=== PATIENT | male | born 1960 | race Caucasian/White ===

== ENCOUNTER → 2017-10-07 11:11 | Outpatient (CLI) | payer MEDICARE, SELFPAY ==
--- NOTE | 2017-10-07 11:21 | XR_ITS ---
XR shoulder RT min 2V HISTORY: ITS.REASON: RT SHOULDER PAIN ORDERING PHYSICIAN: Yoel Masterson MD PATIENT AGE: 57 years Comparison: None FINDINGS: No fracture or dislocation. No lytic or blastic change. There is normal mineralization. The joint spaces are well-preserved. No significant degenerative/arthritic changes. No erosive changes evident. IMPRESSION: Negative, no acute finding
--- NOTE | 2017-10-07 11:21 | XR_ITS ---
EXAM: XR cervical spine 5V HISTORY: Neck pain radiating into the right shoulder ITS.REASON: RT SHOULDER PAIN ORDERING PHYSICIAN: Yoel Masterson MD PATIENT AGE: 57 years FINDINGS: There is normal alignment. There is degenerative disc disease at C5-C6 and C6-C7. C7 is not well delineated due to overlying soft tissues. Is mild foraminal narrowing on the right C5-C6 from uncovertebral and facet hypertrophy and on the left at C3-C4 C4-C5 and C5-C6 from facet and uncovertebral hypertrophy. Calcification is present posterior and superior to the C7 spinous process. No obvious fracture or dislocation. No lytic or blastic change. No evidence of cervical rib. Carotid artery calcifications are present. IMPRESSION: Degenerative disc disease with facet arthritic changes as described above with foraminal narrowing on the right at C5-C6 and on the left from C3 to C6.
== END ==
PROVIDERS: PCP Pain Medicine Interventional Pain Medicine; Visit Provider Pain Medicine Interventional Pain Medicine
DX: M25.511 Pain in right shoulder (principal)
CPT/HCPCS: 72050; 73030

== ENCOUNTER 2018-01-21 08:00 | Outpatient (RCR) | payer MEDICARE, SELFPAY | END 2018-01-21 08:01 | disposition home or self-care (01) | LOC: PT 08:00 | PROVIDERS: PCP Pain Medicine Interventional Pain Medicine; Visit Provider Orthopaedic Surgery | DX: M50.323 Other cervical disc degeneration at C6-C7 level (principal) | CPT/HCPCS: 97012; 97014; 97110; 97163; G0283 ==

== ENCOUNTER → 2018-05-05 11:01 | Outpatient (CLI) | payer MEDICARE, SELFPAY ==
--- NOTE | 2018-05-05 11:06 | XR_ITS ---
XR chest 2V HISTORY: ITS.REASON: COUGH,LLLRALES, smoker ORDERING PHYSICIAN: Darnell Elizabeth MD PATIENT AGE: 58 years COMPARISON: 04/22/2018 FINDINGS: Unremarkable cardiovascular structures. No lobar consolidation or collapse. There are old bilateral rib fractures. No acute bony findings. IMPRESSION: No change no acute finding
== END ==
PROVIDERS: PCP Internal Medicine; Visit Provider Internal Medicine
DX: R05 Cough (principal); R09.89 Other specified symptoms and signs involving the circulatory and respiratory systems
CPT/HCPCS: 71046

== ENCOUNTER 2019-11-27 12:58 | Emergency (ER) | payer MEDICARE, SELFPAY ==
[2019-11-27 12:59] VITALS: RESP 18; O2SAT 97; BMI 31.5
--- NOTE | 2019-11-27 13:03 | CT_ITS ---
PROCEDURE: CT HEAD/BRAIN WO CON CLINICAL INDICATION: NUMBNESS Right-sided facial numbness COMPARISON: No exams were available for comparison TECHNIQUE: Axial images obtained. All CT scans at the facility use one or more dose reduction, viz: automated exposure control, ma/kV adjustment per patient size (including targeted exams where dose is matched to indication, i.e. head), or iterative reconstruction technique. FINDINGS: No midline shift, mass effect, intracranial hemorrhage, hydrocephalus, or extra-axial fluid collection is evident. There is generalized atrophy with hypoattenuation of the periventricular white matter consistent with microangiopathic changes.. There are encephalomalacia changes in the right temporal lobe and there is an old right basal ganglia lacunar infarction. The calvarium has an unremarkable appearance. Prior right mastoid surgery no sinus air-fluid level. IMPRESSION: 1. No acute intracranial findings. 2. Chronic ischemic changes with old right-sided basal ganglia rib lacunar infarction and encephalomalacia change in the right temporal lobe Dictated by: Ronnie Rojo MD 11/27/2019 13:18 Electronically signed by Ronnie Rojo MD in [place] 11/27/2019 13:18
--- NOTE | 2019-11-27 13:05 | PC.NURSE ---
Pt to CT
--- NOTE | 2019-11-27 13:09 | XR_ITS ---
PROCEDURE: XR CHEST PORTABLE CLINICAL HISTORY: NUMBNESS Weakness, fatigue, smoker COMPARISON: CXR2V XR chest 2V from 04/22/2018 CXR2V XR chest 2V from 05/05/2018 FINDINGS: Prior CABG. Borderline cardiomegaly without failure. The lungs are clear without infiltrates, suspicious nodules, or pleural effusions. Old left-sided rib fractures IMPRESSION: No acute findings. Dictated by: Ronnie Rojo MD 11/27/2019 13:19 Electronically signed by Ronnie Rojo MD in [place] 11/27/2019 13:19
[2019-11-27 13:11] LABS: Basophils # 0.1 K/mm3 (0-0.2); Basophils % 0.5 % (0.1-2.0); Eosinophils # 0.2 K/mm3 (0.0-0.4); Eosinophils % 2.6 % (0.1-12.0); Hematocrit 49.9 % (42.0-52.0); Hemoglobin 17.3 g/dL (14.1-18.0); Lymphocytes # 1.9 K/mm3 (0.7-4.5); Lymphocytes % 21.1 % (10-50); Mean Corpuscular HGB Conc 34.6 g/dL (31.8-35.4); Mean Corpuscular Hemoglobin 31.8 pg (27.0-31.2); Mean Corpuscular Volume 91.8 fl (80-94); Mean Platelet Volume 10.1 fl (7.4-10.4); Monocytes # 0.5 K/mm3 (0.1-1.0); Monocytes % 5.8 % (1.7-9.3); Neutrophils # 6.4 K/mm3 (1.8-7.8); Platelet Count 178 K/mm3 (142-424); Red Blood Count 5.44 M/mm3 (4.60-6.20); Red Cell Distribution Width 13.9 % (11.5-17.5); White Blood Count 9.1 K/mm3 (4.8-10.8)
[2019-11-27 13:16] LABS: Chloride 106 mmol/L (98-107); Potassium 3.5 mmoL/L (3.5-5.1); Sodium 141 mmol/L (136-145)
[2019-11-27 13:18] LABS: Alanine Aminotransferase 23 U/L (12-78); Aspartate Amino Transferase 25 U/L (17-59); Blood Urea Nitrogen 13 mg/dl (9-20); Creatinine Clearance Estimated 142 mL/min (50-200); Estimated Glomerular Filt Rate 99 ml/min (>60); GFR (African American) 120 ML/MIN (>60)
[2019-11-27 13:19] LABS: Albumin Level 4.7 g/dl (3.5-5.0); Albumin/Globulin Ratio 1.5 (1.1-1.8); Alkaline Phosphatase 66 U/L (38-126); Anion Gap 12.5 mEq/L (5-15); Bilirubin,Total 0.6 mg/dl (0.2-1.3); Calcium 9.6 mg/dl (8.4-10.2); Carbon Dioxide 26 mmol/L (22.0-30.0); Globulin 3.2 g/dL (1.3-3.2); Glucose 180 mg/dl (74-100); Total Protein,Serum 7.9 g/dl (6.3-8.2)
--- NOTE | 2019-11-27 13:25 | HMH.EDGENADL ---
ED Disposition Clinical Impression: Neck pain Headache Qualifiers: Headache type: unspecified Headache chronicity pattern: acute headache Intractability: not intractable Qualified Code(s): R51 - Headache Disposition: Home, Self-Care Condition on Discharge: Good Instructions: DI for Neck Pain, DI for Headache Additional Instructions: Return to the emergency department if symptoms return or new symptoms such as numbness or weakness of the extremities, difficulty speaking, or visual disturbance. - Critical Care Critical Care Time: No Attestation: On , the high probability of a clinically significant, sudden or life threatening deterioration of the following system(s) required my full and direct attention, intervention and personal management. The time I documented below is in addition to time spent performing reported procedures but includes the following listed in this critical care notation. Medical Decision Making - George Inquiry Pt receiving controlled substance: No Vital Signs: 11/27/19 12:59 Respiratory Rate 18 02 Sat by Pulse Oximetry 97 Oxygen Delivery Method Room Air - Lab Data Lab Results 11/27/19 13:03: WBC 9.1, RBC 5.44, Hgb 17.3, Hct 49.9, MCV 91.8, MCH 31.8 H, MCHC 34.6, RDW 13.9, Plt Count 178, MPV 10.1, Neut % (Auto) 70.0, Lymph % (Auto) 21.1, Rankin % (Auto) 5.8, Eos % (Auto) 2.6, Baso % (Auto) 0.5, Neut # (Auto) 6.4, Lymph # (Auto) 1.9, Rankin # (Auto) 0.5, Eos # (Auto) 0.2, Baso # (Auto) 0.1 11/27/19 13:03: Sodium 141, Potassium 3.5, Chloride 106, Carbon Dioxide 26, Anion Gap 12.5, BUN 13, Creatinine 0.80, Estimated Creat Clear 142, Estimated GFR 99, Est GFR ( Amer) 120, Glucose 180 H, Calcium 9.6, Total Bilirubin 0.6, AST 25, ALT 23, Alkaline Phosphatase 66, Troponin I < 0.01, Total Protein 7.9, Albumin 4.7, Globulin 3.2, Albumin/Globulin Ratio 1.5 11/27/19 13:06: PT 11.0, INR 1.08, APTT 23.0 L Result diagrams: 11/27/19 13:03 11/27/19 13:03 Orders (Tests/Meds): ORDERS Category Date Time Status Troponin I Q3H Lab 11/27/19 16:15 Ordered Troponin I Q3H Lab 11/27/19 19:15 Ordered - Radiology Data #1 Image(s): Chest Image Reviewed: Yes I have reviewed radiologist's interpretation Preliminary Findings: Normal/NAD - CT Data CT Scan: Head Time Received: 13:[address] Reviewed: Yes: I have viewed the radiologist's interpretation Findings Narrative: PROCEDURE: CT HEAD/BRAIN WO CON CLINICAL INDICATION: NUMBNESS Right-sided facial numbness COMPARISON: No exams were available for comparison TECHNIQUE: Axial images obtained. All CT scans at the facility use one or more dose reduction, viz: automated exposure control, ma/kV adjustment per patient size (including targeted exams where dose is matched to indication, i.e. head), or iterative reconstruction technique. FINDINGS: No midline shift, mass effect, intracranial hemorrhage, hydrocephalus, or extra-axial fluid collection is evident. There is generalized atrophy with hypoattenuation of the periventricular white matter consistent with microangiopathic changes.. There are encephalomalacia changes in the right temporal lobe and there is an old right basal ganglia lacunar infarction. The calvarium has an unremarkable appearance. Prior right mastoid surgery no sinus air-fluid level. IMPRESSION: 1. No acute intracranial findings. 2. Chronic ischemic changes with old right-sided basal ganglia rib lacunar infarction and encephalomalacia change in the right temporal lobe Dictated by: Ronnie Rojo MD 11/27/2019 13:18 Electronically signed by Ronnie Rojo MD in [place] 11/27/2019 13:18 - ECG Data Tracing #1 EKG interpreted by Jhonny Ibrahim MD: Rhythm: sinus Rate: 81 [place]: Left Ectopy: none Conduction: normal ST Segment Changes: none T Wave Changes: none Q Waves: none Poor R wave progression LVH Baseline artifact and wander present, but I consider the EKG terrance
--- NOTE | 2019-11-27 13:29 | ECG_ITS ---
APPROVED REPORT Exam: Resting ECG HR:81 bpm ECG Measurements Heart Rate 81 AXES IN 146 P 73 QRSd 92 QRS -64 QT 384 T -84 QTc 446 <Conclusion> Normal sinus rhythm Left anterior fascicular block Moderate voltage criteria for LVH, may be normal variant Nonspecific ST and T wave abnormality Abnormal ECG Electronically signed by : Og Metzger, 11/27/2019 17:51:16
[2019-11-27 13:36] LABS: Troponin I < 0.01 ng/ml (0.00-0.034)
[2019-11-27 13:37] LABS: INR 1.08 (0.9-1.1)
[2019-11-27 14:13] VITALS: BP 142/85; PULSE 80; RESP 18; TEMP 36.8; O2SAT 99
[2019-12-16 09:32] LABS: POC Glucose,Bedside 165 (70-110)
== END 2019-11-27 14:14 | disposition home or self-care (01) ==
PROVIDERS: Emergency Provider Emergency Medicine; PCP Internal Medicine
DX: M54.2 Cervicalgia (principal); R51 Headache; E11.9 Type 2 diabetes mellitus without complications; E78.5 Hyperlipidemia, unspecified; I10 Essential (primary) hypertension; F17.210 Nicotine dependence, cigarettes, uncomplicated; Z86.73 Personal history of transient ischemic attack (TIA), and cerebral infarction without residual deficits; Z95.1 Presence of aortocoronary bypass graft; D68.9 Coagulation defect, unspecified
CPT/HCPCS: 70450; 71045; 80053; 82962; 84484; 85025; 85610; 85730; 93005; 99283

== ENCOUNTER 2020-04-18 19:15 | Emergency (ER) | payer MEDICARE, SELFPAY ==
--- NOTE | 2020-04-18 19:14 | ECG_ITS ---
APPROVED REPORT Exam: Resting ECG HR:84 bpm ECG Measurements Heart Rate 84 AXES OR 162 P 54 QRSd 96 QRS -66 QT 400 T 77 QTc 472 Conclusion Normal sinus rhythm Left atrial abnormality Left anterior fascicular block Left ventricular hypertrophy Prolonged QT Abnormal ECG Electronically signed by : Claudy Bush, 04/20/2020 10:21:26
[2020-04-18 19:16] VITALS: BP 188/110; PULSE 81; RESP 19; TEMP 36.7; O2SAT 97; BMI 33.2
--- NOTE | 2020-04-18 19:21 | XR_ITS ---
PROCEDURE: XR CHEST 2V CLINICAL HISTORY: chest pain COMPARISON: CR CXR2V XR chest 2V from 04/22/2018 DX CXR2V XR chest 2V from 05/05/2018 CR XR CHEST PORTABLE from 11/27/2019 FINDINGS: Borderline cardiomegaly without failure. There has been a prior median sternotomy with atrial appendage clipping. The lungs are clear without infiltrates, suspicious nodules, or pleural effusions. There are multiple old left-sided rib fractures. IMPRESSION: As above, no change no acute finding Dictated by: Ronnie Rojo MD 04/19/2020 05:28 Ronnie Rojo MD in [place] 04/19/2020 05:28
--- NOTE | 2020-04-18 19:25 | CT_ITS ---
PROCEDURE: CT HEAD/BRAIN WO CON CLINICAL INDICATION: headache Severe headache with dizziness COMPARISON: CT CT HEAD/BRAIN WO CON from 11/27/2019 TECHNIQUE: Axial images obtained. All CT scans at the facility use one or more dose reduction, viz: automated exposure control, ma/kV adjustment per patient size (including targeted exams where dose is matched to indication, i.e. head), or iterative reconstruction technique. FINDINGS: No midline shift, mass effect, intracranial hemorrhage, hydrocephalus, or extra-axial fluid collection is evident. There are encephalomalacia changes in the right temporal lobe. There is an old lacunar infarction in the right internal capsule. Postsurgical changes from right mastoidectomy. Mild mucosal thickening right ethmoid sinus. IMPRESSION: 1. No acute intracranial findings. 2. Chronic changes as described above Dictated by: Ronnie Rojo MD 04/19/2020 11:48 Ronnie Rojo MD in [place] 04/19/2020 11:48
--- NOTE | 2020-04-18 19:26 | CT_ITS ---
PROCEDURE: CT ANGIO CHEST CLINCIAL INDICATION: chest pain, time for dissection, chest pain and dizziness, evaluate for dissection COMPARISON: No exams were available for comparison TECHNIQUE: IV Contrast: 70ML Isovue 370 Axial images obtained with sagittal and coronal reformats. All CT scans at the facility use one or more dose reduction, viz: automated exposure control, ma/kV adjustment per patient size (including targeted exams where dose is matched to indication, i.e. head), or iterative reconstruction technique. FINDINGS: No evidence of pulmonary emboli. Has been a prior CABG with diffuse coronary artery calcification noted. There is tortuosity of the thoracic aorta. No evidence of aortic dissection or aneurysm. No mediastinal or hilar mass. Left atrial occlusion device present there are few scattered small mediastinal lymph nodes. There is a 4 mm noncalcified nodule in the left upper lobe laterally. There is a 1.9 cm left adrenal myelolipoma. There are degenerative changes in the thoracic spine. IMPRESSION: 1. No acute finding. 2. Nonemergent findings as described above. Dictated by: Ronnie Rojo MD 04/19/2020 12:10 Ronnie Rojo MD in [place] 04/19/2020 12:10
--- NOTE | 2020-04-18 19:27 | CT_ITS ---
Procedure: CT ANGIO NECK CTA HEAD CLINICAL HISTORY: new headache and dizziness COMPARISON: CT CT ANGIO HEAD from 04/18/2020 TECHNIQUE: IV Contrast: 100ml Isovue 370 Axial images obtained with sagittal and coronal reformats. All CT scans at the facility use one or more dose reduction, viz: automated exposure control, ma/kV adjustment per patient size (including targeted exams where dose is matched to indication, i.e. head), or iterative reconstruction technique. FINDINGS: CTA neck: Atherosclerotic changes are present in the aortic arch with tortuosity of the great vessels. Right subclavian artery is tortuous with no significant narrowing. Right vertebral artery patent from the right subclavian with minimal calcific plaque at its ostium with 20 percent stenosis. Right common and internal cervical carotid: Calcific plaque is present at the proximal right ICA causing approximately 25 percent stenosis. No ulcerations apparent. Left carotid: The common carotid has an unremarkable appearance. Nonocclusive calcific plaque is present at the origin of the left ICA and in the carotid bulb. The cervical portion of the left IC is otherwise unremarkable. Left vertebral artery: There is some plaque at the ostium of the left vertebral without significant stenosis. There is some artifact at this area making adequate evaluation of the ostium of the vertebral on the left somewhat limited. No dissection apparent. CTA head: Calcific plaque is present in the cavernous portion and clinoid and supraclinoid portion of the right and left ICA. Less than 50 percent stenosis present at these areas. There is a small amount of soft plaque in the cavernous portion of the left ICA with less than 50 percent stenosis. No dissection. There is some mild fusiform dilatation of the basilar artery just proximal to the bifurcation measuring approximately 4 mm in AP dimension. The basilar artery has a irregular contour. There is mild dilatation of the basilar tip also fusiform in nature measuring approximately 4 mm by 5 mm. No enhancing lesions are evident. IMPRESSION: 1. No significant carotid stenosis or dissection. 2. Atheromatous changes with calcific and soft plaque within the cavernous portion and clinoid portions of the ICAs on both sides with less than 50 percent stenosis. 3. 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 This does not represent a saccular type of aneurysm. Dictated by: Ronnie Rojo MD 04/19/2020 12:05 Ronnie Rojo MD in [facility] 04/19/2020 12:05
--- NOTE | 2020-04-18 19:28 | HMH.EDGENADL ---
ED Disposition Condition on Discharge: Good - Critical Care Critical Care Time: No <Trace Howard - Last Filed: 04/18/20 19:57> <Chuck Lees - Last Filed: 04/18/20 22:15> Clinical Impression: Dizziness, Basilar artery stenosis, Aneurysm of basilar artery, TIA (transient ischemic attack) Chest pain Qualifiers: Chest pain type: precordial pain Qualified Code(s): R07.2 - Precordial pain Headache Qualifiers: Headache type: unspecified Headache chronicity pattern: acute headache Intractability: not intractable Qualified Code(s): R51.9 - Headache, unspecified Vertebral artery stenosis Qualifiers: Laterality: bilateral Qualified Code(s): I65.03 - Occlusion and stenosis of bilateral vertebral arteries Disposition: Home, Self-Care Instructions: DI for Transient Ischemic Attack Additional Instructions: see pcp in am for close follow up and neurosurg - Referrals: PCP,No [Primary Care Provider] - Attestation: On 04/18/20, the high probability of a clinically significant, sudden or life threatening deterioration of the following system(s) required my full and direct attention, intervention and personal management. The time I documented below is in addition to time spent performing reported procedures but includes the following listed in this critical care notation. Medical Decision Making - Medical Records Medical records reviewed: Yes: I reviewed the patient's medical records. - George Inquiry Pt receiving controlled substance: No - Lab Data Result diagrams: 04/18/20 19:15 04/18/20 19:15 <Trace Howard - Last Filed: 04/18/20 19:57> - Lab Data Lab results reviewed: Yes: I reviewed the patient's lab results. Result diagrams: 04/18/20 19:15 04/18/20 19:15 - CT Data CT Scan: Head, Chest, Other (cta brain/neck) Time Received: 22:[address] Reviewed: Yes: I have viewed the radiologist's interpretation Preliminary Findings: Abnormal (see report ) - ECG Data Tracing #1 Normal Sinus Rhythm: Yes Ischemic changes: non-specific ST-T wave changes - Physician Consults Physician Consulted: [place] - stroke Reason -: Pt condition Additional Consult: patricia- neurosurg Reason -: Pt condition - YAYO Score for Non-Stemi Age of Patient: 50-59 years old Heart Rate: 70-89 bpm Systolic Blood Pressure: 160-199 mmHg Serum Creatinine: 0.80-1.19 mg/dl CHF [place] Class: I-No CHF Other Risk Factors: None Non-Stemi Risk Score: 67 <Chuck Lees - Last Filed: 04/18/20 22:15> Vital Signs: 04/18/20 19:16 04/18/20 19:30 04/18/20 21:16 Temperature 98.1 F Temperature Source Oral Pulse Rate [Right Brachial] 81 85 Respiratory Rate 19 14 Blood Pressure [Left Arm] 162/98 H Blood Pressure [Right Arm] 188/110 H 140/87 Blood Pressure Mean [Left Arm] 119 Blood Pressure Mean [Right Arm] 136 104 Blood Pressure Source [Left Arm] Blood Pressure Source [Right Arm] Automatic Cuff Blood Pressure Position [Left Arm] Supine Blood Pressure Position [Right Arm] Sitting Sitting 02 Sat by Pulse Oximetry 97 96 Oxygen Delivery Method Room Air Room Air 04/18/20 21:46 04/18/20 22:03 Temperature Temperature Source Pulse Rate [Right Brachial] 76 75 Respiratory Rate 14 16 Blood Pressure [Left Arm] 152/121 H 175/98 H Blood Pressure [Right Arm] Blood Pressure Mean [Left Arm] 131 123 Blood Pressure Mean [Right Arm] Blood Pressure Source [Left Arm] Automatic Cuff Automatic Cuff Blood Pressure Source [Right Arm] Blood Pressure Position [Left Arm] Supine Sitting Blood Pressure Position [Right Arm] 02 Sat by Pulse Oximetry 99 97 Oxygen Delivery Method Room Air - Lab Data Lab Results 04/18/20 19:15: WBC 9.0, RBC 5.46, Hgb 17.5, Hct 52.2 H, MCV 95.6 H, MCH 32.1 H, MCHC 33.6, RDW 13.5, Plt Count 212, MPV 10.4, Neut % (Auto) 58.3, Lymph % (Auto) 32.4, [place] % (Auto) 6.1, Eos % (Auto) 2.3, Baso % (Auto) 0.9, Neut # (Auto) 5.2, Lymph # (Auto) 2.9, [place] # (Auto) 0.6, Eos # (Auto) 0
[2020-04-18 19:29] LABS: Basophils # 0.1 K/mm3 (0-0.2); Basophils % 0.9 % (0.1-2.0); Eosinophils # 0.2 K/mm3 (0.0-0.4); Eosinophils % 2.3 % (0.1-12.0); Hematocrit 52.2 % (42.0-52.0); Hemoglobin 17.5 g/dL (14.1-18.0); Lymphocytes # 2.9 K/mm3 (0.7-4.5); Lymphocytes % 32.4 % (10-50); Mean Corpuscular HGB Conc 33.6 g/dL (31.8-35.4); Mean Corpuscular Hemoglobin 32.1 pg (27.0-31.2); Mean Corpuscular Volume 95.6 fl (80-94); Mean Platelet Volume 10.4 fl (7.4-10.4); Monocytes # 0.6 K/mm3 (0.1-1.0); Monocytes % 6.1 % (1.7-9.3); Neutrophils # 5.2 K/mm3 (1.8-7.8); Neutrophils % 58.3 % (37.0-80.0); Platelet Count 212 K/mm3 (142-424); Red Blood Count 5.46 M/mm3 (4.60-6.20); Red Cell Distribution Width 13.5 % (11.5-17.5)
[2020-04-18 19:30] VITALS: BP 140/87; PULSE 85; RESP 14; O2SAT 96
[2020-04-18 19:38] LABS: Anion Gap 13.3 mEq/L (5-15); Blood Urea Nitrogen 20 mg/dl (9-20); Calcium 9.7 mg/dl (8.4-10.2); Carbon Dioxide 27 mmol/L (22.0-30.0); Chloride 104 mmol/L (98-107); Creatinine Clearance Estimated 152 mL/min (50-200); Estimated Glomerular Filt Rate 99 ml/min (>60); GFR (African American) 120 ML/MIN (>60); Glucose 175 mg/dl (74-100); Potassium 3.3 mmoL/L (3.5-5.1); Sodium 141 mmol/L (136-145)
[2020-04-18 19:50] LABS: NT Pro Brain Natriuretic Pep. 891 pg/mL (0-125); Troponin I < 0.01 ng/ml (0.00-0.034)
--- NOTE | 2020-04-18 20:12 | PC.NURSE ---
patient to CT
[2020-04-18 21:16] VITALS: BP 162/98
--- NOTE | 2020-04-18 21:39 | PC.NURSE ---
call placed to [facility] per dr ward.
--- NOTE | 2020-04-18 21:43 | PC.NURSE ---
on phone with dr whaley
[2020-04-18 21:46] VITALS: BP 152/121; PULSE 76; RESP 14; O2SAT 99
[2020-04-18 22:03] VITALS: BP 175/98; PULSE 75; RESP 16; O2SAT 97
[2020-04-18 22:34] VITALS: BP 178/95; PULSE 72; RESP 18; TEMP 36.6; O2SAT 98
== END 2020-04-18 22:33 | disposition home or self-care (01) ==
PROVIDERS: Emergency Provider Emergency Medicine
DX: G45.8 Other transient cerebral ischemic attacks and related syndromes (principal); I65.03 Occlusion and stenosis of bilateral vertebral arteries; E11.65 Type 2 diabetes mellitus with hyperglycemia; I10 Essential (primary) hypertension; E78.5 Hyperlipidemia, unspecified; F17.210 Nicotine dependence, cigarettes, uncomplicated; R06.02 Shortness of breath
CPT/HCPCS: 70450; 70496; 70498; 71046; 71275; 80048; 83880; 84484; 85025; 93005; 96365; 96375; 99283; Q9967

== ENCOUNTER 2020-11-11 17:19 | Emergency (ER) | payer MEDICARE, SELFPAY ==
[2020-11-11 17:20] VITALS: BP 189/104; PULSE 85; RESP 18; TEMP 36.8; O2SAT 98; BMI 32.0
--- NOTE | 2020-11-11 17:46 | HMH.EDGENADL ---
ED Disposition Clinical Impression: Essential hypertension, Opiate withdrawal, Palpitations Chronic pain Qualifiers: Chronic pain type: chronic pain syndrome Qualified Code(s): G89.4 - Chronic pain syndrome Disposition: Home, Self-Care Condition on Discharge: Fair Instructions: DI for High Blood Pressure, DI for Palpitations, DI for Drug or Alcohol Withdrawal Additional Instructions: Take your blood pressure medications when you arrive home. Follow-up with your primary care provider for further treatment of your blood pressure and chronic pain, call tomorrow to make appointment. Tylenol or ibuprofen for pain. Referrals: Provider,Referral, [Primary Care Provider] - - Critical Care Critical Care Time: No Attestation: On 11/11/20, the high probability of a clinically significant, sudden or life threatening deterioration of the following system(s) required my full and direct attention, intervention and personal management. The time I documented below is in addition to time spent performing reported procedures but includes the following listed in this critical care notation. Medical Decision Making - George Inquiry Pt receiving controlled substance: No Vital Signs: 11/11/20 17:20 11/11/20 18:04 Temperature 98.3 F Temperature Source Oral Pulse Rate 78 Pulse Rate [Left] 85 Respiratory Rate 18 Blood Pressure 185/101 H Blood Pressure [Right Arm] 189/104 H Blood Pressure Mean 142 Blood Pressure Mean [Right Arm] 132 02 Sat by Pulse Oximetry 98 97 Oxygen Delivery Method Room Air - Lab Data Lab Results 11/11/20 18:04: WBC 6.0, RBC 5.13, Hgb 15.7, Hct 46.4, MCV 90.3, MCH 30.5, MCHC 33.8, RDW 14.0, Plt Count 163, MPV 9.8, Neut % (Auto) 61.9, Lymph % (Auto) 28.5, [place] % (Auto) 6.5, Eos % (Auto) 2.2, Baso % (Auto) 0.8, Neut # (Auto) 3.7, Lymph # (Auto) 1.7, [place] # (Auto) 0.4, Eos # (Auto) 0.1, Baso # (Auto) 0.1 11/11/20 18:04: Sodium 140, Potassium 3.0 L, Chloride 105, Carbon Dioxide 27, Anion Gap 11.0, BUN 11, Creatinine 0.90, Estimated Creat Clear 126, Estimated GFR 86, Est GFR ( Amer) 105, Glucose 246 H, Calcium 8.9, Troponin I 0.02 Result diagrams: 11/11/20 18:04 11/11/20 18:04 Orders (Tests/Meds): ED MEDICATIONS Discontinued Medications Generic Name Dose Route Start Last Admin Trade Name Freq PRN Reason Stop Dose Admin Ketorolac Tromethamine 30 mg 11/11/20 17:57 11/11/20 18:08 Ketorolac 30mg/Ml Vial IV 11/11/20 17:58 30 mg ONCE ONE Administration Potassium Chloride 40 meq 11/11/20 18:58 11/11/20 19:11 Potassium Chloride 20meq Tab PO 11/11/20 18:59 40 meq ONCE ONE Administration ORDERS Category Date Time Status Chest XR 2 view (NOT portable) [XR chest 2V] Stat Exams 11/11/20 18:28 Taken Drug Screen,Urine Stat Lab 11/11/20 18:26 Ordered Troponin I Q3H Lab 11/11/20 21:00 Ordered Troponin I Q3H Lab 11/12/20 00:00 Ordered Urinalysis and Microscopic Stat Lab 11/11/20 18:26 Ordered - ECG Data Tracing #1 EKG interpreted by Jhonny Ibrahim MD: Rhythm: sinus Rate: 74 Moore: Left Ectopy: none Conduction: Left anterior fascicular block, QTC [address] Segment Changes: none T Wave Changes: none Q Waves: none LVH with repolarization abnormality. Poor R wave progression No evidence of acute ischemia or injury Prior electrocardiagrams reviewed. No change from prior tracings. - Reevaluation(s) Time: 19:16 Reevaluation #1: States that he feels much better after Toradol. Says that his pain is much better. His heart does not feel like it is beating hard anymore. He wants to be discharged. I discussed that his blood pressure remains elevated even with improvement in his pain and that we could treat his blood pressure in the emergency department. However, he refuses. He says he is due to take his blood pressure medications at home at this time and wants to be discharged so he can go home and take the medications there. He does not
[2020-11-11 18:04] VITALS: BP 185/101; PULSE 78; O2SAT 97
--- NOTE | 2020-11-11 18:11 | ECG_ITS ---
APPROVED REPORT Exam: Resting ECG HR:74 bpm ECG Measurements Heart Rate 74 AXES MT 172 P 45 QRSd 102 QRS -64 QT 486 T 76 QTc 539 Conclusion Normal sinus rhythm Left anterior fascicular block Left ventricular hypertrophy with repolarization abnormality Prolonged QT Abnormal ECG Electronically signed by : Claudy Bush, 11/12/2020 17:32:31
[2020-11-11 18:15] LABS: Basophils # 0.1 K/mm3 (0-0.2); Basophils % 0.8 % (0.1-2.0); Eosinophils # 0.1 K/mm3 (0.0-0.4); Eosinophils % 2.2 % (0.1-12.0); Hematocrit 46.4 % (42.0-52.0); Hemoglobin 15.7 g/dL (14.1-18.0); Lymphocytes # 1.7 K/mm3 (0.7-4.5); Lymphocytes % 28.5 % (10-50); Mean Corpuscular HGB Conc 33.8 g/dL (31.8-35.4); Mean Corpuscular Hemoglobin 30.5 pg (27.0-31.2); Mean Corpuscular Volume 90.3 fl (80-94); Mean Platelet Volume 9.8 fl (7.4-10.4); Monocytes # 0.4 K/mm3 (0.1-1.0); Monocytes % 6.5 % (1.7-9.3); Neutrophils # 3.7 K/mm3 (1.8-7.8); Neutrophils % 61.9 % (37.0-80.0); Platelet Count 163 K/mm3 (142-424); Red Blood Count 5.13 M/mm3 (4.60-6.20)
[2020-11-11 18:22] LABS: Blood Urea Nitrogen 11 mg/dl (9-20); Calcium 8.9 mg/dl (8.4-10.2); Carbon Dioxide 27 mmol/L (22.0-30.0); Chloride 105 mmol/L (98-107); Creatinine Clearance Estimated 126 mL/min (50-200); Estimated Glomerular Filt Rate 86 ml/min (>60); GFR (African American) 105 ML/MIN (>60); Glucose 246 mg/dl (74-100); Sodium 140 mmol/L (136-145)
--- NOTE | 2020-11-11 18:28 | XR_ITS ---
PROCEDURE INFORMATION: Exam: XR Chest Exam date and time: 11/11/20 06:28 PM Age: 60 years old Clinical indication: Other: HTN; Prior surgery; Surgery date: 6+ months; Patient HX: High BP, on BP meds, HX open heart SX 1 year ago; Additional info: High BP, heart pounding TECHNIQUE: Imaging protocol: XR of the chest. Views: 2 views. COMPARISON: CR XR CHEST 2V 04/18/20 07:22 PM FINDINGS: Lungs: Hyperexpanded lungs without infiltrate. Pleural spaces: Unremarkable. No pleural effusion. No pneumothorax. Heart/Mediastinum: Left atrial appendage clip. Bones/joints: Median sternotomy. Multiple healed left-sided rib fractures. IMPRESSION: No acute cardiopulmonary disease.
[2020-11-11 18:34] LABS: Troponin I 0.02 ng/ml (0.00-0.034)
--- NOTE | 2020-11-11 19:13 | PC.NURSE ---
Patient stated to Dr. Ibrahim that he wants to be discharged at this time and that he will take his blood pressure medication at home.
[2020-11-11 19:25] VITALS: BP 178/101; PULSE 78; RESP 18; TEMP 36.8; O2SAT 97
== END 2020-11-11 19:26 | disposition home or self-care (01) ==
PROVIDERS: Emergency Provider Emergency Medicine
DX: I16.0 Hypertensive urgency (principal); F11.23 Opioid dependence with withdrawal; G89.4 Chronic pain syndrome; E11.9 Type 2 diabetes mellitus without complications; E78.5 Hyperlipidemia, unspecified; F17.210 Nicotine dependence, cigarettes, uncomplicated
CPT/HCPCS: 71046; 80048; 84484; 85025; 93005; 99283

== ENCOUNTER → 2020-11-26 08:07 | Outpatient (POV) | payer MEDICARE, SELFPAY ==
[2020-11-26 08:38] VITALS: BP 188/100; PULSE 78; RESP 18; O2SAT 97; BMI 32.4
--- NOTE | 2020-11-26 08:54 | HMH.PMCON ---
Assessment and Plan (1) Epididymitis Status: Chronic Category: Medical Code(s): N45.1 - Epididymitis (2) Neck pain Status: Chronic Category: Medical Code(s): M54.2 - Cervicalgia - Assessment and plan all Dx Assessment and Plan for all problems:: Patient I did discuss injective therapy today. We also discussed possibility of intrathecal therapy for his chronic neck pain. Patient is not interested in oral medications at this time. This does give him significant relief of his pain. Unfortunately the patient has been advised would not be able to prescribe him the medications that give him the most relief. We would be happy to provide him with intrathecal therapy. Due to the patient's history of noncompliance and a pain management clinic, we would not be able to provide him with oral medications. He has been advised we will be happy to follow-up with him in the future if he changes his mind regarding intrathecal therapy versus injective therapy. Patient has been instructed to contact the clinic with any concerns before the next appointment. He was also given educational information regarding other pain management clinics that may be able to assist him with oral medication management. Dr. Wallis has reviewed this note and agrees with this plan of care. This note was dictated using voice recognition software and make contain errors or omissions. HPI - Data of Consult Patient: new to practice Consult date: 11/26/20 Requesting Physician: Jenna Stephens APRN Primary Care Provider: Referral Provider, MD - Consult Narrative Reason for consult: Epididymitis, neck pain History of present illness: Mr. Vargas is a 60 year old male who presents today for consultation for chronic right groin pain as well as chronic neck pain. Patient says this pain is been ongoing for many years. He says his neck and shoulder pain have been present for the last 9 to 10 years, however, his groin pain is intermittent. Patient has undergone multiple rounds of injections along with spinal cord stimulation for his right groin pain. He says he did not get any relief. He was also seen in a pain management clinic in [facility]. He was seen by Dr. Sharri Stuart. He says that he was getting oxycodone at this clinic. He has been prescribed MS Contin as well as [place] in the past. He has never gotten any significant relief. He unfortunately did not follow-up with a random pill count. As result, he was discharged from the clinic. Patient is here today to discuss possible establishment of care along with injective therapy and possible medication management. Patient says his pain is worse today in the right groin in comparison to his neck. Movement makes the pain worse. He rates his pain a 7 out of 10. He says the pain has progressively worsened because he has not been taking any medication. Spinal cord stimulation did not give him any relief of his pain. He is not gotten any relief from any conservative therapies. The only thing that has given him relief is oral medications in conjunction with injections. CC: Jenna Stephens APRN [facility] History I have reviewed the patient's past medical history: Yes Medical History: Reports:: Diabetes Mellitus Type 2, Hyperlipidemia, Hypertension Denies:: Diabetes Mellitus Type 1 *Have you ever received a pneumonia vaccine?: No *Have you received a flu vaccine this season?: Yes Other Medical History: Reports: Arthritis, Other (sleep d/o) Other Surgeries: Yes: Other (non listed) - *Social History Smoking Status: Current every day smoker Tobacco Type: cigarettes # Packs/Day (cigarettes): 1 Alcohol Intake: never *Occupational Status:: disabled *Travel in the last 8 weeks: None Family Hx:: No significant family history Review of Systems - Review of Systems Review of Systems General: No recent weight changes, no fever, no sleep disturbances Respiratory: No cough, no shortness of air, no re
== END ==
PROVIDERS: Visit Provider Clinical Nurse Specialist Family Health
DX: N45.1 Epididymitis (principal); M54.2 Cervicalgia
CPT/HCPCS: 99202; G0463

== ENCOUNTER → 2021-07-15 16:00 | Outpatient (CLI) | payer MEDICARE, SELFPAY ==
[2021-07-15 13:34] LABS: Eosinophils % 1.9 % (0.1-12.0); Hematocrit 48.6 % (42.0-52.0); Hemoglobin 15.5 g/dL (14.1-18.0); Lymphocytes # 1.6 K/mm3 (0.7-4.5); Mean Corpuscular HGB Conc 31.9 g/dL (31.8-35.4); Mean Corpuscular Hemoglobin 30.7 pg (27.0-31.2); Mean Corpuscular Volume 96.1 fl (80-94); Mean Platelet Volume 11.6 fl (7.4-10.4); Monocytes # 0.4 K/mm3 (0.1-1.0); Monocytes % 6.4 % (1.7-9.3); Neutrophils # 3.6 K/mm3 (1.8-7.8); Neutrophils % 62.7 % (37.0-80.0); Platelet Count 169 K/mm3 (142-424); Red Blood Count 5.06 M/mm3 (4.60-6.20); Red Cell Distribution Width 14.2 % (11.5-17.5); White Blood Count 5.7 K/mm3 (4.8-10.8)
[2021-07-15 13:35] LABS: Basophils # 0.1 K/mm3 (0-0.2); Eosinophils # 0.1 K/mm3 (0.0-0.4)
[2021-07-15 14:23] LABS: Chloride 100 mmol/L (98-107)
[2021-07-15 14:24] LABS: Sodium 135 mmol/L (136-145)
[2021-07-15 14:26] LABS: Alanine Aminotransferase 37 U/L (12-78); Albumin/Globulin Ratio 1.5 (1.1-1.8); Alkaline Phosphatase 97 U/L (38-126); Aspartate Amino Transferase 40 U/L (17-59); Bilirubin,Total 0.5 mg/dl (0.2-1.3); Blood Urea Nitrogen 17 mg/dl (9-20); Carbon Dioxide 26 mmol/L (22.0-30.0); Estimated Glomerular Filt Rate 86 ml/min (>60); GFR (African American) 104 ML/MIN (>60); Globulin 2.6 g/dL (1.3-3.2); Total Protein,Serum 6.6 g/dl (6.3-8.2)
[2021-07-15 14:27] LABS: Calcium 8.4 mg/dl (8.4-10.2); Glucose 330 mg/dl (74-100)
[2021-07-15 14:44] LABS: 25-OH Vitamin D, Total 51.6 ng/mL (30-100)
[2021-07-15 14:59] LABS: Thyroid Stimulating Hormone 0.43 uIU/mL (0.465-4.68)
[2021-07-15 15:59] LABS: Hemoglobin A1C 11.5 % (4.0-6.0)
[2021-07-17 11:13] LABS: C-Peptide 3.9 ng/mL (1.1-4.4)
== END ==
PROVIDERS: Visit Provider Physician Assistant
DX: E11.9 Type 2 diabetes mellitus without complications (principal); N20.0 Calculus of kidney; E01.0 Iodine-deficiency related diffuse (endemic) goiter; R53.83 Other fatigue; E66.9 Obesity, unspecified; Z68.31 Body mass index [BMI] 31.0-31.9, adult; Z79.4 Long term (current) use of insulin
CPT/HCPCS: 80053; 82043; 82306; 83036; 84443; 84681; 85025

== ENCOUNTER → 2021-07-23 13:22 | Outpatient (CLI) | payer MEDICARE, SELFPAY ==
--- NOTE | 2021-07-23 13:22 | US_ITS ---
FINAL REPORT CLINICAL HISTORY: thyromegaly FINDINGS: Sonographic images of the thyroid were obtained. The right lobe of the thyroid measures 1.9 x 4.5 x 2.0 cm. The left lobe of the thyroid measures 1.4 x 3.7 x 1.6 cm. Multiple thyroid nodules are seen bilaterally. There is a solid, isoechoic nodule in the mid right thyroid lobe measuring 8 x 5 x 5 mm consistent with TI-RADS Category 3. There is a solid isoechoic nodule in the lower pole of the right thyroid lobe measuring 7 x 6 x 6 mm consistent with TI-RADS Category 4. Several other smaller nodules are seen in the right lobe. IMPRESSION: Thyroid nodules as detailed above. No follow-up is recommended. Reviewed, Interpreted and Dictated by Kirt Escobar III, MD Transcribed by Kendy Hall Authenticated by Kirt Escobar III, MD on 07/23/2021 02:56:23 PM [facility]
== END ==
PROVIDERS: PCP Physician Assistant; Visit Provider Physician Assistant
DX: E01.0 Iodine-deficiency related diffuse (endemic) goiter (principal)
CPT/HCPCS: 76536

== ENCOUNTER → 2021-07-24 06:41 | Outpatient (CLI) | payer MEDICARE, SELFPAY ==
--- NOTE | 2021-07-24 06:42 | CT_ITS ---
FINAL REPORT CLINICAL HISTORY: right flank pain, pain with urination x2 weeks FINDINGS: Technique: Axial images through the abdomen and pelvis were performed by computed tomography. This study was performed with techniques to keep radiation doses as low as reasonably achievable (ALARA). Individualized dose reduction techniques using automated exposure control or adjustment of mA and/or kV according to the patient's size were employed. Abdomen: There is mild bibasilar atelectasis or scar. The liver is normal in size and attenuation. The patient is status post cholecystectomy. The spleen is unremarkable. The pancreas is normal. There is a left adrenal nodule containing fat consistent with a myelolipoma. The aorta is normal in caliber. There are multiple less than 3 mm renal stones. Note is made of moderate vascular calcification. Pelvis: The appendix is unremarkable. Postoperative changes are seen in the right lower pelvis. There is sigmoid diverticulosis without evidence of diverticulitis. No ureteral stones are identified. The urinary bladder is unremarkable. There is no free fluid or adenopathy. IMPRESSION: Nephrolithiasis without evidence of hydronephrosis. No ureteral stones are identified. Reviewed, Interpreted and Dictated by Kirt Escobar III, MD Transcribed by Kendy Hall Authenticated by Kirt Escobar III, MD on 07/24/2021 07:52:17 AM [facility]
== END ==
PROVIDERS: PCP Physician Assistant; Visit Provider Physician Assistant
DX: R10.9 Unspecified abdominal pain (principal)
CPT/HCPCS: 74176

== ENCOUNTER 2021-08-14 18:54 | Emergency (ER) | payer MEDICARE, SELFPAY ==
[2021-08-14 19:55] VITALS: BP 0/0; PULSE 0; RESP 0; TEMP -17.7; TEMP 0; O2SAT 0
== END 2021-08-14 19:59 | disposition left against medical advice (07) ==
PROVIDERS: Emergency Provider Emergency Medicine; PCP Physician Assistant
DX: Z53.21 Procedure and treatment not carried out due to patient leaving prior to being seen by health care provider (principal)
CPT/HCPCS: 99211

== ENCOUNTER → 2021-08-15 13:49 | Outpatient (CLI) | payer MEDICARE, SELFPAY ==
--- NOTE | 2021-08-15 14:09 | XR_ITS ---
FINAL REPORT CLINICAL HISTORY: cough, shortness of breath, patient states he thinks he has pneumonia. COMPARISON: 11/11/2020 FINDINGS: TWO VIEWS OF THE CHEST There is cardiomegaly. The patient is status post median sternotomy. The lungs are clear. There is no pneumothorax. Multiple chronic left posterior rib fractures are identified. IMPRESSION: No acute cardiopulmonary process. Reviewed, Interpreted and Dictated by Kirt Escobar III, MD Transcribed by Kendy Hall Authenticated by Kirt Escobar III, MD on 08/15/2021 04:06:13 PM [facility]
[2021-08-15 15:14] LABS: Basophils % 0.7 % (0.1-2.0); Eosinophils # 0.2 K/mm3 (0.0-0.4); Eosinophils % 3.4 % (0.1-12.0); Hematocrit 49.3 % (42.0-52.0); Hemoglobin 15.4 g/dL (14.1-18.0); Lymphocytes % 35.3 % (10-50); Mean Corpuscular HGB Conc 31.3 g/dL (31.8-35.4); Mean Corpuscular Hemoglobin 29.4 pg (27.0-31.2); Mean Corpuscular Volume 93.8 fl (80-94); Mean Platelet Volume 10.5 fl (7.4-10.4); Monocytes # 0.4 K/mm3 (0.1-1.0); Monocytes % 6.1 % (1.7-9.3); Neutrophils # 3.1 K/mm3 (1.8-7.8); Neutrophils % 54.5 % (37.0-80.0); Platelet Count 238 K/mm3 (142-424); Red Blood Count 5.25 M/mm3 (4.60-6.20); Red Cell Distribution Width 14.6 % (11.5-17.5); White Blood Count 5.8 K/mm3 (4.8-10.8)
[2021-08-15 15:34] LABS: Chloride 106 mmol/L (98-107); Sodium 140 mmol/L (136-145)
[2021-08-15 15:36] LABS: Blood Urea Nitrogen 19 mg/dl (9-20); Estimated Glomerular Filt Rate 99 ml/min (>60); GFR (African American) 119 ML/MIN (>60)
[2021-08-15 15:37] LABS: Alanine Aminotransferase 24 U/L (12-78); Albumin Level 4.1 g/dl (3.5-5.0); Albumin/Globulin Ratio 1.4 (1.1-1.8); Alkaline Phosphatase 92 U/L (38-126); Aspartate Amino Transferase 23 U/L (17-59); Bilirubin,Total 0.5 mg/dl (0.2-1.3); Carbon Dioxide 23 mmol/L (22.0-30.0); Glucose 138 mg/dl (74-100); Total Protein,Serum 7.1 g/dl (6.3-8.2)
== END ==
PROVIDERS: PCP Physician Assistant; Visit Provider Physician Assistant
DX: M54.2 Cervicalgia (principal); R06.02 Shortness of breath; R05.9 Cough, unspecified
CPT/HCPCS: 36415; 71046; 80053; 85025

== ENCOUNTER → 2021-08-22 10:06 | Outpatient (CLI) | payer MEDICARE, SELFPAY ==
--- NOTE | 2021-08-22 10:06 | CT_ITS ---
FINAL REPORT CLINICAL HISTORY: new onset WILKINS, nausea, vertigo COMPARISON: April 18, 2020 FINDINGS: CT HEAD/BRAIN W/O CONTRAST Axial images of the head were obtained without contrast. Coronal reformatted images were also obtained. This study was performed with techniques to keep radiation doses as low as reasonably achievable (ALARA). Individualized dose reduction techniques using automated exposure control or adjustment of mA and/or kV according to the patient's size were employed. There is generalized age-appropriate atrophy. Periventricular low-attenuation areas are seen consistent with mild chronic ischemic changes. There is no evidence of intracranial hemorrhage or mass. There is no evidence of acute infarct. There is a small chronic lacunar infarct in the right internal capsule. There is right temporal encephalomalacia which is stable. There is no evidence of shift of the midline structures. There are postoperative changes from right mastoidectomy. IMPRESSION: Atrophy and mild periventricular chronic ischemic changes. No acute intracranial abnormality identified. Overall stable exam. Reviewed, Interpreted and Dictated by Kirt Escobar III, MD Transcribed by Lianne Vargas Authenticated by Kirt Escobar III, MD on 08/22/2021 11:08:56 AM [facility]
== END ==
LOC: RAD 10:06
PROVIDERS: PCP Physician Assistant; Visit Provider Physician Assistant
DX: R11.0 Nausea (principal); R42 Dizziness and giddiness; R51.9 Headache, unspecified
CPT/HCPCS: 70450

== ENCOUNTER → 2021-09-30 10:08 | Outpatient (CLI) | payer MEDICARE, SELFPAY ==
[2021-09-30 13:16] LABS: Basophils # 0.1 K/mm3 (0-0.2); Basophils % 1.2 % (0.1-2.0); Eosinophils # 0.2 K/mm3 (0.0-0.4); Eosinophils % 2.4 % (0.1-12.0); Hematocrit 51.4 % (42.0-52.0); Hemoglobin 16.8 g/dL (14.1-18.0); Lymphocytes # 1.8 K/mm3 (0.7-4.5); Mean Corpuscular HGB Conc 32.7 g/dL (31.8-35.4); Mean Corpuscular Hemoglobin 30.6 pg (27.0-31.2); Mean Corpuscular Volume 93.7 fl (80-94); Mean Platelet Volume 9.9 fl (7.4-10.4); Monocytes # 0.5 K/mm3 (0.1-1.0); Monocytes % 6.3 % (1.7-9.3); Neutrophils # 5.7 K/mm3 (1.8-7.8); Neutrophils % 68.2 % (37.0-80.0); Platelet Count 208 K/mm3 (142-424); Red Blood Count 5.48 M/mm3 (4.60-6.20); Red Cell Distribution Width 16.1 % (11.5-17.5); White Blood Count 8.3 K/mm3 (4.8-10.8)
[2021-09-30 13:21] LABS: Alanine Aminotransferase 25 U/L (12-78); Albumin Level 4.6 g/dl (3.5-5.0); Albumin/Globulin Ratio 1.6 (1.1-1.8); Anion Gap 15.5 mEq/L (5-15); Aspartate Amino Transferase 26 U/L (17-59); Bilirubin,Total 0.3 mg/dl (0.2-1.3); Blood Urea Nitrogen 14 mg/dl (9-20); Calcium 9.8 mg/dl (8.4-10.2); Carbon Dioxide 24 mmol/L (22.0-30.0); Chloride 106 mmol/L (98-107); Chol/HDL Ratio 3.9 (1-3.5); Cholesterol 185 mg/dl (140-200); Estimated Glomerular Filt Rate 137 ml/min (>60); GFR (African American) 166 ML/MIN (>60); Globulin 2.8 g/dL (1.3-3.2); Glucose 156 mg/dl (74-100); HDL Cholesterol 47 mg/dl (40-60); Potassium 3.5 mmoL/L (3.5-5.1); Sodium 142 mmol/L (136-145); Total Protein,Serum 7.4 g/dl (6.3-8.2); Triglycerides 138 mg/dl (30-150); VLDL Cholesterol 28 mg/dL (0-40)
[2021-09-30 13:22] LABS: Alkaline Phosphatase 101 U/L (38-126)
[2021-09-30 13:34] LABS: Direct LDL Cholesterol 106.95 mg/dL (100-129)
[2021-09-30 13:38] LABS: 25-OH Vitamin D, Total 41.5 ng/mL (30-100)
[2021-09-30 13:54] LABS: Thyroid Stimulating Hormone 0.48 uIU/mL (0.465-4.68)
[2021-09-30 14:00] LABS: Hemoglobin A1C 8.1 % (4.0-6.0)
[2021-09-30 15:11] LABS: Vitamin B12 433 pg/mL (239-931)
[2021-10-08 10:29] LABS: Testosterone, Total, LC/MS 285.9 ng/dL (264.0-916.0)
[2021-10-12 18:43] LABS: Hep A Ab, IgM NEGATIVE; Hepatitis B Core Antibody IgM NEGATIVE; Hepatitis B Surface Antigen NEGATIVE
[2021-10-12 18:44] LABS: Hepatitis C Antibody <0.1
== END ==
PROVIDERS: PCP Physician Assistant; Visit Provider Physician Assistant
DX: R53.83 Other fatigue (principal); R07.9 Chest pain, unspecified; E11.9 Type 2 diabetes mellitus without complications; E66.3 Overweight; Z68.31 Body mass index [BMI] 31.0-31.9, adult; Z79.84 Long term (current) use of oral hypoglycemic drugs
CPT/HCPCS: 80053; 80061; 80074; 82306; 82607; 83036; 84403; 84443; 85025

== ENCOUNTER 2021-11-07 17:23 | Emergency (ER) | payer MEDICARE, SELFPAY ==
[2021-11-07 17:28] VITALS: BP 142/78; PULSE 73; RESP 17; O2SAT 96; BMI 30.7
--- NOTE | 2021-11-07 17:51 | XR_ITS ---
PROCEDURE INFORMATION: Exam: XR Right Shoulder Exam date and time: 11/07/2021 5:46 PM Age: 61 years old Clinical indication: Pain; Shoulder; Right TECHNIQUE: Imaging protocol: Radiologic exam of the Right shoulder. Views: 2 or more views. COMPARISON: CR SHOULDCMRT XR shoulder RT min 2V 10/07/2017 11:42 AM FINDINGS: Bones/joints: There is no evidence of acute fracture. Increased acromial humeral distance may be associated with mild humeral head subluxation. Soft tissues: No soft tissue swelling. IMPRESSION: 1. No evidence of acute fracture. 2. Increased acromial humeral distance may be associated with mild humeral head subluxation. Follow-up MRI of the shoulder may be of benefit, as clinically warranted.
[2021-11-07 18:02] VITALS: BP 149/93; PULSE 70; RESP 16; TEMP 36.6; O2SAT 96; BMI 30.8
--- NOTE | 2021-11-07 18:23 | HMH.EDUTC ---
[facility] [place] Clinical Impression: Right shoulder pain Qualifiers: Chronicity: acute Qualified Code(s): M25.511 - Pain in right shoulder Nontraumatic shoulder pain Qualifiers: Laterality: right Qualified Code(s): M25.511 - Pain in right shoulder Disposition: Home, Self-Care Condition on Discharge: Good Instructions: Shoulder Tendinopathy, DI for Shoulder Instability Additional Instructions: Rest the extremity, Take tylenol for pain. If you normally can NSAIDS like ibuprofen, then you could try some of this over the counter too. Follow up with Dr. Oviedo (orthopedics). I put in a referral but you need to call his office and schedule an appointment. Follow up with your regular doctor. GO TO THE ER FOR ANY WORSENING SYMPTOMS Prescriptions: methylPREDNISolone [Medrol] 4 mg PO DIRECTED 6 Days #21 packet Transmission Status: Received by [facility] Referrals: Anita Dumas PA [Primary Care Provider] - Damon Oviedo MD [Staff Physician] - Time of Disposition: 18:40 Medical Decision Making - Medical Records Medical records reviewed: No: I reviewed the patient's medical records. - George Inquiry Pt receiving controlled substance: No Vital Signs: 11/07/21 17:28 11/07/21 18:02 11/07/21 18:56 Temperature 97.8 F 97.8 F Temperature Source Oral Pulse Rate 70 Pulse Rate [Left Radial] 73 70 Respiratory Rate 17 16 17 Blood Pressure 149/93 H Blood Pressure [Right Arm] 142/78 H 149/93 H Blood Pressure Mean [Right Arm] 99 111 02 Sat by Pulse Oximetry 96 96 Oxygen Delivery Method Room Air Orders (Tests/Meds): ED MEDICATIONS Discontinued Medications Generic Name Dose Route Start Last Admin Trade Name Abhinavq PRN Reason Stop Dose Admin Methylprednisolone Sodium Succinate 125 mg 11/07/21 18:34 11/07/21 18:42 Methylprednisolone Sod Succ 125mg Vial IM 11/07/21 18:35 125 mg ONCE ONE Administration [facility] [place] HPI - General Stated complaint: Pain in right shoulder Time Seen by Provider: 11/07/21 18:23 Description of Symptoms (Recalled from Triage Doc. by RN): patient comes in with right shoulder pain. patient states that the pain began 3 days ago. he believes he may have slept on it wrong HEENT Symptoms (Recalled from RN notes): No Resp Symptoms (Recalled from RN notes): No Skin Symptoms (Recalled from RN notes): No MS Symptoms (Recalled from RN notes): Yes Functional Status (Recalled from RN notes): wnl - History of Present Illness Provider Complaint: He states that he has had right shoulder pain that is worse with movement and use of the shoulder for the past 2 days. He denies any known injury. He has had episodes of shoulder pain in the past similar to this, but this time it is worse that it has been. - Related Data Home Medications Medication Instructions Recorded Confirmed Aspirin [Aspirin 81mg EC Tab] 81 mg PO DAILY 11/11/20 11/04/21 Cholecalciferol (Vitamin D3) 50 mcg PO DAILY 11/11/20 11/04/21 [Vitamin D3] Clopidogrel Bisulfate [Clopidogrel 75 mg PO DAILY 11/11/20 11/04/21 75mg Tab] Cyclobenzaprine HCl 10 mg PO DAILY 11/11/20 11/04/21 [Cyclobenzaprine 10mg Tab*] Duloxetine HCl 60 mg PO DAILY 11/11/20 11/04/21 Empagliflozin [Jardiance] 25 mg PO DAILY 11/11/20 11/04/21 Ezetimibe [Zetia] 10 mg PO DAILY 11/11/20 11/04/21 NIFEdipine [Adalat cc] 90 mg PO DAILY 11/11/20 11/04/21 Omeprazole [Omeprazole 40mg 40 mg PO DAILY 11/11/20 11/04/21 Capsule] Oxycodone HCl/Acetaminophen 10 - 325 mg PO TID PRN 11/11/20 11/04/21 [Percocet 10-325 mg Tablet] Potassium Gluconate [Potassium] 99 mg PO DAILY 11/11/20 11/04/21 Rosuvastatin Calcium 20 mg PO DAILY 11/11/20 11/04/21 Trazodone HCl 50 mg PO DAILY 11/11/20 11/04/21 carvedilol 25 mg tablet 25 mg PO BID tab 07/15/21 11/04/21 clonidine HCl 0.1 mg tablet 0.1 mg PO TID tab 07/15/21 11/04/21 lisinopril 10 1 tab PO DAILY tab 02/28/22 06/20/22 mg-hydrochlorothiazide 12.5 mg
[2021-11-07 18:56] VITALS: BP 149/93; PULSE 70; RESP 17; TEMP 36.6
== END 2021-11-07 18:57 | disposition home or self-care (01) ==
PROVIDERS: Emergency Provider Nurse Practitioner Family; PCP Physician Assistant
DX: M25.511 Pain in right shoulder (principal)
CPT/HCPCS: 73030; 96372; 99212; G0463

== ENCOUNTER 2022-04-09 18:31 | Emergency (ER) | payer MEDICARE, SELFPAY ==
[2022-04-09 20:03] VITALS: BP 153/78; PULSE 77; RESP 15; TEMP 36.6; O2SAT 96; BMI 30.7
[2022-04-09 20:13] LABS: UTC Influenza A Antigen Negative (Negative); UTC Influenza B Antigen Negative (Negative)
--- NOTE | 2022-04-09 20:14 | EXP.UTC ---
Discharge Plan Disposition Patient Disposition: Home, Self-Care Condition: Good Prescriptions Prescriptions: New azithromycin [Zithromax] 250 mg tablet 250 mg PO UD DOSE PK Qty: 6 0RF Rx Instructions: Take two (2) tablets today, then one (1) tablet days #2 thru #5 benzonatate [benzonatate] 100 mg capsule 100 mg PO TIDP PRN (Reason: Cough) Qty: 30 0RF methylprednisolone 4 mg Tablets,Dose Pack 4 mg PO DIRECTED Qty: 21 0RF No Action gabapentin 600 mg tablet 600 mg PO QID Ozempic 1 mg/dose (4 mg/3 mL) pen injector 1 mg SQ WEEKLY Qty: 3 3RF glimepiride 4 mg tablet 4 mg PO DAILY Qty: 90 3RF duloxetine 60 mg capsule,delayed release(DR/EC) 60 mg PO DAILY Qty: 90 3RF lisinopril-hydrochlorothiazide 10-12.5 mg tablet 1 tab PO DAILY Qty: 30 0RF clopidogrel 75 mg tablet 75 mg PO DAILY Qty: 30 0RF fluticasone propionate [Flonase Allergy Relief] 50 mcg/actuation spray,suspension 1 spray intranasal DAILY Qty: 16 0RF Rx Instructions: administer into each nostril carvedilol 25 mg tablet See Rx Instructions .ROUTE .COMPLEX Qty: 60 0RF Dose Instruction: TAKE 1 TABLET BY MOUTH TWICE A DAY Rx Instructions: TAKE 1 TABLET BY MOUTH TWICE A DAY omeprazole 40 mg capsule,delayed release(DR/EC) See Rx Instructions .ROUTE .COMPLEX Qty: 60 0RF Dose Instruction: TAKE 1 CAPSULE BY MOUTH TWICE A DAY SWALLOW WHOLE; DO NOT CRUSH, CHEW, DISSOLVE, CUT, BREAK Rx Instructions: TAKE 1 CAPSULE BY MOUTH TWICE A DAY SWALLOW WHOLE; DO NOT CRUSH, CHEW, DISSOLVE, CUT, BREAK clonidine HCl 0.1 mg tablet See Rx Instructions .ROUTE .COMPLEX Qty: 90 5RF Dose Instruction: TAKE 1 TABLET BY MOUTH THREE TIMES A DAY Rx Instructions: TAKE 1 TABLET BY MOUTH THREE TIMES A DAY metformin 500 mg tablet extended release 24 hr See Rx Instructions .ROUTE .COMPLEX Qty: 120 1RF Dose Instruction: TAKE 2 TABLETS BY MOUTH TWICE DAILY Rx Instructions: TAKE 2 TABLETS BY MOUTH TWICE DAILY nifedipine 90 mg tablet extended release 24hr See Rx Instructions .ROUTE .COMPLEX Qty: 30 0RF Dose Instruction: TAKE 1 TABLET BY MOUTH DAILY FOR HYPERTENSION Rx Instructions: TAKE 1 TABLET BY MOUTH DAILY FOR HYPERTENSION cyclobenzaprine 10 MG tablet 10 mg PO DAILY trazodone 50 MG tablet 50 mg PO DAILY aspirin 81 MG tablet,delayed release (DR/EC) 81 mg PO DAILY oxycodone-acetaminophen 1 EACH tablet 10 - 325 mg PO TID PRN (Reason: Severe Pain) rosuvastatin 20 MG tablet 20 mg PO DAILY potassium gluconate 99 MG tablet 99 mg PO DAILY cholecalciferol (vitamin D3) 50 MCG tablet 50 mcg PO DAILY empagliflozin 25 mg tablet 25 mg PO DAILY ezetimibe 10 mg tablet 10 mg PO DAILY Referrals Follow up/Referrals: Anita Dumas PA [Primary Care Provider] - See instructions Activity Restrictions/Add. Instructions Additional Instructions/Restrictions: Drink plenty of fluids. Take tylenol or ibuprofen for pain or fever. Take the medications as directed. Follow up with your regular doctor. GO TO THE ER FOR ANY WORSENING SYMPTOMS Clinical Impressions Clinical Impression: Viral syndrome, Bronchitis Instructions Patient Instructions: DI for Acute Bronchitis, DI for Viral Syndrome Discharge ED Provider: Donnell Goins [facility] General Stated complaint: congestion, Mode of Arrival: Ambulatory Source of Information: Patient Limitations: No Limitations Time Seen by Provider: 04/09/22 20:14 Description of Symptoms (Recalled from Triage Doc. by RN): HEENT Symptoms (Recalled from RN notes): Yes Resp Symptoms (Recalled from RN notes): Yes Skin Symptoms (Recalled from RN notes): No MS Symptoms (Recalled from RN notes): No Functional Status (Recalled from RN notes): n/a History of Present Illness Provider Complaint: pt comes in with c/o chest congestion, sinus hea
[2022-04-09 20:47] VITALS: BP 153/78; PULSE 77; RESP 15; TEMP 36.6
[2022-04-09 20:53] LABS: Adenovirus,PCR Not Detected (NotDetected); Bordetella Pertussis Not Detected (NotDetected); Chlamydophila Pneumoniae, PCR Not Detected (NotDetected); Coronavirus 19, PCR Not Detected (NotDetected); Coronavirus 229E Not Detected (NotDetected); Coronavirus NL63 Not Detected (NotDetected); Coronavirus OC43 Not Detected (NotDetected); Coronovirus HKU1,PCR Not Detected (NotDetected); Human Metapneumovirus Not Detected (NotDetected); Influenza A, PCR Not Detected (NotDetected); Influenza AH1, 2009 Not Detected (NotDetected); Influenza AH1, PCR Not Detected (NotDetected); Influenza AH3,PCR Not Detected (NotDetected); Influenza B, PCR Not Detected (NotDetected); Mycoplasma Pneumoniae, PCR Not Detected (NotDetected); Parainfluenza 1, PCR Not Detected (NotDetected); Parainfluenza 2, PCR Not Detected (NotDetected); Parainfluenza 3, PCR Not Detected (NotDetected); Parainfluenza 4, PCR Not Detected (NotDetected); Rhinovirus/Enterovirus Not Detected (NotDetected)
[2022-04-10 07:24] LABS: Respiratory Syncytial Virus Detected (NotDetected)
== END 2022-04-09 20:51 | disposition home or self-care (01) ==
LOC: ER 18:34 → UTC 18:38
PROVIDERS: Emergency Provider Nurse Practitioner Family; PCP Physician Assistant
DX: J20.5 Acute bronchitis due to respiratory syncytial virus (principal)
CPT/HCPCS: 87581; 87632; 87798; 87804; 99212; C9803; G0463; U0003; U0005

== ENCOUNTER 2022-05-25 15:22 | Emergency (ER) | payer MEDICARE, SELFPAY ==
[2022-05-25 15:26] VITALS: BP 137/75; PULSE 75; RESP 18; TEMP 36.7; O2SAT 95; BMI 30.7
[2022-05-25 15:31] VITALS: BP 135/75; PULSE 81; RESP 17; O2SAT 95
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
--- NOTE | 2022-05-25 15:46 | ECG_ITS ---
APPROVED REPORT Exam: Resting ECG HR:76 bpm ECG Measurements Heart Rate 76 AXES PA 167 P 63 QRSd 112 QRS -54 QT 399 T 82 QTc 429 Conclusion SINUS RHYTHM LEFT ANTERIOR FASCICULAR BLOCK [QRS AXIS <= -45, QR IN I, RS IN II] LEFT VENTRICULAR HYPERTROPHY AND ST-T CHANGE [VOLTAGE CRITERIA PLUS ST/T ABNORMALITY] Late r wave progression - seen on prior tracing ABNORMAL ECG UNCONFIRMED REPORT Electronically signed by : Claudy Bush MD 05/25/2022 16:54:04
[2022-05-25 16:30] VITALS: BP 127/74; PULSE 77; RESP 18; O2SAT 95
--- NOTE | 2022-05-25 16:52 | PC.NURSE ---
called [facility] about pt, advised they would call back when they have a dr
--- NOTE | 2022-05-25 17:00 | PC.NURSE ---
Maria Isabel.Can rounded on patient
[2022-05-25 18:20] VITALS: BP 139/73; PULSE 75; O2SAT 94
[2022-05-25 18:49] VITALS: BP 139/73; PULSE 77; RESP 18; TEMP 36.7; O2SAT 96
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
== END 2022-05-25 18:50 | disposition home or self-care (01) ==
PROVIDERS: Emergency Provider Emergency Medicine; PCP Physician Assistant
DX: R51.9 Headache, unspecified (principal); R07.81 Pleurodynia; R07.89 Other chest pain; R60.0 Localized edema; M25.512 Pain in left shoulder; F41.9 Anxiety disorder, unspecified; I25.10 Atherosclerotic heart disease of native coronary artery without angina pectoris; F32.A Depression, unspecified; E11.9 Type 2 diabetes mellitus without complications; K21.9 Gastro-esophageal reflux disease without esophagitis; V89.2XXA Person injured in unspecified motor-vehicle accident, traffic, initial encounter; Z86.73 Personal history of transient ischemic attack (TIA), and cerebral infarction without residual deficits; E78.5 Hyperlipidemia, unspecified; I10 Essential (primary) hypertension; G47.00 Insomnia, unspecified
CPT/HCPCS: 70450; 71045; 73560; 93005; 99285

== ENCOUNTER → 2022-06-02 08:59 | Outpatient (CLI) | payer MEDICARE, SELFPAY ==
[2022-06-02 16:16] LABS: Alanine Aminotransferase 16 U/L (12-78); Albumin Level 4.5 g/dl (3.5-5.0); Albumin/Globulin Ratio 1.5 (1.1-1.8); Alkaline Phosphatase 107 U/L (38-126); Anion Gap 15.6 mEq/L (5-15); Aspartate Amino Transferase 21 U/L (17-59); Basophils # 0.1 K/mm3 (0-0.2); Bilirubin,Total 0.4 mg/dl (0.2-1.3); Blood Urea Nitrogen 23 mg/dl (9-20); Carbon Dioxide 23 mmol/L (22.0-30.0); Chloride 106 mmol/L (98-107); Chol/HDL Ratio 4.2 (1-3.5); Cholesterol 194 mg/dl (140-200); Eosinophils # 0.2 K/mm3 (0.0-0.4); Eosinophils % 2.7 % (0.1-12.0); Estimated Glomerular Filt Rate 86 ml/min (>60); GFR (African American) 104 ML/MIN (>60); Globulin 3.1 g/dL (1.3-3.2); Glucose 176 mg/dl (74-100); HDL Cholesterol 46 mg/dl (40-60); Hemoglobin 15.7 g/dL (14.1-18.0); Lymphocytes # 1.8 K/mm3 (0.7-4.5); Lymphocytes % 27.7 % (10-50); Mean Corpuscular HGB Conc 32.8 g/dL (31.8-35.4); Mean Corpuscular Hemoglobin 29.4 pg (27.0-31.2); Mean Corpuscular Volume 89.6 fl (80-94); Mean Platelet Volume 10.7 fl (7.4-10.4); Monocytes # 0.3 K/mm3 (0.1-1.0); Monocytes % 5.1 % (1.7-9.3); Neutrophils # 4.1 K/mm3 (1.8-7.8); Neutrophils % 63.4 % (37.0-80.0); Platelet Count 232 K/mm3 (142-424); Potassium 3.6 mmoL/L (3.5-5.1); Red Blood Count 5.35 M/mm3 (4.60-6.20); Red Cell Distribution Width 16.9 % (11.5-17.5); Sodium 141 mmol/L (136-145); Total Protein,Serum 7.6 g/dl (6.3-8.2); Triglycerides 113 mg/dl (30-150); VLDL Cholesterol 23 mg/dL (0-40); White Blood Count 6.4 K/mm3 (4.8-10.8)
[2022-06-02 16:27] LABS: Direct LDL Cholesterol 123.44 mg/dL (100-129)
[2022-06-02 16:33] LABS: 25-OH Vitamin D, Total 27.5 ng/mL (30-100)
[2022-06-02 16:47] LABS: Prostate Specific Ag Screen 0.3 ng/ml (0.0-4.0); Thyroid Stimulating Hormone 1.16 uIU/mL (0.465-4.68)
[2022-06-02 17:25] LABS: Hemoglobin A1C 7.5 % (4.0-6.0)
== END ==
PROVIDERS: PCP Physician Assistant; Visit Provider Physician Assistant
DX: I10 Essential (primary) hypertension (principal); I72.5 Aneurysm of other precerebral arteries; E11.65 Type 2 diabetes mellitus with hyperglycemia; E55.9 Vitamin D deficiency, unspecified; Z79.84 Long term (current) use of oral hypoglycemic drugs; Z12.5 Encounter for screening for malignant neoplasm of prostate
CPT/HCPCS: 80053; 80061; 82306; 83036; 84443; 85025; G0103

== ENCOUNTER → 2022-06-06 16:04 | Outpatient (CLI) | payer MEDICARE, SELFPAY ==
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
== END ==
LOC: RAD 16:05
PROVIDERS: PCP Physician Assistant; Visit Provider Physician Assistant
DX: I72.5 Aneurysm of other precerebral arteries (principal); R51.9 Headache, unspecified; I65.1 Occlusion and stenosis of basilar artery
CPT/HCPCS: 70544; 70551

== ENCOUNTER → 2022-07-02 06:13 | Outpatient (CLI) | payer MEDICARE, SELFPAY ==
--- NOTE | 2022-07-02 06:14 | CA_ITS ---
APPROVED REPORT EXAM: Comprehensive 2D, Doppler, and color-flow Echocardiogram Dry Wall Sprayer: Becky Sharma RDCS Ht: 5 ft 10 in Wt: 234lbs BSA: 2.23 BP: 137/75 mmHg Indications: CAD ABN EKG 2D Dimensions LVOT 2.23 cm (M/F) 1.5-2.5 M-Mode Dimensions RVDd 4.18 cm (0.9-2.6) LA Diam 4.96 cm (1.9-4.0) LVDd 6.16 cm (3.5-5.7) Ao Diam 3.51 cm (2.0-3.7) LVDs 4.71 cm (3.5-5.7) IVSd 1.05 cm (0.6-1.1) PWd 1.09 cm (0.6-1.1) EF (Teich) 46.20% FS 23.50% EDV (Teich) 191.10 mL TAPSE 1.57 (<1.7) ESV (Teich) 102.90 mL LV Diastology E Decel Time 337.00 (160-240 msec) E/A Ratio 0.3 MED E' 3.60 (< 7 cm/sec) E'/MED E' Ratio 6.00 (>14) LAT E' 3.40 (<10 cm/sec) E/LAT E' Ratio 6.35 (>14) Mitral Valve MV E Max Vito. 22.00 (40-130 cm/s) MV A Velocity 85.00 (40-130 cm/s) E/A Ratio 0.25 MV Decel. Time 337.00 (160-240 ms) MV PHT 99.00 ms Left Ventricle Left atrium is mildly enlarged, left ventricle is normal size mild concentric left ventricular hypertrophy, estimated ejection fraction 40%, there is marked hypokinesis involving the mid to distal septum anterior apical and apical wall. Grade 1 diastolic dysfunction seen without tissue Doppler evidence of late left atrial pressure. Right Ventricle Right atrium and right ventricular normal size and contractility. Aortic Valve Aortic valve is minimally thickened and calcified without aortic stenosis or aortic insufficiency. Mitral Valve Mitral valve is grossly normal, there is trace mitral regurgitation. Tricuspid Valve Tricuspid valve grossly normal, there is trace tricuspid regurgitation, tricuspid regurgitation jet plus is inadequate for calculation of the right ventricular systolic pressure. Pulmonic Valve Pulmonic valve is poorly visualized. Great Vessels Aortic root is normal size. Inferior vena cava is poorly visualized. Pericardium No significant pericardial effusion noted. Conclusion 1. Mildly enlarged left atrium, normal left ventricular size mild concentric left ventricular hypertrophy, estimated ejection fraction 40% with segmental wall motion abnormality described above, grade 1 diastolic dysfunction seen without tissue Doppler evidence of late left atrial pressure. 2. Trace mitral and tricuspid regurgitation. 3. No significant pericardial effusion noted. 4. Inferior vena cava is poorly visualized. Electronically signed by : Dalton Cleary MD 07/02/2022 12:47:01
--- NOTE | 2022-07-02 06:14 | NM_ITS ---
APPROVED REPORT Exam: Nuclear Stress Test Indication: Palpitations, Abnormal EKG, CAD, CABG, Fatigue, HTN, DM, High cholesterol, Tobacco use, Family history Patient Location: Outpatient Stress Tech: Josefa Dimasnkson NM Tech:Jane Mojica, ARRT, RT (R)(N) Ht: 5 ft 10 in Wt: 220 lbs HR: 75 bpm BP: 161/107 mmHg BSA: 2.17 m2 TID: 1.16 BMI: 31.5 History: Palpitations, Abnormal EKG, CAD, CABG, Fatigue, HTN, DM, High cholesterol, Tobacco use, Family history Procedure: Patient received 0.4 mg of intravenous Lexiscan, resting heart rate 75 bpm, resting blood pressure 161/107 mmHg, with Lexiscan maximum heart rate achieved was 95 bpm which is Less than 85 % of the maximum predicted heart rate and blood pressure was 183/100 mmHg. With Lexiscan, patient denied any complaint of chest pain. Electrocardiogram Resting electrocardiogram shows sinus rhythm, with Lexiscan there is less than 1.[address] segment depression noted from the baseline EKG. The EKG portion of the Lexiscan is nondiagnostic. Cardiac Stress and Resting SPECT Images: Cardiac Stress and Resting SPECT images were obtained using technetium 99m Myoview 29.9 mCi stress and 10.47 mCi at rest. Gated SPECT analysis of segmental wall motion and calculation of the ejection fraction also done. Prone images were also obtained. Cardiac stress and rest SPECT images showed uniform myocardial activity without segmental perfusion abnormality, computer derived ejection fraction is 25% with left ventricular globally hypokinetic, the left ventricle is dilated both stress and rest. Conclusion: 1. The EKG portion of the Lexiscan is nondiagnostic. 2. No scintigraphic evidence of reversible ischemia seen, computer derived ejection fraction 25% with left ventricle is globally hypokinetic, the left ventricle is dilated both stress and rest. 3. Abnormal myocardial perfusion imaging due to low ejection fraction Electronically signed by : Dalton Cleary MD 07/02/2022 11:13:13
--- NOTE | 2022-07-02 06:14 | CA_ITS ---
FINAL REPORT CLINICAL HISTORY: CAD/ABNL ECG FINDINGS: Aorta velocity: 67 cm/sec Right kidney: 12.0 cm. No evidence of hydronephrosis or mass. Right intrarenal RI: 0.71 Right renal artery velocity: 90 cm/sec. Right RAR (Renal artery-Aortic Ratio): 1.34 Left Kidney: 12.5 cm. No evidence of hydronephrosis or mass. Left intrarenal RI: 0 or 0.74 Left renal artery velocity: 119 cm/sec. Left RAR (Renal Artery-Aortic Ratio): 1.7 IMPRESSION: No evidence of significant renal artery stenosis. CT angiogram or postcontrast MR angiogram would be more sensitive for evaluation of possible renal artery stenosis. Reviewed, Interpreted and Dictated by Deanna Retana MD Transcribed by Jasen Hernandez Authenticated and [facility]
--- NOTE | 2022-07-02 06:14 | CA_ITS ---
FINAL REPORT TECHNIQUE: Color Doppler, duplex Doppler and gamez scale sonography of the bilateral neck arterial vasculature was performed. Velocities were measured in the carotid arteries. Stenosis evaluation based on the validated velocity criteria. CLINICAL HISTORY: CAD/ABNL ECG/dizzines FINDINGS: The peak systolic velocity of the right common carotid artery is 54 cm/s. The peak systolic velocity of the right internal carotid artery is 66 cm/s and end diastolic velocity 20 cm/s. The ICA/CCA ratio is 1.2. A mild amount of plaque is present. The right external carotid artery is patent. The right vertebral artery is patent with antegrade flow. The peak systolic velocity of the left common carotid artery is 57 cm/s. The peak systolic velocity of the left internal carotid artery is 70 cm/s and end diastolic velocity 29 cm/s. The ICA/CCA ratio is 1.2. No significant plaque is present. The left external carotid artery is patent.The left vertebral artery is patent with antegrade flow. IMPRESSION: Less than 50% bilateral carotid stenosis. Bilateral patent vertebral arteries with antegrade flow. If indicated, CTA or MRA could further evaluate. Reviewed, Interpreted and Dictated by Deanna Retana MD Transcribed by Lianne Vargas Authenticated and [facility]
--- NOTE | 2022-07-02 06:14 | CA_ITS ---
APPROVED REPORT Exam: Pharmacologic Technologist: Geno Jameson, Ht: 5 ft 10 in Wt: 234 lbs BSA: 2.23 m2 HR: 78 bpm BP: 161/107 mmHg Medical History Medical History: HTN, Diabetic ??? Noninsulin, CAD s/p CABG, Hyperlipidemia Medications: Lisinopril,,,,, Omeprazole,,,,, Clonidine,,,,, Asa,,,,, Metformin,,,,, Trazadone,,,,, Gabapentin,,,,, HCTZ,,,,, Carvedilol,,,,, Vit D3,,,,, KCL,,,,, Plavix,,,,, Allergies: dobutamine Cardiac Risk Factors: HTN, Hyperlipidemia, Diabetes (non-insulin), Smoking Stress Test Details Test: LEXISCAN HR Resting HR: 75 bpm Max Heart Rate (APMHR): 159.422844 bpm Max HR Achieved: 95 bpm Target HR (85% APMHR): 135.882739 bpm % of APMHR: 59.75 Recovery HR: 87 bpm BP Resting BP: 161/107 mmHg Max BP: 183/100 mmHg Recovery BP: 175.0/102.0 mmHg ECG Clinical Exercise duration: 04:04 min Highest Stage Achieved: Exercise capacity: 1.0 METs Stress ECG Conclusion DURING INFUSION PATIENT HAD SOA AND NAUSEA. OCCASIONAL PAC/PVC. <1.5MM ST CHANGES Test Summary REST . . . . . . . Sitting REST 05:56 . . 75 . 161/107 . . Stage 1 . . . . . . . Myoview Injected Stage 1 01:00 . . 83 . . . . Stage 2 01:00 . . 90 . 162/103 . . Stage 3 01:00 . . 91 . . . . Stage 4 01:00 . . 86 . 170/106 . . Stage 4 01:04 . . 86 . 170/106 . Stop exercise at 04:04 RECOVERY 01:00 . . 90 . 183/100 . . RECOVERY 02:00 . . 89 . 175/102 . . RECOVERY 02:36 . . 87 . 173/104 . . Electronically signed by : Dalton Cleary MD 07/02/2022 11:10:22
--- NOTE | 2022-07-02 06:14 | US_ITS ---
FINAL REPORT TECHNIQUE: Ultrasound images of the kidneys were obtained. CLINICAL HISTORY: I25.10 - Atherosclerotic heart disease of [place] coronary... FINDINGS: US RETROPERITONEAL The right kidney measures 13.2 cm in length. It is normal in echogenicity. There is no hydronephrosis. The left kidney measures 13.7 cm in length. It is normal in echogenicity. There is no hydronephrosis. The spleen is enlarged measuring 14.2 cm IMPRESSION: Splenomegaly. Otherwise unremarkable exam. Reviewed, Interpreted and Dictated by Deanna Retana MD Transcribed by Lianne Vargas Authenticated and . [facility]
--- NOTE | 2022-07-02 08:13 | HMH.ITSHM ---
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 []VITAMIN D3 CARVEDILOL BUTALBITAL ASA TRAZODONE SEMAGLUTIDE ROSUVASTATIN POTASSIUM OXYCODONE OMEPRAZOLE NIFEDIPINE METFORMIN LISINOPRIL GLIMEPIRIDE GABAPENTIN FLUTICASONE EZETIMIBE EMPAGLIFLOZIN DULOXETINE CYCLOBENZAPRINE CLOPIDOGREL CLONIDINE
== END ==
LOC: RAD 06:14
PROVIDERS: PCP Physician Assistant; Visit Provider Physician Assistant
DX: E78.5 Hyperlipidemia, unspecified (principal); I10 Essential (primary) hypertension; I25.10 Atherosclerotic heart disease of native coronary artery without angina pectoris; I65.03 Occlusion and stenosis of bilateral vertebral arteries; I72.5 Aneurysm of other precerebral arteries; Z72.0 Tobacco use; Z86.73 Personal history of transient ischemic attack (TIA), and cerebral infarction without residual deficits; Z95.1 Presence of aortocoronary bypass graft; R42 Dizziness and giddiness
CPT/HCPCS: 76770; 78452; 93017; 93306; 93880; 93976; A9502; J2785

== ENCOUNTER 2022-07-17 16:04 | Emergency (ER) | payer MEDICARE, SELFPAY ==
[2022-07-17 16:15] VITALS: BP 182/89; PULSE 75; RESP 20; TEMP 36.7; O2SAT 95; BMI 31.5
--- NOTE | 2022-07-17 16:16 | EXP.UTC ---
Discharge Plan Disposition Patient Disposition: Home, Self-Care Condition: Good Prescriptions Prescriptions: New amoxicillin [amoxicillin] 500 mg tablet 500 mg PO TID 10 Days Qty: 30 0RF No Action gabapentin 600 mg tablet 600 mg PO QID Ozempic 1 mg/dose (4 mg/3 mL) pen injector 1 mg SQ WEEKLY Qty: 3 3RF glimepiride 4 mg tablet 4 mg PO DAILY Qty: 90 3RF clonidine HCl 0.1 mg tablet 0.1 mg PO BID Qty: 60 5RF Rx Instructions: 0.1 mg orally twice a day; lisinopril-hydrochlorothiazide 20-25 mg tablet 1 tab PO DAILY Qty: 30 2RF duloxetine 60 mg capsule,delayed release(DR/EC) 60 mg PO DAILY Qty: 90 3RF clopidogrel 75 mg tablet 75 mg PO DAILY Qty: 30 0RF fluticasone propionate [Flonase Allergy Relief] 50 mcg/actuation spray,suspension 1 spray intranasal DAILY Qty: 16 0RF Rx Instructions: administer into each nostril oxycodone-acetaminophen 10-325 mg tablet 1 tab PO TID PRN (Reason: Severe Pain) Qty: 20 0RF nifedipine 90 mg tablet extended release 24hr See Rx Instructions .ROUTE .COMPLEX Qty: 90 0RF Dose Instruction: TAKE 1 TABLET BY MOUTH DAILY FOR HYPERTENSION Rx Instructions: TAKE 1 TABLET BY MOUTH DAILY FOR HYPERTENSION carvedilol 25 mg tablet See Rx Instructions .ROUTE .COMPLEX Qty: 180 0RF Dose Instruction: TAKE 1 TABLET BY MOUTH TWICE A DAY Rx Instructions: TAKE 1 TABLET BY MOUTH TWICE A DAY omeprazole 40 mg capsule,delayed release(DR/EC) See Rx Instructions .ROUTE .COMPLEX Qty: 60 0RF Dose Instruction: TAKE 1 CAPSULE BY MOUTH TWICE A DAY SWALLOW WHOLE; DO NOT CRUSH, CHEW, DISSOLVE, CUT, BREAK Rx Instructions: TAKE 1 CAPSULE BY MOUTH TWICE A DAY SWALLOW WHOLE; DO NOT CRUSH, CHEW, DISSOLVE, CUT, BREAK metformin 500 mg tablet extended release 24 hr See Rx Instructions .ROUTE .COMPLEX Qty: 120 0RF Dose Instruction: TAKE 2 TABLETS BY MOUTH TWICE DAILY Rx Instructions: TAKE 2 TABLETS BY MOUTH TWICE DAILY cyclobenzaprine 10 MG tablet 10 mg PO DAILY trazodone 50 MG tablet 50 mg PO DAILY aspirin 81 MG tablet,delayed release (DR/EC) 81 mg PO DAILY rosuvastatin 20 MG tablet 20 mg PO DAILY potassium gluconate 99 MG tablet 99 mg PO DAILY cholecalciferol (vitamin D3) 50 MCG tablet 50 mcg PO DAILY empagliflozin 25 mg tablet 25 mg PO DAILY ezetimibe 10 mg tablet 10 mg PO DAILY [id number] [Fioricet] 50-300-40 mg capsule 1 cap PO Q8H PRN (Reason: pain) Qty: 14 0RF Referrals Follow up/Referrals: Anita Dumas PA [Primary Care Provider] - See instructions Activity Restrictions/Add. Instructions Additional Instructions/Restrictions: Drink plenty of fluids. Take tylenol or ibuprofen for pain or fever. Take the medications as directed. Follow up with your regular doctor. GO TO THE ER FOR ANY WORSENING SYMPTOMS Clinical Impressions Clinical Impression: Pharyngitis Instructions Patient Instructions: DI for Pharyngitis/Tonsillopharyngitis -- Adult Discharge ED Provider: Donnell Goins [facility] General Stated complaint: CONGESTION BODY ACHES Time Seen by Provider: 07/17/22 16:14 History of Present Illness Provider Complaint: He states that for the past 1 day he has had sore throat, chills, fever and congestion. He has a productive cough with greenish sputum also. Related Data Home Medications Medication Instructions Recorded Confirmed aspirin 81 mg tablet,delayed 81 mg PO DAILY Blood thinner 11/11/20 06/23/22 release cholecalciferol (vitamin D3) 50 50 mcg PO DAILY Supplement 11/11/20 06/23/22 mcg (2,000 unit) tablet cyclobenzaprine 10 mg tablet 10 mg PO DAILY muscle spasms 11/11/20 06/23/22 potassium gluconate 595 mg (99 mg) 99 mg PO DAILY Supplement 11/11/20 06/23/22 tablet rosuvastatin 20 mg tablet 20 mg PO DAILY Cholesterol 11/11/20 06/23/22 trazodone 50 mg
[2022-07-17 17:18] VITALS: BP 182/89; PULSE 75; RESP 20; TEMP 36.7; O2SAT 95
== END 2022-07-17 17:18 | disposition home or self-care (01) ==
PROVIDERS: Emergency Provider Nurse Practitioner Family; PCP Physician Assistant
DX: J02.9 Acute pharyngitis, unspecified (principal)
CPT/HCPCS: 99212; G0463

== ENCOUNTER 2022-07-28 09:41 | Day surgery (SDC) | payer MEDICARE, SELFPAY ==
[2022-07-28] VITALS (14 sets, daily range): BP systolic 120–232; BP diastolic 71–137; PULSE 67–80; RESP 18; TEMP 36.6; O2SAT 93–96; BMI 33.5
--- NOTE | 2022-07-28 07:15 | IR_ITS ---
APPROVED REPORT Patient Location: Outpatient [facility] Maint Eng: DERRICK Seaman RT (R) PROCEDURES Left heart catheterization Left ventriculogram Selective coronary angiogram Left internal mammary angiography Selective engagement of the saphenous vein graft to the right coronary Selective engagement of the saphenous vein graft to the obtuse marginal artery Bilateral selective renal angiography INDICATION Ischemic cardiomyopathy ejection fraction 20 to 25%, History of coronary artery disease, History of coronary bypass surgery, Malignant hypertension, Renovascular hypertension Informed consent was obtained prior to the procedure. COMPLICATIONS None Estimated Blood Loss: Less than 10 ML TECHNIQUE One percent lidocaine used to anesthetize the right groin. The right femoral artery was accessed via the Seldinger technique and a 5 Spanish sheath was placed in the right femoral artery. A JL 4, JR4 catheter were used to perform left heart catheterization, left ventriculogram selective coronary angiography as well as selective engagement of the 2 vein grafts and the left internal mammary artery. Patient received very high doses of labetalol and hydralazine and still had severely elevated hypertension. Because of his history of coronary artery vasculopathy and the malignant hypertension we felt there was a likelihood of renal artery stenosis therefore bilateral selective renal angiography was performed. At the end of the procedure because patient's blood pressure was so high and he was agitated on the table we felt Perclose device should be deployed in order to achieve hemostasis. The groin is reprepped closure changed sheath was removed good hemostasis was achieved using Perclose device patient was transferred the postop putting in stable condition ANGIOGRAPHIC RESULTS The left main artery Has proximal 10% stenoses The left anterior descending artery Is proximally patent and then has severe 90% concentric stenosis after the first septal executive director global brand marketing. The LAD is then occluded The circumflex artery Is probably a codominant vessel and gives rise to small first obtuse marginal arteries and then occluded The right coronary artery Is codominant and has proximal 70% mid vessel 90% distal 90% stenoses and then occluded at the PDA and posterior lateral branch The WRAY ventriculogram reveals Severe left ventricular dilatation with severe global hypokinesis estimated ejection fraction 20 to 25% The left ventricular end-diastolic pressure Severely elevated at 30 mmHg CAREY to LAD is patent Saphenous vein graft to second obtuse marginal artery is patent. The graft then skips to the third obtuse marginal artery with that limb being widely patent Saphenous vein graft to posterior descending artery widely patent Right renal artery large singular normal Left renal artery singular and has a mid vessel eccentric 40% stenosis with no demonstrable hemodynamic gradient upon pullback with a 5 Spanish J or 4 catheter IMPRESSION Coronary disease as described above Severe left ventricular dilatation with severely elevated LVEDP Adequate surgical revascularization with four-vessel bypass surgery Moderate left renal artery stenosis with no demonstrable hemodynamic gradient across the lesion PLAN 1. Control of hypertension 2. Diuresis 3. Standard therapy for systolic heart failure 4. Patient should be a candidate for AICD placement 5. Sleep study recommended 6. LDL less than 55 to be achieved with high intensity statin Electronically signed by : Devan Oconnell MD 07/28/2022 12:44:15
[2022-07-28 10:55] LABS: Basophils % 0.9 % (0.1-2.0); Eosinophils # 0.2 K/mm3 (0.0-0.4); Eosinophils % 3.1 % (0.1-12.0); Hematocrit 42.4 % (42.0-52.0); Hemoglobin 13.7 g/dL (14.1-18.0); Lymphocytes # 1.2 K/mm3 (0.7-4.5); Lymphocytes % 24.2 % (10-50); Mean Corpuscular HGB Conc 32.3 g/dL (31.8-35.4); Mean Corpuscular Hemoglobin 29.7 pg (27.0-31.2); Mean Corpuscular Volume 91.9 fl (80-94); Mean Platelet Volume 10.7 fl (7.4-10.4); Monocytes # 0.3 K/mm3 (0.1-1.0); Monocytes % 5.1 % (1.7-9.3); Neutrophils # 3.3 K/mm3 (1.8-7.8); Neutrophils % 66.7 % (37.0-80.0); Platelet Count 199 K/mm3 (142-424); Red Blood Count 4.62 M/mm3 (4.60-6.20); Red Cell Distribution Width 15.8 % (11.5-17.5); White Blood Count 4.9 K/mm3 (4.8-10.8)
[2022-07-28 11:03] LABS: Anion Gap 8.9 mEq/L (5-15); Blood Urea Nitrogen 12 mg/dl (9-20); Calcium 8.4 mg/dl (8.4-10.2); Carbon Dioxide 30 mmol/L (22.0-30.0); Chloride 103 mmol/L (98-107); Creatinine Clearance Estimated 116 mL/min (50-200); Estimated Glomerular Filt Rate 115 ml/min (>60); GFR (African American) 139 ML/MIN (>60); Glucose 198 mg/dl (74-100); Potassium 3.9 mmoL/L (3.5-5.1); Sodium 138 mmol/L (136-145)
== END 2022-07-28 15:26 | disposition home or self-care (01) ==
PROVIDERS: PCP Physician Assistant; Visit Provider Internal Medicine
DX: E11.65 Type 2 diabetes mellitus with hyperglycemia (principal); E78.5 Hyperlipidemia, unspecified; F41.9 Anxiety disorder, unspecified; G47.33 Obstructive sleep apnea (adult) (pediatric); I11.0 Hypertensive heart disease with heart failure; I25.10 Atherosclerotic heart disease of native coronary artery without angina pectoris; I25.5 Ischemic cardiomyopathy; I50.20 Unspecified systolic (congestive) heart failure; R94.31 Abnormal electrocardiogram [ECG] [EKG]; R94.39 Abnormal result of other cardiovascular function study; F17.210 Nicotine dependence, cigarettes, uncomplicated; Z86.73 Personal history of transient ischemic attack (TIA), and cerebral infarction without residual deficits; Z95.1 Presence of aortocoronary bypass graft; I15.0 Renovascular hypertension; I25.82 Chronic total occlusion of coronary artery
CPT/HCPCS: 36252; 80048; 85025; 93459; 99152; 99153; C1725; C1760; C1769; C1894; J1644; Q9967

== ENCOUNTER 2022-08-07 09:35 | Emergency (ER) | payer MEDICARE, SELFPAY ==
[2022-08-07] VITALS (8 sets, daily range): BP systolic 136–178; BP diastolic 83–118; PULSE 59–70; RESP 13–19; TEMP 36.4–36.6; O2SAT 93–100; BMI 34.0
--- NOTE | 2022-08-07 09:35 | ECG_ITS ---
APPROVED REPORT Exam: Resting ECG HR:71 bpm ECG Measurements Heart Rate 71 AXES WI 161 P 39 QRSd 114 QRS -51 QT 436 T 85 QTc 459 Conclusion SINUS RHYTHM WITH OCCASIONAL SUPRAVENTRICULAR PREMATURE COMPLEXES PATTERN CONSISTENT WITH PULMONARY DISEASE LEFT ANTERIOR FASCICULAR BLOCK [QRS AXIS <= -45, QR IN I, RS IN II] LEFT VENTRICULAR HYPERTROPHY AND ST-T CHANGE Late R wave progression - previously noted ABNORMAL ECG UNCONFIRMED REPORT Electronically signed by : Claudy Bush MD 08/07/2022 16:43:39
--- NOTE | 2022-08-07 09:40 | HMH.EDGENADL ---
Discharge Plan Disposition Patient Disposition: Home, Self-Care Condition: Good Prescriptions Prescriptions: New albuterol sulfate 90 mcg/actuation HFA aerosol inhaler 1 - 2 puff inhalation Q6H PRN (Reason: Wheezing) Qty: 1 0RF No Action gabapentin 600 mg tablet 600 mg PO QID Ozempic 1 mg/dose (4 mg/3 mL) pen injector 1 mg SQ WEEKLY Qty: 3 3RF glimepiride 4 mg tablet 4 mg PO DAILY Qty: 90 3RF Entresto 49-51 mg tablet 1 tab PO ONCE furosemide [Lasix] 20 mg tablet 20 mg PO DAILY Qty: 30 5RF mecobalamin (vitamin B12) 2,500 mcg tablet,chewable 2,500 mcg PO DAILY fluticasone propionate [Flonase Allergy Relief] 50 mcg/actuation spray,suspension 1 spray intranasal DAILY PRN Rx Instructions: administer into each nostril duloxetine 60 mg capsule,delayed release(DR/EC) 60 mg PO DAILY Qty: 90 3RF clopidogrel 75 mg tablet 75 mg PO DAILY Qty: 30 0RF oxycodone-acetaminophen 10-325 mg tablet 1 tab PO TID PRN (Reason: Severe Pain) Qty: 20 0RF omeprazole 40 mg capsule,delayed release(DR/EC) See Rx Instructions .ROUTE .COMPLEX Qty: 60 0RF Dose Instruction: TAKE 1 CAPSULE BY MOUTH TWICE A DAY SWALLOW WHOLE; DO NOT CRUSH, CHEW, DISSOLVE, CUT, BREAK Rx Instructions: TAKE 1 CAPSULE BY MOUTH TWICE A DAY SWALLOW WHOLE; DO NOT CRUSH, CHEW, DISSOLVE, CUT, BREAK metformin 500 mg tablet extended release 24 hr See Rx Instructions .ROUTE .COMPLEX Qty: 120 0RF Dose Instruction: TAKE 2 TABLETS BY MOUTH TWICE DAILY Rx Instructions: TAKE 2 TABLETS BY MOUTH TWICE DAILY carvedilol [Coreg] 12.5 mg tablet 37.5 mg PO BID Qty: 180 3RF Rx Instructions: must administer with a meal/food lisinopril-hydrochlorothiazide [Zestoretic] 20-12.5 mg tablet 2 tab PO BID Qty: 120 3RF aspirin 81 MG tablet,delayed release (DR/EC) 81 mg PO DAILY potassium gluconate 99 MG tablet 99 mg PO DAILY cholecalciferol (vitamin D3) 50 MCG tablet 50 mcg PO DAILY amlodipine [Norvasc] 10 mg Tablet 10 mg PO DAILY Qty: 30 3RF Referrals Follow up/Referrals: Provider,Referral, [Referring] - See instructions Activity Restrictions/Add. Instructions Additional Instructions/Restrictions: 40 mg of Lasix a day for the next 2 days. Follow-up with cardiology Dr. Oconnell and your primary care provider as soon as possible for further care. 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 States that he has had a cough for a month. States that he feels like he cannot get anything up when he coughs. He has been wheezing and crackling breath sounds today. However has dark green sinus drainage. Denies fever. He denies COPD or asthma. He is a smoker. He has cardiac disease, recent cardiac cath. Patient states that he has never been told that he has congestive heart failure, although his record documents diagnosis of congestive heart failure. No significant swelling. Related Data Home Medications Medication Instructions Recorded Confirmed aspirin 81 mg tablet,delayed 81 mg PO DAILY Blood thinner 11/11/20 08/06/22 release cholecalciferol (vitamin D3) 50 50 mcg PO DAILY Supplement 11/11/20 08/06/22 mcg (2,000 unit) tablet potassium gluconate 595 mg (99 mg) 99 mg PO DAILY Supplement 11/11/20 08/06/22 tablet gabapentin 600 mg tablet 600 mg PO QID 09/30/21 08/06/22 fluticasone propionate 50 1 spray intranasal DAILY PRN 07/21/22 08/06/22 mcg/actuation nasal spray,suspension (Flonase Allergy Relief) mecobalamin (vitamin B12) 2,50
--- NOTE | 2022-08-07 09:50 | PC.NURSE ---
SAROJ BEARD at for pt jaretal
--- NOTE | 2022-08-07 09:51 | XR_ITS ---
FINAL REPORT CLINICAL HISTORY: dyspnea; h/o PNA,smoker COMPARISON: May 25, 2022 FINDINGS: PORTABLE CHEST Sternotomy wires are present. There is mild cardiomegaly. The mediastinum is unremarkable. There are coarse interstitial opacities in the lung bases which are chronic. There is no pneumothorax. IMPRESSION: No acute process. Reviewed, Interpreted and Dictated by Khang Franco MD Transcribed by Lianne Vargas Authenticated and [facility]
[2022-08-07 09:57] LABS: Basophils # 0.1 K/mm3 (0-0.2); Basophils % 1.3 % (0.1-2.0); Eosinophils # 0.1 K/mm3 (0.0-0.4); Eosinophils % 2.5 % (0.1-12.0); Hematocrit 44.8 % (42.0-52.0); Hemoglobin 14.1 g/dL (14.1-18.0); Lymphocytes # 1.5 K/mm3 (0.7-4.5); Lymphocytes % 29.1 % (10-50); Mean Corpuscular HGB Conc 31.4 g/dL (31.8-35.4); Mean Corpuscular Hemoglobin 29.3 pg (27.0-31.2); Mean Corpuscular Volume 93.4 fl (80-94); Mean Platelet Volume 10.1 fl (7.4-10.4); Monocytes # 0.4 K/mm3 (0.1-1.0); Monocytes % 6.6 % (1.7-9.3); Neutrophils # 3.2 K/mm3 (1.8-7.8); Neutrophils % 60.5 % (37.0-80.0); Platelet Count 244 K/mm3 (142-424); Red Cell Distribution Width 15.3 % (11.5-17.5); White Blood Count 5.3 K/mm3 (4.8-10.8)
--- NOTE | 2022-08-07 09:59 | PC.NURSE ---
pt needed urinal, no other complaints at this time, @ bs
[2022-08-07 10:00] LABS: Anion Gap 10.7 mEq/L (5-15); Blood Urea Nitrogen 15 mg/dl (9-20); Calcium 8.5 mg/dl (8.4-10.2); Carbon Dioxide 34 mmol/L (22.0-30.0); Chloride 96 mmol/L (98-107); Creatinine Clearance Estimated 118 mL/min (50-200); Estimated Glomerular Filt Rate 115 ml/min (>60); GFR (African American) 139 ML/MIN (>60); Glucose 250 mg/dl (74-100); Potassium 3.7 mmoL/L (3.5-5.1); Sodium 137 mmol/L (136-145)
[2022-08-07 10:01] LABS: Alanine Aminotransferase 25 U/L (12-78); Albumin Level 4.2 g/dl (3.5-5.0); Alkaline Phosphatase 108 U/L (38-126); Aspartate Amino Transferase 24 U/L (17-59); Bilirubin,Direct 0.3 mg/dl (0.0-0.4); Bilirubin,Indirect 0.2 mg/dL (0.0-0.9); Bilirubin,Total 0.5 mg/dl (0.2-1.3); Bilirubin,Unconjugated 0.2 mg/dL (0.0-1.1); Lipase 25 U/L (23-300); Total Protein,Serum 7.6 g/dl (6.3-8.2)
[2022-08-07 10:29] LABS: NT Pro Brain Natriuretic Pep. 4020 pg/mL (0-125)
[2022-08-07 10:32] LABS: Troponin I < 0.01 ng/ml (0.00-0.034)
--- NOTE | 2022-08-07 10:54 | PC.NURSE ---
paging cardiology for consult
--- NOTE | 2022-08-07 11:09 | PC.NURSE ---
Emptied approx 200mL of UOP from 1000
[2022-08-07 11:12] LABS: Coronavirus 19, PCR Not Detected (NotDetected); Influenza A, PCR Not Detected (NotDetected); Influenza B, PCR Not Detected (NotDetected)
--- NOTE | 2022-08-07 11:51 | PC.NURSE ---
cardiology here to see pt
--- NOTE | 2022-08-07 12:07 | EXP.CARD.CON ---
History of Present Illness History of Present Illness Consult date: 08/07/22 Requesting physician: Jhonny Ibrahim Consult reason: shortness of breath Chief complaint: SOA History of present illness: This is a 62-year-old white gentleman who presented to the emergency department this morning with complaints of shortness of breath. He states that he has been having progressively worsening shortness of breath for about a month but this morning he woke up severely short of breath around 8 AM. He states that he could tell he was also little more short of breath last night before he went to bed. He states his shortness of breath is associated with a cough and at times this is a productive cough with clear sputum. He denies any chest pain or pressure. He does report having some recent sinus drainage as well. He he denies any fever, chills, nausea, vomiting, diarrhea, PND or orthopnea. The patient recently underwent left cardiac catheterization with no percutaneous intervention. He was actually supposed to follow-up in cardiology clinic today but due to his severe shortness of breath he decided to go to the emergency department instead. He denies chest pain or pressure. His troponin is negative. But his BNP is elevated over 4000. He was given a dose of IV Lasix in the emergency department and the patient states that his shortness of breath has improved somewhat. He also reports that the breathing treatment in the emergency department helped to improve his shortness of breath as well. The patient is going to be admitted to the hospital for IV diuresis. LHC: The left main artery Has proximal 10% stenoses The left anterior descending artery Is proximally patent and then has severe 90% concentric stenosis after the first septal assistant surveyor.? The LAD is then occluded The circumflex artery Is probably a codominant vessel and gives rise to small first obtuse marginal arteries and then occluded The right coronary artery Is codominant and has proximal 70% mid vessel 90% distal 90% stenoses and then occluded at the PDA and posterior lateral branch The WRAY ventriculogram reveals Severe left ventricular dilatation with severe global hypokinesis estimated ejection fraction 20 to 25% The left ventricular end-diastolic pressure Severely elevated at 30 mmHg CAREY to LAD is patent Saphenous vein graft to second obtuse marginal artery is patent.? The graft then skips to the third obtuse marginal artery with that limb being widely patent Saphenous vein graft to posterior descending artery widely patent Right renal artery large singular normal Left renal artery singular and has a mid vessel eccentric 40% stenosis with no demonstrable hemodynamic gradient upon pullback with a 5 Gu[place]ian J or 4 catheter IMPRESSION Coronary disease as described above Severe left ventricular dilatation with severely elevated LVEDP Adequate surgical revascularization with four-vessel bypass surgery Moderate left renal artery stenosis with no demonstrable hemodynamic gradient across the lesion PLAN 1. Control of hypertension 2. Diuresis 3. Standard therapy for systolic heart failure 4. Patient should be a candidate for AICD placement 5. Sleep study recommended 6. LDL less than 55 to be achieved with high intensity statin PFSH [facility] Disclaimer: The information contained in this section may have been updated after the patient was seen, as this information can be updated by other users. Medical History (Updated 08/07/22 @ 12:24 by Lauryn Becker APRN) Abnormal electrocardiogram [ECG] [EKG] Anxiety Coronary artery disease Depression Diabetes mellitus Dizziness Epididymitis Gastroesophageal reflux disease HFrEF (heart failure with reduced ejection fraction) History of TIA (transient ischemic attack) Hyperlipidemia Hypertension Impacted cerumen of right ear Insomnia Opiate withdrawal ANNA (obstructive sleep apnea) Palpitations TIA (transient ischemic attack) Surgical History (Updated
== END 2022-08-07 12:59 | disposition home or self-care (01) ==
PROVIDERS: Emergency Provider Emergency Medicine; PCP Physician Assistant
DX: I50.23 Acute on chronic systolic (congestive) heart failure (principal); E11.65 Type 2 diabetes mellitus with hyperglycemia; R79.89 Other specified abnormal findings of blood chemistry; R94.31 Abnormal electrocardiogram [ECG] [EKG]; I25.10 Atherosclerotic heart disease of native coronary artery without angina pectoris; I11.0 Hypertensive heart disease with heart failure; Z79.84 Long term (current) use of oral hypoglycemic drugs
CPT/HCPCS: 71045; 80048; 80076; 83690; 83880; 84484; 85025; 93005; 96374; 96376; 99285; C9803; U0003; U0005

== ENCOUNTER 2022-09-13 00:18 | Emergency (ER) | payer MEDICARE, SELFPAY ==
[2022-09-13 00:20] VITALS: BP 166/87; PULSE 99; RESP 22; TEMP 37.2; O2SAT 96; BMI 31.5
--- NOTE | 2022-09-13 00:25 | ECG_ITS ---
APPROVED REPORT Exam: Resting ECG HR:91 bpm ECG Measurements Heart Rate 91 AXES MA 154 P 69 QRSd 105 QRS -63 QT 370 T 81 QTc 419 Conclusion SINUS RHYTHM WITH OCCASIONAL SUPRAVENTRICULAR PREMATURE COMPLEXES PATTERN CONSISTENT WITH PULMONARY DISEASE LEFT ANTERIOR FASCICULAR BLOCK [QRS AXIS <= -45, QR IN I, RS IN II] LEFT VENTRICULAR HYPERTROPHY AND ST-T CHANGE [VOLTAGE CRITERIA PLUS ST/T ABNORMALITY] ABNORMAL ECG UNCONFIRMED REPORT Electronically signed by : Claudy Bush MD 09/13/2022 15:29:58
[2022-09-13 00:51] LABS: Coronavirus 19, PCR Not Detected (NotDetected); Influenza A, PCR Not Detected (NotDetected); Influenza B, PCR Not Detected (NotDetected)
--- NOTE | 2022-09-13 01:02 | PC.NURSE ---
Dr. Baker at BS
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
[2022-09-13 01:20] VITALS: BP 150/82; PULSE 80; RESP 20; TEMP 36.8; O2SAT 97
== END 2022-09-13 01:30 | disposition home or self-care (01) ==
PROVIDERS: Emergency Provider Family Medicine; PCP Physician Assistant
DX: R06.02 Shortness of breath (principal); R51.9 Headache, unspecified; F17.210 Nicotine dependence, cigarettes, uncomplicated
CPT/HCPCS: 93005; 96374; 99284; C9803; U0003; U0005

== ENCOUNTER 2022-10-09 11:50 | Emergency (ER) | payer MEDICARE, SELFPAY ==
[2022-10-09] VITALS (9 sets, daily range): BP systolic 109–160; BP diastolic 61–81; PULSE 66–74; RESP 18–22; TEMP 36.6–36.7; O2SAT 92–98; BMI 34.4
--- NOTE | 2022-10-09 12:15 | XR_ITS ---
FINAL REPORT CLINICAL HISTORY: Shortness of breath COMPARISON: 08/07/2022 FINDINGS: A single portable view of the chest was obtained. Cardiomegaly is noted. There is evidence of prior median sternotomy. There is pulmonary vascular congestion. There are worsening left lung opacities and worsening midline right upper thorax opacity worrisome for pneumonia. The bony thorax is intact. IMPRESSION: Findings worrisome for pneumonia. Reviewed, Interpreted and Dictated by Kirt Escobar III, MD Transcribed by Tresa Brambila Authenticated and [facility]
--- NOTE | 2022-10-09 12:15 | CT_ITS ---
FINAL REPORT TECHNIQUE: Thin section axial CT images of the chest were obtained with contrast. 3D reformatted images were also obtained. This study was performed with techniques to keep radiation doses as low as reasonably achievable (ALARA). Individualized dose reduction techniques using automated exposure control or adjustment of mA and/or kV according to the patient's size were employed. CLINICAL HISTORY: Shortness of breath COMPARISON: 04/19/2020 FINDINGS: There is no evidence of pulmonary embolism. There is no evidence of thoracic aortic aneurysm or dissection. Mild but worsening mediastinal adenopathy could be reactive or neoplastic. There is evidence of prior median sternotomy. Cardiomegaly is noted. There is a new medial right upper thorax soft tissue opacity measuring up to 6 cm which may represent localized pneumonia or mass. There is bibasilar atelectasis or scarring which is worse compared to the prior study. Limited images of the upper abdomen demonstrates stable left adrenal mass measuring 20 mm which may represent adenopathy or mild low lipoma. IMPRESSION: No evidence of pulmonary embolism. New soft tissue opacity medial right upper thorax, could represent focal pneumonia or mass. Recommend short-term interval follow-up chest CT or PET-CT. Worsening bibasilar atelectasis or scarring Worsening mediastinal adenopathy. Reviewed, Interpreted and Dictated by Kirt Escobar III, MD Transcribed by Tresa Brambila Authenticated and [facility]
--- NOTE | 2022-10-09 12:25 | PC.NURSE ---
rad aware of orders on pt
[2022-10-09 12:34] LABS: Basophils % 0.3 % (0.1-2.0); Eosinophils % 0.1 % (0.1-12.0); Hematocrit 41.7 % (42.0-52.0); Hemoglobin 13.4 g/dL (14.1-18.0); Lymphocytes # 1.1 K/mm3 (0.7-4.5); Lymphocytes % 11.5 % (10-50); Mean Corpuscular HGB Conc 32.2 g/dL (31.8-35.4); Mean Corpuscular Hemoglobin 28.6 pg (27.0-31.2); Mean Corpuscular Volume 88.8 fl (80-94); Mean Platelet Volume 10.2 fl (7.4-10.4); Monocytes # 0.9 K/mm3 (0.1-1.0); Monocytes % 9.3 % (1.7-9.3); Neutrophils # 7.6 K/mm3 (1.8-7.8); Neutrophils % 78.7 % (37.0-80.0); Platelet Count 198 K/mm3 (142-424); Red Blood Count 4.69 M/mm3 (4.60-6.20); Red Cell Distribution Width 14.8 % (11.5-17.5); White Blood Count 9.7 K/mm3 (4.8-10.8)
--- NOTE | 2022-10-09 12:35 | HMH.EDGENADL ---
Discharge Plan Disposition Patient Disposition: Home, Self-Care Condition: Fair Prescriptions Prescriptions: New cefdinir 300 mg capsule 300 mg PO BID 10 Days Qty: 20 0RF azithromycin 250 mg tablet 250 mg PO DAILY 4 Days Qty: 4 0RF Rx Instructions: start on day 2 of therapy albuterol sulfate 90 mcg/actuation HFA aerosol inhaler 2 inh inhalation QID PRN (Reason: shortness of breath or wheezing) Qty: 8.5 0RF prednisone 20 mg tablet 60 mg PO DAILY 4 Days Qty: 12 0RF No Action gabapentin 600 mg tablet 600 mg PO QID fluticasone propionate [Flonase Allergy Relief] 50 mcg/actuation spray,suspension 1 spray intranasal DAILY PRN (Reason: nasal congestion) Qty: 16 5RF Rx Instructions: administer into each nostril furosemide [Lasix] 40 mg tablet 40 mg PO BID Qty: 60 2RF oxycodone-acetaminophen 10-325 mg tablet 1 tab PO amlodipine 10 mg tablet 10 mg PO Entresto 49-51 mg tablet 1 tab PO BID glimepiride 4 mg tablet 4 mg PO DAILY Qty: 90 3RF mecobalamin (vitamin B12) 2,500 mcg tablet,chewable 2,500 mcg PO DAILY duloxetine 60 mg capsule,delayed release(DR/EC) 60 mg PO DAILY Qty: 90 3RF clopidogrel 75 mg tablet 75 mg PO DAILY Qty: 30 0RF carvedilol [Coreg] 12.5 mg tablet 37.5 mg PO BID Qty: 180 3RF Rx Instructions: must administer with a meal/food lisinopril-hydrochlorothiazide [Zestoretic] 20-12.5 mg tablet 2 tab PO BID Qty: 120 3RF metformin 500 mg tablet extended release 24 hr See Rx Instructions .ROUTE .COMPLEX Qty: 120 2RF Dose Instruction: TAKE 2 TABLETS BY MOUTH TWICE DAILY Rx Instructions: TAKE 2 TABLETS BY MOUTH TWICE DAILY omeprazole 40 mg capsule,delayed release(DR/EC) See Rx Instructions .ROUTE .COMPLEX Qty: 60 0RF Dose Instruction: TAKE 1 CAPSULE BY MOUTH TWICE A DAY SWALLOW WHOLE; DO NOT CRUSH, CHEW, DISSOLVE, CUT, BREAK Rx Instructions: TAKE 1 CAPSULE BY MOUTH TWICE A DAY SWALLOW WHOLE; DO NOT CRUSH, CHEW, DISSOLVE, CUT, BREAK aspirin 81 MG tablet,delayed release (DR/EC) 81 mg PO DAILY potassium gluconate 99 MG tablet 99 mg PO DAILY cholecalciferol (vitamin D3) 50 MCG tablet 50 mcg PO DAILY albuterol sulfate 90 mcg/actuation HFA aerosol inhaler 1 - 2 puff inhalation Q6H PRN (Reason: Wheezing) Qty: 1 0RF Referrals Follow up/Referrals: Anita Dumas PA [Primary Care Provider] - See instructions Activity Restrictions/Add. Instructions Additional Instructions/Restrictions: appointment with Dr. Hope pulmonary doctor October 23 at 1030 am. You will also receive paperwork in the mail. Clinical Impressions Clinical Impression: Mass of right lung, COPD with acute exacerbation Instructions Patient Instructions: Needle Biopsy of the Lung and Pleura, Chronic Obstructive Pulmonary Disease Print Language Print Language: Maltese Discharge ED Provider: Jordan Esparza General Adult HPI General Chief complaint: Weakness Stated complaint: Phy ref, sore throat, drainage, sweating Time Seen by Provider: 10/09/22 16:38 Mode of Arrival: Ambulatory Source of Information: Patient Limitations: No Limitations Description of Symptoms (Recalled from ER Triage Doc. by RN): 62 yo M sent to ED from pcp office for further work up. pt states that he has been feeling bad for the past 2-3 days. pt reports productive cough, sore throat, malaise, low grade fever. pt did test positive for strep at pcp office earlier today. History of Present Illness HPI narrative: Patient presents to the emergency department with a 2 to 3-day history of cough, congestion, shortness of breath, body aches, malaise, subjective fever, chills, sore throat. He was seen by his primary care physician today who noted that he was positive for strep as well as was diaphoretic and not well-appearing he was sent to the emergency department for further evaluation and treatment. [facility]
[2022-10-09 12:36] LABS: Sodium 133 mmol/L (136-145)
[2022-10-09 12:38] LABS: Alanine Aminotransferase 16 U/L (12-78); Alkaline Phosphatase 90 U/L (38-126); Aspartate Amino Transferase 20 U/L (17-59); Bilirubin,Total 0.8 mg/dl (0.2-1.3); Blood Urea Nitrogen 20 mg/dl (9-20); Creatinine Clearance Estimated 109 mL/min (50-200); Estimated Glomerular Filt Rate 86 ml/min (>60); GFR (African American) 104 ML/MIN (>60)
[2022-10-09 12:39] LABS: Albumin Level 3.8 g/dl (3.5-5.0); Calcium 9.1 mg/dl (8.4-10.2); Carbon Dioxide 32 mmol/L (22.0-30.0); Globulin 3.8 g/dL (1.3-3.2); Glucose 259 mg/dl (74-100); Potassium 2.9 mmoL/L (3.5-5.1); Total Protein,Serum 7.6 g/dl (6.3-8.2)
--- NOTE | 2022-10-09 12:39 | PC.NURSE ---
notified of critical lab result [id number]; potassium 2.9.
[2022-10-09 12:56] LABS: Anion Gap 15.9 mEq/L (5-15); Chloride 88 mmol/L (98-107); Magnesium 1.6 mg/dl (1.6-2.3)
[2022-10-09 13:02] LABS: Coronavirus 19, PCR Not Detected (NotDetected); Influenza A, PCR Not Detected (NotDetected); Influenza B, PCR Not Detected (NotDetected)
[2022-10-09 13:13] LABS: Troponin I 0.03 ng/ml (0.00-0.034)
--- NOTE | 2022-10-09 13:19 | ECG_ITS ---
APPROVED REPORT Exam: Resting ECG HR:73 bpm ECG Measurements Heart Rate 73 AXES MD 171 P 38 QRSd 112 QRS -57 QT 420 T 74 QTc 445 Conclusion SINUS RHYTHM WITH OCCASIONAL VENTRICULAR PREMATURE COMPLEXES LEFT ANTERIOR FASCICULAR BLOCK [QRS AXIS <= -45, QR IN I, RS IN II] LEFT VENTRICULAR HYPERTROPHY AND ST-T CHANGE [VOLTAGE CRITERIA PLUS ST/T ABNORMALITY] ABNORMAL ECG UNCONFIRMED REPORT Electronically signed by : Claudy Bush MD 10/09/2022 17:11:39
[2022-10-09 13:45] LABS: Lactic Acid 1.6 mmol/L (0.7-2.1)
--- NOTE | 2022-10-09 15:03 | PC.NURSE ---
spoke with hospitalist
--- NOTE | 2022-10-09 15:14 | PC.NURSE ---
placed call to [facility] for follow up with Pulmonary Medicine, images powershared to [facility]
--- NOTE | 2022-10-09 15:53 | PC.NURSE ---
called [facility] for follow up on pt , they are waiting on images
--- NOTE | 2022-10-09 16:07 | PC.NURSE ---
called radiology to update on patients scan being sent to [facility]. [employer] states she is working on it on her end, but is having difficulties with system.
--- NOTE | 2022-10-09 16:20 | PC.NURSE ---
SAROJ BEARD speaking with Dr. Askew
--- NOTE | 2022-10-09 16:26 | PC.NURSE ---
updated pt on POC pt given snack
--- NOTE | 2022-10-09 16:39 | PC.NURSE ---
[facility] advised pt is going to be seen by pulmonology here and dispatched home.
== END 2022-10-09 17:17 | disposition home or self-care (01) ==
PROVIDERS: Emergency Provider Emergency Medicine; PCP Physician Assistant
DX: J44.1 Chronic obstructive pulmonary disease with (acute) exacerbation (principal); I10 Essential (primary) hypertension; F17.210 Nicotine dependence, cigarettes, uncomplicated
CPT/HCPCS: 36415; 71045; 71275; 80053; 83605; 83735; 84145; 84484; 85025; 87040; 87635; 87636; 93005; 96361; 96374; 96375; 99285; C9803; J0456; J0696; Q9967; U0003; U0005

== ENCOUNTER → 2022-10-15 12:58 | Outpatient (CLI) | payer MEDICARE, SELFPAY ==
--- NOTE | 2022-10-15 13:04 | CT_ITS ---
FINAL REPORT TECHNIQUE: Axial images through the facial bones and sinuses was performed by computed tomography. This study was performed with techniques to keep radiation doses as low as reasonably achievable (ALARA). Individualized dose reduction techniques using automated exposure control or adjustment of mA and/or kV according to the patient's size were employed. CLINICAL HISTORY: Mastoiditis FINDINGS: There has been prior surgical subtotal resection of the right mastoid air cells. There is a craniotomy defect. Finding is well seen on image 56 of series 3. The residual right mastoid air cells are well aerated. The left mastoid air cells are well aerated. The ostiomeatal units are adequately patent. The paranasal sinuses demonstrate mild mucoperiosteal thickening of the right maxillary sinus. IMPRESSION: Right maxillary sinusitis. Prior surgical subtotal resection of the right mastoid air cells. Reviewed, Interpreted and Dictated by Khang Franco MD Transcribed by Kendy Hall Authenticated and [facility]
== END ==
LOC: RAD 12:59
PROVIDERS: PCP Physician Assistant; Visit Provider Otolaryngology
DX: Z90.89 Acquired absence of other organs (principal); H70.90 Unspecified mastoiditis, unspecified ear
CPT/HCPCS: 70486

== ENCOUNTER → 2022-10-23 11:53 | Outpatient (CLI) | payer MEDICARE, SELFPAY | PROVIDERS: Visit Provider Internal Medicine Pulmonary Disease | DX: R06.09 Other forms of dyspnea (principal); R05.9 Cough, unspecified; R06.2 Wheezing | CPT/HCPCS: 87070; 87205 ==

== ENCOUNTER 2022-11-13 20:36 | Emergency (ER) | payer MEDICARE, SELFPAY ==
[2022-11-13 20:36] VITALS: BP 104/74; PULSE 69; RESP 16; TEMP 36.6; O2SAT 97; BMI 30.4
[2022-11-13 20:40] VITALS: BP 104/74; PULSE 67; O2SAT 96
--- NOTE | 2022-11-13 20:44 | ECG_ITS ---
APPROVED REPORT Exam: Resting ECG HR:69 bpm ECG Measurements Heart Rate 69 AXES PA 178 P 73 QRSd 108 QRS -61 QT 433 T 85 QTc 452 Conclusion SINUS RHYTHM WITH SINUS ARRHYTHMIA PATTERN CONSISTENT WITH PULMONARY DISEASE LEFT ANTERIOR FASCICULAR BLOCK [QRS AXIS <= -45, QR IN I, RS IN II] LEFT VENTRICULAR HYPERTROPHY AND ST-T CHANGE [VOLTAGE CRITERIA PLUS ST/T ABNORMALITY] ABNORMAL ECG UNCONFIRMED REPORT Electronically signed by : Claudy Bush MD 11/14/2022 08:51:27
--- NOTE | 2022-11-13 20:48 | CT_ITS ---
PROCEDURE INFORMATION: Exam: CT Abdomen And Pelvis With Contrast Exam date and time: 11/13/2022 9:20 PM Age: 62 years old Clinical indication: Other: Diarrhea; Abdominal pain; Additional info: Abd pain TECHNIQUE: Imaging protocol: Computed tomography of the abdomen and pelvis with contrast. Radiation optimization: All CT scans at this facility use at least one of these dose optimization techniques: automated exposure control; mA and/or kV adjustment per patient size (includes targeted exams where dose is matched to clinical indication); or iterative reconstruction. Contrast material: ISOVUE; Contrast volume: 75 ml; Contrast route: IV; REPORTING DATA: Count of CT and Cardiac NM exams in prior 12 months: This patient has received 3 known CTs and 0 known cardiac nuclear medicine studies in the 12 months prior to the current study. COMPARISON: CT ABDOMEN PELVIS WO CON 07/24/2021 6:56 AM FINDINGS: Liver: Normal. No mass. Gallbladder and bile ducts: Cholecystectomy. Pancreas: Normal. No ductal dilation. Spleen: Normal. No splenomegaly. Adrenal glands: 2 cm left adrenal adenoma. Kidneys and ureters: Normal. No hydronephrosis. Stomach and bowel: Unremarkable. No obstruction. No mucosal thickening. Appendix: No evidence of appendicitis. Intraperitoneal space: Unremarkable. No free air. No significant fluid collection. Vasculature: Unremarkable. No abdominal aortic aneurysm. Lymph nodes: Unremarkable. No enlarged lymph nodes. Urinary bladder: Unremarkable as visualized. Reproductive: Unremarkable as visualized. Bones/joints: Unremarkable. No acute fracture. Soft tissues: Small left inguinal hernia with fat. IMPRESSION: No acute findings.
[2022-11-13 20:57] LABS: Basophils # 0.1 K/mm3 (0-0.2); Basophils % 0.7 % (0.1-2.0); Eosinophils # 0.2 K/mm3 (0.0-0.4); Eosinophils % 3.1 % (0.1-12.0); Hematocrit 48.8 % (42.0-52.0); Hemoglobin 15.6 g/dL (14.1-18.0); Lymphocytes # 2.7 K/mm3 (0.7-4.5); Lymphocytes % 39.5 % (10-50); Mean Corpuscular Hemoglobin 28.5 pg (27.0-31.2); Mean Corpuscular Volume 89.3 fl (80-94); Mean Platelet Volume 10.8 fl (7.4-10.4); Monocytes # 0.5 K/mm3 (0.1-1.0); Monocytes % 7.2 % (1.7-9.3); Neutrophils # 3.3 K/mm3 (1.8-7.8); Neutrophils % 49.5 % (37.0-80.0); Platelet Count 216 K/mm3 (142-424); Red Blood Count 5.46 M/mm3 (4.60-6.20); Red Cell Distribution Width 16.2 % (11.5-17.5); White Blood Count 6.7 K/mm3 (4.8-10.8)
--- NOTE | 2022-11-13 20:57 | XR_ITS ---
PROCEDURE INFORMATION: Exam: XR Chest Exam date and time: 11/13/2022 9:06 PM Age: 62 years old Clinical indication: Other: Abd pain; Prior surgery; Surgery date: 6+ months; Surgery type: Open heart TECHNIQUE: Imaging protocol: Radiologic exam of the chest. Views: 2 views. COMPARISON: CR XR CHEST PORTABLE 10/09/2022 1:47 PM FINDINGS: Lungs: Interstitial haziness in both lungs findings concerning for edema/pneumonia. Granulomatous changes. Pleural spaces: Unremarkable. No pleural effusion. No pneumothorax. Heart/Mediastinum: Cardiomegaly. Bones/joints: Midline sternotomy. Chronic left-sided rib fractures. IMPRESSION: Interstitial haziness in both lungs findings concerning for edema/pneumonia.
--- NOTE | 2022-11-13 20:57 | HMH.EDABDPAI ---
Discharge Plan Disposition Patient Disposition: Home, Self-Care Chief Complaint: Abdominal Pain Prescriptions Prescriptions: No Action gabapentin 600 mg tablet 600 mg PO QID oxycodone-acetaminophen 10-325 mg tablet 1 tab PO Q6 amlodipine 10 mg tablet 10 mg PO DAILY fluticasone propionate [Flonase Allergy Relief] 50 mcg/actuation spray,suspension 1 spray intranasal DAILY Qty: 16 3RF Rx Instructions: administer into each nostril mecobalamin (vitamin B12) 2,500 mcg tablet,chewable 2,500 mcg PO DAILY duloxetine 60 mg capsule,delayed release(DR/EC) 60 mg PO DAILY Qty: 90 3RF clopidogrel 75 mg tablet 75 mg PO DAILY Qty: 30 0RF aspirin 81 MG tablet,delayed release (DR/EC) 81 mg PO DAILY potassium gluconate 99 MG tablet 99 mg PO DAILY cholecalciferol (vitamin D3) 50 MCG tablet 50 mcg PO DAILY albuterol sulfate 90 mcg/actuation HFA aerosol inhaler 1 - 2 puff inhalation Q6H PRN (Reason: Wheezing) Qty: 1 0RF albuterol sulfate 90 mcg/actuation HFA aerosol inhaler 2 inh inhalation QID PRN (Reason: shortness of breath or wheezing) Qty: 8.5 0RF furosemide [Lasix] 40 mg tablet 40 mg PO BID carvedilol [Coreg] 12.5 mg tablet 37.5 mg PO BID Rx Instructions: must administer with a meal/food lisinopril-hydrochlorothiazide [Zestoretic] 20-12.5 mg tablet 2 tab PO BID omeprazole 40 mg capsule,delayed release(DR/EC) See Rx Instructions .ROUTE .COMPLEX Rx Instructions: TAKE 1 CAPSULE BY MOUTH TWICE A DAY SWALLOW WHOLE; DO NOT CRUSH, CHEW, DISSOLVE, CUT, BREAK glimepiride 4 mg tablet 4 mg PO DAILY metformin 500 mg tablet extended release 24 hr See Rx Instructions .ROUTE .COMPLEX Rx Instructions: TAKE 2 TABLETS BY MOUTH TWICE DAILY amoxicillin-pot clavulanate 875-125 mg tablet 1 tab PO Q12H Referrals Follow up/Referrals: Anita Dumas PA [Primary Care Provider] - See instructions Clinical Impressions Clinical Impression: Abdominal pain, GITA (acute kidney injury) Instructions Patient Instructions: DI for Acute Abdominal Pain Discharge ED Provider: Nabeel (NOMI)Chuck Abdominal Pain HPI General Chief Complaint: Abdominal Pain Stated Complaint: bruise on stomach Time Seen by Provider: 11/13/22 20:57 Mode of Arrival: Wheelchair Source of Information: Patient, Relative and Medical Record Limitations: No Limitations Description of Symptoms (Recalled from ER Triage Doc. by RN): pt c/o abd pain with diarrhea that started this evening. also pt noticed a bruise on abd x 3 days ago. History of Present Illness HPI narrative: onset of abd pain with no vomiting or fever diarrhea x2 today on abx MD complaint: abdominal pain Onset (ago): hour(s) Consistency: constant Location: diffuse Severity: moderate Associated symptoms: denies other symptoms Related Data Home Medications Medication Instructions Recorded Confirmed aspirin 81 mg tablet,delayed 81 mg PO DAILY Blood thinner 11/11/20 11/13/22 release cholecalciferol (vitamin D3) 50 50 mcg PO DAILY Supplement 11/11/20 11/13/22 mcg (2,000 unit) tablet potassium gluconate 595 mg (99 mg) 99 mg PO DAILY Supplement 11/11/20 11/13/22 tablet gabapentin 600 mg tablet 600 mg PO QID Pain 09/30/21 11/13/22 mecobalamin (vitamin B12) 2,500 2,500 mcg PO DAILY Supplement 07/21/22 11/13/22 mcg chewable tablet amlodipine 10 mg tablet 10 mg PO DAILY High Blood Pressure 10/09/22 11/13/22 oxycodone-acetaminophen 10 mg-325 1 tab PO Q6 Pain 10/09/22 11/13/22 mg tablet amoxicillin 875 mg-potassium 1 tab PO Q12H . 11/13/22 11/13/22 clavulanate 125 mg tablet carvedilol 12.5 mg tablet (Coreg) 37.5 mg PO BID High Blood Pressure 11/13/22 11/13/22 furosemide 40 mg tablet (Lasix) 40 mg PO BID Fluid 11/13/22 11/13/22 glimepiride 4 mg tablet 4 mg PO DAILY Diabetes 11/13/22 11/13/22 lisinopril 20 2 tab PO BID High Blood Pressure 11/13/22 11/13/22
[2022-11-13 21:01] VITALS: BP 62/39; PULSE 67; O2SAT 96
[2022-11-13 21:03] LABS: Alanine Aminotransferase 19 U/L (12-78); Albumin Level 4.6 g/dl (3.5-5.0); Albumin/Globulin Ratio 1.1 (1.1-1.8); Alkaline Phosphatase 110 U/L (38-126); Ammonia < 9 umol/L (9-30); Anion Gap 15.1 mEq/L (5-15); Aspartate Amino Transferase 26 U/L (17-59); Bilirubin,Total 0.6 mg/dl (0.2-1.3); Blood Urea Nitrogen 32 mg/dl (9-20); Calcium 9.2 mg/dl (8.4-10.2); Carbon Dioxide 36 mmol/L (22.0-30.0); Chloride 91 mmol/L (98-107); Creatinine Clearance Estimated 81 mL/min (50-200); Estimated Glomerular Filt Rate 56 ml/min (>60); GFR (African American) 68 ML/MIN (>60); Globulin 4.2 g/dL (1.3-3.2); Glucose 192 mg/dl (74-100); Lipase 36 U/L (23-300); Potassium 3.1 mmoL/L (3.5-5.1); Sodium 139 mmol/L (136-145); Total Protein,Serum 8.8 g/dl (6.3-8.2)
[2022-11-13 21:04] LABS: Amylase 75 U/L (30-110)
[2022-11-13 21:06] LABS: INR 0.97 (0.9-1.1); Prothrombin Time 10.5 seconds (10.1-12.5)
[2022-11-13 21:09] VITALS: BP 86/53; PULSE 75; O2SAT 96
[2022-11-13 21:09] LABS: C-Reactive Protein 1.7 mg/L (0-4)
--- NOTE | 2022-11-13 21:12 | PC.NURSE ---
Pt gone to RAD via wheelchair
[2022-11-13 21:22] LABS: Procalcitonin 0.103 ng/mL (0.0-2.0)
--- NOTE | 2022-11-13 21:26 | PC.NURSE ---
Pt returned from RAD
[2022-11-13 21:31] VITALS: BP 99/49; PULSE 54; O2SAT 92
[2022-11-13 21:31] LABS: Erythrocyte Sedimentation Rate 13 mm/hr (0-20)
--- NOTE | 2022-11-13 21:50 | PC.NURSE ---
Rounded on pt. Pt provided with pillow and light turned off per request. No other needs voiced.
--- NOTE | 2022-11-13 22:07 | PC.NURSE ---
Dr. Lees at
[2022-11-13 22:08] LABS: Acetone, Serum (Rapid) None Detected (None Detect)
[2022-11-13 22:13] VITALS: BP 97/44; PULSE 64; RESP 16; TEMP 36.6; O2SAT 96
== END 2022-11-13 22:27 | disposition home or self-care (01) ==
PROVIDERS: Emergency Provider Emergency Medicine; PCP Physician Assistant
DX: R10.9 Unspecified abdominal pain (principal); N17.9 Acute kidney failure, unspecified; R19.7 Diarrhea, unspecified; F41.9 Anxiety disorder, unspecified; I25.10 Atherosclerotic heart disease of native coronary artery without angina pectoris; F32.A Depression, unspecified; E11.9 Type 2 diabetes mellitus without complications; K21.9 Gastro-esophageal reflux disease without esophagitis; I11.0 Hypertensive heart disease with heart failure; I50.20 Unspecified systolic (congestive) heart failure; E78.5 Hyperlipidemia, unspecified; G47.33 Obstructive sleep apnea (adult) (pediatric); J43.9 Emphysema, unspecified; F17.210 Nicotine dependence, cigarettes, uncomplicated; Z86.73 Personal history of transient ischemic attack (TIA), and cerebral infarction without residual deficits
CPT/HCPCS: 71046; 74177; 80053; 82009; 82140; 82150; 83605; 83690; 84145; 85025; 85610; 85651; 86140; 87040; 93005; 96361; 96374; 96375; 99285; Q9967

== ENCOUNTER → 2022-11-17 09:30 | Outpatient (CLI) | payer MEDICARE, SELFPAY | LOC: RT 09:30 | PROVIDERS: PCP Physician Assistant; Visit Provider Internal Medicine | DX: E78.5 Hyperlipidemia, unspecified (principal); I25.10 Atherosclerotic heart disease of native coronary artery without angina pectoris; I50.20 Unspecified systolic (congestive) heart failure; I50.9 Heart failure, unspecified; I65.09 Occlusion and stenosis of unspecified vertebral artery; I72.5 Aneurysm of other precerebral arteries; R06.09 Other forms of dyspnea; R42 Dizziness and giddiness; Z72.0 Tobacco use; Z86.73 Personal history of transient ischemic attack (TIA), and cerebral infarction without residual deficits; Z95.1 Presence of aortocoronary bypass graft; I11.0 Hypertensive heart disease with heart failure | CPT/HCPCS: 93308 ==

== ENCOUNTER 2022-12-01 09:14 | Day surgery (SDC) | payer MEDICARE, SELFPAY ==
[2022-12-01] VITALS (9 sets, daily range): BP systolic 123–195; BP diastolic 75–112; PULSE 67–81; RESP 17–19; O2SAT 96–97; BMI 32.1
--- NOTE | 2022-12-01 | IR_ITS ---
APPROVED REPORT Patient Location: Outpatient Superintendent: DERRICK Lynn RT (R) PROCEDURES 1. Pocket formation for AICD. 2. Placement of atrial sensing and pacing coil into the right atrial appendage. 3. Placement of a ventricular sensing, pacing and shocking coil in the right ventricular apex. 4. Permanent AICD placement. INDICATION Systolic Congestive Heart Failure, ejection < 35%, [place] Heart Assoication Class 3 Congestive Heart Failure Informed consent was obtained prior to the procedure. COMPLICATIONS None Estimated Blood Loss: Less than 10 ML TECHNIQUE 1% Lidocaine with epinephrine used to anesthetized the left anterior aspect of the chest. Scalpel was used to make the initial cutaneous incision while electrocautery was used to dissect down tinto the fascia. The fascia was lifted off the pectoralis muscle and digitally manipulated creating a pocket for the defibrillator. The patient was then placed in Trendelenburg position and the subclavian vein was accessed 2 times via the Selinger technique. A 8 Salvadorean sheath was placed under fluoroscopic guidance into the subclavian vein. The dilator was removed from the sheath. Using fluoroscopic guidance, the ventricular lead was placed into the right ventricular apex, screwed and secured into place. Electronic interrogation proved acceptable thresholds and voltage within the lead. Using 3-0 silk, the ventricular lead was then secured into place and sheath peeled away. A 6 Salvadorean fresh sheath and dilator was placed over the existing wire. Using fluoroscopic guidance, the atrial lead was then placed into the right atrial appendage and screwed and secured in place. Electrical interrogation demonstrated acceptable thresholds and voltage number. The atrial lead was then secured into place using 3-0 silk and sheath peeled away. 1 gram of Ancef was used to flush the pocket. All 3 leads were connected to generator and tested via computer. The defibrillator then secured to the fascia. Monocryl was used to close the subcutaneous layers while reyes were used to close the cutaneous layer. A pressure dressing was placed and the patient was transferred to the postop holding area in stable condition for postoperative care. INTERROGATION Generator Model number: Narendra SEO [id number] Generator Serial number: [id number] Atrial lead model number: Tendril STS [id number] Atrial lead serial number: [id number] P-wave: 1.0 mV Impedence: 480 Ohms Threshold: 0.5V@0.5ms Right Ventricular lead model number: Venessa [id number] Right Ventricular lead serial number: [id number] R-wave: 10mV Impedence: 564 Ohms Threshold: 0.5V@0.5ms Shock Impedence: 440 Ohms Pacing Parameters: Mode: DDD Base/Max Track:60 ppm / 130 ppm No diaphragmatic stimulation at 10 volts. IMPRESSION 1. Successful pocket formation for AICD. 2. Successful placement of atrial sensing and pacing coil into the right atrial appendage. 3. Successful placement of a ventricular sensing, pacing and shocking coil in the right ventricular apex. 4. Successful permanent AICD placement. PLAN 1. Post Op Wound Care Electronically signed by : Devan Oconnell MD 12/02/2022 07:45:26
[2022-12-01 10:02] LABS: Basophils % 0.6 % (0.1-2.0); Eosinophils # 0.1 K/mm3 (0.0-0.4); Eosinophils % 1.5 % (0.1-12.0); Hematocrit 49.6 % (42.0-52.0); Hemoglobin 15.5 g/dL (14.1-18.0); Lymphocytes # 1.4 K/mm3 (0.7-4.5); Lymphocytes % 19.2 % (10-50); Mean Corpuscular HGB Conc 31.3 g/dL (31.8-35.4); Mean Corpuscular Hemoglobin 28.1 pg (27.0-31.2); Mean Corpuscular Volume 89.6 fl (80-94); Mean Platelet Volume 10.5 fl (7.4-10.4); Monocytes # 0.4 K/mm3 (0.1-1.0); Monocytes % 6.2 % (1.7-9.3); Neutrophils # 5.2 K/mm3 (1.8-7.8); Neutrophils % 72.6 % (37.0-80.0); Platelet Count 182 K/mm3 (142-424); Red Blood Count 5.53 M/mm3 (4.60-6.20); Red Cell Distribution Width 15.8 % (11.5-17.5); White Blood Count 7.1 K/mm3 (4.8-10.8)
[2022-12-01 10:09] LABS: Anion Gap 9.8 mEq/L (5-15); Blood Urea Nitrogen 18 mg/dl (9-20); Calcium 9.9 mg/dl (8.4-10.2); Carbon Dioxide 37 mmol/L (22.0-30.0); Chloride 97 mmol/L (98-107); Creatinine Clearance Estimated 104 mL/min (50-200); Estimated Glomerular Filt Rate 68 ml/min (>60); GFR (African American) 82 ML/MIN (>60); Glucose 325 mg/dl (74-100); Potassium 3.8 mmoL/L (3.5-5.1); Sodium 140 mmol/L (136-145)
[2022-12-01 10:11] LABS: Prothrombin Time 10.8 seconds (10.1-12.5)
--- NOTE | 2022-12-01 11:38 | XR_ITS ---
FINAL REPORT CLINICAL HISTORY: post pacemaker COMPARISON: 11/13/2022 FINDINGS: A portable view of the chest was obtained. Patient is again noted to be status post median sternotomy. There is a new left AICD present. Cardiac silhouette is within normal limits. The lungs are clear. There is no pleural effusion or pneumothorax. IMPRESSION: There is no pneumothorax present after AICD placement.. Reviewed, Interpreted and Dictated by Deanna Retana MD Transcribed by Min Rangel Authenticated and [facility]
--- NOTE | 2022-12-01 12:02 | SUR.PHASEII ---
radiology at bedside to obtain chest xray.
== END 2022-12-01 14:00 | disposition home or self-care (01) ==
PROVIDERS: PCP Physician Assistant; Visit Provider Internal Medicine
PROC: 0JH609Z Insertion of Cardiac Resynchronization Defibrillator Pulse Generator into Chest Subcutaneous Tissue and Fascia, Open Approach (ICD-10-PCS; CPT 33249; principal; 2022-12-01 11:45)
DX: I11.0 Hypertensive heart disease with heart failure (principal); F17.210 Nicotine dependence, cigarettes, uncomplicated; Z79.899 Other long term (current) drug therapy; Z45.02 Encounter for adjustment and management of automatic implantable cardiac defibrillator; E11.65 Type 2 diabetes mellitus with hyperglycemia; I50.23 Acute on chronic systolic (congestive) heart failure; I25.5 Ischemic cardiomyopathy; I65.03 Occlusion and stenosis of bilateral vertebral arteries; I72.5 Aneurysm of other precerebral arteries; Z79.84 Long term (current) use of oral hypoglycemic drugs
CPT/HCPCS: 33249; 71045; 80048; 85025; 85610; C1721; C1895; C1898; J2704

== ENCOUNTER → 2022-12-24 07:47 | Outpatient (CLI) | payer MEDICARE, SELFPAY ==
--- NOTE | 2022-12-24 07:51 | CT_ITS ---
FINAL REPORT TECHNIQUE: Axial CT images were performed from the lung apices through the upper abdomen. Coronal reformats were submitted. This study was performed with techniques to keep radiation doses as low as reasonably achievable (ALARA). Individualized dose reduction techniques using automated exposure control or adjustment of mA and/or kV according to the patient's size were employed. CLINICAL HISTORY: Lung Mass COMPARISON: 10/09/2022 FINDINGS: The patient is status post median sternotomy. Left subclavian pacer is identified. There is no axillary adenopathy. There is no hilar or mediastinal mass or adenopathy. Heart size is normal. There is no pericardial or pleural effusion. There has been interval resolution in the medial right upper lobe soft tissue opacity consistent with improved pneumonia. Note is made of mild scarring. There are multiple chronic left rib fractures. The patient is status post cholecystectomy. There is an 18 mm left adrenal nodule which is stable, may represent myelolipoma. IMPRESSION: Improved pneumonia in the medial right upper lobe. Stable left adrenal nodule, may represent myelolipoma. Reviewed, Interpreted and Dictated by Kirt Escobar III, MD Transcribed by Kendy Hall Authenticated and [facility]
== END ==
LOC: RAD 07:49
PROVIDERS: PCP Physician Assistant; Visit Provider Internal Medicine Pulmonary Disease
DX: R91.8 Other nonspecific abnormal finding of lung field (principal)
CPT/HCPCS: 71250

== ENCOUNTER → 2022-12-30 07:43 | Outpatient (CLI) | payer MEDICARE, SELFPAY ==
[2022-12-30 08:40] VITALS: PULSE 62; PULSE 68
== END ==
LOC: RT 07:43
PROVIDERS: PCP Physician Assistant; Visit Provider Internal Medicine Pulmonary Disease
DX: R06.02 Shortness of breath (principal)
CPT/HCPCS: 94060; 94618; 94640; 94727; 94729

== ENCOUNTER → 2023-02-11 11:26 | Outpatient (CLI) | payer MEDICARE, SELFPAY ==
--- NOTE | 2023-02-11 11:29 | CA_ITS ---
APPROVED REPORT EXAM: Comprehensive 2D, Doppler, and color-flow Echocardiogram Tennis Ball Cover Cementer: Collette Farah CRT Ht: 5 ft 10 in Wt: 236lbs BSA: 2.24 BP: 146/86 mmHg Indications: Congestive Heart Failure, CAD Abnormal ECG, Congestive Heart Failure, Diabetes, CAD, Hyperlipidemia, Hypertension/HDD, EF 40% 07/02/22 2D Dimensions LVOT 2.00 cm (M/F) 1.5-2.5 LVEF (Katz's) 46.00 % LV Volume 122.00 mL LA Volume 18.00 mL LA Volume Index 8.00 mL/m2 (M/F) 16-34 M-Mode Dimensions RVDd 3.80 cm (0.9-2.6) LA Diam 4.60 cm (1.9-4.0) LVDd 5.10 cm (3.5-5.7) Ao Diam 4.30 cm (2.0-3.7) LVDs 3.50 cm (3.5-5.7) AV Cusp 2.00 cm (1.5-2.6) IVSd 2.30 cm (0.6-1.1) PWd 1.40 cm (0.6-1.1) EF (Teich) 59.00% FS 31.40% EDV (Teich) 124.00 mL ESV (Teich) 50.90 mL LV Diastology E/A Ratio 0.40 MED E' 9.07 (< 7 cm/sec) MED A' 8.09 cm/s E'/MED E' Ratio 4.60 (>14) LAT E' 13.30 (<10 cm/sec) LAT A' 9.65 cm/s E/LAT E' Ratio 3.10 (>14) Aortic Valve AoV Peak Vito. 141.00 (50-130 cm/s) AI PHT 407.00 ms AO Peak GR. 8.00 mmHg Mitral Valve MV E Max Vito. 41.50 (40-130 cm/s) MV A Velocity 94.30 (40-130 cm/s) E/A Ratio 0.40 Pulmonary Valve PA Accel Time 102.00 (>120 msec) Tricuspid Valve TR P. Velocity 255.00 cm/s RAP Estimate 10.00 mmHg RVSP 36.00 mmHg Left Ventricle The left ventricle is normal size. The left ventricular systolic function is mildly reduced. There is increased LV wall thickness. There is mild global hypokinesis present. The left ventricular diastolic function is normal. LVEF is 40-45% Right Ventricle Right ventricle is mildly dilated. The right ventricular systolic function is normal. Atria The left atrium size is normal. The right atrium size is normal. Aortic Valve The aortic valve is mildly thickened. There is no aortic valvular stenosis. Trace aortic regurgitation. Mitral Valve The mitral valve is normal in structure. No evidence of mitral valve stenosis. Trace mitral regurgitation. Tricuspid Valve The tricuspid valve leaflets are thin and pliable. Mild tricuspid regurgitation. RVSP is 30-35 mmHg. Pulmonic Valve The pulmonary valve is normal in structure. Mild pulmonic regurgitation. Great Vessels The aortic root is normal in size. The ascending aorta is normal in size. IVC is normal in size and collapses >50% with inspiration. Pericardium There is no pericardial effusion. Other Information Study Quality: Fair Conclusion Normal LV size with mild reduction in LV systolic function. Mild RV dilation with normal RV function. No significant valvular stenosis or regurgitation. Compared to prior study from 11/2022, the LVEF is mildly improved from prior but continues to be reduced. Further evaluation for LV systolic function and cardiomyopathy is recommended with cardiac MRI (cardiomyopathy protocol). Electronically signed by : Deepthi Holly MD 02/14/2023 19:20:03
[2023-02-11 12:41] LABS: Basophils % 0.4 % (0.1-2.0); Eosinophils # 0.1 K/mm3 (0.0-0.4); Eosinophils % 2.6 % (0.1-12.0); Hematocrit 45.6 % (42.0-52.0); Hemoglobin 14.3 g/dL (14.1-18.0); Lymphocytes # 1.7 K/mm3 (0.7-4.5); Lymphocytes % 31.8 % (10-50); Mean Corpuscular HGB Conc 31.4 g/dL (31.8-35.4); Mean Corpuscular Hemoglobin 29.5 pg (27.0-31.2); Mean Corpuscular Volume 93.9 fl (80-94); Mean Platelet Volume 9.3 fl (7.4-10.4); Monocytes # 0.3 K/mm3 (0.1-1.0); Monocytes % 5.9 % (1.7-9.3); Neutrophils # 3.2 K/mm3 (1.8-7.8); Neutrophils % 59.3 % (37.0-80.0); Platelet Count 197 K/mm3 (142-424); Red Blood Count 4.86 M/mm3 (4.60-6.20); Red Cell Distribution Width 14.2 % (11.5-17.5); White Blood Count 5.4 K/mm3 (4.8-10.8)
[2023-02-11 13:19] LABS: Alanine Aminotransferase 17 U/L (12-78); Albumin Level 4.1 g/dl (3.5-5.0); Alkaline Phosphatase 80 U/L (38-126); Anion Gap 10.4 mEq/L (5-15); Aspartate Amino Transferase 20 U/L (17-59); Bilirubin,Direct 0.1 mg/dl (0.0-0.4); Bilirubin,Indirect 0.2 mg/dL (0.0-0.9); Bilirubin,Total 0.3 mg/dl (0.2-1.3); Bilirubin,Unconjugated 0.2 mg/dL (0.0-1.1); Blood Urea Nitrogen 22 mg/dl (9-20); Calcium 9.4 mg/dl (8.4-10.2); Carbon Dioxide 36 mmol/L (22.0-30.0); Chloride 98 mmol/L (98-107); Chol/HDL Ratio 6.1 (1-3.5); Cholesterol 213 mg/dl (140-200); Estimated Glomerular Filt Rate 76 ml/min (>60); GFR (African American) 92 ML/MIN (>60); Glucose 193 mg/dl (74-100); HDL Cholesterol 35 mg/dl (40-60); Magnesium 1.6 mg/dl (1.6-2.3); Potassium 3.4 mmoL/L (3.5-5.1); Sodium 141 mmol/L (136-145); Total Protein,Serum 7.2 g/dl (6.3-8.2); Triglycerides 254 mg/dl (30-150); VLDL Cholesterol 51 mg/dL (0-40)
[2023-02-11 13:30] LABS: Direct LDL Cholesterol 132.88 mg/dL (100-129)
[2023-02-11 13:49] LABS: Thyroid Stimulating Hormone 0.16 uIU/mL (0.465-4.68)
[2023-02-11 13:54] LABS: Free T4 (Free Thyroxine) 1.18 ng/dl (0.78-2.19)
== END ==
LOC: RT 11:27
PROVIDERS: PCP Physician Assistant; Visit Provider Internal Medicine
DX: I50.20 Unspecified systolic (congestive) heart failure (principal); I50.9 Heart failure, unspecified; I51.9 Heart disease, unspecified; E11.65 Type 2 diabetes mellitus with hyperglycemia; Z79.84 Long term (current) use of oral hypoglycemic drugs
CPT/HCPCS: 36415; 80048; 80061; 80076; 83735; 84439; 84443; 85025; 93306

== ENCOUNTER → 2023-02-17 16:18 | Outpatient (CLI) | payer MEDICARE, SELFPAY ==
[2023-02-17 12:48] LABS: Creatinine,Urine Random 65 mg/dL (Not Estab.)
[2023-02-17 13:06] LABS: Anion Gap 13.6 mEq/L (5-15); Blood Urea Nitrogen 33 mg/dl (9-20); Carbon Dioxide 34 mmol/L (22.0-30.0); Chloride 94 mmol/L (98-107); Estimated Glomerular Filt Rate 61 ml/min (>60); GFR (African American) 74 ML/MIN (>60); Glucose 194 mg/dl (74-100); Potassium 3.6 mmoL/L (3.5-5.1); Sodium 138 mmol/L (136-145)
[2023-02-17 13:23] LABS: Free Thyroxine Index 3.6 ug/dL (5.93-13.13); T4 (Thyroxine) 9.6 ug/dl (5.53-11.0); Triiodothryronine (T3) Uptake 38 % (23.5-40.5)
[2023-02-17 13:36] LABS: Thyroid Stimulating Hormone 0.68 uIU/mL (0.465-4.68)
== END ==
PROVIDERS: PCP Physician Assistant; Visit Provider Physician Assistant
DX: E11.9 Type 2 diabetes mellitus without complications (principal); R53.83 Other fatigue; Z79.84 Long term (current) use of oral hypoglycemic drugs
CPT/HCPCS: 80048; 82043; 82570; 84436; 84443; 84479

== ENCOUNTER 2023-03-06 18:26 | Emergency (ER) | payer MEDICARE, SELFPAY ==
[2023-03-06] VITALS (8 sets, daily range): BP systolic 100–152; BP diastolic 69–96; PULSE 69–80; RESP 12–17; TEMP 36.7–36.8; O2SAT 92–98; BMI 30.6
--- NOTE | 2023-03-06 18:26 | ECG_ITS ---
APPROVED REPORT Exam: Resting ECG HR:83 bpm ECG Measurements Heart Rate 83 AXES CA 164 P 60 QRSd 104 QRS -58 QT 396 T 64 QTc 436 Conclusion SINUS RHYTHM left atrial abnormality PATTERN CONSISTENT WITH PULMONARY DISEASE LEFT ANTERIOR FASCICULAR BLOCK [QRS AXIS <= -45, QR IN I, RS IN II] LEFT VENTRICULAR HYPERTROPHY AND ST-T CHANGE [VOLTAGE CRITERIA PLUS ST/T ABNORMALITY] ABNORMAL ECG UNCONFIRMED REPORT Electronically signed by : Claudy Bush MD 03/07/2023 10:37:01
--- NOTE | 2023-03-06 19:01 | CT_ITS ---
PROCEDURE INFORMATION: Exam: CTA Head With Contrast, Arteriography Exam date and time: 03/06/2023 7:25 PM Age: 63 years old Clinical indication: Stroke-like symptoms; Headache and speech disturbance; Additional info: Dysarthria, nih 3 TECHNIQUE: Imaging protocol: Computed tomographic angiography of the head with contrast. Exam focused on the arteries. 3D rendering (Not supervised by radiologist): MIP and/or 3D reconstructed images were created by the technologist. Radiation optimization: All CT scans at this facility use at least one of these dose optimization techniques: automated exposure control; mA and/or kV adjustment per patient size (includes targeted exams where dose is matched to clinical indication); or iterative reconstruction. Contrast material: ISOVUE; Contrast volume: 100 ml; Contrast route: INTRAVENOUS (IV); REPORTING DATA: Count of CT and Cardiac NM exams in prior 12 months: This patient has received 5 known CTs and 0 known cardiac nuclear medicine studies in the 12 months prior to the current study. COMPARISON: MR ANGIO HEAD WO CON 06/06/2022 4:11 PM FINDINGS: ANTERIOR CIRCULATION: Right internal carotid artery: Moderate calcific plaque in the right ICA petrous segment. Moderate calcific plaque in the cavernous and supraclinoid segments. Mild stenosis of less than 50% in the supraclinoid segment. Right middle cerebral artery: Unremarkable. No occlusion or significant stenosis. No aneurysm. Right anterior cerebral artery: Unremarkable. No occlusion or significant stenosis. No aneurysm. The anterior communicating artery is unremarkable. Left internal carotid artery: The left ICA petrous segment is unremarkable. Moderate-severe calcific atherosclerosis in the left ICA cavernous and supraclinoid segments with short segment mild-moderate stenosis in the supraclinoid segment estimated at 50%. Left middle cerebral artery: Unremarkable. No occlusion or significant stenosis. No aneurysm. Left anterior cerebral artery: Unremarkable. No occlusion or significant stenosis. No aneurysm. POSTERIOR CIRCULATION: Right vertebral artery: Complete occlusion of the distal right vertebral artery at the C1 level with proximally 1.5 cm occluded segment before retrograde reconstitution is demonstrated distally. Right PICA branches enhance appropriately, probably due to contralateral collateralization. No aneurysm. Left vertebral artery: Left vertebral artery is dominant. There is moderate distal mixed plaque with short segment moderate stenosis in the distal intracranial segment estimated at 60-70 % stenosis, mildly increased from 2020. No occlusion. No aneurysm. 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 No occlusion or significant stenosis. Mild proximal calcific plaque. Right posterior cerebral artery: Unremarkable. No occlusion or significant stenosis. No aneurysm. Left posterior cerebral artery: Unremarkable. No occlusion or significant stenosis. No aneurysm. Superior sagittal sinus: The dural venous sinuses and major cortical veins enhance appropriately without evidence of thrombosis. Brain: No enhancing brain lesions or vascular malformations are identified. Right temporal lobe chronic infarct again noted. Cerebral ventricles: Mild compensatory ventriculomegaly secondary to atrophy. Bones/joints: Unremarkable. No acute fracture. Soft tissues: Unremarkable. IMPRESSION: 1. Occluded distal right vertebral artery at the C1 level, with moderate mixed calcific plaque in the segment beyond the occlusion. This is age indeterminate and might represent chronic atherosclerotic vascular occlusion, although new since 04/18/2020. There is mild retro
--- NOTE | 2023-03-06 19:01 | CT_ITS ---
PROCEDURE INFORMATION: Exam: CTA Neck With Contrast Exam date and time: 03/06/2023 7:25 PM Age: 63 years old Clinical indication: Stroke-like symptoms; Headache and speech disturbance; Additional info: Dysarthria, nih 3 TECHNIQUE: Imaging protocol: Computed tomographic angiography of the neck with contrast. 3D rendering (Not supervised by radiologist): MIP and/or 3D reconstructed images were created by the technologist. Radiation optimization: All CT scans at this facility use at least one of these dose optimization techniques: automated exposure control; mA and/or kV adjustment per patient size (includes targeted exams where dose is matched to clinical indication); or iterative reconstruction. Contrast material: ISOVUE; Contrast volume: 100 ml; Contrast route: INTRAVENOUS (IV); REPORTING DATA: Count of CT and Cardiac NM exams in prior 12 months: This patient has received 5 known CTs and 0 known cardiac nuclear medicine studies in the 12 months prior to the current study. COMPARISON: SD CT ANGIO NECK 04/18/2020 8:10 PM FINDINGS: Tubes, catheters and devices: Cardiac pacemaker marginally visualized. Right common carotid artery: Mild calcific plaque. No stenosis. No dissection or occlusion. Right internal carotid artery: Moderate calcific plaque in the right carotid bulb and proximal ICA segment. Moderate tortuosity in the mid segment. No stenosis. No dissection or occlusion. Right external carotid artery: Mild post ostial calcific plaque. No stenosis. No dissection or occlusion. Left common carotid artery: Mild tortuosity. Mild proximal calcific plaque. Mild distal soft plaque. No stenosis. No dissection or occlusion. Left internal carotid artery: Mild-moderate mixed plaque in the left carotid bulb and proximal most ICA. Mild left ICA tortuosity. No stenosis. No dissection or occlusion. Left external carotid artery: Mild proximal calcific plaque. No stenosis. No dissection or occlusion. Right vertebral artery: Small/hypoplastic right vertebral artery, anatomic variant. There is distal calcific plaque. The distal right vertebral artery demonstrates occlusion at its dural penetration site at the C1 level which is age indeterminate but new since 04/18/2020, with moderate calcific plaque in the distal segment beyond this point. There is retrograde flow reconstitution in the distal most right vertebral artery and enhancement is maintained in the right PICA. Left vertebral artery: Left vertebral artery is dominant. Moderate distal mixed plaque with short segment moderate stenosis of 60-70% in the distal intracranial segment. No dissection or occlusion. Brachiocephalic artery: The brachiocephalic artery demonstrates mild calcific plaque without stenosis. Right subclavian artery: The right subclavian artery demonstrates mild calcific plaque without stenosis. Left subclavian artery: The left subclavian artery demonstrates mild calcific plaque without stenosis. Aorta: The visualized aortic arch demonstrates moderate ectasia and mild calcific plaque without evidence of dissection or gross aneurysm. Thyroid: The thyroid gland is unremarkable. Soft tissues: No significant soft tissue swelling or hematoma. Bones/joints: No acute osseous abnormalities are identified. Moderate-severe disc degenerative changes C5-C6 and C6-C7. Prior median sternotomy. Lungs: The visualized pulmonary apices are clear. IMPRESSION: 1. There is occlusion of the distal right vertebral artery at the C1 level which is new since 04/18/2020. There is retrograde enhancement in the distal most right vertebral artery segment, and the right PICA enhances appropriately. 2. There is moderate stenosis of the distal left vertebral artery intracrania
--- NOTE | 2023-03-06 19:07 | PC.NURSE ---
Rounded on patient, patient provided swabs at this time.
--- NOTE | 2023-03-06 19:12 | CT_ITS ---
PROCEDURE INFORMATION: Exam: CT Head Without Contrast Exam date and time: 03/06/2023 7:16 PM Age: 63 years old Clinical indication: Stroke-like symptoms; Headache and speech disturbance; Additional info: Slurred speech TECHNIQUE: Imaging protocol: Computed tomography of the head without contrast. Radiation optimization: All CT scans at this facility use at least one of these dose optimization techniques: automated exposure control; mA and/or kV adjustment per patient size (includes targeted exams where dose is matched to clinical indication); or iterative reconstruction. Other technique: STROKE PROTOCOL was implemented. REPORTING DATA: Count of CT and Cardiac NM exams in prior 12 months: This patient has received 5 known CTs and 0 known cardiac nuclear medicine studies in the 12 months prior to the current study. COMPARISON: MR HEAD/BRAIN WO CON 06/06/2022 4:11 PM FINDINGS: Brain: Mild-moderate generalized cerebral/cerebellar atrophy. Mild bilateral white matter hypodensities which are nonspecific but most commonly associated with chronic microvascular ischemia in this age group. The IACs are grossly normal. No extra-axial fluid collections. Mild prominence of the peripheral CSF spaces, felt to be related to generalized atrophy. No evidence of acute intracranial hemorrhage. No CT evidence of large territory acute or subacute intracranial ischemia/infarct. Small chronic infarct in the right temporal lobe unchanged. 4 mm chronic lacunar infarct in the right basal ganglia unchanged. No intracranial mass lesions. No midline shift or herniation. Cerebral ventricles: Slight compensatory ventriculomegaly secondary to central atrophy. Pituitary gland and sella: The sella is grossly normal. Paranasal sinuses: Visualized paranasal sinuses are clear. Mastoid air cells: Left mastoid air cells are clear. Prior right mastoidectomy unchanged in appearance with a few remaining partially opacified right inferior mastoid air cells which are unchanged. Orbital cavities: No acute intraorbital findings. Bones/joints: No acute osseous abnormalities. Chronic mild/shallow blowout fracture in the medial right orbital wall is unchanged. Soft tissues: Mild scalp soft tissue thickening/stranding over the high midline occipital distribution is unchanged from 05/25/2022, favoring chronic scarring/fibrosis. Vasculature: Moderate calcific atherosclerosis. No asymmetric vascular hyperdensities suggestive of thrombosis are identified. Small 5 x 4 mm basilar tip aneurysm grossly unchanged from CT angiogram 04/18/2020 with no evidence of acute rupture. Other findings: Loza-white matter differentiation is well maintained. IMPRESSION: 1. No acute intracranial process. No intracranial hemorrhage or mass effect. 2. Chronic infarct in the right temporal lobe MCA distribution unchanged. Small chronic lacunar infarct in the right basal ganglia unchanged. 3. A 5 mm basilar tip aneurysm is grossly unchanged with no evidence of rupture. 4. Atrophy and microvascular changes consistent with age. 5. Moderate calcific atherosclerosis. 6. Prior right mastoidectomy. There are residual opacified right inferior mastoid air cells with sclerosis which may represent a residual mild element of chronic mastoiditis, versus incidental postoperative opacification, unchanged. 7. These findings initiated a critical results reporting process per stroke protocol. An addendum will be issued at the time of clinician notification. ASSESSMENT: ASPECTS ([place] Stroke Program Early CT Score) is 10.
[2023-03-06 19:15] LABS: Basophils % 0.5 % (0.1-2.0); Eosinophils % 0.1 % (0.1-12.0); Hematocrit 48.1 % (42.0-52.0); Hemoglobin 16.4 g/dL (14.1-18.0); Lymphocytes # 1.4 K/mm3 (0.7-4.5); Lymphocytes % 18.1 % (10-50); Mean Corpuscular HGB Conc 34.1 g/dL (31.8-35.4); Mean Corpuscular Hemoglobin 31.2 pg (27.0-31.2); Mean Corpuscular Volume 91.4 fl (80-94); Mean Platelet Volume 10.7 fl (7.4-10.4); Monocytes % 12.2 % (1.7-9.3); Neutrophils # 5.5 K/mm3 (1.8-7.8); Neutrophils % 69.1 % (37.0-80.0); Platelet Count 209 K/mm3 (142-424); Red Blood Count 5.27 M/mm3 (4.60-6.20); Red Cell Distribution Width 14.6 % (11.5-17.5)
[2023-03-06 19:20] LABS: Alanine Aminotransferase 29 U/L (12-78); Albumin Level 4.8 g/dl (3.5-5.0); Albumin/Globulin Ratio 1.2 (1.1-1.8); Alkaline Phosphatase 87 U/L (38-126); Anion Gap 17.2 mEq/L (5-15); Aspartate Amino Transferase 29 U/L (17-59); Bilirubin,Total 0.8 mg/dl (0.2-1.3); Blood Urea Nitrogen 18 mg/dl (9-20); Calcium 9.7 mg/dl (8.4-10.2); Carbon Dioxide 28 mmol/L (22.0-30.0); Chloride 96 mmol/L (98-107); Chol/HDL Ratio 4.9 (1-3.5); Cholesterol 146 mg/dl (140-200); Creatinine Clearance Estimated 95 mL/min (50-200); Estimated Glomerular Filt Rate 61 ml/min (>60); GFR (African American) 74 ML/MIN (>60); Globulin 3.9 g/dL (1.3-3.2); Glucose 347 mg/dl (74-100); HDL Cholesterol 30 mg/dl (40-60); Potassium 3.2 mmoL/L (3.5-5.1); Sodium 138 mmol/L (136-145); Total Protein,Serum 8.7 g/dl (6.3-8.2); Triglycerides 131 mg/dl (30-150); VLDL Cholesterol 26 mg/dL (0-40)
[2023-03-06 19:23] LABS: Activated Partial Thrombo Time 27.2 seconds (22.8-30.6); INR 1.07 (0.9-1.1); Prothrombin Time 11.5 seconds (10.1-12.5)
[2023-03-06 19:31] LABS: Direct LDL Cholesterol 86.35 mg/dL (100-129)
[2023-03-06 19:34] LABS: Troponin I 0.05 ng/ml (0.00-0.034)
--- NOTE | 2023-03-06 19:34 | PC.NURSE ---
Dr. Anne EDMONDSON
--- NOTE | 2023-03-06 20:12 | HMH.EDGENADL ---
Discharge Plan Disposition Patient Disposition: Left Against Medical Advice Chief Complaint: Neuro Symptoms/Deficit Prescriptions Prescriptions: No Action gabapentin 600 mg tablet 600 mg PO QID oxycodone-acetaminophen 10-325 mg tablet 1 tab PO Q6 fluticasone propionate [Flonase Allergy Relief] 50 mcg/actuation spray,suspension 1 spray intranasal DAILY Qty: 16 3RF Rx Instructions: administer into each nostril Incruse Ellipta 62.5 mcg/actuation blister with device 1 inh inhalation DAILY 90 Days Qty: 90 3RF mecobalamin (vitamin B12) 2,500 mcg tablet,chewable 2,500 mcg PO DAILY carvedilol 12.5 mg tablet See Rx Instructions .ROUTE .COMPLEX Qty: 180 2RF Dose Instruction: TAKE 3 TABLETS BY MOUTH TWICE A DAY MUST ADMINISTER WITH A MEAL/FOOD Rx Instructions: TAKE 3 TABLETS BY MOUTH TWICE A DAY MUST ADMINISTER WITH A MEAL/FOOD Januvia 100 mg tablet 100 mg PO QDAY 90 Days Qty: 90 0RF duloxetine 60 mg capsule,delayed release(DR/EC) 60 mg PO DAILY Qty: 90 3RF amlodipine 10 mg tablet 10 mg PO DAILY Qty: 90 1RF clopidogrel 75 mg tablet See Rx Instructions .ROUTE .COMPLEX Qty: 90 2RF Dose Instruction: TAKE 1 TABLET BY MOUTH DAILY FOR BLOOD THINNER Rx Instructions: TAKE 1 TABLET BY MOUTH DAILY FOR BLOOD THINNER lisinopril-hydrochlorothiazide 20-12.5 mg tablet See Rx Instructions .ROUTE .COMPLEX Qty: 120 2RF Dose Instruction: TAKE 2 TABS BY MOUTH TWICE A DAY Rx Instructions: TAKE 2 TABS BY MOUTH TWICE A DAY furosemide 40 mg tablet See Rx Instructions .ROUTE .COMPLEX Qty: 60 1RF Dose Instruction: TAKE 1 TABLET BY MOUTH TWICE A DAY Rx Instructions: TAKE 1 TABLET BY MOUTH TWICE A DAY Jardiance 10 mg tablet 10 mg PO DAILY Qty: 30 2RF omeprazole 40 mg capsule,delayed release(DR/EC) See Rx Instructions .ROUTE .COMPLEX Qty: 60 0RF Dose Instruction: TAKE 1 CAPSULE BY MOUTH TWICE A DAY SWALLOW WHOLE; DO NOT CRUSH, CHEW, DISSOLVE, CUT, BREAK Rx Instructions: TAKE 1 CAPSULE BY MOUTH TWICE A DAY SWALLOW WHOLE; DO NOT CRUSH, CHEW, DISSOLVE, CUT, BREAK atorvastatin [Lipitor] 40 mg tablet 40 mg PO DAILY Qty: 30 2RF potassium gluconate 595 mg (99 mg) tablet 1,190 mg PO DAILY Qty: 30 2RF metformin 500 mg tablet extended release 24 hr See Rx Instructions .ROUTE .COMPLEX Qty: 120 2RF Dose Instruction: TAKE 2 TABLETS BY MOUTH TWICE DAILY Rx Instructions: TAKE 2 TABLETS BY MOUTH TWICE DAILY aspirin 81 MG tablet,delayed release (DR/EC) 81 mg PO DAILY cholecalciferol (vitamin D3) 50 MCG tablet 50 mcg PO DAILY albuterol sulfate 90 mcg/actuation HFA aerosol inhaler 1 - 2 puff inhalation Q6H PRN (Reason: Wheezing) Qty: 1 0RF glimepiride 4 mg tablet 4 mg PO DAILY Referrals Follow up/Referrals: Anita Dumas PA [Primary Care Provider] - See instructions Activity Restrictions/Add. Instructions Additional Instructions/Restrictions: Call your family doctor to establish care for this visit to the emergency department and schedule follow-up within 48 hours to ensure improvement. If you have any worsening of your condition or any other concerning signs or symptoms, return to the emergency department or your primary care doctor for further evaluation. Follow-up with neurology, neurosurgery, and cardiology as discussed. Full dose aspirin 325 mg daily. Clinical Impressions Clinical Impression: Cluster headache, Non-ST elevation UT (NSTEMI) Discharge ED Provider: Prasanna Rodríguez General Adult [facility] General Chief complaint: Neuro Symptoms/Deficit Stated complaint: Weakness Time Seen by Provider: 03/06/23 18:30 Mode of Arrival: Family Vehicle Source of Information: Patient Limitations: No Limitations Description of Symptoms (Recalled from ER Triage Doc. by RN): Pt c/o severe headache since yesterday morning. He reports it is behind his left eye. No kn
[2023-03-06 22:14] LABS: Troponin I 0.06 ng/ml (0.00-0.034)
== END 2023-03-06 22:57 | disposition left against medical advice (07) ==
PROVIDERS: Emergency Provider Emergency Medicine; PCP Physician Assistant
DX: G44.009 Cluster headache syndrome, unspecified, not intractable (principal); I21.4 Non-ST elevation (NSTEMI) myocardial infarction; E87.6 Hypokalemia; E11.65 Type 2 diabetes mellitus with hyperglycemia; I11.0 Hypertensive heart disease with heart failure; I50.9 Heart failure, unspecified; E78.5 Hyperlipidemia, unspecified; I25.10 Atherosclerotic heart disease of native coronary artery without angina pectoris; K21.9 Gastro-esophageal reflux disease without esophagitis; G47.33 Obstructive sleep apnea (adult) (pediatric); F17.210 Nicotine dependence, cigarettes, uncomplicated; J43.8 Other emphysema; Z95.0 Presence of cardiac pacemaker; Z86.73 Personal history of transient ischemic attack (TIA), and cerebral infarction without residual deficits; Z79.84 Long term (current) use of oral hypoglycemic drugs
CPT/HCPCS: 70450; 70496; 70498; 80053; 80061; 84484; 85025; 85610; 85730; 93005; 96361; 96374; 96375; 99285; J0131; Q9967

== ENCOUNTER → 2023-03-17 07:33 | Outpatient (CLI) | payer MEDICARE, SELFPAY ==
--- NOTE | 2023-03-17 07:38 | US_ITS ---
FINAL REPORT CLINICAL HISTORY: low tsh level COMPARISON: 07/23/2021 FINDINGS: THYROID ULTRASOUND: The right lobe of the thyroid gland measures 4.4 x 1.8 x 2.5 cm in size. There are several nodules in the right lobe of the thyroid. The largest nodule measures 9 x 7 x 5 mm in size, was 8 x 5 x 5 on the prior exam. It is hypoechoic, solid, a TI-RADS category 4 nodule. Another right lobe nodule measures 7 x 7 x 6 mm in size, was 7 x 6 x 6 mm in size. This nodule is solid, hypoechoic, a TI-RADS category 4 nodule. Several other small nodules are present on the right side. The left lobe of the thyroid gland measures 4.1 x 1.8 x 1.7 cm in size. No definite focal nodules or masses are present. The isthmus of the thyroid measures 4 mm in thickness. IMPRESSION: No significant change noted in predominantly right side subcentimeter thyroid nodules. By TI-RADS criteria, no follow-up is necessary at this time. Reviewed, Interpreted and Dictated by Kirt Escobar III, MD Transcribed by Kelly Vuong Authenticated and [facility]
--- NOTE | 2023-03-17 07:38 | US_ITS ---
FINAL REPORT CLINICAL HISTORY: abd distention FINDINGS: ABDOMINAL ULTRASOUND COMPLETE: TECHNIQUE: Ultrasound images of the abdomen were obtained. FINDINGS: The liver is increased echogenicity. The gallbladder is surgically. The common duct is normal. The pancreas is partially obscured. The right kidney measures 12.2 cm in length and is normal in echogenicity without hydronephrosis. The left kidney measures 12.3 cm in length and is normal in echogenicity without hydronephrosis. The spleen is unremarkable. The aorta is normal in caliber. The vena cava is unremarkable. IMPRESSION: Fatty infiltration of the liver Reviewed, Interpreted and Dictated by Kirt Escobar III, MD Transcribed by Jasen Hernandez Authenticated and . [facility]
== END ==
LOC: RAD 07:34
PROVIDERS: PCP Physician Assistant; Visit Provider Physician Assistant
DX: R16.0 Hepatomegaly, not elsewhere classified (principal); R79.89 Other specified abnormal findings of blood chemistry; R94.6 Abnormal results of thyroid function studies; Z87.19 Personal history of other diseases of the digestive system
CPT/HCPCS: 76536; 76700

== ENCOUNTER → 2023-03-25 10:25 | Outpatient (CLI) | payer MEDICARE, SELFPAY ==
--- NOTE | 2023-03-25 10:25 | CT_ITS ---
FINAL REPORT TECHNIQUE: Thin section axial images were obtained through the paranasal sinuses without contrast. CLINICAL HISTORY: sinusitis COMPARISON: 10/15/2022 FINDINGS: There is mucoperiosteal thickening in the right maxillary sinus, chronic but increased since the prior CT of September. The paranasal sinuses are otherwise clear. The right ostiomeatal complex may be occluded by mucoperiosteal thickening. There is deformity of the right lamina papyracea, chronic. The bilateral ethmoid infundibulum are patent. There is no significant nasal septal deviation. The patient is postop right mastoidectomy as noted on the prior CT. Remaining soft tissues are within normal limits. IMPRESSION: Mucoperiosteal thickening in the right maxillary sinus, chronic but increased since the prior CT of September. Right ostiomeatal complex may be occluded by mucoperiosteal thickening. Reviewed, Interpreted and Dictated by Deanna Retana MD Transcribed by Kelly Vuong Authenticated and [facility]
== END ==
LOC: RAD 10:25
PROVIDERS: PCP Physician Assistant; Visit Provider Nurse Practitioner
DX: J32.9 Chronic sinusitis, unspecified (principal); J34.3 Hypertrophy of nasal turbinates; Z72.0 Tobacco use
CPT/HCPCS: 70486

== ENCOUNTER 2023-05-16 19:12 | Emergency (ER) | payer MEDICARE, SELFPAY ==
[2023-05-16 19:23] VITALS: BP 145/101; PULSE 88; RESP 17; TEMP 36.7; O2SAT 96; BMI 31.8
[2023-05-16 19:45] VITALS: PULSE 85; RESP 20; O2SAT 95
--- NOTE | 2023-05-16 19:46 | ECG_ITS ---
APPROVED REPORT Exam: Resting ECG HR:80 bpm ECG Measurements Heart Rate 80 AXES MI 175 P 66 QRSd 101 QRS -58 QT 391 T 115 QTc 426 Conclusion SINUS RHYTHM WITH OCCASIONAL SUPRAVENTRICULAR PREMATURE COMPLEXES INCOMPLETE RIGHT BUNDLE BRANCH BLOCK [90+ ms QRS DURATION, TERMINAL R IN V1/V2, 40+ ms S IN I/aVL/V4/V5/V6] LEFT ANTERIOR FASCICULAR BLOCK [QRS AXIS <= -45, QR IN I, RS IN II] MODERATE VOLTAGE CRITERIA FOR LVH, CONSIDER NORMAL VARIANT [MEETS CRITERIA IN ONE OF: R(aVL), S(V1), R(V5), R(V5/V6)+S(V1)] POSSIBLE ANTERIOR MYOCARDIAL INFARCTION , PROBABLY OLD [30 ms Q WAVE IN V3/V4, OR R < 0.2 mV IN V4] MODERATE T-WAVE ABNORMALITY, CONSIDER LATERAL ISCHEMIA [-0.1+ mV T-WAVE IN I/aVL/V5/V6] ABNORMAL ECG UNCONFIRMED REPORT Electronically signed by : Claudy Bush MD 05/18/2023 08:25:46
--- NOTE | 2023-05-16 19:46 | XR_ITS ---
PROCEDURE INFORMATION: Exam: XR Chest Exam date and time: 05/16/2023 8:17 PM Age: 63 years old Clinical indication: Dyspnea; Prior surgery; Surgery date: 6+ months; Surgery type: Pacemaker TECHNIQUE: Imaging protocol: Radiologic exam of the chest. Views: 1 view. COMPARISON: CT CHEST WO CON 12/24/2022 7:58 AM FINDINGS: Tubes, catheters and devices: Left subclavian transvenous atrioventricular pacemaker is in expected position. Lungs: Pulmonary venous distension. Pleural spaces: Trace right pleural effusion. No pneumothorax on either side. Heart/Mediastinum: Severe enlargement of the cardiac silhouette. Left atrial appendage clamp noted. Vasculature: Mediastinal surgical clips and vascular markers suggest prior myocardial revascularization. Bones/joints: Age appropriate. IMPRESSION: Cardiomegaly and pulmonary venous distension are concerning for left heart failure. Trace right pleural effusion noted. No pulmonary edema appreciated at this time.
--- NOTE | 2023-05-16 19:46 | CT_ITS ---
PROCEDURE INFORMATION: Exam: CT Abdomen And Pelvis With Contrast Exam date and time: 05/16/2023 8:16 PM Age: 63 years old Clinical indication: Bloating; Abdominal pain; Localized; Right lower quadrant (rlq); Additional info: Rlq abd pain and diffuse abd distention TECHNIQUE: Imaging protocol: Computed tomography of the abdomen and pelvis with contrast. Radiation optimization: All CT scans at this facility use at least one of these dose optimization techniques: automated exposure control; mA and/or kV adjustment per patient size (includes targeted exams where dose is matched to clinical indication); or iterative reconstruction. Contrast material: ISOVUE; Contrast volume: 75 ml; Contrast route: IV; REPORTING DATA: Count of CT and Cardiac NM exams in prior 12 months: This patient has received 9 known CTs and 0 known cardiac nuclear medicine studies in the 12 months prior to the current study. COMPARISON: CT ABDOMEN PELVIS W CON 11/13/2022 9:20 PM FINDINGS: Tubes, catheters and devices: AICD/pacemaker lead noted in the right ventricle. Pleural spaces: No pleural fluid. Small right pleural effusion. Heart: Moderate to severe cardiomegaly. Coronary arteries: Advanced coronary artery calcification. Liver: Liver measures 21.6 cm in length. Gallbladder and bile ducts: Prior cholecystectomy. No biliary tree dilation or high-density retained stones appreciated. Pancreas: Normal. No ductal dilation. Spleen: Spleen measures 14.0 cm in length. Adrenal glands: 2.1 cm left adrenal nodule demonstrates attenuation coefficient of-24 Hounsfield units. Normal right adrenal. Kidneys and ureters: Kidneys enhance symmetrically and demonstrate no evidence of mass, obstruction, or inflammation. Punctate intrarenal calculus on the left. Stomach and bowel: Postprandial stomach. Normal caliber small bowel. Distal colonic diverticulosis without evidence of acute diverticulitis. No bowel wall pneumatosis. Appendix: Normal appendix is confirmed. Intraperitoneal space: Trace ascites. No free air. Vasculature: Moderate aortoiliac calcific atherosclerosis without aneurysm. Mesenteric vessels enhance normally. No portal venous gas. Lymph nodes: No enlarged lymph nodes. Urinary bladder: Unremarkable as visualized. Reproductive: Physiologic appearance for age. Bones/joints: Mild spinal degenerative change with patent spinal canal. Probable hemangioma at L1. Soft tissues: Mild body wall edema. Fat containing direct and indirect left inguinal hernias. IMPRESSION: 1. Body wall edema, trace pleural effusion, and trace ascites may reflect heart failure in the setting of cardiomegaly. No evidence of pulmonary edema. 2. No acute abnormality identified to explain right lower quadrant pain. A normal appendix is confirmed and there is no evidence of urolithiasis, bowel obstruction, or bowel inflammation. No evidence of bowel ischemia or infarction. 3. 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
--- NOTE | 2023-05-16 19:47 | ED_ITS ---
Discharge Plan Disposition Patient Disposition: Home, Self-Care Prescriptions Prescriptions: New bumetanide 2 mg tablet 2 mg PO DAILY 30 Days Qty: 30 0RF Rx Instructions: Please take 2 mg once a day you may double the dose to 2 mg twice daily if you do not have adequate urine response No Action gabapentin 600 mg tablet 600 mg PO QID oxycodone-acetaminophen 10-325 mg tablet 1 tab PO Q6 fluticasone propionate [Flonase Allergy Relief] 50 mcg/actuation spray,suspension 1 spray intranasal DAILY Qty: 16 3RF Rx Instructions: administer into each nostril Incruse Ellipta 62.5 mcg/actuation blister with device 1 inh inhalation DAILY 90 Days Qty: 90 3RF mecobalamin (vitamin B12) 2,500 mcg tablet,chewable 2,500 mcg PO DAILY carvedilol 12.5 mg tablet See Rx Instructions .ROUTE .COMPLEX Qty: 180 2RF Dose Instruction: TAKE 3 TABLETS BY MOUTH TWICE A DAY MUST ADMINISTER WITH A MEAL/FOOD Rx Instructions: TAKE 3 TABLETS BY MOUTH TWICE A DAY MUST ADMINISTER WITH A MEAL/FOOD Januvia 100 mg tablet 100 mg PO QDAY 90 Days Qty: 90 0RF azelastine 137 mcg (0.1 %) aerosol,spray 2 spray intranasal BID Qty: 30 3RF Rx Instructions: administer into each nostril amlodipine 10 mg tablet 10 mg PO DAILY Qty: 90 1RF clopidogrel 75 mg tablet See Rx Instructions .ROUTE .COMPLEX Qty: 90 2RF Dose Instruction: TAKE 1 TABLET BY MOUTH DAILY FOR BLOOD THINNER Rx Instructions: TAKE 1 TABLET BY MOUTH DAILY FOR BLOOD THINNER atorvastatin [Lipitor] 40 mg tablet 40 mg PO DAILY Qty: 30 2RF potassium gluconate 595 mg (99 mg) tablet 1,190 mg PO DAILY Qty: 30 2RF metformin 500 mg tablet extended release 24 hr See Rx Instructions .ROUTE .COMPLEX Qty: 120 2RF Dose Instruction: TAKE 2 TABLETS BY MOUTH TWICE DAILY Rx Instructions: TAKE 2 TABLETS BY MOUTH TWICE DAILY omeprazole 40 mg capsule,delayed release(DR/EC) See Rx Instructions .ROUTE .COMPLEX Qty: 60 2RF Dose Instruction: TAKE 1 CAPSULE BY MOUTH TWICE A DAY SWALLOW WHOLE; DO NOT CRUSH, CHEW, DISSOLVE, CUT, BREAK Rx Instructions: TAKE 1 CAPSULE BY MOUTH TWICE A DAY SWALLOW WHOLE; DO NOT CRUSH, CHEW, DISSOLVE, CUT, BREAK glimepiride 4 mg tablet See Rx Instructions .ROUTE .COMPLEX Qty: 90 2RF Dose Instruction: TAKE 1 TABLET BY MOUTH ONCE DAILY Rx Instructions: TAKE 1 TABLET BY MOUTH ONCE DAILY duloxetine 60 mg capsule,delayed release(DR/EC) See Rx Instructions .ROUTE .COMPLEX Qty: 90 2RF Dose Instruction: TAKE 1 CAPSULE BY MOUTH DAILY FOR DEPRESSION Rx Instructions: TAKE 1 CAPSULE BY MOUTH DAILY FOR DEPRESSION lisinopril-hydrochlorothiazide 20-12.5 mg tablet See Rx Instructions .ROUTE .COMPLEX Qty: 120 2RF Dose Instruction: TAKE 2 TABS BY MOUTH TWICE A DAY Rx Instructions: TAKE 2 TABS BY MOUTH TWICE A DAY aspirin 81 MG tablet,delayed release (DR/EC) 81 mg PO DAILY cholecalciferol (vitamin D3) 50 MCG tablet 50 mcg PO DAILY furosemide 40 mg tablet 40 mg PO BID Referrals Follow up/Referrals: Anita Dumas PA [Primary Care Provider] - See instructions Activity Restrictions/Add. Instructions Additional Instructions/Restrictions: Please stop your Lasix per Dr. Oconnell's instructions. I prescribed you Bumex 2 mg to take once a day but you may take this twice a day for not getting adequate urine response Dr. Oconnell is expecting to see you in his clinic at 9 AM on Thursday. Return with any significant worsening symptoms. Clinical Impressions Clinical Impression: Abdominal pain, Abdominal distension, Bilateral leg edema, Biventricular heart failure Instructions Patient Instructions: DI for Acute Abdominal Pain Discharge ED Provider: Samy Bullard General Adult HPI General Chief complaint: Abdominal Pain Stated complaint: SOA, stomach swollen and pain Time Seen by Provider: 05/16/23 19:41 Mode of Arrival: Wheelchair Source of Information: Patient and Spouse Limitations: No Limitations Description of Symptoms (Recalled from ER Triage Doc. by RN): 63 yo male presents with CC of distended abdomen and difficulty breathing as a result of my belly is too big . States approx 1 week ago, he noticed he was starting to have difficulty with bowel movements, and as of today it has been 4 days without a solid movement. Had an episode or two of light diarrhea. Additionally states he was recently sick and decreased his fluid intake, all while continuing to be on his 'fluid pill' and simultaneously noting a decrease in UOP. Afebrile. Mentions decreased appetite related to nausea. Chronic pain diagnosis, also takes pain medications. No stool aid meds on board. NKA. Placed on Januvia 1 month ago and that is only med change in recent history. 1+ppd SMOKER, denies etoh, denies rec drug. A&o x4. History of Present Illness HPI narrative: Patient is a 63-year-old male with a history of heart failure with reduced ejection fraction with an AICD presenting today with primarily abdominal pain. States this has been worsening over the last several days and is located mainly in his lower abdomen. States that his abdomen is so distended that he is having a hard time breathing. Upon further questioning he was asked if he has heart failure he was unsure of this but states that he had an AICD that was placed due to a low ejection fraction and he is also been diagnosed with this in the past. He is on Lasix but has had very low urine output recently. Also states his bilateral lower extremity edema is worse than normal. Has been able to lay flat but has a CPAP machine at night. States his exertional dyspnea has gotten very severe and he short of breath even almost at rest. He is followed by Dr. Oconnell. Related Data Home Medications Medication Instructions Recorded Confirmed aspirin 81 mg tablet,delayed 81 mg PO DAILY Blood thinner 11/11/20 03/31/23 release cholecalciferol (vitamin D3) 50 50 mcg PO DAILY Supplement 11/11/20 03/31/23 mcg (2,000 unit) tablet gabapentin 600 mg tablet 600 mg PO QID Pain 09/30/21 03/31/23 mecobalamin (vitamin B12) 2,500 2,500 mcg PO DAILY Supplement 07/21/22 03/31/23 mcg chewable tablet oxycodone-acetaminophen 10 mg-325 1 tab PO Q6 Pain 10/09/22 03/31/23 mg tablet furosemide 40 mg tablet 40 mg PO BID 05/16/23 05/16/23 Previous Rx's Medication Instructions Recorded fluticasone propionate 50 1 spray intranasal DAILY Sinus 10/20/22 mcg/actuation nasal infection #16 grams spray,suspension (Flonase Allergy Relief) amlodipine 10 mg tablet 10 mg PO DAILY High Blood Pressure 12/15/22 #90 tabs clopidogrel 75 mg tablet See Rx Instructions .Route 12/17/22 .COMPLEX #90 tabs carvedilol 12.5 mg tablet See Rx Instructions .Route 01/05/23 .COMPLEX #180 tabs atorvastatin 40 mg tablet (Lipitor) 40 mg PO DAILY #30 tabs 02/11/23 potassium gluconate 595 mg (99 mg) 1,190 mg PO DAILY #30 tabs 02/11/23 tablet sitagliptin phosphate 100 mg 100 mg PO QDAY 90 days #90 tabs 02/17/23 tablet (Januvia) umeclidinium 62.5 mcg/actuation 1 inh inhalation DAILY 90 days #90 02/26/23 blister powder for inhalation ea (Incruse Ellipta) metformin 500 mg tablet,extended See Rx Instructions .Route 03/03/23 release 24 hr .COMPLEX #120 tabs azelastine 137 mcg (0.1 %) nasal 2 spray intranasal BID sinusitis 03/10/23 spray aerosol #30 mL glimepiride 4 mg tablet See Rx Instructions .Route 03/18/23 .COMPLEX #90 tabs omeprazole 40 mg capsule,delayed See Rx Instructions .Route 03/18/23 release .COMPLEX #60 caps duloxetine 60 mg capsule,delayed See Rx Instructions .Route 03/31/23 release .COMPLEX #90 caps lisinopril 20 See Rx Instructions .Route 05/01/23 mg-hydrochlorothiazide 12.5 mg .COMPLEX #120 tabs tablet bumetanide 2 mg tablet 2 mg PO DAILY 30 days #30 tabs 05/16/23 Allergies Allergy/AdvReac Type Severity Reaction Status Date / Time dobutamine AdvReac Unknown Hypertensio Verified 03/31/23 10:50 n [facility] Disclaimer: The information contained in this section may have been updated after the patient was seen, as this information can be updated by other users. Medical History Abnormal electrocardiogram [ECG] [EKG] Anxiety Bilateral chronic serous otitis media Cardiac pacemaker in situ Coronary artery disease Depression Deviated nasal septum Diabetes mellitus Dizziness Dyspnea on exertion Epididymitis Gastroesophageal reflux disease HFrEF (heart failure with reduced ejection fraction) History of TIA (transient ischemic attack) Hyperlipidemia Hypertension Hypertrophy of inferior nasal turbinate Impacted cerumen of right ear Insomnia Lung mass Mixed restrictive and obstructive lung disease Nodule of right lung Opiate withdrawal ANNA (obstructive sleep apnea) Palpitations Pulmonary emphysema Right maxillary sinusitis Sinusitis Smoking greater than 30 pack years TIA (transient ischemic attack) Surgical History History of coronary artery bypass graft History of right mastoidectomy Family History Other Diabetes Social History Smoking Status: Unknown if ever smoked alcohol intake: never substance use type: denies use current occupational status: disabled Travel in the last 8 weeks: None household members: spouse and children housing: house ROS Obtained: Yes All systems reviewed & no additional complaints except as documented Physical Exam General General appearance: alert Respiratory Respiratory exam: Absent respiratory distress Cardiovascular Cardiovascular exam: Present regular rate and other (Bilateral pitting edema symmetric lower extremities); Absent tachycardia Abdominal Exam Abdominal exam: Present distention (Diffusely tender no fluid wave there is tenderness palpation in the suprapubic and right lower quadrant regions) Neurological Exam Neurological exam: Present alert and oriented X3 Medical Decision Making George Inquiry Pt receiving controlled substance: No Vital Signs: 05/16/23 19:23 05/16/23 19:45 05/16/23 21:00 Temperature 98.1 F Temperature Source Oral Pulse Rate 85 80 Pulse Rate [Right Brachial] 88 Respiratory Rate 17 20 18 Blood Pressure [Right Arm] 145/101 H Blood Pressure Mean [Right Arm] 115 Blood Pressure Source [Right Arm] Automatic Cuff Blood Pressure Position [Right Arm] Sitting 02 Sat by Pulse Oximetry 96 95 95 Oxygen Delivery Method Room Air Room Air Room Air Lab Data Lab results reviewed: Yes I reviewed the patient's lab results. Lab Results 05/16/23 19:22: WBC 8.7, RBC 4.81, Hgb 13.4 L, Hct 42.9, MCV 89.2, MCH 27.8, MCHC 31.1 L, RDW 15.5, Plt Count 224, MPV 11.1 H, Neut % (Auto) 68.3, Lymph % (Auto) 23.4, [place] % (Auto) 6.4, Eos % (Auto) 1.1, Baso % (Auto) 0.7, Neut # ( Auto) 6.0, Lymph # (Auto) 2.1, [place] # (Auto) 0.6, Eos # (Auto) 0.1, Baso # (Auto) 0.1, PT 12.3, INR 1.15 H, Sodium 135 L, Potassium 4.0, Chloride 98, Carb on Dioxide 28, Anion Gap 13.0, BUN 27 H, Creatinine 1.50 H, Estimated Creat Clear 74, Estimated GFR 47 L, Est GFR ( Amer) 57 L, Glucose 196 H, Calcium 8.8, Total Bilirubin 0.5, AST 38, ALT 30, Alkaline Phosphatase 92, Troponin I 0.03, NT-Pro-B Natriuret Pep 62137 H, Total Protein 7.0, Albumin 4.1, Globulin 2.9, Albumin/Globulin Ratio 1.4, Lipase 23 05/16/23 19:22 05/16/23 19:22 Orders (Tests/Meds): ED MEDICATIONS Generic Name Dose Route Start Last Admin Trade Name Freq PRN Reason Stop Dose Admin Bumetanide 2 mg 05/16/23 21:54 Bumetanide 1mg/4ml Vial IV 05/16/23 21:55 ONCE ONE Discontinued Medications Generic Name Dose Route Start Last Admin Trade Name Freq PRN Reason Stop Dose Admin Iopamidol 75 ml 05/16/23 20:24 05/16/23 20:25 Iopamidol-370 (76%);100ml Bottle IV 05/16/23 20:25 75 ml ONCE ONE Administration Sodium Chloride 10 ml 05/16/23 20:24 05/16/23 20:25 Sodium Chloride 0.9% 10ml Syr (Rad Only) IV 05/16/23 20:25 10 ml ONCE ONE Administration ORDERS Category Date Time Status CT abdomen pelvis w con Stat Cat Scan 05/16/23 19:46 Completed CXR --portable [XR chest portable] Stat Exams 05/16/23 19:46 Completed BNP [Brain Natriuretic Peptide] Stat Lab 05/16/23 19:22 Completed CBC w/Auto Diff [Complete Blood Count Auto Diff] Stat Lab 05/16/23 19:22 Completed CMP [Comprehensive Metabolic Panel] Stat Lab 05/16/23 19:22 Completed Lipase Stat Lab 05/16/23 19:22 Completed PT INR [Prothrombin Time INR] Stat Lab 05/16/23 19:22 Completed Trop I [Troponin I] Stat Lab 05/16/23 19:22 Completed Troponin I Q3H Lab 05/16/23 23:00 Ordered Troponin I Q3H Lab 05/17/23 02:00 Ordered UA [Urinalysis and Microscopic] Stat Lab 05/16/23 19:46 Ordered Medical Decision Narrative: Patient is a 63-year-old male presenting today primarily with abdominal pain but upon further questioning and physical exam it seems as if he has significant abdominal distention and edema throughout his entire abdomen and lower extremities I suspect primarily from heart failure. He is quite tender in his abdomen we will get a CT scan to make sure there is no other pathology that is causing this. Also will check chest x-ray troponin BNP liver function kidney function urinalysis etc. Will reassess after this workup is complete. EKG performed which I personally interpreted shows a ventricular rate of 80 sinus rhythm there is a left axis deviation incomplete right bundle branch block and left anterior fascicular block nonspecific T wave abnormalities but no other acute ST segment elevations or depressions to suggest acute ischemia. Assessment 9:58 AM chest x-ray returned which I personally interpreted shows some mild vascular edema but no acute cardiopulmonary emergency CT scan of the abdomen pelvis performed which showed no acute abnormalities on my personal interpretation but did have abdominal wall edema this is consistent with radiology read as well. This is all consistent with biventricular failure that is decompensated he is not any respiratory distress not requiring any oxygen supplementation. On review of his chart he is on 40 mg twice daily of Lasix. I spoke with Dr. Oconnell on the phone discussed the case given the fact that he is maybe 20 pounds up from baseline (tough to tell from following his weights) but not any significant distress we will go ahead and give him a dose of 2 mg of IV Bumex and transition his Lasix to Bumex he has been told to stop his Lasix and he will start taking Bumex 2 mg once a day and escalate that to 2 mg twice daily if he is not having adequate response. Also Dr. oconnell will see him on Thursday in clinic at 9 AM. Patient is aware of this and agreeable to this plan. Critical Care Critical Care Time Critical Care Time: No
[2023-05-16 19:54] LABS: Basophils # 0.1 K/mm3 (0-0.2); Basophils % 0.7 % (0.1-2.0); Chloride 98 mmol/L (98-107); Eosinophils # 0.1 K/mm3 (0.0-0.4); Eosinophils % 1.1 % (0.1-12.0); Hematocrit 42.9 % (42.0-52.0); Hemoglobin 13.4 g/dL (14.1-18.0); Lymphocytes # 2.1 K/mm3 (0.7-4.5); Lymphocytes % 23.4 % (10-50); Mean Corpuscular HGB Conc 31.1 g/dL (31.8-35.4); Mean Corpuscular Hemoglobin 27.8 pg (27.0-31.2); Mean Corpuscular Volume 89.2 fl (80-94); Mean Platelet Volume 11.1 fl (7.4-10.4); Monocytes # 0.6 K/mm3 (0.1-1.0); Monocytes % 6.4 % (1.7-9.3); Neutrophils % 68.3 % (37.0-80.0); Platelet Count 224 K/mm3 (142-424); Red Blood Count 4.81 M/mm3 (4.60-6.20); Red Cell Distribution Width 15.5 % (11.5-17.5); White Blood Count 8.7 K/mm3 (4.8-10.8)
[2023-05-16 19:55] LABS: Sodium 135 mmol/L (136-145)
--- NOTE | 2023-05-16 19:55 | PC.NURSE ---
Pt provided urinal aware of specimen needed
[2023-05-16 19:57] LABS: Alanine Aminotransferase 30 U/L (12-78); Alkaline Phosphatase 92 U/L (38-126); Aspartate Amino Transferase 38 U/L (17-59); Bilirubin,Total 0.5 mg/dl (0.2-1.3); Blood Urea Nitrogen 27 mg/dl (9-20); Carbon Dioxide 28 mmol/L (22.0-30.0); Creatinine Clearance Estimated 74 mL/min (50-200); Estimated Glomerular Filt Rate 47 ml/min (>60); GFR (African American) 57 ML/MIN (>60); Lipase 23 U/L (23-300)
[2023-05-16 19:58] LABS: Albumin Level 4.1 g/dl (3.5-5.0); Albumin/Globulin Ratio 1.4 (1.1-1.8); Calcium 8.8 mg/dl (8.4-10.2); Globulin 2.9 g/dL (1.3-3.2); Glucose 196 mg/dl (74-100)
[2023-05-16 20:00] LABS: INR 1.15 (0.9-1.1); Prothrombin Time 12.3 seconds (10.1-12.5)
[2023-05-16 20:08] LABS: NT Pro Brain Natriuretic Pep. 25100 pg/mL (0-125)
[2023-05-16 20:10] LABS: Troponin I 0.03 ng/ml (0.00-0.034)
[2023-05-16] MEDS: SODIUM CHLORIDE 0.9% 10ML SYR (RAD ONLY) 10 ML IV (20:25)
[2023-05-16] MEDS: IOPAMIDOL-370 (76%);100ML BOTTLE 75 ML IV (20:25)
[2023-05-16 21:00] VITALS: PULSE 80; RESP 18; O2SAT 95
--- NOTE | 2023-05-16 21:33 | PC.NURSE ---
Pt states he is still unable to produce urine specimen
[2023-05-16] MEDS: BUMETANIDE 1MG/4ML VIAL 2 MG IV (21:58)
[2023-05-16 22:07] VITALS: BP 145/101; PULSE 77; RESP 24; TEMP 36.7; O2SAT 100
== END 2023-05-16 22:09 | disposition home or self-care (01) ==
PROVIDERS: Emergency Provider Student in an Organized Health Care Education/Training Program; PCP Physician Assistant
DX: R10.30 Lower abdominal pain, unspecified (principal); R60.9 Edema, unspecified; I11.0 Hypertensive heart disease with heart failure; I50.20 Unspecified systolic (congestive) heart failure; I25.10 Atherosclerotic heart disease of native coronary artery without angina pectoris; I45.19 Other right bundle-branch block; I44.4 Left anterior fascicular block; E11.9 Type 2 diabetes mellitus without complications; E78.5 Hyperlipidemia, unspecified; G47.33 Obstructive sleep apnea (adult) (pediatric); J43.9 Emphysema, unspecified; Z87.891 Personal history of nicotine dependence; Z86.73 Personal history of transient ischemic attack (TIA), and cerebral infarction without residual deficits; Z95.0 Presence of cardiac pacemaker
CPT/HCPCS: 71045; 74177; 80053; 83690; 83880; 84484; 85025; 85610; 93005; 96374; 99285; Q9967

== ENCOUNTER 2023-05-27 17:46 | Emergency (ER) | payer MEDICARE, SELFPAY ==
[2023-05-27] VITALS (9 sets, daily range): BP systolic 130–169; BP diastolic 81–116; PULSE 72–83; RESP 13–23; TEMP 36.9; O2SAT 92–96; BMI 35.9
--- NOTE | 2023-05-27 | ECG_ITS ---
APPROVED REPORT Exam: Resting ECG HR:82 bpm ECG Measurements Heart Rate 82 AXES MA 181 P 71 QRSd 102 QRS -62 QT 372 T 95 QTc 410 Conclusion SINUS RHYTHM WITH OCCASIONAL VENTRICULAR PREMATURE COMPLEXES WITH OCCASIONAL SUPRAVENTRICULAR PREMATURE COMPLEXES POSSIBLE LEFT ATRIAL ENLARGEMENT [-0.1mV P-WAVE IN V1/V2] LEFT ANTERIOR FASCICULAR BLOCK [QRS AXIS <= -45, QR IN I, RS IN II] LEFT VENTRICULAR HYPERTROPHY AND ST-T CHANGE [VOLTAGE CRITERIA PLUS ST/T ABNORMALITY] POSSIBLE ANTERIOR MYOCARDIAL INFARCTION , OF INDETERMINATE AGE [30 ms Q WAVE IN V3/V4, OR R < 0.2 mV IN V4] ABNORMAL ECG UNCONFIRMED REPORT Electronically signed by : Claudy Bush MD 05/28/2023 20:09:58
--- NOTE | 2023-05-27 18:25 | PC.NURSE ---
DR JOHNSON AT BEDSIDE
--- NOTE | 2023-05-27 18:30 | XR_ITS ---
PROCEDURE INFORMATION: Exam: XR Chest Exam date and time: 05/27/2023 6:36 PM Age: 63 years old Clinical indication: Shortness of breath; Additional info: SOA, chf TECHNIQUE: Imaging protocol: Radiologic exam of the chest. Views: 2 views. COMPARISON: CR XR CHEST PORTABLE 05/16/2023 8:17 PM and 11/13/2022 FINDINGS: Lungs: Interval development of opacification in the posterior right lower lobe overlying the lower dorsal spine suggesting possible pneumonia. Lungs otherwise clear. Pleural spaces: Unremarkable. No pleural effusion. No pneumothorax. Heart/Mediastinum: Cardiomegaly with post open heart changes appear stable. Stable position of the dual lead pacer device. Bones/joints: Unremarkable. Other findings: Vascularity upper normal. IMPRESSION: 1. Right lower lobe airspace opacification suggesting possible pneumonia. Advise follow-up chest x-ray in 3-6 weeks to ensure resolution of this finding. 2. Otherwise stable chest.
--- NOTE | 2023-05-27 18:32 | [facility].EDCP ---
Discharge Plan Disposition Patient Disposition: Home, Self-Care Condition: Fair Prescriptions Prescriptions: New amoxicillin-pot clavulanate 875-125 mg tablet 1 tab PO BID 5 Days Qty: 10 0RF azithromycin 250 mg tablet See Rx Instructions .ROUTE .COMPLEX Qty: 6 0RF Rx Instructions: For 250 mg dose pack: take 500 mg today (day 1), then 250 mg for 4 days (days 2-5) No Action gabapentin 600 mg tablet 600 mg PO QID oxycodone-acetaminophen 10-325 mg tablet 1 tab PO Q6 fluticasone propionate [Flonase Allergy Relief] 50 mcg/actuation spray,suspension 1 spray intranasal DAILY Qty: 16 3RF Rx Instructions: administer into each nostril Incruse Ellipta 62.5 mcg/actuation blister with device 1 inh inhalation DAILY 90 Days Qty: 90 3RF mecobalamin (vitamin B12) 2,500 mcg tablet,chewable 2,500 mcg PO DAILY carvedilol 12.5 mg tablet See Rx Instructions .ROUTE .COMPLEX Qty: 180 2RF Dose Instruction: TAKE 3 TABLETS BY MOUTH TWICE A DAY MUST ADMINISTER WITH A MEAL/FOOD Rx Instructions: TAKE 3 TABLETS BY MOUTH TWICE A DAY MUST ADMINISTER WITH A MEAL/FOOD azelastine 137 mcg (0.1 %) aerosol,spray 2 spray intranasal BID Qty: 30 3RF Rx Instructions: administer into each nostril amlodipine 10 mg tablet 10 mg PO DAILY Qty: 90 1RF clopidogrel 75 mg tablet See Rx Instructions .ROUTE .COMPLEX Qty: 90 2RF Dose Instruction: TAKE 1 TABLET BY MOUTH DAILY FOR BLOOD THINNER Rx Instructions: TAKE 1 TABLET BY MOUTH DAILY FOR BLOOD THINNER atorvastatin [Lipitor] 40 mg tablet 40 mg PO DAILY Qty: 30 2RF potassium gluconate 595 mg (99 mg) tablet 1,190 mg PO DAILY Qty: 30 2RF metformin 500 mg tablet extended release 24 hr See Rx Instructions .ROUTE .COMPLEX Qty: 120 2RF Dose Instruction: TAKE 2 TABLETS BY MOUTH TWICE DAILY Rx Instructions: TAKE 2 TABLETS BY MOUTH TWICE DAILY omeprazole 40 mg capsule,delayed release(DR/EC) See Rx Instructions .ROUTE .COMPLEX Qty: 60 2RF Dose Instruction: TAKE 1 CAPSULE BY MOUTH TWICE A DAY SWALLOW WHOLE; DO NOT CRUSH, CHEW, DISSOLVE, CUT, BREAK Rx Instructions: TAKE 1 CAPSULE BY MOUTH TWICE A DAY SWALLOW WHOLE; DO NOT CRUSH, CHEW, DISSOLVE, CUT, BREAK glimepiride 4 mg tablet See Rx Instructions .ROUTE .COMPLEX Qty: 90 2RF Dose Instruction: TAKE 1 TABLET BY MOUTH ONCE DAILY Rx Instructions: TAKE 1 TABLET BY MOUTH ONCE DAILY duloxetine 60 mg capsule,delayed release(DR/EC) See Rx Instructions .ROUTE .COMPLEX Qty: 90 2RF Dose Instruction: TAKE 1 CAPSULE BY MOUTH DAILY FOR DEPRESSION Rx Instructions: TAKE 1 CAPSULE BY MOUTH DAILY FOR DEPRESSION lisinopril-hydrochlorothiazide 20-12.5 mg tablet See Rx Instructions .ROUTE .COMPLEX Qty: 120 2RF Dose Instruction: TAKE 2 TABS BY MOUTH TWICE A DAY Rx Instructions: TAKE 2 TABS BY MOUTH TWICE A DAY Januvia 100 mg tablet See Rx Instructions .ROUTE .COMPLEX Qty: 90 0RF Dose Instruction: TAKE 1 TABLET BY MOUTH ONCE DAILY Rx Instructions: TAKE 1 TABLET BY MOUTH ONCE DAILY aspirin 81 MG tablet,delayed release (DR/EC) 81 mg PO DAILY cholecalciferol (vitamin D3) 50 MCG tablet 50 mcg PO DAILY furosemide 40 mg tablet 40 mg PO BID bumetanide 2 mg tablet 2 mg PO DAILY 30 Days Qty: 30 0RF Rx Instructions: Please take 2 mg once a day you may double the dose to 2 mg twice daily if you do not have adequate urine response Referrals Follow up/Referrals: Anita Dumas PA [Primary Care Provider] - See instructions Activity Restrictions/Add. Instructions Additional Instructions/Restrictions: Complete the full course of both antibiotics you are prescribed today. Increase your Bumex frequency to twice daily as we discussed. Follow-up with your primary care provider within the next week to discuss your pneumonia and pulmonary edema and ensure symptoms are gradually improving. Return to the emergency department if worsened shortness of breath, chest pain, or other concerns. Clinical Impressions Clinical Impression: Right lower lobe pneumonia, Pulmonary edema with congestive heart failure Instructions Patient Instructions: DI for Pneumonia -- Adult, DI for Heart Failure Exacerbations Discharge ED Provider: Claire Waldrop General Chief Complaint: Shortness of Breath/Dyspnea Stated Complaint: soa can't walk abd pain Time Seen by Provider: 05/27/23 18:21 Mode of Arrival: Wheelchair Source of Information: Patient Limitations: No Limitations Description of Symptoms (Recalled from ER Triage Doc. by RN): pt presents to ED with c/o shortness of air. symptoms began today. pt reports he wears a cpap at night, and has been compliant with that. pt reports he was unable to walk to his truck without assistance to come to hospital. History of Present Illness HPI narrative: 63-year-old male with previous medical history of heart failure with reduced ejection fraction, coronary artery disease, COPD, among other comorbidities presenting with progressively worsening shortness of breath on exertion for the past 2 weeks and fevers for 2 days. Patient was seen for abdominal discomfort and dyspnea on exertion in this emergency department about 2 weeks ago and at that time had findings consistent with mild fluid overload from CHF but no abdominal pathology to explain his abdominal discomfort. 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 However he states that over the past 2 weeks he has gone from being able to walk across the room to only being able to take less than 5 steps before feeling he needs to stop for rest. Dyspnea is worse on exertion, and on laying back in bed. He also feels his bilateral lower extremity edema is mildly worse than usual. He has also had increased production of clear frothy sputum. He has had fevers for the past 2 days as high as 102 Fahrenheit. No chest pain. Related Data Home Medications Medication Instructions Recorded Confirmed aspirin 81 mg tablet,delayed 81 mg PO DAILY Blood thinner 11/11/20 05/19/23 release cholecalciferol (vitamin D3) 50 50 mcg PO DAILY Supplement 11/11/20 05/19/23 mcg (2,000 unit) tablet gabapentin 600 mg tablet 600 mg PO QID Pain 09/30/21 05/19/23 mecobalamin (vitamin B12) 2,500 2,500 mcg PO DAILY Supplement 07/21/22 05/19/23 mcg chewable tablet oxycodone-acetaminophen 10 mg-325 1 tab PO Q6 Pain 10/09/22 05/19/23 mg tablet furosemide 40 mg tablet 40 mg PO BID 05/16/23 05/19/23 Previous Rx's Medication Instructions Recorded fluticasone propionate 50 1 spray intranasal DAILY Sinus 10/20/22 mcg/actuation nasal infection #16 grams spray,suspension (Flonase Allergy Relief) amlodipine 10 mg tablet 10 mg PO DAILY High Blood Pressure 12/15/22 #90 tabs clopidogrel 75 mg tablet See Rx Instructions .Route 12/17/22 .COMPLEX #90 tabs carvedilol 12.5 mg tablet See Rx Instructions .Route 01/05/23 .COMPLEX #180 tabs atorvastatin 40 mg tablet (Lipitor) 40 mg PO DAILY #30 tabs 02/11/23 potassium gluconate 595 mg (99 mg) 1,190 mg PO DAILY #30 tabs 02/11/23 tablet umeclidinium 62.5 mcg/actuation 1 inh inhalation DAILY 90 days #90 02/26/23 blister powder for inhalation ea (Incruse Ellipta) metformin 500 mg tablet,extended See Rx Instructions .Route 03/03/23 release 24 hr .COMPLEX #120 tabs azelastine 137 mcg (0.1 %) nasal 2 spray intranasal BID sinusitis 03/10/23 spray aerosol #30 mL glimepiride 4 mg tablet See Rx Instructions .Route 03/18/23 .COMPLEX #90 tabs omeprazole 40 mg capsule,delayed See Rx Instructions .Route 03/18/23 release .COMPLEX #60 caps duloxetine 60 mg capsule,delayed See Rx Instructions .Route 03/31/23 release .COMPLEX #90 caps lisinopril 20 See Rx Instructions .Route 05/01/23 mg-hydrochlorothiazide 12.5 mg .COMPLEX #120 tabs tablet bumetanide 2 mg tablet 2 mg PO DAILY 30 days #30 tabs 05/16/23 sitagliptin phosphate 100 mg See Rx Instructions .Route 05/22/23 tablet (Januvia) .COMPLEX #90 tabs amoxicillin 875 mg-potassium 1 tab PO BID 5 days #10 tabs 05/27/23 clavulanate 125 mg tablet azithromycin 250 mg tablet See Rx Instructions PO .COMPLEX #6 05/27/23 tabs Allergies Allergy/AdvReac Type Severity Reaction Status Date / Time dobutamine AdvReac Unknown Hypertensio Verified 05/27/23 18:01 n [facility] Disclaimer: The information contained in this section may have been updated after the patient was seen, as this information can be updated by other users. Medical History Abnormal electrocardiogram [ECG] [EKG] Anxiety Bilateral chronic serous otitis media Cardiac pacemaker in situ Constipation Coronary artery disease Depression Deviated nasal septum Diabetes mellitus Dizziness Dyspnea on exertion Epididymitis Gastroesophageal reflux disease HFrEF (heart failure with reduced ejection fraction) History of TIA (transient ischemic attack) Hyperlipidemia Hypertension Hypertrophy of inferior nasal turbinate Impacted cerumen of right ear Insomnia Lung mass Mixed restrictive and obstructive lung disease Nodule of right lung Opiate withdrawal ANNA (obstructive sleep apnea) Palpitations Pulmonary emphysema Right maxillary sinusitis Sinusitis Smoking greater than 30 pack years TIA (transient ischemic attack) Surgical History History of coronary artery bypass graft History of right mastoidectomy Family History Other Diabetes Social History Smoking Status: Current every day smoker tobacco type: cigarettes packs per day: 1 alcohol intake: never substance use type: denies use current occupational status: disabled Travel in the last 8 weeks: None household members: spouse and children housing: house ROS Obtained: Yes All systems reviewed & no additional complaints except as documented Physical Exam General General appearance: alert, in no apparent distress and obese Head Head exam: atraumatic, normocephalic and normal inspection Eye Eye exam: Present normal appearance, PERRL and EOMI ENT ENT exam: Present normal exam, normal oropharynx, mucous membranes moist, TM's normal bilaterally and normal external ear exam Neck Neck exam: Present normal inspection, full ROM and trachea midline; Absent meningismus or lymphadenopathy Chest Chest inspection: Present normal inspection and symmetric chest wall rise; Absent tenderness Respiratory Respiratory exam: Present wheezes, prolonged expiratory phase and other (Inspiratory Rales in the lower lungs bilaterally, expiratory wheezes and prolonged expiratory phase.); Absent respiratory distress Cardiovascular Cardiovascular exam: Present regular rate and normal rhythm; Absent JVD Abdominal Exam Abdominal exam: Present soft and normal bowel sounds; Absent distention, tenderness or guarding Extremities Exam Extremities exam: Present full ROM, normal capillary refill and edema (2+ pitting edema bilaterally); Absent calf tenderness Back Exam Back exam: Present normal inspection; Absent tenderness Neurological Exam Neurological exam: Present alert and oriented X3 Psychiatric Psychiatric exam: Present normal affect and normal mood Skin Skin exam: Present warm, dry, intact and normal color Lymphatic Lymphatic Findings: no adenopathy HEART Score HEART Score HEART Score assessment performed?: No Critical Care Critical Care Time Critical Care Time: No Medical Decision Making George Inquiry Pt receiving controlled substance: No George was queried for this patient: No Vital Signs Vital Signs: 05/27/23 17:49 05/27/23 18:00 05/27/23 18:30 Temperature 98.5 F Temperature Source Oral Pulse Rate 80 78 Pulse Rate [Left Radial] 77 Respiratory Rate 19 23 21 Blood Pressure 145/84 H 130/84 Blood Pressure [Right Arm] 159/103 H Blood Pressure Mean 104 Blood Pressure Mean [Right Arm] 121 02 Sat by Pulse Oximetry 94 L 94 L 92 L Oxygen Delivery Method Room Air 05/27/23 19:45 05/27/23 20:01 05/27/23 20:30 Temperature Temperature Source Pulse Rate 77 73 72 Pulse Rate [Left Radial] Respiratory Rate 22 22 19 Blood Pressure 169/96 H 153/89 H 149/86 H Blood Pressure [Right Arm] Blood Pressure Mean Blood Pressure Mean [Right Arm] 02 Sat by Pulse Oximetry 96 95 93 L Oxygen Delivery Method 05/27/23 21:00 05/27/23 21:30 Temperature Temperature Source Pulse Rate 76 72 Pulse Rate [Left Radial] Respiratory Rate 18 13 Blood Pressure 155/116 H 164/93 H Blood Pressure [Right Arm] Blood Pressure Mean Blood Pressure Mean [Right Arm] 02 Sat by Pulse Oximetry 95 93 L Oxygen Delivery Method Lab Data Labs: Lab Results 05/27/23 17:55: WBC 7.1, RBC 4.74, Hgb 12.8 L, Hct 41.4 L, MCV 87.2, MCH 27.1, MCHC 31.0 L, RDW 16.2, Plt Count 161, MPV 11.9 H, Neut % (Auto) 80.9 H, Lymph % (Auto) 13.8, [place] % (Auto) 4.7, Eos % (Auto) 0.0 L, Baso % (Auto) 0.5, Neut # (Auto) 5.7, Lymph # (Auto) 1.0, [place] # (Auto) 0.3, Eos # (Auto) 0.0, Baso # (Auto) 0.0, Sodium 133 L, Potassium 3.9, Chloride 94 L, Carbon Dioxide 31 H, Anion Gap 11.9, BUN 24 H, Creatinine 1.20, Estimated Creat Clear 102, Estimated GFR 61, Est GFR ( Amer) 74, Glucose 205 H, Calcium 8.6, Troponin I 0.04 H, NT-Pro-B Natriuret Pep 86755 H 05/27/23 21:08: Troponin I 0.05 H 05/27/23 17:55 05/27/23 17:55 Response Orders (Tests/Meds): ED MEDICATIONS Discontinued Medications Generic Name Dose Route Start Last Admin Trade Name Vandana PRN Reason Stop Dose Admin Albuterol/Ipratropium 3 ml 05/27/23 18:31 05/27/23 18:35 Ipratropium/Albuterol 3 Ml Neb IH 05/27/23 18:32 3 ml ONCE ONE Administration Azithromycin 500 mg 05/27/23 20:33 05/27/23 20:45 Azithromycin 250mg Tablet PO 05/27/23 20:34 500 mg ONCE ONE Administration Bumetanide 2 mg 05/27/23 18:31 05/27/23 18:35 Bumetanide 1mg/4ml Vial IV 05/27/23 18:32 2 mg ONCE ONE Administration Ceftriaxone Sodium 1 gm/ 50 mls @ 100 mls/hr 05/27/23 20:45 05/27/23 20:49 Sodium Chloride IV 06/06/23 20:44 Not Given Q24H ANKUR Ceftriaxone Sodium 1 gm/ 50 mls @ 100 mls/hr 05/27/23 20:47 05/27/23 20:47 Sodium Chloride IV 05/27/23 21:16 100 mls/hr ONCE ONE Administration Oxycodone HCl 10 mg 05/27/23 20:54 05/27/23 20:59 Oxycodone 5mg Immediate Release Tablet PO 05/27/23 20:55 10 mg ONCE ONE Administration ORDERS Category Date Time Status XR chest 2V Stat Exams 05/27/23 18:30 Completed Basic Metabolic Panel Stat Lab 05/27/23 17:55 Completed Brain Natriuretic Peptide Stat Lab 05/27/23 17:55 Completed Complete Blood Count Auto Diff Stat Lab 05/27/23 17:55 Completed Troponin I Q3H Lab 05/27/23 17:55 Completed Troponin I Q3H Lab 05/27/23 21:08 Completed Troponin I Q3H Lab 05/28/23 00:30 Ordered MDM Narrative Medical Decision Narrative: Presentation of shortness of air, cough, and fever in the setting of his multiple comorbidities is concerning for CHF exacerbation, ACS, arrhythmia, pneumonia, COPD exacerbation, less likely to be due to a PE given his lack of chest pain, his reassuring vitals, and symptoms much more consistent with COPD exacerbation, CHF exacerbation, or pneumonia. For this reason ordered laboratory evaluation and 2 view chest x-ray and DuoNeb and Bumex. Also obtained EKG which I independently reviewed and interpreted and showed normal rate, regular rhythm aside from PVCs, no significant ST segment elevation or changes in wave morphology, no STEMI. Sinus rhythm. Labs I independently reviewed and interpreted showed BNP elevated to 20,000, similar to his visit 2 weeks ago but increased from his usual baseline. Initial troponin elevated to 0.04, similar to his baseline and unchanged on repeat troponin.. Chest x-ray independently reviewed and interpreted showed moderate pulmonary edema versus right lower lobe pneumonia. Patient's symptoms seem to be due to moderate pulmonary edema and a right lower lobe pneumonia. For this reason prescribed Augmentin, azithromycin, and advised patient to increase his Bumex to twice daily as he does when he is having fluid overload symptoms that can be managed at home. He ambulated in the emergency department and maintained oxygen saturation of 90% and greater. 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
[2023-05-27] MEDS: IPRATROPIUM/ALBUTEROL 3 ML NEB IH (18:35)
[2023-05-27] MEDS: BUMETANIDE 1MG/4ML VIAL 2 MG IV (18:35)
[2023-05-27 18:54] LABS: Basophils % 0.5 % (0.1-2.0); Hematocrit 41.4 % (42.0-52.0); Hemoglobin 12.8 g/dL (14.1-18.0); Lymphocytes % 13.8 % (10-50); Mean Corpuscular Hemoglobin 27.1 pg (27.0-31.2); Mean Corpuscular Volume 87.2 fl (80-94); Mean Platelet Volume 11.9 fl (7.4-10.4); Monocytes # 0.3 K/mm3 (0.1-1.0); Monocytes % 4.7 % (1.7-9.3); Neutrophils # 5.7 K/mm3 (1.8-7.8); Neutrophils % 80.9 % (37.0-80.0); Platelet Count 161 K/mm3 (142-424); Red Blood Count 4.74 M/mm3 (4.60-6.20); Red Cell Distribution Width 16.2 % (11.5-17.5); White Blood Count 7.1 K/mm3 (4.8-10.8)
[2023-05-27 19:06] LABS: Chloride 94 mmol/L (98-107); Potassium 3.9 mmoL/L (3.5-5.1); Sodium 133 mmol/L (136-145)
[2023-05-27 19:09] LABS: Anion Gap 11.9 mEq/L (5-15); Blood Urea Nitrogen 24 mg/dl (9-20); Calcium 8.6 mg/dl (8.4-10.2); Carbon Dioxide 31 mmol/L (22.0-30.0); Creatinine Clearance Estimated 102 mL/min (50-200); Estimated Glomerular Filt Rate 61 ml/min (>60); GFR (African American) 74 ML/MIN (>60); Glucose 205 mg/dl (74-100)
[2023-05-27 19:18] LABS: NT Pro Brain Natriuretic Pep. 20100 pg/mL (0-125)
[2023-05-27 19:22] LABS: Troponin I 0.04 ng/ml (0.00-0.034)
--- NOTE | 2023-05-27 19:33 | PC.NURSE ---
Patient walked half way around ED, 02 sat dropped to 89, MD informed
--- NOTE | 2023-05-27 19:59 | PC.NURSE ---
call received from registration re: visitor status. Allowed two children to come visit as patient's has no one to keep them. is in agreement that because they are actively coughing and sick while in room that they will stay.
--- NOTE | 2023-05-27 20:36 | PC.NURSE ---
in room talking with patient at this time.
[2023-05-27] MEDS: AZITHROMYCIN 250MG TABLET 500 MG PO (20:45)
[2023-05-27] MEDS: CEFTRIAXONE 1 GM 1 GM in 0.9 % SODIUM CHLORIDE 50 ML IV (20:47)
[2023-05-27] MEDS: OXYCODONE 5MG IMMEDIATE RELEASE TABLET 10 MG PO (20:59)
[2023-05-27 21:48] LABS: Troponin I 0.05 ng/ml (0.00-0.034)
== END 2023-05-27 22:05 | disposition home or self-care (01) ==
PROVIDERS: Emergency Provider Emergency Medicine; PCP Physician Assistant
DX: J18.9 Pneumonia, unspecified organism (principal); J81.0 Acute pulmonary edema; R06.02 Shortness of breath; R50.9 Fever, unspecified; I11.0 Hypertensive heart disease with heart failure; I50.20 Unspecified systolic (congestive) heart failure; J44.9 Chronic obstructive pulmonary disease, unspecified; I25.10 Atherosclerotic heart disease of native coronary artery without angina pectoris; E11.9 Type 2 diabetes mellitus without complications; E78.5 Hyperlipidemia, unspecified; F17.210 Nicotine dependence, cigarettes, uncomplicated
CPT/HCPCS: 71046; 80048; 83880; 84484; 85025; 93005; 96365; 96375; 99285; J0696

== ENCOUNTER 2023-06-25 17:56 | Emergency (ER) | payer MEDICARE, SELFPAY ==
[2023-06-25 17:57] VITALS: BP 151/89; PULSE 88; RESP 18; TEMP 36.3; O2SAT 96; BMI 31.5
--- NOTE | 2023-06-25 18:24 | CT_ITS ---
PROCEDURE INFORMATION: Exam: CTA Abdomen and Pelvis With Contrast Exam date and time: 06/25/2023 6:48 PM Age: 63 years old Clinical indication: Abdominal pain; Localized; Right lower quadrant (rlq); Additional info: Sudden rlq abd pain TECHNIQUE: Imaging protocol: Computed tomographic angiography of the abdomen and pelvis with contrast. Exam focused on the arteries. 3D rendering (Not supervised by radiologist): MIP and/or 3D reconstructed images were created by the technologist. Radiation optimization: All CT scans at this facility use at least one of these dose optimization techniques: automated exposure control; mA and/or kV adjustment per patient size (includes targeted exams where dose is matched to clinical indication); or iterative reconstruction. Contrast material: ISOVUE; Contrast volume: 100 ml; Contrast route: INTRAVENOUS (IV); COMPARISON: CT ABDOMEN PELVIS W CON 05/16/2023 8:16 PM FINDINGS: Lungs: Right lower lobe tree-in-bud opacities differential diagnosis includes infectious bronchiolitis less likely aspiration bronchiolitis. Pleural spaces: Small right pleural effusion with compressive atelectasis. Heart: Cardiomegaly unchanged. Aorta: Moderate calcific atherosclerotic disease of the abdominal aorta without aneurysmal dilatation is present. Celiac trunk and mesenteric arteries: No occlusion or significant stenosis. Renal arteries: No occlusion or significant stenosis. Right iliac arteries: No occlusion or significant stenosis. Left iliac arteries: No occlusion or significant stenosis. Liver: Low volume perihepatic and perisplenic ascites. Gallbladder and bile ducts: There are surgical clips within the gallbladder fossa. Pancreas: Unremarkable. No mass. No ductal dilation. Spleen: Unremarkable. No splenomegaly. Adrenal glands: Benign left adrenal adenoma measures 2.3 cm in diameter, stable from prior exam. Kidneys and ureters: Unremarkable. No solid mass. No hydronephrosis. Stomach and bowel: Unremarkable. No obstruction. No mucosal thickening. Appendix: No evidence of appendicitis. Intraperitoneal space: Low volume fluid involving the right colonic gutter exiting to the posterior pelvis Lymph nodes: Unremarkable. No enlarged lymph nodes. Urinary bladder: Unremarkable. No mass. Reproductive: Unremarkable as visualized. Bones/joints: Moderate loss of intervertebral disc space with degenerative changes at L2-L3. Soft tissues: Unremarkable. IMPRESSION: 1. Right lower lobe tree-in-bud opacities differential diagnosis includes infectious bronchiolitis less likely aspiration bronchiolitis. 2. Small right pleural effusion with compressive atelectasis. 3. Low volume perihepatic and perisplenic ascites extending to the pelvis.
--- NOTE | 2023-06-25 18:27 | ED_ITS ---
Discharge Plan Disposition Patient Disposition: Home, Self-Care Prescriptions Prescriptions: No Action gabapentin 600 mg tablet 600 mg PO QID oxycodone-acetaminophen 10-325 mg tablet 1 tab PO Q6 fluticasone propionate [Flonase Allergy Relief] 50 mcg/actuation spray,suspension 1 spray intranasal DAILY Qty: 16 3RF Rx Instructions: administer into each nostril Incruse Ellipta 62.5 mcg/actuation blister with device 1 inh inhalation DAILY 90 Days Qty: 90 3RF mecobalamin (vitamin B12) 2,500 mcg tablet,chewable 2,500 mcg PO DAILY carvedilol 12.5 mg tablet See Rx Instructions .ROUTE .COMPLEX Qty: 180 2RF Dose Instruction: TAKE 3 TABLETS BY MOUTH TWICE A DAY MUST ADMINISTER WITH A MEAL/FOOD Rx Instructions: TAKE 3 TABLETS BY MOUTH TWICE A DAY MUST ADMINISTER WITH A MEAL/FOOD azelastine 137 mcg (0.1 %) aerosol,spray 2 spray intranasal BID Qty: 30 3RF Rx Instructions: administer into each nostril amlodipine 10 mg tablet 10 mg PO DAILY Qty: 90 1RF clopidogrel 75 mg tablet See Rx Instructions .ROUTE .COMPLEX Qty: 90 2RF Dose Instruction: TAKE 1 TABLET BY MOUTH DAILY FOR BLOOD THINNER Rx Instructions: TAKE 1 TABLET BY MOUTH DAILY FOR BLOOD THINNER potassium gluconate 595 mg (99 mg) tablet 1,190 mg PO DAILY Qty: 30 2RF glimepiride 4 mg tablet See Rx Instructions .ROUTE .COMPLEX Qty: 90 2RF Dose Instruction: TAKE 1 TABLET BY MOUTH ONCE DAILY Rx Instructions: TAKE 1 TABLET BY MOUTH ONCE DAILY duloxetine 60 mg capsule,delayed release(DR/EC) See Rx Instructions .ROUTE .COMPLEX Qty: 90 2RF Dose Instruction: TAKE 1 CAPSULE BY MOUTH DAILY FOR DEPRESSION Rx Instructions: TAKE 1 CAPSULE BY MOUTH DAILY FOR DEPRESSION lisinopril-hydrochlorothiazide 20-12.5 mg tablet See Rx Instructions .ROUTE .COMPLEX Qty: 120 2RF Dose Instruction: TAKE 2 TABS BY MOUTH TWICE A DAY Rx Instructions: TAKE 2 TABS BY MOUTH TWICE A DAY Januvia 100 mg tablet See Rx Instructions .ROUTE .COMPLEX Qty: 90 0RF Dose Instruction: TAKE 1 TABLET BY MOUTH ONCE DAILY Rx Instructions: TAKE 1 TABLET BY MOUTH ONCE DAILY metformin 500 mg tablet extended release 24 hr See Rx Instructions .ROUTE .COMPLEX Qty: 120 2RF Dose Instruction: TAKE 2 TABLETS BY MOUTH TWICE DAILY Rx Instructions: TAKE 2 TABLETS BY MOUTH TWICE DAILY omeprazole 40 mg capsule,delayed release(DR/EC) See Rx Instructions .ROUTE .COMPLEX Qty: 60 1RF Dose Instruction: TAKE 1 CAPSULE BY MOUTH TWICE A DAY SWALLOW WHOLE; DO NOT CRUSH, CHEW, DISSOLVE, CUT, BREAK Rx Instructions: TAKE 1 CAPSULE BY MOUTH TWICE A DAY SWALLOW WHOLE; DO NOT CRUSH, CHEW, DISSOLVE, CUT, BREAK bumetanide 2 mg tablet See Rx Instructions .ROUTE .COMPLEX Qty: 30 3RF Dose Instruction: TAKE 1 TABLET BY MOUTH ONCE DAILY ; YOU MAY DOUBLE THE DOSE TO TWICE DAILY IF YOU DO NOT HAVE ADEQUATE URINE RESPONSE Rx Instructions: TAKE 1 TABLET BY MOUTH ONCE DAILY ; YOU MAY DOUBLE THE DOSE TO TWICE DAILY IF YOU DO NOT HAVE ADEQUATE URINE RESPONSE atorvastatin [Lipitor] 40 mg tablet 40 mg PO DAILY Qty: 30 2RF aspirin 81 MG tablet,delayed release (DR/EC) 81 mg PO DAILY cholecalciferol (vitamin D3) 50 MCG tablet 50 mcg PO DAILY amoxicillin-pot clavulanate 875-125 mg tablet 1 tab PO BID 5 Days Qty: 10 0RF azithromycin 250 mg tablet See Rx Instructions .ROUTE .COMPLEX Qty: 6 0RF Rx Instructions: For 250 mg dose pack: take 500 mg today (day 1), then 250 mg for 4 days (days 2-5) furosemide 40 mg tablet 40 mg PO BID Referrals Follow up/Referrals: Anita Dumas PA [Primary Care Provider] - See instructions Activity Restrictions/Add. Instructions Additional Instructions/Restrictions: No abdominal pelvic emergency identified in the emergency department today please follow-up with primary care doctor as needed return with any worsening symptoms. Clinical Impressions Clinical Impression: Abdominal pain, RLQ Instructions Patient Instructions: DI for Acute Abdominal Pain Discharge ED Provider: Samy Bullard General Adult HPI General Chief complaint: Abdominal Pain Stated complaint: abd pain Time Seen by Provider: 06/25/23 18:17 Mode of Arrival: Wheelchair Source of Information: Patient Limitations: No Limitations Description of Symptoms (Recalled from ER Triage Doc. by RN): c/o all over sudden abdomen pain that hurt so bad it took him to his knee and took his breath away. Pt states he has been here for this same issue and needs to fu with a stomach doctor but that isnt until july or august and he cant wait that long and the pain is worse that it has ever been. Some nausea at times History of Present Illness HPI narrative: Patient is a 63-year-old male presenting today with sudden right lower quadrant abdominal pain which began 4 hours prior to arrival today. Denies any hematuria changes in bowel movements nausea or vomiting. States he does have a history of a hernia that was repaired in his abdomen at some point 20 years ago and has had some chronic abdominal pain since that time in this region but states this is significant worse than has been in the past. Related Data Home Medications Medication Instructions Recorded Confirmed aspirin 81 mg tablet,delayed 81 mg PO DAILY Blood thinner 11/11/20 05/19/23 release cholecalciferol (vitamin D3) 50 50 mcg PO DAILY Supplement 11/11/20 05/19/23 mcg (2,000 unit) tablet gabapentin 600 mg tablet 600 mg PO QID Pain 09/30/21 05/19/23 mecobalamin (vitamin B12) 2,500 2,500 mcg PO DAILY Supplement 07/21/22 05/19/23 mcg chewable tablet oxycodone-acetaminophen 10 mg-325 1 tab PO Q6 Pain 10/09/22 05/19/23 mg tablet furosemide 40 mg tablet 40 mg PO BID 05/16/23 05/19/23 Previous Rx's Medication Instructions Recorded fluticasone propionate 50 1 spray intranasal DAILY Sinus 10/20/22 mcg/actuation nasal infection #16 grams spray,suspension (Flonase Allergy Relief) amlodipine 10 mg tablet 10 mg PO DAILY High Blood Pressure 12/15/22 #90 tabs clopidogrel 75 mg tablet See Rx Instructions .Route 12/17/22 .COMPLEX #90 tabs carvedilol 12.5 mg tablet See Rx Instructions .Route 01/05/23 .COMPLEX #180 tabs potassium gluconate 595 mg (99 mg) 1,190 mg PO DAILY #30 tabs 02/11/23 tablet umeclidinium 62.5 mcg/actuation 1 inh inhalation DAILY 90 days #90 02/26/23 blister powder for inhalation ea (Incruse Ellipta) azelastine 137 mcg (0.1 %) nasal 2 spray intranasal BID sinusitis 03/10/23 spray aerosol #30 mL glimepiride 4 mg tablet See Rx Instructions .Route 03/18/23 .COMPLEX #90 tabs duloxetine 60 mg capsule,delayed See Rx Instructions .Route 03/31/23 release .COMPLEX #90 caps lisinopril 20 See Rx Instructions .Route 05/01/23 mg-hydrochlorothiazide 12.5 mg .COMPLEX #120 tabs tablet sitagliptin phosphate 100 mg See Rx Instructions .Route 05/22/23 tablet (Januvia) .COMPLEX #90 tabs amoxicillin 875 mg-potassium 1 tab PO BID 5 days #10 tabs 05/27/23 clavulanate 125 mg tablet azithromycin 250 mg tablet See Rx Instructions PO .COMPLEX #6 05/27/23 tabs metformin 500 mg tablet,extended See Rx Instructions .Route 06/04/23 release 24 hr .COMPLEX #120 tabs omeprazole 40 mg capsule,delayed See Rx Instructions .Route 06/16/23 release .COMPLEX #60 caps atorvastatin 40 mg tablet (Lipitor) 40 mg PO DAILY #30 tabs 06/22/23 bumetanide 2 mg tablet See Rx Instructions .Route 06/22/23 .COMPLEX #30 tabs Allergies Allergy/AdvReac Type Severity Reaction Status Date / Time dobutamine AdvReac Unknown Hypertensio Verified 05/27/23 18:01 n [facility] Disclaimer: The information contained in this section may have been updated after the patient was seen, as this information can be updated by other users. Medical History Abnormal electrocardiogram [ECG] [EKG] Anxiety Bilateral chronic serous otitis media Cardiac pacemaker in situ Constipation Coronary artery disease Depression Deviated nasal septum Diabetes mellitus Dizziness Dyspnea on exertion Epididymitis Gastroesophageal reflux disease HFrEF (heart failure with reduced ejection fraction) History of TIA (transient ischemic attack) Hyperlipidemia Hypertension Hypertrophy of inferior nasal turbinate Impacted cerumen of right ear Insomnia Lung mass Mixed restrictive and obstructive lung disease Nodule of right lung Opiate withdrawal ANNA (obstructive sleep apnea) Palpitations Pulmonary emphysema Right maxillary sinusitis Sinusitis Smoking greater than 30 pack years TIA (transient ischemic attack) Surgical History History of coronary artery bypass graft History of right mastoidectomy Family History Other Diabetes Social History Smoking Status: Current every day smoker tobacco type: cigarettes packs per day: 1 alcohol intake: never substance use type: denies use current occupational status: disabled Travel in the last 8 weeks: None household members: spouse and children housing: house ROS Obtained: Yes All systems reviewed & no additional complaints except as documented Physical Exam General General appearance: alert Respiratory Respiratory exam: Present normal lung sounds bilaterally Cardiovascular Cardiovascular exam: Present regular rate Abdominal Exam Abdominal exam: Present soft and tenderness (Right lower quadrant tenderness to palpation no rebound or guarding) Neurological Exam Neurological exam: Present alert Medical Decision Making George Inquiry Pt receiving controlled substance: No Vital Signs: 06/25/23 17:57 Temperature 97.4 F L Temperature Source Oral Pulse Rate [Left Radial] 88 Respiratory Rate 18 Blood Pressure [Right Arm] 151/89 H Blood Pressure Mean [Right Arm] 109 Blood Pressure Source [Right Arm] Automatic Cuff Blood Pressure Position [Right Arm] Sitting 02 Sat by Pulse Oximetry 96 Oxygen Delivery Method Room Air Lab Data Lab results reviewed: Yes I reviewed the patient's lab results. Lab Results 06/25/23 18:15: WBC 7.0, RBC 4.85, Hgb 12.6 L, Hct 40.4 L, MCV 83.2, MCH 25.9 L, MCHC 31.1 L, RDW 17.4, Plt Count 146, MPV 12.1 H, Neut % (Auto) 72.2, Lymph % (Auto) 20.6, [place] % (Auto) 6.2, Eos % (Auto) 0.8, Baso % (Auto) 0.3, Neut # (Auto) 5.0, Lymph # (Auto) 1.4, [place] # (Auto) 0.4, Eos # (Auto) 0.1, Baso # (Auto) 0.0, Sodium 134 L, Potassium 3.8, Chloride 97 L, Carbon Dioxide 28, Anion Gap 12.8, BUN 25 H, Creatinine 1.30 H, Estimated Creat Clear 83, Estimated GFR 56 L, Est GFR ( Amer) 68, Glucose 257 H, Calcium 8.8, Total Bilirubin 0.5, AST 31, ALT 31, Alkaline Phosphatase 92, Total Protein 7.1, Albumin 3.9, Globulin 3.2, Albumin/Globulin Ratio 1.2, Lipase 27 06/25/23 19:18: Urine Color Yellow, Urine Appearance Clear, Urine pH 5.5, Ur Specific [place] 1.020, Urine Protein Trace, Urine Glucose (UA) Negative, Urine Ketones Negative, Urine Blood Negative, Urine Nitrate Negative, Urine Bilirubin Negative, Urine Urobilinogen 0.2, Ur Leukocyte Esterase Negative 06/25/23 18:15 06/25/23 18:15 Orders (Tests/Meds): ED MEDICATIONS Generic Name Dose Route Start Last Admin Trade Name Freq PRN Reason Stop Dose Admin Sodium Chloride 10 ml 06/25/23 18:57 06/25/23 18:59 Sodium Chloride 0.9% 10ml Syr (Rad Only) IV 07/25/23 18:56 10 ml NEEDED PRN Administration Maintain IV Site Discontinued Medications Generic Name Dose Route Start Last Admin Trade Name Freq PRN Reason Stop Dose Admin Iopamidol 100 ml 06/25/23 18:57 06/25/23 18:59 Iopamidol-370 (76%);100ml Bottle IV 06/25/23 18:58 100 ml ONCE ONE Administration Morphine Sulfate 4 mg 06/25/23 18:24 06/25/23 18:38 Morphine 4mg/Ml Syringe IV 06/25/23 18:25 4 mg ONCE ONE Administration Ondansetron HCl 4 mg 06/25/23 18:24 06/25/23 18:38 Ondansetron 4mg/2ml Vial IV 06/25/23 18:25 4 mg ONCE ONE Administration Sodium Chloride 50 ml 06/25/23 18:57 06/25/23 18:58 0.9 % Sodium Chloride 50 Ml Vial IV 06/25/23 18:58 50 ml ONCE ONE Administration ORDERS Category Date Time Status CT angio abdomen pelvis Stat Cat Scan 06/25/23 18:24 Completed CBC w/Auto Diff [Complete Blood Count Auto Diff] Stat Lab 06/25/23 18:15 Completed CMP [Comprehensive Metabolic Panel] Stat Lab 06/25/23 18:15 Completed Lactic Acid Stat Lab 06/25/23 18:24 Ordered Lipase Stat Lab 06/25/23 18:15 Completed UA [Urinalysis and Microscopic] Stat Lab 06/25/23 19:18 Results Medical Decision Narrative: 63-year-old male presented with sudden right lower quadrant abdominal pain. Differential includes mesenteric ischemia, bowel obstruction, kidney stone, appendicitis etc. Will get a T angio abdomen pelvis specifically to rule out mesenteric ischemia. Pain medicine nausea medicine will be administered. Labs and urinalysis initiated. Will reassess. Reassessment 7:34 PM patient feeling much better serial abdominal exams are benign. CT scan performed at person interpreted shows no acute abdominal pelvic emergency. Radiology read states there is some tree-in-bud opacities differential includes infectious bronchiolitis less likely aspiration bronchiolitis however patient has no respiratory symptoms or signs of infection will not treat this. There is a small right pleural effusion and low volume perihepatic and perisplenic ascites. Ascites is secondary to patient's known heart failure, certainly. He has been advised this and advised to follow-up with primary care doctor as needed. Critical Care Critical Care Time Critical Care Time: No
[2023-06-25 18:33] LABS: Basophils % 0.3 % (0.1-2.0); Eosinophils # 0.1 K/mm3 (0.0-0.4); Eosinophils % 0.8 % (0.1-12.0); Hematocrit 40.4 % (42.0-52.0); Hemoglobin 12.6 g/dL (14.1-18.0); Lymphocytes # 1.4 K/mm3 (0.7-4.5); Lymphocytes % 20.6 % (10-50); Mean Corpuscular HGB Conc 31.1 g/dL (31.8-35.4); Mean Corpuscular Hemoglobin 25.9 pg (27.0-31.2); Mean Corpuscular Volume 83.2 fl (80-94); Mean Platelet Volume 12.1 fl (7.4-10.4); Monocytes # 0.4 K/mm3 (0.1-1.0); Monocytes % 6.2 % (1.7-9.3); Neutrophils % 72.2 % (37.0-80.0); Platelet Count 146 K/mm3 (142-424); Red Blood Count 4.85 M/mm3 (4.60-6.20); Red Cell Distribution Width 17.4 % (11.5-17.5)
[2023-06-25 18:37] LABS: Alanine Aminotransferase 31 U/L (12-78); Albumin Level 3.9 g/dl (3.5-5.0); Albumin/Globulin Ratio 1.2 (1.1-1.8); Alkaline Phosphatase 92 U/L (38-126); Anion Gap 12.8 mEq/L (5-15); Aspartate Amino Transferase 31 U/L (17-59); Bilirubin,Total 0.5 mg/dl (0.2-1.3); Blood Urea Nitrogen 25 mg/dl (9-20); Calcium 8.8 mg/dl (8.4-10.2); Carbon Dioxide 28 mmol/L (22.0-30.0); Chloride 97 mmol/L (98-107); Creatinine Clearance Estimated 83 mL/min (50-200); Estimated Glomerular Filt Rate 56 ml/min (>60); GFR (African American) 68 ML/MIN (>60); Globulin 3.2 g/dL (1.3-3.2); Glucose 257 mg/dl (74-100); Lipase 27 U/L (23-300); Potassium 3.8 mmoL/L (3.5-5.1); Sodium 134 mmol/L (136-145); Total Protein,Serum 7.1 g/dl (6.3-8.2)
[2023-06-25] MEDS: ONDANSETRON 4MG/2ML VIAL 4 MG IV (18:38)
[2023-06-25] MEDS: MORPHINE 4MG/ML SYRINGE 4 MG IV (18:38)
[2023-06-25] MEDS: 0.9 % SODIUM CHLORIDE 50 ML VIAL IV (18:58)
[2023-06-25] MEDS: SODIUM CHLORIDE 0.9% 10ML SYR (RAD ONLY) 10 ML IV (18:59)
[2023-06-25] MEDS: IOPAMIDOL-370 (76%);100ML BOTTLE 100 ML IV (18:59)
[2023-06-25 19:23] LABS: Microscopic, Urine URINE MICROSCOPIC (MICROSCOPIC)
[2023-06-25 19:27] LABS: Appearance,Urine CLEAR (Clear); Bilirubin,Urine Negative (Negative); Blood, Urine Negative (Negative); Color,Urine YELLOW (Yellow); Glucose,Urine (UA) Negative (Negative); Ketones,Urine Negative (Negative); Leukocyte Esterase,Urine Negative (Negative); Nitrate,Urine Negative (Negative); PH,Urine 5.5 (5.0-8.5); Protein,Urine TRACE (Negative); Urobilinogen,Urine 0.2 EU/dl (0.2)
[2023-06-25 19:38] VITALS: BP 120/75; PULSE 80; RESP 18; TEMP 36.6; O2SAT 96
[2023-06-25 19:39] LABS: Bacteria,Urine Trace /lpf; WBC,Urine Occasional #/hpf (0-3)
== END 2023-06-25 19:39 | disposition home or self-care (01) ==
LOC: ER 18:31
PROVIDERS: Emergency Provider Student in an Organized Health Care Education/Training Program; PCP Physician Assistant
DX: R10.31 Right lower quadrant pain (principal); I25.10 Atherosclerotic heart disease of native coronary artery without angina pectoris; E11.9 Type 2 diabetes mellitus without complications; K21.9 Gastro-esophageal reflux disease without esophagitis; I11.0 Hypertensive heart disease with heart failure; I50.20 Unspecified systolic (congestive) heart failure; E78.5 Hyperlipidemia, unspecified; G47.33 Obstructive sleep apnea (adult) (pediatric); J43.9 Emphysema, unspecified; F17.210 Nicotine dependence, cigarettes, uncomplicated; Z86.73 Personal history of transient ischemic attack (TIA), and cerebral infarction without residual deficits; Z95.0 Presence of cardiac pacemaker
CPT/HCPCS: 74174; 80053; 81001; 83690; 85025; 96374; 96375; 99285; J2405; Q9967

== ENCOUNTER 2023-09-03 09:03 | Emergency (ER) | payer MEDICARE, SELFPAY ==
[2023-09-03 09:10] VITALS: BP 111/69; PULSE 78; RESP 16; TEMP 36.8; O2SAT 98; BMI 30.4
--- NOTE | 2023-09-03 09:25 | ED_ITS ---
Discharge Plan Disposition Patient Disposition: Home, Self-Care Condition: Good Prescriptions Prescriptions: New amoxicillin 500 mg capsule 500 mg PO BID 10 Days Qty: 20 0RF No Action atorvastatin 40 mg tablet 40 mg PO DAILY gabapentin 600 mg tablet 600 mg PO DAILY carvedilol 12.5 mg tablet 12.5 mg PO DAILY bumetanide 2 mg tablet 2 mg PO DAILY lisinopril-hydrochlorothiazide 20-12.5 mg tablet 2 tab PO BID Patient Comments: TAKE 2 TABLETS BY MOUTH TWICE DAILY clopidogrel 75 mg tablet 75 mg PO DAILY Patient Comments: TAKE 1 TABLET BY MOUTH DAILY FOR BLOOD THINNER omeprazole 40 mg capsule,delayed release(DR/EC) 40 mg PO DAILY Patient Comments: TAKE 1 CAPSULE BY MOUTH TWICE A DAY SWALLOW WHOLE; DO NOT CRUSH, CHEW, DISSOLVE, CUT, BREAK oxycodone-acetaminophen 10-325 mg tablet 1 tab PO DAILY glimepiride 4 mg tablet 4 mg PO DAILY metformin 500 mg tablet extended release 24 hr 500 mg PO DAILY Januvia 100 mg tablet 100 mg PO DAILY Patient Comments: TAKE 1 TABLET BY MOUTH ONCE DAILY Referrals Follow up/Referrals: Anita Dumas PA [Primary Care Provider] - See instructions Activity Restrictions/Add. Instructions Additional Instructions/Restrictions: *Monitor Temp, Over the counter Motrin or Tylenol as directed/as needed Tylenol every 4 hours and Motrin every 6 hours (as long as your family doctor has told you that you can take it) for fever or pain. and straight to ER if unable to lower temp less than 101.0 after medication given *Warm salt water gargles may help to soothe the throat *Throat Lozenges? *Warm fluids like tea with honey may help to soothe the throat? *Sleep elevated *Humidifier/Vaporizer Your throat swab was sent for culture. Those results are typically sent to your primary care. Be sure to follow up in 2-3 days with your family doctor/primary care physician if no improvement so they can review those result and treat if necessary. If you don?t have a primary care doctor, I recommend you get one but in the mean time, you will have to return to a walk in clinic Follow up IMMEDIATELY for new or worsening symptoms or no Noticeable improvement over the next 48-72 hours. 911 for difficulty breathing or swallo wing Clinical Impressions Clinical Impression: Pharyngitis Qualifiers: Pharyngitis/tonsillitis etiology: unspecified etiology Qualified Code(s): J02.9 - Acute pharyngitis, unspecified Instructions Patient Instructions: Sore Throat Discharge ED Provider: Janey Combs [facility] [place] HPI General Stated complaint: sore throat, fever, cough, aches Mode of Arrival: Ambulatory Source of Information: Patient Limitations: No Limitations Time Seen by Provider: 09/03/23 09:25 Description of Symptoms (Recalled from Triage Doc. by RN): PATIENT C/O SORE THROAT, COUGH, FEVER AND BODY ACHES SINCE YESTERDAY HEENT Symptoms (Recalled from RN notes): Yes Resp Symptoms (Recalled from RN notes): Yes Skin Symptoms (Recalled from RN notes): No MS Symptoms (Recalled from RN notes): No Functional Status (Recalled from RN notes): WNL History of Present Illness Provider Complaint: Patient states that his and two grandchildren has strep throat and then yesterday his throat started hurting and hurting when he swallows, feeling achy and having fever and cough States he feels like he may have strep throat Related Data Home Medications Medication Instructions Recorded Confirmed atorvastatin 40 mg tablet 40 mg PO DAILY 09/03/23 09/03/23 bumetanide 2 mg tablet 2 mg PO DAILY 09/03/23 09/03/23 carvedilol 12.5 mg tablet 12.5 mg PO DAILY 09/03/23 09/03/23 clopidogrel 75 mg tablet 75 mg PO DAILY 09/03/23 09/03/23 gabapentin 600 mg tablet 600 mg PO DAILY 09/03/23 09/03/23 glimepiride 4 mg tablet 4 mg PO DAILY 09/03/23 09/03/23 lisinopril 20 2 tab PO BID 09/03/23 09/03/23 mg-hydrochlorothiazide 12.5 mg tablet metformin 500 mg tablet,extended 500 mg PO DAILY 09/03/23 09/03/23 release 24 hr omeprazole 40 mg capsule,delayed 40 mg PO DAILY 09/03/23 09/03/23 release oxycodone-acetaminophen 10 mg-325 1 tab PO DAILY 09/03/23 09/03/23 mg tablet sitagliptin phosphate 100 mg 100 mg PO DAILY 09/03/23 09/03/23 tablet (Januvia) Previous Rx's Medication Instructions Recorded amoxicillin 500 mg capsule 500 mg PO BID 10 days #20 caps 09/03/23 Allergies Allergy/AdvReac Type Severity Reaction Status Date / Time dobutamine AdvReac Unknown Hypertensio Verified 07/30/23 11:23 n Worker's Comp Is this a Worker's Comp case?: No [facility] Disclaimer: The information contained in this section may have been updated after the patient was seen, as this information can be updated by other users. Medical History Abdominal pain Constipation Deviated nasal septum Hypertrophy of inferior nasal turbinate Sinusitis Mixed restrictive and obstructive lung disease Cardiac pacemaker in situ Pulmonary emphysema Smoking greater than 30 pack years Dyspnea on exertion Lung mass Nodule of right lung Bilateral chronic serous otitis media Right maxillary sinusitis HFrEF (heart failure with reduced ejection fraction) Impacted cerumen of right ear Dizziness Abnormal electrocardiogram [ECG] [EKG] ANNA (obstructive sleep apnea) Hyperlipidemia Depression Anxiety Gastroesophageal reflux disease Insomnia Coronary artery disease History of TIA (transient ischemic attack) Hypertension Diabetes mellitus Epididymitis Palpitations Opiate withdrawal TIA (transient ischemic attack) Surgical History History of right mastoidectomy History of coronary artery bypass graft Family History Other Diabetes Social History Smoking Status: Current every day smoker tobacco type: cigarettes packs per day: 1 alcohol intake: never substance use type: denies use current occupational status: disabled Travel in the last 8 weeks: None household members: spouse and children housing: house ROS Obtained: Yes All systems reviewed & no additional complaints except as documented and Yes Systems reviewed as appropriate & no additional complaints except as documented Constitutional Constitutional: Reports as per HPI, Reports body ache and Reports fever(s) ENT Ears, Nose, Mouth, and Throat: Reports system reviewed and no additional complaints, except as documented, Reports as per HPI and Reports sore throat Cardiovascular Cardiovascular: Reports system reviewed and no additional complaints, except as documented and Reports as per HPI Respiratory Respiratory: Reports system reviewed and no additional complaints, except as documented, Reports as per HPI and Reports cough Gastrointestinal Gastrointestingal: Reports system reviewed and no additional complaints, except as documented and as per HPI Physical Exam General General appearance: alert and in no apparent distress Expanded ENT Exam Throat exam: Present tonsillar erythema Respiratory Respiratory exam: Present normal lung sounds bilaterally; Absent respiratory distress or wheezes Cardiovascular Cardiovascular exam: Present regular rate, normal rhythm and normal heart sounds Neurological Exam Neurological exam: Present alert, oriented X3 and normal gait Medical Decision Making George Inquiry Pt receiving controlled substance: No George was queried for this patient: No Vital Signs: 09/03/23 09:10 Temperature 98.2 F Temperature Source Oral Pulse Rate [Left Brachial] 78 Respiratory Rate 16 Blood Pressure [Left Arm] 111/69 Blood Pressure Mean [Left Arm] 83 Blood Pressure Source [Left Arm] Automatic Cuff Blood Pressure Position [Left Arm] Sitting 02 Sat by Pulse Oximetry 98 Oxygen Delivery Method Room Air Lab Data Lab results reviewed: Yes I reviewed the patient's lab results. Medical Decision Narrative: Patient states he has taken amoxicillin in the past without complications or reactions
[2023-09-03 09:34] VITALS: BP 111/69; PULSE 78; RESP 16; TEMP 36.8; O2SAT 98
[2023-09-03 09:34] LABS: UTC Strep Screen (Rapid) Negative (Negative)
== END 2023-09-03 09:36 | disposition home or self-care (01) ==
PROVIDERS: Emergency Provider Nurse Practitioner; PCP Physician Assistant
DX: J02.9 Acute pharyngitis, unspecified (principal); R50.9 Fever, unspecified; R05.9 Cough, unspecified; F17.210 Nicotine dependence, cigarettes, uncomplicated; E11.9 Type 2 diabetes mellitus without complications; E78.5 Hyperlipidemia, unspecified; I11.9 Hypertensive heart disease without heart failure; I25.10 Atherosclerotic heart disease of native coronary artery without angina pectoris; K21.9 Gastro-esophageal reflux disease without esophagitis; Z79.84 Long term (current) use of oral hypoglycemic drugs; Z95.0 Presence of cardiac pacemaker
CPT/HCPCS: 87880; 99212; 99214; G0463

== ENCOUNTER 2023-09-23 12:34 | Inpatient (IN) | payer MEDICARE, SELFPAY ==
[2023-09-23] VITALS (8 sets, daily range): BP systolic 101–128; BP diastolic 64–86; PULSE 52–81; RESP 15–20; TEMP 36.3–36.8; O2SAT 92–98; BMI 28.2; BMI 33.6
--- NOTE | 2023-09-23 13:07 | XR_ITS ---
FINAL REPORT CLINICAL HISTORY: shortness of air COMPARISON: 05/16/2023 FINDINGS: SINGLE-VIEW CHEST There is cardiomegaly with pulmonary vascular congestion. Patient is status post median sternotomy. Left subclavian ICD is present. There is no pneumothorax. IMPRESSION: Cardiomegaly with pulmonary vascular congestion. Reviewed, Interpreted and Dictated by Kirt Escobar III, MD Transcribed by Kendy Hall Authenticated and [facility]
[2023-09-23 13:24] LABS: VBG Base Excess 0.2 mmol/L (-2.4-2.3); VBG HCO3 26.2 mmol/L (23-30); VBG PCO2 51.2 mmol/L (35-51); VBG PH 7.33 mmol/L (7.31-7.41); VBG PO2 33.3 mmol/L (28-40); VBG Total CO2 27.8 mmol/L (23-27)
[2023-09-23 13:26] LABS: Basophils % 0.6 % (0.1-2.0); Eosinophils % 0.4 % (0.1-12.0); Hematocrit 40.3 % (42.0-52.0); Hemoglobin 12.1 g/dL (14.1-18.0); Lymphocytes # 0.9 K/mm3 (0.7-4.5); Lymphocytes % 17.2 % (10-50); Mean Corpuscular HGB Conc 30.1 g/dL (31.8-35.4); Mean Corpuscular Volume 79.8 fl (80-94); Mean Platelet Volume 12.1 fl (7.4-10.4); Monocytes # 0.4 K/mm3 (0.1-1.0); Monocytes % 6.7 % (1.7-9.3); Neutrophils # 4.1 K/mm3 (1.8-7.8); Neutrophils % 75.1 % (37.0-80.0); Platelet Count 144 K/mm3 (142-424); Red Blood Count 5.05 M/mm3 (4.60-6.20); Red Cell Distribution Width 21.1 % (11.5-17.5); White Blood Count 5.4 K/mm3 (4.8-10.8)
[2023-09-23 13:26] LABS: Lactate Venous 2.9 mmol/L (0.4-2.0)
[2023-09-23 13:29] LABS: Chloride 93 mmol/L (98-107); Potassium 3.5 mmoL/L (3.5-5.1); Sodium 134 mmol/L (136-145)
[2023-09-23 13:31] LABS: Alanine Aminotransferase 20 U/L (12-78); Albumin Level 3.8 g/dl (3.5-5.0); Albumin/Globulin Ratio 1.2 (1.1-1.8); Alkaline Phosphatase 95 U/L (38-126); Anion Gap 13.5 mEq/L (5-15); Aspartate Amino Transferase 25 U/L (17-59); Bilirubin,Total 1.2 mg/dl (0.2-1.3); Blood Urea Nitrogen 50 mg/dl (9-20); Carbon Dioxide 31 mmol/L (22.0-30.0); Creatinine Clearance Estimated 57 mL/min (50-200); Estimated Glomerular Filt Rate 36 ml/min (>60); GFR (African American) 44 ML/MIN (>60); Globulin 3.2 g/dL (1.3-3.2)
[2023-09-23 13:32] LABS: Calcium 9.1 mg/dl (8.4-10.2); Glucose 201 mg/dl (74-100)
--- NOTE | 2023-09-23 13:39 | ED_ITS ---
Discharge Plan Disposition Patient Disposition: Admitted Condition: Fair Clinical Impressions Clinical Impression: Acute kidney injury, Congestive heart failure Discharge ED Provider: Liz Brown Adult HPI General Chief complaint: Skin/Abscess/Foreign Body Stated complaint: legs swollen and oozing, soa Time Seen by Provider: 09/23/23 13:19 Mode of Arrival: Wheelchair Source of Information: Patient Limitations: No Limitations Description of Symptoms (Recalled from ER Triage Doc. by RN): pt presents to ED with c/o blisters on right lower leg. pt reports blisters have been coming up on lower right leg for the past week and have been popping with clear fluid. pts reports she became concerned due to blisters continuing to come up. pt does have CHF and takes a fluid pill. History of Present Illness HPI narrative: 63-year-old male with significant past cardiac history, NSTEMI, CAD, pacemaker, emphysema, HFrEF on daily bumetanide among other chronic medical conditions presents to the ER with concerns of leg swelling, blisters on the lower legs, he also has a bruise on his right arm that he thinks is from the lawnmower but he is not sure and seems to be bruising more easily than normal. Patient and family at bedside are mostly concerned about the blisters on the legs. No known other traumatic injuries. Related Data Home Medications Medication Instructions Recorded Confirmed atorvastatin 40 mg tablet 40 mg PO DAILY 09/03/23 09/23/23 bumetanide 2 mg tablet 1 mg PO DAILY 09/03/23 09/23/23 carvedilol 12.5 mg tablet 12.5 mg PO DAILY 09/03/23 09/23/23 clopidogrel 75 mg tablet 75 mg PO DAILY 09/03/23 09/23/23 gabapentin 600 mg tablet 600 mg PO QID 09/03/23 09/23/23 glimepiride 4 mg tablet 4 mg PO DAILY 09/03/23 09/23/23 lisinopril 20 2 tab PO BID 09/03/23 09/23/23 mg-hydrochlorothiazide 12.5 mg tablet omeprazole 40 mg capsule,delayed 40 mg PO DAILY 09/03/23 09/23/23 release oxycodone-acetaminophen 10 mg-325 1 tab PO QIDP PRN Moderate Pain 09/03/23 09/23/23 mg tablet (Scale Score 5-6) sitagliptin phosphate 100 mg 100 mg PO DAILY 09/03/23 09/23/23 tablet (Januvia) metformin 500 mg tablet,extended 1,000 mg PO BID 09/23/23 09/23/23 release 24 hr Allergies Allergy/AdvReac Type Severity Reaction Status Date / Time dobutamine AdvReac Unknown Hypertensio Verified 07/30/23 11:23 n [facility] Disclaimer: The information contained in this section may have been updated after the patient was seen, as this information can be updated by other users. Medical History Abdominal pain Constipation Deviated nasal septum Hypertrophy of inferior nasal turbinate Sinusitis Mixed restrictive and obstructive lung disease Cardiac pacemaker in situ Pulmonary emphysema Smoking greater than 30 pack years Dyspnea on exertion Lung mass Nodule of right lung Bilateral chronic serous otitis media Right maxillary sinusitis HFrEF (heart failure with reduced ejection fraction) Impacted cerumen of right ear Dizziness Abnormal electrocardiogram [ECG] [EKG] ANNA (obstructive sleep apnea) Hyperlipidemia Depression Anxiety Gastroesophageal reflux disease Insomnia Coronary artery disease History of TIA (transient ischemic attack) Hypertension Diabetes mellitus Epididymitis Palpitations Opiate withdrawal TIA (transient ischemic attack) Surgical History History of removal of testicle History of hernia surgery History of cholecystectomy History of right mastoidectomy History of coronary artery bypass graft Family History Other Diabetes Social History (Updated 09/23/23 @ 15:59 by Clara Soto RN) Smoking Status: Current every day smoker tobacco type: cigarettes packs per day: 1 alcohol intake: never substance use type: denies use current occupational status: disabled Travel in the last 8 weeks: None household members: spouse and children housing: house ROS Obtained: Yes All systems reviewed & no additional complaints except as documented Constitutional Constitutional: Denies chills, Denies fever(s), Denies headache(s) and Reports weakness (Generalized) Eyes Eyes: Denies change in vision ENT Ears, Nose, Mouth, and Throat: Denies dizziness, Denies headache(s), Denies nasal congestion and Denies sore throat Cardiovascular Cardiovascular: Denies chest pain, Denies dyspnea, Reports edema and Denies leg edema Respiratory Respiratory: Denies cough and Denies dyspnea Gastrointestinal Gastrointestingal: Denies constipation, diarrhea, nausea or vomiting Genitourinary Male Genitourinary: Denies difficulty urinating Musculoskeletal Musculoskeletal: Denies arthralgias, Denies myalgias, Denies numbness and Denies tingling Integumentary/Breasts Skin/Breast: Denies change in pigmentation and Reports lesions (Superficial blisters right lower extremity worse than left) Comments: Bruising right arm Neurologic Neurologic: Denies dizziness, Denies headache(s), Denies numbness, Denies tingling and Reports weakness (Generalized) Physical Exam General General appearance: alert and in no apparent distress Head Head exam: atraumatic and normocephalic Eye Eye exam: Present PERRL and EOMI ENT ENT exam: Present mucous membranes moist Neck Neck exam: Present normal inspection and full ROM Chest Chest inspection: Present symmetric chest wall rise Respiratory Respiratory exam: Present normal lung sounds bilaterally; Absent respiratory distress, wheezes or stridor Cardiovascular Cardiovascular exam: Present regular rate and normal rhythm Abdominal Exam Abdominal exam: Present soft; Absent distention or tenderness Extremities Exam Extremities exam: Present full ROM and edema (Pitting edema in distal bilateral lower extremities, right lower extremity with few superficial blisters, some of which have opened, no sloughing) Neurological Exam Neurological exam: Present alert and oriented X3; Absent motor sensory deficit Psychiatric Psychiatric exam: Present normal affect and normal mood Skin Skin exam: Present warm, dry and other (Skin blisters on bilateral lower extremities as described in extremity exam; area of bruising on the right upper extremity, 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) Medical Decision Making George Inquiry Pt receiving controlled substance: No Vital Signs: 09/23/23 12:36 09/23/23 13:00 09/23/23 13:23 Temperature 98.0 F 98.2 F Temperature Source Oral Oral Pulse Rate 64 78 Pulse Rate [Left Radial] 67 Respiratory Rate 15 18 Blood Pressure 116/86 110/75 Blood Pressure [Right Arm] 128/79 Blood Pressure Mean [Right Arm] 95 02 Sat by Pulse Oximetry 97 96 Oxygen Delivery Method Room Air Room Air Room Air 09/23/23 13:45 09/23/23 13:47 09/23/23 14:38 Temperature Temperature Source Pulse Rate 63 52 L 81 Pulse Rate [Left Radial] Respiratory Rate Blood Pressure 120/78 120/78 120/84 Blood Pressure [Right Arm] Blood Pressure Mean [Right Arm] 02 Sat by Pulse Oximetry 95 92 L 96 Oxygen Delivery Method Room Air Room Air Lab Data Lab Results 09/23/23 13:07: VBG pH 7.33, VBG pCO2 51.2 H, VBG pO2 33.3, VBG HCO3 26.2, VBG Total CO2 27.8 H, VBG O2 Saturation 57.0, VBG Base Excess 0.2, VBG Lactic Acid 2.9 H 09/23/23 13:13: WBC 5.4, RBC 5.05, Hgb 12.1 L, Hct 40.3 L, MCV 79.8 L, MCH 24.0 L, MCHC 30.1 L, RDW 21.1 H, Plt Count 144, MPV 12.1 H, Neut % (Auto) 75.1, Lymph % (Auto) 17.2, [place] % (Auto) 6.7, Eos % (Auto) 0.4, Baso % (Auto) 0.6, Neut # (Auto) 4.1, Lymph # (Auto) 0.9, [place] # (Auto) 0.4, Eos # (Auto) 0.0, Baso # (Auto) 0.0, PT 13.8 H, INR 1.30 H, APTT 27.6, Sodium 134 L, Potassium 3.5, C hloride 93 L, Carbon Dioxide 31 H, Anion Gap 13.5, BUN 50 H, Creatinine 1.90 H, Estimated Creat Clear 57, Estimated GFR 36 L, Est GFR ( Amer) 44 L, G lucose 201 H, Hemoglobin A1c 8.0 H, Calcium 9.1, Total Bilirubin 1.2, AST 25, ALT 20, Alkaline Phosphatase 95, Troponin I 0.02, Total Protein 7.0, Albumin 3.8, Globulin 3.2, Albumin/Globulin Ratio 1.2, Triglycerides 91, Cholesterol 103 L, LDL Cholesterol Direct 64.40 L, VLDL Cholesterol 18, HDL Cholesterol 30 L, Cholesterol/HDL Ratio 3.4 09/23/23 13:13 09/23/23 13:13 Orders (Tests/Meds): ED MEDICATIONS Generic Name Dose Route Start Last Admin Trade Name Freq PRN Reason Stop Dose Admin Clopidogrel Bisulfate 75 mg 09/24/23 09:00 Clopidogrel 75mg Tab PO 10/24/23 08:59 DAILY ANKUR Gabapentin 300 mg 09/23/23 21:00 Gabapentin 300mg Capsule PO 10/23/23 20:59 BID ANKUR Heparin Sodium (Porcine) 5,000 unit 09/23/23 21:00 Heparin Sodium 5,000 Unit/Ml Vial SQ 10/23/23 20:59 BID ANKUR Bumetanide 10 mg/ Sodium 100 mls @ 10 mls/hr 09/23/23 15:23 09/23/23 16:19 Chloride IV 10/23/23 15:22 10 mls/hr .Q10H ANKUR Administration Insulin Human Lispro 0 unit 09/23/23 16:30 Humalog 100 Units/Ml 3ml Vial (Ssi) SQ 10/23/23 16:29 ACHS ANKUR Protocol Oxycodone/Acetaminophen 1 each 09/23/23 15:32 Oxycodone 10mg W/Apap 325mg Tablet PO 10/23/23 15:31 QIDP PRN Moderate Pain (Scale Score 5-6) Pantoprazole Sodium 40 mg 09/23/23 21:00 Pantoprazole 40mg Tablet PO 10/23/23 20:59 HS ANKUR Sodium Chloride 10 ml 09/23/23 13:16 Sodium Chloride 0.9% 10ml Flush Syringe IV 10/23/23 13:15 NEEDED PRN Maintain IV Site Discontinued Medications Generic Name Dose Route Start Last Admin Trade Name Freq PRN Reason Stop Dose Admin Bumetanide 2 mg 09/23/23 14:08 09/23/23 14:35 Bumetanide 1mg/4ml Vial IV 09/23/23 14:09 2 mg ONCE ONE Administration Ondansetron HCl 4 mg 09/23/23 14:25 09/23/23 14:35 Ondansetron 4mg/2ml Vial IV 09/23/23 14:26 4 mg ONCE ONE Administration Oxycodone/Acetaminophen 1 each 09/23/23 14:26 09/23/23 14:33 Oxycodone 10mg W/Apap 325mg Tablet PO 09/23/23 14:27 1 each ONCE ONE Administration ORDERS Category Date Time Status Cardiology Consult [Consult to Cardiology] [CONS] Cons 09/23/23 14:08 Active Routine XR chest portable Stat Exams 09/23/23 13:07 Completed BNP [NT Pro Brain Natriuretic Pep.] Routine Lab 09/23/23 13:13 Received Complete Blood Count Auto Diff AMLAB Lab 09/24/23 06:00 Ordered Complete Blood Count Auto Diff Stat Lab 09/23/23 13:13 Completed Comprehensive Metabolic Panel AMLAB Lab 09/24/23 06:00 Ordered Comprehensive Metabolic Panel Stat Lab 09/23/23 13:13 Completed Magnesium AMLAB Lab 09/24/23 06:00 Ordered PT INR [Prothrombin Time INR] Stat Lab 09/23/23 13:13 Completed PTT [Activated Partial Thrombo Time] Stat Lab 09/23/23 13:13 Completed Troponin I Q3H Lab 09/23/23 16:09 Received Troponin I Q3H Lab 09/23/23 19:15 Ordered Troponin I Stat Lab 09/23/23 13:13 Completed VBG [Venous Blood Gas] Stat RT 09/23/23 13:07 Completed HEART Score History (anamnesis): Slightly suspicious ECG: Non-specific disturbance Age: 45-65 years Risk factors: 3 or more risk factors Troponin: </= normal limit HEART Score: 4 Medical Decision Narrative: In summary, this 63year old male presents to the emergency department today with shortness of breath, peripheral swelling, blisters on the legs, generalized malaise, bruising on the right arm. On initial evaluation patient is hemodynamically stable, afebrile, peripheral edema and blistering present on the distal lower extremities, bruising on the right arm, no petechiae, Rales at bilateral bases. Differential diagnosis includes but is not limited to ACS, pleural effusion, coagulopathy, electrolyte abnormality. Based on these concerns, I ordered cardiac workup, chest x-ray, BMP, coags. Initial EKG performed on personal interpretation demonstrates significant artifact and findings consistent with patient having a pacemaker, occasional PVC, no obvious STEMI, prolonged SD. Rate 76. Repeat ECG demonstrates sinus rhythm, rate 69, borderline axis deviation, no STEMI, normal SD and QTc, occasional PVC. Labs personally reviewed demonstrate GITA, findings of fluid overload, lactic acidosis, VBG with normal pH, initial troponin 0.02, improved from previous troponins which I reviewed. XR personally interpreted demonstrates pulmonary edema, see radiology read for final interpretation, significant cardiomegaly is present. Given patient's abnormal findings on labs including new GITA as well as his obvious fluid overload but will require further diuresis despite poor kidney function, I believe he requires admission. I discussed this with the patient. He is amenable to this plan. I called Dr. Ivey and had an interactive discussion with him regarding patient's findings of GITA and need for additional diuresis. He is accepted the patient for admission. Critical Care Critical Care Time Critical Care Time: No
[2023-09-23 13:44] LABS: Troponin I 0.02 ng/ml (0.00-0.034)
--- NOTE | 2023-09-23 13:44 | ECG_ITS ---
APPROVED REPORT Exam: Resting ECG HR:69 bpm ECG Measurements Heart Rate 69 AXES LA 179 P 76 QRSd 124 QRS -58 QT 452 T 95 QTc 471 Conclusion SINUS RHYTHM WITH OCCASIONAL VENTRICULAR PREMATURE COMPLEXES LEFT ANTERIOR FASCICULAR BLOCK [QRS AXIS <= -45, QR IN I, RS IN II] LEFT VENTRICULAR HYPERTROPHY AND ST-T CHANGE [VOLTAGE CRITERIA PLUS ST/T ABNORMALITY] POSSIBLE ANTERIOR MYOCARDIAL INFARCTION , PROBABLY OLD [30 ms Q WAVE IN V3/V4, OR R < 0.2 mV IN V4] ABNORMAL ECG Occasional PVC, no STEMI Electronically signed by : AYLIN CHEEMA, 09/23/2023 17:08:06
[2023-09-23 13:52] LABS: Activated Partial Thrombo Time 27.6 seconds (22.8-30.6); Prothrombin Time 13.8 seconds (10.1-12.5)
--- NOTE | 2023-09-23 14:12 | P.HP_ITS ---
History of Present Illness *Admission Date: 09/23/23 *Reason for visit:: dyspnea, edema *History of present illness: Mr. Vargas is a 63-year-old male with heart failure with reduced ejection fraction, history of CABG, hypertension, hyperlipidemia, ANNA, diabetes. States he has not smoked in over 20 years. Presented to the ER with complaint of worsening edema over the past 1 to 2 weeks. He has noticed the development of blisters and increased pain in his legs over the past week. Denies fever, nausea, vomiting, diarrhea. Reports compliance with his medications. Is on Bumex daily. Has had decreased urine output over the past 24 to 48 hours. On arrival to the ER, complains of some shortness of breath, worse with exertion. Denies any chest pain. adds that he has been forgetful over the past few months. On workup in the ER, concerning for kidney injury with elevated cre atinine at 1.9 (baseline normal at 1). Frankly volume overloaded on physical exam. Chest imaging concerning for increased pulmonary congestion. Medicine consulted for admission and further management of volume overload and suspected heart failure exacerbation. On arrival to the floor, patient is stable on room air. Has edema up to his thighs. at bedside helps give additional history. Echo in January with EF 40 to 45%. Elevated RVSP at 30 to 35 mmHg Implantable defibrillator in place -Follows with cardiology, most recently seen in July Abdominal ultrasound and February with fatty infiltration -Seen by Radha Mackey in July [facility] Disclaimer: The information contained in this section may have been updated after the patient was seen, as this information can be updated by other users. Medical History Abdominal pain Constipation Deviated nasal septum Hypertrophy of inferior nasal turbinate Sinusitis Mixed restrictive and obstructive lung disease Cardiac pacemaker in situ Pulmonary emphysema Smoking greater than 30 pack years Dyspnea on exertion Lung mass Nodule of right lung Bilateral chronic serous otitis media Right maxillary sinusitis HFrEF (heart failure with reduced ejection fraction) Impacted cerumen of right ear Dizziness Abnormal electrocardiogram [ECG] [EKG] ANNA (obstructive sleep apnea) Hyperlipidemia Depression Anxiety Gastroesophageal reflux disease Insomnia Coronary artery disease History of TIA (transient ischemic attack) Hypertension Diabetes mellitus Epididymitis Palpitations Opiate withdrawal TIA (transient ischemic attack) Surgical History History of removal of testicle History of hernia surgery History of cholecystectomy History of right mastoidectomy History of coronary artery bypass graft Family History Other Diabetes Social History (Updated 09/23/23 @ 15:59 by Clara Soto, RN) Smoking Status: Current every day smoker tobacco type: cigarettes packs per day: 1 alcohol intake: never substance use type: denies use current occupational status: disabled Travel in the last 8 weeks: None household members: spouse and children housing: house Review of Systems Review of Systems Review of systems (narrative): 14 point review of systems performed, pertinent positives and negatives as per [facility] Meds Home Medications and Allergies Home Medications Medication Instructions Recorded Confirmed Type atorvastatin 40 mg tablet 40 mg PO DAILY 09/03/23 09/23/23 History bumetanide 2 mg tablet 1 mg PO DAILY 09/03/23 09/23/23 History carvedilol 12.5 mg tablet 12.5 mg PO DAILY 09/03/23 09/23/23 History clopidogrel 75 mg tablet 75 mg PO DAILY 09/03/23 09/23/23 History gabapentin 600 mg tablet 600 mg PO QID 09/03/23 09/23/23 History glimepiride 4 mg tablet 4 mg PO DAILY 09/03/23 09/23/23 History lisinopril 20 2 tab PO BID 09/03/23 09/23/23 History mg-hydrochlorothiazide 12.5 mg tablet omeprazole 40 mg capsule,delayed 40 mg PO DAILY 09/03/23 09/23/23 History release oxycodone-acetaminophen 10 mg-325 1 tab PO QIDP PRN Moderate Pain 09/03/23 09/23/23 History mg tablet (Scale Score 5-6) sitagliptin phosphate 100 mg 100 mg PO DAILY 09/03/23 09/23/23 History tablet (Januvia) metformin 500 mg tablet,extended 1,000 mg PO BID 09/23/23 09/23/23 History release 24 hr New Prescriptions to Start Prescriptions: Allergies Allergy/AdvReac Type Severity Reaction Status Date / Time dobutamine AdvReac Unknown Hypertensio Verified 07/30/23 11:23 n Exam Data for Last 24 hours Vital signs and Labs for Last 24 Hours: Temp Pulse Resp BP Pulse Ox O2 Del Method 98.2 F 63 18 120/78 95 Room Air 09/23/23 13:23 09/23/23 13:45 09/23/23 13:23 09/23/23 13:45 09/23/23 13:45 09/23/23 13:45 Laboratory Results - last 24 hr 09/23/23 13:07: VBG pH 7.33, VBG pCO2 51.2 H, VBG pO2 33.3, VBG HCO3 26.2, VBG Total CO2 27.8 H, VBG O2 Saturation 57.0, VBG Base Excess 0.2, VBG Lactic Acid 2.9 H 09/23/23 13:13: WBC 5.4, RBC 5.05, Hgb 12.1 L, Hct 40.3 L, MCV 79.8 L, MCH 24.0 L, MCHC 30.1 L, RDW 21.1 H, Plt Count 144, MPV 12.1 H, Neut % (Auto) 75.1, Lymph % (Auto) 17.2, [place] % (Auto) 6.7, Eos % (Auto) 0.4, Baso % (Auto) 0.6, Neut # (Auto) 4.1, Lymph # (Auto) 0.9, [place] # (Auto) 0.4, Eos # (Auto) 0.0, Baso # (Auto) 0.0, Sodium 134 L, Potassium 3.5, Chloride 93 L, Carbon Dioxide 31 H, Anion Gap 13.5, BUN 50 H, Creatinine 1.90 H, Estimated Creat Clear 57, Estimated GFR 36 L, Est GFR ( Amer) 44 L, Glucose 201 H, Calcium 9.1, Total Bilirubin 1.2, AST 25, ALT 20, Alkaline Phosphatase 95, Troponin I 0.02, Total Protein 7.0, Albumin 3.8, Globulin 3.2, Albumin/Globulin Ratio 1.2 I & O for Last 24 hours: Intake & Output 09/20/23 09/21/23 09/22/23 09/23/23 23:59 23:59 23:59 23:59 Weight 99.79 kg Constitutional Constitutional: no acute distress, average body habitus, chronically ill appearing, disheveled and cooperative *Routine HEENT Exam Head: Present normocephalic and atraumatic Eye: Present EOMI and PERRL ENT: Present mucous membranes moist *Routine Neck Exam Neck: Present supple; Absent JVD Routine Chest/Breast/Axilla Exam Chest wall: Absent tenderness *Routine Respiratory Exam Respiratory: Present crackles (bilaterally); Absent accessory muscle use, respiratory distress, rhonchi or wheezes *Routine Cardiovascular Exam Cardiovascular: Present RRR, Normal S1 and Normal S2; Absent murmur *Routine Abdominal Exam Abdominal: Present soft, normoactive bowel sounds and distended; Absent tenderness *Routine Rectal Exam Rectal:: deferred *Routine Genitalia Exam Genitalia:: deferred *Routine Extremities Exam Extremities: Present edema (3+ to thighs); Absent cyanosis or clubbing *Routine Skin Exam Skin: Present intact; Absent cyanosis or erythema Comments: Stasis dermatitis on legs, small blisters and some skin breakdown. No significant weeping *Routine Neurological Exam Neurological: Present alert, oriented X3, CN II-XII intact and moving all extremities; Absent sensory deficit or altered mental status Routine Psychiatric Exam Psychiatric: Present normal affect and normal thought process; Absent suicidal ideation or homicidal ideation Assessment and Plan *Assessment and plan (1) Acute on chronic heart failure with reduced ejection fraction and diastolic dysfunction: Status: Acute Category: Medical Code(s): I50.43 - Acute on chronic combined systolic (congestive) and diastolic (congestive) heart failure (2) Acute kidney injury: Status: Acute Category: Medical Code(s): N17.9 - Acute kidney failure, unspecified (3) Edema: Status: Acute Qualifiers: Edema type: unspecified Qualified Code(s): R60.9 - Edema, unspecified Category: Medical Code(s): R60.9 - Edema, unspecified (4) Pulmonary edema with congestive heart failure: Status: Acute Category: Medical Code(s): I50.1 - Left ventricular failure, unspecified (5) Mixed restrictive and obstructive lung disease: Status: Acute Category: Medical Code(s): J43.9 - Emphysema, unspecified; J98.4 - Other disorders of lung (6) Essential hypertension: Status: Acute Category: Medical Code(s): I10 - Essential (primary) hypertension (7) Depression: Status: Chronic Qualifiers: Active/Remission status: currently active Depression Type: major depressive disorder Major depression episode severity: moderate Major depression recurrence: single episode Qualified Code(s): F32.1 - Major depressive disorder, single episode, moderate Category: Medical Code(s): F32.A - Depression, unspecified (8) Anxiety: Status: Chronic Category: Medical Code(s): F41.9 - Anxiety disorder, unspecified (9) Diabetes mellitus: Status: Chronic Qualifiers: Diabetes mellitus complication status: with hyperglycemia Diabetes mellitus exterminator insulin use: without exterminator use Diabetes mellitus type: type 2 Qualified Code(s): E11.65 - Type 2 diabetes mellitus with hyperglycemia Category: Medical Code(s): E11.9 - Type 2 diabetes mellitus without complications (10) Coronary artery disease: Status: Chronic Qualifiers: Associated angina: without angina Coronary Disease-Associated Artery/Lesion type: [place] artery [place] vs. transplanted heart: [place] heart Qualified Code(s): I25.10 - Atherosclerotic heart disease of [place] coronary artery without angina pectoris Category: Medical Code(s): I25.10 - Atherosclerotic heart disease of [place] coronary artery without angina pectoris (11) Cardiac pacemaker in situ: Status: Chronic Category: Medical Code(s): Z95.0 - Presence of cardiac pacemaker Plan 63-year-old male with history of heart failure, presented with swelling in his legs and shortness of breath. Found to have GITA and volume overload. Discussed case with ER physician, request admission for diuresis and further management of kidney injury. Medicine agreed to admit. Initiated on Bumex. Cardiology consulted. Necessitating inpatient management for diuresis and volume optimization. Echocardiogram pending. Problems addressed as follows: Acute on chronic heart failure with reduced ejection fraction Volume overload -Chest imaging personally reviewed, increased pulmonary congestion. BNP obtained and pending, 3+ edema to thighs -Given Bumex 2 mg IV x 1, will initiate Bumex drip at the recommendation of cardiology -Cardiology consulted, appreciate their recommendations. Will continue to follow along. -Repeat echocardiogram pending. Previous echo within the past 6 months showed EF improved to 40 to 45%, had been as low as 20 to 25% prior. Defibrillator in place. -Holding KORY inhibitor in the setting of GITA, will likely need Entresto prior to discharge home if kidney function improves. As he is normotensive and bradycardic, will hold carvedilol. Continue Plavix and statin GITA -Baseline creatinine approximately 1. Creatinine elevated 1.9. Monitor closely his output. Strict I's and O's. Repeat BMP ordered for this evening, CBC, CMP, magnesium ordered for the morning. -Suspect component of renal congestion and volume overload causing GITA -Caution with nephrotoxins, will renally dose medications Diabetes: A1c obtained, elevated 8 had only on glimepiride, Januvia, and metformin at home. Will initiate sliding scale insulin with fingersticks ACHS, A1c in February was 10. Would likely benefit from once daily long-acting insulin Continue home gabapentin renally dosed at 300 mg twice daily Continue home oxycodone 10 mg 4 times a day as needed Continue pantoprazole (formulary conversion) for GERD Full code Heparin subcu 5000 units twice daily Diabetic diet
--- NOTE | 2023-09-23 14:29 | PC.NURSE ---
report called to [facility] on second floor
--- NOTE | 2023-09-23 14:31 | HMH.PHAINT1 ---
Pharmacy Intervention Comments: HOME MEDICATION LIST VERIFIED USING LIST FROM OUTPATIENT PHARMACY
[2023-09-23] MEDS: OXYCODONE 10MG W/APAP 325MG TABLET 1 EACH PO ×2 (14:33→18:53)
[2023-09-23] MEDS: BUMETANIDE 1MG/4ML VIAL 2 MG IV (14:35)
[2023-09-23] MEDS: ONDANSETRON 4MG/2ML VIAL 4 MG IV (14:35)
--- NOTE | 2023-09-23 14:35 | PC.NURSE ---
Cardiology at bedside for consult, staff awaiting to take pt to the floor.
--- NOTE | 2023-09-23 14:44 | CA_ITS ---
APPROVED REPORT EXAM: Comprehensive 2D, Doppler, and color-flow Echocardiogram Crab Steamer: Jessika Oconnor RT(R) Ht: 5 ft 10 in Wt: 234lbs BSA: 2.23 BP: 120/78 mmHg Indications: CHF, COPD, smoker, palpitations, HTN, DM, [place], hyperlipidemia, pacemaker, HFrEF, abn EKG, ANNA, GERD, hx TIA, hx CABG, 40-45% EF echo 02/11/23 2D Dimensions EF AP4 38.80 % GL Strain -6.7 % M-Mode Dimensions RVDd 5.66 cm (0.9-2.6) LA Diam 4.26 cm (1.9-4.0) LVDd 6.96 cm (3.5-5.7) LVDs 6.38 cm (3.5-5.7) IVSd 1.03 cm (0.6-1.1) PWd 0.62 cm (0.6-1.1) EF (Teich) 17.90% FS 8.30% EDV (Teich) 252.10 mL TAPSE 0.99 (<1.7) ESV (Teich) 207.00 mL LV Diastology E Decel Time 163 (160-240 msec) E/A Ratio 0.7 Mitral Valve MV E Max Vito. 48.0 (40-130 cm/s) MV A Velocity 73.0 (40-130 cm/s) E/A Ratio 0.66 MV PHT 48.0 ms Tricuspid Valve TR P. Velocity 285.00 cm/s RAP Estimate 15.00 mmHg RVSP 47.40 mmHg Left Ventricle The left ventricle is mildly dilated. Left ventricular systolic function is severely decreased. There is increased LV wall thickness (IVSd 1.4 cm). Severe global hypokinesis is present. LVEF is 10%. Grade 2 diastolic dysfunction is present. Right Ventricle The right ventricle is severely dilated. Right ventricle is severely hypokinetic. There is a device lead in the right ventricle. Atria Left atrium is mildly dilated. Right atrium is severely dilated. There is no Doppler evidence of interatrial shunt. Aortic Valve The aortic valve leaflets are mildly thickened. There is incomplete excursion of the aortic valve leaflets, suggestive of low stroke-volume. There is no aortic valvular stenosis. Mild aortic regurgitation. Mitral Valve The mitral valve leaflets are mildly thickened. No evidence of mitral valve stenosis. Trace mitral regurgitation. Tricuspid Valve The tricuspid valve leaflets are thin and pliable. Moderate tricuspid regurgitation. RVSP is 50-55 mmHg. Pulmonic Valve The pulmonary valve is normal in structure. Mild pulmonic regurgitation. Great Vessels The aortic root is normal in size. The ascending aorta is normal in size. The IVC is dilated. Pericardium There is no pericardial effusion. Other Information Study Quality: Fair Conclusion Mild LV dilation with severe reduction in LV systolic function (LVEF 10%). Markedly increased LV wall thickness (IVSd 1.4 cm). Grade 2 diastolic dysfunction. Severe RV dilation with severe reduction in RV function. Biatrial dilation. Mild AI. Moderate TR. Elevated RVSP 50-55 mmHg. In the setting of severe biventricular dysfunction and elevated filling pressures with reduction in LV stroke-volume on TTE, further evaluation for low output state is recommended. Also, in the setting of increased LV wall thickness, further outpatient evaluation with cardiac MRI (amyloidosis protocol) is also recommended (note the presence of device leads). Electronically signed by : Deepthi Holly MD 09/24/2023 11:57:30
--- NOTE | 2023-09-23 14:48 | P.CONCA_ITS ---
History of Present Illness History of Present Illness Consult date: 09/23/23 Requesting physician: Donnell Ivey Chief complaint: blisters and swelling to legs History of present illness: This is a 63-year-old white male with past medical history of coronary artery disease status post CABG, hypertension, hyperlipidemia, heart failure with reduced ejection fraction status post AICD, obstructive sleep apnea, diabetes mellitus, carotid artery stenosis and current tobacco use who presents to emergency department with complaints of bilateral lower extremity swelling and blisters to legs x 1 week. Patient reports shortness of air, denies chest pain. Labs as follow: WBC 5.4, hemoglobin 12.1, INR 1.3, sodium 134, potassium 3.4, creatinine 1.9. Troponin is negative. EKG negative for acute ischemic changes. Chest x-ray obtained which shows cardiomegaly with pulmonary vascular congestion noted. Patient will be admitted for acute kidney injury and heart failure with reduced ejection fraction exacerbation. [facility] Disclaimer: The information contained in this section may have been updated after the patient was seen, as this information can be updated by other users. Medical History Abdominal pain Constipation Deviated nasal septum Hypertrophy of inferior nasal turbinate Sinusitis Mixed restrictive and obstructive lung disease Cardiac pacemaker in situ Pulmonary emphysema Smoking greater than 30 pack years Dyspnea on exertion Lung mass Nodule of right lung Bilateral chronic serous otitis media Right maxillary sinusitis HFrEF (heart failure with reduced ejection fraction) Impacted cerumen of right ear Dizziness Abnormal electrocardiogram [ECG] [EKG] ANNA (obstructive sleep apnea) Hyperlipidemia Depression Anxiety Gastroesophageal reflux disease Insomnia Coronary artery disease History of TIA (transient ischemic attack) Hypertension Diabetes mellitus Epididymitis Palpitations Opiate withdrawal TIA (transient ischemic attack) Surgical History History of right mastoidectomy History of coronary artery bypass graft Family History Other Diabetes Social History Smoking Status: Current every day smoker tobacco type: cigarettes packs per day: 1 alcohol intake: never substance use type: denies use current occupational status: disabled Travel in the last 8 weeks: None household members: spouse and children housing: house Review of Systems Constitutional Constitutional: Denies headache(s) and Reports weakness (Generalized) ENT Ears, Nose, Mouth, and Throat: Denies dizziness and Denies headache(s) *Cardiovascular Cardiovascular: Denies chest pain and Reports dyspnea Comments: Lower extremity edema *Respiratory Respiratory: Reports dyspnea *Musculoskeletal Musculoskeletal: Denies numbness and Denies tingling *Neurologic Neurologic: Denies dizziness, Denies headache(s), Denies numbness, Denies tingling and Reports weakness (Generalized) Exam Data for Last 24 hours Vital signs and Labs for Last 24 Hours: Temp Pulse Resp BP Pulse Ox O2 Del Method 98.2 F 52 L 18 120/78 92 L Room Air 09/23/23 13:23 09/23/23 13:47 09/23/23 13:23 09/23/23 13:47 09/23/23 13:47 09/23/23 13:45 Laboratory Results - last 24 hr 09/23/23 13:07: VBG pH 7.33, VBG pCO2 51.2 H, VBG pO2 33.3, VBG HCO3 26.2, VBG Total CO2 27.8 H, VBG O2 Saturation 57.0, VBG Base Excess 0.2, VBG Lactic Acid 2.9 H 09/23/23 13:13: WBC 5.4, RBC 5.05, Hgb 12.1 L, Hct 40.3 L, MCV 79.8 L, MCH 24.0 L, MCHC 30.1 L, RDW 21.1 H, Plt Count 144, MPV 12.1 H, Neut % (Auto) 75.1, Lymph % (Auto) 17.2, [place] % (Auto) 6.7, Eos % (Auto) 0.4, Baso % (Auto) 0.6, Neut # (Auto) 4.1, Lymph # (Auto) 0.9, [place] # (Auto) 0.4, Eos # (Auto) 0.0, Baso # (Auto) 0.0, PT 13.8 H, INR 1.30 H, APTT 27.6, Sodium 134 L, Potassium 3.5, Chloride 93 L, Carbon Dioxide 31 H, Anion Gap 13.5, BUN 50 H, Creatinine 1.90 H, Estimated Creat Clear 57, Estimated GFR 36 L, Est GFR ( Amer) 44 L, Glucose 201 H, Calcium 9.1, Total Bilirubin 1.2, AST 25, ALT 20, Alkaline Phosphatase 95, Troponin I 0.02, Total Protein 7.0, Albumin 3.8, Globulin 3.2, Albumin/Globulin Ratio 1.2 I & O for Last 24 hours: Intake & Output 09/20/23 09/21/23 09/22/23 09/23/23 23:59 23:59 23:59 23:59 Weight 220 lb Constitutional Constitutional: no acute distress *Routine Respiratory Exam Respiratory: Present symmetric chest movement *Routine Cardiovascular Exam Cardiovascular: Present RRR, Normal S1 and Normal S2 *Routine Abdominal Exam Abdominal: Present soft and normoactive bowel sounds; Absent tenderness Comments: Slightly distended *Routine Extremities Exam Extremities: Present edema, full ROM and normal capillary refill *Routine Skin Exam Skin: Present intact, dry and warm Detailed Neck Exam: Thyroids Thyroid: Absent bruit Meds Home Medications and Allergies Home Medications Medication Instructions Recorded Confirmed Type atorvastatin 40 mg tablet 40 mg PO DAILY 09/03/23 09/23/23 History bumetanide 2 mg tablet 1 mg PO DAILY 09/03/23 09/23/23 History carvedilol 12.5 mg tablet 12.5 mg PO DAILY 09/03/23 09/23/23 History clopidogrel 75 mg tablet 75 mg PO DAILY 09/03/23 09/23/23 History gabapentin 600 mg tablet 600 mg PO QID 09/03/23 09/23/23 History glimepiride 4 mg tablet 4 mg PO DAILY 09/03/23 09/23/23 History lisinopril 20 2 tab PO BID 09/03/23 09/23/23 History mg-hydrochlorothiazide 12.5 mg tablet omeprazole 40 mg capsule,delayed 40 mg PO DAILY 09/03/23 09/23/23 History release oxycodone-acetaminophen 10 mg-325 1 tab PO QIDP PRN Moderate Pain 09/03/23 09/23/23 History mg tablet (Scale Score 5-6) sitagliptin phosphate 100 mg 100 mg PO DAILY 09/03/23 09/23/23 History tablet (Januvia) metformin 500 mg tablet,extended 1,000 mg PO BID 09/23/23 09/23/23 History release 24 hr New Prescriptions to Start Prescriptions: Allergies Allergy/AdvReac Type Severity Reaction Status Date / Time dobutamine AdvReac Unknown Hypertensio Verified 07/30/23 11:23 n Assessment and Plan *Assessment and plan (1) Acute kidney injury: Status: Acute Category: Medical Code(s): N17.9 - Acute kidney failure, unspecified (2) HFrEF (heart failure with reduced ejection fraction): Status: Acute Category: Medical Code(s): I50.20 - Unspecified systolic (congestive) heart failure (3) Coronary artery disease: Status: Chronic Qualifiers: Associated angina: without angina Coronary Disease-Associated Artery/Lesion type: [place] artery [place] vs. transplanted heart: [place] heart Qualified Code(s): I25.10 - Atherosclerotic heart disease of [place] coronary artery without angina pectoris Category: Medical Code(s): I25.10 - Atherosclerotic heart disease of [place] coronary artery without angina pectoris Plan Acute on Chronic HFrEF s/p AICD Echo 01/2023-EF 40-45 LE edema present Chest x-ray today shows cardiomegaly with pulmonary vascular congestion Echocardiogram is pending Start Bumex drip for diuresis Hold kory due to gita and need for aggresive diuretics. Hold BB until repeat echo. consider addition of jardiance and aldactone later. Coronary artery disease Status post CABG Troponin is negative EKG is is negative for acute ischemic changes Patient had medical management heart cath 08/04/2022 Denies chest pain Continue Plavix 75 mg p.o. daily and atorvastatin 40 mg p.o. daily. Will hold beta-rodrigo at this time until echocardiogram is read. Hypertension Well-controlled Acute kidney injury Creatinine 1.9, BUN 50 Hold KORY due to GITA CV summary 09/23/2023: Patient appears to be volume overloaded, will start patient on Bumex drip for diuresis. Repeat labs this evening to recheck kidney function. Echocardiogram is pending.
--- NOTE | 2023-09-23 14:49 | PC.NURSE ---
Su called from [place] office and advised they she had put a lipid panel in and asked us to check with Lab. Called Lab and they said they would add it in from the blood they collected from the pt in the ER
--- NOTE | 2023-09-23 14:56 | PC.NURSE ---
arrived by w/c from ED
[2023-09-23 15:06] LABS: Chol/HDL Ratio 3.4 (1-3.5); Cholesterol 103 mg/dl (140-200); HDL Cholesterol 30 mg/dl (40-60); Triglycerides 91 mg/dl (30-150); VLDL Cholesterol 18 mg/dL (0-40)
[2023-09-23] MEDS: BUMETANIDE 10 MG in 0.9 % SODIUM CHLORIDE 60 ML IV (16:19)
[2023-09-23 16:38] LABS: Ammonia < 9 umol/L (9-30)
[2023-09-23 16:48] LABS: Troponin I 0.02 ng/ml (0.00-0.034)
[2023-09-23 17:01] LABS: POC Glucose,Bedside 175 (70-110)
[2023-09-23 17:26] LABS: Reflex Lactic Add Lactic Reflex
[2023-09-23 18:37] LABS: NT Pro Brain Natriuretic Pep. 53400 pg/mL (0-125)
[2023-09-23 18:37] LABS: Lactic Acid Follow Up (RFLX 1) 2.6 mmol/L (0.7-2.1)
[2023-09-23 18:43] LABS: Troponin I 0.02 ng/ml (0.00-0.034)
[2023-09-23 20:18] LABS: Reflex Lactic (2 hrs) Add Lactic Reflex
[2023-09-23 20:32] LABS: Chloride 93 mmol/L (98-107); Sodium 133 mmol/L (136-145)
[2023-09-23 20:35] LABS: Blood Urea Nitrogen 53 mg/dl (9-20); Calcium 8.8 mg/dl (8.4-10.2); Carbon Dioxide 32 mmol/L (22.0-30.0); Creatinine Clearance Estimated 58 mL/min (50-200); Estimated Glomerular Filt Rate 34 ml/min (>60); GFR (African American) 41 ML/MIN (>60); Glucose 241 mg/dl (74-100)
[2023-09-23] MEDS: HEPARIN SODIUM 5,000 UNIT/ML VIAL 5000 UNIT SQ (20:37)
[2023-09-23] MEDS: humaLOG 100 UNITS/ML 3ML VIAL (SSI) SQ (20:37)
[2023-09-23] MEDS: GABAPENTIN 300MG CAPSULE 300 MG PO (20:37)
[2023-09-23] MEDS: PANTOPRAZOLE 40MG TABLET 40 MG PO (20:38)
[2023-09-23 22:02] LABS: Lactic Acid Follow up (RFLX 2) 1.8 mmol/L (0.7-2.1)
[2023-09-23 22:29] LABS: POC Glucose,Bedside 262 (70-110)
[2023-09-24] VITALS (36 sets, daily range): BP systolic 78–153; BP diastolic 42–89; PULSE 63–81; RESP 18–24; TEMP 36.2–37.2; O2SAT 86–100; BMI 34.7
[2023-09-24] MEDS: OXYCODONE 10MG W/APAP 325MG TABLET 1 EACH PO (00:41)
--- NOTE | 2023-09-24 05:44 | PC.NURSE ---
pt has been awake all night, extremely restless. encouraging pt to lay in bed and elevate extremities r/t +4 pitting edema to bilateral lower extremity. pt increasingly confused taking off nasal cannula and pulled out iv and cant remember doing these things. voiced concerns to isela patton who came to room and assessed pt. spouse reports he has frequent imsomnia at home and has restless nights similar to this at home and has been getting increasingly forgetful. pt reports chronic pain to [facility] lower abdomen. pt will sit on edge of bed and nod off and slump forward. concerns expresed to patient that he needs to lay down in bed so he dont fall in floor. pt was laying in bed and activated bed alarm. pt visibly upset that alarm was set. placed pull alarm on pt since he sits on the edge of bed. notified tooling inspector that despite having bumex drip infusing pt has only voided 250 ml of urine.
[2023-09-24 06:24] LABS: Alanine Aminotransferase 16 U/L (12-78); Albumin Level 3.7 g/dl (3.5-5.0); Albumin/Globulin Ratio 1.3 (1.1-1.8); Alkaline Phosphatase 88 U/L (38-126); Anion Gap 16.2 mEq/L (5-15); Aspartate Amino Transferase 21 U/L (17-59); Basophils # 0.1 K/mm3 (0-0.2); Bilirubin,Total 0.9 mg/dl (0.2-1.3); Blood Urea Nitrogen 60 mg/dl (9-20); Calcium 8.7 mg/dl (8.4-10.2); Carbon Dioxide 31 mmol/L (22.0-30.0); Chloride 93 mmol/L (98-107); Creatinine Clearance Estimated 57 mL/min (50-200); Eosinophils # 0.1 K/mm3 (0.0-0.4); Eosinophils % 1.4 % (0.1-12.0); Estimated Glomerular Filt Rate 32 ml/min (>60); GFR (African American) 39 ML/MIN (>60); Globulin 2.9 g/dL (1.3-3.2); Glucose 202 mg/dl (74-100); Hematocrit 38.6 % (42.0-52.0); Hemoglobin 11.2 g/dL (14.1-18.0); Lymphocytes # 1.6 K/mm3 (0.7-4.5); Lymphocytes % 28.4 % (10-50); Magnesium 1.4 mg/dl (1.6-2.3); Mean Corpuscular HGB Conc 29.1 g/dL (31.8-35.4); Mean Corpuscular Hemoglobin 23.4 pg (27.0-31.2); Mean Corpuscular Volume 80.5 fl (80-94); Mean Platelet Volume 9.6 fl (7.4-10.4); Monocytes # 0.6 K/mm3 (0.1-1.0); Monocytes % 10.5 % (1.7-9.3); Neutrophils # 3.3 K/mm3 (1.8-7.8); Neutrophils % 58.7 % (37.0-80.0); Platelet Count 131 K/mm3 (142-424); Potassium 4.2 mmoL/L (3.5-5.1); Sodium 136 mmol/L (136-145); Total Protein,Serum 6.6 g/dl (6.3-8.2); White Blood Count 5.6 K/mm3 (4.8-10.8)
[2023-09-24] MEDS: BUMETANIDE 10 MG in 0.9 % SODIUM CHLORIDE 60 ML IV (06:46)
[2023-09-24] MEDS: humaLOG 100 UNITS/ML 3ML VIAL (SSI) SQ (06:47)
--- NOTE | 2023-09-24 07:52 | XR_ITS ---
FINAL REPORT CLINICAL HISTORY: soa COMPARISON: 09/23/2023 FINDINGS: A single portable view of the chest was obtained. A left subclavian ICD is present and the patient has had a prior midline sternotomy. Cardiomegaly is once again identified, and the film is somewhat rotated to the patient's right. There is slight bulbous appearing enlargement of the cardiac silhouette when compared to a prior exam of April 2023, and a pericardial effusion cannot be excluded. The mediastinum is within normal limits. No acute pulmonary abnormality is identified. Multiple chronic rib fractures are identified. IMPRESSION: Cardiomegaly, with a slightly rotated film. There is however slight enlargement of the cardiac silhouette when compared to a prior exam of April 2023, and a pericardial effusion cannot be excluded. Reviewed, Interpreted and Dictated by Kirt Escobar III, MD Transcribed by Kelly Vuong Authenticated and [facility]
--- NOTE | 2023-09-24 08:02 | IR_ITS ---
APPROVED REPORT Patient Location: Inpatient PROCEDURES Right heart catheterization Endotracheal intubation INDICATION Cardiogenic shock, Acute respiratory failure Informed consent was obtained prior to the procedure. COMPLICATIONS NONE Estimated Blood Loss: LESS THAN 10 ML TECHNIQUE One percent lidocaine was used to anesthetize the right anterior aspect of the neck. A manager credit collections needle was used to identify the right internal jugular vein. Following this a larger cannulation needle was used to cannulate the right internal jugular vein and a wire was passed into the vein. Prior to the 7 Maltese sheath being inserted the wire was confirmed under fluoroscopic guidance to be in the inferior vena cava. A 7 Maltese sheath was introduced and a Fairplay-Mireille catheter was floated using hemodynamic waveforms in the pulmonary artery, right ventricle , and right atrium. Saturations were obtained in the pulmonary artery and the right atrium. Patient was experiencing respiratory failure on the table which did not respond to BiPAP. Because of this 30 mg of propofol was given and a 7-1/2 ET tube was placed into the trachea. Bilateral lung sounds were obtained. End-tidal CO2 was verified. The endotracheal tube was secured in the place and patient was transferred upstairs for additional care ANGIOGRAPHIC RESULTS Right atrial pressure 30 mmHg Pulmonary pressure 60/40 mmHg Pulmonary artery occlusion pressure 40 mmHg Hemoglobin 11.2 Pulmonary artery saturation and right atrial saturation 22% IMPRESSION Numbers consistent with Cardiogenic shock Successful endotracheal intubation PLAN 1. 1 g of chlorothiazide was given and Bumex drip was doubled to 2 mg/h 2. Consider milrinone for cardiogenic shock 3. Continue supportive care 4. Right IJ sheath left in place for possible repeat right heart catheterization tomorrow Electronically signed by : Devan Oconnell MD 09/24/2023 12:01:24
[2023-09-24] MEDS: HEPARIN 1,000 UNITS/500ML NS (CATH LAB) 3000 UNIT IV (09:48)
[2023-09-24] MEDS: LIDOCAINE 1% 10ML MDV 20 ML IJ (09:48)
[2023-09-24] MEDS: 0.9 % SODIUM CHLORIDE 500 ML 25 ML IV (09:48)
[2023-09-24] MEDS: diphenhydrAMINE 50MG/ML VIAL 50 MG IV (09:49)
[2023-09-24] MEDS: PROPOFOL 10MG/ML 20ML VIAL 30 MG IV (10:26)
[2023-09-24] MEDS: CHLOROTHIAZIDE SODIUM 1,000 MG in 0.9 % SODIUM CHLORIDE 50 ML 100 MG IV (10:26)
[2023-09-24] MEDS: MIDAZOLAM HCL 1MG/1ML 5ML VIAL 1 MG IV (10:44)
[2023-09-24] MEDS: FENTANYL 100MCG/2ML VIAL 50 MCG IV (10:44)
--- NOTE | 2023-09-24 10:57 | XR_ITS ---
FINAL REPORT CLINICAL HISTORY: et tube placement COMPARISON: 09/24/2023 FINDINGS: SINGLE-VIEW CHEST There is cardiomegaly. The patient is status post median sternotomy. Left subclavian ICD is present. There is a new endotracheal tube in the midthoracic trachea. NG tube terminates below the diaphragm. There are mild right base opacities, favor atelectasis. There is no pneumothorax. IMPRESSION: Endotracheal tube tip is in the midthoracic trachea. Mild right base atelectasis. Reviewed, Interpreted and Dictated by Kirt Escobar III, MD Transcribed by Kendy Hall Authenticated and [facility]
[2023-09-24] MEDS: MAGNESIUM SULFATE IN WATER 2 GM/50 ML PIGGYBACK IV (11:00)
[2023-09-24] MEDS: BUMETANIDE 10 MG in 0.9 % SODIUM CHLORIDE 60 ML 20 MG IV ×3 (11:01→21:35)
[2023-09-24 11:22] LABS: ABG Base Excess 2.4 mmol/L (-2.4-2.3); ABG HCO3 28.7 mmhg (22.0-26.0); ABG Oxygen Saturation 99 % (90-100); ABG PH 7.31 mmol/L (7.35-7.45); ABG PO2 144.8 mmhg (80-100); ABG TCO2 30.5 mmhg (23-27)
[2023-09-24 11:23] LABS: Allen's Test Patient Unable; Oxygen 70% %; PEEP 8; Source Right Radial; Tidal Volume 450; Vent Rate 18
[2023-09-24 11:24] LABS: ABG PCO2 58.4 mmhg (35.0-45.0)
[2023-09-24 11:30] LABS: POC Glucose,Bedside 171 (70-110)
[2023-09-24] MEDS: MILRINONE LACTATE 20 MG in 0.9 % SODIUM CHLORIDE 80 ML 4.12 MG IV (11:39)
[2023-09-24] MEDS: propofoL 100 ML 16.48 MG IV (11:42)
--- NOTE | 2023-09-24 11:47 | P.CONS_ITS ---
History of Present Illness History of present illness: Much of the history is obtained from chart review. Mr. Vargas is a 63-year-old female with a history of heart failure with reduced ejection fraction hypertension dyslipidemia ANNA diabetes presents with worsening respiratory distress bilateral worsening lower extremity swelling worsening renal function admitted and being managed for acute congestive heart failure exacerbation with diuretics went for an elective right heart catheterization today noted to have mostly respiratory distress and apnea. She needing intubation mechanical ventilatory support and pulmonary was called for further evaluation and management. [facility] Disclaimer: The information contained in this section may have been updated after the patient was seen, as this information can be updated by other users. Medical History (Updated 09/24/23 @ 11:48 by Ana Askew MD) Pneumonia On mechanically assisted ventilation Acute respiratory failure with hypoxia Abdominal pain Constipation Deviated nasal septum Hypertrophy of inferior nasal turbinate Sinusitis Mixed restrictive and obstructive lung disease Cardiac pacemaker in situ Pulmonary emphysema Smoking greater than 30 pack years Dyspnea on exertion Lung mass Nodule of right lung Bilateral chronic serous otitis media Right maxillary sinusitis HFrEF (heart failure with reduced ejection fraction) Impacted cerumen of right ear Dizziness Abnormal electrocardiogram [ECG] [EKG] ANNA (obstructive sleep apnea) Hyperlipidemia Depression Anxiety Gastroesophageal reflux disease Insomnia Coronary artery disease History of TIA (transient ischemic attack) Hypertension Diabetes mellitus Epididymitis Palpitations Opiate withdrawal TIA (transient ischemic attack) Surgical History History of removal of testicle History of hernia surgery History of cholecystectomy History of right mastoidectomy History of coronary artery bypass graft Family History Other Diabetes Social History (Updated 09/23/23 @ 15:59 by Clara Soto RN) Smoking Status: Current every day smoker tobacco type: cigarettes packs per day: 1 alcohol intake: never substance use type: denies use current occupational status: disabled Travel in the last 8 weeks: None household members: spouse and children housing: house Review of Systems Review of Systems Review of systems:: unable to obtain Pulmonology Exam Inpatient Vital signs and Labs for Last 24 Hours: Temp Pulse Resp BP Pulse Ox O2 Del Method O2 Flow Rate 97.5 F L 76 20 123/63 95 Nasal Cannula 2 09/24/23 07:45 09/24/23 09:03 09/24/23 09:03 09/24/23 09:03 09/24/23 09:03 09/24/23 09:03 09/24/23 09:03 Laboratory Results - last 24 hr 09/23/23 13:07: VBG pH 7.33, VBG pCO2 51.2 H, VBG pO2 33.3, VBG HCO3 26.2, VBG Total CO2 27.8 H, VBG O2 Saturation 57.0, VBG Base Excess 0.2, VBG Lactic Acid 2.9 H 09/23/23 13:13: WBC 5.4, RBC 5.05, Hgb 12.1 L, Hct 40.3 L, MCV 79.8 L, MCH 24.0 L, MCHC 30.1 L, RDW 21.1 H, Plt Count 144, MPV 12.1 H, Neut % (Auto) 75.1, Lymph % (Auto) 17.2, Cotton % (Auto) 6.7, Eos % (Auto) 0.4, Baso % (Auto) 0.6, Neut # (Auto) 4.1, Lymph # (Auto) 0.9, Cotton # (Auto) 0.4, Eos # (Auto) 0.0, Baso # (Auto) 0.0, PT 13.8 H, INR 1.30 H, APTT 27.6, Sodium 134 L, Potassium 3.5, C hloride 93 L, Carbon Dioxide 31 H, Anion Gap 13.5, BUN 50 H, Creatinine 1.90 H, Estimated Creat Clear 57, Estimated GFR 36 L, Est GFR ( Amer) 44 L, G lucose 201 H, Hemoglobin A1c 8.0 H, Calcium 9.1, Total Bilirubin 1.2, AST 25, ALT 20, Alkaline Phosphatase 95, Troponin I 0.02, NT-Pro-B Natriuret Pep 18889 H , Total Protein 7.0, Albumin 3.8, Globulin 3.2, Albumin/Globulin Ratio 1.2, Triglycerides 91, Cholesterol 103 L, LDL Cholesterol Direct 64.40 L, VLDL Cholesterol 18, HDL Cholesterol 30 L, Cholesterol/HDL Ratio 3.4 09/23/23 16:09: Ammonia < 9 L, Troponin I 0.02 09/23/23 16:53: POC Glucose 175 H 09/23/23 18:13: Lactate 2.6 H, Troponin I 0.02 09/23/23 20:15: Sodium 133 L, Potassium 4.0, Chloride 93 L, Carbon Dioxide 32 H, Anion Gap 12.0, BUN 53 H, Creatinine 2.00 H, Estimated Creat Clear 58, E stimated GFR 34 L, Est GFR ( Amer) 41 L, Glucose 241 H, Calcium 8.8 09/23/23 20:25: POC Glucose 262 H 09/23/23 21:25: Lactate 1.8 09/24/23 05:57: WBC 5.6, RBC 4.80, Hgb 11.2 L, Hct 38.6 L, MCV 80.5, MCH 23.4 L, MCHC 29.1 L, RDW 21.0 H, Plt Count 131 L, MPV 9.6, Neut % (Auto) 58.7, Lymph % (Auto) 28.4, Cotton % (Auto) 10.5 H, Eos % (Auto) 1.4, Baso % (Auto) 1.0, Neut # (Auto) 3.3, Lymph # (Auto) 1.6, Cotton # (Auto) 0.6, Eos # (Auto) 0.1, Baso # (Auto) 0.1, Sodium 136, Potassium 4.2, Chloride 93 L, Carbon Dioxide 31 H, Anion Gap 16.2 H, BUN 60 H, Creatinine 2.10 H, Estimated Creat Clear 57, Estimated GFR 32 L, Est GFR ( Amer) 39 L, Glucose 202 H, Calcium 8.7, Magnesium 1.4 L, Total Bilirubin 0.9, AST 21, ALT 16, Alkaline Phosphatase 88, Total Protein 6.6, Albumin 3.7, Globulin 2.9, Albumin/Globulin Ratio 1.3 09/24/23 10:54: POC Glucose 171 H 09/24/23 11:19: Specimen Source Right radial, O2 % 70%, ABG pH 7.31 L, ABG pCO2 58.4 H, ABG pO2 144.8 H, ABG HCO3 28.7 H, ABG Total CO2 30.5 H, ABG O2 Saturation 99, ABG Base Excess 2.4 H, Ronnie Test Patient unable, Vent Rate 18, Tidal Volume 450, PEEP 8 I & O for Labs for Last 24 Hours: Intake & Output 0509/22/23 09/23/23 09/24/23 23:59 23:59 23:59 23:59 Intake Total 135 / 135 100 / 100 Output Total 625 / 625 50 / 50 Balance -490 / -490 50 / 50 Weight 234 lb 8 oz 242 lb 4 oz Constitutional: Present severe distress Comment:: Intubated and Sedated Head: Present normocephalic and atraumatic Neck: Present normal inspection and trachea midline Respiratory: Present patient mechanically ventilated, respiratory distress and crackles; Absent rhonchi or wheezes Cardiac: Present S1/S2 and Tachycardia GI: Present soft; Absent distention or tenderness Skin: Present wounds; Absent intact or cyanosis Neuro: Absent alert, awake or oriented x 3 Comment:: Intubated and sedated Extremities: Present edema; Absent normal inspection, clubbing or cyanosis Psychiatric: Present unable to assess Meds Home Medications and Allergies Home Medications Medication Instructions Recorded Confirmed Type atorvastatin 40 mg tablet 40 mg PO DAILY 09/03/23 09/23/23 History bumetanide 2 mg tablet 1 mg PO DAILY 09/03/23 09/23/23 History carvedilol 12.5 mg tablet 12.5 mg PO DAILY 09/03/23 09/23/23 History clopidogrel 75 mg tablet 75 mg PO DAILY 09/03/23 09/23/23 History gabapentin 600 mg tablet 600 mg PO QID 09/03/23 09/23/23 History glimepiride 4 mg tablet 4 mg PO DAILY 09/03/23 09/23/23 History lisinopril 20 2 tab PO BID 09/03/23 09/23/23 History mg-hydrochlorothiazide 12.5 mg tablet omeprazole 40 mg capsule,delayed 40 mg PO DAILY 09/03/23 09/23/23 History release oxycodone-acetaminophen 10 mg-325 1 tab PO QIDP PRN Moderate Pain 09/03/23 09/23/23 History mg tablet (Scale Score 5-6) sitagliptin phosphate 100 mg 100 mg PO DAILY 09/03/23 09/23/23 History tablet (Januvia) metformin 500 mg tablet,extended 1,000 mg PO BID 09/23/23 09/23/23 History release 24 hr New Prescriptions to Start Prescriptions: Allergies Allergy/AdvReac Type Severity Reaction Status Date / Time dobutamine AdvReac Unknown Hypertensio Verified 07/30/23 11:23 n Results Laboratory Findings 09/24/23 05:57 09/24/23 05:57 ABG ABG pH 7.31 mmol/L (7.35-7.45) L 09/24/23 11:19 ABG pCO2 58.4 mmhg (35.0-45.0) H 09/24/23 11:19 ABG pO2 144.8 mmhg (80-100) H 09/24/23 11:19 ABG O2 Saturation 99 % (90-100) 09/24/23 11:19 PT/INR, D-dimer PT 13.8 seconds (10.1-12.5) H 09/23/23 13:13 INR 1.30 (0.9-1.1) H 09/23/23 13:13 Abnormal lab findings: Abnormal Labs 09/23/23 09/23/23 09/23/23 13:07 13:13 16:09 Hgb 12.1 L Hct 40.3 L MCV 79.8 L MCH 24.0 L MCHC 30.1 L RDW 21.1 H Plt Count MPV 12.1 H Cotton % (Auto) PT 13.8 H INR 1.30 H ABG pH ABG pCO2 ABG pO2 ABG HCO3 ABG Total CO2 ABG Base Excess VBG pCO2 51.2 H VBG Total CO2 27.8 H VBG Lactic Acid 2.9 H Sodium 134 L Chloride 93 L Carbon Dioxide 31 H Anion Gap BUN 50 H Creatinine 1.90 H Estimated GFR 36 L Est GFR ( Amer) 44 L Glucose 201 H POC Glucose Hemoglobin A1c 8.0 H Lactate Magnesium Ammonia < 9 L NT-Pro-B Natriuret Pep 64108 H Cholesterol 103 L LDL Cholesterol Direct 64.40 L HDL Cholesterol 30 L 09/23/23 09/23/23 09/23/23 16:53 18:13 20:15 Hgb Hct MCV MCH MCHC RDW Plt Count MPV Cotton % (Auto) PT INR ABG pH ABG pCO2 ABG pO2 ABG HCO3 ABG Total CO2 ABG Base Excess VBG pCO2 VBG Total CO2 VBG Lactic Acid Sodium 133 L Chloride 93 L Carbon Dioxide 32 H Anion Gap BUN 53 H Creatinine 2.00 H Estimated GFR 34 L Est GFR ( Amer) 41 L Glucose 241 H POC Glucose 175 H Hemoglobin A1c Lactate 2.6 H Magnesium Ammonia NT-Pro-B Natriuret Pep Cholesterol LDL Cholesterol Direct HDL Cholesterol 09/23/23 09/24/23 09/24/23 20:25 05:57 10:54 Hgb 11.2 L Hct 38.6 L MCV MCH 23.4 L MCHC 29.1 L RDW 21.0 H Plt Count 131 L MPV Cotton % (Auto) 10.5 H PT INR ABG pH ABG pCO2 ABG pO2 ABG HCO3 ABG Total CO2 ABG Base Excess VBG pCO2 VBG Total CO2 VBG Lactic Acid Sodium Chloride 93 L Carbon Dioxide 31 H Anion Gap 16.2 H BUN 60 H Creatinine 2.10 H Estimated GFR 32 L Est GFR ( Amer) 39 L Glucose 202 H POC Glucose 262 H 171 H Hemoglobin A1c Lactate Magnesium 1.4 L Ammonia NT-Pro-B Natriuret Pep Cholesterol LDL Cholesterol Direct HDL Cholesterol 09/24/23 11:19 Hgb Hct MCV MCH MCHC RDW Plt Count MPV Cotton % (Auto) PT INR ABG pH 7.31 L ABG pCO2 58.4 H ABG pO2 144.8 H ABG HCO3 28.7 H ABG Total CO2 30.5 H ABG Base Excess 2.4 H VBG pCO2 VBG Total CO2 VBG Lactic Acid Sodium Chloride Carbon Dioxide Anion Gap BUN Creatinine Estimated GFR Est GFR ( Amer) Glucose POC Glucose Hemoglobin A1c Lactate Magnesium Ammonia NT-Pro-B Natriuret Pep Cholesterol LDL Cholesterol Direct HDL Cholesterol Assessment and Plan *Assessment and plan (1) Acute respiratory failure with hypoxia: Status: Acute Category: Medical Code(s): J96.01 - Acute respiratory failure with hypoxia (2) On mechanically assisted ventilation: Status: Acute Category: Medical Code(s): Z99.11 - Dependence on respirator [ventilator] status (3) Pneumonia: Status: Acute Category: Medical Code(s): J18.9 - Pneumonia, unspecified organism Plan Much of the history is obtained from chart review. Mr. Vargas is a 63-year-old female with a history of heart failure with reduced ejection fraction hypertension dyslipidemia ANNA diabetes presents with worsening respiratory distress bilateral worsening lower extremity swelling worsening renal function admitted and being managed for acute congestive heart failure exacerbation with diuretics went for an elective right heart catheterization today noted to have mostly respiratory distress and apnea. She needing intubation mechanical ventilatory support and pulmonary was called for further evaluation and management. Auscultation no significant wheezing noted. CT chest very minimal emphysematous changes. PFTs from 2020 did not show any obvious evidence of obstructive lung disease. Concerning for mild restriction. Chest x-ray postintubation reviewed, ET tube in place. Concerning new left upper lobe infiltrate. Cardiomegaly noted. ABG from admission hypercarbic respiratory failure lab abnormalities including worsening BUN/creatinine along with Hypomagnesemia. Currently minimal ventilator settings, ABG performed on 70% FiO2 did not show any evidence of hypoxic respiratory failure. Showed evidence of hypercarbic respiratory failure. Plan: Propofol and fentanyl for sedation. Continue mechanical ventilatory settings and PEEP of 8, FiO2 of40% tidal volume of 50 and a rate of 20. Follow-up ABG in 4 hours Initiate ceftriaxone and doxycycline pending tracheal aspirate culture results DuoNebs every 6 hours on a scheduled basis Shock likely cardiogenic in the setting CHF exacerbation, MV and sedative medications. Cardiology following. On Milrinone and Bumex drip. # Thank you for involving pulmonary in this patient care. Will continue to follow.
[2023-09-24] MEDS: FENTANYL CITRATE/PF 1,000 MCG in 0.9 % SODIUM CHLORIDE 80 ML 2.5 MCG IV (12:07)
[2023-09-24] MEDS: CEFTRIAXONE SODIUM 1 GM in 0.9 % SODIUM CHLORIDE 50 ML IV (12:32)
[2023-09-24] MEDS: propofoL 100 ML 19.78 MG IV (12:39)
[2023-09-24] MEDS: AMIODARONE HCL 150 MG in DEXTROSE 5 % IN WATER 100 ML 618 MG IV (13:14)
[2023-09-24] MEDS: AMIODARONE HCL 900 MG in DEXTROSE 5 % IN WATER 500 ML 34.53 MG IV (13:30)
--- NOTE | 2023-09-24 13:40 | HMH.PTWOUND ---
Rehab Inpt Wound Evaluation Rehab IP Wound Evaluation Start: 09/24/23 07:00 Freq: ONCE Status: Active Protocol: Document 09/24/23 13:35 PHORNE (Rec: 09/24/23 13:40 PHORNE Laptop) Rehab PT Wound Assessment Subjective Subjective 63 yowm adm to [facility] with CHF and GITA. He has PMH of heart failure with reduced ejection fraction, history of CABG, hypertension, hyperlipidemia, ANNA, diabetes. He presents with R medial simons wounds upon admission that have been present for 1-2 weeks. He is currently intubated and sedated. Wound Right Medial Simons Wound Type Stasis Ulcer Is This a Chronic Wound Yes Wound Length (cm) 1.5 Wound Width (cm) 1.5 Wound Depth (cm) 0.1 Wound Bed Appearance [place] Wound Margins Description Well Defined Surrounding Tissue Appearance Bright Red Edema Type Pitting Edema Degree 1+ Query Text:1+ Trace, Barely Detectable, Rebound 15-30 seconds 2+ Moderate, Slight Indentation, Rebound 10-20 seconds 3+ Deep, Deeper Indentation, Rebound > 30 seconds 4+ Very Deep, Rebound > 60 seconds Edema Appearance Puffy Wound Drainage Description Serous Drainage Amount Small Wound Topical Solution/Irrigant Saline Irrigant Primary Dressing Non-Adherent Gauze Pad Wound Secondary Dressing Type Gauze Roll/Wrap Wound Debridement Method Gauze,Mechanical Wound Debridement Amount of Tissue None Removed Dressing Change Patient Tolerance Tolerated Well Plan/Recommendation Comment Wounds appear healthy at this time and no current need for sharp selective debridement noted. Dressings changed every 1-2 days as needed depending on drainage. Eval Complexity Eval Charge Codes 74284 - High Complexity PHYSICIAN CERTIFICATION: I certify the specified therapy services for Cristobal Vargas are required, authorized, and reviewed every 30 days.
[2023-09-24 15:15] LABS: CATHL Arterial O2 SAT 22.7 % (90-100); CATHL Venous O2 SAT 8.7 % (75-80)
--- NOTE | 2023-09-24 15:20 | EXP.CARD.PN ---
Subjective Subjective Date: 09/24/23 Time: 07:45 Principal diagnosis: volume overload Interval history: Patient found this morning slumped over in bed, complaining of worsening shortness of breath, skin was slightly mottled. Patient was slightly confused. Lower extremity edema unchanged. Decreased urine output noted throughout the evening despite Bumex drip. Morning labs reviewed and creatinine up to 2.1. Patient became more alert with myself and nursing staff at bedside. Patient was hypertensive with a blood pressure of 153/89. Sats 92% on nasal cannula. Patient was moved to stepdown ICU and was prepared to undergo right heart catheterization. Please see note below: Right heart catheterization 09/24/2023: ANGIOGRAPHIC RESULTS Right atrial pressure 30 mmHg Pulmonary pressure 60/40 mmHg Pulmonary artery occlusion pressure 40 mmHg Hemoglobin 11.2 Pulmonary artery saturation and right atrial saturation 22% IMPRESSION Numbers consistent with Cardiogenic shock Successful endotracheal intubation PLAN 1. 1 g of chlorothiazide was given and Bumex drip was doubled to 2 mg/h 2. Consider milrinone for cardiogenic shock 3. Continue supportive care 4. Right IJ sheath left in place for possible repeat right heart catheterization tomorrow Exam Data for Last 24 hours Vital signs and Labs for Last 24 Hours: Temp Pulse Resp BP Pulse Ox O2 Del Method O2 Flow Rate 97.2 F L 64 22 104/62 L 100 Mechanical Ventilation 2 09/24/23 10:49 09/24/23 15:00 09/24/23 15:00 09/24/23 15:00 09/24/23 15:00 09/24/23 15:00 09/24/23 09:03 FiO2 35 09/24/23 13:29 Laboratory Results - last 24 hr 09/23/23 13:13: Hemoglobin A1c 8.0 H, NT-Pro-B Natriuret Pep 44793 H, LDL Cholesterol Direct 64.40 L 09/23/23 16:09: Ammonia < 9 L, Troponin I 0.02 09/23/23 16:53: POC Glucose 175 H 09/23/23 18:13: Lactate 2.6 H, Troponin I 0.02 09/23/23 20:15: Sodium 133 L, Potassium 4.0, Chloride 93 L, Carbon Dioxide 32 H, Anion Gap 12.0, BUN 53 H, Creatinine 2.00 H, Estimated Creat Clear 58, Estimated GFR 34 L, Est GFR ( Amer) 41 L, Glucose 241 H, Calcium 8.8 09/23/23 20:25: POC Glucose 262 H 09/23/23 21:25: Lactate 1.8 09/24/23 05:57: WBC 5.6, RBC 4.80, Hgb 11.2 L, Hct 38.6 L, MCV 80.5, MCH 23.4 L, MCHC 29.1 L, RDW 21.0 H, Plt Count 131 L, MPV 9.6, Neut % (Auto) 58.7, Lymph % (Auto) 28.4, [place] % (Auto) 10.5 H, Eos % (Auto) 1.4, Baso % (Auto) 1.0, Neut # (Auto) 3.3, Lymph # (Auto) 1.6, [place] # (Auto) 0.6, Eos # (Auto) 0.1, Baso # (Auto) 0.1, Sodium 136, Potassium 4.2, Chloride 93 L, Carbon Dioxide 31 H, Anion Gap 16.2 H, BUN 60 H, Creatinine 2.10 H, Estimated Creat Clear 57, Estimated GFR 32 L, Est GFR ( Amer) 39 L, Glucose 202 H, Calcium 8.7, Magnesium 1.4 L, Total Bilirubin 0.9, AST 21, ALT 16, Alkaline Phosphatase 88, Total Protein 6.6, Albumin 3.7, Globulin 2.9, Albumin/Globulin Ratio 1.3 09/24/23 10:02: ABG O2 Sat (Measured) 22.7 L, POC VBG O2 Sat ([place]) 8.7 L 09/24/23 10:54: POC Glucose 171 H 09/24/23 11:19: Specimen Source Right radial, O2 % 70%, ABG pH 7.31 L, ABG pCO2 58.4 H, ABG pO2 144.8 H, ABG HCO3 28.7 H, ABG Total CO2 30.5 H, ABG O2 Saturation 99, ABG Base Excess 2.4 H, Ronnie Test Patient unable, Vent Rate 18, Tidal Volume 450, PEEP 8 I & O for Last 24 hours: Intake & Output 09/21/23 09/22/23 09/23/23 09/24/23 23:59 23:59 23:59 23:59 Intake Total 135 / 135 133.551 / 133.551 Output Total 625 / 625 50 / 50 Balance -490 / -490 83.551 / 83.551 Weight 234 lb 8 oz 242 lb 4 oz Constitutional Constitutional: mild distress, morbidly obese and chronically ill appearing *Routine Respiratory Exam Respiratory: Present accessory muscle use, rhonchi and wheezes *Routine Cardiovascular Exam Cardiovascular: Present RRR, Normal S1 and Normal S2 *Routine Extremities Exam Comments: Edema Progress Note: A&P Assessment and plan (1) Acute respiratory failure with hypoxia: Status: Acute (2) On mechanically assisted ventilation: Status: Acute (3) Pneumonia: Status: Acute Assessment and Plan Assessment and Plan for All Diagnoses:: Acute on Chronic HFrEF s/p AICD Cardiogenic shock Nonsustained VT Acute hypoxic respiratory failure requiring intubation Echo 01/2023-EF 40-45. Repeat echo 09/2023: Mild LV dilation with severe reduction in LV systolic function 10%, markedly increased LV wall thickness, grade 2 diastolic dysfunction, severe RV dilation with severe reduction in RV function. Biatrial dilation. Mild AI. Moderate TR. Elevated RVSP 50 to 55%. 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 daily and atorvastatin 40 mg p.o. daily. Acute kidney injury Creatinine 1.9, BUN 50 on admission, elevated to 2.10 today CV summary 09/24/2023: Patient remains critically ill, intubated and sedated. Ejection fraction is 10%. Patient needs to remain on Bumex drip at 2 mg an hour as well as milrinone and amiodarone. Patient should not be given beta-blockers. Strict I's and O's.
[2023-09-24] MEDS: DOXYCYCLINE HYCLATE 100 MG in 0.9 % SODIUM CHLORIDE 250 ML 166.667 MG IV ×2 (15:22→22:05)
[2023-09-24] MEDS: propofoL 100 ML 26.37 MG IV ×3 (15:39→23:31)
[2023-09-24 16:51] LABS: POC Glucose,Bedside 106 (70-110)
--- NOTE | 2023-09-24 17:13 | PC.NURSE ---
Patient tolerating sedation, prop 40, fent 50. Vent settings fio2 35 tidal volume 450 peep 8. Turn q2. IJ site no hematoma. Lungs clear.
[2023-09-24] MEDS: IPRATROPIUM/ALBUTEROL 3 ML NEB IH ×2 (18:56→23:19)
--- NOTE | 2023-09-24 19:44 | P.PN_ITS ---
Subjective *Date: 09/24/23 *Time: 22:54 Interval history: Patient had poor response to diuresis overnight. Less than 500 cc of output. Decision made to go for heart cath this morning. During heart cath, patient decompensated necessitating intubation. Found to be in cardiogenic shock. Return to floor on mechanical ventilation. Hypotensive, initiated on milrinone drip. Escalated to ICU level care. updated on status and prognosis. Patient received chlorothiazide and Bumex drip was increased. Has had improved response to diuresis since adjustment in diuretic regimen. Patient remains afebrile. Medical Exam Vital signs and Labs for Last 24 Hours: Vital Signs Temp Pulse Pulse Resp BP BP Pulse Ox 09/24/23 19:05 81 09/24/23 19:05 77 09/24/23 19:05 100 09/24/23 19:05 22 100 09/24/23 18:56 09/24/23 18:00 71 22 116/59 L 100 09/24/23 17:00 74 22 110/60 100 09/24/23 17:00 09/24/23 16:00 75 09/24/23 16:00 97.9 F 71 22 130/63 100 09/24/23 16:00 09/24/23 15:00 09/24/23 15:00 64 22 104/62 L 100 09/24/23 14:45 64 22 115/52 L 100 09/24/23 14:30 74 22 99/62 L 100 09/24/23 14:15 76 22 109/68 L 100 09/24/23 14:00 68 22 111/59 L 100 09/24/23 13:30 77 22 97/55 L 100 09/24/23 13:29 22 100 09/24/23 13:15 65 22 101/62 L 100 09/24/23 13:00 67 24 125/59 L 86 L 09/24/23 13:00 09/24/23 12:45 66 22 115/64 100 09/24/23 12:30 65 22 121/69 100 09/24/23 12:15 67 22 108/63 L 100 09/24/23 12:00 67 22 95/61 L 100 09/24/23 12:00 70 09/24/23 12:00 09/24/23 11:30 66 22 89/49 L 100 09/24/23 11:30 22 100 09/24/23 11:19 78/42 L 09/24/23 11:15 70 22 78/43 L 09/24/23 11:00 63 22 86/52 L 100 09/24/23 10:50 64 09/24/23 10:50 64 09/24/23 10:50 18 100 09/24/23 10:49 97.2 F L 68 22 84/46 L 100 09/24/23 10:49 09/24/23 09:03 76 20 123/63 95 09/24/23 09:00 09/24/23 08:15 09/24/23 07:45 97.5 F L 70 22 153/89 H 92 L 09/24/23 07:00 09/24/23 05:00 09/24/23 04:00 97.4 F L 72 18 92/64 L 93 L 09/24/23 03:00 09/24/23 01:12 97 09/24/23 01:00 09/24/23 00:30 68 20 105/57 L 87 L 09/23/23 23:00 09/23/23 21:00 09/23/23 20:48 09/23/23 20:00 97.9 F 71 20 101/64 L 93 L O2 Del Method O2 Flow Rate FiO2 09/24/23 19:05 09/24/23 19:05 09/24/23 19:05 Mechanical Ventilation 35 09/24/23 19:05 35 09/24/23 18:56 Mechanical Ventilation 09/24/23 18:00 Mechanical Ventilation 09/24/23 17:00 Mechanical Ventilation 09/24/23 17:00 Mechanical Ventilation 09/24/23 16:00 09/24/23 16:00 Mechanical Ventilation 09/24/23 16:00 Mechanical Ventilation 09/24/23 15:00 Mechanical Ventilation 09/24/23 15:00 Mechanical Ventilation 09/24/23 14:45 Mechanical Ventilation 09/24/23 14:30 Mechanical Ventilation 09/24/23 14:15 Mechanical Ventilation 09/24/23 14:00 09/24/23 13:30 Mechanical Ventilation 09/24/23 13:29 35 09/24/23 13:15 Mechanical Ventilation 09/24/23 13:00 Mechanical Ventilation 09/24/23 13:00 Mechanical Ventilation 09/24/23 12:45 Mechanical Ventilation 09/24/23 12:30 Mechanical Ventilation 09/24/23 12:15 Mechanical Ventilation 09/24/23 12:00 Mechanical Ventilation 09/24/23 12:00 09/24/23 12:00 Mechanical Ventilation 50 09/24/23 11:30 Mechanical Ventilation 09/24/23 11:30 35 09/24/23 11:19 Mechanical Ventilation 09/24/23 11:15 Mechanical Ventilation 09/24/23 11:00 Mechanical Ventilation 09/24/23 10:50 09/24/23 10:50 09/24/23 10:50 100 09/24/23 10:49 Mechanical Ventilation 09/24/23 10:49 Mechanical Ventilation 09/24/23 09:03 Nasal Cannula 2 09/24/23 09:00 Nasal Cannula 2 09/24/23 08:15 Nasal Cannula 2 09/24/23 07:45 Nasal Cannula 2 09/24/23 07:00 Nasal Cannula 2 09/24/23 05:00 Nasal Cannula 3 09/24/23 04:00 Nasal Cannula 3 09/24/23 03:00 Nasal Cannula 3 09/24/23 01:12 Nasal Cannula 3 09/24/23 01:00 Nasal Cannula 3 09/24/23 00:30 Room Air 09/23/23 23:00 Room Air 09/23/23 21:00 Room Air 09/23/23 20:48 Room Air 09/23/23 20:00 Room Air Intake and Output 09/24/23 09/24/23 09/24/23 07:59 15:59 23:59 Intake Total 100 / 1074.235 253.922 / 1074.235 720.313 / 1074.235 Output Total 50 / 4450 2275 / 4450 2125 / 4450 Balance 50 / -3375.765 -2021.078 / -3375.765 -1404.687 / -3375.765 Intake: Intake, Total IV Amount 100 / 1074.235 253.922 / 1074.235 720.313 / 1074.235 Bumetanide 10 mg In 0.9 % 83 / 153 70 / 153 Sodium Chloride 60 ml @ 10 mls/ hr IV .Q10H [facility] Rx#:[id number] Ceftriaxone Sodium 1 gm In 0.9 50 / 50 % Sodium Chloride 50 ml @ 100 mls/hr IV 0900 [facility] Rx#:[id number] Doxycycline Hyclate 100 mg In 0 250 / 250 .9 % Sodium Chloride 250 ml @ 166.667 mls/hr IV 1100,2300 [facility] Rx#:[id number] Output: Output, Urine Amount 50 / 700 650 / 700 Output, Urine Amount (Catheter) 1625 / 3750 212 / 3750 [place] 1625 / 3750 212 / 375 Other: Number of Unmeasured Voids 0 0 Weight 109.883 kg Patient Weight 09/24/23 23:59 Weight 109.883 kg Laboratory Results - last 24 hr 09/23/23 20:15: Sodium 133 L, Potassium 4.0, Chloride 93 L, Carbon Dioxide 32 H, Anion Gap 12.0, BUN 53 H, Creatinine 2.00 H, Estimated Creat Clear 58, Estimated GFR 34 L, Est GFR ( Amer) 41 L, Glucose 241 H, Calcium 8.8 09/23/23 20:25: POC Glucose 262 H 09/23/23 21:25: Lactate 1.8 09/24/23 05:57: WBC 5.6, RBC 4.80, Hgb 11.2 L, Hct 38.6 L, MCV 80.5, MCH 23.4 L, MCHC 29.1 L, RDW 21.0 H, Plt Count 131 L, MPV 9.6, Neut % (Auto) 58.7, Lymph % (Auto) 28.4, [place] % (Auto) 10.5 H, Eos % (Auto) 1.4, Baso % (Auto) 1.0, Neut # (Auto) 3.3, Lymph # (Auto) 1.6, [place] # (Auto) 0.6, Eos # (Auto) 0.1, Baso # (Auto) 0.1, Sodium 136, Potassium 4.2, Chloride 93 L, Carbon Dioxide 31 H, Anion Gap 16.2 H, BUN 60 H, Creatinine 2.10 H, Estimated Creat Clear 57, Estimated GFR 32 L, Est GFR ( Amer) 39 L, Glucose 202 H, Calcium 8.7, Magnesium 1.4 L, Total Bilirubin 0.9, AST 21, ALT 16, Alkaline Phosphatase 88, Total Protein 6.6, Albumin 3.7, Globulin 2.9, Albumin/Globulin Ratio 1.3 09/24/23 10:02: ABG O2 Sat (Measured) 22.7 L, POC VBG O2 Sat ([place]) 8.7 L 09/24/23 10:54: POC Glucose 171 H 09/24/23 11:19: Specimen Source Right radial, O2 % 70%, ABG pH 7.31 L, ABG pCO2 58.4 H, ABG pO2 144.8 H, ABG HCO3 28.7 H, ABG Total CO2 30.5 H, ABG O2 Saturation 99, ABG Base Excess 2.4 H, Ronnie Test Patient unable, Vent Rate 18, Tidal Volume 450, PEEP 8 09/24/23 16:29: POC Glucose 106 I & O for Labs for Last 24 Hours: Intake & Output 09/21/23 09/22/23 09/23/23 09/24/23 23:59 23:59 23:59 23:59 Intake Total 135 / 135 1074.235 / 1074.235 Output Total 625 / 625 4450 / 4450 Balance -490 / -490 -3375.765 / -3375.765 Weight 106.367 kg 109.883 kg Constitutional: Present moderate distress, chronically ill appearing and obtunded Head: Present atraumatic and normocephalic ENT: Present normal exam Comment:: Right IJ in place Respiratory: Present patient mechanically ventilated and rhonchi Cardiac: Present Reg Rate and Rhythm GI: Present soft and normal bowel sounds; Absent distention or tenderness Comment:: Mendoza in place Extremities: Present normal inspection, full ROM and edema Comment:: 2+ edema to thighs Skin: Present intact; Absent erythema Comment:: Stasis dermatitis of lower extremities with intermittent blisters Comment:: Sedated Assessment and Plan *Assessment and plan (1) Cardiogenic shock: Status: Acute Category: Medical Code(s): R57.0 - Cardiogenic shock (2) Acute on chronic heart failure with reduced ejection fraction and diastolic dysfunction: Status: Acute Category: Medical Code(s): I50.43 - Acute on chronic combined systolic (congestive) and diastolic (congestive) heart failure (3) Acute respiratory failure with hypoxia: Status: Acute Category: Medical Code(s): J96.01 - Acute respiratory failure with hypoxia (4) On mechanically assisted ventilation: Status: Acute Category: Medical Code(s): Z99.11 - Dependence on respirator [ventilator] status (5) Pneumonia: Status: Acute Category: Medical Code(s): J18.9 - Pneumonia, unspecified organism (6) Acute kidney injury: Status: Acute Category: Medical Code(s): N17.9 - Acute kidney failure, unspecified (7) Pulmonary edema with congestive heart failure: Status: Acute Category: Medical Code(s): I50.1 - Left ventricular failure, unspecified (8) Bilateral leg edema: Status: Acute Category: Medical Code(s): R60.0 - Localized edema (9) Tobacco abuse: Status: Chronic Category: Medical Code(s): Z72.0 - Tobacco use (10) Hyperlipidemia: Status: Chronic Qualifiers: Hyperlipidemia type: unspecified Qualified Code(s): E78.5 - Hyperlipidemia, unspecified Category: Medical Code(s): E78.5 - Hyperlipidemia, unspecified (11) History of coronary artery bypass graft: Status: Acute Category: Surgical Code(s): Z95.1 - Presence of aortocoronary bypass graft (12) Depression: Status: Chronic Qualifiers: Active/Remission status: currently active Depression Type: major depressive disorder Major depression episode severity: moderate Major depression recurrence: single episode Qualified Code(s): F32.1 - Major depressive disorder, single episode, moderate Category: Medical Code(s): F32.A - Depression, unspecified (13) Diabetes mellitus: Status: Chronic Qualifiers: Diabetes mellitus complication status: with hyperglycemia 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 Found to have GITA and volume overload. Discussed case with ER physician, request admission for diuresis and further management of kidney injury. Medicine agreed to admit. Initiated on Bumex drip. Had poor response. Taken for right heart cath this morning, decompensated necessitating mechanical ventilation and intubation. Escalated to ICU level care. Pulmonology assisting with ventilator management. Found to be in cardiogenic shock. Initiated on milrinone drip. Continue aggressive diuresis. Continues to require inpatient therapy. Condition critical and unstable, prognosis guarded. Problems addressed as follows: Cardiogenic shock Acute on chronic heart failure with reduced ejection fraction Volume overload -Chest imaging personally reviewed, increased pulmonary congestion. Repeat x- ray obtained today, presence of pulmonary edema. BNP elevated to 53,000 -Discussed case with cardiology, continue Bumex drip at 2 mg/h. Initiate milrinone drip given cardiogenic shock. -Mendoza in place for strict monitoring of output. Putting out between 203 100 cc an hour at this time. Monitoring BMP every 6 hours. -Repeat echo with preliminary read showing reduced ejection fraction approximately 20% -Holding KORY inhibitor, carvedilol. Continue Plavix and statin. -Continuing elbow sedation with fentanyl and propofol. -Elevate head of bed greater than 30 degrees - Initiate ceftriaxone 1 g daily and doxycycline 100 mg twice daily. Sputum culture pending - Pantoprazole 40 mg IV nightly Respiratory failure mechanical ventilation. Pulmonology assisting with management. Maintain O2 sats greater than 90%. GITA -Baseline creatinine approximately 1. Creatinine elevated on morning labs at 2.1, BUN 60. Monitor for improvement with diuresis. - CBC, CMP, magnesium ordered for the morning. -Suspect component of renal congestion and volume overload causing GITA -Caution with nephrotoxins, will renally dose medications Diabetes: A1c obtained, elevated 8, on glimepiride, Januvia, and metformin at home. Continue sliding scale insulin with fingersticks ACHS, A1c in February was 10. Would likely benefit from once daily long-acting insulin Continue home gabapentin renally dosed at 300 mg twice daily Continue home oxycodone 10 mg 4 times a day as needed Continue pantoprazole (formulary conversion) for GERD Full code Heparin subcu 5000 units twice daily ICU/Critical care attestation This patient is critically ill with 40 minutes devoted solely to this patient managing life/organ supporting interventions that required physician assessment. This includes time spent making adjustments in ventilator settings, IV fluid administration, titration of pressors, adjustments of medications, discussion of patient with consultants and other care providers as well as updating patient and/or family (if patient by virtue of his/her condition is unable to participate in decision making). This does not include time spent performing separately billed procedures. Time is not concurrent with that of other providers.
[2023-09-24 20:37] LABS: Chloride 94 mmol/L (98-107); Sodium 134 mmol/L (136-145)
[2023-09-24 20:38] LABS: Potassium 3.7 mmoL/L (3.5-5.1)
[2023-09-24 20:40] LABS: Blood Urea Nitrogen 62 mg/dl (9-20); Carbon Dioxide 31 mmol/L (22.0-30.0); Creatinine Clearance Estimated 63 mL/min (50-200); Estimated Glomerular Filt Rate 36 ml/min (>60); GFR (African American) 44 ML/MIN (>60)
[2023-09-24 20:41] LABS: Anion Gap 12.7 mEq/L (5-15); Calcium 8.7 mg/dl (8.4-10.2); Glucose 79 mg/dl (74-100); Magnesium 1.5 mg/dl (1.6-2.3)
[2023-09-24] MEDS: MILRINONE LACTATE 20 MG in 0.9 % SODIUM CHLORIDE 80 ML 8.24 MG IV (21:36)
[2023-09-24] MEDS: HEPARIN SODIUM 5,000 UNIT/ML VIAL 5000 UNIT SQ (21:51)
[2023-09-24] MEDS: PANTOPRAZOLE 40MG VIAL 40 MG IV (23:31)
[2023-09-25] VITALS (39 sets, daily range): BP systolic 103–159; BP diastolic 48–90; PULSE 64–111; RESP 18–22; TEMP 36.8–37.9; O2SAT 100; BMI 33.0
[2023-09-25] MEDS: BUMETANIDE 10 MG in 0.9 % SODIUM CHLORIDE 60 ML 20 MG IV ×6 (02:24→21:50)
[2023-09-25] MEDS: propofoL 100 ML 26.37 MG IV ×2 (03:42→06:28)
[2023-09-25 06:24] LABS: POC Glucose,Bedside 120 (70-110)
[2023-09-25 06:25] LABS: POC Glucose,Bedside 68 (70-110)
[2023-09-25] MEDS: FENTANYL CITRATE/PF 1,000 MCG in 0.9 % SODIUM CHLORIDE 80 ML 5 MCG IV (06:29)
[2023-09-25] MEDS: IPRATROPIUM/ALBUTEROL 3 ML NEB IH ×4 (06:46→23:55)
[2023-09-25 06:47] LABS: Basophils % 0.4 % (0.1-2.0); Eosinophils % 0.3 % (0.1-12.0); Hematocrit 36.1 % (42.0-52.0); Hemoglobin 11.1 g/dL (14.1-18.0); Lymphocytes # 0.9 K/mm3 (0.7-4.5); Lymphocytes % 11.2 % (10-50); Mean Corpuscular HGB Conc 30.7 g/dL (31.8-35.4); Mean Corpuscular Hemoglobin 23.4 pg (27.0-31.2); Mean Corpuscular Volume 76.1 fl (80-94); Mean Platelet Volume 11.6 fl (7.4-10.4); Monocytes # 0.9 K/mm3 (0.1-1.0); Monocytes % 10.3 % (1.7-9.3); Neutrophils # 6.4 K/mm3 (1.8-7.8); Neutrophils % 77.7 % (37.0-80.0); Platelet Count 167 K/mm3 (142-424); Red Blood Count 4.74 M/mm3 (4.60-6.20); Red Cell Distribution Width 21.4 % (11.5-17.5); White Blood Count 8.2 K/mm3 (4.8-10.8)
[2023-09-25 06:58] LABS: Alanine Aminotransferase 13 U/L (12-78); Albumin Level 3.1 g/dl (3.5-5.0); Alkaline Phosphatase 91 U/L (38-126); Anion Gap 12.7 mEq/L (5-15); Aspartate Amino Transferase 24 U/L (17-59); Bilirubin,Total 1.5 mg/dl (0.2-1.3); Blood Urea Nitrogen 56 mg/dl (9-20); Calcium 8.6 mg/dl (8.4-10.2); Carbon Dioxide 34 mmol/L (22.0-30.0); Chloride 91 mmol/L (98-107); Creatinine Clearance Estimated 71 mL/min (50-200); Estimated Glomerular Filt Rate 44 ml/min (>60); GFR (African American) 53 ML/MIN (>60); Globulin 3.1 g/dL (1.3-3.2); Glucose 105 mg/dl (74-100); Magnesium 1.3 mg/dl (1.6-2.3); Sodium 135 mmol/L (136-145); Total Protein,Serum 6.2 g/dl (6.3-8.2)
[2023-09-25 07:25] LABS: Potassium 2.7 mmoL/L (3.5-5.1)
[2023-09-25] MEDS: MILRINONE LACTATE 20 MG in 0.9 % SODIUM CHLORIDE 80 ML 8.24 MG IV (08:16)
--- NOTE | 2023-09-25 08:19 | DIET.NUTRFU ---
if NPO >3 days start TF: Glucerna at 20ml/hr with goal rate of 80ml/hr providing 1920kcal/80gm protein and 1638ml free water, flush dependent on IVF. May need to adjust due to propofol dose. include diabetic handouts in discharge paperwork
--- NOTE | 2023-09-25 09:09 | EXP.CARD.PN ---
Subjective Subjective Date: 09/25/23 Time: 08:30 Principal diagnosis: volume overload Interval history: Patient remains intubated and sedated this morning. Has diuresed over 6 L. Patient remains on milrinone, Bumex and amiodarone drips. Morning labs reviewed Exam Data for Last 24 hours Vital signs and Labs for Last 24 Hours: Temp Pulse Resp BP Pulse Ox O2 Del Method O2 Flow Rate 99.1 F 71 22 125/65 100 Mechanical Ventilation 2 09/25/23 08:00 09/25/23 07:00 09/25/23 07:00 09/25/23 07:00 09/25/23 07:00 09/25/23 07:00 09/24/23 09:03 FiO2 35 09/25/23 07:00 Laboratory Results - last 24 hr 09/24/23 10:02: ABG O2 Sat (Measured) 22.7 L, POC VBG O2 Sat ([place]) 8.7 L 09/24/23 10:54: POC Glucose 171 H 09/24/23 11:19: Specimen Source Right radial, O2 % 70%, ABG pH 7.31 L, ABG pCO2 58.4 H, ABG pO2 144.8 H, ABG HCO3 28.7 H, ABG Total CO2 30.5 H, ABG O2 Saturation 99, ABG Base Excess 2.4 H, Ronnie Test Patient unable, Vent Rate 18, Tidal Volume 450, PEEP 8 09/24/23 16:29: POC Glucose 106 09/24/23 20:04: Sodium 134 L, Potassium 3.7, Chloride 94 L, Carbon Dioxide 31 H, Anion Gap 12.7, BUN 62 H, Creatinine 1.90 H, Estimated Creat Clear 63, Estimated GFR 36 L, Est GFR ( Amer) 44 L, Glucose 79 D, Calcium 8.7, Magnesium 1.5 L 09/24/23 21:44: POC Glucose 68 L 09/25/23 05:31: WBC 8.2 D, RBC 4.74, Hgb 11.1 L, Hct 36.1 L, MCV 76.1 L, MCH 23.4 L, MCHC 30.7 L, RDW 21.4 H, Plt Count 167 D, MPV 11.6 H, Neut % (Auto) 77.7, Lymph % (Auto) 11.2, [place] % (Auto) 10.3 H, Eos % (Auto) 0.3, Baso % (Auto) 0.4, Neut # (Auto) 6.4, Lymph # (Auto) 0.9, [place] # (Auto) 0.9, Eos # (Auto) 0.0, Baso # (Auto) 0.0, Sodium 135 L, Potassium 2.7 L* D, Chloride 91 L, Carbon Dioxide 34 H, Anion Gap 12.7, BUN 56 H, Creatinine 1.60 H, Estimated Creat Clear 71, Estimated GFR 44 L, Est GFR ( Amer) 53 L D, Glucose 105 H D, Calcium 8.6, Magnesium 1.3 L D, Total Bilirubin 1.5 H, AST 24, ALT 13, Alkaline Phosphatase 91, Total Protein 6.2 L, Albumin 3.1 L D, Globulin 3.1, Albumin/Globulin Ratio 1.0 L 09/25/23 05:56: POC Glucose 120 H I & O for Last 24 hours: Intake & Output 09/22/23 09/23/23 09/24/23 09/25/23 23:59 23:59 23:59 23:59 Intake Total 135 / 135 1345.099 / 5426.020 8093.707 / 1781.707 Output Total 625 / 625 6150 / 6475 3050 / 3050 Balance -490 / -490 -4804.901 / -5129.901 -1268.293 / -1268.293 Weight 234 lb 8 oz 242 lb 4 oz 231 lb 0.711 oz Constitutional Constitutional: no acute distress and obese Comments: Intubated and sedated *Routine Respiratory Exam Respiratory: Present patient mechanically ventilated and symmetric chest movement *Routine Cardiovascular Exam Cardiovascular: Present RRR, Normal S1 and Normal S2 *Routine Extremities Exam Extremities: Present edema Progress Note: A&P Assessment and plan (1) Cardiogenic shock: Status: Acute (2) Acute on chronic heart failure with reduced ejection fraction and diastolic dysfunction: Status: Acute (3) Acute respiratory failure with hypoxia: Status: Acute (4) On mechanically assisted ventilation: Status: Acute (5) Pneumonia: Status: Acute (6) Acute kidney injury: Status: Acute (7) Pulmonary edema with congestive heart failure: Status: Acute (8) Bilateral leg edema: Status: Acute (9) Tobacco abuse: Status: Chronic (10) Hyperlipidemia: Status: Chronic (11) History of coronary artery bypass graft: Status: Acute (12) Depression: Status: Chronic (13) Diabetes mellitus: Status: Chronic Assessment and Plan Assessment and Plan for All Diagnoses:: Acute on Chronic HFrEF s/p AICD Cardiogenic shock Nonsustained VT Acute hypoxic respiratory failure requiring intubation Echo 01/2023-EF 40-45. Repeat echo 09/2023: Mild LV dilation with severe reduction in LV systolic function 10%, markedly increased LV wall thickness, grade 2 diastolic dysfunction, severe RV dilation with severe reduction in RV function. Biatrial dilation. Mild AI. Moderate TR. Elevated RVSP 50 to 55%. Continue Bumex drip for diuresis at increased rate of 2 mg/h Continue milrinone Continue miodarone drip Strict I's and O's No beta-blockers Pulmonology is following- will defer vent management Right IJ sheath left in place possible repeat right heart catheterization 09/25/2023: Patient has diuresed over 6 L. Will continue Bumex and milrinone drips. Patient does continue to have episodes of nonsustained VT while on amiodarone. Potassium and magnesium are low this morning, primary service is already replacing. Will continue amiodarone drip and add a lidocaine drip. Coronary artery disease Status post CABG Troponin is negative EKG is is negative for acute ischemic changes Patient had medical management heart cath 08/04/2022 No chest pain on presentation Continue Plavix 75 mg p.o. daily and atorvastatin 40 mg p.o. daily. Acute kidney injury-resolving Creatinine peaked at 2.1, has improved to 1.6 CV summary 09/24/2023: Patient remains critically ill, intubated and sedated. Ejection fraction is 10%. Patient needs to remain on Bumex drip and milrinone drip today. Consider stopping milrinone drip and adding Entresto tomorrow. Recommend continuing Bumex drip through Thursday. Patient still having long runs of VT while on amiodarone, we will add a lidocaine drip. Potassium and magnesium being replaced per primary service. Continue to monitor I's and O's. Consult Dr. Oconnell over the weekend for any additional concerns.
[2023-09-25] MEDS: KCl 20mEq/100ml 100 ML 50 MEQ IV ×2 (09:30→11:20)
--- NOTE | 2023-09-25 09:44 | P.PN_ITS ---
Subjective *Date: 09/25/23 *Time: 11:39 Interval history: No acute respiratory events overnight. Pulmonology Exam Inpatient Vital signs and Labs for Last 24 Hours: Temp Pulse Resp BP Pulse Ox O2 Del Method O2 Flow Rate 99.1 F 71 22 125/65 100 Mechanical Ventilation 2 09/25/23 08:00 09/25/23 07:00 09/25/23 07:00 09/25/23 07:00 09/25/23 07:00 09/25/23 07:00 09/24/23 09:03 FiO2 35 09/25/23 07:00 Laboratory Results - last 24 hr 09/24/23 10:02: ABG O2 Sat (Measured) 22.7 L, POC VBG O2 Sat ([place]) 8.7 L 09/24/23 10:54: POC Glucose 171 H 09/24/23 11:19: Specimen Source Right radial, O2 % 70%, ABG pH 7.31 L, ABG pCO2 58.4 H, ABG pO2 144.8 H, ABG HCO3 28.7 H, ABG Total CO2 30.5 H, ABG O2 Saturation 99, ABG Base Excess 2.4 H, Ronnie Test Patient unable, Vent Rate 18, Tidal Volume 450, PEEP 8 09/24/23 16:29: POC Glucose 106 09/24/23 20:04: Sodium 134 L, Potassium 3.7, Chloride 94 L, Carbon Dioxide 31 H, Anion Gap 12.7, BUN 62 H, Creatinine 1.90 H, Estimated Creat Clear 63, Estimated GFR 36 L, Est GFR ( Amer) 44 L, Glucose 79 D, Calcium 8.7, Magnesium 1.5 L 09/24/23 21:44: POC Glucose 68 L 09/25/23 05:31: WBC 8.2 D, RBC 4.74, Hgb 11.1 L, Hct 36.1 L, MCV 76.1 L, MCH 23.4 L, MCHC 30.7 L, RDW 21.4 H, Plt Count 167 D, MPV 11.6 H, Neut % (Auto) 77.7, Lymph % (Auto) 11.2, [place] % (Auto) 10.3 H, Eos % (Auto) 0.3, Baso % (Auto) 0.4, Neut # (Auto) 6.4, Lymph # (Auto) 0.9, [place] # (Auto) 0.9, Eos # (Auto) 0.0, Baso # (Auto) 0.0, Sodium 135 L, Potassium 2.7 L* D, Chloride 91 L, Carbon Dioxide 34 H, Anion Gap 12.7, BUN 56 H, Creatinine 1.60 H, Estimated Creat Clear 71, Estimated GFR 44 L, Est GFR ( Amer) 53 L D, Glucose 105 H D, Calcium 8.6, Magnesium 1.3 L D, Total Bilirubin 1.5 H, AST 24, ALT 13, Alkaline Phosphatase 91, Total Protein 6.2 L, Albumin 3.1 L D, Globulin 3.1, A lbumin/Globulin Ratio 1.0 L 09/25/23 05:56: POC Glucose 120 H Temp Pulse Resp BP Pulse Ox O2 Del Method O2 Flow Rate 97.5 F L 76 20 123/63 95 Nasal Cannula 2 09/24/23 07:45 09/24/23 09:03 09/24/23 09:03 09/24/23 09:03 09/24/23 09:03 09/24/23 09:03 09/24/23 09:03 Laboratory Results - last 24 hr 09/23/23 13:07: VBG pH 7.33, VBG pCO2 51.2 H, VBG pO2 33.3, VBG HCO3 26.2, VBG Total CO2 27.8 H, VBG O2 Saturation 57.0, VBG Base Excess 0.2, VBG Lactic Acid 2.9 H 09/23/23 13:13: WBC 5.4, RBC 5.05, Hgb 12.1 L, Hct 40.3 L, MCV 79.8 L, MCH 24.0 L, MCHC 30.1 L, RDW 21.1 H, Plt Count 144, MPV 12.1 H, Neut % (Auto) 75.1, Lymph % (Auto) 17.2, [place] % (Auto) 6.7, Eos % (Auto) 0.4, Baso % (Auto) 0.6, Neut # (Auto) 4.1, Lymph # (Auto) 0.9, [place] # (Auto) 0.4, Eos # (Auto) 0.0, Baso # (Auto) 0.0, PT 13.8 H, INR 1.30 H, APTT 27.6, Sodium 134 L, Potassium 3.5, Chloride 93 L, Carbon Dioxide 31 H, Anion Gap 13.5, BUN 50 H, Creatinine 1.90 H, Estimated Creat Clear 57, Estimated GFR 36 L, Est GFR ( Amer) 44 L, Glucose 201 H, Hemoglobin A1c 8.0 H, Calcium 9.1, Total Bilirubin 1.2, AST 25, ALT 20, Alkaline Phosphatase 95, Troponin I 0.02, NT-Pro-B Natriuret Pep 00169 H , Total Protein 7.0, Albumin 3.8, Globulin 3.2, Albumin/Globulin Ratio 1.2, Triglycerides 91, Cholesterol 103 L, LDL Cholesterol Direct 64.40 L, VLDL Cholesterol 18, HDL Cholesterol 30 L, Cholesterol/HDL Ratio 3.4 09/23/23 16:09: Ammonia < 9 L, Troponin I 0.02 09/23/23 16:53: POC Glucose 175 H 09/23/23 18:13: Lactate 2.6 H, Troponin I 0.02 09/23/23 20:15: Sodium 133 L, Potassium 4.0, Chloride 93 L, Carbon Dioxide 32 H, Anion Gap 12.0, BUN 53 H, Creatinine 2.00 H, Estimated Creat Clear 58, Estimated GFR 34 L, Est GFR ( Amer) 41 L, Glucose 241 H, Calcium 8.8 09/23/23 20:25: POC Glucose 262 H 09/23/23 21:25: Lactate 1.8 09/24/23 05:57: WBC 5.6, RBC 4.80, Hgb 11.2 L, Hct 38.6 L, MCV 80.5, MCH 23.4 L, MCHC 29.1 L, RDW 21.0 H, Plt Count 131 L, MPV 9.6, Neut % (Auto) 58.7, Lymph % (Auto) 28.4, [place] % (Auto) 10.5 H, Eos % (Auto) 1.4, Baso % (Auto) 1.0, Neut # (Auto) 3.3, Lymph # (Auto) 1.6, [place] # (Auto) 0.6, Eos # (Auto) 0.1, Baso # (Auto) 0.1, Sodium 136, Potassium 4.2, Chloride 93 L, Carbon Dioxide 31 H, Anion Gap 16.2 H, BUN 60 H, Creatinine 2.10 H, Estimated Creat Clear 57, Estimated GFR 32 L, Est GFR ( Amer) 39 L, Glucose 202 H, Calcium 8.7, Magnesium 1.4 L, Total Bilirubin 0.9, AST 21, ALT 16, Alkaline Phosphatase 88, Total Protein 6.6, Albumin 3.7, Globulin 2.9, Albumin/Globulin Ratio 1.3 09/24/23 10:54: POC Glucose 171 H 09/24/23 11:19: Specimen Source Right radial, O2 % 70%, ABG pH 7.31 L, ABG pCO2 58.4 H, ABG pO2 144.8 H, ABG HCO3 28.7 H, ABG Total CO2 30.5 H, ABG O2 Saturation 99, ABG Base Excess 2.4 H, Ronnie Test Patient unable, Vent Rate 18, Tidal Volume 450, PEEP 8 I & O for Labs for Last 24 Hours: Intake & Output 09/22/23 09/23/23 09/24/23 09/25/23 23:59 23:59 23:59 23:59 Intake Total 135 / 135 1345.099 / 4230.972 6367.848 / 1870.848 Output Total 625 / 625 6150 / 6475 3050 / 3050 Balance -490 / -490 -4804.901 / -5129.901 -1179.152 / -1179.152 Weight 234 lb 8 oz 242 lb 4 oz 231 lb 0.711 oz Intake & Output 09/21/23 09/22/23 09/23/23 09/24/23 23:59 23:59 23:59 23:59 Intake Total 135 / 135 100 / 100 Output Total 625 / 625 50 / 50 Balance -490 / -490 50 / 50 Weight 234 lb 8 oz 242 lb 4 oz Constitutional: Present severe distress Comment:: Intubated and Sedated Head: Present normocephalic and atraumatic Neck: Present normal inspection and trachea midline Respiratory: Present patient mechanically ventilated, respiratory distress and crackles; Absent rhonchi or wheezes Cardiac: Present S1/S2 and Tachycardia GI: Present soft; Absent distention or tenderness Skin: Present wounds; Absent intact or cyanosis Neuro: Absent alert, awake or oriented x 3 Comment:: Intubated and sedated Extremities: Present edema; Absent normal inspection, clubbing or cyanosis Psychiatric: Present unable to assess Assessment and Plan *Assessment and plan (1) Acute respiratory failure with hypoxia: Status: Acute Category: Medical Code(s): J96.01 - Acute respiratory failure with hypoxia (2) On mechanically assisted ventilation: Status: Acute Category: Medical Code(s): Z99.11 - Dependence on respirator [ventilator] status (3) Pneumonia: Status: Acute Category: Medical Code(s): J18.9 - Pneumonia, unspecified organism Plan Much of the history is obtained from chart review. Mr. Vargas is a 63-year-old female with a history of heart failure with reduced ejection fraction hypertension dyslipidemia ANNA diabetes presents with worsening respiratory distress bilateral worsening lower extremity swelling worsening renal function admitted and being managed for acute congestive heart failure exacerbation with diuretics went for an elective right heart catheterization today noted to have mostly respiratory distress and apnea. She needing intubation mechanical ventilatory support and pulmonary was called for further evaluation and management. Auscultation no significant wheezing noted. CT chest very minimal emphysematous changes. PFTs from 2020 did not show any obvious evidence of obstructive lung disease. Concerning for mild restriction. Chest x-ray postintubation reviewed, ET tube in place. Concerning new left upper lobe infiltrate. Cardiomegaly noted. ABG from admission hypercarbic respiratory failure lab abnormalities including worsening BUN/creatinine along with Hypomagnesemia. Currently minimal ventilator settings, ABG performed on 70% FiO2 did not show any evidence of hypoxic respiratory failure. Showed evidence of hypercarbic respiratory failure. Interval Update: No acute respiratory events overnight. Continued to remain on minimal ventilatory settings. RHC PCWP 40mm Hg. Continue to be diuresed, net negativve 6L. Improving BUN/creatinine. Hypokalemia and hypomagnesemia, being repleted. Hemodynamically stable sustained V. tach. Initiated on lidocaine infusion at 1 mg/min. Afebrile. Stable white count. Continue to receive ceftriaxone and doxycycline. Follow with repeat chest x-ray. Plan: Off sedation this morning undergoing SBT. Still present. Will closely monitor his mentation. Also having copious secretions. Will monitor. Follow with SBT trial and ABG after that. Continue mechanical ventilatory settings and PEEP of 5, FiO2 of 35% tidal volume of 450 and a rate of 20. Initiate ceftriaxone and doxycycline pending tracheal aspirate culture results DuoNebs every 6 hours on a scheduled basis # Thank you for involving pulmonary in this patient care. Will continue to follow.
--- NOTE | 2023-09-25 09:45 | XR_ITS ---
FINAL REPORT CLINICAL HISTORY: MV, intubated COMPARISON: 09/24/2023 FINDINGS: A single portable view of the chest was obtained. Cardiomegaly is noted. Prior median sternotomy. There is a left subclavian ICD in place. Pulmonary vascular congestion is noted. Worsening right base opacities are consistent with worsening atelectasis or pneumonia. There are multiple chronic left rib fractures. IMPRESSION: Worsening atelectasis or pneumonia. Cardiomegaly and pulmonary vascular congestion. Reviewed, Interpreted and Dictated by Kirt Escobar III, MD Transcribed by Tresa Brambila Authenticated and [facility]
[2023-09-25] MEDS: SODIUM CHLORIDE 0.9% IV (09:55)
[2023-09-25] MEDS: LIDOCAINE HCL IV ×2 (09:55→10:02)
[2023-09-25] MEDS: DEXTROSE IV (10:02)
[2023-09-25] MEDS: MAGNESIUM SULFATE IN WATER 2 GM/50 ML PIGGYBACK IV ×2 (10:19→16:24)
[2023-09-25] MEDS: CEFTRIAXONE SODIUM 1 GM in 0.9 % SODIUM CHLORIDE 50 ML IV (10:52)
[2023-09-25] MEDS: MAGNESIUM OXIDE 400MG TABLET 400 MG PO ×2 (10:52→20:54)
[2023-09-25] MEDS: POTASSIUM CHLORIDE 20MEQ/15ML UDC 20 MEQ NG-TUBE ×2 (10:52→13:17)
[2023-09-25] MEDS: CLOPIDOGREL 75MG TAB 75 MG PO (10:53)
[2023-09-25] MEDS: HEPARIN SODIUM 5,000 UNIT/ML VIAL 5000 UNIT SQ ×2 (10:53→20:53)
[2023-09-25] MEDS: DOXYCYCLINE HYCLATE 100 MG in 0.9 % SODIUM CHLORIDE 250 ML 166.667 MG IV ×2 (12:02→22:51)
[2023-09-25] MEDS: AMIODARONE HCL 900 MG in DEXTROSE 5 % IN WATER 500 ML 17.27 MG IV (12:03)
[2023-09-25] MEDS: humaLOG 100 UNITS/ML 3ML VIAL (SSI) SQ ×2 (12:14→21:30)
[2023-09-25 12:23] LABS: Allen's Test ACCEPTABLE; Oxygen 35 %; PEEP 5; Pressure Support 5; Source Left Radial
[2023-09-25 12:24] LABS: ABG Base Excess 5.9 mmol/L (-2.4-2.3); ABG HCO3 28.7 mmhg (22.0-26.0); ABG Oxygen Saturation 95 % (90-100); ABG PCO2 35.8 mmhg (35.0-45.0); ABG PH 7.52 mmol/L (7.35-7.45); ABG PO2 75.8 mmhg (80-100); ABG TCO2 29.8 mmhg (23-27)
[2023-09-25 12:31] LABS: POC Glucose,Bedside 153 (70-110)
[2023-09-25] MEDS: ACETAMINOPHEN 325MG TAB 650 MG PO (13:17)
--- NOTE | 2023-09-25 13:28 | PC.NURSE ---
pt extubated at 1325 by Kimberly Noriega and Sydney Gamble in RT. -pt tolerated well.
--- NOTE | 2023-09-25 13:37 | PC.NURSE ---
pt removed NG tube at this time. [id number]
[2023-09-25] MEDS: MORPHINE 4MG/ML SYRINGE 4 MG IV ×3 (14:01→19:32)
--- NOTE | 2023-09-25 14:34 | EXP.ACUTE.PN ---
Subjective *Date: 09/25/23 *Time: 18:23 Interval history: Patient did well overnight on vent, was able to wean to extubate will settings. Passed SBT this morning. Having good urine output. Blood pressures improved with milrinone. Afebrile overnight. White cell count normal at 8.2. Having some episodes of V. tach versus pacemaker induced tachycardia. Discussed case with . Continue aggressive management. Pulmonology and cardiology assisting with care. Medical Exam Vital signs and Labs for Last 24 Hours: Vital Signs Temp Pulse Pulse Resp BP Pulse Ox O2 Del Method 09/25/23 13:55 Nasal Cannula 09/25/23 13:25 100 09/25/23 12:00 88 100 Mechanical Ventilation 09/25/23 12:00 100.2 F H 09/25/23 11:00 Mechanical Ventilation 09/25/23 10:55 106 H 09/25/23 10:55 108 H 09/25/23 10:30 09/25/23 10:00 09/25/23 09:00 Mechanical Ventilation 09/25/23 08:00 110 H 100 Nasal Cannula 09/25/23 08:00 100 09/25/23 08:00 80 09/25/23 08:00 99.1 F 09/25/23 07:00 71 22 125/65 100 Mechanical Ventilation 09/25/23 06:47 85 09/25/23 06:47 22 100 09/25/23 06:00 68 22 126/66 100 Mechanical Ventilation 09/25/23 05:00 69 22 119/66 100 Mechanical Ventilation 09/25/23 04:04 22 100 09/25/23 04:00 100 Mechanical Ventilation 09/25/23 04:00 70 09/25/23 04:00 73 22 123/54 L 100 Mechanical Ventilation 09/25/23 03:00 75 22 111/55 L 100 Mechanical Ventilation 09/25/23 02:09 22 100 09/25/23 02:00 64 22 103/57 L 100 Mechanical Ventilation 09/25/23 01:00 72 22 127/60 100 Mechanical Ventilation 09/25/23 00:00 70 09/25/23 00:00 100 Mechanical Ventilation 09/25/23 00:00 98.8 F 09/25/23 00:00 69 22 115/62 100 Mechanical Ventilation 09/24/23 23:46 75 09/24/23 23:46 71 09/24/23 23:19 22 100 09/24/23 23:00 80 22 92/45 L 100 Mechanical Ventilation 09/24/23 22:00 66 22 121/58 L 100 Mechanical Ventilation 09/24/23 21:00 79 22 99/43 L 100 Mechanical Ventilation 09/24/23 20:40 22 100 09/24/23 20:00 98.9 F 09/24/23 20:00 67 100 Mechanical Ventilation 09/24/23 20:00 78 22 113/64 100 Mechanical Ventilation 09/24/23 19:05 81 09/24/23 19:05 77 09/24/23 19:05 100 Mechanical Ventilation 09/24/23 19:05 22 100 09/24/23 19:00 79 22 112/52 L 100 Mechanical Ventilation 09/24/23 18:56 Mechanical Ventilation 09/24/23 18:00 71 22 116/59 L 100 Mechanical Ventilation 09/24/23 17:00 74 22 110/60 100 Mechanical Ventilation 09/24/23 17:00 Mechanical Ventilation 09/24/23 16:00 75 09/24/23 16:00 97.9 F 71 22 130/63 100 Mechanical Ventilation 09/24/23 16:00 Mechanical Ventilation 09/24/23 15:00 Mechanical Ventilation 09/24/23 15:00 64 22 104/62 L 100 Mechanical Ventilation 09/24/23 14:45 64 22 115/52 L 100 Mechanical Ventilation FiO2 09/25/23 13:55 09/25/23 13:25 09/25/23 12:00 35 09/25/23 12:00 09/25/23 11:00 09/25/23 10:55 09/25/23 10:55 09/25/23 10:30 35 09/25/23 10:00 35 09/25/23 09:00 09/25/23 08:00 35 09/25/23 08:00 35 09/25/23 08:00 09/25/23 08:00 09/25/23 07:00 35 09/25/23 06:47 09/25/23 06:47 35 09/25/23 06:00 35 09/25/23 05:00 35 09/25/23 04:04 35 09/25/23 04:00 35 09/25/23 04:00 09/25/23 04:00 35 09/25/23 03:00 35 09/25/23 02:09 35 09/25/23 02:00 35 09/25/23 01:00 35 09/25/23 00:00 09/25/23 00:00 09/25/23 00:00 09/25/23 00:00 35 09/24/23 23:46 09/24/23 23:46 09/24/23 23:19 35 09/24/23 23:00 35 09/24/23 22:00 35 09/24/23 21:00 35 09/24/23 20:40 35 09/24/23 20:00 09/24/23 20:00 35 09/24/23 20:00 35 09/24/23 19:05 09/24/23 19:05 09/24/23 19:05 35 09/24/23 19:05 35 09/24/23 19:00 35 09/24/23 18:56 09/24/23 18:00 09/24/23 17:00 09/24/23 17:00 09/24/23 16:00 09/24/23 16:00 09/24/23 16:00 09/24/23 15:00 09/24/23 15:00 09/24/23 14:45 Intake and Output 09/24/23 09/25/23 09/25/23 23:59 07:59 15:59 Intake Total 991.177 / 6266.716 6742.707 / 2839.103 1069.396 / 2839.103 Output Total 3825 / 6475 3050 / 4795 1745 / 4795 Balance -2833.823 / -5129.901 -1280.293 / -1955.897 -675.604 / -1955.897 Intake: Intake, Oral Amount 0 / 0 Intake, Total IV Amount 991.177 / 3813.044 1964.707 / 2839.103 1069.396 / 2839.103 Amiodarone HCl 900 mg In 395 / 471 76 / 471 Dextrose 5 % in Water 500 ml @ 1 MG/MIN 34.533 mls/hr IV . Q15H1M [facility] Rx#:[id number] Bumetanide 10 mg In 0.9 % 70 / 153 Sodium Chloride 60 ml @ 10 mls/ hr IV .Q10H [facility] Rx#:[id number] Bumetanide 10 mg In 0.9 % 236 / 236 Sodium Chloride 60 ml @ 20 mls/ hr IV .Q5H [facility] Rx#:[id number] Ceftriaxone Sodium 1 gm In 0.9 48 / 48 % Sodium Chloride 50 ml @ 100 mls/hr IV 0900 [facility] Rx#:[id number] Doxycycline Hyclate 100 mg In 0 250 / 250 .9 % Sodium Chloride 250 ml @ 166.667 mls/hr IV 1100,2300 [facility] Rx#:[id number] Doxycycline Hyclate 100 mg In 0 293 / 293 .9 % Sodium Chloride 250 ml @ 166.667 mls/hr IV 1100,2300 [facility] Rx#:[id number] Fentanyl Citrate/Pf 1,000 mcg 91 / 91 In 0.9 % Sodium Chloride 80 ml @ 75 MCG/HR 7.5 mls/hr IV . [id number] [facility] Rx#:[id number] KCl 20mEq/100ml 100 ml @ 50 mls 198 / 198 /hr IV Q2H [facility] Rx#:[id number] Magnesium Sulfate in Water 2 gm 50 / 50 In 50 ml @ 50 mls/hr IV Q8H [facility] Rx#:[id number] Milrinone Lactate 20 mg In 0.9 150 / 150 % Sodium Chloride 80 ml @ 0.25 MCG/KG/MIN 8.241 mls/hr IV . Q12H9M [facility] Rx#:[id number] propofoL 100 ml @ 5 MCG/KG/MIN 514 / 514 3.296 mls/hr IV .Q24H [facility] Rx#: [id number] Output: Output, Urine Amount 1745 / 1745 Output, Urine Amount (Catheter) 3825 / 5775 3050 / 3050 [place] 3825 / 5775 3050 / 3050 Other: Number of Unmeasured Voids 0 0 Weight 104.825 kg 104.8 kg Patient Weight 09/25/23 23:59 Weight 104.8 kg Laboratory Results - last 24 hr 09/24/23 10:02: ABG O2 Sat (Measured) 22.7 L, POC VBG O2 Sat ([place]) 8.7 L 09/24/23 16:29: POC Glucose 106 09/24/23 20:04: Sodium 134 L, Potassium 3.7, Chloride 94 L, Carbon Dioxide 31 H, Anion Gap 12.7, BUN 62 H, Creatinine 1.90 H, Estimated Creat Clear 63, Estimated GFR 36 L, Est GFR ( Amer) 44 L, Glucose 79 D, Calcium 8.7, Magnesium 1.5 L 09/24/23 21:44: POC Glucose 68 L 09/25/23 05:31: WBC 8.2 D, RBC 4.74, Hgb 11.1 L, Hct 36.1 L, MCV 76.1 L, MCH 23.4 L, MCHC 30.7 L, RDW 21.4 H, Plt Count 167 D, MPV 11.6 H, Neut % (Auto) 77.7, Lymph % (Auto) 11.2, [place] % (Auto) 10.3 H, Eos % (Auto) 0.3, Baso % (Auto) 0.4, Neut # (Auto) 6.4, Lymph # (Auto) 0.9, [place] # (Auto) 0.9, Eos # (Auto) 0.0, Baso # (Auto) 0.0, Sodium 135 L, Potassium 2.7 L* D, Chloride 91 L, Carbon Dioxide 34 H, Anion Gap 12.7, BUN 56 H, Creatinine 1.60 H, Estimated Creat Clear 71, Estimated GFR 44 L, Est GFR ( Amer) 53 L D, Glucose 105 H D, Calcium 8.6, Magnesium 1.3 L D, Total Bilirubin 1.5 H, AST 24, ALT 13, Alkaline Phosphatase 91, Total Protein 6.2 L, Albumin 3.1 L D, Globulin 3.1, Albumin/Globulin Ratio 1.0 L 09/25/23 05:56: POC Glucose 120 H 09/25/23 12:00: Specimen Source Left radial, O2 % 35, ABG pH 7.52 H, ABG pCO2 35.8, ABG pO2 75.8 L, ABG HCO3 28.7 H, ABG Total CO2 29.8 H, ABG O2 Saturation 95, ABG Base Excess 5.9 H, Ronnie Test Acceptable, PEEP 5 09/25/23 12:07: POC Glucose 153 H I & O for Labs for Last 24 Hours: Intake & Output 09/22/23 09/23/23 09/24/23 09/25/23 23:59 23:59 23:59 23:59 Intake Total 135 / 135 1345.099 / 8628.839 1743.103 / 2839.103 Output Total 625 / 625 6150 / 6475 4795 / 4795 Balance -490 / -490 -4804.901 / -5129.901 -1954.897 / -1954. Weight 106.367 kg 109.883 kg 104.8 kg Constitutional: Present mild distress, obese, chronically ill appearing and cooperative Head: Present atraumatic and normocephalic ENT: Present normal exam Comment:: Right IJ in place Respiratory: Present prolonged expiratory phase, rhonchi, crackles and normal respiratory effort; Absent wheezes Cardiac: Present Irregularly Regular and Tachycardia GI: Present soft and normal bowel sounds; Absent distention or tenderness Comment:: Mendoza in place Extremities: Present normal inspection, full ROM and edema (Interval improvement in edema, still has 2+ edema in left leg to knee, right leg with 1+ edema to knee.) Skin: Present intact; Absent erythema Comment:: Stasis dermatitis of lower extremities with intermittent blisters Neuro: Present alert, awake, oriented x 3 and moves all extremities Assessment and Plan *Assessment and plan (1) Cardiogenic shock: Status: Acute Category: Medical Code(s): R57.0 - Cardiogenic shock (2) Acute on chronic heart failure with reduced ejection fraction and diastolic dysfunction: Status: Acute Category: Medical Code(s): I50.43 - Acute on chronic combined systolic (congestive) and diastolic (congestive) heart failure (3) Acute respiratory failure with hypoxia: Status: Acute Category: Medical Code(s): J96.01 - Acute respiratory failure with hypoxia (4) On mechanically assisted ventilation: Status: Acute Category: Medical Code(s): Z99.11 - Dependence on respirator [ventilator] status (5) Pneumonia: Status: Acute Category: Medical Code(s): J18.9 - Pneumonia, unspecified organism (6) Acute kidney injury: Status: Acute Category: Medical Code(s): N17.9 - Acute kidney failure, unspecified (7) Pulmonary edema with congestive heart failure: Status: Acute Category: Medical Code(s): I50.1 - Left ventricular failure, unspecified (8) Bilateral leg edema: Status: Acute Category: Medical Code(s): R60.0 - Localized edema (9) Tobacco abuse: Status: Chronic Category: Medical Code(s): Z72.0 - Tobacco use (10) Hyperlipidemia: Status: Chronic Qualifiers: Hyperlipidemia type: unspecified Qualified Code(s): E78.5 - Hyperlipidemia, unspecified Category: Medical Code(s): E78.5 - Hyperlipidemia, unspecified (11) History of coronary artery bypass graft: Status: Acute Category: Surgical Code(s): Z95.1 - Presence of aortocoronary bypass graft (12) Depression: Status: Chronic Qualifiers: Active/Remission status: currently active Depression Type: major depressive disorder Major depression episode severity: moderate Major depression recurrence: single episode Qualified Code(s): F32.1 - Major depressive disorder, single episode, moderate Category: Medical Code(s): F32.A - Depression, unspecified (13) Diabetes mellitus: Status: Chronic Qualifiers: Diabetes mellitus complication status: with hyperglycemia Diabetes mellitus technician terminal and repeater insulin use: without technician terminal and repeater use Diabetes mellitus type: type 2 Qualified Code(s): E11.65 - Type 2 diabetes mellitus with hyperglycemia Category: Medical Code(s): E11.9 - Type 2 diabetes mellitus without complications Plan 63-year-old male with history of heart failure, presented with swelling in his legs and shortness of breath. Found to have GITA and volume overload. Discussed case with ER physician, request admission for diuresis and further management of kidney injury. Medicine agreed to admit. Initiated on Bumex drip. Had poor response. Taken for right heart cath this morning, decompensated necessitating mechanical ventilation and intubation. Patient has done well overnight. Diuresing well, -6 L in the past 24 hours. Passed SBT this morning, plan to extubate. Pulmonology and cardiology continue to assist with care. Continues to be in critical condition, necessitating ICU level care. Continuing milrinone drip, amiodarone for arrhythmia, Bumex drip. Problems addressed as follows: Cardiogenic shock Acute on chronic heart failure with reduced ejection fraction Volume overload -Discussed case with cardiology, will continue Bumex drip at 2 mg/h. Continue milrinone drip, initially increased to .25, will decrease to 0.125 this afternoon after extubation if pressures remain appropriate. -Continue Bumex drip till Thursday, will de-escalate to oral Bumex at that time. -Continue amiodarone for arrhythmia. On rounds, lidocaine added. -Mendoza in place for strict monitoring of output. Putting out between 200-300 cc an hour at this time. Monitoring BMP every 12 hours. -Echo showing severely reduced LVEF approximately 10%. Grade 2 diastolic dysfunction. Elevated RVSP of 50 to 55 mmHg. Will consider repeat right heart cath on Thursday. -Holding KORY inhibitor and beta-rodrigo. Continue aspirin and Plavix -Continue ceftriaxone 1 g daily and doxycycline 100 mg twice daily. Sputum cultures pending. - Pantoprazole 40 mg IV nightly Passed SBT this morning. Will wean to nasal cannula, wean as tolerated for goal sats greater than 90%.. GITA -Baseline creatinine approximately 1. Creatinine elevated on morning labs at 1.6, BUN 56. Repeat BMP this afternoon, repeat CBC, CMP, magnesium ordered for the morning. -Magnesium 1.3, will replace IV with 2 g twice. -Initiate oral magnesium. -Potassium 2.7, initiating IV and oral replacement. -Suspect component of renal congestion and volume overload causing GITA -Caution with nephrotoxins, will renally dose medications Diabetes: A1c obtained, elevated at8, on glimepiride, Januvia, and metformin at home. Continue sliding scale insulin with fingersticks ACHS, A1c in February was 10. Would likely benefit from once daily long-acting insulin Continue home gabapentin renally dosed at 300 mg twice daily Continue home oxycodone 10 mg 4 times a day as needed Continue pantoprazole (formulary conversion) for GERD Full code Heparin subcu 5000 units twice daily ICU/Critical care attestation This patient is critically ill with 30 minutes devoted solely to this patient managing life/organ supporting interventions that required physician assessment. This includes time spent making adjustments in ventilator settings, IV fluid administration, titration of pressors, adjustments of medications, discussion of patient with consultants and other care providers as well as updating patient and/or family (if patient by virtue of his/her condition is unable to participate in decision making). This does not include time spent performing separately billed procedures. Time is not concurrent with that of other providers.
--- NOTE | 2023-09-25 15:17 | PC.NURSE ---
1450 pt refuses to keep gown and o2 in place. pt is redirected, but will then attempt to remove all devices again. mittens back in place on pt.
--- NOTE | 2023-09-25 17:10 | PC.NURSE ---
pt was successfully extubated at 1325 by RT. pt has remained sitting up in bed since extubation. pt is turned q2, heels floated. pt cognition has also appeared to improve since extubation. pt is no longer noted to be pulling at o2, monitors or clothing. pt did receive a bed bath following extubation as well. has remained at bedside this shift. pt still noted to have periods of sustained vtach. pt is asymptomatic during episodes.
--- NOTE | 2023-09-25 17:30 | PC.NURSE ---
0840 spoke with Su face to face and notified her that pt is still having periods of sustained vtach, and is asymptomatic. [address] Ivey face to face about pt vtach [address] hills that pt is still having periods of sustained vtach and is asymptomatic.
[2023-09-25 18:41] LABS: Chloride 93 mmol/L (98-107); Potassium 3.7 mmoL/L (3.5-5.1); Sodium 137 mmol/L (136-145)
[2023-09-25 18:44] LABS: Blood Urea Nitrogen 47 mg/dl (9-20); Creatinine Clearance Estimated 63 mL/min (50-200); Estimated Glomerular Filt Rate 38 ml/min (>60); GFR (African American) 46 ML/MIN (>60)
[2023-09-25 18:45] LABS: Anion Gap 10.7 mEq/L (5-15); Calcium 9.1 mg/dl (8.4-10.2); Carbon Dioxide 37 mmol/L (22.0-30.0); Glucose 141 mg/dl (74-100); Magnesium 2.1 mg/dl (1.6-2.3)
--- NOTE | 2023-09-25 20:00 | PC.NURSE ---
pt passed bedside swallow test; no coughing or choking, drooling, or other signs pt had any difficulty. pt also confirmed it went down easy.
[2023-09-25 20:12] LABS: POC Glucose,Bedside 145 (70-110)
[2023-09-25] MEDS: POTASSIUM CHLORIDE 20MEQ/15ML UDC 20 MEQ PO (20:53)
[2023-09-25] MEDS: PANTOPRAZOLE 40MG VIAL 40 MG IV (20:53)
[2023-09-25] MEDS: SODIUM CHLORIDE 0.9% 10ML VIAL 10 ML IV (20:53)
[2023-09-25] MEDS: OXYCODONE 10MG W/APAP 325MG TABLET 1 EACH PO (20:54)
[2023-09-25] MEDS: GABAPENTIN 300MG CAPSULE 300 MG PO (20:54)
--- NOTE | 2023-09-25 21:24 | PC.NURSE ---
spoke with Dr. Ivey via phone- he stated he spoke with Dr. Oconnell and they have decided to discontinue the amio gtt and to continue milrinone gtt at a rate of 0.125 mcg/kg/min and to not titrate from that rate.
[2023-09-25] MEDS: MILRINONE LACTATE 20 MG in 0.9 % SODIUM CHLORIDE 80 ML 4.12 MG IV (21:30)
[2023-09-25 21:44] LABS: POC Glucose,Bedside 163 (70-110)
[2023-09-26] VITALS (30 sets, daily range): BP systolic 126–170; BP diastolic 63–113; PULSE 70–97; RESP 16–20; TEMP 36.3–36.9; O2SAT 99–100; BMI 32.0
[2023-09-26] MEDS: MORPHINE 4MG/ML SYRINGE 4 MG IV (01:12)
[2023-09-26] MEDS: BUMETANIDE 10 MG in 0.9 % SODIUM CHLORIDE 60 ML 20 MG IV ×5 (01:56→21:28)
[2023-09-26] MEDS: OXYCODONE 10MG W/APAP 325MG TABLET 1 EACH PO ×4 (02:26→22:14)
--- NOTE | 2023-09-26 05:35 | PC.NURSE ---
At the beginning of the shift, pt was drowsy, had garbled speech, and was able to answer orientation questions, but would try to take things off (BP cuff, IV, etc.), try to get OOB, and also yell for help when I was out of the room. Each time I explained to the pt the importance of leaving things on and not getting out of bed without assistance, and also ask why he was yelling for help. He would respond each time by saying he didn't realize he was doing it. This has improved and pt is now using call light for assistance and not trying to pull things off or get out of bed. Pt does still have garbled speech but this has also improved. After passing bedside swallow test, pt was given PO meds crushed in applesauce and able to swallow with no complications. He later took his PO pain medication whole with water and had no complications at that time either. Pt has c/o back pain frequently throughout the night; treated per JUL. He has been repositioned Q1-2 hours throughout the shift and has slept intermittently. Mendoza catheter draining clear yellow urine and has had approximately 300 mL/hr of output. Pt's o2 sats have been 100%; he was on RA and then placed on CPAP at around 2100. Edema to BLE and ROM to all extremities have slightly improved this shift. 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
[2023-09-26] MEDS: humaLOG 100 UNITS/ML 3ML VIAL (SSI) SQ ×4 (06:12→21:30)
[2023-09-26 06:24] LABS: POC Glucose,Bedside 152 (70-110)
[2023-09-26] MEDS: IPRATROPIUM/ALBUTEROL 3 ML NEB IH ×4 (06:33→23:14)
[2023-09-26 06:51] LABS: Basophils # 0.1 K/mm3 (0-0.2); Basophils % 0.8 % (0.1-2.0); Eosinophils % 0.5 % (0.1-12.0); Hematocrit 38.2 % (42.0-52.0); Hemoglobin 11.4 g/dL (14.1-18.0); Lymphocytes # 1.3 K/mm3 (0.7-4.5); Lymphocytes % 16.6 % (10-50); Mean Corpuscular HGB Conc 29.8 g/dL (31.8-35.4); Mean Corpuscular Hemoglobin 23.5 pg (27.0-31.2); Mean Corpuscular Volume 78.8 fl (80-94); Mean Platelet Volume 10.5 fl (7.4-10.4); Monocytes # 0.8 K/mm3 (0.1-1.0); Monocytes % 11.2 % (1.7-9.3); Neutrophils # 5.3 K/mm3 (1.8-7.8); Neutrophils % 70.9 % (37.0-80.0); Platelet Count 143 K/mm3 (142-424); Red Blood Count 4.84 M/mm3 (4.60-6.20); Red Cell Distribution Width 21.4 % (11.5-17.5); White Blood Count 7.5 K/mm3 (4.8-10.8)
[2023-09-26 07:08] LABS: Magnesium 1.8 mg/dl (1.6-2.3); Phosphorous 4.3 mg/dl (2.5-4.5)
[2023-09-26 07:10] LABS: Alanine Aminotransferase 13 U/L (12-78); Albumin Level 3.6 g/dl (3.5-5.0); Albumin/Globulin Ratio 1.1 (1.1-1.8); Alkaline Phosphatase 100 U/L (38-126); Aspartate Amino Transferase 23 U/L (17-59); Bilirubin,Total 1.7 mg/dl (0.2-1.3); Calcium 8.8 mg/dl (8.4-10.2); Chloride 92 mmol/L (98-107); Globulin 3.4 g/dL (1.3-3.2); Glucose 154 mg/dl (74-100); Potassium 3.4 mmoL/L (3.5-5.1); Sodium 137 mmol/L (136-145)
[2023-09-26 07:12] LABS: Anion Gap 12.4 mEq/L (5-15); Blood Urea Nitrogen 46 mg/dl (9-20); Carbon Dioxide 36 mmol/L (22.0-30.0); Creatinine Clearance Estimated 73 mL/min (50-200); Estimated Glomerular Filt Rate 47 ml/min (>60); GFR (African American) 57 ML/MIN (>60)
--- NOTE | 2023-09-26 07:25 | EXP.ACUTE.PN ---
Subjective *Date: 09/26/23 *Time: 11:47 Interval history: Patient is afebrile and on room air this morning. Complaining of pain in his legs. States he is feeling little bit better. Tolerating p.o. intake. Denies any chest pain, nausea, vomiting. at bedside. Telemetry reviewed, no further episodes of tachyarrhythmia. Medical Exam Vital signs and Labs for Last 24 Hours: Vital Signs Temp Pulse Pulse Resp BP Pulse Ox O2 Del Method 09/26/23 06:33 82 09/26/23 06:33 78 09/26/23 06:33 100 Room Air 09/26/23 06:00 81 20 131/78 100 CPAP 09/26/23 05:00 87 20 146/82 H 100 CPAP 09/26/23 05:00 CPAP 09/26/23 04:00 70 09/26/23 04:00 97.4 F L 86 20 126/82 100 CPAP 09/26/23 04:00 CPAP 09/26/23 03:00 83 20 157/91 H 100 CPAP 09/26/23 03:00 CPAP 09/26/23 02:00 80 20 158/92 H 100 CPAP 09/26/23 01:00 80 20 137/86 100 CPAP 09/26/23 01:00 CPAP 09/26/23 00:12 78 09/26/23 00:12 84 09/26/23 00:00 80 09/26/23 00:00 97.9 F 81 18 135/82 100 CPAP 09/26/23 00:00 CPAP 09/25/23 23:00 86 18 125/78 100 CPAP 09/25/23 23:00 CPAP 09/25/23 22:00 82 18 159/80 H 100 CPAP 09/25/23 21:00 87 18 144/72 H 100 Room Air 09/25/23 21:00 Room Air 09/25/23 20:00 80 09/25/23 20:00 98.6 F 82 18 158/82 H 100 Room Air 09/25/23 20:00 Room Air 09/25/23 19:13 85 09/25/23 19:13 82 09/25/23 19:12 Room Air 09/25/23 19:00 79 20 152/90 H 100 Room Air 09/25/23 18:00 82 20 132/79 100 Room Air 09/25/23 17:47 77 20 112/69 100 Room Air 09/25/23 17:00 Room Air 09/25/23 17:00 87 20 145/83 H 100 Room Air 09/25/23 16:00 80 09/25/23 16:00 83 100 Room Air 09/25/23 16:00 81 20 110/67 100 Room Air 09/25/23 16:00 98.3 F 09/25/23 15:24 Room Air 09/25/23 15:00 86 20 114/67 100 Room Air 09/25/23 14:30 82 20 119/75 100 Room Air 09/25/23 14:00 83 20 133/75 100 Nasal Cannula 09/25/23 13:55 Nasal Cannula 09/25/23 13:30 84 20 123/77 100 Nasal Cannula 09/25/23 13:25 100 09/25/23 13:00 89 19 150/81 H 100 Mechanical Ventilation 09/25/23 12:30 86 20 144/75 H 100 Mechanical Ventilation 09/25/23 12:00 85 09/25/23 12:00 98.2 F 88 20 126/60 100 Mechanical Ventilation 09/25/23 12:00 88 100 Mechanical Ventilation 09/25/23 12:00 100.2 F H 09/25/23 11:30 85 22 116/64 100 Mechanical Ventilation 09/25/23 11:07 84 22 119/66 100 Mechanical Ventilation 09/25/23 11:00 Mechanical Ventilation 09/25/23 10:55 106 H 09/25/23 10:55 108 H 09/25/23 10:30 92 H 22 133/63 100 Mechanical Ventilation 09/25/23 10:30 09/25/23 10:00 97 H 22 159/80 H 100 Mechanical Ventilation 09/25/23 10:00 09/25/23 09:30 92 H 22 135/70 100 Mechanical Ventilation 09/25/23 09:00 81 22 108/48 L 100 Mechanical Ventilation 09/25/23 09:00 Mechanical Ventilation 09/25/23 08:30 111 H 22 103/48 L 100 Mechanical Ventilation 09/25/23 08:00 91 H 22 107/51 L 100 Mechanical Ventilation 09/25/23 08:00 110 H 100 Nasal Cannula 09/25/23 08:00 100 09/25/23 08:00 80 09/25/23 08:00 99.1 F 09/25/23 07:45 99.1 F 84 22 110/48 L 100 Mechanical Ventilation O2 Flow Rate FiO2 09/26/23 06:33 09/26/23 06:33 09/26/23 06:33 09/26/23 06:00 09/26/23 05:00 09/26/23 05:00 09/26/23 04:00 09/26/23 04:00 09/26/23 04:00 09/26/23 03:00 09/26/23 03:00 09/26/23 02:00 09/26/23 01:00 09/26/23 01:00 09/26/23 00:12 09/26/23 00:12 09/26/23 00:00 09/26/23 00:00 09/26/23 00:00 09/25/23 23:00 09/25/23 23:00 09/25/23 22:00 09/25/23 21:00 09/25/23 21:00 09/25/23 20:00 09/25/23 20:00 09/25/23 20:00 09/25/23 19:13 09/25/23 19:13 09/25/23 19:12 09/25/23 19:00 09/25/23 18:00 09/25/23 17:47 09/25/23 17:00 09/25/23 17:00 09/25/23 16:00 09/25/23 16:00 09/25/23 16:00 09/25/23 16:00 09/25/23 15:24 09/25/23 15:00 09/25/23 14:30 09/25/23 14:00 2 09/25/23 13:55 09/25/23 13:30 2 09/25/23 13:25 09/25/23 13:00 35 09/25/23 12:30 35 09/25/23 12:00 09/25/23 12:00 35 09/25/23 12:00 35 09/25/23 12:00 09/25/23 11:30 35 09/25/23 11:07 35 09/25/23 11:00 09/25/23 10:55 09/25/23 10:55 09/25/23 10:30 35 05/10/24 10:30 35 09/25/23 10:00 35 09/25/23 10:00 35 09/25/23 09:30 35 09/25/23 09:00 35 09/25/23 09:00 09/25/23 08:30 35 09/25/23 08:00 35 09/25/23 08:00 35 09/25/23 08:00 35 09/25/23 08:00 09/25/23 08:00 09/25/23 07:45 35 Intake and Output 09/25/23 09/25/23 09/26/23 15:59 23:59 07:59 Intake Total 1134.796 / 3237.535 333.032 / 3237.535 82 / 82 Output Total 2019 Balance -885.204 / -3832.465 -1366.968 / -3832.465 -1918 / -1918 Intake: Intake, Oral Amount 0 / 0 Intake, Total IV Amount 1134.796 / 3237.535 333.032 / 3237.535 82 / 82 Amiodarone HCl 900 mg In 76 / 471 Dextrose 5 % in Water 500 ml @ 1 MG/MIN 34.533 mls/hr IV . Q15H1M ANK[facility] Rx#:[id number] Ceftriaxone Sodium 1 gm In 0.9 48 / 48 % Sodium Chloride 50 ml @ 100 mls/hr IV 0900 ANK[facility] Rx#:[id number] Doxycycline Hyclate 100 mg In 0 293 / 293 .9 % Sodium Chloride 250 ml @ 166.667 mls/hr IV 1100,2300 ANK[facility] Rx#:[id number] KCl 20mEq/100ml 100 ml @ 50 mls 198 / 198 /hr IV Q2H [facility] Rx#:[id number] Magnesium Sulfate in Water 2 gm 50 / 100 50 / 100 In 50 ml @ 50 mls/hr IV Q8H ANK[facility] Rx#:[id number] Output: Output, Urine Amount 2019 [id number] Other: Number of Unmeasured Voids 0 0 0 Weight 104.8 kg 101.559 kg Patient Weight 09/26/23 23:59 Weight 101.559 kg Laboratory Results - last 24 hr 09/25/23 05:31: Sodium 135 L, Potassium 2.7 L* D, Chloride 91 L, Carbon Dioxide 34 H, Anion Gap 12.7, BUN 56 H, Creatinine 1.60 H, Estimated Creat Clear 71, Estimated GFR 44 L, Est GFR ( Amer) 53 L D, Glucose 105 H D, Calcium 8.6, Magnesium 1.3 L D, Total Bilirubin 1.5 H, AST 24, ALT 13, Alkaline Phosphatase 91, Total Protein 6.2 L, Albumin 3.1 L D, Globulin 3.1, Albumin/Globulin Ratio 1.0 L 09/25/23 12:00: Specimen Source Left radial, O2 % 35, ABG pH 7.52 H, ABG pCO2 35.8, ABG pO2 75.8 L, ABG HCO3 28.7 H, ABG Total CO2 29.8 H, ABG O2 Saturation 95, ABG Base Excess 5.9 H, Ronnie Test Acceptable, PEEP 5 09/25/23 12:07: POC Glucose 153 H 09/25/23 16:31: POC Glucose 145 H 09/25/23 18:30: Sodium 137, Potassium 3.7 D, Chloride 93 L, Carbon Dioxide 37 H, Anion Gap 10.7, BUN 47 H, Creatinine 1.80 H, Estimated Creat Clear 63, Estimated GFR 38 L, Est GFR ( Amer) 46 L, Glucose 141 H D, Calcium 9.1, Magnesium 2.1 D 09/25/23 21:05: POC Glucose 163 H 09/26/23 06:09: POC Glucose 152 H 09/26/23 06:29: WBC 7.5, RBC 4.84, Hgb 11.4 L, Hct 38.2 L, MCV 78.8 L, MCH 23.5 L, MCHC 29.8 L, RDW 21.4 H, Plt Count 143, MPV 10.5 H, Neut % (Auto) 70.9, Lymph % (Auto) 16.6, Jefferson % (Auto) 11.2 H, Eos % (Auto) 0.5, Baso % (Auto) 0.8, Neut # (Auto) 5.3, Lymph # (Auto) 1.3, Jefferson # (Auto) 0.8, Eos # (Auto) 0.0, Baso # (Auto) 0.1, Sodium 137, Potassium 3.4 L, Chloride 92 L, Carbon Dioxide 36 H, Anion Gap 12.4, BUN 46 H, Creatinine 1.50 H, Estimated Creat Clear 73, Estimated GFR 47 L, Est GFR ( Amer) 57 L D, Glucose 154 H, Calcium 8.8, Phosphorus 4.3, Magnesium 1.8 D, Total Bilirubin 1.7 H, AST 23, ALT 13, Alkaline Phosphatase 100, Total Protein 7.0, Albumin 3.6 D, Globulin 3.4 H, Albumin/Globulin Ratio 1.1 I & O for Labs for Last 24 Hours: Intake & Output 09/23/23 09/24/23 09/25/23 09/26/23 23:59 23:59 23:59 23:59 Intake Total 135 / 135 1345.099 / 4947.405 1541.535 / 3237.535 82 / 82 Output Total 625 / 625 6150 / 6475 6770 / 7070 1999 / 1999 Balance -490 / -490 -4804.901 / -5129.901 -3532.465 / -3832.465 -1918 / -1918 Weight 106.367 kg 109.883 kg 104.8 kg 101.559 kg Microbiology Reports for the Last 24 Hours: Microbiology 09/25/23 10:05 Sputum - Endotracheal Tube Aspirate Gram Stain - Final Constitutional: Present no acute distress, obese, chronically ill appearing and cooperative Head: Present atraumatic and normocephalic ENT: Present normal exam Comment:: Right IJ in place Respiratory: Present prolonged expiratory phase, rhonchi, crackles and normal respiratory effort; Absent wheezes Cardiac: Present Reg Rate and Rhythm GI: Present soft and normal bowel sounds; Absent distention or tenderness Comment:: Mendoza in place Extremities: Present normal inspection, full ROM and edema (wrinkling the legs, 1+ edema bilaterally to knees) Skin: Present intact; Absent erythema Comment:: Stasis dermatitis of lower extremities with intermittent blisters Neuro: Present alert, awake, oriented x 3 and moves all extremities Assessment and Plan *Assessment and plan (1) Cardiogenic shock: Status: Acute Category: Medical Code(s): R57.0 - Cardiogenic shock (2) Acute on chronic heart failure with reduced ejection fraction and diastolic dysfunction: Status: Acute Category: Medical Code(s): I50.43 - Acute on chronic combined systolic (congestive) and diastolic (congestive) heart failure (3) Acute respiratory failure with hypoxia: Status: Acute Category: Medical Code(s): J96.01 - Acute respiratory failure with hypoxia (4) On mechanically assisted ventilation: Status: Acute Category: Medical Code(s): Z99.11 - Dependence on respirator [ventilator] status (5) Pneumonia: Status: Acute Category: Medical Code(s): J18.9 - Pneumonia, unspecified organism (6) Acute kidney injury: Status: Acute Category: Medical Code(s): N17.9 - Acute kidney failure, unspecified (7) Pulmonary edema with congestive heart failure: Status: Acute Category: Medical Code(s): I50.1 - Left ventricular failure, unspecified (8) Bilateral leg edema: Status: Acute Category: Medical Code(s): R60.0 - Localized edema (9) Tobacco abuse: Status: Chronic Category: Medical Code(s): Z72.0 - Tobacco use (10) Hyperlipidemia: Status: Chronic Qualifiers: Hyperlipidemia type: unspecified Qualified Code(s): E78.5 - Hyperlipidemia, unspecified Category: Medical Code(s): E78.5 - Hyperlipidemia, unspecified (11) History of coronary artery bypass graft: Status: Acute Category: Surgical Code(s): Z95.1 - Presence of aortocoronary bypass graft (12) Depression: Status: Chronic Qualifiers: Active/Remission status: currently active Depression Type: major depressive disorder Major depression episode severity: moderate Major depression recurrence: single episode Qualified Code(s): F32.1 - Major depressive disorder, single episode, moderate Category: Medical Code(s): F32.A - Depression, unspecified (13) Diabetes mellitus: Status: Chronic Qualifiers: Diabetes mellitus complication status: with hyperglycemia Diabetes mellitus assisted insulin use: without ocean transportation intermediary use Diabetes mellitus type: type 2 Qualified Code(s): E11.65 - Type 2 diabetes mellitus with hyperglycemia Category: Medical Code(s): E11.9 - Type 2 diabetes mellitus without complications Plan 63-year-old male with history of heart failure, presented with swelling in his legs and shortness of breath. Found to have GITA and volume overload. Discussed case with ER physician, request admission for diuresis and further management of kidney injury. Medicine agreed to admit. Initiated on Bumex drip. Had poor response. Taken for right heart cath this morning, decompensated necessitating mechanical ventilation and intubation. Patient has done well overnight. Diuresing well, -10 L in in the past 48 hours. Has weaned to room air. Did well overnight. Blood pressure improving. Seeing improvement in kidney function labs. at bedside. Continues to require ICU level care this morning until his milrinone drip is turned off. Will de-escalate to stepdown level of care at that time. Cardiology and pulmonology assisting with care. Problems addressed as follows: Cardiogenic shock Acute on chronic heart failure with reduced ejection fraction Volume overload -Discussed case with cardiology, continue Bumex drip today. Discontinue milrinone. Initiate Entresto twice daily this evening. -Diuresing well, -10.7 L since admission, -3.5 L yesterday. Will continue to leave Mendoza in while he is on Bumex drip. -Plan to transition to oral Bumex tomorrow. -Discontinued amiodarone overnight -Echo showing severely reduced LVEF approximately 10%. Grade 2 diastolic dysfunction. Elevated RVSP of 50 to 55 mmHg. Will consider repeat right heart cath on Thursday. -Holding beta-rodrigo in the setting of cardiogenic shock. Continue aspirin and Plavix -Continue ceftriaxone 1 g daily and doxycycline 100 mg twice daily. Sputum cultures pending. - Pantoprazole 40 mg IV nightly GITA -Baseline creatinine approximately 1. Creatinine elevated on morning labs at 1.5, BUN 46. repeat CBC, CMP, magnesium ordered for the morning. -Magnesium 1.8, potassium 3.4. Continue oral replacement. -Caution with nephrotoxins, will renally dose medications Diabetes: A1c obtained, elevated at 8, on glimepiride, Januvia, and metformin at home. Continue sliding scale insulin with fingersticks ACHS -Received 4 units of sliding scale yesterday. Continue home gabapentin renally dosed at 300 mg twice daily Continue home oxycodone 10 mg 4 times a day as needed Continue pantoprazole (formulary conversion) for GERD Full code Heparin subcu 5000 units twice daily ICU/Critical care attestation This patient is critically ill with 30 minutes devoted solely to this patient managing life/organ supporting interventions that required physician assessment. This includes time spent making adjustments in ventilator settings, IV fluid administration, titration of pressors, adjustments of medications, discussion of patient with consultants and other care providers as well as updating patient and/or family (if patient by virtue of his/her condition is unable to participate in decision making). This does not include time spent performing separately billed procedures. Time is not concurrent with that of other providers.
[2023-09-26] MEDS: CEFTRIAXONE SODIUM 1 GM in 0.9 % SODIUM CHLORIDE 50 ML IV (09:16)
[2023-09-26] MEDS: GABAPENTIN 300MG CAPSULE 300 MG PO (09:16)
[2023-09-26] MEDS: POTASSIUM CHLORIDE 20MEQ/15ML UDC 20 MEQ PO (09:16)
[2023-09-26] MEDS: MAGNESIUM OXIDE 400MG TABLET 400 MG PO ×2 (09:16→21:29)
[2023-09-26] MEDS: HEPARIN SODIUM 5,000 UNIT/ML VIAL 5000 UNIT SQ ×2 (09:16→21:29)
[2023-09-26] MEDS: CLOPIDOGREL 75MG TAB 75 MG PO (09:16)
[2023-09-26] MEDS: DOXYCYCLINE HYCLATE 100 MG in 0.9 % SODIUM CHLORIDE 250 ML 166.667 MG IV ×2 (12:11→22:11)
[2023-09-26] MEDS: POLYETHYLENE GLYCOL 3350 17 GM PACKET PO (12:16)
[2023-09-26 12:27] LABS: POC Glucose,Bedside 424 (70-110)
[2023-09-26] MEDS: POTASSIUM CHLORIDE 20MEQ TAB 20 MEQ PO ×2 (13:54→21:30)
--- NOTE | 2023-09-26 15:24 | PC.NURSE ---
1430 pt requested to return to bed. pt assisted back to bed with assist x 2. pt turned to left side as pt states his r hip is sore.
--- NOTE | 2023-09-26 16:12 | PC.NURSE ---
pt was up to the chair from approx 1100 to 1430 this shift. pt was able to stand and pivot to and from chair/bed with assist x 2. pt is a/ox4 with occasional issues remembering short term conversations. pt is repositioned q2h by staff, if pt becomes uncomfortable he asks his to remove the wedge what was placed. nad noted. pt currently on bumex drip, urine is clear and yellow draining in da silva catheter. milrinone drip was stopped at 1030, per aung Fleming for pt to be transferred from ICU to [place] level care. 1620
[2023-09-26 16:47] LABS: POC Glucose,Bedside 285 (70-110)
[2023-09-26] MEDS: SACUBITRIL/VALSARTAN 24-26MG TABLET 1 EACH PO (18:15)
[2023-09-26 20:26] LABS: POC Glucose,Bedside 174 (70-110)
[2023-09-26] MEDS: SODIUM CHLORIDE 0.9% 10ML VIAL 10 ML IV (21:29)
[2023-09-26] MEDS: ACETAMINOPHEN 325MG TAB 650 MG PO (21:29)
[2023-09-26] MEDS: SENNOSIDES 8.6MG/DOCUSATE 50MG TABLET 1 TAB PO (21:29)
[2023-09-26] MEDS: PANTOPRAZOLE 40MG VIAL 40 MG IV (21:29)
[2023-09-26] MEDS: GABAPENTIN 300MG CAPSULE 600 MG PO (21:29)
[2023-09-27] VITALS (15 sets, daily range): BP systolic 110–147; BP diastolic 66–93; PULSE 71–90; RESP 15–20; TEMP 36.5–37.3; O2SAT 93–100; BMI 30.9
[2023-09-27] MEDS: BUMETANIDE 10 MG in 0.9 % SODIUM CHLORIDE 60 ML 20 MG IV ×2 (01:45→06:32)
[2023-09-27] MEDS: OXYCODONE 10MG W/APAP 325MG TABLET 1 EACH PO ×4 (04:08→23:07)
--- NOTE | 2023-09-27 06:04 | PC.NURSE ---
Addendum entered by Adry Carbajal RN 09/27/23 06:27: Pt has had a total of 6450ml of UO during this shift. Original Note: Pt A/Ox4. Pt has c/o chronic back pain 2x during shift requiring PRN pain medication. Mendoza catheter in place with large amount of urine output this shift. Urine pale yellow, clear. Bumex gtt @20ml/hr. Pt has 1+ edema BLE. Lung bases diminished. Pt has tolerated CPAP well t/o night. Pt has been encouraged and assisted to reposition in bed t/o shift. Call light within reach. Bed alarm on for pt safety.
[2023-09-27] MEDS: IPRATROPIUM/ALBUTEROL 3 ML NEB IH ×4 (06:12→23:12)
[2023-09-27] MEDS: humaLOG 100 UNITS/ML 3ML VIAL (SSI) SQ ×4 (06:34→20:53)
[2023-09-27 06:44] LABS: POC Glucose,Bedside 229 (70-110)
[2023-09-27 06:59] LABS: Alanine Aminotransferase 13 U/L (12-78); Albumin Level 3.5 g/dl (3.5-5.0); Alkaline Phosphatase 95 U/L (38-126); Aspartate Amino Transferase 20 U/L (17-59); Bilirubin,Total 1.5 mg/dl (0.2-1.3); Blood Urea Nitrogen 38 mg/dl (9-20); Calcium 8.9 mg/dl (8.4-10.2); Carbon Dioxide 38 mmol/L (22.0-30.0); Chloride 93 mmol/L (98-107); Creatinine Clearance Estimated 82 mL/min (50-200); Estimated Glomerular Filt Rate 56 ml/min (>60); GFR (African American) 68 ML/MIN (>60); Globulin 3.5 g/dL (1.3-3.2); Glucose 221 mg/dl (74-100); Potassium 3.2 mmoL/L (3.5-5.1)
[2023-09-27 07:17] LABS: Basophils % 0.6 % (0.1-2.0); Eosinophils # 0.1 K/mm3 (0.0-0.4); Eosinophils % 1.1 % (0.1-12.0); Lymphocytes # 1.1 K/mm3 (0.7-4.5); Lymphocytes % 16.9 % (10-50); Mean Corpuscular HGB Conc 29.3 g/dL (31.8-35.4); Mean Corpuscular Hemoglobin 23.2 pg (27.0-31.2); Mean Corpuscular Volume 79.4 fl (80-94); Mean Platelet Volume 10.8 fl (7.4-10.4); Monocytes # 0.5 K/mm3 (0.1-1.0); Monocytes % 8.1 % (1.7-9.3); Neutrophils # 4.7 K/mm3 (1.8-7.8); Neutrophils % 73.3 % (37.0-80.0); Platelet Count 158 K/mm3 (142-424); Red Blood Count 5.17 M/mm3 (4.60-6.20); Red Cell Distribution Width 21.3 % (11.5-17.5); White Blood Count 6.5 K/mm3 (4.8-10.8)
[2023-09-27 07:23] LABS: Anion Gap 10.2 mEq/L (5-15); Sodium 138 mmol/L (136-145)
[2023-09-27] MEDS: CEFTRIAXONE SODIUM 1 GM in 0.9 % SODIUM CHLORIDE 50 ML IV (08:09)
[2023-09-27] MEDS: SACUBITRIL/VALSARTAN 24-26MG TABLET 1 EACH PO (08:10)
[2023-09-27] MEDS: CLOPIDOGREL 75MG TAB 75 MG PO (08:10)
--- NOTE | 2023-09-27 08:10 | EXP.ACUTE.PN ---
Subjective *Date: 09/27/23 *Time: 11:11 Interval history: Patient is afebrile and on room air this morning. Leg pain better since getting up to bedside chair. Significant improvement in edema. Down 17 L since admission. Tolerating p.o. intake. Still no bowel movement. Denies any chest pain, nausea, vomiting. at bedside. Telemetry reviewed, no further episodes of tachyarrhythmia. Medical Exam Vital signs and Labs for Last 24 Hours: Vital Signs Temp Pulse Pulse Resp BP Pulse Ox O2 Del Method 09/27/23 07:40 80 100 Room Air 09/27/23 06:44 Room Air 09/27/23 06:15 82 19 147/80 H 100 CPAP 09/27/23 06:12 72 09/27/23 06:12 80 09/27/23 06:12 94 L Room Air 09/27/23 04:54 CPAP 09/27/23 04:00 81 09/27/23 04:00 98.0 F 83 15 142/80 H 100 CPAP 09/27/23 04:00 100 CPAP 09/27/23 02:54 CPAP 09/27/23 02:00 74 19 145/84 H 100 CPAP 09/27/23 01:00 CPAP 09/27/23 00:10 88 09/27/23 00:10 89 09/27/23 00:00 76 09/27/23 00:00 99.2 F 71 20 124/78 100 CPAP 09/26/23 23:00 CPAP 09/26/23 22:00 89 20 169/96 H 100 Room Air 09/26/23 21:00 Room Air 09/26/23 20:00 81 09/26/23 20:00 97.7 F 84 20 168/90 H 100 Room Air 09/26/23 20:00 Room Air 09/26/23 19:03 81 09/26/23 19:03 92 H 09/26/23 18:44 Room Air 09/26/23 18:42 85 20 138/73 100 Room Air 09/26/23 18:00 89 20 155/113 H 100 Room Air 09/26/23 17:05 Room Air 09/26/23 17:00 85 20 146/93 H 100 Room Air 09/26/23 16:00 90 09/26/23 16:00 81 100 Room Air 09/26/23 16:00 84 20 161/100 H 100 Room Air 09/26/23 15:48 98.4 F 09/26/23 15:00 84 16 148/89 H 100 Room Air 09/26/23 15:00 Room Air 09/26/23 14:00 88 17 147/94 H 100 Room Air 09/26/23 13:00 Room Air 09/26/23 13:00 81 18 127/77 100 Room Air 09/26/23 12:00 90 09/26/23 12:00 82 100 Room Air 09/26/23 12:00 86 17 137/63 100 Room Air 09/26/23 11:32 98.0 F 93 H 16 128/86 100 09/26/23 11:06 92 H 09/26/23 11:06 89 09/26/23 11:06 100 Room Air 09/26/23 11:00 Room Air 09/26/23 10:00 97 H 18 152/91 H 100 Room Air 09/26/23 09:32 Room Air 09/26/23 09:26 86 18 130/94 H 100 Room Air 09/26/23 08:30 90 18 160/109 H 99 Room Air Intake and Output 09/26/23 09/27/23 09/27/23 23:59 07:59 15:59 Intake Total 370 / 1720.510 181.334 / 181.334 Output Total 1969 / 6769 4825 / 4825 Balance -1600 / -5049.490 -4643.666 / -4643.666 Intake: Intake, Oral Amount 270 / 750 Intake, Total IV Amount 100 / 970.510 181.334 / 181.334 Output: Output, Urine Amount 1969 2875 / 2875 Output, Urine Amount (Catheter) 1949 Mendoza 1948 Other: Number of Unmeasured Voids 0 0 Weight 97.976 kg Patient Weight 09/27/23 23:59 Weight 97.976 kg Laboratory Results - last 24 hr 09/26/23 12:14: POC Glucose 424 H* 09/26/23 15:57: POC Glucose 285 H 09/26/23 20:18: POC Glucose 174 H 09/27/23 06:32: WBC 6.5, RBC 5.17, Hgb 12.0 L, Hct 41.0 L, MCV 79.4 L, MCH 23.2 L, MCHC 29.3 L, RDW 21.3 H, Plt Count 158, MPV 10.8 H, Neut % (Auto) 73.3, Lymph % (Auto) 16.9, Benzie % (Auto) 8.1, Eos % (Auto) 1.1, Baso % (Auto) 0.6, Neut # (Auto) 4.7, Lymph # (Auto) 1.1, Benzie # (Auto) 0.5, Eos # (Auto) 0.1, Baso # (Auto) 0.0, Sodium 138, Potassium 3.2 L, Chloride 93 L, Carbon Dioxide 38 H, Anion Gap 10.2, BUN 38 H, Creatinine 1.30 H, Estimated Creat Clear 82, Estimated GFR 56 L, Est GFR ( Amer) 68, Glucose 221 H, Calcium 8.9, Total Bilirubin 1.5 H, AST 20, ALT 13, Alkaline Phosphatase 95, Total Protein 7.0, Albumin 3.5, Globulin 3.5 H, Albumin/Globulin Ratio 1.0 L 09/27/23 06:34: POC Glucose 229 H I & O for Labs for Last 24 Hours: Intake & Output 09/24/23 09/25/23 09/26/23 09/27/23 23:59 23:59 23:59 23:59 Intake Total 1345.099 / 7012.432 8069.535 / 3237.535 1720.510 / 1720.510 181.334 / 181.334 Output Total 6150 / 6475 6770 / 7070 5845 / 6770 4825 / 4825 Balance -4804.901 / -5129.901 -3532.465 / -3832.465 -4124.490 / -5049.490 -4643.666 / -4643.666 Weight 109.883 kg 104.8 kg 101.559 kg 97.976 kg Constitutional: Present no acute distress, obese, chronically ill appearing and cooperative Head: Present atraumatic and normocephalic ENT: Present normal exam Comment:: Right IJ in place Respiratory: Present prolonged expiratory phase, rhonchi, crackles and normal respiratory effort; Absent wheezes Cardiac: Present Reg Rate and Rhythm GI: Present soft and normal bowel sounds; Absent distention or tenderness Comment:: Mendoza in place Extremities: Present normal inspection, full ROM and edema (1+ in feet. No edema in legs. Wrinkling of skin.) Skin: Present intact; Absent erythema Comment:: Stasis dermatitis of lower extremities with intermittent blisters Neuro: Present alert, awake, oriented x 3 and moves all extremities Assessment and Plan *Assessment and plan (1) Cardiogenic shock: Status: Acute Category: Medical Code(s): R57.0 - Cardiogenic shock (2) Acute on chronic heart failure with reduced ejection fraction and diastolic dysfunction: Status: Acute Category: Medical Code(s): I50.43 - Acute on chronic combined systolic (congestive) and diastolic (congestive) heart failure (3) Acute respiratory failure with hypoxia: Status: Acute Category: Medical Code(s): J96.01 - Acute respiratory failure with hypoxia (4) On mechanically assisted ventilation: Status: Acute Category: Medical Code(s): Z99.11 - Dependence on respirator [ventilator] status (5) Pneumonia: Status: Acute Category: Medical Code(s): J18.9 - Pneumonia, unspecified organism (6) Acute kidney injury: Status: Acute Category: Medical Code(s): N17.9 - Acute kidney failure, unspecified (7) Pulmonary edema with congestive heart failure: Status: Acute Category: Medical Code(s): I50.1 - Left ventricular failure, unspecified (8) Bilateral leg edema: Status: Acute Category: Medical Code(s): R60.0 - Localized edema (9) Tobacco abuse: Status: Chronic Category: Medical Code(s): Z72.0 - Tobacco use (10) Hyperlipidemia: Status: Chronic Qualifiers: Hyperlipidemia type: unspecified Qualified Code(s): E78.5 - Hyperlipidemia, unspecified Category: Medical Code(s): E78.5 - Hyperlipidemia, unspecified (11) History of coronary artery bypass graft: Status: Acute Category: Surgical Code(s): Z95.1 - Presence of aortocoronary bypass graft (12) Depression: Status: Chronic Qualifiers: Depression Type: major depressive disorder Major depression recurrence: single episode Active/Remission status: currently active Major depression episode severity: moderate Qualified Code(s): F32.1 - Major depressive disorder, single episode, moderate Category: Medical Code(s): F32.A - Depression, unspecified (13) Diabetes mellitus: Status: Chronic Qualifiers: Diabetes mellitus type: type 2 Diabetes 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 Found to have GITA and volume overload. Discussed case with ER physician, request admission for diuresis and further management of kidney injury. Medicine agreed to admit. Initiated on Bumex drip. Had poor response. Taken for right heart cath this morning, decompensated necessitating mechanical ventilation and intubation. Patient has done well overnight. Diuresing well, -17 L in since admission. On room air. Blood pressure within normal range. Seeing improvement in kidney function labs. at bedside. Continues to require inpatient care. Awaiting therapy eval, will likely need placement versus home with home health. Problems addressed as follows: Cardiogenic shock Acute on chronic heart failure with reduced ejection fraction Volume overload -Discussed case with cardiology, will discontinue Bumex drip, transition to Bumex 2 mg IV twice daily. Continue Entresto 24/26 mg twice daily. -Diuresing well, -17 L since admission, -4 L yesterday. Discontinue Mendoza -Echo showing severely reduced LVEF approximately 10%. Grade 2 diastolic dysfunction. Elevated RVSP of 50 to 55 mmHg. Will consider repeat right heart cath on Thursday. -Holding beta-rodrigo in the setting of cardiogenic shock. Continue aspirin and Plavix -Continue ceftriaxone 1 g daily and doxycycline 100 mg twice daily. Sputum cultures pending. -Pantoprazole 40 mg IV nightly GITA -Baseline creatinine approximately 1. Creatinine improving, 1.3 on morning labs, BUN 38. repeat CBC, CMP, magnesium ordered for the morning. -Potassium 3.2, increase oral replacement to 40 mEq 3 times a day. -Caution with nephrotoxins, will renally dose medications Diabetes: A1c elevated at 8, on glimepiride, Januvia, and metformin at home - Continue sliding scale insulin with fingersticks ACHS -Received 22 units of sliding scale yesterday. Continue home gabapentin renally dosed at 300 mg twice daily Continue home oxycodone 10 mg 4 times a day as needed Continue pantoprazole (formulary conversion) for GERD Full code Heparin subcu 5000 units twice daily Diabetic diet.
[2023-09-27] MEDS: POTASSIUM CHLORIDE 20MEQ TAB 40 MEQ PO ×3 (08:11→20:53)
[2023-09-27] MEDS: SENNOSIDES 8.6MG/DOCUSATE 50MG TABLET 1 TAB PO ×2 (08:11→20:53)
[2023-09-27] MEDS: MAGNESIUM OXIDE 400MG TABLET 400 MG PO ×2 (08:11→20:53)
[2023-09-27] MEDS: GABAPENTIN 300MG CAPSULE 600 MG PO ×3 (08:11→20:53)
[2023-09-27] MEDS: POLYETHYLENE GLYCOL 3350 17 GM PACKET PO ×3 (08:14→13:58)
[2023-09-27 08:15] LABS: Magnesium 1.4 mg/dl (1.6-2.3)
[2023-09-27] MEDS: HEPARIN SODIUM 5,000 UNIT/ML VIAL 5000 UNIT SQ ×2 (08:27→20:53)
--- NOTE | 2023-09-27 09:17 | EXP.PHA.PN ---
Subjective *Date: 09/27/23 *Time: 09:17 Medical Exam Vital signs and Labs for Last 24 Hours: Vital Signs Temp Pulse Pulse Resp BP Pulse Ox O2 Del Method 09/27/23 08:00 97.9 F 09/27/23 07:45 90 09/27/23 07:40 80 100 Room Air 09/27/23 06:44 Room Air 09/27/23 06:15 82 19 147/80 H 100 CPAP 09/27/23 06:12 72 09/27/23 06:12 80 09/27/23 06:12 94 L Room Air 09/27/23 04:54 CPAP 09/27/23 04:00 81 09/27/23 04:00 98.0 F 83 15 142/80 H 100 CPAP 09/27/23 04:00 100 CPAP 09/27/23 02:54 CPAP 09/27/23 02:00 74 19 145/84 H 100 CPAP 09/27/23 01:00 CPAP 09/27/23 00:10 88 09/27/23 00:10 89 09/27/23 00:00 76 09/27/23 00:00 99.2 F 71 20 124/78 100 CPAP 09/26/23 23:00 CPAP 09/26/23 22:00 89 20 169/96 H 100 Room Air 09/26/23 21:00 Room Air 09/26/23 20:00 81 09/26/23 20:00 97.7 F 84 20 168/90 H 100 Room Air 09/26/23 20:00 Room Air 09/26/23 19:03 81 09/26/23 19:03 92 H 09/26/23 18:44 Room Air 09/26/23 18:42 85 20 138/73 100 Room Air 09/26/23 18:00 89 20 155/113 H 100 Room Air 09/26/23 17:05 Room Air 09/26/23 17:00 85 20 146/93 H 100 Room Air 09/26/23 16:00 90 09/26/23 16:00 81 100 Room Air 09/26/23 16:00 84 20 161/100 H 100 Room Air 09/26/23 15:48 98.4 F 09/26/23 15:00 84 16 148/89 H 100 Room Air 09/26/23 15:00 Room Air 09/26/23 14:00 88 17 147/94 H 100 Room Air 09/26/23 13:00 Room Air 09/26/23 13:00 81 18 127/77 100 Room Air 09/26/23 12:00 90 09/26/23 12:00 82 100 Room Air 09/26/23 12:00 86 17 137/63 100 Room Air 09/26/23 11:32 98.0 F 93 H 16 128/86 100 09/26/23 11:06 92 H 09/26/23 11:06 89 09/26/23 11:06 100 Room Air 09/26/23 11:00 Room Air 09/26/23 10:00 97 H 18 152/91 H 100 Room Air 09/26/23 09:32 Room Air 09/26/23 09:26 86 18 130/94 H 100 Room Air Intake and Output 09/26/23 09/27/23 09/27/23 23:59 07:59 15:59 Intake Total 370 / 1720.510 181.334 / 614.334 433 / 614.334 Output Total 196970 4825 / 5175 350 / 5175 Balance -1600 / -5049.490 -4643.666 / -4560.666 83 / -4560.666 Intake: Intake, Oral Amount 270 / 750 433 / 433 Intake, Total IV Amount 100 / 970.510 181.334 / 181.334 Output: Output, Urine Amount 1969 2875 / 3225 350 / 3225 Output, Urine Amount (Catheter) 1949 1950 Mendoza 1948 Other: Number of Unmeasured Voids 0 0 Weight 97.976 kg Patient Weight 09/27/23 23:59 Weight 97.976 kg Laboratory Results - last 24 hr 09/26/23 12:14: POC Glucose 424 H* 09/26/23 15:57: POC Glucose 285 H 09/26/23 20:18: POC Glucose 174 H 09/27/23 06:32: WBC 6.5, RBC 5.17, Hgb 12.0 L, Hct 41.0 L, MCV 79.4 L, MCH 23.2 L, MCHC 29.3 L, RDW 21.3 H, Plt Count 158, MPV 10.8 H, Neut % (Auto) 73.3, Lymph % (Auto) 16.9, [place] % (Auto) 8.1, Eos % (Auto) 1.1, Baso % (Auto) 0.6, Neut # (Auto) 4.7, Lymph # (Auto) 1.1, [place] # (Auto) 0.5, Eos # (Auto) 0.1, Baso # (Auto) 0.0, Sodium 138, Potassium 3.2 L, Chloride 93 L, Carbon Dioxide 38 H, Anion Gap 10.2, BUN 38 H, Creatinine 1.30 H, Estimated Creat Clear 82, Estimated GFR 56 L, Est GFR ( Amer) 68, Glucose 221 H, Calcium 8.9, Magnesium 1.4 L D, Total Bilirubin 1.5 H, AST 20, ALT 13, Alkaline Phosphatase 95, Total Protein 7.0, Albumin 3.5, Globulin 3.5 H, Albumin/Globulin Ratio 1.0 L 09/27/23 06:34: POC Glucose 229 H I & O for Labs for Last 24 Hours: Intake & Output 09/24/23 09/25/23 09/26/23 09/27/23 23:59 23:59 23:59 23:59 Intake Total 1345.099 / 0651.200 5849.535 / 3237.535 1720.510 / 1720.510 614.334 / 614.334 Output Total 6150 / 6475 6770 / 7070 5845 / 6770 5175 / 5175 Balance -4804.901 / -5129.901 -3532.465 / -3832.465 -4124.490 / -5049.490 -4560.666 / -4560.666 Weight 109.883 kg 104.8 kg 101.559 kg 97.976 kg The patient's infection will respond to the chosen ABx?: Yes (SPUTUM PENDING, WBC 6.5, AFEBRILE OVER 24 HR.) Is the patient receiving the right drug, dose, and route?: Yes Could a more targeted ABx be ordered?: No
[2023-09-27] MEDS: BUMETANIDE 1MG/4ML VIAL 2 MG IV ×2 (09:34→16:55)
[2023-09-27] MEDS: MAGNESIUM SULFATE IN WATER 2 GM/50 ML PIGGYBACK IV (10:35)
[2023-09-27] MEDS: DOXYCYCLINE HYCLATE 100 MG in 0.9 % SODIUM CHLORIDE 250 ML 166.667 MG IV ×2 (11:42→23:07)
[2023-09-27 11:53] LABS: POC Glucose,Bedside 352 (70-110)
--- NOTE | 2023-09-27 16:05 | PC.NURSE ---
Addendum entered by Jenise Torres RN 09/27/23 16:11: pt has been able to transfer himself from a lying to seated position on the side of the bed with no assistance this shift. pt is able to transfer from sit to stand and to the chair with minimal assist x 2 for safety of pt. Original Note: pt has been more active this shift compared to previous days. pt is a/o x 4. this afternoon pt requested his gabapentin be reordered at his home dose. Dr Ivey notified at 1522. pt informed that dosage was initially ordered different r/t his kidney function being abnormal. dosage changed by this afternoon. pt then questioned why his home oxycodone dose was not reordered. it was explained by this RN and md separately that the dose and frequency of medication were ordered the same as how med is taken at home. pt was informed his next dose of oxycodone could be received at approx 1630. pt had no additional questions about his home pain meds. pt has received 3 doses of miralax this shift as well as a senna. pt still has not had a bm. pt and md discussed further options. pt requests to try prune juice before attempting an enema. pt received warm prune juice at 1600. pt has been voiding per urinal since da silva cath was removed this am. urine is clear and yellow. pt has no edema in rle and 1-2+ pitting edema in lle.
[2023-09-27 17:13] LABS: POC Glucose,Bedside 238 (70-110)
[2023-09-27 20:41] LABS: POC Glucose,Bedside 225 (70-110)
[2023-09-27] MEDS: SACUBITRIL/VALSARTAN 24-26MG TABLET 2 EACH PO (20:52)
[2023-09-27] MEDS: PANTOPRAZOLE 40MG TABLET 40 MG PO (20:53)
[2023-09-28] VITALS (24 sets, daily range): BP systolic 124–179; BP diastolic 75–113; PULSE 56–97; RESP 15–20; TEMP 36.3–37.3; O2SAT 86–100; BMI 30.2
--- NOTE | 2023-09-28 04:25 | PC.NURSE ---
Patient has had a great night. Has slept on and off with his home Cpap on. Patient remains AxO and on RA. Patient states he feels like he is doing much better and is excited to hopefully get his Sheath out today. Patient has voided per the urinal and done well with it. patient only complaint has been pain in that right neck from the sheath. No other issues
[2023-09-28] MEDS: humaLOG 100 UNITS/ML 3ML VIAL (SSI) SQ ×4 (05:38→21:09)
[2023-09-28 05:41] LABS: POC Glucose,Bedside 197 (70-110)
[2023-09-28] MEDS: OXYCODONE 10MG W/APAP 325MG TABLET 1 EACH PO ×3 (05:41→22:46)
[2023-09-28] MEDS: IPRATROPIUM/ALBUTEROL 3 ML NEB IH (06:03)
[2023-09-28 06:15] LABS: Basophils % 0.8 % (0.1-2.0); Eosinophils # 0.1 K/mm3 (0.0-0.4); Eosinophils % 2.2 % (0.1-12.0); Hematocrit 39.6 % (42.0-52.0); Hemoglobin 11.8 g/dL (14.1-18.0); Lymphocytes # 1.3 K/mm3 (0.7-4.5); Lymphocytes % 25.3 % (10-50); Mean Corpuscular HGB Conc 29.8 g/dL (31.8-35.4); Mean Corpuscular Hemoglobin 23.9 pg (27.0-31.2); Mean Corpuscular Volume 80.2 fl (80-94); Mean Platelet Volume 10.8 fl (7.4-10.4); Monocytes # 0.6 K/mm3 (0.1-1.0); Monocytes % 10.3 % (1.7-9.3); Neutrophils # 3.2 K/mm3 (1.8-7.8); Neutrophils % 61.3 % (37.0-80.0); Platelet Count 159 K/mm3 (142-424); Red Blood Count 4.94 M/mm3 (4.60-6.20); Red Cell Distribution Width 21.1 % (11.5-17.5); White Blood Count 5.3 K/mm3 (4.8-10.8)
[2023-09-28 06:26] LABS: Alanine Aminotransferase 14 U/L (12-78); Albumin Level 3.4 g/dl (3.5-5.0); Alkaline Phosphatase 101 U/L (38-126); Aspartate Amino Transferase 25 U/L (17-59); Bilirubin,Total 0.9 mg/dl (0.2-1.3); Blood Urea Nitrogen 34 mg/dl (9-20); Calcium 8.8 mg/dl (8.4-10.2); Carbon Dioxide 38 mmol/L (22.0-30.0); Chloride 96 mmol/L (98-107); Creatinine Clearance Estimated 86 mL/min (50-200); Estimated Glomerular Filt Rate 61 ml/min (>60); GFR (African American) 74 ML/MIN (>60); Globulin 3.4 g/dL (1.3-3.2); Glucose 190 mg/dl (74-100); Magnesium 1.5 mg/dl (1.6-2.3); Sodium 139 mmol/L (136-145); Total Protein,Serum 6.8 g/dl (6.3-8.2)
[2023-09-28] MEDS: CEFTRIAXONE SODIUM 1 GM in 0.9 % SODIUM CHLORIDE 50 ML IV (08:18)
[2023-09-28] MEDS: SENNOSIDES 8.6MG/DOCUSATE 50MG TABLET 1 TAB PO ×2 (08:19→21:04)
[2023-09-28] MEDS: GABAPENTIN 600MG TABLET 600 MG PO ×3 (08:19→21:04)
[2023-09-28] MEDS: POTASSIUM CHLORIDE 20MEQ TAB 40 MEQ PO (08:19)
[2023-09-28] MEDS: MAGNESIUM OXIDE 400MG TABLET 400 MG PO ×2 (08:19→21:03)
[2023-09-28] MEDS: CLOPIDOGREL 75MG TAB 75 MG PO (08:19)
[2023-09-28] MEDS: SACUBITRIL/VALSARTAN 24-26MG TABLET 2 EACH PO (08:19)
[2023-09-28] MEDS: POLYETHYLENE GLYCOL 3350 17 GM PACKET PO (08:23)
[2023-09-28] MEDS: BUMETANIDE 1MG/4ML VIAL 2 MG IV ×2 (08:24→16:36)
[2023-09-28] MEDS: HEPARIN SODIUM 5,000 UNIT/ML VIAL 5000 UNIT SQ ×2 (08:33→21:03)
[2023-09-28] MEDS: INSULIN GLARGINE 100 UNITS/ML 3ML FLEXPEN 5 UNIT SQ (08:34)
[2023-09-28] MEDS: MAGNESIUM SULFATE IN WATER 2 GM/50 ML PIGGYBACK IV ×2 (08:38→16:31)
[2023-09-28] MEDS: MINERAL OIL ENEMA 133ML 133 ML RC (09:58)
--- NOTE | 2023-09-28 10:19 | EXP.PULM.PN ---
Subjective *Date: 09/28/23 *Time: 10:19 Interval history: No acute respiratory events overnight. Postextubation tolerating room air well. Denies any new respiratory complaints. Admits significant improvement in his respiratory symptoms. Pulmonology Exam Inpatient Vital signs and Labs for Last 24 Hours: Temp Pulse Resp BP Pulse Ox O2 Del Method O2 Flow Rate 98.1 F 56 L 18 155/78 H 91 L Room Air 2 09/28/23 08:00 09/28/23 08:00 09/28/23 08:00 09/28/23 08:00 09/28/23 08:00 09/28/23 06:47 09/25/23 13:30 FiO2 2 09/25/23 14:00 Laboratory Results - last 24 hr 09/27/23 11:41: POC Glucose 352 H* 09/27/23 16:54: POC Glucose 238 H 09/27/23 20:33: POC Glucose 225 H 09/28/23 05:24: WBC 5.3, RBC 4.94, Hgb 11.8 L, Hct 39.6 L, MCV 80.2, MCH 23.9 L, MCHC 29.8 L, RDW 21.1 H, Plt Count 159, MPV 10.8 H, Neut % (Auto) 61.3, Lymph % (Auto) 25.3, Sebastian % (Auto) 10.3 H, Eos % (Auto) 2.2, Baso % (Auto) 0.8, Neut # (Auto) 3.2, Lymph # (Auto) 1.3, Sebastian # (Auto) 0.6, Eos # (Auto) 0.1, Baso # (Auto) 0.0, Sodium 139, Potassium 4.0 D, Chloride 96 L, Carbon Dioxide 38 H, Anion Gap 9.0, BUN 34 H, Creatinine 1.20, Estimated Creat Clear 86, Estimated GFR 61, Est GFR ( Amer) 74, Glucose 190 H, POC Glucose 197 H, Calcium 8.8, Magnesium 1.5 L, Total Bilirubin 0.9, AST 25, ALT 14, Alkaline Phosphatase 101, Total Protein 6.8, Albumin 3.4 L, Globulin 3.4 H, Albumin/Globulin Ratio 1.0 L Temp Pulse Resp BP Pulse Ox O2 Del Method O2 Flow Rate 97.5 F L 76 20 123/63 95 Nasal Cannula 2 09/24/23 07:45 09/24/23 09:03 09/24/23 09:03 09/24/23 09:03 09/24/23 09:03 09/24/23 09:03 09/24/23 09:03 Laboratory Results - last 24 hr 09/23/23 13:07: VBG pH 7.33, VBG pCO2 51.2 H, VBG pO2 33.3, VBG HCO3 26.2, VBG Total CO2 27.8 H, VBG O2 Saturation 57.0, VBG Base Excess 0.2, VBG Lactic Acid 2.9 H 09/23/23 13:13: WBC 5.4, RBC 5.05, Hgb 12.1 L, Hct 40.3 L, MCV 79.8 L, MCH 24.0 L, MCHC 30.1 L, RDW 21.1 H, Plt Count 144, MPV 12.1 H, Neut % (Auto) 75.1, Lymph % (Auto) 17.2, Sebastian % (Auto) 6.7, Eos % (Auto) 0.4, Baso % (Auto) 0.6, Neut # (Auto) 4.1, Lymph # (Auto) 0.9, Sebastian # (Auto) 0.4, Eos # (Auto) 0.0, Baso # (Auto) 0.0, PT 13.8 H, INR 1.30 H, APTT 27.6, Sodium 134 L, Potassium 3.5, Chloride 93 L, Carbon Dioxide 31 H, Anion Gap 13.5, BUN 50 H, Creatinine 1.90 H, Estimated Creat Clear 57, Estimated GFR 36 L, Est GFR ( Amer) 44 L, Glucose 201 H, Hemoglobin A1c 8.0 H, Calcium 9.1, Total Bilirubin 1.2, AST 25, ALT 20, Alkaline Phosphatase 95, Troponin I 0.02, NT-Pro-B Natriuret Pep 76146 H, Total Protein 7.0, Albumin 3.8, Globulin 3.2, Albumin/Globulin Ratio 1.2, Triglycerides 91, Cholesterol 103 L, LDL Cholesterol Direct 64.40 L, VLDL Cholesterol 18, HDL Cholesterol 30 L, Cholesterol/HDL Ratio 3.4 09/23/23 16:09: Ammonia < 9 L, Troponin I 0.02 09/23/23 16:53: POC Glucose 175 H 09/23/23 18:13: Lactate 2.6 H, Troponin I 0.02 09/23/23 20:15: Sodium 133 L, Potassium 4.0, Chloride 93 L, Carbon Dioxide 32 H, Anion Gap 12.0, BUN 53 H, Creatinine 2.00 H, Estimated Creat Clear 58, Estimated GFR 34 L, Est GFR ( Amer) 41 L, Glucose 241 H, Calcium 8.8 09/23/23 20:25: POC Glucose 262 H 09/23/23 21:25: Lactate 1.8 09/24/23 05:57: WBC 5.6, RBC 4.80, Hgb 11.2 L, Hct 38.6 L, MCV 80.5, MCH 23.4 L, MCHC 29.1 L, RDW 21.0 H, Plt Count 131 L, MPV 9.6, Neut % (Auto) 58.7, Lymph % (Auto) 28.4, Sebastian % (Auto) 10.5 H, Eos % (Auto) 1.4, Baso % (Auto) 1.0, Neut # (Auto) 3.3, Lymph # (Auto) 1.6, Sebastian # (Auto) 0.6, Eos # (Auto) 0.1, Baso # (Auto) 0.1, Sodium 136, Potassium 4.2, Chloride 93 L, Carbon Dioxide 31 H, Anion Gap 16.2 H, BUN 60 H, Creatinine 2.10 H, Estimated Creat Clear 57, Estimated GFR 32 L, Est GFR ( Amer) 39 L, Glucose 202 H, Calcium 8.7, Magnesium 1.4 L, Total Bilirubin 0.9, AST 21, ALT 16, Alkaline Phosphatase 88, Total Protein 6.6, Albumin 3.7, Globulin 2.9, Albumin/Globulin Ratio 1.3 09/24/23 10:54: POC Glucose 171 H 09/24/23 11:19: Specimen Source Right radial, O2 % 70%, ABG pH 7.31 L, ABG pCO2 58.4 H, ABG pO2 144.8 H, ABG HCO3 28.7 H, ABG Total CO2 30.5 H, ABG O2 Saturation 99, ABG Base Excess 2.4 H, Ronnie Test Patient unable, Vent Rate 18, Tidal Volume 450, PEEP 8 I & O for Labs for Last 24 Hours: Intake & Output 09/25/23 09/26/23 09/27/23 09/28/23 23:59 23:59 23:59 23:59 Intake Total 3237.535 / 3237.535 1720.510 / 5529.999 7870.334 / 1832.334 480 / 480 Output Total 6770 / 7070 5845 / 6770 7700 / 7950 750 / 750 Balance -3532.465 / -3832.465 -4124.490 / -5049.490 -5867.666 / -6117.666 -270 / -270 Weight 231 lb 0.711 oz 223 lb 14.4 oz 216 lb 210 lb 11.2 oz Intake & Output 09/21/23 09/22/23 09/23/23 09/24/23 23:59 23:59 23:59 23:59 Intake Total 135 / 135 100 / 100 Output Total 625 / 625 50 / 50 Balance -490 / -490 50 / 50 Weight 234 lb 8 oz 242 lb 4 oz Microbiology Reports for the Last 24 Hours: Microbiology 09/25/23 10:05 Sputum - Endotracheal Tube Aspirate Gram Stain - Final 09/25/23 10:05 Sputum - Endotracheal Tube Aspirate Sputum Culture - Preliminary Constitutional: Present mild distress Head: Present normocephalic and atraumatic Neck: Present normal inspection and trachea midline Respiratory: Present respiratory distress, normal respiratory effort and able to speak in complete sentences; Absent prolonged expiratory phase, rhonchi or wheezes Cardiac: Present S1/S2 and Tachycardia GI: Present soft; Absent distention or tenderness Skin: Present wounds; Absent intact or cyanosis Neuro: Present alert, awake and oriented x 3 Extremities: Present edema; Absent normal inspection, clubbing or cyanosis Psychiatric: Present normal affect Assessment and Plan *Assessment and plan (1) Acute respiratory failure with hypoxia: Status: Acute Category: Medical Code(s): J96.01 - Acute respiratory failure with hypoxia (2) Pneumonia: Status: Acute Category: Medical Code(s): J18.9 - Pneumonia, unspecified organism Plan Mr. Vargas is a 63-year-old male > 30 PPD, carries a diagnosis of COPD with a history of heart failure with reduced ejection fraction hypertension dyslipidemia ANNA diabetes presents with worsening respiratory distress bilateral worsening lower extremity swelling worsening renal function admitted and being managed for acute congestive heart failure exacerbation with diuretics went for an elective right heart catheterization today noted to have mostly respiratory distress and apnea. She needing intubation mechanical ventilatory support and pulmonary was called for further evaluation and management. CT chest very minimal emphysematous changes. PFTs from 2020 did not show any obvious evidence of obstructive lung disease. Concerning for mild restriction. Postintubation chest x-ray concerning for left lower lobe infiltrate and patient was initiated ceftriaxone and doxycycline. Patient displayed symptoms improved off on diuretics, extubated to nasal cannula and eventually weaned to room air. Patient has been tolerating well so far. Continue to use CPAP therapy at night for his sleep apnea. Plan: Continue ceftriaxone and doxycycline to complete a total of 5-day course. Antibiotics can be weaned to cefdinir upon discharge. Room air saturations at rest were recorded 92% recommend 6-minute walk testing to evaluate for exertional hypoxia and oxygen requirements prior to discharge Initiate Advair 250 daily Continue albuterol/DuoNebs every 6 hours on as-needed basis # Thank you for involving pulmonary in this patient care. Will follow the patient in pulmonary clinic 1 to 2 weeks post discharge.
--- NOTE | 2023-09-28 11:23 | DIET.NUTRFU ---
Addendum entered by Megan Jj RD, LD 09/28/23 13:37: Spoke to patient with present, he practices a regular low sugar diet at home. Both him and share cooking meals, raising grandchild they love fruit. included some handouts in discharge paperwork and also provided him contact information to setup outpatient apt if needed. reported they will be drinking more water at the house. Takes miralax at home for constipation. Appetite has been good, consuming 100% at most meals.Said the food was fantastic. Original Note: No BM noted since admit, tolerating oral diet well with good meal intake. Provider aware and medications have been added. Labs reviewed
--- NOTE | 2023-09-28 11:29 | HMH.PTEV ---
Physical Therapy Evaluation Rehab PT IP Evaluation Start: 09/27/23 10:39 Freq: ONCE Status: Active Protocol: Document 09/28/23 11:24 ROSEMARY (Rec: 09/28/23 11:29 ROSEMARY [id number]) Subjective/History History History Per H&P: Mr. Vargas is a 63-year-old male with heart failure with reduced ejection fraction, history of CABG, hypertension, hyperlipidemia, ANNA, diabetes . States he has not smoked in over 20 years. Presented to the ER with complaint of worsening edema over the past 1 to 2 weeks. He has noticed the development of blisters and increased pain in his legs over the past week. Denies fever, nausea, vomiting, diarrhea. Reports compliance with his medications. Is on Bumex daily. Has had decreased urine output over the past 24 to 48 hours. On arrival to the ER, complains of some shortness of breath, worse with exertion. Denies any chest pain. adds that he has been forgetful over the past few months. On workup in the ER, concerning for kidney injury with elevated creatinine at 1.9 ( baseline normal at 1). Frankly volume overloaded on physical exam. Chest imaging concerning for increased pulmonary congestion. Medicine consulted for admission and further management of volume overload and suspected heart failure exacerbation. Subjective Subjective Patient lives in 1 story home with . No MARIBELL. Independent with ADLs and fx'l mobility. assists with housekeeping tasks. New diagnosis of cancer in past 12 No months? Rehab PT IP Eval Objective Appearance Patient Behavior Appropriate Patient Orientation Person Difficulty following instructions none Speech Pattern Clear Ambulation Patient Able to Ambulate Yes Ambulation Observation IP General Gait Pattern Observation No Deviations/Normal Ambulation Distance (feet) 5 Ambulation Assistive Device None Balance Ability to Arise Able, uses arms to help Sitting Balance Steady, safe Standing Balance Steady, wide stance Transfers Bed Transfer Ability Supervision/Stand by Sit to Stand Chair Transfer Ability Supervision/Stand by Rehab PT IP prob,goals,plan Problems Date of Evaluation: 09/28/23 PT IP Problems Gait,Balance Rehab Potential Rehab Potential Good Plan PT Intervention Plan Bed Mobility,Transfers,Gait, Balance,Safety,Therapeutic Exercise Other Intervention Plan 1-2 times PT Plan Frequency Daily Duration LOS Discharge Goals Bed Transfer Ability Independent Sit to Stand Chair Transfer Ability Independent Ambulation Assistive Device None Ambulation Distance (feet) 30 Discharge Plan PT Discharge Plan Initial physical therapy evaluation performed. Patient presents below baseline at this time in functional mobility, transfers, gait, and strength. Pt would benefit from skilled PT while at [facility] to prevent further functional decline and maximize safety with mobility. Pt safe to d/c home when deemed medically necessary d/t current level of mobility, home set-up, and family support. PT recommending home health PT services to address deficits. Eval Complexity Eval Charge Codes 20655 - Moderate Complexity PHYSICIAN CERTIFICATION: I certify the specified therapy services for Cristobal Vargas are required, authorized, and reviewed every 30 days.
--- NOTE | 2023-09-28 11:32 | SW/DCPLANNER ---
Addendum entered by Paulette Teran 09/29/23 14:22: Tony hinojosa/ [facility] stated that services will begin this week. Addendum entered by Paulette Teran 09/29/23 12:42: Patient is expected to discharge home today. Patient information/order has been faxed to Tony hinojosa/ [facility]. Original Note: I spoke w/ patient this AM regarding plans once medically stable for discharge. PT/OT evaluated patient and recommended home w/ home health services. Patient is agreeable to home health and does not have a preference as to which agency. Per MD patient could discharge home later today or tomorrow. I will set up home health services at time of discharge.
[2023-09-28] MEDS: ACETAMINOPHEN 325MG TAB 650 MG PO ×2 (12:00→21:04)
[2023-09-28] MEDS: DOXYCYCLINE HYCLATE 100 MG in 0.9 % SODIUM CHLORIDE 250 ML 166.667 MG IV ×2 (12:01→22:46)
[2023-09-28 12:17] LABS: POC Glucose,Bedside 221 (70-110)
--- NOTE | 2023-09-28 13:03 | IR_ITS ---
APPROVED REPORT Patient Location: Inpatient Registered Nurse Maternal Child: DERRICK Beltran RT (R) PROCEDURES Left heart catheterization Left ventriculogram Selective coronary angiogram Left internal mammary angiography Selective engagement of the saphenous vein graft was supplied the first obtuse marginal artery and then skips to the second obtuse marginal artery Selective engagement of the saphenous vein graft to the posterior descending artery INDICATION Worsening cardiomyopathy, Coronary artery disease, History of coronary bypass surgery, Informed consent was obtained prior to the procedure. COMPLICATIONS None Estimated Blood Loss: Less than 10 mls TECHNIQUE One percent lidocaine used to anesthetize the right groin. The right femoral artery was accessed via the Seldinger technique and a 5 [place] sheath was placed in the right femoral artery. A JL 4, JR4 catheter were used to perform left heart catheterization, left ventriculogram selective coronary angiography as well as selective engagement of the 2 vein grafts and the left internal mammary artery. At the end of the procedure the patient was transferred to the postop holding area in stable condition for sheath removal. ANGIOGRAPHIC RESULTS The left main artery Normal The left anterior descending artery Is proximally patent and gives rise to a septal busperson and 2 diagonal arteries and then occluded. The circumflex artery Proximally patent and gives rise to 2 small obtuse marginal arteries and then the vessels distally occluded The right coronary artery Has proximal 30% stenosis with mid vessel 40 to 50% stenoses. Distally the vessel is occluded The WRAY ventriculogram reveals Severe left ventricular dilatation with severe global hypokinesis estimated 5 to 10% The left ventricular end-diastolic pressure Elevated at 25 mmHg CAREY patent to small LAD Saphenous vein graft patent to first obtuse marginal artery and then skips to a second obtuse marginal artery Saphenous vein graft to PDA patent IMPRESSION Patent coronary arteries as described above Severe left ventricular dilatation with severe global hypokinesis Persistently elevated LVEDP PLAN 1. Patient would benefit from additional diuresis and lowering of LVEDP 2. Avoid beta-blockers at this time and further increase afterload reducing meds 3. Standard risk factor modification for coronary disease Electronically signed by : Devan Oconnell MD 09/28/2023 14:32:05
[2023-09-28] MEDS: LIDOCAINE 1% 10ML MDV 20 ML IJ (14:01)
[2023-09-28] MEDS: MIDAZOLAM HCL 1MG/1ML 5ML VIAL 1 MG IV (14:01)
[2023-09-28] MEDS: diphenhydrAMINE 50MG/ML VIAL 50 MG IV (14:01)
[2023-09-28] MEDS: FENTANYL 100MCG/2ML VIAL 50 MCG IV (14:02)
[2023-09-28] MEDS: IOPAMIDOL-370 (76%);100ML BOTTLE 80 ML IV (15:03)
--- NOTE | 2023-09-28 15:09 | P.PN_ITS ---
Subjective Subjective Date: 09/28/23 Time: 09:30 Principal diagnosis: volume overload Exam Data for Last 24 hours Vital signs and Labs for Last 24 Hours: Temp Pulse Resp BP Pulse Ox O2 Del Method O2 Flow Rate 98 F 88 20 159/106 H 98 Nasal Cannula 4 09/28/23 12:00 09/28/23 14:37 09/28/23 14:37 09/28/23 14:37 09/28/23 14:37 09/28/23 14:37 09/28/23 14:37 FiO2 2 09/25/23 14:00 Laboratory Results - last 24 hr 09/27/23 16:54: POC Glucose 238 H 09/27/23 20:33: POC Glucose 225 H 09/28/23 05:24: WBC 5.3, RBC 4.94, Hgb 11.8 L, Hct 39.6 L, MCV 80.2, MCH 23.9 L, MCHC 29.8 L, RDW 21.1 H, Plt Count 159, MPV 10.8 H, Neut % (Auto) 61.3, Lymph % (Auto) 25.3, [place] % (Auto) 10.3 H, Eos % (Auto) 2.2, Baso % (Auto) 0.8, Neut # (Auto) 3.2, Lymph # (Auto) 1.3, [place] # (Auto) 0.6, Eos # (Auto) 0.1, Baso # (Auto) 0.0, Sodium 139, Potassium 4.0 D, Chloride 96 L, Carbon Dioxide 38 H, Anion Gap 9.0, BUN 34 H, Creatinine 1.20, Estimated Creat Clear 86, Estimated GFR 61, Est GFR ( Amer) 74, Glucose 190 H, POC Glucose 197 H, Calcium 8.8, Magnesium 1.5 L, Total Bilirubin 0.9, AST 25, ALT 14, Alkaline Phosphatase 101, Total Protein 6.8, Albumin 3.4 L, Globulin 3.4 H, Albumin/Globulin Ratio 1.0 L 09/28/23 11:57: POC Glucose 221 H I & O for Last 24 hours: Intake & Output 09/25/23 09/26/23 09/27/23 09/28/23 23:59 23:59 23:59 23:59 Intake Total 3237.535 / 3237.535 1720.510 / 8006.792 4421.334 / 1832.334 580 / 580 Output Total 6770 / 7070 5845 / 6770 7700 / 7950 2550 / 2550 Balance -3532.465 / -3832.465 -4124.490 / -5049.490 -5867.666 / -6117.666 -1969 / -1969 Weight 231 lb 0.711 oz 223 lb 14.4 oz 216 lb 210 lb 11.2 oz Microbiology Reports for the Last 24 Hours: Microbiology 09/25/23 10:05 Sputum - Endotracheal Tube Aspirate Gram Stain - Final 09/25/23 10:05 Sputum - Endotracheal Tube Aspirate Sputum Culture - Preliminary Gram Negative Rods Constitutional Constitutional: no acute distress and cooperative *Routine HEENT Exam Eye: Present PERRL *Routine Respiratory Exam Respiratory: Present CTA bilaterally; Absent accessory muscle use, wheezes or crackles *Routine Cardiovascular Exam Cardiovascular: Present RRR, Normal S1 and Normal S2; Absent murmur, gallop or rubs *Routine Abdominal Exam Abdominal: Present soft; Absent tenderness *Routine Extremities Exam Extremities: Present pulses intact; Absent cyanosis or edema *Routine Skin Exam Skin: Present intact; Absent erythema or wounds *Routine Neurological Exam Neurological: Present alert and oriented X3 Routine Psychiatric Exam Psychiatric: Present cooperative Progress Note: A&P Assessment and plan (1) Acute respiratory failure with hypoxia: Status: Acute (2) Pneumonia: Status: Acute (3) Cardiogenic shock: Status: Acute (4) Acute on chronic heart failure with reduced ejection fraction and diastolic dysfunction: Status: Acute (5) On mechanically assisted ventilation: Status: Acute (6) Acute kidney injury: Status: Acute (7) Pulmonary edema with congestive heart failure: Status: Acute (8) Bilateral leg edema: Status: Acute (9) Tobacco abuse: Status: Chronic (10) Hyperlipidemia: Status: Chronic (11) History of coronary artery bypass graft: Status: Acute (12) Depression: Status: Chronic (13) Diabetes mellitus: Status: Chronic Assessment and Plan Assessment and Plan for All Diagnoses:: Acute on Chronic HFpEF - known dx with EF 40% sp [facility] ICD 2020? - seen in office 3 mo ago w/worsening edema/ascites, testing ordered but pt did not f/ - came to hospital with progressive vol overload sx x1 month - repeat ECHO here showed EF down to 10% - took to blood and plasma laboratory assistant and he developed resp failure and acute cardiogenic shock requiring intubation, milrinone, Amio, and bumex drips - weaned off of drips over the weekend - device interrogation indicates pt probably having frequent PMT which may have reduced his EF and led to CHF exacerbation - took back to blood and plasma laboratory assistant 09/27 - nonobstructive coronary disease, EDP remains 25 - cont progressive titration of GDMT and diuresis - poor prognosis, may benefit from device upgrade later Pacemaker Mediated Tachycardia - intially appeared to be VT - [facility] device settings changed over the weekend and having no further episodes Coronary artery disease s/p CABG 2019 - med management [facility] 07/2022 - denie angina here, but has worse EF - repeat [facility] here shows nonobstructive dz - cont DAPT, Statin Acute kidney injury-resolving - Creatinine peaked at 2.1, has improved to 1.2 Htn - increasing to 150s-170s - increase Entreso and Aldactone CV summary 09/27: Patient has severe four-chamber dilation with a significant decline in his EF over the past year which may be secondary to pacemaker mediated tachycardia. Device settings changed over the weekend and he has had no further episodes. He continues to diurese and is able to tolerate GDMT for heart failure. Repeat left heart cath today shows nonobstructive disease. He continues to have severely reduced EF with LVEDP of 25 and as such would benefit from ongoing diuresis.
--- NOTE | 2023-09-28 15:14 | P.PN_ITS ---
Subjective Subjective Date: 09/28/23 Time: 09:00 Principal diagnosis: volume overload Interval history: Continues to diurese. Feeling significantly better than on admission. Labs/vitals improving. Exam Data for Last 24 hours Vital signs and Labs for Last 24 Hours: Temp Pulse Resp BP Pulse Ox O2 Del Method O2 Flow Rate 98 F 88 20 159/106 H 98 Nasal Cannula 4 09/28/23 12:00 09/28/23 14:37 09/28/23 14:37 09/28/23 14:37 09/28/23 14:37 09/28/23 14:37 09/28/23 14:37 FiO2 2 09/25/23 14:00 Laboratory Results - last 24 hr 09/27/23 16:54: POC Glucose 238 H 09/27/23 20:33: POC Glucose 225 H 09/28/23 05:24: WBC 5.3, RBC 4.94, Hgb 11.8 L, Hct 39.6 L, MCV 80.2, MCH 23.9 L, MCHC 29.8 L, RDW 21.1 H, Plt Count 159, MPV 10.8 H, Neut % (Auto) 61.3, Lymph % (Auto) 25.3, [place] % (Auto) 10.3 H, Eos % (Auto) 2.2, Baso % (Auto) 0.8, Neut # (Auto) 3.2, Lymph # (Auto) 1.3, [place] # (Auto) 0.6, Eos # (Auto) 0.1, Baso # (Auto) 0.0, Sodium 139, Potassium 4.0 D, Chloride 96 L, Carbon Dioxide 38 H, Anion Gap 9.0, BUN 34 H, Creatinine 1.20, Estimated Creat Clear 86, Estimated GFR 61, Est GFR ( Amer) 74, Glucose 190 H, POC Glucose 197 H, Calcium 8.8, Magnesium 1.5 L, Total Bilirubin 0.9, AST 25, ALT 14, Alkaline Phosphatase 101, Total Protein 6.8, Albumin 3.4 L, Globulin 3.4 H, Albumin/Globulin Ratio 1.0 L 09/28/23 11:57: POC Glucose 221 H I & O for Last 24 hours: Intake & Output 09/25/23 09/26/23 09/27/23 09/28/23 23:59 23:59 23:59 23:59 Intake Total 3237.535 / 3237.535 1720.510 / 2696.914 8930.334 / 1832.334 580 / 580 Output Total 6770 / 7070 5845 / 6770 7700 / 7950 2550 / 2550 Balance -3532.465 / -3832.465 -4124.490 / -5049.490 -5867.666 / -6117.666 -1969 / -1969 Weight 231 lb 0.711 oz 223 lb 14.4 oz 216 lb 210 lb 11.2 oz Microbiology Reports for the Last 24 Hours: Microbiology 09/25/23 10:05 Sputum - Endotracheal Tube Aspirate Gram Stain - Final 09/25/23 10:05 Sputum - Endotracheal Tube Aspirate Sputum Culture - Preliminary Gram Negative Rods Progress Note: A&P Assessment and plan (1) Acute respiratory failure with hypoxia: Status: Acute (2) Pneumonia: Status: Acute (3) Cardiogenic shock: Status: Acute (4) Acute on chronic heart failure with reduced ejection fraction and diastolic dysfunction: Status: Acute (5) On mechanically assisted ventilation: Status: Acute (6) Acute kidney injury: Status: Acute (7) Pulmonary edema with congestive heart failure: Status: Acute (8) Bilateral leg edema: Status: Acute (9) Tobacco abuse: Status: Chronic (10) Hyperlipidemia: Status: Chronic (11) History of coronary artery bypass graft: Status: Acute (12) Depression: Status: Chronic (13) Diabetes mellitus: Status: Chronic Assessment and Plan Assessment and Plan for All Diagnoses:: Acute on Chronic HFpEF - known dx with EF 40% sp [facility] ICD 2020? - seen in office 3 mo ago w/worsening edema/ascites, testing ordered but pt did not f/ - came to hospital with progressive vol overload sx x1 month - repeat ECHO here showed EF down to 10% - took to labor relations analyst and he developed resp failure and acute cardiogenic shock re quiring intubation, milrinone, Amio, and bumex drips - weaned off of drips over the weekend - device interrogation indicates pt probably having frequent PMT which may have reduced his EF and led to CHF exacerbation - took back to labor relations analyst 09/27 - nonobstructive coronary disease, EDP remains 25 - cont progressive titration of GDMT and diuresis - poor prognosis, may benefit from device upgrade later Pacemaker Mediated Tachycardia - intially appeared to be VT - [place] device settings changed over the weekend and having no further episodes Coronary artery disease s/p CABG 2019 - med management [facility] 07/2022 - denie angina here, but has worse EF - repeat [facility] here shows nonobstructive dz - cont DAPT, Statin Acute kidney injury-resolving - Creatinine peaked at 2.1, has improved to 1.2 Htn - increasing to 150s-170s - increase Entreso and Aldactone CV summary 09/27: Patient has severe four-chamber dilation with a significant decline in his EF over the past year which may be secondary to pacemaker mediated tachycardia. Device settings changed over the weekend and he has had no further episodes. He continues to diurese and is able to tolerate GDMT for heart failure. Repeat left heart cath today shows nonobstructive disease. He continues to have severely reduced EF with LVEDP of 25 and as such would benefit from ongoing diuresis.
[2023-09-28 16:25] LABS: POC Glucose,Bedside 242 (70-110)
[2023-09-28] MEDS: METFORMIN 500MG TABLET 1000 MG PO (16:32)
[2023-09-28] MEDS: FLUTICASONE/SALMETEROL 250/50MCG DISKUS 1 PUFF IH (18:18)
--- NOTE | 2023-09-28 19:38 | EXP.ACUTE.PN ---
Subjective *Date: 09/28/23 *Time: 22:25 Interval history: Patient feeling okay this morning. Stable on room air. Blood pressure still mildly elevated. Diuresing well, -20 L since admission. Received 28 units of sliding scale insulin yesterday. Working with therapy this morning, fairly independent with his mobility. Still no bowel movement. Enema received this morning. Planning to go for repeat heart cath today Medical Exam Vital signs and Labs for Last 24 Hours: Vital Signs Temp Pulse Pulse Resp BP Pulse Ox O2 Del Method 09/28/23 19:00 Room Air 09/28/23 18:50 81 20 124/82 92 L Room Air 09/28/23 17:50 89 18 135/82 96 Room Air 09/28/23 17:20 82 18 134/87 92 L Room Air 09/28/23 17:00 Room Air 09/28/23 16:50 82 20 163/113 H 97 Room Air 09/28/23 16:20 78 20 124/80 92 L Room Air 09/28/23 16:00 70 09/28/23 15:50 78 20 137/99 H 95 Room Air 09/28/23 15:25 86 18 166/90 H 100 Room Air 09/28/23 15:10 83 18 134/83 91 L Room Air 09/28/23 15:00 Room Air 09/28/23 14:55 97.3 F L 84 18 151/99 H 91 L Room Air 09/28/23 14:37 88 20 159/106 H 98 Nasal Cannula 09/28/23 14:35 87 20 179/100 H 98 Nasal Cannula 09/28/23 14:30 90 20 160/109 H 97 Nasal Cannula 09/28/23 14:28 85 86 20 154/103 H 86 L Room Air 09/28/23 13:00 Room Air 09/28/23 12:00 70 09/28/23 12:00 98 F 75 17 156/84 H 95 09/28/23 11:00 Room Air 09/28/23 09:00 Room Air 09/28/23 08:00 Room Air 09/28/23 08:00 70 09/28/23 08:00 98.1 F 56 L 18 155/78 H 91 L 09/28/23 06:47 Room Air 09/28/23 06:05 80 09/28/23 06:05 83 09/28/23 06:05 94 L Room Air 09/28/23 05:00 Room Air 09/28/23 04:26 82 09/28/23 04:00 97.8 F 69 18 139/75 91 L CPAP 09/28/23 03:00 CPAP 09/28/23 01:00 Room Air 09/28/23 00:00 98.2 F 75 18 148/81 H 96 CPAP 09/28/23 00:00 85 09/27/23 23:37 82 09/27/23 23:37 81 09/27/23 23:00 Room Air 09/27/23 21:00 Room Air 09/27/23 20:00 90 09/27/23 20:00 Room Air 09/27/23 20:00 98.0 F 79 17 122/68 95 Room Air O2 Flow Rate 09/28/23 19:00 09/28/23 18:50 09/28/23 17:50 09/28/23 17:20 09/28/23 17:00 09/28/23 16:50 09/28/23 16:20 09/28/23 16:00 09/28/23 15:50 09/28/23 15:25 09/28/23 15:10 09/28/23 15:00 09/28/23 14:55 09/28/23 14:37 4 09/28/23 14:35 4 09/28/23 14:30 4 09/28/23 14:28 09/28/23 13:00 09/28/23 12:00 09/28/23 12:00 09/28/23 11:00 09/28/23 09:00 09/28/23 08:00 09/28/23 08:00 09/28/23 08:00 09/28/23 06:47 09/28/23 06:05 09/28/23 06:05 09/28/23 06:05 09/28/23 05:00 09/28/23 04:26 09/28/23 04:00 09/28/23 03:00 09/28/23 01:00 09/28/23 00:00 09/28/23 00:00 09/27/23 23:37 09/27/23 23:37 09/27/23 23:00 09/27/23 21:00 09/27/23 20:00 09/27/23 20:00 09/27/23 20:00 Intake and Output 09/28/23 09/28/23 09/28/23 07:59 15:59 23:59 Intake Total 580 / 1060 480 / 1060 Output Total 750 / 4150 1800 / 4150 1600 / 4150 Balance -750 / -3090 -1220 / -3090 -1120 / -3090 Intake: Intake, Oral Amount 580 / 1060 480 / 1060 Output: Output, Urine Amount 750 / 4150 1800 / 4150 1600 / 4150 Other: Number of Unmeasured Voids 0 1 Weight 95.572 kg Patient Weight 09/28/23 23:59 Weight 95.572 kg Laboratory Results - last 24 hr 09/27/23 20:33: POC Glucose 225 H 09/28/23 05:24: WBC 5.3, RBC 4.94, Hgb 11.8 L, Hct 39.6 L, MCV 80.2, MCH 23.9 L, MCHC 29.8 L, RDW 21.1 H, Plt Count 159, MPV 10.8 H, Neut % (Auto) 61.3, Lymph % (Auto) 25.3, [place] % (Auto) 10.3 H, Eos % (Auto) 2.2, Baso % (Auto) 0.8, Neut # (Auto) 3.2, Lymph # (Auto) 1.3, [place] # (Auto) 0.6, Eos # (Auto) 0.1, Baso # (Auto) 0.0, Sodium 139, Potassium 4.0 D, Chloride 96 L, Carbon Dioxide 38 H, Anion Gap 9.0, BUN 34 H, Creatinine 1.20, Estimated Creat Clear 86, Estimated GFR 61, Est GFR ( Amer) 74, Glucose 190 H, POC Glucose 197 H, Calcium 8.8, Magnesium 1.5 L, Total Bilirubin 0.9, AST 25, ALT 14, Alkaline Phosphatase 101, Total Protein 6.8, Albumin 3.4 L, Globulin 3.4 H, Albumin/Globulin Ratio 1.0 L 09/28/23 11:57: POC Glucose 221 H 09/28/23 16:13: POC Glucose 242 H I & O for Labs for Last 24 Hours: Intake & Output 05/03/1009/26/23 09/27/23 09/28/23 23:59 23:59 23:59 23:59 Intake Total 3237.535 / 3237.535 1720.510 / 5687.104 8599.334 / 1947.394 2041 / 1060 Output Total 6770 / 7070 5845 / 6770 7700 / 7950 4150 / 4150 Balance -3532.465 / -3832.465 -4124.490 / -5049.490 -5867.666 / -6117.666 -3090 / -3090 Weight 104.8 kg 101.559 kg 97.976 kg 95.572 kg Microbiology Reports for the Last 24 Hours: Microbiology 09/25/23 10:05 Sputum - Endotracheal Tube Aspirate Gram Stain - Final 09/25/23 10:05 Sputum - Endotracheal Tube Aspirate Sputum Culture - Preliminary Gram Negative Rods Constitutional: Present no acute distress, obese, chronically ill appearing and cooperative Head: Present atraumatic and normocephalic ENT: Present normal exam Comment:: Right IJ in place Respiratory: Present prolonged expiratory phase, rhonchi, crackles and normal respiratory effort; Absent wheezes Cardiac: Present Reg Rate and Rhythm GI: Present soft and normal bowel sounds; Absent distention or tenderness Comment:: [place] in place Extremities: Present normal inspection, full ROM and edema (1+ in lower legs, 2+ edema in feet. Wrinkling of skin.) Skin: Present intact; Absent erythema Comment:: Stasis dermatitis of lower extremities with intermittent healing lesions were blisters used to be. Neuro: Present alert, awake, oriented x 3 and moves all extremities Assessment and Plan *Assessment and plan (1) Cardiogenic shock: Status: Acute Category: Medical Code(s): R57.0 - Cardiogenic shock (2) Acute on chronic heart failure with reduced ejection fraction and diastolic dysfunction: Status: Acute Category: Medical Code(s): I50.43 - Acute on chronic combined systolic (congestive) and diastolic (congestive) heart failure (3) Acute respiratory failure with hypoxia: Status: Acute Category: Medical Code(s): J96.01 - Acute respiratory failure with hypoxia (4) On mechanically assisted ventilation: Status: Acute Category: Medical Code(s): Z99.11 - Dependence on respirator [ventilator] status (5) Pneumonia: Status: Acute Category: Medical Code(s): J18.9 - Pneumonia, unspecified organism (6) Acute kidney injury: Status: Acute Category: Medical Code(s): N17.9 - Acute kidney failure, unspecified (7) Pulmonary edema with congestive heart failure: Status: Acute Category: Medical Code(s): I50.1 - Left ventricular failure, unspecified (8) Bilateral leg edema: Status: Acute Category: Medical Code(s): R60.0 - Localized edema (9) Tobacco abuse: Status: Chronic Category: Medical Code(s): Z72.0 - Tobacco use (10) Hyperlipidemia: Status: Chronic Qualifiers: Hyperlipidemia type: unspecified Qualified Code(s): E78.5 - Hyperlipidemia, unspecified Category: Medical Code(s): E78.5 - Hyperlipidemia, unspecified (11) History of coronary artery bypass graft: Status: Acute Category: Surgical Code(s): Z95.1 - Presence of aortocoronary bypass graft (12) Depression: Status: Chronic Qualifiers: Depression Type: major depressive disorder Major depression recurrence: single episode Active/Remission status: currently active Major depression episode severity: moderate Qualified Code(s): F32.1 - Major depressive disorder, single episode, moderate Category: Medical Code(s): F32.A - Depression, unspecified (13) Diabetes mellitus: Status: Chronic Qualifiers: Diabetes mellitus type: type 2 Diabetes mellitus care home insulin use: without 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 Found to have GITA and volume overload. Discussed case with ER physician, request admission for diuresis and further management of kidney injury. Medicine agreed to admit. Initiated on Bumex drip. Had poor response. Taken for right heart cath this morning, decompensated necessitating mechanical ventilation and intubation. Patient has done well overnight. Diuresing well, -20 L in since admission. On room air. Blood pressure mildly elevated. Continuing to adjust goal-directed therapy. Seeing improvement in kidney function labs. at bedside. Continues to require inpatient care. Going for repeat heart cath today. Therapy evaluated, stable to discharge home with home health. Anticipate discharge in the next day or 2. Problems addressed as follows: Cardiogenic shock Acute on chronic heart failure with reduced ejection fraction Volume overload -Discussed case with cardiology, continue Bumex 2 mg IV twice daily. Increase Entresto to max dose given blood pressure. - Echo showing severely reduced LVEF approximately 10%. Grade 2 diastolic dysfunction. Elevated RVSP of 50 to 55 mmHg. Will consider repeat right heart cath on Thursday. -Holding beta-rodrigo in the setting of cardiogenic shock. Continue aspirin and Plavix -Continue ceftriaxone 1 g daily and doxycycline 100 mg twice daily for total of 5 days. Last dose today.. Sputum cultures pending. -Pantoprazole 40 mg IV nightly -Going for repeat heart cath today to evaluate for CAD and cardiac function. GITA -Baseline creatinine approximately 1. Creatinine improving, 1.2 on morning labs, BUN 34. repeat CBC, CMP, magnesium ordered for the morning. -Potassium 4.0, discontinue p.o. replacement with addition of spironolactone 50 mg daily. -Magnesium 1.5, replace oral and IV today. -Caution with nephrotoxins, will renally dose medications Diabetes: A1c elevated at 8, on glimepiride, Januvia, and metformin at home - Continue sliding scale insulin with fingersticks ACHS -Received 28 units of sliding scale yesterday. -Initiate 10 units basal insulin tonight. Continue home gabapentin renally dosed at 300 mg twice daily Continue home oxycodone 10 mg 4 times a day as needed Continue pantoprazole (formulary conversion) for GERD Full code Heparin subcu 5000 units twice daily Diabetic diet.
[2023-09-28] MEDS: SACUBITRIL/VALSARTAN 24-26MG TABLET 4 EACH PO (21:03)
[2023-09-28] MEDS: PANTOPRAZOLE 40MG TABLET 40 MG PO (21:04)
[2023-09-28] MEDS: INSULIN GLARGINE 100 UNITS/ML 3ML FLEXPEN 10 UNIT SQ (21:10)
--- NOTE | 2023-09-28 21:15 | PC.NURSE ---
Sheath pulled at this time
[2023-09-28 21:33] LABS: POC Glucose,Bedside 159 (70-110)
[2023-09-29] VITALS: BP 143/77; PULSE 78; RESP 20; TEMP 36.8; O2SAT 97
[2023-09-29 04:00] VITALS: BP 147/75; PULSE 77; PULSE 78; RESP 18; TEMP 36.3; O2SAT 96; BMI 30.4
[2023-09-29] MEDS: humaLOG 100 UNITS/ML 3ML VIAL (SSI) SQ ×2 (05:12→11:14)
[2023-09-29 05:20] LABS: POC Glucose,Bedside 167 (70-110)
[2023-09-29] MEDS: OXYCODONE 10MG W/APAP 325MG TABLET 1 EACH PO ×2 (05:22→13:08)
[2023-09-29] MEDS: FLUTICASONE/SALMETEROL 250/50MCG DISKUS 1 PUFF IH (06:01)
[2023-09-29 06:33] LABS: Basophils # 0.1 K/mm3 (0-0.2); Basophils % 1.2 % (0.1-2.0); Eosinophils # 0.2 K/mm3 (0.0-0.4); Eosinophils % 3.8 % (0.1-12.0); Hematocrit 41.2 % (42.0-52.0); Hemoglobin 12.1 g/dL (14.1-18.0); Lymphocytes # 1.5 K/mm3 (0.7-4.5); Lymphocytes % 25.2 % (10-50); Mean Corpuscular HGB Conc 29.5 g/dL (31.8-35.4); Mean Corpuscular Hemoglobin 23.9 pg (27.0-31.2); Mean Platelet Volume 10.4 fl (7.4-10.4); Monocytes # 0.5 K/mm3 (0.1-1.0); Neutrophils # 3.6 K/mm3 (1.8-7.8); Neutrophils % 60.9 % (37.0-80.0); Platelet Count 155 K/mm3 (142-424); Red Blood Count 5.08 M/mm3 (4.60-6.20); Red Cell Distribution Width 21.1 % (11.5-17.5); White Blood Count 5.9 K/mm3 (4.8-10.8)
[2023-09-29 07:03] LABS: Alanine Aminotransferase 17 U/L (12-78); Albumin Level 3.5 g/dl (3.5-5.0); Alkaline Phosphatase 108 U/L (38-126); Anion Gap 12.9 mEq/L (5-15); Aspartate Amino Transferase 41 U/L (17-59); Blood Urea Nitrogen 26 mg/dl (9-20); Calcium 8.9 mg/dl (8.4-10.2); Carbon Dioxide 30 mmol/L (22.0-30.0); Chloride 98 mmol/L (98-107); Creatinine Clearance Estimated 104 mL/min (50-200); Estimated Glomerular Filt Rate 76 ml/min (>60); GFR (African American) 92 ML/MIN (>60); Globulin 3.5 g/dL (1.3-3.2); Glucose 164 mg/dl (74-100); Potassium 3.9 mmoL/L (3.5-5.1); Sodium 137 mmol/L (136-145)
[2023-09-29 07:46] VITALS: PULSE 90
[2023-09-29 07:47] LABS: Magnesium 1.8 mg/dl (1.6-2.3)
[2023-09-29 08:00] VITALS: BP 145/87; PULSE 91; RESP 17; TEMP 36.6; O2SAT 91
[2023-09-29] MEDS: CLOPIDOGREL 75MG TAB 75 MG PO (08:31)
[2023-09-29] MEDS: SENNOSIDES 8.6MG/DOCUSATE 50MG TABLET 1 TAB PO (08:32)
[2023-09-29] MEDS: METFORMIN 500MG TABLET 1000 MG PO (08:32)
[2023-09-29] MEDS: MAGNESIUM OXIDE 400MG TABLET 400 MG PO (08:32)
[2023-09-29] MEDS: POLYETHYLENE GLYCOL 3350 17 GM PACKET PO (08:32)
[2023-09-29] MEDS: HEPARIN SODIUM 5,000 UNIT/ML VIAL 5000 UNIT SQ (08:32)
[2023-09-29] MEDS: GABAPENTIN 600MG TABLET 600 MG PO ×2 (08:32→13:09)
[2023-09-29] MEDS: SPIRONOLACTONE 25MG TABLET 50 MG PO (08:33)
[2023-09-29] MEDS: SACUBITRIL/VALSARTAN 24-26MG TABLET 4 EACH PO (08:33)
--- NOTE | 2023-09-29 09:27 | P.PN_ITS ---
Subjective *Date: 09/29/23 *Time: 10:32 Interval history: No acute respiratory events overnight. Tolerating room air well. Patient denies any new respiratory complaints. Pulmonology Exam Inpatient Vital signs and Labs for Last 24 Hours: Temp Pulse Resp BP Pulse Ox O2 Del Method O2 Flow Rate 98 F 91 H 17 145/87 H 91 L Room Air 4 09/29/23 08:00 09/29/23 08:00 09/29/23 08:00 09/29/23 08:00 09/29/23 08:00 09/29/23 09:00 09/28/23 14:37 FiO2 2 09/25/23 14:00 Laboratory Results - last 24 hr 09/28/23 11:57: POC Glucose 221 H 09/28/23 16:13: POC Glucose 242 H 09/28/23 21:07: POC Glucose 159 H 09/29/23 05:10: POC Glucose 167 H 09/29/23 05:51: WBC 5.9, RBC 5.08, Hgb 12.1 L, Hct 41.2 L, MCV 81.0, MCH 23.9 L, MCHC 29.5 L, RDW 21.1 H, Plt Count 155, MPV 10.4, Neut % (Auto) 60.9, Lymph % (Auto) 25.2, [place] % (Auto) 9.0, Eos % (Auto) 3.8, Baso % (Auto) 1.2, Neut # (Auto) 3.6, Lymph # (Auto) 1.5, [place] # (Auto) 0.5, Eos # (Auto) 0.2, Baso # (Auto) 0.1, Sodium 137, Potassium 3.9, Chloride 98, Carbon Dioxide 30, Anion Gap 12.9, BUN 26 H, Creatinine 1.00, Estimated Creat Clear 104, Estimated GFR 76, Est GFR ( Amer) 92 D, Glucose 164 H, Calcium 8.9, Magnesium 1.8 D, Total Bilirubin 1.0, AST 41 D, ALT 17, Alkaline Phosphatase 108, Total Protein 7.0, Albumin 3.5, Globulin 3.5 H, Albumin/Globulin Ratio 1.0 L Temp Pulse Resp BP Pulse Ox O2 Del Method O2 Flow Rate 97.5 F L 76 20 123/63 95 Nasal Cannula 2 09/24/23 07:45 09/24/23 09:03 09/24/23 09:03 09/24/23 09:03 09/24/23 09:03 09/24/23 09:03 09/24/23 09:03 Laboratory Results - last 24 hr 09/23/23 13:07: VBG pH 7.33, VBG pCO2 51.2 H, VBG pO2 33.3, VBG HCO3 26.2, VBG Total CO2 27.8 H, VBG O2 Saturation 57.0, VBG Base Excess 0.2, VBG Lactic Acid 2.9 H 09/23/23 13:13: WBC 5.4, RBC 5.05, Hgb 12.1 L, Hct 40.3 L, MCV 79.8 L, MCH 24.0 L, MCHC 30.1 L, RDW 21.1 H, Plt Count 144, MPV 12.1 H, Neut % (Auto) 75.1, Lymph % (Auto) 17.2, [place] % (Auto) 6.7, Eos % (Auto) 0.4, Baso % (Auto) 0.6, Neut # (Auto) 4.1, Lymph # (Auto) 0.9, [place] # (Auto) 0.4, Eos # (Auto) 0.0, Baso # (Auto) 0.0, PT 13.8 H, INR 1.30 H, APTT 27.6, Sodium 134 L, Potassium 3.5, Chloride 93 L, Carbon Dioxide 31 H, Anion Gap 13.5, BUN 50 H, Creatinine 1.90 H, Estimated Creat Clear 57, Estimated GFR 36 L, Est GFR ( Amer) 44 L, Glucose 201 H, Hemoglobin A1c 8.0 H, Calcium 9.1, Total Bilirubin 1.2, AST 25, ALT 20, Alkaline Phosphatase 95, Troponin I 0.02, NT-Pro-B Natriuret Pep 42424 H , Total Protein 7.0, Albumin 3.8, Globulin 3.2, Albumin/Globulin Ratio 1.2, Triglycerides 91, Cholesterol 103 L, LDL Cholesterol Direct 64.40 L, VLDL Cholesterol 18, HDL Cholesterol 30 L, Cholesterol/HDL Ratio 3.4 09/23/23 16:09: Ammonia < 9 L, Troponin I 0.02 09/23/23 16:53: POC Glucose 175 H 09/23/23 18:13: Lactate 2.6 H, Troponin I 0.02 09/23/23 20:15: Sodium 133 L, Potassium 4.0, Chloride 93 L, Carbon Dioxide 32 H, Anion Gap 12.0, BUN 53 H, Creatinine 2.00 H, Estimated Creat Clear 58, Estimated GFR 34 L, Est GFR ( Amer) 41 L, Glucose 241 H, Calcium 8.8 09/23/23 20:25: POC Glucose 262 H 09/23/23 21:25: Lactate 1.8 09/24/23 05:57: WBC 5.6, RBC 4.80, Hgb 11.2 L, Hct 38.6 L, MCV 80.5, MCH 23.4 L, MCHC 29.1 L, RDW 21.0 H, Plt Count 131 L, MPV 9.6, Neut % (Auto) 58.7, Lymph % (Auto) 28.4, [place] % (Auto) 10.5 H, Eos % (Auto) 1.4, Baso % (Auto) 1.0, Neut # (Auto) 3.3, Lymph # (Auto) 1.6, [place] # (Auto) 0.6, Eos # (Auto) 0.1, Baso # (Auto) 0.1, Sodium 136, Potassium 4.2, Chloride 93 L, Carbon Dioxide 31 H, Anion Gap 16.2 H, BUN 60 H, Creatinine 2.10 H, Estimated Creat Clear 57, Estimated GFR 32 L, Est GFR ( Amer) 39 L, Glucose 202 H, Calcium 8.7, Magnesium 1.4 L, Total Bilirubin 0.9, AST 21, ALT 16, Alkaline Phosphatase 88, Total Protein 6.6, Albumin 3.7, Globulin 2.9, Albumin/Globulin Ratio 1.3 09/24/23 10:54: POC Glucose 171 H 09/24/23 11:19: Specimen Source Right radial, O2 % 70%, ABG pH 7.31 L, ABG pCO2 58.4 H, ABG pO2 144.8 H, ABG HCO3 28.7 H, ABG Total CO2 30.5 H, ABG O2 Saturation 99, ABG Base Excess 2.4 H, Ronnie Test Patient unable, Vent Rate 18, Tidal Volume 450, PEEP 8 I & O for Labs for Last 24 Hours: Intake & Output 09/26/23 09/27/23 09/28/23 09/29/23 23:59 23:59 23:59 23:59 Intake Total 1720.510 / 6330.924 4570.334 / 4047.314 3671 / 1060 730 / 730 Output Total 5845 / 6770 7700 / 7950 4670 / 4670 150 / 150 Balance -4124.490 / -5049.490 -5867.666 / -6117.666 -3610 / -3610 580 / 580 Weight 223 lb 14.4 oz 216 lb 210 lb 11.2 oz 212 lb 9.6 oz Intake & Output 09/21/23 09/22/23 09/23/23 09/24/23 23:59 23:59 23:59 23:59 Intake Total 135 / 135 100 / 100 Output Total 625 / 625 50 / 50 Balance -490 / -490 50 / 50 Weight 234 lb 8 oz 242 lb 4 oz Microbiology Reports for the Last 24 Hours: Microbiology 09/25/23 10:05 Sputum - Endotracheal Tube Aspirate Gram Stain - Final 09/25/23 10:05 Sputum - Endotracheal Tube Aspirate Sputum Culture - Final Serratia marcescens Constitutional: Present mild distress Head: Present normocephalic and atraumatic Neck: Present normal inspection and trachea midline Respiratory: Present normal respiratory effort and able to speak in complete sentences; Absent prolonged expiratory phase, respiratory distress, rhonchi or wheezes Cardiac: Present S1/S2 and Tachycardia GI: Present soft; Absent distention or tenderness Skin: Present wounds; Absent intact or cyanosis Neuro: Present alert, awake and oriented x 3 Extremities: Present edema; Absent normal inspection, clubbing or cyanosis Psychiatric: Present normal affect Assessment and Plan *Assessment and plan (1) Acute respiratory failure with hypoxia: Status: Acute Category: Medical Code(s): J96.01 - Acute respiratory failure with hypoxia (2) Pneumonia: Status: Acute Category: Medical Code(s): J18.9 - Pneumonia, unspecified organism Plan Mr. Vargas is a 63-year-old male > 30 PPD, carries a diagnosis of COPD with a history of heart failure with reduced ejection fraction hypertension dyslipidemia ANNA diabetes presents with worsening respiratory distress bilateral worsening lower extremity swelling worsening renal function admitted and being managed for acute congestive heart failure exacerbation with diuretics went for an elective right heart catheterization today noted to have mostly respiratory distress and apnea. She needing intubation mechanical ventilatory support and pulmonary was called for further evaluation and management. CT chest very minimal emphysematous changes. PFTs from 2020 did not show any obvious evidence of obstructive lung disease. Concerning for mild restriction. Postintubation chest x-ray concerning for left lower lobe infiltrate and patient was initiated ceftriaxone and doxycycline. Patient displayed symptoms improved off on diuretics, extubated to nasal cannula and eventually weaned to room air. Patient has been tolerating well so far. Continue to use CPAP therapy at night for his sleep apnea. Interval update: No acute respiratory events overnight. Continues remain on room air even room air with saturations maintained at 90% able 6-minute walk testing performed on room air today did not show any significant desaturations, saturations maintained at 95% number throughout the testing. Plan: Continue ceftriaxone and doxycycline to complete a total of 5-day course. Antibiotics can be weaned to cefdinir upon discharge. Continue Advair 250 daily Continue albuterol/DuoNebs every 6 hours on as-needed basis # Thank you for involving pulmonary in this patient care. Will follow the patient in pulmonary clinic 1 to 2 weeks post discharge.
--- NOTE | 2023-09-29 10:09 | PC.NURSE ---
RESP CARE NOTE: Pt walked around the floor for exactly 11 mins and SPO2 remained 97% on room air, dropping once to 95% on room air while walking. Pt continues to walk after testing performed.
[2023-09-29 10:17] VITALS: BP 145/87; BP 156/88; PULSE 107; PULSE 91; RESP 17; RESP 18; O2SAT 95; O2SAT 97
[2023-09-29] MEDS: ACETAMINOPHEN 325MG TAB 650 MG PO (11:14)
[2023-09-29 11:18] LABS: POC Glucose,Bedside 194 (70-110)
[2023-09-29 11:46] VITALS: BP 140/87; PULSE 79; RESP 16; TEMP 36.6; O2SAT 94
--- NOTE | 2023-09-29 13:27 | P.PN_ITS ---
Subjective Subjective Date: 09/29/23 Time: 10:00 Principal diagnosis: volume overload Interval history: Diuresed another 3.7L overnight. He is up ambulating in the hallways stating he feels great. Vitals and labs stable. Patient requesting discharge Exam Data for Last 24 hours Vital signs and Labs for Last 24 Hours: Temp Pulse Resp BP Pulse Ox O2 Del Method O2 Flow Rate 98 F 79 16 140/87 94 L Room Air 4 09/29/23 11:46 09/29/23 11:46 09/29/23 11:46 09/29/23 11:46 09/29/23 11:46 09/29/23 11:00 09/28/23 14:37 FiO2 2 09/25/23 14:00 Laboratory Results - last 24 hr 09/28/23 16:13: POC Glucose 242 H 09/28/23 21:07: POC Glucose 159 H 09/29/23 05:10: POC Glucose 167 H 09/29/23 05:51: WBC 5.9, RBC 5.08, Hgb 12.1 L, Hct 41.2 L, MCV 81.0, MCH 23.9 L, MCHC 29.5 L, RDW 21.1 H, Plt Count 155, MPV 10.4, Neut % (Auto) 60.9, Lymph % (Auto) 25.2, [place] % (Auto) 9.0, Eos % (Auto) 3.8, Baso % (Auto) 1.2, Neut # (Auto) 3.6, Lymph # (Auto) 1.5, [place] # (Auto) 0.5, Eos # (Auto) 0.2, Baso # (Au to) 0.1, Sodium 137, Potassium 3.9, Chloride 98, Carbon Dioxide 30, Anion Gap 12.9, BUN 26 H, Creatinine 1.00, Estimated Creat Clear 104, Estimated GFR 76, Est GFR ( Amer) 92 D, Glucose 164 H, Calcium 8.9, Magnesium 1.8 D, Total Bilirubin 1.0, AST 41 D, ALT 17, Alkaline Phosphatase 108, Total Protein 7.0, Albumin 3.5, Globulin 3.5 H, Albumin/Globulin Ratio 1.0 L 09/29/23 11:11: POC Glucose 194 H I & O for Last 24 hours: Intake & Output 09/26/23 09/27/23 09/28/23 09/29/23 23:59 23:59 23:59 23:59 Intake Total 1720.510 / 6349.542 0320.334 / 8705.688 3855 / 1060 1210 / 1210 Output Total 5845 / 6770 7700 / 7950 4670 / 4670 150 / 150 Balance -4124.490 / -5049.490 -5867.666 / -6117.666 -3610 / -3610 1060 / 1060 Weight 223 lb 14.4 oz 216 lb 210 lb 11.2 oz 212 lb 9.6 oz Microbiology Reports for the Last 24 Hours: Microbiology 09/25/23 10:05 Sputum - Endotracheal Tube Aspirate Gram Stain - Final 09/25/23 10:05 Sputum - Endotracheal Tube Aspirate Sputum Culture - Final Serratia marcescens Constitutional Constitutional: no acute distress and cooperative *Routine HEENT Exam Eye: Present PERRL *Routine Respiratory Exam Respiratory: Present CTA bilaterally; Absent accessory muscle use, wheezes or crackles *Routine Cardiovascular Exam Cardiovascular: Present RRR, Normal S1 and Normal S2; Absent murmur, gallop or rubs Comments: Mild discoloration bilateral lower extremity, significant improvement in edema *Routine Abdominal Exam Abdominal: Present soft; Absent tenderness *Routine Extremities Exam Extremities: Present pulses intact; Absent cyanosis or edema *Routine Skin Exam Skin: Present intact; Absent erythema or wounds *Routine Neurological Exam Neurological: Present alert and oriented X3 Routine Psychiatric Exam Psychiatric: Present cooperative Progress Note: A&P Assessment and plan (1) Acute respiratory failure with hypoxia: Status: Acute (2) Pneumonia: Status: Acute (3) Cardiogenic shock: Status: Acute (4) Acute on chronic heart failure with reduced ejection fraction and diastolic dysfunction: Status: Acute (5) On mechanically assisted ventilation: Status: Acute (6) Acute kidney injury: Status: Acute (7) Pulmonary edema with congestive heart failure: Status: Acute (8) Bilateral leg edema: Status: Acute (9) Tobacco abuse: Status: Chronic (10) Hyperlipidemia: Status: Chronic (11) History of coronary artery bypass graft: Status: Acute (12) Depression: Status: Chronic (13) Diabetes mellitus: Status: Chronic Assessment and Plan Assessment and Plan for All Diagnoses:: Acute on Chronic HFpEF - known dx with EF 40% sp [place] ICD 2020? - seen in office 3 mo ago w/worsening edema/ascites, testing ordered but pt did not f/ - came to hospital with progressive vol overload sx x1 month - repeat ECHO here showed EF down to 10% - took to clinical laboratory assistant and he developed resp failure and acute cardiogenic shock requiring intubation, milrinone, Amio, and bumex drips - weaned off of drips over the weekend - device interrogation indicates pt probably having frequent PMT which may have reduced his EF and led to CHF exacerbation - took back to clinical laboratory assistant 09/27 - nonobstructive coronary disease, EDP remains 25 - cont progressive titration of GDMT and diuresis - poor prognosis, may benefit from device upgrade later - 09/28: Patient feeling great, he is diuresed approximately 35 pounds. He feels back to baseline and dry weight. Labs and vitals are stable. We discussed at length the importance of medications and daily weights as well as how to titrate Bumex as an outpatient. Pacemaker Mediated Tachycardia - intially appeared to be VT - [place] device settings changed over the weekend and having no further episodes Coronary artery disease s/p CABG 2020 - med management [facility] 07/2022 - denie angina here, but has worse EF - repeat [facility] here shows nonobstructive dz - cont DAPT, Statin Acute kidney injury-resolving - Creatinine peaked at 2.1, has improved to 1.1 Htn -Improving with heart failure GDMT CV summary 09/28: Patient has severe four-chamber dilation with a significant decline in his EF over the past year which may be secondary to pacemaker mediated tachycardia which lead to volume overload and eventually cardiogenic shock this admission. Device settings changed over the weekend and he has had no further episodes. He has diuresed approx 20L and is toelrating GDMT for heart failure. Repeat left heart cath showed nonobstructive disease. He will benefit from ongoing diuresis at home. He needs BMP and office f/u with us in 1 week. CV DC Meds: ASA 81 mg p.o. daily Plavix 75 mg p.o. daily Atorvastatin 80 mg p.o. daily Entresto 49-51 mg p.o. twice daily Aldactone 25 mg p.o. daily Bumex 2 mg 1 to 2 tablets daily as needed for edema
--- NOTE | 2023-10-01 15:16 | CARE MANAGER ---
Attempted to contact patient x2 related to hospital discharge. No VM option. ANAT Cruz
--- NOTE | 2023-10-28 07:55 | P.DS_ITS ---
General Admission date:: 09/24/23 Discharge date: 10/28/23 HPI HPI HPI: Mr. Vargas is a 63-year-old male with heart failure with reduced ejection fraction, history of CABG, hypertension, hyperlipidemia, ANNA, diabetes. States he has not smoked in over 20 years. Presented to the ER with complaint of worsening edema over the past 1 to 2 weeks. He has noticed the development of blisters and increased pain in his legs over the past week. Denies fever, nausea, vomiting, diarrhea. Reports compliance with his medications. Is on Bumex daily. Has had decreased urine output over the past 24 to 48 hours. On arrival to the ER, complains of some shortness of breath, worse with exertion. Denies any chest pain. adds that he has been forgetful over the past few months. On workup in the ER, concerning for kidney injury with elevated creatinine at 1.9 (baseline normal at 1). Frankly volume overloaded on physical exam. Chest imaging concerning for increased pulmonary congestion. Medicine consulted for admission and further management of volume overload and suspected heart failure exacerbation. On arrival to the floor, patient is stable on room air. Has edema up to his thighs. at bedside helps give additional history. Echo in January with EF 40 to 45%. Elevated RVSP at 30 to 35 mmHg Implantable defibrillator in place -Follows with cardiology, most recently seen in July Abdominal ultrasound and February with fatty infiltration -Seen by Radha Mackey in July Hospital Course Hospital Course Hospital Course: 63-year-old male with history of heart failure, presented with swelling in his legs and shortness of breath. Found to have GITA and volume overload. Discussed case with ER physician, request admission for diuresis and further management of kidney injury. Medicine agreed to admit. Initiated on Bumex drip. Had poor response. Taken for right heart cath this morning, decompensated necessitating mechanical ventilation and intubation. Patient has done well overnight. Diuresing well, -20 L in since admission. On room air. Blood pressure mildly elevated. Continuing to adjust goal-directed therapy. Seeing improvement in kidney function labs. at bedside. Continues to require inpatient care. Going for repeat heart cath today. Therapy evaluated, stable to discharge home with home health. Cardiogenic shock - improved Acute on chronic heart failure with reduced ejection fraction - improved patient had cardiac cath performed, which was negative for obstruction. patient was evaluated by cardiology and pulmonary during hospitalization and was deemed stable for discharge. Repeat left heart cath showed nonobstructive disease. He will benefit from eulalio oing diuresis at home. He needs BMP and office f/u with us in 1 week. cardiology recommended following meds at DC CV DC Meds: ASA 81 mg p.o. daily Plavix 75 mg p.o. daily Atorvastatin 80 mg p.o. daily Entresto 49-51 mg p.o. twice daily Aldactone 25 mg p.o. daily Bumex 2 mg 1 to 2 tablets daily as needed for edema Exam Data for Last 24 hours Vital signs and Labs for Last 24 Hours: Temp Pulse Resp BP Pulse Ox O2 Del Method O2 Flow Rate 98 F 79 16 140/87 94 L Room Air 4 09/29/23 11:46 09/29/23 11:46 09/29/23 11:46 09/29/23 11:46 09/29/23 11:46 09/29/23 11:00 09/28/23 14:37 FiO2 2 09/25/23 14:00 Constitutional Constitutional: no acute distress *Routine HEENT Exam Head: Present normocephalic Eye: Present EOMI and PERRL ENT: Present mucous membranes moist *Routine Neck Exam Neck: Present supple; Absent lymphadenopathy *Routine Respiratory Exam Respiratory: Present CTA bilaterally *Routine Cardiovascular Exam Cardiovascular: Present RRR *Routine Abdominal Exam Abdominal: Present soft and normoactive bowel sounds; Absent tenderness *Routine Extremities Exam Extremities: Absent cyanosis, clubbing or edema *Routine Skin Exam Skin: Present warm; Absent rash *Routine Neurological Exam Neurological: Present alert and oriented X3 DS: Diagnosis Discharge Diagnosis (1) Acute respiratory failure with hypoxia: Status: Acute Code(s): J96.01 - Acute respiratory failure with hypoxia (2) Pneumonia: Status: Acute Code(s): J18.9 - Pneumonia, unspecified organism (3) Cardiogenic shock: Status: Acute Code(s): R57.0 - Cardiogenic shock (4) Acute on chronic heart failure with reduced ejection fraction and diastolic dysfunction: Status: Acute Code(s): I50.43 - Acute on chronic combined systolic (congestive) and diastolic (congestive) heart failure (5) On mechanically assisted ventilation: Status: Acute Code(s): Z99.11 - Dependence on respirator [ventilator] status (6) Acute kidney injury: Status: Acute Code(s): N17.9 - Acute kidney failure, unspecified (7) Pulmonary edema with congestive heart failure: Status: Acute Code(s): I50.1 - Left ventricular failure, unspecified (8) Bilateral leg edema: Status: Acute Code(s): R60.0 - Localized edema (9) Tobacco abuse: Status: Chronic Code(s): Z72.0 - Tobacco use (10) Hyperlipidemia: Status: Chronic Code(s): E78.5 - Hyperlipidemia, unspecified Qualifiers: Hyperlipidemia type: unspecified Qualified Code(s): E78.5 - Hyperlipidemia, unspecified (11) History of coronary artery bypass graft: Status: Acute Code(s): Z95.1 - Presence of aortocoronary bypass graft (12) Depression: Status: Chronic Code(s): F32.A - Depression, unspecified Qualifiers: Active/Remission status: currently active Depression Type: major depressive disorder Major depression episode severity: moderate Major depression recurrence: single episode Qualified Code(s): F32.1 - Major depressive disorder, single episode, moderate (13) Diabetes mellitus: Status: Chronic Code(s): E11.9 - Type 2 diabetes mellitus without complications Qualifiers: Diabetes mellitus complication status: with hyperglycemia Diabetes mellitus oil heaterman insulin use: without oil heaterman use Diabetes mellitus type: type 2 Qualified Code(s): E11.65 - Type 2 diabetes mellitus with hyperglycemia Meds Home Medications and Allergies Home Medications Medication Instructions Recorded Confirmed Type bumetanide 2 mg tablet 1 mg PO DAILY 09/03/23 10/20/23 History carvedilol 12.5 mg tablet 12.5 mg PO DAILY 09/03/23 10/20/23 History clopidogrel 75 mg tablet 75 mg PO DAILY 09/03/23 10/20/23 History gabapentin 600 mg tablet 600 mg PO QID 09/03/23 10/20/23 History glimepiride 4 mg tablet 4 mg PO DAILY 09/03/23 10/20/23 History oxycodone-acetaminophen 10 mg-325 1 tab PO QIDP PRN Moderate Pain 09/03/23 10/20/23 History mg tablet (Scale Score 5-6) sitagliptin phosphate 100 mg 100 mg PO DAILY 09/03/23 10/20/23 History tablet (Januvia) metformin 500 mg tablet,extended 1,000 mg PO BID 09/23/23 10/20/23 History release 24 hr omeprazole 40 mg capsule,delayed See Rx Instructions .Route 09/28/23 10/20/23 Rx release .COMPLEX #60 caps cefdinir 300 mg capsule 300 mg PO Q12H 5 days #10 caps 09/29/23 10/20/23 Rx duloxetine 60 mg capsule,delayed 60 mg PO DAILY 10/05/23 10/20/23 History release sod picosulf 10 mg-magnes 3.5 160 ml PO DAILY bowel prep 2 doses 10/09/23 Rx gram-citric 12 gram/160 mL oral #320 mL solution (Clenpiq) atorvastatin 40 mg tablet See Rx Instructions .Route 10/15/23 10/20/23 Rx .COMPLEX #90 ea spironolactone 25 mg tablet 50 mg (2 x 25 mg) PO DAILY 30 days 10/16/23 10/20/23 Rx #60 tabs sacubitril 97 mg-valsartan 103 mg 1 tab PO BID #60 tabs 10/27/23 Rx tablet (Entresto) New Prescriptions to Start Prescriptions: Gaurang Sands Allergies Allergy/AdvReac Type Severity Reaction Status Date / Time dobutamine AdvReac Unknown Hypertensio Verified 10/20/23 09:26 n Discharge Plan Disposition Patient Disposition: Home Health Service Condition: Fair Discharge Order Discharge Orders: Discharge Order (Routine); Ordered 09/29/23 Ordered By: Gaurang Dean Follow up Plan Follow up with: Bebeto Armenta DO [Staff Physician] - 10/06/23 9:45 am Devan Oconnell MD [Staff Physician] - 10/05/23 10:00 am Ana Askew MD [Physician] - 10/14/23 1:15 pm Prescriptions/Medication Reconciliation: New cefdinir 300 mg capsule 300 mg PO Q12H 5 Days Qty: 10 0RF Continued omeprazole 40 mg capsule,delayed release(/EC) See Rx Instructions .ROUTE .COMPLEX Qty: 60 0RF Dose Instruction: TAKE 1 CAPSULE BY MOUTH TWICE A DAY SWALLOW WHOLE; DO NOT CRUSH, CHEW, DISSOLVE, CUT, BREAK Rx Instructions: TAKE 1 CAPSULE BY MOUTH TWICE A DAY SWALLOW WHOLE; DO NOT CRUSH, CHEW, DISSOLVE, CUT, BREAK metformin 500 mg tablet extended release 24 hr 1,000 mg PO BID Rx Instructions: TAKE 2 TABLETS BY MOUTH TWICE DAILY gabapentin 600 mg tablet 600 mg PO QID carvedilol 12.5 mg tablet 12.5 mg PO DAILY bumetanide 2 mg tablet 1 mg PO DAILY clopidogrel 75 mg tablet 75 mg PO DAILY Patient Comments: TAKE 1 TABLET BY MOUTH DAILY FOR BLOOD THINNER oxycodone-acetaminophen 10-325 mg tablet 1 tab PO QIDP PRN (Reason: Moderate Pain (Scale Score 5-6)) glimepiride 4 mg tablet 4 mg PO DAILY Januvia 100 mg tablet 100 mg PO DAILY Patient Comments: TAKE 1 TABLET BY MOUTH ONCE DAILY Discontinued lisinopril-hydrochlorothiazide 20-12.5 mg tablet 2 tab PO BID Patient Comments: TAKE 2 TABLETS BY MOUTH TWICE DAILY No Action duloxetine 60 mg capsule,delayed release(DR/EC) 60 mg PO DAILY Clenpiq 10 mg-3.5 gram- 12 gram/160 mL solution 160 ml PO DAILY Qty: 320 0RF Rx Instructions: take first dose at 5-9PM evening before colonoscopy; 2nd dose the next day approximately 5 hrs before colonoscopy atorvastatin 40 mg tablet See Rx Instructions .ROUTE .COMPLEX Qty: 90 3RF Dose Instruction: TAKE 1 TABLET BY MOUTH ONCE DAILY Rx Instructions: TAKE 1 TABLET BY MOUTH ONCE DAILY spironolactone 25 mg tablet 50 mg PO DAILY 30 Days Qty: 60 5RF Entresto 97-103 mg tablet 1 tab PO BID Qty: 60 2RF Problem Reconciliation Problems Reviewed?: Yes Patient Discharge Instructions ACTIVITY: Ambulate as tolerated DIET: continue same diet Patient Instructions: Low Glycemic Index Diets (Alternative Therapy), Low- Carbohydrate Diet (Alternative Therapy), Heart-Healthy Diet, Carbohydrate- Counting Diet, DI for Cardiac Catheterization, DI for Surgical Site Infection, DI for Acute Kidney Injury, DI for Heart Failure Exacerbations Providers Primary Care Provider: Anita Dumas Admit Provider: Donnell Ivey Attending Provider: Donnell Ivey
== END 2023-09-29 13:11 | disposition home health service (06) | DRG 286 ==
LOC: ER 13:22 → 2ND 14:37
PROVIDERS: Internal Medicine; Internal Medicine Pulmonary Disease; Nurse Practitioner; Admitting Provider Internal Medicine Adolescent Medicine; Emergency Provider Emergency Medicine; PCP Physician Assistant; Visit Provider Internal Medicine Adolescent Medicine
PROC: 4A023N6 Measurement of Cardiac Sampling and Pressure, Right Heart, Percutaneous Approach (ICD-10-PCS; principal; 2023-09-24 12:30)
PROC: 4A023N7 Measurement of Cardiac Sampling and Pressure, Left Heart, Percutaneous Approach (ICD-10-PCS; principal; 2023-09-28 13:30)
DX: I11.0 Hypertensive heart disease with heart failure (principal); I50.43 Acute on chronic combined systolic (congestive) and diastolic (congestive) heart failure; R57.0 Cardiogenic shock; J96.00 Acute respiratory failure, unspecified whether with hypoxia or hypercapnia; J18.9 Pneumonia, unspecified organism; J96.01 Acute respiratory failure with hypoxia; F32.1 Major depressive disorder, single episode, moderate; N17.9 Acute kidney failure, unspecified; I50.1 Left ventricular failure, unspecified; J43.9 Emphysema, unspecified; F41.9 Anxiety disorder, unspecified; E11.65 Type 2 diabetes mellitus with hyperglycemia; I25.10 Atherosclerotic heart disease of native coronary artery without angina pectoris; F32.A Depression, unspecified; G47.33 Obstructive sleep apnea (adult) (pediatric); Z95.1 Presence of aortocoronary bypass graft; Z86.73 Personal history of transient ischemic attack (TIA), and cerebral infarction without residual deficits; F17.210 Nicotine dependence, cigarettes, uncomplicated; Z79.4 Long term (current) use of insulin; E83.42 Hypomagnesemia; I42.9 Cardiomyopathy, unspecified; G47.00 Insomnia, unspecified; Z95.810 Presence of automatic (implantable) cardiac defibrillator; I65.29 Occlusion and stenosis of unspecified carotid artery; Z79.84 Long term (current) use of oral hypoglycemic drugs; K21.9 Gastro-esophageal reflux disease without esophagitis
CPT/HCPCS: 36415; 71045; 80048; 80053; 80061; 82140; 82803; 82810; 82962; 83036; 83605; 83735; 83880; 84100; 84484; 85025; 85610; 85730; 87070; 87077; 87186; 87205; 93005; 93306; 93451; 93459; 94002; 94618; 94640; 94761; 97162; 97165; 97530; 99152; 99153; 99285; C1725; C1760; C1769; C1894; G0378; J0282; J0696; J1205; J1644; J2001; J2260; J2405; J2704; J3475; J7060; Q9967

== ENCOUNTER 2023-10-05 11:07 | Outpatient (CLI) | payer MEDICARE, SELFPAY ==
[2023-10-05 11:25] LABS: Basophils % 0.9 % (0.1-2.0); Eosinophils # 0.1 K/mm3 (0.0-0.4); Eosinophils % 2.7 % (0.1-12.0); Hemoglobin 10.8 g/dL (14.1-18.0); Lymphocytes # 1.2 K/mm3 (0.7-4.5); Lymphocytes % 24.8 % (10-50); Mean Corpuscular HGB Conc 29.1 g/dL (31.8-35.4); Mean Corpuscular Hemoglobin 24.1 pg (27.0-31.2); Mean Corpuscular Volume 82.9 fl (80-94); Mean Platelet Volume 11.2 fl (7.4-10.4); Monocytes # 0.3 K/mm3 (0.1-1.0); Monocytes % 6.9 % (1.7-9.3); Neutrophils % 64.8 % (37.0-80.0); Platelet Count 161 K/mm3 (142-424); Red Blood Count 4.46 M/mm3 (4.60-6.20); Red Cell Distribution Width 21.9 % (11.5-17.5); White Blood Count 4.7 K/mm3 (4.8-10.8)
[2023-10-05 12:05] LABS: Alanine Aminotransferase 17 U/L (12-78); Albumin Level 3.5 g/dl (3.5-5.0); Alkaline Phosphatase 101 U/L (38-126); Anion Gap 13.7 mEq/L (5-15); Aspartate Amino Transferase 21 U/L (17-59); Bilirubin,Direct 0.4 mg/dl (0.0-0.4); Bilirubin,Indirect 0.3 mg/dL (0.0-0.9); Bilirubin,Total 0.7 mg/dl (0.2-1.3); Bilirubin,Unconjugated 0.3 mg/dL (0.0-1.1); Blood Urea Nitrogen 24 mg/dl (9-20); Carbon Dioxide 29 mmol/L (22.0-30.0); Chloride 101 mmol/L (98-107); Estimated Glomerular Filt Rate 68 ml/min (>60); GFR (African American) 82 ML/MIN (>60); Glucose 104 mg/dl (74-100); Magnesium 1.4 mg/dl (1.6-2.3); Potassium 4.7 mmoL/L (3.5-5.1); Sodium 139 mmol/L (136-145); Total Protein,Serum 6.8 g/dl (6.3-8.2)
[2023-10-05 12:21] LABS: Free T4 (Free Thyroxine) 1.27 ng/dl (0.78-2.19)
[2023-10-05 12:36] LABS: Thyroid Stimulating Hormone 5.28 uIU/mL (0.465-4.68)
== END 2023-10-05 23:59 | disposition home or self-care (01) ==
LOC: LAB 11:08
PROVIDERS: PCP Internal Medicine; Visit Provider Nurse Practitioner
DX: R57.0 Cardiogenic shock (principal); R06.09 Other forms of dyspnea; R60.9 Edema, unspecified; I51.9 Heart disease, unspecified; I10 Essential (primary) hypertension; I72.5 Aneurysm of other precerebral arteries; Z72.0 Tobacco use; I65.03 Occlusion and stenosis of bilateral vertebral arteries; I50.20 Unspecified systolic (congestive) heart failure; R94.31 Abnormal electrocardiogram [ECG] [EKG]; Z95.1 Presence of aortocoronary bypass graft; E78.5 Hyperlipidemia, unspecified; I25.10 Atherosclerotic heart disease of native coronary artery without angina pectoris; Z86.73 Personal history of transient ischemic attack (TIA), and cerebral infarction without residual deficits; E11.65 Type 2 diabetes mellitus with hyperglycemia; Z79.84 Long term (current) use of oral hypoglycemic drugs
CPT/HCPCS: 36415; 80048; 80076; 83735; 84439; 84443; 85025

== ENCOUNTER 2023-11-01 17:12 | Emergency (ER) | payer MEDICARE, SELFPAY ==
[2023-11-01 17:13] VITALS: BP 123/81; PULSE 89; RESP 16; TEMP 36.9; O2SAT 97; BMI 34.8
--- NOTE | 2023-11-01 17:16 | ED_ITS ---
<Statement entered by Samy Bullard MD - 11/01/23 22:56> I was consulted by the TANVIR, and we discussed the complexity of the problems being addressed. I approved the treatment and management plan for this patient's care in the emergency department, thus performing a substantive portion of the medical decision making. Samy Bullard MD, KENDAL, FACEP Discharge Plan Disposition Patient Disposition: Home, Self-Care Condition: Good Prescriptions Prescriptions: No Action duloxetine 60 mg capsule,delayed release(DR/EC) 60 mg PO DAILY omeprazole 40 mg capsule,delayed release(DR/EC) See Rx Instructions .ROUTE .COMPLEX Qty: 60 0RF Dose Instruction: TAKE 1 CAPSULE BY MOUTH TWICE A DAY SWALLOW WHOLE; DO NOT CRUSH, CHEW, DISSOLVE, CUT, BREAK Rx Instructions: TAKE 1 CAPSULE BY MOUTH TWICE A DAY SWALLOW WHOLE; DO NOT CRUSH, CHEW, DISSOLVE, CUT, BREAK Clenpiq 10 mg-3.5 gram- 12 gram/160 mL solution 160 ml PO DAILY Qty: 320 0RF Rx Instructions: take first dose at 5-9PM evening before colonoscopy; 2nd dose the next day approximately 5 hrs before colonoscopy atorvastatin 40 mg tablet See Rx Instructions .ROUTE .COMPLEX Qty: 90 3RF Dose Instruction: TAKE 1 TABLET BY MOUTH ONCE DAILY Rx Instructions: TAKE 1 TABLET BY MOUTH ONCE DAILY spironolactone 25 mg tablet 50 mg PO DAILY 30 Days Qty: 60 5RF Entresto 97-103 mg tablet 1 tab PO BID Qty: 60 2RF (DME) OneTouch Ultra Test Strip See Rx Instructions .Route Qty: 100 2RF Rx Instructions: As directed or bid metformin 500 mg tablet extended release 24 hr 1,000 mg PO BID Rx Instructions: TAKE 2 TABLETS BY MOUTH TWICE DAILY cefdinir 300 mg capsule 300 mg PO Q12H 5 Days Qty: 10 0RF gabapentin 600 mg tablet 600 mg PO QID carvedilol 12.5 mg tablet 12.5 mg PO DAILY bumetanide 2 mg tablet 1 mg PO DAILY clopidogrel 75 mg tablet 75 mg PO DAILY Patient Comments: TAKE 1 TABLET BY MOUTH DAILY FOR BLOOD THINNER oxycodone-acetaminophen 10-325 mg tablet 1 tab PO QIDP PRN (Reason: Moderate Pain (Scale Score 5-6)) glimepiride 4 mg tablet 4 mg PO DAILY Januvia 100 mg tablet 100 mg PO DAILY Patient Comments: TAKE 1 TABLET BY MOUTH ONCE DAILY Referrals Follow up/Referrals: Anita Dumas PA [Primary Care Provider] - See instructions Activity Restrictions/Add. Instructions Additional Instructions/Restrictions: Follow-up with your medical interpreter this week. Please call your pain management doctor and arrange medication review. Return to ER for any worsening signs or symptoms Clinical Impressions Clinical Impression: Chronic diastolic (congestive) heart failure, Chronic pain Instructions Patient Instructions: DI for Heart Failure, DI for Chronic Pain -- Adult Discharge ED Provider: Samy Bullard General Adult HPI <ISADORA Balbuena - Last Filed: 11/01/23 19:54> General Chief complaint: Shortness of Breath/Dyspnea Stated complaint: fluid gain soa Time Seen by Provider: 11/01/23 17:16 History of Present Illness HPI narrative: Presents for evaluation of initially a 20 pound weight gain overnight as well as pain in his foot groin and shoulder. Patient does have a history of diastolic heart failure and was intubated due to heart failure in the month of September but subsequently has discharge. Patient also has a long history of chronic pain management and is on 15 mg of oxycodone a day. Patient states that he began having increased pain in his foot shoulder and groin and therefore has taken his pain medicine more frequently that he is prescribed and thus has run out. Patient reports inability to walk on his right foot due to pain, chronic pain in his groin for 25 years that is managed with chronic opiates and pain management in [place], and right shoulder pain. Patient reports dyspnea but no cardiac chest pain fever chills hemoptysis hematochezia melena nausea vomiting diarrhea. Related Data Home Medications Medication Instructions Recorded Confirmed bumetanide 2 mg tablet 1 mg PO DAILY 09/03/23 10/20/23 carvedilol 12.5 mg tablet 12.5 mg PO DAILY 09/03/23 10/20/23 clopidogrel 75 mg tablet 75 mg PO DAILY 09/03/23 10/20/23 gabapentin 600 mg tablet 600 mg PO QID 09/03/23 10/20/23 glimepiride 4 mg tablet 4 mg PO DAILY 09/03/23 10/20/23 oxycodone-acetaminophen 10 mg-325 1 tab PO QIDP PRN Moderate Pain 09/03/23 10/20/23 mg tablet (Scale Score 5-6) sitagliptin phosphate 100 mg 100 mg PO DAILY 09/03/23 10/20/23 tablet (Januvia) metformin 500 mg tablet,extended 1,000 mg PO BID 09/23/23 10/20/23 release 24 hr duloxetine 60 mg capsule,delayed 60 mg PO DAILY 10/05/23 10/20/23 release Previous Rx's Medication Instructions Recorded omeprazole 40 mg capsule,delayed See Rx Instructions .Route 09/28/23 release .COMPLEX #60 caps cefdinir 300 mg capsule 300 mg PO Q12H 5 days #10 caps 09/29/23 sod picosulf 10 mg-magnes 3.5 160 ml PO DAILY bowel prep 2 doses 10/09/23 gram-citric 12 gram/160 mL oral #320 mL solution (Clenpiq) atorvastatin 40 mg tablet See Rx Instructions .Route 10/15/23 .COMPLEX #90 ea spironolactone 25 mg tablet 50 mg (2 x 25 mg) PO DAILY 30 days 10/16/23 #60 tabs sacubitril 97 mg-valsartan 103 mg 1 tab PO BID #60 tabs 10/27/23 tablet (Entresto) blood sugar diagnostic (OneTouch #100 ea 10/30/23 Ultra Test strips) Allergies Allergy/AdvReac Type Severity Reaction Status Date / Time dobutamine AdvReac Unknown Hypertensio Verified 10/20/23 09:26 n [facility] <ISADORA Balbuena - Last Filed: 11/01/23 19:54> [facility] Disclaimer: The information contained in this section may have been updated after the patient was seen, as this information can be updated by other users. Medical History Pneumonia On mechanically assisted ventilation Acute respiratory failure with hypoxia Abdominal pain Constipation Deviated nasal septum Hypertrophy of inferior nasal turbinate Sinusitis Mixed restrictive and obstructive lung disease Cardiac pacemaker in situ Pulmonary emphysema Smoking greater than 30 pack years Dyspnea on exertion Lung mass Nodule of right lung Bilateral chronic serous otitis media Right maxillary sinusitis HFrEF (heart failure with reduced ejection fraction) Impacted cerumen of right ear Dizziness Abnormal electrocardiogram [ECG] [EKG] ANNA (obstructive sleep apnea) Hyperlipidemia Depression Anxiety Gastroesophageal reflux disease Insomnia Coronary artery disease History of TIA (transient ischemic attack) Hypertension Diabetes mellitus Epididymitis Palpitations Opiate withdrawal TIA (transient ischemic attack) Surgical History History of removal of testicle History of hernia surgery History of cholecystectomy History of right mastoidectomy History of coronary artery bypass graft Family History Other Diabetes Social History Smoking Status: Current every day smoker tobacco type: cigarettes packs per day: 1 alcohol intake: never substance use type: denies use current occupational status: disabled Travel in the last 8 weeks: None household members: spouse and children housing: house <ISADORA Balbuena - Last Filed: 11/01/23 19:54> ROS Obtained: Yes Systems reviewed as appropriate & no additional complaints except as documented Physical Exam <ISADORA Balbuena Last Filed: 11/01/23 19:54> General General appearance: alert and in no apparent distress Respiratory Respiratory exam: Absent normal lung sounds bilaterally (Patient has bilateral end expiratory wheezes in the lower lung zavala), respiratory distress or accessory muscle use Cardiovascular Cardiovascular exam: Present regular rate and normal rhythm Abdominal Exam Abdominal exam: Present soft (But obese), tenderness (Suprapubic area) and normal bowel sounds; Absent guarding, rebound or rigidity Extremities Exam Extremities exam: Present full ROM, tenderness (It is tender to palpation in the bilateral lower extremities right greater than left but no palpable cords), normal capillary refill, edema (Bilateral dependent edema) and calf tenderness (Right); Absent normal inspection (Patient has hyperemia of the right lower extremity/foot versus the left) Back Exam Back exam: Present normal inspection and full ROM; Absent tenderness Neurological Exam Neurological exam: Present alert and oriented X3 Medical Decision Making <ISADORA Balbuena Last Filed: 11/01/23 19:54> George Inquiry Pt receiving controlled substance: No Vital Signs: 11/01/23 17:13 11/01/23 18:01 11/01/23 18:30 Temperature 98.4 F Temperature Source Oral Pulse Rate 88 85 Pulse Rate [Radial] 89 Respiratory Rate 16 Blood Pressure 116/72 Blood Pressure [Right Arm] 123/81 Blood Pressure Mean [Right Arm] 95 Blood Pressure Source [Right Arm] Automatic Cuff Blood Pressure Position [Right Arm] Sitting 02 Sat by Pulse Oximetry 97 95 98 Oxygen Delivery Method Room Air Room Air Room Air Lab Data Lab results reviewed: Yes I reviewed the patient's lab results. Lab Results 11/01/23 17:30: PT 12.9 H, INR 1.21 H, Sodium 140, Potassium 4.7, Chloride 108 H , Carbon Dioxide 26, Anion Gap 10.7, BUN 29 H, Creatinine 1.20, Estimated Creat Clear 102, Estimated GFR 61, Est GFR ( Amer) 74, Glucose 158 H, Lactate 1.2, Calcium 8.8, Magnesium 1.4 L, Total Bilirubin 0.6, AST 19, ALT 13, Alkaline Phosphatase 107, NT-Pro-B Natriuret Pep 01349 H, Total Protein 7.1, Albumin 3.8, Globulin 3.3 H, Albumin/Globulin Ratio 1.2 11/01/23 19:30: WBC 4.6 L, RBC 4.07 L, Hgb 10.4 L, Hct 34.0 L, MCV 83.5, MCH 25.5 L, MCHC 30.5 L, RDW 21.8 H, Plt Count 127 L, MPV 11.4 H, Neut % (Auto) 63.5, Lymph % (Auto) 24.1, Mills % (Auto) 7.8, Eos % (Auto) 3.6, Baso % (Auto) 1.0, Neut # (Auto) 2.9, Lymph # (Auto) 1.1, Mills # (Auto) 0.4, Eos # (Auto) 0.2, Baso # (Auto) 0.1 11/01/23 19:30 11/01/23 17:30 Orders (Tests/Meds): ED MEDICATIONS Discontinued Medications Generic Name Dose Route Start Last Admin Trade Name Freq PRN Reason Stop Dose Admin Acetaminophen 1,000 mg 11/01/23 17:37 11/01/23 17:56 Acetaminophen 1,000mg/100ml Vial IV 11/01/23 17:38 1,000 mg ONCE ONE Administration Magnesium Sulfate 2 gm in 50 mls @ 50 mls/hr 11/01/23 17:58 11/01/23 18:20 Magnesium Sulfate 2gm/50ml Premix IV 11/01/23 18:57 50 mls/hr ONCE ONE Administration Ketorolac Tromethamine 15 mg 11/01/23 17:37 11/01/23 17:57 Ketorolac 30mg/Ml Vial IV 11/01/23 17:38 15 mg ONCE ONE Administration ORDERS Category Date Time Status Chest XR -- portable [XR chest portable] Stat Exams 11/01/23 17:38 Completed Foot XR right 2 views [XR foot RT 2V] Stat Exams 11/01/23 17:42 Taken POCUS Point of Care (ER Only) Stat Exams 11/01/23 17:44 Completed BNP [NT Pro Brain Natriuretic Pep.] Stat Lab 11/01/23 17:30 Completed CBC w/Auto Diff [Complete Blood Count Auto Diff] Stat Lab 11/01/23 19:30 Completed CMP [Comprehensive Metabolic Panel] Stat Lab 11/01/23 17:30 Completed INR [Prothrombin Time INR] Stat Lab 11/01/23 17:30 Completed Lactic Acid Stat Lab 11/01/23 17:30 Completed Magnesium Stat Lab 11/01/23 17:30 Completed Medical Decision Narrative: In summary patient is a 63-year-old male who presents to the emergency department for evaluation of pain, weight gain and dyspnea. Patient is hemodynamically stable satting at 97% on room air with a respiratory rate of 16 upon arrival, afebrile. Physical exam does show right greater than left dependent edema, hyperemia of the right lower extremity and foot tenderness to palpation in the right calf but no palpable cords, no increased work of breathing, normal sinus rhythm on the bedside monitor, satting at 97% on room air currently. Differential diagnosis includes DVT versus peripheral neuropathy versus heart failure versus chronic pain etc. Initial workup will be conducted with hematologic labs x-ray of the right foot, chest x-ray. Initial interventions include Toradol and Tylenol. Initial workup reviewed by me shows an elevated NT proBNP, my informal interpretation of his plain film chest x-ray shows pulmonary edema and cardiomegaly but appears to be chronic and and actually improved from his last chest x-ray in September. On review of his weight over the last 90 days he is at his normal baseline of 107 kg which was weighed with a bedside scale today in the ER. Upon reevaluation reports improvement in his right lower extremity pain and his shortness of breath is better. Given that I had interactive discussion with the patient regarding his findings and recommend discharge home. Patient verbalized understanding and agreement <Samy Bullard MD - Last Filed: 11/01/23 17:50> Vital Signs: 11/01/23 17:13 11/01/23 18:01 11/01/23 18:30 Temperature 98.4 F Temperature Source Oral Pulse Rate 88 85 Pulse Rate [Radial] 89 Respiratory Rate 16 Blood Pressure 116/72 Blood Pressure [Right Arm] 123/81 Blood Pressure Mean [Right Arm] 95 Blood Pressure Source [Right Arm] Automatic Cuff Blood Pressure Position [Right Arm] Sitting 02 Sat by Pulse Oximetry 97 95 98 Oxygen Delivery Method Room Air Room Air Room Air Lab Data Lab Results 11/01/23 17:30: PT 12.9 H, INR 1.21 H, Sodium 140, Potassium 4.7, Chloride 108 H , Carbon Dioxide 26, Anion Gap 10.7, BUN 29 H, Creatinine 1.20, Estimated Creat Clear 102, Estimated GFR 61, Est GFR ( Amer) 74, Glucose 158 H, Lactate 1.2, Calcium 8.8, Magnesium 1.4 L, Total Bilirubin 0.6, AST 19, ALT 13, Alkaline Phosphatase 107, NT-Pro-B Natriuret Pep 37765 H, Total Protein 7.1, Albumin 3.8, Globulin 3.3 H, Albumin/Globulin Ratio 1.2 11/01/23 19:30: WBC 4.6 L, RBC 4.07 L, Hgb 10.4 L, Hct 34.0 L, MCV 83.5, MCH 25.5 L, MCHC 30.5 L, RDW 21.8 H, Plt Count 127 L, MPV 11.4 H, Neut % (Auto) 63.5, Lymph % (Auto) 24.1, Mills % (Auto) 7.8, Eos % (Auto) 3.6, Baso % (Auto) 1.0, Neut # (Auto) 2.9, Lymph # (Auto) 1.1, Mills # (Auto) 0.4, Eos # (Auto) 0.2, Baso # (Auto) 0.1 Orders (Tests/Meds): ED MEDICATIONS Discontinued Medications Generic Name Dose Route Start Last Admin Trade Name Freq PRN Reason Stop Dose Admin Acetaminophen 1,000 mg 11/01/23 17:37 11/01/23 17:56 Acetaminophen 1,000mg/100ml Vial IV 11/01/23 17:38 1,000 mg ONCE ONE Administration Magnesium Sulfate 2 gm in 50 mls @ 50 mls/hr 11/01/23 17:58 11/01/23 18:20 Magnesium Sulfate 2gm/50ml Premix IV 11/01/23 18:57 50 mls/hr ONCE ONE Administration Ketorolac Tromethamine 15 mg 11/01/23 17:37 11/01/23 17:57 Ketorolac 30mg/Ml Vial IV 11/01/23 17:38 15 mg ONCE ONE Administration ORDERS Category Date Time Status Chest XR -- portable [XR chest portable] Stat Exams 11/01/23 17:38 Completed Foot XR right 2 views [XR foot RT 2V] Stat Exams 11/01/23 17:42 Taken POCUS Point of Care (ER Only) Stat Exams 11/01/23 17:44 Completed BNP [NT Pro Brain Natriuretic Pep.] Stat Lab 11/01/23 17:30 Completed CBC w/Auto Diff [Complete Blood Count Auto Diff] Stat Lab 11/01/23 19:30 Completed CMP [Comprehensive Metabolic Panel] Stat Lab 11/01/23 17:30 Completed INR [Prothrombin Time INR] Stat Lab 11/01/23 17:30 Completed Lactic Acid Stat Lab 11/01/23 17:30 Completed Magnesium Stat Lab 11/01/23 17:30 Completed Procedures <Samy Bullard MD - Last Filed: 11/01/23 17:50> Miscellaneous Procedure Procedure Performed: Structures identified Common femoral veins and popliteal veins RLE Findings complete compression of bilateral common femoral veins and bilateral popliteal veins with normal augmentation Impression no evidence of RLE DVT The study was performed by me and I personally interpreted all images and videos based on my clinical judgment these images were adequate and did not necessitate further imaging Critical Care <ISADORA Balbuena - Last Filed: 11/01/23 19:54> Critical Care Time Critical Care Time: No
--- NOTE | 2023-11-01 17:37 | ECG_ITS ---
APPROVED REPORT Exam: Resting ECG HR:89 bpm ECG Measurements Heart Rate 89 AXES VT 182 P 81 QRSd 105 QRS -66 QT 376 T 103 QTc 423 Conclusion SINUS RHYTHM WITH OCCASIONAL VENTRICULAR PREMATURE COMPLEXES LEFT ANTERIOR FASCICULAR BLOCK [QRS AXIS <= -45, QR IN I, RS IN II] POSSIBLE ANTERIOR MYOCARDIAL INFARCTION , PROBABLY OLD [30 ms Q WAVE IN V3/V4, OR R < 0.2 mV IN V4] ABNORMAL ECG UNCONFIRMED REPORT Electronically signed by : Donnell Bullard, 11/01/2023 22:58:24
--- NOTE | 2023-11-01 17:38 | XR_ITS ---
PROCEDURE INFORMATION: Exam: XR Chest Exam date and time: 11/01/2023 5:52 PM Age: 63 years old Clinical indication: Dyspnea TECHNIQUE: Imaging protocol: Radiologic exam of the chest. Views: 1 view. COMPARISON: CR XR CHEST PORTABLE 09/25/2023 10:48 AM FINDINGS: Tubes, catheters and devices: A left subclavian pacemaker device is present, and its leads are in appropriate position. Lungs: Lung volumes are mildly improved when compared with prior study. The left-sided pacemaker obscures visualization of the left upper lobe. There are mildly increased hazy perihilar and bibasilar opacities which are not dramatically changed given differences in imaging technique and lung volumes. Pleural spaces: No pleural effusions. Negative for pneumothorax. Heart/Mediastinum: There is pulmonary vascular equalization. The heart is mildly enlarged. Bones/joints: . Sternal suture wires are in place suggesting prior median sternotomy and postoperative changes are present involving the mediastinum. There is no evidence of acute fracture. Multiple left-sided rib fractures are present. IMPRESSION: 1. Mildly improved lung volumes. 2. Stable mildly increased hazy perihilar and bibasilar opacities given differences in lung volumes which may reflect atelectasis, edema, or pneumonia. 3. Mild stable cardiomegaly.
--- NOTE | 2023-11-01 17:40 | PC.NURSE ---
Dr. Bullard at bedside
--- NOTE | 2023-11-01 17:42 | XR_ITS ---
PROCEDURE INFORMATION: Exam: XR Right Foot Exam date and time: 11/01/2023 5:52 PM Age: 63 years old Clinical indication: Pain; Foot; Right; Additional info: Right foot pain TECHNIQUE: Imaging protocol: Radiologic exam of the right foot. Views: 1 or 2 views. COMPARISON: CR XR KNEE RT 2V 05/25/2022 3:54 PM FINDINGS: Bones/joints: There is no evidence of acute fracture or dislocation. Mild osteoarthritic degenerative changes involve the 1st MTP joint and the talonavicular joint.Calcaneal spurs are demonstrated at the origin of the plantar fascia and the insertion of the Achilles tendon. Soft tissues: No significant soft tissue edema. No subcutaneous emphysema or radiopaque foreign bodies. IMPRESSION: 1. No acute posttraumatic osseous injury. 2. Mild degenerative changes involve the 1st MTP joint and talonavicular joint. 3. Prominent calcaneal spurs.
[2023-11-01 17:51] LABS: Chloride 108 mmol/L (98-107); Potassium 4.7 mmoL/L (3.5-5.1); Sodium 140 mmol/L (136-145)
[2023-11-01 17:54] LABS: Alanine Aminotransferase 13 U/L (12-78); Albumin Level 3.8 g/dl (3.5-5.0); Albumin/Globulin Ratio 1.2 (1.1-1.8); Alkaline Phosphatase 107 U/L (38-126); Anion Gap 10.7 mEq/L (5-15); Aspartate Amino Transferase 19 U/L (17-59); Bilirubin,Total 0.6 mg/dl (0.2-1.3); Blood Urea Nitrogen 29 mg/dl (9-20); Calcium 8.8 mg/dl (8.4-10.2); Carbon Dioxide 26 mmol/L (22.0-30.0); Creatinine Clearance Estimated 102 mL/min (50-200); Estimated Glomerular Filt Rate 61 ml/min (>60); GFR (African American) 74 ML/MIN (>60); Globulin 3.3 g/dL (1.3-3.2); Glucose 158 mg/dl (74-100); Total Protein,Serum 7.1 g/dl (6.3-8.2)
[2023-11-01 17:55] LABS: Lactic Acid 1.2 mmol/L (0.7-2.1); Magnesium 1.4 mg/dl (1.6-2.3)
[2023-11-01] MEDS: ACETAMINOPHEN 1,000MG/100ML VIAL 1000 MG IV (17:56)
[2023-11-01 17:57] LABS: INR 1.21 (0.9-1.1); Prothrombin Time 12.9 seconds (10.1-12.5)
[2023-11-01] MEDS: KETOROLAC 30MG/ML VIAL 15 MG IV (17:57)
[2023-11-01 18:01] VITALS: PULSE 88; O2SAT 95
[2023-11-01 18:05] LABS: NT Pro Brain Natriuretic Pep. 17300 pg/mL (0-125)
[2023-11-01] MEDS: MAGNESIUM SULFATE IN WATER 2 GM/50 ML PIGGYBACK IV (18:20)
[2023-11-01 18:30] VITALS: BP 116/72; PULSE 85; O2SAT 98
[2023-11-01 19:41] LABS: Basophils # 0.1 K/mm3 (0-0.2); Eosinophils # 0.2 K/mm3 (0.0-0.4); Eosinophils % 3.6 % (0.1-12.0); Hemoglobin 10.4 g/dL (14.1-18.0); Lymphocytes # 1.1 K/mm3 (0.7-4.5); Lymphocytes % 24.1 % (10-50); Mean Corpuscular HGB Conc 30.5 g/dL (31.8-35.4); Mean Corpuscular Hemoglobin 25.5 pg (27.0-31.2); Mean Corpuscular Volume 83.5 fl (80-94); Mean Platelet Volume 11.4 fl (7.4-10.4); Monocytes # 0.4 K/mm3 (0.1-1.0); Monocytes % 7.8 % (1.7-9.3); Neutrophils # 2.9 K/mm3 (1.8-7.8); Neutrophils % 63.5 % (37.0-80.0); Platelet Count 127 K/mm3 (142-424); Red Blood Count 4.07 M/mm3 (4.60-6.20); Red Cell Distribution Width 21.8 % (11.5-17.5); White Blood Count 4.6 K/mm3 (4.8-10.8)
[2023-11-01 19:52] VITALS: BP 148/79; PULSE 80; RESP 20; TEMP 36.7; O2SAT 99
== END 2023-11-01 19:54 | disposition home or self-care (01) ==
PROVIDERS: Physician Assistant; Emergency Provider Student in an Organized Health Care Education/Training Program; PCP Physician Assistant
DX: R06.02 Shortness of breath (principal); I50.32 Chronic diastolic (congestive) heart failure; I11.0 Hypertensive heart disease with heart failure; I49.3 Ventricular premature depolarization; I44.4 Left anterior fascicular block; M79.671 Pain in right foot; M25.511 Pain in right shoulder; R10.30 Lower abdominal pain, unspecified; G89.29 Other chronic pain; F11.20 Opioid dependence, uncomplicated; F17.210 Nicotine dependence, cigarettes, uncomplicated; I25.10 Atherosclerotic heart disease of native coronary artery without angina pectoris; E78.5 Hyperlipidemia, unspecified; K21.9 Gastro-esophageal reflux disease without esophagitis; E11.9 Type 2 diabetes mellitus without complications; Z79.84 Long term (current) use of oral hypoglycemic drugs; Z86.73 Personal history of transient ischemic attack (TIA), and cerebral infarction without residual deficits; Z95.1 Presence of aortocoronary bypass graft; J81.1 Chronic pulmonary edema
CPT/HCPCS: 71045; 73620; 80053; 83605; 83735; 83880; 85025; 85610; 93005; 96365; 96375; 99285; J0131; J1885; J3475

== ENCOUNTER 2023-11-06 19:15 | Emergency (ER) | payer MEDICARE, SELFPAY ==
[2023-11-06 19:16] VITALS: BP 151/90; PULSE 80; RESP 16; TEMP 36.6; O2SAT 100; BMI 30.7
--- NOTE | 2023-11-06 20:14 | HMH.EDGENADL ---
Discharge Plan Disposition Patient Disposition: Home, Self-Care Prescriptions Prescriptions: No Action lisinopril-hydrochlorothiazide 20-12.5 mg tablet PO spironolactone 50 mg tablet PO Patient Comments: TAKE ONE TABLET BY MOUTH EVERY DAY bumetanide 2 mg tablet 1 mg PO BID Qty: 180 0RF omeprazole 40 mg capsule,delayed release(DR/EC) See Rx Instructions .ROUTE .COMPLEX Qty: 180 0RF Dose Instruction: TAKE 1 CAPSULE BY MOUTH TWICE A DAY SWALLOW WHOLE; DO NOT CRUSH, CHEW, DISSOLVE, CUT, BREAK Rx Instructions: TAKE 1 CAPSULE BY MOUTH TWICE A DAY SWALLOW WHOLE; DO NOT CRUSH, CHEW, DISSOLVE, CUT, BREAK clopidogrel 75 mg tablet 75 mg PO DAILY Qty: 90 0RF duloxetine 60 mg capsule,delayed release(DR/EC) 60 mg PO DAILY Qty: 90 0RF glimepiride 4 mg tablet 4 mg PO DAILY Qty: 90 0RF Januvia 100 mg tablet 100 mg PO DAILY Qty: 90 0RF varenicline [Chantix Continuing Month Box] 1 mg tablet 1 mg PO BID Qty: 56 4RF varenicline [Chantix Starting Month Box] 0.5 mg (11)- 1 mg (42) tablets,dose pack See Rx Instructions PO PER PKG DIR 28 Days Qty: 53 0RF Rx Instructions: PO PER PKG DIR (DME) OneTouch Ultra Test Strip See Rx Instructions .Route Qty: 100 2RF Rx Instructions: BID (brittle diabetic, recent hospitalization) Clenpiq 10 mg-3.5 gram- 12 gram/160 mL solution 160 ml PO DAILY Qty: 320 0RF Rx Instructions: take first dose at 5-9PM evening before colonoscopy; 2nd dose the next day approximately 5 hrs before colonoscopy atorvastatin 40 mg tablet See Rx Instructions .ROUTE .COMPLEX Qty: 90 3RF Dose Instruction: TAKE 1 TABLET BY MOUTH ONCE DAILY Rx Instructions: TAKE 1 TABLET BY MOUTH ONCE DAILY Entresto 97-103 mg tablet 1 tab PO BID Qty: 60 2RF carvedilol 12.5 mg tablet 12.5 mg PO BID Qty: 180 1RF metformin 500 mg tablet extended release 24 hr 1,000 mg PO BID Rx Instructions: TAKE 2 TABLETS BY MOUTH TWICE DAILY gabapentin 600 mg tablet 600 mg PO QID oxycodone-acetaminophen 10-325 mg tablet 1 tab PO QIDP PRN (Reason: Moderate Pain (Scale Score 5-6)) Referrals Follow up/Referrals: Anita Dumas PA [Primary Care Provider] - See instructions Activity Restrictions/Add. Instructions Additional Instructions/Restrictions: You had full range of motion including internal and external rotation and abduction and adduction. This is not a dislocated shoulder. No evidence of infection or other emergent medical condition. There is no indication for any x-rays. Clinical Impressions Clinical Impression: Pain in right shoulder, Encounter for medical screening examination Discharge ED Provider: Samy Bullard General Adult HPI General Chief complaint: Extremity Injury, Upper Stated complaint: RT shoulder pain Time Seen by Provider: 11/06/23 20:09 Mode of Arrival: Ambulatory Source of Information: Patient Limitations: No Limitations Description of Symptoms (Recalled from ER Triage Doc. by RN): pt c/o rt shoulder pain x 1 week. pt denies any accident/ trauma History of Present Illness HPI narrative: 63-year-old gentleman presenting today with right shoulder pain. No swelling no erythema no fever no trauma. Home health told him that his shoulder was dislocated but he is normal and full range of motion. Related Data Home Medications Medication Instructions Recorded Confirmed gabapentin 600 mg tablet 600 mg PO QID 09/03/23 11/03/23 oxycodone-acetaminophen 10 mg-325 1 tab PO QIDP PRN Moderate Pain 09/03/23 11/03/23 mg tablet (Scale Score 5-6) metformin 500 mg tablet,extended 1,000 mg PO BID 09/23/23 11/03/23 release 24 hr lisinopril 20 tab PO 11/03/23 11/03/23 mg-hydrochlorothiazide 12.5 mg tablet spironolactone 50 mg tablet mg PO 11/03/23 11/03/23 Previous Rx's Medication Instructions Recorded sod picosulf 10 mg-magnes 3.5 160 ml PO DAILY bowel prep 2 doses 10/09/23 gram-citric 12 gram/160 mL oral #320 mL solution (Clenpiq) atorvastatin 40 mg tablet See Rx Instructions .Route 10/15/23 .COMPLEX #90 ea sacubitril 97 mg-valsartan 103 mg 1 tab PO BID #60 tabs 10/27/23 tablet (Entresto) blood sugar diagnostic (OneTouch #100 ea 11/03/23 Ultra Test strips) bumetanide 2 mg tablet 1 mg (1/2 x 2 mg) PO BID #180 tabs 11/03/23 carvedilol 12.5 mg tablet 12.5 mg PO BID #180 tabs 11/03/23 clopidogrel 75 mg tablet 75 mg PO DAILY #90 tabs 11/03/23 duloxetine 60 mg capsule,delayed 60 mg PO DAILY #90 caps 11/03/23 release glimepiride 4 mg tablet 4 mg PO DAILY #90 tabs 11/03/23 omeprazole 40 mg capsule,delayed See Rx Instructions .Route 11/03/23 release .COMPLEX #180 caps sitagliptin phosphate 100 mg 100 mg PO DAILY #90 tabs 11/03/23 tablet (Januvia) varenicline 0.5 mg (11)-1 mg (42) See Rx Instructions PO PER PKG DIR 11/03/23 tablets in a dose pack (Chantix 28 days #53 tabs Starting Month Box) varenicline 1 mg tablet (Chantix 1 mg PO BID #56 tabs 11/03/23 Continuing Month Box) Allergies Allergy/AdvReac Type Severity Reaction Status Date / Time dobutamine AdvReac Unknown Hypertensio Verified 11/03/23 10:07 n [facility] Disclaimer: The information contained in this section may have been updated after the patient was seen, as this information can be updated by other users. Medical History Pneumonia On mechanically assisted ventilation Acute respiratory failure with hypoxia Abdominal pain Constipation Deviated nasal septum Hypertrophy of inferior nasal turbinate Sinusitis Mixed restrictive and obstructive lung disease Cardiac pacemaker in situ Pulmonary emphysema Smoking greater than 30 pack years Dyspnea on exertion Lung mass Nodule of right lung Bilateral chronic serous otitis media Right maxillary sinusitis HFrEF (heart failure with reduced ejection fraction) Impacted cerumen of right ear Dizziness Abnormal electrocardiogram [ECG] [EKG] ANNA (obstructive sleep apnea) Hyperlipidemia Depression Anxiety Gastroesophageal reflux disease Insomnia Coronary artery disease History of TIA (transient ischemic attack) Hypertension Diabetes mellitus Epididymitis Palpitations Opiate withdrawal TIA (transient ischemic attack) Surgical History History of removal of testicle History of hernia surgery History of cholecystectomy History of right mastoidectomy History of coronary artery bypass graft Family History Other Diabetes Social History Smoking Status: Current every day smoker tobacco type: cigarettes packs per day: 1 alcohol intake: never substance use type: denies use current occupational status: disabled Travel in the last 8 weeks: None household members: spouse and children housing: house ROS Obtained: Yes All systems reviewed & no additional complaints except as documented Physical Exam General General appearance: alert and in no apparent distress Respiratory Respiratory exam: Present normal lung sounds bilaterally Cardiovascular Cardiovascular exam: Present regular rate Extremities Exam Extremities exam: Present other (Right shoulder normal range of motion including internal and external rotation abduction and adduction. No sulcus sign completely normal exam no evidence of any infection.) Neurological Exam Neurological exam: Present alert and oriented X3 Medical Decision Making Georeg Inquiry Pt receiving controlled substance: No Vital Signs: 11/06/23 19:16 Temperature 97.8 F Temperature Source Oral Pulse Rate [Right] 80 Respiratory Rate 16 Blood Pressure [Right Arm] 151/90 H Blood Pressure Mean [Right Arm] 110 02 Sat by Pulse Oximetry 100 Orders (Tests/Meds): ORDERS Category Date Time Status XR shoulder RT min 2V Stat Exams 11/06/23 20:11 Ordered Medical Decision Narrative: 63-year-old with above history and physical completely normal shoulder exam. Unlikely to be infectious. Definitely not dislocated from a clinical standpoint. I offered an x-ray but he declined this after I told him that his physical exam was normal. Does not consistent with shortness location medical screening exam was performed no emergent pathology identified patient was discharged in stable condition Critical Care Critical Care Time Critical Care Time: No
[2023-11-06 20:19] VITALS: BP 144/84; PULSE 75; RESP 16; TEMP 36.6; O2SAT 100
== END 2023-11-06 20:20 | disposition home or self-care (01) ==
PROVIDERS: Emergency Provider Student in an Organized Health Care Education/Training Program; PCP Physician Assistant
DX: M25.511 Pain in right shoulder (principal); F17.210 Nicotine dependence, cigarettes, uncomplicated
CPT/HCPCS: 99282

== ENCOUNTER 2023-11-16 10:11 | Outpatient (CLI) | payer MEDICARE, SELFPAY ==
[2023-11-16 10:35] LABS: Basophils % 0.5 % (0.1-2.0); Eosinophils # 0.1 K/mm3 (0.0-0.4); Eosinophils % 1.8 % (0.1-12.0); Hematocrit 36.5 % (42.0-52.0); Hemoglobin 10.8 g/dL (14.1-18.0); Lymphocytes # 0.6 K/mm3 (0.7-4.5); Mean Corpuscular HGB Conc 29.6 g/dL (31.8-35.4); Mean Corpuscular Hemoglobin 24.6 pg (27.0-31.2); Mean Corpuscular Volume 83.3 fl (80-94); Mean Platelet Volume 11.2 fl (7.4-10.4); Monocytes # 0.4 K/mm3 (0.1-1.0); Monocytes % 7.3 % (1.7-9.3); Neutrophils # 3.9 K/mm3 (1.8-7.8); Neutrophils % 78.5 % (37.0-80.0); Platelet Count 140 K/mm3 (142-424); Red Blood Count 4.38 M/mm3 (4.60-6.20); Red Cell Distribution Width 21.3 % (11.5-17.5); White Blood Count 4.9 K/mm3 (4.8-10.8)
[2023-11-16 11:27] LABS: Alanine Aminotransferase 8 U/L (12-78); Albumin Level 3.6 g/dl (3.5-5.0); Albumin/Globulin Ratio 1.2 (1.1-1.8); Alkaline Phosphatase 96 U/L (38-126); Anion Gap 9.7 mEq/L (5-15); Aspartate Amino Transferase 14 U/L (17-59); Bilirubin,Direct 0.1 mg/dl (0.0-0.4); Bilirubin,Indirect 0.7 mg/dL (0.0-0.9); Bilirubin,Total 0.8 mg/dl (0.2-1.3); Bilirubin,Unconjugated 0.7 mg/dL (0.0-1.1); Blood Urea Nitrogen 34 mg/dl (9-20); Carbon Dioxide 37 mmol/L (22.0-30.0); Chloride 94 mmol/L (98-107); Estimated Glomerular Filt Rate 68 ml/min (>60); GFR (African American) 82 ML/MIN (>60); Glucose 313 mg/dl (74-100); Potassium 3.7 mmoL/L (3.5-5.1); Sodium 137 mmol/L (136-145); Total Protein,Serum 6.6 g/dl (6.3-8.2)
[2023-11-16 11:34] LABS: NT Pro Brain Natriuretic Pep. 18100 pg/mL (0-125)
== END 2023-11-16 23:59 | disposition home or self-care (01) ==
LOC: LAB 10:12
PROVIDERS: PCP Physician Assistant; Visit Provider Physician Assistant
DX: R10.9 Unspecified abdominal pain (principal); K59.00 Constipation, unspecified; I50.20 Unspecified systolic (congestive) heart failure; I42.9 Cardiomyopathy, unspecified; R94.31 Abnormal electrocardiogram [ECG] [EKG]; Z95.1 Presence of aortocoronary bypass graft; E78.5 Hyperlipidemia, unspecified; Z72.0 Tobacco use; K21.9 Gastro-esophageal reflux disease without esophagitis; E11.9 Type 2 diabetes mellitus without complications; I10 Essential (primary) hypertension; Z86.73 Personal history of transient ischemic attack (TIA), and cerebral infarction without residual deficits; I25.10 Atherosclerotic heart disease of native coronary artery without angina pectoris; R60.9 Edema, unspecified; R06.00 Dyspnea, unspecified; R60.0 Localized edema; M79.605 Pain in left leg
CPT/HCPCS: 36415; 80053; 80076; 83880; 85025

== ENCOUNTER 2023-12-03 08:47 | Outpatient (CLI) | payer MEDICARE, SELFPAY ==
[2023-12-03 11:13] LABS: Alanine Aminotransferase 10 U/L (12-78); Albumin Level 3.9 g/dl (3.5-5.0); Alkaline Phosphatase 158 U/L (38-126); Anion Gap 10.6 mEq/L (5-15); Aspartate Amino Transferase 14 U/L (17-59); Bilirubin,Direct 0.1 mg/dl (0.0-0.4); Bilirubin,Indirect 0.8 mg/dL (0.0-0.9); Bilirubin,Total 0.9 mg/dl (0.2-1.3); Bilirubin,Unconjugated 0.8 mg/dL (0.0-1.1); Blood Urea Nitrogen 25 mg/dl (9-20); Calcium 9.6 mg/dl (8.4-10.2); Carbon Dioxide 37 mmol/L (22.0-30.0); Chloride 92 mmol/L (98-107); Estimated Glomerular Filt Rate 61 ml/min (>60); GFR (African American) 74 ML/MIN (>60); Glucose 307 mg/dl (74-100); Potassium 4.6 mmoL/L (3.5-5.1); Sodium 135 mmol/L (136-145); Total Protein,Serum 7.5 g/dl (6.3-8.2)
[2023-12-03 11:18] LABS: NT Pro Brain Natriuretic Pep. 22600 pg/mL (0-125)
--- NOTE | 2023-12-03 11:22 | XR_ITS ---
FINAL REPORT CLINICAL HISTORY: cough, pt states pna right side FINDINGS: CHEST, 2 views FINDINGS: There are mild increased markings at the right lung base compatible with right lower lobe pneumonia. The left lung is clear There is no evidence of effusion or other pleural disease. Patient is status post median sternotomy for CABG. A pacemaker overlies the left chest. The cardiac silhouette is unremarkable. IMPRESSION: Mild right basilar pneumonia without pleural effusion. Authenticated and ERN
== END 2023-12-03 23:59 | disposition home or self-care (01) ==
PROVIDERS: PCP Physician Assistant; Visit Provider Physician Assistant
DX: R60.0 Localized edema (principal); I50.32 Chronic diastolic (congestive) heart failure; E11.65 Type 2 diabetes mellitus with hyperglycemia; R06.09 Other forms of dyspnea; I50.20 Unspecified systolic (congestive) heart failure
CPT/HCPCS: 36415; 71046; 80048; 80076; 83880

== ENCOUNTER 2023-12-30 08:17 | Emergency (ER) | payer MEDICARE, SELFPAY ==
[2023-12-30 08:18] VITALS: BP 163/101; PULSE 83; RESP 16; TEMP 36.7; O2SAT 98; BMI 27.8
--- NOTE | 2023-12-30 08:24 | ECG_ITS ---
APPROVED REPORT Exam: Resting ECG HR:81 bpm ECG Measurements Heart Rate 81 AXES AK 145 P 2 QRSd 107 QRS -54 QT 378 T 87 QTc 415 Conclusion SINUS RHYTHM LEFT ANTERIOR FASCICULAR BLOCK [QRS AXIS <= -45, QR IN I, RS IN II] LEFT VENTRICULAR HYPERTROPHY AND ST-T CHANGE [VOLTAGE CRITERIA PLUS ST/T ABNORMALITY] No stemi Electronically signed by : AYLIN CHEEMA, 12/31/2023 07:01:41
[2023-12-30 08:30] VITALS: BP 154/88; PULSE 81; O2SAT 99
--- NOTE | 2023-12-30 08:38 | XR_ITS ---
FINAL REPORT CLINICAL HISTORY: chest pain/ left shoulder pain COMPARISON: 09/24/2023 FINDINGS: SINGLE-VIEW CHEST There is cardiomegaly. Patient is status post median sternotomy. Left subclavian ICD is present. There is persistent mild pulmonary vascular congestion. There is no pneumothorax. Chronic left rib fractures are identified. IMPRESSION: Cardiomegaly with pulmonary vascular congestion. Reviewed, Interpreted and Dictated by Kirt Escobar III, MD Transcribed by Kendy Hall Authenticated and . [facility]
--- NOTE | 2023-12-30 08:38 | HMH.EDGENADL ---
Discharge Plan Disposition Patient Disposition: Home, Self-Care Condition: Good Prescriptions Prescriptions: New lidocaine 5 % adhesive patch,medicated 1 patch topical DAILY Qty: 15 0RF Rx Instructions: Remove patch after 12 hours and leave off for 12 hours before using a new one No Action omeprazole 40 mg capsule,delayed release(DR/EC) See Rx Instructions .ROUTE .COMPLEX Qty: 180 0RF Dose Instruction: TAKE 1 CAPSULE BY MOUTH TWICE A DAY SWALLOW WHOLE; DO NOT CRUSH, CHEW, DISSOLVE, CUT, BREAK Rx Instructions: TAKE 1 CAPSULE BY MOUTH TWICE A DAY SWALLOW WHOLE; DO NOT CRUSH, CHEW, DISSOLVE, CUT, BREAK clopidogrel 75 mg tablet 75 mg PO DAILY Qty: 90 0RF duloxetine 60 mg capsule,delayed release(DR/EC) 60 mg PO DAILY Qty: 90 0RF glimepiride 4 mg tablet 4 mg PO DAILY Qty: 90 0RF Januvia 100 mg tablet 100 mg PO DAILY Qty: 90 0RF varenicline [Chantix Continuing Month Box] 1 mg tablet 1 mg PO BID Qty: 56 4RF varenicline [Chantix Starting Month Box] 0.5 mg (11)- 1 mg (42) tablets,dose pack See Rx Instructions PO PER PKG DIR 28 Days Qty: 53 0RF Rx Instructions: PO PER PKG DIR spironolactone 50 mg tablet 50 mg PO DAILY Patient Comments: TAKE ONE TABLET BY MOUTH EVERY DAY bumetanide 2 mg tablet 2 mg PO BID Clenpiq 10 mg-3.5 gram- 12 gram/160 mL solution 160 ml PO DAILY Qty: 320 0RF Rx Instructions: take first dose at 5-9PM evening before colonoscopy; 2nd dose the next day approximately 5 hrs before colonoscopy atorvastatin 40 mg tablet See Rx Instructions .ROUTE .COMPLEX Qty: 90 3RF Dose Instruction: TAKE 1 TABLET BY MOUTH ONCE DAILY Rx Instructions: TAKE 1 TABLET BY MOUTH ONCE DAILY Entresto 97-103 mg tablet 1 tab PO BID Qty: 60 2RF carvedilol 12.5 mg tablet 12.5 mg PO BID Qty: 180 1RF (DME) OneTouch Ultra Test Strip See Rx Instructions .Route Qty: 50 2RF Rx Instructions: daily testing azithromycin [Zithromax Z-Mohan] 250 mg tablet See Rx Instructions PO .COMPLEX Qty: 6 0RF Rx Instructions: For 250 mg dose pack: take 500 mg today (day 1), then 250 mg for 4 days (days 2-5) PO doxycycline hyclate 100 mg tablet 100 mg PO BID Qty: 20 0RF metformin 500 mg tablet extended release 24 hr See Rx Instructions .ROUTE .COMPLEX Qty: 360 3RF Dose Instruction: TAKE 2 TABLETS BY MOUTH TWICE DAILY Rx Instructions: TAKE 2 TABLETS BY MOUTH TWICE DAILY gabapentin 600 mg tablet 600 mg PO QID oxycodone-acetaminophen 10-325 mg tablet 1 tab PO QIDP PRN (Reason: Moderate Pain (Scale Score 5-6)) Referrals Follow up/Referrals: Anita Dumas PA [Primary Care Provider] - See instructions Activity Restrictions/Add. Instructions Additional Instructions/Restrictions: You were evaluated in the ER and are appropriate for discharge at this time. Continue taking your home medications as prescribed. Take Tylenol, ibuprofen if needed for pain, do not exceed the recommended doses on the bottle. Use the prescribed lidocaine patches on the area of most discomfort if needed. Follow the instructions. Follow-up with your pain management team and with your primary care physician. Return to the ER with new, worsening, or otherwise concerning symptoms. Clinical Impressions Clinical Impression: Left shoulder pain, Chest pain Print Language Print Language: Nepali Discharge ED Provider: Liz Brown General Adult HPI General Chief complaint: Extremity Problem,Nontraumatic Stated complaint: L shoulder pain Time Seen by Provider: 12/30/23 08:32 Mode of Arrival: Ambulatory Source of Information: Patient Limitations: No Limitations Description of Symptoms (Recalled from ER Triage Doc. by RN): Patient states he is having left shoulder pain that started last night. States he did not injure it that he is aware of. Also states that he ran out of his pain medication last night and can't get a refill until Thursday. History of Present Illness HPI narrative: 63-year-old male well-known to this emergency department presents with left shoulder pain that started last night. He states he also had twinges of chest pain intermittently starting last night. He has no known injuries. He states he can fully move the left shoulder but it is uncomfortable to do so. Patient states he ran out of his pain medication last night and cannot get a refill until the weekend. Patient reports taking Tylenol and ibuprofen without improvement. He denies shortness of breath, nausea, vomiting, abdominal pain, dizziness, fevers, or other associated symptoms. Related Data Home Medications ?Medication ?Instructions ?Recorded ?Confirmed gabapentin 600 mg tablet 600 mg PO QID 09/03/23 12/03/23 oxycodone-acetaminophen 10 mg-325 1 tab PO QIDP PRN Moderate Pain 09/03/23 12/03/23 mg tablet (Scale Score 5-6) bumetanide 2 mg tablet 2 mg PO BID 11/11/23 12/03/23 spironolactone 50 mg tablet 50 mg PO DAILY 11/11/23 12/03/23 Previous Rx's ?Medication ?Instructions ?Recorded sod picosulf 10 mg-magnes 3.5 160 ml PO DAILY bowel prep 2 doses 10/09/23 gram-citric 12 gram/160 mL oral #320 mL solution (Clenpiq) atorvastatin 40 mg tablet See Rx Instructions .Route 10/15/23 .COMPLEX #90 ea sacubitril 97 mg-valsartan 103 mg 1 tab PO BID #60 tabs 10/27/23 tablet (Entresto) carvedilol 12.5 mg tablet 12.5 mg PO BID #180 tabs 11/03/23 clopidogrel 75 mg tablet 75 mg PO DAILY #90 tabs 11/03/23 duloxetine 60 mg capsule,delayed 60 mg PO DAILY #90 caps 11/03/23 release glimepiride 4 mg tablet 4 mg PO DAILY #90 tabs 11/03/23 omeprazole 40 mg capsule,delayed See Rx Instructions .Route 11/03/23 release .COMPLEX #180 caps sitagliptin phosphate 100 mg 100 mg PO DAILY #90 tabs 11/03/23 tablet (Januvia) varenicline 0.5 mg (11)-1 mg (42) See Rx Instructions PO PER PKG DIR 11/03/23 tablets in a dose pack (Chantix 28 days #53 tabs Starting Month Box) varenicline 1 mg tablet (Chantix 1 mg PO BID #56 tabs 11/03/23 Continuing Month Box) blood sugar diagnostic (OneTouch #50 ea 11/10/23 Ultra Test strips) azithromycin 250 mg tablet See Rx Instructions PO .COMPLEX #6 12/04/23 (Zithromax Z-Mohan) tabs doxycycline hyclate 100 mg tablet 100 mg PO BID #20 tabs 12/04/23 metformin 500 mg tablet,extended See Rx Instructions .Route 12/25/23 release 24 hr .COMPLEX #360 tabs lidocaine 5 % topical patch 1 patch topical DAILY #15 ea 12/30/23 Allergies Allergy/AdvReac Type Severity Reaction Status Date / Time dobutamine AdvReac Unknown Hypertensio Verified 12/03/23 11:[address] [facility] Disclaimer: The information contained in this section may have been updated after the patient was seen, as this information can be updated by other users. Medical History Cardiogenic shock Pneumonia On mechanically assisted ventilation Acute respiratory failure with hypoxia Abdominal pain Constipation Deviated nasal septum Hypertrophy of inferior nasal turbinate Sinusitis Mixed restrictive and obstructive lung disease Cardiac pacemaker in situ Pulmonary emphysema Smoking greater than 30 pack years Dyspnea on exertion Lung mass Nodule of right lung Bilateral chronic serous otitis media Right maxillary sinusitis HFrEF (heart failure with reduced ejection fraction) Impacted cerumen of right ear Dizziness Abnormal electrocardiogram [ECG] [EKG] ANNA (obstructive sleep apnea) Hyperlipidemia Depression Anxiety Gastroesophageal reflux disease Insomnia Coronary artery disease History of TIA (transient ischemic attack) Hypertension Diabetes mellitus Epididymitis Palpitations Opiate withdrawal TIA (transient ischemic attack) Surgical History History of removal of testicle History of hernia surgery History of cholecystectomy History of right mastoidectomy History of coronary artery bypass graft Family History Other Diabetes Social History Smoking Status: Current every day smoker tobacco type: cigarettes packs per day: 1 alcohol intake: never substance use type: denies use current occupational status: disabled Travel in the last 8 weeks: None household members: spouse and children housing: house ROS Obtained: Yes All systems reviewed & no additional complaints except as documented Positive ROS as per HPI Physical Exam General General appearance: alert and in no apparent distress Head Head exam: atraumatic and normocephalic Eye Eye exam: Present PERRL and EOMI ENT ENT exam: Present mucous membranes moist Neck Neck exam: Present normal inspection and full ROM Chest Chest inspection: Present symmetric chest wall rise; Absent tenderness Respiratory Respiratory exam: Present normal lung sounds bilaterally; Absent respiratory distress, wheezes or stridor Cardiovascular Cardiovascular exam: Present regular rate and normal rhythm Abdominal Exam Abdominal exam: Present soft; Absent distention or tenderness Extremities Exam Extremities exam: Present full ROM and tenderness (Tenderness to palpation over the lateral aspect of the left shoulder diffusely, no localized tenderness, no deformity, swelling, or other sign of traumatic injury, neurovascularly intact) Neurological Exam Neurological exam: Present alert and oriented X3; Absent motor sensory deficit Psychiatric Psychiatric exam: Present normal affect and normal mood Skin Skin exam: Present warm and dry Medical Decision Making Medical Records Medical records reviewed: Yes I reviewed the patient's medical records. George Inquiry Pt receiving controlled substance: No George was queried for this patient: Yes Reference #:: [id number] Vital Signs: 12/30/23 08:18 12/30/23 08:30 Temperature 98.0 F Temperature Source Oral Pulse Rate 81 Pulse Rate [Radial] 83 Respiratory Rate 16 Blood Pressure 154/88 H Blood Pressure [Right Arm] 163/101 H Blood Pressure Mean 110 Blood Pressure Mean [Right Arm] 121 Blood Pressure Source [Right Arm] Automatic Cuff Blood Pressure Position [Right Arm] Sitting 02 Sat by Pulse Oximetry 98 99 Oxygen Delivery Method Room Air Lab Data Lab Results 12/30/23 08:40: WBC 5.3, RBC 4.88, Hgb 12.8 L, Hct 41.6 L, MCV 85.2, MCH 26.1 L, MCHC 30.7 L, RDW 20.1 H, Plt Count 134 L, MPV 10.6 H, Neut % (Auto) 65.3, Lymph % (Auto) 23.1, Donley % (Auto) 6.3, Eos % (Auto) 4.4, Baso % (Auto) 0.9, Neut # (Auto) 3.5, Lymph # (Auto) 1.2, Donley # (Auto) 0.3, Eos # (Auto) 0.2, Baso # (Auto) 0.1, Sodium 137, Potassium 5.0, Chloride 110 H, Carbon Dioxide 22, Anion Gap 10.0, BUN 29 H, Creatinine 1.00, Estimated Creat Clear 98, Estimated GFR 76, Est GFR ( Amer) 92, Glucose 207 H, Calcium 8.7, Troponin I 0.01 12/30/23 08:40 12/30/23 08:40 Orders (Tests/Meds): ED MEDICATIONS Discontinued Medications Generic Name Dose Route Start Last Admin Trade Name Freq PRN Reason Stop Dose Admin Ketorolac Tromethamine 15 mg 12/30/23 08:37 12/30/23 08:44 Ketorolac 30mg/Ml Vial IM 12/30/23 08:38 15 mg ONCE ONE Administration Lidocaine 1 each 12/30/23 08:37 12/30/23 08:45 Lidocaine 5% Transdermal Patch TP 12/30/23 08:38 1 each ONCE ONE Administration Methocarbamol 500 mg 12/30/23 08:37 12/30/23 08:44 Methocarbamol 500mg Tablet PO 12/30/23 08:38 500 mg ONCE ONE Administration ORDERS Category Date Time Status CXR --portable [XR chest portable] Stat Exams 12/30/23 08:38 Taken BMP [Basic Metabolic Panel] Stat Lab 12/30/23 08:40 Completed CBC w/Auto Diff [Complete Blood Count Auto Diff] Stat Lab 12/30/23 08:40 Completed Trop I [Troponin I] Stat Lab 12/30/23 08:40 Completed Troponin I Q3H Lab 12/30/23 11:45 Ordered Troponin I Q3H Lab 12/30/23 14:45 Ordered Medical Decision Narrative: In summary, this 63-year-old male presents to the emergency department today with left shoulder pain. On initial evaluation patient is hemodynamically stable, afebrile, tenderness to palpation over the lateral aspect of the left shoulder, range of motion of the left arm at the shoulder is full, strength of the left upper extremity is full, no neurovascular abnormalities, no findings of trauma, cardiopulmonary exam reassuring, no tenderness to palpation of the chest. Differential diagnosis includes but is not limited to ACS though I do have low suspicion for this, more likely patient is having musculoskeletal pain, muscle spasm, degenerative changes, and most likely medication noncompliance given patient reports he is already out of his oxycodone. Based on these concerns, I ordered cardiac workup, chest x-ray. I have extremely low suspicion for traumatic injury on physical exam so I do not believe dedicated films of the left shoulder are necessary. Patient became irritated when I did not offer him narcotics. He stated G*D* it! I need something now! . Review of patient's George demonstrates he received his gabapentin and oxycodone from Dr. Rick Jacobo in [place]. This is a pain clinic. I called the clinic and discussed this patient with clinical nurse, Amie, and let her know that the patient was in the ER seeking pain medications reporting he was out of his oxycodone. I told her I would not be providing the patient with narcotics after reviewing his George but wanted the prescribing clinic to be aware of his presentation to our ER. She was grateful for the update and was going to let the physician know. ECG personally interpreted demonstrates normal sinus rhythm, rate 81, patient does have changes indicating development of LVH, no STEMI, normal [place] and QTc. ECG similar to previous which I have reviewed. Patient received Toradol, methocarbamol, lidocaine patch for treatment. Labs personally reviewed demonstrate no leukocytosis, mild anemia improved from prior, mild thrombocytopenia, similar to prior, CMP with prerenal azotemia, patient was encouraged to drink fluids and is tolerating oral intake in the ER. Initial troponin 0.01, reassuring given the duration of patient's symptoms and his heart score. I do not believe serial troponins are necessary at this time. XR personally interpreted demonstrates AICD in place, no acute intrathoracic abnormalities, chest x-ray stable from prior. See radiology read for final interpretation. On reassessment patient states his pain is improved. I have prescribed lidocaine patches for outpatient management. He is appropriate for discharge at this time. Patient was given instructions on symptomatic management, follow up instructions, and return precautions for the emergency department. Patient indicated understanding and was discharged in stable condition. Critical Care Critical Care Time Critical Care Time: No
[2023-12-30] MEDS: METHOCARBAMOL 500MG TABLET 500 MG PO (08:44)
[2023-12-30] MEDS: KETOROLAC 30MG/ML VIAL 15 MG IM (08:44)
[2023-12-30] MEDS: LIDOCAINE 5% TRANSDERMAL PATCH 1 EACH TP (08:45)
[2023-12-30 08:53] LABS: Basophils # 0.1 K/mm3 (0-0.2); Basophils % 0.9 % (0.1-2.0); Eosinophils # 0.2 K/mm3 (0.0-0.4); Eosinophils % 4.4 % (0.1-12.0); Hematocrit 41.6 % (42.0-52.0); Hemoglobin 12.8 g/dL (14.1-18.0); Lymphocytes # 1.2 K/mm3 (0.7-4.5); Lymphocytes % 23.1 % (10-50); Mean Corpuscular HGB Conc 30.7 g/dL (31.8-35.4); Mean Corpuscular Hemoglobin 26.1 pg (27.0-31.2); Mean Corpuscular Volume 85.2 fl (80-94); Mean Platelet Volume 10.6 fl (7.4-10.4); Monocytes # 0.3 K/mm3 (0.1-1.0); Monocytes % 6.3 % (1.7-9.3); Neutrophils # 3.5 K/mm3 (1.8-7.8); Neutrophils % 65.3 % (37.0-80.0); Platelet Count 134 K/mm3 (142-424); Red Blood Count 4.88 M/mm3 (4.60-6.20); Red Cell Distribution Width 20.1 % (11.5-17.5); White Blood Count 5.3 K/mm3 (4.8-10.8)
--- NOTE | 2023-12-30 08:55 | PC.NURSE ---
XR AT BEDSIDE
[2023-12-30 08:59] LABS: Chloride 110 mmol/L (98-107); Sodium 137 mmol/L (136-145)
[2023-12-30 09:02] LABS: Blood Urea Nitrogen 29 mg/dl (9-20); Calcium 8.7 mg/dl (8.4-10.2); Carbon Dioxide 22 mmol/L (22.0-30.0); Creatinine Clearance Estimated 98 mL/min (50-200); Estimated Glomerular Filt Rate 76 ml/min (>60); GFR (African American) 92 ML/MIN (>60); Glucose 207 mg/dl (74-100)
[2023-12-30 09:24] LABS: Troponin I 0.01 ng/ml (0.00-0.034)
[2023-12-30 09:31] VITALS: BP 150/88; PULSE 80; RESP 20; TEMP 36.7; O2SAT 97
== END 2023-12-30 09:33 | disposition home or self-care (01) ==
PROVIDERS: Emergency Provider Emergency Medicine; PCP Physician Assistant
DX: M25.512 Pain in left shoulder (principal); R07.9 Chest pain, unspecified; F17.210 Nicotine dependence, cigarettes, uncomplicated; K21.9 Gastro-esophageal reflux disease without esophagitis; I11.9 Hypertensive heart disease without heart failure; I25.10 Atherosclerotic heart disease of native coronary artery without angina pectoris; E78.5 Hyperlipidemia, unspecified; Z95.1 Presence of aortocoronary bypass graft; Z95.0 Presence of cardiac pacemaker
CPT/HCPCS: 71045; 80048; 84484; 85025; 93005; 96372; 99284; J1885

== ENCOUNTER 2024-01-13 11:35 | Outpatient (CLI) | payer MEDICARE, SELFPAY ==
[2024-01-13 17:55] LABS: Basophils % 0.4 % (0.1-2.0); Eosinophils # 0.1 K/mm3 (0.0-0.4); Eosinophils % 0.7 % (0.1-12.0); Hematocrit 46.5 % (42.0-52.0); Lymphocytes # 1.1 K/mm3 (0.7-4.5); Lymphocytes % 12.4 % (10-50); Mean Corpuscular HGB Conc 30.2 g/dL (31.8-35.4); Mean Corpuscular Hemoglobin 26.7 pg (27.0-31.2); Mean Corpuscular Volume 88.6 fl (80-94); Mean Platelet Volume 11.1 fl (7.4-10.4); Monocytes # 0.4 K/mm3 (0.1-1.0); Monocytes % 4.6 % (1.7-9.3); Neutrophils # 7.6 K/mm3 (1.8-7.8); Neutrophils % 81.9 % (37.0-80.0); Platelet Count 199 K/mm3 (142-424); Red Blood Count 5.25 M/mm3 (4.60-6.20); Red Cell Distribution Width 20.3 % (11.5-17.5); White Blood Count 9.2 K/mm3 (4.8-10.8)
[2024-01-13 18:07] LABS: Creatinine,Urine Random 50 mg/dL (Not Estab.)
[2024-01-13 18:24] LABS: Hemoglobin A1C 11.4 % (4.0-6.0)
[2024-01-13 19:59] LABS: Ferritin 167 ng/ml (17.9-464)
[2024-01-13 20:25] LABS: Anion Gap 15.7 mEq/L (5-15); Blood Urea Nitrogen 36 mg/dl (9-20); Calcium 9.4 mg/dl (8.4-10.2); Carbon Dioxide 30 mmol/L (22.0-30.0); Chloride 94 mmol/L (98-107); Estimated Glomerular Filt Rate 56 ml/min (>60); GFR (African American) 68 ML/MIN (>60); Glucose 290 mg/dl (74-100); Potassium 4.7 mmoL/L (3.5-5.1); Sodium 135 mmol/L (136-145)
[2024-01-13 20:26] LABS: Alanine Aminotransferase 15 U/L (12-78); Albumin Level 3.9 g/dl (3.5-5.0); Alkaline Phosphatase 148 U/L (38-126); Aspartate Amino Transferase 19 U/L (17-59); Bilirubin,Total 0.8 mg/dl (0.2-1.3); Globulin 3.8 g/dL (1.3-3.2); Total Protein,Serum 7.7 g/dl (6.3-8.2)
[2024-01-13 20:40] LABS: 25-OH Vitamin D, Total 55.3 ng/mL (30-100)
[2024-01-13 20:41] LABS: Iron 64 ug/dL (49-181)
[2024-01-13 20:50] LABS: Total Iron Binding Capacity 314 ug/dL (261-462)
[2024-01-13 20:57] LABS: Prostate Specific Ag Screen 0.1 ng/ml (0.0-4.0)
[2024-01-13 21:47] LABS: Folate 9.25 ng/mL; Vitamin B12 > 1000 pg/mL (239-931)
== END 2024-01-13 23:59 | disposition home or self-care (01) ==
LOC: LAB.DROPOF 01-14 11:36
PROVIDERS: PCP Internal Medicine; Visit Provider Internal Medicine
DX: E11.9 Type 2 diabetes mellitus without complications (principal); R53.83 Other fatigue; Z12.5 Encounter for screening for malignant neoplasm of prostate; J40 Bronchitis, not specified as acute or chronic; I50.1 Left ventricular failure, unspecified; E55.9 Vitamin D deficiency, unspecified; J44.89 Other specified chronic obstructive pulmonary disease; R63.4 Abnormal weight loss; Z68.22 Body mass index [BMI] 22.0-22.9, adult; Z79.84 Long term (current) use of oral hypoglycemic drugs; F17.210 Nicotine dependence, cigarettes, uncomplicated; I11.9 Hypertensive heart disease without heart failure
CPT/HCPCS: 80053; 82043; 82306; 82570; 82607; 82728; 82746; 83036; 83540; 83550; 84443; 85025; G0103

== ENCOUNTER 2024-02-17 09:45 | Observation (INO) | payer MEDICARE, SELFPAY ==
[2024-02-17] VITALS (14 sets, daily range): BP systolic 114–161; BP diastolic 67–91; PULSE 63–83; RESP 15–19; TEMP 36.6–36.7; O2SAT 97–100; BMI 27.6; BMI 29.9
--- NOTE | 2024-02-17 09:46 | ECG_ITS ---
APPROVED REPORT Exam: Resting ECG HR:78 bpm ECG Measurements Heart Rate 78 AXES ND 171 P 81 QRSd 114 QRS -61 QT 384 T 87 QTc 417 Conclusion SINUS RHYTHM WITH OCCASIONAL VENTRICULAR PREMATURE COMPLEXES PATTERN CONSISTENT WITH PULMONARY DISEASE LEFT ANTERIOR FASCICULAR BLOCK [QRS AXIS <= -45, QR IN I, RS IN II] NONSPECIFIC ST & T-WAVE ABNORMALITY ABNORMAL ECG Electronically signed by : DANIEL MORRELL, 02/17/2024 14:39:13
--- NOTE | 2024-02-17 10:12 | HMH.EDCP ---
Discharge Plan Disposition Patient Disposition: Admitted Chief Complaint: Chest Pain Prescriptions Prescriptions: No Action omeprazole 40 mg capsule,delayed release(DR/EC) See Rx Instructions .ROUTE .COMPLEX Qty: 180 0RF Dose Instruction: TAKE 1 CAPSULE BY MOUTH TWICE A DAY SWALLOW WHOLE; DO NOT CRUSH, CHEW, DISSOLVE, CUT, BREAK Rx Instructions: TAKE 1 CAPSULE BY MOUTH TWICE A DAY SWALLOW WHOLE; DO NOT CRUSH, CHEW, DISSOLVE, CUT, BREAK clopidogrel 75 mg tablet 75 mg PO DAILY Qty: 90 0RF duloxetine 60 mg capsule,delayed release(DR/EC) 60 mg PO DAILY Qty: 90 0RF glimepiride 4 mg tablet 4 mg PO DAILY Qty: 90 0RF varenicline [Chantix Continuing Month Box] 1 mg tablet 1 mg PO BID Qty: 56 4RF varenicline [Chantix Starting Month Box] 0.5 mg (11)- 1 mg (42) tablets,dose pack See Rx Instructions PO PER PKG DIR 28 Days Qty: 53 0RF Rx Instructions: PO PER PKG DIR metformin 1,000 mg tablet 1,000 mg PO BID Qty: 60 2RF empagliflozin 25 mg tablet 25 mg PO DAILY Qty: 30 2RF amoxicillin-pot clavulanate [Augmentin] 500-125 mg tablet 1 tab PO BID 14 Days Qty: 28 0RF spironolactone 50 mg tablet 50 mg PO DAILY Patient Comments: TAKE ONE TABLET BY MOUTH EVERY DAY Jardiance 10 mg tablet 10 mg PO DAILY Qty: 90 3RF atorvastatin 40 mg tablet See Rx Instructions .ROUTE .COMPLEX Qty: 90 3RF Dose Instruction: TAKE 1 TABLET BY MOUTH ONCE DAILY Rx Instructions: TAKE 1 TABLET BY MOUTH ONCE DAILY (DME) OneTouch Ultra Test Strip See Rx Instructions .Route Qty: 50 2RF Rx Instructions: daily testing bumetanide 2 mg tablet 2 mg PO BID Qty: 60 5RF carvedilol 12.5 mg tablet 12.5 mg PO BID Qty: 180 3RF Entresto 97-103 mg tablet See Rx Instructions .ROUTE .COMPLEX Qty: 180 3RF Dose Instruction: TAKE ONE TABLET BY MOUTH TWICE DAILY Rx Instructions: TAKE ONE TABLET BY MOUTH TWICE DAILY lidocaine 5 % adhesive patch,medicated 1 patch topical DAILY Qty: 15 0RF Rx Instructions: Remove patch after 12 hours and leave off for 12 hours before using a new one gabapentin 600 mg tablet 600 mg PO QID Referrals Follow up/Referrals: Bebeto Armenta, [Primary Care Provider] - See instructions Clinical Impressions Clinical Impression: Hyperglycemia, Angina pectoris, unstable Print Language Print Language: Italian Discharge ED Provider: Roque Briceño General Chief Complaint: Chest Pain Stated Complaint: cp Time Seen by Provider: 02/17/24 09:50 Mode of Arrival: Ambulatory Source of Information: Patient Limitations: No Limitations Description of Symptoms (Recalled from ER Triage Doc. by RN): PT PRESENTS TO THE ER FOR SUBSTERNAL CHEST PAIN THAT STARTED AROUND 8PM LAST NIGHT WHILE HE WAS LIFTING A HEAVY OBJECT, RATES PAIN CONSTANT AND 10/10, PT HAS AN EXTENSIVE CARDIAC HX WITH HX OF OPEN HEART SURGERY, DEFIBRILLATOR IN PLACE, STATED HE CODED HERE IN SEPTEMBER History of Present Illness HPI narrative: Patient is a 64-year-old male with past medical history of mixed obstructive lung disease, cardiac pacemaker placement, previous CABG, coronary artery disease who presents emergency department for evaluation of chest pain. Onset was acute, occurring since 8 PM last night since he was lifting an object. It has been persistent, moderate to severe in intensity, substernal and left sternal border. No cough, no other acute complaints at this time. Related Data Home Medications ?Medication ?Instructions ?Recorded ?Confirmed gabapentin 600 mg tablet 600 mg PO QID 09/03/23 01/13/24 spironolactone 50 mg tablet 50 mg PO DAILY 11/11/23 01/13/24 Previous Rx's ?Medication ?Instructions ?Recorded atorvastatin 40 mg tablet See Rx Instructions .Route 10/15/23 .COMPLEX #90 ea clopidogrel 75 mg tablet 75 mg PO DAILY #90 tabs 11/03/23 duloxetine 60 mg capsule,delayed 60 mg PO DAILY #90 caps 11/03/23 release glimepiride 4 mg tablet 4 mg PO DAILY #90 tabs 11/03/23 omeprazole 40 mg capsule,delayed See Rx Instructions .Route 11/03/23 release .COMPLEX #180 caps varenicline 0.5 mg (11)-1 mg (42) See Rx Instructions PO PER PKG DIR 11/03/23 tablets in a dose pack (Chantix 28 days #53 tabs Starting Month Box) varenicline 1 mg tablet (Chantix 1 mg PO BID #56 tabs 11/03/23 Continuing Month Box) blood sugar diagnostic (OneTouch #50 ea 11/10/23 Ultra Test strips) lidocaine 5 % topical patch 1 patch topical DAILY #15 ea 12/30/23 empagliflozin 10 mg tablet 10 mg PO DAILY #90 tabs 01/04/24 (Jardiance) amoxicillin 500 mg-potassium 1 tab PO BID 14 days #28 tabs 01/13/24 clavulanate 125 mg tablet (Augmentin) empagliflozin 25 mg tablet 25 mg PO DAILY #30 tabs 01/13/24 metformin 1,000 mg tablet 1,000 mg PO BID #60 tabs 01/13/24 bumetanide 2 mg tablet 2 mg PO BID #60 tabs 01/15/24 carvedilol 12.5 mg tablet 12.5 mg PO BID #180 tabs 01/15/24 sacubitril 97 mg-valsartan 103 mg See Rx Instructions .Route 02/17/24 tablet (Entresto) .COMPLEX #180 tabs Allergies Allergy/AdvReac Type Severity Reaction Status Date / Time dobutamine AdvReac Unknown Hypertensio Verified 01/13/24 11:04 n [facility] Disclaimer: The information contained in this section may have been updated after the patient was seen, as this information can be updated by other users. Medical History (Updated 02/17/24 @ 13:59 by Roque Briceño MD) Pneumonia Cardiogenic shock On mechanically assisted ventilation Acute respiratory failure with hypoxia Abdominal pain Constipation Deviated nasal septum Hypertrophy of inferior nasal turbinate Sinusitis Mixed restrictive and obstructive lung disease Cardiac pacemaker in situ Pulmonary emphysema Smoking greater than 30 pack years Dyspnea on exertion Lung mass Nodule of right lung Bilateral chronic serous otitis media Right maxillary sinusitis HFrEF (heart failure with reduced ejection fraction) Impacted cerumen of right ear Dizziness Abnormal electrocardiogram [ECG] [EKG] ANNA (obstructive sleep apnea) Hyperlipidemia Depression Anxiety Gastroesophageal reflux disease Insomnia Coronary artery disease History of TIA (transient ischemic attack) Hypertension Diabetes mellitus Epididymitis Palpitations Opiate withdrawal TIA (transient ischemic attack) Surgical History History of removal of testicle History of hernia surgery History of cholecystectomy History of right mastoidectomy History of coronary artery bypass graft Family History Other Diabetes Social History Smoking Status: Current every day smoker tobacco type: cigarettes packs per day: 1 alcohol intake: never substance use type: denies use current occupational status: disabled Travel in the last 8 weeks: None household members: spouse and children housing: house Other Medical History Have you received the Flu Vaccine for this season: No Have you received the Pneumonia Vaccine: No ROS Obtained: Yes Systems reviewed as appropriate & no additional complaints except as documented Physical Exam General General appearance: alert and in no apparent distress Head Head exam: atraumatic and normocephalic Eye Eye exam: Present PERRL ENT ENT exam: Present mucous membranes moist Neck Neck exam: Present normal inspection Chest Chest inspection: Present normal inspection and symmetric chest wall rise Respiratory Respiratory exam: Present normal lung sounds bilaterally; Absent respiratory distress Cardiovascular Cardiovascular exam: Present regular rate and normal rhythm Abdominal Exam Abdominal exam: Present soft; Absent tenderness Extremities Exam Extremities exam: Present normal inspection Neurological Exam Neurological exam: Present alert Psychiatric Psychiatric exam: Present normal affect Skin Skin exam: Present warm and dry HEART Score HEART Score HEART Score assessment performed?: Yes History (anamnesis): Highly suspicious ECG: Non-specific disturbance Age: 45-65 years Risk factors: Atherosclerosis history Troponin: </= normal limit HEART Score: 6 Critical Care Critical Care Time Critical Care Time: No Medical Decision Making George Inquiry Pt receiving controlled substance: No Vital Signs Vital Signs: 02/17/24 09:46 02/17/24 09:47 02/17/24 10:00 Temperature 98.0 F Temperature Source Oral Pulse Rate 79 83 Pulse Rate [Left Radial] 78 Respiratory Rate 18 18 19 Blood Pressure 161/91 H 135/78 Blood Pressure [Right Arm] 161/91 H Blood Pressure Mean Blood Pressure Mean [Right Arm] 114 Blood Pressure Source [Right Arm] Automatic Cuff Blood Pressure Position [Right Arm] Sitting 02 Sat by Pulse Oximetry 98 99 98 Oxygen Delivery Method Room Air 02/17/24 10:30 02/17/24 11:00 02/17/24 11:30 Temperature Temperature Source Pulse Rate 80 78 81 Pulse Rate [Left Radial] Respiratory Rate 18 16 Blood Pressure 131/69 133/79 128/74 Blood Pressure [Right Arm] Blood Pressure Mean 95 96 Blood Pressure Mean [Right Arm] Blood Pressure Source [Right Arm] Blood Pressure Position [Right Arm] 02 Sat by Pulse Oximetry 99 99 100 Oxygen Delivery Method Room Air 02/17/24 12:00 02/17/24 12:30 02/17/24 13:01 Temperature Temperature Source Pulse Rate 75 72 68 Pulse Rate [Left Radial] Respiratory Rate 15 16 18 Blood Pressure 137/76 140/76 132/74 Blood Pressure [Right Arm] Blood Pressure Mean 85 84 Blood Pressure Mean [Right Arm] Blood Pressure Source [Right Arm] Blood Pressure Position [Right Arm] 02 Sat by Pulse Oximetry 97 100 99 Oxygen Delivery Method Lab Data Labs: Lab Results 02/17/24 09:56: WBC 6.2, RBC 4.14 L, Hgb 12.3 L, Hct 40.4 L, MCV 97.6 H, MCH 29.7, MCHC 30.5 L, RDW 22.3 H, Plt Count 114 L, MPV 10.7 H, Neut % (Auto) 71.8, Lymph % (Auto) 16.7, Quay % (Auto) 8.6, Eos % (Auto) 2.3, Baso % (Auto) 0.6, Neut # (Auto) 4.4, Lymph # (Auto) 1.0, Quay # (Auto) 0.5, Eos # (Auto) 0.1, Baso # (Auto) 0.0, Sodium 135 L, Potassium 3.9, Chloride 101, Carbon Dioxide 28, Anion Gap 9.9, BUN 35 H, Creatinine 1.10, Estimated Creat Clear 87, Estimated GFR 68, Est GFR ( Amer) 82, Glucose 362 H, Calcium 8.9, Total Bilirubin 0.5, AST 28, ALT 26, Alkaline Phosphatase 150 H, Troponin I 0.01, Total Protein 7.0, Albumin 3.9, Globulin 3.1, Albumin/Globulin Ratio 1.3, HIV 1&2 Antibody Rapid Nonreactive 02/17/24 09:56 02/17/24 09:56 Response Orders (Tests/Meds): ED MEDICATIONS Discontinued Medications Generic Name Dose Route Start Last Admin Trade Name Freq PRN Reason Stop Dose Admin Aspirin 324 mg 02/17/24 11:40 02/17/24 11:51 Aspirin 81mg Chewable Tablet PO 02/17/24 11:41 324 mg ONCE ONE Administration Morphine Sulfate 4 mg 02/17/24 11:40 02/17/24 11:51 Morphine 4mg/Ml Syringe IV 02/17/24 11:41 4 mg ONCE ONE Administration Nitroglycerin 0.4 mg 02/17/24 11:40 02/17/24 11:51 Nitroglycerin 0.4mg Sl Tablet SL 02/17/24 11:41 0.4 mg ONCE ONE Administration Ondansetron HCl 4 mg 02/17/24 11:40 02/17/24 11:52 Ondansetron 4mg/2ml Vial IV 02/17/24 11:41 4 mg ONCE ONE Administration ORDERS Category Date Time Status Cardiology Consult [Consult to Cardiology] [CONS] Cons 02/17/24 13:12 Active Routine XR chest 2V Stat Exams 02/17/24 10:27 Completed Complete Blood Count Auto Diff Stat Lab 02/17/24 09:56 Completed Comprehensive Metabolic Panel Stat Lab 02/17/24 09:56 Completed HIV (1&2) Antibody Rapid Stat Lab 02/17/24 09:56 Completed Hep C Ab with Reflex to RNA Stat Lab 02/17/24 09:56 Completed Troponin I Q3H Lab 02/17/24 13:27 Received Troponin I Q3H Lab 02/17/24 16:15 Ordered Troponin I Stat Lab 02/17/24 09:56 Completed CA echo doppler complete Stat Y 02/17/24 13:50 Completed ECG Data Tracing #1: ECG Narrative: Independently interpreted by me rate 78, rhythm is regular, sinus rhythm with intermittent PVCs, left axis deviation, no ST elevation in anatomical contiguous leads, QTc 417 MDM Narrative Medical Decision Narrative: In summary patient is 64-year-old male past medical history described above presents emergency department for evaluation of chest pain. Patient is hemodynamically stable nontoxic-appearing arrival, afebrile. My concern for cardiac chest pain is high given that it was exertional in onset. Workup be conducted with hematologic labs, chest x-ray, EKG. Initial inventions include nitroglycerin, morphine, aspirin. Review of diagnostic catheterization report from September of this year shows patent coronary arteries, severe left ventricular dilatation and global hypokinesis with elevated LVEDP and was undergoing medical management. Initial workup reviewed by me, hematologic labs are nonactionable, no significant leukocytosis, no GITA or critical electrolyte abnormality, elevated glucose without elevated anion gap, initial troponin 0.01. Upon repeat evaluation patient had near total resolution of chest pain with nitroglycerin and morphine. The case was discussed with cardiology and they agree patient will benefit from inpatient management at this time. The case was subsequently discussed with hospital medicine regarding management who admitted the patient their service for continued evaluation.
[2024-02-17 10:16] LABS: Basophils % 0.6 % (0.1-2.0); Eosinophils # 0.1 K/mm3 (0.0-0.4); Eosinophils % 2.3 % (0.1-12.0); Hematocrit 40.4 % (42.0-52.0); Hemoglobin 12.3 g/dL (14.1-18.0); Lymphocytes % 16.7 % (10-50); Mean Corpuscular HGB Conc 30.5 g/dL (31.8-35.4); Mean Corpuscular Hemoglobin 29.7 pg (27.0-31.2); Mean Corpuscular Volume 97.6 fl (80-94); Mean Platelet Volume 10.7 fl (7.4-10.4); Monocytes # 0.5 K/mm3 (0.1-1.0); Monocytes % 8.6 % (1.7-9.3); Neutrophils # 4.4 K/mm3 (1.8-7.8); Neutrophils % 71.8 % (37.0-80.0); Platelet Count 114 K/mm3 (142-424); Red Blood Count 4.14 M/mm3 (4.60-6.20); Red Cell Distribution Width 22.3 % (11.5-17.5); White Blood Count 6.2 K/mm3 (4.8-10.8)
[2024-02-17 10:18] LABS: Alanine Aminotransferase 26 U/L (12-78); Albumin Level 3.9 g/dl (3.5-5.0); Albumin/Globulin Ratio 1.3 (1.1-1.8); Alkaline Phosphatase 150 U/L (38-126); Anion Gap 9.9 mEq/L (5-15); Aspartate Amino Transferase 28 U/L (17-59); Bilirubin,Total 0.5 mg/dl (0.2-1.3); Blood Urea Nitrogen 35 mg/dl (9-20); Calcium 8.9 mg/dl (8.4-10.2); Carbon Dioxide 28 mmol/L (22.0-30.0); Chloride 101 mmol/L (98-107); Creatinine Clearance Estimated 87 mL/min (50-200); Estimated Glomerular Filt Rate 68 ml/min (>60); GFR (African American) 82 ML/MIN (>60); Globulin 3.1 g/dL (1.3-3.2); Glucose 362 mg/dl (74-100); Potassium 3.9 mmoL/L (3.5-5.1); Sodium 135 mmol/L (136-145)
--- NOTE | 2024-02-17 10:27 | XR_ITS ---
FINAL REPORT CLINICAL HISTORY: CHEST PAIN. PACEMAKER PLACED 1 YR AGO. COMPARISON: 12/30/2023 FINDINGS: TWO-VIEW CHEST There is mild cardiomegaly. Pacer is identified. Patient is status post median sternotomy. The lungs are clear. There is no pneumothorax. IMPRESSION: No acute cardiopulmonary process. Reviewed, Interpreted and Dictated by Khnag Franco MD Transcribed by Kendy Hall Authenticated and [facility]
[2024-02-17 10:32] LABS: Troponin I 0.01 ng/ml (0.00-0.034)
--- NOTE | 2024-02-17 10:33 | PC.NURSE ---
ER AT BEDSIDE
--- NOTE | 2024-02-17 10:33 | PC.NURSE ---
Dr. Briceño at bedside
--- NOTE | 2024-02-17 10:41 | PC.NURSE ---
PT TRANSPORTED TO XR VIA WHEELCHAIR
--- NOTE | 2024-02-17 10:46 | PC.NURSE ---
Pt back in room from Rad
[2024-02-17 11:13] LABS: HIV (1&2) Antibody Rapid NONREACTIVE (NONREACTIVE)
--- NOTE | 2024-02-17 11:37 | PC.NURSE ---
ER AWARE OF NEED FOR PAIN MEDS REQUESTED BY PT
[2024-02-17] MEDS: ASPIRIN 81MG CHEWABLE TABLET 324 MG PO (11:51)
[2024-02-17] MEDS: MORPHINE 4MG/ML SYRINGE 4 MG IV (11:51)
[2024-02-17] MEDS: NITROGLYCERIN 0.4MG SL TABLET 0.4 MG SL (11:51)
[2024-02-17] MEDS: ONDANSETRON 4MG/2ML VIAL 4 MG IV (11:52)
--- NOTE | 2024-02-17 13:11 | PC.NURSE ---
on phone with jennifer
--- NOTE | 2024-02-17 13:45 | PC.NURSE ---
CINDY TOURE AT BEDSIDE
--- NOTE | 2024-02-17 13:45 | PC.NURSE ---
susanne crespo at bedside
--- NOTE | 2024-02-17 13:50 | CA_ITS ---
APPROVED REPORT EXAM: Comprehensive 2D, Doppler, and color-flow Echocardiogram Gun Fertilizer: Beth Bailon RVT Ht: 5 ft 11 in Wt: 198lbs BSA: 2.10 BP: 127/68 mmHg Indications: CHEST PRESSURE,CABG,AICD,CAD,HTN,HLD,SMOKER,EF OF 10% ON 09/24/23 2D Dimensions LA Volume 37.50 mL LA Volume Index 17.86 mL/m2 (M/F) 16-34 M-Mode Dimensions RVDd 3.85 cm (0.9-2.6) LA Diam 4.03 cm (1.9-4.0) LVDd 5.70 cm (3.5-5.7) LVDs 4.76 cm (3.5-5.7) IVSd 1.13 cm (0.6-1.1) PWd 0.60 cm (0.6-1.1) EF (Teich) 34.10% FS 16.50% EDV (Teich) 160.00 mL TAPSE 1.96 (<1.7) ESV (Teich) 105.40 mL LV Diastology E Decel Time 243 (160-240 msec) E/A Ratio 0.6 Aortic Valve CHANCE Index 3.13 cm2/m2 AoV Peak Vito. 128.0 (50-130 cm/s) AO Peak GR. 6.50 mmHg AO Mean GR. 2.80 (<5 mmHg) AO VTI 19.2 (18-25 cm) CHANCE (VTI) 6.74 (2.5-4.5 cm2) Mitral Valve MV E Max Vito. 52.0 (40-130 cm/s) MV A Velocity 94.0 (40-130 cm/s) E/A Ratio 0.55 MV PHT 71.0 ms Pulmonary Valve PV Peak Velocity 100.0 (50-150 cm/s) Tricuspid Valve TR P. Velocity 306.00 cm/s RAP Estimate 10.00 mmHg RVSP 47.50 mmHg Left Ventricle The left ventricle is normal size. Left ventricular systolic function is moderately decreased. There is increased LV wall thickness. There is moderate global hypokinesis present. There is severe hypokinesis of the distal inferior, inferoseptal, and lateral LV lares. Grade 1 diastolic dysfunction is present. LVEF is 30%. Right Ventricle Right ventricle is moderately dilated. Right ventricle is moderately hypokinetic. There is a device lead present in the right ventricle. Atria The left atrium size is normal. Right atrium is mildly dilated. There is no Doppler evidence of interatrial shunt. Aortic Valve The aortic valve is mildly thickened. There is no aortic valvular stenosis. No aortic regurgitation is present. Mitral Valve The mitral valve leaflets are mildly thickened. Trace mitral regurgitation. No evidence of mitral valve stenosis. Tricuspid Valve The tricuspid valve leaflets are thin and pliable. Mild tricuspid regurgitation. RVSP is 30-35 mmHg. Pulmonic Valve The pulmonary valve is normal in structure. Trace pulmonic regurgitation. Great Vessels The aortic root is normal in size. The ascending aorta is not well-visualized. IVC is normal in size and collapses >50% with inspiration. Pericardium There is no pericardial effusion. Other Information Study Quality: Fair Conclusion Moderate reduction global LV systolic function (LVEF 30%). Severe hypokinesis of the distal inferior, inferoseptal, and lateral LV lares. Moderate RV dilation with moderate reduction in RV function. Mild RA dilation. Mild TR. RVSP is 30-35 mmHg. Compared to prior study from 09/2023, the biventricular systolic function has improved but remains hypokinetic. Electronically signed by : Deepthi Holly MD 02/18/2024 12:11:41
[2024-02-17 13:54] LABS: Troponin I 0.02 ng/ml (0.00-0.034)
--- NOTE | 2024-02-17 14:06 | PC.NURSE ---
ECHO AT BEDSIDE
--- NOTE | 2024-02-17 14:07 | EXP.CARD.CON ---
History of Present Illness History of Present Illness Consult date: 02/17/24 Requesting physician: Roque Briceño Consult reason: chest pain Chief complaint: chest pain History of present illness: 64-year-old white male well-known by our service with a history of CAD status post CABG 2019. Patient had ischemic cardiomyopathy with reduced EF status post ICD placement. In September of this year he had what appears to have been a pacemaker mediated tachycardia with associated congestive heart failure. He was admitted and we diuresed 20 L. His pacemaker was adjusted and he has been largely stable since that time although EF was noted to be down to 10%. He was due to follow-up in our office in October but we have not seen him since then. Today he presents to the emergency room states overall he has been feeling very well and has been active working on cars doing house chores without symptoms. Today he was lifting a heavy can of paint and developed a substernal chest tightness which did not improve with rest. He came to the emergency room and had nearly complete resolution with nitroglycerin and morphine. Vitals are stable, first troponin is normal. Chest x-ray is clear. [facility] Disclaimer: The information contained in this section may have been updated after the patient was seen, as this information can be updated by other users. Medical History Pneumonia Cardiogenic shock On mechanically assisted ventilation Acute respiratory failure with hypoxia Abdominal pain Constipation Deviated nasal septum Hypertrophy of inferior nasal turbinate Sinusitis Mixed restrictive and obstructive lung disease Cardiac pacemaker in situ Pulmonary emphysema Smoking greater than 30 pack years Dyspnea on exertion Lung mass Nodule of right lung Bilateral chronic serous otitis media Right maxillary sinusitis HFrEF (heart failure with reduced ejection fraction) Impacted cerumen of right ear Dizziness Abnormal electrocardiogram [ECG] [EKG] ANNA (obstructive sleep apnea) Hyperlipidemia Depression Anxiety Gastroesophageal reflux disease Insomnia Coronary artery disease History of TIA (transient ischemic attack) Hypertension Diabetes mellitus Epididymitis Palpitations Opiate withdrawal TIA (transient ischemic attack) Surgical History History of removal of testicle History of hernia surgery History of cholecystectomy History of right mastoidectomy History of coronary artery bypass graft Family History Other Diabetes Social History Smoking Status: Current every day smoker tobacco type: cigarettes packs per day: 1 alcohol intake: never substance use type: denies use current occupational status: disabled Travel in the last 8 weeks: None household members: spouse and children housing: house Review of Systems Constitutional Constitutional: Denies fatigue and Denies weakness Eyes Eyes: Denies loss of vision ENT Ears, Nose, Mouth, and Throat: Denies hearing loss and Denies vertigo *Cardiovascular Cardiovascular: Reports chest pain, Denies dyspnea and Denies syncope *Respiratory Respiratory: Denies cough and Denies dyspnea *Gastrointestinal Gastrointestinal: Denies change in stool character, Denies nausea and Denies vomiting *Genitourinary Genitourinary: Denies difficulty urinating *Musculoskeletal Musculoskeletal: Denies muscle weakness Integumentary/Breasts Skin/Breast: Denies changing lesions *Neurologic Neurologic: Denies loss of vision, Denies syncope, Denies vertigo and Denies weakness Endocrine Endocrine: Denies fatigue Exam Data for Last 24 hours Vital signs and Labs for Last 24 Hours: Temp Pulse Resp BP Pulse Ox O2 Del Method 98.0 F 68 18 132/74 99 Room Air 02/17/24 09:46 02/17/24 13:01 02/17/24 13:01 02/17/24 13:01 02/17/24 13:01 02/17/24 10:30 Laboratory Results - last 24 hr 02/17/24 09:56: WBC 6.2, RBC 4.14 L, Hgb 12.3 L, Hct 40.4 L, MCV 97.6 H, MCH 29.7, MCHC 30.5 L, RDW 22.3 H, Plt Count 114 L, MPV 10.7 H, Neut % (Auto) 71.8, Lymph % (Auto) 16.7, Arthur % (Auto) 8.6, Eos % (Auto) 2.3, Baso % (Auto) 0.6, Neut # (Auto) 4.4, Lymph # (Auto) 1.0, Arthur # (Auto) 0.5, Eos # (Auto) 0.1, Baso # (Auto) 0.0, Sodium 135 L, Potassium 3.9, Chloride 101, Carbon Dioxide 28, Anion Gap 9.9, BUN 35 H, Creatinine 1.10, Estimated Creat Clear 87, Estimated GFR 68, Est GFR ( Amer) 82, Glucose 362 H, Calcium 8.9, Total Bilirubin 0.5, AST 28, ALT 26, Alkaline Phosphatase 150 H, Troponin I 0.01, Total Protein 7.0, Albumin 3.9, Globulin 3.1, Albumin/Globulin Ratio 1.3, HIV 1&2 Antibody Rapid Nonreactive 02/17/24 13:27: Troponin I 0.02 I & O for Last 24 hours: Intake & Output 02/14/24 02/15/24 02/16/24 02/17/24 23:59 23:59 23:59 23:59 Weight 198 lb Constitutional Constitutional: no acute distress and cooperative *Routine HEENT Exam Eye: Present PERRL *Routine Respiratory Exam Respiratory: Present CTA bilaterally; Absent accessory muscle use, wheezes or crackles *Routine Cardiovascular Exam Cardiovascular: Present RRR, Normal S1 and Normal S2; Absent murmur, gallop or rubs *Routine Abdominal Exam Abdominal: Present soft; Absent tenderness *Routine Extremities Exam Extremities: Present pulses intact; Absent cyanosis or edema *Routine Skin Exam Skin: Present intact; Absent erythema or wounds *Routine Neurological Exam Neurological: Present alert and oriented X3 Routine Psychiatric Exam Psychiatric: Present cooperative Meds Home Medications and Allergies Home Medications ?Medication ?Instructions ?Recorded ?Confirmed ?Type gabapentin 600 mg tablet 600 mg PO QID 09/03/23 01/13/24 History atorvastatin 40 mg tablet See Rx Instructions .Route 10/15/23 01/13/24 Rx .COMPLEX #90 ea clopidogrel 75 mg tablet 75 mg PO DAILY #90 tabs 11/03/23 01/13/24 Rx duloxetine 60 mg capsule,delayed 60 mg PO DAILY #90 caps 11/03/23 01/13/24 Rx release glimepiride 4 mg tablet 4 mg PO DAILY #90 tabs 11/03/23 01/13/24 Rx omeprazole 40 mg capsule,delayed See Rx Instructions .Route 11/03/23 01/13/24 Rx release .COMPLEX #180 caps varenicline 0.5 mg (11)-1 mg (42) See Rx Instructions PO PER PKG DIR 11/03/23 01/13/24 Rx tablets in a dose pack (Chantix 28 days #53 tabs Starting Month Box) varenicline 1 mg tablet (Chantix 1 mg PO BID #56 tabs 11/03/23 01/13/24 Rx Continuing Month Box) blood sugar diagnostic (OneTouch #50 ea 11/10/23 01/13/24 Rx Ultra Test strips) spironolactone 50 mg tablet 50 mg PO DAILY 11/11/23 01/13/24 History lidocaine 5 % topical patch 1 patch topical DAILY #15 ea 12/30/23 01/13/24 Rx empagliflozin 10 mg tablet 10 mg PO DAILY #90 tabs 01/04/24 01/13/24 Rx (Jardiance) amoxicillin 500 mg-potassium 1 tab PO BID 14 days #28 tabs 01/13/24 01/13/24 Rx clavulanate 125 mg tablet (Augmentin) empagliflozin 25 mg tablet 25 mg PO DAILY #30 tabs 01/13/24 01/13/24 Rx metformin 1,000 mg tablet 1,000 mg PO BID #60 tabs 01/13/24 01/13/24 Rx bumetanide 2 mg tablet 2 mg PO BID #60 tabs 01/15/24 Rx carvedilol 12.5 mg tablet 12.5 mg PO BID #180 tabs 01/15/24 Rx sacubitril 97 mg-valsartan 103 mg See Rx Instructions .Route 02/17/24 Rx tablet (Entresto) .COMPLEX #180 tabs New Prescriptions to Start Prescriptions: Allergies Allergy/AdvReac Type Severity Reaction Status Date / Time dobutamine AdvReac Unknown Hypertensio Verified 01/13/24 11:04 n Assessment and Plan *Assessment and plan (1) CAD in [place] artery: Status: Acute Category: Medical Code(s): I25.10 - Atherosclerotic heart disease of [place] coronary artery without angina pectoris (2) AICD (automatic cardioverter/defibrillator) present: Status: Acute Category: Surgical Code(s): Z95.810 - Presence of automatic (implantable) cardiac defibrillator (3) Acute on chronic heart failure with reduced ejection fraction and diastolic dysfunction: Status: Acute Category: Medical Code(s): I50.43 - Acute on chronic combined systolic (congestive) and diastolic (congestive) heart failure (4) COPD (chronic obstructive pulmonary disease) with chronic bronchitis: Status: Chronic Category: Medical Code(s): J44.89 - Other specified chronic obstructive pulmonary disease Plan CAD s/p CABG 2019 - med management 07/2022 and 09/2023 - single ep of CP resolved with Ntg - 1st trop normal - EKG SR with PVC - Pt is high risk for complication. Resume home meds, obtain ECHO, observe for 24 hours HFrEF s/p ICD - EF 10% in September - was believed to be worsened EF due to PMT, pt is overdue for repeat ECHO to check status and may warrant device upgrade - CXR clear, NYHA = 1-2 - Physical exam negative for vol overload - resume home meds DM-II - poorly controlled with A1C of 11 - cont home meds, glucose control per primary service COPD - lungs are clear here although he admits some increased mucous production recently - no fever - resume home meds, PRN nebs
--- NOTE | 2024-02-17 14:09 | PC.NURSE ---
pt setting on side of bed at bs
--- NOTE | 2024-02-17 14:09 | PC.NURSE ---
called for pt a lunch tray
--- NOTE | 2024-02-17 14:22 | PC.NURSE ---
called house for a bed assignment
--- NOTE | 2024-02-17 14:36 | PC.NURSE ---
CALLED REPORT TO URIEL COPPOLA
[2024-02-17] MEDS: ACETAMINOPHEN 500MG TAB 1000 MG PO (15:47)
[2024-02-17 17:06] LABS: Troponin I 0.02 ng/ml (0.00-0.034)
--- NOTE | 2024-02-17 18:48 | PC.NURSE ---
Pt stated that if he was under observation. Md went to talk to the pt. he is alert and oriented x4. Pt is pkeasent but stated that he did not want to stay under obs status.
[2024-02-18 05:22] LABS: HCV Ab Non Reactive (Non Reactive)
--- NOTE | 2024-02-18 21:47 | P.HPDS_ITS ---
General Admission date:: 02/17/24 *Admission Date: 02/17/24 *Chief complaint: Chest pain *History of present illness: Cristobal Vargas is a 64 year old male with a medical history significant for CAD s/p CABG and HFrEF (10September 2023) presents with chest pain and cough for the past day. Denies radiation to shoulder and jaw, wheezing, fevers. On arrival, troponins were normal and EKG did not show acute ischemic findings. However, given complex cardiac history case was discussed with ED provider and decision was made to admit patient for ACS rule out. [facility] Disclaimer: The information contained in this section may have been updated after the patient was seen, as this information can be updated by other users. Medical History Pneumonia Cardiogenic shock On mechanically assisted ventilation Acute respiratory failure with hypoxia Abdominal pain Constipation Deviated nasal septum Hypertrophy of inferior nasal turbinate Sinusitis Mixed restrictive and obstructive lung disease Cardiac pacemaker in situ Pulmonary emphysema Smoking greater than 30 pack years Dyspnea on exertion Lung mass Nodule of right lung Bilateral chronic serous otitis media Right maxillary sinusitis HFrEF (heart failure with reduced ejection fraction) Impacted cerumen of right ear Dizziness Abnormal electrocardiogram [ECG] [EKG] ANNA (obstructive sleep apnea) Hyperlipidemia Depression Anxiety Gastroesophageal reflux disease Insomnia Coronary artery disease History of TIA (transient ischemic attack) Hypertension Diabetes mellitus Epididymitis Palpitations Opiate withdrawal TIA (transient ischemic attack) Surgical History History of removal of testicle History of hernia surgery History of cholecystectomy History of right mastoidectomy History of coronary artery bypass graft Family History Other Diabetes Social History (Updated 02/17/24 @ 16:42 by Anh Rojas RN) Smoking Status: Current every day smoker tobacco type: cigarettes packs per day: 1 alcohol intake: never substance use type: denies use current occupational status: disabled Travel in the last 8 weeks: None household members: spouse and children housing: house Other Medical History Have you received the Flu Vaccine for this season: No Have you received the Pneumonia Vaccine: No Review of Systems Constitutional Constitutional: Denies weakness Eyes Eyes: Denies loss of vision ENT Ears, Nose, Mouth, and Throat: Denies vertigo *Cardiovascular Cardiovascular: Denies syncope *Neurologic Neurologic: Denies loss of vision, Denies syncope, Denies vertigo and Denies weakness Exam Data for Last 24 hours Vital signs and Labs for Last 24 Hours: Temp Pulse Resp BP Pulse Ox O2 Del Method 97.9 F 80 19 124/72 97 Room Air 02/17/24 15:36 02/17/24 16:00 02/17/24 15:36 02/17/24 15:36 02/17/24 15:36 02/17/24 17:00 Laboratory Results - last 24 hr 02/17/24 09:56: Hepatitis C Antibody Non reactive I & O for Last 24 hours: Intake & Output 02/15/24 02/16/24 02/17/24 02/18/24 23:59 23:59 23:59 23:59 Output Total 0 / 0 Balance 0 / 0 Weight 97.579 kg Constitutional Constitutional: no acute distress and obese *Routine HEENT Exam Head: Present normocephalic Eye: Present EOMI and PERRL ENT: Present mucous membranes moist *Routine Neck Exam Neck: Present supple; Absent lymphadenopathy *Routine Respiratory Exam Respiratory: Present CTA bilaterally *Routine Cardiovascular Exam Cardiovascular: Present RRR *Routine Abdominal Exam Abdominal: Present soft and normoactive bowel sounds; Absent tenderness *Routine Rectal Exam Rectal:: deferred *Routine Genitalia Exam Genitalia:: deferred *Routine Extremities Exam Extremities: Absent cyanosis, clubbing or edema *Routine Skin Exam Skin: Present warm; Absent rash *Routine Neurological Exam Neurological: Present alert and oriented X3 Meds Home Medications and Allergies Home Medications ?Medication ?Instructions ?Recorded ?Confirmed ?Type gabapentin 600 mg tablet 600 mg PO TID 09/03/23 02/17/24 History atorvastatin 40 mg tablet See Rx Instructions .Route 10/15/23 02/17/24 Rx .COMPLEX #90 ea clopidogrel 75 mg tablet 75 mg PO DAILY #90 tabs 11/03/23 02/17/24 Rx duloxetine 60 mg capsule,delayed 60 mg PO DAILY #90 caps 11/03/23 02/17/24 Rx release glimepiride 4 mg tablet 4 mg PO DAILY #90 tabs 11/03/23 02/17/24 Rx omeprazole 40 mg capsule,delayed See Rx Instructions .Route 11/03/23 02/17/24 Rx release .COMPLEX #180 caps varenicline 1 mg tablet (Chantix 1 mg PO BID #56 tabs 11/03/23 02/17/24 Rx Continuing Month Box) blood sugar diagnostic (OneTouch #50 ea 11/10/23 02/17/24 Rx Ultra Test strips) spironolactone 50 mg tablet 50 mg PO DAILY 11/11/23 02/17/24 History lidocaine 5 % topical patch 1 patch topical DAILY #15 ea 12/30/23 02/17/24 Rx empagliflozin 25 mg tablet 25 mg PO DAILY #30 tabs 01/13/24 02/17/24 Rx metformin 1,000 mg tablet 1,000 mg PO BID #60 tabs 01/13/24 02/17/24 Rx bumetanide 2 mg tablet 2 mg PO BID #60 tabs 01/15/24 02/17/24 Rx carvedilol 12.5 mg tablet 12.5 mg PO BID #180 tabs 01/15/24 02/17/24 Rx aspirin 325 mg tablet 325 mg PO DAILY 02/17/24 02/17/24 History magnesium 500 mg tablet 500 mg PO DAILY 02/17/24 02/17/24 History nitroglycerin 0.4 mg sublingual See Rx Instructions .Route .COMPLEX 02/17/24 02/17/24 History tablet potassium 99 mg tablet 99 mg PO BID 02/17/24 02/17/24 History sacubitril 97 mg-valsartan 103 mg See Rx Instructions .Route 02/17/24 02/17/24 Rx tablet (Entresto) .COMPLEX #180 tabs New Prescriptions to Start Prescriptions: Allergies Allergy/AdvReac Type Severity Reaction Status Date / Time dobutamine AdvReac Unknown Hypertensio Verified 01/13/24 11:04 n Hospital Course Hospital Course Hospital Course: Cristobal Vargas is a 64 year old male with a medical history significant for CAD s/p CABG and HFrEF (10% September 2023) presents with chest pain and cough for the past day. Denies radiation to shoulder and jaw, wheezing, fevers. On arrival, troponins were normal and EKG did not show acute ischemic findings. However, given complex cardiac history case was discussed with ED provider and decision was made to admit patient for ACS rule out. #Chest pain #Left AMA - Complex cardiac history with CABG and severe HFrEF. - Trops negative and EKG unremarkable for acute ischemia. - Mavis, recommended overnight monitor for potential ischemic workup with stress test/LHC tomorrow for ACS rule out but patient wanted to go because he did states she cannot afford out of pocket expense for observation status. - The patient is clinically not intoxicated, free from distracting pain, appears to have intact insight, judgment and reason and in my medical opinion has the capacity to make decisions. The patient is also not under any duress to leave [facility]. In this scenario, it would be battery to subject a patient to treatment against his/her will. I have voiced my concerns for the patient's health given that a full evaluation and treatment had not occurred. I have discussed the need for continued evaluation to determine if their symptoms are caused by a condition that present risk of or morbidity. Risks including but not limited to , permanent disability, prolonged hospitalization, prolonged illness, were discussed. I discussed the specific benefits of additional treatment, as well as tried offering alternative options in hopes that the patient might be amenable to partial evaluation and treatment which would be medically beneficial to the patient. However, the patient declined my options and insisted on leaving. Because I have been unable to convince the patient to stay, I answered all of their questions about their condition and asked them to return to the ED as soon as possible to complete their evaluation, especially if their symptoms worsen or do not improve. I emphasized that leaving against medical advice does not preclude returning here for further evaluation. I asked the patient to return if they change their mind about the further evaluation and treatment. I strongly encouraged the patient to return to this Emergency Department or any Emergency Department at any time, particularly with worsening symptoms. Patient was agreeable to this plan. - Continue home asprin, plavix, statin. Results Data Completed and Pending Labs on day of discharge: Labs from last 24 hours 02/17/24 09:56 Hepatitis C Antibody Non reactive DS: Diagnosis Discharge Diagnosis (1) CAD in [place] artery: Status: Acute Code(s): I25.10 - Atherosclerotic heart disease of [place] coronary artery without angina pectoris (2) AICD (automatic cardioverter/defibrillator) present: Status: Acute Code(s): Z95.810 - Presence of automatic (implantable) cardiac defibrillator (3) Acute on chronic heart failure with reduced ejection fraction and diastolic dysfunction: Status: Acute Code(s): I50.43 - Acute on chronic combined systolic (congestive) and diastolic (congestive) heart failure (4) COPD (chronic obstructive pulmonary disease) with chronic bronchitis: Status: Chronic Code(s): J44.89 - Other specified chronic obstructive pulmonary disease Discharge Plan Disposition Patient Disposition: Left Against Medical Advice Condition: Good Patient Discharge Instructions Print Language: [place] Providers Admit Provider: Donnell Ivey Attending Provider: Donnell Ivey
== END 2024-02-17 18:46 | disposition left against medical advice (07) ==
LOC: ER 13:59 → 2ND 14:28
PROVIDERS: Admitting Provider Internal Medicine Adolescent Medicine; Emergency Provider Emergency Medicine; PCP Internal Medicine; Visit Provider Internal Medicine Adolescent Medicine
DX: R07.9 Chest pain, unspecified (principal); F17.210 Nicotine dependence, cigarettes, uncomplicated; I25.10 Atherosclerotic heart disease of native coronary artery without angina pectoris; Z95.810 Presence of automatic (implantable) cardiac defibrillator; I50.43 Acute on chronic combined systolic (congestive) and diastolic (congestive) heart failure; J44.89 Other specified chronic obstructive pulmonary disease; I11.0 Hypertensive heart disease with heart failure; Z79.899 Other long term (current) drug therapy
CPT/HCPCS: 71046; 80053; 84484; 85025; 86803; 87389; 93005; 93306; 99285; G0378; J2270; J2405

== ENCOUNTER 2024-02-24 19:18 | Outpatient (CLI) | payer MEDICARE, SELFPAY ==
[2024-02-24 19:53] LABS: Hemoglobin A1C 9.4 % (4.0-6.0)
[2024-02-24 20:28] LABS: Thyroid Stimulating Hormone 0.84 uIU/mL (0.465-4.68)
== END 2024-02-24 23:59 | disposition home or self-care (01) ==
LOC: LAB.DROPOF 19:19
PROVIDERS: PCP Internal Medicine; Visit Provider Internal Medicine
DX: E11.9 Type 2 diabetes mellitus without complications (principal); G47.00 Insomnia, unspecified
CPT/HCPCS: 83036; 84443

== ENCOUNTER 2024-03-28 08:10 | Emergency (ER) | payer MEDICARE, SELFPAY ==
[2024-03-28] VITALS (8 sets, daily range): BP systolic 81–110; BP diastolic 35–74; PULSE 67–87; RESP 18; TEMP 36.4–36.6; O2SAT 97–100; BMI 29.2
--- NOTE | 2024-03-28 08:18 | ECG_ITS ---
APPROVED REPORT Exam: Resting ECG HR:73 bpm ECG Measurements Heart Rate 73 AXES SD 175 P 48 QRSd 104 QRS -59 QT 382 T 83 QTc 408 Conclusion SINUS RHYTHM PATTERN CONSISTENT WITH PULMONARY DISEASE LEFT ANTERIOR FASCICULAR BLOCK [QRS AXIS <= -45, QR IN I, RS IN II] NONSPECIFIC ST & T-WAVE ABNORMALITY ABNORMAL ECG Electronically signed by : DANIEL MORRELL, 03/28/2024 16:58:43
--- NOTE | 2024-03-28 08:53 | PC.NURSE ---
DR MORRELL AT BEDSIDE
--- NOTE | 2024-03-28 08:57 | CT_ITS ---
FINAL REPORT TECHNIQUE: Axial CT of the brain with contrast. Coronal and sagittal reformatted images were obtained. This study was performed with techniques to keep radiation doses as low as reasonably achievable, (ALARA). Individualized dose reduction techniques using automated exposure control or adjustment of mA and/or kV according to the patient's size were employed. CLINICAL HISTORY: severe frontal headache COMPARISON: None FINDINGS: There is no mass effect or midline shift. There is no hydrocephalus. The ventricles are symmetric in size and configuration. There is no extra-axial or intraparenchymal hemorrhage. The posterior fossa is without acute abnormality. The basilar cisterns are preserved. No evidence of venous thrombosis is identified. There is focal occlusion of the right distal vertebral artery, which is stable when compared to the prior CTA of 03/06/2023. There is high-grade stenosis of the distal left vertebral artery, difficult to accurately evaluate secondary to calcified plaque. There is moderate stenosis of the distal basilar artery with an ectatic appearing basilar tip and proximal right posterior cerebral artery. There is calcified plaque in the distal internal carotid arteries with mild stenosis. There is mild stenosis of the proximal left middle cerebral artery. The soft tissues are without acute abnormality. No acute osseous abnormality is identified. No abnormal contrast enhancement is seen. IMPRESSION: No abnormal contrast-enhancement is identified, and no definite venous thrombosis is present. There are moderate to severe focal areas of atherosclerotic disease in multiple vessels, including a focal occlusion of the right distal vertebral artery, which is stable, and high-grade stenosis of the distal left vertebral artery, difficult to accurately evaluate secondary to calcified plaque. Reviewed, Interpreted and Dictated by Kirt Escobar III, MD Transcribed by Kelly Vuong Authenticated and [facility]
--- NOTE | 2024-03-28 08:57 | CT_ITS ---
FINAL REPORT CLINICAL HISTORY: frontal headache, severe nose pain COMPARISON: None FINDINGS: Axial images of the head were obtained without contrast. Coronal and sagittal reformatted images were also obtained. This study was performed with techniques to keep radiation doses as low as reasonably achievable (ALARA). Individualized dose reduction techniques using automated exposure control or adjustment of mA and/or kV according to the patient's size were employed. There is generalized age appropriate atrophy. There is no evidence of intracranial hemorrhage or mass. The ventricular size is within normal limits. There is no evidence of shift of the midline structures. No skull abnormality is seen on the bone window images. There is right temporal encephalomalacia. The patient has undergone a prior right mastoidectomy. IMPRESSION: No acute intracranial abnormality. Right temporal encephalomalacia. Reviewed, Interpreted and Dictated by Kirt Escobar III, MD Transcribed by Kelly Vuong Authenticated and [facility]
[2024-03-28 09:05] LABS: Coronavirus 19, PCR Not Detected (NotDetected); Influenza A, PCR Not Detected (NotDetected); Influenza B, PCR Not Detected (NotDetected)
[2024-03-28 09:05] LABS: Basophils # 0.1 K/mm3 (0-0.2); Basophils % 1.1 % (0.1-2.0); Eosinophils # 0.2 K/mm3 (0.0-0.4); Hematocrit 45.2 % (42.0-52.0); Hemoglobin 14.6 g/dL (14.1-18.0); Lymphocytes # 1.8 K/mm3 (0.7-4.5); Lymphocytes % 23.7 % (10-50); Mean Corpuscular HGB Conc 32.3 g/dL (31.8-35.4); Mean Corpuscular Hemoglobin 31.6 pg (27.0-31.2); Mean Platelet Volume 9.8 fl (7.4-10.4); Monocytes # 0.4 K/mm3 (0.1-1.0); Monocytes % 5.9 % (1.7-9.3); Neutrophils % 66.4 % (37.0-80.0); Platelet Count 165 K/mm3 (142-424); Red Blood Count 4.61 M/mm3 (4.60-6.20); Red Cell Distribution Width 17.4 % (11.5-17.5); White Blood Count 7.5 K/mm3 (4.8-10.8)
[2024-03-28] MEDS: ACETAMINOPHEN 1,000MG/100ML VIAL 1000 MG IV (09:05)
[2024-03-28] MEDS: KETOROLAC 30MG/ML VIAL 30 MG IV (09:05)
--- NOTE | 2024-03-28 09:06 | ED_ITS ---
Discharge Plan Disposition Patient Disposition: Left Against Medical Advice Prescriptions Prescriptions: No Action clopidogrel 75 mg tablet 75 mg PO DAILY Qty: 90 0RF duloxetine 60 mg capsule,delayed release(DR/EC) 60 mg PO DAILY Qty: 90 0RF glimepiride 4 mg tablet 4 mg PO DAILY Qty: 90 0RF varenicline [Chantix Continuing Month Box] 1 mg tablet 1 mg PO BID Qty: 56 4RF metformin 1,000 mg tablet 1,000 mg PO BID Qty: 60 2RF empagliflozin 25 mg tablet 25 mg PO DAILY Qty: 30 2RF doxycycline hyclate 100 mg capsule 100 mg PO BID 10 Days Qty: 20 0RF guaifenesin [Mucinex] 600 mg tablet extended release 12hr 600 mg PO BID Qty: 60 0RF spironolactone 50 mg tablet 50 mg PO DAILY Patient Comments: TAKE ONE TABLET BY MOUTH EVERY DAY oxycodone-acetaminophen 10-325 mg tablet 1 tab PO atorvastatin 40 mg tablet See Rx Instructions .ROUTE .COMPLEX Qty: 90 3RF Dose Instruction: TAKE 1 TABLET BY MOUTH ONCE DAILY Rx Instructions: TAKE 1 TABLET BY MOUTH ONCE DAILY (DME) OneTouch Ultra Test Strip See Rx Instructions .Route Qty: 50 2RF Rx Instructions: daily testing bumetanide 2 mg tablet 2 mg PO BID Qty: 60 5RF carvedilol 12.5 mg tablet 12.5 mg PO BID Qty: 180 3RF Entresto 97-103 mg tablet See Rx Instructions .ROUTE .COMPLEX Qty: 180 3RF Dose Instruction: TAKE ONE TABLET BY MOUTH TWICE DAILY Rx Instructions: TAKE ONE TABLET BY MOUTH TWICE DAILY omeprazole 40 mg capsule,delayed release(DR/EC) See Rx Instructions .ROUTE .COMPLEX Qty: 180 1RF Dose Instruction: TAKE 1 CAPSULE BY MOUTH TWICE DAILY - SWALLOW WHOLE; DO NOT CRUSH, CHEW, DISSOLVE, CUT, BREAK Rx Instructions: TAKE 1 CAPSULE BY MOUTH TWICE DAILY - SWALLOW WHOLE; DO NOT CRUSH, CHEW, DISSOLVE, CUT, BREAK lidocaine 5 % adhesive patch,medicated 1 patch topical DAILY Qty: 15 0RF Rx Instructions: Remove patch after 12 hours and leave off for 12 hours before using a new one magnesium 500 mg Tablet 500 mg PO DAILY aspirin 325 mg Tablet 325 mg PO DAILY potassium 99 mg Tablet 99 mg PO BID nitroglycerin 0.4 mg Tablet, Sublingual See Rx Instructions .ROUTE .COMPLEX Rx Instructions: 0.4 mg sublingually gabapentin 600 mg tablet 600 mg PO TID Referrals Follow up/Referrals: Bebeto Armenta DO [Primary Care Provider] - See instructions Itzel Pickering APRN [Nurse Practitioner] - See instructions Activity Restrictions/Add. Instructions Additional Instructions/Restrictions: You elected to leave the emergency department AGAINST MEDICAL ADVICE. Your CT scans are not back yet and you have blood abnormalities that can make you very sick as discussed which need further investigation. Please return to the emergency department at any point however if you are not able to please call and schedule appoint with your family doctor soon as possible to repeat your blood work and call and schedule appoint with ear nose and throat as soon as you are able. Clinical Impressions Clinical Impression: GITA (acute kidney injury), Hyperglycemia, Headache, Nasal pain Print Language Print Language: Slovenian Discharge ED Provider: Roque Briceño General Adult HPI General Chief complaint: Upper Respiratory Infection Stated complaint: burning nose Time Seen by Provider: 03/28/24 08:16 Mode of Arrival: Ambulatory Limitations: No Limitations Description of Symptoms (Recalled from ER Triage Doc. by RN): PT C/O BURNING IN NOSE, RUNNY NOSE, CONGESTION, SINUS PRESSURE AND CHEST TIGHTENING. CURRENTLY ON ABX BY CARDIOLOGY History of Present Illness HPI narrative: Patient is a 64-year-old male with past medical history of diabetes, chronic smoker, COPD, CHF on CPAP at night who presents to the emergency department for evaluation of nose burning and frontal headache. Onset was acute, over the last 48 hours. There is a slight cough however it is not much worse than normal. He feels as if it is burning in the bilateral sides of his nose which initially began on the right transiently and went away however resurged bilaterally. There is pressure in between his eyebrows that is moderate to severe. No visual acuity changes, no gait changes, no chest pain reported to me although he does report some tightening to the nurses that is been persistent. No other acute complaints at this time Related Data Home Medications ?Medication ?Instructions ?Recorded ?Confirmed gabapentin 600 mg tablet 600 mg PO TID 09/03/23 03/23/24 spironolactone 50 mg tablet 50 mg PO DAILY 11/11/23 03/23/24 aspirin 325 mg tablet 325 mg PO DAILY 02/17/24 03/23/24 magnesium 500 mg tablet 500 mg PO DAILY 02/17/24 03/23/24 nitroglycerin 0.4 mg sublingual See Rx Instructions .Route .COMPLEX 02/17/24 03/23/24 tablet potassium 99 mg tablet 99 mg PO BID 02/17/24 03/23/24 oxycodone-acetaminophen 10 mg-325 1 tab PO 02/24/24 03/23/24 mg tablet Previous Rx's ?Medication ?Instructions ?Recorded atorvastatin 40 mg tablet See Rx Instructions .Route 10/15/23 .COMPLEX #90 ea clopidogrel 75 mg tablet 75 mg PO DAILY #90 tabs 11/03/23 duloxetine 60 mg capsule,delayed 60 mg PO DAILY #90 caps 11/03/23 release glimepiride 4 mg tablet 4 mg PO DAILY #90 tabs 11/03/23 varenicline 1 mg tablet (Chantix 1 mg PO BID #56 tabs 11/03/23 Continuing Month Box) blood sugar diagnostic (OneTouch #50 ea 11/10/23 Ultra Test strips) lidocaine 5 % topical patch 1 patch topical DAILY #15 ea 12/30/23 empagliflozin 25 mg tablet 25 mg PO DAILY #30 tabs 01/13/24 metformin 1,000 mg tablet 1,000 mg PO BID #60 tabs 01/13/24 bumetanide 2 mg tablet 2 mg PO BID #60 tabs 01/15/24 carvedilol 12.5 mg tablet 12.5 mg PO BID #180 tabs 01/15/24 sacubitril 97 mg-valsartan 103 mg See Rx Instructions .Route 02/17/24 tablet (Entresto) .COMPLEX #180 tabs omeprazole 40 mg capsule,delayed See Rx Instructions .Route 03/14/24 release .COMPLEX #180 caps doxycycline hyclate 100 mg capsule 100 mg PO BID 10 days #20 caps 03/23/24 guaifenesin 600 mg tablet, 600 mg PO BID #60 tabs 03/23/24 extended release 12 hr (Mucinex) Allergies Allergy/AdvReac Type Severity Reaction Status Date / Time dobutamine AdvReac Unknown Hypertensio Verified 03/23/24 08:58 n [facility] Disclaimer: The information contained in this section may have been updated after the patient was seen, as this information can be updated by other users. Medical History Pneumonia Cardiogenic shock On mechanically assisted ventilation Acute respiratory failure with hypoxia Abdominal pain Constipation Deviated nasal septum Hypertrophy of inferior nasal turbinate Sinusitis Mixed restrictive and obstructive lung disease Cardiac pacemaker in situ Pulmonary emphysema Smoking greater than 30 pack years Dyspnea on exertion Lung mass Nodule of right lung Bilateral chronic serous otitis media Right maxillary sinusitis HFrEF (heart failure with reduced ejection fraction) Impacted cerumen of right ear Dizziness Abnormal electrocardiogram [ECG] [EKG] ANNA (obstructive sleep apnea) Hyperlipidemia Depression Anxiety Gastroesophageal reflux disease Insomnia Coronary artery disease History of TIA (transient ischemic attack) Hypertension Diabetes mellitus Epididymitis Palpitations Opiate withdrawal TIA (transient ischemic attack) Surgical History History of removal of testicle History of hernia surgery History of cholecystectomy History of right mastoidectomy History of coronary artery bypass graft Family History Other Diabetes Social History Smoking Status: Current every day smoker tobacco type: cigarettes packs per day: 1 alcohol intake: never substance use type: denies use current occupational status: disabled Travel in the last 8 weeks: None household members: spouse and children housing: house Other Medical History Have you received the Flu Vaccine for this season: No Have you received the Pneumonia Vaccine: No ROS Obtained: Yes Systems reviewed as appropriate & no additional complaints except as documented Physical Exam General General appearance: alert and in no apparent distress Head Head exam: atraumatic and normocephalic Eye Eye exam: Present PERRL and EOMI ENT ENT exam: Present normal oropharynx, mucous membranes moist and other (NasalNo obvious abnormalities of the distal nasal passages bilaterally) Neck Neck exam: Present normal inspection and full ROM Chest Chest inspection: Present normal inspection and symmetric chest wall rise Respiratory Respiratory exam: Present normal lung sounds bilaterally; Absent respiratory distress Cardiovascular Cardiovascular exam: Present regular rate and normal rhythm Abdominal Exam Abdominal exam: Present soft; Absent tenderness Extremities Exam Extremities exam: Present normal inspection Neurological Exam Neurological exam: Present alert and CN II-XII intact; Absent motor sensory deficit Psychiatric Psychiatric exam: Present normal affect Skin Skin exam: Present warm and dry Medical Decision Making Medical Records Screening: Per USPSTF and CDC recommendations, given the prevalence of disease in our region, it is our hospital?s policy to screen for HIV and viral Hepatitis for all patients aged 18 and over and those with ongoing risk factors. George Inquiry Pt receiving controlled substance: No Vital Signs: 03/28/24 08:11 03/28/24 08:31 03/28/24 09:00 Temperature 97.6 F Temperature Source Oral Pulse Rate 70 69 Pulse Rate [Apical] 83 Respiratory Rate 18 Blood Pressure 106/61 L 88/56 L Blood Pressure [Right Arm] 110/74 Blood Pressure Mean 76 Blood Pressure Mean [Right Arm] 86 Blood Pressure Source [Right Arm] Automatic Cuff Blood Pressure Position [Right Arm] Sitting 02 Sat by Pulse Oximetry 97 98 97 Oxygen Delivery Method Room Air Room Air Room Air 03/28/24 09:13 03/28/24 09:13 03/28/24 09:26 Temperature Temperature Source Pulse Rate 85 87 67 Pulse Rate [Apical] Respiratory Rate Blood Pressure 98/35 L Blood Pressure [Right Arm] Blood Pressure Mean 64 Blood Pressure Mean [Right Arm] Blood Pressure Source [Right Arm] Blood Pressure Position [Right Arm] 02 Sat by Pulse Oximetry 100 Oxygen Delivery Method 03/28/24 09:30 03/28/24 10:30 Temperature Temperature Source Pulse Rate 67 70 Pulse Rate [Apical] Respiratory Rate Blood Pressure 81/55 L 83/55 L Blood Pressure [Right Arm] Blood Pressure Mean 62 Blood Pressure Mean [Right Arm] Blood Pressure Source [Right Arm] Blood Pressure Position [Right Arm] 02 Sat by Pulse Oximetry 100 99 Oxygen Delivery Method Room Air Lab Data Lab Results 03/28/24 08:24: WBC 7.5, RBC 4.61, Hgb 14.6, Hct 45.2, MCV 98.0 H, MCH 31.6 H, MCHC 32.3, RDW 17.4, Plt Count 165, MPV 9.8, Neut % (Auto) 66.4, Lymph % (Auto) 23.7, [place] % (Auto) 5.9, Eos % (Auto) 3.0, Baso % (Auto) 1.1, Neut # (Auto) 5.0, Lymph # (Auto) 1.8, [place] # (Auto) 0.4, Eos # (Auto) 0.2, Baso # (Auto) 0.1, S odium 135 L, Potassium 4.5, Chloride 100, Carbon Dioxide 24, Anion Gap 15.5 H, B UN 66 H, Creatinine 1.70 H, Estimated Creat Clear 60, Estimated GFR 41 L, Est GFR ( Amer) 50 L, Glucose 299 H, Calcium 8.9, Total Bilirubin 0.5, AST 27, ALT 22, Alkaline Phosphatase 132 H, Troponin I 0.03, Total Protein 7.5, Albumin 4.3, Globulin 3.2, Albumin/Globulin Ratio 1.3 03/28/24 09:00: SARS-CoV-2 (PCR) Not detected, Influenza A Untype (PCR) Not detected, Influenza Type B (PCR) Not detected 03/28/24 08:24 03/28/24 08:24 Orders (Tests/Meds): ED MEDICATIONS Generic Name Dose Route Start Last Admin Trade Name Freq PRN Reason Stop Dose Admin Sodium Chloride 10 ml 03/28/24 09:54 03/28/24 09:55 Sodium Chloride 0.9% 10ml Syr (Rad Only) IV 04/27/24 09:53 10 ml NEEDED PRN Administration Maintain IV Site Discontinued Medications Generic Name Dose Route Start Last Admin Trade Name Freq PRN Reason Stop Dose Admin Acetaminophen 1,000 mg 03/28/24 08:57 03/28/24 09:05 Acetaminophen 1,000mg/100ml Vial IV 03/28/24 08:58 1,000 mg ONCE ONE Administration Iopamidol 75 ml 03/28/24 09:54 03/28/24 09:55 Iopamidol-370 (76%);100ml Bottle IV 03/28/24 09:55 75 ml ONCE ONE Administration Ketorolac Tromethamine 30 mg 03/28/24 08:57 03/28/24 09:05 Ketorolac 30mg/Ml Vial IV 03/28/24 08:58 30 mg ONCE ONE Administration Lidocaine HCl 5 ml 03/28/24 08:58 03/28/24 09:11 Lidocaine 2% 5ml Pf Vial IH 03/28/24 08:59 5 ml ONCE ONE Administration Sodium Chloride 50 ml 03/28/24 09:54 03/28/24 09:55 0.9 % Sodium Chloride 50 Ml Vial IV 03/28/24 09:55 50 ml ONCE ONE Administration ORDERS Category Date Time Status CT Venogram head Stat Cat Scan 03/28/24 08:[address] head/brain wo con Stat Cat Scan 03/28/24 08:57 Taken CXR --portable [XR chest portable] Stat Exams 03/28/24 09:07 Taken CBC w/Auto Diff [Complete Blood Count Auto Diff] Stat Lab 03/28/24 08:24 Completed CMP [Comprehensive Metabolic Panel] Stat Lab 03/28/24 08:24 Completed HIV (1&2) Antibody Rapid Stat Lab 03/28/24 08:24 Received Hep C Ab with Reflex to RNA Stat Lab 03/28/24 08:24 Received Rapid PCR Covid and Flu A/B Stat Lab 03/28/24 09:00 Completed Trop I [Troponin I] Stat Lab 03/28/24 08:24 Completed Troponin I Q3H Lab 03/28/24 12:15 Ordered Troponin I Q3H Lab 03/28/24 15:15 Ordered ECG Data Tracing #1: Independently interpreted by me rate is 73, rhythm is regular, axis is leftward deviated, no ST elevation in anatomical contiguous leads, QTc 408 HEART Score History (anamnesis): Moderately suspicious ECG: Non-specific disturbance Age: 45-65 years Risk factors: Atherosclerosis history Troponin: </= normal limit HEART Score: 5 Medical Decision Narrative: In summary patient is a 64-year-old male past medical history described above presents emergency department for evaluation of glabella pressure and burning in his nose. Patient is hemodynamically stable nontoxic-appearing upon arrival, afebrile. There is also cough and chest pressure. Differential diagnosis includes viral syndrome, primary headache, venous sinus thrombosis, ACS, viral respiratory infection, among others. Workup will be conducted with hematologic labs, chest x-ray, EKG, troponin, noncontrasted CT scan of the head, CTV. Initial inventions include Toradol, Tylenol, lidocaine neb. Initial workup reviewed by me, hematologic labs with no significant leukocytosis, there is an GITA present, hyperglycemia with anion gap of 15.5, initial troponin within normal limits. CT is conducted and pending. Patient is requesting to leave at this time. It was stressed upon him that he has multiple abnormalities that need further investigation at this time and possible admission. Patient does not want to pursue these at this time or wait for his CAT scan reads and wishes to go home. It was again stressed upon the patient that patient may become very ill from this decision however he persistently wants to go home. Patient is able to understand his decision, appreciate his decision, reason there is choice to make an express choice having capacity. Patient was given the number for ENT and he was also stressed to follow-up with his PCP within 48 hours and he can come back to the emergency department at anytime for continued investigation. Critical Care Critical Care Time Critical Care Time: No
--- NOTE | 2024-03-28 09:07 | XR_ITS ---
FINAL REPORT CLINICAL HISTORY: Nonspecific cough COMPARISON: 02/17/2024 FINDINGS: A single portable view of the chest was obtained. A left subclavian ICD is noted. The heart size and pulmonary vascularity are within normal limits. The patient is status post median sternotomy. No acute pulmonary abnormality is identified. The bony thorax is intact. IMPRESSION: No active cardiopulmonary disease. Reviewed, Interpreted and Dictated by Kirt Escobar III, MD Transcribed by Rosalina Martinez Authenticated and [facility]
[2024-03-28 09:10] LABS: Alanine Aminotransferase 22 U/L (12-78); Albumin Level 4.3 g/dl (3.5-5.0); Albumin/Globulin Ratio 1.3 (1.1-1.8); Alkaline Phosphatase 132 U/L (38-126); Anion Gap 15.5 mEq/L (5-15); Aspartate Amino Transferase 27 U/L (17-59); Bilirubin,Total 0.5 mg/dl (0.2-1.3); Blood Urea Nitrogen 66 mg/dl (9-20); Calcium 8.9 mg/dl (8.4-10.2); Carbon Dioxide 24 mmol/L (22.0-30.0); Chloride 100 mmol/L (98-107); Creatinine Clearance Estimated 60 mL/min (50-200); Estimated Glomerular Filt Rate 41 ml/min (>60); GFR (African American) 50 ML/MIN (>60); Globulin 3.2 g/dL (1.3-3.2); Glucose 299 mg/dl (74-100); Potassium 4.5 mmoL/L (3.5-5.1); Sodium 135 mmol/L (136-145); Total Protein,Serum 7.5 g/dl (6.3-8.2)
[2024-03-28] MEDS: LIDOCAINE 2% 5ML PF VIAL 5 ML IH (09:11)
[2024-03-28 09:42] LABS: Troponin I 0.03 ng/ml (0.00-0.034)
[2024-03-28] MEDS: 0.9 % SODIUM CHLORIDE 50 ML VIAL IV (09:55)
[2024-03-28] MEDS: IOPAMIDOL-370 (76%);100ML BOTTLE 75 ML IV (09:55)
[2024-03-28] MEDS: SODIUM CHLORIDE 0.9% 10ML SYR (RAD ONLY) 10 ML IV (09:55)
--- NOTE | 2024-03-28 09:59 | PC.NURSE ---
PT RETURNED FROM CT
--- NOTE | 2024-03-28 11:05 | PC.NURSE ---
ROUNDED ON PT, PT SITTING UP IN BED. ASKING TO LEAVE. STATES HE WANTS TO GO HOME, HE WILL FOLLOW-UP WITH ENT FOR NASAL BURNING AND CT RESULTS. DR MORRELL AT BEDSIDE
[2024-03-28 11:20] LABS: HIV (1&2) Antibody Rapid NONREACTIVE (NONREACTIVE)
[2024-03-29 09:22] LABS: HCV Ab Non Reactive (Non Reactive)
== END 2024-03-28 11:15 | disposition left against medical advice (07) ==
PROVIDERS: Emergency Provider Emergency Medicine; PCP Internal Medicine
DX: N17.9 Acute kidney failure, unspecified (principal); R73.9 Hyperglycemia, unspecified; R51.9 Headache, unspecified; R05.9 Cough, unspecified; R09.81 Nasal congestion; R07.9 Chest pain, unspecified; J34.89 Other specified disorders of nose and nasal sinuses
CPT/HCPCS: 70450; 70496; 71045; 80053; 84484; 85025; 86803; 87389; 87636; 93005; 96374; 96375; 99285; J0131; J1885; Q9967

== ENCOUNTER 2024-04-14 01:51 | Emergency (ER) | payer MEDICARE, SELFPAY ==
--- NOTE | 2024-04-14 01:55 | ED_ITS ---
Discharge Plan Disposition Patient Disposition: Home, Self-Care Prescriptions Prescriptions: New amoxicillin-pot clavulanate 875-125 mg tablet 1 tab PO BID 7 Days Qty: 14 0RF No Action clopidogrel 75 mg tablet 75 mg PO DAILY Qty: 90 0RF duloxetine 60 mg capsule,delayed release(DR/EC) 60 mg PO DAILY Qty: 90 0RF glimepiride 4 mg tablet 4 mg PO DAILY Qty: 90 0RF varenicline [Chantix Continuing Month Box] 1 mg tablet 1 mg PO BID Qty: 56 4RF metformin 1,000 mg tablet 1,000 mg PO BID Qty: 60 2RF empagliflozin 25 mg tablet 25 mg PO DAILY Qty: 30 2RF doxycycline hyclate 100 mg capsule 100 mg PO BID 10 Days Qty: 20 0RF guaifenesin [Mucinex] 600 mg tablet extended release 12hr 600 mg PO BID Qty: 60 0RF spironolactone 50 mg tablet 50 mg PO DAILY Patient Comments: TAKE ONE TABLET BY MOUTH EVERY DAY oxycodone-acetaminophen 10-325 mg tablet 1 tab PO atorvastatin 40 mg tablet See Rx Instructions .ROUTE .COMPLEX Qty: 90 3RF Dose Instruction: TAKE 1 TABLET BY MOUTH ONCE DAILY Rx Instructions: TAKE 1 TABLET BY MOUTH ONCE DAILY (DME) OneTouch Ultra Test Strip See Rx Instructions .Route Qty: 50 2RF Rx Instructions: daily testing bumetanide 2 mg tablet 2 mg PO BID Qty: 60 5RF carvedilol 12.5 mg tablet 12.5 mg PO BID Qty: 180 3RF Entresto 97-103 mg tablet See Rx Instructions .ROUTE .COMPLEX Qty: 180 3RF Dose Instruction: TAKE ONE TABLET BY MOUTH TWICE DAILY Rx Instructions: TAKE ONE TABLET BY MOUTH TWICE DAILY omeprazole 40 mg capsule,delayed release(DR/EC) See Rx Instructions .ROUTE .COMPLEX Qty: 180 1RF Dose Instruction: TAKE 1 CAPSULE BY MOUTH TWICE DAILY - SWALLOW WHOLE; DO NOT CRUSH, CHEW, DISSOLVE, CUT, BREAK Rx Instructions: TAKE 1 CAPSULE BY MOUTH TWICE DAILY - SWALLOW WHOLE; DO NOT CRUSH, CHEW, DISSOLVE, CUT, BREAK lidocaine 5 % adhesive patch,medicated 1 patch topical DAILY Qty: 15 0RF Rx Instructions: Remove patch after 12 hours and leave off for 12 hours before using a new one magnesium 500 mg Tablet 500 mg PO DAILY aspirin 325 mg Tablet 325 mg PO DAILY potassium 99 mg Tablet 99 mg PO BID nitroglycerin 0.4 mg Tablet, Sublingual See Rx Instructions .ROUTE .COMPLEX Rx Instructions: 0.4 mg sublingually gabapentin 600 mg tablet 600 mg PO TID Referrals Follow up/Referrals: Bebeto Armenta DO [Primary Care Provider] - See instructions Activity Restrictions/Add. Instructions Additional Instructions/Restrictions: Please apply eardrops, 4 drops 2 times a day for 7 days. Please take oral ant ibiotics as prescribed. Please follow-up with your primary care provider. Please return to the emergency department if you develop any new or worsening symptoms or become concerned for your health. Clinical Impressions Clinical Impression: Otitis media Qualifiers: Otitis media type: suppurative Chronicity: acute Laterality: right Spontaneous tympanic membrane rupture: with spontaneous rupture Print Language Print Language: Lithuanian Discharge ED Provider: Tevin Quigley Adult HPI General Chief complaint: Ear Stated complaint: Ear infection R ear, dizziness,drainage, jaw pain Time Seen by Provider: 04/14/24 01:53 History of Present Illness HPI narrative: 64-year-old male with history of prior mastoiditis and a variety of medical comorbidities presents with right ear pain and drainage today. He denies fever at home. Reports that he did have mastoiditis in this ear approximately 20 years ago. Reports decreased hearing. Denies other symptoms. Related Data Home Medications ?Medication ?Instructions ?Recorded ?Confirmed gabapentin 600 mg tablet 600 mg PO TID 09/03/23 03/23/24 spironolactone 50 mg tablet 50 mg PO DAILY 11/11/23 03/23/24 aspirin 325 mg tablet 325 mg PO DAILY 02/17/24 03/23/24 magnesium 500 mg tablet 500 mg PO DAILY 02/17/24 03/23/24 nitroglycerin 0.4 mg sublingual See Rx Instructions .Route .COMPLEX 02/17/24 03/23/24 tablet potassium 99 mg tablet 99 mg PO BID 02/17/24 03/23/24 oxycodone-acetaminophen 10 mg-325 1 tab PO 02/24/24 03/23/24 mg tablet Previous Rx's ?Medication ?Instructions ?Recorded atorvastatin 40 mg tablet See Rx Instructions .Route 10/15/23 .COMPLEX #90 ea clopidogrel 75 mg tablet 75 mg PO DAILY #90 tabs 11/03/23 duloxetine 60 mg capsule,delayed 60 mg PO DAILY #90 caps 11/03/23 release glimepiride 4 mg tablet 4 mg PO DAILY #90 tabs 11/03/23 varenicline 1 mg tablet (Chantix 1 mg PO BID #56 tabs 11/03/23 Continuing Month Box) blood sugar diagnostic (OneTouch #50 ea 11/10/23 Ultra Test strips) lidocaine 5 % topical patch 1 patch topical DAILY #15 ea 12/30/23 empagliflozin 25 mg tablet 25 mg PO DAILY #30 tabs 01/13/24 metformin 1,000 mg tablet 1,000 mg PO BID #60 tabs 01/13/24 bumetanide 2 mg tablet 2 mg PO BID #60 tabs 01/15/24 carvedilol 12.5 mg tablet 12.5 mg PO BID #180 tabs 01/15/24 sacubitril 97 mg-valsartan 103 mg See Rx Instructions .Route 02/17/24 tablet (Entresto) .COMPLEX #180 tabs omeprazole 40 mg capsule,delayed See Rx Instructions .Route 03/14/24 release .COMPLEX #180 caps doxycycline hyclate 100 mg capsule 100 mg PO BID 10 days #20 caps 03/23/24 guaifenesin 600 mg tablet, 600 mg PO BID #60 tabs 03/23/24 extended release 12 hr (Mucinex) amoxicillin 875 mg-potassium 1 tab PO BID 7 days #14 tabs 04/14/24 clavulanate 125 mg tablet Allergies Allergy/AdvReac Type Severity Reaction Status Date / Time dobutamine AdvReac Unknown Hypertensio Verified 03/23/24 08:58 n [facility] Disclaimer: The information contained in this section may have been updated after the patient was seen, as this information can be updated by other users. Medical History Pneumonia Cardiogenic shock On mechanically assisted ventilation Acute respiratory failure with hypoxia Abdominal pain Constipation Deviated nasal septum Hypertrophy of inferior nasal turbinate Sinusitis Mixed restrictive and obstructive lung disease Cardiac pacemaker in situ Pulmonary emphysema Smoking greater than 30 pack years Dyspnea on exertion Lung mass Nodule of right lung Bilateral chronic serous otitis media Right maxillary sinusitis HFrEF (heart failure with reduced ejection fraction) Impacted cerumen of right ear Dizziness Abnormal electrocardiogram [ECG] [EKG] ANNA (obstructive sleep apnea) Hyperlipidemia Depression Anxiety Gastroesophageal reflux disease Insomnia Coronary artery disease History of TIA (transient ischemic attack) Hypertension Diabetes mellitus Epididymitis Palpitations Opiate withdrawal TIA (transient ischemic attack) Surgical History History of removal of testicle History of hernia surgery History of cholecystectomy History of right mastoidectomy History of coronary artery bypass graft Family History Other Diabetes Social History Smoking Status: Current every day smoker tobacco type: cigarettes packs per day: 1 alcohol intake: never substance use type: denies use current occupational status: disabled household members: spouse and children housing: house Other Medical History Have you received the Flu Vaccine for this season: No Have you received the Pneumonia Vaccine: No ROS Obtained: Yes All systems reviewed & no additional complaints except as documented Physical Exam General General appearance: alert and in no apparent distress Head Head exam: atraumatic and normocephalic Eye Eye exam: Present normal appearance, PERRL and EOMI ENT ENT exam: Present normal oropharynx, normal external ear exam and other (No mastoid tenderness. The right TM is unable to visualize secondary to copious purulent drainage from the right ear.) Neck Neck exam: Present normal inspection and full ROM Chest Chest inspection: Present normal inspection and symmetric chest wall rise; Absent tenderness Respiratory Respiratory exam: Present normal lung sounds bilaterally; Absent respiratory distress Cardiovascular Cardiovascular exam: Present regular rate and normal rhythm Abdominal Exam Abdominal exam: Present soft; Absent distention, tenderness or guarding Extremities Exam Extremities exam: Present normal inspection; Absent edema or joint swelling Back Exam Back exam: Present normal inspection; Absent tenderness Neurological Exam Neurological exam: Present alert and oriented X3; Absent motor sensory deficit Psychiatric Psychiatric exam: Present normal affect and normal mood Skin Skin exam: Present warm, dry and normal color Lymphatic Lymphatic Findings: no adenopathy Medical Decision Making Medical Records Medical records reviewed: Yes I reviewed the patient's medical records. Screening: Per USPSTF and CDC recommendations, given the prevalence of disease in our region, it is our hospital?s policy to screen for HIV and viral Hepatitis for all patients aged 18 and over and those with ongoing risk factors. George Inquiry Pt receiving controlled substance: No George was queried for this patient: No Vital Signs: 11/28/24 01:58 04/14/24 02:00 04/14/24 02:21 Temperature 97.5 F L 97.5 F L Temperature Source Oral Oral Pulse Rate 61 83 Pulse Rate [Right Brachial] 83 Respiratory Rate 20 20 Blood Pressure 100/51 L 114/60 Blood Pressure [Right Arm] 114/60 Blood Pressure Mean 65 Blood Pressure Mean [Right Arm] 78 Blood Pressure Source Automatic Cuff Blood Pressure Source [Right Arm] Automatic Cuff Blood Pressure Position Sitting 02 Sat by Pulse Oximetry 94 L 98 Oxygen Delivery Method Room Air Room Air Room Air Lab Data Lab results reviewed: Yes I reviewed the patient's lab results. Orders (Tests/Meds): ED MEDICATIONS Discontinued Medications Generic Name Dose Route Start Last Admin Trade Name Vandana PRN Reason Stop Dose Admin Amoxicillin/Clavulanate Potassium 1 each 04/14/24 02:08 04/14/24 02:12 Amoxicillin/Clavulanate Potassium 875/125mg Tablet PO 04/14/24 02:09 1 each ONCE ONE Administration Ciprofloxacin/Dexamethasone 4 ml 04/14/24 02:07 04/14/24 02:19 Cipro 0.3%-Dex 0.1% Otic Susp 7.5ml OT 04/14/24 02:08 4 ml ONCE ONE Administration Medical Decision Narrative: 64-year-old male with a variety of medical comorbidities and prior mastoiditis in the right ear presents for right ear pain and drainage.. History was obtained via interactive discussion with patient. On arrival, patient is [afebrile, hemodynamically stable, satting appropriately, alert, oriented x4, GCS 15], moving all extremities spontaneously. Full physical exam performed and significant for copious drainage from the right ear obstructing view of the TM. No mastoid tenderness Differential includes but is not limited to otitis externa, otitis media, perforated TM, mastoiditis. Exam is most consistent with perforated otitis media and possibly otitis externa, no evidence of mastoiditis. Patient was given Ciprodex drops and Augmentin and discharged with prescription for same. He was given return precautions. Procedures Risk/Benefits of Procedure(s) Were Explained: Yes Critical Care Critical Care Time Critical Care Time: No
[2024-04-14 01:58] VITALS: BP 114/60; PULSE 83; RESP 20; TEMP 36.4; O2SAT 94; BMI 28.7
[2024-04-14 02:00] VITALS: BP 100/51; PULSE 61; O2SAT 98
--- NOTE | 2024-04-14 02:03 | PC.NURSE ---
Skin pink cool and dry REsp full and easy ANDERS x4 Speech clear and appropriate
[2024-04-14] MEDS: AMOXICILLIN/CLAVULANATE POTASSIUM 875/125MG TABLET 1 EACH PO (02:12)
[2024-04-14] MEDS: CIPRO 0.3%-DEX 0.1% OTIC SUSP 7.5ML 4 ML OT (02:19)
[2024-04-14] MEDS: CIPRO 0.3%-DEX 0.1% OTIC SUSP 7.5ML 7.5 ML OT (02:20)
[2024-04-14 02:21] VITALS: BP 114/60; PULSE 83; RESP 20; TEMP 36.4
== END 2024-04-14 02:25 | disposition home or self-care (01) ==
PROVIDERS: Emergency Provider Emergency Medicine; PCP Internal Medicine
DX: H66.011 Acute suppurative otitis media with spontaneous rupture of ear drum, right ear (principal); H92.01 Otalgia, right ear; R42 Dizziness and giddiness
CPT/HCPCS: 99283

== ENCOUNTER 2024-05-30 13:13 | Outpatient (CLI) | payer MEDICARE, SELFPAY ==
--- NOTE | 2024-05-30 13:14 | CT_ITS ---
FINAL REPORT TECHNIQUE: Thin section axial CT images of the temporal bones were obtained. Coronal reformatted images were also obtained. This study was performed with techniques to keep radiation doses as low as reasonably achievable (ALARA). Individualized dose reduction techniques using automated exposure control or adjustment of mA and/or kV according to the patient's size were employed. CLINICAL HISTORY: pain COMPARISON: CT of the head dated 03/28/2024 FINDINGS: Right temporal bone: The internal auditory canal has an unremarkable appearance. The inner ear structures are unremarkable. There is minimal debris in the right middle ear cavity. The ossicles are intact. There are postoperative changes from a right mastoidectomy. There is minimal soft tissue in the surgical bed, likely scar. No bony mass is identified. Left temporal bone: The internal auditory canal has an unremarkable appearance. The inner ear structures are unremarkable. The external auditory canal has an unremarkable appearance. No abnormality is identified of the middle ear cavity. The ossicles are intact. The mastoid air cells and mastoid antrum have an unremarkable appearance. No bony mass is identified. Note is made of right maxillary sinusitis with bony wall thickening. There is mild bilateral ethmoid sinusitis present as well. There is a small defect of the lamina papyracea on the right side. IMPRESSION: Postoperative changes from a right mastoidectomy, with minimal soft tissue in the surgical bed, likely scar. There is no obvious cholesteatoma, mass, or evidence of acute otitis. Unremarkable left temporal bone. Right maxillary sinusitis with bony wall thickening, as well as mild bilateral ethmoid sinusitis. Reviewed, Interpreted and Dictated by Skyler Suero MD Transcribed by Kelly Vuong Authenticated and [facility]
== END 2024-05-30 23:59 | disposition home or self-care (01) ==
LOC: RAD 13:14
PROVIDERS: PCP Internal Medicine; Visit Provider Nurse Practitioner
DX: H92.01 Otalgia, right ear (principal); R51.9 Headache, unspecified; H92.11 Otorrhea, right ear; Z86.69 Personal history of other diseases of the nervous system and sense organs
CPT/HCPCS: 70480

== ENCOUNTER 2024-08-26 08:46 | Outpatient (CLI) | payer MEDICARE, SELFPAY ==
--- OUTSIDE RECORDS SUMMARY | 2024-08-26 08:49 | XMS_ITS | Data Portability ---
Author Organization [facility] Address [address] [place] [address] Care Team Providers Care Document Control Clerk Name Role Phone FADY WILLIS Primary Care Provider CLAUDY LUQUE Urologist KATARZYNA MULLER Infectious Disease [phone] [facility] [facility] Pain Management Assessment Encounter Date Assessment Date Assessment LastModified by Organization Details LastModified Time 05/24/2019 05/24/2019 59 year-old male with a history of right inguinal hernia, absent right testicle, left epididymitis, left hydrocele, and scrotal hematoma. The right testicle is surgically absent after herniorrhaphy followed by right orchiectomy in 2004. He underwent left hydrocelectomy 03/2019 which was complicated by a scrotal hematoma. They are packing the incision twice daily and there is less necrotic tissue and no longer purulent drainage. The left testicle is still diffusely enlarged and tender. I recommend a scrotal ultrasound. Plan: Pack incision twice daily with half-inch Nu Gauze. Finish Augmentin. Continue Percocet 5 mg as needed. Schedule scrotal ultrasound. Follow-up in 1-2 weeks. [email or web address] Not available 05/24/2019 10:21:36 06/06/2019 06/06/2019 59 year-old male with a history of right inguinal hernia, absent right testicle, left epididymitis, left hydrocele, and scrotal hematoma. The right testicle is surgically absent after herniorrhaphy followed by right orchiectomy in 2004. He underwent left hydrocelectomy 03/2019 which was complicated by a scrotal hematoma, orchitis, and scrotal abscess. He underwent scrotal exploration and debridement 05/29/2019. He subsequently had placement of a wound VAC. The photograph provided showed granulation tissue. He has much less pain. Plan: Arrange wound VAC change through the [facility] wound care nurse. Complete course of Augmentin and doxycycline. Follow-up in one week. [email or web address] Not available 06/06/2019 08:33:16 06/13/2019 06/13/2019 59 year-old male with a history of right inguinal hernia, absent right testicle, left epididymitis, left hydrocele, and scrotal hematoma. The right testicle is surgically absent after herniorrhaphy followed by right orchiectomy in 2004. He underwent left hydrocelectomy 03/2019 which was complicated by a scrotal hematoma, orchitis, and scrotal abscess. He underwent scrotal exploration and debridement 05/29/2019. He subsequently had placement of a wound VAC. The photograph provided showed granulation tissue. He completed antibiotics a couple days ago. He has much less pain. Plan: Schedule scrotal exploration and closure of wound in one week. Continue wound VAC for now. Prescription for Percocet 5 mg. [email or web address] Not available 06/13/2019 08:14:53 06/20/2019 06/20/2019 SURGERY DATE: 06/20/2019 PREOPERATIVE DIAGNOSIS: Scrotal wound. POSTOPERATIVE DIAGNOSIS: Scrotal wound. PROCEDURE: Repair of left scrotal wound. ANESTHESIA: General and local. SPECIMEN: None. FINDINGS: Left hemiscrotum with an open scrotal wound after left hydrocelectomy followed by scrotal hematoma, scrotal abscess, and scrotal drainage with debridement. He has been managed with a wound Vac for a few weeks. The anterior scrotal wound has granulated well, but still has an open section approximately 4 cm in length and 3 cm across. He opts for closure of this scrotal wound. SURGEON: Claudy Luque MD OPERATIVE NOTE: After informed consent, the patient was taken to the operating room in stable condition. General anesthesia was induced without complications. He was in a supine position. The genitalia and groins were prepped and draped in the usual fashion. A time-out was taken to identify the correct patient and procedure. A combination of sharp dissection and Bovie cautery was used to mobilize the anterior scrotal skin around the testicle. The edges of the skin were excised slightly to have a fresh edge circumferentially . Hemostasis was achieved with cautery. The skin was then closed in two layers with 3-0 Vicryl interrupted suture on the inner layer and 3-0 chromic vertical mattress sutures on the outer layer. Antibiotic ointment was placed. A core block with 1% lidocaine was placed. Then 4x4 fluffs and a scrotal support were placed. He was awakened from anesthesia and taken to the recovery room in satisfactory condition. DISPOSITION: The patient is discharged to home in the care of his . He has followup in 1 week. He is provided prescriptions for Percocet and Augmentin. [email or web address] Not available 06/26/2019 07:45:39 06/29/2019 06/29/2019 59 year-old male with a history of right inguinal hernia, absent right testicle, left epididymo-orchiti s, left hydrocele, scrotal hematoma. He underwent right herniorrhaphy followed by right orchiectomy in 2004. He underwent left hydrocelectomy 03/2019 which was complicated by a scrotal hematoma, orchitis, and scrotal abscess. He underwent scrotal exploration and debridement 05/29/2019, he subsequently had a wound VAC, and underwent closure of scrotal wound 06/20/2019.. The scrotal wound is healing well without erythema or drainage. He has continued induration and tenderness of the left testicle which is expected and should gradually improve. The UA is clear. I recommend another course of Augmentin. He is on chronic narcotics and I recommend management of his pain control through the pain clinic. Plan: Prescription for Augmentin. Pain medication management through the pain clinic. Follow-up in one month. [email or web address] Not available 06/29/2019 11:28:03 Plan of Treatment Reminders Order Date Submit Date Provider Last Modified By Organization Details Last Modified Time Details Appointments None recorded. Lab urinalysis , dipstick, auto 2019 020 [email or web address] Not available 0 11:27:31 urinalysis , dipstick, auto 2019 020 [email or web address] Not available 0 08:32:39 urinalysis , dipstick, auto 2019 020 [email or web address] Not available 0 10:21:17 Referral None recorded. Procedures None recorded. Surgeries None recorded. Imaging None recorded. Medication Orders Augmentin 875 mg-125 mg tablet 2019 020 [id number], [address] [place], [id number], 1 11:00:44 Percocet 5 mg-325 mg tablet 2019 020 [facility][id number], [address] [place], [id number], 1 11:02:37 Augmentin 875 mg-125 mg tablet 2019 020 [facility] #[id number], [address] [place], [id number], 1 11:00:44 Percocet 5 mg-325 mg tablet 2019 020 [facility] #[id number], [address], [id number], 1 11:02:37 Patient TargetsNo targets recorded. Patient InstructionsNo instructions recorded. Reason for Referral None Reported. Results Created Date Observation Date Name Description Value Unit Range Abnormal Flag Note LastModifiedBy Organization Detail LastModifiedTime 05/16/2005/16/2019 urina lysis , dipst ick, auto Unknown Analyte Yellow Not Available [facility] [address] [place], [address], 05/16/2019 07:54:25 05/16/2005/16/2019 urina lysis , dipst ick, auto Unknown Analyte Clear Not Available [facility] [address] [place], [address], 05/16/2019 07:54:25 05/16/20 19 05/16/2019 urina lysis , dipst ick, auto Unknown Analyte 1.015 Not Available [facility] [address] [place], [address], 05/16/2019 07:54:25 05/16/2005/16/2019 urina lysis , dipst ick, auto Unknown Analyte 1.003 - 1.035 Not Available [facility] [address] [place], [address], 05/16/2019 07:54:25 05/16/20 19 05/16/2019 urina lysis , dipst ick, auto Unknown Analyte 5.0 Not Available [facility] [address] [place], [address], 05/16/2019 07:54:25 05/16/2005/16/2019 urina lysis , dipst ick, auto Unknown Analyte 5.0 - 8.[address] Not [address] [facility] [address] [place] [address], [address], 05/16/2019 07:54:25 05/16/2005/16/2019 urina lysis , dipst ick, auto Unknown Analyte Negati ve Not Available [facility] [address] [place] [address], [address], 05/16/2019 07:54:25 05/16/2005/16/2019 urina lysis , dipst ick, auto Unknown Analyte Negati ve Not Available [facility] [address] [place] [address], [address], 05/16/2019 07:54:25 05/16/2005/16/2019 urina lysis , dipst ick, auto Unknown Analyte Negati ve Not Available [facility] [address] [place] [address], [address], 05/16/2019 07:54:25 05/16/2005/16/2019 urina lysis , dipst ick, auto Unknown Analyte Negati ve Not Available [facility] [address] [place], [address], 05/16/2019 07:54:25 05/16/2005/16/2019 urina lysis , dipst ick, auto Unknown Analyte Negtiv e Not Available [facility] [address] [place] [address], [address], 05/16/2019 07:54:25 05/16/2005/16/2019 urina lysis , dipst ick, auto Unknown Analyte Negati ve - Trace Not Available [facility] [address] [place] [address], [address], 05/16/2019 07:54:25 05/16/2005/16/2019 urina lysis , dipst ick, auto Unknown Analyte Normal Not Available [facility] [address] [place] [address], [address], 05/16/2019 07:54:25 05/16/2005/16/2019 urina lysis , dipst ick, auto Unknown Analyte Normal Not Available [facility] [address] [place] [address], [address], 05/16/2019 07:54:25 05/16/2005/16/2019 urina lysis , dipst ick, auto Unknown Analyte Negati ve Not Available [facility] [address] [place] [address], [address], 05/16/2019 07:54:25 05/16/2005/16/2019 urina lysis , dipst ick, auto Unknown Analyte Negati ve Not Available [facility] [address] [place] [address], [address], 05/16/2019 07:54:25 05/16/2005/16/2019 urina lysis , dipst ick, auto Unknown Analyte Normal Not Available [facility] [address] [place], [address], 05/16/2019 07:54:25 05/16/20 19 05/16/2019 urina lysis , dipst ick, auto Unknown Analyte Normal - 1mg/dl Not Available [facility] [address] [place] [address], [address], 05/16/2019 07:54:25 05/16/2005/16/2019 urina lysis , dipst ick, auto Unknown Analyte Negati ve Not Available [facility] [address] [place] [address], [address], 05/16/2019 07:54:25 05/16/2005/16/2019 urina lysis , dipst ick, auto Unknown Analyte Negati ve Not Available [facility] [address] [place] [address], [address], 05/16/2019 07:54:25 05/16/2005/16/2019 urina lysis , dipst ick, auto Unknown Analyte Negati ve Not Available [facility] [address] [place] [address], [address], 05/16/2019 07:54:25 05/16/20 19 05/16/2019 urina lysis , dipst ick, auto Unknown Analyte Negati ve Not Available [facility] [address] [place] [address], [address], 05/16/2019 07:54:25 05/16/20 19 05/16/2019 urina lysis , dipst ick, auto Unknown Analyte Clean Catch Not Available [facility] [address] [place], [address], 05/16/2019 07:54:25 05/16/20 19 05/16/2019 urina lysis , dipst ick, auto Unknown Analyte Automa carlos Not Available [facility] [address] [place] [address], [address], 05/16/2019 07:54:25 05/24/1905/24/2019 urina lysis , dipst ick, auto Unknown Analyte Yellow Not Available [facility] [address] [place] [address], [address], 05/24/2019 10:02:15 05/24/19 20 05/24/2019 urina lysis , dipst ick, auto Unknown Analyte Clear Not Available [facility] [address] [place] [address], [address], 05/24/2019 10:02:15 05/24/1905/24/2019 urina lysis , dipst ick, auto Unknown Analyte 1.010 Not Available [facility] [address] [place] [address], [address], 05/24/2019 10:02:15 05/24/1905/24/2019 urina lysis , dipst ick, auto Unknown Analyte 1.003 - 1.035 Not Available [address], [address], 05/24/2019 10:02:15 05/24/19 20 05/24/2019 urina lysis , dipst ick, auto Unknown Analyte 5.0 Not Available [facility] [address], [address], 05/24/2019 10:02:15 05/24/1905/24/2019 urina lysis , dipst ick, auto Unknown Analyte 5.0 - 8.0 Not Available [facility] [address], [address], 05/24/2019 10:02:15 05/24/1905/24/2019 urina lysis , dipst ick, auto Unknown Analyte Negati ve Not Available [facility] [address], [address], 05/24/2019 10:02:15 05/24/19 20 05/24/2019 urina lysis , dipst ick, auto Unknown Analyte Negati ve Not Available [facility] [address] [place] [address], [address], 05/24/2019 10:02:15 05/24/19 20 05/24/2019 urina lysis , dipst ick, auto Unknown Analyte Negati ve Not Available [facility] [address] [place] [address], [address], 05/24/2019 10:02:15 05/24/19 20 05/24/2019 urina lysis , dipst ick, auto Unknown Analyte Negtiv e Not Available [facility] [address], [address], 05/24/2019 10:02:15 05/24/19 20 05/24/2019 urina lysis , dipst ick, auto Unknown Analyte Negati ve - Trace Not Available [facility] [address], [address], 05/24/2019 10:02:15 05/24/19 20 05/24/2019 urina lysis , dipst ick, auto Unknown Analyte Normal Not Available [facility] [address] [place] [address], [address], 05/24/2019 10:02:15 05/24/19 20 05/24/2019 urina lysis , dipst ick, auto Unknown Analyte Normal Not Available [facility] [address] [place] [address], [address], 05/24/2019 10:02:15 05/24/19 20 05/24/2019 urina lysis , dipst ick, auto Unknown Analyte Negati ve Not Available [facility] [address], [address], 05/24/2019 10:02:15 05/24/19 20 05/24/2019 urina lysis , dipst ick, auto Unknown Analyte Negati ve Not Available [facility] [address] [place] [address], [address], 05/24/2019 10:02:15 05/24/19 20 05/24/2019 urina lysis , dipst ick, auto Unknown Analyte Normal Not Available [facility] [address] [place] [address], [address], 05/24/2019 10:02:15 05/24/19 20 05/24/2019 urina lysis , dipst ick, auto Unknown Analyte Normal - 1mg/dl Not Available [facility] [address], [address], 05/24/2019 10:02:15 05/24/19 20 05/24/2019 urina lysis , dipst ick, auto Unknown Analyte Negati ve Not Available [facility] [address], [address], 05/24/2019 10:02:15 05/24/19 20 05/24/2019 urina lysis , dipst ick, auto Unknown Analyte Negati ve Not Available [facility] [address], [address], 05/24/2019 10:02:15 05/24/19 20 05/24/2019 urina lysis , dipst ick, auto Unknown Analyte Negati ve Not Available [facility] [address], [address], 05/24/2019 10:02:15 05/24/19 20 05/24/2019 urina lysis , dipst ick, auto Unknown Analyte Negati ve Not Available [facility] [address], [address], 05/24/2019 10:02:15 05/24/19 20 05/24/2019 urina lysis , dipst ick, auto Unknown Analyte Clean Catch Not Available [facility] [address] [place] [address], [address], 05/24/2019 10:02:15 05/24/19 20 05/24/2019 urina lysis , dipst ick, auto Unknown Analyte Visual Not Available [facility] [address] [place] [address], [address], 05/24/2019 10:02:15 06/06/19 20 06/06/2019 urina lysis , dipst ick, auto Unknown Analyte Yellow Not Available [facility] [address], [address], 06/06/2019 07:36:23 06/06/1906/06/2019 urina lysis , dipst ick, auto Unknown Analyte Clear Not Available [address], [address], 06/06/2019 07:36:23 06/06/19 20 06/06/2019 urina lysis , dipst ick, auto Unknown Analyte 1.005 Not Available [address], [address], 06/06/2019 07:36:23 06/06/19 20 06/06/2019 urina lysis , dipst ick, auto Unknown Analyte 6.0 Not Available [facility] [address], [address], 06/06/2019 07:36:23 06/06/19 20 06/06/2019 urina lysis , dipst ick, auto Unknown Analyte Negati ve Not Available [address], [address], 06/06/2019 07:36:23 06/06/19 20 06/06/2019 urina lysis , dipst ick, auto Unknown Analyte Negati ve Not Available [address], [address], 06/06/2019 07:36:23 06/06/19 20 06/06/2019 urina lysis , dipst ick, auto Unknown Analyte Negtiv e Not Available [facility] [address] [place], [address], 06/06/2019 07:36:23 06/06/1906/06/2019 urina lysis , dipst ick, auto Unknown Analyte 250 mg/dl Not Available [facility] [address] [place], [address], 06/06/2019 07:36:23 06/06/1906/06/2019 urina lysis , dipst ick, auto Unknown Analyte Negati ve Not Available [facility] [address] [place] [address], [address], 06/06/2019 07:36:23 06/06/19 20 06/06/2019 urina lysis , dipst ick, auto Unknown Analyte Normal Not Available [facility] [address] [place], [address], 06/06/2019 07:36:23 06/06/1906/06/2019 urina lysis , dipst ick, auto Unknown Analyte Negati ve Not Available [facility] [address] [place] [address], [address], 06/06/2019 07:36:23 06/06/1906/06/2019 urina lysis , dipst ick, auto Unknown Analyte Negati ve Not Available [facility] [address] [place] [address], [address], 06/06/2019 07:36:23 06/06/1906/06/2019 urina lysis , dipst ick, auto Unknown Analyte Clean Catch Not Available [facility] [address] [place] [address], [address], 06/06/2019 07:36:23 06/06/19 20 06/06/2019 urina lysis , dipst ick, auto Unknown Analyte Automa carlos Not Available [facility] [address], [address], 06/06/2019 07:36:23 06/29/19 20 06/29/2019 urina lysis , dipst ick, auto Unknown Analyte Yellow Not Available [facility] [address], [address], 06/29/2019 10:49:43 06/29/19 20 06/29/2019 urina lysis , dipst ick, auto Unknown Analyte Clear Not Available [facility] [address], [address], 06/29/2019 10:49:43 06/29/19 20 06/29/2019 urina lysis , dipst ick, auto Unknown Analyte 1.015 Not Available [facility] [address], [address], 06/29/2019 10:49:43 06/29/19 20 06/29/2019 urina lysis , dipst ick, auto Unknown Analyte 1.003 - 1.035 Not Available [address], [address], 06/29/2019 10:49:43 06/29/19 20 06/29/2019 urina lysis , dipst ick, auto Unknown Analyte 5.0 Not Available [facility] [address], [address], 06/29/2019 10:49:43 06/29/19 20 06/29/2019 urina lysis , dipst ick, auto Unknown Analyte 5.0 - 8.0 Not Available [address], [address], 06/29/2019 10:49:43 06/29/19 20 06/29/2019 urina lysis , dipst ick, auto Unknown Analyte Negati ve Not Available [facility] [address], [address], 06/29/2019 10:49:43 06/29/19 20 06/29/2019 urina lysis , dipst ick, auto Unknown Analyte Negati ve Not Available [facility] [address], [address], 06/29/2019 10:49:43 06/29/19 20 06/29/2019 urina lysis , dipst ick, auto Unknown Analyte Negati ve Not Available [facility] [address], [address], 06/29/2019 10:49:43 06/29/19 20 06/29/2019 urina lysis , dipst ick, auto Unknown Analyte Negati ve Not Available [facility] [address], [address], 06/29/2019 10:49:43 06/29/19 20 06/29/2019 urina lysis , dipst ick, auto Unknown Analyte Negtiv e Not Available [address], [address], 06/29/2019 10:49:43 06/29/19 20 06/29/2019 urina lysis , dipst ick, auto Unknown Analyte Negati ve - Trace Not Available [facility] [address], [address], 06/29/2019 10:49:43 06/29/19 20 06/29/2019 urina lysis , dipst ick, auto Unknown Analyte Normal Not Available [facility] [address], [address], 06/29/2019 10:49:43 06/29/19 20 06/29/2019 urina lysis , dipst ick, auto Unknown Analyte Normal Not Available [facility] [address] [place], [address], 06/29/2019 10:49:43 06/29/19 20 06/29/2019 urina lysis , dipst ick, auto Unknown Analyte Negati ve Not Available [facility] [address] [place] [address], [address], 06/29/2019 10:49:43 06/29/19 20 06/29/2019 urina lysis , dipst ick, auto Unknown Analyte Negati ve Not Available [facility] [address], [address], 06/29/2019 10:49:43 06/29/19 20 06/29/2019 urina lysis , dipst ick, auto Unknown Analyte Normal Not Available [facility] [address], [address], 06/29/2019 10:49:43 06/29/19 20 06/29/2019 urina lysis , dipst ick, auto Unknown Analyte Normal - 1mg/dl Not Available [facility] [address], [address], 06/29/2019 10:49:43 06/29/19 20 06/29/2019 urina lysis , dipst ick, auto Unknown Analyte Negati ve Not Available [facility] [address], [address], 06/29/2019 10:49:43 06/29/19 20 06/29/2019 urina lysis , dipst ick, auto Unknown Analyte Negati ve Not Available [facility] [address], [address], 06/29/2019 10:49:43 06/29/19 20 06/29/2019 urina lysis , dipst ick, auto Unknown Analyte Negati ve Not Available [facility] [address] [place], [address], 06/29/2019 10:49:43 06/29/19 20 06/29/2019 urina lysis , dipst ick, auto Unknown Analyte Negati ve Not Available [facility] [address] [place], [address], 06/29/2019 10:49:43 06/29/19 20 06/29/2019 urina lysis , dipst ick, auto Unknown Analyte Clean Catch Not Available [facility] [address] [place], [address], 06/29/2019 10:49:43 06/29/19 20 06/29/2019 urina lysis , dipst ick, auto Unknown Analyte Automa carlos Not Available [facility] [address] [place], [address], 06/29/2019 10:49:43 Result Notes None recorded. Problems Name Problem SNOMED Code Status Onset Date Resolution Date Notes Provider Name and Address Organization Details Recorded Time Mixed conductiv e AND sensorine ural hearing loss 41150293 Active 2015 From Automated Load;Prov ider: Dorian Hurd III tatus: Active Not Available [facility] 6 09:39:57 Otitis externa 8331259 Active 2015 Provider: Dorian Hurd III tatus: Active Not Available [facility] 6 09:39:57 Otitis externa of right ear 16084586834 [id number] Active 2015 From Automated Load;Prov ider: Dorian Hurd III tatus: Active Not Available [facility] 6 09:39:57 Otorrhea 23942202 Active 2015 From Automated Load;Prov ider: Dorian Hurd III tatus: Active Not Available [facility] 6 09:39:57 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 Procedures Surgical History Date Name Laterality Status Provider Name and Address Organization Details Recorded Time 06/20/19 20 repair of scrotum completed CLAUDY LUQUE MD [address] [place] [address], [address], [facility] 06/20/2019 16:56:31 05/29/19 20 Scrotal surgery completed CLAUDY LUQUE MD [address] [place] [address], [address], [facility] 06/20/2019 16:57:39 Heart Surgery completed Fani Huffman [facility] 02/08/2019 16:35:08 Hernia Repair completed CLAUDY LUQUE MD [address] [place] [address], [address], [facility] 04/04/2019 14:53:49 Orchiectomy completed CLAUDY LUQUE MD [address] [place] [address], [address], [facility] 04/04/2019 14:54:02 Hydrocele Repair completed CLAUDY LUQUE MD [address] [place] [address], [phone], [facility] 04/04/2019 14:54:16 Mastoidectomy completed Janet Stoll [facility] 12/14/2020 11:10:11 Imaging Results None recorded. Procedure Notes None recorded. Medical Equipment None Reported. Allergies Allergen ID Allergen Name Allergen Category Reaction Reaction Severity Criticality Documentation Date Start Date Code Code System Note Provider Name and Address Organization Details Recorded Time 113480 acetamino phen / oxycodone medicatio n nausea Not available Not available 02/08/2019 92650 3 RxNorm He can take 5 mg dose CLAUDY LUQUE MD [address] [place] [address] [place], [address], [facility] 9 15:06:12 [id number] Bactrim medicatio n dizziness respirato ry distress Not available Not available Not available 02/11/2019 16635 9 RxNorm CLAUDY LUQUE MD [facility] [place], [address], [facility] 9 07:45:25 Medications Name Sig Start Date Stop Date Status Note LastModified by Organization Details LastModified Time cyclobenz aprine 10 mg tablet 12/14 completed Not Available Not Available Not Available furosemid e 40 mg tablet 12/14 completed Not Available Not Available Not Available Augmentin 875 mg-125 mg tablet Take 1 tablet every 12 hours by oral route for 10 days. 12/14 completed Not Available Not Available Not Available carvedilo l 25 mg tablet TAKE 1 TABLET BY MOUTH TWICE DAILY WITH MEALS active Not Available Not Available No t Available clonidine HCl 0.1 mg tablet TAKE 1 TABLET BY MOUTH THREE TIMES DAILY NEEDED FOR HIGH BLOOD PRESSURE SYSTOLIC BLOOD PRESSURE OVER 180 active Not Available Not Available No t Available doxycycli ne hyclate 100 mg capsule 12/14 completed Not Available Not Available Not Available desiprami ne 25 mg tablet TAKE 1 TABLET BY MOUTH ONCE DAILY AT NIGHT active Not Available Not Available No t Available trazodone 50 mg tablet TAKE 1 TABLET BY MOUTH ONCE DAILY AT NIGHT active Not Available Not Available No t Available lisinopri l 20 mg-hydroc hlorothia zide 12.5 mg tablet 02/08 completed Not Available Not Available Not Available azithromy xavi 250 mg tablet 02/08 completed Not Available Not Available Not Available nifedipin e ER 90 mg tablet,ex tended release TAKE 1 TABLET BY MOUTH ONCE DAILY 12/14 completed Not Available Not Available Not Available amiodaron e 200 mg tablet 06/13 completed Not Available Not Available Not Available hydrocodo ne 5 mg-acetam inophen 325 mg tablet 02/08 completed Not Available Not Available Not Available lisinopri l 20 mg tablet Bedtime 02/08 completed Duration : 30 days;Abhinav quency: hs;Medic ation Descript ion: lisinopr il; Dosage:1 ; Route:or al; refills: 5; Quantity :30 tablet Not Available Not Available Not Available ondansetr on HCl 4 mg tablet Take 1 tablet every 8 hours by oral route as needed for 7 days. 12/14 completed Not Available Not Available Not Available isosorbid e mononitra te ER 30 mg tablet,ex tended release 24 hr 02/08 completed Not Available Not Available Not Available lovastati n 40 mg tablet TAKE 1 TABLET BY MOUTH ONCE DAILY AT BEDTIME 12/14 completed Not Available Not Available Not Available potassium chloride ER 10 mEq tablet,ex tended release 12/14 completed Not Available Not Available Not Available clopidogr el 75 mg tablet 12/14 completed Not Available Not Available Not Available ciproflox acin 500 mg tablet Take 1 tablet every 12 hours by oral route for 14 days. 03/01 completed Not Available Not Available Not Available sulfameth oxazole 800 mg-trimet hoprim 160 mg tablet Take 1 tablet every 12 hours by oral route for 14 days. 12/14 completed Not Available Not Available Not Available hydrocodo ne 10 mg-acetam inophen 325 mg tablet 12/14 completed Not Available Not Available Not Available omeprazol e 40 mg capsule,d elayed release TAKE 1 CAPSULE BY MOUTH ONCE DAILY 12/14 completed Not Available Not Available Not Available Isosorbid e Mononitra te CR 30 mg tablet,ex tended release Every morning 12/14 completed Duration : 10 days;Abhinav quency: qam;Medi cation Descript ion: isosorbi de mononitr ate; Route:or al; refills: 0; Quantity :30 tablet, extended release Not Available Not Available Not Available tramadol 50 mg tablet 05/16 completed Not Available Not Available Not Available glimepiri de 2 mg tablet 12/14 completed Not Available Not Available Not Available glimepiri de 1 mg tablet TAKE 1 TABLET BY MOUTH ONCE DAILY IN THE MORNING BEFORE BREAKFAS T 12/14 completed Not Available Not Available Not Available oxycodone -acetamin ophen 5 mg-325 mg tablet Take 1 tablet every 4-6 hours by oral route as needed for 3 days. 12/14 completed Not Available Not Available Not Available oxycodone -acetamin ophen 10 mg-325 mg tablet TAKE 1 TABLET BY MOUTH THREE TIMES DAILY NEEDED active Not Available Not Available No t Available doxycycli ne monohydra te 100 mg capsule Take 1 capsule twice a day by oral route for 14 days. 05/16 completed Not Available Not Available Not Available hydrocodo ne 7.5 mg-acetam inophen 325 mg tablet 02/08 completed Not Available Not Available Not Available buspirone 10 mg tablet TAKE 1 TABLET BY MOUTH TWICE DAILY 12/14 completed Not Available Not Available Not Available morphine ER 15 mg tablet,ex tended release 12/14 completed Not Available Not Available Not Available aspirin 81 mg tablet Daily active Duration : 30 days;Abhinav quency: daily;Me dication Descript ion: aspirin; Dosage:1 ; Route:or al; refills: 0; Quantity :30 tablet Not Available Not Available Not Available diclofena c sodium 50 mg tablet,de layed release 12/14 completed Not Available Not Available Not Available lisinopri l 10 mg-hydroc hlorothia zide 12.5 mg tablet TAKE 1 TABLET BY MOUTH ONCE DAILY IN THE MORNING 12/14 completed Not Available Not Available Not Available lovastati n 20 mg tablet 02/08 completed Not Available Not Available Not Available methylpre dnisolone 4 mg tablets in a dose pack 02/08 completed Not Available Not Available Not Available fluticaso ne propionat e 50 mcg/actua tion nasal spray,[facility] 12/14 completed Not Available Not Available Not Available metformin ER 500 mg tablet,ex tended release 24 hr 12/14 completed Not Available Not Available Not Available ezetimibe 10 mg tablet TAKE 1 TABLET BY MOUTH ONCE DAILY 12/14 completed Not Available Not Available Not Available Ciprodex 0.3 %-0.1 % ear drops,[facility] 02/08 completed Not Available Not Available Not Available rosuvasta tin 20 mg tablet TAKE 1 TABLET BY MOUTH EVERY DAY AT BEDTIME. STOP LOVASTAT IN AND GET LABS IN 6 TO 8 WEEKS. 12/14 completed Not Available Not Available Not Available Crestor 10 mg tablet Daily 12/14 completed Frequenc y: daily;Me dication Descript ion: rosuvast atin; Dosage:1 ; Route:or al; refills: 5; Quantity :30 tablet Not Available Not Available Not Available duloxetin e 60 mg capsule,d elayed release TAKE 1 CAPSULE BY MOUTH ONCE DAILY 12/14 completed Not Available Not Available Not Available carvedilo l 02/08 completed Medicati on Descript ion: carvedil ol; Route:or al; refills: 0 Not Available Not Available Not Available nifedipin e 02/08 completed Duration : 10 days;Med ication Descript ion: nifedipi ne; refills: 0; Quantity :30 Not Available Not Available Not Available glimepiri de 02/08 completed Medicati on Descript ion: glimepir ignacio; Route:or al; refills: 0 Not Available Not Available Not Available omeprazol e 20 mg-sodium bicarbona te 1.1 gram capsule 02/08 completed Medicati on Descript ion: omeprazo le-sodiu m bicarbon ate; Route:or al; refills: 0 Not Available Not Available Not Available ProAir HFA 90 mcg/actua tion aerosol inhaler 12/14 completed Not Available Not Available Not Available Janumet 50 mg-500 mg tablet 02/08 completed Medicati on Descript ion: metformi n-sitagl iptin; Route:or al; refills: 0 Not Available Not Available Not Available Janumet 50 mg-1,000 mg tablet TAKE 1 TABLET BY MOUTH TWICE DAILY 12/14 completed Not Available Not Available Not Available Patanase 0.6 % nasal spray 02/08 completed Medicati on Descript ion: olopatad ine nasal; Route:na mat; refills: 0 Not Available Not Available Not Available Suprep Bowel Prep Kit 17.5 gram-3.13 gram-1.6 gram oral solution TAKE DIRECTED DO NOT EAT THE DAY BEFORE YOUR PROCEDUR E. IF YOU DIDN T RECEIVE INSTRUCT IONS CALL [phone] 12/14 completed Not Available Not Available Not Available Tradjenta 5 mg tablet 12/14 completed Medicati on Descript ion: linaglip tin; Route:or al; refills: 0 Not Available Not Available Not Available Invokana 100 mg tablet 12/14 completed Medicati on Descript ion: canaglif lozin; Route:or al; refills: 0 Not Available Not Available Not Available Farxiga 10 mg tablet TAKE 1 TABLET BY MOUTH ONCE DAILY IN THE MORNING 12/14 completed Not Available Not Available Not Available Farxiga 5 mg tablet 02/08 completed Not Available Not Available Not Available Jardiance 25 mg tablet TAKE 1 TABLET BY MOUTH ONCE DAILY 12/14 completed Not Available Not Available Not Available OxyContin 10 mg tablet,cr ush resistant ,extended release 12/14 completed Not Available Not Available Not Available Ozempic 0.25 mg or 0.5 mg (2 mg/1.5 mL) subcutane ous pen injector 12/14 completed Not Available Not Available Not Available Vitals Date Recorded Body height Body mass index (BMI) Body weight Heart rate Provider Name and Address Organization Details Last Updated DateTime 05/24/2019 177.8 cm 33.9 kg/m2 036717.8 g 86 /min [facility] 05/24/2019 10:02:36 Date Recorded Body height Body mass index (BMI) Body weight Provider Name and Address Organization Details Last Updated DateTime 06/06/2019 177.8 cm 33.9 kg/m2 961811.8 g Sarah Mora [facility] 06/06/2019 07:36:09 Date Recorded Body height Body mass index (BMI) Body weight Heart rate Provider Name and Address Organization Details Last Updated DateTime 06/13/2019 177.8 cm 33.9 kg/m2 898889.8 g 86 /min [facility] 06/13/2019 07:50:01 Date Recorded Body height Body mass index (BMI) Body weight Provider Name and Address Organization Details Last Updated DateTime 06/29/2019 177.8 cm 33.9 kg/m2 115420.8 g [facility] 06/29/2019 10:49:27 Date Recorded Body weight Body temperature Body mass index (BMI) Body height Heart rate Systolic blood pressure Diastolic blood pressure Provider Name and Address Organization Details Last Updated DateTime 1 53756.3 2 g 97.7 [degF] 31.6 kg/m2 177.8 cm 75 /min 131 mm[Hg] 69 mm[Hg] Janet Stoll [facility] 1 11:09:26 Social History Question Answer Notes LastModified by Organizat ion Details LastModified Time Tobacco Smoking Status Current Every Day Smoker Janet Stoll [facility] 12/14/2020 11:04:32 What Is Your Level Of Alcohol Consumption? None Information not available 02/08/2019 Marital Status Informatio n not available 02/08/2019 What Was The Date Of Your Most Recent Tobacco Screening? 12/14/2020 Information not available 12/14/2020 How Much Tobacco Do You Smoke? 0.5 PPD Information not available 12/14/2020 Has Tobacco Cessation Counseling Been Provided? Yes Information not available 12/14/2020 On What Date Was Tobacco Cessation Counseling Provided? 12/14/2020 Information not available 12/14/2020 How Many Years Have You Smoked Tobacco? 40 Information not available 12/14/2020 Do You Or Have You Ever Used Any Other Forms Of Tobacco Or Nicotine? No Information not available 12/14/2020 Sex: Unknown Functional Status None recorded. Mental Status None recorded. Family History Relationship Description Onset Age of this Age Resolved Age Notes LastModified by Organization Details LastModified Time Unspecified Relation Diabetes mellitus hbasham Not available 2018 16:34:35 Unspecified Relation Hypertensive disorder hbasham Not available 2018 16:34:41 Medical History Condition Response Diabetes Y Coronary Artery Disease Y Arthritis Y High Cholesterol Y Sleep Disorder Y Heart Disease Y Stroke Y Hypertension Y Pneumonia Y Past Encounters Encounter ID Performer Location Encounter Start Date Encounter Closed Date Diagnosis/Indication Diagnosis SNOMED-CT Code Diagnosis ICD10 Code Diagnosis Note [id number] CLAUDY LUQUE MD [facility]OLOGY [facility] [address] [place] [address] 02/08/2019 15:22:29 02/09/2019 07:11:35 Epididymitis 27058349 N45.1 Hydrocele 97280002 N43.3 [id number] CLAUDY LUQUE MD [facility]OLOGY [facility] [address] [place] [address] 03/01/2019 07:35:36 03/01/2019 08:32:45 Epididymitis 13064994 N45.1 Hydrocele 77972707 N43.3 [id number] CLAUDY LUQUE MD SURGERY SCHEDULE [address] [place] [address] 1 04/04/2019 11:38:23 04/04/2019 11:39:05 Hydrocele of testis 89489726 N43.3 [id number] CLAUDY LUQUE MD [facility]OLOGY [facility] [address] [place] [address] 1 04/22/2019 07:42:36 04/22/2019 08:20:59 Epididymitis 78145887 N45.1 Hydrocele 52824836 N43.3 Hematoma of scrotum 8996 6002 M79.81 [id number] CLAUDY LUQUE MD UROLOGY [facility] [address] [place] [address] 1 05/16/2019 07:33:42 05/16/2019 08:55:46 Hydrocele 13713019 N43.3 Hematoma of scrotum 8996 6002 M79.81 Orchitis a nd epididymitis 796612920 N45.3 [id number] CLAUDY LUQUE MD UROLOGY [facility] [address] [place] [address] 1 05/24/2019 09:09:43 05/24/2019 10:36:10 Orchitis and epididymitis 206052714 N45.3 Hydrocele 16889083 N43.3 Hematoma of scrotum 8996 6002 M79.81 [id number] CLAUDY LUQUE MD UROLOGY [facility] [address] [place] [address] 1 06/06/2019 07:34:58 06/06/2019 08:50:46 Orchitis and epididymitis 378869784 N45.3 Abscess of scrotum 11515 006 N49.2 [id number] CLAUDY LUQUE MD UROLOGY [facility] [address] [place] [address] 1 06/13/2019 07:45:46 06/13/2019 08:18:58 Orchitis and epididymitis 743511886 N45.3 Abscess of scrotum 89842 006 N49.2 [id number] CLAUDY LUQUE MD SURGERY SCHEDULE [address] [place] [address] 1 06/20/2019 13:07:55 06/20/2019 13:09:42 Disorder of scrotum 48558322 N50.9 Orchitis a nd epididymitis 524643522 N45.3 [id number] CLAUDY LUQUE MD UROLOGY [address] [address] [place] [address] 06/29/2019 10:43:58 06/29/2019 12:20:35 Orchitis and epididymitis 476326933 N45.3 Abscess of scrotum 39016 006 N49.2 Health Concerns Section Related Observation LastModified by Organization Detai ls LastModified Time None Recorded Concern Status LastModified by Organization Details LastModified Time None Recorded Advance Directives Directive None Recorded Payers Encounter Date Sequence Insurance Name Policy Number Policy Burkett Covered Member ID Burkett Member ID Guarantor Name 05/24/2019 1 [place] Cristobal Vargas [id number] Cristobal Vargas 06/06/2019 1 [place] Cristobal Vargas [id number] Cristobal Vargas 06/13/2019 1 [place] Cristobal Vargas [id number] 7 Cristobal Vargas 06/20/2019 1 [place] Cristobal Vargas [id number] 7 Cristobal Vargas 06/29/2019 1 [place] Cristobal Vargas [id number] 7 Cristobal Vargas Notes Date Note Type Note Provider Name and Address Organization Details Recorded Time 05/24/2019 text/html Diagnoses: Right inguinal hernia, absent right testicle, left hydrocele, left epididymitis, scrotal hematoma 59 year-old white male who came here with his Angelic. He underwent a right inguinal herniorrhaphy around 2004 with complications and subsequently underwent right orchiectomy. He underwent CABG at 11/2018. Since then he had swelling and pain in his left testicle. He said he had an ultrasound at which showed a hydrocele. He said he was referred to urology but the appointment was not timely. He denied any voiding symptoms such as frequency, urgency, dysuria, or decreased flow. He saw me and was prescribed Bactrim DS 02/08/2019, he had dizziness and shortness of breath after a few doses and was switched to Cipro 14 days. He underwent left hydrocelectomy 04/04/2019. This was complicated by scrotal hematoma and which opened spontaneously. They started wound packing 04/22/2019 and he was treated with Augmentin for epididymoorchitis. 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 HPI: The patient is here with his [facility] for follow-up of the left scrotal abscess. He has 3 days of Augmentin left. He still has Percocet. She or the home health nurse have been packing the incision 2 or 3 times daily with half-inch Nu Gauze. The testicle is still very sore and swollen. He denies voiding trouble. He denies fever. CLAUDY LUQUE MD [address] [place] [address], [phone], [facility] 05/24/2019 10:21:51 06/06/2019 text/html Diagnoses: Right inguinal hernia, absent right testicle, left hydrocele, left epididymitis, scrotal hematoma 59 year-old white male who came here with his [employer]. He underwent a right inguinal herniorrhaphy around 2004 with complications and subsequently underwent right orchiectomy. He underwent CABG at 11/2018. Since then he had swelling and pain in his left testicle. He said he had an ultrasound at which showed a hydrocele. He said he was referred to urology but the appointment was not timely. He denied any voiding symptoms such as frequency, urgency, dysuria, or decreased flow. He saw me and was prescribed Bactrim DS 02/08/2019, he had dizziness and shortness of breath after a few doses and was switched to Cipro 14 days. He underwent left hydrocelectomy 04/04/2019. This was complicated by scrotal hematoma and which opened spontaneously. They started wound packing 04/22/2019 and he was treated with Augmentin for epididymo-orchitis. He was admitted to [facility] and underwent left scrotal exploration and debridement 05/29/2019. He subsequently had placement of a wound VAC. 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 HPI: The patient is here with his [facility] for hospital follow-up. The home health nurse changed the wound VAC on Thursday and Thursday. The showed many a photograph of the scrotum without the wound VAC which showed some granulation tissue. The pain is much improved. He is currently on Augmentin and doxycycline under the care of Dr. Muller. He had some aching and flulike symptoms last night but feels better today. He denies voiding trouble. CLAUDY LUQUE MD [facility] [place], [address], [facility] 06/06/2019 08:34:31 06/13/2019 text/html Diagnoses: Right inguinal hernia, absent right testicle, left hydrocele, left epididymitis, scrotal hematoma 59 year-old white male who came here with his [employer]. He underwent a right inguinal herniorrhaphy around 2004 with complications and subsequently underwent right orchiectomy. He underwent CABG at 11/2018. Since then he had swelling and pain in his left testicle. He said he had an ultrasound at which showed a hydrocele. He said he was referred to urology but the appointment was not timely. He denied any voiding symptoms such as frequency, urgency, dysuria, or decreased flow. He saw me and was prescribed Bactrim DS 02/08/2019, he had dizziness and shortness of breath after a few doses and was switched to Cipro 14 days. He underwent left hydrocelectomy 04/04/2019. This was complicated by scrotal hematoma and which opened spontaneously. They started wound packing 04/22/2019 and he was treated with Augmentin for epididymo-orchitis. He was admitted to [facility] and underwent left scrotal exploration and debridement 05/29/2019. He subsequently had placement of a wound VAC. 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 HPI: The patient is here with his [employer] for follow-up of the scrotal wound. The home health nurse changed the wound VAC on Thursday. He saw Dr. Muller last week. He completed Augmentin and doxycycline on Thursday. The pain is much improved but not completely resolved. The swelling is much improved. A photograph shows healthy granulation tissue. He denies voiding trouble. CLAUDY LUQUE MD [facility] [place], [phone], [facility] 06/13/2019 08:15:57 06/29/2019 text/html Diagnoses: Right inguinal hernia, absent right testicle, left hydrocele, left epididymitis, scrotal hematoma 59 year-old white male who comes here with his [employer]. He underwent a right inguinal herniorrhaphy around 2004 with complications and subsequently underwent right orchiectomy. He underwent CABG at 11/2018. Since then he had swelling and pain in his left testicle. He said he had an ultrasound at which showed a hydrocele. He said he was referred to urology but the appointment was not timely. He denied any voiding symptoms such as frequency, urgency, dysuria, or decreased flow. He saw me and was prescribed Bactrim DS 02/08/2019, he had dizziness and shortness of breath after a few doses and was switched to Cipro 14 days. He underwent left hydrocelectomy 04/04/2019. This was complicated by scrotal hematoma and which opened spontaneously. They started wound packing 04/22/2019 and he was treated with Augmentin for epididymo-orchitis. He was admitted to [facility] and underwent left scrotal exploration and debridement 05/29/2019. He subsequently had placement of a wound VAC. He underwent closure of the scrotal wound 06/20/2019. 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 HPI: The patient is here with his [employer] for follow-up after closure of the scrotal wound last week. He has been taking Augmentin. He is on chronic narcotics. He went to the emergency room last night for scrotal pain. He denies voiding trouble. CLAUDY LUQUE MD [facility] [place], [phone], [facility] 06/29/2019 11:32:37
[2024-08-26 09:54] LABS: Chloride 94 mmol/L (98-107)
[2024-08-26 09:55] LABS: Albumin Level 4.1 g/dl (3.5-5.0); Potassium 4.9 mmoL/L (3.5-5.1); Sodium 136 mmol/L (136-145)
[2024-08-26 09:57] LABS: Albumin/Globulin Ratio 1.3 (1.1-1.8); Anion Gap 15.9 mEq/L (5-15); Bilirubin,Unconjugated 0.4 mg/dL (0.0-1.1); Blood Urea Nitrogen 40 mg/dl (9-20); Carbon Dioxide 31 mmol/L (22.0-30.0); Estimated Glomerular Filt Rate 41 ml/min (>60); GFR (African American) 50 ML/MIN (>60); Globulin 3.2 g/dL (1.3-3.2); Total Protein,Serum 7.3 g/dl (6.3-8.2)
[2024-08-26 09:58] LABS: Alanine Aminotransferase 24 U/L (12-78); Alkaline Phosphatase 163 U/L (38-126); Aspartate Amino Transferase 28 U/L (17-59); Bilirubin,Direct 0.2 mg/dl (0.0-0.4); Bilirubin,Indirect 0.3 mg/dL (0.0-0.9); Bilirubin,Total 0.5 mg/dl (0.2-1.3); Calcium 9.9 mg/dl (8.4-10.2); Chol/HDL Ratio 3.7 (1-3.5); Cholesterol 165 mg/dl (140-200); HDL Cholesterol 45 mg/dl (40-60); Triglycerides 182 mg/dl (30-150); VLDL Cholesterol 36 mg/dL (0-40)
[2024-08-26 10:09] LABS: Direct LDL Cholesterol 93.58 mg/dL (100-129)
[2024-08-26 10:17] LABS: Glucose 439 mg/dl (74-100)
== END 2024-08-26 23:59 | disposition home or self-care (01) ==
LOC: LAB 08:48
PROVIDERS: PCP Family Medicine; Visit Provider Nurse Practitioner
DX: R73.9 Hyperglycemia, unspecified (principal); I25.10 Atherosclerotic heart disease of native coronary artery without angina pectoris; I10 Essential (primary) hypertension; E78.5 Hyperlipidemia, unspecified
CPT/HCPCS: 36415; 80053; 80061; 80076

== ENCOUNTER 2024-10-20 20:43 | Emergency (ER) | payer MEDICARE, SELFPAY ==
[2024-10-20 20:47] VITALS: BP 145/76; PULSE 80; RESP 16; TEMP 37.1; O2SAT 95; BMI 31.5
--- OUTSIDE RECORDS SUMMARY | 2024-10-20 20:58 | XMS_ITS | Data Portability ---
Author Organization [facility] Address [address] [facility] [address] [place] [address] Care Team Providers Care Industrial Management Teacher Name Role Phone FADY WILLIS Primary Care Provider CLAUDY LUQUE Urologist KATARZYNA MULLER Infectious Disease CHRISTEL SEXTON Pain Management Assessment Encounter Date [...] Plan: Arrange wound VAC change through the [facility] wound care nurse. Complete course of Augmentin [...] Augmentin 875 mg-125 mg tablet 2019 020 [facility] #[id number], [address] [place], [id number], 1 11:00:44 Percocet 5 mg-325 mg tablet 2019 020 [facility] #[id number], [address] [place], [id number], 1 11:02:37 Augmentin 875 mg-125 mg tablet 2019 020 [facility] #[id number], [address] [place], [id number], 1 11:00:44 Percocet 5 mg-325 mg tablet 2019 020 [facility] #[id number], [address], [id number], 1 11:02:37 Patient TargetsNo targets recorded. Patient InstructionsNo instructions recorded. Reason for Referral None Reported. Results Created Date Observation Date Name Description Value Unit Range Abnormal Flag Note LastModifiedBy Organization Detail LastModifiedTime 05/16/2005/16/2019 urina lysis , dipst ick, auto Unknown Analyte Yellow Not Available [facility] [address] [place], [address], 05/16/2019 07:54:25 05/16/2005/16/2019 urina lysis , dipst ick, auto Unknown Analyte Clear Not Available [facility] [address] [place], [address], 05/16/2019 07:54:25 05/16/20 19 05/16/2019 urina lysis , dipst ick, auto Unknown Analyte 1.015 Not Available [facility] [address] [place], [address], 05/16/2019 07:54:25 05/16/2005/16/2019 urina lysis , dipst ick, auto Unknown Analyte 1.003 - 1.035 Not Available [facility] [address] [place], [address], 05/16/2019 07:54:25 05/16/20 19 05/16/2019 urina lysis , dipst ick, auto Unknown Analyte 5.0 Not Available [facility] [address] [place], [address], 05/16/2019 07:54:25 05/16/2005/16/2019 urina lysis , dipst ick, auto Unknown Analyte 5.0 - 8.0 Not Available [facility] [address] [place] [address], [address], 05/16/2019 07:54:25 05/16/2005/16/2019 urina lysis , dipst ick, auto Unknown Analyte Negati ve Not Available [facility] [address] [place] [address], [address], 05/16/2019 07:54:25 05/16/2005/16/2019 urina lysis , dipst ick, auto Unknown Analyte Negati ve Not Available [facility] [address] [place] [address], [address], 05/16/2019 07:54:25 05/16/2005/16/2019 urina lysis , dipst ick, auto Unknown Analyte Negati ve Not Available [facility] [address] [place] [address], [address], 05/16/2019 07:54:25 05/16/2005/16/2019 urina lysis , dipst ick, auto Unknown Analyte Negati ve Not Available [facility] [address] [place], [address], 05/16/2019 07:54:25 05/16/2005/16/2019 urina lysis , dipst ick, auto Unknown Analyte Negtiv e Not Available [facility] [address] [place] [address], [address], 05/16/2019 07:54:25 05/16/2005/16/2019 urina lysis , dipst ick, auto Unknown Analyte Negati ve - Trace Not Available [facility] [address] [place] [address], [address], 05/16/2019 07:54:25 05/16/2005/16/2019 urina lysis , dipst ick, auto Unknown Analyte Normal Not Available [facility] [address] [place] [address], [address], 05/16/2019 07:54:25 05/16/2005/16/2019 urina lysis , dipst ick, auto Unknown Analyte Normal Not Available [facility] [address] [place] [address], [address], 05/16/2019 07:54:25 05/16/2005/16/2019 urina lysis , dipst ick, auto Unknown Analyte Negati ve Not Available [facility] [address] [place] [address], [address], 05/16/2019 07:54:25 05/16/2005/16/2019 urina lysis , dipst ick, auto Unknown Analyte Negati ve Not Available [facility] [address] [place] [address], [address], 05/16/2019 07:54:25 05/16/2005/16/2019 urina lysis , dipst ick, auto Unknown Analyte Normal Not Available [facility] [address] [place], [address], 05/16/2019 07:54:25 05/16/20 19 05/16/2019 urina lysis , dipst ick, auto Unknown Analyte Normal - 1mg/dl Not Available [facility] [address] [place] [address], [address], 05/16/2019 07:54:25 05/16/2005/16/2019 urina lysis , dipst ick, auto Unknown Analyte Negati ve Not Available [facility] [address] [place] [address], [address], 05/16/2019 07:54:25 05/16/2005/16/2019 urina lysis , dipst ick, auto Unknown Analyte Negati ve Not Available [facility] [address] [place] [address], [address], 05/16/2019 07:54:25 05/16/2005/16/2019 urina lysis , dipst ick, auto Unknown Analyte Negati ve Not Available [facility] [address] [place] [address], [address], 05/16/2019 07:54:25 05/16/20 19 05/16/2019 urina lysis , dipst ick, auto Unknown Analyte Negati ve Not Available [facility] [address] [place] [address], [address], 05/16/2019 07:54:25 05/16/20 19 05/16/2019 urina lysis , dipst ick, auto Unknown Analyte Clean Catch Not Available [facility] [address] [place], [address], 05/16/2019 07:54:25 05/16/20 19 05/16/2019 urina lysis , dipst ick, auto Unknown Analyte Automa carlos Not Available [facility] [address] [place] [address], [address], 05/16/2019 07:54:25 05/24/1905/24/2019 urina lysis , dipst ick, auto Unknown Analyte Yellow Not Available [facility] [address] [place] [address], [address], 05/24/2019 10:02:15 05/24/19 20 05/24/2019 urina lysis , dipst ick, auto Unknown Analyte Clear Not Available [facility] [address] [place] [address], [address], 05/24/2019 10:02:15 05/24/1905/24/2019 urina lysis , dipst ick, auto Unknown Analyte 1.010 Not Available [facility] [address] [place] [address], [address], 05/24/2019 10:02:15 05/24/1905/24/2019 urina lysis , dipst ick, auto Unknown Analyte 1.003 - 1.035 Not Available [address], [address], 05/24/2019 10:02:15 05/24/19 20 05/24/2019 urina lysis , dipst ick, auto Unknown Analyte 5.0 Not Available [facility] [address], [address], 05/24/2019 10:02:15 05/24/1905/24/2019 urina lysis , dipst ick, auto Unknown Analyte 5.0 - 8.0 Not Available [facility] [address], [address], 05/24/2019 10:02:15 05/24/1905/24/2019 urina lysis , dipst ick, auto Unknown Analyte Negati ve Not Available [facility] [address], [address], 05/24/2019 10:02:15 05/24/19 20 05/24/2019 urina lysis , dipst ick, auto Unknown Analyte Negati ve Not Available [facility] [address] [place] [address], [address], 05/24/2019 10:02:15 05/24/19 20 05/24/2019 urina lysis , dipst ick, auto Unknown Analyte Negati ve Not Available [facility] [address] [place] [address], [address], 05/24/2019 10:02:15 05/24/19 20 05/24/2019 urina lysis , dipst ick, auto Unknown Analyte Negtiv e Not Available [facility] [address], [address], 05/24/2019 10:02:15 05/24/19 20 05/24/2019 urina lysis , dipst ick, auto Unknown Analyte Negati ve - Trace Not Available [facility] [address], [address], 05/24/2019 10:02:15 05/24/19 20 05/24/2019 urina lysis , dipst ick, auto Unknown Analyte Normal Not Available [facility] [address] [place] [address], [address], 05/24/2019 10:02:15 05/24/19 20 05/24/2019 urina lysis , dipst ick, auto Unknown Analyte Normal Not Available [facility] [address] [place] [address], [address], 05/24/2019 10:02:15 05/24/19 20 05/24/2019 urina lysis , dipst ick, auto Unknown Analyte Negati ve Not Available [facility] [address], [address], 05/24/2019 10:02:15 05/24/19 20 05/24/2019 urina lysis , dipst ick, auto Unknown Analyte Negati ve Not Available [facility] [address] [place] [address], [address], 05/24/2019 10:02:15 05/24/19 20 05/24/2019 urina lysis , dipst ick, auto Unknown Analyte Normal Not Available [facility] [address] [place] [address], [address], 05/24/2019 10:02:15 05/24/19 20 05/24/2019 urina lysis , dipst ick, auto Unknown Analyte Normal - 1mg/dl Not Available [facility] [address], [address], 05/24/2019 10:02:15 05/24/19 20 05/24/2019 urina lysis , dipst ick, auto Unknown Analyte Negati ve Not Available [facility] [address], [address], 05/24/2019 10:02:15 05/24/19 20 05/24/2019 urina lysis , dipst ick, auto Unknown Analyte Negati ve Not Available [facility] [address], [address], 05/24/2019 10:02:15 05/24/19 20 05/24/2019 urina lysis , dipst ick, auto Unknown Analyte Negati ve Not Available [facility] [address], [address], 05/24/2019 10:02:15 05/24/19 20 05/24/2019 urina lysis , dipst ick, auto Unknown Analyte Negati ve Not Available [facility] [address], [address], 05/24/2019 10:02:15 05/24/19 20 05/24/2019 urina lysis , dipst ick, auto Unknown Analyte Clean Catch Not Available [facility] [address] [place] [address], [address], 05/24/2019 10:02:15 05/24/19 20 05/24/2019 urina lysis , dipst ick, auto Unknown Analyte Visual Not Available [facility] [address] [place] [address], [address], 05/24/2019 10:02:15 06/06/19 20 06/06/2019 urina lysis , dipst ick, auto Unknown Analyte Yellow Not Available [facility] [address], [address], 06/06/2019 07:36:23 06/06/1906/06/2019 urina lysis , dipst ick, auto Unknown Analyte Clear Not Available [address], [address], 06/06/2019 07:36:23 06/06/19 20 06/06/2019 urina lysis , dipst ick, auto Unknown Analyte 1.005 Not Available [address], [address], 06/06/2019 07:36:23 06/06/19 20 06/06/2019 urina lysis , dipst ick, auto Unknown Analyte 6.0 Not Available [facility] [address], [address], 06/06/2019 07:36:23 06/06/19 20 06/06/2019 urina lysis , dipst ick, auto Unknown Analyte Negati ve Not Available [address], [address], 06/06/2019 07:36:23 06/06/19 20 06/06/2019 urina lysis , dipst ick, auto Unknown Analyte Negati ve Not Available [address], [address], 06/06/2019 07:36:23 06/06/19 20 06/06/2019 urina lysis , dipst ick, auto Unknown Analyte Negtiv e Not Available [facility] [address] [place], [address], 06/06/2019 07:36:23 06/06/1906/06/2019 urina lysis , dipst ick, auto Unknown Analyte 250 mg/dl Not Available [facility] [address] [place], [address], 06/06/2019 07:36:23 06/06/1906/06/2019 urina lysis , dipst ick, auto Unknown Analyte Negati ve Not Available [facility] [address] [place] [address], [address], 06/06/2019 07:36:23 06/06/19 20 06/06/2019 urina lysis , dipst ick, auto Unknown Analyte Normal Not Available [facility] [address] [place], [address], 06/06/2019 07:36:23 06/06/1906/06/2019 urina lysis , dipst ick, auto Unknown Analyte Negati ve Not Available [facility] [address] [place] [address], [address], 06/06/2019 07:36:23 06/06/1906/06/2019 urina lysis , dipst ick, auto Unknown Analyte Negati ve Not Available [facility] [address] [place] [address], [address], 06/06/2019 07:36:23 06/06/1906/06/2019 urina lysis , dipst ick, auto Unknown Analyte Clean Catch Not Available [facility] [address] [place] [address], [address], 06/06/2019 07:36:23 06/06/19 20 06/06/2019 urina lysis , dipst ick, auto Unknown Analyte Automa carlos Not Available [facility] [address], [address], 06/06/2019 07:36:23 06/29/19 20 06/29/2019 urina lysis , dipst ick, auto Unknown Analyte Yellow Not Available [facility] [address], [address], 06/29/2019 10:49:43 06/29/19 20 06/29/2019 urina lysis , dipst ick, auto Unknown Analyte Clear Not Available [facility] [address], [address], 06/29/2019 10:49:43 06/29/19 20 06/29/2019 urina lysis , dipst ick, auto Unknown Analyte 1.015 Not Available [facility] [address], [address], 06/29/2019 10:49:43 06/29/19 20 06/29/2019 urina lysis , dipst ick, auto Unknown Analyte 1.003 - 1.035 Not Available [address], [address], 06/29/2019 10:49:43 06/29/19 20 06/29/2019 urina lysis , dipst ick, auto Unknown Analyte 5.0 Not Available [facility] [address], [address], 06/29/2019 10:49:43 06/29/19 20 06/29/2019 urina lysis , dipst ick, auto Unknown Analyte 5.0 - 8.0 Not Available [address], [address], 06/29/2019 10:49:43 06/29/19 20 06/29/2019 urina lysis , dipst ick, auto Unknown Analyte Negati ve Not Available [facility] [address], [address], 06/29/2019 10:49:43 06/29/19 20 06/29/2019 urina lysis , dipst ick, auto Unknown Analyte Negati ve Not Available [facility] [address], [address], 06/29/2019 10:49:43 06/29/19 20 06/29/2019 urina lysis , dipst ick, auto Unknown Analyte Negati ve Not Available [facility] [address], [address], 06/29/2019 10:49:43 06/29/19 20 06/29/2019 urina lysis , dipst ick, auto Unknown Analyte Negati ve Not Available [facility] [address], [address], 06/29/2019 10:49:43 06/29/19 20 06/29/2019 urina lysis , dipst ick, auto Unknown Analyte Negtiv e Not Available [address], [address], 06/29/2019 10:49:43 06/29/19 20 06/29/2019 urina lysis , dipst ick, auto Unknown Analyte Negati ve - Trace Not Available [facility] [address], [address], 06/29/2019 10:49:43 06/29/19 20 06/29/2019 urina lysis , dipst ick, auto Unknown Analyte Normal Not Available [facility] [address], [address], 06/29/2019 10:49:43 06/29/19 20 06/29/2019 urina lysis , dipst ick, auto Unknown Analyte Normal Not Available [facility] [address] [place], [address], 06/29/2019 10:49:43 06/29/19 20 06/29/2019 urina lysis , dipst ick, auto Unknown Analyte Negati ve Not Available [facility] [address] [place] [address], [address], 06/29/2019 10:49:43 06/29/19 20 06/29/2019 urina lysis , dipst ick, auto Unknown Analyte Negati ve Not Available [facility] [address], [address], 06/29/2019 10:49:43 06/29/19 20 06/29/2019 urina lysis , dipst ick, auto Unknown Analyte Normal Not Available [facility] [address], [address], 06/29/2019 10:49:43 06/29/19 20 06/29/2019 urina lysis , dipst ick, auto Unknown Analyte Normal - 1mg/dl Not Available [facility] [address], [address], 06/29/2019 10:49:43 06/29/19 20 06/29/2019 urina lysis , dipst ick, auto Unknown Analyte Negati ve Not Available [facility] [address], [address], 06/29/2019 10:49:43 06/29/19 20 06/29/2019 urina lysis , dipst ick, auto Unknown Analyte Negati ve Not Available [facility] [address], [address], 06/29/2019 10:49:43 06/29/19 20 06/29/2019 urina lysis , dipst ick, auto Unknown Analyte Negati ve Not Available [facility] [address] [place], [address], 06/29/2019 10:49:43 06/29/19 20 06/29/2019 urina lysis , dipst ick, auto Unknown Analyte Negati ve Not Available [facility] [address] [place], [address], 06/29/2019 10:49:43 06/29/19 20 06/29/2019 urina lysis , dipst ick, auto Unknown Analyte Clean Catch Not Available [facility] [address] [place], [address], 06/29/2019 10:49:43 06/29/19 20 06/29/2019 urina lysis , dipst ick, auto Unknown Analyte Automa carlos Not Available [facility] [address] [place], [address], 06/29/2019 10:49:43 Result Notes None recorded. Problems Name Problem SNOMED Code Status Onset Date Resolution Date Notes Provider Name and Address Organization Details Recorded Time Mixed conductiv e AND sensorine ural hearing loss 56876249 Active 2015 From Automated Load;Prov ider: Dorian Hurd III tatus: Active Not Available [facility] 6 09:39:57 Otitis externa 3509385 Active 2015 Provider: Dorian Hurd III tatus: Active Not Available [facility] 6 09:39:57 Otitis externa of right ear 27952635377 47273 Active 2015 From Automated Load;Prov ider: oDrian Hurd III tatus: Active Not Available [facility] 6 09:39:57 Otorrhea 53578658 Active 2015 From Automated Load;Prov ider: Dorian Hurd III tatus: Active Not Available [facility] 6 09:39:57 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 Procedures Surgical History Date Name Laterality Status Provider Name and Address Organization Details Recorded Time 06/20/19 20 repair of scrotum completed CLAUDY LUQUE MD [address] [place] [address], [address], [facility] 06/20/2019 16:56:31 05/29/19 20 Scrotal surgery completed CLAUYD LUQUE MD [address] [place] [address], [address], [facility] 06/20/2019 16:57:39 Heart Surgery completed Fani Huffman [facility] 02/08/2019 16:35:08 Hernia Repair completed CLAUDY LUQUE MD [address] [place] [address], [address], [facility] 04/04/2019 14:53:49 Orchiectomy completed CLAUDY LUQUE MD [address] [place] [address], [address], [facility] 04/04/2019 14:54:02 Hydrocele Repair completed CLAUDY LUQUE MD [address] [place] [address], [address], [facility] 04/04/2019 14:54:16 Mastoidectomy completed Janet Stoll [facility] 12/14/2020 11:10:11 Imaging Results None recorded. Procedure Notes None recorded. Medical Equipment None Reported. Allergies Allergen ID Allergen Name Allergen Category Reaction Reaction Severity Criticality Documentation Date Start Date Code Code System Note Provider Name and Address Organization Details Recorded Time 095485 acetamino phen / oxycodone medicatio n nausea Not available Not available 02/08/2019 25235 3 RxNorm He can take 5 mg dose CLAUDY LUQUE MD [address] [place] [address] [place], [address], [facility] 9 15:06:12 793208 Bactrim medicatio n dizziness respirato ry distress Not available Not available Not available 02/11/2019 48288 9 RxNorm CLAUDY LUQUE MD [facility] [place], [address], [facility] 9 07:45:25 Medications Name Sig Start Date [...] ne propionat e 50 mcg/actua tion nasal spray,[facility] 12/14 completed Not Available Not Available Not Available metformin ER 500 mg tablet,ex tended release 24 hr 12/14 completed Not Available Not Available Not Available ezetimibe 10 mg tablet TAKE 1 TABLET BY MOUTH ONCE DAILY 12/14 completed Not Available Not Available Not Available Ciprodex 0.3 %-0.1 % ear drops,[facility] 02/08 completed Not Available Not Available [...] YOU DIDN T RECEIVE INSTRUCT IONS CALL [phone] 12/14 completed Not Available Not Available Not [...] Updated DateTime 05/24/2019 177.8 cm 33.9 kg/m2 951284.8 g 86 /min [facility] 05/24/2019 10:02:36 Date Recorded Body height Body mass index (BMI) Body weight Provider Name and Address Organization Details Last Updated DateTime 06/06/2019 177.8 cm 33.9 kg/m2 345019.8 g Sarah Mora [facility] 06/06/2019 07:36:09 Date Recorded Body height Body mass index (BMI) Body weight Heart rate Provider Name and Address Organization Details Last Updated DateTime 06/13/2019 177.8 cm 33.9 kg/m2 086539.8 g 86 /min [facility] 06/13/2019 07:50:01 Date Recorded Body height Body mass index (BMI) Body weight Provider Name and Address Organization Details Last Updated DateTime 06/29/2019 177.8 cm 33.9 kg/m2 102432.8 g [facility] 06/29/2019 10:49:27 Date Recorded Body weight Body temperature Body mass index (BMI) Body height Heart rate Systolic blood pressure Diastolic blood pressure Provider Name and Address Organization Details Last Updated DateTime 1 00314.3 2 g 97.7 [degF] 31.6 kg/m2 177.8 cm 75 /min 131 mm[Hg] 69 mm[Hg] Janet Stoll [facility] 1 11:09:26 Social History Question Answer Notes LastModified by Organizat ion Details LastModified Time Tobacco Smoking Status Current Every Day Smoker Janet Gonzalezaacs [facility] 12/14/2020 11:04:32 Marital Status Informatio n not available 02/08/2019 [...] Smoked Tobacco? 40 Information not available 12/14/2020 Sex: Unknown Functional Status Question Answer Note LastModified by Organization D etails LastModified Time Do you or have you ever used any other forms of tobacco or nicotine? No Information not available 12/14/2020 What is your level of alcohol consumption? None Information not available 02/08/2019 Mental Status None recorded. Family History Relationship Description Onset Age of this Age Resolved Age Notes LastModified by Organization Details LastModified Time Unspecified Relation Diabetes mellitus [email or web address] Not available 2018 16:34:35 Unspecified Relation Hypertensive disorder hbasham Not available 2018 16:34:41 Medical History Condition Response Diabetes Y Coronary Artery Disease Y Arthritis Y Sleep Disorder Y High Cholesterol Y Heart Disease Y Stroke Y Hypertension Y Pneumonia Y Past Encounters Encounter ID Performer Location Encounter Start Date Encounter Closed Date Diagnosis/Indication Diagnosis SNOMED-CT Code Diagnosis ICD10 Code Diagnosis Note [id number] CLAUDY LUQUE MD [facility] [address] [place] [address] 02/08/2019 15:22:29 02/09/2019 07:11:35 Epididymitis 92895587 N45.1 Hydrocele 28096370 N43.3 [id number] CLAUDY LUQUE MD [facility]OLOGY [facility] [address] [place] [address] 03/01/2019 07:35:36 03/01/2019 08:32:45 Epididymitis 49382986 N45.1 Hydrocele 20482144 N43.3 [id number] CLAUDY LUQUE MD SURGERY SCHEDULE [address] [place] [address] 1 04/04/2019 11:38:23 04/04/2019 11:39:05 Hydrocele of testis 73974321 N43.3 [id number] CLAUDY LUQUE MD [facility]Y [facility] [address] [place] [address] 1 04/22/2019 07:42:36 04/22/2019 08:20:59 Epididymitis 17742628 N45.1 Hydrocele 57287677 N43.3 Hematoma of scrotum 8996 6002 M79.81 [id number] CLAUDY LUQUE MD [facility]OLOGY [facility] [address] [place] [address] 1 05/16/2019 07:33:42 05/16/2019 08:55:46 Hydrocele 53582838 N43.3 Hematoma of scrotum 8996 6002 M79.81 Orchitis a nd epididymitis 779848750 N45.3 [id number] CLAUDY LUQUE MD [facility]Y [facility] [address] [place] [address] 1 05/24/2019 09:09:43 05/24/2019 10:36:10 Orchitis and epididymitis 348888987 N45.3 Hydrocele [id number] N43.3 Hematoma of scrotum 8996 6002 M79.81 [id number] CLAUDY LUQUE MD UROLOGY SB CLOSED [address] [place] [address] 1 06/06/2019 07:34:58 06/06/2019 08:50:46 Orchitis and epididymitis [id number] N45.3 Abscess of scrotum 07466 006 N49.2 [id number] CLAUDY LUQUE MD UROLOGY SB CLOSED [address] [place] [address] 1 06/13/2019 07:45:46 06/13/2019 08:18:58 Orchitis and epididymitis [id number] N45.3 Abscess of scrotum 29501 006 N49.2 [id number] CLAUDY LUQUE MD SURGERY SCHEDULE [address] [place] [address] 1 06/20/2019 13:07:55 06/20/2019 13:09:42 Disorder of scrotum [id number] N50.9 Orchitis a nd epididymitis [id number] N45.3 [id number] CLAUDY LUQUE MD UROLOGY SB CLOSED [address] [place] [address] 06/29/2019 10:43:58 06/29/2019 12:20:35 Orchitis and epididymitis [id number] N45.3 Abscess of scrotum 61985 006 N49.2 Health Concerns Section Related Observation LastModified by Organization Detai ls LastModified Time None Recorded Concern Status LastModified by Organization Details LastModified Time None Recorded Advance Directives Directive None Recorded Payers Insurance Date Sequence Insurance Name Policy Number Policy Burkett Covered Member ID Burkett Member ID Guarantor Name 12/11/2020 1 [place] (MEDICARE) Cristobal Vargas [id number] Cristobal Vargas 07/28/2018 1 *SELF PAY* Br chloe Vargas Notes Date Note Type Note Provider [...] with Augmentin for epididymoorchitis. 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 He denies fever. CLAUDY LUQUE MD [address] [place] [address] [place], [phone], [facility] 05/24/2019 10:21:51 06/06/2019 text/html Diagnoses: Right inguinal [...] Augmentin for epididymo-orchitis. He was admitted to [facility] and underwent left scrotal exploration and debridement 05/29/2019. He subsequently had placement of a wound VAC. 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 CLAUDY LUQUE MD [address] [place] [address], [phone], [facility] 06/06/2019 08:34:31 06/13/2019 text/html Diagnoses: Right inguinal [...] urgency, dysuria, or decreased flow. He saw mn and was prescribed Bactrim DS 02/08/2019, he had dizziness and shortness of breath after a few doses and was switched to Cipro 14 days. He underwent left hydrocelectomy 04/04/2019. This was complicated by scrotal hematoma and which opened spontaneously. They started wound packing 04/22/2019 and he was treated with Augmentin for epididymo-orchitis. He was admitted to [facility] and underwent left scrotal exploration and debridement 05/29/2019. He subsequently had placement of a wound VAC. 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 CLAUDY LUQUE MD [address] [place] [address], [phone], [facility] 06/13/2019 08:15:57 06/29/2019 text/html Diagnoses: Right inguinal [...] Augmentin for epididymo-orchitis. He was admitted to [facility] and underwent left scrotal exploration and debridement 05/29/2019. He subsequently had placement of a wound VAC. He underwent closure of the scrotal wound 06/20/2019. 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 HPI: The patient is here with his Angelic for follow-up after closure of the scrotal wound last week. He has been taking Augmentin. He is on chronic narcotics. He went to the emergency room last night for scrotal pain. He denies voiding trouble. CLAUDY LUQUE MD [facility] [place], [phone], [facility] 06/29/2019 11:32:37
--- NOTE | 2024-10-20 21:10 | HMH.EDGENADL ---
Discharge Plan Disposition Patient Disposition: Home, Self-Care Prescriptions Prescriptions: No Action azelastine 137 mcg (0.1 %) spray,non-aerosol 2 spray intranasal BID Qty: 30 2RF Rx Instructions: administer into each nostril metformin 500 mg tablet extended release 24 hr 500 mg PO BID atorvastatin 40 mg tablet See Rx Instructions .ROUTE .COMPLEX Qty: 90 3RF Dose Instruction: TAKE 1 TABLET BY MOUTH ONCE DAILY Rx Instructions: TAKE 1 TABLET BY MOUTH ONCE DAILY bumetanide 2 mg tablet 2 mg PO BID Qty: 60 5RF carvedilol 12.5 mg tablet 12.5 mg PO BID Qty: 180 3RF clopidogrel 75 mg tablet 75 mg PO DAILY Qty: 90 0RF Entresto 97-103 mg tablet See Rx Instructions .ROUTE .COMPLEX Qty: 180 3RF Dose Instruction: TAKE ONE TABLET BY MOUTH TWICE DAILY Rx Instructions: TAKE ONE TABLET BY MOUTH TWICE DAILY spironolactone 50 mg tablet See Rx Instructions .ROUTE .COMPLEX Qty: 90 5RF Dose Instruction: TAKE ONE TABLET BY MOUTH EVERY DAY Rx Instructions: TAKE ONE TABLET BY MOUTH EVERY DAY oxycodone-acetaminophen 10-325 mg tablet 1 tab PO insulin glargine 100 unit/mL (3 mL) insulin pen 10 unit SQ HS Qty: 3 2RF (DME) OneTouch Ultra Test Strip See Rx Instructions .Route Qty: 50 8RF Rx Instructions: test sugar qid insulin regular human 100 unit/mL (3 mL) insulin pen 1 sliding scale dose SQ USEASDIRECTD Qty: 15 2RF Rx Instructions: give 10 U subq for before meal up q 4-6 hours if fingerstick glucose reading is above 300 Ozempic 0.25 mg or 0.5 mg (2 mg/3 mL) pen injector 0.25 mg SQ WEEKLY Qty: 3 0RF Rx Instructions: for 4 weeks (DME) OneTouch Ultra Test Strip See Rx Instructions .Route Qty: 50 2RF Rx Instructions: daily testing varenicline tartrate 1 mg tablet See Rx Instructions .ROUTE .COMPLEX Qty: 56 3RF Dose Instruction: TAKE 1 TABLET BY MOUTH TWICE DAILY Rx Instructions: TAKE 1 TABLET BY MOUTH TWICE DAILY omeprazole 40 mg capsule,delayed release(DR/EC) See Rx Instructions .ROUTE .COMPLEX Qty: 180 1RF Dose Instruction: TAKE 1 CAPSULE BY MOUTH TWICE DAILY - SWALLOW WHOLE; DO NOT CRUSH, CHEW, DISSOLVE, CUT, BREAK Rx Instructions: TAKE 1 CAPSULE BY MOUTH TWICE DAILY - SWALLOW WHOLE; DO NOT CRUSH, CHEW, DISSOLVE, CUT, BREAK duloxetine 60 mg capsule,delayed release(DR/EC) See Rx Instructions .ROUTE .COMPLEX Qty: 90 1RF Dose Instruction: TAKE 1 CAPSULE BY MOUTH ONCE DAILY Rx Instructions: TAKE 1 CAPSULE BY MOUTH ONCE DAILY Jardiance 25 mg tablet See Rx Instructions .ROUTE .COMPLEX Qty: 90 3RF Dose Instruction: TAKE 1 TABLET BY MOUTH ONCE DAILY Rx Instructions: TAKE 1 TABLET BY MOUTH ONCE DAILY (DME) pen needle, diabetic [Comfort Touch Pen Needle] 31 gauge x 5/32 needle See Rx Instructions .Route Qty: 100 6RF Rx Instructions: As directed, ONCE DAILY glimepiride 4 mg tablet See Rx Instructions .ROUTE .COMPLEX Qty: 90 0RF Dose Instruction: TAKE 1 TABLET BY MOUTH ONCE DAILY Rx Instructions: TAKE 1 TABLET BY MOUTH ONCE DAILY lidocaine 5 % adhesive patch,medicated 1 patch topical DAILY Qty: 15 0RF Rx Instructions: Remove patch after 12 hours and leave off for 12 hours before using a new one magnesium 500 mg Tablet 500 mg PO DAILY aspirin 325 mg Tablet 325 mg PO DAILY potassium 99 mg Tablet 99 mg PO BID nitroglycerin 0.4 mg Tablet, Sublingual See Rx Instructions .ROUTE .COMPLEX Rx Instructions: 0.4 mg sublingually gabapentin 600 mg tablet 600 mg PO TID Referrals Follow up/Referrals: Claudy Kim MD [Primary Care Provider, Family Practice] - See instructions Activity Restrictions/Add. Instructions Additional Instructions/Restrictions: At this time it was felt you are safe to be discharged home. If new or worsening symptoms please do not hesitate to return the emergency department. We are discharging you with the understanding that you know I do not know the exact cause of your right proximal thigh and inguinal pain and a CT was offered but you wish to proceed with workup on an outpatient basis at this point. If at anytime you want to expedite your workup please present here for continued evaluation. Otherwise follow-up with your family doctor as soon as you are able. Clinical Impressions Clinical Impression: Inguinal pain Print Language Print Language: Solomon Islander Discharge ED Provider: Roque Briceño General Adult HPI General Chief complaint: PAIN Stated complaint: Right leg pain,no injury Time Seen by Provider: 10/20/24 21:04 Mode of Arrival: Ambulatory Source of Information: Patient Description of Symptoms (Recalled from ER Triage Doc. by RN): Pt prevents for evaluation of right sided groin pain x 4 days. Pt is concerned he may have a blood clot. Pt is on plavix. History of Present Illness HPI narrative: Patient is 64-year-old male that is comorbid who presents emergency department for evaluation of right proximal thigh pain. It has been bothering him on and off for the last 4 days. He is concerned he might have a blood clot presents here for continued evaluation. No scrotal pain no dysuria reported no abdominal pain normal stooling and voiding. No other acute complaints at this time. Please note that above description of symptoms, in this electronic medical record under categorization of recalled from ER triage doctor by RN are reflective of an initial nursing assessment, however, is not reflective of my full history and physical exam that was personally taken and clarified. Consequentially, this preceding description of symptoms, which may include the patient's categorized chief complaint in the EMR, do not reflect my personal clinical impression, and the ultimate description of history of present illness and patient stated complaints should be deferred to this section of the note. Unless stated otherwise or congruent with this section of the note, additional signs, symptoms, or incongruence should be interpreted as inaccurate with my clinical impression. Related Data Home Medications ?Medication ?Instructions ?Recorded ?Confirmed gabapentin 600 mg tablet 600 mg PO TID 09/03/23 10/07/24 aspirin 325 mg tablet 325 mg PO DAILY 02/17/24 10/07/24 magnesium 500 mg tablet 500 mg PO DAILY 02/17/24 10/07/24 nitroglycerin 0.4 mg sublingual See Rx Instructions .Route .COMPLEX 02/17/24 10/07/24 tablet potassium 99 mg tablet 99 mg PO BID 02/17/24 10/07/24 oxycodone-acetaminophen 10 mg-325 1 tab PO 02/24/24 10/07/24 mg tablet metformin 500 mg tablet,extended 500 mg PO BID 07/13/24 10/07/24 release 24 hr Previous Rx's ?Medication ?Instructions ?Recorded blood sugar diagnostic (Technologie BiolActisTouch #50 ea 11/10/23 Ultra Test strips) lidocaine 5 % topical patch 1 patch topical DAILY #15 ea 12/30/23 azelastine 137 mcg (0.1 %) nasal 2 spray intranasal BID #30 mL 05/02/24 spray atorvastatin 40 mg tablet See Rx Instructions .Route 07/13/24 .COMPLEX #90 ea bumetanide 2 mg tablet 2 mg PO BID #60 tabs 07/13/24 carvedilol 12.5 mg tablet 12.5 mg PO BID #180 tabs 07/13/24 clopidogrel 75 mg tablet 75 mg PO DAILY #90 tabs 07/13/24 sacubitril 97 mg-valsartan 103 mg See Rx Instructions .Route 07/13/24 tablet (Entresto) .COMPLEX #180 tabs spironolactone 50 mg tablet See Rx Instructions .Route 07/13/24 .COMPLEX #90 tabs varenicline tartrate 1 mg tablet See Rx Instructions .Route 07/25/24 .COMPLEX #56 ea duloxetine 60 mg capsule,delayed See Rx Instructions .Route 08/22/24 release .COMPLEX #90 caps omeprazole 40 mg capsule,delayed See Rx Instructions .Route 08/22/24 release .COMPLEX #180 caps empagliflozin 25 mg tablet See Rx Instructions .Route 08/30/24 (Jardiance) .COMPLEX #90 tabs insulin glargine 100 unit/mL (3 10 unit (0.1 mL) SQ HS #3 mL 09/02/24 mL) subcutaneous pen pen needle, diabetic 31 gauge x #100 ea 09/02/24/ (Comfort Touch Pen Needle) glimepiride 4 mg tablet See Rx Instructions .Route 09/19/24 .COMPLEX #90 tabs blood sugar diagnostic (OneTouch #50 ea 10/07/24 Ultra Test strips) insulin regular human 100 unit/mL 1 sliding scale dose SQ 10/07/24 (3 mL) subcutaneous pen USEASDIRECTD #15 mL semaglutide 0.25 mg or 0.5 mg (2 0.25 mg (0.368 mL) SQ WEEKLY #3 mL 10/07/24 mg/3 mL) subcutaneous pen injector (Ozempic) Allergies Allergy/AdvReac Type Severity Reaction Status Date / Time dobutamine AdvReac Unknown Hypertensio Verified 10/07/24 08:48 n [facility] Disclaimer: The information contained in this section may have been updated after the patient was seen, as this information can be updated by other users. Medical History Ear drainage right Generalized headaches Ear pain, right Pneumonia Cardiogenic shock On mechanically assisted ventilation Acute respiratory failure with hypoxia Abdominal pain Constipation Deviated nasal septum Hypertrophy of inferior nasal turbinate Sinusitis Mixed restrictive and obstructive lung disease Cardiac pacemaker in situ Pulmonary emphysema Smoking greater than 30 pack years Dyspnea on exertion Lung mass Nodule of right lung Right maxillary sinusitis HFrEF (heart failure with reduced ejection fraction) Impacted cerumen of right ear Dizziness Abnormal electrocardiogram [ECG] [EKG] ANNA (obstructive sleep apnea) Hyperlipidemia Depression Anxiety Gastroesophageal reflux disease Insomnia Coronary artery disease History of TIA (transient ischemic attack) Hypertension Diabetes mellitus Epididymitis Palpitations Opiate withdrawal TIA (transient ischemic attack) Surgical History History of removal of testicle History of hernia surgery History of cholecystectomy History of right mastoidectomy History of coronary artery bypass graft Family History Other Diabetes Social History (Updated 10/07/24 @ 08:51 by MARYSOL Guaman) Smoking Status: Current every day smoker tobacco type: cigarettes packs per day: 1 alcohol intake: never substance use type: denies use current occupational status: disabled Travel in the last 8 weeks?: None household members: spouse and children housing: house Have you lived/traveled outside US in past 30 days?: No Contact w/someone who lives/traveled outside US past 30 days?: No Exposure to someone with infectious disease in past 14 days?: No Do you have a fever (greater than 100.4 F or 38 C)?: No Have you tested positive for COVID-19?: No Exposed to someone with COVID-19 in past 14 days?: No Do you have a sore throat?: No Do you have a cough?: No Do you have any weakness?: No Do you have any diarrhea?: No Are you experiencing any unusual bleeding?: No Do you have any muscle aches/pain?: No Do you have any abdominal pain?: No Are you experiencing loss of taste or smell?: No Other Medical History Have you received the Flu Vaccine for this season: No Have you received the Pneumonia Vaccine: Yes ROS Obtained: Yes Systems reviewed as appropriate & no additional complaints except as documented Physical Exam General General appearance: alert and in no apparent distress Head Head exam: atraumatic and normocephalic Eye Eye exam: Present PERRL and EOMI ENT ENT exam: Present mucous membranes moist Neck Neck exam: Present normal inspection Chest Chest inspection: Present normal inspection and symmetric chest wall rise Respiratory Respiratory exam: Present normal lung sounds bilaterally; Absent respiratory distress Cardiovascular Cardiovascular exam: Present regular rate and normal rhythm Abdominal Exam Abdominal exam: Present soft; Absent tenderness, guarding or rebound exam: Present other (Mild intertrigo on the right, no mass in the right inguinal canal. No testicular tenderness. No crepitus or fluctuance in the perineum. ) Extremities Exam Extremities exam: Present normal inspection and other (No asymmetric swelling of the lower extremities, palpable dorsal pedal pulse bilaterally.) Neurological Exam Neurological exam: Present alert Psychiatric Psychiatric exam: Present normal affect Skin Skin exam: Present warm and dry Medical Decision Making Medical Records Screening: Per USPSTF and CDC recommendations, given the prevalence of disease in our region, it is our hospital?s policy to screen for HIV and viral Hepatitis for all patients aged 18 and over and those with ongoing risk factors. George Inquiry Pt receiving controlled substance: No Vital Signs: 10/20/24 20:47 Temperature 98.7 F Temperature Source Oral Pulse Rate [Right] 80 Respiratory Rate 16 Blood Pressure [Right Arm] 145/76 H Blood Pressure Mean [Right Arm] 99 Blood Pressure Source [Right Arm] Automatic Cuff Blood Pressure Position [Right Arm] Sitting 02 Sat by Pulse Oximetry 95 Orders (Tests/Meds): ORDERS Category Date Time Status POCUS Point of Care (ER Only) Stat Exams 10/20/24 21:10 Ordered Medical Decision Narrative: In summary patient is 64-year-old male past medical history Mikel above presents emergency department for evaluation of right proximal thigh pain. Patient is hemodynamically stable nontoxic-appearing upon arrival, afebrile. [id number] ultrasound at bedside unconcerning for proximal DVT. The exact etiology of his right proximal thigh pain near the inguinal region is undetermined and differential includes inguinal hernia, among others. However given he has no significant abdominal pain no change in bowel habits shared decision making discussion was had and patient wishes to proceed with outpatient management at this time although the etiology is not known and patient is aware of this he was given multiple return precautions and will proceed on outpatient basis at this point. Given that testicles are nontender no concern for torsion. Palpable dorsal pedal pulse on the right no concern for arterial pathology. I will order an outpatient duplex for formal study. Critical Care Critical Care Time Critical Care Time: No
[2024-10-20 21:40] VITALS: BP 144/85; PULSE 88; RESP 20; TEMP 36.7; O2SAT 98
[2024-10-20 21:42] VITALS: BP 144/85; PULSE 78; RESP 18; TEMP 36.7; O2SAT 95
== END 2024-10-20 21:41 | disposition home or self-care (01) ==
PROVIDERS: Emergency Provider Emergency Medicine; PCP Family Medicine
DX: M79.651 Pain in right thigh (principal)
CPT/HCPCS: 99282

== ENCOUNTER 2024-10-25 19:53 | Emergency (ER) | payer MEDICARE, SELFPAY ==
--- OUTSIDE RECORDS SUMMARY | 2007-03-04 05:58 | XMS_ITS | Continuity of Care Document ---
Author Organization [facility] Address [address] [place] [phone] Phone Care Team Providers Care Antique Furniture Repairer Name Role Phone Sourav Tripp MD Unavailable Unavailable Procedures Procedure Date Offic Cons New/estab Mod 40 Tx 07 Advance Directives Directive Yes / No [...] on Encounter Offic Cons New/estab Mod 40 [facility], [address] [place] [address], [id number], tel:[phone] [facility] ([place]) No Information Qasim Benjamin. [address] [place] [address], [id number], [place]. tel:[phone] Referring Provider: Hakan Pablo, [address] [place] [address], [place], [address]. tel:[phone] Family History Family Member Type Diagnosis Age At Onset Mother Problem (finding) diabetes melli tus in first degree relative Mother Problem (finding) glaucoma Payers Payer name Insurance type Covered libertarian ID Authoriza tion(s) Blue Adv FVM CI [id number] Social History Type Description Quantity Date Captured [...]
[2024-10-25] VITALS (12 sets, daily range): BP systolic 82–118; BP diastolic 38–72; PULSE 63–77; RESP 10–20; TEMP 36.2–36.7; O2SAT 94–100; BMI 31.5
--- NOTE | 2024-10-25 20:19 | ECG_ITS ---
APPROVED REPORT Exam: Resting ECG HR:75 bpm ECG Measurements Heart Rate 75 AXES OR 182 P -7 QRSd 115 QRS -76 QT 386 T 126 QTc 415 Conclusion SINUS RHYTHM LEFT ANTERIOR FASCICULAR BLOCK [QRS AXIS <= -45, QR IN I, RS IN II] LEFT VENTRICULAR HYPERTROPHY AND ST-T CHANGE [VOLTAGE CRITERIA PLUS ST/T ABNORMALITY] POSSIBLE ANTERIOR MYOCARDIAL INFARCTION , OF INDETERMINATE AGE [30 ms Q WAVE IN V3/V4, OR R < 0.2 mV IN V4] ABNORMAL ECG UNCONFIRMED REPORT Electronically signed by : NIRMALA FLORES, 10/27/2024 01:12:46
--- OUTSIDE RECORDS SUMMARY | 2024-10-25 20:19 | XMS_ITS | Encounter Summary ---
Author Organization [employer] Address [address] [place] [address] Care Team Providers Care Partnership Marketing Manager Name Role Phone Unavailable Primary Care Provider Unavailabl e Encounter Details Date Type Department Care Team (Late st Contact Info) Description 05/28/2019 Transcribed Document [facility] [place] Family Medicine [address] [place] [address] ProviderMelanie MD [address] [place] [address] Social History Tobacco Use Types Packs/Day Years Used Date Smoking Tobacco: Never Assessed Sex and Gender Information Value Date Recorded Sex Assigned at Not on file Legal Sex Male 4:07 PM CDT Gender Identity Not on file Sexual Orientation Not on file documented as of this encounter Miscellaneous Notes * Cerner Conversion Note - Historical ProviderMD - 05/28/2019 8:37 PM [employer] SALES [employer]OCIATE Pain Assessment Entered On: 05/29/2019 23:38 EST Performed On: 05/29/2019 21:55 EST by Jenna Vargas Lpn Intervention Information: HYDROmorphone Performed by Jenna Vargas Lpn on 05/29/2019 21:25:00 EST HYDROmorphone,1mg IV Push,Left Hand,Pain (Severe 7-10) Pain Assessment Pain Assessment : Follow-up assessment Pain Scale Goal : 3 Pain Scale Used : 0-10 Scale Jenna Vargas Lpn - 05/29/2019 23:38 EST documented in this encounter Plan of Treatment Not on file documented as of this encounter Visit Diagnoses Not on filedocumented in this encounter
--- OUTSIDE RECORDS SUMMARY | 2024-10-25 20:19 | XMS_ITS | Encounter Summary ---
Author Organization [employer] Address [address] [place] [address] Care Team Providers Care Programming Specialist Name Role Phone Unavailable Primary Care Provider Unavailabl e Encounter Details Date Type Department Care Team (Late st Contact Info) Description 05/28/2019 Transcribed Document [facility] [place] Family Medicine [address] [place] [address] ProviderMelanie MD [facility] [place] [address] Social History Tobacco Use Types Packs/Day Years Used Date Smoking Tobacco: Never Assessed Sex and Gender Information Value Date Recorded Sex Assigned at Not on file Legal Sex Male 4:07 PM CDT Gender Identity Not on file Sexual Orientation Not on file documented as of this encounter Miscellaneous Notes * Cerner Conversion Note - Historical ProviderMD - 05/28/2019 8:36 PM [employer] Pain Assessment Entered On: 05/29/2019 2:09 EST Performed On: 05/29/2019 1:58 EST by Jenna Vargas Lpn Intervention Information: acetaminophen-oxyCODONE Performed by Jenna Vargas Lpn on 05/29/2019 00:58:00 EST acetaminophen-oxyCODONE,1Tab Oral,Pain (Moderate 4-6) Pain Assessment Pain Assessment : Follow-up assessment Pain Scale Goal : 3 Pain Scale Used : 0-10 Scale Jenna Vargas Lpn - 05/29/2019 2:09 EST Pain Scale Intensity : 1 Jenna Vargas Lpn - 05/29/2019 2:09 EST Image 4 - Images currently included in the form version of this document have not been included in the text rendition version of the form. documented in this encounter Plan of Treatment Not on file documented as of this encounter Visit Diagnoses Not on filedocumented in this encounter
--- OUTSIDE RECORDS SUMMARY | 2024-10-25 20:19 | XMS_ITS | Encounter Summary ---
Author Organization [employer] Address [address] [id number] Care Team Providers Care Lactation Nurse Name Role Phone Unavailable Primary Care Provider Unavailabl e Encounter Details Date Type Department Care Team (Late st Contact Info) Description 05/28/2019 Transcribed Document [facility] [place] [facility] [place] [address] ProviderMelanie MD [address] [place] [id number] Social History Tobacco Use Types Packs/Day Years Used Date Smoking Tobacco: Never Assessed Sex and Gender Information Value Date Recorded Sex Assigned at Not on file Legal Sex Male 4:07 PM CDT Gender Identity Not on file Sexual Orientation Not on file documented as of this encounter Miscellaneous Notes * Cerner Conversion Note - Melanie ProviderMD - 05/28/2019 8:56 PM MOP MAN Patient: TERRI MOREL Age: 59 years Sex: Male : 1960 Associated Diagnoses: None Author: GUILLERMO SCOTT MD-INT Basic Information ADMISSION HISTORY AND PHYSICAL DATE OF ADMISSION: Admit Date 05/28/2019 18:12 PRIMARY CARE PROVIDER: Primary Care Provider SUKHJINDER SHRESTHA MD-INT Chief Complaint 1. Scrotal swelling 2. Scrotal pain 05/28/2019 18:16 EST Pt presents to the ER with an abscess to his scrotum x 8 weeks. Has been receiving treatment from [facility]. homehealth has been packing wound. No improvement with ABX treatment. infection started after surgery for hydrocele Drainage noted. History of Present Illness Mr. Moerl is 59-year-old white male with history of CADS/P CABG , diabetes who presents to the emergency department as instructed by Dr. Pro with urology for his worsening scrotal pain, the patient had a hydrocele repair approximately 2 months ago. He had left hydrocele repair on 04/04/2019. Patient had an ER visit on 04/08/2019 and was found to have large scrotal hematoma Hematoma was managed conservatively. Patient said he finished 3 rounds of antibiotics. Patient reports that he developed a hematoma which turned into an abscess, patient has been on antibiotics previously and has been having home health come to pack the wound. Patient reports he has been taking his [place] Percocet and morphine at home with no relief to his scrotal pain. Patient also reports that there is a hard mass in his scrotum that Dr. Pro had planned to ultrasound this week. Patient denies any fever chills headache dizziness blurred vision cough He denies chest pain shortness of breath abdominal pain nausea vomiting diarrhea no dysuria or hematuria. Review of Systems Constitutional: No fever, No chills, No weakness. Eye: No recent visual problem, No discharge. Ear/Nose/Mouth/Throat: No decreased hearing, No nasal congestion, No sore throat. Respiratory: No shortness of breath, No cough, No sputum production, No wheezing. Cardiovascular: No chest pain, No peripheral edema. Gastrointestinal: No nausea, No vomiting, No diarrhea, No heartburn, No abdominal pain, No hematemesis. Genitourinary: Dysuria, scrotal selling, scrotal ulcer , No hematuria. Hematology/Lymphatics: No bruising tendency. Endocrine: No excessive thirst, No polyuria, No cold intolerance. Immunologic: Not immunocompromised, No recurrent fevers. Musculoskeletal: No neck pain, No muscle pain. Integumentary: No rash, No pruritus, No dryness. Neurologic: No numbness, No tingling. Psychiatric: No anxiety, No depression, Not suicidal. VASCULAR: No claudication Health Status Allergies: Allergic Reactions (Selected) No Known Allergies, No qualifying data available Current medications: (Selected) Inpatient Medications Ordered Dilaudid: 1 mg, IV Push, 1-Time Dilaudid: 1 mg, IV Push, Q4H, PRN: Pain (Severe 7-10) DuoNeb 0.5 mg-2.5 mg/3 mL inhalation solution: 3 mL, Nebulized Inhalation, RT_Q3H, PRN: Shortness of Breath Pepcid: 20 mg, Oral, BID Percocet 10/325 oral tablet: 1 Tab, Oral, Q4H, PRN: Pain (Moderate 4-6) Phenergan: 12.5 mg, IV Push, Q4H, PRN: Nausea/Vomiting Restoril: 30 mg, Oral, At Bedtime, PRN: Sleep Sodium Chloride 0.45% intravenous solution 1000 mL: 75 mL/Hr, IntraVENous, Stop: 05/30/19 12:48:00 EST Tylenol: 650 mg, Oral, Q4H, PRN: Pain (Mild 1-3) Zofran: 4 mg, IV Push, Q4H, PRN: Nausea/Vomiting Zosyn: 3.375 Gram, IV Piggyback, Q6HInt cloNIDine: 0.1 mg, Oral, Q3H, PRN: Hypertension hydrALAZINE: 10 mg, IV Push, Q3H, PRN: Hypertension insulin lispro sliding scale: Scale D:, SubCutaneous, AC and at Bedtime lactobacillus acidophilus: 1 Cap, Oral, BID vancomycin: 1,000 mg, IV Piggyback, [id number], Medications (16) Active Scheduled: (6) famotidine 20 mg tab 20 mg 1 Tab, Oral, BID HYDROmorphone 1 mg/1 mL inj 1 mg 1 mL, IV Push, 1-Time insulin lispro Scale D:, SubCutaneous, AC and at Bedtime lactobacillus acidophilus cap 1 Cap, Oral, BID piperacillin-tazobactam 3.375 Gram, IV Piggyback, Q6HInt vancomycin 1,000 mg, IV Piggyback, [id number] Continuous: (1) NaCl 0.45% 1000 mL 1,000 mL, IntraVENous, 75 mL/Hr PRN: (9) acetaminophen 325 mg tab 650 mg 2 Tab, Oral, Q4H acetaminophen/oxyCODONE 325/10 mg tab 1 Tab, Oral, Q4H albuterol-ipratropium inh 3 mL 3 mL, Nebulized Inhalation, RT_Q3H cloNIDine 0.1 mg tab 0.1 mg 1 Tab, Oral, Q3H hydrALAZINE 20 mg/1 mL inj 10 mg 0.5 mL, IV Push, Q3H HYDROmorphone 1 mg/1 mL inj 1 mg 1 mL, IV Push, Q4H ondansetron 4 mg/2 mL inj 4 mg 2 mL, IV Push, Q4H promethazine 25 mg/1 mL inj 12.5 mg 0.5 mL, IV Push, Q4H temazepam 15 mg cap 30 mg 2 Cap, Oral, At Bedtime Problem list: No problem items selected or recorded., No qualifying data available Histories Past Medical History: No active or resolved past medical history items have been selected or recorded. Family History: No family history items have been selected or recorded., Significant for hypertension and diabetes mellitus Procedure history: Right total orchiectomy ([id number]). Repair of right inguinal hernia ([id number]). Hydrocele ([id number]). CABG (Coronary artery bypass grafting) planned ([id number]). Social History Social & Psychosocial Habits No Data Available . Physical Examination VS/Measurements Vitals Signs (last 24 hrs) Last Charted Minimum Maximum Temp 98.6 (MAY 28 18:16) 98.6 (MAY 28:) 98.6 (MAY 28:) Periph HR 75 (MAY 28:16) 75 (MAY 28 18:16) 75 (MAY 28:16) Resp Rate 18 (MAY 28 18:16) 18 (MAY 28 18:16) 18 (MAY 28:16) SBP H 148 (MAY 28:16) H 148 (MAY 28:16) H 148 (MAY 28:16) DBP 89 (MAY 28:) 89 (MAY 28 18:16) 89 (MAY 28:16) SpO2 100 (MAY 28:) 100 (MAY 28:) 100 (MAY 28:) General: Alert and oriented, No acute distress. Eye: Pupils are equal, round and reactive to light, Extraocular movements are intact, Normal conjunctiva. HENT: Ear: Within normal limits. Nose: Both nostrils, Within normal limits. Neck: Supple, Non-tender, No jugular venous distention, No lymphadenopathy, No thyromegaly. Respiratory: Breath sounds are equal, Symmetrical chest wall expansion, No chest wall tenderness. Respirations: Not tachypneic. Pattern: Regular. Breath sounds: Bilateral, No rales present, No rhonchi present, No wheezes present. Breath sounds: No rales present. Cardiovascular: S1, S2, No murmur, Non-displaced PMI. Arterial pulses: Bilateral, Posterior tibial, Dorsalis pedis, 3+. Capillary refill: Within normal limits. Gastrointestinal: Soft, Non-tender, Non-distended, Normal bowel sounds, No organomegaly. Genitourinary: No costovertebral angle tenderness, Diffuses scrotal swelling. Large hematoma. There is a scrotal ulcer in the anterior aspect. Musculoskeletal: Normal range of motion, Normal strength, No tenderness, No swelling. Integumentary: Warm. Neurologic: Alert, Oriented, Normal sensory, Normal motor function, Cranial Nerves II-XII are grossly intact. Cognition and Speech: Oriented, Speech clear and coherent. Psychiatric: Cooperative, Appropriate mood & affect. Review / Management Results review: Labs (Last four charted values) WBC 8.3 (MAY 28) HB 14.8 (MAY 28) HCT 46.5 (MAY 28) Plt 226 (MAY 28) Na 140 (MAY 28) K 3.7 (MAY 28) Cl 108 (MAY 28) CO2 27 (MAY 28) BUN 12 (MAY 28) Cr 0.80 (MAY 28) Glu R H 200 (MAY 28) Ca 9.6 (MAY 28) Lactic 2.0 (MAY 28) AST 20 (MAY 28) ALT 19 (MAY 28) ALK P 93 (MAY 28) T Bili 0.3 (MAY 28) PTN 8.2 (MAY 28) ALB 3.8 (MAY 28) . Radiology results MAY 28 19:06 140 108 12 / H 200 3.7 27 0.80 \ MAY 28 19:06 \ 14.8 / 8.3 226 / 46.5 \ RADIOLOGIC IMAGING: Chest x- ray without acute findings pending final reading Impression and Plan ASSESSMENT AND PLANS: Diffuses scrotal cellulitis: I ordered blood cultures X 2 I ordered urine culture and sensitivities A fluid bolus was given in the ED I placed the patient on IV Zosyn and IV vancomycin I placed a consult to infectious disease Suspect scrotal abscess: I ordered scrotal ultrasound and contents I will start IV Zosyn and IV vancomycin Scrotal ulcer: Local wound care S/P Left Hydrocelectomy on 04/04/[address] Claudy Monnig I placed a consult to urology large Scrotal hematoma [ postoperative ] evaluated by Dr. Claudy Pro on 04/08/2019 Coronary artery disease status post CABG 11/22/2018 I ordered EKG and a chest x-ray No recent cardiac symptoms or concerns Type 2 diabetes mellitus on oral agents: I placed the patient on insulin sliding scale We'll monitor vital signs and manage accordingly I ordered hemoglobin A A1c Ongoing tobacco smoking: Patient continues to smoke despite his coronary artery disease and recent surgery I discussed with the patient risks of further tobacco smoking Patient said he is trying to quit smoking He used to smoke over one pack of cigarettes daily currently, down topical solution daily I placed him in nicotine patch I spent 11 minutes in tobacco cessation counseling Gastrointestinal ( GI ) prophylaxis : I started the patient on Pepcid and Florastor DEEP VEIN THROMBOSIS ( DVT ) prophylaxis: I placed the patient on sequential compression devices ( Compression Boots ) while in bed. patient is ambulatory Unable to start heparin or Lovenox secondary to scrotal hematoma CODE STATUS: FULL code. I reviewed the patient home medications, laboratory testings, imaging, records I discussed with the patient and his at the bedside test results and treatment plans TIME SPENT : 52 minutes in evaluation documented in this encounter Plan of Treatment Not on file documented as of this encounter Visit Diagnoses Not on filedocumented in this encounter
--- OUTSIDE RECORDS SUMMARY | 2024-10-25 20:19 | XMS_ITS | Encounter Summary ---
Author Organization [employer] Address [address] [place] [address] Care Team Providers Care Steamtable Attendant Railroad Name Role Phone Unavailable Primary Care Provider Unavailabl e Encounter Details Date Type Department Care Team (Late st Contact Info) Description 05/28/2019 Transcribed Document [facility] [place] [address] [place] [address] ProviderMelanie MD [facility] [place] [address] Social History Tobacco Use Types Packs/Day Years Used Date Smoking Tobacco: Never Assessed Sex and Gender Information Value Date Recorded Sex Assigned at Not on file Legal Sex Male 4:07 PM CDT Gender Identity Not on file Sexual Orientation Not on file documented as of this encounter Miscellaneous Notes * Cerner Conversion Note - Historical ProviderMD - 05/28/2019 11:54 PM MERCHANDISE CLERK ED Discharge Entered On: 05/28/2019 23:54 EST Performed On: 05/28/2019 23:54 EST by Montse Shay RN Discharge Process Patient Disposition : Admit/Observe Personal Belongings With Patient : Yes Patient Education Completed : Yes Teaching Evaluation : Verbalizes understanding IV Discontinued : Not applicable Nursing Documentation Completed : Yes Montse Shay RN - 05/28/2019 23:54 EST Admission, ED Nurse Report Accepted By : Jenna COPPOLA `Nurse Report (Hand Off) : Called Accompanied By, Discharge : Significant other Reason For Hold : Other: pending report & transport Montse Shay RN - 05/28/2019 23:54 EST Electronically signed by Angel [facility] Conversion National Flatbed Truck Driver Cerner at 09/05/2022 2:15 PM CDT documented in this encounter Plan of Treatment Not on file documented as of this encounter Visit Diagnoses Not on filedocumented in this encounter
--- OUTSIDE RECORDS SUMMARY | 2024-10-25 20:19 | XMS_ITS | Encounter Summary ---
Author Organization [employer] Address [address] [place] [address] Care Team Providers Care Client Support Professional Name Role Phone Unavailable Primary Care Provider Unavailabl e Encounter Details Date Type Department Care Team (Late st Contact Info) Description 05/28/2019 Transcribed Document [facility] [place] [facility] [place] [address] ProviderMelanie MD [address] [place] [id number] Social History Tobacco Use Types Packs/Day Years Used Date Smoking Tobacco: Never Assessed Sex and Gender Information Value Date Recorded Sex Assigned at Not on file Legal Sex Male 4:07 PM CDT Gender Identity Not on file Sexual Orientation Not on file documented as of this encounter Miscellaneous Notes * Cerner Conversion Note - Historical ProviderMD - 05/28/2019 8:25 PM JUDO TEACHER Patient: TERRI MOREL Age: 59 years Sex: Male : 1960 Associated Diagnoses: Scrotal abscess; Uncontrolled pain Author: RANDY LAM PA-C Basic Information Additional information: Chief Complaint from Nursing Triage Note : Chief Complaint 05/28/2019 18:16 EST Chief Complaint Pt presents to the ER with an abscess to his scrotum x 8 weeks. Has been receiving treatment from [facility]. homehealth has been packing wound. No improvement with ABX treatment. infection started after surgery for hydrocele Drainage noted. . History of Present Illness The patient presents with PT is 59-year-old male with history of CAD CABG diabetes presents to the emergency department as instructed by Dr. Pro with urology for his worsening scrotal pain, the patient had a hydrocele repair approximately 2 months ago after which she developed a hematoma which turned into an abscess, patient has been on antibiotics previously and has been having home health come to pack the wound. Patient reports he has been taking his [place] Percocet and morphine at home with no relief to his scrotal pain. Patient also reports that there is a hard mass in his scrotum that Dr. Pro had planned to ultrasound this week. Patient denies any fever chills headache dizziness blurred vision cough chest pain shortness of breath abdominal pain nausea vomiting diarrhea no dysuria or hematuria. Review of Systems Additional review of systems information: All other systems reviewed and otherwise negative. Health Status Allergies: Allergic Reactions (Selected) No Known Allergies. Medications: (Selected) . Immunizations: Per nurse's notes. Past Medical/ Family/ Social History Medical history Reviewed as documented in chart. Surgical history: Right total orchiectomy ([id number]). Repair of right inguinal hernia ([id number]). Hydrocele ([id number]). CABG (Coronary artery bypass grafting) planned ([id number])., Reviewed as documented in chart. Family history: No family history items have been selected or recorded., Reviewed as documented in chart. Social history: Social & Psychosocial Habits No Data Available . Problem list: No qualifying data available , per nurse's notes. Physical Examination Vital Signs Vital Signs/Vital Measures 05/28/2019 18:16 EST Systolic Blood Pressure 148 mmHg HI Diastolic Blood Pressure 89 mmHg Temperature Source Oral Temperature Mode Fahrenheit Temperature, Fahrenheit 98.6 Deg F Clinical Temperature, C 37 Deg C Peripheral Pulse Rate 75 bpm Respiratory Rate 18 Breaths/Min Oxygen Saturation 100 % Oxygen Therapy Mode Room air . Measurements 05/28/2019 18:16 EST Height Source Stated Height Entry Format [place] Height/Length, [place] (ft) 5 ft Height/Length [place] 4 Inch CLINICALHEIGHT 162.56 cm [place] Body Weight 58.3 kg Weight Source, ED Critical estimated dosing weight Weight Entry Format [place] Weight Tamazight lb 225 lb CLINICALWEIGHT 102.27 kg Body Surface Area (BSA) 2.06 m2 Body Mass Index 38.7 kg/m2 HI . Oxygen Saturation 05/28/2019 18:16 EST Oxygen Saturation 100 % . General: Alert, no acute distress. Skin: Warm, dry, pink. Head: Normocephalic, atraumatic. Neck: Supple, trachea midline. Eye: Normal conjunctiva. Ears, nose, mouth and throat: Oral mucosa moist. Cardiovascular: Regular rate and rhythm. Respiratory: Lungs are clear to auscultation, respirations are non-labored. Gastrointestinal: Soft, Nontender, Non distended. Genitourinary: Scrotum: Erythema, Open wound with packing, hard mass to scrotum and open wound, no active drainage. Back: Nontender, Normal range of motion. Musculoskeletal: Normal ROM, normal strength. Neurological: Alert and oriented to person, place, time, and situation, No focal neurological deficit observed, normal speech observed, normal coordination observed. Psychiatric: Cooperative, appropriate mood & affect. Medical Decision Making Differential Diagnosis:: Abscess, cellulitis. Documents reviewed: Emergency department nurses' notes. Orders Include Previous Orders (Selected) Inpatient Orders Ordered Admit to Inpatient: Aerosol Treatment (RT): DVT VTE Prophylaxis Education: Diet, Adult: DuoNeb 0.5 mg-2.5 mg/3 mL inhalation solution: 3 mL, Nebulized Inhalation, RT_Q3H, PRN: Shortness of Breath ED Fall Risk Documented: Intake and Output: Pepcid: 20 mg, Oral, BID Resuscitation Status: Sequential Compression Device: Telemetry ADT: Tylenol: 650 mg, Oral, Q4H, PRN: Pain (Mild 1-3) Up to Chair: Vital Signs: Zofran: 4 mg, IV Push, Q4H, PRN: Nausea/Vomiting cloNIDine: 0.1 mg, Oral, Q3H, PRN: Hypertension hydrALAZINE: 10 mg, IV Push, Q3H, PRN: Hypertension morphine: 2 mg, IV Push, Q6H, PRN: Pain (Severe 7-10) oxyCODONE: 5 mg, Oral, Q6H, PRN: Pain (Moderate 4-6) Ordered (Dispatched) Culture Urine: Drug Screen Urine 2: Completed .Automated Differential: .Urinalysis Microscopic: CBC w/ Auto Diff: CMP Comprehensive Metabolic Panel: Dilaudid: 1 mg, IV Push, 1-Time ED Adult Fall Risk Assessment: ED Adult Triage: ED Clinical Reconciliation: 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 Results review: Lab results : Lab Results 05/28/2019 19:06 EST Sodium Level 140 mmol/L Potassium Level 3.7 mmol/L Chloride Level 108 mmol/L Carbon Dioxide Level 27 mmol/L Anion Gap 9 Glucose Level 200 mg/dL HI Blood Urea Nitrogen 12 mg/dL Creatinine Level 0.80 mg/dL eGFR >60 mL/min/1.73m2 eGFR NonAfrican >60 mL/min/1.73m2 Bun/Creatinine 15.0 Calcium Level 9.6 mg/dL Protein Total 8.2 Gram/dL Albumin Level 3.8 Gram/dL Globulin 4.4 Gram/dL A/G Ratio 0.9 LOW Bilirubin Total 0.3 mg/dL Alk Phos 93 Units/Liter AST 20 Units/Liter ALT 19 Units/Liter Lactic Acid Level 2.0 mmol/L WBC 8.3 K/uL RBC 5.56 Million/uL Hgb 14.8 g/dL Hct 46.5 % MCV 83.6 fL MCH 26.6 pg MCHC 31.8 Gram/dL LOW Platelet Count 226 K/uL MPV 11.6 fL RDW 16.8 % HI Neut % 55.0 % Neut # 4.57 K/uL Lymph % 35.3 % Lymph # 2.93 x10(3)/uL [place] % 6.3 % [place] # 0.52 K/uL Eos % 2.3 % Eos # 0.19 x10(3)/uL Baso % 0.6 % Baso # 0.05 x10(3)/uL Slide Review No IG# 0.04 x10(3)/uL IG% 0.50 % Urine Type. U CleanCatch Urine Color Yellow Urine Appearance Clear Urine Specific [place] >1.030 HI Urine pH Dipstick 6.0 Urine Leukocyte Esterase Negative Urine Nitrite Negative Urine Protein Dipstick Negative Urine Glucose Dipstick >=1000 Urine Ketones Dipstick Negative Urine Urobilinogen Dipstick 0.2 EU/dL Urine Bilirubin Dipstick Negative Urine Blood Dipstick Negative Ur RBC 0-2 /HPF . Impression and Plan Diagnosis Scrotal abscess - Discharge, Medical Uncontrolled pain - Discharge, Medical Calls-Consults - Spoke with Dr. Pro, urology, he requests that we admit the patient to hospitalist services and that he will contact the resident to come see the patient.. Plan Condition: Guarded. Disposition: Admit Admit/Transfer/Discharge: Admit to Inpatient (Order): Start: 05/28/2019 20:28 EST, Admit reason: scrotal abscess, Estimated length of stay 2 Midnights or LONGER, Level of Care: Med-Surg with telemetry, Admitting: FRANCOIS WISE DO. Counseled: Patient, Family, Regarding diagnosis, Regarding diagnostic results, Regarding treatment plan, Patient indicated understanding of instructions. documented in this encounter Plan of Treatment Not on file documented as of this encounter Visit Diagnoses Not on filedocumented in this encounter
--- OUTSIDE RECORDS SUMMARY | 2024-10-25 20:19 | XMS_ITS | Encounter Summary ---
Author Organization [employer] Address [address] [place] [address] Care Team Providers Care Crime Prevention Worker Name Role Phone Unavailable Primary Care Provider Unavailabl e Encounter Details Date Type Department Care Team (Late st Contact Info) Description 05/28/2019 Transcribed Document [facility] [place] [address] [place] [address] ProviderMelanie MD [facility] [place], [place] [id number] Social History Tobacco Use Types Packs/Day Years Used Date Smoking Tobacco: Never Assessed Sex and Gender Information Value Date Recorded Sex Assigned at Not on file Legal Sex Male 4:07 PM CDT Gender Identity Not on file Sexual Orientation Not on file documented as of this encounter Miscellaneous Notes * Cerner Conversion Note - Historical ProviderMD - 05/28/2019 9:10 PM CPHT Admission History, Adult Entered On: 05/29/2019 0:07 EST Performed On: 05/28/2019 21:10 EST by Jenna Vargas Lpn Advance Directive Patient has Advance Directive *Q : No, patient refuses Advance Directive information Jenna Vargas Lpn - 05/29/2019 0:02 EST Anesthesia/Transfusion History Family History of Anesthesia Reaction : Prior transfusion without reaction Transfusion History : Prior anesthesia without reaction Family History of Anesthesia Reaction : None Jenna Vargas Lpn - 05/29/2019 0:02 EST Anticipated Discharge Needs Discharge To, Anticipated : Home Jenna Vargas Lpn - 05/29/2019 0:02 EST Education Topics, Admission Orientation DCP GENERIC CODE Advance Directives : Verbalizes understanding Allergy Band Applied : Verbalizes understanding Assessment/Vital Signs : Verbalizes understanding Bed Control : Verbalizes understanding Call Light : Verbalizes understanding Confidentiality : Verbalizes understanding Diet/Room Service : Verbalizes understanding Fall Prevention : Verbalizes understanding Hand Hygiene : Verbalizes understanding Healthcare Provider Visit : Verbalizes understanding ID Band Applied : Verbalizes understanding Isolation Precautions : Verbalizes understanding Orientation to Room/Bathroom : Verbalizes understanding Patient Bill of Rights : Verbalizes understanding Patient Rights/Responsibilities : Verbalizes understanding Patient Safety : Verbalizes understanding Personal Privacy Code : Verbalizes understanding Rapid Response Initiated by Patient/Family : Verbalizes understanding Rounding : Verbalizes understanding Siderails use/risks : Verbalizes understanding Skin Precautions : Verbalizes understanding Smoking Policy : Verbalizes understanding Telemetry Monitoring : Verbalizes understanding Television/Phone : Verbalizes understanding Visiting Policy : Verbalizes understanding Jenna Vargas Lpn - 05/29/2019 0:02 EST Functional Assessment Living Situation : Home HARRELL Hx Falls Immediate/Within 3 Months : No Current Home Treatments : Apnea monitoring Jenna Vargas Lpn - 05/29/2019 0:02 EST General Info Mode of Arrival on Unit : Ambulatory Legal Guardian : Unaccompanied Want Family/Rep/Phys Notified of Admit : No Emergency Contact #1 : Nimisha Vargas Emergency Contact #1 Emergency Contact #1 Relationship : spouse Emergency Contact #2 : ` Emergency Contact #2 Phone Number : `` Emergency Contact #2 Relationship : ` Chief Complaint : Pt presents to the ER with an abscess to his scrotum x 8 weeks. Has been receiving treatment from [facility]. homehealth has been packing wound. No improvement with ABX treatment. infection started after surgery for hydrocele Drainage noted. Information Obtained From : Patient, Spouse Primary Language : Macanese Preferred Communication Mode : Verbal Communication Barrier : None Jenna Vargas Lpn - 05/29/2019 0:02 EST Fall Risk Scales ABCs Fall Injury Risk Identification : Age, Coagulation ABC Fall Injury Risk : Moderate to high injury risk Injury Moderate to High Risk Interventions : High Risk for Fall Injury sign in place per policy, Supervise toileting as indicated, Transport methods appropriate to patient HARRELL Hx Falls Immediate/Within 3 Months : No Harrell Secondary Diagnosis : Yes HARRELL Use of Ambulatory Aid : Bed rest/Nurse assist HARRELL IV Therapy or IV Access : Yes Harrell Gait/Transferring : Normal, bedrest, immobile Harrell Mental Status : Oriented to own ability Harrell Fall Risk Score : 35 HARRELL Fall Scale Risk Level : 25-45 Medium Risk Urania Fall Interventions : Adequate lighting, Assistive devices within reach, Bed in low position, Call device within reach, Fall prevention handout/education per facility policy, Hourly comfort/safety rounds, Non-slip footwear, Personal items within reach, Reinforced to call for assistance before getting out of bed, Room free of clutter/spills, Upper side-rails up, Wheels locked, Wires/Cords secured Fall Risk Scale Calc Temp : 1 Jenna Vargas Lpn - 05/29/2019 0:02 EST Health Histories Smoking Status : Never (less than 100 in lifetime; none in last 30 days) Smokeless Tobacco Status : Never Jenna Vargas Lpn - 05/29/2019 0:02 EST Social History (As Of: 05/29/2019 00:07:25 EST) Height and Weight, Clinical Dosing Height Source : Stated Height Entry Format : [place] Height, Feet : 5 ft(Converted to: 152 cm, 60 Inch) Height, Inches : 4 Inch(Converted to: 0 ft 4 Inch, 10.16 cm) Clinical Height : 162.56 cm Weight Source : Bed scale Weight Entry Format : [place] Clinical Dosing Weight : 102.27 kg Weight, Pounds : 225 lb Body Surface Area (BSA) : 2.06 m2 Body Mass Index : 38.7 kg/m2 (HI) [place] Body Weight : 58 kg Jenna Vargas Lpn - 05/29/2019 0:02 EST Infectious Disease History Infectious Disease History : Chicken pox/Shingles Fever/Chills Last 48 Hours : No Travel To Regions with Travel Advisories : No Travel Outside [place] Within Last 30 Days : No Contact With Traveler to Advisory Region : No Tuberculosis Symptoms : None Jenna Vargas Lpn - 05/29/2019 0:02 EST Tetanus Immunization Status Previous Tetanus Immunizations : No qualifying data available. Tetanus Immunization : Less than 5 years Jenna Vargas Lpn - 05/29/2019 0:02 EST Influenza Vaccine Asmt, Adult Previous Vaccines from Immunization Schedule : No qualifying data available. Influenza Immunization, Current Season : No Inactivated Flu Vaccine Contraindications : No contraindications to inactivated influenza vaccine Transplant Workup/Recent Transplant : No Order for Influenza Vaccine : Order for influenza vaccine sent to pharmacy Jenna Vargas Lpn - 05/29/2019 0:02 EST Pneumococcal Vaccine Previous Vaccines from Immunization Schedule : No qualifying data available. Pneumonia Immunization Received : No Pneumococcal Risk Assessment < Age 65 : None Jenna Vargas Lpn - 05/29/2019 0:02 EST Order Details Transport Mode Order Detail : Ambulatory Isolation Precautions Order Detail : Standard Precautions Order Detail : N/A IV Order Detail : 1 Oxygen Order Detail : 0 Nurse Collect Order Detail : 0 Lift/Transfer : Independent Central Line Order Detail : No Room Service : Appropriate Arterial Line : No Jenna Vargas Lpn - 05/29/2019 0:02 EST Nutrition History Feeding Ability : Independent Adaptive Feeding Equipment : Regular Eating Poorly Due to Decreased Appetite : No Unplanned Weight Loss in Past 3-6 Months : No Malnutrition Screening Tool Total(mal) : 0 Malnutrition Screening Tool Risk Level : Patient not at risk Jenna Vargas Lpn 05/29/2019 0:02 EST [place] Suicide Severity Rating Scale (C-SSRS) CSSRS Past Month Wish to be : No CSSRS Past Month Suicidal Thoughts : No CSSRS Lifetime Suicide Behavior : No Suicide Severity Rating Score : 0 Suicide Severity Rating : No Additional Care Required at this time Jenna Vargas Lpn 05/29/2019 0:02 EST Psychosocial History Does Someone Depend on You for Care? : No Currently in Unsafe Situation : No Jenna Vargas Program Specialist 05/29/2019 0:02 EST Sleep Apnea Risk Assmt BiPAP/CPAP Ordered for Home Use : Yes Hx of Obstructive Sleep Apnea Diagnosis : Yes BiPAP/CPAP Used at Home : Yes Age over 50 Years Old : Yes Gender Male : Yes Jenna Vargas Program Specialist 05/29/2019 0:02 EST Spiritual/Cultural Needs Significant Loss/Crisis in Past 3 Years : No Any Spiritual/Cultural Needs or Requests : No Jenna Vargas Program Specialist 05/29/2019 0:02 EST Valuables and Belongings Valuables and Belongings : Clothing, Personal devices, Personal items Clothing : Common streetwear Clothing Disposition : Bedside, With family Personal Device Disposition : Bedside, With family Personal Devices : Glasses Personal Items : Cell phone, Other: CPAP Personal Items Disposition : Bedside Jenna Vargas [facility] - 05/29/2019 0:02 EST documented in this encounter Plan of Treatment Not on file documented as of this encounter Visit Diagnoses Not on filedocumented in this encounter
--- OUTSIDE RECORDS SUMMARY | 2024-10-25 20:19 | XMS_ITS | Encounter Summary ---
Author Organization [employer] Address [address] [place] [address] Care Team Providers Care Aircraft Painter Apprentice Name Role Phone Unavailable Primary Care Provider Unavailabl e Encounter Details Date Type Department Care Team (Late st Contact Info) Description 04/08/2019 Transcribed Document [facility] [place] [address] [place] [address] ProviderMelanie MD [address] [place] [address] Social History Tobacco Use Types Packs/Day Years Used Date Smoking Tobacco: Never Assessed Sex and Gender Information Value Date Recorded Sex Assigned at Not on file Legal Sex Male 4:07 PM CDT Gender Identity Not on file Sexual Orientation Not on file documented as of this encounter Miscellaneous Notes * Cerner Conversion Note - Historical ProviderMD - 04/08/2019 10:42 AM GLASS CUT OFF SUPERVISOR [place] Suicide Severity Rating Scale (C-SSRS) Entered On: 04/08/2019 11:15 EST Performed On: 04/08/2019 10:45 EST by Renata Dia RN [place] Suicide Severity Rating Scale (C-SSRS) CSSRS Past Month Wish to be : No CSSRS Past Month Suicidal Thoughts : No CSSRS Lifetime Suicide Behavior : No Suicide Severity Rating Score : 0 Suicide Severity Rating : No Additional Care Required at this time Thoughts of Harming/Killing Others : No Renata Dia RN - 04/08/2019 11:15 EST documented in this encounter Plan of Treatment Not on file documented as of this encounter Visit Diagnoses Not on filedocumented in this encounter
--- OUTSIDE RECORDS SUMMARY | 2024-10-25 20:19 | XMS_ITS | Encounter Summary ---
Author Organization [employer] Address [address] [place] [address] Care Team Providers Care Textile Technologist Name Role Phone Unavailable Primary Care Provider Unavailabl e Encounter Details Date Type Department Care Team (Late st Contact Info) Description 05/28/2019 Transcribed Document [facility] [place] [address] [place] [address] ProviderMelanie MD [facility] [place], [place] [address] Social History Tobacco Use Types Packs/Day Years Used Date Smoking Tobacco: Never Assessed Sex and Gender Information Value Date Recorded Sex Assigned at Not on file Legal Sex Male 4:07 PM CDT Gender Identity Not on file Sexual Orientation Not on file documented as of this encounter Miscellaneous Notes * Cerner Conversion Note - Historical ProviderMD - 05/28/2019 6:12 PM JAVA J2EE LEAD ED Assessment Entered On: 05/28/2019 18:55 EST Performed On: 05/28/2019 18:51 EST by SHAUNNA WEST RN ED Quick Look Assessment Level of Consciousness : Alert Affect/Behavior : Appropriate, Cooperative Orientation : Oriented x 4 Skin Temperature : Warm SHAUNNA WEST RN - 05/28/2019 18:51 EST ED General-Functional Assess Information Obtained From : Patient, Spouse Preferred Communication Mode : Verbal Communication Barrier : None Primary Language : Ukrainian Any Spiritual/Cultural Needs or Requests : No Currently in Unsafe Situation : No SHAUNNA WEST RN - 05/28/2019 18:51 EST Social Habits Smoking Status : Never (less than 100 in lifetime; none in last 30 days) Smokeless Tobacco Status : Never Desires Tobacco Cessation Calc : 0 SHAUNNA WEST RN - 05/28/2019 18:51 EST Social History (As Of: 05/28/2019 18:55:51 EST) Cardiovascular ASMT, ED Cardiovascular Assessment WDL : WDL SHAUNNA WEST RN - 05/28/2019 18:51 EST Respiratory Respiratory Assessment WDL : [facility] SHAUNNA WEST RN - 05/28/2019 18:51 EST Genitourinary Assessment, ED Genitourinary Assessment WDL : [facility] with exceptions (Comment: pt c/o non-healing wound to scrotum, redness, swelling and discharge. Packing removed. Pain /10. Denies difficulty urinating. [SHAUNNA WEST RN - 05/28/2019 18:51 EST] ) SHAUNNA WEST RN - 05/28/2019 18:51 EST Genital Anatomy Power Grid Genital Anatomy : Scrotum (Comment: open wound to scrotum. Packing removed per pt request, draining blood and white-yellow discharge. [SHAUNNA WEST RN - 05/28/2019 18:51 EST] ) SHAUNNA WEST RN - 05/28/2019 18:51 EST Neurologic ASMT, ED Neurologic Assessment WDL : [facility] Palm Coma Scale Link : Open [facility]CS SHAUNNA WEST RN - 05/28/2019 18:51 EST Palm Coma Felipa Best Motor Response : Obey commands Palm Best Verbal Response : Oriented Palm Eye Opening Response : Spontaneous Felipa Coma Score : 15 SHAUNNA WEST RN - 05/28/2019 18:51 EST documented in this encounter Plan of Treatment Not on file documented as of this encounter Visit Diagnoses Not on filedocumented in this encounter
--- OUTSIDE RECORDS SUMMARY | 2024-10-25 20:19 | XMS_ITS | Encounter Summary ---
Author Organization [employer] Address [address] [place] [address] Care Team Providers Care Rotary Filter Operator Name Role Phone Unavailable Primary Care Provider Unavailabl e Encounter Details Date Type Department Care Team (Late st Contact Info) Description 05/28/[address] [facility] [place] [facility] [place] [address] ProviderMelanie MD [address] [place] [id number] Social History Tobacco Use Types Packs/Day Years Used Date Smoking Tobacco: Never Assessed Sex and Gender Information Value Date Recorded Sex Assigned at Not on file Legal Sex Male 4:07 PM CDT Gender Identity Not on file Sexual Orientation Not on file documented as of this encounter Miscellaneous Notes * Cerner Conversion Note - Melanie ProviderMD - 05/28/2019 6:12 PM COURTROOM DEPUTY OR CALENDAR CLERK ED Triage Entered On: 05/28/2019 18:28 EST Performed On: 05/28/2019 18:16 EST by KEN GAY RN ED Triage Across the Room Chief Complaint : Pt presents to the ER with an abscess to his scrotum x 8 weeks. Has been receiving treatment from [facility]. homehealth has been packing wound. No improvement with ABX treatment. infection started after surgery for hydrocele Drainage noted. Triage Date/Time : 05/28/2019 18:16 EST KEN GAY RN - 05/28/2019 18:16 EST DCP GENERIC CODE Tracking Acuity : 3 - Urgent Tracking Group : [facility] ED KEN GAY RN - 05/28/2019 18:16 EST Mode of Arrival : Ambulatory Transported to ED by : Walk in To Room Via : Ambulate Accompanied By : Unaccompanied ED Vital Signs : Document Height & Weight : Document ED Allergies : Document ED Reason for Visit : Document KEN GAY RN - 05/28/2019 18:16 EST Infectious Disease History Infectious Disease History : Chicken pox/Shingles Fever/Chills Last 48 Hours : No Travel To Regions with Travel Advisories : No Travel Outside [place] Within Last 30 Days : No Contact With Traveler to Advisory Region : No Tuberculosis Symptoms : None KEN GAY RN - 05/28/2019 18:16 EST Vital Signs ED Temperature Source : Oral Temperature Mode : Fahrenheit Temperature, Fahrenheit : 98.6 Deg F Clinical Temperature, C : 37 Deg C Oxygen Therapy Mode : Room air Peripheral Pulse Rate : 75 bpm Respiratory Rate : 18 Breaths/Min Systolic Blood Pressure : 148 mmHg (HI) Diastolic Blood Pressure : 89 mmHg Oxygen Saturation : 100 % KEN GAY RN - 05/28/2019 18:16 EST Allergy (As Of: 05/28/2019 18:28:03 EST) Allergies (Active) No Known Allergies Estimated Onset Date: Unspecified ; Created By: Contributor_system, HIST_CERMIHIR; Reaction Status: Active ; Category: Drug ; Substance: No Known Allergies ; Type: Allergy ; Updated By: Contributor_system HIST_CERMIHIR; Reviewed Date: 05/28/2019 18:16 EST Diagnosis Control ED (As Of: 05/28/2019 18:28:03 EST) Diagnoses(Active) Abscess - complicated Date: 05/28/2019 ; Diagnosis Type: Reason For Visit ; Confirmation: Complaint of ; Clinical Dx: Abscess - complicated ; Classification: Medical ; Clinical Service: Emergency medicine ; Code: PNED ; Probability: 0 ; Diagnosis Code: [id number] ED Height and Weight Height Source : Stated Height Entry Format : [place] Height, Feet : 5 ft(Converted to: 152 cm, 60 Inch) Height, Inches : 4 Inch(Converted to: 0 ft 4 Inch, 10.16 cm) Clinical Height : 162.56 cm Weight Source, ED : Critical estimated dosing weight Weight Entry Format : [place] Weight, Pounds : 225 lb Clinical Dosing Weight : 102.27 kg Body Surface Area (BSA) : 2.06 m2 Body Mass Index : 38.7 kg/m2 (HI) Distant Body Weight (IBW) : 58.3 kg KEN GAY RN - 05/28/2019 18:16 EST Electronically signed by [facility] Conversion Engineering Design Manager Cerner at 09/05/2022 2:17 PM CDT documented in this encounter Plan of Treatment Not on file documented as of this encounter Visit Diagnoses Not on filedocumented in this encounter
--- NOTE | 2024-10-25 20:20 | XR_ITS ---
PROCEDURE INFORMATION: Exam: XR Chest Exam date and time: 10/25/2024 8:25 PM Age: 64 years old Clinical indication: Injury or trauma; Fall; Other: Pain TECHNIQUE: Imaging protocol: Radiologic exam of the chest. Views: 1 view. COMPARISON: CR XR CHEST PORTABLE 03/28/2024 9:52 AM FINDINGS: Tubes, catheters and devices: Pacemaker is present. Lungs: Clear. No consolidation. Pleural spaces: No pleural effusion. No pneumothorax. Heart/Mediastinum: Normal heart size. Status post CABG and sternotomy. Bones/joints: Unremarkable. IMPRESSION: No acute findings.
--- OUTSIDE RECORDS SUMMARY | 2024-10-25 20:20 | XMS_ITS | Clinical Summary ---
Author Organization [facility] Address [address] [place] [address] Care Team Providers Care Production Cloth Cutter Name Role Phone Anita Dumas Primary Care Provider [phone] Allergies Active Allergy Reactions Criticality Noted Date Comments Dobutamine Other - please document in the comment field Medium 02/05/2012 elevated blood pressure so high it could not be measured elevated blood pressure so high it could not be measured Pt states last time he took. His bp was so high he had to be admitted. HTN Sulfamethoxazole-Trime thoprim Dizziness,Shortness of breath High 08/03/2024 Medications traZODone (Desyrel) 50 MG tablet trazodone 50 mg tablet TAKE 1 TABLET BY MOUTH ONCE DAILY AT NIGHT Active Ozempic, 1 MG/DOSE, 4 MG/3ML solution pen-injector 2 Active Potassium 99 MG tablet Take 99 mg by mouth 1 (one) time each day. Active oxyCODONE-aceta minophen (Percocet) 10-325 MG tablet 3 Active omeprazole (PriLOSEC) [address] capsule 3 Active metFORMIN XR (Glucophage-XR) 500 MG 24 hr tablet 3 Active gabapentin (Neurontin) 600 MG tablet 3 Active furosemide (Lasix) 20 MG tablet 3 Active fluticasone (Flonase) 50 MCG/ACT nasal spray 2 Active cholecalciferol (Vitamin D-3) 50 MCG (1999 UT) tablet Take 2,000 Units by mouth 1 (one) time each day. Active aspirin 325 MG tablet Take 325 mg by mouth 1 (one) time each day. Active glimepiride (Amaryl) 4 MG tablet 3 Active B Complex Vitamins (VITAMIN-B COMPLEX PO) TAKE 1 TABLET DAILY. 6 Active Potassium 99 MG tablet TAKE 1 CAPSULE Daily 9 Active ibuprofen 200 MG tablet Take 200 mg by mouth every 6 (six) hours if needed for mild pain. Active acetaminophen (Tylenol) 325 MG tablet Take 650 mg by mouth every 6 (six) hours if needed. Active zinc gluconate 50 MG tablet Take 50 mg by mouth 1 (one) time each day. Active Jardiance 25 MG 5 Active OneTouch Ultra Test test strip USE 1 STRIP TO CHECK GLUCOSE ONCE DAILY FOR DIABETES 4 Active varenicline (Chantix) 1 MG tablet 5 Active atorvastatin (Lipitor) 40 MG tablet Take 1 tablet (40 mg) by mouth daily. 5 Active Azelastine HCl 137 MCG/SPRAY solution as needed. 4 Active bumetanide (Bumex) 2 MG tablet 5 Active carvedilol (Coreg) 12.5 MG tablet Take 1 tablet (12.5 mg) by mouth. 5 Active clopidogrel (Plavix) 75 MG tablet Take 1 tablet (75 mg) by mouth. 4 Active DULoxetine (Cymbalta) [address] capsule Take 1 capsule (60 mg) by mouth. 4 Active Entresto 97-103 MG tablet Take 1 tablet by mouth in the morning and 1 tablet before bedtime. 5 Active Januvia 100 MG tablet 4 Active spironolactone (Aldactone) 50 MG tablet Take 1 tablet (50 mg) by mouth daily. 5 Active Active Problems Problem Noted Date Diagnosed Date Tobacco abuse counseling 08/03/2024 Intracranial vascular stenosis 08/03/2024 Encounters Date Type Department Care Team Description 08/03/2024 11:30 AM EDT Consult [facility] [address] [place] [address] Jermaine Pringle MD Intracranial vascular stenosis (Primary Dx); History of aneurysm; Tobacco abuse counseling 08/03/2024 Travel from Last 3 Months Immunizations Immunization Administration Dates Next Due Influenza, injectable, quadrivalent, preservativ e free 06/26/2016 Pneumococcal Polysaccharide PPV23 06/26/2016 Family History Medical History Relation Name Comments Diabetes Other 1 Heart disease Other 2 Hypercholesterolemia Other 3 Hypertension Other 4 Relation Name Status Comments Other 1 Other 2 Other 3 Other 4 Social History Tobacco Use Types Packs/Day Years Used Date Smoking Tobacco: Every Day Smokeless Tobacco: Current Comments:vape Alcohol Use Standard Drinks/Week Comments No 0 (1 standard drink = 0.6 oz pur e alcohol) Sex and Gender Information Value Date Recorded Sex Assigned at Not on file Legal Sex Male 6:00 PM EDT Gender Identity Not on file Sexual Orientation Not on file Last Filed Vital Signs Vital Sign Reading Time Taken Comments Blood Pressure 121/80 08/03/2024 11:31 AM EDT Pulse 64 08/03/2024 11:31 AM EDT Temperature 36.4 C (97.5 F) 12/22/2018 1:09 PM EDT Respiratory Rate - - Oxygen Saturation 96% 08/03/2024 11:31 AM EDT Inhaled Oxygen Concentration - - Weight 101 kg (223 lb) 08/03/2024 11:31 AM EDT Height 177.8 cm (5' 10 ) 08/03/2024 11:31 AM EDT Body Mass Index 32 08/03/2024 11:31 AM EDT Plan of Treatment Health Maintenance Due Date Last Done Comments [facility]-Depression Screening 1961 [facility]-/Child/Adol SDOH Screenings 1961 [facility]- SDOH Screenings 1979 [facility]-Adult SDOH Screenings 1979 CT Colonography 2006 Colonoscopy 2006 FIT-DNA 2006 FIT 2006 FOBT 2006 Sigmoidoscopy 2006 [facility]-Colorectal Cancer Screening 2006 [facility]-Zoster Vaccines (1 of 2) 2011 [facility]-Pneumococcal Vaccine: 50+ Years (2 of 2 - PCV) 06/26/2017 06/26/2016, 03/18/2011 [facility]-DTaP,Tdap,and Td Vaccines (2 - Td or Tdap) 05/05/2023 05/05/2013 [id number] Vaccine (1 - season) 2024 [facility]-Influenza Vaccine (Season Ended) 2025 05/30/2019, 06/26/2016, 06/22/2016, Additional history exists [facility]-RSV Vaccine: 60+ Years or (1 - 1-dose 75+ series) 02/17/2036 [facility]-Diabetes: Hemoglobin A1C Discontinued 03/22/2021, 05/19/2020, 04/17/2020, Additional history exists HPV Vaccines Aged Out No longer eligi ble based on patient's age to complete this topic [facility]-HIB Vaccines Aged Out No longer e ligible based on patient's age to complete this topic [facility]-Hepatitis A Vaccines Aged Out No longer eligible based on patient's age to complete this topic [facility]-IPV Vaccines Aged Out No longer e ligible based on patient's age to complete this topic [facility]-Rotavirus Vaccines Aged Out No lo nger eligible based on patient's age to complete this topic Procedures Procedure Name Priority Date/Time Associated Diagnosis Comments HEMOGLOBIN A1C Routine 11/14/2018 6:10 PM EDT from Last 3 Months or Most Recently Relevant to Health Maintenance Results * (ABNORMAL) Hemoglobin A1c (11/14/2018 6:10 PM EDT) Hemoglobin A1c 7.7(H) 4.7 - 6.0 % [facility] Comment: Glycohemoglobin Reference Range, 0 years and up: 4.7 to 6.0% . HA1C Interpretive Data: Diagnosis of Diabetes: Diabetic > or = 6.5% Pre-diabetic 5.7 to 6.4% Non-diabetic < or = 5.6% . Glycemic Targets for Type I and Type II Diabetics: Non- Adults <7.0% Adults <6.0% Children and Adolescents <7.5% . Source: [place] [employer]. Standards of medical care in diabetes, 2017. Diabetes Care.2017:40 (suppl 1):S1-S135. . HbA1c assay performed by an ion-exchange chromatography method that is certified traceable to the DCCT. 11/14/2018 6:10 PM EDT 11/14/2018 6:24 PM EDT us Mikel Dowell [facility] BLOOD ORDERABLES Final Re sult [facility] from Last 3 Months or Most Recently Relevant to Health Maintenance Insurance MEDICARE Care Teams Production Cloth Cutter Relationship Specialty Start Date End Date Anita Dumas PA [address] [place] [address] PCP - General 08/06/22
--- OUTSIDE RECORDS SUMMARY | 2024-10-25 20:20 | XMS_ITS | Encounter Summary ---
Author Organization [employer] Address [address] [place] [address] Care Team Providers Care Podiatric Technician Name Role Phone Unavailable Primary Care Provider Unavailabl e Encounter Details Date Type Department Care Team (Late st Contact Info) Description 06/01/2019 Transcribed Document [facility] Family Medicine [address] [place] [address] ProviderMelanie MD [facility] [place], [place] [address] Social History Tobacco Use Types Packs/Day Years Used Date Smoking Tobacco: Never Assessed Sex and Gender Information Value Date Recorded Sex Assigned at Not on file Legal Sex Male 4:07 PM CDT Gender Identity Not on file Sexual Orientation Not on file documented as of this encounter Miscellaneous Notes * Cerner Conversion Note - Melanie Grider MD - 06/01/2019 4:58 PM TROLLEY COLLECTOR Patient Education Materials Follows: Negative Pressure Wound Therapy What is negative pressure wound therapy? Negative pressure wound therapy (NPWT) is a device that helps your wounds heal. NPWT helps your wound stay clean and healthy while it heals from the inside. NPWT uses a bandage (dressing) that is made of a sponge or gauze-like material. This dressing is placed on or inside the wound. The wound is then covered and sealed with a cover dressing that sticks to your skin (adhesive). This keeps air out. A tube connects the cover dressing to a small pump. The pump sucks fluid and germs from the wound. The pump also controls any odor coming from the wound. What are the benefits of NPWT? The benefits of NPWT may include: ??? Faster healing. ??? Lower risk of infection. ??? Decrease in swelling and how much fluid is in the wound. ??? Fewer dressing changes. ??? Ability to treat your wound at home. ??? [facility] hospital stay. ??? Less pain. What are the risks of NPWT? NPWT is usually safe to use. The most common problem is skin irritation from the dressing adhesive, but there are many ways to help prevent this from happening. However, more serious problems can develop, such as: ??? Bleeding. ??? Infection. ??? Dehydration. ??? Pain. What do I need to do to care for my wound? Do not take off the dressing yourself unless told to do so by your health care provider. ??? Keep all follow-up visits as told by your health care provider. This is important. ??? Make sure you know how to change your dressing, if you will be doing this at home. ??? Keep the area clean and dry. ??? Ask your health care provider for the best way to protect your skin from becoming irritated by the adhesive. What do I need to know about the pump? Do not turn off the pump yourself unless told to do so by your health care provider, such as for bathing. ??? Do not turn off the pump for more than two hours. If the pump is off for more than two hours, the dressing will need to be changed. ??? If your health care provider says it is okay to shower: ? Do not take the pump into the shower. ? Make sure the wound dressing is protected and sealed. The wound area must stay dry. ??? Check frequently that the machine is on, that the machine indicates the therapy is on, and that all clamps are open. ??? If the alarm sounds: ? Stay calm. ? Do not turn off the pump or do anything with the dressing. ? Call your health care provider right away if you cannot fix the problem. The alarm may go off because the battery is low, the dressing has a leak, or the fluid collection container is full. ? Explain to your health care provider what is happening. Follow his or her instructions. When should I seek medical care? Seek medical care if: ??? You have new pain. ??? You develop irritation, a rash, or itching around the wound or dressing. ??? You see new black or yellow tissue in your wound. ??? The dressing changes are painful or cause bleeding. ??? The pump has been off for more than two hours and you do not know how to change the dressing. ??? The pump alarm goes off and you do not know what to do. When should I seek immediate medical care? Seek immediate medical care if: ??? You have a lot of bleeding. ??? You see a sudden change in the color or texture of the drainage. ??? The wound breaks open. ??? You have severe pain. ??? You have signs of infection, such as: ? More redness, swelling, or pain. ? More fluid or blood. ? Warmth. ? Pus or a bad smell. ? Red streaks leading from wound. ? A fever. This information is not intended to replace advice given to you by your health care provider. Make sure you discuss any questions you have with your health care provider. Document Released: 04/16/2009 Document Revised: 03/31/2017 Document Reviewed: 02/07/2016 [employer] Interactive Patient Education ? 2019 [employer] Negative Pressure Wound Therapy Dressing Care Negative pressure wound therapy (NPWT) is a device that helps wounds heal. NPWT helps the wound stay clean and healthy while it heals from the inside. NPWT uses a bandage (dressing) that is made of a sponge or gauze-like material. The dressing is placed in or inside the wound. The wound is then covered and sealed with a cover dressing that sticks to your skin (adhesive). This keeps air out. A tube connects the cover dressing to a small pump. The pump sucks fluid and germs from the wound. The pump also controls any odor coming from the wound. What are the risks? NPWT is usually safe to use. The most common problem is skin irritation from the dressing adhesive, but there are many ways to prevent this from happening. However, more serious problems can develop, such as: ??? Bleeding. ??? Infection. ??? Dehydration. ??? Pain. How to change your dressing How often you change your dressing depends on your wound. If the pump is off for more than two hours, the dressing will need to be changed. Follow your health care provider?s instructions on how often to change it. Your health care provider may change your dressing, or a family member, friend, or caregiver may be shown how to change the dressing. It is important to: ??? Wear gloves and protective clothing while changing a dressing. This may include eye protection. ??? Never let anyone change your dressing if he or she has an infection, skin condition, or skin wound or cut of any size. Preparing to change your dressing ??? If needed, take pain medicine 30 minutes before the dressing change as prescribed by your health care provider. ??? Set up a clean station for wound care. You will need: ? A disposable garbage bag that is open and ready to use. ? Hand adjunct psychology faculty member. ? Wound cleanser or saltwater solution (saline) as told by your health care provider. ? New dressing material or bandages. Make sure to open the dressing package so that the dressing remains on the inside of the package. You may also need the following in your clean station: ??? A box of vinyl gloves. ??? Tape. ??? Skin protectant. This may be a wipe, film, or spray. ??? Clean or germ-free (sterile) scissors. ??? Wound liner. ??? Cotton tip applicators. Removing your old dressing ??? Wash your hands with soap and water. Dry your hands with a clean towel. If soap and water are not available, use hand adjunct psychology faculty member. ??? Put on gloves. ??? Turn off the pump and disconnect the tubing from the dressing. ??? Carefully remove the adhesive cover dressing in the direction of your hair growth. Only touch the outside edges of the dressing. ??? Remove the dressing that is inside the wound. If the dressing sticks, use a wound cleanser or saline solution to wet the dressing. This helps it come off more easily. ??? Throw the old dressing supplies into the ready garbage bag. ??? Remove your gloves by grabbing the cuff and turning the glove inside out. Place the gloves in the trash immediately. ??? Wash your hands with soap and water. Dry your hands with a clean towel. If soap and water are not available, use hand adjunct psychology faculty member. Cleaning your wound ??? Follow your health care provider's instructions on how to clean your wound. This may include using a saline or recommended wound cleanser. ??? Do not use [id number] medicated or antiseptic creams, sprays, liquids, or dressings unless told to do so by your health care provider. ??? Clean the area thoroughly with the recommended saline solution or wound cleanser and a clean gauze pad. ??? Throw the gauze pad into the garbage bag. ??? Wash your hands with soap and water. Dry your hands with a clean towel. If soap and water are not available, use hand adjunct psychology faculty member. Applying the dressing ??? Apply a skin protectant to any skin that will be exposed to adhesive. Let the skin protectant dry. ??? Put a new dressing into the wound. ??? Apply a new cover dressing and tube. ??? Take off your gloves. Put them in the plastic bag with the old dressing. Tie the bag shut and throw it away. ??? Wash your hands with soap and water. Dry your hands with a clean towel. If soap and water are not available, use hand adjunct psychology faculty member. ??? Attach the suction and turn the pump back on. Do not change the settings on the machine without talking to a health care provider. ??? Replace the container in the pump that collects fluid if it is full. Do this at least once a week. Contact a health care provider if: ??? You have new pain. ??? You develop irritation, a rash, or itching around the wound or dressing. ??? You see new black or yellow tissue in your wound. ??? The dressing changes are painful or cause bleeding. ??? The pump has been off for more than two hours and you do not know how to change the dressing. ??? The alarm for the pump goes off and you do not know what to do. Get help right away if: ??? You have a lot of bleeding. ??? You see a sudden change in the color or texture of the drainage. ??? The wound breaks open. ??? You have severe pain. ??? You have signs of infection, such as: ? More redness, swelling, or pain. ? More fluid or blood. ? Warmth. ? Pus or a bad smell. ? Red streaks leading from wound. ? A fever. This information is not intended to replace advice given to you by your health care provider. Make sure you discuss any questions you have with your health care provider. Document Released: 07/26/2012 Document Revised: 05/29/2016 Document Reviewed: 02/07/2016 [employer] Interactive Patient Education ? 2019 [employer] documented in this encounter Plan of Treatment Not on file documented as of this encounter Visit Diagnoses Not on filedocumented in this encounter
--- OUTSIDE RECORDS SUMMARY | 2024-10-25 20:20 | XMS_ITS | Encounter Summary ---
Author Organization [employer] Address [address] [place] [address] Care Team Providers Care Claims Adjuster Supervisor Name Role Phone Unavailable Primary Care Provider Unavailabl e Encounter Details Date Type Department Care Team (Late st Contact Info) Description 06/28/2019 Transcribed Document [facility] [facility] Medicine [address] [place] [address] ProviderMelanie MD [address] [place] [id number] Social History Tobacco Use Types Packs/Day Years Used Date Smoking Tobacco: Never Assessed Sex and Gender Information Value Date Recorded Sex Assigned at Not on file Legal Sex Male 4:07 PM CDT Gender Identity Not on file Sexual Orientation Not on file documented as of this encounter Miscellaneous Notes * Cerner Conversion Note - Historical ProviderMD - 06/28/2019 11:30 AM [facility] Event Note Entered On: 06/29/2019 0:07 EST Performed On: 06/28/2019 11:30 EST by KEN REBOLLEDO ED Event Note ED Event Date/Time : 06/28/2019 11:30 EST ED Description of Event : pt requesting pain medication, refused Ibuprofen. MD Jackson aware. KEN REBOLLEDO - 06/29/2019 0:06 EST Electronically signed by Angel [facility] Conversion Can Filling Room Sweeper Cerner at 09/05/2022 2:30 PM CDT documented in this encounter Plan of Treatment Not on file documented as of this encounter Visit Diagnoses Not on filedocumented in this encounter
--- OUTSIDE RECORDS SUMMARY | 2024-10-25 20:20 | XMS_ITS | Encounter Summary ---
Author Organization [employer] Address [address] [place] [address] Care Team Providers Care Purchasing Agent Name Role Phone Unavailable Primary Care Provider Unavailabl e Encounter Details Date Type Department Care Team (Late st Contact Info) Description 05/29/2019 Transcribed Document [facility] [place] [address] [place] [address] ProviderMelanie MD [address] [place] [id number] Social History Tobacco Use Types Packs/Day Years Used Date Smoking Tobacco: Never Assessed Sex and Gender Information Value Date Recorded Sex Assigned at Not on file Legal Sex Male 4:07 PM CDT Gender Identity Not on file Sexual Orientation Not on file documented as of this encounter Miscellaneous Notes * Cerner Conversion Note - Melanie ProviderMD - 05/29/2019 8:05 AM REPULPING SUPERVISOR Patient: TERRI MOREL Age: 59 years Sex: Male : 1960 Associated Diagnoses: None Author: GUILLERMO SCOTT MD-INT Basic Information SUBJECTIVE: Patient is seen and evaluated scrotal; swelling Scrotal pain Review of Systems Constitutional: No fever, No chills. Eye: No recent visual problem, No icterus, No blurring, No visual disturbances. Ear/Nose/Mouth/Throat: No decreased hearing, No sore throat. Respiratory: No shortness of breath, No cough. Cardiovascular: No chest pain, No palpitations, No syncope. Gastrointestinal: No nausea, No vomiting, No hematemesis. Genitourinary: No dysuria, No hematuria. Hematology/Lymphatics: No bleeding tendency, No swollen lymph glands. Endocrine: No cold intolerance, No heat intolerance. Musculoskeletal: No joint pain, No muscle pain. Integumentary: Breakdown, No rash, No pruritus. Neurologic: No confusion, No numbness. Psychiatric: No depression, Not delusional. Health Status Allergies: Allergic Reactions (Selected) No Known Allergies, No qualifying data available Current medications: (Selected) Inpatient Medications Ordered DULoxetine: 60 mg, Oral, Daily Dilaudid: 1 mg, IV Push, Q4H, PRN: Pain (Severe 7-10) DuoNeb 0.5 mg-2.5 mg/3 mL inhalation solution: 3 mL, Nebulized Inhalation, RT_Q3H, PRN: Shortness of Breath Lipitor: 10 mg, Oral, At Bedtime NIFEdipine: 90 mg, Oral, Daily Pepcid: 20 mg, Oral, BID Percocet 10/325 oral tablet: 1 Tab, Oral, Q4H, PRN: Pain (Moderate 4-6) Phenergan: 12.5 mg, IV Push, Q4H, PRN: Nausea/Vomiting Restoril: 30 mg, Oral, At Bedtime, PRN: Sleep Sodium Chloride 0.45% intravenous solution 1,000 mL: 75 mL/Hr, IntraVENous, Stop: 05/30/19 12:48:00 EST Tylenol: 650 mg, Oral, Q4H, PRN: Pain (Mild 1-3) Zofran: 4 mg, IV Push, Q4H, PRN: Nausea/Vomiting Zosyn + Sodium Chloride 0.9% intravenous solution 100 mL: 3.375 Gram, 33.33 mL/Hr, IV Piggyback, Q6HInt carvedilol: 25 mg, Oral, BID cloNIDine: 0.1 mg, Oral, Q3H, PRN: Hypertension cyclobenzaprine: 10 mg, Oral, BID, PRN: Spasms desipramine: 25 mg, Oral, At Bedtime hydrALAZINE: 10 mg, IV Push, Q3H, PRN: Hypertension hydroCHLOROthiazide: 12.5 mg, Oral, Daily influenza virus vaccine, inactivated: 0.5 mL, IntraMuscular, [id number] insulin regular sliding scale: Scale D, SubCutaneous, Q6H lactobacillus acidophilus: 1 Cap, Oral, BID lisinopril: 10 mg, Oral, Daily vancomycin + Sodium Chloride 0.9% intravenous solution 250 mL: 1,500 mg, 250 mL/Hr, IV Piggyback, [id number] Documented Medications Documented Aspir 81: mg, Oral, Daily, 0 Refill(s) DULoxetine: 60 mg, Oral, Daily, 0 Refill(s) Farxiga 10 mg oral tablet: Tab, Oral, Daily, 0 Refill(s) Janumet 50 mg-1000 mg oral tablet: 1 Tab, Oral, BID, 60 Tab, 0 Refill(s) NIFEdipine 90 mg oral tablet, extended release: Tab, Oral, Daily, 0 Refill(s) carvedilol 25 mg oral tablet: 1 Tab, Oral, BID, 180 Tab, 0 Refill(s) cyclobenzaprine 10 mg oral tablet: 1 Tab, Oral, BID, PRN: as needed for spasm, 30 Tab, 0 Refill(s) desipramine 25 mg oral tablet: 1 Tab, Oral, At Bedtime, 90 Tab, 0 Refill(s) hydroCHLOROthiazide-lisinopril 12.5 mg-10 mg oral tablet: 1 Tab, Oral, Daily, 30 Tab, 0 Refill(s) lovastatin 40 mg oral tablet: Tab, Oral, Daily, 0 Refill(s) omeprazole: 40 mg, Oral, Daily, 0 Refill(s), Medications (24) Active Scheduled: (13) atorvastatin 10 mg tab 10 mg 1 Tab, Oral, At Bedtime carvedilol 25 mg tab 25 mg 1 Tab, Oral, BID desipramine 25 mg tab 25 mg 1 Tab, Oral, At Bedtime DULoxetine DR 30 mg cap 60 mg 2 Cap, Oral, Daily famotidine 20 mg tab 20 mg 1 Tab, Oral, BID hydrochlorothiazide 25 mg tab 12.5 mg 0.5 Tab, Oral, Daily influenza vaccine, quadrivalent 0.5 mL, IntraMuscular, [id number] insulin regular 1 unit/0.01 mL inj 3mL Scale D, SubCutaneous, Q6H lactobacillus acidophilus cap 1 Cap, Oral, BID lisinopril 10 mg tab 10 mg 1 Tab, Oral, Daily NIFEdipine ER 90 mg tab 90 mg 1 Tab, Oral, Daily piperacillin-tazobactam + NaCl 0.9% 100 mL 3.375 Gram, IV Piggyback, Q6HInt vancomycin + NaCl 0.9% 250 mL 1,500 mg, IV Piggyback, [id number] Continuous: (1) NaCl 0.45% 1,000 mL 1,000 mL, IntraVENous, 75 mL/Hr PRN: (10) acetaminophen 325 mg tab 650 mg 2 Tab, Oral, Q4H acetaminophen/oxyCODONE 325/10 mg tab 1 Tab, Oral, Q4H albuterol-ipratropium inh 3 mL 3 mL, Nebulized Inhalation, RT_Q3H cloNIDine 0.1 mg tab 0.1 mg 1 Tab, Oral, Q3H cyclobenzaprine 10 mg tab 10 mg 1 Tab, Oral, BID hydrALAZINE 20 mg/1 mL inj 10 mg 0.5 mL, IV Push, Q3H HYDROmorphone 1 mg/1 mL inj 1 mg 1 mL, IV Push, Q4H ondansetron 4 mg/2 mL inj 4 mg 2 mL, IV Push, Q4H promethazine 25 mg/1 mL inj 12.5 mg 0.5 mL, IV Push, Q4H temazepam 15 mg cap 30 mg 2 Cap, Oral, At Bedtime Problem list: Medical History of obstructive sleep apnea / IMO [id number] / Confirmed, Active Problems (1) History of obstructive sleep apnea OBJECTIVE: Physical Examination VS/Measurements Vitals Signs (last 24 hrs) Last Charted Minimum Maximum Temp 97.7 (MAY 29:00) 97.7 (MAY 29:) 98.6 (MAY 28:16) Mon HR 71 (MAY 29 11:00) 66 (MAY 29 06:30) 72 (MAY 29 04:00) Periph HR 82 (MAY 29 00:00) 75 (MAY 28 18:16) 82 (MAY 29 00:00) Resp Rate 18 (MAY 29:00) 16 (MAY 29 04:00) 18 (MAY 28 18:16) SBP H 180 (MAY 29:00) H 143 (MAY 28 23:24) H 180 (MAY 29:00) DBP H 107 (MAY 29 11:00) 76 (MAY 28 23:24) H 107 (MAY 29 11:00) MAP 132 (MAY 29 11:00) 129 (MAY 29 04:00) 132 (MAY 29 11:00) SpO2 97 (MAY 29 11:00) 95 (MAY 29 04:00) 100 (MAY 28 18:16) General: Alert and oriented, No acute distress. Eye: Extraocular movements are intact, Normal conjunctiva. Sclera: Not icteric. HENT: Normocephalic, Normal hearing, Oral mucosa is moist. Neck: Supple, Non-tender, No jugular venous distention, No lymphadenopathy. Respiratory: Lungs are clear to auscultation, Respirations are non-labored, Breath sounds are equal, Symmetrical chest wall expansion. Cardiovascular: Normal rate, Regular rhythm, No murmur, No gallop, Good pulses equal in all extremities, No edema. Gastrointestinal: Soft, Non-tender, Non-distended, Normal bowel sounds, No organomegaly. Genitourinary: No costovertebral angle tenderness. Lymphatics: No lymphadenopathy neck, axilla, groin. Musculoskeletal: Normal range of motion, Normal strength, No tenderness, No swelling, No deformity. Integumentary: Warm, [place], Moist, No rash, scrotal ulcer in the middle with redness . Neurologic: Alert, Oriented, Normal motor function. Psychiatric: Cooperative, Appropriate mood & affect, Normal judgment. Review / Management Results review: Labs (Last four charted values) WBC 7.2 (MAY 29) 8.3 (MAY 28) HB L 13.0 (MAY 29) 14.8 (MAY 28) HCT 41.9 (MAY 29) 46.5 (MAY 28) Plt 183 (MAY 29) 226 (MAY 28) Na 139 (MAY 29) 140 (MAY 28) K L 3.0 (MAY 29) 3.7 (MAY 28) Cl 105 (MAY 29) 108 (MAY 28) CO2 29 (MAY 29) 27 (MAY 28) BUN 7 (MAY 29) 12 (MAY 28) Cr 0.70 (MAY 29) 0.80 (MAY 28) Glu R H 150 (MAY 29) H 200 (MAY 28) Ca 9.0 (MAY 29) 9.6 (MAY 28) Lactic 2.0 (MAY 28) PT 10.7 (MAY 28) INR 1.0 (MAY 28) PTT 27.1 (MAY 28) AST 20 (MAY 28) ALT 19 (MAY 28) ALK P 93 (MAY 28) T Bili 0.3 (MAY 28) PTN 8.2 (MAY 28) ALB 3.8 (MAY 28) , MAY 29 08:14 139 105 7 / H 150 L 3.0 29 0.70 \ MAY 29 08:14 \ L 13.0 / 7.2 183 / 41.9 \, Radiology Results (Last 48 hours) [id number] -- 05/28/2019 20:28 CR Chest 1 Vw Portable (05/28/2019 21:15) Result: PORTABLE CHEST HISTORY: Abscess.COMPARISON: September 14, 2012.FINDINGS: Cardiomegaly is noted. Post operative changes are seen frommedian sternotomy.There are mild bibasilar opacities consistent withatelectasis or pneumonia. There is no pneumothorax. There are severalchronic rib fractures. IMPRESSION: Mild bibasilar atelectasis or pneumonia. . Impression and Plan Scrotal cellulitis: I ordered blood cultures X 2 I ordered urine culture and sensitivities A fluid bolus was given in the ED I placed the patient on IV Zosyn and IV vancomycin I placed a consult to infectious disease Scrotal abscess: I ordered scrotal ultrasound and contents I will start IV Zosyn and IV vancomycin Scrotal ulcer: Local wound care S/P Left Hydrocelectomy on 04/04/[address] Claudy Pro I placed a consult to urology large [...] cigarettes daily currently, down topical solution daily placed on nicotine patch tobacco cessation counseling was given Gastrointestinal ( GI ) prophylaxis : I started the patient on Pepcid and Florastor DEEP VEIN THROMBOSIS ( DVT ) prophylaxis: I placed the patient on sequential compression devices ( Compression Boots ) while in bed. patient is ambulatory Unable to start heparin or Lovenox secondary to scrotal hematoma CODE STATUS: FULL code. PLAN: For Surgery per Urology today Keep NPO Continue IV Zosyn and Vancomycin pending ID evaluation I repaved KCL for hypokalemia will check mag and phos level in Am I resumed Home Antihypertensives I discussed with the patient and his at the bedside test results and treatment plans TIME SPENT : 35 minutes documented in this encounter Plan of Treatment Not on file documented as of this encounter Visit Diagnoses Not on filedocumented in this encounter
--- OUTSIDE RECORDS SUMMARY | 2024-10-25 20:20 | XMS_ITS | Encounter Summary ---
Author Organization [employer] Address [address] [place] [address] Care Team Providers Care Manager Bar Name Role Phone Unavailable Primary Care Provider Unavailabl e Encounter Details Date Type Department Care Team (Late st Contact Info) Description 06/01/2019 Transcribed Document [facility] [place] Family Medicine [address] [place] [address] ProviderMelanie MD [facility] [address] Social History Tobacco Use Types Packs/Day Years Used Date Smoking Tobacco: Never Assessed Sex and Gender Information Value Date Recorded Sex Assigned at Not on file Legal Sex Male 4:07 PM CDT Gender Identity Not on file Sexual Orientation Not on file documented as of this encounter Miscellaneous Notes * Cerner Conversion Note - Historical ProviderMD - 06/01/2019 4:51 PM TALENT DEVELOPMENT CONSULTANT Nursing Discharge Summary Entered On: 06/01/2019 16:51 EST Performed On: 06/01/2019 16:51 EST by SERVANDO BARILLAS water restoration technician Documentation Discharge Date/Time : 06/01/2019 18:00 EST Patient Disposition, General : Discharge Discharge To : Home with ambulatory/outpatient follow-up Mode Of Departure, General Discharge : Wheelchair with adult Accompanied By, Discharge : Spouse IV Discontinued : Yes Personal Belongings With Patient : Yes Prescriptions Given to Patient : Yes Discharge Instructions Reviewed With, Opportunity For Questions Given : Patient, Spouse Patient Education Completed : Yes Number of Prescriptions Given : 4 Teaching Method : Explanation, Printed materials Teaching Evaluation : Verbalizes understanding SERVADNO BARILLAS, RN - 06/01/2019 16:51 EST Electronically signed by Angel [facility] Conversion News Analyst Cerner at 09/05/2022 2:04 PM CDT documented in this encounter Plan of Treatment Not on file documented as of this encounter Visit Diagnoses Not on filedocumented in this encounter
--- OUTSIDE RECORDS SUMMARY | 2024-10-25 20:20 | XMS_ITS | Encounter Summary ---
Author Organization [employer] Address [address] [place] [id number] Care Team Providers Care [employer] Name Role Phone Unavailable Primary Care Provider Unavailabl e Encounter Details Date Type Department Care Team (Late st Contact Info) Description 05/29/2019 Transcribed Document [facility] [place] [facility] [address] [place] [address] ProviderMelanie MD [facility] [place] [address] Social History Tobacco Use Types Packs/Day Years Used Date Smoking Tobacco: Never Assessed Sex and Gender Information Value Date Recorded Sex Assigned at Not on file Legal Sex Male 4:07 PM CDT Gender Identity Not on file Sexual Orientation Not on file documented as of this encounter Miscellaneous Notes * Cerner Conversion Note - Historical ProviderMD - 05/29/2019 5:00 PM [employer]PERATOR Chart Check - Review Order Profile Entered On: 05/29/2019 16:57 EST Performed On: 05/29/2019 17:00 EST by JANN JOSEPH RN Chart Check Powerplans Initiated/Discontinued as Appropriate : Yes All Active Orders Reviewed : Yes JANN JOSEPH RN - 05/29/2019 16:57 EST Electronically signed by Angel [facility] Conversion Sizing Sponger [place] at 09/05/2022 2:06 PM CDT documented in this encounter Plan of Treatment Not on file documented as of this encounter Visit Diagnoses Not on filedocumented in this encounter
--- OUTSIDE RECORDS SUMMARY | 2024-10-25 20:20 | XMS_ITS | Data Portability ---
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 Complete course [...] Augmentin 875 mg-125 mg tablet 2019 020 [facility] #[id number], [address] [place], [id number], 1 11:00:44 Percocet 5 mg-325 mg tablet 2019 020 [facility] #[id number], [address] [place], [id number], 1 11:02:37 Augmentin 875 mg-125 mg tablet 2019 020 [facility] #[id number], [address] [place], [id number], 1 11:00:44 Percocet 5 mg-325 mg tablet 2019 020 [facility] #[id number], [address], [id number], 1 11:02:37 Patient TargetsNo targets recorded. Patient InstructionsNo instructions recorded. Reason for Referral None Reported. Results Created Date Observation Date Name Description Value Unit Range Abnormal Flag Note LastModifiedBy Organization Detail LastModifiedTime 05/16/2005/16/2019 urina lysis , dipst ick, auto Unknown Analyte Yellow Not Available [facility] [address] [place], [address], 05/16/2019 07:54:25 05/16/2005/16/2019 urina lysis , dipst ick, auto Unknown Analyte Clear Not Available [facility] [address] [place], [address], 05/16/2019 07:54:25 05/16/20 19 05/16/2019 urina lysis , dipst ick, auto Unknown Analyte 1.015 Not Available [facility] [place], [address], 05/16/2019 07:54:25 05/16/2005/16/2019 urina lysis , dipst ick, auto Unknown Analyte 1.003 - 1.035 Not Available [facility] [address] [place], [address], 05/16/2019 07:54:25 05/16/20 19 05/16/2019 urina lysis , dipst ick, auto Unknown Analyte 5.0 Not Available [facility] [address] [place], [address], 05/16/2019 07:54:25 05/16/2005/16/2019 urina lysis , dipst ick, auto Unknown Analyte 5.0 - 8.0 Not Available [facility] [address] [place] [address], [address], 05/16/2019 07:54:25 05/16/2005/16/2019 urina lysis , dipst ick, auto Unknown Analyte Negati ve Not Available [facility] [address] [place] [address], [address], 05/16/2019 07:54:25 05/16/2005/16/2019 urina lysis , dipst ick, auto Unknown Analyte Negati ve Not Available [facility] [address] [place] [address], [address], 05/16/2019 07:54:25 05/16/2005/16/2019 urina lysis , dipst ick, auto Unknown Analyte Negati ve Not Available [facility] [address] [place] [address], [address], 05/16/2019 07:54:25 05/16/2005/16/2019 urina lysis , dipst ick, auto Unknown Analyte Negati ve Not Available [facility] [address] [place], [address], 05/16/2019 07:54:25 05/16/2005/16/2019 urina lysis , dipst ick, auto Unknown Analyte Negtiv e Not Available [facility] [address] [place] [address], [address], 05/16/2019 07:54:25 05/16/2005/16/2019 urina lysis , dipst ick, auto Unknown Analyte Negati ve - Trace Not Available [facility] [address] [place] [address], [address], 05/16/2019 07:54:25 05/16/2005/16/2019 urina lysis , dipst ick, auto Unknown Analyte Normal Not Available [facility] [address] [place] [address], [address], 05/16/2019 07:54:25 05/16/2005/16/2019 urina lysis , dipst ick, auto Unknown Analyte Normal Not Available [facility] [address] [place] [address], [address], 05/16/2019 07:54:25 05/16/2005/16/2019 urina lysis , dipst ick, auto Unknown Analyte Negati ve Not Available [facility] [address] [place] [address], [address], 05/16/2019 07:54:25 05/16/2005/16/2019 urina lysis , dipst ick, auto Unknown Analyte Negati ve Not Available [facility] [address] [place] [address], [address], 05/16/2019 07:54:25 05/16/2005/16/2019 urina lysis , dipst ick, auto Unknown Analyte Normal Not Available [facility] [place], [address], 05/16/2019 07:54:25 05/16/20 19 05/16/2019 urina lysis , dipst ick, auto Unknown Analyte Normal - 1mg/dl Not Available [facility] [address] [place] [address], [address], 05/16/2019 07:54:25 05/16/2005/16/2019 urina lysis , dipst ick, auto Unknown Analyte Negati ve Not Available [facility] [address] [place] [address], [address], 05/16/2019 07:54:25 05/16/2005/16/2019 urina lysis , dipst ick, auto Unknown Analyte Negati ve Not Available [facility] [address] [place] [address], [address], 05/16/2019 07:54:25 05/16/2005/16/2019 urina lysis , dipst ick, auto Unknown Analyte Negati ve Not Available [facility] [address] [place] [address], [address], 05/16/2019 07:54:25 05/16/20 19 05/16/2019 urina lysis , dipst ick, auto Unknown Analyte Negati ve Not Available [facility] [address] [place] [address], [address], 05/16/2019 07:54:25 05/16/20 19 05/16/2019 urina lysis , dipst ick, auto Unknown Analyte Clean Catch Not Available [facility] [address] [place], [address], 05/16/2019 07:54:25 05/16/20 19 05/16/2019 urina lysis , dipst ick, auto Unknown Analyte Automa carlos Not Available [facility] [address] [place] [address], [address], 05/16/2019 07:54:25 05/24/1905/24/2019 urina lysis , dipst ick, auto Unknown Analyte Yellow Not Available [facility] [address] [place] [address], [address], 05/24/2019 10:02:15 05/24/19 20 05/24/2019 urina lysis , dipst ick, auto Unknown Analyte Clear Not Available [facility] [address] [place] [address], [address], 05/24/2019 10:02:15 05/24/1905/24/2019 urina lysis , dipst ick, auto Unknown Analyte 1.010 Not Available [facility] [address] [place] [address], [address], 05/24/2019 10:02:15 05/24/1905/24/2019 urina lysis , dipst ick, auto Unknown Analyte 1.003 - 1.035 Not Available [address], [address], 05/24/2019 10:02:15 05/24/19 20 05/24/2019 urina lysis , dipst ick, auto Unknown Analyte 5.0 Not Available [facility] [address], [address], 05/24/2019 10:02:15 05/24/1905/24/2019 urina lysis , dipst ick, auto Unknown Analyte 5.0 - 8.0 Not Available [facility] [address], [address], 05/24/2019 10:02:15 05/24/1905/24/2019 urina lysis , dipst ick, auto Unknown Analyte Negati ve Not Available [facility] [address], [address], 05/24/2019 10:02:15 05/24/19 20 05/24/2019 urina lysis , dipst ick, auto Unknown Analyte Negati ve Not Available [facility] [address] [place] [address], [address], 05/24/2019 10:02:15 05/24/19 20 05/24/2019 urina lysis , dipst ick, auto Unknown Analyte Negati ve Not Available [facility] [address] [place] [address], [address], 05/24/2019 10:02:15 05/24/19 20 05/24/2019 urina lysis , dipst ick, auto Unknown Analyte Negtiv e Not Available [facility] [address], [address], 05/24/2019 10:02:15 05/24/19 20 05/24/2019 urina lysis , dipst ick, auto Unknown Analyte Negati ve - Trace Not Available [facility] [address], [address], 05/24/2019 10:02:15 05/24/19 20 05/24/2019 urina lysis , dipst ick, auto Unknown Analyte Normal Not Available [facility] [address] [place] [address], [address], 05/24/2019 10:02:15 05/24/19 20 05/24/2019 urina lysis , dipst ick, auto Unknown Analyte Normal Not Available [facility] [address] [place] [address], [address], 05/24/2019 10:02:15 05/24/19 20 05/24/2019 urina lysis , dipst ick, auto Unknown Analyte Negati ve Not Available [facility] [address], [address], 05/24/2019 10:02:15 05/24/19 20 05/24/2019 urina lysis , dipst ick, auto Unknown Analyte Negati ve Not Available [facility] [address] [place] [address], [address], 05/24/2019 10:02:15 05/24/19 20 05/24/2019 urina lysis , dipst ick, auto Unknown Analyte Normal Not Available [facility] [address] [place] [address], [address], 05/24/2019 10:02:15 05/24/19 20 05/24/2019 urina lysis , dipst ick, auto Unknown Analyte Normal - 1mg/dl Not Available [facility] [address], [address], 05/24/2019 10:02:15 05/24/19 20 05/24/2019 urina lysis , dipst ick, auto Unknown Analyte Negati ve Not Available [facility] [address], [address], 05/24/2019 10:02:15 05/24/19 20 05/24/2019 urina lysis , dipst ick, auto Unknown Analyte Negati ve Not Available [facility] [address], [address], 05/24/2019 10:02:15 05/24/19 20 05/24/2019 urina lysis , dipst ick, auto Unknown Analyte Negati ve Not Available [facility] [address], [address], 05/24/2019 10:02:15 05/24/19 20 05/24/2019 urina lysis , dipst ick, auto Unknown Analyte Negati ve Not Available [facility] [address], [address], 05/24/2019 10:02:15 05/24/19 20 05/24/2019 urina lysis , dipst ick, auto Unknown Analyte Clean Catch Not Available [facility] [address] [place] [address], [address], 05/24/2019 10:02:15 05/24/19 20 05/24/2019 urina lysis , dipst ick, auto Unknown Analyte Visual Not Available [facility] [address] [place] [address], [address], 05/24/2019 10:02:15 06/06/19 20 06/06/2019 urina lysis , dipst ick, auto Unknown Analyte Yellow Not Available [facility] [address], [address], 06/06/2019 07:36:23 06/06/1906/06/2019 urina lysis , dipst ick, auto Unknown Analyte Clear Not Available [address], [address], 06/06/2019 07:36:23 06/06/19 20 06/06/2019 urina lysis , dipst ick, auto Unknown Analyte 1.005 Not Available [address], [address], 06/06/2019 07:36:23 06/06/19 20 06/06/2019 urina lysis , dipst ick, auto Unknown Analyte 6.0 Not Available [facility] [address], [address], 06/06/2019 07:36:23 06/06/19 20 06/06/2019 urina lysis , dipst ick, auto Unknown Analyte Negati ve Not Available [address], [address], 06/06/2019 07:36:23 06/06/19 20 06/06/2019 urina lysis , dipst ick, auto Unknown Analyte Negati ve Not Available [address], [address], 06/06/2019 07:36:23 06/06/19 20 06/06/2019 urina lysis , dipst ick, auto Unknown Analyte Negtiv e Not Available [facility] [address] [place], [address], 06/06/2019 07:36:23 06/06/1906/06/2019 urina lysis , dipst ick, auto Unknown Analyte 250 mg/dl Not Available [facility] [address] [place], [address], 06/06/2019 07:36:23 06/06/1906/06/2019 urina lysis , dipst ick, auto Unknown Analyte Negati ve Not Available [facility] [address] [place] [address], [address], 06/06/2019 07:36:23 06/06/19 20 06/06/2019 urina lysis , dipst ick, auto Unknown Analyte Normal Not Available [facility] [address] [place], [address], 06/06/2019 07:36:23 06/06/1906/06/2019 urina lysis , dipst ick, auto Unknown Analyte Negati ve Not Available [facility] [address] [place] [address], [address], 06/06/2019 07:36:23 06/06/1906/06/2019 urina lysis , dipst ick, auto Unknown Analyte Negati ve Not Available [facility] [address] [place] [address], [address], 06/06/2019 07:36:23 06/06/1906/06/2019 urina lysis , dipst ick, auto Unknown Analyte Clean Catch Not Available [facility] [address] [place] [address], [address], 06/06/2019 07:36:23 06/06/19 20 06/06/2019 urina lysis , dipst ick, auto Unknown Analyte Automa carlos Not Available [facility] [address], [address], 06/06/2019 07:36:23 06/29/19 20 06/29/2019 urina lysis , dipst ick, auto Unknown Analyte Yellow Not Available [facility] [address], [address], 06/29/2019 10:49:43 06/29/19 20 06/29/2019 urina lysis , dipst ick, auto Unknown Analyte Clear Not Available [facility] [address], [address], 06/29/2019 10:49:43 06/29/19 20 06/29/2019 urina lysis , dipst ick, auto Unknown Analyte 1.015 Not Available [facility] [address], [address], 06/29/2019 10:49:43 06/29/19 20 06/29/2019 urina lysis , dipst ick, auto Unknown Analyte 1.003 - 1.035 Not Available [address], [address], 06/29/2019 10:49:43 06/29/19 20 06/29/2019 urina lysis , dipst ick, auto Unknown Analyte 5.0 Not Available [facility] [address], [address], 06/29/2019 10:49:43 06/29/19 20 06/29/2019 urina lysis , dipst ick, auto Unknown Analyte 5.0 - 8.0 Not Available [address], [address], 06/29/2019 10:49:43 06/29/19 20 06/29/2019 urina lysis , dipst ick, auto Unknown Analyte Negati ve Not Available [facility] [address], [address], 06/29/2019 10:49:43 06/29/19 20 06/29/2019 urina lysis , dipst ick, auto Unknown Analyte Negati ve Not Available [facility] [address], [address], 06/29/2019 10:49:43 06/29/19 20 06/29/2019 urina lysis , dipst ick, auto Unknown Analyte Negati ve Not Available [facility] [address], [address], 06/29/2019 10:49:43 06/29/19 20 06/29/2019 urina lysis , dipst ick, auto Unknown Analyte Negati ve Not Available [facility] [address], [address], 06/29/2019 10:49:43 06/29/19 20 06/29/2019 urina lysis , dipst ick, auto Unknown Analyte Negtiv e Not Available [address], [address], 06/29/2019 10:49:43 06/29/19 20 06/29/2019 urina lysis , dipst ick, auto Unknown Analyte Negati ve - Trace Not Available [facility] [address], [address], 06/29/2019 10:49:43 06/29/19 20 06/29/2019 urina lysis , dipst ick, auto Unknown Analyte Normal Not Available [facility] [address], [address], 06/29/2019 10:49:43 06/29/19 20 06/29/2019 urina lysis , dipst ick, auto Unknown Analyte Normal Not Available [facility] [address] [place], [address], 06/29/2019 10:49:43 06/29/19 20 06/29/2019 urina lysis , dipst ick, auto Unknown Analyte Negati ve Not Available [facility] [address] [place] [address], [address], 06/29/2019 10:49:43 06/29/19 20 06/29/2019 urina lysis , dipst ick, auto Unknown Analyte Negati ve Not Available [facility] [address], [address], 06/29/2019 10:49:43 06/29/19 20 06/29/2019 urina lysis , dipst ick, auto Unknown Analyte Normal Not Available [facility] [address], [address], 06/29/2019 10:49:43 06/29/19 20 06/29/2019 urina lysis , dipst ick, auto Unknown Analyte Normal - 1mg/dl Not Available [facility] [address], [address], 06/29/2019 10:49:43 06/29/19 20 06/29/2019 urina lysis , dipst ick, auto Unknown Analyte Negati ve Not Available [facility] [address], [address], 06/29/2019 10:49:43 06/29/19 20 06/29/2019 urina lysis , dipst ick, auto Unknown Analyte Negati ve Not Available [facility] [address], [address], 06/29/2019 10:49:43 06/29/19 20 06/29/2019 urina lysis , dipst ick, auto Unknown Analyte Negati ve Not Available [facility] [address] [place], [address], 06/29/2019 10:49:43 06/29/19 20 06/29/2019 urina lysis , dipst ick, auto Unknown Analyte Negati ve Not Available [facility] [address] [place], [address], 06/29/2019 10:49:43 06/29/19 20 06/29/2019 urina lysis , dipst ick, auto Unknown Analyte Clean Catch Not Available [facility] [address] [place], [address], 06/29/2019 10:49:43 06/29/19 20 06/29/2019 urina lysis , dipst ick, auto Unknown Analyte Automa carlos Not Available [facility] [address] [place], [address], 06/29/2019 10:49:43 Result Notes None recorded. Problems Name Problem SNOMED Code Status Onset Date Resolution Date Notes Provider Name and Address Organization Details Recorded Time Mixed conductiv e AND sensorine ural hearing loss 15754989 Active 2015 From Automated Load;Prov ider: Dorian Hurd III tatus: Active Not Available [facility] 6 09:39:57 Otitis externa 1829307 Active 2015 Provider: Dorian Hurd III tatus: Active Not Available [facility] 6 09:39:57 Otitis externa of right ear 61164114109 41710 Active 2015 From Automated Load;Prov ider: Dorian Hurd III tatus: Active Not Available [facility] 6 09:39:57 Otorrhea 49417503 Active 2015 From Automated Load;Prov ider: Dorian Hurd III tatus: Active Not Available [facility] 6 09:39:57 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 Procedures Surgical History Date Name Laterality Status Provider Name and Address Organization Details Recorded Time 06/20/19 20 repair of scrotum completed CLAUDY LUQUE MD [address] [place] [address], [address], [facility] 06/20/2019 16:56:31 05/29/19 20 Scrotal surgery completed CLAUDY LUQUE MD [address] [place] [address], [address], [facility] 06/20/2019 16:57:39 Heart [facility] completed [facility] 02/08/2019 16:35:08 Hernia Repair completed CLAUDY LUQUE MD [address] [place] [address], [address], [facility] 04/04/2019 14:53:49 Orchiectomy completed CLAUDY LUQUE MD [address] [place] [address], [address], [facility] 04/04/2019 14:54:02 Hydrocele Repair completed CLAUDY LUQUE MD [address] [place] [address], [address], [facility] 04/04/2019 14:54:16 Mastoidectomy completed [facility] 12/14/2020 11:10:11 Imaging Results None recorded. Procedure Notes None recorded. Medical Equipment None Reported. Allergies Allergen ID Allergen Name Allergen Category Reaction Reaction Severity Criticality Documentation Date Start Date Code Code System Note Provider Name and Address Organization Details Recorded Time 137670 acetamino phen / oxycodone medicatio n nausea Not available Not available 02/08/2019 98210 3 RxNorm He can take 5 mg dose CLAUDY LUQUE MD [address] [place] [address] [place], [address], [facility] 9 15:06:12 982419 Bactrim medicatio n dizziness respirato ry distress Not available Not available Not available 02/11/2019 89403 9 RxNorm CLAUDY LUQUE MD [facility] [place], [address], [facility] 9 07:45:25 Medications Name Sig Start [...] ne propionat e 50 mcg/actua tion nasal spray,[facility] 12/14 completed Not Available Not Available Not Available metformin ER 500 mg tablet,ex tended release 24 hr 12/14 completed Not Available Not Available Not Available ezetimibe 10 mg tablet TAKE 1 TABLET BY MOUTH ONCE DAILY 12/14 completed Not Available Not Available Not Available Ciprodex 0.3 %-0.1 % ear drops,[facility] 02/08 completed Not Available Not [...] YOU DIDN T RECEIVE INSTRUCT IONS CALL [phone] 12/14 completed Not Available Not Available Not [...] Updated DateTime 05/24/2019 177.8 cm 33.9 kg/m2 154754.8 g 86 /min [facility] 05/24/2019 10:02:36 Date Recorded Body height Body mass index (BMI) Body weight Provider Name and Address Organization Details Last Updated DateTime 06/06/2019 177.8 cm 33.9 kg/m2 415242.8 g [facility] 06/06/2019 07:36:09 Date Recorded Body height Body mass index (BMI) Body weight Heart rate Provider Name and Address Organization Details Last Updated DateTime 06/13/2019 177.8 cm 33.9 kg/m2 999946.8 g 86 /min [facility] 06/13/2019 07:50:01 Date Recorded Body height Body mass index (BMI) Body weight Provider Name and Address Organization Details Last Updated DateTime 06/29/2019 177.8 cm 33.9 kg/m2 029782.8 g [facility] 06/29/2019 10:49:27 Date Recorded Body weight Body temperature Body mass index (BMI) Body height Heart rate Systolic blood pressure Diastolic blood pressure Provider Name and Address Organization Details Last Updated DateTime 1 99228.3 2 g 97.7 [degF] 31.6 kg/m2 177.8 cm 75 /min 131 mm[Hg] 69 mm[Hg] [facility] 1 11:09:26 Social History Question Answer Notes LastModified by Organizat ion Details LastModified Time Tobacco Smoking Status Current Every Day Smoker Janet [facility]aleza[facility] 12/14/2020 11:04:32 Marital Status Informatio n not [...] available 2018 16:34:41 Medical History Condition Response Coronary Artery Disease Y Pneumonia Y Diabetes Y Arthritis Y Stroke Y Sleep Disorder Y High Cholesterol Y Heart Disease Y Hypertension Y Past Encounters Encounter ID Performer Location Encounter Start Date Encounter Closed Date Diagnosis/Indication Diagnosis SNOMED-CT Code Diagnosis ICD10 Code Diagnosis Note [id number] CLAUDY LUQUE MD [facility] [address] [place] [address] 02/08/2019 15:22:29 02/09/2019 07:11:35 Epididymitis 16186022 N45.1 Hydrocele 65770912 N43.3 [id number] CLAUDY LUQUE MD [facility] [address] [place] [address] 03/01/2019 07:35:36 03/01/2019 08:32:45 Epididymitis 77917068 N45.1 Hydrocele 22690971 N43.3 [id number] CLAUDY LUQUE MD SURGERY SCHEDULE [address] [place] [address] 1 04/04/2019 11:38:23 04/04/2019 11:39:05 Hydrocele of testis 30300691 N43.3 [id number] CLAUDY LUQUE MD [facility] [address] [place] [address] 1 04/22/2019 07:42:36 04/22/2019 08:20:59 Epididymitis 53482618 N45.1 Hydrocele 67266487 N43.3 Hematoma of scrotum 8996 6002 M79.81 [id number] CLAUDY LUQUE MD [facility] [address] [place] [address] 1 05/16/2019 07:33:42 05/16/2019 08:55:46 Hydrocele 89985224 N43.3 Hematoma of scrotum 8996 6002 M79.81 Orchitis a nd epididymitis 364711788 N45.3 [id number] CLAUDY LUQUE MD [facility] [address] [place] [address] 1 05/24/2019 09:09:43 05/24/2019 10:36:10 Orchitis and epididymitis 060715003 N45.3 Hydrocele 62617199 N43.3 Hematoma of scrotum 8996 6002 M79.81 [id number] CLAUDY LUQUE MD [facility] [address] [place] [address] 1 06/06/2019 07:34:58 06/06/2019 08:50:46 Orchitis and epididymitis 479244257 N45.3 Abscess of scrotum 10041 006 N49.2 [id number] CLAUDY LUQUE MD [facility] [address] [place] [address] 1 06/13/2019 07:45:46 06/13/2019 08:18:58 Orchitis and epididymitis 035770328 N45.3 Abscess of scrotum 94045 006 N49.2 [id number] CLAUDY LUQUE MD SURGERY SCHEDULE [address] [place] [address] 1 06/20/2019 13:07:55 06/20/2019 13:09:42 Disorder of scrotum 02437873 N50.9 Orchitis a nd epididymitis 080319390 N45.3 [id number] CLAUDY LUQUE MD [facility]Y [facility] [address] [place] [address] 06/29/2019 10:43:58 06/29/2019 12:20:35 Orchitis and epididymitis 777306079 N45.3 Abscess of scrotum 33022 006 N49.2 Health Concerns Section Related Observation LastModified by Organization Detai ls LastModified Time None Recorded Concern Status LastModified by Organization Details LastModified Time None Recorded Advance Directives Directive None Recorded Payers Insurance Date Sequence Insurance Name Policy Number Policy Burkett Covered Member ID Burkett Member ID Guarantor Name 12/11/[address] (MEDICARE) Cristobal Vargas [id number] Cristobal Vargas 07/28/2018 1 *SELF PAY* [...] with Augmentin for epididymoorchitis. 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 He denies family history of prostate [...] trouble. He denies fever. CLAUDY LUQUE MD [address] [place] [address] [place], [phone], [facility] 05/24/2019 10:21:51 06/06/2019 text/html Diagnoses: Right [...] Augmentin for epididymo-orchitis. He was admitted to [facility] and underwent left scrotal exploration and debridement 05/29/2019. He subsequently had placement of a wound VAC. 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 CLAUDY LUQUE MD [address] [place] [address], [phone], [facility] 06/06/2019 08:34:31 06/13/2019 text/html Diagnoses: Right [...] urgency, dysuria, or decreased flow. He saw de and was prescribed Bactrim DS 02/08/2019, he had dizziness and shortness of breath after a few doses and was switched to Cipro 14 days. He underwent left hydrocelectomy 04/04/2019. This was complicated by scrotal hematoma and which opened spontaneously. They started wound packing 04/22/2019 and he was treated with Augmentin for epididymo-orchitis. He was admitted to [facility] and underwent left scrotal exploration and debridement 05/29/2019. He subsequently had placement of a wound VAC. 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 CLAUDY LUQUE MD [address] [place] [address], [phone], [facility] 06/13/2019 08:15:57 06/29/2019 text/html Diagnoses: Right [...] Augmentin for epididymo-orchitis. He was admitted to [facility] and underwent left scrotal exploration and debridement 05/29/2019. He subsequently had placement of a wound VAC. He underwent closure of the scrotal wound 06/20/2019. 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 HPI: The patient is here with his Angelic for follow-up after closure of the scrotal wound last week. He has been taking Augmentin. He is on chronic narcotics. He went to the emergency room last night for scrotal pain. He denies voiding trouble. CLAUDY LUQUE MD [facility] [place], [phone], [facility] 06/29/2019 11:32:37
--- OUTSIDE RECORDS SUMMARY | 2024-10-25 20:20 | XMS_ITS | Encounter Summary ---
Author Organization [employer] Address [address] [place] [address] Care Team Providers Care Manufacturing Manager Name Role Phone Unavailable Primary Care Provider Unavailabl e Encounter Details Date Type Department Care Team (Late st Contact Info) Description 05/30/2019 Transcribed Document [facility] [place] Family Medicine [address] [place] [address] ProviderMelanie MD [facility] [place] [id number] Social History Tobacco Use Types Packs/Day Years Used Date Smoking Tobacco: Never Assessed Sex and Gender Information Value Date Recorded Sex Assigned at Not on file Legal Sex Male 4:07 PM CDT Gender Identity Not on file Sexual Orientation Not on file documented as of this encounter Miscellaneous Notes * Cerner Conversion Note - Melanie ProviderMD - 05/30/2019 11:16 AM COMMUNICATIONS CONSULTANT Initial Discharge Planning Entered On: 05/30/2019 11:18 EST Performed On: 05/30/2019 11:16 EST by LYNDSEY GAY RN-Retail Bakery Manager Initial Assessment I Previously Documented Living Environment : No qualifying data available. LYNDSEY GAY RN-Retail Bakery Manager - 05/30/2019 11:19 EST Living Situation : Home Patient Lives With : Spouse Is the Patient a Caregiver at Home? : No Emergency Contact #1 : Nimisha Vargas Emergency Contact #1 Emergency Contact #1 Relationship : spouse Emergency Contact #2 : ` Emergency Contact #2 Phone Number : `` Emergency Contact #2 Relationship : ` Enter Doctors Name : José Elizabeth Does Patient have PCP Listed? : Yes Legal Guardian : No Is Guardianship Needed : No LYNDSEY GAY RN-Retail Bakery Manager - 05/30/2019 11:16 EST Initial Assessment II Sensory and Motor Deficits : None Current Home Treatments and Equipment : CPAP, Walker (Comment: Rollator [LYNDSEY GAY RN-Retail Bakery Manager - 05/30/2019 11:19 EST] ) Home Equipment Contact Information : [facility]AP provider [phone] Services and Community Resources : Home Health (Comment: Pt states that he was current with [facility] [LYNDSEY GAY RN-Retail Bakery Manager - 05/30/2019 11:19 EST] ) Does the Patient have a Floor to SNF Benefit? : Yes LYNDSEY GAY RN-Retail Bakery Manager - 05/30/2019 11:16 EST Discharge Needs I Anticipated Discharge Date : 05/31/2019 EST Anticipated Discharge To, CM : Home with home health Current Home Treatment/Equipment : Current Home Treatment/Equipment No qualifying data available. Post Acute/Home Treatments : None Documentation Status Complete : Yes LYNDSEY GAY RN-Retail Bakery Manager - 05/30/2019 11:16 EST Discharge Needs II Professional Skilled Services : Professional Skilled Services No qualifying data available. Needs Assistance with Transportation : No LYNDSEY GAY RN-Retail Bakery Manager - 05/30/2019 11:16 EST Narrative Note Narrative Note : Received from the ED due to scrotal pain and swelling, being admitted with scrotal abscess. On 05/29/19, Pt had a left scrotal exploration and debridement. Met with Pt and his , Nimisha, during MDR rounds. Role of CM explained. Pt states that he is ADL independent, has been doctoring this abscess at home, with MD following and assistance of HH for 8 weeks. Plans are to return home with his when discharged. Will need resumption of HH orders ([facility]). No other needs anticipated/verbalized at this time. RRS is low @ 39. CM will follow. LYNDSEY GAY RN-Retail Bakery Manager - 05/30/2019 11:19 EST documented in this encounter Plan of Treatment Not on file documented as of this encounter Visit Diagnoses Not on filedocumented in this encounter
--- OUTSIDE RECORDS SUMMARY | 2024-10-25 20:20 | XMS_ITS | Encounter Summary ---
Author Organization [employer] Address [address] [place] [id number] Care Team Providers Care Jumbo Operator Name Role Phone Unavailable Primary Care Provider Unavailabl e Encounter Details Date Type Department Care Team (Late st Contact Info) Description 05/31/2019 Transcribed Document [facility] [place] [address] [place] [address] ProviderMelanie MD [facility] [place] [address] Social History Tobacco Use Types Packs/Day Years Used Date Smoking Tobacco: Never Assessed Sex and Gender Information Value Date Recorded Sex Assigned at Not on file Legal Sex Male 4:07 PM CDT Gender Identity Not on file Sexual Orientation Not on file documented as of this encounter Miscellaneous Notes * Cerner Conversion Note - Historical ProviderMD - 05/31/2019 5:00 AM VENDING MACHINE MECHANIC Chart Check - Review Order Profile Entered On: 05/31/2019 8:03 EST Performed On: 05/31/2019 5:00 EST by Kristofer Lau RN Chart Check Powerplans Initiated/Discontinued as Appropriate : Yes All Active Orders Reviewed : Yes Kristofer Lau RN - 05/31/2019 8:03 EST documented in this encounter Plan of Treatment Not on file documented as of this encounter Visit Diagnoses Not on filedocumented in this encounter
--- OUTSIDE RECORDS SUMMARY | 2024-10-25 20:20 | XMS_ITS | Encounter Summary ---
Author Organization [employer] Address [address] [place] [address] Care Team Providers Care Bedspread Seamer Name Role Phone Unavailable Primary Care Provider Unavailabl e Encounter Details Date Type Department Care Team (Late st Contact Info) Description 05/30/2019 Transcribed Document [facility] [place] [address] [place] [address] ProviderMelanie MD [address] [place] [id number] Social History Tobacco Use Types Packs/Day Years Used Date Smoking Tobacco: Never Assessed Sex and Gender Information Value Date Recorded Sex Assigned at Not on file Legal Sex Male 4:07 PM CDT Gender Identity Not on file Sexual Orientation Not on file documented as of this encounter Miscellaneous Notes * Cerner Conversion Note - Melanie ProviderMD - 05/30/2019 12:42 PM STONE AND PLATE PREPARER APPRENTICE Patient: TERRI MOREL Age: 59 years Sex: Male : 1960 Associated Diagnoses: None Author: CHUCK MULLER MD-INF Referring MD: Dr. Kenneth Frank Evaluating MD: Dr. Chuck Muller Date of admission: 05/28/19 Chief complaint: Scrotal abscess HPI: Mr. Terri Morel is a 59-year-old male being evaluated with a scrotal abscess. He has a past medical history of CABG, right inguinal hernia repair in right, orchiectomy, diabetes mellitus type 2 and ongoing tobacco abuse. He presented to the emergency department on 05/28/19 for worsening scrotal pain. He had a hydrocele repair on 04/04/[address] Pro. Patient states that he's had issues with healing since surgery. He subsequently visited the ER on 04/08/19 was found to have a large scrotal hematoma. Hematoma was managed conservatively and patient had 3 rounds of antibiotics (he is unable to say the names of the antibiotics or specific duration) but despite this the hematoma became infected and left an open wound on his scrotum per his report; currently no cultures available to us. Patient has been being followed by home health's been coming to pack the wound and he has been taking [place] Percocet and morphine at home with no relief to the scrotal pain. He denies any high-grade fevers but states he did have a low-grade fever once or twice. He denies any chest pain, shortness of breath, abdominal pain, nausea, vomiting, diarrhea, dysuria or hematuria. Since arrival here, patient has been afebrile and hemodynamically stable. Patient is without leukocytosis with current white blood cell count 7.2 with a neutrophil of 47.2%. UA was not impressive. Blood and urine cultures have been collected and are currently in process/pending. Patient did have a chest x-ray showed mild bibasilar atelectasis versus pneumonia. 05/29 I&D; I d/w Dr Pro and evidence for necrotic tissue, +infection; no cultures submitted per micro 05/30/19 He has scrotal pain which is constant at present but dull, nonradiating, worse with palpation, better with pain meds and 2 out of 10. No headache photophobia or neck stiffness. No shortness of breath cough or hemoptysis. No nausea vomiting diarrhea or abdominal pain. No new dysuria hematuria or pyuria. Review of Systems: 05/30/19: CONSTITUTION: Denies chills, sweats, malaise, weakness, fatigue, positive for low-grade fever HEENT: Denies headache, syncope, eye pain, blurry vision, ear pain, tinnitus, photophobia, sinus tenderness, rhinorrhea, dysphagia, oral sores NECK: Denies pain, stiffness LYMPH: Denies lymph nodes RESP: Denies shortness of breath, cough, hemoptysis CV: Denies chest pain, palpitations, murmurs GI: Denies abdominal pain, nausea, vomiting, diarrhea, constipation, hematemesis, hematochezia, melena : Positive for scrotal abscess and nonhealing surgical wound MS: Denies joint pain, swelling or redness. No new back pain SKIN: Denies rashes, pruritis, lesions, or abrasions NEURO: Denies strokes, seizures, Numbness/tingling, confusion PSYCH: Denies anxiety and depression or suicidal ideation ENDOCRINE: Denies diabetes and thyroid issues 12 systems were reviewed and negative except for above. Physical Examination: Vitals Signs (last 24 hrs) Last Charted Minimum Maximum Temp 97.8 (MAY 30 06:11) 97.8 (MAY 30:11) 98 (MAY 30 03:15) Apical HR 80 (MAY 30:10) 72 (MAY 29 17:25) 80 (MAY 30:10) Mon HR 80 (MAY 30:11) 60 (MAY 29 13:36) 80 (MAY 30:11) Resp Rate 19 (MAY 30:) L 12 (MAY 29 12:55) 19 (MAY 29 12:50) SBP H 158 (MAY 30:) 127 (MAY 29 23:24) H 183 (MAY 29 13:00) DBP H 101 (MAY 30:) 75 (MAY 29 13:05) H 158 (MAY 30:) MAP 132 (MAY 30:) 91 (MAY 29 23:24) 137 (MAY 29 13:00) SpO2 95 (MAY 30:) 95 (MAY 29 12:50) 100 (MAY 29 13:10) Exam: Gen: awake, in no acute distress, appears stated age HEENT: NC/AT, PERRLA, EOMI, sclera nonicteric, no conjunctival injection, sinuses nontender, Oropharynx without thrush, lesions, or peridontal disease NECK: Supple, no masses LYMPH: No lymphadenopathy in cervical, supraclavicular, axillary, or inguinal lymph nodes RESP: CTA bilaterally without rhonchi, rales, or wheezes. Nonlabored breathing CV: RRR, no murmurs, gallops, or rubs. No edema GI: BS normoactive in all 4 quadrants, soft, nontender, nondistended, no HSM, no guarding or rebound tenderness : No da silva in place, surgical site noted and is dressed and patient is in scrotal ; visible skin with mild edema and erythema but no Visible purulence or skin necrosis. No discrete mass bulge or fluctuance. No crepitus or bulla visible. MS: FROM in all extremities, no pain with motion, no swelling or edema noted. no spinal tenderness SKIN: No eruptions, lesions, or rashes NEURO: awake No peripheral stigmata/phenomena of endocarditis IV without obvious redness or drainage Labs:Labs (Last four charted values) WBC H 10.5 (MAY 30) 7.2 (MAY 29) 8.3 (MAY 28) HB 13.7 (MAY 30) L 13.0 (MAY 29) 14.8 (MAY 28) HCT 44.7 (MAY 30) 41.9 (MAY 29) 46.5 (MAY 28) Plt 234 (MAY 30) 183 (MAY 29) 226 (MAY 28) Na 137 (MAY 30) 139 (MAY 29) 140 (MAY 28) K L 3.2 (MAY 30) L 3.0 (MAY 29) 3.7 (MAY 28) Cl 102 (MAY 30) 105 (MAY 29) 108 (MAY 28) CO2 31 (MAY 30) 29 (MAY 29) 27 (MAY 28) BUN 8 (MAY 30) 7 (MAY 29) 12 (MAY 28) Cr 1.10 (MAY 30) 0.70 (MAY 29) 0.80 (MAY 28) Glu R H 262 (MAY 30) H 150 (MAY 29) H 200 (MAY 28) Ca 9.3 (MAY 30) 9.0 (MAY 29) 9.6 (MAY 28) Lactic 2.0 (MAY 28) PT 10.7 (MAY 28) INR 1.0 (MAY 28) PTT 27.1 (MAY 28) AST 20 (MAY 28) ALT 19 (MAY 28) ALK P 93 (MAY 28) T Bili 0.3 (MAY 28) PTN 8.2 (MAY 28) ALB 3.8 (MAY 28) Micro: 05/28 blood cultures currently in process/pending 05/28 urine cultures currently in process/pending 05/29 blood cultures currently in process/pending Rad: Radiology Results (Last 48 hours) [id number] -- 05/28/2019 20:28 CR Chest 1 Vw Portable (05/28/2019 21:15) Result: PORTABLE CHEST HISTORY: Abscess.COMPARISON: September 14, 2012.FINDINGS: Cardiomegaly is noted. Post operative changes are seen frommedian sternotomy.There are mild bibasilar opacities consistent withatelectasis or pneumonia. There is no pneumothorax. There are severalchronic rib fractures. IMPRESSION: Mild bibasilar atelectasis or pneumonia. IMPRESSION: 1. Acute orchitis/scrotal cellulitis/history that suggests abscess and prior hematoma of the scrotum after prior surgery in Mar 2019; I d/w Dr Pro and he reports that he received outpatient augmentin, no outpatient/operative culture data and infection at softtissue level. Empiric mixed coverage ongoing with daptomycin/Zosyn. Further adjustments to depend on clinical course/study results and response to therapy. 2. Acute Scrotal cellulitis 3. Status post left hydrocelectomy on 04/04/19 4. Coronary artery disease status post CABG 11/22/18 5. Diabetes mellitus type 2; you need to tightly control blood sugar to give best chance for healing 6. Ongoing tobacco abuse RECOMMENDATIONS/PLANS: 1. continue Zosyn 2. IV dapto 3. Continue to follow cultures and sensitivity reports an just antibiotics accordingly 4. Continue to follow physical exam and radiological reports an just therapies as indicated 5. Continue to follow daily labs and trimmed results Check/review labs cultures and scans History per nursing staff Discussed with microbiology and family Highly complex set of issues with high risk for further serious morbidity and other serious sequela documented in this encounter Plan of Treatment Not on file documented as of this encounter Visit Diagnoses Not on filedocumented in this encounter
--- OUTSIDE RECORDS SUMMARY | 2024-10-25 20:20 | XMS_ITS | Encounter Summary ---
Author Organization [employer] Address [address] [place] [address] Care Team Providers Care Platform Stapler Name Role Phone Unavailable Primary Care Provider Unavailabl e Encounter Details Date Type Department Care Team (Late st Contact Info) Description 06/05/2019 Transcribed Document [facility] [place] [facility] [place] [address] ProviderMelanie MD [address] [place] [id number] Social History Tobacco Use Types Packs/Day Years Used Date Smoking Tobacco: Never Assessed Sex and Gender Information Value Date Recorded Sex Assigned at Not on file Legal Sex Male 4:07 PM CDT Gender Identity Not on file Sexual Orientation Not on file documented as of this encounter Miscellaneous Notes * Cerner Conversion Note - Melanie ProviderMD - 06/05/2019 1:08 PM OPTOMETRIC AIDE Patient: TERRI MOREL Age: 59 Years Sex: Male : 1960 Admit Date 05/28/2019 20:28 Discharge Date 06/01/2019 17:44 DOS: 06/01/19 Primary Care Provider LISE VAIL DR Discharge Diagnosis Scrotal abscess 05/28/2019 N49.2 ICD-10-CM Cellulitis 05/28/2019 L03.90 ICD-10-CM Uncontrolled pain 05/28/2019 R52 ICD-10-CM Hospital Course Mr. Morel is 59-year-old white male with history of CADS/P CABG , diabetes who presents to the emergency department as instructed by Dr. Luque with urology for his worsening scrotal pain, [...] Patient reports he has been taking his [place] Percocet and morphine at home with no relief to his scrotal pain. Patient also reports that there is a hard mass in his scrotum that Dr. Luque had planned to ultrasound this week. Patient denies any fever chills headache dizziness blurred vision cough He denies chest pain shortness of breath abdominal pain nausea vomiting diarrhea no dysuria or hematuria. 1. Scrotal cellulitis and abscess: Post surgical I&D. IV abx per ID reccs 2. Coronary artery disease status post CABG 11/22/2018 No recent cardiac symptoms or concerns 3. Type 2 diabetes mellitus - Better control today. Will continue to adjust insulin for better control. 4. Ongoing tobacco smoking: Nebs, patch, education 5. HTN -stable. Worse due to pain. Monitor and adjust meds as needed for control. ID reccs: Augmentin/doxy po Urology reccs: discharge pending pain management and abx plan - scheduled for wound vac change on Thursday - will follow-up 1-[address] Luque for possible closure vs vac replacement Medically stable for discharge home today Vital Signs Oxygen Settings (Last) Oxygen Therapy Mode: Room air (06/01/19 08:16:00) Oxygen Flow Rate: 2 Liter/Min (05/29/19 13:36:00) Discharge Disposition Home with Home Care Discharge Follow Up SUKHJINDER SHRESTHA MD-INT - 03:45 PM KATARZYNA RIZO MD-INF - 09:30 AM JC LUQUE - Within 1 to 2 weeks Discharge Medications (14) Active Aspir 81 81 mg, Oral, Daily carvedilol 25 mg oral tablet 25 mg = 1 Tab, Oral, BID cyclobenzaprine 10 mg oral tablet 10 mg = 1 Tab, PRN, Oral, TID Cymbalta 60 mg oral delayed release capsule 60 mg = 1 Cap, Oral, Daily desipramine 25 mg oral tablet 25 mg = 1 Tab, Oral, At Bedtime Farxiga 10 mg oral tablet 10 mg = 1 Tab, Oral, QAM hydroCHLOROthiazide-lisinopril 12.5 mg-10 mg oral tablet 1 Tab, Oral, BID Janumet 50 mg-1000 mg oral tablet 1 Tab, Oral, BID lactobacillus acidophilus oral tablet 2 Tab, Oral, BID lovastatin 40 mg oral tablet 40 mg = 1 Tab, Oral, Daily MS Contin 15 mg oral tablet, extended release 15 mg = 1 Tab, Oral, Q12H NIFEdipine 90 mg oral tablet, extended release 90 mg = 1 Tab, Oral, Daily PriLOSEC 40 mg oral delayed release capsule 40 mg = 1 Cap, Oral, Daily Zofran 4 mg oral tablet 4 mg = 1 Tab, PRN, Oral, Q8H Code Status No Code Status Order on Record Consulting Physicians No Consulting Physician on Record. Current Diet Order No qualifying data available. Pending Labs No Labs on Record Time Spent on Discharge Time for preparation of discharge was greater than 30 minutes. I personally evaluated the patient on the day of discharge. documented in this encounter Plan of Treatment Not on file documented as of this encounter Visit Diagnoses Not on filedocumented in this encounter
--- OUTSIDE RECORDS SUMMARY | 2024-10-25 20:20 | XMS_ITS | Encounter Summary ---
Author Organization [employer] Address [address] [place] [address] Care Team Providers Care Claims Investigator Name Role Phone Unavailable Primary Care Provider Unavailabl e Encounter Details Date Type Department Care Team (Late st Contact Info) Description 05/31/2019 Transcribed Document [facility] [place] [facility] [place] [address] ProviderMelanie MD [address] [place] [id number] Social History Tobacco Use Types Packs/Day Years Used Date Smoking Tobacco: Never Assessed Sex and Gender Information Value Date Recorded Sex Assigned at Not on file Legal Sex Male 4:07 PM CDT Gender Identity Not on file Sexual Orientation Not on file documented as of this encounter Miscellaneous Notes * Cerner Conversion Note - Melanie ProviderMD - 05/31/2019 3:07 PM HEALTH TECHNICIAN HEARING WOCN Inpatient Documentation Entered On: 05/31/2019 15:13 EST Performed On: 05/31/2019 15:07 EST by Jenise Ortiz Rn-Enterostomal WOCN Admission Date : Admit Date 05/28/2019 20:[address] : Diagnosis (7) Abscess - complicated Inflammatory disorders of scrotum Pain, unspecified Cellulitis, unspecified Cellulitis, unspecified Abscess of epididymis or testis Abscess of epididymis or testis Reason for WOCN Visit : Initial consult Admitting Diagnosis ST : Reason for Admission scrotal abscess WOCN Assessment Summary : Urologist request application of NPWT to scrotum s/p exploration and debridement. POLICYHOLDER INFORMATION CLERK used by jag. Soaked Gauze with saline and gently removed old dressing with minimal discomfort. Testicle noted with circumfrential undermining. Wound cleansed with NS. Periwound prepped. One piece mepitel to wound bed with two pieces granufoam. Covered with drape. Set to 90mmHg cont negative pressure. Seal obtained without air leak. Picture taken and placed in chart. Patient tolerated the dressing change very well, pt even commented that he couldn't believe we were already finished with treatment. CM states patient to go home with S&N, so S&N renasys applied for easy transfer to home NPWT. All questions and concerns answered. Will follow. Next dressing change scheduled for Thursday. Family at bedside. Jenise Ortiz Rn-Enterostomal - 05/31/2019 15:07 EST Wound & Pressure Ulcer WOCN Wound Pressure Ulcer Documentation : [id number] Abnormality: Scrotum Posterior on 05/31/2019 15:05 by Jenise Ortiz Rn-Enterostomal I/W/A Present on Admission to Hospital: Yes I/W/A Type: Incision, open I/W/A Dressing Status: Intact I/W/A Dressing Activity: Assessed, Dressing changed I/W/A Wound Date of Dressing Change: :0.621991:0:0 I/W/A Wound Bed Description: Full-thickness, Undermining I/W/A Bed Color(s): Red, Purple/Maroon I/W/A Wound Edge: Not Attached I/W/A Surrounding Tissue: Edematous I/W/A Length: 7 I/W/A Width: 5 I/W/A Depth Measurement: 4 I/W/A Drainage Amount: Minimal I/W/A Drainage Description: Serosanguineous I/W/A Drainage Odor: None I/W/A Photographed: Yes I/W/A Cleansing/Irrigation: Sterile saline I/W/A Skin Treatment: Barrier film I/W/A Dressing Type/Treatment: NPWT, Silicone mesh Negative Pressure Wound Therapy Activity: Initial set-up application NPWT Inpatient Start Date: [id number]:[id number]:0:0 NPWT Device Used: Renasys Type of Foam/Gauze Applied: Black Foam, Contact layer Number of Black Foam Gauze Applied: 2 Number of Contact Layer Pieces Applied: 1 Number of TRAC Pads Applied: 1 NPWT Pressure: Continuous NPWT Pressure Settin NPWT Canister Changed: Yes I/W/A Incision/Wound Healing: Initial WOCN Ostomy Documentation : No ostomy assessments reported. Jenise Ortiz Rn-Enterostomal - 05/31/2019 15:07 EST Electronically signed by Angel, [facility] Conversion Livestock Auctioneer Cerner at 09/05/2022 2:03 PM CDT documented in this encounter Plan of Treatment Not on file documented as of this encounter Visit Diagnoses Not on filedocumented in this encounter
--- OUTSIDE RECORDS SUMMARY | 2024-10-25 20:20 | XMS_ITS | Encounter Summary ---
Author Organization [employer] Address [address] [place] [address] Care Team Providers Care Ferry Pilot Name Role Phone Unavailable Primary Care Provider Unavailabl e Encounter Details Date Type Department Care Team (Late st Contact Info) Description 05/29/2019 Transcribed Document [facility] [place] [address] [place] [address] ProviderMelanie MD [facility] [place] [address] Social History Tobacco Use Types Packs/Day Years Used Date Smoking Tobacco: Never Assessed Sex and Gender Information Value Date Recorded Sex Assigned at Not on file Legal Sex Male 4:07 PM CDT Gender Identity Not on file Sexual Orientation Not on file documented as of this encounter Miscellaneous Notes * Cerner Conversion Note - Historical ProviderMD - 05/29/2019 11:15 AM HONING MACHINE SET UP OPERATOR [facility] Main OR PACU Summary Primary Physician: JC LUQUE MD-URO Finalized Date/Time: 05/29/19 13:38:14 Pt. Name: MORELTERRI /Sex: 1960 Male Med Rec #: [id number] Physician: FRANCOIS WISE DO Financial #: [id number] Pt. Type: I Room/Bed: [facility]/1 Admit/Disch: 05/28/19 20:28:00 - Institution: [facility] Main OR PACU I Case Times Entry 1 In PACU I 05/29/19 12:40:00 Ready for PACU 05/29/19 13:30:00 Discharge Discharge from PACU 05/29/19 13:30:00 I Last Modified By: Janel Zelaya RN 05/29/19 13:38:05 Finalized By: Janel Zelaya RN Document Signatures Signed By: Janel Zelaya RN 05/29/19 13:38 Electronically signed by Angel [facility] Conversion Submarine Element Coordinator Cerner at 09/05/2022 2:21 PM CDT documented in this encounter Plan of Treatment Not on file documented as of this encounter Visit Diagnoses Not on filedocumented in this encounter
--- OUTSIDE RECORDS SUMMARY | 2024-10-25 20:20 | XMS_ITS | Encounter Summary ---
Author Organization [employer] Address [address] [place] [address] Care Team Providers Care Epic Ambulatory Analysts Name Role Phone Unavailable Primary Care Provider Unavailabl e Encounter Details Date Type Department Care Team (Late st Contact Info) Description 05/30/2019 Transcribed Document [facility] [place] Medicine [address] [place] [address] ProviderMelanie MD [facility] [place], [place] [address] Social History Tobacco Use Types Packs/Day Years Used Date Smoking Tobacco: Never Assessed Sex and Gender Information Value Date Recorded Sex Assigned at Not on file Legal Sex Male 4:07 PM CDT Gender Identity Not on file Sexual Orientation Not on file documented as of this encounter Miscellaneous Notes * Cerner Conversion Note - Historical ProviderMD - 05/30/2019 1:59 AM CSO Pain Assessment Entered On: 05/30/2019 5:08 EST Performed On: 05/30/2019 5:00 EST by Jenna Vargas Lpn Intervention Information: HYDROmorphone Performed by Jenna Vargas Lpn on 05/30/2019 04:30:00 EST HYDROmorphone,1mg IV Push,Left Hand,Pain (Severe 7-10) Pain Assessment Pain Assessment : Follow-up assessment Pain Scale Goal : 3 Pain Scale Used : 0-10 Scale Jenna Vargas Lpn - 05/30/2019 5:08 EST Pain Scale Intensity : 2 Jenna Vargas Lpn - 05/30/2019 5:08 EST Image 4 - Images currently included in the form version of this document have not been included in the text rendition version of the form. documented in this encounter Plan of Treatment Not on file documented as of this encounter Visit Diagnoses Not on filedocumented in this encounter
--- OUTSIDE RECORDS SUMMARY | 2024-10-25 20:20 | XMS_ITS | Encounter Summary ---
Author Organization [employer] Address [address] [place] [address] Care Team Providers Care Systems Software Specialist Name Role Phone Unavailable Primary Care Provider Unavailabl e Encounter Details Date Type Department Care Team (Late st Contact Info) Description 05/31/2019 Transcribed Document [facility] [place] [address] [place] [address] ProviderMelanie MD [facility] [place], [place] [address] Social History Tobacco Use Types Packs/Day Years Used Date Smoking Tobacco: Never Assessed Sex and Gender Information Value Date Recorded Sex Assigned at Not on file Legal Sex Male 4:07 PM CDT Gender Identity Not on file Sexual Orientation Not on file documented as of this encounter Miscellaneous Notes * Cerner Conversion Note - Historical ProviderMD - 05/31/2019 11:19 PM FORGING MACHINE OPERATOR Patient: TERRI VARGAS Age: 59 Years Sex: Male : 1960 Subjective Still with pain, especially during dressing changes. Vital Signs T: 36.6 ??C TMIN: 36.4 ??C TMAX: 37 ??C HR: 76(Monitored) RR: 18 BP: 139/93 SpO2: 97% Oxygen Settings (Last) Oxygen Therapy Mode: Room air (05/31/19 20:31:00) Oxygen Flow Rate: 2 Liter/Min (05/29/19 13:36:00) Intake & Output Totals Last 24 Hours (7a-7a) Input Total: 462.96 mL Output Total: 776 mL Balance: -313.04 mL Physical Exam General: no acute distress Neurologic: Awake, alert, and oriented X3, Moves all extremities. Eye: Pupils reactive and equal bilaterally. OP clear. Neck: No carotid bruits, no JVD, no lymphadenopathy Lungs: Clear to auscultation bilaterally. No wheezes. Heart: Regular rate and rhythm. No murmurs. Abdomen: Soft, non-tender, non-distended, normal bowel sounds, no masses Extremities: No edema. Full range of motion where tested. Surgery site bandaged. Skin: No rashes or lesions Assessment/Plan 1. Scrotal cellulitis and abscess: Post surgical I&D. IV abx per ID reccs Pain control is still not adequate - will increase dilaudid BUSINESS LINE MANAGER and allow oral oxcodone as needed. 2. Coronary artery disease status post CABG 11/22/2018 No recent cardiac symptoms or concerns 3. Type 2 diabetes mellitus - Better control today. Will continue to adjust insulin for better control. 4. Ongoing tobacco smoking: Nebs, patch, education 5. HTN -stable. Worse due to pain. Monitor and adjust meds as needed for control. VTE Prophylaxis - Medical Sequential Compression Device Start: 05/29/19 8:25:00 EST, Bilateral, Continuous Order (SERAFIN HIGH MD) Sequential Compression Device Start: 05/28/19 20:30:00 EST, Bilateral, While patient is in bed, Continuous Order (GUILLERMO SCOTT) Medications carvedilol, 25 mg= 1 Tab, Oral, BID cloNIDine, 0.1 mg= 1 Tab, Oral, Q3H, PRN cyclobenzaprine, 10 mg= 1 Tab, Oral, BID, PRN DAPTOmycin + Sodium Chloride 0.9% intravenous solution 50 mL desipramine, 25 mg= 1 Tab, Oral, At Bedtime Dilaudid 6 mg/30 ml BUSINESS LINE MANAGER 6 mg, 6 mg= 30 mL, IntraVENous docusate sodium, 100 mg= 1 Cap, Oral, BID Dulcolax Laxative, 10 mg= 1 Supp, Rectal, Daily, PRN DULoxetine, 60 mg= 2 Cap, Oral, Daily DuoNeb 0.5 mg-2.5 mg/3 mL inhalation solution, 3 mL, Nebulized Inhalation , RT_Q3H, PRN hydrALAZINE, 10 mg= 0.5 mL, IV Push, Q3H, PRN hydroCHLOROthiazide, 12.5 mg= 0.5 Tab, Oral, Daily insulin lispro sliding scale, Scale D:, SubCutaneous, AC and at Bedtime lactobacillus acidophilus, 1 Cap, Oral, BID lisinopril, 10 mg= 1 Tab, Oral, Daily naloxone, 0.2 mg= 0.5 mL, IV Push, On-CALL, PRN naloxone, 0.2 mg= 0.5 mL, IV Push, On-CALL, PRN nicotine 14 mg/24 hr transdermal film, extended release, 1 Patch, TransDermal, Daily NIFEdipine, 90 mg= 1 Tab, Oral, Daily Pepcid, 20 mg= 1 Tab, Oral, BID Percocet 10/325 oral tablet, 1 Tab, Oral, Q4H, PRN Phenergan, 12.5 mg= 0.5 mL, IV Push, Q4H, PRN Restoril, 30 mg= 2 Cap, Oral, At Bedtime, PRN senna, 8.6 mg= 1 Tab, Oral, BID simethicone, 100 mg= 1.5 mL, Oral, Q6H, PRN Tylenol, 650 mg= 2 Tab, Oral, Q4H, PRN Zofran, 4 mg= 2 mL, IV Push, Q4H, PRN Zosyn + Sodium Chloride 0.9% intravenous solution 100 mL Lab Results Test Name Test Result Date/Time Sodium Level 136 mmol/L 05/31/2019 07:07 EST Potassium Level 2.8 mmol/L (Critical) 05/31/2019 07:07 EST Chloride Level 104 mmol/L 05/31/2019 07:07 EST Carbon Dioxide Level 29 mmol/L 05/31/2019 07:07 EST Anion Gap 6 (Low) 05/31/2019 07:07 EST Glucose Level 168 mg/dL (High) 05/31/2019 07:07 EST Blood Urea Nitrogen 9 mg/dL 05/31/2019 07:07 EST Creatinine Level 0.90 mg/dL 05/31/2019 07:07 EST eGFR >60 mL/min/1.73m2 05/31/2019 07:07 EST eGFR NonAfrican >60 mL/min/1.73m2 05/31/2019 07:07 EST Bun/Creatinine 10.0 05/31/2019 07:07 EST Calcium Level 9.1 mg/dL 05/31/2019 07:07 EST Glucose POC2 191 mg/dL (High) 05/31/2019 15:37 EST Glucose POC2 252 mg/dL (High) 05/31/2019 11:10 EST Glucose POC2 190 mg/dL (High) 05/31/2019 06:01 EST WBC 7.1 K/uL 05/31/2019 07:07 EST RBC 4.65 Million/uL 05/31/2019 07:07 EST Hgb 12.4 g/dL (Low) 05/31/2019 07:07 EST Hct 39.7 % (Low) 05/31/2019 07:07 EST MCV 85.4 fL 05/31/2019 07:07 EST MCH 26.7 pg 05/31/2019 07:07 EST MCHC 31.2 Gram/dL (Low) 05/31/2019 07:07 EST Platelet Count 158 K/uL (Low) 05/31/2019 07:07 EST MPV 11.5 fL 05/31/2019 07:07 EST RDW 16.3 % (High) 05/31/2019 07:07 EST Slide Review No 05/31/2019 07:07 EST Electronically signed by Angel [facility] Conversion Fast Brim Pouncer Cerner at 09/05/2022 2:15 PM CDT documented in this encounter Plan of Treatment Not on file documented as of this encounter Visit Diagnoses Not on filedocumented in this encounter
--- OUTSIDE RECORDS SUMMARY | 2024-10-25 20:20 | XMS_ITS | Encounter Summary ---
Author Organization [facility] Address [address] [place] [address] Care Team Providers Care Special Warfare Operator Name Role Phone Anita Dumas Primary Care Provider [phone] Encounter Details Date Type Department Care Team ([facility] st Contact Info) Description 05/30/2024 Orders Only External Location [address] [place] [address] Provider, External Social History Tobacco Use Types Packs/Day Years [...] on file documented as of this encounter Plan of Treatment Not on file documented as of this encounter Procedures Procedure Name Priority Date/Time Associated Diagnosis Comments CT OUTSIDE IMAGES 05/30/2024 1:29 PM EST documented in this encounter Results * CT OUTSIDE IMAGES (05/30/2024 1:29 PM EST) Anatomical Region Laterality Modality Computed Tomogra phy 05/30/2024 1:29 PM EST External Provider IMG CT PROCEDURES Final Result documented in this encounter Visit Diagnoses Not on filedocumented in this encounter Additional Health Concerns Assessment Noted Time A fall risk assessment has been complete d for the patient 08/06/2022 10:40 AM EDT A Body Mass Index follow-up plan has been documented for the patient 08/06/2022 11:14 AM EDT documented as of this encounter Care Teams Special Warfare Operator Relationship Specialty Start Date End Date Anita Dumas PA [address] [place] [address] PCP - General 08/06/22 documented as of this encounter
--- OUTSIDE RECORDS SUMMARY | 2024-10-25 20:20 | XMS_ITS | Encounter Summary ---
Author Organization [facility] Address [address] [place] [address] Care Team Providers Care Construction Flagger Name Role Phone Anita Dumas Primary Care Provider [phone] Encounter Details Date Type Department Care Team ([facility] st Contact Info) Description 03/28/2024 Orders Only External Location [address] [place] [address] Provider, External Social History Tobacco Use Types [...] Name Priority Date/Time Associated Diagnosis Comments CT NEURO OUTSIDE IMAGES 03/28/2024 9:52 AM EST documented in this encounter Results * CT NEURO OUTSIDE IMAGES (03/28/2024 9:52 AM EST) Anatomical Region Laterality Modality Computed Tomogra phy 03/28/2024 9:52 AM EST us External Provider IMG CT PROCEDURES Final Result documented in this encounter Visit Diagnoses Not on filedocumented in this encounter Additional Health Concerns Assessment Noted Time A fall risk assessment has been complete d for the patient 08/06/2022 10:40 AM EDT A Body Mass Index follow-up plan has been documented for the patient 08/06/2022 11:14 AM EDT documented as of this encounter Care Teams Construction Flagger Relationship Specialty Start Date End Date Anita Dumas PA [address] [place] [address] PCP - General 08/06/22 documented as of this encounter
--- OUTSIDE RECORDS SUMMARY | 2024-10-25 20:20 | XMS_ITS | Encounter Summary ---
Author Organization [employer] Address [address] [place] [address] Care Team Providers Care Franchise Specialist Name Role Phone Unavailable Primary Care Provider Unavailabl e Encounter Details Date Type Department Care Team (Late st Contact Info) Description 06/16/2019 Transcribed Document [facility] [place] Family Medicine [facility] [place] [address] ProviderMelanie MD [address] [place] [id number] Social History Tobacco Use Types Packs/Day Years Used Date Smoking Tobacco: Never Assessed Sex and Gender Information Value Date Recorded Sex Assigned at Not on file Legal Sex Male 4:07 PM CDT Gender Identity Not on file Sexual Orientation Not on file documented as of this encounter Miscellaneous Notes * Cerner Conversion Note - Historical ProviderMD - 06/16/2019 10:36 AM SECOND VP HR ASSESSMENT DATE OF CONSULTATION: 06/16/2019 HISTORY: This is a 59-year-old male who 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 He had surgical debridement for this followed by placement of negative pressure wound therapy. We saw him once before he was doing well with a negative pressure and was scheduled to return today for further followup. In the meantime, he has seen his urologist, Dr. Arguello, at [facility]. The plan now is to do a primary closure of the remaining defect; that is scheduled for June 20. Therefore, our question is whether to continue with the negative pressure until the day of surgery. On examination, the wound really looks excellent. There has been significant advancement and granulation filling in the scrotal defect. He has tolerated the device well. It stayed in place the appropriate amount of time. My recommendation is to continue with the negative pressure until the day of surgery as it will provide a superior cover for the wound. He is also interested in pursuing that. Otherwise, getting dressings to adhere in the spot is significantly challenging and may lead to some disruption of the wound prior to surgery. At this time, we did not plan a followup in Wound Care since ideally there will be no wound if the surgery is successful. We can be available for assistance if necessary, however. It will be appropriate to discontinue the negative pressure on the day of surgery, or, switch over to one of the surgical wound covers such as Prevena NPWT. /[id number] MD MELI Terry III/LESLEY / MELI / JOVANY /[id number] documented in this encounter Plan of Treatment Not on file documented as of this encounter Visit Diagnoses Not on filedocumented in this encounter
--- OUTSIDE RECORDS SUMMARY | 2024-10-25 20:20 | XMS_ITS | Encounter Summary ---
Author Organization [employer] Address [address] [place] [address] Care Team Providers Care Grocery Stock Clerk Name Role Phone Unavailable Primary Care Provider Unavailabl e Encounter Details Date Type Department Care Team (Late st Contact Info) Description 05/29/2019 Transcribed Document [facility] [place] [address] [place] [address] ProviderMelanie MD [facility] [place] [address] Social History Tobacco Use Types Packs/Day Years Used Date Smoking Tobacco: Never Assessed Sex and Gender Information Value Date Recorded Sex Assigned at Not on file Legal Sex Male 4:07 PM CDT Gender Identity Not on file Sexual Orientation Not on file documented as of this encounter Miscellaneous Notes * Cerner Conversion Note - Historical ProviderMD - 05/29/2019 8:00 AM LAND MANAGEMENT FORESTER Consult Phone Call Documentation Entered On: 05/29/2019 7:49 EST Performed On: 05/29/2019 8:00 EST by SARAH BARILLAS Phone Call for Consults Consult Phone Call/Page Attempt : First call Consult Reason : scrotal abcess Physician Requesting Consult : GUILLERMO SCOTT MD-INT Physician Requested for Consult : BLANQUITA SCHERER MD-URO Physician Covering for Consult : BLANQUITA SCHERER MD-URO Date and Time Call Returned : 05/29/2019 7:48 EST Physician Returning Call : BLANQUITA SCHERER MD-URO COLLINS, CRYSTAL - 05/29/2019 7:48 EST documented in this encounter Plan of Treatment Not on file documented as of this encounter Visit Diagnoses Not on filedocumented in this encounter
--- OUTSIDE RECORDS SUMMARY | 2024-10-25 20:20 | XMS_ITS | Encounter Summary ---
Author Organization [employer] Address [address] [place] [address] Care Team Providers Care Miller Helper Distillery Name Role Phone Unavailable Primary Care Provider Unavailabl e Encounter Details Date Type Department Care Team (Late st Contact Info) Description 05/31/2019 Transcribed Document [facility] [place] [address] [place] [address] ProviderMelanie MD [facility] [place], [place] [address] Social History Tobacco Use Types Packs/Day Years Used Date Smoking Tobacco: Never Assessed Sex and Gender Information Value Date Recorded Sex Assigned at Not on file Legal Sex Male 4:07 PM CDT Gender Identity Not on file Sexual Orientation Not on file documented as of this encounter Miscellaneous Notes * Cerner Conversion Note - Historical ProviderMD - 05/31/2019 5:00 PM SENIOR HOUSEKEEPER Chart Check - Review Order Profile Entered On: 05/31/2019 18:42 EST Performed On: 05/31/2019 17:00 EST by SERVANDO BARILLAS, RN Chart Check Powerplans Initiated/Discontinued as Appropriate : Yes All Active Orders Reviewed : Yes SERVANDO BARILLAS RN - 05/31/2019 18:42 EST documented in this encounter Plan of Treatment Not on file documented as of this encounter Visit Diagnoses Not on filedocumented in this encounter
--- OUTSIDE RECORDS SUMMARY | 2024-10-25 20:20 | XMS_ITS | Encounter Summary ---
Author Organization [employer] Address [address] [place] [address] Care Team Providers Care Insurance Case Manager Name Role Phone Unavailable Primary Care Provider Unavailabl e Encounter Details Date Type Department Care Team (Late st Contact Info) Description 05/30/2019 Transcribed Document [facility] [place] [address] [place] [address] ProviderMelanie MD [facility] [place] [address] Social History Tobacco Use Types Packs/Day Years Used Date Smoking Tobacco: Never Assessed Sex and Gender Information Value Date Recorded Sex Assigned at Not on file Legal Sex Male 4:07 PM CDT Gender Identity Not on file Sexual Orientation Not on file documented as of this encounter Miscellaneous Notes * Cerner Conversion Note - Historical ProviderMD - 05/30/2019 11:23 AM RETAIL OFFICE ASSOCIATE On Going Discharge Planning Entered On: 05/30/2019 11:23 EST Performed On: 05/30/2019 11:23 EST by LYNDSEY GAY RN-Eap CounselorPower Plant Supervisor Progress Note Discharge Arrangements : Patient Post-Acute Information Patient Name: TERRI VARGAS Gender: Male : [birth year] Age: 59 Years No Post-Acute Placement(s) Listed No Post-Acute Service(s) Listed No Curaspan Referral(s) Listed Did you Attend Multidisciplinary Rounds? : Yes LYNDSEY GAY RN-Eap Counselor - 05/30/2019 11:23 EST Electronically signed by Angel [facility] Conversion Precinct Commanding Officer Cerner at 09/05/2022 2:03 PM CDT documented in this encounter Plan of Treatment Not on file documented as of this encounter Visit Diagnoses Not on filedocumented in this encounter
--- OUTSIDE RECORDS SUMMARY | 2024-10-25 20:20 | XMS_ITS | Encounter Summary ---
Author Organization [employer] Address [address] [place] [address] Care Team Providers Care Heel Shaper Name Role Phone Unavailable Primary Care Provider Unavailabl e Encounter Details Date Type Department Care Team (Late st Contact Info) Description 05/31/2019 Transcribed Document [facility] [place] [address] [place] [address] ProviderMelanie MD [address] [place] [id number] Social History Tobacco Use Types Packs/Day Years Used Date Smoking Tobacco: Never Assessed Sex and Gender Information Value Date Recorded Sex Assigned at Not on file Legal Sex Male 4:07 PM CDT Gender Identity Not on file Sexual Orientation Not on file documented as of this encounter Miscellaneous Notes * Cerner Conversion Note - Melanie ProviderMD - 05/31/2019 2:04 AM CLOTHING CONSULTANT Event Note Entered On: 05/31/2019 2:07 EST Performed On: 05/31/2019 2:04 EST by Kristofer Lau RN Event Note Event Date/Time : 05/30/2019 20:30 EST Event Location : Assigned room Event Details : Other: Description of Event : Patient complains of delay in administering pain medicine When patient's PLEATING SUPERVISOR dilaudid was about to finish, a request was sent to pharmacy for a refill. When the med was received, but the barcode could not scan. Pharmacy was contacted and a replacement barcode sent. But even the replacement could not be scanned. The patient and family got nervous and called the doctor. Given that the medication was the exact label as per the doctor's order, the charge nurse authorized for the medication to be administered prior to it being scanned. By the time the doctor's call came in the medication had been administered and the patient had got relief. A proper barcode was got from pharmacy later, and the medication documented to the time it was given. Kristofer Lau RN - 05/31/2019 2:04 EST Electronically signed by Angel, [facility] Conversion Core Inserter Cerner at 09/05/2022 2:23 PM CDT documented in this encounter Plan of Treatment Not on file documented as of this encounter Visit Diagnoses Not on filedocumented in this encounter
--- OUTSIDE RECORDS SUMMARY | 2024-10-25 20:20 | XMS_ITS | Encounter Summary ---
Author Organization [employer] Address [address] [place] [address] Care Team Providers Care Java Front End Web Developer Name Role Phone Unavailable Primary Care Provider Unavailabl e Encounter Details Date Type Department Care Team (Late st Contact Info) Description 05/30/2019 Transcribed Document [facility] [place] [address] [place] [address] ProviderMelanie MD [address] [place], [place] [id number] Social History Tobacco Use Types Packs/Day Years Used Date Smoking Tobacco: Never Assessed Sex and Gender Information Value Date Recorded Sex Assigned at Not on file Legal Sex Male 4:07 PM CDT Gender Identity Not on file Sexual Orientation Not on file documented as of this encounter Miscellaneous Notes * Cerner Conversion Note - Historical ProviderMD - 05/30/2019 2:00 AM COUNSELOR SUPERVISOR Hand Bobbin Cleaner Details Entered On: 05/30/2019 1:06 EST Performed On: 05/30/2019 2:00 EST by Jenna Vargas Lpn Order Details Transport Mode Order Detail : Ambulatory Isolation Precautions Order Detail : Standard Precautions Order Detail : N/A IV Order Detail : 1 Oxygen Order Detail : 0 Nurse Collect Order Detail : 0 Lift/Transfer : Independent Central Line Order Detail : No Room Service : Appropriate Arterial Line : No Jenna Vargas Lpn - 05/30/2019 1:06 EST Electronically signed by Angel [facility] Conversion Fire Watchman Cerner at 09/05/2022 2:22 PM CDT documented in this encounter Plan of Treatment Not on file documented as of this encounter Visit Diagnoses Not on filedocumented in this encounter
--- OUTSIDE RECORDS SUMMARY | 2024-10-25 20:20 | XMS_ITS | Encounter Summary ---
Author Organization [employer] Address [address] [place] [address] Care Team Providers Care Crap Game Box Person Name Role Phone Unavailable Primary Care Provider Unavailabl e Encounter Details Date Type Department Care Team (Late st Contact Info) Description 05/29/2019 Transcribed Document [facility] [place] [place] Family Medicine [address] [place] [address] ProviderMelanie MD [facility] [place], [place] [address] Social History Tobacco Use Types Packs/Day Years Used Date Smoking Tobacco: Never Assessed Sex and Gender Information Value Date Recorded Sex Assigned at Not on file Legal Sex Male 4:07 PM CDT Gender Identity Not on file Sexual Orientation Not on file documented as of this encounter Miscellaneous Notes * Cerner Conversion Note - Historical ProviderMD - 05/29/2019 11:15 AM INJECTION MAINTENANCE TECHNICIAN [facility] Main OR IntraOp Summary Primary Physician: JC LUQUE MD-SHANTEL Finalized Date/Time: 05/31/19 10:17:06 Pt. Name: LES MORELUSHA Rutherford /Sex: 1960 Male Med Rec #: [id number] Physician: FRANCOIS WISE DO Financial #: [id number] Pt. Type: I Room/Bed: [facility]/ Admit/Disch: 05/28/19 20:28:00 - Institution: [facility] IntraOp Case Attendance Entry 1 Entry 2 Entry 3 Case Attendee JC LUQUE BOWEN, JON B, MD-ANS OTHER, ATTENDEE -URO Role Performed Surgeon/Proceduralist, Anesthesiologist Resident First Time In 05/29/19 11:00:00 05/29/19 11:00:00 05/29/19 11:00:00 Time Out 05/29/19 12:38:00 05/29/19 12:38:00 05/29/19 12:38:00 Procedure Scrotal Exploration Scrotal Exploration Scrotal Exploration Other Attendee BERNYADOLFO URO Superficial Wound Closed By: Last Modified By: Mikel Irvin RN Pantano, Scott, Mikel Nicole RN 05/29/19 12:40:12 05/29/19 12:40:12 05/29/19 11:27:29 Entry 4 Entry 5 Case Attendee Mikel Irvin RN WATTS, DESHAWNIA R. Role Performed Larry Operator, First Scrub, First Time In 05/29/19 11:00:00 05/29/19 11:00:00 Time Out 05/29/19 12:38:00 05/29/19 12:38:00 Procedure Scrotal Exploration Scrotal Exploration Other Attendee Superficial Wound Closed By: Last Modified By: Mikel Irvin RN Pantano, Scott, RN 05/29/19 12:40:12 05/29/19 12:40:12 [facility] IntraOp Case Attendance Audit 05/29/19 12:40:12 Arrt Technologist: BRENTANONorris Modifier: PANTANOS 1 <+> Time Out 1 <*> Procedure Scrotal Exploration 2 <+> Time Out 2 <*> Procedure Scrotal Exploration 3 <+> Time Out 3 <*> Procedure Scrotal Exploration 4 <+> Time Out 4 <*> Procedure Scrotal Exploration 5 <+> Time Out 5 <*> Procedure Scrotal Exploration 05/29/19 11:31:44 Arrt Technologist: BRENTANOS Modifier: PANTANOS <+> 1 Procedure 2 <*> Procedure Scrotal Exploration 3 <*> Procedure Scrotal Exploration 4 <*> Procedure Scrotal Exploration 5 <*> Procedure Scrotal Exploration 05/29/19 11:30:54 Arrt Technologist: PANTANOS Modifier: PANTANOS 2 <+> Time In 2 <*> Procedure Scrotal Exploration 3 <+> Time In 3 <*> Procedure Scrotal Exploration 4 <+> Time In 4 <*> Procedure Scrotal Exploration 5 <+> Time In 5 <*> Procedure Scrotal Exploration [facility] IntraOp Case Times Entry 1 Patient In Room Time 05/29/19 11:00:00 Out Room Time 05/29/19 12:38:00 Anesthesia Start Time 05/29/19 11:00:00 Stop Time 05/29/19 12:38:00 Surgery / Procedure Times Start Time 05/29/19 11:15:00 Stop Time 05/29/19 12:38:00 Last Modified By: Mikel Irvin RN 05/29/19 12:39:19 [facility] IntraOp Case Times Audit 05/29/19 12:39:19 Arrt Technologist: GISSELLE Modifier: GISSELLE <+> 1 Out Room Time <+> 1 Stop Time <+> [address] [facility] IntraOp Cautery Entry 1 ESU Identification Cautery Type Monopolar ESU ID Number [id number] ID Type Hospital Number Cautery Settings Cut Setting 30 Coag Setting 30 ESU Grounding Pad Ground Pad Type Adult Grounding Pad Site Right thigh Grounding Pad Mikel Irvin RN Applied By Grounding Pad Site Dry, Intact, Warm Skin Condition Before Cautery Grounding Pad Site Unchanged Skin Condition After Cautery Last Modified By: Mikel Irvin RN 05/29/19 11:27:43 [facility] IntraOp Communication Entry 1 Communication To Family/Significant other Communication By Mikel Irvin RN Date and Time 05/29/19 11:27:00 Last Modified By: Mikel Irvin RN 05/29/19 11:27:52 [facility] IntraOp Counts Verification Entry 1 Procedure Scrotal Exploration Count Info Count Type Sponge, Sharps, Miscellaneous Counts Verification Baseline/pre-procedure Sequence Count Results Correct, surgeon notified Counts Performed By Count Performed By CT JENKINS (Scrub) Count Performed By Mikel Irvin RN (RN) Last Modified By: Mikel Irvin RN 05/29/19 11:28:08 [facility] IntraOp Counts Final Entry 1 Procedure Scrotal Exploration Final Count Info Count Type Sponge, Sharps, Miscellaneous Counts Verification Skin Closure/end of Sequence procedure Count Results Correct, surgeon notified Counts Performed By Count Performed By CT JENKINS (Scrub) Count Performed By Mikel Irvin RN (RN) Last Modified By: Mikel Irvin RN 05/29/19 11:28:23 [facility] IntraOp Cultures and Spec Summary Entry 1 Cultrures and Specimens Specimen Ordered: Yes Test(s) Blood/Laboratory Requested/Final Disposition Last Modified By: Mikel Irvin RN 05/29/19 11:28:29 [facility] IntraOp Departure from OR Entry 1 Integumentary Assessment Integumentary WDL Assessment WDL Transfer/Handoff Transfer to PACU Phase I Handoff Method Bedside/Face to face, Online nursing summary Post-op Transport Stretcher/Gurney Via Patient Transport MELISSA JIMENEZ MD-ANS, Accompanied by OTHER, ATTENDEE Last Modified By: Mikel Irvin RN 05/29/19 11:28:47 [facility] IntraOp Dressing and Packing Entry 1 Type Packing Wound Dressing Item Kerlix/Leonides Applied By OTHER, ATTENDEE Last Modified By: Mikel Irvin RN 05/29/19 11:29:48 [facility] IntraOp Dressing and Packing Audit 05/29/19 12:38:38 Arrt Technologist: GISSELLE Modifier: GISSELLE 1 <*> Wound Dressing Item 4x4's [facility] IntraOp Fire Risk Assessment Entry 1 Fire Info Surgical Site or 0- No Incision Above the Xyphoid Open O2 Source 1- Yes (Mask or Cannula) Available Ignition 1- Yes (ESU, Laser, Light Source) Fire Risk 2 Assessment Score Fire Score Fire Risk Yes Assessment Complete Fire Risk Mikel Irvin RN Assessment Verified By Fire Risk 05/29/19 11:00:00 Assessment Verified Date/Time Fire Risk Standard Fire Yes Safety Precautions Followed Last Modified By: Mikel Irvin RN 05/29/19 11:28:55 [facility] IntraOp General Case Accounting Technician 1 Case Information OR OR 03 [facility] Case Level 1 Room Verified Yes Wound Class II - Clean-Contaminated Specialty SN Urology Anesthesia Type General ASA Class 3 Diagnosis Preop Diagnosis ABSCESS SCROTUM Postop Same As Preop Yes Postop Diagnosis ABSCESS SCROTUM Last Modified By: Mikel Irvin RN 05/29/19 11:29:56 [facility] IntraOp General Case Data Audit 05/29/19 11:29:56 Arrt Technologist: GISSELLE Modifier: GISSELLE <+> [address] [facility] IntraOp Intraoperative Assessment Entry 1 Handoff Method Bedside/Face to face, Online nursing summary Valid History / Yes Physical in Chart Preoperative Yes Checklist Reviewed/Evaluated Allergies Reviewed Yes Patient is Latex No Sensitive Isolation Not applicable Precautions Noted Level of WDL Consciousness (WDL = Alert, Oriented to Person, Place, and Time) Skin Assessment Yes Verified Present Upon IVs Arrival to OR Last Modified By: Mikel Irvin RN 05/29/19 11:30:07 [facility] IntraOp Intraoperative Equipment Entry 1 Type Monitoring Equipment Intraop Monitoring Electrocardiogram Three lead placement (ECG) Electrode Placement Blood Pressure Non-Invasive BP Device Source Blood Pressure Arm, right upper Location Pulse Oximeter Hand, left Probe Site Antiembolic Devices Antiembolic Devices Sequential compression device, knee high Antiembolic Device Bilateral Location Scopes Photo/Video Documentation Last Modified By: Mikel Irvin RN 05/29/19 11:30:33 [facility] IntraOp Medication Admin Entry 1 Entry 2 Medication/Irrigant Marcaine 0.25% 30ml Bacitracin 50,00units vial - [id number] powder vial Combo Med List Time Administered Route of LOCAL IN IRRIGATION Administration Dose Dose 15 Unit of Measure ml ml Volume Administered By OTHER, ATTENDEE OTHER, ATTENDEE Procedure Irrigation Irrigant Volume In Irrigant Volume Out Last Modified By: Mikel Irvin RN Pantano, Scott, RN 05/29/19 11:33:55 05/29/19 11:33:55 [facility] IntraOp Patient Positioning Entry 1 Procedure Scrotal Exploration Body Position Supine Left Arm Position Secured on padded arm board Right Arm Position Secured on padded arm board Left Leg Position Uncrossed, parallel Right Leg Position Uncrossed, parallel Feet Uncrossed Yes Pressure Points Yes Checked Positioning Devices Head Rest, Pad, Elbow, Arm Board, Safety Strap, Thighs Positioned By Mikel Irvin RN, JC LUQUE MD-URO, MELISSA JIMENEZ MD-ANS Position Verified Positioning Yes Verified by Anesthesia Positioning Yes Verified by Surgeon Last Modified By: Mikel Irvin RN 05/29/19 11:31:42 [facility] IntraOp Sign In Entry 1 Patient, Site, Yes Procedure Identified Surgical Consent Yes Confirmed Relevant Surgical Yes Documents Available Surgical Site N/A Marked by person performing procedure Anesthesia Machine Yes Check Completed Medication Checks Yes Completed Allergies No Airway Difficult Yes Airway/Aspiration Risk Difficult Yes Airway/Aspiration Intervention Equipment Available Blood Loss Risk Yes Blood Loss Yes Intervention Equipment Prepared and Ready Hypothermia Risk Yes Warming Measures Yes Taken Last Modified By: Mikel Irvin RN 05/29/19 11:30:51 [facility] IntraOp Sign Out Entry 1 RN Confirmation Surgical Yes Procedure(s) Identified Instrument, Sponge Yes and Sharps Counts Correct/Documented Equipment Problems N/A Documented Specimen Labeled N/A Correctly Urinary Catheter N/A Documented in IView Monae Patient Yes Recovery Concerns Reviewed with Anesthesia Provider, Surgeon and RN Monae Patient Yes Management Concerns Reviewed with Anesthesia Provider, Surgeon and RN Safety Checklist Yes Elements Complete? RN Sign Out Mikel Irvin RN Signature RN Sign Out 05/29/19 12:40:00 Signature Date/Time Plan of Care Outcome - Fire Risk OUTCOME STATEMENT: Goal met Patient is free from injury related to surgical fire Plan of Care Outcome - Pt Positioning OUTCOME STATEMENT: Goal met Absence of signs and symptoms of positioning injury. Plan of Care Outcome - Skin Prep OUTCOME STATEMENT: Goal met Intraoperative care is consistent with measures to prevent infection Plan of Care Outcome - Xray/Images OUTCOME STATEMENT: N/A Absence of observable signs or symptoms of radiation injury Plan of Care Outcome - Counts OUTCOME STATEMENT: Goal met Absence of signs and symptoms of injury related to extraneous objects Last Modified By: Mikel Irvin RN 05/29/19 12:24:30 [facility] IntraOp Sign Out Audit 05/29/19 12:40:05 Arrt Technologist: GISSELLE Modifier: GISSELLE <+> 1 RN Sign Out Signature Date/Time [facility] IntraOp Skin Prep Entry 1 Procedure Scrotal Exploration Prescribed N/A Pre-Surgical Prep Completed Prep Area GENITALIA Intraop Prep Integumentary WDL Assessment WDL Prep Agents Betadine scrub, Betadine solution Prep by Mikel Irvin RN Hair Removal Methods No hair removal performed Last Modified By: Mikel Irvin RN 05/29/19 11:29:33 [facility] IntraOp Surgical Procedures Entry 1 Procedure Scrotal Exploration Primary Procedure Yes Primary Surgeon JC LUQUE MD-URO Start 05/29/19 11:15:00 Stop 05/29/19 12:38:00 Anesthesia Type General Specialty SN Urology Wound Class II - Clean-Contaminated Last Modified By: Mikel Irvin RN 05/29/19 11:31:44 [facility] IntraOp Surgical Procedures Audit 05/29/19 12:39:57 Arrt Technologist: GISSELLE Modifier: GISSELLE <+> [address] [facility] IntraOp Temp Regulation Devices Entry 1 Temp Regulation Temperature Warm blankets, Forced Regulation Device Air Warming device Temperature Upper body Regulation Site Temperature MELISSA JIMENEZ MD-ANS Regulation Device Applied by Temperature monitored per Regulation Comment anesthesia, fariha hugger available Last Modified By: Mikel Irvin RN 05/29/19 11:30:40 [facility] IntraOP Time Out Entry 1 Procedure to be Scrotal Exploration Performed Time Out Time Out Pause Time 05/29/19 11:14:00 All activity Yes suspended (unless life threatening emergency) Team Verbally Correct patient Confirms Information identity, Correct side and site are marked, Consent form is present and accurate, Agreement on the procedure to be done, Correct patient position, Relevant images/results properly labeled/appropriately displayed, Confirm antibiotics have been administered, Confirm the skin prep has dried, Confirm prosthesis/implant/devic e is present, Performed in location of procedure after prepped/draped Antibiotic Yes Prophylaxis Administered Or In Progress Within the Last 60 Minutes Beta Asad N/A Administered Venous N/A Thromboembolism Prophylaxis Required Anticipated Critical Events Surgeon None expected, Critical or unexpected steps, Anticipated blood loss, Special equipment need Anesthesia Provider Patient specific concerns, None expected Nursing Assures Sterility of instruments, Equipment concerns or issues Essential Imaging Yes Labeled and Displayed Last Modified By: Mikel Irvin RN 05/29/19 11:31:23 [facility] IntraOP Time Out Audit 05/29/19 11:31:23 Arrt Technologist: ENIDNorris Modifier: GISSELLE 1 <+> Beta Asad Administered 1 <+> Venous Thromboembolism Prophylaxis Required 1 <+> Antibiotic Prophylaxis Administered Or In Progress Within the Last 60 Minutes 1 <+> Surgeon 1 <+> Anesthesia Provider 1 <+> Nursing Assures 1 <+> Essential Imaging Labeled and Displayed 1 <*> Procedure to be Performed Scrotal Exploration 1 <+> Team Verbally Confirms Information Case Comments <None> Finalized By: CT JENKINS Document Signatures Signed By: Mikel Irvin RN 05/29/19 12:40 CT JENKINS 05/31/19 10:17 Unfinalized History Date/Time Username Reason for Unfinalizing Freetext Reason for Unfinalizing 05/31/19 10:16 [email or web address] Correct Billing Electronically signed by French Ortiz Conversion Pipe Smoking Machine Offbearer Cerner at 09/05/2022 2:16 PM CDT documented in this encounter Plan of Treatment Not on file documented as of this encounter Visit Diagnoses Not on filedocumented in this encounter
--- OUTSIDE RECORDS SUMMARY | 2024-10-25 20:20 | XMS_ITS | Encounter Summary ---
Author Organization [facility] Address [address] [place] [address] Care Team Providers Care Career Development Associate Name Role Phone Anita Dumas Primary Care Provider [phone] Encounter Details Date Type Department Care Team ([facility] st Contact Info) Description 03/28/2024 Orders Only External Location [address] [place] [address] Provider, External Social History Tobacco Use Types [...] Procedure Name Priority Date/Time Associated Diagnosis Comments XR OUTSIDE IMAGES 03/28/2024 9:52 AM EST documented in this encounter Results * XR OUTSIDE IMAGES (03/28/2024 9:52 AM EST) Anatomical Region Laterality Modality Radiographic Keila ging 03/28/2024 9:52 AM EST External Provider IMG XR PROCEDURES Final Result documented in this encounter Visit Diagnoses Not on filedocumented in this encounter Additional Health Concerns Assessment Noted Time A fall risk assessment has been complete d for the patient 08/06/2022 10:40 AM EDT A Body Mass Index follow-up plan has been documented for the patient 08/06/2022 11:14 AM EDT documented as of this encounter Care Teams Career Development Associate Relationship Specialty Start Date End Date Anita Dumas PA [address] [place] [address] PCP - General 08/06/22 documented as of this encounter
--- OUTSIDE RECORDS SUMMARY | 2024-10-25 20:20 | XMS_ITS | Encounter Summary ---
Author Organization [email or web address] Address [address] [place] [address] Care Team Providers Care Casting Trucker Name Role Phone Unavailable Primary Care Provider Unavailabl e Encounter Details Date Type Department Care Team (Late st Contact Info) Description 06/28/2019 Transcribed Document [facility] [place] Family Medicine [address] [place] [address] ProviderMelanie MD [address] [place] [address] Social History Tobacco Use Types Packs/Day Years Used Date Smoking Tobacco: Never Assessed Sex and Gender Information Value Date Recorded Sex Assigned at Not on file Legal Sex Male 4:07 PM CDT Gender Identity Not on file Sexual Orientation Not on file documented as of this encounter Miscellaneous Notes * Cerner Conversion Note - Historical ProviderMD - 06/28/2019 10:50 PM FLAT SORTER PROCESSOR Russell Suicide Severity Rating Scale (C-SSRS) Entered On: 06/28/2019 23:13 EST Performed On: 06/28/2019 23:09 EST by Layla Vick RN Russell Suicide Severity Rating Scale (C-SSRS) CSSRS Past Month Wish to be : No CSSRS Past Month Suicidal Thoughts : No CSSRS Lifetime Suicide Behavior : No Suicide Severity Rating Score : 0 Suicide Severity Rating : No Additional Care Required at this time Layla Vick RN - 06/28/2019 23:09 EST Electronically signed by Angel [facility] Conversion Pharmacy Technician Infusion Cerner at 09/05/2022 2:21 PM CDT documented in this encounter Plan of Treatment Not on file documented as of this encounter Visit Diagnoses Not on filedocumented in this encounter
--- OUTSIDE RECORDS SUMMARY | 2024-10-25 20:20 | XMS_ITS | Encounter Summary ---
Author Organization [employer] Address [address] [place] [address] Care Team Providers Care Test Equipment Mechanic Name Role Phone Unavailable Primary Care Provider Andrew e Encounter Details Date Type Department Care Team (Late st Contact Info) Description 05/29/2019 Transcribed Document [facility] [facility] [place] [address] [place] [address] ProviderMelanie MD [address], [place] [id number] Social History Tobacco Use Types Packs/Day Years Used Date Smoking Tobacco: Never Assessed Sex and Gender Information Value Date Recorded Sex Assigned at Not on file Legal Sex Male 4:07 PM CDT Gender Identity Not on file Sexual Orientation Not on file documented as of this encounter Miscellaneous Notes * Cerner Conversion Note - Historical ProviderMD - 05/29/2019 11:21 AM MECHANIC Pain Assessment Entered On: 05/29/2019 16:57 EST Performed On: 05/29/2019 14:01 EST by JANN JOSEPH RN Intervention Information: oxyCODONE Performed by Janel Zelaya RN on 05/29/2019 13:01:00 EST oxyCODONE,5mg Oral,Pain (Moderate 4-6) Pain Assessment Pain Assessment : Follow-up assessment Pain Scale Goal : 3 Onset : Acute Pain Radiation : Yes JANN JOSEPH RN - 05/29/2019 16:57 EST documented in this encounter Plan of Treatment Not on file documented as of this encounter Visit Diagnoses Not on filedocumented in this encounter
--- OUTSIDE RECORDS SUMMARY | 2024-10-25 20:20 | XMS_ITS | Encounter Summary ---
Author Organization [employer] Address [address] [place] [address] Care Team Providers Care Oral Hygienist Name Role Phone Unavailable Primary Care Provider Unavailabl e Encounter Details Date Type Department Care Team (Late st Contact Info) Description 06/01/2019 Transcribed Document [facility] [place] Family Medicine [address] [place] [address] ProviderMelanie MD [facility] [place], [place] [id number] Social History Tobacco Use Types Packs/Day Years Used Date Smoking Tobacco: Never Assessed Sex and Gender Information Value Date Recorded Sex Assigned at Not on file Legal Sex Male 4:07 PM CDT Gender Identity Not on file Sexual Orientation Not on file documented as of this encounter Miscellaneous Notes * Cerner Conversion Note - Melanie ProviderMD - 06/01/2019 4:10 PM FINISHING FRAME RUNNER Final Discharge Planning Entered On: 06/01/2019 16:12 EST Performed On: 06/01/2019 16:10 EST by LYNDSEY GAY RN-Fabric Sourcer Final Discharge Planning Discharge Arrangements : Patient Post-Acute Information Patient Name: TERRI VARGAS Gender: Male : [birth year] Age: 59 Years Kasiaspbenson Referral(s): Service: Organization: Business Address: Phone Number: [facility] [address], [address], [place], [address] Patient Offered Choice/Affiliations Explained : Yes Designation of Choice Signed : Yes Important Medicare Message Reviewed With : Patient, Spouse Important Medicare Message Reviewed D/T : 06/01/2019 15:00 EST Transportation Needs : Family/Friend Follow Up Appointment Scheduled : Yes Is Patient High/Moderate Readmission Risk? : No Patient/Family Notified of Plan : Yes Support Person/Pt Rep Notified of Plan : Yes Patient/Family Notified : Nimisha, , at the bedside Is Patient Ready for Discharge? : Yes Physician Notified Patient is Ready for Discharge? : Yes Discharge To Care Management : Home Health Services (Related/SOC within 3 days)-06 LYNDSEY GAY RN-Fabric Sourcer - 06/01/2019 16:10 EST Final Narrative Note Final Narrative Note : Discharged to home, agreeable. Updates with vac order sent to [facility]. Wound vac to be delivered to room at approximately 1730. No other needs verbalized at this time. LYNDSEY GAY, ANAT-Fabric Sourcer - 06/01/2019 16:10 EST Electronically signed by Angel [facility] Conversion Nurse Administrator Cerner at 09/05/2022 2:24 PM CDT documented in this encounter Plan of Treatment Not on file documented as of this encounter Visit Diagnoses Not on filedocumented in this encounter
--- OUTSIDE RECORDS SUMMARY | 2024-10-25 20:20 | XMS_ITS | Encounter Summary ---
Author Organization [employer] Address [address] [place] [address] Care Team Providers Care Helper Electrical Name Role Phone Unavailable Primary Care Provider Unavailabl e Encounter Details Date Type Department Care Team (Late st Contact Info) Description 06/01/2019 Transcribed Document [facility] [place] [facility] [address] [place] [address] ProviderMelanie MD [facility] [place] [address] Social History Tobacco Use Types Packs/Day Years Used Date Smoking Tobacco: Never Assessed Sex and Gender Information Value Date Recorded Sex Assigned at Not on file Legal Sex Male 4:07 PM CDT Gender Identity Not on file Sexual Orientation Not on file documented as of this encounter Miscellaneous Notes * Cerner Conversion Note - Melanie ProviderMD - 06/01/2019 5:17 PM 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 SERV[place] [address] TERRI MOREL :1960 Visit Time:05/28/2019 Your Visit Summary Your Care Team Admitting Physician - FRANCOIS WISE DO LESLIE, JEREMY CODY, MD-EMR PHY, UNKNOWN Attending Physician - FRANCOIS WISE DO LESLIE, JEREMY CODY, MD-EMR Primary Care Physician - SUKHJINDER SHRESTHA MD-INT Referring Physician - SOCORRO GOULD MD-ANA Your Diagnosis Abscess - complicated Abscess of epididymis or testis, Abscess of epididymis or testis Cellulitis, Cellulitis Scrotal abscess Uncontrolled pain What to do next Instructions From Your Care Team STOP the following medications: STOP Rozel (hydrocodone - acetaminophen) STOP Percocet 5/325 mg tablets ---- New prescription for Percocet 10 / 325 mg tablets provided. [facility] [phone] Medical Equipment for Home Use: [employer] for wound vac [phone] Discharge Follow Up Instructions: PCP 1 week, ID (Dr. Weiss) 1 week, Urology 2 weeks. Home wound VAC. Activity: Discharge Activity: Activity as tolerated Diet: Discharge Diet: Resume usual diet as tolerated Follow-Up Appointments Follow Up with SUKHJINDER SHRESTHA MD-INT When 06/13/2019 03:45 PM EST Comments Appointment has been made Where: [address] [place] [address]- [phone] Follow Up with KATARZYNA RIZO MD-INF When 06/03/2019 09:30 AM EST Where: [address] [facility] [place] [address]- Follow Up with JC LUQUE When Within 1 to 2 weeks Comments Call for follow up appointment Where: [address] [place] [address] [place] [address]- Business (1) Medications What How Much When Instructions Next Dose amoxicillin-clavulanate (Augmentin 875 mg-125 mg oral tablet) 1 Tablet(s) Oral Every 12 hours Duration: 10 Day(s) Printed Prescription today doxycycline (doxycycline hyclate 100 mg oral capsule) 1 Capsule(s) Oral Two Times A Day Duration: 10 Day(s) Printed Prescription today lactobacillus acidophilus (lactobacillus acidophilus oral tablet) 2 Tablet(s) Oral Two Times A Day Duration: 10 Day(s) Printed Prescription today DULoxetine (Cymbalta 60 mg oral delayed release capsule) 1 Capsule(s) Oral Every Day (do not crush or chew) 06-02-2019 NIFEdipine (NIFEdipine 90 mg oral tablet, extended release) 1 Tablet(s) Oral Every Day 06-02-2019- acetaminophen-oxyCODONE (Percocet 10/ 325 oral tablet) 1 Tablet(s) Oral Every 4 Hours as needed for Breakthrough Pain Duration: 5 Day(s) New prescription provided. New dose. Printed Prescription as needed aspirin (Aspir 81) 81 Milligram(s) Oral Every Day 06-02-2019 cyclobenzaprine (cyclobenzaprine 10 mg oral tablet) 1 Tablet(s) Oral Three Times A Day as needed for as needed for spasm as needed dapagliflozin (Farxiga 10 mg oral tablet) 1 Tablet(s) Oral Every Morning 06-02-2019- hydrochlorothiazide-lisinopril (hydroCHLOROthiazide-lisinopril 12.5 mg-10 mg oral tablet) 1 Tablet(s) Oral Two Times A Day today lovastatin (lovastatin 40 mg oral tablet) 1 Tablet(s) Oral Every Day bedtime omeprazole (PriLOSEC 40 mg oral delayed release capsule) 1 Capsule(s) Oral Every Day 06-02-2019 carvedilol (carvedilol 25 mg oral tablet) 1 Tablet(s) Oral Two Times A Day today desipramine (desipramine 25 mg oral tablet) 1 Tablet(s) Oral At Bedtime bedtime metformin-sitagliptin (Janumet 50 mg-1000 mg oral tablet) 1 Tablet(s) Oral Two Times A Day today morphine (MS Contin 15 mg oral tablet, extended release) 1 Tablet(s) Oral Every 12 hours today ondansetron (Zofran 4 mg oral tablet) 1 Tablet(s) Oral Every 8 Hours as needed for Nausea as needed Take your medications faithfully. Do NOT skip medication. Do NOT stop taking medications without the direction of a physician. Carry a list of your medications with you at all times, and take this medication list with you to your first follow up visit. Report any side effects. Avoid herbal remedies unless discussed with your physician. As part of your treatment plan, your physician may have prescribed a limited course of a controlled substance. This medication may be given to help people with moderate or severe pain or for other medical conditions, but there are risks involved with treatment. Common side effects may include nausea, constipation, drowsiness, sweating, itching, dry mouth, and rash. More serious side effects may include cognitive and motor impairment, like problems with thinking, concentrating, alertness, and movement (e.g. slowed reflexes), and driving and operating heavy machinery can be dangerous. It is important for you to talk to your physician if you have these side effects or questions. These controlled substances can produce physical dependence and be habit-forming if taken for an extended period of time, which means that the body has gotten used to them and may experience withdrawal symptoms if they are abruptly stopped. Withdrawal symptoms can include runny nose, sweating, goose bumps, diarrhea, abdominal cramping, rapid heartbeat, difficulty sleeping, and nervousness. Please dispose of unused and medications per your retail pharmacy guidance. Allergies No Known Allergies Immunizations This Visit influenza virus vaccine, inactivated 05/30/2019 Education Materials Negative Pressure Wound Therapy What is negative [...] to treat your wound at home. ??? [place] hospital stay. ??? Less pain. What are [...] 04/16/2009 Document Revised: 03/31/2017 Document Reviewed: 02/07/2016 [employer] Patient Education ?? 2019 [employer] Negative Pressure Wound Therapy Dressing Care [...] to be changed. Follow your health care provider???s instructions on how often to change it. [...] open and ready to use. ? Hand kitchen and bath designer. ? Wound cleanser or saltwater solution (saline) [...] and water are not available, use hand kitchen and bath designer. ??? Put on gloves. ??? Turn off [...] and water are not available, use hand kitchen and bath designer. Cleaning your wound ??? Follow your health care provider's instructions on how to clean your wound. This may include using a saline or recommended wound cleanser. ??? Do not use [id number] medicated or antiseptic creams, sprays, liquids, or [...] and water are not available, use hand kitchen and bath designer. Applying the dressing ??? Apply a skin [...] and water are not available, use hand kitchen and bath designer. ??? Attach the suction and turn the [...] 07/26/2012 Document Revised: 05/29/2016 Document Reviewed: 02/07/2016 [employer] Patient Education ?? 2019 [employer]. acetaminophen and oxycodone (a SEET a MIN oh fen and OX i KOE done) Endocet 10/325, Endocet 2.5/325, Endocet 5/325, Endocet 7.5/325, Nalocet, Percocet 10/325, Percocet 2.5/325, Percocet 5/325, Percocet 7.5/325, Primalev, Primlev, Roxicet, Xartemis XR What is the most important information I should know about acetaminophen and oxycodone? MISUSE OF OPIOID MEDICINE CAN CAUSE ADDICTION, OVERDOSE, OR . Keep the medication in a place where others cannot get to it. An overdose of acetaminophen can damage your liver or cause . Call your doctor at once if you have pain in your upper stomach, loss of appetite, dark urine, or jaundice (yellowing of your skin or eyes). Taking opioid medicine during may cause life-threatening withdrawal symptoms in the . Fatal side effects can occur if you use opioid medicine with alcohol, or with other drugs that cause drowsiness or slow your breathing. Stop taking this medicine and call your doctor right away if you have skin redness or a rash that spreads and causes blistering and peeling. What is acetaminophen and oxycodone? Oxycodone is an opioid pain medication, sometimes called a narcotic. Acetaminophen is a less potent pain reliever that increases the effects of oxycodone. Acetaminophen and oxycodone is a combination medicine used to relieve moderate to severe pain. Acetaminophen and oxycodone may also be used for purposes not listed in this medication guide. What should I discuss with my healthcare provider before taking acetaminophen and oxycodone? You should not use this medicine if you are allergic to acetaminophen or oxycodone, or if you have: ?? severe asthma or breathing problems; or ?? a blockage in your stomach or intestines. Tell your doctor if you have ever had: ?? liver disease; ?? a drug or alcohol addiction; ?? kidney disease; ?? a head injury or seizures; ?? urination problems; or ?? problems with your thyroid, pancreas, or gallbladder. If you use opioid medicine while you are , your baby could become dependent on the drug. This can cause life-threatening withdrawal symptoms in the baby after it is born. Babies born dependent on opioids may need medical treatment for several weeks. Do not breast-feed. This medicine can pass into breast milk and cause drowsiness, breathing problems, or in a nursing baby. How should I take acetaminophen and oxycodone? Follow all directions on your prescription label. Never take this medicine in larger amounts, or for longer than prescribed. An overdose can damage your liver or cause . Tell your doctor if the medicine seems to stop working as well in relieving your pain. Never share this medicine with another person, especially someone with a history of drug abuse or addiction. MISUSE CAN CAUSE ADDICTION, OVERDOSE, OR . Keep the medicine in a place where others cannot get to it. Selling or giving away acetaminophen and oxycodone is against the law. Measure liquid medicine carefully. Use the dosing syringe provided, or use a medicine dose-measuring device (not a kitchen spoon). If you need surgery or medical tests, tell the doctor ahead of time that you are using this medicine. You should not stop using this medicine suddenly. Follow your doctor's instructions about tapering your dose. Store at room temperature away from moisture and heat. Keep track of your medicine. You should be aware if anyone is using it improperly or without a prescription. Do not keep leftover opioid medication. Just one dose can cause in someone using this medicine accidentally or improperly. Ask your pharmacist where to locate a drug take-back disposal program. If there is no take-back program, flush the unused medicine down the toilet. What happens if I miss a dose? Since this medicine is used for pain, you are not likely to miss a dose. Skip any missed dose if it is almost time for your next dose. Do not use two doses at one time. What happens if I overdose? Seek emergency medical attention or call the Poison Help line at . An overdose of acetaminophen and oxycodone can be fatal. The first signs of an acetaminophen overdose include loss of appetite, nausea, vomiting, stomach pain, sweating, and confusion or weakness. Later symptoms may include pain in your upper stomach, dark urine, and yellowing of your skin or the whites of your eyes. Overdose can also cause severe muscle weakness, pinpoint pupils, very slow breathing, extreme drowsiness, or coma. What should I avoid while taking acetaminophen and oxycodone? Avoid driving or operating machinery until you know how this medicine will affect you. Dizziness or drowsiness can cause falls, accidents, or severe injuries. Do not drink alcohol. Dangerous side effects or could occur. Ask a doctor or pharmacist before using any other medicine that may contain acetaminophen (sometimes abbreviated as APAP). Taking certain medications together can lead to a fatal overdose. What are the possible side effects of acetaminophen and oxycodone? Get emergency medical help if you have signs of an allergic reaction: hives; difficulty breathing; swelling of your face, lips, tongue, or throat. Opioid medicine can slow or stop your breathing, and may occur. A person caring for you should seek emergency medical attention if you have slow breathing with long pauses, blue colored lips, or if you are hard to wake up. In rare cases, acetaminophen may cause a severe skin reaction that can be fatal. This could occur even if you have taken acetaminophen in the past and had no reaction. Stop taking this medicine and call your doctor right away if you have skin redness or a rash that spreads and causes blistering and peeling. Call your doctor at once if you have: ?? noisy breathing, sighing, shallow breathing; ?? a light-headed feeling, like you might pass out; ?? weakness, tiredness, fever, unusual bruising or bleeding; ?? confusion, unusual thoughts or behavior; ?? problems with urination; ?? liver problems--nausea, upper stomach pain, tiredness, loss of appetite, dark urine, paul-colored stools, jaundice (yellowing of the skin or eyes); or ?? low cortisol levels-- nausea, vomiting, loss of appetite, dizziness, worsening tiredness or weakness. Seek medical attention right away if you have symptoms of serotonin syndrome, such as: agitation, hallucinations, fever, sweating, shivering, fast heart rate, muscle stiffness, twitching, loss of coordination, nausea, vomiting, or diarrhea. Serious side effects may be more likely in older adults and those who are overweight, malnourished, or debilitated. Long-term use of opioid medication may affect fertility (ability to have children) in men or women. It is not known whether opioid effects on fertility are permanent. Common side effects include: ?? dizziness, drowsiness, feeling tired; ?? feelings of extreme happiness or sadness; ?? nausea, vomiting, stomach pain; ?? constipation; or ?? headache. This is not a complete list of side effects and others may occur. Call your doctor for medical advice about side effects. You may report side effects to FDA at 7-355-SBU-2539. What other drugs will affect acetaminophen and oxycodone? You may have breathing problems or withdrawal symptoms if you start or stop taking certain other medicines. Tell your doctor if you also use an antibiotic, antifungal medication, heart or blood pressure medication, seizure medication, or medicine to treat HIV or hepatitis C. Opioid medication can interact with many other drugs and cause dangerous side effects or . Be sure your doctor knows if you also use: ?? cold or allergy medicines, bronchodilator asthma/COPD medication, or a diuretic ('water pill'); ?? medicines for motion sickness, irritable bowel syndrome, or overactive bladder; ?? other narcotic medications--opioid pain medicine or prescription cough medicine; ?? a sedative like Valium--diazepam, alprazolam, lorazepam, Xanax, Klonopin, Versed, and others; ?? drugs that make you sleepy or slow your breathing--a sleeping pill, muscle relaxer, medicine to treat mood disorders or mental illness; ?? drugs that affect serotonin levels in your body--a stimulant, or medicine for depression, Parkinson's disease, migraine headaches, serious infections, or nausea and vomiting. This list is not complete. Other drugs may affect acetaminophen and oxycodone, including prescription and qxac-fud-xlipgyj medicines, vitamins, and herbal products. Not all possible interactions are listed here. Where can I get more information? Your doctor or pharmacist can provide more information about acetaminophen and oxycodone. Remember, keep this and all other medicines out of the reach of children, never share your medicines with others, and use this medication only for the indication prescribed. Every effort has been made to ensure that the information provided by [employer]. [employer]') is accurate, up-to-date, and complete, but no guarantee is made to that effect. Drug information contained herein may be time sensitive. [employer] information has been compiled for use by healthcare practitioners and consumers in the [place] and therefore [employer] does not warrant that uses outside of the [place] are appropriate, unless specifically indicated otherwise. [employer]'s drug information does not endorse drugs, diagnose patients or recommend therapy. [employer] drug information is an informational resource designed to assist licensed healthcare practitioners in caring for their patients and/or to serve consumers viewing this service as a supplement to, and not a substitute for, the expertise, skill, knowledge and judgment of healthcare practitioners. The absence of a warning for a given drug or drug combination in no way should be construed to indicate that the drug or drug combination is safe, effective or appropriate for any given patient. [employer] does not assume any responsibility for any aspect of healthcare administered with the aid of information [employer] provides. The information contained herein is not intended to cover all possible uses, directions, precautions, warnings, drug interactions, allergic reactions, or adverse effects. If you have questions about the drugs you are taking, check with your doctor, nurse or pharmacist. Copyright 5343-7195 [employer]. Version: 18.02. Revision Date: 04/14/2018. lactobacillus acidophilus (LAK toe ba MARC us nery OFF il us) Acidophilus, Bacid (LAC), Florajen, Pooja-Q, Lactinex, Cindy-Bid, RisaQuad, Superdophilus What is the most important information I should know about lactobacillus acidophilus? Follow all directions on the product label and package. Tell each of your healthcare providers about all your medical conditions, allergies, and all medicines you use. What is lactobacillus acidophilus? Lactobacillus acidophilus is a bacteria that exists naturally in the body, primarily in the intestines and the vagina. Lactobacillus acidophilus has been used as a probiotic, or 'friendly bacteria.' Lactobacillus acidophilus has been used in alternative medicine as a likely effective aid in treating diarrhea in children with rotavirus. Lactobacillus acidophilus has been used in alternative medicine as a possibly effective aid (in children or adults) in preventing diarrhea caused by antibiotics, travel, chemotherapy, or hospitalization. Lactobacillus acidophilus is also possibly effective in treating irritable bowel syndrome, bacterial vaginal infection, colic in babies, lung infections in children, skin problems in children who are allergic to milk, and other conditions. Lactobacillus acidophilus has also been used to treat lactose intolerance, Crohn's disease, overgrowth of bacteria in the intestines, or vaginal yeast infections caused by antibiotics. However, research has shown that lactobacillus acidophilus may not be effective in treating these conditions. Other uses not proven with research have included treating indigestion, urinary tract infections, intestinal problems in premature babies, high cholesterol, lyme disease, cold sores, acne, cancer, the common cold, and other conditions. It is not certain whether lactobacillus acidophilus is effective in treating any medical condition. Medicinal use of this product has not been approved by the FDA. Lactobacillus acidophilus should not be used in place of medication prescribed for you by your doctor. Lactobacillus acidophilus is often sold as an herbal supplement. There are no regulated manufacturing standards in place for many herbal compounds and some marketed supplements have been found to be contaminated with toxic metals or other drugs. Herbal/health supplements should be purchased from a reliable source to minimize the risk of contamination. Lactobacillus acidophilus may also be used for other purposes not listed in this product guide. What should I discuss with my healthcare provider before taking lactobacillus acidophilus? Ask a doctor, pharmacist, or other healthcare provider if it is safe for you to use this product if you have: ?? short bowel syndrome; or ?? a weak immune system (caused by disease or by using certain medicine). Ask a doctor before using this product if you are or breast-feeding. Do not give any herbal/health supplement to a child without medical advice. How should I take lactobacillus acidophilus? When considering the use of herbal supplements, seek the advice of your doctor. You may also consider consulting a practitioner who is trained in the use of herbal/health supplements. If you choose to use lactobacillus acidophilus, use it as directed on the package or as directed by your doctor, pharmacist, or other healthcare provider. Do not use more of this product than is recommended on the label. Lactobacillus acidophilus is available in capsule and tablet form, or as a vaginal suppository. Powder or liquid forms may also be available. Some dairy products, especially yogurt, also contain lactobacillus acidophilus. The chewable tablet must be chewed before you swallow it. Do not use different forms of lactobacillus acidophilus at the same time without medical advice. Using different formulations together increases the risk of an overdose. Call your doctor if the condition you are treating with lactobacillus acidophilus does not improve, or if it gets worse while using this product. Store lactobacillus acidophilus in a sealed container as directed on the product label, away from moisture, heat, and light. What happens if I miss a dose? Skip the missed dose if it is almost time for your next scheduled dose. Do not use extra lactobacillus acidophilus to make up the missed dose. What happens if I overdose? Seek emergency medical attention or call the Poison Help line at . What should I avoid while taking lactobacillus acidophilus? Avoid taking lactobacillus acidophilus within 2 hours after you take any type of antibiotic medicine. What are the possible side effects of lactobacillus acidophilus? Get emergency medical help if you have signs of an allergic reaction: hives; difficulty breathing; swelling of your face, lips, tongue, or throat. Although not all side effects are known, lactobacillus acidophilus is thought to be likely safe when taken for a short period of time. Common side effects may include: ?? bloating; or ?? gas. This is not a complete list of side effects and others may occur. Call your doctor for medical advice about side effects. You may report side effects to FDA at 2-999-ECY-7658. What other drugs will affect lactobacillus acidophilus? Do not take lactobacillus acidophilus without medical advice if you are using any medications that can weaken your immune system, such as: ?? medicine to prevent organ transplant rejection; or ?? steroid medicine (prednisone, dexamethasone, methylprednisolone, and others). This list is not complete. Other drugs may interact with lactobacillus acidophilus, including prescription and adwu-smk-ubkqqwn medicines, vitamins, and herbal products. Not all possible interactions are listed in this product guide. Where can I get more information? Consult with a licensed healthcare professional before using any herbal/health supplement. Whether you are treated by a medical doctor or a practitioner trained in the use of natural medicines/supplements, make sure all your healthcare providers know about all of your medical conditions and treatments. Remember, keep this and all other medicines out of the reach of children, never share your medicines with others, and use this medication only for the indication prescribed. Every effort has been made to ensure that the information provided by [employer]. [employer]') is accurate, up-to-date, and complete, but no guarantee is made to that effect. Drug information contained herein may be time sensitive. [facility] [facility] information has been compiled for use by healthcare practitioners and consumers in the [place] and therefore [employer] does not warrant that uses outside of the [place] are appropriate, unless specifically indicated otherwise. [facility]'s drug information does not endorse drugs, diagnose patients or recommend therapy. [facility] drug information is an informational resource designed to assist licensed healthcare practitioners in caring for their patients and/or to serve consumers viewing this service as a supplement to, and not a substitute for, the expertise, skill, knowledge and judgment of healthcare practitioners. The absence of a warning for a given drug or drug combination in no way should be construed to indicate that the drug or drug combination is safe, effective or appropriate for any given patient. [facility] does not assume any responsibility for any aspect of healthcare administered with the aid of information [facility] provides. The information contained herein is not intended to cover all possible uses, directions, precautions, warnings, drug interactions, allergic reactions, or adverse effects. If you have questions about the drugs you are taking, check with your doctor, nurse or pharmacist. Copyright 2813-5056 [employer]. Version: 3.07. Revision Date: 10/24/2016. amoxicillin and clavulanate potassium (am OK i MARC in KLAV ue ANUPAMA ate byron TAS ee um) Augmentin, Augmentin ES-600, Augmentin XR What is the most important information I should know about amoxicillin and clavulanate potassium? You should not use this medicine if you have severe kidney disease, if you have had liver problems or jaundice while taking amoxicillin and clavulanate potassium, or if you are allergic to any penicillin or cephalosporin antibiotic, such as Amoxil, Ceftin, Cefzil, Moxatag, Omnicef, and others. What is amoxicillin and clavulanate potassium? Amoxicillin is a penicillin antibiotic that fights bacteria in the body. Clavulanate potassium is a beta-lactamase inhibitor that helps prevent certain bacteria from becoming resistant to amoxicillin. Amoxicillin and clavulanate potassium is a combination medicine used to treat many different infections caused by bacteria, such as sinusitis, pneumonia, ear infections, bronchitis, urinary tract infections, and infections of the skin. Amoxicillin and clavulanate potassium may also be used for purposes not listed in this medication guide. What should I discuss with my healthcare provider before taking amoxicillin and clavulanate potassium? You should not use this medicine if you are allergic to it, or if: ?? you have severe kidney disease (or if you are on dialysis); ?? you have had liver problems or jaundice while taking amoxicillin and clavulanate potassium; or ?? you are allergic to any penicillin or cephalosporin antibiotic, such as Amoxil, Ceftin, Cefzil, Moxatag, Omnicef, and others. To make sure amoxicillin and clavulanate potassium is safe for you, tell your doctor if you have ever had: ?? liver disease (hepatitis or jaundice); ?? kidney disease; or ?? mononucleosis. It is not known whether this medicine will harm an unborn baby. Tell your doctor if you are or plan to become . Amoxicillin and clavulanate potassium can make control pills less effective. Ask your doctor about using a non-hormonal control (condom, diaphragm with spermicide) to prevent . Amoxicillin and clavulanate potassium can pass into breast milk and may affect the nursing baby. Tell your doctor if you are breast-feeding. Do not give this medicine to a child without medical advice. The liquid or chewable tablet may contain phenylalanine. Talk to your doctor before using these forms of this medicine if you have phenylketonuria (PKU). How should I take amoxicillin and clavulanate potassium? Follow all directions on your prescription label. Do not take this medicine in larger or smaller amounts or for longer than recommended. Take the medicine every 12 hours, at the start of a meal to reduce stomach upset. Do not crush or chew the extended-release tablet. Swallow the pill whole, or break the pill in half and take both halves one at a time. If you have trouble swallowing a whole or half pill, talk with your doctor about using another form of amoxicillin and clavulanate potassium. The chewable tablet must be chewed before you swallow it. Shake the liquid medicine well just before you measure a dose. Measure liquid medicine with the dosing syringe provided, or with a special dose-measuring spoon or medicine cup. If you do not have a dose-measuring device, ask your pharmacist for one. Use this medicine for the full prescribed length of time. Your symptoms may improve before the infection is completely cleared. Skipping doses may also increase your risk of further infection that is resistant to antibiotics. Amoxicillin and clavulanate potassium will not treat a viral infection such as the flu or a common cold. This medicine can cause unusual results with certain lab tests for glucose (sugar) in the urine. Tell any doctor who treats you that you are using amoxicillin and clavulanate potassium. Store the tablets at room temperature away from moisture and heat. Store the liquid in the refrigerator. Throw away any unused liquid after 10 days. What happens if I miss a dose? Take the missed dose as soon as you remember. Skip the missed dose if it is almost time for your next scheduled dose. Do not take extra medicine to make up the missed dose. What happens if I overdose? Seek emergency medical attention or call the Poison Help line at . Overdose can cause nausea, vomiting, stomach pain, diarrhea, skin rash, drowsiness, hyperactivity, and decreased urination. What should I avoid while taking amoxicillin and clavulanate potassium? Avoid taking this medicine together with or just after eating a high-fat meal. This will make it harder for your body to absorb the medication. Antibiotic medicines can cause diarrhea, which may be a sign of a new infection. If you have diarrhea that is watery or bloody, call your doctor. Do not use anti-diarrhea medicine unless your doctor tells you to. What are the possible side effects of amoxicillin and clavulanate potassium? Get emergency medical help if you have signs of an allergic reaction: hives; difficult breathing; swelling of your face, lips, tongue, or throat. Call your doctor at once if you have: ?? severe stomach pain, diarrhea that is watery or bloody; ?? pale or yellowed skin, dark colored urine, fever, confusion or weakness; ?? loss of appetite, upper stomach pain, jaundice (yellowing of the skin or eyes); ?? easy bruising or bleeding; ?? little or no urination; or ?? severe skin reaction--fever, sore throat, swelling in your face or tongue, burning in your eyes, skin pain followed by a red or purple skin rash that spreads (especially in the face or upper body) and causes blistering and peeling. Common side effects may include: ?? nausea, diarrhea; or ?? vaginal itching or discharge; This is not a complete list of side effects and others may occur. Call your doctor for medical advice about side effects. You may report side effects to FDA at 7-120-PVD-3331. What other drugs will affect amoxicillin and clavulanate potassium? Tell your doctor about all your current medicines and any you start or stop using, especially: ?? allopurinol; ?? probenecid; or ?? a blood thinner--warfarin, Coumadin, Jantoven. This list is not complete. Other drugs may interact with amoxicillin and clavulanate potassium, including prescription and zgme-rvu-ntthdks medicines, vitamins, and herbal products. Not all possible interactions are listed in this medication guide. Where can I get more information? Your pharmacist can provide more information about amoxicillin and clavulanate potassium. Remember, keep this and all other medicines out of the reach of children, never share your medicines with others, and use this medication only for the indication prescribed. Every effort has been made to ensure that the information provided by [employer]. [employer]') is accurate, up-to-date, and complete, but no guarantee is made to that effect. Drug information contained herein may be time sensitive. [facility] information has been compiled for use by healthcare practitioners and consumers in the [place] and therefore [facility] does not warrant that uses outside of the [place] are appropriate, unless specifically indicated otherwise. [facility] drug information does not endorse drugs, diagnose patients or recommend therapy. [employer] drug information is an informational resource designed to assist licensed healthcare practitioners in caring for their patients and/or to serve consumers viewing this service as a supplement to, and not a substitute for, the expertise, skill, knowledge and judgment of healthcare practitioners. The absence of a warning for a given drug or drug combination in no way should be construed to indicate that the drug or drug combination is safe, effective or appropriate for any given patient. [employer] does not assume any responsibility for any aspect of healthcare administered with the aid of information [facility] provides. The information contained herein is not intended to cover all possible uses, directions, precautions, warnings, drug interactions, allergic reactions, or adverse effects. If you have questions about the drugs you are taking, check with your doctor, nurse or pharmacist. Copyright 6577-6799 [employer]. Version: .. Revision Date: 05/19/2017. doxycycline (oral/injection) (DOX [facility]) Acticlate, Adoxa, Alodox, Avidoxy, Doryx, Mondoxyne NL, Monodox, Morgidox, Oracea, Oraxyl, Targadox, Vibramycin What is the most important information I should know about doxycycline? You should not take this medicine if you are allergic to any tetracycline antibiotic. Children younger than 8 years old should use doxycycline only in cases of severe or life-threatening conditions. This medicine can cause permanent yellowing or graying of the teeth in children Using doxycycline during could harm the unborn baby or cause permanent tooth discoloration later in the baby's life. What is doxycycline? Doxycycline is a tetracycline antibiotic that fights bacteria in the body. Doxycycline is used to treat many different bacterial infections, such as acne, urinary tract infections, intestinal infections, eye infections, gonorrhea, chlamydia, periodontitis (gum disease), and others. Doxycycline is also used to treat blemishes, bumps, and acne-like lesions caused by rosacea. Doxycycline will not treat facial redness caused by rosacea. Some forms of doxycycline are used to prevent malaria, to treat anthrax, or to treat infections caused by mites, ticks, or lice. Doxycycline may also be used for purposes not listed in this medication guide. What should I discuss with my healthcare provider before taking doxycycline? You should not take this medicine if you are allergic to doxycycline or other tetracycline antibiotics such as demeclocycline, minocycline, tetracycline, or tigecycline. Tell your doctor if you have ever had: ?? liver disease; ?? kidney disease; ?? asthma or sulfite allergy; ?? increased pressure inside your skull; or ?? if you also take isotretinoin, seizure medicine, or a blood thinner such as warfarin (Coumadin). If you are using doxycycline to treat gonorrhea, your doctor may test you to make sure you do not also have syphilis, another sexually transmitted disease. Taking this medicine during may affect tooth and bone development in the unborn baby. Taking doxycycline during the last half of can cause permanent tooth discoloration later in the baby's life. Tell your doctor if you are or if you become . Doxycycline can make control pills less effective. Ask your doctor about using a non-hormonal control (condom, diaphragm with spermicide) to prevent . Doxycycline can pass into breast milk and may affect bone and tooth development in a nursing . Do not breast-feed while you are taking doxycycline. Doxycycline can cause permanent yellowing or graying of the teeth in children younger than 8 years old. Children should use doxycycline only in cases of severe or life-threatening conditions such as anthrax or [place] spotted fever. The benefit of treating a serious condition may outweigh any risks to the child's tooth development. How should I take doxycycline? Follow all directions on your prescription label and read all medication guides or instruction sheets. Use the medicine exactly as directed. Take doxycycline with a full glass of water. Drink plenty of liquids while you are taking doxycycline. Read and carefully follow any Instructions for Use provided with your medicine. Ask your doctor or pharmacist if you do not understand these instructions. Most brands of doxycyline may be taken with food or milk if the medicine upsets your stomach. Different brands of doxycycline may have different instructions about taking them with or without food. Take Oracea on an empty stomach, at least 1 hour before or 2 hours after a meal. You may need to split a doxycycline tablet to get the correct dose. Follow your doctor's instructions. Swallow a delayed-release capsule or tablet whole. Do not crush, chew, break, or open it. Measure liquid medicine with the dosing syringe provided, or with a special dose-measuring spoon or medicine cup. If you do not have a dose-measuring device, ask your pharmacist for one. If you take doxycycline to prevent malaria: Start taking the medicine 1 or 2 days before entering an area where malaria is common. Continue taking the medicine every day during your stay and for at least 4 weeks after you leave the area. Doxycycline is usually given by injection only if you are unable to take the medicine by mouth. A healthcare provider will give you this injection as an infusion into a vein. Use this medicine for the full prescribed length of time, even if your symptoms quickly improve. Skipping doses can increase your risk of infection that is resistant to medication. Doxycycline will not treat a viral infection such as the flu or a common cold. Store at room temperature away from moisture, heat, and light. Throw away any unused medicine after the expiration date on the label has passed. Using doxycycline can cause damage to your kidneys. What happens if I miss a dose? Take the medicine as soon as you can, but skip the missed dose if it is almost time for your next dose. Do not take two doses at one time. What happens if I overdose? Seek emergency medical attention or call the Poison Help line at . What should I avoid while taking doxycycline? Do not take iron supplements, multivitamins, calcium supplements, antacids, or laxatives within 2 hours before or after taking doxycycline. Avoid taking any other antibiotics with doxycycline unless your doctor has told you to. Doxycycline could make you sunburn more easily. Avoid sunlight or tanning beds. Wear protective clothing and use sunscreen (SPF 30 or higher) when you are outdoors. Antibiotic medicines can cause diarrhea, which may be a sign of a new infection. If you have diarrhea that is watery or bloody, call your doctor. Do not use anti-diarrhea medicine unless your doctor tells you to. What are the possible side effects of doxycycline? Get emergency medical help if you have signs of an allergic reaction (hives, difficult breathing, swelling in your face or throat) or a severe skin reaction (fever, sore throat, burning in your eyes, skin pain, red or purple skin rash that spreads and causes blistering and peeling). Seek medical treatment if you have a serious drug reaction that can affect many parts of your body. Symptoms may include: skin rash, fever, swollen glands, flu-like symptoms, muscle aches, severe weakness, unusual bruising, or yellowing of your skin or eyes. This reaction may occur several weeks after you began using doxycycline. Call your doctor at once if you have: ?? severe stomach pain, diarrhea that is watery or bloody; ?? throat irritation, trouble swallowing; ?? chest pain, irregular heart rhythm, feeling short of breath; ?? little or no urination; ?? low white blood cell counts--fever, chills, swollen glands, body aches, weakness, pale skin, easy bruising or bleeding; ?? increased pressure inside the skull--severe headaches, ringing in your ears, dizziness, nausea, vision problems, pain behind your eyes; or ?? signs of liver or pancreas problems--loss of appetite, upper stomach pain (that may spread to your back), tiredness, nausea or vomiting, fast heart rate, dark urine, jaundice (yellowing of the skin or eyes). Common side effects may include: ?? nausea, vomiting, upset stomach, loss of appetite; ?? mild diarrhea; ?? skin rash or itching; ?? darkened skin color; or ?? vaginal itching or discharge. This is not a complete list of side effects and others may occur. Call your doctor for medical advice about side effects. You may report side effects to FDA at 5-479-TNF-3971. What other drugs will affect doxycycline? Sometimes it is not safe to use certain medications at the same time. Some drugs can affect your blood levels of other drugs you take, which may increase side effects or make the medications less effective. Other drugs may affect doxycycline, including prescription and whxw-sxh-fyesoie medicines, vitamins, and herbal products. Tell your doctor about all your current medicines and any medicine you start or stop using. Where can I get more information? Your pharmacist can provide more information about doxycycline. Remember, keep this and all other medicines out of the reach of children, never share your medicines with others, and use this medication only for the indication prescribed. Every effort has been made to ensure that the information provided by [employer]. [employer]') is accurate, up-to-date, and complete, but no guarantee is made to that effect. Drug information contained herein may be time sensitive. [facility] [facility] information has been compiled for use by healthcare practitioners and consumers in the [place] and therefore [facility] does not warrant that uses outside of the [place] are appropriate, unless specifically indicated otherwise. [employer] drug information does not endorse drugs, diagnose patients or recommend therapy. [employer] drug information is an informational resource designed to assist licensed healthcare practitioners in caring for their patients and/or to serve consumers viewing this service as a supplement to, and not a substitute for, the expertise, skill, knowledge and judgment of healthcare practitioners. The absence of a warning for a given drug or drug combination in no way should be construed to indicate that the drug or drug combination is safe, effective or appropriate for any given patient. [facility] does not assume any responsibility for any aspect of healthcare administered with the aid of information [facility] provides. The information contained herein is not intended to cover all possible uses, directions, precautions, warnings, drug interactions, allergic reactions, or adverse effects. If you have questions about the drugs you are taking, check with your doctor, nurse or pharmacist. Copyright 9091-4863 [employer]. Version: 21.02. Revision Date: 10/06/2018. Emergency Awareness and Preventative Care STROKE is an EMERGENCY Every Minute Counts Act FAST and Check for these signs: FACE Does the face look uneven? ARM Does one arm drift down? SPEECH Does their speech sound strange? TIME Call at any sign of stroke Stroke Risk Factors Atrial Fibrillation (irregular heartbeat) Diabetes Family history of stroke Heart Disease Heavy alcohol use High Blood Pressure High Cholesterol Physical inactivity and obesity Smoking Cigarette Smoking The facts are clear, cigarette smoking will shorten your life. Smoking can cause many illnesses along the way. As a healthcare provider, we recommend that you stop smoking. Assistance with quitting is available by contacting 1-368-GZFR-NOW. This is a free resource providing counseling, support, and referral. Or you may contact your personal physician. National Suicide Prevention Lifeline: The National Suicide Prevention Lifeline is a national network of local crisis centers that provides free and confidential emotional support to people in suicidal crisis or emotional distress 24 hours a day, 7 days a week. Don't Wait! Stop a Heart Attack Before it Starts What is a heart attack? A heart attack is damage or to a part of the heart from severely decreased or lack of blood flow to the heart. Over time, arteries can become narrow from the buildup of fat and cholesterol, which is called plaque. The plaque can rupture causing a blood clot to form. When the blood clot forms, the artery can become severely narrowed or completely blocked, causing a heart attack. Heart attack is the leading cause of in the [place]. 85% of muscle damage occurs within the first 2 hours. Delay in the recognition of heart attack symptoms increases the chances of . Know the early symptoms of a heart attack: Nausea Feeling of fullness in chest Jaw Pain Pain that travels down one or both arms Fatigue/being tired Anxiety Back Pain Chest pressure, squeezing, or discomfort Shortness of breath Sweating, or a cold sweat Feeling of impending doom There are unusual signs of a heart attack, too! Women, the elderly, and diabetics may present with atypical symptoms: Fainting/dizziness Weakness Confusion Risk Factors for a Heart Attack Some heart disease risk factors, such as age and family history, cannot be changed. Others, like smoking and lack of exercise, can be changed. Smoking High Cholesterol High Blood Pressure Family History Obesity Age Gender (Males are at higher risk) Lack of Exercise Diabetes Diet Stress Excessive Alcohol Intake If you or someone you know is experiencing the signs and symptoms of a heart attack, DON???T DELAY. Call immediately and seek help. If someone collapses, perform CPR! Do not attempt to drive if you are having symptoms of heart attack. Hands-Only CPR Why Hands-Only CPR? Hands-Only CPR has been shown to be as effective as conventional CPR for cardiac arrests that occur outside of a hospital. Survival depends on immediately receiving CPR from someone nearby. How do you perform Hands-Only CPR? There are two easy steps: Call if you see a teen or adult collapse Push hard and fast in the center of the chest at a beat of 100 beats per minute. Save a life! 4 WAYS TO GET AHEAD OF SEPSIS SEPSIS is a MEDICAL EMERGENCY. Time matters! Infections put you and your family at risk for a life-threatening condition called sepsis. Sepsis is the body's extreme response to an infection. It is life-threatening, and without timely treatment, sepsis can rapidly lead to tissue damage, organ failure, and . Sepsis happens when an infection you already have-in your skin, lungs, urinary tract or somewhere else-triggers a chain reaction throughout your body. 1 PREVENT INFECTIONS Take good care of chronic conditions. Talk to your doctor about getting the recommended vaccines. 2 PRACTICE GOOD HYGIENE Wash your hands frequently. Keep cuts or open sores clean and covered until they are healed. 3 KNOW THE SYMPTOMS Confusion or disorientation Shortness of breath High heart rate Fever, shivering, or feeling very cold Extreme pain or discomfort Clammy or sweaty skin 4 ACT FAST Get medical care IMMEDIATELY if you suspect sepsis or if you have an infection that is not getting better or is getting worse. To learn more about sepsis and how to prevent infections, visit www.cdc.gov/sepsis. Test Results Laboratory or Other Results This Visit (last charted value for your 05/28/2019 visit) Hematology 06/01/2019 7:23 AM WBC: 5.6 K/uL -- Normal range between ( 3.6 and 9.5 ) RBC: 4.56 Million/uL -- Normal range between ( 4.20 and 5.70 ) Hct: 38.3 % -- Normal range between ( 40.1 and 51.0 ) Hgb: 12.2 g/dL -- Normal range between ( 13.5 and 17.3 ) Platelet Count: 160 K/uL -- Normal range between ( 163 and 369 ) MCH: 26.8 pg -- Normal range between ( 25.6 and 32.2 ) MCHC: 31.9 Gram/dL -- Normal range between ( 32.2 and 36.5 ) MCV: 84.0 fL -- Normal range between ( 79.0 and 94.8 ) Slide Review: No RDW: 16.2 % -- Normal range between ( 11.7 and 14.9 ) MPV: 11.9 fL -- Normal range between ( 9.4 and 12.4 ) 05/30/2019 6:33 AM Eos %: 3.8 % -- Normal range between ( 0.0 and 7.0 ) [place] #: 0.86 K/uL -- Normal range between ( 0.16 and 1.00 ) Eos #: 0.40 x10(3)/uL -- Normal range between ( 0.00 and 0.80 ) [place] %: 8.2 % -- Normal range between ( 3.0 and 9.0 ) Baso %: 0.6 % -- Normal range between ( 0.0 and 1.5 ) Baso #: 0.06 x10(3)/uL -- Normal range between ( 0.00 and 0.20 ) Neut %: 66.6 % -- Normal range between ( 34.0 and 71.0 ) Neut #: 7.03 K/uL -- Normal range between ( 1.56 and 6.13 ) Lymph %: 20.2 % -- Normal range between ( 19.3 and 53.1 ) Lymph #: 2.13 x10(3)/uL -- Normal range between ( 1.00 and 3.90 ) IG#: 0.06 x10(3)/uL -- Normal range between ( 0.00 and 0.05 ) IG%: 0.60 % -- Normal range between ( 0.00 and 0.60 ) Urinalysis 05/28/2019 7:06 PM Ur RBC: 0-2 /HPF Urine Nitrite: Negative Urine Leukocyte Esterase: Negative Urine Appearance: Clear Urine Glucose Dipstick: >=1000 Urine Blood Dipstick: Negative Urine Urobilinogen Dipstick: 0.2 EU/dL Urine Protein Dipstick: Negative Urine Color: Yellow Urine Ketones Dipstick: Negative Urine pH Dipstick: 6.0 -- Normal range between ( 6.0 and 8.0 ) Urine Bilirubin Dipstick: Negative Urine Specific [place]: >1.030 -- Normal range between ( 1.005 and 1.030 ) Urine Type.: U CleanCatch Microbiology 05/29/2019 4:00 AM Urine Culture: See Result Blood Bank 05/28/2019 9:09 PM ABO/Rh (ECHO): O POS Antibody Screen: Negative ABSC 05/28/2019 7:06 PM ABO/Rh Repeat: O POS General Chemistry 06/01/2019 4:03 PM Glucose POC2: 233 mg/dL -- Normal range between ( 70 and 110 ) 06/01/2019 10:54 AM Device Comment 1: Device Comment 1 06/01/2019 7:23 AM Creatinine Level: 0.90 mg/dL -- Normal range between ( 0.70 and 1.30 ) Sodium Level: 135 mmol/L -- Normal range between ( 136 and 146 ) Potassium Level: 2.9 mmol/L -- Normal range between ( 3.5 and 5.1 ) Chloride Level: 101 mmol/L -- Normal range between ( 102 and 112 ) Carbon Dioxide Level: 33 mmol/L -- Normal range between ( 21 and 32 ) Anion Gap: 4 -- Normal range between ( 9 and 20 ) Bun/Creatinine: 12.2 -- Normal range between ( 8.0 and 20.0 ) Calcium Level: 9.0 mg/dL -- Normal range between ( 8.4 and 10.1 ) eGFR : >60 mL/min/1.73m2 eGFR NonAfrican: >60 mL/min/1.73m2 Glucose Level: 205 mg/dL -- Normal range between ( 74 and 106 ) Blood Urea Nitrogen: 11 mg/dL -- Normal range between ( 7 and 22 ) 05/30/2019 6:33 AM Magnesium Level: 1.9 mg/dL -- Normal range between ( 1.5 and 2.4 ) documented in this encounter Plan of Treatment Not on file documented as of this encounter Visit Diagnoses Not on filedocumented in this encounter
--- OUTSIDE RECORDS SUMMARY | 2024-10-25 20:20 | XMS_ITS | Encounter Summary ---
Author Organization [employer] Address [address] [place] [address] Care Team Providers Care Cardiac Exercise Specialist Name Role Phone Unavailable Primary Care Provider Unavailabl e Encounter Details Date Type Department Care Team (Late st Contact Info) Description 05/29/2019 Transcribed Document [facility] [place] [address] [place] [address] ProviderMelanie MD [facility] [place] [address] Social History Tobacco Use Types Packs/Day Years Used Date Smoking Tobacco: Never Assessed Sex and Gender Information Value Date Recorded Sex Assigned at Not on file Legal Sex Male 4:07 PM CDT Gender Identity Not on file Sexual Orientation Not on file documented as of this encounter Miscellaneous Notes * Cerner Conversion Note - Melanie ProviderMD - 05/29/2019 8:00 AM GENERAL LEDGER BOOKKEEPER Consult Phone Call Documentation Entered On: 05/29/2019 8:06 EST Performed On: 05/29/2019 8:00 EST by SARAH BARILLAS Phone Call for Consults Consult Reason : scrotal abscess Physician Requesting Consult : GUILLERMO SCOTT MD-INT Physician Requested for Consult : KATARZYNA RIZO MD-INF Physician Covering for Consult : KATARZYNA RIZO MD-INF Date and Time Call Returned : 05/29/2019 8:06 EST Physician Returning Call : KATARZYNA RIZO MD-INF SARAH BARILLAS - 05/29/2019 8:05 EST documented in this encounter Plan of Treatment Not on file documented as of this encounter Visit Diagnoses Not on filedocumented in this encounter
--- OUTSIDE RECORDS SUMMARY | 2024-10-25 20:20 | XMS_ITS | Encounter Summary ---
Author Organization [employer] Address [address] [place] [address] Care Team Providers Care Ice Cutter Name Role Phone Unavailable Primary Care Provider Unavailabl e Encounter Details Date Type Department Care Team (Late st Contact Info) Description 06/10/2019 Transcribed Document [facility] [place] [address] [place] [address] ProviderMelanie MD [address] [place] [phone] Social History Tobacco Use Types Packs/Day Years Used Date Smoking Tobacco: Never Assessed Sex and Gender Information Value Date Recorded Sex Assigned at Not on file Legal Sex Male 4:07 PM CDT Gender Identity Not on file Sexual Orientation Not on file documented as of this encounter Miscellaneous Notes * Cerner Conversion Note - Historical ProviderMD - 06/10/2019 2:25 PM FRUIT PICKER DATE OF ADMISSION: 06/09/2019 HISTORY: This is a 59-year-old male, resident of [place], [place], we are seeing on referral from his primary care provider, Dr. Claudy Pro. We were asked to assume management of a negative pressure wound therapy on his scrotum. This patient has a complicated urologic history. 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 This was associated with a right inguinal hernia as well. He eventually came to an orchiectomy on the right in 2004. All of which healed up without undue difficulty. He had not had particular difficulty with the left hemiscrotum until he underwent a CABG procedure at this past November. He then started having pain and discomfort in the left testicle related again to hydrocele. An attempt was made to resolve the hydrocele surgically in March 2019, but unfortunately got a significant hematoma opened and started draining, and he also developed epididymitis with orchitis. He was admitted here at [facility] earlier this month for a surgical cleanout and additional debridement. This time, he was treated with a negative pressure wound system, which is still in place. The testicle remains. He has been having difficulty at home with frequent signaling of the device. He has one of the Talaentia products, and unfortunately, we have found this to be a recurring theme with this particular product. The device does not seem to be actually malfunctioning; it just signals malfunction with great frequency. The amount of drainage in the canister has been quite small. The patient's pain is improved with the exception of dressing change time. He is also being followed by infectious disease physician, Dr. Chuck Muller, who currently has him on a combination of Augmentin and doxycycline. The patient's additional past medical history includes an open cardiac bypass in November 2018. MEDICATIONS: The patient's current ongoing medications include: 1. Low-dose aspirin. 2. Carvedilol. 3. Crestor. 4. Cyclobenzaprine. 5. Desipramine. 6. Duloxetine. 7. Farxiga. 8. Janumet. 9. Lisinopril. 10. Hydrochlorothiazide. 11. Lovastatin. 12. Extended-release morphine. 13. Omeprazole. 14. Nifedipine. 15. Trazodone. He is intolerant of trimethoprim sulfa. The patient denies ever using nicotine in any form. No significant use of alcohol. He lives at home with his . Currently, he is somewhat limited in his ability to ambulate and provide for activities of daily living. He is a chronic pain patient and is not employed. REVIEW OF SYSTEMS: Further review of systems, he does have type 2 diabetes. He has fairly good control. His glycosylated hemoglobins run in the low 7s; he believes currently. At this time, he is not aware of any diabetic nephropathy. He denied having significant diabetic neuropathy. He says he has a history of atrial fibrillation, but we note he is not on any chronic anticoagulant. He does have known coronary artery disease; also treated for hypertension. Denies any history of seizure. No previous wound healing difficulty. No known autoimmune disorder. PHYSICAL EXAMINATION: GENERAL: Adult male, who has a little bit of a painful effect. It is also noted that his often spoke for him. He was perfectly capable of fluent and articulate speech. Intellectual function seems to be certainly within normal limits. VITAL SIGNS: He was found to be afebrile today. Attention was then directed to the scrotum area. There is an open wound here that measures 5 x 3.4 x 0.8 cm. The depth largely reflects hypertrophied and indurated scrotal skin. The testicle forms the wound bed, but already has granulation tissue appearing. There is some edematous congestion of the scrotum, but he does not appear to have active inflammation. The urethra evidently is not impaired by any of this inflammation. ASSESSMENT: 59-year-old male has an open wound on his left hemiscrotum from repeated surgery for resolution of an infected hydrocele and epididymis. Complications, primarily diabetes. He is also a chronic pain patient, but does seem to be tolerating this situation reasonably well. PLAN: He seems to be challenged with his current negative pressure system. Therefore, we will get him a different system to see if that will be less disconcerting to use. Basically, we are just dealing with inappropriate signaling repeatedly. The wound bed, otherwise, looks good, and obviously he is responding to the negative pressure and I would like to keep using it and he is agreeable to that. We did review his nutritional status. He does say he eats a significant quantity of protein, especially egg whites. He certainly wants to keep that going. He does take some vitamin supplements. He was not sure what all was in his current vitamins, so my recommendation was for him to be sure that he is getting 800 international units of vitamin A daily, 1000 mg of vitamin C daily, and a B complex. I also wrote him a prescription for zinc sulfate 220 mg 1 daily for a month. His antibiotic supervision will continue with Dr. Muller. We have set him up for a 1-week return. He does have home health assisting with wound vacuum changes at home. If the drainage is going to be minimal and we can keep the seal in place, we could probably get by with just 2 changes per week. /[id number] MD MELI Terry III/LESLEY / MELI / JOVANY CC: MD Chuck Martinez MD Electronically signed by Angel [facility] Conversion Nursing Professor Cerner at 09/05/2022 2:16 PM CDT documented in this encounter Plan of Treatment Not on file documented as of this encounter Visit Diagnoses Not on filedocumented in this encounter
--- OUTSIDE RECORDS SUMMARY | 2024-10-25 20:20 | XMS_ITS | Encounter Summary ---
Author Organization [employer] Address [address] [place] [address] Care Team Providers Care Accounts Payable Technician Name Role Phone Unavailable Primary Care Provider Unavailabl e Encounter Details Date Type Department Care Team (Late st Contact Info) Description 06/01/2019 Transcribed Document [facility] [place] [address] [place] [address] ProviderMelanie MD [address] [place] [phone] Social History Tobacco Use Types Packs/Day Years Used Date Smoking Tobacco: Never Assessed Sex and Gender Information Value Date Recorded Sex Assigned at Not on file Legal Sex Male 4:07 PM CDT Gender Identity Not on file Sexual Orientation Not on file documented as of this encounter Miscellaneous Notes * Cerner Conversion Note - Melanie ProviderMD - 06/01/2019 4:08 PM RESP THERAPIST Patient: TERRI MOREL Age: 59 years Sex: [...] the wound and he has been taking [place] Percocet and morphine at home with no [...] tissue, +infection; no cultures submitted per micro 06/01/19 He has much less scrotal pain which is better controlled, constant at present but dull, nonradiating, worse with palpation, better with pain meds and 2 out of 10. No headache photophobia or neck stiffness. No shortness of breath cough or hemoptysis. No nausea vomiting diarrhea or abdominal pain. No new dysuria hematuria or pyuria. Review of Systems: 06/01/19: CONSTITUTION: Denies chills, sweats, malaise, weakness, fatigue, [...] 24 hrs) Last Charted Minimum Maximum Temp 98.4 (JUN 01 06:00) 97.9 (MAY 31 22:15) 98.1 (MAY 31 18:00) Mon HR 70 (JUN 01 06:00) 70 (JUN 01:) 90 (MAY 31:) Resp Rate 18 (JUN 01:00) 18 (MAY 31 18:00) 18 (MAY 31:) SBP H 152 (JUN 01:00) 132 (MAY 31:) H 152 (JUN 01:) DBP 74 (JUN 01:00) 73 (JUN 01 02:30) H 96 (MAY 31:) MAP 88 (JUN 01:00) 88 (JUN 01:00) 107 (MAY 31:) SpO2 97 (JUN 01 08:00) 96 (MAY 31:00) 99 (MAY 31 20:31) Exam: Gen: awake, in no acute distress, [...] is in scrotal ; visible skin with less edema and less erythema and no Visible purulence. No discrete mass bulge or fluctuance. No crepitus or bulla visible. MS: FROM in all extremities, no pain with motion, no swelling or edema noted. no spinal tenderness SKIN: No eruptions, lesions, or rashes NEURO: awake No peripheral stigmata/phenomena of endocarditis IV without obvious redness or drainage Labs:Labs (Last four charted values) WBC 5.6 (JUN 01) 7.1 (MAY 31) H 10.5 (MAY 30) 7.2 (MAY 29) HB L 12.2 (JUN 01) L 12.4 (MAY 31) 13.7 (MAY 30) L 13.0 (MAY 29) HCT L 38.3 (JUN 01) L 39.7 (MAY 31) 44.7 (MAY 30) 41.9 (MAY 29) Plt L 160 (JUN 01) L 158 (MAY 31) 234 (MAY 30) 183 (MAY 29) Na L 135 (JUN 01) 136 (MAY 31) 137 (MAY 30) 139 (MAY 29) K L 2.9 (JUN 01) C 2.8 (MAY 31) L 3.2 (MAY 30) L 3.0 (MAY 29) Cl L 101 (JUN 01) 104 (MAY 31) 102 (MAY 30) 105 (MAY 29) CO2 H 33 (JUN 01) 29 (MAY 31) 31 (MAY 30) 29 (MAY 29) BUN 11 (JUN 01) 9 (MAY 31) 8 (MAY 30) 7 (MAY 29) Cr 0.90 (JUN 01) 0.90 (MAY 31) 1.10 (MAY 30) 0.70 (MAY 29) Glu R H 205 (JUN 01) H 168 (MAY 31) H 262 (MAY 30) H 150 (MAY 29) Ca 9.0 (JUN 01) 9.1 (MAY 31) 9.3 (MAY 30) 9.0 (MAY 29) Lactic 2.0 (MAY 28) PT 10.7 (MAY 28) INR 1.0 (MAY 28) PTT 27.1 (MAY 28) AST 20 (MAY 28) ALT 19 (MAY 28) ALK P 93 (MAY 28) T Bili 0.3 (MAY 28) PTN 8.2 (MAY 28) ALB 3.8 (MAY 28) Rad:No Radiology Results Found IMPRESSION: 1. Acute orchitis/scrotal cellulitis/history that suggests abscess and prior hematoma of the scrotum after prior surgery in Mar 2019; I d/w Dr Pro and he reports that he received outpatient augmentin, no outpatient/operative culture data and infection at soft tissue level. Empiric mixed coverage ongoing with daptomycin/Zosyn as inpatient. Further adjustments to depend on clinical course/study results and response to therapy. Any further timing/option/threshold for further I&D at discretion of urology; no culture data to guide abx and much better while here so far; likely taper to oral augmentin/doxy and IF not steaidly better with this, then urology would need to consider sending tissue for culture and consider longer duration of IV agents empirically 2. Acute Scrotal cellulitis 3. Status post left hydrocelectomy on 04/04/19 4. Coronary artery disease status post CABG 11/22/18 5. Diabetes mellitus type 2; you need to tightly control blood sugar to give best chance for healing 6. Ongoing tobacco abuse RECOMMENDATIONS/PLANS: 1. continue Zosyn while here 2. IV dapto while here 3. Continue to follow cultures and sensitivity [...] further serious morbidity and other serious sequela d/w Dr Lauren; likely oral augmentin/doxy for home and f/u with me Thursday in clinic Electronically signed by French Ortiz Conversion [employer] Landscape Ecology Professor Cerner at 09/05/2022 2:24 PM CDT documented in this encounter Plan of Treatment Not on file documented as of this encounter Visit Diagnoses Not on filedocumented in this encounter
--- OUTSIDE RECORDS SUMMARY | 2024-10-25 20:20 | XMS_ITS | Encounter Summary ---
Author Organization [employer] Address [address] [place] [address] Care Team Providers Care Boom Cat Operator Name Role Phone Unavailable Primary Care Provider Unavailabl e Encounter Details Date Type Department Care Team (Late st Contact Info) Description 05/29/2019 Transcribed Document [facility] [place] Family Medicine [address] [place] [address] ProviderMelanie [place] [address] Social History Tobacco Use Types Packs/Day Years Used Date Smoking Tobacco: Never Assessed Sex and Gender Information Value Date Recorded Sex Assigned at Not on file Legal Sex Male 4:07 PM CDT Gender Identity Not on file Sexual Orientation Not on file documented as of this encounter Miscellaneous Notes * Cerner Conversion Note - Historical ProviderMD - 05/29/2019 5:00 AM HONING MACHINE OPERATOR Chart Check - Review Order Profile Entered On: 05/29/2019 4:42 EST Performed On: 05/29/2019 5:00 EST by Jenna Vargas Lpn Chart Check Powerplans Initiated/Discontinued as Appropriate : Yes All Active Orders Reviewed : Yes Jenna Vargas Lpn - 05/29/2019 4:42 EST documented in this encounter Plan of Treatment Not on file documented as of this encounter Visit Diagnoses Not on filedocumented in this encounter
--- OUTSIDE RECORDS SUMMARY | 2024-10-25 20:20 | XMS_ITS | Encounter Summary ---
Author Organization [employer] Address [address] [place] [address] Care Team Providers Care Powerhouse Helper Name Role Phone Unavailable Primary Care Provider Unavailabl e Encounter Details Date Type Department Care Team (Late st Contact Info) Description 05/29/2019 Transcribed Document [facility] [place] [address] [place] [address] ProviderMelanie MD [address], [place] [address] Social History Tobacco Use Types Packs/Day Years Used Date Smoking Tobacco: Never Assessed Sex and Gender Information Value Date Recorded Sex Assigned at Not on file Legal Sex Male 4:07 PM CDT Gender Identity Not on file Sexual Orientation Not on file documented as of this encounter Miscellaneous Notes * Cerner Conversion Note - Historical ProviderMD - 05/29/2019 2:00 AM DELIVERY DIRECTOR Tip Tester Details Entered On: 05/29/2019 3:59 EST Performed On: 05/29/2019 2:00 EST by Jenna Vargas Lpn Order Details Transport Mode Order Detail : Ambulatory Isolation Precautions Order Detail : Standard Precautions Order Detail : N/A IV Order Detail : 1 Oxygen Order Detail : 0 Nurse Collect Order Detail : 0 Lift/Transfer : Independent Central Line Order Detail : No Room Service : Appropriate Arterial Line : No Jenna Vargas Lpn - 05/29/2019 3:59 EST Electronically signed by Angel [facility] Conversion Human Resources Designate Cerner at 09/05/2022 2:19 PM CDT documented in this encounter Plan of Treatment Not on file documented as of this encounter Visit Diagnoses Not on filedocumented in this encounter
--- OUTSIDE RECORDS SUMMARY | 2024-10-25 20:20 | XMS_ITS | Encounter Summary ---
Author Organization [employer] Address [address] [place] [address] Care Team Providers Care Customer Services Supervisor Name Role Phone Unavailable Primary Care Provider Unavailabl e Encounter Details Date Type Department Care Team (Late st Contact Info) Description 05/31/2019 Transcribed Document [facility] [place] [address] [place] [address] ProviderMelanie MD [address] [place] [id number] Social History Tobacco Use Types Packs/Day Years Used Date Smoking Tobacco: Never Assessed Sex and Gender Information Value Date Recorded Sex Assigned at Not on file Legal Sex Male 4:07 PM CDT Gender Identity Not on file Sexual Orientation Not on file documented as of this encounter Miscellaneous Notes * Cerner Conversion Note - Melanie ProviderMD - 05/31/2019 4:40 PM BREAKFAST ATTENDANT Patient: TERRI MOREL Age: 59 years Sex: [...] the wound and he has been taking [place] Percocet and morphine at home with no [...] tissue, +infection; no cultures submitted per micro 05/31/19 He has scrotal pain which is better controlled, constant at present but dull, nonradiating, worse with palpation, better with pain meds and 2 out of 10. No headache photophobia or neck stiffness. No shortness of breath cough or hemoptysis. No nausea vomiting diarrhea or abdominal pain. No new dysuria hematuria or pyuria. Review of Systems: 05/31/19: CONSTITUTION: Denies chills, sweats, malaise, weakness, fatigue, [...] 24 hrs) Last Charted Minimum Maximum Temp 97.5 (MAY 31:) 97.5 (MAY 31:) 98.1 (MAY 30 18:30) Apical HR 72 (MAY 31:22) 72 (MAY 31:) 72 (MAY 31:) Mon HR 85 (MAY 31:) 46 (MAY 30:31) 92 (MAY 31 10:) Resp Rate 18 (MAY 31:) 14 (MAY 30 18:30) 19 (MAY 31 03:00) SBP H 151 (MAY 31:) 126 (MAY 30:) H 169 (MAY 30:31) DBP H 96 (MAY 31:) 75 (MAY 31 12:00) H 106 (MAY 31:) MAP 116 (MAY 31:) 100 (MAY 30:30) 134 (MAY 30:31) SpO2 96 (MAY 31:) L 92 (MAY 31 03:00) 98 (MAY 31:) Exam: Gen: awake, in no acute distress, [...] mild edema and erythema but no Visible purulence. No discrete mass bulge or fluctuance. No crepitus or bulla visible. MS: FROM in all extremities, no pain with motion, no swelling or edema noted. no spinal tenderness SKIN: No eruptions, lesions, or rashes NEURO: awake No peripheral stigmata/phenomena of endocarditis IV without obvious redness or drainage Labs:Labs (Last four charted values) WBC 7.1 (MAY 31) H 10.5 (MAY 30) 7.2 (MAY 29) 8.3 (MAY 28) HB L 12.4 (MAY 31) 13.7 (MAY 30) L 13.0 (MAY 29) 14.8 (MAY 28) HCT L 39.7 (MAY 31) 44.7 (MAY 30) 41.9 (MAY 29) 46.5 (MAY 28) Plt L 158 (MAY 31) 234 (MAY 30) 183 (MAY 29) 226 (MAY 28) Na 136 (MAY 31) 137 (MAY 30) 139 (MAY 29) 140 (MAY 28) K C 2.8 (MAY 31) L 3.2 (MAY 30) L 3.0 (MAY 29) 3.7 (MAY 28) Cl 104 (MAY 31) 102 (MAY 30) 105 (MAY 29) 108 (MAY 28) CO2 29 (MAY 31) 31 (MAY 30) 29 (MAY 29) 27 (MAY 28) BUN 9 (MAY 31) 8 (MAY 30) 7 (MAY 29) 12 (MAY 28) Cr 0.90 (MAY 31) 1.10 (MAY 30) 0.70 (MAY 29) 0.80 (MAY 28) Glu R H 168 (MAY 31) H 262 (MAY 30) H 150 (MAY 29) H 200 (MAY 28) Ca 9.1 (MAY 31) 9.3 (MAY 30) 9.0 (MAY 29) 9.6 [...] tissue level. Empiric mixed coverage ongoing with daptomycin/Zosyn. Further adjustments to depend on clinical course/study results and response to therapy. Any further timing/option/threshold for further I&D at discretion of urology 2. Acute Scrotal cellulitis 3. Status post [...]
--- OUTSIDE RECORDS SUMMARY | 2024-10-25 20:20 | XMS_ITS | Encounter Summary ---
Author Organization [employer] Address [address] [place] [id number] Care Team Providers Care Mortar Maker Name Role Phone Unavailable Primary Care Provider Unavailabl e Encounter Details Date Type Department Care Team (Late st Contact Info) Description 06/01/2019 Transcribed Document [facility] [place] [address] [place] [address] ProviderMelanie MD [address] [place] [address] Social History Tobacco Use Types Packs/Day Years Used Date Smoking Tobacco: Never Assessed Sex and Gender Information Value Date Recorded Sex Assigned at Not on file Legal Sex Male 4:07 PM CDT Gender Identity Not on file Sexual Orientation Not on file documented as of this encounter Miscellaneous Notes * Cerner Conversion Note - Historical ProviderMD - 06/01/2019 4:50 PM DELIVERY DRIVER ASSISTANT Stroke/Warfarin Instructions Entered On: 06/01/2019 16:50 EST Performed On: 06/01/2019 16:50 EST by SERVANDO BARILLAS RN Stroke/Warfarin Instructions Stroke/TIA Discharge Ins : N/A Warfarin Discharge Ins : N/A SERVANDO BARILLAS RN - 06/01/2019 16:50 EST documented in this encounter Plan of Treatment Not on file documented as of this encounter Visit Diagnoses Not on filedocumented in this encounter
--- OUTSIDE RECORDS SUMMARY | 2024-10-25 20:20 | XMS_ITS | Encounter Summary ---
Author Organization [employer] Address [address] [place] [address] Care Team Providers Care Psychological Assistant Name Role Phone Unavailable Primary Care Provider Unavailabl e Encounter Details Date Type Department Care Team (Late st Contact Info) Description 05/31/2019 Transcribed Document [facility] [place] [address] [place] [address] ProviderMelanie MD [address] [place], [place] [address] Social History Tobacco Use Types Packs/Day Years Used Date Smoking Tobacco: Never Assessed Sex and Gender Information Value Date Recorded Sex Assigned at Not on file Legal Sex Male 4:07 PM CDT Gender Identity Not on file Sexual Orientation Not on file documented as of this encounter Miscellaneous Notes * Cerner Conversion Note - Historical ProviderMD - 05/31/2019 2:00 AM TRANSISTOR TESTER Tractor Trailer Truck Driver Details Entered On: 05/31/2019 8:04 EST Performed On: 05/31/2019 2:00 EST by Kristofer Lau, RN Order Details Transport Mode Order Detail : Ambulatory Isolation Precautions Order Detail : Standard Precautions Order Detail : N/A IV Order Detail : 1 Oxygen Order Detail : 1 Nurse Collect Order Detail : 0 Lift/Transfer : Independent Central Line Order Detail : No Room Service : Appropriate Arterial Line : No Kristofer Lau, RN - 05/31/2019 8:04 EST Electronically signed by Angel [facility] Conversion Plate Painter Apprentice Cerner at 09/05/2022 2:06 PM CDT documented in this encounter Plan of Treatment Not on file documented as of this encounter Visit Diagnoses Not on filedocumented in this encounter
--- OUTSIDE RECORDS SUMMARY | 2024-10-25 20:20 | XMS_ITS | Encounter Summary ---
Author Organization [employer] Address [address] [place] [address] Care Team Providers Care Group Burner Machine Name Role Phone Unavailable Primary Care Provider Unavailabl e Encounter Details Date Type Department Care Team (Late st Contact Info) Description 06/28/2019 Transcribed Document [facility] [place] [address] [place] [address] ProviderMelanie MD [facility] [place], [place] [id number] Social History Tobacco Use Types Packs/Day Years Used Date Smoking Tobacco: Never Assessed Sex and Gender Information Value Date Recorded Sex Assigned at Not on file Legal Sex Male 4:07 PM CDT Gender Identity Not on file Sexual Orientation Not on file documented as of this encounter Miscellaneous Notes * Cerner Conversion Note - Melanie ProviderMD - 06/28/2019 10:50 PM PERSONAL LINES UNDERWRITER ED Assessment Entered On: 06/28/2019 23:13 EST Performed On: 06/28/2019 23:09 EST by Layla Vick, MANDREL PULLER Quick Look Assessment Level of Consciousness : Alert, Awake Affect/Behavior : Appropriate, Cooperative Orientation : Oriented x 4 Skin Temperature : Warm Skin Description : Normal for ethnicity Layla Vick, RN - 06/28/2019 23:09 EST ED General-Functional Assess Information Obtained From : Patient Preferred Communication Mode : Verbal Communication Barrier : None Primary Language : Czech Any Spiritual/Cultural Needs or Requests : No Currently in Unsafe Situation : No Layla Vick RN - 06/28/2019 23:09 EST Social Habits Smoking Status : 5-9 cigarettes (between 1/4 to 1/2 pack)/day in last 30 days Smokeless Tobacco Status : Smokeless tobacco user within last 30 days Desires Tobacco Cessation Medication : No Reason for No Tobacco Cessation Medication : ED/procedural patient only Desires Tobacco Cessation Calc : 2 Layla Vick RN - 06/28/2019 23:09 EST Social History (As Of: 06/28/2019 23:13:20 EST) EENT Assessment EENT Assessment WDL : Layla Rodriguez, ANAT - 06/28/2019 23:09 EST Cardiovascular ASMT, ED Cardiovascular Assessment WDL : [place] Layla Vick, RN - 06/28/2019 23:09 EST Respiratory Respiratory Assessment WDL : [place] Layla Vick, RN - 06/28/2019 23:09 EST Gastrointestinal ED Gastrointestinal Assessment WDL : [place] Layla Vick, RN - 06/28/2019 23:09 EST Genitourinary Assessment, ED Genitourinary Assessment WDL : [facility] with exceptions (Comment: Pt c/o testicular pain, ongoing x Novemeber when pt had sx for hydrocele testicle, has appt with tomorrow but states the pain is so bad he could not wait. Ptstates testicle size has been in creasing and pain is now radiating to legs, achy [Layla Vick, ANAT - 06/28/2019 23:09 EST] ) Layla Vick RN - 06/28/2019 23:09 EST Musculoskeletal Musculoskeletal Assessment WDL : Layla Rodrigeuz, ANAT - 06/28/2019 23:09 EST Integumentary Assessment Integumentary Assessment WDL : Layla Rodriguez RN - 06/28/2019 23:09 EST Neurologic ASMT, ED Neurologic Assessment WDL : Layla Rodriguez RN - 06/28/2019 23:09 EST Pain Assessment Pain Assessment : Initial assessment Pain Scale Used : 0-10 Scale Location : Other: testicular Onset : Acute Quality : Aching Pain Radiation : Yes Pain Radiation Location : Leg, left, Leg, right Layla Vick, ANAT - 06/28/2019 23:09 EST Pain Scale Intensity : 10 Layla Vick RN - 06/28/2019 23:09 EST Image 4 - Images currently included in the form version of this document have not been included in the text rendition version of the form. documented in this encounter Plan of Treatment Not on file documented as of this encounter Visit Diagnoses Not on filedocumented in this encounter
--- OUTSIDE RECORDS SUMMARY | 2024-10-25 20:20 | XMS_ITS | Encounter Summary ---
Author Organization [employer] Address [address] [place] [address] Care Team Providers Care Acetylene Operator Name Role Phone Unavailable Primary Care Provider Unavailabl e Encounter Details Date Type Department Care Team (Late st Contact Info) Description 05/29/2019 Transcribed Document [facility] [place] [address] [place] [address] ProviderMelanie MD [facility] [place] [address] Social History Tobacco Use Types Packs/Day Years Used Date Smoking Tobacco: Never Assessed Sex and Gender Information Value Date Recorded Sex Assigned at Not on file Legal Sex Male 4:07 PM CDT Gender Identity Not on file Sexual Orientation Not on file documented as of this encounter Miscellaneous Notes * Cerner Conversion Note - Historical ProviderMD - 05/29/2019 12:07 AM FURNACE FEEDER Provider Notification Entered On: 05/29/2019 2:08 EST Performed On: 05/29/2019 0:07 EST by Jenna Vargas Lpn Provider Notification Provider Notified of Concerns/Results : Other: ANNA with home CPAP Provider Notified Name : FRANCOIS WISE DO Provider Notified Time : 05/29/2019 0:00 EST Jenna Vargas Lpn - 05/29/2019 2:08 EST Electronically signed by Angel [facility] Conversion Base Loader Cerner at 09/05/2022 2:16 PM CDT documented in this encounter Plan of Treatment Not on file documented as of this encounter Visit Diagnoses Not on filedocumented in this encounter
--- OUTSIDE RECORDS SUMMARY | 2024-10-25 20:20 | XMS_ITS | Encounter Summary ---
Author Organization [employer] [facility] [place] [place] Address [address] [place] [address] Care Team Providers Care Hand Pattern Marker Name Role Phone Unavailable Primary Care Provider Unavailabl e Encounter Details Date Type Department Care Team (Late st Contact Info) Description 05/29/2019 Transcribed Document [facility] [place] [address] [place] [address] ProviderMelanie MD [address] [place] [address] Social History Tobacco Use Types Packs/Day Years Used Date Smoking Tobacco: Never Assessed Sex and Gender Information Value Date Recorded Sex Assigned at Not on file Legal Sex Male 4:07 PM CDT Gender Identity Not on file Sexual Orientation Not on file documented as of this encounter Miscellaneous Notes * Cerner Conversion Note - Historical ProviderMD - 05/29/2019 12:00 PM TELECOMMUNICATIONS CABLE JOINTER UM Authorization Entered On: 05/29/2019 12:00 EST Performed On: 05/29/2019 12:00 EST by ZULY PIERRE Rn-Utilization Review Primary Insurance Authorization Authorization and Policy Numbers : Insurance 1 Health Plan: MEDICARE Policy Number: [id number] Authorization Number: Insurance Primary Name : MEDICARE Policy Number: [id number] Historical Authorization Comments-Primary : No Authorization Comments Found ZULY PIERRE Rn-Utilization Review - 05/29/2019 12:00 EST documented in this encounter Plan of Treatment Not on file documented as of this encounter Visit Diagnoses Not on filedocumented in this encounter
--- OUTSIDE RECORDS SUMMARY | 2024-10-25 20:20 | XMS_ITS | Encounter Summary ---
Author Organization [employer] Address [address] [place] [address] Care Team Providers Care Road Gang Supervisor Name Role Phone Unavailable Primary Care Provider Unavailabl e Encounter Details Date Type Department Care Team (Late st Contact Info) Description 05/29/2019 Transcribed Document [facility] [place] [address] [place] [address] ProviderMelanie MD [facility] [place] [address] Social History Tobacco Use Types Packs/Day Years Used Date Smoking Tobacco: Never Assessed Sex and Gender Information Value Date Recorded Sex Assigned at Not on file Legal Sex Male 4:07 PM CDT Gender Identity Not on file Sexual Orientation Not on file documented as of this encounter Miscellaneous Notes * Cerner Conversion Note - Melanie ProviderMD - 05/29/2019 4:43 AM FLANGE TURNER Education-Diabetes Topics Entered On: 05/29/2019 6:31 EST Performed On: 05/29/2019 4:43 EST by Jenna Vargas Lpn Teaching/Learning Assessment Barriers To Learning : None evident Individuals Taught : Patient, Spouse Readiness to Learn : Cooperative Highest Level of Education : Some college Baseline Knowledge of Topic : Comprehensive Readiness to Learn : Explanation Jenan Vargas Lpn - 05/29/2019 6:31 EST Education, Diabetes Diabetes Education Grid Symptom Identification & Action Plan *Q : Verbalizes understanding Acute Complications : Verbalizes understanding Blood Glucose Monitoring : Verbalizes understanding Chronic Complications : Verbalizes understanding Community Resources : Verbalizes understanding Compliance Strategies : Verbalizes understanding Coping/Care Regimen : Verbalizes understanding Cost Issues : Verbalizes understanding Disease Process : Verbalizes understanding DKA Signs and Symptoms : Verbalizes understanding Follow-up Care : Verbalizes understanding Foot Care : Verbalizes understanding Gestational Management : Verbalizes understanding Infection Control : Verbalizes understanding Insulin Administration : Verbalizes understanding Insulin Types/Onset/Duration : Verbalizes understanding Medical Alert Band : Verbalizes understanding Medication Storage : Verbalizes understanding Medication Dosage/Route : Verbalizes understanding Medication Generic/Brand : Verbalizes understanding Medication Precautions : Verbalizes understanding Medication Special Administration : Verbalizes understanding Medication, Preadministration : Verbalizes understanding Monitoring Results : Verbalizes understanding Nutritional Management/Exercise : Verbalizes understanding Oral Agents : Verbalizes understanding Physical Activity : Verbalizes understanding Post-Contrast Instructions : Verbalizes understanding Preconception Care : Verbalizes understanding Management : Verbalizes understanding Psychosocial Adjustment : Verbalizes understanding Sexual Dysfunction : Verbalizes understanding Treatment Plan/Options : Verbalizes understanding Treatment/Management Goal : Verbalizes understanding Urine Ketone Monitoring : Verbalizes understanding Weight Loss : Verbalizes understanding Diabetes, Other : Verbalizes understanding Jenna Vargas Lpn - 05/29/2019 6:31 EST Education, IP Diabetes Diabetes Inpatient Education Grid New Diagnosis : Verbalizes understanding Diabetes : Verbalizes understanding Pre-Diabetes : Verbalizes understanding Gestational Diabetes : Verbalizes understanding Diabetes, Other : Verbalizes understanding Jenna Vargas Lpn - 05/29/2019 6:31 EST inpatient diabetes education grid A1C : Verbalizes understanding Exercise : Verbalizes understanding Home Blood Glucose Monitoring : Verbalizes understanding Hyperglycemia S&S Tx : Verbalizes understanding Hypoglycemia S&S Tx : Verbalizes understanding Insulin Administration : Verbalizes understanding Insulin Pump : Verbalizes understanding Meal Planning : Verbalizes understanding Medical Identification : Verbalizes understanding Medication : Verbalizes understanding Monitoring Diabetes : Verbalizes understanding Mixing insulin : Verbalizes understanding Oral Agents : Verbalizes understanding Overview of Diabetes : Verbalizes understanding Sick Days : Verbalizes understanding Smoking Cessation : Verbalizes understanding Urine Ketone Monitoring : Verbalizes understanding Diabetes Education Topics, Other : Verbalizes understanding Jenna Vargas Lpn - 05/29/2019 6:31 EST Education, Foot Care Asthma Education Grid Care : Verbalizes understanding Circulation : Verbalizes understanding Disease Process : Verbalizes understanding Footwear : Verbalizes understanding Infection Control : Verbalizes understanding Inspection : Verbalizes understanding Plan of Care : Verbalizes understanding Positioning : Verbalizes understanding Reporting : Verbalizes understanding Symptom Identification & Action Plan *Q : Verbalizes understanding Temperature : Verbalizes understanding Treatment : Verbalizes understanding Wound Care : Verbalizes understanding Ed-Foot Care, Other : Verbalizes understanding Jenna Vargas Lpn - 05/29/2019 6:31 EST documented in this encounter Plan of Treatment Not on file documented as of this encounter Visit Diagnoses Not on filedocumented in this encounter
--- OUTSIDE RECORDS SUMMARY | 2024-10-25 20:20 | XMS_ITS | Encounter Summary ---
Author Organization [employer] Address [address] [place] [address] Care Team Providers Care Crm Specialist Name Role Phone Unavailable Primary Care Provider Unavailabl e Encounter Details Date Type Department Care Team (Late st Contact Info) Description 05/30/2019 Transcribed Document [facility] [place] [address] [place] [address] ProviderMelanie MD [address] [place] [id number] Social History Tobacco Use Types Packs/Day Years Used Date Smoking Tobacco: Never Assessed Sex and Gender Information Value Date Recorded Sex Assigned at Not on file Legal Sex Male 4:07 PM CDT Gender Identity Not on file Sexual Orientation Not on file documented as of this encounter Miscellaneous Notes * Cerner Conversion Note - Historical ProviderMD - 05/30/2019 12:17 PM COMMISSIONER OF CONCILIATION WO Inpatient Documentation Entered On: 05/30/2019 12:18 EST Performed On: 05/30/2019 12:17 EST by Jenise Ortiz Rn-Enterostomal WO Admission Date : Admit Date 05/28/2019 20:[address] : Diagnosis (7) Abscess - complicated Inflammatory disorders of scrotum Pain, unspecified Cellulitis, unspecified Cellulitis, unspecified Abscess of epididymis or testis Abscess of epididymis or testis Reason for WOCN Visit : Initial consult Admitting Diagnosis ST : Reason for Admission scrotal abscess WOCN Assessment Summary : Consult received for scrotum, however it is noted since consult placed Dr. Arguello has taken the patient to OR for exploration and debridement. Today Dr. Arguello states - urology to perform dressing changes today for frequent wound evaluations with possible wound vac tomorrow. Will follow as indicated by urology. Jenise Ortiz Rn-Enterostomal - 05/30/2019 12:17 EST Electronically signed by [facility] Sjh Conversion Service Porter Cerner at 09/05/2022 2:24 PM CDT documented in this encounter Plan of Treatment Not on file documented as of this encounter Visit Diagnoses Not on filedocumented in this encounter
--- OUTSIDE RECORDS SUMMARY | 2024-10-25 20:20 | XMS_ITS | Encounter Summary ---
Author Organization [employer] Address [address] [place] [address] Care Team Providers Care Ripsaw Grader Name Role Phone Unavailable Primary Care Provider Unavailabl e Encounter Details Date Type Department Care Team (Late st Contact Info) Description 05/30/2019 Transcribed Document [facility] [place] [address] [place] [address] ProviderMelanie MD [facility] [place] [address] Social History Tobacco Use Types Packs/Day Years Used Date Smoking Tobacco: Never Assessed Sex and Gender Information Value Date Recorded Sex Assigned at Not on file Legal Sex Male 4:07 PM CDT Gender Identity Not on file Sexual Orientation Not on file documented as of this encounter Miscellaneous Notes * Cerner Conversion Note - Historical ProviderMD - 05/30/2019 4:19 PM PRESSURE VESSEL INSPECTOR Patient: TERRI VARGAS Age: 59 Years Sex: Male : 1960 Subjective Still with severe scrotal pain. No other issues. Family present and questions addressed. Vital Signs T: 36.6 ??C TMIN: 36.4 ??C TMAX: 36.7 ??C HR: 80(Monitored) RR: 19 BP: 158/101 SpO2: 95% Oxygen Settings (Last) Oxygen Therapy Mode: Room air (05/30/19 06:11:00) Oxygen Flow Rate: 2 Liter/Min (05/29/19 13:36:00) Intake & Output Totals Last 24 Hours (7a-7a) Input Total: 2847.09 mL Output Total: 1400 mL Balance: 1447.09 mL Physical Exam General: no acute distress Neurologic: Awake, alert, and oriented X3, Moves all extremities. Eye: Pupils reactive and equal bilaterally. OP clear. Neck: No carotid bruits, no JVD, no lymphadenopathy Lungs: Clear to auscultation bilaterally. No wheezes. Heart: Regular rate and rhythm. No murmurs. Abdomen: Soft, non-tender, non-distended, normal bowel sounds, no masses. scrotal debridement site bandaged. Extremities: No edema. Full range of motion where tested. Skin: No rashes or lesions Assessment/Plan 1. Scrotal cellulitis and abscess: Post surgical I&D. IV abx per ID reccs Pain control is still not adequate - will start dilaudid EAR FLAP BINDER. 2. Coronary artery disease status post CABG 11/22/2018 No recent cardiac symptoms or concerns 3. Type 2 diabetes mellitus - Still elevated. Will adjust insulin for better control. 4. Ongoing [...] Oral, At Bedtime Dilaudid 6 mg/30 ml EAR FLAP BINDER 6 mg, 6 mg= 30 mL, IntraVENous DULoxetine, 60 mg= 2 Cap, Oral, Daily [...] mg= 2 Cap, Oral, At Bedtime, PRN Tylenol, 650 mg= 2 Tab, Oral, Q4H, PRN Zofran, 4 mg= 2 mL, IV Push, Q4H, PRN Zosyn + Sodium Chloride 0.9% intravenous solution 100 mL Lab Results Test Name Test Result Date/Time Sodium Level 137 mmol/L 05/30/2019 06:33 EST Potassium Level 3.2 mmol/L (Low) 05/30/2019 06:33 EST Chloride Level 102 mmol/L 05/30/2019 06:33 EST Carbon Dioxide Level 31 mmol/L 05/30/2019 06:33 EST Anion Gap 7 (Low) 05/30/2019 06:33 EST Glucose Level 262 mg/dL (High) 05/30/2019 06:33 EST Blood Urea Nitrogen 8 mg/dL 05/30/2019 06:33 EST Creatinine Level 1.10 mg/dL 05/30/2019 06:33 EST eGFR >60 mL/min/1.73m2 05/30/2019 06:33 EST eGFR NonAfrican >60 mL/min/1.73m2 05/30/2019 06:33 EST Bun/Creatinine 7.3 (Low) 05/30/2019 06:33 EST Calcium Level 9.3 mg/dL 05/30/2019 06:33 EST Magnesium Level 1.9 mg/dL 05/30/2019 06:33 EST Phosphorus 3.4 mg/dL 05/30/2019 06:33 EST Device Comment 1 Protocols Followed 05/30/2019 10:39 EST Device Comment 1 Protocols Followed 05/30/2019 05:58 EST Device Comment 1 Protocols Followed 05/29/2019 20:14 EST Glucose POC2 158 mg/dL (High) 05/30/2019 10:39 EST Glucose POC2 301 mg/dL (High) 05/30/2019 05:58 EST Glucose POC2 313 mg/dL (High) 05/29/2019 20:14 EST WBC 10.5 K/uL (High) 05/30/2019 06:33 EST RBC 5.17 Million/uL 05/30/2019 06:33 EST Hgb 13.7 g/dL 05/30/2019 06:33 EST Hct 44.7 % 05/30/2019 06:33 EST MCV 86.5 fL 05/30/2019 06:33 EST MCH 26.5 pg 05/30/2019 06:33 EST MCHC 30.6 Gram/dL (Low) 05/30/2019 06:33 EST Platelet Count 234 K/uL 05/30/2019 06:33 EST MPV 12.1 fL 05/30/2019 06:33 EST RDW 16.8 % (High) 05/30/2019 06:33 EST Neut % 66.6 % 05/30/2019 06:33 EST Neut # 7.03 K/uL (High) 05/30/2019 06:33 EST Lymph % 20.2 % 05/30/2019 06:33 EST Lymph # 2.13 x10(3)/uL 05/30/2019 06:33 EST Platte % 8.2 % 05/30/2019 06:33 EST Platte # 0.86 K/uL 05/30/2019 06:33 EST Eos % 3.8 % 05/30/2019 06:33 EST Eos # 0.40 x10(3)/uL 05/30/2019 06:33 EST Baso % 0.6 % 05/30/2019 06:33 EST Baso # 0.06 x10(3)/uL 05/30/2019 06:33 EST Slide Review No 05/30/2019 06:33 EST IG# 0.06 x10(3)/uL (High) 05/30/2019 06:33 EST IG% 0.60 % 05/30/2019 06:33 EST documented in this encounter Plan of Treatment Not on file documented as of this encounter Visit Diagnoses Not on filedocumented in this encounter
--- OUTSIDE RECORDS SUMMARY | 2024-10-25 20:20 | XMS_ITS | Encounter Summary ---
Author Organization [employer] Address [address] [place] [address] Care Team Providers Care Paint Tester Name Role Phone Unavailable Primary Care Provider Unavailabl e Encounter Details Date Type Department Care Team (Late st Contact Info) Description 06/28/2019 Transcribed Document [facility] Family Medicine [facility] [place] [address] ProviderMelanie MD [address] [place] [id number] Social History Tobacco Use Types Packs/Day Years Used Date Smoking Tobacco: Never Assessed Sex and Gender Information Value Date Recorded Sex Assigned at Not on file Legal Sex Male 4:07 PM CDT Gender Identity Not on file Sexual Orientation Not on file documented as of this encounter Miscellaneous Notes * Cerner Conversion Note - Melanie ProviderMD - 06/28/2019 10:50 PM STEAM BOX HAND ED Triage Entered On: 06/28/2019 23:04 EST Performed On: 06/28/2019 23:00 EST by Montse Mooney RN-Flex Team ED Triage Across the Room Chief Complaint : pt c/o testicular pain, entire groin area, only has one testicle, ongoing since 04/04/2020 surgery for hydrocele Triage Date/Time : 06/28/2019 23:00 EST Montse Mooney RN-Flex Team - 06/28/2019 23:00 EST DCP GENERIC CODE Tracking Acuity : 3 - Urgent Tracking Group : [facility] ED Montse Mooney RN-Flex Team - 06/28/2019 23:00 EST Mode of Arrival : Ambulatory Transported to ED by : Private vehicle To Room Via : Ambulate Accompanied By : Spouse ED Vital Signs : Document Height & Weight : Document ED Allergies : Document ED Reason for Visit : Document Tetanus Immunization : Less than 5 years Montse Mooney RN-Flex Team - 06/28/2019 23:00 EST Infectious Disease History Physical contact outside [place] in the last 30 days : No Infectious Disease History : Chicken pox/Shingles Tuberculosis Symptoms : None Montse Mooney RN-Flex Team - 06/28/2019 23:00 EST Vital Signs ED Temperature Source : Oral Temperature Mode : Fahrenheit Temperature, Fahrenheit : 97.9 Deg F ED Pain : Yes Clinical Temperature, C : 36.6 Deg C Oxygen Therapy Mode : Room air Peripheral Pulse Rate : 78 bpm Respiratory Rate : 16 Breaths/Min Systolic Blood Pressure : 143 mmHg (HI) Diastolic Blood Pressure : 96 mmHg (HI) Oxygen Saturation : 97 % Montse Mooney RN-Flex Team - 06/28/2019 23:00 EST Allergy (As Of: 06/28/2019 23:04:04 EST) Allergies (Active) No Known Allergies Estimated Onset Date: Unspecified ; Created By: Contributor_system HIST_We TributeMIHIR; Reaction Status: Active ; Category: Drug ; Substance: No Known Allergies ; Type: Allergy ; Updated By: Contributor_system HIST_CERIMHIR; Reviewed Date: 06/28/2019 23:01 EST Diagnosis Control ED (As Of: 06/28/2019 23:04:04 EST) Problems(Active) CAD (coronary artery disease) (SNOMED CT :31000992 ) Name of Problem: CAD (coronary artery disease) ; Recorder: Montse Mooney RN-Flex Team; Confirmation: Confirmed ; Classification: Medical ; Code: [id number] ; Contributor System: Organic Shop ; Last Updated: 06/28/2019 23:02 EST ; Life Cycle Date: 06/28/2019 ; Life Cycle Status: Active ; Vocabulary: SNOMED CT Diabetes mellitus (SNOMED CT :776903857 ) Name of Problem: Diabetes mellitus ; Recorder: Montse Mooney RN-Flex Team; Confirmation: Confirmed ; Classification: Medical ; Code: 357328394 ; Contributor System: PowerChart ; Last Updated: 06/28/2019 23:02 EST ; Life Cycle Date: 06/28/2019 ; Life Cycle Status: Active ; Vocabulary: SNOMED CT History of obstructive sleep apnea (IMO :85845761 ) Name of Problem: History of obstructive sleep apnea ; Recorder: SYSTEM, SYSTEM; Confirmation: Confirmed ; Classification: Medical ; Code: 90398858 ; Last Updated: 05/29/2019 0:07 EST ; Life Cycle Date: 05/29/2019 ; Life Cycle Status: Active ; Vocabulary: IMO HLD (hyperlipidemia) (SNOMED CT :89263284 ) Name of Problem: HLD (hyperlipidemia) ; Recorder: Montse Mooney RN-Flex Team; Confirmation: Confirmed ; Classification: Medical ; Code: 28210754 ; Contributor System: Organic Shop ; Last Updated: 06/28/2019 23:02 EST ; Life Cycle Date: 06/28/2019 ; Life Cycle Status: Active ; Vocabulary: SNOMED CT HTN (hypertension) (SNOMED CT :6730945366 ) Name of Problem: HTN (hypertension) ; Recorder: Montse Mooney RN-Flex Team; Confirmation: Confirmed ; Classification: Medical ; Code: 9752690574 ; Contributor System: PowerChart ; Last Updated: 06/28/2019 23:02 EST ; Life Cycle Date: 06/28/2019 ; Life Cycle Status: Active ; Vocabulary: SNOMED CT Diagnoses(Active) Testicular pain Date: 06/28/2019 ; Diagnosis Type: Reason For Visit ; Confirmation: Complaint of ; Clinical Dx: Testicular pain ; Classification: Medical ; Clinical Service: Non-Specified ; Code: PNED ; Probability: 0 ; Diagnosis Code: [id number] ED Height and Weight Height Source : Stated Height Entry Format : Phillips Height, Feet : 5 ft(Converted to: 152 cm, 60 Inch) Height, Inches : 11 Inch(Converted to: 0 ft 11 Inch, 27.94 cm) Clinical Height : 180.34 cm Weight Source, ED : Standing scale Weight Entry Format : Phillips Weight, Pounds : 230.6 lb Clinical Dosing Weight : 104.82 kg Body Surface Area (BSA) : 2.24 m2 Body Mass Index : 32.2 kg/m2 (HI) Eleva Body Weight (IBW) : 74.31 kg Montse Mooney RN-Flex Team - 06/28/2019 23:00 EST Pain Assessment Pain Assessment : Initial assessment Pain Scale Used : 0-10 Scale Montse Mooney RN-Flex Team - 06/28/2019 23:00 EST Pain Scale Intensity : 10 Montse Mooney RN-Flex Team - 06/28/2019 23:00 EST Image 4 - Images currently included in the form version of this document have not been included in the text rendition version of the form. documented in this encounter Plan of Treatment Not on file documented as of this encounter Visit Diagnoses Not on filedocumented in this encounter
--- OUTSIDE RECORDS SUMMARY | 2024-10-25 20:20 | XMS_ITS | Encounter Summary ---
Author Organization [employer] Address [address] [place] [address] Care Team Providers Care Hand Marker Name Role Phone Unavailable Primary Care Provider Unavailabl e Encounter Details Date Type Department Care Team (Late st Contact Info) Description 05/28/2019 Transcribed Document [facility] [place] Family Medicine [address] [place] [address] ProviderMelanie MD [facility] [place], [place] [id number] Social History Tobacco Use Types Packs/Day Years Used Date Smoking Tobacco: Never Assessed Sex and Gender Information Value Date Recorded Sex Assigned at Not on file Legal Sex Male 4:07 PM CDT Gender Identity Not on file Sexual Orientation Not on file documented as of this encounter Miscellaneous Notes * Cerner Conversion Note - Melanie ProviderMD - 05/28/2019 9:02 PM IS SUPPORT ANALYST Patient: TERRI MOREL Age: 59 years Sex: Male : 1960 Associated Diagnoses: None Author: Adri Fisher, PHARMACIST-RESIDENT Patient is a 59 yoM who presented to the ED as instructed by urologist for a scrotal abscess as patient is having worsening scrotal pain. Patient had a hydrocele repair approximately 2 months ago, developed a hematoma and subsequently an abscess. Patient has been on antibiotics recently, per external medication history appears to be augmentin from 05/06. Pharmacy consulted to dose vancomycin for abscess. EMN=842 kg BMI=38.7 Consulting MD: Harshad Martino ID: [id number] Goal Trough: 12-18 Current Abx: Zosyn (start 05/28) Vancomycin, PTD MAY 28 19:06 140 108 12 / H 200 3.7 27 0.80 \ MAY 28 19:06 \ 14.8 / 8.3 226 / 46.5 \ Labs (Last four charted values) WBC 8.3 [...] 8.2 (MAY 28) ALB 3.8 (MAY 28) Vitals Signs (last 24 hrs) Last Charted Minimum Maximum Temp 98.6 (MAY 28 18:16) 98.6 (MAY 28 18:16) 98.6 (MAY 28 18:16) Periph HR 75 (MAY 28 18:16) 75 (MAY 28 18:16) 75 (MAY 28 18:16) Resp Rate 18 (MAY 28 18:16) 18 (MAY 28 18:16) 18 (MAY 28 18:16) SBP H 148 (MAY 28 18:16) H 148 (MAY 28 18:16) H 148 (MAY 28 18:16) DBP 89 (MAY 28 18:16) 89 (MAY 28 18:16) 89 (MAY 28 18:16) SpO2 100 (MAY 28 18:16) 100 (MAY 28 18:16) 100 (MAY 28 18:16) I/O: new admit Creatinine Clearance (Current Encounter/Past 24 Hours) Creatinine Level 0.80 mg/dL 05/28/2019 19:36 Bun/Creatinine 15.0 05/28/2019 19:36 Estimated Creatinine Clearance 84.28 mL/Min 05/28/2019 18:28 Micro: 05/28 blood cx - pending 05/28 urine cx - pending Vanc levels: A/P: 1. Initiate vancomycin 1500 mg IV q12h based on patient???s age, weight, indication, and renal function 2. Order trough for 05/30 @ 0900. - hold for trough >20. 3. All medications are dosed appropriately at this time. Rx to continue to follow and adjust based on levels, clinical status, renal function, and culture results. Thank you for this consultation. Adri Fisher, PharmD PGY-1 Air Traffic Control Operator [phone] documented in this encounter Plan of Treatment Not on file documented as of this encounter Visit Diagnoses Not on filedocumented in this encounter
--- OUTSIDE RECORDS SUMMARY | 2024-10-25 20:20 | XMS_ITS | Encounter Summary ---
Author Organization [employer] Address [address] [place] [address] Care Team Providers Care Apprentice Lineman Third Step Name Role Phone Unavailable Primary Care Provider Unavailabl e Encounter Details Date Type Department Care Team (Late st Contact Info) Description 05/29/2019 Transcribed Document [facility] Medicine [address] [place] [address] ProviderMelanie MD [facility] [place] [address] Social History Tobacco Use Types Packs/Day Years Used Date Smoking Tobacco: Never Assessed Sex and Gender Information Value Date Recorded Sex Assigned at Not on file Legal Sex Male 4:07 PM CDT Gender Identity Not on file Sexual Orientation Not on file documented as of this encounter Miscellaneous Notes * Cerner Conversion Note - Historical ProviderMD - 05/29/2019 3:07 PM DATA MANAGEMENT SPECIALIST Education-Diabetes Topics Entered On: 05/29/2019 16:57 EST Performed On: 05/29/2019 15:07 EST by JANN JOSEPH, RN Teaching/Learning Assessment Barriers To Learning : None evident Highest Level of Education : Some college JANN JOSEPH RN - 05/29/2019 16:57 EST Education, Diabetes Diabetes Education Grid Symptom Identification & Action Plan *Q : Verbalizes understanding Acute Complications : Verbalizes understanding Blood Glucose Monitoring : Returns demonstration, Verbalizes understanding Disease Process : Verbalizes understanding Follow-up Care : Verbalizes understanding Medication Generic/Brand : Verbalizes understanding Oral Agents : Verbalizes understanding Physical Activity : Verbalizes understanding JANN JOSEPH RN - 05/29/2019 16:57 EST Electronically signed by Angel [facility] Conversion Plug Sorter Cerner at 09/05/2022 2:19 PM CDT documented in this encounter Plan of Treatment Not on file documented as of this encounter Visit Diagnoses Not on filedocumented in this encounter
--- OUTSIDE RECORDS SUMMARY | 2024-10-25 20:20 | XMS_ITS | Encounter Summary ---
Author Organization [employer] Address [address] [place] [address] Care Team Providers Care Executive Personal Assistant Name Role Phone Unavailable Primary Care Provider Unavailabl e Encounter Details Date Type Department Care Team (Late st Contact Info) Description 05/29/2019 Transcribed Document [facility] [place] [address] [place] [address] ProviderMelanie MD [address] [place] [address] Social History Tobacco Use Types Packs/Day Years Used Date Smoking Tobacco: Never Assessed Sex and Gender Information Value Date Recorded Sex Assigned at Not on file Legal Sex Male 4:07 PM CDT Gender Identity Not on file Sexual Orientation Not on file documented as of this encounter Miscellaneous Notes * Cerner Conversion Note - Melanie ProviderMD - 05/29/2019 1:38 PM RESIDENTIAL ELECTRICIAN DATE OF PROCEDURE: 05/29/2019 SURGEON: Claudy Pro MD PREOPERATIVE DIAGNOSES: 1. Left scrotal pain. 2. Left orchitis. 3. History of hydrocelectomy, complicated by hematoma evacuation. POSTOPERATIVE DIAGNOSES: 1. Left scrotal pain. 2. Left orchitis. 3. History of hydrocelectomy, complicated by hematoma evacuation. PROCEDURES PERFORMED: Left scrotal exploration and debridement. RESIDENT: Nicolasa Arguello MD ANESTHESIA: General. SPECIMEN: None. DRAINS: None. INDICATIONS: Mr. Vargas is a 59-year-old male, who underwent a left hydrocelectomy in March. This was complicated by hematoma, requiring evacuation. He then developed orchitis due to poor wound care. He was treated with 2 rounds of Augmentin. Over the past several days, his pain has worsened. Upon exam, the scrotal wound edges had epithelialized with fibrinous exudate over the inflammatory rind. After discussing risks and benefits, the patient agreed to proceed to the operating room for surgical exploration. FINDINGS: 1. A thick inflammatory rind of the scrotum and tunica vaginalis that encompassed the testicle and cord and was adhesed to the scrotal wall. After debriding the large amount of inflammatory and necrotic tissue, the left testicle was found to be viable. A thrombosed area on the proximal spermatic cord was resected and several tight bands were ligated from the cord. 2. At the end of the case, there was adequate hemostasis with soft and viable tissues throughout the left scrotum. DESCRIPTION OF PROCEDURE: After being correctly identified in the preoperative holding area, the patient was taken back to the operating room and placed on the table in supine position. Bilateral SCDs were placed and general anesthesia was induced. The patient was then prepped and draped in normal sterile fashion. A time-out was performed confirming correct patient, procedure, and administration of preoperative antibiotics. After finger dissecting the underlying testicle away from the anterior scrotal wall, the small mid raphe incision was elongated superiorly and inferiorly along the raphe. There was a small amount of remaining hematoma and a thick rind of inflammation around the testicle and scrotal wall. Careful dissection was made using a 16 blade scalpel as well as Metzenbaum scissors to remove all necrotic and firm tissues. A thick rind of inflammation was peeled off the testicle revealing a very soft, but viable appearing testicle. There was a thrombosed cyst on the distal portion of the cord near the testicle that had hematoma and this was removed sharply. The thick rind of the scrotal wall was then removed using a scalpel and scissors. Once all the necrotic and firm tissue was removed, hemostasis was achieved. We then pulse evacuated the area with an antibiotic solution and further cauterized small oozing vessels. Once the scrotal contents were re-evaluated, the testicle was wrapped in Adaptic and placed in its anatomical position within the left hemiscrotum. The scrotum was packed with Kerlix. . The patient was then extubated, and awakened. He was taken to PACU in stable condition. He tolerated the procedure well without any immediate complications. Dr. Pro was present and scrubbed in for the entire procedure. DISPOSITION: The patient will recover in the PACU, after which he will continue his inpatient stay for antibiotics and wound care. /[id number] DICTATED BY: Nicolasa Arguello MD for Claudy Pro MD MD LOUIS Martinez/AQ / LOUIS / ANGELAL /[id number] Electronically signed by [facility] Conversion Homoeopath Cerner at 09/05/2022 2:31 PM CDT documented in this encounter Plan of Treatment Not on file documented as of this encounter Visit Diagnoses Not on filedocumented in this encounter
--- OUTSIDE RECORDS SUMMARY | 2024-10-25 20:20 | XMS_ITS | Clinical Summary ---
Author Organization [facility] Address [address] [place] [address] Phone Care Team Providers Care Loom Starter Name Role Phone Renzo BEARD, Chuck Schaffer [ ] Conditions or Problems Problem Name Problem Code Onset Date Status Entry Date Provider Comment Standard Description Annotate Orchitis 503617615 (SNOMED CT) 06/03 Active 06/03 Renata Mello Orchitis Coronary artery disease, S/P CABG 87451370 (SNOMED CT) 06/03 Active 06/03 Renata Mello Coronary arteriosclerosis Skin tissue necrosis 42334981 (SNOMED CT) 06/03 Active 06/03 Renata Mello Skin necrosis DM Type II E11.9 (ICD-10-CM) 06/03 Active 06/03 Renata Mello Type 2 diabetes mellitus without complications Abscess/Cell ulitis, scrotal 34149905 (SNOMED CT) 06/03 Active 06/03 Renata Mello Abscess of scrotum Nicotine dependence, cigarettes 242701928 (SNOMED CT) 06/03 Active 06/03 Renata Mello Tobacco user Medications Medication Instructions Start Date Stop Date Generic Name [facility] Provider ZOFRAN 4 MG ORAL TABLET 1 tablet every 8 hours as needed ONDANSETRON HCL 36540370197 Huan Shah MS CONTIN 15 MG CR-TABS 1 tablet twice daily MORPHINE SULFATE 88525879475 Huan Shah JANUMET 50-1000 MG TABS 1 tablet twice daily SITAGLIPTIN-METFO RMIN HCL 63718373621 Huan Shah DESIPRAMINE HCL 25 MG TABS 1 tablet nightly DESIPRAMINE HCL 32034149014 [facility] COREG 25 MG TABS 1 tablet twice daily CARVEDILOL 68512732884 [facility] OMEPRAZOLE 40 MG CPDR 1 capsule daily OMEPRAZOLE 56391147488 [facility] ALTOPREV 40 MG CT06J-OFG 1 tablet daily LOVASTATIN 37333496957 [facility] LISINOPRIL-HYDROCH LOROTHIAZIDE 10-12.5 MG TABS 1 tablet twice daily LISINOPRIL-HYDROC HLOROTHIAZIDE 94143237307 [facility] FARXIGA 10 MG TABS 1 tablet daily DAPAGLIFLOZIN PROPANEDIOL 12651291884 [facility] CYCLOBENZAPRINE HCL 10 MG TABS 1 tablet 3 times daily as needed for spasms CYCLOBENZAPRINE HCL 56428777841 [facility] ADULT ASPIRIN REGIMEN 81 MG ORAL TABLET DELAYED RELEASE 1 tablet daily ASPIRIN 60136177853 [facility] PERCOCET 10-325 MG TABS 1 tablet every 4 hours as needed OXYCODONE-ACETAMI NOPHEN 56708752536 [facility] ADALAT CC 90 MG ORAL TABLET EXTENDED RELEASE 24 HOUR 1 tablet daily NIFEDIPINE 60990961304 [facility] CYMBALTA 60 MG CPEP 1 capsule daily DULOXETINE HCL 79279863515 [facility] ACIDOPHILUS 100 MG CAPS 1 capsule twice daily LACTOBACILLUS 16280265696 [facility] AVIDOXY 100 MG TABS 1 tablet twice daily DOXYCYCLINE MONOHYDRATE 77944227824 [facility] AMOXICILLIN-POT CLAVULANATE 875-125 MG TABS 1 tablet twice daily AMOXICILLIN-POT CLAVULANATE 84208181065 [facility] Medications Administered No information available. Allergies, Adverse Reactions, Alerts No information available. Results Date Name Value Unit Range Flag Description Clinical Lists Update: Prelo ad HGBA1C 7.40 % Hemoglobin A1c/Hemoglobin, total in Blood - % Office Visit: room 13 MEDS REVIEW Done Documenta tion of current medications (procedure) ORALTOBACUSE Unknown Tobacco smoking status SMOK STATUS Current every day smoker Tobacco smoking status Plan of Care No information available. Procedures No information available. Vital Signs Date Name Value Unit Description BMI (Body Mass Index) 33.22 kg/m2 Bod y Mass Index (Ratio) Body Temperature 97.6 [degF] temperat ure E&M BP Diastolic 80 mm[Hg] blood pressu re, diastolic BP Systolic 120 mm[Hg] blood pressur e, systolic Heart Rate 72 /min pulse rate Height 71 [in_us] height E&M Respiratory Rate 16 /min respirat ory rate E&M Weight Measured 238.2 [lb_av] weight E& M Weight Measured 238.2 [lb_av] weight E& M Immunizations Vaccine Administration Date Standard Description CVX Co de Dose Unspecified Formulation Unspecified Formulation 88 Unknown Advance Directives No information available.
--- OUTSIDE RECORDS SUMMARY | 2024-10-25 20:20 | XMS_ITS | Encounter Summary ---
Author Organization [employer] Address [address] [place] [address] Care Team Providers Care Compliance Director Name Role Phone Unavailable Primary Care Provider Unavailabl e Encounter Details Date Type Department Care Team (Late st Contact Info) Description 05/31/2019 Transcribed Document [facility] [place] Family Medicine [address] [place] [address] ProviderMelanie MD [facility] [place], [place] [address] Social History Tobacco Use Types Packs/Day Years Used Date Smoking Tobacco: Never Assessed Sex and Gender Information Value Date Recorded Sex Assigned at Not on file Legal Sex Male 4:07 PM CDT Gender Identity Not on file Sexual Orientation Not on file documented as of this encounter Miscellaneous Notes * Cerner Conversion Note - Historical ProviderMD - 05/31/2019 2:56 PM PATRON ATTENDANT On Going Discharge Planning Entered On: 05/31/2019 14:57 EST Performed On: 05/31/2019 14:56 EST by LYNDSEY GAY RN-Engineering Faculty MemberInstructional Support Technician Progress Note Discharge Arrangements : Patient Post-Acute Information Patient Name: TERRI VARGAS Gender: Male : [birth year] Age: 59 Years No Post-Acute Placement(s) Listed No Post-Acute Service(s) Listed No [place] Referral(s) Listed Barriers to Discharge Identified : Clinical Condition of Patient Barriers to Discharge Unresolved : Clinical Condition of Patient Did you Attend Multidisciplinary Rounds? : Yes LYNDESY GAY RN-Engineering Faculty Member - 05/31/2019 14:56 EST Narrative Progress Note Narrative Progress Note : Met with Pt on MDR rounds. Pain continues to be an issue, Dilaudid WIRED SWEATBAND CUTTER in use. Plans are to place a wound vac sometime today. CM will follow. LYNDSEY GAY, ANAT-Engineering Faculty Member - 05/31/2019 14:56 EST Electronically signed by Angel [facility] Conversion Correspondence Representative Cerner at 09/05/2022 2:06 PM CDT documented in this encounter Plan of Treatment Not on file documented as of this encounter Visit Diagnoses Not on filedocumented in this encounter
--- OUTSIDE RECORDS SUMMARY | 2024-10-25 20:20 | XMS_ITS | Encounter Summary ---
Author Organization [employer] Address [address] [place] [address] Care Team Providers Care Furnace Filler Name Role Phone Unavailable Primary Care Provider Unavailabl e Encounter Details Date Type Department Care Team (Late st Contact Info) Description 06/29/2019 Transcribed Document [facility] [place] [address] [place] [address] ProviderMelanie MD [address] [place] [id number] Social History Tobacco Use Types Packs/Day Years Used Date Smoking Tobacco: Never Assessed Sex and Gender Information Value Date Recorded Sex Assigned at Not on file Legal Sex Male 4:07 PM CDT Gender Identity Not on file Sexual Orientation Not on file documented as of this encounter Miscellaneous Notes * Cerner Conversion Note - Historical ProviderMD - 06/29/2019 12:06 AM PUMP PRESS OPERATOR ED Event Note Entered On: 06/29/2019 0:09 EST Performed On: 06/29/2019 0:06 EST by Layla Vick FLOOR TILING PROFESSIONAL Event Note ED Event Date/Time : 06/29/2019 0:07 EST ED Description of Event : Pt and pt spouse called nurse to state, If I am not going to receive any pain medication I am not going to sit through an ultrasound. I will leave. Last time I was here they gave me Dilaudid. Pt and spouse educated on reccommendation to stay, stating, What am I going to be charged if I leave then? If I get charged for a visit I will get a civil engineer land development I am not kidding. Pt educated on implications r/t AMA, pt proceeds to get dressed and exit ED. Layla Vick RN - 06/29/2019 0:06 EST Electronically signed by Angel [facility] Conversion Apparatus Lineman Cerner at 09/05/2022 2:03 PM CDT documented in this encounter Plan of Treatment Not on file documented as of this encounter Visit Diagnoses Not on filedocumented in this encounter
--- OUTSIDE RECORDS SUMMARY | 2024-10-25 20:20 | XMS_ITS | Encounter Summary ---
Author Organization [employer] Address [address] [place] [id number] Care Team Providers Care Excellence Coach Name Role Phone Unavailable Primary Care Provider Unavailabl e Encounter Details Date Type Department Care Team (Late st Contact Info) Description 06/28/[address] [facility] [place] Family Medicine [address] [place] [address] ProviderMelanie MD [address] [place] [id number] Social History Tobacco Use Types Packs/Day Years Used Date Smoking Tobacco: Never Assessed Sex and Gender Information Value Date Recorded Sex Assigned at Not on file Legal Sex Male 4:07 PM CDT Gender Identity Not on file Sexual Orientation Not on file documented as of this encounter Miscellaneous Notes * Cerner Conversion Note - Melanie ProviderMD - 06/28/2019 11:16 PM BOLT LOADER Patient: TERRI VARGAS Age: 59 years Sex: Male : 1960 Associated Diagnoses: Testicular pain Author: SARAI HOUSE MD Basic Information Time seen: Date & time 06/28/2019 23:17:00. History source: Patient. Arrival mode: Private vehicle. History limitation: None. Additional information: Chief Complaint from Nursing Triage Note : Chief Complaint 06/28/2019 23:00 EST Chief Complaint pt c/o testicular pain, entire groin area, only has one testicle, ongoing since 04/04/2020 surgery for hydrocele . History of Present Illness This is a 59-year-old male with a past medical history significant for hypertension, hyperlipidemia, diabetes mellitus, coronary artery disease who presents to the emergency department for evaluation of testicular pain worsening over the last 48 hours. He has history of chronic testicular pain, but it has been worse over the last 2 days, starting on the left side of the scrotum and now radiating to the right. He has a urologic history significant for right orchiectomy in 2004 and hydrocele removal on the left, complicated by wound infection, Alfonso's gangrene, multiple urologic debridements followed by wound VAC treatment and ultimately primary closure at the beginning of this month. He is currently on amoxicillin and is followed by infectious disease. He has been taking his medication regularly. He reports taking his last Percocet earlier this afternoon. He also reports being out of his Percocet. He is a chronic pain patient. NO exacerbating or alleviating factors - states Percocet doesn't work anymore. He has an appointment with his urologist in the morning and 11. He denies any urinary symptoms or hematuria. Review of Systems Additional review of systems information: 10 point review of systems reviewed and negative except as stated in history of present illness . Health Status Allergies: Allergic Reactions (Selected) No Known Allergies. Medications: (Selected) Prescriptions Prescribed lactobacillus acidophilus oral tablet: 2 Tab, Oral, BID, for 10 Day(s), 40 Tab, 0 Refill(s) Documented Medications Documented Aspir 81: 81 mg, Oral, Daily, 0 Refill(s) Cymbalta 60 mg oral delayed release capsule: 1 Cap, Oral, Daily, (do not crush or chew), 30 Cap, 0 Refill(s) Farxiga 10 mg oral tablet: 1 Tab, Oral, QAM, 0 Refill(s) Janumet 50 mg-1000 mg oral tablet: 1 Tab, Oral, BID, 60 Tab, 0 Refill(s) MS Contin 15 mg oral tablet, extended release: 1 Tab, Oral, Q12H, 0 Refill(s) NIFEdipine 90 mg oral tablet, extended release: 1 Tab, Oral, Daily, 0 Refill(s) PriLOSEC 40 mg oral delayed release capsule: 1 Cap, Oral, Daily, 0 Refill(s) Zofran 4 mg oral tablet: 1 Tab, Oral, Q8H, PRN: Nausea, 0 Refill(s) carvedilol 25 mg oral tablet: 1 Tab, Oral, BID, 180 Tab, 0 Refill(s) cyclobenzaprine 10 mg oral tablet: 1 Tab, Oral, TID, PRN: as needed for spasm, 30 Tab, 0 Refill(s) desipramine 25 mg oral tablet: 1 Tab, Oral, At Bedtime, 90 Tab, 0 Refill(s) hydroCHLOROthiazide-lisinopril 12.5 mg-10 mg oral tablet: 1 Tab, Oral, BID, 30 Tab, 0 Refill(s) lovastatin 40 mg oral tablet: 1 Tab, Oral, Daily, 0 Refill(s), per nurse's notes. Immunizations: Per nurse's notes. Past Medical/ Family/ Social History Medical history Reviewed as documented in chart. Surgical history: Reviewed as documented in chart. Family history: Reviewed as documented in chart. Social history: Reviewed as documented in chart. Problem list: Active Problems (5) CAD (coronary artery disease) Diabetes mellitus History of obstructive sleep apnea HLD (hyperlipidemia) HTN (hypertension) , per nurse's notes. Physical Examination Vital Signs Vital Signs/Vital Measures 06/28/2019 23:00 EST Systolic Blood Pressure 143 mmHg HI Diastolic Blood Pressure 96 mmHg HI Temperature Source Oral Temperature Mode Fahrenheit Temperature, Fahrenheit 97.9 Deg F Clinical Temperature, C 36.6 Deg C Peripheral Pulse Rate 78 bpm Respiratory Rate 16 Breaths/Min Oxygen Saturation 97 % Oxygen Therapy Mode Room air . Per nurse's notes. General: Alert, no acute distress. Skin: Warm, dry. Head: Normocephalic. Neck: Supple. Ears, nose, mouth and throat: Oral mucosa moist. Cardiovascular: Regular rate and rhythm, No murmur. Respiratory: Lungs are clear to auscultation, respirations are non-labored, breath sounds are equal. Gastrointestinal: Soft, Non distended, lower abd tenderness. Genitourinary: No discharge, Scrotum with no abnormal erythema, well healing wound, closed with no dehiscence, no purulent drainage. No crepitus.. Neurological: Normal speech observed, normal coordination observed. Psychiatric: Cooperative. Medical Decision Making Documents reviewed: Emergency department nurses' notes, prior records. Results review: Lab results : Lab Results 06/28/2019 23:29 EST Sodium Level 139 mmol/L Potassium Level 3.2 mmol/L LOW Chloride Level 104 mmol/L Carbon Dioxide Level 27 mmol/L Anion Gap 11 Glucose Level 250 mg/dL HI Blood Urea Nitrogen 14 mg/dL CREATININE 0.90 mg/dL eGFR >60 mL/min/1.73m2 eGFR NonAfrican >60 mL/min/1.73m2 Bun/Creatinine 15.6 Calcium Level 8.9 mg/dL WBC 8.9 K/uL RBC 5.02 Million/uL Hgb 13.8 g/dL Hct 42.4 % MCV 84.5 fL MCH 27.5 pg MCHC 32.5 Gram/dL Platelet Count 165 K/uL MPV 11.7 fL RDW 15.8 % HI Neut % 52.5 % Neut # 4.65 K/uL Lymph % 33.5 % Lymph # 2.97 x10(3)/uL Meeker % 7.4 % Meeker # 0.66 K/uL Eos % 5.1 % Eos # 0.45 x10(3)/uL Baso % 0.8 % Baso # 0.07 x10(3)/uL Slide Review No IG# 0.06 x10(3)/uL HI IG% 0.70 % HI . Notes: Patient is afebrile, no leukocytosis, but he will need ultrasound to verify flow to left testicle and evaluate for possible abscess/infection/cellulitis or other acute testicular or scrotal emergency. Patient was offered ibuprofen for pain and refuses this. He then becomes angry and wants to leave AGAINST MEDICAL ADVICE, not wait for his ultrasound and go to another hospital as he is apparently not getting what he wants for pain. Again however - he refused my initial attempts at pain control with ibuprofen. Patient refused to sign the AMA forms, but was informed that he needed to stay for further testing and that was the medical recommendation.. Impression and Plan Diagnosis Testicular pain - Discharge, Medical Plan Condition: Stable. Counseled: Patient, Family, Regarding diagnosis, Regarding diagnostic results, Regarding treatment plan, Patient indicated understanding of instructions. documented in this encounter Plan of Treatment Not on file documented as of this encounter Visit Diagnoses Not on filedocumented in this encounter
--- OUTSIDE RECORDS SUMMARY | 2024-10-25 20:20 | XMS_ITS | Encounter Summary ---
Author Organization [employer] Address [address] [place] [address] Care Team Providers Care Production Mechanic Name Role Phone Unavailable Primary Care Provider Unavailabl e Encounter Details Date Type Department Care Team (Late st Contact Info) Description 05/30/2019 Transcribed Document [facility] [address] [place] [address] Provider marc Navarro MD Social History Tobacco Use Types Packs/Day Years Used Date Smoking Tobacco: Never Assessed Sex and Gender Information Value Date Recorded Sex Assigned at Not on file Legal Sex Male 4:07 PM CDT Gender Identity Not on file Sexual Orientation Not on file documented as of this encounter Miscellaneous Notes * Cerner Conversion Note - [facility] Melanie ProviderMD - 05/30/2019 6:00 AM EST Chart Check - Review Order Profile Entered On: 05/30/2019 5:07 EST Performed On: 05/30/2019 5:00 EST by Jenna Vargas Lpn Chart Check Powerplans Initiated/Discontinued as Appropriate : Yes All Active Orders Reviewed : Yes Jenna Vargas Lpn - 05/30/2019 5:07 EST Electronically signed by Angel [facility] Conversion Operations Vocational Instructor Cerner at 10/14/2022 2:01 PM CDT documented in this encounter Plan of Treatment Not on file documented as of this encounter Visit Diagnoses Not on filedocumented in this encounter
--- OUTSIDE RECORDS SUMMARY | 2024-10-25 20:20 | XMS_ITS | Encounter Summary ---
Author Organization [employer] Address [address] [place] [address] Care Team Providers Care International Student Counselor Name Role Phone Unavailable Primary Care Provider Unavailabl e Encounter Details Date Type Department Care Team (Late st Contact Info) Description 05/29/[address] [facility] [place] Medicine [address] [place] [address] ProviderMelanie MD [address] [place] [id number] Social History Tobacco Use Types Packs/Day Years Used Date Smoking Tobacco: Never Assessed Sex and Gender Information Value Date Recorded Sex Assigned at Not on file Legal Sex Male 4:07 PM CDT Gender Identity Not on file Sexual Orientation Not on file documented as of this encounter Miscellaneous Notes * Cerner Conversion Note - Historical ProviderMD - 05/29/2019 2:02 PM INTER FOLD ROLL CUTTER Patient: TERRI MOREL Age: 59 years Sex: Male : 1960 Associated Diagnoses: None Author: CHUCK MULLER MD-INF ID Consultation/Initial Hospital Visit Referring MD: Dr. Kenneth Frank Evaluating MD: Dr. Chuck Muller Date of admission: 05/28/19 Date of consultation: 05/29/19 Reason for consultation: Scrotal abscess Chief complaint: Scrotal abscess HPI: Mr. Terri [...] the wound and he has been taking [place] Percocet and morphine at home with no [...] x-ray showed mild bibasilar atelectasis versus pneumonia. Patient did receive scrotal exploration this morning with incision and drainage of scrotal abscess however there is no operative note available at time of consultation. His wound is currently packed. He has pain which is constant at present but dull, nonradiating, worse with palpation, better with pain meds and 2 out of 10. He denies any specific exposure or trauma otherwise. No other blunt force or penetrating trauma. No animal insect or arthropod bite. No fresh/brackish/salt water exposure. No prior history MRSA VRE C. difficile or ESBL/KP C organisms No headache photophobia or neck stiffness. No shortness of breath cough or hemoptysis. No nausea vomiting diarrhea or abdominal pain. No new dysuria hematuria or pyuria. Allergies:No qualifying data available Medications:Medications by Classification Antimicrobials piperacillin-tazobactam + Sodium Chloride 0.9% intravenous s - 3.375 Gram, IV Piggyback, Q6HInt, infuse over 3 Hour(s), Routine vancomycin + Sodium Chloride 0.9% intravenous solution 250 m - 1,500 mg, IV Piggyback, [id number], infuse over 60 Minute(s), Routine Immunology influenza virus vaccine, inactivated - 0.5 mL, IntraMuscular, Inj, [id number] Cardiovascular carvedilol - 25 mg, Oral, Tab, BID, Routine NIFEdipine - 90 mg, Oral, ER Tab, Daily cloNIDine - 0.1 mg, Oral, Tab, Q3H, PRN for Hypertension, Routine hydroCHLOROthiazide - 12.5 mg, Oral, Tab, Daily lisinopril - 10 mg, Oral, Tab, Daily atorvastatin (Lipitor) - 10 mg, Oral, Tab, At Bedtime Respiratory albuterol-ipratropium (DuoNeb 0.5 mg-2.5 mg/3 mL inhalation - 3 mL, Nebulized Inhalation, Inh, RT_Q3H, PRN for Shortness of Breath, Routine promethazine (Phenergan) - 12.5 mg, IV Push, Inj, Q4H, PRN for Nausea/Vomiting, Routine GI ondansetron (Zofran) - 4 mg, IV Push, Inj, Q4H, PRN for Nausea/Vomiting, Routine famotidine (Pepcid) - 20 mg, Oral, Tab, BID, Routine lactobacillus acidophilus - 1 Cap, Oral, Cap, BID, Routine Psych desipramine - 25 mg, Oral, Tab, At Bedtime, Routine DULoxetine - 60 mg, Oral, Cap, Daily, Routine Pain Meds HYDROmorphone (Dilaudid) - 1 mg, IV Push, Inj, Q4H, PRN for Pain (Severe 7-10), Routine acetaminophen-oxyCODONE (Percocet 10/325 oral tablet) - 1 Tab, Oral, Tab, Q4H, PRN for Pain (Moderate 4-6), Routine cyclobenzaprine - 10 mg, Oral, Tab, BID, PRN for Spasms, Routine acetaminophen (Tylenol) - 650 mg, Oral, Tab, Q4H, PRN for Pain (Mild 1-3), Routine Sedatives temazepam (Restoril) - 30 mg, Oral, Cap, At Bedtime, PRN for Sleep, Routine Other nicotine (nicotine 14 mg/24 hr transdermal film, extended re - 1 Patch, TransDermal, Patch, Daily, Routine Undefined Medications hydrALAZINE - 10 mg, IV Push, Inj, Q3H, PRN for Hypertension, Routine insulin regular (insulin regular sliding scale) - Scale D, SubCutaneous, Inj, Q6H, Routine Past Medical History: Active Problems (1) History of obstructive sleep apnea Past Surgical History: Hydrocele repair 04/04/19 CABG Right inguinal hernia repair Right orchiectomy Family History: Noncontributory Social History: Denies EtOH or illicit drug use Ongoing tobacco abuse Review of Systems: CONSTITUTION: Denies chills, sweats, malaise, weakness, fatigue, [...] 24 hrs) Last Charted Minimum Maximum Temp 98.1 (MAY 29 12:40) 97.7 (MAY 29 11:00) 98.6 (MAY 28 18:16) Mon HR 60 (MAY 29 13:36) 60 (MAY 29 13:36) 79 (MAY 29 12:50) Periph HR 82 (MAY 29 00:00) 75 (MAY 28 18:16) 82 (MAY 29 00:00) Resp Rate 16 (MAY 29 13:36) L 12 (MAY 29 12:55) 19 (MAY 29 12:50) SBP H 162 (MAY 29 13:36) H 143 (MAY 28 23:24) H 183 (MAY 29 13:00) DBP H 95 (MAY 29 13:36) 75 (MAY 29 13:05) H 112 (MAY 29 12:45) MAP 125 (MAY 29 13:36) 114 (MAY 29 12:40) 137 (MAY 29 13:00) SpO2 97 (MAY 29:36) 95 (MAY 29 04:00) 100 (MAY 28 18:16) Exam: Gen: Sleepy, in no acute distress, appears stated age [...] SKIN: No eruptions, lesions, or rashes NEURO: Sleepy No peripheral stigmata/phenomena of endocarditis IV without obvious redness or drainage Labs:Labs (Last four charted values) WBC 7.2 (MAY [...] process/pending Rad: Radiology Results (Last 48 hours) [id number] -- 05/28/2019 20:28 CR Chest 1 Vw [...] scrotum after prior surgery in Mar 2019; need further clarification from urology regarding depth of involvement and extent of tissue involvement and any other prior culture data/antibiotic history that they might have. Empiric mixed coverage ongoing with daptomycin/Zosyn. Further adjustments to depend on clinical course/study results and response to therapy. 2. Acute Scrotal cellulitis 3. Status post left hydrocelectomy on 04/04/19 4. Coronary artery disease status post CABG 11/22/18 5. Diabetes mellitus type 2; you need to tightly control blood sugar to give best chance for healing 6. Ongoing tobacco abuse RECOMMENDATIONS/PLANS: Thank you for the consultation for TERRI MOREL Recommend the followin. continue Zosyn 2. IV dapto 3. Continue [...] further serious morbidity and other serious sequela Dr. Chuck Muller has obtained history, performed physical exam and formulated the above plan of care Justino Vazquez APRN for Dr. Chuck OROPEZA DC documented in this encounter Plan of Treatment Not on file documented as of this encounter Visit Diagnoses Not on filedocumented in this encounter
--- NOTE | 2024-10-25 20:21 | XR_ITS ---
PROCEDURE INFORMATION: Exam: XR Pelvis Exam date and time: 10/25/2024 8:25 PM Age: 64 years old Clinical indication: Injury or trauma; Fall; Other: Pain TECHNIQUE: Imaging protocol: Radiologic exam of the pelvis. Views: 1 or 2 view. COMPARISON: CT ANGIO ABDOMEN PELVIS 06/25/2023 6:48 PM FINDINGS: Bones/joints: Unremarkable. No acute fracture. Soft tissues: Unremarkable. IMPRESSION: No acute findings.
--- OUTSIDE RECORDS SUMMARY | 2024-10-25 20:21 | XMS_ITS | Referral Summary ---
Author Organization [employer] Address [address] [place] [address] Care Team Providers Care Gasoline Engine Assembler Name Role Phone Unavailable Primary Care Provider Unavailabl e Social History Tobacco Use Types Packs/Day Years Used Date Smoking Tobacco: Never Assessed Sex and Gender Information Value Date Recorded Sex Assigned at Not on file Legal Sex Male 4:07 PM CDT Gender Identity Not on file Sexual Orientation Not on file Plan of Treatment Not on file
--- OUTSIDE RECORDS SUMMARY | 2024-10-25 20:21 | XMS_ITS | Encounter Summary ---
Author Organization [employer] Address [address] [place] [address] Care Team Providers Care Cheese Cooker Name Role Phone Unavailable Primary Care Provider Unavailabl e Encounter Details Date Type Department Care Team (Late st Contact Info) Description 04/08/2019 Transcribed Document [facility] [place] Family Medicine [address] [place] [address] ProviderMelanie MD [facility] [place], [place] [id number] Social History Tobacco Use Types Packs/Day Years Used Date Smoking Tobacco: Never Assessed Sex and Gender Information Value Date Recorded Sex Assigned at Not on file Legal Sex Male 4:07 PM CDT Gender Identity Not on file Sexual Orientation Not on file documented as of this encounter Miscellaneous Notes * Cerner Conversion Note - Historical ProviderMD - 04/08/2019 2:47 PM GAUGE AND INSTRUMENT INSPECTOR Electronically signed by Nicci Ortiz Conversion Hand Fretted Instrument Maker Olivianer at 09/05/2022 2:21 PM CDT documented in this encounter Plan of Treatment Not on file documented as of this encounter Visit Diagnoses Not on filedocumented in this encounter
--- OUTSIDE RECORDS SUMMARY | 2024-10-25 20:21 | XMS_ITS | Encounter Summary ---
Author Organization [email or web address] Address [address] [place] [address] Care Team Providers Care Ring Stamper Name Role Phone Unavailable Primary Care Provider Unavailabl e Reason for Referral * Consultation (Routine) - Closed Specialty Diagnoses / Procedures Referred By Contac t Referred To Contact Psychology / Behavioral Health Diagnoses Other chronic pain Rick Jacobo MD [address] [address] [place] [address] Phone: tel: fax: Tresa Herrera, MS [address] [place] [address] Phone: tel: fax: Referral ID Status Reason Start Date Expiration Date V isits Requested Visits Authorized [id number] Closed Specialty Services Required 04/01/2023 09/28/2023 1 1 Encounter Details Date Type Department Care Team (Late st Contact Info) Description 04/01/2023 Outside Orders [facility] [address] [place] [address] Rick Jacobo MD [address] [address] [place] [address] Other chronic pain (Primary Dx); Chronic pain syndrome Social History Tobacco Use Types Packs/Day Years Used Date Smoking Tobacco: Never Assessed Sex and Gender Information Value Date Recorded Sex Assigned at Not on file Legal Sex Male 4:07 PM CDT Gender Identity Not on file Sexual Orientation Not on file documented as of this encounter Plan of Treatment Scheduled Referrals Name Type Priority Associated Diagnoses Order Schedule Ambulatory referral to Psychology Outpatient Referral Routine Other chronic pain Ordered: 04/01/2023 documented as of this encounter Visit Diagnoses Diagnosis Other chronic pain- Primary Chronic pain syndrome documented in this encounter
--- OUTSIDE RECORDS SUMMARY | 2024-10-25 20:21 | XMS_ITS | Encounter Summary ---
Author Organization [employer] Address [address] [place] [address] Care Team Providers Care Crusher Assembler Name Role Phone Unavailable Primary Care Provider Unavailabl e Encounter Details Date Type Department Care Team (Late st Contact Info) Description 04/08/2019 Transcribed Document [facility] [place] Family Medicine [address] [place] [address] ProviderMelanie MD [facility] [place], [place] [id number] Social History Tobacco Use Types Packs/Day Years Used Date Smoking Tobacco: Never Assessed Sex and Gender Information Value Date Recorded Sex Assigned at Not on file Legal Sex Male 4:07 PM CDT Gender Identity Not on file Sexual Orientation Not on file documented as of this encounter Miscellaneous Notes * Cerner Conversion Note - Historical ProviderMD - 04/08/2019 11:03 AM BUNDLE SHAKER Pain Assessment Entered On: 04/08/2019 12:31 EST Performed On: 04/08/2019 12:27 EST by Renata Dia RN Intervention Information: acetaminophen-oxyCODONE Performed by KEN GAY RN on 04/08/2019 11:14:00 EST acetaminophen-oxyCODONE,1Tab Oral Pain Assessment Pain Assessment : Follow-up assessment Pain Scale Used : 0-10 Scale Renata Dia RN - 04/08/2019 12:27 EST Pain Scale Intensity : 1 Renata Dia RN - 04/08/2019 12:27 EST Image 4 - Images currently included in the form version of this document have not been included in the text rendition version of the form. documented in this encounter Plan of Treatment Not on file documented as of this encounter Visit Diagnoses Not on filedocumented in this encounter
--- OUTSIDE RECORDS SUMMARY | 2024-10-25 20:21 | XMS_ITS | Encounter Summary ---
Author Organization [employer] Address [address] [place] [address] Care Team Providers Care Data Processing Systems Consultant Name Role Phone Unavailable Primary Care Provider Unavailabl e Encounter Details Date Type Department Care Team (Late st Contact Info) Description 09/27/2019 Transcribed Document [facility] [place] Family Medicine [address] [place] [address] ProviderMelanie MD [facility] [place], [place] [id number] Social History Tobacco Use Types Packs/Day Years Used Date Smoking Tobacco: Never Assessed Sex and Gender Information Value Date Recorded Sex Assigned at Not on file Legal Sex Male 4:07 PM CDT Gender Identity Not on file Sexual Orientation Not on file documented as of this encounter Miscellaneous Notes * Cerner Conversion Note - Melanie ProviderMD - 09/27/2019 3:56 PM CDT DATE OF SERVICE: 09/27/2019 SLEEP TELEMEDICINE FOLLOWUP HISTORY OF PRESENT ILLNESS: This was a telehealth visit using a Zoom platform, using the patient's computer with good audio and video connection. He gave verbal agreement for the telehealth visit and was identified by name and date of . Mr. Vargas is seen in followup, last here September 06, 2018. He has previously documented obstructive sleep apnea, has been using auto-CPAP with a pressure range of 8-16 cm using a nasal mask and heated humidifier. He has done well with it. He reports excellent use of CPAP. We do not have a download today, but he reports no sleepiness. He also has insomnia and has been doing well with trazodone for this. MEDICATIONS: As follows, 1. Lisinopril. 2. Hydrochlorothiazide. 3. Crestor. 4. Coreg. 5. Hydralazine. 6. Aspirin. 7. Vitamin D. 8. Melatonin. 9. Tradjenta. 10. Glimepiride. 11. [place]. 12. Omeprazole. 13. Buprenorphine. 14. Januvia. 15. Farxiga. 16. Morphine sulfate. 17. Desipramine. 18. Cyclobenzaprine. 19. Isosorbide. 20. Doxycycline. 21. Duloxetine. OTHER MEDICAL PROBLEMS: Include diabetes, hypertension, hyperlipidemia. He also has chronic pain and gastroesophageal reflux and obesity. PHYSICAL EXAMINATION: Today, Mr. Vargas is awake and alert and in no distress. The oral exam shows a large tongue with Mallampati class 4 appearance using the camera on the patient's computer. Nasal passageways appeared patent without obstruction. The skin around the nose and mouth was intact. He was awake and alert. He was oriented, appropriate mood and affect. Speech was fluent. ASSESSMENT: 1. Obstructive sleep apnea syndrome, doing well with CPAP. We do not have his download, but he reports good compliance and benefit from it. 2. Insomnia, doing well with trazodone. 3. Coronary artery disease with bypass surgery since last seen. He has also stopped smoking. RECOMMENDATIONS: 1. We will ask his medical equipment company for a download from his machine to be sure that he is doing well. 2. I have refilled his order for mask and supplies. 3. Continue off tobacco. 4. Continue with trazodone. 5. He is encouraged to lose weight. 6. We will plan to follow up in 1 year and as needed. [id number] time today was 15 minutes with more than half of this in counseling regarding smoking and his use of CPAP. /[id number] MD JANES Jeffrey/LESLEY / JS / MODL /[id number] CC: José Elizabeth MD documented in this encounter Plan of Treatment Not on file documented as of this encounter Visit Diagnoses Not on filedocumented in this encounter
--- OUTSIDE RECORDS SUMMARY | 2024-10-25 20:21 | XMS_ITS | Encounter Summary ---
Author Organization [employer] Address [address] [place] [address] Care Team Providers Care Detail Supervisor Name Role Phone Unavailable Primary Care Provider Unavailabl e Encounter Details Date Type Department Care Team (Late st Contact Info) Description 04/08/2019 Transcribed Document [facility] [place] [address] [place] [address] ProviderMelanie MD [address] [place] [id number] Social History Tobacco Use Types Packs/Day Years Used Date Smoking Tobacco: Never Assessed Sex and Gender Information Value Date Recorded Sex Assigned at Not on file Legal Sex Male 4:07 PM CDT Gender Identity Not on file Sexual Orientation Not on file documented as of this encounter Miscellaneous Notes * Cerner Conversion Note - Melanie Grider MD - 04/08/2019 11:01 AM CARTON WAXING MACHINE OPERATOR Patient: TERRI MOREL Age: 59 years Sex: Male : 1960 Associated Diagnoses: Scrotal hematoma Author: ERIC CHOW MD-EMR History of Present Illness The patient presents for 59-year-old male status post hydrocele removal from the left side of his scrotum 4 days ago complaining of difficulty urinating, continued bleeding from the surgical site and gross edema and ecchymosis of his scrotum and penis.. Previous treatment: outpatient surgery. Post op course: worsening. Incision complaints: pain. Therapy today: none. Associated symptoms: denies fever and denies chills. Review of Systems Constitutional symptoms: No fever, no chills. Skin symptoms: No jaundice, Eye symptoms: Vision unchanged. ENMT symptoms: No ear pain, Respiratory symptoms: No shortness of breath, Cardiovascular symptoms: No chest pain, Gastrointestinal symptoms: No abdominal pain, Genitourinary symptoms: No dysuria, Musculoskeletal symptoms: No back pain, Neurologic symptoms: No dizziness, Endocrine symptoms: No polyuria, Hematologic/Lymphatic symptoms: Bleeding tendency negative, bruising tendency negative, no petechiae. Additional review of systems information: All other systems reviewed and otherwise negative. Health Status Allergies: Allergic Reactions (Selected) No Known Allergies. Past Medical/ Family/ Social History Medical history Cardiovascular. Surgical history: Right total orchiectomy ([id number]). Repair of right inguinal hernia ([id number]). Hydrocele ([id number]). CABG (Coronary artery bypass grafting) planned ([id number]).. Family history: No family history items have been selected or recorded.. Social history: Social & Psychosocial Habits No Data Available . Physical Examination Vital Signs Vital Measurements 04/08/2019 10:49 EST Systolic Blood Pressure 140 mmHg Diastolic Blood Pressure 67 mmHg Temperature Source Oral Temperature Mode Fahrenheit Temperature, Fahrenheit 98.6 Deg F Clinical Temperature, C 37 Deg C Peripheral Pulse Rate 88 bpm Respiratory Rate 20 Breaths/Min Oxygen Saturation 95 % Oxygen Therapy Mode Room air . General: Moderate distress. Skin: Warm, dry. Eye: Pupils are equal, round and reactive to light, extraocular movements are intact. Neck: Supple, no tenderness. Cardiovascular: Regular rate and rhythm, No murmur. Respiratory: Lungs are clear to auscultation, respirations are non-labored. Genitourinary: Patient's scrotum and penis are severely swollen and ecchymotic. There is a this posterior scrotal incision with blood dripping from an intermittently. Patient is able to urinate but reports increased difficulty urinating presumably due to edema of the penis, Ecchymosis does not extend onto patient's thighs at this time but does extend posteriorly toward the anus.. Musculoskeletal: Normal ROM, normal strength, no tenderness. Neurological: Alert and oriented to person, place, time, and situation, No focal neurological deficit observed. Psychiatric: Cooperative. Medical Decision Making Results review: Lab results : Lab Results 04/08/2019 12:00 EST Urine Type U CleanCatch Urine Color Yellow Urine Appearance Clear Urine Specific [place] >1.030 HI Urine pH Dipstick 6.0 Urine Leukocyte Esterase Negative Urine Nitrite Negative Urine Protein Dipstick Negative Urine Glucose Dipstick >=1000 Urine Ketones Dipstick Negative Urine Urobilinogen Dipstick 0.2 EU/dL Urine Bilirubin Dipstick Negative Urine Blood Dipstick Negative 04/08/2019 11:06 EST Sodium Level 138 mmol/L Potassium Level 3.0 mmol/L LOW Chloride Level 101 mmol/L LOW Carbon Dioxide Level 31 mmol/L Anion Gap 9 Glucose Level 166 mg/dL HI Blood Urea Nitrogen 11 mg/dL Creatinine Level 0.80 mg/dL eGFR >60 mL/min/1.73m2 eGFR NonAfrican >60 mL/min/1.73m2 Bun/Creatinine 13.8 Calcium Level 9.3 mg/dL Magnesium Level 1.7 mg/dL WBC 11.4 K/uL HI RBC 4.54 Million/uL Hgb 11.7 g/dL LOW Hct 37.2 % LOW MCV 81.9 fL MCH 25.8 pg MCHC 31.5 Gram/dL LOW Platelet Count 250 K/uL MPV 12.1 fL RDW 18.2 % HI Neut % 66.3 % Neut # 7.52 K/uL HI Lymph % 19.5 % Lymph # 2.22 x10(3)/uL [place] % 8.9 % [place] # 1.01 K/uL HI Eos % 4.0 % Eos # 0.46 x10(3)/uL Baso % 0.6 % Baso # 0.07 x10(3)/uL nRBC 0.020 HI Slide Review No IG# 0.08 x10(3)/uL HI IG% 0.70 % HI PT 10.3 Second(s) INR 1.0 PTT 29.6 Second(s) . Radiology results: Radiology Results (Last 48 hours) [id number] -- 04/08/2019 10:42 US Scrotum and Contents (04/08/2019 12:08) Result: ULTRASOUND SCROTUMINDICATION: Worsening pain and swelling to scrotum. Right testicleremoved 15 years ago with right hydrocele removed 4 days ago.TECHNIQUE: Multiple sonographic images of the scrotum were obtained inthe longitudinal and transverse planes.COMPARISON: None.FINDINGS: The right testicle is absent. The left testicle measures 3.3 x 4.5 x 3.6 cm. It is homogeneouswithout intra-testicular mass. The epididymis is normal. There iscomplex abnormal echogenicity separate from the testicle but within thescrotum. This demonstrates no significant internal blood flow and mayrepresent a large hematoma. There is significant scrotal skinthickening. There is no evidence of left testicular torsion.IMPRESSION: 1. No evidence of left intratesticular mass or testicular torsion.2. Extratesticular complex abnormality within the scrotum with nointernal blood flow. Favor this to represent a complex hematoma givensurgery 4 days prior. Recommend follow-up. . Reexamination/ Reevaluation Time: 04/08/2019 13:00:00 . Notes: Discussed with Dr. Luque, Tests pending. Impression and Plan Diagnosis Scrotal hematoma - Discharge, Emergency medicine, Medical Plan Condition: Unchanged. Disposition: Discharged Admit/Transfer/Discharge: Discharge (Order): Start: 04/08/2019 14:45 EST, Discharge to: Home . Prescriptions: Prescription Oracle Database Analyst Pharmacy: [facility] rectal enema (Prescribe): 133 mL, Rectal, 1-Time, PRN: as needed for constipation, 133 mL, 1 Refill(s) . Patient was given the following educational materials: Scrotal Hematoma, Constipation, Adult. Follow up with: SUKHJINDER SHRESTHA Within 2 to 3 days; JC LUQUE Md Within 3 to 5 days. documented in this encounter Plan of Treatment Not on file documented as of this encounter Visit Diagnoses Not on filedocumented in this encounter
--- OUTSIDE RECORDS SUMMARY | 2024-10-25 20:21 | XMS_ITS | Encounter Summary ---
Author Organization [email or web address] Address [address] [place] [address] Care Team Providers Care Production Gear Cutter Name Role Phone Unavailable Primary Care Provider Unavailabl e Encounter Details Date Type Department Care Team (Late st Contact Info) Description 04/08/2019 Transcribed Document [facility] [place] [address] [place] [address] ProviderMelanie MD [facility] [place], [place] [address] Social History Tobacco Use Types Packs/Day Years Used Date Smoking Tobacco: Never Assessed Sex and Gender Information Value Date Recorded Sex Assigned at Not on file Legal Sex Male 4:07 PM CDT Gender Identity Not on file Sexual Orientation Not on file documented as of this encounter Miscellaneous Notes * Cerner Conversion Note - Melanie ProviderMD - 04/08/2019 10:42 AM RN IMAGING ED Triage Entered On: 04/08/2019 10:52 EST Performed On: 04/08/2019 10:49 EST by KEN REBOLLEDO ED Triage Across the Room Triage Date/Time : 04/08/2019 10:49 EST Chief Complaint : pt had hydrocele 4 days ago, reports increased swelling/drainage and pain to testicles, difficulty to urinate due to swelling. KEN REBOLLEDO - 04/08/2019 10:49 EST DCP GENERIC CODE Tracking Acuity : 3 - Urgent Tracking Group : [facility] ED KEN REBOLLEDO - 04/08/2019 10:49 EST Mode of Arrival : Ambulatory Transported to ED by : Private vehicle To Room Via : Ambulate Accompanied By : Spouse ED Vital Signs : Document Height & Weight : Document ED Allergies : Document ED Reason for Visit : Document KEN REBOLLEDO - 04/08/2019 10:49 EST Infectious Disease History Infectious Disease History : Chicken pox/Shingles Fever/Chills Last 48 Hours : No Travel To Regions with Travel Advisories : No Travel Outside [place] Within Last 30 Days : No Contact With Traveler to Advisory Region : No Tuberculosis Symptoms : None KEN REBOLLEDO - 04/08/2019 10:49 EST Vital Signs ED Temperature Source : Oral Temperature Mode : Fahrenheit Temperature, Fahrenheit : 98.6 Deg F Clinical Temperature, C : 37 Deg C Oxygen Therapy Mode : Room air Peripheral Pulse Rate : 88 bpm Respiratory Rate : 20 Breaths/Min Systolic Blood Pressure : 140 mmHg Diastolic Blood Pressure : 67 mmHg Oxygen Saturation : 95 % KEN REBOLLEDO - 04/08/2019 10:49 EST Allergy (As Of: 04/08/2019 10:52:11 EST) Allergies (Active) No Known Allergies Estimated Onset Date: Unspecified ; Created By: CONTRIBUTOR_SYSTEM, HIST_NumascaleMIHIR; Reaction Status: Active ; Category: Drug ; Substance: No Known Allergies ; Type: Allergy ; Updated By: CONTRIBUTOR_SYSTEM, HIST_CERMIHIR; Reviewed Date: 04/08/2019 10:51 EST Diagnosis Control ED (As Of: 04/08/2019 10:52:11 EST) Diagnoses(Active) Post surgery problem Date: 04/08/2019 ; Diagnosis Type: Reason For Visit ; Confirmation: Complaint of ; Clinical Dx: Post surgery problem ; Classification: Medical ; Clinical Service: Emergency medicine ; Code: PNED ; Probability: 0 ; Diagnosis Code: [id number] ED Height and Weight Height Source : Stated Height Entry Format : [place] Height, Feet : 5 ft(Converted to: 152 cm, 60 Inch) Height, Inches : 11 Inch(Converted to: 0 ft 11 Inch, 27.94 cm) Clinical Height : 180.34 cm Weight Source, ED : Critical estimated dosing weight Weight Entry Format : [place] Weight, Pounds : 230 lb Clinical Dosing Weight : 104.55 kg Body Surface Area (BSA) : 2.24 m2 Body Mass Index : 32.1 kg/m2 (HI) [place] Body Weight (IBW) : 74.31 kg KEN REBOLLEDO - 04/08/2019 10:49 EST documented in this encounter Plan of Treatment Not on file documented as of this encounter Visit Diagnoses Not on filedocumented in this encounter
--- OUTSIDE RECORDS SUMMARY | 2024-10-25 20:21 | XMS_ITS | Clinical Summary ---
Author Organization [facility] Address [address] [place] [address] Phone Care Team Providers Care Counsel Name Role Phone Darnell Elizabeth MD Primary Care Provider [phone] Allergies Active Allergy Reactions Criticality Noted Date Comments Dobutamine Medium 02/05/2012 Pt states last time he took. His bp was so high he had to be admitted. Medications lisinopril-hydr ochlorothiazide (PRINZIDE;ZESTO RETIC) 20-12.5 mg per tablet Take 1 Tab by mouth daily. Active metFORMIN (GLUCOPHAGE) 500 mg tablet Take 1,000 mg by mouth 2 times daily. Active rosuvastatin (CRESTOR) 10 mg tablet Take 20 mg by mouth daily. Active CARVEDILOL (COREG ORAL) Take by mouth 2 times daily. Pt doesn't know dose Active losartan (COZAAR) 100 mg tablet Take 100 mg by mouth daily. Active NIFEdipine (PROCARDIA XL) 90 mg CR tablet Take 90 mg by mouth daily. Active hydrALAZINE (APRESOLINE) 50 mg tablet Take 50 mg by mouth daily. Active pantoprazole (PROTONIX) 40 mg Take 40 mg by mouth daily. Active HYDROcodone-jerson taminophen (NORCO) 10-325 mg per tablet Take 1 Tab by mouth as needed. Active aspirin 325 mg Take 325 mg by mouth daily. Active Melatonin 5 mg Cap Take 5 mg by mouth daily. Active AMITRIPTYLINE HCL (AMITRIPTYLINE ORAL) Take 50 mg by mouth nightly. Active promethazine-co deine (PHENERGAN WITH CODEINE) 6.25-10 mg/5 mL Oral Syrup Take 5 mL by mouth every 4 hours. 120 mL 0 03/05/2014 Active linagliptin (TRADJENTA) 5 mg Oral Tablet Take 5 mg by mouth daily. Active glimepiride (AMARYL) 4 mg Oral Tablet Take 4 mg by mouth every morning (before breakfast). Active buPROPion (WELLBUTRIN XL) 150 mg Oral Tablet Sustained Release 24 hr Take 150 mg by mouth every morning. Active omeprazole (PRILOSEC) 40 mg Oral Capsule, Delayed Release(E.C.) Take by mouth daily. Active doxycycline (VIBRAMYCIN) 100 mg Oral Capsule Take 100 mg by mouth daily. Active ondansetron (ZOFRAN ODT) 4 mg Oral Tablet, Rapid Dissolve Take 1 Tab by mouth every 6 hours as needed for Nausea. 12 Tab 0 10/18/2014 Active Immunizations Immunization Administration Dates Next Due Influenza Vaccine, Unspecified Formulation 02/04 Pneumococcal Polysaccharide 23 Valent 03/18/2011 Tdap 05/05/2013 Surgical History Surgery Date Site/Laterality Comments ABDOMEN SURGERY HERNIA REPAIR CARDIAC CATHETERIZATION SPINE SURGERY CARDIAC SURGERY Stents 2005,2009 Medical History Medical History Date Comments Hypertension CAD (coronary artery disease) Diabetes mellitus (HCC) Chronic pain Unspecified sleep apnea Blood circulation, collateral St ents placed in 2009 Neuromuscular disorder (HCC) Spi nal Nerve Stimulator. NO MRI. Hyperlipidemia Social History Tobacco Use Types Packs/Day Years Used Date Smoking Tobacco: Every Day Cigarettes Smokeless Tobacco: Never Tobacco Cessation:Ready to Q uit: No Alcohol Use Standard Drinks/Week Comments No 0 (1 standard drink = 0.6 oz pur e alcohol) Sex and Gender Information Value Date Recorded Sex Assigned at Not on file Legal Sex Male 4:28 AM EDT Gender Identity Not on file Sexual Orientation Not on file Obstetrics History Last Filed Vital Signs Vital Sign Reading Time Taken Comments Blood Pressure 177/92 10/18/2014 5:34 PM EDT Pulse 89 10/18/2014 5:34 PM EDT Temperature 37.1 C (98.7 F) 10/18/2014 5:34 PM EDT Respiratory Rate 20 10/18/2014 5:34 PM EDT Oxygen Saturation 97% 10/18/2014 5:34 PM EDT Inhaled Oxygen Concentration - - Weight 122.5 kg (270 lb) 10/18/2014 5:34 PM EDT Height 180.3 cm (5' 11 ) 10/18/2014 5:34 PM EDT Body Mass Index 37.66 10/18/2014 5:34 PM EDT Plan of Treatment Health Maintenance Due Date Last Done Comments Annual Wellness Exam 02/17/1963 Hepatitis C Screening 1979 Cologuard 2006 Colon Cancer Screening 2006 Colonoscopy 2006 FIT 2006 Sigmoidoscopy 2006 Virtual Colonography 2006 Zoster (1 of 2) 2011 Pneumococcal Vaccine 50+ (2 of 2 - PCV) 03/18/2012 03/18/2011 DTaP/TDaP/Td (2 - Td or Tdap) 05/05/2023 05/05/2013 COVID-19 Vaccine ( - 2023-2 5 season) 2024 Influenza Vaccine (Season Ended) 2025 02/05/20 12 Hepatitis B Vaccine Aged Out No longe r eligible based on patient's age to complete this topic Meningococcal B Vaccine Aged Out No l onger eligible based on patient's age to complete this topic Insurance [facility] Care Teams Counsel Relationship Specialty Start Date End Date Darnell Elizabeth MD [address] [place] [address] PCP - General Internal Medicine 12/31/12
--- OUTSIDE RECORDS SUMMARY | 2024-10-25 20:21 | XMS_ITS | Encounter Summary ---
Author Organization [employer] Address [address] [place] [address] Care Team Providers Care Court Usher Name Role Phone Unavailable Primary Care Provider Unavailabl e Encounter Details Date Type Department Care Team (Late st Contact Info) Description 06/29/2019 Transcribed Document [facility] [place] [address] [place] [address] ProviderMelanie MD [facility] [place] [address] Social History Tobacco Use Types Packs/Day Years Used Date Smoking Tobacco: Never Assessed Sex and Gender Information Value Date Recorded Sex Assigned at Not on file Legal Sex Male 4:07 PM CDT Gender Identity Not on file Sexual Orientation Not on file documented as of this encounter Miscellaneous Notes * Cerner Conversion Note - Historical ProviderMD - 06/29/2019 12:12 AM NATURAL DEVELOPER ED Discharge Entered On: 06/29/2019 0:12 EST Performed On: 06/29/2019 0:12 EST by Layla Vick, butadiene converter utility operator Process Patient Disposition : AMA/Elope/LWBS Personal Belongings With Patient : Yes Patient Education Completed : No Teaching Evaluation : Needs further teaching IV Discontinued : Not applicable Nursing Documentation Completed : Yes Layla Vick RN - 06/29/2019 0:12 EST LWBS/Elopement/AMA Patient leaves after medical screening : Seen Asked to Sign AMA Form : Declines offer to sign form Provider Notified : Yes Provider Notified Time : 06/29/2019 23:50 EST AMA Assessment/Discussion Comment : see ED event note Layla Vick RN - 06/29/2019 0:12 EST Electronically signed by [facility] Conversion Public Health Representative Cerner at 09/05/2022 2:22 PM CDT documented in this encounter Plan of Treatment Not on file documented as of this encounter Visit Diagnoses Not on filedocumented in this encounter
--- OUTSIDE RECORDS SUMMARY | 2024-10-25 20:21 | XMS_ITS | Encounter Summary ---
Author Organization [employer] Address [address] [place] [address] Care Team Providers Care Flattening Press Operator Name Role Phone Unavailable Primary Care Provider Unavailabl e Encounter Details Date Type Department Care Team (Late st Contact Info) Description 09/06/2018 Transcribed Document [facility] [address] [place] [address] ProviderMelanie MD [facility] [address] Social History Tobacco Use Types Packs/Day Years Used Date Smoking Tobacco: Never Assessed Sex and Gender Information Value Date Recorded Sex Assigned at Not on file Legal Sex Male 4:07 PM CDT Gender Identity Not on file Sexual Orientation Not on file documented as of this encounter Miscellaneous Notes * Cerner Conversion Note - Historical ProviderMD - 09/06/2018 5:31 PM CDT DATE OF SERVICE: 09/06/2018 SLEEP MEDICINE FOLLOWUP HISTORY OF PRESENT ILLNESS: Mr. Vargas is seen in followup, last here on August 31, 2017. He has obstructive sleep apnea and has been using auto CPAP with the pressure range of 8-16 cm. He did get a new CPAP machine and likes it. He is using it an average of 8 hours and 11 minutes per night and respiratory disturbances are fully controlled at 3.9 per hour. He reports no sleepiness and scores 4/24 in the [place] Sleepiness Scale. He previously had noted insomnia and was prescribed desipramine and is using this with benefit. OTHER MEDICAL PROBLEMS: Include obesity, hypertension, hyperlipidemia, diabetes mellitus, chronic pain, gastroesophageal reflux, depression, and coronary artery disease. REVIEW OF SYSTEMS: All systems were reviewed and are otherwise negative. SOCIAL HISTORY: He does smoke. He does not drink alcoholic beverages or caffeine. CURRENT MEDICATIONS: 1. Lisinopril/hydrochlorothiazide. 2. Crestor. 3. Coreg. 4. Aspirin. 5. Vitamin D. 6. Melatonin. 7. Tradjenta. 8. Glimepiride. 9. Cedar. 10. Omeprazole. 11. Bupropion. 12. Janumet. 13. Farxiga. 14. Morphine. 15. Desipramine. 16. Cyclobenzaprine. 17. Isosorbide. PHYSICAL EXAMINATION: GENERAL: Mr. Vargas is a pleasant man, in no distress. VITAL SIGNS: Weight is stable at 243 pounds with a body mass index of 34.5. Blood pressure 128/86, pulse 69, respirations 14, oxygen saturation 93%. HEAD AND NECK: Shows normal-appearing nasal mucosa without obstruction or bleeding. The oral exam shows very large uvula, which is elongated. There is 2+ tonsillar enlargement. Overall Mallampati class IV appearance. The skin around the nose and mouth was intact. MENTAL STATUS: He was awake, alert, cooperative, well groomed. Memory appeared intact. ASSESSMENT: 1. Obstructive sleep apnea syndrome, doing well with CPAP. 2. Insomnia, doing well with desipramine. 3. Obesity. 4. Tobacco abuse. We have discussed the importance of quitting smoking. 5. Other medical problems as noted above. RECOMMENDATIONS: 1. Continue with current CPAP treatment, I have ordered new mask and supplies. 2. Continue with desipramine. 3. Continue efforts at weight loss. 4. He is strongly encouraged to quit smoking. 5. We will plan to follow up in one year and as needed. Yrn Calixto M.D. Dict: 09/06/2018 17:31:15 Trans: 09/07/2018 04:03:20 CC1: Yrn Calixto M.D. CC2: Joés Elizabeth MD Electronically signed by French Ortiz Conversion Podiatric Foot And Ankle Specialist Cerner at 09/05/2022 2:26 PM CDT documented in this encounter Plan of Treatment Not on file documented as of this encounter Visit Diagnoses Not on filedocumented in this encounter
--- OUTSIDE RECORDS SUMMARY | 2024-10-25 20:21 | XMS_ITS | Encounter Summary ---
Author Organization [employer] Address [address] [place] [address] Care Team Providers Care Transcripter Name Role Phone Unavailable Primary Care Provider Unavailabl e Encounter Details Date Type Department Care Team (Late st Contact Info) Description 04/08/2019 Transcribed Document [facility] [address] [place] [address] ProviderMelanie MD [facility] [place] [address] Social History Tobacco Use Types Packs/Day Years Used Date Smoking Tobacco: Never Assessed Sex and Gender Information Value Date Recorded Sex Assigned at Not on file Legal Sex Male 4:07 PM CDT Gender Identity Not on file Sexual Orientation Not on file documented as of this encounter Miscellaneous Notes * Cerner Conversion Note - Melanie ProviderMD - 04/08/2019 10:42 AM MINERAL MIXER ED Assessment Entered On: 04/08/2019 10:57 EST Performed On: 04/08/2019 10:51 EST by Renata Dia RN ED Quick Look Assessment Level of Consciousness : Alert, Awake Affect/Behavior : Appropriate, Calm, Cooperative Orientation : Oriented x 4 Skin Temperature : Warm Skin Description : Normal for ethnicity Renata Dia RN - 04/08/2019 10:51 EST ED General-Functional Assess Information Obtained From : Patient Preferred Communication Mode : Verbal Communication Barrier : None Primary Language : Icelandic Any Spiritual/Cultural Needs or Requests : No Currently in Unsafe Situation : No Renata Dia RN - 04/08/2019 10:51 EST Social Habits Smoking Status : 10 or more cigarettes (1/2 pack or more)/day in last 30 days Smokeless Tobacco Status : Never Desires Tobacco Cessation Medication : No Reason for No Tobacco Cessation Medication : ED/procedural patient only Desires Tobacco Cessation Calc : 1 Renata Dia RN - 04/08/2019 10:51 EST Social History (As Of: 04/08/2019 10:57:33 EST) Cardiovascular ASMT, ED Cardiovascular Assessment WDL : Renata George RN - 04/08/2019 10:51 EST Respiratory Respiratory Assessment WDL : Renata George RN - 04/08/2019 10:51 EST Genitourinary Assessment, ED Genitourinary Assessment WDL : YULISA with exceptions (Comment: c/o pain randall testicles, recent surgery to remove hydrocele, testicles swollen, bruised, edema noted surrounding penis; states difficulty urinating [Renata Dia RN - 04/08/2019 10:51 EST] ) Renata Dia RN - 04/08/2019 10:51 EST Neurologic ASMT, ED Neurologic Assessment WDL : Renata George RN - 04/08/2019 10:51 EST documented in this encounter Plan of Treatment Not on file documented as of this encounter Visit Diagnoses Not on filedocumented in this encounter
--- OUTSIDE RECORDS SUMMARY | 2024-10-25 20:21 | XMS_ITS | Encounter Summary ---
Author Organization [employer] Address [address] [place] [address] Care Team Providers Care Chemist Food Name Role Phone Unavailable Primary Care Provider Unavailabl e Encounter Details Date Type Department Care Team (Late st Contact Info) Description 04/08/2019 Transcribed Document [facility] [place] [facility] [address] [place] [address] ProviderMelanie MD [address] [place] [address] Social History Tobacco Use Types Packs/Day Years Used Date Smoking Tobacco: Never Assessed Sex and Gender Information Value Date Recorded Sex Assigned at Not on file Legal Sex Male 4:07 PM CDT Gender Identity Not on file Sexual Orientation Not on file documented as of this encounter Miscellaneous Notes * Cerner Conversion Note - Melanie Grider MD - 04/08/2019 3:10 PM 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 If you had special tests, such as EKG???s or X-rays, the interpretation of your tests given to you by the Emergency Department Physician is a preliminary report. Some fractures and illnesses fail to show up on preliminary tests. These will be reviewed again and we will call you if there are any new suggestions. If your symptoms continue notify your physician. After you leave, you should follow the instructions provided. What to do next Follow-Up Appointments Follow Up with JC LUQUE Md When Within 3 to 5 days Where: [address] [facility] [place] [address]- Business (1) Follow Up with SUKHJINDER SHRESTHA When Within 2 to 3 days Where: [address] [place] [address]- [phone] Business (1) Allergies No Known Allergies Immunizations This Visit No Immunizations Found Medications The home medications listed are only as accurate as the information you provided. Please continue taking all of your medications prescribed by your Primary Care Provider unless specifically told to change or discontinue the medication. Please direct any questions regarding your home medications to your Primary Care Provider. Take your medications faithfully. Do NOT skip [...] Please dispose of unused and medications per pharmacy guidance. Test Results Laboratory or Other Results This Visit (last charted value for your 04/08/2019 visit) Hematology 04/08/2019 11:06 AM WBC: 11.4 K/uL -- Normal range between ( 3.6 and 9.5 ) RBC: 4.54 Million/uL -- Normal range between ( 4.20 and 5.70 ) Hct: 37.2 % -- Normal range between ( 40.1 and 51.0 ) Hgb: 11.7 g/dL -- Normal range between ( 13.5 and 17.3 ) Platelet Count: 250 K/uL -- Normal range between ( 163 and 369 ) MCH: 25.8 pg -- Normal range between ( 25.6 and 32.2 ) MCHC: 31.5 Gram/dL -- Normal range between ( 32.2 and 36.5 ) MCV: 81.9 fL -- Normal range between ( 79.0 and 94.8 ) Slide Review: No Eos %: 4.0 % -- Normal range between ( 0.0 and 7.0 ) [place] #: 1.01 K/uL -- Normal range between ( 0.16 and 1.00 ) Eos #: 0.46 x10(3)/uL -- Normal range between ( 0.00 and 0.80 ) [place] %: 8.9 % -- Normal range between ( 3.0 and 9.0 ) Baso %: 0.6 % -- Normal range between ( 0.0 and 1.5 ) Baso #: 0.07 x10(3)/uL -- Normal range between ( 0.00 and 0.20 ) RDW: 18.2 % -- Normal range between ( 11.7 and 14.9 ) Neut %: 66.3 % -- Normal range between ( 34.0 and 71.0 ) Neut #: 7.52 K/uL -- Normal range between ( 1.56 and 6.13 ) Lymph %: 19.5 % -- Normal range between ( 19.3 and 53.1 ) Lymph #: 2.22 x10(3)/uL -- Normal range between ( 1.00 and 3.90 ) MPV: 12.1 fL -- Normal range between ( 9.4 and 12.4 ) IG#: 0.08 x10(3)/uL -- Normal range between ( 0.00 and 0.05 ) IG%: 0.70 % -- Normal range between ( 0.00 and 0.60 ) nRBC: 0.020 -- Normal range between ( 0.000 and 0.012 ) Urinalysis 04/08/2019 12:00 PM Urine Nitrite: Negative Urine Leukocyte Esterase: Negative Urine Appearance: Clear Urine Glucose Dipstick: >=1000 Urine Blood Dipstick: Negative Urine Type: U CleanCatch Urine Urobilinogen Dipstick: 0.2 EU/dL Urine Protein Dipstick: Negative Urine Color: Yellow Urine Ketones Dipstick: Negative Urine pH Dipstick: 6.0 -- Normal range between ( 6.0 and 8.0 ) Urine Bilirubin Dipstick: Negative Urine Specific [place]: >1.030 -- Normal range between ( 1.005 and 1.030 ) General Chemistry 04/08/2019 11:06 AM Creatinine Level: 0.80 mg/dL -- Normal range between ( 0.70 and 1.30 ) Sodium Level: 138 mmol/L -- Normal range between ( 136 and 146 ) Potassium Level: 3.0 mmol/L -- Normal range between ( 3.5 and 5.1 ) Chloride Level: 101 mmol/L -- Normal range between ( 102 and 112 ) Carbon Dioxide Level: 31 mmol/L -- Normal range between ( 21 and 32 ) Anion Gap: 9 -- Normal range between ( 9 and 20 ) Bun/Creatinine: 13.8 -- Normal range between ( 8.0 and 20.0 ) Calcium Level: 9.3 mg/dL -- Normal range between ( 8.4 and 10.1 ) eGFR : >60 mL/min/1.73m2 eGFR NonAfrican: >60 mL/min/1.73m2 Glucose Level: 166 mg/dL -- Normal range between ( 74 and 106 ) Magnesium Level: 1.7 mg/dL -- Normal range between ( 1.5 and 2.4 ) Blood Urea Nitrogen: 11 mg/dL -- Normal range between ( 7 and 22 ) Coagulation 04/08/2019 11:06 AM INR: 1.0 -- Normal range between ( 0.9 and 1.1 ) PTT: 29.6 Second(s) -- Normal range between ( 24.0 and 34.0 ) PT: 10.3 Second(s) -- Normal range between ( 9.6 and 12.0 ) Ultrasound 04/08/2019 12:08 PM US Scrotum and Contents: US Scrotum and Contents Education Materials Constipation, Adult Constipation is when a person has fewer bowel movements in a week than normal, has difficulty having a bowel movement, or has stools that are dry, hard, or larger than normal. Constipation may be caused by an underlying condition. It may become worse with age if a person takes certain medicines and does not take in enough fluids. Follow these instructions at home: Eating and drinking ??? Eat foods that have a lot of fiber, such as fresh fruits and vegetables, whole grains, and beans. ??? Limit foods that are high in fat, low in fiber, or overly processed, such as spanish fries, hamburgers, cookies, candies, and soda. ??? Drink enough fluid to keep your urine clear or pale yellow. General instructions ??? Exercise regularly or as told by your health care provider. ??? Go to the restroom when you have the urge to go. Do not hold it in. ??? Take [id number] and prescription medicines only as told by your health care provider. These include any fiber supplements. ??? Practice pelvic floor retraining exercises, such as deep breathing while relaxing the lower abdomen and pelvic floor relaxation during bowel movements. ??? Watch your condition for any changes. ??? Keep all follow-up visits as told by your health care provider. This is important. Contact a health care provider if: ??? You have pain that gets worse. ??? You have a fever. ??? You do not have a bowel movement after 4 days. ??? You vomit. ??? You are not hungry. ??? You lose weight. ??? You are bleeding from the anus. ??? You have thin, pencil-like stools. Get help right away if: ??? You have a fever and your symptoms suddenly get worse. ??? You leak stool or have blood in your stool. ??? Your abdomen is bloated. ??? You have severe pain in your abdomen. ??? You feel dizzy or you faint. This information is not intended to replace advice given to you by your health care provider. Make sure you discuss any questions you have with your health care provider. Document Released: 01/30/2005 Document Revised: 11/21/2016 Document Reviewed: 10/22/2016 [employer] Interactive Patient Education ?? 2019 [employer] Scrotal Hematoma Scrotal hematoma is a collection of blood inside the scrotum. The scrotum is the sac that contains the testicles, blood vessels, and structures that help deliver sperm and semen. A scrotal hematoma can develop after even a minor injury or a minor procedure such as a vasectomy. What are the causes? A hematoma occurs when blood leaks out of a damaged blood vessel. When blood leaks, it can collect and cause swelling. This can happen after an injury or surgery. What increases the risk? You are more likely to develop this condition if: ??? You have injured your scrotum. ??? You recently had a procedure in the scrotum, such as a vasectomy or vasectomy reversal. ??? You do not protect your scrotum during athletic activities. What are the signs or symptoms? Symptoms of this condition include: ??? Swelling. ??? Pain and discomfort. ??? Discoloration of the skin on the scrotum. Skin may turn red or purple. How is this diagnosed? This condition is diagnosed based on: ??? Your medical history. ??? Recent procedures you have had. ??? Recent injuries you have experienced. ??? A physical exam of the scrotum and surrounding area. ??? An ultrasound. ??? Urine tests. How is this treated? This condition may be treated by: ??? Taking NSAIDs, such as aspirin or ibuprofen, to help relieve pain. ??? Applying ice to the scrotum. ??? Resting. In some cases, surgery may be needed to prevent more problems with the scrotum or testicles. Surgery may also be used to check for other issues if treatment does not work. Follow these instructions at home: Activity ??? Rest as directed by your health care provider. Ask your health care provider what activities are safe for you. ??? Avoid sexual activity until your health care provider says that this is safe for you. ??? Avoid any activities that might put pressure on the scrotum and penis, such as bicycling or horseback riding. General instructions ??? Monitor your hematoma and scrotum for any changes. ??? If directed, put ice on the affected area: ? Put ice in a plastic bag. ? Place a towel between your skin and the bag. ? Leave the ice on for 20 minutes, 2???3 times a day. ??? Take ksdt-hzz-xwdkqos and prescription medicines only as told by your health care provider. ??? Use scrotal support, such as a jock strap or underwear with a supportive pouch. ??? Keep all follow-up visits as told by your health care provider. This is important. Contact a health care provider if: ??? You have cloudy or dark urine. ??? You are urinating more frequently than usual. ??? Your scrotum is red or sore. ??? You have a fever or chills. Get help right away if: ??? You develop pain that: ? Gets worse. ? Does not go away or get better with medicine. ??? You have scrotal swelling that gets worse or causes pain. ??? You have abdominal pain that gets worse. ??? You have problems urinating, such as: ? Difficulty starting urination. ? Painful urination. ? Slow flow of urine. ? Blood in your urine. ? Inability to urinate. ??? You have redness that spreads from your scrotum into your groin or thighs. Summary ??? Scrotal hematoma is a collection of blood inside the scrotum. The scrotum is the sac that contains the testicles, blood vessels, and structures that help deliver sperm and semen. ??? A scrotal hematoma can be caused by injury to the scrotum or by a procedure, such as a vasectomy. ??? Symptoms of this condition include pain and discomfort, swelling, and discoloration of the scrotum. ??? This condition may be treated with rest, icing, and talking NSAIDs, such as aspirin or ibuprofen. This information is not intended to replace advice given to you by your health care provider. Make sure you discuss any questions you have with your health care provider. Document Released: 08/03/2007 Document Revised: 08/11/2017 Document Reviewed: 08/11/2017 [employer] Interactive Patient Education ?? 2019 [employer] Emergency Awareness and Preventative Care STROKE is [...] Assistance with quitting is available by contacting 7-584-JAPSNOW. This is a free resource providing counseling, support, and referral. Or you may contact your personal physician. [place] Suicide Prevention Lifeline: The National Suicide Prevention [...] CPR? There are two easy steps: Call 9-1-1 if you see a teen or adult [...] and how to prevent infections, visit www.cdc.gov/sepsis. The examination and treatment you have received in the Emergency Department has been done to provide an appropriate evaluation and stabilizing treatment on an emergency basis only. Given the limited resources, it is not meant to be a substitute for complete medical care. The follow-up doctor you named will receive a copy of your records and all test reports. IT IS IMPORTANT THAT YOU SCHEDULE A FOLLOW-UP APPOINTMENT AND ARE RE-EVALUATED. You should report any new complaints, symptoms, or remaining problems at that time. IT IS IMPOSSIBLE FOR THE EMERGENCY DEPARTMENT TO RECOGNIZE AND TREAT ALL ELEMENTS OF INJURY OR ILLNESS IN A SINGLE VISIT. If you have been referred to a specialist physician, it means that we believe you may have a condition that requires the expertise of a specialist. These physicians work in partnership with the hospital and have agreed to see referred patients in their office for further evaluation. KEEP IN MIND THAT THE SPECIALIST HAS HIS/HER OWN OFFICE POLICIES WHICH MAY REQUIRE PROPER INSURANCE OR PAYMENT UP FRONT BEFORE THE SPECIALIST WILL SEE YOU. It is your responsibility to call the specialist physician to make an appointment. We do not have the ability to refer patients to specialists/physicians that work with specific insurance companies. Please be advised that all financial charges or billing practices are determined by that practice, not the hospital. If your insurance company requires that you see a specialist from their approved list, it is your responsibility to contact your insurance company to make those arrangements. It is also your responsibility to follow any other requirements of your insurance company necessary to obtain coverage for claims submitted. We will bill your insurance; however, you are responsible today for any co-pay amounts. You will receive a separate bill for any services you may have received including: emergency, radiology, or pathology physicians. Patient Name:TERRI MOREL I have received this information and was given the opportunity to ask questions. 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 Date: Electronically signed by Interface, [facility] Conversion Reverberatory Skimmer Olivianer at 09/05/2022 2:15 PM CDT documented in this encounter Plan of Treatment Not on file documented as of this encounter Visit Diagnoses Not on filedocumented in this encounter
--- OUTSIDE RECORDS SUMMARY | 2024-10-25 20:21 | XMS_ITS | Clinical Summary ---
Author Organization [employer] Address [address] [place] [address] Care Team Providers Care Traffic Representative Name Role Phone Unavailable Primary Care Provider [...]
--- OUTSIDE RECORDS SUMMARY | 2024-10-25 20:21 | XMS_ITS | Encounter Summary ---
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 Phone Unavailable Primary Care Provider Unavailabl e Encounter Details Date Type Department Care Team (Late st Contact Info) Description 04/08/2019 Transcribed Document [facility] [place] [address] [place] [address] ProviderMelanie MD [facility] [place] [address] Social History Tobacco Use Types Packs/Day Years Used Date Smoking Tobacco: Never Assessed Sex and Gender Information Value Date Recorded Sex Assigned at Not on file Legal Sex Male 4:07 PM CDT Gender Identity Not on file Sexual Orientation Not on file documented as of this encounter Miscellaneous Notes * Cerner Conversion Note - Historical ProviderMD - 04/08/2019 3:10 PM 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 ED Discharge Entered On: 04/08/2019 15:10 EST Performed On: 04/08/2019 15:10 EST by KEN GAY RN Discharge Process Patient Disposition : Discharge Personal Belongings With Patient : Yes Patient Education Completed : Yes Teaching Evaluation : Verbalizes understanding IV Discontinued : Yes Nursing Documentation Completed : Yes KEN GAY RN - 04/08/2019 15:10 EST ED Discharge Discharge To : Home with ambulatory/outpatient follow-up Mode Of Departure : Ambulatory Discharge Instructions Reviewed With, Opportunity For Questions Given : Patient KEN GAY RN - 04/08/2019 15:10 EST documented in this encounter Plan of Treatment Not on file documented as of this encounter Visit Diagnoses Not on filedocumented in this encounter
[2024-10-25] MEDS: ONDANSETRON 4MG/2ML VIAL 4 MG IV (20:27)
--- NOTE | 2024-10-25 20:28 | CT_ITS ---
PROCEDURE INFORMATION: Exam: CT Head Without Contrast Exam date and time: 10/25/2024 8:42 PM Age: 64 years old Clinical indication: Injury or trauma; Fall; Additional info: Trauma, critical injury suspected TECHNIQUE: Imaging protocol: Computed tomography of the head without contrast. Radiation optimization: All CT scans at this facility use at least one of these dose optimization techniques: automated exposure control; mA and/or kV adjustment per patient size (includes targeted exams where dose is matched to clinical indication); or iterative reconstruction. COMPARISON: CT VENOGRAM HEAD 03/28/2024 09:54 FINDINGS: Brain: Right temporal lobe encephalomalacia. Cerebral ventricles: No ventriculomegaly. Paranasal sinuses: Mild mucosal thickening in the paranasal sinuses. Mastoid air cells: Status post right mastoidectomy. Orbital cavities: Chronic appearing right orbital medial wall fracture. Bones: Unremarkable. No acute fracture. Soft tissues: Unremarkable. IMPRESSION: No acute intracranial findings.
--- NOTE | 2024-10-25 20:28 | CT_ITS ---
PROCEDURE INFORMATION: Exam: CT Lumbar Spine Without Contrast Exam date and time: 10/25/2024 8:49 PM Age: 64 years old Clinical indication: Injury or trauma; Fall; Additional info: Trauma, critical injury suspected TECHNIQUE: Imaging protocol: Computed tomography of the lumbar spine without contrast. Radiation optimization: All CT scans at this facility use at least one of these dose optimization techniques: automated exposure control; mA and/or kV adjustment per patient size (includes targeted exams where dose is matched to clinical indication); or iterative reconstruction. COMPARISON: CT THORACIC SPINE WO CON 10/25/2024 8:46 PM FINDINGS: Bones/joints: Degenerative changes most prominent at L2-L3 with disc space narrowing and vacuum disc phenomena. No acute fracture. Normal alignment. No significant disc bulge or herniation. No severe spinal canal stenosis. No significant neural foraminal narrowing. Soft tissues: Unremarkable. IMPRESSION: No acute lumbar spine fracture. Degenerative disc disease as described most prominent at L2-L3.
--- NOTE | 2024-10-25 20:28 | CT_ITS ---
PROCEDURE INFORMATION: Exam: CTA Chest With Contrast Exam date and time: 10/25/2024 8:56 PM Age: 64 years old Clinical indication: Injury or trauma; Fall; Additional info: Trauma, critical injury suspected TECHNIQUE: Imaging protocol: Computed tomographic angiography of the chest with contrast. Exam focused on the arteries. 3D rendering (Not supervised by radiologist): MIP and/or 3D reconstructed images were created by the technologist. Radiation optimization: All CT scans at this facility use at least one of these dose optimization techniques: automated exposure control; mA and/or kV adjustment per patient size (includes targeted exams where dose is matched to clinical indication); or iterative reconstruction. Contrast material: ISOVUE; Contrast volume: 80 ml; Contrast route: INTRAVENOUS (IV); COMPARISON: CR XR CHEST PORTABLE 10/25/2024 8:25 PM FINDINGS: Pulmonary arteries: Normal. No pulmonary emboli. Aorta: Unremarkable. No aortic aneurysm. No aortic dissection. Lungs: Clear. No consolidation. No masses. Pleural spaces: No pneumothorax. No pleural effusion. Heart: Normal heart size. Pacemaker is present. Coronary arteries: Advanced 3-vessel coronary artery atherosclerotic disease. Lymph nodes: Unremarkable. No enlarged lymph nodes. Bones/joints: Status post sternotomy. Advanced degenerative spondylosis. Normal alignment. Soft tissues: Unremarkable. IMPRESSION: 1. No acute findings. 2. Advanced three-vessel coronary artery atherosclerotic disease.
--- NOTE | 2024-10-25 20:28 | CT_ITS ---
PROCEDURE INFORMATION: Exam: CTA Neck With Contrast Exam date and time: 10/25/2024 8:53 PM Age: 64 years old Clinical indication: Injury or trauma; Fall; Additional info: Trauma, critical injury suspected TECHNIQUE: Imaging protocol: Computed tomographic angiography of the neck with contrast. Exam focused on the cervical segments of the vasculature. 3D rendering (Not supervised by radiologist): MIP and/or 3D reconstructed images were created by the technologist. Radiation optimization: All CT scans at this facility use at least one of these dose optimization techniques: automated exposure control; mA and/or kV adjustment per patient size (includes targeted exams where dose is matched to clinical indication); or iterative reconstruction. Contrast material: ISOVUE; Contrast volume: 80 ml; Contrast route: INTRAVENOUS (IV); COMPARISON: CT ANGIO NECK 06/03/2023 19:25 FINDINGS: Right common carotid artery: Moderate atherosclerotic changes of the right carotid bifurcation with 0% stenosis of the internal carotid artery per NASCET criteria. Right internal carotid artery: No stenosis of the extracranial segment. No dissection or occlusion. Right external carotid artery: No occlusion or stenosis of the origin. Left common carotid artery: Moderate atherosclerotic changes of the left carotid bifurcation with 0% stenosis of the internal carotid artery per NASCET criteria. Mild stenosis of the left common carotid artery related to mixed plaque. Left internal carotid artery: No stenosis of the extracranial segment. No dissection or occlusion. Left external carotid artery: No occlusion or stenosis of the origin. Right vertebral artery: Moderate stenosis of the proximal right vertebral artery. Moderate stenosis of the right vertebral artery at C6. 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 Left vertebral artery: [id number] stenosis of the left vertebral arterial origin. Pulmonary arteries: Enlarged pulmonary arteries likely represent chronic pulmonary arterial hypertension. Soft tissues: Normal. No significant soft tissue swelling. Bones/joints: Status post median sternotomy and coronary artery bypass. Multilevel degenerative changes of the cervical spine producing multiple levels of mild and moderate spinal canal stenosis. Old left rib fractures. IMPRESSION: No acute carotid or vertebral arterial injury. REFERENCES: NASCET CRITERIA. The degree of stenosis in the cervical segment of the internal carotid artery is based on NASCET criteria. Normal is no stenosis. Mild is less than 50% stenosis. Moderate is 50-69% stenosis. Severe is 70% to 99% stenosis. Total occlusion is no detectable patent lumen.
--- NOTE | 2024-10-25 20:28 | CT_ITS ---
PROCEDURE INFORMATION: Exam: CT Cervical Spine Without Contrast Exam date and time: 10/25/2024 8:44 PM Age: 64 years old Clinical indication: Injury or trauma; Fall; Additional info: Trauma, critical injury suspected TECHNIQUE: Imaging protocol: Computed tomography of the cervical spine without contrast. Radiation optimization: All CT scans at this facility use at least one of these dose optimization techniques: automated exposure control; mA and/or kV adjustment per patient size (includes targeted exams where dose is matched to clinical indication); or iterative reconstruction. COMPARISON: CT ANGIO NECK 06/03/2023 19:25 FINDINGS: Bones: Mild bilateral neural foraminal stenosis at C5-C7. Straightening of the curvature of the cervical spine is likely positional. Multilevel degenerative changes of the cervical spine producing multiple levels of mild and moderate spinal canal stenosis. Lungs: Lung apices are normal. Soft tissues: Unremarkable. IMPRESSION: No acute fracture or malalignment of the cervical spine.
--- NOTE | 2024-10-25 20:28 | CT_ITS ---
PROCEDURE INFORMATION: Exam: CTA Abdomen and Pelvis With Contrast Exam date and time: 10/25/2024 8:56 PM Age: 64 years old Clinical indication: Injury or trauma; Fall; Additional info: Trauma, critical injury suspected TECHNIQUE: Imaging protocol: Computed tomographic angiography of the abdomen and pelvis with contrast. Exam focused on the arteries. 3D rendering (Not supervised by radiologist): MIP and/or 3D reconstructed images were created by the technologist. Radiation optimization: All CT scans at this facility use at least one of these dose optimization techniques: automated exposure control; mA and/or kV adjustment per patient size (includes targeted exams where dose is matched to clinical indication); or iterative reconstruction. Contrast material: ISOVUE; Contrast volume: 80 ml; Contrast route: INTRAVENOUS (IV); COMPARISON: CT ANGIO ABDOMEN PELVIS 06/25/2023 6:48 PM FINDINGS: Aorta: Advanced aortoiliac and visceral artery atherosclerotic disease. No aortic aneurysm or dissection. Celiac trunk and mesenteric arteries: Mild celiac artery origin stenosis. Distal celiac artery branches are patent. SMA is widely patent. Nonocclusive ROYCE origin stenosis. Renal arteries: Nonocclusive bilateral renal artery stenoses. Right iliac arteries: No occlusion or significant stenosis. Right femoral/popliteal arteries: There is near occlusive stenosis of the right superficial femoral artery. Left iliac arteries: No occlusion or significant stenosis. Liver: No mass. Gallbladder and biliary ducts: Status post cholecystectomy. No biliary duct dilation. Pancreas: Unremarkable. No mass. No ductal dilation. Spleen: Unremarkable. No splenomegaly. Adrenal glands: 2.0 cm left adrenal mass with internal attenuation of -35 Hounsfield units consistent with an adenoma. Normal right adrenal gland. Kidneys and ureters: Unremarkable. No solid mass. No hydronephrosis. Stomach and bowel: Unremarkable. No obstruction. No mucosal thickening. Appendix: No evidence of appendicitis. Intraperitoneal space: Unremarkable. No free air. No significant fluid collection. Lymph nodes: Unremarkable. No enlarged lymph nodes. Urinary bladder: Unremarkable. No mass. Reproductive: Unremarkable as visualized. Bones/joints: Advanced degenerative changes in the spine and pelvis. Multilevel lumbar spinal canal stenosis. Soft tissues: Unremarkable. IMPRESSION: 1. No acute findings. 2. Advanced degenerative spondylosis causing multilevel lumbar spinal canal stenosis. 3. Near occlusive stenosis of the superficial femoral artery. 4. Aortoiliac and visceral artery atherosclerotic disease as above. 5. Stable left adrenal adenoma.
--- NOTE | 2024-10-25 20:28 | CT_ITS ---
PROCEDURE INFORMATION: Exam: CT Thoracic Spine Without Contrast Exam date and time: 10/25/2024 8:46 PM Age: 64 years old Clinical indication: Injury or trauma; Fall; Additional info: Trauma, critical injury suspected TECHNIQUE: Imaging protocol: Computed tomography of the thoracic spine without contrast. Radiation optimization: All CT scans at this facility use at least one of these dose optimization techniques: automated exposure control; mA and/or kV adjustment per patient size (includes targeted exams where dose is matched to clinical indication); or iterative reconstruction. COMPARISON: CT CERVICAL SPINE WO CON 10/25/2024 8:44 PM FINDINGS: Bones/joints: No acute fracture. Normal alignment. No significant disc bulge or herniation. No severe spinal canal stenosis. No significant neural foraminal narrowing. Soft tissues: Unremarkable. IMPRESSION: No acute thoracic spine fracture.
--- NOTE | 2024-10-25 20:28 | CT_ITS ---
PROCEDURE INFORMATION: Exam: CTA Head With Contrast, Arteriography Exam date and time: 10/25/2024 8:53 PM Age: 64 years old Clinical indication: Injury or trauma; Fall; Additional info: Trauma, critical injury suspected TECHNIQUE: Imaging protocol: Computed tomographic angiography of the head with contrast. Exam focused on the arteries. 3D rendering (Not supervised by radiologist): MIP and/or 3D reconstructed images were created by the technologist. Radiation optimization: All CT scans at this facility use at least one of these dose optimization techniques: automated exposure control; mA and/or kV adjustment per patient size (includes targeted exams where dose is matched to clinical indication); or iterative reconstruction. Contrast material: ISOVUE; Contrast volume: 80 ml; Contrast route: INTRAVENOUS (IV); COMPARISON: CT ANGIO HEAD 06/03/2023 19:25 FINDINGS: ANTERIOR CIRCULATION: Right internal carotid artery: Moderate stenosis of supraclinoid right ICA. Right middle cerebral artery: No occlusion or significant stenosis. No aneurysm. Right anterior cerebral artery: No occlusion or significant stenosis. No aneurysm. Left internal carotid artery: Intracranial segment is patent with no significant stenosis. No aneurysm. Left middle cerebral artery: Mild stenosis of the proximal left M1 segment. Left anterior cerebral artery: No occlusion or significant stenosis. No aneurysm. 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 Left vertebral artery: Severe atherosclerotic disease of the intradural portion of the left vertebral artery with stenosis that are at least moderate in severity, possibly severe. Basilar artery: Severe atherosclerotic disease of basilar artery with moderate distal stenosis. Right posterior cerebral artery: Mild stenosis of the proximal right [employer]. Left posterior cerebral artery: No occlusion or significant stenosis. No aneurysm. Brain: Right temporal lobe encephalomalacia. Cerebral ventricles: No ventriculomegaly. Bones/joints: Unremarkable. No acute fracture. Soft tissues: Unremarkable. IMPRESSION: No acute intracranial arterial abnormality. Relatively severe widespread intracranial atherosclerotic disease as detailed above.
--- NOTE | 2024-10-25 20:29 | PC.NURSE ---
pt's blood sugar was 531
--- NOTE | 2024-10-25 20:33 | HMH.EDGENADL ---
Discharge Plan Disposition Patient Disposition: Home, Self-Care Condition: Good Prescriptions Prescriptions: No Action azelastine 137 mcg (0.1 %) spray,non-aerosol 2 spray intranasal BID Qty: 30 2RF Rx Instructions: administer into each nostril metformin 500 mg tablet extended release 24 hr 500 mg PO BID atorvastatin 40 mg tablet See Rx Instructions .ROUTE .COMPLEX Qty: 90 3RF Dose Instruction: TAKE 1 TABLET BY MOUTH ONCE DAILY Rx Instructions: TAKE 1 TABLET BY MOUTH ONCE DAILY bumetanide 2 mg tablet 2 mg PO BID Qty: 60 5RF carvedilol 12.5 mg tablet 12.5 mg PO BID Qty: 180 3RF clopidogrel 75 mg tablet 75 mg PO DAILY Qty: 90 0RF Entresto 97-103 mg tablet See Rx Instructions .ROUTE .COMPLEX Qty: 180 3RF Dose Instruction: TAKE ONE TABLET BY MOUTH TWICE DAILY Rx Instructions: TAKE ONE TABLET BY MOUTH TWICE DAILY spironolactone 50 mg tablet See Rx Instructions .ROUTE .COMPLEX Qty: 90 5RF Dose Instruction: TAKE ONE TABLET BY MOUTH EVERY DAY Rx Instructions: TAKE ONE TABLET BY MOUTH EVERY DAY oxycodone-acetaminophen 10-325 mg tablet 1 tab PO insulin glargine 100 unit/mL (3 mL) insulin pen 10 unit SQ HS Qty: 3 2RF (DME) OneTouch Ultra Test Strip See Rx Instructions .Route Qty: 50 8RF Rx Instructions: test sugar qid insulin regular human 100 unit/mL (3 mL) insulin pen 1 sliding scale dose SQ USEASDIRECTD Qty: 15 2RF Rx Instructions: give 10 U subq for before meal up q 4-6 hours if fingerstick glucose reading is above 300 Ozempic 0.25 mg or 0.5 mg (2 mg/3 mL) pen injector 0.25 mg SQ WEEKLY Qty: 3 0RF Rx Instructions: for 4 weeks (DME) OneTouch Ultra Test Strip See Rx Instructions .Route Qty: 50 2RF Rx Instructions: daily testing varenicline tartrate 1 mg tablet See Rx Instructions .ROUTE .COMPLEX Qty: 56 3RF Dose Instruction: TAKE 1 TABLET BY MOUTH TWICE DAILY Rx Instructions: TAKE 1 TABLET BY MOUTH TWICE DAILY omeprazole 40 mg capsule,delayed release(DR/EC) See Rx Instructions .ROUTE .COMPLEX Qty: 180 1RF Dose Instruction: TAKE 1 CAPSULE BY MOUTH TWICE DAILY - SWALLOW WHOLE; DO NOT CRUSH, CHEW, DISSOLVE, CUT, BREAK Rx Instructions: TAKE 1 CAPSULE BY MOUTH TWICE DAILY - SWALLOW WHOLE; DO NOT CRUSH, CHEW, DISSOLVE, CUT, BREAK duloxetine 60 mg capsule,delayed release(DR/EC) See Rx Instructions .ROUTE .COMPLEX Qty: 90 1RF Dose Instruction: TAKE 1 CAPSULE BY MOUTH ONCE DAILY Rx Instructions: TAKE 1 CAPSULE BY MOUTH ONCE DAILY Jardiance 25 mg tablet See Rx Instructions .ROUTE .COMPLEX Qty: 90 3RF Dose Instruction: TAKE 1 TABLET BY MOUTH ONCE DAILY Rx Instructions: TAKE 1 TABLET BY MOUTH ONCE DAILY (DME) pen needle, diabetic [Comfort Touch Pen Needle] 31 gauge x 5/32 needle See Rx Instructions .Route Qty: 100 6RF Rx Instructions: As directed, ONCE DAILY glimepiride 4 mg tablet See Rx Instructions .ROUTE .COMPLEX Qty: 90 0RF Dose Instruction: TAKE 1 TABLET BY MOUTH ONCE DAILY Rx Instructions: TAKE 1 TABLET BY MOUTH ONCE DAILY lidocaine 5 % adhesive patch,medicated 1 patch topical DAILY Qty: 15 0RF Rx Instructions: Remove patch after 12 hours and leave off for 12 hours before using a new one magnesium 500 mg Tablet 500 mg PO DAILY aspirin 325 mg Tablet 325 mg PO DAILY potassium 99 mg Tablet 99 mg PO BID nitroglycerin 0.4 mg Tablet, Sublingual See Rx Instructions .ROUTE .COMPLEX Rx Instructions: 0.4 mg sublingually gabapentin 600 mg tablet 600 mg PO TID Referrals Follow up/Referrals: Claudy Kim MD [Primary Care Provider, Family Practice] - See instructions Activity Restrictions/Add. Instructions Additional Instructions/Restrictions: Stay well-hydrated, follow-up with your primary care doctor in the next day or 2 regarding your low sodium and your high blood sugar. 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 If any of your symptoms recur such as lightheadedness or worsening pain despite taking Tylenol at home, you should return to the emergency department at once. Clinical Impressions Clinical Impression: Fall, CHI (closed head injury), Acute hyponatremia, Hyperglycemia Print Language Print Language: Macedonian Discharge ED Provider: Bubba Romano Adult [facility] General Chief complaint: Fall Stated complaint: AO 10/25/24 1200 Fell hit head,pressure in head Time Seen by Provider: 10/25/24 20:28 Mode of Arrival: Wheelchair Limitations: No Limitations Description of Symptoms (Recalled from ER Triage Doc. by RN): pt reports he stepped on to a water bottle and fell backwards, striking the back of his head onto a wood floor. pt reports he does take plavix History of Present Illness HPI narrative: Patient is a 64-year-old male with history of coronary disease s/p CABG, hypertension, hyperlipidemia. He is on aspirin and Plavix. He presents today as a trauma alert due to hypotension and head injury on antiplatelet. He around noon and was walking and mechanically tripped over a water bottle and struck his head. Was able to get up and did not have much in the way of any complaints until immediately prior to arrival when he began to feel dizzy and lightheaded. He was having palpitations without chest pain. He does report some neck pain from after his fall, but denies any numbness weakness tingling. Related Data Home Medications ?Medication ?Instructions ?Recorded ?Confirmed gabapentin 600 mg tablet 600 mg PO TID 09/03/23 10/07/24 aspirin 325 mg tablet 325 mg PO DAILY 02/17/24 10/07/24 magnesium 500 mg tablet 500 mg PO DAILY 02/17/24 10/07/24 nitroglycerin 0.4 mg sublingual See Rx Instructions .Route .COMPLEX 02/17/24 10/07/24 tablet potassium 99 mg tablet 99 mg PO BID 02/17/24 10/07/24 oxycodone-acetaminophen 10 mg-325 1 tab PO 02/24/24 10/07/24 mg tablet metformin 500 mg tablet,extended 500 mg PO BID 07/13/24 10/07/24 release 24 hr Previous Rx's ?Medication ?Instructions ?Recorded blood sugar diagnostic (OneTouch #50 ea 11/10/23 Ultra Test strips) lidocaine 5 % topical patch 1 patch topical DAILY #15 ea 12/30/23 azelastine 137 mcg (0.1 %) nasal 2 spray intranasal BID #30 mL 05/02/24 spray atorvastatin 40 mg tablet See Rx Instructions .Route 07/13/24 .COMPLEX #90 ea bumetanide 2 mg tablet 2 mg PO BID #60 tabs 07/13/24 carvedilol 12.5 mg tablet 12.5 mg PO BID #180 tabs 07/13/24 clopidogrel 75 mg tablet 75 mg PO DAILY #90 tabs 07/13/24 sacubitril 97 mg-valsartan 103 mg See Rx Instructions .Route 07/13/24 tablet (Entresto) .COMPLEX #180 tabs spironolactone 50 mg tablet See Rx Instructions .Route 07/13/24 .COMPLEX #90 tabs varenicline tartrate 1 mg tablet See Rx Instructions .Route 07/25/24 .COMPLEX #56 ea duloxetine 60 mg capsule,delayed See Rx Instructions .Route 08/22/24 release .COMPLEX #90 caps omeprazole 40 mg capsule,delayed See Rx Instructions .Route 08/22/24 release .COMPLEX #180 caps empagliflozin 25 mg tablet See Rx Instructions .Route 08/30/24 (Jardiance) .COMPLEX #90 tabs insulin glargine 100 unit/mL (3 10 unit (0.1 mL) SQ HS #3 mL 09/02/24 mL) subcutaneous pen pen needle, diabetic 31 gauge x #100 ea 09/02/24 5/32 (Comfort Touch Pen Needle) glimepiride 4 mg tablet See Rx Instructions .Route 09/19/24 .COMPLEX #90 tabs blood sugar diagnostic (OneTouch #50 ea 10/07/24 Ultra Test strips) insulin regular human 100 unit/mL 1 sliding scale dose SQ 10/07/24 (3 mL) subcutaneous pen USEASDIRECTD #15 mL semaglutide 0.25 mg or 0.5 mg (2 0.25 mg (0.368 mL) SQ WEEKLY #3 mL 10/07/24 mg/3 mL) subcutaneous pen injector (Ozempic) Allergies Allergy/AdvReac Type Severity Reaction Status Date / Time dobutamine AdvReac Unknown Hypertensio Verified 10/07/24 08:48 n PFSH [facility] Disclaimer: The information contained in this section may have been updated after the patient was seen, as this information can be updated by other users. Medical History Ear drainage right Generalized headaches Ear pain, right Pneumonia Cardiogenic shock On mechanically assisted ventilation Acute respiratory failure with hypoxia Abdominal pain Constipation Deviated nasal septum Hypertrophy of inferior nasal turbinate Sinusitis Mixed restrictive and obstructive lung disease Cardiac pacemaker in situ Pulmonary emphysema Smoking greater than 30 pack years Dyspnea on exertion Lung mass Nodule of right lung Right maxillary sinusitis HFrEF (heart failure with reduced ejection fraction) Impacted cerumen of right ear Dizziness Abnormal electrocardiogram [ECG] [EKG] ANNA (obstructive sleep apnea) Hyperlipidemia Depression Anxiety Gastroesophageal reflux disease Insomnia Coronary artery disease History of TIA (transient ischemic attack) Hypertension Diabetes mellitus Epididymitis Palpitations Opiate withdrawal TIA (transient ischemic attack) Surgical History History of removal of testicle History of hernia surgery History of cholecystectomy History of right mastoidectomy History of coronary artery bypass graft Family History Other Diabetes Social History (Updated 10/07/24 @ 08:51 by MARYSOL Guaman) Smoking Status: Current every day smoker tobacco type: cigarettes packs per day: 1 alcohol intake: never substance use type: denies use current occupational status: disabled Travel in the last 8 weeks?: None household members: spouse and children housing: house Have you lived/traveled outside US in past 30 days?: No Contact w/someone who lives/traveled outside US past 30 days?: No Exposure to someone with infectious disease in past 14 days?: No Do you have a fever (greater than 100.4 F or 38 C)?: No Have you tested positive for COVID-19?: No Exposed to someone with COVID-19 in past 14 days?: No Do you have a sore throat?: No Do you have a cough?: No Do you have any weakness?: No Do you have any diarrhea?: No Are you experiencing any unusual bleeding?: No Do you have any muscle aches/pain?: No Do you have any abdominal pain?: No Are you experiencing loss of taste or smell?: No Other Medical History Have you received the Flu Vaccine for this season: No Have you received the Pneumonia Vaccine: Yes ROS Obtained: Yes All systems reviewed & no additional complaints except as documented Physical Exam General General appearance: alert and in no apparent distress Head Head exam: atraumatic and normocephalic Eye Eye exam: Present PERRL and EOMI ENT ENT exam: Present normal oropharynx Neck Neck exam: Present full ROM, trachea midline and tenderness (midline c spine) Chest Chest inspection: Present symmetric chest wall rise Respiratory Respiratory exam: Present normal lung sounds bilaterally; Absent stridor Cardiovascular Cardiovascular exam: Present regular rate and normal rhythm Abdominal Exam Abdominal exam: Present soft; Absent distention or tenderness Extremities Exam Extremities exam: Present full ROM Neurological Exam Neurological exam: Present alert and oriented X3 Psychiatric Psychiatric exam: Present normal mood Skin Skin exam: Present warm and dry Medical Decision Making Medical Records Screening: Per USPSTF and CDC recommendations, given the prevalence of disease in our region, it is our hospital?s policy to screen for HIV and viral Hepatitis for all patients aged 18 and over and those with ongoing risk factors. George Inquiry Pt receiving controlled substance: No Vital Signs: 10/25/24 20:09 10/25/24 20:15 10/25/24 20:24 Temperature 97.2 F L 97.9 F 98.1 F Temperature Source Oral Oral Oral Pulse Rate Pulse Rate [Right] 77 76 72 Respiratory Rate 18 20 14 Blood Pressure Blood Pressure [Right Arm] 88/50 L 82/38 L 82/38 L Blood Pressure Mean Blood Pressure Mean [Right Arm] 62 52 52 Blood Pressure Source [Right Arm] Manual Cuff/ Auscultation Blood Pressure Position [Right Arm] Supine 02 Sat by Pulse Oximetry 100 96 95 Oxygen Delivery Method Room Air Room Air Room Air 10/25/24 21:04 10/25/24 21:23 10/25/24 21:30 Temperature Temperature Source Pulse Rate 70 67 68 Pulse Rate [Right] Respiratory Rate 16 12 12 Blood Pressure 102/62 L 104/60 L 113/69 Blood Pressure [Right Arm] Blood Pressure Mean 75 Blood Pressure Mean [Right Arm] Blood Pressure Source [Right Arm] Blood Pressure Position [Right Arm] 02 Sat by Pulse Oximetry 95 96 94 L Oxygen Delivery Method 10/25/24 21:45 10/25/24 22:00 10/25/24 22:13 Temperature Temperature Source Pulse Rate 69 65 Pulse Rate [Right] Respiratory Rate 10 L 11 L 12 Blood Pressure 110/72 101/62 L 116/63 Blood Pressure [Right Arm] Blood Pressure Mean Blood Pressure Mean [Right Arm] Blood Pressure Source [Right Arm] Blood Pressure Position [Right Arm] 02 Sat by Pulse Oximetry 94 L 96 Oxygen Delivery Method 10/25/24 22:16 10/25/24 22:30 Temperature Temperature Source Pulse Rate 63 Pulse Rate [Right] Respiratory Rate 19 13 Blood Pressure 113/67 113/65 Blood Pressure [Right Arm] Blood Pressure Mean Blood Pressure Mean [Right Arm] Blood Pressure Source [Right Arm] Blood Pressure Position [Right Arm] 02 Sat by Pulse Oximetry 95 Oxygen Delivery Method Lab Data Lab Results 10/25/24 20:22: WBC 9.1, RBC 4.96, Hgb 14.3, Hct 43.5, MCV 87.7, MCH 28.8, MCHC 32.9, RDW 14.6, Plt Count 178, MPV 12.8 H, Neut % (Auto) 61.4, Lymph % (Auto) 26.5, Brule % (Auto) 9.3, Eos % (Auto) 1.3, Baso % (Auto) 0.5, Neut # (Auto) 5.6, Lymph # (Auto) 2.4, Brule # (Auto) 0.9, Eos # (Auto) 0.1, Baso # (Auto) 0.1, Sodium 124 L, Potassium 4.3, Chloride 90 L, Carbon Dioxide 25, Anion Gap 13.3, BUN 39 H, Creatinine 1.30 H, Estimated Creat Clear 82, Estimated GFR 56 L, Est GFR ( Amer) 67, Glucose 555 H*, Calcium 8.8, Magnesium 1.6, Total Bilirubin 0.6, AST 23, ALT 21, Alkaline Phosphatase 158 H, Troponin I 0.02, Total Protein 7.0, Albumin 4.1, Globulin 2.9, Albumin/Globulin Ratio 1.4, Lipase 54, Acetone Level None detected 10/25/24 20:38: Lactate 1.9 10/25/24 22:20: Urine Color Yellow, Urine Appearance Clear, Urine pH 6.0, Ur Specific [place] <= 1.005, Urine Protein Negative, Urine Glucose (UA) 3+, Urine Ketones Negative, Urine Blood Negative, Urine Nitrate Negative, Urine Bilirubin Negative, Urine Urobilinogen 0.2, Ur Leukocyte Esterase Negative 10/25/24 20:22 10/25/24 20:22 Orders (Tests/Meds): ED MEDICATIONS Discontinued Medications Generic Name Dose Route Start Last Admin Trade Name Freq PRN Reason Stop Dose Admin Acetaminophen 1,000 mg 10/25/24 20:32 10/25/24 20:35 Acetaminophen 1,000mg/100ml Vial IV 10/25/24 20:33 1,000 mg ONCE ONE Administration Fentanyl Citrate 50 mcg 10/25/24 21:06 10/25/24 21:17 Fentanyl 100mcg/2ml Vial IV 10/25/24 21:07 50 mcg ONCE ONE Administration Lactated Ringer's 500 mls @ 999 mls/hr 10/25/24 20:34 10/25/24 21:17 Lactated Ringer's 1000 Ml Bag IV 10/25/24 21:04 999 mls/hr .Q31M ONE Administration Lactated Ringer's 1,000 mls @ 999 mls/hr 10/25/24 20:34 10/25/24 20:35 Lactated Ringer's 1000 Ml Bag IV 10/25/24 21:34 999 mls/hr .Q1H1M ONE Administration Iopamidol 160 ml 10/25/24 21:03 10/25/24 21:05 Iopamidol-370 (76%);100ml Bottle IV 10/25/24 21:04 160 ml ONCE ONE Administration Ondansetron HCl 4 mg 10/25/24 20:22 10/25/24 20:27 Ondansetron 4mg/2ml Vial IV 10/25/24 20:23 4 mg ONCE ONE Administration Sodium Chloride 10 ml 10/25/24 21:03 10/25/24 21:05 Sodium Chloride 0.9% 10ml Syr (Rad Only) IV 10/25/24 21:04 10 ml ONCE ONE Administration Sodium Chloride 100 ml 10/25/24 21:03 10/25/24 21:05 0.9 % Sodium Chloride 50 Ml Vial IV 10/25/24 21:04 100 ml ONCE ONE Administration ORDERS Category Date Time Status CT angio abd/pel - TRAUMA Stat Cat Scan 10/25/24 20:[address] angio chest - dissection Stat Cat Scan 10/25/24 20:[address] angio head Stat Cat Scan 10/25/24 20:[address] angio neck Stat Cat Scan 10/25/24 20:[address] cervical spine wo con Stat Cat Scan 10/25/24 20:[address] head/brain wo con Stat Cat Scan 10/25/24 20:[address] lumbar spine wo con Stat Cat Scan 10/25/24 20:[address] thoracic spine wo con Stat Cat Scan 10/25/24 20:28 Completed XR chest portable Stat Exams 10/25/24 20:20 Completed XR pelvis 1-2V Stat Exams 10/25/24 20:21 Completed Acetone, Serum (Rapid) Stat Lab 10/25/24 20:22 Completed CBC w/Auto Diff [Complete Blood Count Auto Diff] Stat Lab 10/25/24 20:22 Completed CMP [Comprehensive Metabolic Panel] Stat Lab 10/25/24 20:22 Completed Lactic Acid Stat Lab 10/25/24 20:38 Completed Lipase Stat Lab 10/25/24 20:22 Completed MAG [Magnesium] Stat Lab 10/25/24 20:22 Completed Trop I [Troponin I] Stat Lab 10/25/24 20:22 Completed Troponin I Q3H Lab 10/25/24 23:30 Ordered Troponin I Q3H Lab 10/26/24 02:30 Ordered UA [Urinalysis and Microscopic] Stat Lab 10/25/24 22:20 Results Medical Decision Narrative: In summary, this 64-year-old male presents to the emergency department today with trauma alert. On initial evaluation patient is hypotensive systolics in the 90s, well-perfused otherwise. Pupils are ground reactive cranial nerves II, diet, gross motor and sensory in upper and lower extremities intact. Bilateral breath sounds, full pulses. Differential diagnosis includes fracture dislocation sprain strain ICH SDH ACS dissection NH PE. Patient is critically ill. Is mentating appropriately GCS 15 alert and oriented. Will proceed with fluid bolus for hypotension, ACS workup as well as full trauma scans. I reviewed prior records including. Patient received fluids, Zofran, Tylenol, fentanyl, Zofran. For treatment. Labs personally reviewed demonstrate hyponatremia, likely pseudohyponatremia secondary to hyperglycemia. No evidence of GITA when compared to prior per my independent review of the EMR. No anemia no leukocytosis. Troponins flat low suspicion for ACS. XR personally interpreted demonstrates no evidence of acute traumatic injury in the chest or the pelvis.. CT imaging personally interpreted demonstrate no acute intracranial abnormality and rest of trauma scans indicate SFA stenosis, however he has good pulses in his PT and DP distally and is neurologically intact. 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 His pain is completely resolved on reassessment. He is ambulatory about the emergency department tolerating oral intake. It is possible that a concussion earlier in the day, caused his symptoms of lightheadedness. But given his reassuring exam and complete improvement of symptoms, felt reasonable to discharge with strict precautions. He is amenable to following up with his PCP in the next day or 2 for recheck of his sodium and glucose. No evidence of HHS or DKA today.. Of note, social determinants of health include poor health literacy. At this time it was felt that the patient was safe to be discharged home. The patient was in agreement with this plan. The patient was given strict return precautions prior to being discharged from the emergency department. Indication: Blunt trauma Views: accept defaults Interpretation: Peritoneal free fluid: Absent Pericardial effusion: Absent Right thoracic free fluid: Absent Left thoracic free fluid: Absent Right lung pneumothorax: Absent Left lung pneumothorax: Absent Impression: Negative EFAST ultrasound Images were saved in the permanent archive. The study was technically adequate. CPT 48920-23 (limited cardiac) 01457-08 (limited abdominal) 43839-11 (chest) This study was performed by me, and I personally interpreted all images/videos. Based on my clinical judgment, these images were adequate and did not necessitate further imaging. Critical Care Critical Care Time Critical Care Time: Yes Attestation: On 10/25/24, the high probability of a clinically significant, sudden or life threatening deterioration of the following system(s) required my full and direct attention, intervention and personal management. The time I documented below is in addition to time spent performing reported procedures but includes the following listed in this critical care notation. Total Time Total Critical Care Time: 35
--- NOTE | 2024-10-25 20:33 | PC.NURSE ---
Automatic BP 56/36 in triage room. ANAT Miller called this RN to relay info. This RN called the trauma alert at 2014. pt immediately moved to room 1
[2024-10-25 20:34] LABS: Basophils # 0.1 K/mm3 (0-0.2); Basophils % 0.5 % (0.1-2.0); Eosinophils # 0.1 Kmm3 (0.0-0.4); Eosinophils % 1.3 % (0.1-12.0); Hematocrit 43.5 % (42.0-52.0); Hemoglobin 14.3 g/dL (14.1-18.0); Immature Granulocytes # 0.09 10^3uL; Lymphocytes # 2.4 K/mm3 (0.7-4.5); Lymphocytes % 26.5 % (10-50); Mean Corpuscular HGB Conc 32.9 g/dL (31.8-35.4); Mean Corpuscular Hemoglobin 28.8 pg (27.0-31.2); Mean Corpuscular Volume 87.7 fl (80-94); Mean Platelet Volume 12.8 fl (7.4-10.4); Monocytes # 0.9 K/mm3 (0.1-1.0); Monocytes % 9.3 % (1.7-9.3); Neutrophils # 5.6 K/mm3 (1.8-7.8); Neutrophils % 61.4 % (37.0-80.0); Nucleated Red Blood Cells # 0 10^3/uL; Nucleated Red Blood Cells % 0 %; Platelet Count 178 K/mm3 (142-424); Red Blood Count 4.96 M/mm3 (4.60-6.20); Red Cell Distribution Width 14.6 % (11.5-17.5); Red Cell Distribution Width-SD 46.5 fL; White Blood Count 9.1 K/mm3 (4.8-10.8)
[2024-10-25] MEDS: LACTATED RINGERS 1000ML 1,000 ML 999 ML IV (20:35)
[2024-10-25] MEDS: ACETAMINOPHEN 1,000MG/100ML VIAL 1000 MG IV (20:35)
--- NOTE | 2024-10-25 20:36 | PC.NURSE ---
Pt transported to CT at this time
[2024-10-25 20:39] LABS: Alanine Aminotransferase 21 U/L (12-78); Albumin Level 4.1 g/dl (3.5-5.0); Albumin/Globulin Ratio 1.4 (1.1-1.8); Alkaline Phosphatase 158 U/L (38-126); Anion Gap 13.3 mEq/L (5-15); Aspartate Amino Transferase 23 U/L (17-59); Bilirubin,Total 0.6 mg/dl (0.2-1.3); Blood Urea Nitrogen 39 mg/dl (9-20); Calcium 8.8 mg/dl (8.4-10.2); Carbon Dioxide 25 mmol/L (22.0-30.0); Chloride 90 mmol/L (98-107); Creatinine Clearance Estimated 82 mL/min (50-200); Estimated Glomerular Filt Rate 56 ml/min (>60); GFR (African American) 67 ML/MIN (>60); Globulin 2.9 g/dL (1.3-3.2); Lipase 54 U/L (23-300); Magnesium 1.6 mg/dl (1.6-2.3); Potassium 4.3 mmoL/L (3.5-5.1); Sodium 124 mmol/L (136-145)
[2024-10-25 20:49] LABS: Glucose 555 mg/dl (74-100)
[2024-10-25 20:51] LABS: Troponin I 0.02 ng/ml (0.00-0.034)
[2024-10-25 20:56] LABS: Lactic Acid 1.9 mmol/L (0.7-2.1)
[2024-10-25] MEDS: SODIUM CHLORIDE 0.9% 10ML SYR (RAD ONLY) 10 ML IV (21:05)
[2024-10-25] MEDS: 0.9 % SODIUM CHLORIDE 50 ML VIAL 100 ML IV (21:05)
[2024-10-25] MEDS: IOPAMIDOL-370 (76%);100ML BOTTLE 160 ML IV (21:05)
[2024-10-25 21:16] LABS: Acetone, Serum (Rapid) None Detected (None Detect)
[2024-10-25] MEDS: LACTATED RINGERS 1000ML 500 ML 999 ML IV (21:17)
[2024-10-25] MEDS: FENTANYL 100MCG/2ML VIAL 50 MCG IV (21:17)
[2024-10-25 22:25] LABS: Microscopic, Urine URINE MICROSCOPIC (MICROSCOPIC)
[2024-10-25 22:26] LABS: Appearance,Urine CLEAR (Clear); Bilirubin,Urine Negative (Negative); Blood, Urine Negative (Negative); Color,Urine YELLOW (Yellow); Glucose,Urine (UA) 3+ (Negative); Ketones,Urine Negative (Negative); Leukocyte Esterase,Urine Negative (Negative); Nitrate,Urine Negative (Negative); Protein,Urine Negative (Negative); Specific Gravity, Urine <= 1.005 (1.005-1.030); Urobilinogen,Urine 0.2 EU/dl (0.2)
[2024-10-25 23:04] LABS: RBC,Urine Occasional #/hpf (0-3); Squamous Epithelial Cell,Urine Occasional #/hpf (0-5); WBC,Urine Occasional #/hpf (0-3)
== END 2024-10-25 23:08 | disposition home or self-care (01) ==
PROVIDERS: Emergency Provider Emergency Medicine; PCP Family Medicine
DX: S09.90XA Unspecified injury of head, initial encounter (principal); E11.65 Type 2 diabetes mellitus with hyperglycemia; E87.1 Hypo-osmolality and hyponatremia; I10 Essential (primary) hypertension; F17.210 Nicotine dependence, cigarettes, uncomplicated; W01.10XA Fall on same level from slipping, tripping and stumbling with subsequent striking against unspecified object, initial encounter; Z79.01 Long term (current) use of anticoagulants; Z86.79 Personal history of other diseases of the circulatory system
CPT/HCPCS: 70450; 70496; 70498; 71045; 71275; 72125; 72128; 72131; 72170; 74174; 80053; 81001; 82009; 83605; 83690; 83735; 84484; 85025; 93005; 96361; 96374; 96375; 99285; J0131; J2405; J3010; J7120; Q9967

== ENCOUNTER 2024-10-27 11:24 | Outpatient (CLI) | payer MEDICARE, SELFPAY ==
--- OUTSIDE RECORDS SUMMARY | 2007-03-04 05:58 | XMS_ITS | Continuity of Care Document ---
Author Organization [facility] Address [address] [place] [phone] Phone Care Team Providers Care Flat Lock Operator Name Role Phone Sourav Tripp MD Unavailable Unavailable Procedures Procedure Date Offic Cons New/estab Mod 40 Mo 07 Advance Directives Directive Yes / No [...] on Encounter Offic Cons New/estab Mod 40 [facility], [address] [place] [address], [id number], tel:[phone] [facility] ([place]) No Information Qasim Benjamin. [address] [place] [address], [id number], [place]. tel:[phone] Referring Provider: Hakan Pablo, [address] [place] [address], [place], [address]. tel:[phone] Family History Family Member Type Diagnosis Age At Onset Mother Problem (finding) diabetes melli tus in first degree relative Mother Problem (finding) glaucoma Payers Payer name Insurance type Covered constitution party ID Authoriza tion(s) Blue Adv FVM CI [id number] Social History Type Description Quantity Date Captured [...]
[2024-10-27 19:35] LABS: Chloride 99 mmol/L (98-107); Potassium 5.1 mmoL/L (3.5-5.1); Sodium 132 mmol/L (136-145)
[2024-10-27 19:38] LABS: Anion Gap 12.1 mEq/L (5-15); Blood Urea Nitrogen 30 mg/dl (9-20); Calcium 9.9 mg/dl (8.4-10.2); Carbon Dioxide 26 mmol/L (22.0-30.0); Estimated Glomerular Filt Rate 51 ml/min (>60); GFR (African American) 62 ML/MIN (>60)
[2024-10-27 19:53] LABS: Glucose 430 mg/dl (74-100)
--- OUTSIDE RECORDS SUMMARY | 2024-10-28 23:44 | XMS_ITS | Encounter Summary ---
Author Organization [employer] Address [address] [place] [address] Care Team Providers Care Professor Of Violin Name Role Phone Unavailable Primary Care Provider Unavailabl e Encounter Details Date Type Department Care Team (Late st Contact Info) Description 04/08/2019 Transcribed Document [facility] [place] Medicine [address] [place] [address] ProviderMelanie MD [address] [place] [address] Social History Tobacco Use Types Packs/Day Years Used Date Smoking Tobacco: Never Assessed Sex and Gender Information Value Date Recorded Sex Assigned at Not on file Legal Sex Male 4:07 PM CDT Gender Identity Not on file Sexual Orientation Not on file documented as of this encounter Miscellaneous Notes * [employer] Conversion Note - Historical ProviderMD - 04/08/2019 10:42 AM FORESTRY EXTENSION SPECIALIST [place] Suicide Severity Rating Scale (C-SSRS) Entered On: 04/08/2019 11:15 EST Performed On: 04/08/2019 10:45 EST by Renata Dia RN [place] Suicide Severity Rating Scale (C-SSRS) CSSRS Past [...]
--- OUTSIDE RECORDS SUMMARY | 2024-10-28 23:44 | XMS_ITS | Encounter Summary ---
Author Organization [employer] Address [address] [place] [address] Care Team Providers Care Echocardiographer Name Role Phone Unavailable Primary Care Provider Unavailabl e Encounter Details Date Type Department Care Team (Late st Contact Info) Description 05/29/2019 Transcribed Document [facility] Family Medicine [address] [place] [address] ProviderMelanie MD [facility] [place] [address] Social History Tobacco Use Types Packs/Day Years Used Date Smoking Tobacco: Never Assessed Sex and Gender Information Value Date Recorded Sex Assigned at Not on file Legal Sex Male 4:07 PM CDT Gender Identity Not on file Sexual Orientation Not on file documented as of this encounter Miscellaneous Notes * [employer] Conversion Note - Historical ProviderMD - 05/29/2019 3:07 PM DRILLER AND BROACHER Education-Diabetes Topics Entered On: 05/29/2019 16:57 EST [...]
--- OUTSIDE RECORDS SUMMARY | 2024-10-28 23:44 | XMS_ITS | Encounter Summary ---
Author Organization [employer] Address [address] [place] [address] Care Team Providers Care Perinatal Breastfeeding Assistant Name Role Phone Unavailable Primary Care Provider Unavailabl e Encounter Details Date Type Department Care Team (Late st Contact Info) Description 05/28/2019 Transcribed Document [facility] [place] Family Medicine [address] [place] [address] ProviderMelanie MD [facility] [address] Social History Tobacco Use Types Packs/Day Years Used Date Smoking Tobacco: Never Assessed Sex and Gender Information Value Date Recorded Sex Assigned at Not on file Legal Sex Male 4:07 PM CDT Gender Identity Not on file Sexual Orientation Not on file documented as of this encounter Miscellaneous Notes * [employer] Conversion Note - Historical ProviderMD - 05/28/2019 11:54 PM REFINERY OPERATOR VISBREAKING ED Discharge Entered On: 05/28/2019 23:54 EST [...] 05/28/2019 23:54 EST Electronically signed by Angel [facility] Conversion Bus Monitor [employer] at 09/05/2022 2:15 PM CDT documented in this encounter Plan of Treatment Not on file documented as of this encounter Visit Diagnoses Not on filedocumented in this encounter
--- OUTSIDE RECORDS SUMMARY | 2024-10-28 23:44 | XMS_ITS | Encounter Summary ---
Author Organization [employer] Address [address] [place] [address] Care Team Providers Care Institutional Cook Name Role Phone Unavailable Primary Care Provider Unavailabl e Encounter Details Date Type Department Care Team (Late st Contact Info) Description 05/28/2019 Transcribed Document [facility] [place] [facility] [place] [address] ProviderMelanie MD [address] [place] [address] Social History Tobacco Use Types Packs/Day Years Used Date Smoking Tobacco: Never Assessed Sex and Gender Information Value Date Recorded Sex Assigned at Not on file Legal Sex Male 4:07 PM CDT Gender Identity Not on file Sexual Orientation Not on file documented as of this encounter Miscellaneous Notes * Cerner Conversion Note - Historical ProviderMD - 05/28/2019 8:25 PM RIDE MECHANIC Patient: TERRI MOREL Age: 59 years Sex: [...] Patient reports he has been taking his [place] Percocet and morphine at home with no [...] in chart. Surgical history: Right total orchiectomy ([id number]). Repair of right inguinal hernia ([id number]). Hydrocele (3670251071). CABG (Coronary artery bypass grafting) planned ([id number])., Reviewed as documented in chart. 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 U CleanCatch Urine Color Yellow Urine Appearance Clear Urine Specific [place] >1.030 HI Urine pH Dipstick 6.0 Urine [...]
--- OUTSIDE RECORDS SUMMARY | 2024-10-28 23:44 | XMS_ITS | Encounter Summary ---
Author Organization [employer] Address [address] [place] [address] Care Team Providers Care Social Work Therapist Name Role Phone Unavailable Primary Care Provider Unavailabl e Encounter Details Date Type Department Care Team (Late st Contact Info) Description 05/29/2019 Transcribed Document [facility] [place] [address] [place] [address] ProviderMelanie MD [address] [place] [address] Social History Tobacco Use Types Packs/Day Years Used Date Smoking Tobacco: Never Assessed Sex and Gender Information Value Date Recorded Sex Assigned at Not on file Legal Sex Male 4:07 PM CDT Gender Identity Not on file Sexual Orientation Not on file documented as of this encounter Miscellaneous Notes * Cerner Conversion Note - Historical ProviderMD - 05/29/2019 12:00 PM TELEMARKETER UM Authorization Entered On: 05/29/2019 12:00 EST Performed On: 05/29/2019 12:00 EST by ZLUY PIERRE Rn-Utilization Review Primary Insurance Authorization Authorization and Policy Numbers : Insurance 1 Health Plan: MEDICARE Policy Number: [id number] Authorization Number: Insurance Primary Name : MEDICARE Policy Number: [id number] Historical Authorization Comments-Primary : No Authorization Comments Found ZULY PIERRE Rn-Utilization Review - 05/29/2019 12:00 EST documented in this encounter Plan of Treatment Not on file documented as of this encounter Visit Diagnoses Not on filedocumented in this encounter
--- OUTSIDE RECORDS SUMMARY | 2024-10-28 23:44 | XMS_ITS | Encounter Summary ---
Author Organization [employer] i[employer] Address [address] [place] [address] Care Team Providers Care Airport Planner Name Role Phone Unavailable Primary Care Provider Unavailabl e Encounter Details Date Type Department Care Team (Late st Contact Info) Description 05/28/2019 Transcribed Document [facility] [place] Family [place] [address] [place] [address] ProviderMelanie MD [facility] [place], [place] [address] Social History Tobacco Use Types Packs/Day Years Used Date Smoking Tobacco: Never Assessed Sex and Gender Information Value Date Recorded Sex Assigned at Not on file Legal Sex Male 4:07 PM CDT Gender Identity Not on file Sexual Orientation Not on file documented as of this encounter Miscellaneous Notes * Cerner Conversion Note - Melanie ProviderMD - 05/28/2019 9:02 PM MANAGER GAME Patient: TERRI MOREL Age: 59 years Sex: [...] Pharmacy consulted to dose vancomycin for abscess. VHD=153 kg BMI=38.7 Consulting MD: Harshad Martino ID: [...] for this consultation. Adri Fisher, PharmD PGY-1 Retail Department Supervisor [phone] documented in this encounter Plan of Treatment Not on file documented as of this encounter Visit Diagnoses Not on filedocumented in this encounter
--- OUTSIDE RECORDS SUMMARY | 2024-10-28 23:44 | XMS_ITS | Encounter Summary ---
Author Organization [employer] Address [address] [place] [address] Care Team Providers Care Pain Management Specialist Name Role Phone Unavailable Primary Care Provider Unavailabl e Encounter Details Date Type Department Care Team (Late st Contact Info) Description 05/29/2019 Transcribed Document [facility] [place] Family Medicine [address] [place] [address] ProviderMelanie MD [facility] [place] [address] Social History Tobacco Use Types Packs/Day Years Used Date Smoking Tobacco: Never Assessed Sex and Gender Information Value Date Recorded Sex Assigned at Not on file Legal Sex Male 4:07 PM CDT Gender Identity Not on file Sexual Orientation Not on file documented as of this encounter Miscellaneous Notes * Cerner Conversion Note - Melanie ProviderMD - 05/29/2019 4:43 AM PUBLIC HEALTH NUTRITIONIST Education-Diabetes Topics Entered On: 05/29/2019 6:31 EST Performed On: 05/29/2019 4:43 EST by Jenna Vargas Lpn Teaching/Learning Assessment Barriers To Learning : None evident Individuals Taught : Patient, Spouse Readiness to Learn : Cooperative Highest Level of Education : Some college Baseline Knowledge of Topic : Comprehensive Readiness to Learn : Explanation Jenna Vargas Lpn - 05/29/2019 6:31 EST [...]
--- OUTSIDE RECORDS SUMMARY | 2024-10-28 23:44 | XMS_ITS | Encounter Summary ---
Author Organization [employer] Address [address] [place] [address] Care Team Providers Care Dried Fruit Washer Name Role Phone Unavailable Primary Care Provider Unavailabl e Encounter Details Date Type Department Care Team (Late st Contact Info) Description 05/29/2019 Transcribed Document [facility] [place] [address] [place] [address] ProviderMelanie MD [facility] [place] [address] Social History Tobacco Use Types Packs/Day Years Used Date Smoking Tobacco: Never Assessed Sex and Gender Information Value Date Recorded Sex Assigned at Not on file Legal Sex Male 4:07 PM CDT Gender Identity Not on file Sexual Orientation Not on file documented as of this encounter Miscellaneous Notes * Cerner Conversion Note - Historical ProviderMD - 05/29/2019 12:07 AM LEAD BUSINESS ANALYST Provider Notification Entered On: 05/29/2019 2:08 EST Performed On: 05/29/2019 0:07 EST by Jenna Vargas Lpn Provider Notification Provider Notified of Concerns/Results : Other: ANNA with home CPAP Provider Notified Name : FRANCOIS WISE DO Provider Notified Time : 05/29/2019 0:00 EST Jenna Vargas Lpn - 05/29/2019 2:08 EST documented in this encounter Plan of Treatment Not on file documented as of this encounter Visit Diagnoses Not on filedocumented in this encounter
--- OUTSIDE RECORDS SUMMARY | 2024-10-28 23:44 | XMS_ITS | Encounter Summary ---
Author Organization [employer] Address [address] [place] [address] Care Team Providers Care Social Science Teacher Name Role Phone Unavailable Primary Care Provider Unavailabl e Encounter Details Date Type Department Care Team (Late st Contact Info) Description 05/29/2019 Transcribed Document [facility] [place] [address] [place] [address] ProviderMelanie MD [facility] [address] Social History Tobacco Use Types Packs/Day Years Used Date Smoking Tobacco: Never Assessed Sex and Gender Information Value Date Recorded Sex Assigned at Not on file Legal Sex Male 4:07 PM CDT Gender Identity Not on file Sexual Orientation Not on file documented as of this encounter Miscellaneous Notes * Cerner Conversion Note - Historical ProviderMD - 05/29/2019 5:00 AM LIVESTOCK NUTRITION TERRITORY MANAGER Chart Check - Review Order Profile Entered [...]
--- OUTSIDE RECORDS SUMMARY | 2024-10-28 23:44 | XMS_ITS | Encounter Summary ---
Author Organization [employer] Address [address] [place] [address] Care Team Providers Care Religion Department Chair Name Role Phone Unavailable Primary Care Provider Unavailabl e Encounter Details Date Type Department Care Team (Late st Contact Info) Description 05/28/2019 Transcribed Document [facility] [place] [address] [place] [address] ProviderMelanie MD [facility] [place], [place] [address] Social History Tobacco Use Types Packs/Day Years Used Date Smoking Tobacco: Never Assessed Sex and Gender Information Value Date Recorded Sex Assigned at Not on file Legal Sex Male 4:07 PM CDT Gender Identity Not on file Sexual Orientation Not on file documented as of this encounter Miscellaneous Notes * Cerner Conversion Note - Historical ProviderMD - 05/28/2019 9:10 PM GOLD TOOLER Admission History, Adult Entered On: 05/29/2019 0:07 [...] From : Patient, Spouse Primary Language : [place]ian Preferred Communication Mode : Verbal Communication Barrier [...] Scale Risk Level : 25-45 Medium Risk Ray Fall Interventions : Adequate lighting, Assistive devices [...] Source : Stated Height Entry Format : [place] Height, Feet : 5 ft(Converted to: 152 cm, 60 Inch) Height, Inches : 4 Inch(Converted to: 0 ft 4 Inch, 10.16 cm) Clinical Height : 162.56 cm Weight Source : Bed scale Weight Entry Format : [place] Clinical Dosing Weight : 102.27 kg Weight, Pounds : 225 lb Body Surface Area (BSA) : 2.06 m2 Body Mass Index : 38.7 kg/m2 (HI) [place] Body Weight : 58 kg Jenna Vargas [...] risk Jenna Vargas Lpn 05/29/2019 0:02 EST [place] Suicide Severity Rating Scale (C-SSRS) CSSRS Past [...] in Unsafe Situation : No Jenna Vargas Cheese Grader 05/29/2019 0:02 EST Sleep Apnea Risk Assmt BiPAP/CPAP Ordered for Home Use : Yes Hx of Obstructive Sleep Apnea Diagnosis : Yes BiPAP/CPAP Used at Home : Yes Age over 50 Years Old : Yes Gender Male : Yes Jenna Vargas Cheese Grader 05/29/2019 0:02 EST Spiritual/Cultural Needs Significant Loss/Crisis in Past 3 Years : No Any Spiritual/Cultural Needs or Requests : No Jenna Vargas Cheese Grader 05/29/2019 0:02 EST Valuables and Belongings Valuables and Belongings : Clothing, Personal devices, Personal items Clothing : Common streetwear Clothing Disposition : Bedside, With family Personal Device Disposition : Bedside, With family Personal Devices : Glasses Personal Items : Cell phone, Other: CPAP Personal Items Disposition : Bedside Jenna Vargas [facility] - 05/29/2019 0:02 EST documented in this encounter Plan of Treatment Not on file documented as of this encounter Visit Diagnoses Not on filedocumented in this encounter
--- OUTSIDE RECORDS SUMMARY | 2024-10-28 23:44 | XMS_ITS | Encounter Summary ---
Author Organization [employer] Address [address] [place] [address] Care Team Providers Care Bad Credit Collector Name Role Phone Unavailable Primary Care Provider Unavailabl e Encounter Details Date Type Department Care Team (Late st Contact Info) Description 05/29/2019 Transcribed Document [facility] [place] [address] [place] [address] ProviderMelanie MD [facility] [place] [address] Social History Tobacco Use Types Packs/Day Years Used Date Smoking Tobacco: Never Assessed Sex and Gender Information Value Date Recorded Sex Assigned at Not on file Legal Sex Male 4:07 PM CDT Gender Identity Not on file Sexual Orientation Not on file documented as of this encounter Miscellaneous Notes * Cerner Conversion Note - Historical ProviderMD - 05/29/2019 5:00 PM TOURIST INFORMATION OFFICER Chart Check - Review Order Profile Entered On: 05/29/2019 16:57 EST Performed On: 05/29/2019 17:00 EST by JANN JOSEPH RN Chart Check Powerplans Initiated/Discontinued as Appropriate : Yes All Active Orders Reviewed : Yes JANN JOSEPH RN - 05/29/2019 16:57 EST Electronically signed by Angel [facility] Conversion Vendor Specialist [place] at 09/05/2022 2:06 PM CDT documented in this encounter Plan of Treatment Not on file documented as of this encounter Visit Diagnoses Not on filedocumented in this encounter
--- OUTSIDE RECORDS SUMMARY | 2024-10-28 23:44 | XMS_ITS | Encounter Summary ---
Author Organization [employer] Address [address] [place] [address] Care Team Providers Care Cable Coverer Name Role Phone Unavailable Primary Care Provider Unavailabl e Encounter Details Date Type Department Care Team (Late st Contact Info) Description 05/29/2019 Transcribed Document [facility] [place] [address] [place] [address] ProviderMelanie MD [facility] [address] Social History Tobacco Use Types Packs/Day Years Used Date Smoking Tobacco: Never Assessed Sex and Gender Information Value Date Recorded Sex Assigned at Not on file Legal Sex Male 4:07 PM CDT Gender Identity Not on file Sexual Orientation Not on file documented as of this encounter Miscellaneous Notes * Cerner Conversion Note - Historical ProviderMD - 05/29/2019 11:15 AM RADIOLOGY TRANSPORTER [facility] Main OR PACU Summary Primary Physician: JC LUQUE MD-URO Finalized Date/Time: 05/29/19 13:38:14 Pt. Name: MORELTERRI /Sex: 1960 Male Med Rec #: [id number] Physician: FRANCOIS WISE DO Financial #: [id number] Pt. Type: I Room/Bed: [facility]/1 Admit/Disch: 05/28/19 20:28:00 - Institution: [facility] Main OR PACU I Case Times Entry 1 In PACU I 05/29/19 12:40:00 Ready for PACU 05/29/19 13:30:00 Discharge Discharge from PACU 05/29/19 13:30:00 I Last Modified By: Janel Zelaya RN 05/29/19 13:38:05 Finalized By: Janel Zelaya RN Document Signatures Signed By: Janel Zelaya RN 05/29/19 13:38 Electronically signed by Angel [facility] Conversion Blending Coordinator Cerner at 09/05/2022 2:21 PM CDT documented in this encounter Plan of Treatment Not on file documented as of this encounter Visit Diagnoses Not on filedocumented in this encounter
--- OUTSIDE RECORDS SUMMARY | 2024-10-28 23:44 | XMS_ITS | Encounter Summary ---
Author Organization [employer] Address [address] [place] [address] Care Team Providers Care Supervisor Research Kennel Name Role Phone Unavailable Primary Care Provider Unavailabl e Encounter Details Date Type Department Care Team (Late st Contact Info) Description 05/29/2019 Transcribed Document [facility] [place] [address] [place] [address] ProviderMelanie MD [address] [place], [place] [address] Social History Tobacco Use Types Packs/Day Years Used Date Smoking Tobacco: Never Assessed Sex and Gender Information Value Date Recorded Sex Assigned at Not on file Legal Sex Male 4:07 PM CDT Gender Identity Not on file Sexual Orientation Not on file documented as of this encounter Miscellaneous Notes * Cerner Conversion Note - Historical ProviderMD - 05/29/2019 2:00 AM HUMAN SERVICES ASSISTANT Metal Fabricating Shop Helper Details Entered On: 05/29/2019 3:59 EST Performed [...] Jenna Vargas Lpn - 05/29/2019 3:59 EST documented in this encounter Plan of Treatment Not on file documented as of this encounter Visit Diagnoses Not on filedocumented in this encounter
--- OUTSIDE RECORDS SUMMARY | 2024-10-28 23:44 | XMS_ITS | Encounter Summary ---
Author Organization [employer] Address [address] [place] [address] Care Team Providers Care Sap Developer Name Role Phone Unavailable Primary Care Provider Unavailabl e Encounter Details Date Type Department Care Team (Late st Contact Info) Description 05/28/2019 Transcribed Document [facility] [place] [facility] [place] [address] ProviderMelanie MD [address] [place] [address] Social History Tobacco Use Types Packs/Day Years Used Date Smoking Tobacco: Never Assessed Sex and Gender Information Value Date Recorded Sex Assigned at Not on file Legal Sex Male 4:07 PM CDT Gender Identity Not on file Sexual Orientation Not on file documented as of this encounter Miscellaneous Notes * Cerner Conversion Note - Melanie ProviderMD - 05/28/2019 8:56 PM PAIRER ODDS Patient: TERRI MOREL Age: 59 years Sex: [...] Drainage noted. History of Present Illness Mr. Morel is 59-year-old white male with [...] Patient reports he has been taking his [employer] Percocet and morphine at home with no [...] Oral, BID vancomycin: 1,000 mg, IV Piggyback, [id number], Medications (16) Active Scheduled: (6) famotidine 20 mg tab 20 mg 1 Tab, Oral, BID HYDROmorphone 1 mg/1 mL inj 1 mg 1 mL, IV Push, 1-Time insulin lispro Scale D:, SubCutaneous, AC and at Bedtime lactobacillus acidophilus cap 1 Cap, Oral, BID piperacillin-tazobactam 3.375 Gram, IV Piggyback, Q6HInt vancomycin 1,000 mg, IV Piggyback, [id number] Continuous: (1) NaCl 0.45% 1000 mL 1,000 [...] diabetes mellitus Procedure history: Right total orchiectomy ([id number]). Repair of right inguinal hernia (5326913642). Hydrocele (7350797500). CABG (Coronary artery bypass grafting) planned ([id number]). Social History Social & Psychosocial Habits No [...]
--- OUTSIDE RECORDS SUMMARY | 2024-10-28 23:44 | XMS_ITS | Encounter Summary ---
Author Organization [employer] Address [address] [place] [address] Care Team Providers Care Assembler Dielectric Heater Name Role Phone Unavailable Primary Care Provider Unavailabl e Encounter Details Date Type Department Care Team (Late st Contact Info) Description 05/28/2019 Transcribed Document [facility] [place] [facility] [place] [address] ProviderMelanie MD [address] [place] [id number] Social History Tobacco Use Types Packs/Day Years Used Date Smoking Tobacco: Never Assessed Sex and Gender Information Value Date Recorded Sex Assigned at Not on file Legal Sex Male 4:07 PM CDT Gender Identity Not on file Sexual Orientation Not on file documented as of this encounter Miscellaneous Notes * Cerner Conversion Note - Melanie ProviderMD - 05/28/2019 6:12 PM COMPUTER ASSEMBLER ED Triage Entered On: 05/28/2019 18:28 EST [...] : 3 - Urgent Tracking Group : [facility] ED KEN GAY RN - 05/28/2019 18:16 [...] PNED ; Probability: 0 ; Diagnosis Code: [id number] ED Height and Weight Height Source : Stated Height Entry Format : [place] Height, Feet : 5 ft(Converted to: 152 cm, 60 Inch) Height, Inches : 4 Inch(Converted to: 0 ft 4 Inch, 10.16 cm) Clinical Height : 162.56 cm Weight Source, ED : Critical estimated dosing weight Weight Entry Format : [place] Weight, Pounds : 225 lb Clinical Dosing Weight : 102.27 kg Body Surface Area (BSA) : 2.06 m2 Body Mass Index : 38.7 kg/m2 (HI) [place] Body Weight (IBW) : 58.3 kg KEN GAY RN - 05/28/2019 18:16 EST Electronically signed by Angel [facility] Conversion Concrete Block Mason Cerner at 09/05/2022 2:17 PM CDT documented in this encounter Plan of Treatment Not on file documented as of this encounter Visit Diagnoses Not on filedocumented in this encounter
--- OUTSIDE RECORDS SUMMARY | 2024-10-28 23:44 | XMS_ITS | Encounter Summary ---
Author Organization [employer] Address [address] [place] [address] Care Team Providers Care Roll Coating Machine Operator Name Role Phone Unavailable Primary Care Provider Unavailabl e Encounter Details Date Type Department Care Team (Late st Contact Info) Description 05/30/2019 Transcribed Document [facility] [place] [address] [place] [address] ProviderMelanie MD [facility] [place], [place] [address] Social History Tobacco Use Types Packs/Day Years Used Date Smoking Tobacco: Never Assessed Sex and Gender Information Value Date Recorded Sex Assigned at Not on file Legal Sex Male 4:07 PM CDT Gender Identity Not on file Sexual Orientation Not on file documented as of this encounter Miscellaneous Notes * Cerner Conversion Note - Melanie ProviderMD - 05/30/2019 11:16 AM DOUGHNUT DOUGH MIXER Initial Discharge Planning Entered On: 05/30/2019 11:18 EST Performed On: 05/30/2019 11:16 EST by LYNDSEY GAY RN-Traffic Sign Supervisor Initial Assessment I Previously Documented Living Environment : No qualifying data available. LYNDSEY GAY RN-Traffic Sign Supervisor - 05/30/2019 11:19 EST Living Situation : [...] Is Guardianship Needed : No LYNDSEY GAY RN-Traffic Sign Supervisor - 05/30/2019 11:16 EST Initial Assessment II Sensory and Motor Deficits : None Current Home Treatments and Equipment : CPAP, Walker (Comment: Rollator [LYNDSEY GAY RN-Traffic Sign Supervisor - 05/30/2019 11:19 EST] ) Home Equipment Contact Information : [facility] CPAP provider [phone] Services and Community Resources : Home Health (Comment: Pt states that he was current with [facility] [LYNDSEY GAY RN-Traffic Sign Supervisor - 05/30/2019 11:19 EST] ) Does the Patient have a Floor to SNF Benefit? : Yes LYNDSEY GAY RN-Traffic Sign Supervisor - 05/30/2019 11:16 EST Discharge Needs I Anticipated Discharge Date : 05/31/2019 EST Anticipated Discharge To, CM : Home with home health Current Home Treatment/Equipment : Current Home Treatment/Equipment No qualifying data available. Post Acute/Home Treatments : None Documentation Status Complete : Yes LYNDSEY GAY RN-Traffic Sign Supervisor - 05/30/2019 11:16 EST Discharge Needs II Professional Skilled Services : Professional Skilled Services No qualifying data available. Needs Assistance with Transportation : No LYNDSEY GAY RN-Traffic Sign Supervisor - 05/30/2019 11:16 EST Narrative Note Narrative [...] @ 39. CM will follow. LYNDSEY GAY RN-Traffic Sign Supervisor - 05/30/2019 11:19 EST documented in this encounter Plan of Treatment Not on file documented as of this encounter Visit Diagnoses Not on filedocumented in this encounter
--- OUTSIDE RECORDS SUMMARY | 2024-10-28 23:44 | XMS_ITS | Encounter Summary ---
Author Organization [employer] Address [address] [place] [address] Care Team Providers Care Bump Grader Operator Name Role Phone Unavailable Primary Care Provider Unavailabl e Encounter Details Date Type Department Care Team (Late st Contact Info) Description 05/30/2019 Transcribed Document [facility] [place] [address] [place] [address] ProviderMelanie MD [facility] [place] [address] Social History Tobacco Use Types Packs/Day Years Used Date Smoking Tobacco: Never Assessed Sex and Gender Information Value Date Recorded Sex Assigned at Not on file Legal Sex Male 4:07 PM CDT Gender Identity Not on file Sexual Orientation Not on file documented as of this encounter Miscellaneous Notes * Cerner Conversion Note - Historical ProviderMD - 05/30/2019 11:[address] HOGGER OPERATOR On Going Discharge Planning Entered On: 05/30/2019 11:23 EST Performed On: 05/30/2019 11:23 EST by LYNDSEY GAY RN-Toe Lining CloserEarly Interventionist Progress Note Discharge Arrangements : Patient Post-Acute Information Patient Name: TERRI VARGAS Gender: Male : 62 Age: 59 Years No Post-Acute Placement(s) Listed No Post-Acute Service(s) Listed No Curaspan Referral(s) Listed Did you Attend Multidisciplinary Rounds? : Yes LYNDSEY GAY RN-Toe Lining Closer - 05/30/2019 11:23 EST Electronically signed by Angel [facility] Conversion Media Aid Cerner at 09/05/2022 2:03 PM CDT documented in this encounter Plan of Treatment Not on file documented as of this encounter Visit Diagnoses Not on filedocumented in this encounter
--- OUTSIDE RECORDS SUMMARY | 2024-10-28 23:44 | XMS_ITS | Encounter Summary ---
Author Organization [facility] [email or web address] Address [address] [place] [address] Care Team Providers Care Supervisor [place]er [place] Name Role Phone Unavailable Primary Care Provider Unavailabl e Encounter Details Date Type Department Care Team (Late st Contact Info) Description 05/29/2019 Transcribed Document [facility] [place] [address] [place] [address] ProviderMelanie MD [facility] [place] [address] Social History Tobacco Use Types Packs/Day Years Used Date Smoking Tobacco: Never Assessed Sex and Gender Information Value Date Recorded Sex Assigned at Not on file Legal Sex Male 4:07 PM CDT Gender Identity Not on file Sexual Orientation Not on file documented as of this encounter Miscellaneous Notes * Cerner Conversion Note - Historical ProviderMD - 05/29/2019 8:00 AM SAFETY SECURITY OFFICER Consult Phone Call Documentation Entered On: 05/29/2019 [...]
--- OUTSIDE RECORDS SUMMARY | 2024-10-28 23:44 | XMS_ITS | Clinical Summary ---
Author Organization [facility] Address [address] [place] [address] Care Team Providers Care Shallot Cleaner Name Role Phone Anita Dumas Primary Care Provider [phone] Allergies Active Allergy Reactions Criticality Noted Date [...] Team Description 08/03/2024 11:30 AM EDT Consult [facility] [address] [place] [address] Jermaine Pringle MD Intracranial vascular stenosis (Primary [...] (2 - Td or Tdap) 05/05/2023 05/05/2013 [id number] Vaccine (1 - season) 2024 UKY-Influenza Vaccine [...] <6.0% Children and Adolescents <7.5% . Source: [place] [employer]. Standards of medical care in diabetes, 2017. Diabetes Care.2017:40 (suppl 1):S1-S135. . HbA1c assay performed by an ion-exchange chromatography method that is certified traceable to the DCCT. 11/14/2018 6:10 PM EDT 11/14/2018 6:24 PM EDT us Mikel Dowell MAGAZINE WORKER LAB BLOOD ORDERABLES Final Re sult SUNQUEST from Last 3 Months or Most Recently Relevant to Health Maintenance Insurance MEDICARE Care Teams Shallot Cleaner Relationship Specialty Start Date End Date Anita Dumas PA [address] [place] [address] PCP - General 08/06/22
--- OUTSIDE RECORDS SUMMARY | 2024-10-28 23:44 | XMS_ITS | Encounter Summary ---
Author Organization [employer] Address [address] [place] [address] Care Team Providers Care Mobile Qa Tester Name Role Phone Unavailable Primary Care Provider Unavailabl e Encounter Details Date Type Department Care Team (Late st Contact Info) Description 05/29/2019 Transcribed Document [facility] [address] [place] [address] ProviderMelanie MD [address] [place] [address] Social History Tobacco Use Types Packs/Day Years Used Date Smoking Tobacco: Never Assessed Sex and Gender Information Value Date Recorded Sex Assigned at Not on file Legal Sex Male 4:07 PM CDT Gender Identity Not on file Sexual Orientation Not on file documented as of this encounter Miscellaneous Notes * Cerner Conversion Note - Historical ProviderMD - 05/29/2019 2:02 PM COCKTAIL WAITRESS Patient: TERRI MOREL Age: 59 years Sex: [...] the wound and he has been taking [place] Percocet and morphine at home with no [...] 250 m - 1,500 mg, IV Piggyback, [id number], infuse over 60 Minute(s), Routine Immunology influenza virus vaccine, inactivated - 0.5 mL, IntraMuscular, Inj, [id number] Cardiovascular carvedilol - 25 mg, Oral, Tab, [...] process/pending Rad: Radiology Results (Last 48 hours) [id number] -- 05/28/2019 20:28 CR Chest 1 Vw [...] Vazquez APRN for Dr. Chuck OROPEZA DC Electronically signed by Angel [facility] Conversion Hot Packer Cerner at 09/05/2022 2:16 PM CDT documented in this encounter Plan of Treatment Not on file documented as of this encounter Visit Diagnoses Not on filedocumented in this encounter
--- OUTSIDE RECORDS SUMMARY | 2024-10-28 23:44 | XMS_ITS | Encounter Summary ---
Author Organization [facility] Address [address] [place] [address] Care Team Providers Care Glue Clamp Operator Name Role Phone Anita Dumas Primary Care Provider [phone] Encounter Details Date Type Department Care Team ([facility] st Contact Info) Description 03/28/2024 Orders Only External Location [address] [place] [address] Provider, External Social History Tobacco Use Types [...] documented as of this encounter Care Teams Glue Clamp Operator Relationship Specialty Start Date End Date Anita Dumas PA [address] [place] [address] PCP - General 08/06/22 documented as of this encounter
--- OUTSIDE RECORDS SUMMARY | 2024-10-28 23:44 | XMS_ITS | Encounter Summary ---
Author Organization [employer] Address [address] [place] [address] Care Team Providers Care Government Professor Name Role Phone Unavailable Primary Care Provider Andrew e Encounter Details Date Type Department Care Team (Late st Contact Info) Description 05/29/2019 Transcribed Document [facility] [place] [address] [place] [address] ProviderMelanie MD [address] [place], [place] [address] Social History Tobacco Use Types Packs/Day Years Used Date Smoking Tobacco: Never Assessed Sex and Gender Information Value Date Recorded Sex Assigned at Not on file Legal Sex Male 4:07 PM CDT Gender Identity Not on file Sexual Orientation Not on file documented as of this encounter Miscellaneous Notes * Cerner Conversion Note - Historical ProviderMD - 05/29/2019 11:21 AM BUSINESS EDUCATION INSTRUCTOR Pain Assessment Entered On: 05/29/2019 16:57 EST [...]
--- OUTSIDE RECORDS SUMMARY | 2024-10-28 23:44 | XMS_ITS | Encounter Summary ---
Author Organization [employer] Address [address] [place] [address] Care Team Providers Care Plate And Frame Filter Operator Name Role Phone Unavailable Primary Care Provider Unavailabl e Encounter Details Date Type Department Care Team (Late st Contact Info) Description 05/29/2019 Transcribed Document [facility] Family Medicine [address] [place] [address] ProviderMelanie MD [address] [place] [address] Social History Tobacco Use Types Packs/Day Years Used Date Smoking Tobacco: Never Assessed Sex and Gender Information Value Date Recorded Sex Assigned at Not on file Legal Sex Male 4:07 PM CDT Gender Identity Not on file Sexual Orientation Not on file documented as of this encounter Miscellaneous Notes * Cerner Conversion Note - Melanie Grider MD - 05/29/2019 8:05 AM SHAPER MACHINE HAND Patient: TERRI MOREL Age: 59 years Sex: [...] influenza virus vaccine, inactivated: 0.5 mL, IntraMuscular, [id number] insulin regular sliding scale: Scale D, SubCutaneous, Q6H lactobacillus acidophilus: 1 Cap, Oral, BID lisinopril: 10 mg, Oral, Daily vancomycin + Sodium Chloride 0.9% intravenous solution 250 mL: 1,500 mg, 250 mL/Hr, IV Piggyback, [id number] Documented Medications Documented Aspir 81: mg, Oral, [...] Daily influenza vaccine, quadrivalent 0.5 mL, IntraMuscular, [id number] insulin regular 1 unit/0.01 mL inj 3mL Scale D, SubCutaneous, Q6H lactobacillus acidophilus cap 1 Cap, Oral, BID lisinopril 10 mg tab 10 mg 1 Tab, Oral, Daily NIFEdipine ER 90 mg tab 90 mg 1 Tab, Oral, Daily piperacillin-tazobactam + NaCl 0.9% 100 mL 3.375 Gram, IV Piggyback, Q6HInt vancomycin + NaCl 0.9% 250 mL 1,500 mg, IV Piggyback, I14LYan Continuous: (1) NaCl 0.45% 1,000 mL 1,000 [...] History of obstructive sleep apnea / IMO [id number] / Confirmed, Active Problems (1) History of [...] tenderness, No swelling, No deformity. Integumentary: Warm, Jet, Moist, No rash, scrotal ulcer in the [...] 41.9 \, Radiology Results (Last 48 hours) [id number] -- 05/28/2019 20:28 CR Chest 1 Vw [...]
--- OUTSIDE RECORDS SUMMARY | 2024-10-28 23:44 | XMS_ITS | Encounter Summary ---
Author Organization [employer] Address [address] [place] [address] Care Team Providers Care Supervisor Cook Room Name Role Phone Unavailable Primary Care Provider Unavailabl e Encounter Details Date Type Department Care Team (Late st Contact Info) Description 05/28/2019 Transcribed Document [facility] [place] [facility] [place] [address] [place] [address] ProviderMelanie MD [facility] [place] [address] Social History Tobacco Use Types Packs/Day Years Used Date Smoking Tobacco: Never Assessed Sex and Gender Information Value Date Recorded Sex Assigned at Not on file Legal Sex Male 4:07 PM CDT Gender Identity Not on file Sexual Orientation Not on file documented as of this encounter Miscellaneous Notes * Cerner Conversion Note - Historical ProviderMD - 05/28/2019 8:36 PM LABORATORY DIRECTOR Pain Assessment Entered On: 05/29/2019 2:09 EST [...]
--- OUTSIDE RECORDS SUMMARY | 2024-10-28 23:44 | XMS_ITS | Encounter Summary ---
Author Organization [employer] Address [address] [place] [address] Care Team Providers Care Certified Nurse Midwife Name Role Phone Unavailable Primary Care Provider Unavailabl e Encounter Details Date Type Department Care Team (Late st Contact Info) Description 05/29/2019 Transcribed Document [facility] [place] [address] [place] [address] ProviderMelanie MD [facility] [place] [address] Social History Tobacco Use Types Packs/Day Years Used Date Smoking Tobacco: Never Assessed Sex and Gender Information Value Date Recorded Sex Assigned at Not on file Legal Sex Male 4:07 PM CDT Gender Identity Not on file Sexual Orientation Not on file documented as of this encounter Miscellaneous Notes * Cerner Conversion Note - Historical ProviderMD - 05/29/2019 8:00 AM PROTECTIVE SERVICE SPECIALIST Consult Phone Call Documentation Entered On: 05/29/2019 [...]
--- OUTSIDE RECORDS SUMMARY | 2024-10-28 23:44 | XMS_ITS | Encounter Summary ---
Author Organization [employer] Address [address] [place] [address] Care Team Providers Care Furnace Converter Name Role Phone Unavailable Primary Care Provider Unavailabl e Encounter Details Date Type Department Care Team (Late st Contact Info) Description 05/30/2019 Transcribed Document [facility] [place] [address] [place] [address] ProviderMelanie MD [facility] [place], [place] [address] Social History Tobacco Use Types Packs/Day Years Used Date Smoking Tobacco: Never Assessed Sex and Gender Information Value Date Recorded Sex Assigned at Not on file Legal Sex Male 4:07 PM CDT Gender Identity Not on file Sexual Orientation Not on file documented as of this encounter Miscellaneous Notes * Cerner Conversion Note - Historical ProviderMD - 05/30/2019 1:59 AM POT OPERATOR Pain Assessment Entered On: 05/30/2019 5:08 EST [...] the text rendition version of the form. Electronically signed by Nicci Ortiz Conversion Director Of Physician Practices Cerner at 09/05/2022 2:13 PM CDT documented in this encounter Plan of Treatment Not on file documented as of this encounter Visit Diagnoses Not on filedocumented in this encounter
--- OUTSIDE RECORDS SUMMARY | 2024-10-28 23:44 | XMS_ITS | Encounter Summary ---
Author Organization [employer] Address [address] [place] [address] Care Team Providers Care Flavor Room Worker Name Role Phone Unavailable Primary Care Provider Unavailabl e Encounter Details Date Type Department Care Team (Late st Contact Info) Description 05/29/2019 Transcribed Document [facility] [place] [address] [place] [address] ProviderMelanie MD [facility] [place], [place] [address] Social History Tobacco Use Types Packs/Day Years Used Date Smoking Tobacco: Never Assessed Sex and Gender Information Value Date Recorded Sex Assigned at Not on file Legal Sex Male 4:07 PM CDT Gender Identity Not on file Sexual Orientation Not on file documented as of this encounter Miscellaneous Notes * Cerner Conversion Note - Historical ProviderMD - 05/29/2019 11:15 AM DIRECT MARKETING COORDINATOR [facility] Main OR IntraOp Summary Primary Physician: JC LUQUE MD-SHANTEL Finalized Date/Time: 05/31/19 10:17:06 Pt. Name: LES MORELUSHA Rutherford /Sex: 1960 Male Med Rec #: [id number] Physician: FRANCOIS WISE DO Financial #: [id number] Pt. Type: I Room/Bed: [facility]/ Admit/Disch: 05/28/19 20:28:00 - Institution: [facility] IntraOp Case Attendance Entry 1 Entry 2 [...] Irvin RN WATTS, DESHAWNIA R. Role Performed Communications Attendant, First Scrub, First Time In 05/29/19 11:00:00 05/29/19 11:00:00 Time Out 05/29/19 12:38:00 05/29/19 12:38:00 Procedure Scrotal Exploration Scrotal Exploration Other Attendee Superficial Wound Closed By: Last Modified By: Mikel Irvin RN Pantano, Scott, RN 05/29/19 12:40:12 05/29/19 12:40:12 [facility] IntraOp Case Attendance Audit 05/29/19 12:40:12 Naval Designer: BRENTANONorris Modifier: PANTANOS 1 <+> Time Out 1 <*> Procedure Scrotal Exploration 2 <+> Time Out 2 <*> Procedure Scrotal Exploration 3 <+> Time Out 3 <*> Procedure Scrotal Exploration 4 <+> Time Out 4 <*> Procedure Scrotal Exploration 5 <+> Time Out 5 <*> Procedure Scrotal Exploration 05/29/19 11:31:44 Naval Designer: BERNTANOS Modifier: PANTANOS <+> 1 Procedure 2 <*> Procedure Scrotal Exploration 3 <*> Procedure Scrotal Exploration 4 <*> Procedure Scrotal Exploration 5 <*> Procedure Scrotal Exploration 05/29/19 11:30:54 Naval Designer: PANTANOS Modifier: PANTANOS 2 <+> Time In 2 <*> Procedure Scrotal Exploration 3 <+> Time In 3 <*> Procedure Scrotal Exploration 4 <+> Time In 4 <*> Procedure Scrotal Exploration 5 <+> Time In 5 <*> Procedure Scrotal Exploration [facility] IntraOp Case Times Entry 1 Patient In Room Time 05/29/19 11:00:00 Out Room Time 05/29/19 12:38:00 Anesthesia Start Time 05/29/19 11:00:00 Stop Time 05/29/19 12:38:00 Surgery / Procedure Times Start Time 05/29/19 11:15:00 Stop Time 05/29/19 12:38:00 Last Modified By: Mikel Irvin RN 05/29/19 12:39:19 [facility] IntraOp Case Times Audit 05/29/19 12:39:19 Naval Designer: GISSELLE Modifier: GISSELLE <+> 1 Out Room Time <+> 1 Stop Time <+> 1 Stop Time [facility] IntraOp Cautery Entry 1 ESU Identification Cautery Type Monopolar ESU ID Number [id number] ID Type Hospital Number Cautery Settings Cut Setting 30 Coag Setting 30 ESU Grounding Pad Ground Pad Type Adult Grounding Pad Site Right thigh Grounding Pad Mikel Irvin RN Applied By Grounding Pad Site Dry, Intact, Warm Skin Condition Before Cautery Grounding Pad Site Unchanged Skin Condition After Cautery Last Modified By: Mikel Irvin RN 05/29/19 11:27:43 [facility] IntraOp Communication Entry 1 Communication To Family/Significant other Communication By Mikel Irvin RN Date and Time 05/29/19 11:27:00 Last Modified By: Mikel Irvin RN 05/29/19 11:27:52 [facility] IntraOp Counts Verification Entry 1 Procedure Scrotal Exploration Count Info Count Type Sponge, Sharps, Miscellaneous Counts Verification Baseline/pre-procedure Sequence Count Results Correct, surgeon notified Counts Performed By Count Performed By CT JENKINS (Scrub) Count Performed By Mikel Irvin RN (RN) Last Modified By: Mikel Irvin RN 05/29/19 11:28:08 [facility] IntraOp Counts Final Entry 1 Procedure Scrotal Exploration Final Count Info Count Type Sponge, Sharps, Miscellaneous Counts Verification Skin Closure/end of Sequence procedure Count Results Correct, surgeon notified Counts Performed By Count Performed By CT JENKINS (Scrub) Count Performed By Mikel Irvin RN (RN) Last Modified By: Mikel Irvin RN 05/29/19 11:28:23 [facility] IntraOp Cultures and Spec Summary Entry 1 Cultrures and Specimens Specimen Ordered: Yes Test(s) Blood/Laboratory Requested/Final Disposition Last Modified By: Mikel Irvin RN 05/29/19 11:28:29 [facility] IntraOp Departure from OR Entry 1 Integumentary Assessment Integumentary WDL Assessment WDL Transfer/Handoff Transfer to PACU Phase I Handoff Method Bedside/Face to face, Online nursing summary Post-op Transport Stretcher/Gurney Via Patient Transport MELISSA JIMENEZ MD-ANS, Accompanied by OTHER, ATTENDEE Last Modified By: Mikel Irvin RN 05/29/19 11:28:47 [facility] IntraOp Dressing and Packing Entry 1 Type Packing Wound Dressing Item Kerlix/Leonides Applied By OTHER, ATTENDEE Last Modified By: Mikel Irvin RN 05/29/19 11:29:48 [facility] IntraOp Dressing and Packing Audit 05/29/19 12:38:38 Naval Designer: GISSELLE Modifier: GISSELLE 1 <*> Wound Dressing Item 4x4's [facility] IntraOp Fire Risk Assessment Entry 1 Fire [...] Modified By: Mikel Irvin RN 05/29/19 11:28:55 [facility] IntraOp General Case Telecasting Engineer 1 Case Information OR OR 03 [facility] Case Level 1 Room Verified Yes Wound Class II - Clean-Contaminated Specialty SN Urology Anesthesia Type General ASA Class 3 Diagnosis Preop Diagnosis ABSCESS SCROTUM Postop Same As Preop Yes Postop Diagnosis ABSCESS SCROTUM Last Modified By: Mikel Irvin RN 05/29/19 11:29:56 [facility] IntraOp General Case Data Audit 05/29/19 11:29:56 Naval Designer: GISSELLE Modifier: GISSELLE <+> 1 ASA Class [facility] IntraOp Intraoperative Assessment Entry 1 Handoff Method [...] Modified By: Mikel Irvin RN 05/29/19 11:30:07 [facility] IntraOp Intraoperative Equipment Entry 1 Type Monitoring Equipment Intraop Monitoring Electrocardiogram Three lead placement (ECG) Electrode Placement Blood Pressure Non-Invasive BP Device Source Blood Pressure Arm, right upper Location Pulse Oximeter Hand, left Probe Site Antiembolic Devices Antiembolic Devices Sequential compression device, knee high Antiembolic Device Bilateral Location Scopes Photo/Video Documentation Last Modified By: Mikel Irvin RN 05/29/19 11:30:33 [facility] IntraOp Medication Admin Entry 1 Entry 2 Medication/Irrigant Marcaine 0.25% 30ml Bacitracin 50,00units vial - [id number] powder vial Combo Med List Time Administered Route of LOCAL IN IRRIGATION Administration Dose Dose 15 Unit of Measure ml ml Volume Administered By OTHER, ATTENDEE OTHER, ATTENDEE Procedure Irrigation Irrigant Volume In Irrigant Volume Out Last Modified By: Mikel Irvin RN Pantano, Scott, RN 05/29/19 11:33:55 05/29/19 11:33:55 [facility] IntraOp Patient Positioning Entry 1 Procedure Scrotal Exploration Body Position Supine Left Arm Position Secured on padded arm board Right Arm Position Secured on padded arm board Left Leg Position Uncrossed, parallel Right Leg Position Uncrossed, parallel Feet Uncrossed Yes Pressure Points Yes Checked Positioning Devices Head Rest, Pad, Elbow, Arm Board, Safety Strap, Thighs Positioned By Miekl Irvin RN, JC LUQUE MD-URO, MELISSA JIMENEZ MD-ANS Position Verified Positioning Yes Verified by Anesthesia Positioning Yes Verified by Surgeon Last Modified By: Mikel Irvin RN 05/29/19 11:31:42 [facility] IntraOp Sign In Entry 1 Patient, Site, [...] Modified By: Mikel Irvin RN 05/29/19 11:30:51 [facility] IntraOp Sign Out Entry 1 RN Confirmation [...] Modified By: Mikel Irvin RN 05/29/19 12:24:30 [facility] IntraOp Sign Out Audit 05/29/19 12:40:05 Naval Designer: GISSELLE Modifier: GISSELLE <+> 1 RN Sign Out Signature Date/Time [facility] IntraOp Skin Prep Entry 1 Procedure Scrotal Exploration Prescribed N/A Pre-Surgical Prep Completed Prep Area GENITALIA Intraop Prep Integumentary WDL Assessment WDL Prep Agents Betadine scrub, Betadine solution Prep by Mikel Irvin RN Hair Removal Methods No hair removal performed Last Modified By: Mikel Irvin RN 05/29/19 11:29:33 [facility] IntraOp Surgical Procedures Entry 1 Procedure Scrotal Exploration Primary Procedure Yes Primary Surgeon JC LUQUE MD-URO Start 05/29/19 11:15:00 Stop 05/29/19 12:38:00 Anesthesia Type General Specialty SN Urology Wound Class II - Clean-Contaminated Last Modified By: Mikel Irvin RN 05/29/19 11:31:44 [facility] IntraOp Surgical Procedures Audit 05/29/19 12:39:57 Naval Designer: GISSELLE Modifier: GISSELLE <+> 1 Stop [facility] IntraOp Temp Regulation Devices Entry 1 Temp Regulation Temperature Warm blankets, Forced Regulation Device Air Warming device Temperature Upper body Regulation Site Temperature MELISSA JIMENEZ MD-ANS Regulation Device Applied by Temperature monitored per Regulation Comment anesthesia, fariha hugger available Last Modified By: Mikel Irvin RN 05/29/19 11:30:40 [facility] IntraOP Time Out Entry 1 Procedure to [...] Modified By: Mikel Irvin RN 05/29/19 11:31:23 [facility] IntraOP Time Out Audit 05/29/19 11:31:23 Naval Designer: ENIDNorris Modifier: GISSELLE 1 <+> Beta Asad [...] for Unfinalizing 05/31/19 10:16 WATPOLLYDR Correct Billing documented in this encounter Plan of Treatment Not on file documented as of this encounter Visit Diagnoses Not on filedocumented in this encounter
--- OUTSIDE RECORDS SUMMARY | 2024-10-28 23:44 | XMS_ITS | Encounter Summary ---
Author Organization [facility] Address [address] [place] [address] Care Team Providers Care Counselling Psychologist Name Role Phone Anita Dumas Primary Care Provider [phone] Encounter Details Date Type Department Care Team ([facility] st Contact Info) Description 05/30/2024 Orders Only External Location [address] [place] [address] Provider, External Social History Tobacco Use Types [...] documented as of this encounter Care Teams Counselling Psychologist Relationship Specialty Start Date End Date Anita Dumas PA [address] [place] [address] PCP - General 08/06/22 documented as of this encounter
--- OUTSIDE RECORDS SUMMARY | 2024-10-28 23:44 | XMS_ITS | Encounter Summary ---
Author Organization [employer] Address [address] [place] [address] Care Team Providers Care Radio Interference Investigator Name Role Phone Unavailable Primary Care Provider Unavailabl e Encounter Details Date Type Department Care Team (Late st Contact Info) Description 05/28/2019 Transcribed Document [facility] Family Medicine [address] [place] [address] ProviderMelanie MD [facility] [place], [place] [id number] Social History Tobacco Use Types Packs/Day Years Used Date Smoking Tobacco: Never Assessed Sex and Gender Information Value Date Recorded Sex Assigned at Not on file Legal Sex Male 4:07 PM CDT Gender Identity Not on file Sexual Orientation Not on file documented as of this encounter Miscellaneous Notes * Cerner Conversion Note - Historical ProviderMD - 05/28/2019 6:12 PM MICROSOFT BI DEVELOPER ED Assessment Entered On: 05/28/2019 18:55 EST [...] Communication Barrier : None Primary Language : Malay Any Spiritual/Cultural Needs or Requests : No [...] 18:51 EST Respiratory Respiratory Assessment WDL : [facility] SHAUNNA WEST RN - 05/28/2019 18:51 EST Genitourinary Assessment, ED Genitourinary Assessment WDL : [facility] with exceptions (Comment: pt c/o non-healing wound [...] Neurologic ASMT, ED Neurologic Assessment WDL : [facility] [place] Coma Scale Link : [facility] SHAUNNA WEST RN - 05/28/2019 18:51 EST [place] Coma Felipa Best Motor Response : Obey commands [place] Best Verbal Response : Oriented [place] Eye Opening Response : Spontaneous [place] Coma Score : 15 SHAUNNA WEST RN - 05/28/2019 18:51 EST Electronically signed by Nicci Ortiz Conversion Copier Field Service Technician Cerner at 09/05/2022 2:27 PM CDT documented in this encounter Plan of Treatment Not on file documented as of this encounter Visit Diagnoses Not on filedocumented in this encounter
--- OUTSIDE RECORDS SUMMARY | 2024-10-28 23:44 | XMS_ITS | Encounter Summary ---
Author Organization [employer] Address [address] [place] [address] Care Team Providers Care Reed Fixer Name Role Phone Unavailable Primary Care Provider Unavailabl e Encounter Details Date Type Department Care Team (Late st Contact Info) Description 05/28/2019 Transcribed Document [facility] [place] [address] [place] [address] ProviderMelanie MD [address] [place] [address] Social History Tobacco Use Types Packs/Day Years Used Date Smoking Tobacco: Never Assessed Sex and Gender Information Value Date Recorded Sex Assigned at Not on file Legal Sex Male 4:07 PM CDT Gender Identity Not on file Sexual Orientation Not on file documented as of this encounter Miscellaneous Notes * Cerner Conversion Note - Historical ProviderMD - 05/28/2019 8:37 PM CUSTOMER CARE ASSISTANT Pain Assessment Entered On: 05/29/2019 23:38 EST Performed On: 05/29/2019 21:55 EST by Jenna Vargas Lpn Intervention Information: HYDROmorphone Performed by Jenna Vargas Lpn on 05/29/2019 21:25:00 EST HYDROmorphone,1mg IV Push,Left Hand,Pain (Severe 7-10) Pain Assessment Pain Assessment : Follow-up assessment Pain Scale Goal : 3 Pain Scale Used : 0-10 Scale Jenna Vargas Lpn - 05/29/2019 23:38 EST Electronically signed by Nicci Ortiz Conversion Nursing Staff Development Coordinator Cerner at 09/05/2022 2:28 PM CDT documented in this encounter Plan of Treatment Not on file documented as of this encounter Visit Diagnoses Not on filedocumented in this encounter
--- OUTSIDE RECORDS SUMMARY | 2024-10-28 23:44 | XMS_ITS | Encounter Summary ---
Author Organization [facility] Address [address] [place] [address] Care Team Providers Care Candy Forming Machine Operator Name Role Phone Anita Dumas Primary Care Provider [phone] Encounter Details Date Type Department Care Team ([facility] st Contact Info) Description 03/28/2024 Orders Only External Location [address] [place] [address] Provider, External Social History Tobacco Use Types [...] documented as of this encounter Care Teams Candy Forming Machine Operator Relationship Specialty Start Date End Date Anita Dumas PA [address] [place] [address] PCP - General 08/06/22 documented as of this encounter
--- OUTSIDE RECORDS SUMMARY | 2024-10-28 23:44 | XMS_ITS | Encounter Summary ---
Author Organization [employer] Address [address] [place] [address] Care Team Providers Care Flight Superintendent Name Role Phone Unavailable Primary Care Provider Unavailabl e Encounter Details Date Type Department Care Team (Late st Contact Info) Description 05/29/2019 Transcribed Document [facility] [place] [address] [place] [address] ProviderMelanie MD [address] [place] [address] Social History Tobacco Use Types Packs/Day Years Used Date Smoking Tobacco: Never Assessed Sex and Gender Information Value Date Recorded Sex Assigned at Not on file Legal Sex Male 4:07 PM CDT Gender Identity Not on file Sexual Orientation Not on file documented as of this encounter Miscellaneous Notes * Cerner Conversion Note - Melanie ProviderMD - 05/29/2019 1:38 PM TELECOMMUNICATIONS NETWORK ENGINEER DATE OF PROCEDURE: 05/29/2019 SURGEON: Claudy Pro [...] inpatient stay for antibiotics and wound care. /[id number] DICTATED BY: Nicolasa Arguello MD for Claudy Pro MD MD LOUIS Martinez/AQ / LOUIS / ANGELAL /[id number] Electronically signed by [facility], [facility] Conversion Broker Assistant Cerner at 09/05/2022 2:31 PM CDT documented in this encounter Plan of Treatment Not on file documented as of this encounter Visit Diagnoses Not on filedocumented in this encounter
--- OUTSIDE RECORDS SUMMARY | 2024-10-28 23:45 | XMS_ITS | Encounter Summary ---
Author Organization [employer] Address [address] [place] [address] Care Team Providers Care Automotive Sales Associate Name Role Phone Unavailable Primary Care Provider Unavailabl e Encounter Details Date Type Department Care Team (Late st Contact Info) Description 06/01/2019 Transcribed Document [facility] [place] [address] [place] [address] ProviderMelanie MD [facility] [place] [address] Social History Tobacco Use Types Packs/Day Years Used Date Smoking Tobacco: Never Assessed Sex and Gender Information Value Date Recorded Sex Assigned at Not on file Legal Sex Male 4:07 PM CDT Gender Identity Not on file Sexual Orientation Not on file documented as of this encounter Miscellaneous Notes * Cerner Conversion Note - Melanie Grider MD - 06/01/2019 4:58 PM FENCE MAKING MACHINE OPERATOR Patient Education Materials Follows: Negative Pressure Wound [...] to treat your wound at home. ??? [place] hospital stay. ??? Less pain. What are [...] 04/16/2009 Document Revised: 03/31/2017 Document Reviewed: 02/07/2016 [employer] Interactive Patient Education ? 2019 [employer] Negative Pressure Wound Therapy Dressing Care [...] open and ready to use. ? Hand top closer. ? Wound cleanser or saltwater solution (saline) [...] and water are not available, use hand top closer. ??? Put on gloves. ??? Turn off [...] and water are not available, use hand top closer. Cleaning your wound ??? Follow your health care provider's instructions on how to clean your wound. This may include using a saline or recommended wound cleanser. ??? Do not use [id number] medicated or antiseptic creams, sprays, liquids, or [...] and water are not available, use hand top closer. Applying the dressing ??? Apply a skin [...] and water are not available, use hand top closer. ??? Attach the suction and turn the [...] 07/26/2012 Document Revised: 05/29/2016 Document Reviewed: 02/07/2016 [employer] Interactive Patient Education ? 2019 [employer] documented in this encounter Plan of Treatment Not on file documented as of this encounter Visit Diagnoses Not on filedocumented in this encounter
--- OUTSIDE RECORDS SUMMARY | 2024-10-28 23:45 | XMS_ITS | Encounter Summary ---
Author Organization [employer] Address [address] [place] [address] Care Team Providers Care Air Brake Rigger Name Role Phone Unavailable Primary Care Provider Unavailabl e Encounter Details Date Type Department Care Team (Late st Contact Info) Description 05/30/2019 Transcribed Document [facility] [place] Family Medicine [address] [place] [address] ProviderMelanie MD [address] [place] [id number] Social History Tobacco Use Types Packs/Day Years Used Date Smoking Tobacco: Never Assessed Sex and Gender Information Value Date Recorded Sex Assigned at Not on file Legal Sex Male 4:07 PM CDT Gender Identity Not on file Sexual Orientation Not on file documented as of this encounter Miscellaneous Notes * Cerner Conversion Note - Historical ProviderMD - 05/30/2019 12:17 PM SUPERVISOR WORD PROCESSING WO Inpatient Documentation Entered On: 05/30/2019 12:18 [...] - 05/30/2019 12:17 EST Electronically signed by [facility] Sjh Conversion Print Machine Operator Cerner at 09/05/2022 2:24 PM CDT documented in this encounter Plan of Treatment Not on file documented as of this encounter Visit Diagnoses Not on filedocumented in this encounter
--- OUTSIDE RECORDS SUMMARY | 2024-10-28 23:45 | XMS_ITS | Encounter Summary ---
Author Organization [employer] Address [address] [place] [address] Care Team Providers Care Brancher Name Role Phone Unavailable Primary Care Provider Unavailabl e Encounter Details Date Type Department Care Team (Late st Contact Info) Description 06/01/2019 Transcribed Document [facility] [place] [address] [place] [address] ProviderMelanie MD [facility] [place] [address] Social History Tobacco Use Types Packs/Day Years Used Date Smoking Tobacco: Never Assessed Sex and Gender Information Value Date Recorded Sex Assigned at Not on file Legal Sex Male 4:07 PM CDT Gender Identity Not on file Sexual Orientation Not on file documented as of this encounter Miscellaneous Notes * Cerner Conversion Note - Melanie ProviderMD - 06/01/2019 4:10 PM SAFE DEPOSIT BOX RENTAL CLERK Final Discharge Planning Entered On: 06/01/2019 16:12 EST Performed On: 06/01/2019 16:10 EST by LYNDSEY GAY RN-Labor Service Representative Final Discharge Planning Discharge Arrangements : Patient Post-Acute Information Patient Name: TERRI VARGAS Gender: Male : 62 Age: 59 Years Kasiaspbenson Referral(s): Service: Organization: Business Address: Phone Number: [facility] [address], [address], [place], [address] Patient Offered Choice/Affiliations Explained : [...] Services (Related/SOC within 3 days)-06 LYNDSEY GAY RN-Labor Service Representative - 06/01/2019 16:10 EST Final Narrative Note Final Narrative Note : Discharged to home, agreeable. Updates with vac order sent to [facility]. Wound vac to be delivered to room at approximately 1730. No other needs verbalized at this time. LYNDSEY GAY, ANAT-Labor Service Representative - 06/01/2019 16:10 EST documented in this encounter Plan of Treatment Not on file documented as of this encounter Visit Diagnoses Not on filedocumented in this encounter
--- OUTSIDE RECORDS SUMMARY | 2024-10-28 23:45 | XMS_ITS | Encounter Summary ---
Author Organization [employer] Address [address] [place] [address] Care Team Providers Care Kettle Cook Name Role Phone Unavailable Primary Care Provider Unavailabl e Encounter Details Date Type Department Care Team (Late st Contact Info) Description 06/01/2019 Transcribed Document [facility] Family Medicine [address] [place] [address] ProviderMelanie MD [address] [place] [address] Social History Tobacco Use Types Packs/Day Years Used Date Smoking Tobacco: Never Assessed Sex and Gender Information Value Date Recorded Sex Assigned at Not on file Legal Sex Male 4:07 PM CDT Gender Identity Not on file Sexual Orientation Not on file documented as of this encounter Miscellaneous Notes * Cerner Conversion Note - Melanie ProviderMD - 06/01/2019 4:[address]STRUCTION INSPECTOR Patient: TERRI MOREL Age: 59 years Sex: [...] the wound and he has been taking [place] Percocet and morphine at home with no [...] clinic Electronically signed by French Ortiz Conversion Electrical Assembly Supervisor Cerner at 09/05/2022 2:24 PM CDT documented in this encounter Plan of Treatment Not on file documented as of this encounter Visit Diagnoses Not on filedocumented in this encounter
--- OUTSIDE RECORDS SUMMARY | 2024-10-28 23:45 | XMS_ITS | Encounter Summary ---
Author Organization [employer] Address [address] [place] [address] Care Team Providers Care Production Supervisor Off Shift Name Role Phone Unavailable Primary Care Provider Unavailabl e Encounter Details Date Type Department Care Team (Late st Contact Info) Description 05/30/2019 Transcribed Document [facility] [place] Medicine [address] [place] [address] ProviderMelanie MD [address] [place] [address] Social History Tobacco Use Types Packs/Day Years Used Date Smoking Tobacco: Never Assessed Sex and Gender Information Value Date Recorded Sex Assigned at Not on file Legal Sex Male 4:07 PM CDT Gender Identity Not on file Sexual Orientation Not on file documented as of this encounter Miscellaneous Notes * Cerner Conversion Note - Melanie ProviderMD - 05/30/2019 12:42 PM WIRE GALVANIZER Patient: TERRI MOREL Age: 59 years Sex: [...] the wound and he has been taking [place] Percocet and morphine at home with no [...] process/pending Rad: Radiology Results (Last 48 hours) [id number] -- 05/28/2019 20:28 CR Chest 1 Vw [...]
--- OUTSIDE RECORDS SUMMARY | 2024-10-28 23:45 | XMS_ITS | Encounter Summary ---
Author Organization [employer] Address [address] [place] [address] Care Team Providers Care Esthetician/Spa Coordinator Name Role Phone Unavailable Primary Care Provider Unavailabl e Encounter Details Date Type Department Care Team (Late st Contact Info) Description 06/01/2019 Transcribed Document [facility] [place] Family Medicine [address] [place] [address] ProviderMelanie MD [address] [place] [address] Social History Tobacco Use Types Packs/Day Years Used Date Smoking Tobacco: Never Assessed Sex and Gender Information Value Date Recorded Sex Assigned at Not on file Legal Sex Male 4:07 PM CDT Gender Identity Not on file Sexual Orientation Not on file documented as of this encounter Miscellaneous Notes * Cerner Conversion Note - Historical ProviderMD - 06/01/2019 4:50 PM CONCRETE FORM SETTER Stroke/Warfarin Instructions Entered On: 06/01/2019 16:50 EST [...]
--- OUTSIDE RECORDS SUMMARY | 2024-10-28 23:45 | XMS_ITS | Encounter Summary ---
Author Organization [employer] Address [address] [place] [address] Care Team Providers Care Color Expert Name Role Phone Unavailable Primary Care Provider Unavailabl e Encounter Details Date Type Department Care Team (Late st Contact Info) Description 05/31/[address] [facility] [place] [address] ProviderMelanie MD [address] [place] [id number] Social History Tobacco Use Types Packs/Day Years Used Date Smoking Tobacco: Never Assessed Sex and Gender Information Value Date Recorded Sex Assigned at Not on file Legal Sex Male 4:07 PM CDT Gender Identity Not on file Sexual Orientation Not on file documented as of this encounter Miscellaneous Notes * Cerner Conversion Note - Melanie ProviderMD - 05/31/2019 3:07 PM CREDIT COLLECTIONS REP WOCN Inpatient Documentation Entered On: 05/31/2019 15:13 [...] NPWT to scrotum s/p exploration and debridement. PAYROLL MACHINE OPERATOR used by jag. Soaked Gauze with saline [...] Ulcer WOCN Wound Pressure Ulcer Documentation : [id number] Abnormality: Scrotum Posterior on 05/31/2019 15:05 by Jenise Ortiz Rn-Enterostomal I/W/A Present on Admission to Hospital: Yes I/W/A Type: Incision, open I/W/A Dressing Status: Intact I/W/A Dressing Activity: Assessed, Dressing changed I/W/A Wound Date of Dressing Change: :0.227006:0:0 I/W/A Wound Bed Description: Full-thickness, Undermining I/W/A [...] Initial set-up application NPWT Inpatient Start Date: [id number]:[id number]:0:0 NPWT Device Used: Renasys Type of Foam/Gauze [...] 05/31/2019 15:07 EST Electronically signed by Angel, [facility] Conversion Food And Beverage Analyst Cerner at 09/05/2022 2:03 PM CDT documented in this encounter Plan of Treatment Not on file documented as of this encounter Visit Diagnoses Not on filedocumented in this encounter
--- OUTSIDE RECORDS SUMMARY | 2024-10-28 23:45 | XMS_ITS | Data Portability ---
Author Organization [facility]H [facility] Address [address] [facility] [address] [place] [address] Care Team Providers Care Benzene Washer Name Role Phone FADY WILLIS Primary Care [...] Plan: Arrange wound VAC change through the [facility] wound care nurse. Complete course of [...] Augmentin 875 mg-125 mg tablet 2019 020 [facility] #[id number], [address] [place], [id number], 1 11:00:44 Percocet 5 mg-325 mg tablet 2019 020 [facility] #[id number], [address] [place], [id number], 1 11:02:37 Augmentin 875 mg-125 mg tablet 2019 020 [facility] #[id number], [address] [place], [id number], 1 11:00:44 Percocet 5 mg-325 mg tablet 2019 020 [facility] #[id number], [address], [id number], 1 11:02:37 Patient TargetsNo targets recorded. Patient InstructionsNo instructions recorded. Reason for Referral None Reported. Results Created Date Observation Date Name Description Value Unit Range Abnormal Flag Note LastModifiedBy Organization Detail LastModifiedTime 05/16/2005/16/2019 urina lysis , dipst ick, auto Unknown Analyte Yellow Not Available [facility] [address] [place], [address], 05/16/2019 07:54:25 05/16/2005/16/2019 urina lysis , dipst ick, auto Unknown Analyte Clear Not Available [facility] [address] [place], [address], 05/16/2019 07:54:25 05/16/20 19 05/16/2019 urina lysis , dipst ick, auto Unknown Analyte 1.015 Not Available [facility] [address] [place], [address], 05/16/2019 07:54:25 05/16/2005/16/2019 urina lysis , dipst ick, auto Unknown Analyte 1.003 - 1.035 Not Available [facility] [address] [place], [address], 05/16/2019 07:54:25 05/16/20 19 05/16/2019 urina lysis , dipst ick, auto Unknown Analyte 5.0 Not Available [facility] [address] [place], [address], 05/16/2019 07:54:25 05/16/2005/16/2019 urina lysis , dipst ick, auto Unknown Analyte 5.0 - 8.0 Not Available [facility] [address] [place] [address], [address], 05/16/2019 07:54:25 05/16/2005/16/2019 urina lysis , dipst ick, auto Unknown Analyte Negati ve Not Available [facility] [address] [place] [address], [address], 05/16/2019 07:54:25 05/16/2005/16/2019 urina lysis , dipst ick, auto Unknown Analyte Negati ve Not Available [facility] [address] [place] [address], [address], 05/16/2019 07:54:25 05/16/2005/16/2019 urina lysis , dipst ick, auto Unknown Analyte Negati ve Not Available [facility] [address] [place] [address], [address], 05/16/2019 07:54:25 05/16/2005/16/2019 urina lysis , dipst ick, auto Unknown Analyte Negati ve Not Available [facility] [address] [place], [address], 05/16/2019 07:54:25 05/16/2005/16/2019 urina lysis , dipst ick, auto Unknown Analyte Negtiv e Not Available [facility] [address] [place] [address], [address], 05/16/2019 07:54:25 05/16/2005/16/2019 urina lysis , dipst ick, auto Unknown Analyte Negati ve - Trace Not Available [facility] [address] [place] [address], [address], 05/16/2019 07:54:25 05/16/2005/16/2019 urina lysis , dipst ick, auto Unknown Analyte Normal Not Available [facility] [address] [place] [address], [address], 05/16/2019 07:54:25 05/16/2005/16/2019 urina lysis , dipst ick, auto Unknown Analyte Normal Not Available [facility] [address] [place] [address], [address], 05/16/2019 07:54:25 05/16/2005/16/2019 urina lysis , dipst ick, auto Unknown Analyte Negati ve Not Available [facility] [address] [place] [address], [address], 05/16/2019 07:54:25 05/16/2005/16/2019 urina lysis , dipst ick, auto Unknown Analyte Negati ve Not Available [facility] [address] [place] [address], [address], 05/16/2019 07:54:25 05/16/2005/16/2019 urina lysis , dipst ick, auto Unknown Analyte Normal Not Available [facility] [address] [place], [address], 05/16/2019 07:54:25 05/16/20 19 05/16/2019 urina lysis , dipst ick, auto Unknown Analyte Normal - 1mg/dl Not Available [facility] [address] [place] [address], [address], 05/16/2019 07:54:25 05/16/2005/16/2019 urina lysis , dipst ick, auto Unknown Analyte Negati ve Not Available [facility] [address] [place] [address], [address], 05/16/2019 07:54:25 05/16/2005/16/2019 urina lysis , dipst ick, auto Unknown Analyte Negati ve Not Available [facility] [address] [place] [address], [address], 05/16/2019 07:54:25 05/16/2005/16/2019 urina lysis , dipst ick, auto Unknown Analyte Negati ve Not Available [facility] [address] [place] [address], [address], 05/16/2019 07:54:25 05/16/20 19 05/16/2019 urina lysis , dipst ick, auto Unknown Analyte Negati ve Not Available [facility] [address] [place] [address], [address], 05/16/2019 07:54:25 05/16/20 19 05/16/2019 urina lysis , dipst ick, auto Unknown Analyte Clean Catch Not Available [facility] [address] [place], [address], 05/16/2019 07:54:25 05/16/20 19 05/16/2019 urina lysis , dipst ick, auto Unknown Analyte Automa carlos Not Available [facility] [address] [place] [address], [address], 05/16/2019 07:54:25 05/24/1905/24/2019 urina lysis , dipst ick, auto Unknown Analyte Yellow Not Available [facility] [address] [place] [address], [address], 05/24/2019 10:02:15 05/24/19 20 05/24/2019 urina lysis , dipst ick, auto Unknown Analyte Clear Not Available [facility] [address] [place] [address], [address], 05/24/2019 10:02:15 05/24/1905/24/2019 urina lysis , dipst ick, auto Unknown Analyte 1.010 Not Available [facility] [address] [place] [address], [address], 05/24/2019 10:02:15 05/24/1905/24/2019 urina lysis , dipst ick, auto Unknown Analyte 1.003 - 1.035 Not Available [address], [address], 05/24/2019 10:02:15 05/24/19 20 05/24/2019 urina lysis , dipst ick, auto Unknown Analyte 5.0 Not Available [facility] [address], [address], 05/24/2019 10:02:15 05/24/1905/24/2019 urina lysis , dipst ick, auto Unknown Analyte 5.0 - 8.0 Not Available [facility] [address], [address], 05/24/2019 10:02:15 05/24/1905/24/2019 urina lysis , dipst ick, auto Unknown Analyte Negati ve Not Available [facility] [address], [address], 05/24/2019 10:02:15 05/24/19 20 05/24/2019 urina lysis , dipst ick, auto Unknown Analyte Negati ve Not Available [facility] [address] [place] [address], [address], 05/24/2019 10:02:15 05/24/19 20 05/24/2019 urina lysis , dipst ick, auto Unknown Analyte Negati ve Not Available [facility] [address] [place] [address], [address], 05/24/2019 10:02:15 05/24/19 20 05/24/2019 urina lysis , dipst ick, auto Unknown Analyte Negtiv e Not Available [facility] [address], [address], 05/24/2019 10:02:15 05/24/19 20 05/24/2019 urina lysis , dipst ick, auto Unknown Analyte Negati ve - Trace Not Available [facility] [address], [address], 05/24/2019 10:02:15 05/24/19 20 05/24/2019 urina lysis , dipst ick, auto Unknown Analyte Normal Not Available [facility] [address] [place] [address], [address], 05/24/2019 10:02:15 05/24/19 20 05/24/2019 urina lysis , dipst ick, auto Unknown Analyte Normal Not Available [facility] [address] [place] [address], [address], 05/24/2019 10:02:15 05/24/19 20 05/24/2019 urina lysis , dipst ick, auto Unknown Analyte Negati ve Not Available [facility] [address], [address], 05/24/2019 10:02:15 05/24/19 20 05/24/2019 urina lysis , dipst ick, auto Unknown Analyte Negati ve Not Available [facility] [address] [place] [address], [address], 05/24/2019 10:02:15 05/24/19 20 05/24/2019 urina lysis , dipst ick, auto Unknown Analyte Normal Not Available [facility] [address] [place] [address], [address], 05/24/2019 10:02:15 05/24/19 20 05/24/2019 urina lysis , dipst ick, auto Unknown Analyte Normal - 1mg/dl Not Available [facility] [address], [address], 05/24/2019 10:02:15 05/24/19 20 05/24/2019 urina lysis , dipst ick, auto Unknown Analyte Negati ve Not Available [facility] [address], [address], 05/24/2019 10:02:15 05/24/19 20 05/24/2019 urina lysis , dipst ick, auto Unknown Analyte Negati ve Not Available [facility] [address], [address], 05/24/2019 10:02:15 05/24/19 20 05/24/2019 urina lysis , dipst ick, auto Unknown Analyte Negati ve Not Available [facility] [address], [address], 05/24/2019 10:02:15 05/24/19 20 05/24/2019 urina lysis , dipst ick, auto Unknown Analyte Negati ve Not Available [facility] [address], [address], 05/24/2019 10:02:15 05/24/19 20 05/24/2019 urina lysis , dipst ick, auto Unknown Analyte Clean Catch Not Available [facility] [address] [place] [address], [address], 05/24/2019 10:02:15 05/24/19 20 05/24/2019 urina lysis , dipst ick, auto Unknown Analyte Visual Not Available [facility] [address] [place] [address], [address], 05/24/2019 10:02:15 06/06/19 20 06/06/2019 urina lysis , dipst ick, auto Unknown Analyte Yellow Not Available [facility] [address], [address], 06/06/2019 07:36:23 06/06/1906/06/2019 urina lysis , dipst ick, auto Unknown Analyte Clear Not Available [address], [address], 06/06/2019 07:36:23 06/06/19 20 06/06/2019 urina lysis , dipst ick, auto Unknown Analyte 1.005 Not Available [address], [address], 06/06/2019 07:36:23 06/06/19 20 06/06/2019 urina lysis , dipst ick, auto Unknown Analyte 6.0 Not Available [facility] [address], [address], 06/06/2019 07:36:23 06/06/19 20 06/06/2019 urina lysis , dipst ick, auto Unknown Analyte Negati ve Not Available [address], [address], 06/06/2019 07:36:23 06/06/19 20 06/06/2019 urina lysis , dipst ick, auto Unknown Analyte Negati ve Not Available [address], [address], 06/06/2019 07:36:23 06/06/19 20 06/06/2019 urina lysis , dipst ick, auto Unknown Analyte Negtiv e Not Available [facility] [address] [place], [address], 06/06/2019 07:36:23 06/06/1906/06/2019 urina lysis , dipst ick, auto Unknown Analyte 250 mg/dl Not Available [facility] [address] [place], [address], 06/06/2019 07:36:23 06/06/1906/06/2019 urina lysis , dipst ick, auto Unknown Analyte Negati ve Not Available [facility] [address] [place] [address], [address], 06/06/2019 07:36:23 06/06/19 20 06/06/2019 urina lysis , dipst ick, auto Unknown Analyte Normal Not Available [facility] [address] [place], [address], 06/06/2019 07:36:23 06/06/1906/06/2019 urina lysis , dipst ick, auto Unknown Analyte Negati ve Not Available [facility] [address] [place] [address], [address], 06/06/2019 07:36:23 06/06/1906/06/2019 urina lysis , dipst ick, auto Unknown Analyte Negati ve Not Available [facility] [address] [place] [address], [address], 06/06/2019 07:36:23 06/06/1906/06/2019 urina lysis , dipst ick, auto Unknown Analyte Clean Catch Not Available [facility] [address] [place] [address], [address], 06/06/2019 07:36:23 06/06/19 20 06/06/2019 urina lysis , dipst ick, auto Unknown Analyte Automa carlos Not Available [facility] [address], [address], 06/06/2019 07:36:23 06/29/19 20 06/29/2019 urina lysis , dipst ick, auto Unknown Analyte Yellow Not Available [facility] [address], [address], 06/29/2019 10:49:43 06/29/19 20 06/29/2019 urina lysis , dipst ick, auto Unknown Analyte Clear Not Available [facility] [address], [address], 06/29/2019 10:49:43 06/29/19 20 06/29/2019 urina lysis , dipst ick, auto Unknown Analyte 1.015 Not Available [facility] [address], [address], 06/29/2019 10:49:43 06/29/19 20 06/29/2019 urina lysis , dipst ick, auto Unknown Analyte 1.003 - 1.035 Not Available [address], [address], 06/29/2019 10:49:43 06/29/19 20 06/29/2019 urina lysis , dipst ick, auto Unknown Analyte 5.0 Not Available [facility] [address], [address], 06/29/2019 10:49:43 06/29/19 20 06/29/2019 urina lysis , dipst ick, auto Unknown Analyte 5.0 - 8.0 Not Available [address], [address], 06/29/2019 10:49:43 06/29/19 20 06/29/2019 urina lysis , dipst ick, auto Unknown Analyte Negati ve Not Available [facility] [address], [address], 06/29/2019 10:49:43 06/29/19 20 06/29/2019 urina lysis , dipst ick, auto Unknown Analyte Negati ve Not Available [facility] [address], [address], 06/29/2019 10:49:43 06/29/19 20 06/29/2019 urina lysis , dipst ick, auto Unknown Analyte Negati ve Not Available [facility] [address], [address], 06/29/2019 10:49:43 06/29/19 20 06/29/2019 urina lysis , dipst ick, auto Unknown Analyte Negati ve Not Available [facility] [address], [address], 06/29/2019 10:49:43 06/29/19 20 06/29/2019 urina lysis , dipst ick, auto Unknown Analyte Negtiv e Not Available [address], [address], 06/29/2019 10:49:43 06/29/19 20 06/29/2019 urina lysis , dipst ick, auto Unknown Analyte Negati ve - Trace Not Available [facility] [address], [address], 06/29/2019 10:49:43 06/29/19 20 06/29/2019 urina lysis , dipst ick, auto Unknown Analyte Normal Not Available [facility] [address], [address], 06/29/2019 10:49:43 06/29/19 20 06/29/2019 urina lysis , dipst ick, auto Unknown Analyte Normal Not Available [facility] [address] [place], [address], 06/29/2019 10:49:43 06/29/19 20 06/29/2019 urina lysis , dipst ick, auto Unknown Analyte Negati ve Not Available [facility] [address] [place] [address], [address], 06/29/2019 10:49:43 06/29/19 20 06/29/2019 urina lysis , dipst ick, auto Unknown Analyte Negati ve Not Available [facility] [address], [address], 06/29/2019 10:49:43 06/29/19 20 06/29/2019 urina lysis , dipst ick, auto Unknown Analyte Normal Not Available [facility] [address], [address], 06/29/2019 10:49:43 06/29/19 20 06/29/2019 urina lysis , dipst ick, auto Unknown Analyte Normal - 1mg/dl Not Available [facility] [address], [address], 06/29/2019 10:49:43 06/29/19 20 06/29/2019 urina lysis , dipst ick, auto Unknown Analyte Negati ve Not Available [facility] [address], [address], 06/29/2019 10:49:43 06/29/19 20 06/29/2019 urina lysis , dipst ick, auto Unknown Analyte Negati ve Not Available [facility] [address], [address], 06/29/2019 10:49:43 06/29/19 20 06/29/2019 urina lysis , dipst ick, auto Unknown Analyte Negati ve Not Available [facility] [address] [place], [address], 06/29/2019 10:49:43 06/29/19 20 06/29/2019 urina lysis , dipst ick, auto Unknown Analyte Negati ve Not Available [facility] [address] [place], [address], 06/29/2019 10:49:43 06/29/19 20 06/29/2019 urina lysis , dipst ick, auto Unknown Analyte Clean Catch Not Available [facility] [address] [place], [address], 06/29/2019 10:49:43 06/29/19 20 06/29/2019 urina lysis , dipst ick, auto Unknown Analyte Automa carlos Not Available [facility] [address] [place], [address], 06/29/2019 10:49:43 Result Notes None recorded. Problems Name Problem SNOMED Code Status Onset Date Resolution Date Notes Provider Name and Address Organization Details Recorded Time Mixed conductiv e AND sensorine ural hearing loss 39120248 Active 2015 From Automated Load;Prov ider: Dorian Hurd III tatus: Active Not Available [facility] 6 09:39:57 Otitis externa 0709422 Active 2015 Provider: Dorian Hurd III tatus: Active Not Available [facility] 6 09:39:57 Otitis externa of right ear 87648921552 61807 Active 2015 From Automated Load;Prov ider: Dorian Hurd III tatus: Active Not Available [facility] 6 09:39:57 Otorrhea 27319566 Active 2015 From Automated Load;Prov ider: Dorian Hurd III tatus: Active Not Available [facility] 6 09:39:57 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 Procedures Surgical History Date Name Laterality Status Provider Name and Address Organization Details Recorded Time 06/20/19 20 repair of scrotum completed CLAUDY LUQUE MD [address] [place] [address], [address], [facility] 06/20/2019 16:56:31 05/29/19 20 Scrotal surgery completed CLAUDY LUQUE MD [address] [place] [address], [address], [facility] 06/20/2019 16:57:39 Heart Surgery completed Fani Huffman [facility] 02/08/2019 16:35:08 Hernia Repair completed CLAUDY LUQUE MD [address] [place] [address], [address], [facility] 04/04/2019 14:53:49 Orchiectomy completed CLAUDY LUQUE MD [address] [place] [address], [address], [facility] 04/04/2019 14:54:02 Hydrocele Repair completed CLAUDY LUQUE MD [address] [place] [address], [address], [facility] 04/04/2019 14:54:16 Mastoidectomy completed Janet Stoll [facility] 12/14/2020 11:10:11 Imaging Results None recorded. Procedure Notes None recorded. Medical Equipment None Reported. Allergies Allergen ID Allergen Name Allergen Category Reaction Reaction Severity Criticality Documentation Date Start Date Code Code System Note Provider Name and Address Organization Details Recorded Time 640095 acetamino phen / oxycodone medicatio n nausea Not available Not available 02/08/2019 54442 3 RxNorm He can take 5 mg dose CLAUDY LUQUE MD [address] [place] [address] [place], [address], [facility] 9 15:06:12 960619 Bactrim medicatio n dizziness respirato ry distress Not available Not available Not available 02/11/2019 33814 9 RxNorm CLAUDY LUQUE MD [facility] [place], [address], [facility] 9 07:45:25 Medications Name Sig Start [...] ne propionat e 50 mcg/actua tion nasal spray,[facility] 12/14 completed Not Available Not Available Not Available metformin ER 500 mg tablet,ex tended release 24 hr 12/14 completed Not Available Not Available Not Available ezetimibe 10 mg tablet TAKE 1 TABLET BY MOUTH ONCE DAILY 12/14 completed Not Available Not Available Not Available Ciprodex 0.3 %-0.1 % ear drops,[facility] 02/08 completed Not Available Not Available [...] YOU DIDN T RECEIVE INSTRUCT IONS CALL [phone] 12/14 completed Not Available Not Available Not [...] Updated DateTime 05/24/2019 177.8 cm 33.9 kg/m2 642546.8 g 86 /min [facility] 05/24/2019 10:02:36 Date Recorded Body height Body mass index (BMI) Body weight Provider Name and Address Organization Details Last Updated DateTime 06/06/2019 177.8 cm 33.9 kg/m2 612046.8 g Sarah Mora [facility] 06/06/2019 07:36:09 Date Recorded Body height Body mass index (BMI) Body weight Heart rate Provider Name and Address Organization Details Last Updated DateTime 06/13/2019 177.8 cm 33.9 kg/m2 771730.8 g 86 /min [facility] 06/13/2019 07:50:01 Date Recorded Body height Body mass index (BMI) Body weight Provider Name and Address Organization Details Last Updated DateTime 06/29/2019 177.8 cm 33.9 kg/m2 617468.8 g [facility] 06/29/2019 10:49:27 Date Recorded Body weight Body temperature Body mass index (BMI) Body height Heart rate Systolic blood pressure Diastolic blood pressure Provider Name and Address Organization Details Last Updated DateTime 1 28721.3 2 g 97.7 [degF] 31.6 kg/m2 177.8 cm 75 /min 131 mm[Hg] 69 mm[Hg] Janet Stoll [facility] 1 11:09:26 Social History Question Answer Notes LastModified by Organizat ion Details LastModified Time Tobacco Smoking Status Current Every Day Smoker [facility] 12/14/2020 11:04:32 Marital Status Informatio n not [...] SNOMED-CT Code Diagnosis ICD10 Code Diagnosis Note [id number] CLAUDY LUQUE MD [facility]OLOGY [facility] [address] [place] [address] 02/08/2019 15:22:29 02/09/2019 07:11:35 Epididymitis 19848381 N45.1 Hydrocele 15883592 N43.3 [id number] CLAUDY LUQUE MD [facility]OLOGY [facility] [address] [place] [address] 03/01/2019 07:35:36 03/01/2019 08:32:45 Epididymitis 02275319 N45.1 Hydrocele 41161700 N43.3 [id number] CLAUDY LUQUE MD SURGERY SCHEDULE [address] [place] [address] 1 04/04/2019 11:38:23 04/04/2019 11:39:05 Hydrocele of testis 41544413 N43.3 [id number] CLAUDY LUQUE MD [facility]OLOGY [facility] [address] [place] [address] 1 04/22/2019 07:42:36 04/22/2019 08:20:59 Epididymitis 64305217 N45.1 Hydrocele 54616721 N43.3 Hematoma of scrotum 8996 6002 M79.81 [id number] CLAUDY LUQUE MD [facility]OLOGY [facility] [address] [place] [address] 1 05/16/2019 07:33:42 05/16/2019 08:55:46 Hydrocele 59511122 N43.3 Hematoma of scrotum 8996 6002 M79.81 Orchitis a nd epididymitis 669456534 N45.3 [id number] CLAUDY LUQUE MD [facility]OLOGY [facility] [address] [place] [address] 1 05/24/2019 09:09:43 05/24/2019 10:36:10 Orchitis and epididymitis 187595808 N45.3 Hydrocele 56113499 N43.3 Hematoma of scrotum 8996 6002 M79.81 [id number] CLAUDY LUQUE MD [facility]OLOGY [facility] [address] [place] [address] 1 06/06/2019 07:34:58 06/06/2019 08:50:46 Orchitis and epididymitis 417270462 N45.3 Abscess of scrotum 68969 006 N49.2 [id number] CLAUDY LUQUE MD [facility]OLOGY [facility] [address] [place] [address] 1 06/13/2019 07:45:46 06/13/2019 08:18:58 Orchitis and epididymitis 405983141 N45.3 Abscess of scrotum 11346 006 N49.2 [id number] CLAUDY LUQUE MD SURGERY SCHEDULE [address] [place] [address] 1 06/20/2019 13:07:55 06/20/2019 13:09:42 Disorder of scrotum 64242806 N50.9 Orchitis a nd epididymitis 257696883 N45.3 [id number] CLAUDY LUQUE MD UROLOGY [facility] [address] [place] [address] 06/29/2019 10:43:58 06/29/2019 12:20:35 Orchitis and epididymitis 729233719 N45.3 Abscess of scrotum 15697 006 N49.2 Health Concerns Section Related Observation LastModified by Organization Detai ls LastModified Time None Recorded Concern Status LastModified by Organization Details LastModified Time None Recorded Advance Directives Directive None Recorded Payers Insurance Date Sequence Insurance Name Policy Number Policy Burkett Covered Member ID Burkett Member ID Guarantor Name 12/11/2020 1 [employer] (MEDICARE) Cristobal Vargas [id number] Cristobal Vargas 07/28/2018 1 *SELF PAY* [...] with Augmentin for epididymoorchitis. 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 He denies fever. CLAUDY LUQUE MD [address] [place] [address] [place], [address], [facility] 05/24/2019 10:21:51 06/06/2019 text/html Diagnoses: Right [...] Augmentin for epididymo-orchitis. He was admitted to [facility] and underwent left scrotal exploration and debridement 05/29/2019. He subsequently had placement of a wound VAC. 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 HPI: The patient is here with his Agnelic for hospital follow-up. The home health nurse [...] He denies voiding trouble. CLAUDY LUQUE MD [address] [place] [address], [phone], [facility] 06/06/2019 08:34:31 06/13/2019 text/html Diagnoses: Right [...] urgency, dysuria, or decreased flow. He saw il and was prescribed Bactrim DS 02/08/2019, he had dizziness and shortness of breath after a few doses and was switched to Cipro 14 days. He underwent left hydrocelectomy 04/04/2019. This was complicated by scrotal hematoma and which opened spontaneously. They started wound packing 04/22/2019 and he was treated with Augmentin for epididymo-orchitis. He was admitted to [facility] and underwent left scrotal exploration and debridement 05/29/2019. He subsequently had placement of a wound VAC. 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 CLAUDY LUQUE MD [address] [place] [address], [phone], [facility] 06/13/2019 08:15:57 06/29/2019 text/html Diagnoses: Right [...] Augmentin for epididymo-orchitis. He was admitted to [facility] and underwent left scrotal exploration and debridement 05/29/2019. He subsequently had placement of a wound VAC. He underwent closure of the scrotal wound 06/20/2019. 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 HPI: The patient is here with his Angelic for follow-up after closure of the scrotal wound last week. He has been taking Augmentin. He is on chronic narcotics. He went to the emergency room last night for scrotal pain. He denies voiding trouble. CLAUDY LUQUE MD [facility] [place], [phone], [facility] 06/29/2019 11:32:37
--- OUTSIDE RECORDS SUMMARY | 2024-10-28 23:45 | XMS_ITS | Encounter Summary ---
Author Organization [employer] Address [address] [place] [address] Care Team Providers Care Electric Deicer Inspector Name Role Phone Unavailable Primary Care Provider Unavailabl e Encounter Details Date Type Department Care Team (Late st Contact Info) Description 05/31/2019 Transcribed Document [facility] [place] [address] [place] [address] ProviderMelanie MD [address] [place] [id number] Social History Tobacco Use Types Packs/Day Years Used Date Smoking Tobacco: Never Assessed Sex and Gender Information Value Date Recorded Sex Assigned at Not on file Legal Sex Male 4:07 PM CDT Gender Identity Not on file Sexual Orientation Not on file documented as of this encounter Miscellaneous Notes * Cerner Conversion Note - Melanie ProviderMD - 05/31/2019 4:40 PM MINISTER ASSISTANT Patient: TERRI MOREL Age: 59 years Sex: [...] the wound and he has been taking [place] Percocet and morphine at home with no [...] further serious morbidity and other serious sequela Electronically signed by Nicci Ortiz Conversion Assurance Services Manager Health Care Cerner at 09/05/2022 2:22 PM CDT documented in this encounter Plan of Treatment Not on file documented as of this encounter Visit Diagnoses Not on filedocumented in this encounter
--- OUTSIDE RECORDS SUMMARY | 2024-10-28 23:45 | XMS_ITS | Encounter Summary ---
Author Organization [employer] Address [address] [place] [address] Care Team Providers Care Printing Worker Supervisor Name Role Phone Unavailable Primary Care Provider Unavailabl e Encounter Details Date Type Department Care Team (Late st Contact Info) Description 05/31/2019 Transcribed Document [facility] [place] [address] [place] [address] ProviderMelanie MD [facility] [place], [place] [id number] Social History Tobacco Use Types Packs/Day Years Used Date Smoking Tobacco: Never Assessed Sex and Gender Information Value Date Recorded Sex Assigned at Not on file Legal Sex Male 4:07 PM CDT Gender Identity Not on file Sexual Orientation Not on file documented as of this encounter Miscellaneous Notes * Cerner Conversion Note - Historical ProviderMD - 05/31/2019 2:56 PM NAVAL INSPECTOR On Going Discharge Planning Entered On: 05/31/2019 14:57 EST Performed On: 05/31/2019 14:56 EST by LYNDSEY GAY RN-Employee Benefits DirectorEar Machine Operator Progress Note Discharge Arrangements : Patient Post-Acute Information Patient Name: TERRI VARGAS Gender: Male : 62 Age: 59 Years No Post-Acute Placement(s) Listed No Post-Acute Service(s) Listed No Curaspan Referral(s) Listed Barriers to Discharge Identified : Clinical Condition of Patient Barriers to Discharge Unresolved : Clinical Condition of Patient Did you Attend Multidisciplinary Rounds? : Yes LYNDSEY GAY RN-Employee Benefits Director - 05/31/2019 14:56 EST Narrative Progress Note Narrative Progress Note : Met with Pt on MDR rounds. Pain continues to be an issue, Dilaudid HEAVY RAIL TRAIN OPERATOR in use. Plans are to place a wound vac sometime today. CM will follow. LYNDSEY GAY, ANAT-Employee Benefits Director - 05/31/2019 14:56 EST Electronically signed by Angel [facility] Conversion Associate Dentist Cerner at 09/05/2022 2:06 PM CDT documented in this encounter Plan of Treatment Not on file documented as of this encounter Visit Diagnoses Not on filedocumented in this encounter
--- OUTSIDE RECORDS SUMMARY | 2024-10-28 23:45 | XMS_ITS | Encounter Summary ---
Author Organization [employer] Address [address] [place] [address] Care Team Providers Care Customs Import Specialist Name Role Phone Unavailable Primary Care Provider Unavailabl e Encounter Details Date Type Department Care Team (Late st Contact Info) Description 05/31/2019 Transcribed Document [facility] [place] Family Medicine [address] [place] [address] ProviderMelanie MD [address] [place], [place] [id number] Social History Tobacco Use Types Packs/Day Years Used Date Smoking Tobacco: Never Assessed Sex and Gender Information Value Date Recorded Sex Assigned at Not on file Legal Sex Male 4:07 PM CDT Gender Identity Not on file Sexual Orientation Not on file documented as of this encounter Miscellaneous Notes * Cerner Conversion Note - Historical ProviderMD - 05/31/2019 2:00 AM MD DO [facility] Light Rail Operator Details Entered On: 05/31/2019 8:04 EST Performed [...] 05/31/2019 8:04 EST Electronically signed by Angel [facility] Conversion Oriental Medicine Practitioner Cerner at 09/05/2022 2:06 PM CDT documented in this encounter Plan of Treatment Not on file documented as of this encounter Visit Diagnoses Not on filedocumented in this encounter
--- OUTSIDE RECORDS SUMMARY | 2024-10-28 23:45 | XMS_ITS | Encounter Summary ---
Author Organization [employer] Address [address] [place] [address] Care Team Providers Care Wireless Engineer Name Role Phone Unavailable Primary Care Provider Unavailabl e Encounter Details Date Type Department Care Team (Late st Contact Info) Description 05/30/2019 Transcribed Document [facility] Family Medicine [address] [place] [address] ProviderMelanie MD [address] [place], [place] [id number] Social History Tobacco Use Types Packs/Day Years Used Date Smoking Tobacco: Never Assessed Sex and Gender Information Value Date Recorded Sex Assigned at Not on file Legal Sex Male 4:07 PM CDT Gender Identity Not on file Sexual Orientation Not on file documented as of this encounter Miscellaneous Notes * Cerner Conversion Note - Historical ProviderMD - 05/30/2019 2:00 AM COVERAGE SPECIALIST RN Lugger Details Entered On: 05/30/2019 1:06 EST Performed [...] 05/30/2019 1:06 EST Electronically signed by Angel [facility] Conversion Press Operator Meat Cerner at 09/05/2022 2:22 PM CDT documented in this encounter Plan of Treatment Not on file documented as of this encounter Visit Diagnoses Not on filedocumented in this encounter
--- OUTSIDE RECORDS SUMMARY | 2024-10-28 23:45 | XMS_ITS | Encounter Summary ---
Author Organization [employer] Address [address] [place] [address] Care Team Providers Care Process Trainer Name Role Phone Unavailable Primary Care Provider Unavailabl e Encounter Details Date Type Department Care Team (Late st Contact Info) Description 05/31/2019 Transcribed Document [facility] [place] [address] [place] [address] ProviderMelanie MD [address] [place] [id number] Social History Tobacco Use Types Packs/Day Years Used Date Smoking Tobacco: Never Assessed Sex and Gender Information Value Date Recorded Sex Assigned at Not on file Legal Sex Male 4:07 PM CDT Gender Identity Not on file Sexual Orientation Not on file documented as of this encounter Miscellaneous Notes * Cerner Conversion Note - Melanie ProviderMD - 05/31/2019 2:04 AM WELFARE SERVICE AIDE Event Note Entered On: 05/31/2019 2:07 EST Performed On: 05/31/2019 2:04 EST by Kristofer Lau RN Event Note Event Date/Time : 05/30/2019 20:30 EST Event Location : Assigned room Event Details : Other: Description of Event : Patient complains of delay in administering pain medicine When patient's STUDENT COUNSELOR dilaudid was about to finish, a request [...] Kristofer Lau RN - 05/31/2019 2:04 EST documented in this encounter Plan of Treatment Not on file documented as of this encounter Visit Diagnoses Not on filedocumented in this encounter
--- OUTSIDE RECORDS SUMMARY | 2024-10-28 23:45 | XMS_ITS | Encounter Summary ---
Author Organization [employer] Address [address] [place] [address] Care Team Providers Care Auditor Medical Claims Name Role Phone Unavailable Primary Care Provider Unavailabl e Encounter Details Date Type Department Care Team (Late st Contact Info) Description 05/31/2019 Transcribed Document [facility] [place] Family Medicine [address] [place] [address] ProviderMelanie MD [facility] [place], [place] [phone] Social History Tobacco Use Types Packs/Day Years Used Date Smoking Tobacco: Never Assessed Sex and Gender Information Value Date Recorded Sex Assigned at Not on file Legal Sex Male 4:07 PM CDT Gender Identity Not on file Sexual Orientation Not on file documented as of this encounter Miscellaneous Notes * Cerner Conversion Note - Historical ProviderMD - 05/31/2019 11:19 PM PORT ENGINEER Patient: TERRI VARGAS Age: 59 Years Sex: [...] still not adequate - will increase dilaudid DIRECTOR OF STUDENT SERVICES and allow oral oxcodone as needed. 2. [...] Oral, At Bedtime Dilaudid 6 mg/30 ml DIRECTOR OF STUDENT SERVICES 6 mg, 6 mg= 30 mL, IntraVENous [...] EST Slide Review No 05/31/2019 07:07 EST documented in this encounter Plan of Treatment Not on file documented as of this encounter Visit Diagnoses Not on filedocumented in this encounter
--- OUTSIDE RECORDS SUMMARY | 2024-10-28 23:45 | XMS_ITS | Encounter Summary ---
Author Organization [employer] Address [address] [place] [address] Care Team Providers Care Bread Wrapping Machine Feeder Name Role Phone Unavailable Primary Care Provider Unavailabl e Encounter Details Date Type Department Care Team (Late st Contact Info) Description 06/01/2019 Transcribed Document [facility] [place] [address] [place] [address] ProviderMelanie MD [facility] [place] [address] Social History Tobacco Use Types Packs/Day Years Used Date Smoking Tobacco: Never Assessed Sex and Gender Information Value Date Recorded Sex Assigned at Not on file Legal Sex Male 4:07 PM CDT Gender Identity Not on file Sexual Orientation Not on file documented as of this encounter Miscellaneous Notes * Cerner Conversion Note - Melanie ProviderMD - 06/01/2019 5:17 PM FIBERGLASS BOAT FINISHER [facility] [place] [address] TERRI MOREL :1960 Visit Time:05/28/2019 [...] Care Team STOP the following medications: STOP [place] (hydrocodone - acetaminophen) STOP Percocet 5/325 mg tablets ---- New prescription for Percocet 10 / 325 mg tablets provided. [facility] [phone] Medical Equipment for Home Use: [employer] for wound vac [phone] Discharge Follow Up Instructions: PCP 1 week, ID (Dr. Weiss) 1 week, Urology 2 weeks. Home wound VAC. Activity: Discharge Activity: Activity as tolerated Diet: Discharge Diet: Resume usual diet as tolerated Follow-Up Appointments Follow Up with SUKHJINDER SHRESTHA MD-INT When 06/13/2019 03:45 PM EST Comments Appointment has been made Where: [address] [place] [address]- x8 Follow Up with KATARZYNA RIZO MD-INF When 06/03/2019 09:30 AM EST Where: [address] [facility] [place] [address]- Follow Up with JC LUQUE When Within 1 to 2 weeks Comments Call for follow up appointment Where: [address] [place] [address] [place] [address]- Business (1) Medications What How [...] to treat your wound at home. ??? [place] hospital stay. ??? Less pain. What are [...] 04/16/2009 Document Revised: 03/31/2017 Document Reviewed: 02/07/2016 Else[employer] Interactive Patient Education ?? 2019 [employer] Negative Pressure Wound Therapy Dressing Care [...] open and ready to use. ? Hand freight car loader. ? Wound cleanser or saltwater solution (saline) [...] and water are not available, use hand freight car loader. ??? Put on gloves. ??? Turn off [...] and water are not available, use hand freight car loader. Cleaning your wound ??? Follow your health care provider's instructions on how to clean your wound. This may include using a saline or recommended wound cleanser. ??? Do not use uyqc-egi-guzcifz medicated or antiseptic creams, sprays, liquids, or [...] and water are not available, use hand freight car loader. Applying the dressing ??? Apply a skin [...] and water are not available, use hand freight car loader. ??? Attach the suction and turn the [...] 07/26/2012 Document Revised: 05/29/2016 Document Reviewed: 02/07/2016 [employer] Interactive Patient Education ?? 2019 Chloe [employer] Isabel. acetaminophen and oxycodone (a SEET a MIN [...] may report side effects to FDA at 6-697-KSD-8607. What other drugs will affect acetaminophen and [...] affect acetaminophen and oxycodone, including prescription and wicg-ubk-cjcwoub medicines, vitamins, and herbal products. Not all [...] to ensure that the information provided by [employer]. ('[employer]') is accurate, up-to-date, and complete, but no guarantee is made to that effect. Drug information contained herein may be time sensitive. [employer] information has been compiled for use by healthcare practitioners and consumers in the [place] and therefore [employer] does not warrant that uses outside of the [place] are appropriate, unless specifically indicated otherwise. [employer]'s drug information does not endorse drugs, diagnose patients or recommend therapy. Intact V[employer]s drug information is an informational resource designed [...] effective or appropriate for any given patient. [employer] does not assume any responsibility for any aspect of healthcare administered with the aid of information [employer] provides. The information contained herein is not intended to cover all possible uses, directions, precautions, warnings, drug interactions, allergic reactions, or adverse effects. If you have questions about the drugs you are taking, check with your doctor, nurse or pharmacist. Copyright 1274-4145 [employer]. Version: 18.02. Revision Date: 04/14/2018. lactobacillus acidophilus [...] may report side effects to FDA at 0-280-EDY-3326. What other drugs will affect lactobacillus acidophilus? Do not take lactobacillus acidophilus without medical advice if you are using any medications that can weaken your immune system, such as: ?? medicine to prevent organ transplant rejection; or ?? steroid medicine (prednisone, dexamethasone, methylprednisolone, and others). This list is not complete. Other drugs may interact with lactobacillus acidophilus, including prescription and ycqf-qbh-fpcxgur medicines, vitamins, and herbal products. Not all [...] to ensure that the information provided by [employer]. ('[employer]') is accurate, up-to-date, and complete, but no guarantee is made to that effect. Drug information contained herein may be time sensitive. [employer] information has been compiled for use by healthcare practitioners and consumers in the [place] and therefore [employer] does not warrant that uses outside of the [place] are appropriate, unless specifically indicated otherwise. [employer]'s drug information does not endorse drugs, diagnose patients or recommend therapy. Int[employer] V[employer]s drug information is an informational resource designed [...] effective or appropriate for any given patient. [employer] does not assume any responsibility for any aspect of healthcare administered with the aid of information [employer] provides. The information contained herein is not intended to cover all possible uses, directions, precautions, warnings, drug interactions, allergic reactions, or adverse effects. If you have questions about the drugs you are taking, check with your doctor, nurse or pharmacist. Copyright 8648-0476 [employer]. Version: 3.07. Revision Date: 10/24/2016. amoxicillin and [...] may report side effects to FDA at 3-242-TPQ-6637. What other drugs will affect amoxicillin and clavulanate potassium? Tell your doctor about all your current medicines and any you start or stop using, especially: ?? allopurinol; ?? probenecid; or ?? a blood thinner--warfarin, Coumadin, Jantoven. This list is not complete. Other drugs may interact with amoxicillin and clavulanate potassium, including prescription and gyah-cql-chyinke medicines, vitamins, and herbal products. Not all [...] to ensure that the information provided by [employer]. ('[employer]') is accurate, up-to-date, and complete, but no guarantee is made to that effect. Drug information contained herein may be time sensitive. [employer] information has been compiled for use by healthcare practitioners and consumers in the [place] and therefore [employer] does not warrant that uses outside of the [place] are appropriate, unless specifically indicated otherwise. [employer] drug information does not endorse drugs, diagnose patients or recommend therapy. Já Entendi drug information is an informational resource designed [...] effective or appropriate for any given patient. [employer] does not assume any responsibility for any aspect of healthcare administered with the aid of information [employer] provides. The information contained herein is not intended to cover all possible uses, directions, precautions, warnings, drug interactions, allergic reactions, or adverse effects. If you have questions about the drugs you are taking, check with your doctor, nurse or pharmacist. Copyright 2447-8238 [employer]. Version: .. Revision Date: 05/19/2017. doxycycline (oral/injection) [...] or life-threatening conditions such as anthrax or Ursina spotted fever. The benefit of treating a [...] may report side effects to FDA at 7-925-EDI-4267. What other drugs will affect doxycycline? Sometimes it is not safe to use certain medications at the same time. Some drugs can affect your blood levels of other drugs you take, which may increase side effects or make the medications less effective. Other drugs may affect doxycycline, including prescription and dybv-djy-ioebpvk medicines, vitamins, and herbal products. Tell your [...] to ensure that the information provided by [employer]. ('[employer]') is accurate, up-to-date, and complete, but no guarantee is made to that effect. Drug information contained herein may be time sensitive. [employer] information has been compiled for use by healthcare practitioners and consumers in the [place] and therefore [employer] does not warrant that uses outside of the [place] are appropriate, unless specifically indicated otherwise. [employer] drug information does not endorse drugs, diagnose patients or recommend therapy. [employer] drug information is an informational resource designed [...] effective or appropriate for any given patient. [employer] does not assume any responsibility for any aspect of healthcare administered with the aid of information [employer] provides. The information contained herein is not intended to cover all possible uses, directions, precautions, warnings, drug interactions, allergic reactions, or adverse effects. If you have questions about the drugs you are taking, check with your doctor, nurse or pharmacist. Copyright 1418-7343 [employer]. Version: 21.02. Revision Date: 10/06/2018. Emergency Awareness [...] Assistance with quitting is available by contacting 6-229-UFNA-NOW. This is a free resource providing counseling, [...] range between ( 0.0 and 7.0 ) Juab #: 0.86 K/uL -- Normal range between ( 0.16 and 1.00 ) Eos #: 0.40 x10(3)/uL -- Normal range between ( 0.00 and 0.80 ) Juab %: 8.2 % -- Normal range between [...] ) Urine Bilirubin Dipstick: Negative Urine Specific [place]: >1.030 -- Normal range between ( 1.005 [...]
--- OUTSIDE RECORDS SUMMARY | 2024-10-28 23:45 | XMS_ITS | Encounter Summary ---
Author Organization [employer] Address [address] [place] [address] Care Team Providers Care Tsa Screener Name Role Phone Unavailable Primary Care Provider Unavailabl e Encounter Details Date Type Department Care Team (Late st Contact Info) Description 05/31/2019 Transcribed Document [facility] [place] [address] [place] [address] ProviderMelanie MD [facility] [place] [address] Social History Tobacco Use Types Packs/Day Years Used Date Smoking Tobacco: Never Assessed Sex and Gender Information Value Date Recorded Sex Assigned at Not on file Legal Sex Male 4:07 PM CDT Gender Identity Not on file Sexual Orientation Not on file documented as of this encounter Miscellaneous Notes * Cerner Conversion Note - Historical ProviderMD - 05/31/2019 5:00 AM ORE CHARGER Chart Check - Review Order Profile Entered [...]
--- OUTSIDE RECORDS SUMMARY | 2024-10-28 23:45 | XMS_ITS | Encounter Summary ---
Author Organization [facility] [employer] iatives Address [address] [place] [address] Care Team Providers Care Personnel Technician Name Role Phone Unavailable Primary Care Provider Unavailabl e Encounter Details Date Type Department Care Team (Late st Contact Info) Description 06/10/2019 Transcribed Document [facility] [place] [address] [place] [address] ProviderMelanie MD [address] [place] [id number] Social History Tobacco Use Types Packs/Day Years Used Date Smoking Tobacco: Never Assessed Sex and Gender Information Value Date Recorded Sex Assigned at Not on file Legal Sex Male 4:07 PM CDT Gender Identity Not on file Sexual Orientation Not on file documented as of this encounter Miscellaneous Notes * Cerner Conversion Note - Historical ProviderMD - 06/10/2019 2:25 PM LYE TREATER DATE OF ADMISSION: 06/09/2019 HISTORY: This is a 59-year-old male, resident of [place], [place], we are seeing on referral from [...] with orchitis. He was admitted here at [facility] earlier this month for a surgical cleanout and additional debridement. This time, he was treated with a negative pressure wound system, which is still in place. The testicle remains. He has been having difficulty at home with frequent signaling of the device. He has one of the [employer] products, and unfortunately, we have found this [...] by with just 2 changes per week. /[id number] MD MELI Terry III/LESLEY / MELI / JOVANY CC: MD Chuck Martinez MD Electronically signed by Angel [facility] Conversion Rn Embedded Cerner at 09/05/2022 2:16 PM CDT documented in this encounter Plan of Treatment Not on file documented as of this encounter Visit Diagnoses Not on filedocumented in this encounter
--- OUTSIDE RECORDS SUMMARY | 2024-10-28 23:45 | XMS_ITS | Encounter Summary ---
Author Organization [employer] iatives Address [address] [place] [address] Care Team Providers Care Senior Shipping Clerk Name Role Phone Unavailable Primary Care Provider Unavailabl e Encounter Details Date Type Department Care Team (Late st Contact Info) Description 05/30/2019 Transcribed Document [facility] [place] [address] [place] [address] ProviderMelanie MD [facility] [place], [place] [address] Social History Tobacco Use Types Packs/Day Years Used Date Smoking Tobacco: Never Assessed Sex and Gender Information Value Date Recorded Sex Assigned at Not on file Legal Sex Male 4:07 PM CDT Gender Identity Not on file Sexual Orientation Not on file documented as of this encounter Miscellaneous Notes * Cerner Conversion Note - Historical ProviderMD - 05/30/2019 4:19 PM BEAUTY SCHOOL INSTRUCTOR Patient: TERRI VARGAS Age: 59 Years Sex: [...] still not adequate - will start dilaudid JUNIOR SYSTEMS ADMINISTRATOR. 2. Coronary artery disease status post CABG [...] Oral, At Bedtime Dilaudid 6 mg/30 ml JUNIOR SYSTEMS ADMINISTRATOR 6 mg, 6 mg= 30 mL, IntraVENous [...] Lymph # 2.13 x10(3)/uL 05/30/2019 06:33 EST Bay % 8.2 % 05/30/2019 06:33 EST Bay # 0.86 K/uL 05/30/2019 06:33 EST Eos [...]
--- OUTSIDE RECORDS SUMMARY | 2024-10-28 23:45 | XMS_ITS | Clinical Summary ---
Author Organization [facility] Address [address] [place] [address] Phone Care Team Providers Care Manager Mail Name Role Phone Renzo BEARD, Chuck Schaffer [ ] Conditions or Problems Problem Name Problem Code Onset Date Status Entry Date Provider Comment Standard Description Annotate Orchitis 463633408 (SNOMED CT) 06/03 Active 06/03 Renata Mello Orchitis Coronary artery disease, S/P CABG 86910349 (SNOMED CT) 06/03 Active 06/03 Renata Mello Coronary arteriosclerosis Skin tissue necrosis 38473860 (SNOMED CT) 06/03 Active 06/03 Renata Mello Skin necrosis DM Type II E11.9 (ICD-10-CM) 06/03 Active 06/03 Renata Mello Type 2 diabetes mellitus without complications Abscess/Cell ulitis, scrotal 78597681 (SNOMED CT) 06/03 Active 06/03 Renata Mello Abscess of scrotum Nicotine dependence, cigarettes 866297111 (SNOMED CT) 06/03 Active 06/03 Renata Mello Tobacco user Medications Medication Instructions Start Date Stop Date Generic Name [facility] Provider ZOFRAN 4 MG ORAL TABLET 1 tablet every 8 hours as needed ONDANSETRON HCL 25832182812 Huan Shah MS CONTIN 15 MG CR-TABS 1 tablet twice daily MORPHINE SULFATE 90200383753 Huan Shah JANUMET 50-1000 MG TABS 1 tablet twice daily SITAGLIPTIN-METFO RMIN HCL 27355029038 Huan Shah DESIPRAMINE HCL 25 MG TABS 1 tablet nightly DESIPRAMINE HCL 49014532296 [facility] COREG 25 MG TABS 1 tablet twice daily CARVEDILOL 90016816843 [facility] OMEPRAZOLE 40 MG CPDR 1 capsule daily OMEPRAZOLE 29268492739 [facility] ALTOPREV 40 MG [id number] 1 tablet daily LOVASTATIN 67109665165 [facility] LISINOPRIL-HYDROCH LOROTHIAZIDE 10-12.5 MG TABS 1 tablet twice daily LISINOPRIL-HYDROC HLOROTHIAZIDE 18661094053 [facility] FARXIGA 10 MG TABS 1 tablet daily DAPAGLIFLOZIN PROPANEDIOL 54315404000 [facility] CYCLOBENZAPRINE HCL 10 MG TABS 1 tablet 3 times daily as needed for spasms CYCLOBENZAPRINE HCL 24181861129 [facility] ADULT ASPIRIN REGIMEN 81 MG ORAL TABLET DELAYED RELEASE 1 tablet daily ASPIRIN 29625345187 [facility] PERCOCET 10-325 MG TABS 1 tablet every 4 hours as needed OXYCODONE-ACETAMI NOPHEN 59222628149 [facility] ADALAT CC 90 MG ORAL TABLET EXTENDED RELEASE 24 HOUR 1 tablet daily NIFEDIPINE 40211534650 [facility] CYMBALTA 60 MG CPEP 1 capsule daily DULOXETINE HCL 25166066508 [facility] ACIDOPHILUS 100 MG CAPS 1 capsule twice daily LACTOBACILLUS 30868786586 [facility] AVIDOXY 100 MG TABS 1 tablet twice daily DOXYCYCLINE MONOHYDRATE 77065732668 [facility] AMOXICILLIN-POT CLAVULANATE 875-125 MG TABS 1 tablet twice daily AMOXICILLIN-POT CLAVULANATE 80587949197 [facility] Medications Administered No information available. Allergies, Adverse [...]
--- OUTSIDE RECORDS SUMMARY | 2024-10-28 23:45 | XMS_ITS | Encounter Summary ---
Author Organization [employer] Address [address] [place] [address] Care Team Providers Care Brake Drum Lathe Operator Name Role Phone Unavailable Primary Care Provider Unavailabl e Encounter Details Date Type Department Care Team (Late st Contact Info) Description 06/01/2019 Transcribed Document [facility] [place] [address] [place] [address] ProviderMelanie MD [facility] [place] [address] Social History Tobacco Use Types Packs/Day Years Used Date Smoking Tobacco: Never Assessed Sex and Gender Information Value Date Recorded Sex Assigned at Not on file Legal Sex Male 4:07 PM CDT Gender Identity Not on file Sexual Orientation Not on file documented as of this encounter Miscellaneous Notes * Cerner Conversion Note - Historical ProviderMD - 06/01/2019 4:51 PM SAFE DEPOSIT ATTENDANT Nursing Discharge Summary Entered On: 06/01/2019 16:51 EST Performed On: 06/01/2019 16:51 EST by SERVANDO BARILLAS, youth nutritional monitor Documentation Discharge Date/Time : 06/01/2019 18:00 EST [...] Printed materials Teaching Evaluation : Verbalizes understanding SERVANDO BARILLAS, RN - 06/01/2019 16:51 EST Electronically signed by Angel [facility] Conversion Exchange Underwriting Consultant Cerner at 09/05/2022 2:04 PM CDT documented in this encounter Plan of Treatment Not on file documented as of this encounter Visit Diagnoses Not on filedocumented in this encounter
--- OUTSIDE RECORDS SUMMARY | 2024-10-28 23:45 | XMS_ITS | Encounter Summary ---
Author Organization [employer] Address [address] [place] [address] Care Team Providers Care Museum Informatics Specialist Name Role Phone Unavailable Primary Care Provider Unavailabl e Encounter Details Date Type Department Care Team (Late st Contact Info) Description 05/31/2019 Transcribed Document [facility] [place] Medicine [address] [place] [address] ProviderMelanie MD [facility] [place], [place] [address] Social History Tobacco Use Types Packs/Day Years Used Date Smoking Tobacco: Never Assessed Sex and Gender Information Value Date Recorded Sex Assigned at Not on file Legal Sex Male 4:07 PM CDT Gender Identity Not on file Sexual Orientation Not on file documented as of this encounter Miscellaneous Notes * Cerner Conversion Note - Historical ProviderMD - 05/31/2019 5:00 PM HOME CARE SCHEDULER Chart Check - Review Order Profile Entered [...]
--- OUTSIDE RECORDS SUMMARY | 2024-10-28 23:45 | XMS_ITS | Encounter Summary ---
Author Organization [employer] Address [address] [place] [address] Care Team Providers Care Master Plumber Name Role Phone Unavailable Primary Care Provider Unavailabl e Encounter Details Date Type Department Care Team (Late st Contact Info) Description 05/30/2019 Transcribed Document [facility] [address] [place] [address] Provider marc Navarro MD Social History Tobacco Use Types Packs/Day Years Used Date Smoking Tobacco: Never Assessed Sex and Gender Information Value Date Recorded Sex Assigned at Not on file Legal Sex Male 4:07 PM CDT Gender Identity Not on file Sexual Orientation Not on file documented as of this encounter Miscellaneous Notes * Cerner Conversion Note - [facility] Melanie ProviderMD - 05/30/2019 6:00 AM EST Chart Check - Review Order Profile Entered On: 05/30/2019 5:07 EST Performed On: 05/30/2019 5:00 EST by Jenna Vargas Lpn Chart Check Powerplans Initiated/Discontinued as Appropriate : Yes All Active Orders Reviewed : Yes Jenna Vargas Lpn - 05/30/2019 5:07 EST Electronically signed by Angel [facility] Conversion Truck Engine Assembler Cerner at 10/14/2022 2:01 PM CDT documented in this encounter Plan of Treatment Not on file documented as of this encounter Visit Diagnoses Not on filedocumented in this encounter
--- OUTSIDE RECORDS SUMMARY | 2024-10-28 23:45 | XMS_ITS | Encounter Summary ---
Author Organization [employer] Address [address] [place] [address] Care Team Providers Care Head Pumper Name Role Phone Unavailable Primary Care Provider Unavailabl e Encounter Details Date Type Department Care Team (Late st Contact Info) Description 06/05/2019 Transcribed Document [facility] [place] [facility] [place] [address] ProviderMelanie MD [address] [place] [id number] Social History Tobacco Use Types Packs/Day Years Used Date Smoking Tobacco: Never Assessed Sex and Gender Information Value Date Recorded Sex Assigned at Not on file Legal Sex Male 4:07 PM CDT Gender Identity Not on file Sexual Orientation Not on file documented as of this encounter Miscellaneous Notes * Cerner Conversion Note - Melanie ProviderMD - 06/05/2019 1:08 PM BILL CUTTER Patient: TERRI MOREL Age: 59 Years Sex: [...] Patient reports he has been taking his Seaview Percocet and morphine at home with no [...]
--- OUTSIDE RECORDS SUMMARY | 2024-10-28 23:46 | XMS_ITS | Encounter Summary ---
Author Organization [employer] Address [address] [place] [address] Care Team Providers Care Manager Education Name Role Phone Unavailable Primary Care Provider Unavailabl e Encounter Details Date Type Department Care Team (Late st Contact Info) Description 06/28/2019 Transcribed Document [facility] [place] [address] [place] [address] ProviderMelanie MD [address] [place] [id number] Social History Tobacco Use Types Packs/Day Years Used Date Smoking Tobacco: Never Assessed Sex and Gender Information Value Date Recorded Sex Assigned at Not on file Legal Sex Male 4:07 PM CDT Gender Identity Not on file Sexual Orientation Not on file documented as of this encounter Miscellaneous Notes * Cerner Conversion Note - Historical ProviderMD - 06/28/2019 11:30 AM MOLECULAR GENETICIST ED Event Note Entered On: 06/29/2019 0:07 EST Performed On: 06/28/2019 11:30 EST by KEN REBOLLEDO ED Event Note ED Event Date/Time : 06/28/2019 11:30 EST ED Description of Event : pt requesting pain medication, refused Ibuprofen. MD Jackson aware. KEN REBOLLEDO - 06/29/2019 0:06 EST Electronically signed by Angel [facility] Conversion Corn Detasseler Machine Operator Cerner at 09/05/2022 2:30 PM CDT documented in this encounter Plan of Treatment Not on file documented as of this encounter Visit Diagnoses Not on filedocumented in this encounter
--- OUTSIDE RECORDS SUMMARY | 2024-10-28 23:46 | XMS_ITS | Encounter Summary ---
Author Organization [email or web address] Address [address] [place] [address] Care Team Providers Care Rockboard Lather Name Role Phone Unavailable Primary Care Provider Unavailabl e Encounter Details Date Type Department Care Team (Late st Contact Info) Description 04/08/2019 Transcribed Document [facility] [place] [address] [place] [address] ProviderMelanie MD [facility] [place], [place] [id number] Social History Tobacco Use Types Packs/Day Years Used Date Smoking Tobacco: Never Assessed Sex and Gender Information Value Date Recorded Sex Assigned at Not on file Legal Sex Male 4:07 PM CDT Gender Identity Not on file Sexual Orientation Not on file documented as of this encounter Miscellaneous Notes * Cerner Conversion Note - Melanie ProviderMD - 04/08/2019 10:42 AM PHD INTERNSHIP ED Assessment Entered On: 04/08/2019 10:57 EST [...] Communication Barrier : None Primary Language : Colombian Any Spiritual/Cultural Needs or Requests : No [...]
--- OUTSIDE RECORDS SUMMARY | 2024-10-28 23:46 | XMS_ITS | Encounter Summary ---
Author Organization [employer] Address [address] [place] [address] Care Team Providers Care Real Time Operator Name Role Phone Unavailable Primary Care Provider Unavailabl e Encounter Details Date Type Department Care Team (Late st Contact Info) Description 04/08/2019 Transcribed Document [facility] [place] [address] [place] [address] ProviderMelanie MD [facility] [place] [address] Social History Tobacco Use Types Packs/Day Years Used Date Smoking Tobacco: Never Assessed Sex and Gender Information Value Date Recorded Sex Assigned at Not on file Legal Sex Male 4:07 PM CDT Gender Identity Not on file Sexual Orientation Not on file documented as of this encounter Miscellaneous Notes * Cerner Conversion Note - Historical ProviderMD - 04/08/2019 3:10 PM PATIENT OBSERVATION ASSISTANT ED Discharge Entered On: 04/08/2019 15:10 EST [...]
--- OUTSIDE RECORDS SUMMARY | 2024-10-28 23:46 | XMS_ITS | Encounter Summary ---
Author Organization [employer] i[employer] Address [address] [place] [address] Care Team Providers Care Auto Rental Supervisor Name Role Phone Unavailable Primary Care Provider Unavailabl e Encounter Details Date Type Department Care Team (Late st Contact Info) Description 06/29/2019 Transcribed Document [facility] [place] [address] [place] [address] ProviderMelanie MD [address] [place] [id number] Social History Tobacco Use Types Packs/Day Years Used Date Smoking Tobacco: Never Assessed Sex and Gender Information Value Date Recorded Sex Assigned at Not on file Legal Sex Male 4:07 PM CDT Gender Identity Not on file Sexual Orientation Not on file documented as of this encounter Miscellaneous Notes * Cerner Conversion Note - Historical ProviderMD - 06/29/2019 12:06 AM TERRITORY SALES EXECUTIVE ED Event Note Entered On: 06/29/2019 0:09 EST Performed On: 06/29/2019 0:06 EST by Layla Vick SALES AND DISTRIBUTION CLERK Event Note ED Event Date/Time : 06/29/2019 [...] for a visit I will get a industry consultant I am not kidding. Pt educated on implications r/t AMA, pt proceeds to get dressed and exit ED. Layla Vick RN - 06/29/2019 0:06 EST Electronically signed by Angel [facility] Conversion Aquatics Instructor Cerner at 09/05/2022 2:03 PM CDT documented in this encounter Plan of Treatment Not on file documented as of this encounter Visit Diagnoses Not on filedocumented in this encounter
--- OUTSIDE RECORDS SUMMARY | 2024-10-28 23:46 | XMS_ITS | Encounter Summary ---
Author Organization [employer] Address [address] [place] [address] Care Team Providers Care Fiscal Accountant Name Role Phone Unavailable Primary Care Provider Unavailabl e Encounter Details Date Type Department Care Team (Late st Contact Info) Description 06/28/2019 Transcribed Document [facility] [place] [address] [place] [address] ProviderMelanie MD [address] [place] [address] Social History Tobacco Use Types Packs/Day Years Used Date Smoking Tobacco: Never Assessed Sex and Gender Information Value Date Recorded Sex Assigned at Not on file Legal Sex Male 4:07 PM CDT Gender Identity Not on file Sexual Orientation Not on file documented as of this encounter Miscellaneous Notes * Cerner Conversion Note - Historical ProviderMD - 06/28/2019 10:50 PM IT PROGRAM AUDITOR Divide Suicide Severity Rating Scale (C-SSRS) Entered On: 06/28/2019 23:13 EST Performed On: 06/28/2019 23:09 EST by Layla Vick RN Divide Suicide Severity Rating Scale (C-SSRS) CSSRS Past Month Wish to be : No CSSRS Past Month Suicidal Thoughts : No CSSRS Lifetime Suicide Behavior : No Suicide Severity Rating Score : 0 Suicide Severity Rating : No Additional Care Required at this time Layla Vick RN - 06/28/2019 23:09 EST Electronically signed by Angel [facility] Conversion Rig Superintendent Cerner at 09/05/2022 2:21 PM CDT documented in this encounter Plan of Treatment Not on file documented as of this encounter Visit Diagnoses Not on filedocumented in this encounter
--- OUTSIDE RECORDS SUMMARY | 2024-10-28 23:46 | XMS_ITS | Encounter Summary ---
Author Organization [employer] Address [address] [place] [address] Care Team Providers Care Delineator Name Role Phone Unavailable Primary Care Provider Unavailabl e Encounter Details Date Type Department Care Team (Late st Contact Info) Description 06/29/2019 Transcribed Document [place] [facility] [address] [place] [address] ProviderMelanie MD [facility] [place] [address] Social History Tobacco Use Types Packs/Day Years Used Date Smoking Tobacco: Never Assessed Sex and Gender Information Value Date Recorded Sex Assigned at Not on file Legal Sex Male 4:07 PM CDT Gender Identity Not on file Sexual Orientation Not on file documented as of this encounter Miscellaneous Notes * Cerner Conversion Note - Historical ProviderMD - 06/29/2019 12:12 AM BUS COMPANY MANAGER ED Discharge Entered On: 06/29/2019 0:12 EST Performed On: 06/29/2019 0:12 EST by Layla Vick, rolling machine operator automatic Process Patient Disposition : AMA/Elope/LWBS Personal Belongings [...] 06/29/2019 0:12 EST Electronically signed by Angel [facility] Conversion Superintendent Concrete Mixing Plant Cerner at 09/05/2022 2:22 PM CDT documented in this encounter Plan of Treatment Not on file documented as of this encounter Visit Diagnoses Not on filedocumented in this encounter
--- OUTSIDE RECORDS SUMMARY | 2024-10-28 23:46 | XMS_ITS | Encounter Summary ---
Author Organization [employer] Address [address] [place] [address] Care Team Providers Care Director Of Direct Marketing Name Role Phone Unavailable Primary Care Provider Unavailabl e Reason for Referral * Consultation (Routine) - Closed Specialty Diagnoses / Procedures Referred By Contac t Referred To Contact Psychology / Behavioral Health Diagnoses Other chronic pain Rick Jacobo MD [address] [address] [place] [address] Phone: tel: fax: Tresa Herrera, MS [address] [place] [address] Phone: tel: fax: Referral ID Status Reason Start Date Expiration Date V isits Requested Visits Authorized [id number] Closed Specialty Services Required 04/01/2023 09/28/2023 1 1 Encounter Details Date Type Department Care Team (Late st Contact Info) Description 04/01/2023 Outside Orders [facility] [address] [place] [address] Rick Jacobo MD [address] [address] [place] [address] Other chronic pain (Primary Dx); Chronic pain [...]
--- OUTSIDE RECORDS SUMMARY | 2024-10-28 23:46 | XMS_ITS | Clinical Summary ---
Author Organization [employer] Address [address] [place] [address] Care Team Providers Care Young Adult Librarian Name Role Phone Unavailable Primary Care Provider [...]
--- OUTSIDE RECORDS SUMMARY | 2024-10-28 23:46 | XMS_ITS | Clinical Summary ---
Author Organization [facility] Address [address] [place] [address] Phone Care Team Providers Care Career Specialist Name Role Phone Darnell Elizabeth MD Primary Care Provider [phone] Allergies Active Allergy Reactions Criticality Noted Date [...] patient's age to complete this topic Insurance [facility] Care Teams Career Specialist Relationship Specialty Start Date End Date Darnell Elizabeth MD [address] [place] [address] PCP - General Internal Medicine 12/31/12
--- OUTSIDE RECORDS SUMMARY | 2024-10-28 23:46 | XMS_ITS | Encounter Summary ---
Author Organization [employer] Address [address] [place] [address] Care Team Providers Care Stock Speculator Name Role Phone Unavailable Primary Care Provider Unavailabl e Encounter Details Date Type Department Care Team (Late st Contact Info) Description 04/08/2019 Transcribed Document [facility] [place] [address] [place] [address] ProviderMelanie MD [facility] [place], [place] [address] Social History Tobacco Use Types Packs/Day Years Used Date Smoking Tobacco: Never Assessed Sex and Gender Information Value Date Recorded Sex Assigned at Not on file Legal Sex Male 4:07 PM CDT Gender Identity Not on file Sexual Orientation Not on file documented as of this encounter Miscellaneous Notes * Cerner Conversion Note - Historical ProviderMD - 04/08/2019 2:47 PM CONFERENCE ORGANIZER documented in this encounter Plan of Treatment Not on file documented as of this encounter Visit Diagnoses Not on filedocumented in this encounter
--- OUTSIDE RECORDS SUMMARY | 2024-10-28 23:46 | XMS_ITS | Encounter Summary ---
Author Organization [employer] Address [address] [place] [address] Care Team Providers Care Air Force Senior Officer Name Role Phone Unavailable Primary Care Provider Unavailabl e Encounter Details Date Type Department Care Team (Late st Contact Info) Description 06/28/2019 Transcribed Document [facility] [place] [facility] [place] [address] ProviderMelanie MD [address] [id number] Social History Tobacco Use Types Packs/Day Years Used Date Smoking Tobacco: Never Assessed Sex and Gender Information Value Date Recorded Sex Assigned at Not on file Legal Sex Male 4:07 PM CDT Gender Identity Not on file Sexual Orientation Not on file documented as of this encounter Miscellaneous Notes * Cerner Conversion Note - Melanie ProviderMD - 06/28/2019 10:50 PM HEALTH PLAN SPECIALIST ED Triage Entered On: 06/28/2019 23:04 EST [...] : 3 - Urgent Tracking Group : [facility] ED Montse Mooney RN-Flex Team - 06/28/2019 [...] Onset Date: Unspecified ; Created By: Contributor_system HIST_[employer] TechnologyMIHIR; Reaction Status: Active ; Category: Drug ; Substance: No Known Allergies ; Type: Allergy ; Updated By: Contributor_system HIST_CERMIHIR; Reviewed Date: 06/28/2019 23:01 EST Diagnosis Control ED (As Of: 06/28/2019 23:04:04 EST) Problems(Active) CAD (coronary artery disease) (SNOMED CT :57311805 ) Name of Problem: CAD (coronary artery disease) ; Recorder: Montse Mooney RN-Flex Team; Confirmation: Confirmed ; Classification: Medical ; Code: 24179400 ; Contributor System: [employer] ; Last Updated: 06/28/2019 23:02 EST ; Life Cycle Date: 06/28/2019 ; Life Cycle Status: Active ; Vocabulary: SNOMED CT Diabetes mellitus (SNOMED CT :776868125 ) Name of Problem: Diabetes mellitus ; Recorder: Montse Mooney RN-Flex Team; Confirmation: Confirmed ; Classification: Medical ; Code: 097588004 ; Contributor System: PowerChart ; Last Updated: 06/28/2019 23:02 EST ; Life Cycle Date: 06/28/2019 ; Life Cycle Status: Active ; Vocabulary: SNOMED CT History of obstructive sleep apnea (IMO :71692378 ) Name of Problem: History of obstructive sleep apnea ; Recorder: SYSTEM, SYSTEM; Confirmation: Confirmed ; Classification: Medical ; Code: 99783031 ; Last Updated: 05/29/2019 0:07 EST ; Life Cycle Date: 05/29/2019 ; Life Cycle Status: Active ; Vocabulary: IMO HLD (hyperlipidemia) (SNOMED CT :35204711 ) Name of Problem: HLD (hyperlipidemia) ; Recorder: Montse Mooney RN-Flex Team; Confirmation: Confirmed ; Classification: Medical ; Code: 70733495 ; Contributor System: [employer] ; Last Updated: 06/28/2019 23:02 EST ; Life Cycle Date: 06/28/2019 ; Life Cycle Status: Active ; Vocabulary: SNOMED CT HTN (hypertension) (SNOMED CT :7107239206 ) Name of Problem: HTN (hypertension) ; Recorder: Montse Mooney RN-Flex Team; Confirmation: Confirmed ; Classification: Medical ; Code: [id number] ; Contributor System: PowerChart ; Last Updated: 06/28/2019 23:02 EST ; Life Cycle Date: 06/28/2019 ; Life Cycle Status: Active ; Vocabulary: SNOMED CT Diagnoses(Active) Testicular pain Date: 06/28/2019 ; Diagnosis Type: Reason For Visit ; Confirmation: Complaint of ; Clinical Dx: Testicular pain ; Classification: Medical ; Clinical Service: Non-Specified ; Code: PNED ; Probability: 0 ; Diagnosis Code: [id number] ED Height and Weight Height Source : Stated Height Entry Format : [place] Height, Feet : 5 ft(Converted to: 152 cm, 60 Inch) Height, Inches : 11 Inch(Converted to: 0 ft 11 Inch, 27.94 cm) Clinical Height : 180.34 cm Weight Source, ED : Standing scale Weight Entry Format : [place] Weight, Pounds : 230.6 lb Clinical Dosing Weight : 104.82 kg Body Surface Area (BSA) : 2.24 m2 Body Mass Index : 32.2 kg/m2 (HI) Ryan Body Weight (IBW) : 74.31 kg Montse [...]
--- OUTSIDE RECORDS SUMMARY | 2024-10-28 23:46 | XMS_ITS | Encounter Summary ---
Author Organization [employer] Address [address] [place] [address] Care Team Providers Care Production Line Worker Name Role Phone Unavailable Primary Care Provider Unavailabl e Encounter Details Date Type Department Care Team (Late st Contact Info) Description 04/08/2019 Transcribed Document [facility] [place] [address] [place] [address] ProviderMelanie MD [address] [place] [id number] Social History Tobacco Use Types Packs/Day Years Used Date Smoking Tobacco: Never Assessed Sex and Gender Information Value Date Recorded Sex Assigned at Not on file Legal Sex Male 4:07 PM CDT Gender Identity Not on file Sexual Orientation Not on file documented as of this encounter Miscellaneous Notes * Cerner Conversion Note - Melanie Grider MD - 04/08/2019 11:01 AM FAST FOOD FRY COOK Patient: TERRI MOREL Age: 59 years Sex: [...] history Cardiovascular. Surgical history: Right total orchiectomy ([id number]). Repair of right inguinal hernia ([id number]). Hydrocele (6784632344). CABG (Coronary artery bypass grafting) planned ([id number]).. Family history: No family history items have [...] Color Yellow Urine Appearance Clear Urine Specific [place] >1.030 HI Urine pH Dipstick 6.0 Urine [...] % 19.5 % Lymph # 2.22 x10(3)/uL [place] % 8.9 % [place] # 1.01 K/uL HI Eos % 4.0 % Eos # 0.46 x10(3)/uL Baso % 0.6 % Baso # 0.07 x10(3)/uL nRBC 0.020 HI Slide Review No IG# 0.08 x10(3)/uL HI IG% 0.70 % HI PT 10.3 Second(s) INR 1.0 PTT 29.6 Second(s) . Radiology results: Radiology Results (Last 48 hours) [id number] -- 04/08/2019 10:42 US Scrotum and Contents [...] EST, Discharge to: Home . Prescriptions: Prescription It Security Analyst Pharmacy: [facility] rectal enema [...]
--- OUTSIDE RECORDS SUMMARY | 2024-10-28 23:46 | XMS_ITS | Referral Summary ---
Author Organization [employer] Address [address] [place] [address] Care Team Providers Care Material Handling Supervisor Name Role Phone Unavailable Primary Care [...]
--- OUTSIDE RECORDS SUMMARY | 2024-10-28 23:46 | XMS_ITS | Encounter Summary ---
Author Organization [employer] Address [address] [place] [address] Care Team Providers Care Painting And Coating Worker Name Role Phone Unavailable Primary Care Provider Unavailabl e Encounter Details Date Type Department Care Team (Late st Contact Info) Description 04/08/2019 Transcribed Document [facility] [place] [address] [place] [address] ProviderMelanie MD [facility] [place], [place] [id number] Social History Tobacco Use Types Packs/Day Years Used Date Smoking Tobacco: Never Assessed Sex and Gender Information Value Date Recorded Sex Assigned at Not on file Legal Sex Male 4:07 PM CDT Gender Identity Not on file Sexual Orientation Not on file documented as of this encounter Miscellaneous Notes * Cerner Conversion Note - Historical ProviderMD - 04/08/2019 11:03 AM MOLD DUMPER Pain Assessment Entered On: 04/08/2019 12:31 EST [...]
--- OUTSIDE RECORDS SUMMARY | 2024-10-28 23:46 | XMS_ITS | Encounter Summary ---
Author Organization [employer] Address [address] [place] [address] Care Team Providers Care Financial Systems Administrator Name Role Phone Unavailable Primary Care Provider Unavailabl e Encounter Details Date Type Department Care Team (Late st Contact Info) Description 06/28/2019 Transcribed Document [facility] [place] [address] [place] [address] ProviderMelanie MD [address] [place] [address] Social History Tobacco Use Types Packs/Day Years Used Date Smoking Tobacco: Never Assessed Sex and Gender Information Value Date Recorded Sex Assigned at Not on file Legal Sex Male 4:07 PM CDT Gender Identity Not on file Sexual Orientation Not on file documented as of this encounter Miscellaneous Notes * Cerner Conversion Note - Melanie ProviderMD - 06/28/2019 11:16 PM BINDER LAYER Patient: TERRI VARGAS Age: 59 years Sex: [...] % 33.5 % Lymph # 2.97 x10(3)/uL [place] % 7.4 % [place] # 0.66 K/uL Eos % 5.1 % [...]
--- OUTSIDE RECORDS SUMMARY | 2024-10-28 23:46 | XMS_ITS | Encounter Summary ---
Author Organization [employer] Address [address] [place] [address] Care Team Providers Care Laborer Heading Name Role Phone Unavailable Primary Care Provider Unavailabl e Encounter Details Date Type Department Care Team (Late st Contact Info) Description 06/28/2019 Transcribed Document [facility] [place] Medicine [address] [place] [address] ProviderMelanie MD [facility] [place], [place] [address] Social History Tobacco Use Types Packs/Day Years Used Date Smoking Tobacco: Never Assessed Sex and Gender Information Value Date Recorded Sex Assigned at Not on file Legal Sex Male 4:07 PM CDT Gender Identity Not on file Sexual Orientation Not on file documented as of this encounter Miscellaneous Notes * Cerner Conversion Note - Melanie ProviderMD - 06/28/2019 10:50 PM VICE PRESIDENT OF CONSULTING SERVICES ED Assessment Entered On: 06/28/2019 23:13 EST Performed On: 06/28/2019 23:09 EST by Layla Vick, VETERINARY TECHNOLOGIST Quick Look Assessment Level of Consciousness : Alert, Awake Affect/Behavior : Appropriate, Cooperative Orientation : Oriented x 4 Skin Temperature : Warm Skin Description : Normal for ethnicity Layla Vick, RN - 06/28/2019 23:09 EST ED General-Functional Assess Information Obtained From : Patient Preferred Communication Mode : Verbal Communication Barrier : None Primary Language : Estonian Any Spiritual/Cultural Needs or Requests : No [...] Respiratory Respiratory Assessment WDL : [place] Layla Vikc, RN - 06/28/2019 23:09 EST Gastrointestinal ED Gastrointestinal Assessment WDL : LIS[place]TE Layla Vick, RN - 06/28/2019 23:09 EST Genitourinary Assessment, ED Genitourinary Assessment WDL : [facility] with exceptions (Comment: Pt c/o [...] EST Musculoskeletal Musculoskeletal Assessment WDL : Layla Rodriguez, ANAT - 06/28/2019 23:09 EST Integumentary Assessment [...]
--- OUTSIDE RECORDS SUMMARY | 2024-10-28 23:46 | XMS_ITS | Encounter Summary ---
Author Organization [employer] Address [address] [place] [address] Care Team Providers Care Reference Library Assistant Name Role Phone Unavailable Primary Care Provider Unavailabl e Encounter Details Date Type Department Care Team (Late st Contact Info) Description 06/16/2019 Transcribed Document [facility] [place] [facility] [place] [address] ProviderMelanie MD [address] [place] [phone] Social History Tobacco Use Types Packs/Day Years Used Date Smoking Tobacco: Never Assessed Sex and Gender Information Value Date Recorded Sex Assigned at Not on file Legal Sex Male 4:07 PM CDT Gender Identity Not on file Sexual Orientation Not on file documented as of this encounter Miscellaneous Notes * Cerner Conversion Note - Historical ProviderMD - 06/16/2019 10:[address] LIGHT REPAIRER DATE OF CONSULTATION: 06/16/2019 HISTORY: This is [...] has seen his urologist, Dr. Arguello, at [facility]. The plan now is to [...] surgical wound covers such as Prevena NPWT. /[id number] MD MELI Terry III/LESLEY / MELI / JOVANY /[id number] documented in this encounter Plan of Treatment Not on file documented as of this encounter Visit Diagnoses Not on filedocumented in this encounter
--- OUTSIDE RECORDS SUMMARY | 2024-10-28 23:46 | XMS_ITS | Encounter Summary ---
Author Organization [employer] Address [address] [place] [address] Care Team Providers Care Clipper Machine Name Role Phone Unavailable Primary Care Provider Unavailabl e Encounter Details Date Type Department Care Team (Late st Contact Info) Description 04/08/2019 Transcribed Document [facility] [place] [address] [place] [address] ProviderMelanie MD [address] [place] [address] Social History Tobacco Use Types Packs/Day Years Used Date Smoking Tobacco: Never Assessed Sex and Gender Information Value Date Recorded Sex Assigned at Not on file Legal Sex Male 4:07 PM CDT Gender Identity Not on file Sexual Orientation Not on file documented as of this encounter Miscellaneous Notes * Cerner Conversion Note - Melanie Grider MD - 04/08/2019 3:10 PM CELLAR HAND [facility] [place] [address] TERRI MOREL :1960 Visit Time:04/08/2019 [...] Within 3 to 5 days Where: [address] [facility] [place] [address]- Business (1) Follow Up with SUKHJINDER SHRESTHA When Within 2 to 3 days Where: [address] [place] [address]- x8 Business (1) Allergies No Known Allergies [...] range between ( 0.0 and 7.0 ) [place] #: 1.01 K/uL -- Normal range between ( 0.16 and 1.00 ) Eos #: 0.46 x10(3)/uL -- Normal range between ( 0.00 and 0.80 ) [place] %: 8.9 % -- Normal range between [...] ) Urine Bilirubin Dipstick: Negative Urine Specific [place]: >1.030 -- Normal range between ( 1.005 [...] in fiber, or overly processed, such as maltese fries, hamburgers, cookies, candies, and soda. ??? Drink enough fluid to keep your urine clear or pale yellow. General instructions ??? Exercise regularly or as told by your health care provider. ??? Go to the restroom when you have the urge to go. Do not hold it in. ??? Take odby-cjq-lxtrirt and prescription medicines only as told by [...] 01/30/2005 Document Revised: 11/21/2016 Document Reviewed: 10/22/2016 [employer] Patient Education ?? 2019 [employer] Scrotal Hematoma Scrotal hematoma is a [...] minutes, 2???3 times a day. ??? Take xfvy-dwg-kifogin and prescription medicines only as told by [...] 08/03/2007 Document Revised: 08/11/2017 Document Reviewed: 08/11/2017 Else[employer]ultSpace Interactive Patient Education ?? 2019 [employer] Emergency Awareness and Preventative Care STROKE [...] Assistance with quitting is available by contacting 5-331-QIQBNOW. This is a free resource providing counseling, support, and referral. Or you may contact your personal physician. [place] Suicide Prevention Lifeline: The National Suicide Prevention [...] was given the opportunity to ask questions. Patient/Sign Builder Name: Patient/Sign Builder Signature: Relationship to Patient: Clinician/Hospital Sign Builder Signature: Please Provide a Telephone Number Where You Can Be Reached: Is it Permissible To Leave a Message? Date: Electronically signed by Interface, [facility] Conversion Metalsmith Apprentice Olivianer at 09/05/2022 2:15 PM CDT documented in this encounter Plan of Treatment Not on file documented as of this encounter Visit Diagnoses Not on filedocumented in this encounter
--- OUTSIDE RECORDS SUMMARY | 2024-10-28 23:46 | XMS_ITS | Encounter Summary ---
Author Organization [employer] Address [address] [place] [address] Care Team Providers Care Account Development Associate Name Role Phone Unavailable Primary Care Provider Unavailabl e Encounter Details Date Type Department Care Team (Late st Contact Info) Description 09/06/2018 Transcribed Document [facility] [place] [address] [place] [address] ProviderMelanie MD [facility] [place] [address] Social History Tobacco Use Types Packs/Day Years [...] no sleepiness and scores 4/24 in the [place] Sleepiness Scale. He previously had noted insomnia [...] 6. Melatonin. 7. Tradjenta. 8. Glimepiride. 9. [place]. 10. Omeprazole. 11. Bupropion. 12. Janumet. 13. [...] 09/07/2018 04:03:20 CC1: Yrn Calixto M.D. CC2: José Elizabeth MD documented in this encounter Plan of Treatment Not on file documented as of this encounter Visit Diagnoses Not on filedocumented in this encounter
--- OUTSIDE RECORDS SUMMARY | 2024-10-28 23:46 | XMS_ITS | Encounter Summary ---
Author Organization [employer] Address [address] [place] [address] Care Team Providers Care Movie Star Name Role Phone Unavailable Primary Care Provider Unavailabl e Encounter Details Date Type Department Care Team (Late st Contact Info) Description 09/27/2019 Transcribed Document [facility] [place] [address] [place] [address] ProviderMelanie MD Counts include [facility] at [facility] [place], [place] [address] Social History Tobacco Use Types Packs/Day Years [...] 8. Melatonin. 9. Tradjenta. 10. Glimepiride. 11. [place]. 12. Omeprazole. 13. Buprenorphine. 14. Januvia. 15. [...] up in 1 year and as needed. Xlkf-lz-lbij time today was 15 minutes with more than half of this in counseling regarding smoking and his use of CPAP. /[id number] MD JANES Jeffrey/LESLEY / JS / MODL /[id number] CC: José Elizabeth MD documented in this encounter Plan of Treatment Not on file documented as of this encounter Visit Diagnoses Not on filedocumented in this encounter
--- OUTSIDE RECORDS SUMMARY | 2024-10-28 23:46 | XMS_ITS | Encounter Summary ---
Author Organization [employer] Address [address] [place] [address] Care Team Providers Care Line Service Technician Name Role Phone Unavailable Primary Care Provider Unavailabl e Encounter Details Date Type Department Care Team (Late st Contact Info) Description 04/08/2019 Transcribed Document [facility] [place] [address] [place] [address] ProviderMelanie MD [facility] [place], [place] [address] Social History Tobacco Use Types Packs/Day Years Used Date Smoking Tobacco: Never Assessed Sex and Gender Information Value Date Recorded Sex Assigned at Not on file Legal Sex Male 4:07 PM CDT Gender Identity Not on file Sexual Orientation Not on file documented as of this encounter Miscellaneous Notes * Cerner Conversion Note - Melanie ProviderMD - 04/08/2019 10:42 AM HYDRO PNEUMATIC TESTER ED Triage Entered On: 04/08/2019 10:52 EST [...] : 3 - Urgent Tracking Group : [facility] ED KEN REBOLLEDO - 04/08/2019 10:49 EST [...] Onset Date: Unspecified ; Created By: CONTRIBUTOR_SYSTEM, HIST_X-BOLT OrthapaedicsMIHIR; Reaction Status: Active ; Category: Drug ; [...] PNED ; Probability: 0 ; Diagnosis Code: [id number] ED Height and Weight Height Source : Stated Height Entry Format : [place] Height, Feet : 5 ft(Converted to: 152 cm, 60 Inch) Height, Inches : 11 Inch(Converted to: 0 ft 11 Inch, 27.94 cm) Clinical Height : 180.34 cm Weight Source, ED : Critical estimated dosing weight Weight Entry Format : [place] Weight, Pounds : 230 lb Clinical Dosing Weight : 104.55 kg Body Surface Area (BSA) : 2.24 m2 Body Mass Index : 32.1 kg/m2 (HI) [place] Body Weight (IBW) : 74.31 kg KEN REBOLLEDO - 04/08/2019 10:49 EST documented in this encounter Plan of Treatment Not on file documented as of this encounter Visit Diagnoses Not on filedocumented in this encounter
== END 2024-10-27 23:59 | disposition home or self-care (01) ==
LOC: LAB.DROPOF 10-28 23:43
PROVIDERS: PCP Family Medicine; Visit Provider Family Medicine
DX: E87.1 Hypo-osmolality and hyponatremia (principal)
CPT/HCPCS: 80048

== ENCOUNTER 2024-10-31 10:16 | Emergency (ER) | payer MEDICARE, SELFPAY ==
[2024-10-31] VITALS (8 sets, daily range): BP systolic 92–142; BP diastolic 64–100; PULSE 77–97; RESP 15–16; TEMP 36.6–36.7; O2SAT 95–98; BMI 31.5
--- NOTE | 2024-10-31 10:22 | ED_ITS ---
Discharge Plan Disposition Patient Disposition: Home, Self-Care Condition: Good Prescriptions Prescriptions: New methocarbamol 750 mg tablet 750 mg PO Q6H PRN (Reason: muscle spasm) Qty: 20 0RF No Action metformin 500 mg tablet extended release 24 hr 500 mg PO BID atorvastatin 40 mg tablet See Rx Instructions .ROUTE .COMPLEX Qty: 90 3RF Dose Instruction: TAKE 1 TABLET BY MOUTH ONCE DAILY Rx Instructions: TAKE 1 TABLET BY MOUTH ONCE DAILY carvedilol 12.5 mg tablet 12.5 mg PO BID Qty: 180 3RF clopidogrel 75 mg tablet 75 mg PO DAILY Qty: 90 0RF Entresto 97-103 mg tablet See Rx Instructions .ROUTE .COMPLEX Qty: 180 3RF Dose Instruction: TAKE ONE TABLET BY MOUTH TWICE DAILY Rx Instructions: TAKE ONE TABLET BY MOUTH TWICE DAILY spironolactone 50 mg tablet See Rx Instructions .ROUTE .COMPLEX Qty: 90 5RF Dose Instruction: TAKE ONE TABLET BY MOUTH EVERY DAY Rx Instructions: TAKE ONE TABLET BY MOUTH EVERY DAY oxycodone-acetaminophen 10-325 mg tablet 1 tab PO insulin glargine 100 unit/mL (3 mL) insulin pen 10 unit SQ HS Qty: 3 2RF (DME) OneTouch Ultra Test Strip See Rx Instructions .Route Qty: 50 8RF Rx Instructions: test sugar qid insulin regular human 100 unit/mL (3 mL) insulin pen 1 sliding scale dose SQ USEASDIRECTD Qty: 15 2RF Rx Instructions: give 10 U subq for before meal up q 4-6 hours if fingerstick glucose reading is above 300 Ozempic 0.25 mg or 0.5 mg (2 mg/3 mL) pen injector 0.25 mg SQ WEEKLY Qty: 3 0RF Rx Instructions: for 4 weeks (DME) OneTouch Ultra Test Strip See Rx Instructions .Route Qty: 50 2RF Rx Instructions: daily testing varenicline tartrate 1 mg tablet See Rx Instructions .ROUTE .COMPLEX Qty: 56 3RF Dose Instruction: TAKE 1 TABLET BY MOUTH TWICE DAILY Rx Instructions: TAKE 1 TABLET BY MOUTH TWICE DAILY omeprazole 40 mg capsule,delayed release(DR/EC) See Rx Instructions .ROUTE .COMPLEX Qty: 180 1RF Dose Instruction: TAKE 1 CAPSULE BY MOUTH TWICE DAILY - SWALLOW WHOLE; DO NOT CRUSH, CHEW, DISSOLVE, CUT, BREAK Rx Instructions: TAKE 1 CAPSULE BY MOUTH TWICE DAILY - SWALLOW WHOLE; DO NOT CRUSH, CHEW, DISSOLVE, CUT, BREAK duloxetine 60 mg capsule,delayed release(DR/EC) See Rx Instructions .ROUTE .COMPLEX Qty: 90 1RF Dose Instruction: TAKE 1 CAPSULE BY MOUTH ONCE DAILY Rx Instructions: TAKE 1 CAPSULE BY MOUTH ONCE DAILY Jardiance 25 mg tablet See Rx Instructions .ROUTE .COMPLEX Qty: 90 3RF Dose Instruction: TAKE 1 TABLET BY MOUTH ONCE DAILY Rx Instructions: TAKE 1 TABLET BY MOUTH ONCE DAILY (DME) pen needle, diabetic [Comfort Touch Pen Needle] 31 gauge x 5/32 needle See Rx Instructions .Route Qty: 100 6RF Rx Instructions: As directed, ONCE DAILY glimepiride 4 mg tablet See Rx Instructions .ROUTE .COMPLEX Qty: 90 0RF Dose Instruction: TAKE 1 TABLET BY MOUTH ONCE DAILY Rx Instructions: TAKE 1 TABLET BY MOUTH ONCE DAILY magnesium 500 mg Tablet 500 mg PO DAILY aspirin 325 mg Tablet 325 mg PO DAILY potassium 99 mg Tablet 99 mg PO BID nitroglycerin 0.4 mg Tablet, Sublingual See Rx Instructions .ROUTE .COMPLEX Rx Instructions: 0.4 mg sublingually gabapentin 600 mg tablet 600 mg PO TID Referrals Follow up/Referrals: Devan Oconnell MD [Staff Physician, Cardiology] - See instructions Claudy Kim MD [Primary Care Provider, Family Practice] - See instructions Activity Restrictions/Add. Instructions Additional Instructions/Restrictions: As we discussed I am sending you to see the fundraising manager regarding your peripheral arterial disease. Please call to make your appointment. Please follow-up with your PCP for any persistent new or worsening signs or symptoms or return to the ER as needed. Clinical Impressions Clinical Impression: PAOD (peripheral arterial occlusive disease) Print Language Print Language: Turkish Discharge ED Provider: Roque Briceño General Adult HPI <ISADORA Balbuena - Last Filed: 10/31/24 13:23> General Chief complaint: Extremity Injury, Lower Stated complaint: pain in both legs blockage in right name Time Seen by Provider: 10/31/24 10:21 History of Present Illness HPI narrative: Patient presents for evaluation of bilateral lower extremity pain. Patient has been having right inguinal pain since October 16. He has been evaluated in the emergency department for this once primarily in indirectly on 10/25/2024 after a fall and he had a CTA done of the abdomen which showed superficial femoral artery stenosis but no other acute intra-abdominal pathology. Patient states today that he began having left inguinal pain that began upon waking this morning. Patient states his left leg hurts at rest or walking but both of them hurt when trying to ambulate. Patient can ambulate however. He denies any numbness tingling no focal neurologic deficits shortness of breath fever chills hemoptysis hematochezia melena nausea vomiting diarrhea. No loss of bowel or bladder function and he is able to urinate and pass stool normally. Related Data Home Medications ?Medication ?Instructions ?Recorded ?Confirmed gabapentin 600 mg tablet 600 mg PO TID 09/03/2310/27 aspirin 325 mg tablet 325 mg PO DAILY 02/17/2405/11 magnesium 500 mg tablet 500 mg PO DAILY 02/17/2405/11 nitroglycerin 0.4 mg sublingual See Rx Instructions .R oute .COMPLEX 02/17/24 10/27/24 tablet potassium 99 mg tablet 99 mg PO BID 02/17/24 oxycodone-acetaminophen 10 mg-325 1 tab PO 02/24/24 mg tablet metformin 500 mg tablet,extended 500 mg PO BID 5 10/27/24 release 24 hr Previous Rx's ?Medication ?Instructions ?Recorded blood sugar diagnostic (OneTouch #50 ea 11/10/23 Ultra Test strips) atorvastatin 40 mg tablet See Rx Instructions .Route 0 07/13/24 .COMPLEX #90 ea carvedilol 12.5 mg tablet 12.5 mg PO BID #180 tabs clopidogrel 75 mg tablet 75 mg PO DAILY #90 tabs 06/19 11/09 sacubitril 97 mg-valsartan 103 mg See Rx Instructions .Route 07/13/24 tablet (Entresto) .COMPLEX #180 tabs spironolactone 50 mg tablet See Rx Instructions .Route 07/13/24 .COMPLEX #90 tabs varenicline tartrate 1 mg tablet See Rx Instructions . Route 07/25/24 .COMPLEX #56 ea duloxetine 60 mg capsule,delayed See Rx Instructions . Route 08/22/24 release .COMPLEX #90 caps omeprazole 40 mg capsule,delayed See Rx Instructions . Route 08/22/24 release .COMPLEX #180 caps empagliflozin 25 mg tablet See Rx Instructions .Route 08/30/24 (Jardiance) .COMPLEX #90 tabs insulin glargine 100 unit/mL (3 10 unit (0.1 mL) SQ HS #3 mL 09/02/24 mL) subcutaneous pen pen needle, diabetic 31 gauge x #100 ea 09/02/24 (Comfort Touch Pen Needle) glimepiride 4 mg tablet See Rx Instructions .Route 0 09/19/24 .COMPLEX #90 tabs blood sugar diagnostic (OneTouch #50 ea 10/07/24 Ultra Test strips) insulin regular human 100 unit/mL 1 sliding scale dose SQ 10/07/24 (3 mL) subcutaneous pen USEASDIRECTD #15 mL semaglutide 0.25 mg or 0.5 mg (2 0.25 mg (0.368 mL) SQ WEEKLY #3 mL 10/07/24 mg/3 mL) subcutaneous pen injector (Ozempic) methocarbamol 750 mg tablet 750 mg PO Q6H PRN muscle s pasm #20 10/31/24 tabs Allergies Allergy/AdvReac Type Severity Reaction Status Date / Time dobutamine AdvReac Unknown Hypertensio Verified 10/27/24 10:51 n [facility] <ISADORA Balbuena - Last Filed: 10/31/24 13:23> [facility] Disclaimer: The information contained in this section may have been updated after the patient was seen, as this information can be updated by other users. Medical History Ear drainage right Generalized headaches Ear pain, right Pneumonia Cardiogenic shock On mechanically assisted ventilation Acute respiratory failure with hypoxia Abdominal pain Constipation Deviated nasal septum Hypertrophy of inferior nasal turbinate Sinusitis Mixed restrictive and obstructive lung disease Cardiac pacemaker in situ Pulmonary emphysema Smoking greater than 30 pack years Dyspnea on exertion Lung mass Nodule of right lung Right maxillary sinusitis HFrEF (heart failure with reduced ejection fraction) Impacted cerumen of right ear Dizziness Abnormal electrocardiogram [ECG] [EKG] ANNA (obstructive sleep apnea) Hyperlipidemia Depression Anxiety Gastroesophageal reflux disease Insomnia Coronary artery disease History of TIA (transient ischemic attack) Hypertension Diabetes mellitus Epididymitis Palpitations Opiate withdrawal TIA (transient ischemic attack) Surgical History History of removal of testicle History of hernia surgery History of cholecystectomy History of right mastoidectomy History of coronary artery bypass graft Family History Other Diabetes Social History (Updated 10/27/24 @ 10:54 by MARYSOL Guaman) Smoking Status: Current every day smoker tobacco type: cigarettes packs per day: 1 quit status: considering quitting alcohol intake: never substance use type: denies use current occupational status: disabled Travel in the last 8 weeks?: None household members: spouse and children housing: house Have you lived/traveled outside [place] in past 30 days?: No Contact w/someone who lives/traveled outside US past 30 days?: No Exposure to someone with infectious disease in past 14 days?: No Do you have a fever (greater than 100.4 F or 38 C)?: No Have you tested positive for COVID-19?: No Exposed to someone with COVID-19 in past 14 days?: No Do you have a sore throat?: No Do you have a cough?: No Do you have any weakness?: No Do you have any diarrhea?: No Are you experiencing any unusual bleeding?: No Do you have any muscle aches/pain?: No Do you have any abdominal pain?: No Are you experiencing loss of taste or smell?: No Other Medical History Have you received the Flu Vaccine for this season: No Have you received the Pneumonia Vaccine: Yes <ISADORA Balbuena - Last Filed: 10/31/24 13:23> ROS Obtained: Yes Systems reviewed as appropriate & no additional complaints except as documented Physical Exam <ISADORA Balbuena - Last Filed: 10/31/24 13:23> General General appearance: alert and in no apparent distress Respiratory Respiratory exam: Present normal lung sounds bilaterally Cardiovascular Cardiovascular exam: Present regular rate Neurological Exam Neurological exam: Present alert and oriented X3 Medical Decision Making <ISADORA Balbuena - Last Filed: 10/31/24 13:23> Medical Records Medical records reviewed: Yes I reviewed the patient's medical records. Screening: Per USPSTF and CDC recommendations, given the prevalence of disease in our region, it is our hospital?s policy to screen for HIV and viral Hepatitis for all patients aged 18 and over and those with ongoing risk factors. George Inquiry Pt receiving controlled substance: No Vital Signs: 10/31/24 10:29 10/31/24 10:30 10/31/24 11:00 Temperature 97.8 F Temperature Source Oral Pulse Rate 87 90 Pulse Rate [Right Radial] 97 H Respiratory Rate 15 Blood Pressure 131/98 H 127/82 Blood Pressure [Right Arm] 134/100 H Blood Pressure Mean 114 97 Blood Pressure Mean [Right Arm] 111 Blood Pressure Source [Right Arm] Automatic Cuff Blood Pressure Position [Right Arm] Sitting 02 Sat by Pulse Oximetry 98 95 98 Oxygen Delivery Method Room Air 10/31/24 11:31 10/31/24 12:00 10/31/24 12:31 Temperature Temperature Source Pulse Rate 78 77 80 Pulse Rate [Right Radial] Respiratory Rate Blood Pressure 141/82 H 129/86 92/64 L Blood Pressure [Right Arm] Blood Pressure Mean 101 94 74 Blood Pressure Mean [Right Arm] Blood Pressure Source [Right Arm] Blood Pressure Position [Right Arm] 02 Sat by Pulse Oximetry 97 97 96 Oxygen Delivery Method 10/31/24 13:00 10/31/24 13:23 Temperature 98.0 F Temperature Source Pulse Rate 81 81 Pulse Rate [Right Radial] Respiratory Rate 16 Blood Pressure 142/94 H 142/94 H Blood Pressure [Right Arm] Blood Pressure Mean 105 Blood Pressure Mean [Right Arm] Blood Pressure Source [Right Arm] Blood Pressure Position [Right Arm] 02 Sat by Pulse Oximetry 97 Oxygen Delivery Method Lab Data Lab results reviewed: Yes I reviewed the patient's lab results. Lab Results 10/31/24 10:40: WBC 6.2, RBC 5.23, Hgb 15.1, Hct 47.1, MCV 90.1, MCH 28.9, MCHC 32.1, RDW 14.9, Plt Count 163, MPV 11.9 H, Neut % (Auto) 63.7, Lymph % (Auto) 24.3, [place] % (Auto) 9.2, Eos % (Auto) 1.6, Baso % (Auto) 0.6, Neut # (Auto) 3.9, Lymph # (Auto) 1.5, [place] # (Auto) 0.6, Eos # (Auto) 0.1, Baso # (Auto) 0.0, ESR 26 H, D-Dimer 0.54 H, Sodium 136, Potassium 4.9, Chloride 104, Carbon Dioxide 26, Anion Gap 10.9, BUN 42 H, Creatinine 1.40 H, Estimated Creat Clear 76, E stimated GFR 51 L, Est GFR ( Amer) 62, Glucose 270 H, Calcium 9.6, Magnesium 2.1, Total Bilirubin 0.4, AST 25, ALT 20, Alkaline Phosphatase 132 H, Total Creatine Kinase 38 L, C-Reactive Protein 1.8, Total Protein 7.7, Albumin 4.3, Globulin 3.4 H, Albumin/Globulin Ratio 1.3, Acetone Level None detected 10/31/24 11:05: Lactate 1.1 10/31/24 10:40 10/31/24 10:40 Orders (Tests/Meds): ED MEDICATIONS Discontinued Medications Generic Name Dose Route Start Last Admin Trade Name Freq PRN Reason Stop Dose Admin Acetaminophen 1,000 mg 10/31/24 10:28 10/31/24 10:47 Acetaminophen 500mg Tab PO 10/31/24 10:29 1,000 mg ONCE ONE Administration Iopamidol 100 ml 10/31/24 11:16 10/31/24 11:18 Iopamidol-370 (76%);100ml Bottle IV 10/31/24 11:17 100 ml ONCE ONE Administration Iopamidol 20 ml 10/31/24 11:17 10/31/24 11:18 Iopamidol-370 (76%);100ml Bottle IV 10/31/24 11:18 20 ml ONCE ONE Administration Ketorolac Tromethamine 15 mg 10/31/24 10:28 10/31/24 10:47 Ketorolac 30mg/Ml Vial IV 10/31/24 10:29 15 mg ONCE ONE Administration Methocarbamol 500 mg 10/31/24 10:28 10/31/24 10:47 Methocarbamol 500mg Tablet PO 10/31/24 10:29 500 mg ONCE ONE Administration Sodium Chloride 50 ml 10/31/24 11:16 10/31/24 11:18 0.9 % Sodium Chloride 50 Ml Vial IV 10/31/24 11:17 50 ml ONCE ONE Administration Sodium Chloride 10 ml 10/31/24 11:16 10/31/24 11:18 Sodium Chloride 0.9% 10ml Syr (Rad Only) IV 10/31/24 11:17 10 ml ONCE ONE Administration Sodium Chloride 50 ml 10/31/24 11:17 10/31/24 11:18 0.9 % Sodium Chloride 50 Ml Vial IV 10/31/24 11:18 50 ml ONCE ONE Administration ORDERS Category Date Time Status CT angio abdomen/femoral Stat Cat Scan 10/31/24 10:52 Completed Acetone, Serum (Rapid) Stat Lab 10/31/24 10:40 Completed CBC w/Auto Diff [Complete Blood Count Auto Diff] Stat Lab 10/31/24 10:40 Completed CK [Creatine Kinase] Stat Lab 10/31/24 10:40 Completed CMP [Comprehensive Metabolic Panel] Stat Lab 10/31/24 10:40 Completed CRP [C-Reactive Protein] Stat Lab 10/31/24 10:40 Completed D-Dimer Stat Lab 10/31/24 10:40 Completed ESR [Erythrocyte Sedimentation Rate] Stat Lab 10/31/24 10:40 Completed Lactic Acid Stat Lab 10/31/24 11:05 Completed Magnesium Stat Lab 10/31/24 10:40 Completed Medical Decision Narrative: In summary patient is a 64-year-old male who presents to the emergency department for evaluation of bilateral proximal lower extremity pain in the inguinal area. Patient is hemodynamically stable with normal sinus rhythm at 97 on the bedside monitor upon arrival, afebrile at 97.8. Physical exam is remarkable for tenderness to palpation in the bilateral inguinal area however there is no palpable masses. Femoral pulses are strong. Patient is neurovascularly intact distally with strong DP and PT pulses, no dependent edema noted. Patient has full range of motion, external genitalia normal scrotums normal normal scrotal contents. Differential diagnosis includes peripheral artery disease versus peripheral vascular disease versus musculoskeletal strain etc. Initial workup will be conducted with hematologic labs CT angio aorta with runoff to the toes. Initial interventions include crystalloid bolus Tylenol Robaxin Toradol. Initial workup reviewed by me and patient's hematologic labs are nonactionable and my informal interpretation of his CTA aorta with runoff shows shows significant occlusive disease bilaterally but more prominently on the right in the arterial system with reconstitution distally.. Upon repeat evaluation had complete resolution of his symptoms after initial intervention. Given this patient is appropriate for discharge with referral to Dr. Oconnell for further evaluation and a prescription for meloxicam sent to his pharmacy. Patient given strict return precautions and close follow-up with his PCP. <Roque Briceño MD - Last Filed: 10/31/24 15:26> Vital Signs: 10/31/24 10:29 10/31/24 10:30 10/31/24 11:00 Temperature 97.8 F Temperature Source Oral Pulse Rate 87 90 Pulse Rate [Right Radial] 97 H Respiratory Rate 15 Blood Pressure 131/98 H 127/82 Blood Pressure [Right Arm] 134/100 H Blood Pressure Mean 114 97 Blood Pressure Mean [Right Arm] 111 Blood Pressure Source [Right Arm] Automatic Cuff Blood Pressure Position [Right Arm] Sitting 02 Sat by Pulse Oximetry 98 95 98 Oxygen Delivery Method Room Air 10/31/24 11:31 10/31/24 12:00 10/31/24 12:31 Temperature Temperature Source Pulse Rate 78 77 80 Pulse Rate [Right Radial] Respiratory Rate Blood Pressure 141/82 H 129/86 92/64 L Blood Pressure [Right Arm] Blood Pressure Mean 101 94 74 Blood Pressure Mean [Right Arm] Blood Pressure Source [Right Arm] Blood Pressure Position [Right Arm] 02 Sat by Pulse Oximetry 97 97 96 Oxygen Delivery Method 10/31/24 13:00 10/31/24 13:23 Temperature 98.0 F Temperature Source Pulse Rate 81 81 Pulse Rate [Right Radial] Respiratory Rate 16 Blood Pressure 142/94 H 142/94 H Blood Pressure [Right Arm] Blood Pressure Mean 105 Blood Pressure Mean [Right Arm] Blood Pressure Source [Right Arm] Blood Pressure Position [Right Arm] 02 Sat by Pulse Oximetry 97 Oxygen Delivery Method Lab Data Lab Results 10/31/24 10:40: WBC 6.2, RBC 5.23, Hgb 15.1, Hct 47.1, MCV 90.1, MCH 28.9, MCHC 32.1, RDW 14.9, Plt Count 163, MPV 11.9 H, Neut % (Auto) 63.7, Lymph % (Auto) 24.3, [place] % (Auto) 9.2, Eos % (Auto) 1.6, Baso % (Auto) 0.6, Neut # (Auto) 3.9, Lymph # (Auto) 1.5, [place] # (Auto) 0.6, Eos # (Auto) 0.1, Baso # (Auto) 0.0, ESR 26 H, D-Dimer 0.54 H, Sodium 136, Potassium 4.9, Chloride 104, Carbon Dioxide 26, Anion Gap 10.9, BUN 42 H, Creatinine 1.40 H, Estimated Creat Clear 76, E stimated GFR 51 L, Est GFR ( Amer) 62, Glucose 270 H, Calcium 9.6, Magnesium 2.1, Total Bilirubin 0.4, AST 25, ALT 20, Alkaline Phosphatase 132 H, Total Creatine Kinase 38 L, C-Reactive Protein 1.8, Total Protein 7.7, Albumin 4.3, Globulin 3.4 H, Albumin/Globulin Ratio 1.3, Acetone Level None detected 10/31/24 11:05: Lactate 1.1 Orders (Tests/Meds): ED MEDICATIONS Discontinued Medications Generic Name Dose Route Start Last Admin Trade Name Vandana PRN Reason Stop Dose Admin Acetaminophen 1,000 mg 10/31/24 10:28 10/31/24 10:47 Acetaminophen 500mg Tab PO 10/31/24 10:29 1,000 mg ONCE ONE Administration Iopamidol 100 ml 10/31/24 11:16 10/31/24 11:18 Iopamidol-370 (76%);100ml Bottle IV 10/31/24 11:17 100 ml ONCE ONE Administration Iopamidol 20 ml 10/31/24 11:17 10/31/24 11:18 Iopamidol-370 (76%);100ml Bottle IV 10/31/24 11:18 20 ml ONCE ONE Administration Ketorolac Tromethamine 15 mg 10/31/24 10:28 10/31/24 10:47 Ketorolac 30mg/Ml Vial IV 10/31/24 10:29 15 mg ONCE ONE Administration Methocarbamol 500 mg 10/31/24 10:28 10/31/24 10:47 Methocarbamol 500mg Tablet PO 10/31/24 10:29 500 mg ONCE ONE Administration Sodium Chloride 50 ml 10/31/24 11:16 10/31/24 11:18 0.9 % Sodium Chloride 50 Ml Vial IV 10/31/24 11:17 50 ml ONCE ONE Administration Sodium Chloride 10 ml 10/31/24 11:16 10/31/24 11:18 Sodium Chloride 0.9% 10ml Syr (Rad Only) IV 10/31/24 11:17 10 ml ONCE ONE Administration Sodium Chloride 50 ml 10/31/24 11:17 10/31/24 11:18 0.9 % Sodium Chloride 50 Ml Vial IV 10/31/24 11:18 50 ml ONCE ONE Administration ORDERS Category Date Time Status CT angio abdomen/femoral Stat Cat Scan 10/31/24 10:52 Completed Acetone, Serum (Rapid) Stat Lab 10/31/24 10:40 Completed CBC w/Auto Diff [Complete Blood Count Auto Diff] Stat Lab 10/31/24 10:40 Completed CK [Creatine Kinase] Stat Lab 10/31/24 10:40 Completed CMP [Comprehensive Metabolic Panel] Stat Lab 10/31/24 10:40 Completed CRP [C-Reactive Protein] Stat Lab 10/31/24 10:40 Completed D-Dimer Stat Lab 10/31/24 10:40 Completed ESR [Erythrocyte Sedimentation Rate] Stat Lab 10/31/24 10:40 Completed Lactic Acid Stat Lab 10/31/24 11:05 Completed Magnesium Stat Lab 10/31/24 10:40 Completed Medical Decision Narrative: In summary patient is a 64-year-old male who presents to the emergency department for evaluation of bilateral proximal lower extremity pain in the inguinal area. Patient is hemodynamically stable with normal sinus rhythm at 97 on the bedside monitor upon arrival, afebrile at 97.8. Physical exam is remarkable for tenderness to palpation in the bilateral inguinal area however there is no palpable masses. Femoral pulses are strong. Patient is neurovascularly intact distally with strong DP and PT pulses, no dependent edema noted. Patient has full range of motion, external genitalia normal scrotums normal normal scrotal contents. Differential diagnosis includes peripheral artery disease versus peripheral vascular disease versus musculoskeletal strain etc. Initial workup will be conducted with hematologic labs CT angio aorta with runoff to the toes. Initial interventions include crystalloid bolus Tylenol Robaxin Toradol. Initial workup reviewed by me and patient's hematologic labs are nonactionable and my informal interpretation of his CTA aorta with runoff shows shows significant occlusive disease bilaterally but more prominently on the right in the arterial system with reconstitution distally.. Upon repeat evaluation had complete resolution of his symptoms after initial intervention. Given this patient is appropriate for discharge with referral to Dr. Oconnell for further evaluation and a prescription for meloxicam sent to his pharmacy. Patient given strict return precautions and close follow-up with his PCP. I was consulted by the TANVIR, and we discussed the complexity of the problems being addressed. I approved the treatment and management plan for this patient's care in the emergency department, thus performing a substantive portion of the medical decision making. Roque Briceño MD Critical Care <ISADORA Balbuena - Last Filed: 10/31/24 13:23> Critical Care Time Critical Care Time: No
--- OUTSIDE RECORDS SUMMARY | 2024-10-31 10:41 | XMS_ITS | Encounter Summary ---
Author Organization [employer] Address [address] [place] [address] Care Team Providers Care Retail Operations Manager Name Role Phone Unavailable Primary Care Provider Unavailabl e Encounter Details Date Type Department Care Team (Late st Contact Info) Description 04/08/2019 Transcribed Document [facility] [place] [address] [place] [address] ProviderMelanie MD [address] [place] [address] Social History Tobacco Use Types Packs/Day Years Used Date Smoking Tobacco: Never Assessed Sex and Gender Information Value Date Recorded Sex Assigned at Not on file Legal Sex Male 4:07 PM CDT Gender Identity Not on file Sexual Orientation Not on file documented as of this encounter Miscellaneous Notes * Cerner Conversion Note - Historical ProviderMD - 04/08/2019 10:42 AM CASE MANAGER SPECIALIST [place] Suicide Severity Rating Scale (C-SSRS) Entered On: 04/08/2019 11:15 EST Performed On: 04/08/2019 10:45 EST by Renata Dia RN [place] Suicide Severity Rating Scale (C-SSRS) CSSRS Past [...]
--- OUTSIDE RECORDS SUMMARY | 2024-10-31 10:41 | XMS_ITS | Encounter Summary ---
Author Organization [employer] Address [address] [place] [address] Care Team Providers Care Window Dresser Name Role Phone Unavailable Primary Care Provider Unavailabl e Encounter Details Date Type Department Care Team (Late st Contact Info) Description 05/28/2019 Transcribed Document [facility] [place] [address] [place] [address] ProviderMelanie MD [address] [place] [address] Social History Tobacco Use Types Packs/Day Years Used Date Smoking Tobacco: Never Assessed Sex and Gender Information Value Date Recorded Sex Assigned at Not on file Legal Sex Male 4:07 PM CDT Gender Identity Not on file Sexual Orientation Not on file documented as of this encounter Miscellaneous Notes * Cerner Conversion Note - Historical ProviderMD - 05/28/2019 8:37 PM CRA OFFICER Pain Assessment Entered On: 05/29/2019 23:38 EST [...]
--- OUTSIDE RECORDS SUMMARY | 2024-10-31 10:42 | XMS_ITS | Encounter Summary ---
Author Organization [employer] Address [address] [place] [address] Care Team Providers Care Utility Locator Name Role Phone Unavailable Primary Care Provider Unavailabl e Encounter Details Date Type Department Care Team (Late st Contact Info) Description 06/01/2019 Transcribed Document [facility] [place] Family Medicine [address] [place] [address] ProviderMelanie MD [facility] [place], [place] [id number] Social History Tobacco Use Types Packs/Day Years Used Date Smoking Tobacco: Never Assessed Sex and Gender Information Value Date Recorded Sex Assigned at Not on file Legal Sex Male 4:07 PM CDT Gender Identity Not on file Sexual Orientation Not on file documented as of this encounter Miscellaneous Notes * Cerner Conversion Note - Melanie Grider MD - 06/01/2019 4:58 PM WEIGHTER Patient Education Materials Follows: Negative Pressure Wound [...] to treat your wound at home. ??? [facility] stay. ??? Less pain. What are [...] 04/16/2009 Document Revised: 03/31/2017 Document Reviewed: 02/07/2016 [employer] Interactive Patient Education ? 2019 [employer] Negative Pressure Wound Therapy Dressing Care [...] open and ready to use. ? Hand aircraft detail draftsperson. ? Wound cleanser or saltwater solution (saline) [...] and water are not available, use hand aircraft detail draftsperson. ??? Put on gloves. ??? Turn off [...] and water are not available, use hand aircraft detail draftsperson. Cleaning your wound ??? Follow your health care provider's instructions on how to clean your wound. This may include using a saline or recommended wound cleanser. ??? Do not use glug-ygk-razsusg medicated or antiseptic creams, sprays, liquids, or [...] and water are not available, use hand aircraft detail draftsperson. Applying the dressing ??? Apply a skin [...] and water are not available, use hand aircraft detail draftsperson. ??? Attach the suction and turn the [...] 07/26/2012 Document Revised: 05/29/2016 Document Reviewed: 02/07/2016 [employer] Interactive Patient Education ? 2019 [employer] documented in this encounter Plan of Treatment Not on file documented as of this encounter Visit Diagnoses Not on filedocumented in this encounter
--- OUTSIDE RECORDS SUMMARY | 2024-10-31 10:42 | XMS_ITS | Encounter Summary ---
Author Organization [employer] Address [address] [place] [address] Care Team Providers Care Carpet Renovator Name Role Phone Unavailable Primary Care Provider Unavailabl e Encounter Details Date Type Department Care Team (Late st Contact Info) Description 05/31/2019 Transcribed Document [facility] [place] [facility] [place] [address] ProviderMelanie MD [address] [place] [id number] Social History Tobacco Use Types Packs/Day Years Used Date Smoking Tobacco: Never Assessed Sex and Gender Information Value Date Recorded Sex Assigned at Not on file Legal Sex Male 4:07 PM CDT Gender Identity Not on file Sexual Orientation Not on file documented as of this encounter Miscellaneous Notes * Cerner Conversion Note - Melanie ProviderMD - 05/31/2019 3:07 PM SAFETY AND SECURITY MANAGER WOCN Inpatient Documentation Entered On: 05/31/2019 15:13 [...] NPWT to scrotum s/p exploration and debridement. BOOT MAKER used by jag. Soaked Gauze with saline [...] Ulcer WOCN Wound Pressure Ulcer Documentation : Ljqazgjuj-Fkusve-Pvpf Abnormality: Scrotum Posterior on 05/31/2019 15:05 by Jenise Ortiz Rn-Enterostomal I/W/A Present on Admission to Hospital: Yes I/W/A Type: Incision, open I/W/A Dressing Status: Intact I/W/A Dressing Activity: Assessed, Dressing changed I/W/A Wound Date of Dressing Change: :0.631957:0:0 I/W/A Wound Bed Description: Full-thickness, Undermining I/W/A [...] Initial set-up application NPWT Inpatient Start Date: [id number]:0 NPWT Device Used: Renasys Type of Foam/Gauze [...] 05/31/2019 15:07 EST Electronically signed by Angel, [facility] Conversion Instrument Maker And Repairer Cerner at 09/05/2022 2:03 PM CDT documented in this encounter Plan of Treatment Not on file documented as of this encounter Visit Diagnoses Not on filedocumented in this encounter
--- OUTSIDE RECORDS SUMMARY | 2024-10-31 10:42 | XMS_ITS | Encounter Summary ---
Author Organization [employer] Address [address] [place] [address] Care Team Providers Care Veneer Jointer Returner Name Role Phone Unavailable Primary Care Provider Unavailabl e Encounter Details Date Type Department Care Team (Late st Contact Info) Description 05/29/2019 Transcribed Document [facility] [place] [address] [place] [address] ProviderMelanie MD [facility] [address] Social History Tobacco Use Types Packs/Day Years Used Date Smoking Tobacco: Never Assessed Sex and Gender Information Value Date Recorded Sex Assigned at Not on file Legal Sex Male 4:07 PM CDT Gender Identity Not on file Sexual Orientation Not on file documented as of this encounter Miscellaneous Notes * Cerner Conversion Note - Historical ProviderMD - 05/29/2019 8:00 AM FORGESMITH Consult Phone Call Documentation Entered On: 05/29/2019 8:06 EST Performed On: 05/29/2019 8:00 EST by SARAH BARILLAS Phone Call for Consults Consult Reason : scrotal abscess Physician Requesting Consult : GUILLERMO SCOTT MD-INT Physician Requested for Consult : KTAARZYNA RIZO MD-INF Physician Covering for Consult : KATARZYNA RIZO MD-INF Date and Time Call Returned : 05/29/2019 8:06 EST Physician Returning Call : KATARZYNA RIZO MD-INF SARAH BARILLAS - 05/29/2019 8:05 EST documented in this encounter Plan of Treatment Not on file documented as of this encounter Visit Diagnoses Not on filedocumented in this encounter
--- OUTSIDE RECORDS SUMMARY | 2024-10-31 10:42 | XMS_ITS | Encounter Summary ---
Author Organization [employer] Address [address] [place] [address] Care Team Providers Care Hand Chain Maker Name Role Phone Unavailable Primary Care Provider Unavailabl e Encounter Details Date Type Department Care Team (Late st Contact Info) Description 05/30/2019 Transcribed Document [facility] [address] [place] [address] Provider marc Navarro MD Social History Tobacco Use Types Packs/Day Years Used Date Smoking Tobacco: Never Assessed Sex and Gender Information Value Date Recorded Sex Assigned at Not on file Legal Sex Male 4:07 PM CDT Gender Identity Not on file Sexual Orientation Not on file documented as of this encounter Miscellaneous Notes * Cerner Conversion Note - [facility] Melanie ProviderMD - 05/30/2019 6:00 AM EST Chart Check - Review Order Profile Entered On: 05/30/2019 5:07 EST Performed On: 05/30/2019 5:00 EST by Jenna Vargas Lpn Chart Check Powerplans Initiated/Discontinued as Appropriate : Yes All Active Orders Reviewed : Yes Jenna Vargas Lpn - 05/30/2019 5:07 EST Electronically signed by Angel [facility] Conversion Group Exercise Manager Cerner at 10/14/2022 2:01 PM CDT documented in this encounter Plan of Treatment Not on file documented as of this encounter Visit Diagnoses Not on filedocumented in this encounter
--- OUTSIDE RECORDS SUMMARY | 2024-10-31 10:42 | XMS_ITS | Encounter Summary ---
Author Organization [employer] Address [address] [place] [address] Care Team Providers Care Safemaker Name Role Phone Unavailable Primary Care Provider Unavailabl e Encounter Details Date Type Department Care Team (Late st Contact Info) Description 06/01/2019 Transcribed Document [facility] [place] Family Medicine [address] [place] [address] ProviderMelanie MD [address] [place] [address] Social History Tobacco Use Types Packs/Day Years Used Date Smoking Tobacco: Never Assessed Sex and Gender Information Value Date Recorded Sex Assigned at Not on file Legal Sex Male 4:07 PM CDT Gender Identity Not on file Sexual Orientation Not on file documented as of this encounter Miscellaneous Notes * Cerner Conversion Note - Historical ProviderMD - 06/01/2019 4:50 PM DIRECTOR CHILD DEVELOPMENT CENTER Stroke/Warfarin Instructions Entered On: 06/01/2019 16:50 EST [...]
--- OUTSIDE RECORDS SUMMARY | 2024-10-31 10:42 | XMS_ITS | Encounter Summary ---
Author Organization [employer] Address [address] [place] [address] Care Team Providers Care Cmm Inspector Name Role Phone Unavailable Primary Care Provider Unavailabl e Encounter Details Date Type Department Care Team (Late st Contact Info) Description 06/01/2019 Transcribed Document [facility] [place] Family Medicine [address] [place] [address] ProviderMelanie MD [facility] [place], [place] [address] Social History Tobacco Use Types Packs/Day Years Used Date Smoking Tobacco: Never Assessed Sex and Gender Information Value Date Recorded Sex Assigned at Not on file Legal Sex Male 4:07 PM CDT Gender Identity Not on file Sexual Orientation Not on file documented as of this encounter Miscellaneous Notes * Cerner Conversion Note - Melanie ProviderMD - 06/01/2019 4:10 PM ADVERTISING DISPATCH CLERKS SUPERVISOR Final Discharge Planning Entered On: 06/01/2019 16:12 EST Performed On: 06/01/2019 16:10 EST by LYNDSEY GAY RN-Regrinder Final Discharge Planning Discharge Arrangements : Patient Post-Acute Information Patient Name: TERRI VARGAS Gender: Male : 62 Age: 59 Years Kasiaspbenson Referral(s): Service: Organization: Business Address: Phone Number: [facility] [address], [address], [place], [address] Patient Offered Choice/Affiliations Explained : [...] Services (Related/SOC within 3 days)-06 LYNDSEY GAY RN-Regrinder - 06/01/2019 16:10 EST Final Narrative Note Final Narrative Note : Discharged to home, agreeable. Updates with vac order sent to [facility]. Wound vac to be delivered to room at approximately 1730. No other needs verbalized at this time. LYNDSEY GAY, ANAT-Regrinder - 06/01/2019 16:10 EST Electronically signed by Angel [facility] Conversion Art Sales Consultant Cerner at 09/05/2022 2:24 PM CDT documented in this encounter Plan of Treatment Not on file documented as of this encounter Visit Diagnoses Not on filedocumented in this encounter
--- OUTSIDE RECORDS SUMMARY | 2024-10-31 10:42 | XMS_ITS | Encounter Summary ---
Author Organization [employer] Address [address] [place] [address] Care Team Providers Care Cage Loader Name Role Phone Unavailable Primary Care Provider Unavailabl e Encounter Details Date Type Department Care Team (Late st Contact Info) Description 05/28/2019 Transcribed Document [facility] [place] Family Medicine [facility] [place] [address] ProviderMelanie MD [address] [place] [id number] Social History Tobacco Use Types Packs/Day Years Used Date Smoking Tobacco: Never Assessed Sex and Gender Information Value Date Recorded Sex Assigned at Not on file Legal Sex Male 4:07 PM CDT Gender Identity Not on file Sexual Orientation Not on file documented as of this encounter Miscellaneous Notes * Cerner Conversion Note - Melanie ProviderMD - 05/28/2019 6:12 PM BUNDLE COLLECTOR ED Triage Entered On: 05/28/2019 18:28 EST [...] : 3 - Urgent Tracking Group : [facility] ED KEN GAY RN - 05/28/2019 18:16 [...] PNED ; Probability: 0 ; Diagnosis Code: [id number] ED Height and Weight Height Source : Stated Height Entry Format : Nolan Height, Feet : 5 ft(Converted to: 152 cm, 60 Inch) Height, Inches : 4 Inch(Converted to: 0 ft 4 Inch, 10.16 cm) Clinical Height : 162.56 cm Weight Source, ED : Critical estimated dosing weight Weight Entry Format : Nolan Weight, Pounds : 225 lb Clinical Dosing Weight : 102.27 kg Body Surface Area (BSA) : 2.06 m2 Body Mass Index : 38.7 kg/m2 (HI) [place] Body Weight (IBW) : 58.3 kg KEN GAY RN - 05/28/2019 18:16 EST Electronically signed by Angel [facility] Conversion Veterinary Surgery Technologist Cerner at 09/05/2022 2:17 PM CDT documented in this encounter Plan of Treatment Not on file documented as of this encounter Visit Diagnoses Not on filedocumented in this encounter
--- OUTSIDE RECORDS SUMMARY | 2024-10-31 10:42 | XMS_ITS | Encounter Summary ---
Author Organization [employer] Address [address] [place] [address] Care Team Providers Care Research Nurse Name Role Phone Unavailable Primary Care Provider Unavailabl e Encounter Details Date Type Department Care Team (Late st Contact Info) Description 05/29/2019 Transcribed Document [facility] [place] Family Medicine [address] [place] [address] ProviderMelanie MD [address] [place] [address] Social History Tobacco Use Types Packs/Day Years Used Date Smoking Tobacco: Never Assessed Sex and Gender Information Value Date Recorded Sex Assigned at Not on file Legal Sex Male 4:07 PM CDT Gender Identity Not on file Sexual Orientation Not on file documented as of this encounter Miscellaneous Notes * Cerner Conversion Note - Melanie ProviderMD - 05/29/2019 1:38 PM BLUEPRINT ENGINEER DATE OF PROCEDURE: 05/29/2019 SURGEON: Claudy [...] inpatient stay for antibiotics and wound care. /[id number] DICTATED BY: Nicolasa Arguello MD for Claudy Pro MD MD LOUIS Martinez/AQ / LOUIS / ANGELAL /[id number] Electronically signed by [facility] Conversion Lab Technologist Cerner at 09/05/2022 2:31 PM CDT documented in this encounter Plan of Treatment Not on file documented as of this encounter Visit Diagnoses Not on filedocumented in this encounter
--- OUTSIDE RECORDS SUMMARY | 2024-10-31 10:42 | XMS_ITS | Encounter Summary ---
Author Organization [employer] Address [address] [place] [address] Care Team Providers Care Gis Geographer Name Role Phone Unavailable Primary Care Provider Unavailabl e Encounter Details Date Type Department Care Team (Late st Contact Info) Description 05/29/2019 Transcribed Document [facility] [place] [address] [place] [address] ProviderMelanie MD [facility] [place] [address] Social History Tobacco Use Types Packs/Day Years Used Date Smoking Tobacco: Never Assessed Sex and Gender Information Value Date Recorded Sex Assigned at Not on file Legal Sex Male 4:07 PM CDT Gender Identity Not on file Sexual Orientation Not on file documented as of this encounter Miscellaneous Notes * Cerner Conversion Note - Historical ProviderMD - 05/29/2019 5:00 PM VALIDATION SOFTWARE FACILITATOR Chart Check - Review Order Profile Entered On: 05/29/2019 16:57 EST Performed On: 05/29/2019 17:00 EST by JANN JOSEPH RN Chart Check Powerplans Initiated/Discontinued as Appropriate : Yes All Active Orders Reviewed : Yes JANN JOSEPH RN - 05/29/2019 16:57 EST Electronically signed by Angel [facility] Conversion Employment Interviewer Dalton at 09/05/2022 2:06 PM CDT documented in this encounter Plan of Treatment Not on file documented as of this encounter Visit Diagnoses Not on filedocumented in this encounter
--- OUTSIDE RECORDS SUMMARY | 2024-10-31 10:42 | XMS_ITS | Encounter Summary ---
Author Organization [employer] Address [address] [place] [address] Care Team Providers Care Radiological Technician Name Role Phone Unavailable Primary Care Provider Unavailabl e Encounter Details Date Type Department Care Team (Late st Contact Info) Description 05/30/2019 Transcribed Document [facility] [place] Family Medicine [address] [place] [address] ProviderMelanie MD [facility] [place], [place] [address] Social History Tobacco Use Types Packs/Day Years Used Date Smoking Tobacco: Never Assessed Sex and Gender Information Value Date Recorded Sex Assigned at Not on file Legal Sex Male 4:07 PM CDT Gender Identity Not on file Sexual Orientation Not on file documented as of this encounter Miscellaneous Notes * Cerner Conversion Note - Historical ProviderMD - 05/30/2019 1:59 AM UNION LABORER Pain Assessment Entered On: 05/30/2019 5:08 EST [...]
--- OUTSIDE RECORDS SUMMARY | 2024-10-31 10:42 | XMS_ITS | Encounter Summary ---
Author Organization [employer] Address [address] [place] [address] Care Team Providers Care Field Handyman Name Role Phone Unavailable Primary Care Provider Unavailabl e Encounter Details Date Type Department Care Team (Late st Contact Info) Description 05/28/2019 Transcribed Document [facility] [place] Family Medicine [address] [place] [address] ProviderMelanie MD [facility] [place], [place] [address] Social History Tobacco Use Types Packs/Day Years Used Date Smoking Tobacco: Never Assessed Sex and Gender Information Value Date Recorded Sex Assigned at Not on file Legal Sex Male 4:07 PM CDT Gender Identity Not on file Sexual Orientation Not on file documented as of this encounter Miscellaneous Notes * Cerner Conversion Note - Historical ProviderMD - 05/28/2019 6:12 PM TRAVEL REGISTERED NURSE PACU ED Assessment Entered On: 05/28/2019 18:55 EST [...] Communication Barrier : None Primary Language : Swedish Any Spiritual/Cultural Needs or Requests : No [...] 18:51 EST Respiratory Respiratory Assessment WDL : [facility] SHAUNNA WEST RN - 05/28/2019 18:51 EST Genitourinary Assessment, ED Genitourinary Assessment WDL : [facility] with exceptions (Comment: pt c/o non-healing wound [...] Neurologic ASMT, ED Neurologic Assessment WDL : [facility] [place] Coma Scale Link : Open [facility] SHAUNNA WEST RN - 05/28/2019 18:51 EST [place] Coma Felipa Best Motor Response : Obey commands [place] Best Verbal Response : Oriented [place] Eye Opening Response : Spontaneous Felipa Coma Score : 15 SHAUNNA WEST RN - 05/28/2019 18:51 EST documented in this encounter Plan of Treatment Not on file documented as of this encounter Visit Diagnoses Not on filedocumented in this encounter
--- OUTSIDE RECORDS SUMMARY | 2024-10-31 10:42 | XMS_ITS | Encounter Summary ---
Author Organization [email or web address] Address [address] [place] [address] Care Team Providers Care Hvac Refrigeration Technician Name Role Phone Unavailable Primary Care Provider Unavailabl e Encounter Details Date Type Department Care Team (Late st Contact Info) Description 05/31/2019 Transcribed Document [facility] [place] [address] [place] [address] ProviderMelanie MD [facility] [place], [place] [address] Social History Tobacco Use Types Packs/Day Years Used Date Smoking Tobacco: Never Assessed Sex and Gender Information Value Date Recorded Sex Assigned at Not on file Legal Sex Male 4:07 PM CDT Gender Identity Not on file Sexual Orientation Not on file documented as of this encounter Miscellaneous Notes * Cerner Conversion Note - Historical ProviderMD - 05/31/2019 2:56 PM COMMERCIAL HELICOPTER PILOT On Going Discharge Planning Entered On: 05/31/2019 14:57 EST Performed On: 05/31/2019 14:56 EST by LYNDSEY GAY RN-Commercial Construction SuperintendentHealth And Safety Technician Progress Note Discharge Arrangements : Patient Post-Acute Information Patient Name: TERRI VARGAS Gender: Male : 62 Age: 59 Years No Post-Acute Placement(s) Listed No Post-Acute Service(s) Listed No Curaspan Referral(s) Listed Barriers to Discharge Identified : Clinical Condition of Patient Barriers to Discharge Unresolved : Clinical Condition of Patient Did you Attend Multidisciplinary Rounds? : Yes LYNDSEY GAY RN-Commercial Construction Superintendent - 05/31/2019 14:56 EST Narrative Progress Note Narrative Progress Note : Met with Pt on MDR rounds. Pain continues to be an issue, Dilaudid OPERATIONS AND MAINTENANCE SUPERVISOR in use. Plans are to place a wound vac sometime today. CM will follow. LYNDSEY GAY, ANAT-Commercial Construction Superintendent - 05/31/2019 14:56 EST Electronically signed by Angel [facility] Conversion Unit Nurse Cerner at 09/05/2022 2:06 PM CDT documented in this encounter Plan of Treatment Not on file documented as of this encounter Visit Diagnoses Not on filedocumented in this encounter
--- OUTSIDE RECORDS SUMMARY | 2024-10-31 10:42 | XMS_ITS | Encounter Summary ---
Author Organization [employer] Address [address] [place] [address] Care Team Providers Care Order Fulfillment Specialist Name Role Phone Unavailable Primary Care Provider Unavailabl e Encounter Details Date Type Department Care Team (Late st Contact Info) Description 05/30/2019 Transcribed Document [facility] [place] [address] [place] [address] ProviderMelanie MD [address] [place] [id number] Social History Tobacco Use Types Packs/Day Years Used Date Smoking Tobacco: Never Assessed Sex and Gender Information Value Date Recorded Sex Assigned at Not on file Legal Sex Male 4:07 PM CDT Gender Identity Not on file Sexual Orientation Not on file documented as of this encounter Miscellaneous Notes * Cerner Conversion Note - Historical ProviderMD - 05/30/2019 12:17 PM GRAVITY MANAGER WO Inpatient Documentation Entered On: 05/30/2019 12:18 [...] - 05/30/2019 12:17 EST Electronically signed by [facility] Sjh Conversion Bottom Crane Operator Cerner at 09/05/2022 2:24 PM CDT documented in this encounter Plan of Treatment Not on file documented as of this encounter Visit Diagnoses Not on filedocumented in this encounter
--- OUTSIDE RECORDS SUMMARY | 2024-10-31 10:42 | XMS_ITS | Encounter Summary ---
Author Organization [employer] Address [address] [place] [address] Care Team Providers Care Licensing Court Magistrate Name Role Phone Unavailable Primary Care Provider Unavailabl e Encounter Details Date Type Department Care Team (Late st Contact Info) Description 05/31/2019 Transcribed Document [facility] [place] [address] [place] [address] ProviderMelanie MD [address] [place], [place] [address] Social History Tobacco Use Types Packs/Day Years Used Date Smoking Tobacco: Never Assessed Sex and Gender Information Value Date Recorded Sex Assigned at Not on file Legal Sex Male 4:07 PM CDT Gender Identity Not on file Sexual Orientation Not on file documented as of this encounter Miscellaneous Notes * Cerner Conversion Note - Historical ProviderMD - 05/31/2019 2:00 AM PRINT WASHER Steward/Stewardess Economy Class Details Entered On: 05/31/2019 8:04 EST Performed [...] 05/31/2019 8:04 EST Electronically signed by Angel [facility] Conversion Digital Asset Coordinator Cerner at 09/05/2022 2:06 PM CDT documented in this encounter Plan of Treatment Not on file documented as of this encounter Visit Diagnoses Not on filedocumented in this encounter
--- OUTSIDE RECORDS SUMMARY | 2024-10-31 10:42 | XMS_ITS | Encounter Summary ---
Author Organization [employer] Address [address] [place] [address] Care Team Providers Care Testing Specialist Name Role Phone Unavailable Primary Care Provider Unavailabl e Encounter Details Date Type Department Care Team (Late st Contact Info) Description 05/28/2019 Transcribed Document [facility] [place] [facility] [place] [address] ProviderMelanie MD [address] [place] [id number] Social History Tobacco Use Types Packs/Day Years Used Date Smoking Tobacco: Never Assessed Sex and Gender Information Value Date Recorded Sex Assigned at Not on file Legal Sex Male 4:07 PM CDT Gender Identity Not on file Sexual Orientation Not on file documented as of this encounter Miscellaneous Notes * Cerner Conversion Note - Historical ProviderMD - 05/28/2019 8:25 PM COATING MIXER Patient: TERRI MOREL Age: 59 years Sex: [...] Patient reports he has been taking his [place] Percocet and morphine at home with no [...] in chart. Surgical history: Right total orchiectomy ([id number]). Repair of right inguinal hernia ([id number]). Hydrocele (2073382619). CABG (Coronary artery bypass grafting) planned ([id number])., Reviewed as documented in chart. Family history: [...] EST Height Source Stated Height Entry Format [place] Height/Length, [place] (ft) 5 ft Height/Length [place] 4 Inch CLINICALHEIGHT 162.56 cm [place] Body Weight 58.3 kg Weight Source, ED Critical estimated dosing weight Weight Entry Format [place] Weight Danish lb 225 lb CLINICALWEIGHT 102.27 kg Body [...] ED Adult Triage: ED Clinical Reconciliation: ED central sterile tech: Lactic Acid Level with Reflex if Indicated: [...] % 35.3 % Lymph # 2.93 x10(3)/uL [place] % 6.3 % [place] # 0.52 K/uL Eos % 2.3 % Eos # 0.19 x10(3)/uL Baso % 0.6 % Baso # 0.05 x10(3)/uL Slide Review No IG# 0.04 x10(3)/uL IG% 0.50 % Urine Type. U CleanCatch Urine Color Yellow Urine Appearance Clear Urine Specific [place] >1.030 HI Urine pH Dipstick 6.0 Urine [...]
--- OUTSIDE RECORDS SUMMARY | 2024-10-31 10:42 | XMS_ITS | Encounter Summary ---
Author Organization [facility] [facility] [employer] Address [address] [place] [address] Care Team Providers Care Cutter Tender Name Role Phone Unavailable Primary Care Provider Unavailabl e Encounter Details Date Type Department Care Team (Late st Contact Info) Description 05/29/[address] [facility] [place] Family Medicine [address] [place] [address] ProviderMelanie MD [address] [place] [address] Social History Tobacco Use Types Packs/Day Years Used Date Smoking Tobacco: Never Assessed Sex and Gender Information Value Date Recorded Sex Assigned at Not on file Legal Sex Male 4:07 PM CDT Gender Identity Not on file Sexual Orientation Not on file documented as of this encounter Miscellaneous Notes * Cerner Conversion Note - Historical ProviderMD - 05/29/2019 12:00 PM CONTRACT ANALYST UM Authorization Entered On: 05/29/2019 12:00 EST Performed On: 05/29/2019 12:00 EST by ZULY PIERRE Rn-Utilization Review Primary Insurance Authorization Authorization and Policy Numbers : Insurance 1 Health Plan: MEDICARE Policy Number: [id number] Authorization Number: Insurance Primary Name : MEDICARE Policy Number: [id number] Historical Authorization Comments-Primary : No Authorization Comments Found ZULY PIERRE Rn-Utilization Review - 05/29/2019 12:00 EST documented in this encounter Plan of Treatment Not on file documented as of this encounter Visit Diagnoses Not on filedocumented in this encounter
--- OUTSIDE RECORDS SUMMARY | 2024-10-31 10:42 | XMS_ITS | Encounter Summary ---
Author Organization [employer] Address [address] [place] [address] Care Team Providers Care Livestock Agent Name Role Phone Unavailable Primary Care Provider Unavailabl e Encounter Details Date Type Department Care Team (Late st Contact Info) Description 05/29/2019 Transcribed Document [facility] [place] Family Medicine [address] [place] [address] ProviderMelanie MD [facility] [place] [address] Social History Tobacco Use Types Packs/Day Years Used Date Smoking Tobacco: Never Assessed Sex and Gender Information Value Date Recorded Sex Assigned at Not on file Legal Sex Male 4:07 PM CDT Gender Identity Not on file Sexual Orientation Not on file documented as of this encounter Miscellaneous Notes * Cerner Conversion Note - Historical ProviderMD - 05/29/2019 3:07 PM NEWSPAPER DISTRIBUTOR SUPERVISOR Education-Diabetes Topics Entered On: 05/29/2019 16:57 EST [...]
--- OUTSIDE RECORDS SUMMARY | 2024-10-31 10:42 | XMS_ITS | Encounter Summary ---
Author Organization [employer] Address [address] [place] [address] Care Team Providers Care Tire Man Name Role Phone Unavailable Primary Care Provider Unavailabl e Encounter Details Date Type Department Care Team (Late st Contact Info) Description 05/30/[address] [facility] [place] Family Medicine [address] [place] [address] ProviderMelanie MD [address] [place], [place] [address] Social History Tobacco Use Types Packs/Day Years Used Date Smoking Tobacco: Never Assessed Sex and Gender Information Value Date Recorded Sex Assigned at Not on file Legal Sex Male 4:07 PM CDT Gender Identity Not on file Sexual Orientation Not on file documented as of this encounter Miscellaneous Notes * Cerner Conversion Note - Historical ProviderMD - 05/30/2019 2:00 AM FLOOR CASHIER Prop Attendant Details Entered On: 05/30/2019 1:06 EST Performed [...] 05/30/2019 1:06 EST Electronically signed by Angel [facility] Conversion Sales Process Manager [employer]ner at 09/05/2022 2:22 PM CDT documented in this encounter Plan of Treatment Not on file documented as of this encounter Visit Diagnoses Not on filedocumented in this encounter
--- OUTSIDE RECORDS SUMMARY | 2024-10-31 10:42 | XMS_ITS | Encounter Summary ---
Author Organization [employer] Address [address] [place] [address] Care Team Providers Care Chief Executive Or Managing Director Name Role Phone Unavailable Primary Care Provider Unavailabl e Encounter Details Date Type Department Care Team (Late st Contact Info) Description 05/31/2019 Transcribed Document [facility] [place] Family Medicine [address] [place] [address] ProviderMelanie MD [facility] [place], [place] [address] Social History Tobacco Use Types Packs/Day Years Used Date Smoking Tobacco: Never Assessed Sex and Gender Information Value Date Recorded Sex Assigned at Not on file Legal Sex Male 4:07 PM CDT Gender Identity Not on file Sexual Orientation Not on file documented as of this encounter Miscellaneous Notes * Cerner Conversion Note - Historical ProviderMD - 05/31/2019 11:19 PM RADIOLOGIST CHIEF OF BREAST IMAGING Patient: TERRI VARGAS Age: 59 Years Sex: [...] still not adequate - will increase dilaudid SALES AND SERVICE ADVISOR and allow oral oxcodone as needed. 2. [...] Oral, At Bedtime Dilaudid 6 mg/30 ml SALES AND SERVICE ADVISOR 6 mg, 6 mg= 30 mL, IntraVENous [...] 05/31/2019 07:07 EST Electronically signed by Angel [facility] Conversion Service Desk Specialist Cerner at 09/05/2022 2:15 PM CDT documented in this encounter Plan of Treatment Not on file documented as of this encounter Visit Diagnoses Not on filedocumented in this encounter
--- OUTSIDE RECORDS SUMMARY | 2024-10-31 10:42 | XMS_ITS | Encounter Summary ---
Author Organization [employer] [facility] Address [address] [place] [address] Care Team Providers Care Bpm Developer Name Role Phone Unavailable Primary Care Provider Unavailabl e Encounter Details Date Type Department Care Team (Late st Contact Info) Description 05/29/2019 Transcribed Document [facility] [place] Family Medicine [address] [place] [address] ProviderMelanie MD [facility] [place] [address] Social History Tobacco Use Types Packs/Day Years Used Date Smoking Tobacco: Never Assessed Sex and Gender Information Value Date Recorded Sex Assigned at Not on file Legal Sex Male 4:07 PM CDT Gender Identity Not on file Sexual Orientation Not on file documented as of this encounter Miscellaneous Notes * Cerner Conversion Note - Melanie ProviderMD - 05/29/2019 4:43 AM ALARM SERVICE TECHNICIAN Education-Diabetes Topics Entered On: 05/29/2019 6:31 EST [...]
--- OUTSIDE RECORDS SUMMARY | 2024-10-31 10:42 | XMS_ITS | Clinical Summary ---
Author Organization [facility] Address [address] [place] [address] Phone Care Team Providers Care House Worker Name Role Phone Renzo BEARD, Chuck Schaffer [ ] Conditions or Problems Problem Name Problem Code Onset Date Status Entry Date Provider Comment Standard Description Annotate Orchitis 982556248 (SNOMED CT) 06/03 Active 06/03 Renata Mello Orchitis Coronary artery disease, S/P CABG 92992215 (SNOMED CT) 06/03 Active 06/03 Renata Mello Coronary arteriosclerosis Skin tissue necrosis 97905790 (SNOMED CT) 06/03 Active 06/03 Renata Mello Skin necrosis DM Type II E11.9 (ICD-10-CM) 06/03 Active 06/03 Renata Mello Type 2 diabetes mellitus without complications Abscess/Cell ulitis, scrotal 81200791 (SNOMED CT) 06/03 Active 06/03 Renata Mello Abscess of scrotum Nicotine dependence, cigarettes 117794654 (SNOMED CT) 06/03 Active 06/03 Renata Mello Tobacco user Medications Medication Instructions Start Date Stop Date Generic Name [facility] Provider ZOFRAN 4 MG ORAL TABLET 1 tablet every 8 hours as needed ONDANSETRON HCL 79401813291 Huan Shah MS CONTIN 15 MG CR-TABS 1 tablet twice daily MORPHINE SULFATE 58437090234 Huan Shah JANUMET 50-1000 MG TABS 1 tablet twice daily SITAGLIPTIN-METFO RMIN HCL 63046055988 Huan Shah DESIPRAMINE HCL 25 MG TABS 1 tablet nightly DESIPRAMINE HCL 74014354988 [facility] COREG 25 MG TABS 1 tablet twice daily CARVEDILOL 56468929817 [facility] OMEPRAZOLE 40 MG CPDR 1 capsule daily OMEPRAZOLE 86630606287 [facility] ALTOPREV 40 MG [id number] 1 tablet daily LOVASTATIN 67187538256 [facility] LISINOPRIL-HYDROCH LOROTHIAZIDE 10-12.5 MG TABS 1 tablet twice daily LISINOPRIL-HYDROC HLOROTHIAZIDE 13299534894 [facility] FARXIGA 10 MG TABS 1 tablet daily DAPAGLIFLOZIN PROPANEDIOL 52775522381 [facility] CYCLOBENZAPRINE HCL 10 MG TABS 1 tablet 3 times daily as needed for spasms CYCLOBENZAPRINE HCL 36076888607 [facility] ADULT ASPIRIN REGIMEN 81 MG ORAL TABLET DELAYED RELEASE 1 tablet daily ASPIRIN 34470604670 [facility] PERCOCET 10-325 MG TABS 1 tablet every 4 hours as needed OXYCODONE-ACETAMI NOPHEN 08554905639 [facility] ADALAT CC 90 MG ORAL TABLET EXTENDED RELEASE 24 HOUR 1 tablet daily NIFEDIPINE 60616711666 [facility] CYMBALTA 60 MG CPEP 1 capsule daily DULOXETINE HCL 84434051745 [facility] ACIDOPHILUS 100 MG CAPS 1 capsule twice daily LACTOBACILLUS 65109745205 [facility] AVIDOXY 100 MG TABS 1 tablet twice daily DOXYCYCLINE MONOHYDRATE 11801808370 [facility] AMOXICILLIN-POT CLAVULANATE 875-125 MG TABS 1 tablet twice daily AMOXICILLIN-POT CLAVULANATE 93439984953 [facility] Medications Administered No information available. Allergies, Adverse [...]
--- OUTSIDE RECORDS SUMMARY | 2024-10-31 10:42 | XMS_ITS | Encounter Summary ---
Author Organization [employer] Address [address] [place] [address] Care Team Providers Care Business Performance Analyst Name Role Phone Unavailable Primary Care Provider Unavailabl e Encounter Details Date Type Department Care Team (Late st Contact Info) Description 05/29/2019 Transcribed Document [facility] [place] [address] [place] [address] ProviderMelanie MD [place] [address] Social History Tobacco Use Types Packs/Day Years Used Date Smoking Tobacco: Never Assessed Sex and Gender Information Value Date Recorded Sex Assigned at Not on file Legal Sex Male 4:07 PM CDT Gender Identity Not on file Sexual Orientation Not on file documented as of this encounter Miscellaneous Notes * Cerner Conversion Note - Historical ProviderMD - 05/29/2019 12:07 AM IMPROVEMENT MANAGER Provider Notification Entered On: 05/29/2019 2:08 EST Performed On: 05/29/2019 0:07 EST by Jenna Vargas Lpn Provider Notification Provider Notified of Concerns/Results : Other: ANNA with home CPAP Provider Notified Name : FRANCOIS WISE DO Provider Notified Time : 05/29/2019 0:00 EST Jenna Vargas Lpn - 05/29/2019 2:08 EST Electronically signed by Angel [facility] Conversion Client Services Director Cerner at 09/05/2022 2:16 PM CDT documented in this encounter Plan of Treatment Not on file documented as of this encounter Visit Diagnoses Not on filedocumented in this encounter
--- OUTSIDE RECORDS SUMMARY | 2024-10-31 10:42 | XMS_ITS | Encounter Summary ---
Author Organization [employer] Address [address] [place] [address] Care Team Providers Care Horologist Name Role Phone Unavailable Primary Care Provider Unavailabl e Encounter Details Date Type Department Care Team (Late st Contact Info) Description 05/28/2019 Transcribed Document [facility] [place] [address] [place] [address] ProviderMelanie MD [facility] [place], [place] [address] Social History Tobacco Use Types Packs/Day Years Used Date Smoking Tobacco: Never Assessed Sex and Gender Information Value Date Recorded Sex Assigned at Not on file Legal Sex Male 4:07 PM CDT Gender Identity Not on file Sexual Orientation Not on file documented as of this encounter Miscellaneous Notes * Cerner Conversion Note - Historical ProviderMD - 05/28/2019 9:10 PM DIRECTOR COMMUNITY HEALTH NURSING Admission History, Adult Entered On: 05/29/2019 0:07 [...] From : Patient, Spouse Primary Language : Kitt[place] Preferred Communication Mode : Verbal Communication Barrier [...] Scale Risk Level : 25-45 Medium Risk [place] Fall Interventions : Adequate lighting, Assistive devices [...] Source : Stated Height Entry Format : [place] Height, Feet : 5 ft(Converted to: 152 cm, 60 Inch) Height, Inches : 4 Inch(Converted to: 0 ft 4 Inch, 10.16 cm) Clinical Height : 162.56 cm Weight Source : Bed scale Weight Entry Format : [place] Clinical Dosing Weight : 102.27 kg Weight, Pounds : 225 lb Body Surface Area (BSA) : 2.06 m2 Body Mass Index : 38.7 kg/m2 (HI) [place] Body Weight : 58 kg Jenna Vargas [...] risk Jenna Vargas Lpn 05/29/2019 0:02 EST [place] Suicide Severity Rating Scale (C-SSRS) CSSRS Past [...] No Currently in Unsafe Situation : No eJnna Vargas Crab Fisherman 05/29/2019 0:02 EST Sleep Apnea Risk Assmt BiPAP/CPAP Ordered for Home Use : Yes Hx of Obstructive Sleep Apnea Diagnosis : Yes BiPAP/CPAP Used at Home : Yes Age over 50 Years Old : Yes Gender Male : Yes Jenna Vargas Crab Fisherman 05/29/2019 0:02 EST Spiritual/Cultural Needs Significant Loss/Crisis in Past 3 Years : No Any Spiritual/Cultural Needs or Requests : No Jenna Vargas Crab Fisherman 05/29/2019 0:02 EST Valuables and Belongings Valuables and Belongings : Clothing, Personal devices, Personal items Clothing : Common streetwear Clothing Disposition : Bedside, With family Personal Device Disposition : Bedside, With family Personal Devices : Glasses Personal Items : Cell phone, Other: CPAP Personal Items Disposition : Bedside Jenna Vargas [facility] - 05/29/2019 0:02 EST documented in this encounter Plan of Treatment Not on file documented as of this encounter Visit Diagnoses Not on filedocumented in this encounter
--- OUTSIDE RECORDS SUMMARY | 2024-10-31 10:42 | XMS_ITS | Encounter Summary ---
Author Organization [employer] Address [address] [place] [address] Care Team Providers Care Geological Specialist Name Role Phone Unavailable Primary Care Provider Unavailabl e Encounter Details Date Type Department Care Team (Late st Contact Info) Description 06/01/2019 Transcribed Document [facility] [place] Medicine [address] [place] [address] ProviderMelanie MD [facility] [place] [address] Social History Tobacco Use Types Packs/Day Years Used Date Smoking Tobacco: Never Assessed Sex and Gender Information Value Date Recorded Sex Assigned at Not on file Legal Sex Male 4:07 PM CDT Gender Identity Not on file Sexual Orientation Not on file documented as of this encounter Miscellaneous Notes * Cerner Conversion Note - Melanie ProviderMD - 06/01/2019 5:17 PM RN SURGERY [facility] [place] [address] TERRI MOREL :1960 Visit Time:05/28/2019 [...] Care Team STOP the following medications: STOP Neon (hydrocodone - acetaminophen) STOP Percocet 5/325 mg tablets ---- New prescription for Percocet 10 / 325 mg tablets provided. [facility] Health Services: [facility] [phone] Medical Equipment for Home Use: [employer] for wound vac [phone] Discharge Follow Up Instructions: PCP 1 week, ID (Dr. Weiss) 1 week, Urology 2 weeks. Home wound VAC. Activity: Discharge Activity: Activity as tolerated Diet: Discharge Diet: Resume usual diet as tolerated Follow-Up Appointments Follow Up with SUKHJINDER SHRESTHA MD-INT When 06/13/2019 03:45 PM EST Comments Appointment has been made Where: [address] [place] [address]- x8 Follow Up with KATARZYNA RIZO MD-INF When 06/03/2019 09:30 AM EST Where: [address] [facility] [address] [place] [address]- Follow Up with JC LUQUE When Within 1 to 2 weeks Comments Call for follow up appointment Where: [address] [place] [address] [place] [address]- Business (1) Medications What How [...] to treat your wound at home. ??? [place] [facility] stay. ??? Less pain. What are [...] 04/16/2009 Document Revised: 03/31/2017 Document Reviewed: 02/07/2016 [employer] Interactive Patient Education ?? 2019 [employer] Negative Pressure Wound Therapy Dressing Care [...] open and ready to use. ? Hand embroidery designer. ? Wound cleanser or saltwater solution [...] and water are not available, use hand embroidery designer. ??? Put on gloves. ??? Turn [...] and water are not available, use hand embroidery designer. Cleaning your wound ??? Follow your health care provider's instructions on how to clean your wound. This may include using a saline or recommended wound cleanser. ??? Do not use krwo-dja-nrpeiek medicated or antiseptic creams, sprays, liquids, or [...] and water are not available, use hand embroidery designer. Applying the dressing ??? Apply a [...] and water are not available, use hand embroidery designer. ??? Attach the suction and turn [...] 07/26/2012 Document Revised: 05/29/2016 Document Reviewed: 02/07/2016 [employer] Interactive Patient Education ?? 2019 [employer]. acetaminophen and oxycodone (a SEET a MIN [...] may report side effects to FDA at 9-784-CNY-5236. What other drugs will affect acetaminophen and [...] affect acetaminophen and oxycodone, including prescription and onzu-wee-zlpybzx medicines, vitamins, and herbal products. Not all [...] to ensure that the information provided by [employer] ('[employer]') is accurate, up-to-date, and complete, but no guarantee is made to that effect. Drug information contained herein may be time sensitive. [employer] information has been compiled for use by healthcare practitioners and consumers in the [place] and therefore [employer] does not warrant that uses outside of the [place] are appropriate, unless specifically indicated otherwise. [employer]'s drug information does not endorse drugs, diagnose patients or recommend therapy. [employer] drug information is an informational resource designed [...] effective or appropriate for any given patient. [employer] does not assume any responsibility for any aspect of healthcare administered with the aid of information [employer] provides. The information contained herein is not intended to cover all possible uses, directions, precautions, warnings, drug interactions, allergic reactions, or adverse effects. If you have questions about the drugs you are taking, check with your doctor, nurse or pharmacist. Copyright 9646-9207 [employer]. Version: 18.02. Revision Date: 04/14/2018. lactobacillus acidophilus [...] may report side effects to FDA at 0-269-BAW-2384. What other drugs will affect lactobacillus acidophilus? Do not take lactobacillus acidophilus without medical advice if you are using any medications that can weaken your immune system, such as: ?? medicine to prevent organ transplant rejection; or ?? steroid medicine (prednisone, dexamethasone, methylprednisolone, and others). This list is not complete. Other drugs may interact with lactobacillus acidophilus, including prescription and ytta-axz-czgnerk medicines, vitamins, and herbal products. Not all [...] to ensure that the information provided by [employer]') is accurate, up-to-date, and complete, but no guarantee is made to that effect. Drug information contained herein may be time sensitive. [employer] information has been compiled for use by healthcare practitioners and consumers in the [place] and therefore [employer] does not warrant that uses outside of the [place] are appropriate, unless specifically indicated otherwise. [employer]'s drug information does not endorse drugs, diagnose patients or recommend therapy. [employer] drug information is an informational resource designed [...] effective or appropriate for any given patient. [employer] does not assume any responsibility for any aspect of healthcare administered with the aid of information [employer] provides. The information contained herein is not intended to cover all possible uses, directions, precautions, warnings, drug interactions, allergic reactions, or adverse effects. If you have questions about the drugs you are taking, check with your doctor, nurse or pharmacist. Copyright 1838-6781 [employer]. Version: 3.07. Revision Date: 10/24/2016. amoxicillin and [...] may report side effects to FDA at 3-324-ILT-8390. What other drugs will affect amoxicillin and clavulanate potassium? Tell your doctor about all your current medicines and any you start or stop using, especially: ?? allopurinol; ?? probenecid; or ?? a blood thinner--warfarin, Coumadin, Jantoven. This list is not complete. Other drugs may interact with amoxicillin and clavulanate potassium, including prescription and hjik-lpa-sedvvvn medicines, vitamins, and herbal products. Not all [...] to ensure that the information provided by [employer]') is accurate, up-to-date, and complete, but no guarantee is made to that effect. Drug information contained herein may be time sensitive. [employer] information has been compiled for use by healthcare practitioners and consumers in the [place] and therefore [employer] does not warrant that uses outside of the [place] are appropriate, unless specifically indicated otherwise. [employer] drug information does not endorse drugs, diagnose patients or recommend therapy. [employer] drug information is an informational resource designed [...] effective or appropriate for any given patient. [employer] does not assume any responsibility for any aspect of healthcare administered with the aid of information [employer] provides. The information contained herein is not intended to cover all possible uses, directions, precautions, warnings, drug interactions, allergic reactions, or adverse effects. If you have questions about the drugs you are taking, check with your doctor, nurse or pharmacist. Copyright 5673-6685 [employer]. Version: .. Revision Date: 05/19/2017. doxycycline (oral/injection) [...] or life-threatening conditions such as anthrax or Palmer spotted fever. The benefit of treating a [...] may report side effects to FDA at 7-439-VTD-9959. What other drugs will affect doxycycline? Sometimes it is not safe to use certain medications at the same time. Some drugs can affect your blood levels of other drugs you take, which may increase side effects or make the medications less effective. Other drugs may affect doxycycline, including prescription and cyiu-uei-eqmolsz medicines, vitamins, and herbal products. Tell your [...] to ensure that the information provided by [employer]') is accurate, up-to-date, and complete, but no guarantee is made to that effect. Drug information contained herein may be time sensitive. [employer] information has been compiled for use by healthcare practitioners and consumers in the [place] and therefore [employer] does not warrant that uses outside of the [place] are appropriate, unless specifically indicated otherwise. [employer] drug information does not endorse drugs, diagnose patients or recommend therapy. [employer] drug information is an informational resource designed [...] effective or appropriate for any given patient. [employer] does not assume any responsibility for any aspect of healthcare administered with the aid of information [employer] provides. The information contained herein is not intended to cover all possible uses, directions, precautions, warnings, drug interactions, allergic reactions, or adverse effects. If you have questions about the drugs you are taking, check with your doctor, nurse or pharmacist. Copyright 7240-9770 [employer]. Version: 21.02. Revision Date: 10/06/2018. Emergency Awareness [...] Assistance with quitting is available by contacting 4-244-NMDX-NOW. This is a free resource providing counseling, [...] range between ( 0.0 and 7.0 ) Gove #: 0.86 K/uL -- Normal range between ( 0.16 and 1.00 ) Eos #: 0.40 x10(3)/uL -- Normal range between ( 0.00 and 0.80 ) Gove %: 8.2 % -- Normal range between [...] ) Urine Bilirubin Dipstick: Negative Urine Specific [place]: >1.030 -- Normal range between ( 1.005 [...]
--- OUTSIDE RECORDS SUMMARY | 2024-10-31 10:42 | XMS_ITS | Encounter Summary ---
Author Organization [facility] Address [address] [place] [address] Care Team Providers Care Fabric And Accessories Estimator Name Role Phone Anita Dumas Primary Care Provider [phone] Encounter Details Date Type Department Care Team ([facility] st Contact Info) Description 03/28/2024 Orders Only External Location [address] [place] [address] Provider, External Social History Tobacco Use Types [...] documented as of this encounter Care Teams Fabric And Accessories Estimator Relationship Specialty Start Date End Date Anita Dumas PA [address] [place] [address] PCP - General 08/06/22 documented as of this encounter
--- OUTSIDE RECORDS SUMMARY | 2024-10-31 10:42 | XMS_ITS | Encounter Summary ---
Author Organization [facility] Address [address] [place] [address] Care Team Providers Care Operations Logistics Analyst Name Role Phone Anita Dumas Primary Care Provider [phone] Encounter Details Date Type Department Care Team ([facility] st Contact Info) Description 05/30/2024 Orders Only External Location [address] [place] [address] Provider, External Social History Tobacco Use Types [...] documented as of this encounter Care Teams Operations Logistics Analyst Relationship Specialty Start Date End Date Anita Dumas PA [address] [place] [address] PCP - General 08/06/22 documented as of this encounter
--- OUTSIDE RECORDS SUMMARY | 2024-10-31 10:42 | XMS_ITS | Encounter Summary ---
Author Organization [employer] Address [address] [place] [address] Care Team Providers Care Grinder Chipper Name Role Phone Unavailable Primary Care Provider Unavailabl e Encounter Details Date Type Department Care Team (Late st Contact Info) Description 05/31/2019 Transcribed Document [facility] [place] [address] [place] [address] ProviderMelanie MD [facility] [place] [address] Social History Tobacco Use Types Packs/Day Years Used Date Smoking Tobacco: Never Assessed Sex and Gender Information Value Date Recorded Sex Assigned at Not on file Legal Sex Male 4:07 PM CDT Gender Identity Not on file Sexual Orientation Not on file documented as of this encounter Miscellaneous Notes * Cerner Conversion Note - Historical ProviderMD - 05/31/2019 5:00 PM WAREHOUSE PERSON Chart Check - Review Order Profile Entered [...]
--- OUTSIDE RECORDS SUMMARY | 2024-10-31 10:42 | XMS_ITS | Encounter Summary ---
Author Organization [employer] Address [address] [place] [address] Care Team Providers Care Change Analyst Name Role Phone Unavailable Primary Care Provider Unavailabl e Encounter Details Date Type Department Care Team (Late st Contact Info) Description 06/01/2019 Transcribed Document [facility] [place] [address] [place] [address] ProviderMelanie MD [facility] [address] Social History Tobacco Use Types Packs/Day Years Used Date Smoking Tobacco: Never Assessed Sex and Gender Information Value Date Recorded Sex Assigned at Not on file Legal Sex Male 4:07 PM CDT Gender Identity Not on file Sexual Orientation Not on file documented as of this encounter Miscellaneous Notes * Cerner Conversion Note - Historical ProviderMD - 06/01/2019 4:51 PM RAILWAY ENGINEER Nursing Discharge Summary Entered On: 06/01/2019 16:51 EST Performed On: 06/01/2019 16:51 EST by SERVANDO BARILLAS bottle assembler Documentation Discharge Date/Time : 06/01/2019 18:00 EST [...] 06/01/2019 16:51 EST Electronically signed by [facility] Conversion Waste Machine Tender Cerner at 09/05/2022 2:04 PM CDT documented in this encounter Plan of Treatment Not on file documented as of this encounter Visit Diagnoses Not on filedocumented in this encounter
--- OUTSIDE RECORDS SUMMARY | 2024-10-31 10:42 | XMS_ITS | Encounter Summary ---
Author Organization [employer] Address [address] [place] [address] Care Team Providers Care Flag Maker Name Role Phone Unavailable Primary Care Provider Unavailabl e Encounter Details Date Type Department Care Team (Late st Contact Info) Description 05/28/2019 Transcribed Document [facility] [place] Family Medicine [address] [place] [address] ProviderMelanie MD [facility] [place] [address] Social History Tobacco Use Types Packs/Day Years Used Date Smoking Tobacco: Never Assessed Sex and Gender Information Value Date Recorded Sex Assigned at Not on file Legal Sex Male 4:07 PM CDT Gender Identity Not on file Sexual Orientation Not on file documented as of this encounter Miscellaneous Notes * Cerner Conversion Note - Historical ProviderMD - 05/28/2019 8:36 PM ANCIENT ART CURATOR Pain Assessment Entered On: 05/29/2019 2:09 EST [...]
--- OUTSIDE RECORDS SUMMARY | 2024-10-31 10:42 | XMS_ITS | Encounter Summary ---
Author Organization [facility] Address [address] [place] [address] Care Team Providers Care Paramedic Name Role Phone Anita Dumas Primary Care Provider [phone] Encounter Details Date Type Department Care Team ([facility] st Contact Info) Description 03/28/2024 Orders Only External Location [address] [place] [address] Provider, External Social History Tobacco Use Types [...] documented as of this encounter Care Teams Paramedic Relationship Specialty Start Date End Date Anita Dumas PA [address] [place] [address] PCP - General 08/06/22 documented as of this encounter
--- OUTSIDE RECORDS SUMMARY | 2024-10-31 10:42 | XMS_ITS | Encounter Summary ---
Author Organization [employer] Address [address] [place] [address] Care Team Providers Care Workforce Management Consultant Name Role Phone Unavailable Primary Care Provider Unavailabl e Encounter Details Date Type Department Care Team (Late st Contact Info) Description 05/29/2019 Transcribed Document [facility] [place] [address] [place] [address] ProviderMelanie MD [facility] [place] [address] Social History Tobacco Use Types Packs/Day Years Used Date Smoking Tobacco: Never Assessed Sex and Gender Information Value Date Recorded Sex Assigned at Not on file Legal Sex Male 4:07 PM CDT Gender Identity Not on file Sexual Orientation Not on file documented as of this encounter Miscellaneous Notes * Cerner Conversion Note - Historical ProviderMD - 05/29/2019 8:00 AM SUBSTATION TECHNICIAN Consult Phone Call Documentation Entered On: 05/29/2019 [...]
--- OUTSIDE RECORDS SUMMARY | 2024-10-31 10:42 | XMS_ITS | Encounter Summary ---
Author Organization [employer] Address [address] [place] [address] Care Team Providers Care Security Test Engineer Name Role Phone Unavailable Primary Care Provider Unavailabl e Encounter Details Date Type Department Care Team (Late st Contact Info) Description 05/29/2019 Transcribed Document [facility] [place] [address] [place] [address] ProviderMelanie MD [facility] [place] [address] Social History Tobacco Use Types Packs/Day Years Used Date Smoking Tobacco: Never Assessed Sex and Gender Information Value Date Recorded Sex Assigned at Not on file Legal Sex Male 4:07 PM CDT Gender Identity Not on file Sexual Orientation Not on file documented as of this encounter Miscellaneous Notes * Cerner Conversion Note - Historical ProviderMD - 05/29/2019 5:00 AM WELCOME WAGON HOST/HOSTESS Chart Check - Review Order Profile Entered [...]
--- OUTSIDE RECORDS SUMMARY | 2024-10-31 10:42 | XMS_ITS | Encounter Summary ---
Author Organization [employer] Address [address] [place] [address] Care Team Providers Care Classics Professor Name Role Phone Unavailable Primary Care Provider Unavailabl e Encounter Details Date Type Department Care Team (Late st Contact Info) Description 05/29/2019 Transcribed Document [facility] [place] Family Medicine [address] [place] [address] ProviderMelanie MD [address] [place] [address] Social History Tobacco Use Types Packs/Day Years Used Date Smoking Tobacco: Never Assessed Sex and Gender Information Value Date Recorded Sex Assigned at Not on file Legal Sex Male 4:07 PM CDT Gender Identity Not on file Sexual Orientation Not on file documented as of this encounter Miscellaneous Notes * Cerner Conversion Note - Historical ProviderMD - 05/29/2019 2:02 PM RECORDS COORDINATOR Patient: TERRI MOREL Age: 59 years Sex: [...] the wound and he has been taking [place] Percocet and morphine at home with no [...] 250 m - 1,500 mg, IV Piggyback, [id number], infuse over 60 Minute(s), Routine Immunology influenza virus vaccine, inactivated - 0.5 mL, IntraMuscular, Inj, [id number] Cardiovascular carvedilol - 25 mg, Oral, Tab, [...] process/pending Rad: Radiology Results (Last 48 hours) [id number] -- 05/28/2019 20:28 CR Chest 1 Vw [...] care Justino Vazquez APRN for Dr. Chuck OROEPZA DC Electronically signed by [facility] Conversion Time Checker Cerner at 09/05/2022 2:16 PM CDT documented in this encounter Plan of Treatment Not on file documented as of this encounter Visit Diagnoses Not on filedocumented in this encounter
--- OUTSIDE RECORDS SUMMARY | 2024-10-31 10:42 | XMS_ITS | Encounter Summary ---
Author Organization [employer] Address [address] [place] [address] Care Team Providers Care Dedicated Local Truck Driver Name Role Phone Unavailable Primary Care Provider Unavailabl e Encounter Details Date Type Department Care Team (Late st Contact Info) Description 05/29/2019 Transcribed Document [facility] [place] Family Medicine [address] [place] [address] ProviderMelanie MD [facility] [place], [place] [address] Social History Tobacco Use Types Packs/Day Years Used Date Smoking Tobacco: Never Assessed Sex and Gender Information Value Date Recorded Sex Assigned at Not on file Legal Sex Male 4:07 PM CDT Gender Identity Not on file Sexual Orientation Not on file documented as of this encounter Miscellaneous Notes * Cerner Conversion Note - Historical ProviderMD - 05/29/2019 11:15 AM ERGONOMICS ENGINEER [facility] Main OR IntraOp Summary Primary Physician: JC LUQUE MD-SHANTEL Finalized Date/Time: 05/31/19 10:17:06 Pt. Name: LES MORELUSHA Rutherford /Sex: 1960 Male Med Rec #: [id number] Physician: FRANCOIS WISE DO Financial #: [id number] Pt. Type: I Room/Bed: [facility]/ Admit/Disch: 05/28/19 20:28:00 - Institution: [facility] IntraOp Case Attendance Entry 1 Entry [...] Irvin RN WATTS, DESHAWNIA R. Role Performed Grounds/Maintenance Specialist, First Scrub, First Time In 05/29/19 11:00:00 05/29/19 11:00:00 Time Out 05/29/19 12:38:00 05/29/19 12:38:00 Procedure Scrotal Exploration Scrotal Exploration Other Attendee Superficial Wound Closed By: Last Modified By: Mikel Irvin RN Pantano, Scott, RN 05/29/19 12:40:12 05/29/19 12:40:12 [facility] IntraOp Case Attendance Audit 05/29/19 12:40:12 Gear Hobber: BRENTANONorris Modifier: PANTANOS 1 <+> Time Out 1 <*> Procedure Scrotal Exploration 2 <+> Time Out 2 <*> Procedure Scrotal Exploration 3 <+> Time Out 3 <*> Procedure Scrotal Exploration 4 <+> Time Out 4 <*> Procedure Scrotal Exploration 5 <+> Time Out 5 <*> Procedure Scrotal Exploration 05/29/19 11:31:44 Gear Hobber: BRENTANOS Modifier: PANTANOS <+> 1 Procedure 2 <*> Procedure Scrotal Exploration 3 <*> Procedure Scrotal Exploration 4 <*> Procedure Scrotal Exploration 5 <*> Procedure Scrotal Exploration 05/29/19 11:30:54 Gear Hobber: PANTANOS Modifier: PANTANOS 2 <+> Time In 2 <*> Procedure Scrotal Exploration 3 <+> Time In 3 <*> Procedure Scrotal Exploration 4 <+> Time In 4 <*> Procedure Scrotal Exploration 5 <+> Time In 5 <*> Procedure Scrotal Exploration [facility] IntraOp Case Times Entry 1 Patient In Room Time 05/29/19 11:00:00 Out Room Time 05/29/19 12:38:00 Anesthesia Start Time 05/29/19 11:00:00 Stop Time 05/29/19 12:38:00 Surgery / Procedure Times Start Time 05/29/19 11:15:00 Stop Time 05/29/19 12:38:00 Last Modified By: Mikel Irvin RN 05/29/19 12:39:19 [facility] IntraOp Case Times Audit 05/29/19 12:39:19 Gear Hobber: GISSELLE Modifier: GISSELLE <+> 1 Out Room Time <+> 1 Stop Time <+> 1 Stop Time [facility] IntraOp Cautery Entry 1 ESU Identification Cautery Type Monopolar ESU ID Number [id number] ID Type Hospital Number Cautery Settings Cut Setting 30 Coag Setting 30 ESU Grounding Pad Ground Pad Type Adult Grounding Pad Site Right thigh Grounding Pad Mikel Irvin RN Applied By Grounding Pad Site Dry, Intact, Warm Skin Condition Before Cautery Grounding Pad Site Unchanged Skin Condition After Cautery Last Modified By: Mikel Irvin RN 05/29/19 11:27:43 [facility] IntraOp Communication Entry 1 Communication To Family/Significant other Communication By Mikel Irvin RN Date and Time 05/29/19 11:27:00 Last Modified By: Mikel Irvin RN 05/29/19 11:27:52 [facility] IntraOp Counts Verification Entry 1 Procedure Scrotal Exploration Count Info Count Type Sponge, Sharps, Miscellaneous Counts Verification Baseline/pre-procedure Sequence Count Results Correct, surgeon notified Counts Performed By Count Performed By CT JENKINS (Scrub) Count Performed By Mikel Irvin RN (RN) Last Modified By: Mikel Irvin RN 05/29/19 11:28:08 [facility] IntraOp Counts Final Entry 1 Procedure Scrotal Exploration Final Count Info Count Type Sponge, Sharps, Miscellaneous Counts Verification Skin Closure/end of Sequence procedure Count Results Correct, surgeon notified Counts Performed By Count Performed By CT JENKINS (Scrub) Count Performed By Mikel Irvin RN (RN) Last Modified By: Mikel Irvin RN 05/29/19 11:28:23 [facility] IntraOp Cultures and Spec Summary Entry 1 Cultrures and Specimens Specimen Ordered: Yes Test(s) Blood/Laboratory Requested/Final Disposition Last Modified By: Mikel Irvin RN 05/29/19 11:28:29 [facility] IntraOp Departure from OR Entry 1 Integumentary Assessment Integumentary WDL Assessment WDL Transfer/Handoff Transfer to PACU Phase I Handoff Method Bedside/Face to face, Online nursing summary Post-op Transport Stretcher/Gurney Via Patient Transport MELISSA JIMENEZ MD-ANS, Accompanied by OTHER, ATTENDEE Last Modified By: Mikel Irvin RN 05/29/19 11:28:47 [facility] IntraOp Dressing and Packing Entry 1 Type Packing Wound Dressing Item Kerlix/Leonides Applied By OTHER, ATTENDEE Last Modified By: Mikel Irvin RN 05/29/19 11:29:48 [facility] IntraOp Dressing and Packing Audit 05/29/19 12:38:38 Gear Hobber: GISSELLE Modifier: GISSELLE 1 <*> Wound Dressing Item 4x4's [facility] IntraOp Fire Risk Assessment Entry 1 [...] Modified By: Mikel Irvin RN 05/29/19 11:28:55 [facility] IntraOp General Case Drywall Worker 1 Case Information OR OR 03 [facility] Case Level 1 Room Verified Yes Wound Class II - Clean-Contaminated Specialty SN Urology Anesthesia Type General ASA Class 3 Diagnosis Preop Diagnosis ABSCESS SCROTUM Postop Same As Preop Yes Postop Diagnosis ABSCESS SCROTUM Last Modified By: Mikel Irvin RN 05/29/19 11:29:56 [facility] IntraOp General Case Data Audit 05/29/19 11:29:56 Gear Hobber: GISSELLE Modifier: GISSELLE <+> 1 ASA Class [facility] IntraOp Intraoperative Assessment Entry 1 Handoff [...] Modified By: Mikel Irvin RN 05/29/19 11:30:07 [facility] IntraOp Intraoperative Equipment Entry 1 Type Monitoring Equipment Intraop Monitoring Electrocardiogram Three lead placement (ECG) Electrode Placement Blood Pressure Non-Invasive BP Device Source Blood Pressure Arm, right upper Location Pulse Oximeter Hand, left Probe Site Antiembolic Devices Antiembolic Devices Sequential compression device, knee high Antiembolic Device Bilateral Location Scopes Photo/Video Documentation Last Modified By: Mikel Irvin RN 05/29/19 11:30:33 [facility] IntraOp Medication Admin Entry 1 Entry 2 Medication/Irrigant Marcaine 0.25% 30ml Bacitracin 50,00units vial - [id number] powder vial Combo Med List Time Administered Route of LOCAL IN IRRIGATION Administration Dose Dose 15 Unit of Measure ml ml Volume Administered By OTHER, ATTENDEE OTHER, ATTENDEE Procedure Irrigation Irrigant Volume In Irrigant Volume Out Last Modified By: Mikel Irvin RN Pantano, Scott, RN 05/29/19 11:33:55 05/29/19 11:33:55 [facility] IntraOp Patient Positioning Entry 1 Procedure [...] Modified By: Mikel Irvin RN 05/29/19 11:31:42 [facility] IntraOp Sign In Entry 1 Patient, [...] Modified By: Mikel Irvin RN 05/29/19 11:30:51 [facility] IntraOp Sign Out Entry 1 RN [...] Modified By: Mikel Irvin RN 05/29/19 12:24:30 [facility] IntraOp Sign Out Audit 05/29/19 12:40:05 Gear Hobber: GISSELLE Modifier: GISSELLE <+> 1 RN Sign Out Signature Date/Time [facility] IntraOp Skin Prep Entry 1 Procedure Scrotal Exploration Prescribed N/A Pre-Surgical Prep Completed Prep Area GENITALIA Intraop Prep Integumentary WDL Assessment WDL Prep Agents Betadine scrub, Betadine solution Prep by Mikel Irvin RN Hair Removal Methods No hair removal performed Last Modified By: Mikel Irvin RN 05/29/19 11:29:33 [facility] IntraOp Surgical Procedures Entry 1 Procedure Scrotal Exploration Primary Procedure Yes Primary Surgeon JC LUQUE MD-URO Start 05/29/19 11:15:00 Stop 05/29/19 12:38:00 Anesthesia Type General Specialty SN Urology Wound Class II - Clean-Contaminated Last Modified By: Mikel Irvin RN 05/29/19 11:31:44 [facility] IntraOp Surgical Procedures Audit 05/29/19 12:39:57 Gear Hobber: GISSELLE Modifier: GISSELLE <+> 1 Stop [facility] IntraOp Temp Regulation Devices Entry 1 Temp Regulation Temperature Warm blankets, Forced Regulation Device Air Warming device Temperature Upper body Regulation Site Temperature MELISSA JIMENEZ MD-ANS Regulation Device Applied by Temperature monitored per Regulation Comment anesthesia, fariha hugger available Last Modified By: Mikel Irvin RN 05/29/19 11:30:40 [facility] IntraOP Time Out Entry 1 Procedure [...] Modified By: Mikel Irvin RN 05/29/19 11:31:23 [facility] IntraOP Time Out Audit 05/29/19 11:31:23 Gear Hobber: ENIDNorris Modifier: GISSELLE 1 <+> Beta Asad [...]
--- OUTSIDE RECORDS SUMMARY | 2024-10-31 10:42 | XMS_ITS | Encounter Summary ---
Author Organization [employer] Address [address] [place] [address] Care Team Providers Care Brand Ambassador Name Role Phone Unavailable Primary Care Provider Unavailabl e Encounter Details Date Type Department Care Team (Late st Contact Info) Description 05/29/[address] [facility] [place] Family Medicine [address] [place] [address] ProviderMelanie MD [facility] [place] [address] Social History Tobacco Use Types Packs/Day Years Used Date Smoking Tobacco: Never Assessed Sex and Gender Information Value Date Recorded Sex Assigned at Not on file Legal Sex Male 4:07 PM CDT Gender Identity Not on file Sexual Orientation Not on file documented as of this encounter Miscellaneous Notes * Cerner Conversion Note - Historical ProviderMD - 05/29/2019 11:15 AM CROP GRAIN OR [facility]IVESTOCK [facility] Main OR PACU Summary Primary Physician: JC LUQUE MD-URO Finalized Date/Time: 05/29/19 13:38:14 Pt. Name: MORELTERRI /Sex: 1960 Male Med Rec #: [id number] Physician: FRANCOIS WISE DO Financial #: [id number] Pt. Type: I Room/Bed: [facility]/1 Admit/Disch: 05/28/19 20:28:00 - Institution: [facility] Main OR PACU I Case Times Entry 1 In PACU I 05/29/19 12:40:00 Ready for PACU 05/29/19 13:30:00 Discharge Discharge from PACU 05/29/19 13:30:00 I Last Modified By: Janel Zelaya RN 05/29/19 13:38:05 Finalized By: Janel Zelaya RN Document Signatures Signed By: Janel Zelaya RN 05/29/19 13:38 Electronically signed by Angel [facility] Conversion Pole Framer Machine Cerner at 09/05/2022 2:21 PM CDT documented in this encounter Plan of Treatment Not on file documented as of this encounter Visit Diagnoses Not on filedocumented in this encounter
--- OUTSIDE RECORDS SUMMARY | 2024-10-31 10:42 | XMS_ITS | Encounter Summary ---
Author Organization [employer] Address [address] [place] [address] Care Team Providers Care Filter Press Pumper Name Role Phone Unavailable Primary Care Provider Unavailabl e Encounter Details Date Type Department Care Team (Late st Contact Info) Description 05/31/2019 Transcribed Document [facility] [place] Family Medicine [address] [place] [address] ProviderMelanie MD [address] [place] [id number] Social History Tobacco Use Types Packs/Day Years Used Date Smoking Tobacco: Never Assessed Sex and Gender Information Value Date Recorded Sex Assigned at Not on file Legal Sex Male 4:07 PM CDT Gender Identity Not on file Sexual Orientation Not on file documented as of this encounter Miscellaneous Notes * Cerner Conversion Note - Melanie ProviderMD - 05/31/2019 2:04 AM WELDER MACHINE OPERATOR Event Note Entered On: 05/31/2019 2:07 EST Performed On: 05/31/2019 2:04 EST by Kristofer Lau RN Event Note Event Date/Time : 05/30/2019 20:30 EST Event Location : Assigned room Event Details : Other: Description of Event : Patient complains of delay in administering pain medicine When patient's PARALLEL COMPUTING SOFTWARE ENGINEER dilaudid was about to finish, a request [...] 05/31/2019 2:04 EST Electronically signed by Angel, [facility] Conversion Accountant Auditor Cerner at 09/05/2022 2:23 PM CDT documented in this encounter Plan of Treatment Not on file documented as of this encounter Visit Diagnoses Not on filedocumented in this encounter
--- OUTSIDE RECORDS SUMMARY | 2024-10-31 10:42 | XMS_ITS | Encounter Summary ---
Author Organization [employer] Address [address] [place] [address] Care Team Providers Care Reworker Name Role Phone Unavailable Primary Care Provider Unavailabl e Encounter Details Date Type Department Care Team (Late st Contact Info) Description 05/28/2019 Transcribed Document [facility] [place] Family Medicine [address] [place] [address] ProviderMelanie MD [facility] [place] [address] Social History Tobacco Use Types Packs/Day Years Used Date Smoking Tobacco: Never Assessed Sex and Gender Information Value Date Recorded Sex Assigned at Not on file Legal Sex Male 4:07 PM CDT Gender Identity Not on file Sexual Orientation Not on file documented as of this encounter Miscellaneous Notes * Cerner Conversion Note - Historical ProviderMD - 05/28/2019 11:54 PM PUBLIC HOUSING MANAGER ED Discharge Entered On: 05/28/2019 23:54 EST [...] 05/28/2019 23:54 EST Electronically signed by Angel [facility] Conversion Bakery Worker Conveyor Line Cerner at 09/05/2022 2:15 PM CDT documented in this encounter Plan of Treatment Not on file documented as of this encounter Visit Diagnoses Not on filedocumented in this encounter
--- OUTSIDE RECORDS SUMMARY | 2024-10-31 10:42 | XMS_ITS | Encounter Summary ---
Author Organization [email or web address] Address [address] [place] [address] Care Team Providers Care Waiter/Waitress Dining Car Name Role Phone Unavailable Primary Care Provider Unavailabl e Encounter Details Date Type Department Care Team (Late st Contact Info) Description 05/30/2019 Transcribed Document [facility] [place] [address] [place] [address] ProviderMelanie MD [facility] [place], [place] [address] Social History Tobacco Use Types Packs/Day Years Used Date Smoking Tobacco: Never Assessed Sex and Gender Information Value Date Recorded Sex Assigned at Not on file Legal Sex Male 4:07 PM CDT Gender Identity Not on file Sexual Orientation Not on file documented as of this encounter Miscellaneous Notes * Cerner Conversion Note - Historical ProviderMD - 05/30/2019 4:19 PM WINDOW SHADE ESTIMATOR Patient: TERRI VARGAS Age: 59 Years Sex: [...] still not adequate - will start dilaudid INTERNAL MEDICINE HOSPITALIST. 2. Coronary artery disease status post CABG [...] Oral, At Bedtime Dilaudid 6 mg/30 ml INTERNAL MEDICINE HOSPITALIST 6 mg, 6 mg= 30 mL, IntraVENous [...] Lymph # 2.13 x10(3)/uL 05/30/2019 06:33 EST Braxton % 8.2 % 05/30/2019 06:33 EST Braxton # 0.86 K/uL 05/30/2019 06:33 EST Eos % 3.8 % 05/30/2019 06:33 EST Eos # 0.40 x10(3)/uL 05/30/2019 06:33 EST Baso % 0.6 % 05/30/2019 06:33 EST Baso # 0.06 x10(3)/uL 05/30/2019 06:33 EST Slide Review No 05/30/2019 06:33 EST IG# 0.06 x10(3)/uL (High) 05/30/2019 06:33 EST IG% 0.60 % 05/30/2019 06:33 EST Electronically signed by Angel, [facility] Conversion Automatic Splicing Machine Operator Cerner at 09/05/2022 2:23 PM CDT documented in this encounter Plan of Treatment Not on file documented as of this encounter Visit Diagnoses Not on filedocumented in this encounter
--- OUTSIDE RECORDS SUMMARY | 2024-10-31 10:42 | XMS_ITS | Encounter Summary ---
Author Organization [employer] Address [address] [place] [address] Care Team Providers Care Telecommunicator Supervisor Name Role Phone Unavailable Primary Care Provider Andrew e Encounter Details Date Type Department Care Team (Late st Contact Info) Description 05/29/2019 Transcribed Document [facility] [place] Family Medicine [address] [place] [address] ProviderMelanie MD [address] [place], [place] [address] Social History Tobacco Use Types Packs/Day Years Used Date Smoking Tobacco: Never Assessed Sex and Gender Information Value Date Recorded Sex Assigned at Not on file Legal Sex Male 4:07 PM CDT Gender Identity Not on file Sexual Orientation Not on file documented as of this encounter Miscellaneous Notes * Cerner Conversion Note - Historical ProviderMD - 05/29/2019 11:21 AM GRIPPER INSTALLER Pain Assessment Entered On: 05/29/2019 16:57 EST [...]
--- OUTSIDE RECORDS SUMMARY | 2024-10-31 10:42 | XMS_ITS | Data Portability ---
Author Organization [facility] Address [address] [place] [address] Care Team Providers Care Territory Sales Representative Name Role Phone FADY WILLIS Primary Care Provider CLAUDY LUQUE Urologist KATARZYNA MULLER Infectious Disease [phone] [facility]RI[facility]EL SEXTON Pain Management Assessment Encounter Date [...] Plan: Arrange wound VAC change through the [facility] wound care nurse. Complete course of Augmentin [...] Augmentin 875 mg-125 mg tablet 2019 020 [facility] #[id number], [address] [place], [id number], 1 11:00:44 Percocet 5 mg-325 mg tablet 2019 020 [facility] #[id number], [address] [place], [id number], 1 11:02:37 Augmentin 875 mg-125 mg tablet 2019 020 [facility] #[id number], [address] [place], [id number], 1 11:00:44 Percocet 5 mg-325 mg tablet 2019 020 [facility] #[id number], [address], [id number], 1 11:02:37 Patient TargetsNo targets recorded. Patient InstructionsNo instructions recorded. Reason for Referral None Reported. Results Created Date Observation Date Name Description Value Unit Range Abnormal Flag Note LastModifiedBy Organization Detail LastModifiedTime 05/16/2005/16/2019 urina lysis , dipst ick, auto Unknown Analyte Yellow Not Available [facility] [address] [place], [address], 05/16/2019 07:54:25 05/16/2005/16/2019 urina lysis , dipst ick, auto Unknown Analyte Clear Not Available [facility] [address] [place], [address], 05/16/2019 07:54:25 05/16/20 19 05/16/2019 urina lysis , dipst ick, auto Unknown Analyte 1.015 Not Available [facility] [address] [place], [address], 05/16/2019 07:54:25 05/16/2005/16/2019 urina lysis , dipst ick, auto Unknown Analyte 1.003 - 1.035 Not Available [facility] [address] [place], [address], 05/16/2019 07:54:25 05/16/20 19 05/16/2019 urina lysis , dipst ick, auto Unknown Analyte 5.0 Not Available [facility] [address] [place], [address], 05/16/2019 07:54:25 05/16/2005/16/2019 urina lysis , dipst ick, auto Unknown Analyte 5.0 - 8.0 Not Available [facility] [address] [place] [address], [address], 05/16/2019 07:54:25 05/16/2005/16/2019 urina lysis , dipst ick, auto Unknown Analyte Negati ve Not Available [facility] [address] [place] [address], [address], 05/16/2019 07:54:25 05/16/2005/16/2019 urina lysis , dipst ick, auto Unknown Analyte Negati ve Not Available [facility] [address] [place] [address], [address], 05/16/2019 07:54:25 05/16/2005/16/2019 urina lysis , dipst ick, auto Unknown Analyte Negati ve Not Available [facility] [address] [place] [address], [address], 05/16/2019 07:54:25 05/16/2005/16/2019 urina lysis , dipst ick, auto Unknown Analyte Negati ve Not Available [facility] [place], [address], 05/16/2019 07:54:25 05/16/2005/16/2019 urina lysis , dipst ick, auto Unknown Analyte Negtiv e Not Available [facility] [address] [place] [address], [address], 05/16/2019 07:54:25 05/16/2005/16/2019 urina lysis , dipst ick, auto Unknown Analyte Negati ve - Trace Not Available [facility] [address] [place] [address], [address], 05/16/2019 07:54:25 05/16/2005/16/2019 urina lysis , dipst ick, auto Unknown Analyte Normal Not Available [facility] [address] [place] [address], [address], 05/16/2019 07:54:25 05/16/2005/16/2019 urina lysis , dipst ick, auto Unknown Analyte Normal Not Available [facility] [address] [place] [address], [address], 05/16/2019 07:54:25 05/16/2005/16/2019 urina lysis , dipst ick, auto Unknown Analyte Negati ve Not Available [facility] [address] [place] [address], [address], 05/16/2019 07:54:25 05/16/2005/16/2019 urina lysis , dipst ick, auto Unknown Analyte Negati ve Not Available [facility] [address] [place] [address], [address], 05/16/2019 07:54:25 05/16/2005/16/2019 urina lysis , dipst ick, auto Unknown Analyte Normal Not Available [facility] [address] [place], [address], 05/16/2019 07:54:25 05/16/20 19 05/16/2019 urina lysis , dipst ick, auto Unknown Analyte Normal - 1mg/dl Not Available [facility] [address] [place] [address], [address], 05/16/2019 07:54:25 05/16/2005/16/2019 urina lysis , dipst ick, auto Unknown Analyte Negati ve Not Available [facility] [address] [place] [address], [address], 05/16/2019 07:54:25 05/16/2005/16/2019 urina lysis , dipst ick, auto Unknown Analyte Negati ve Not Available [facility] [address] [place] [address], [address], 05/16/2019 07:54:25 05/16/2005/16/2019 urina lysis , dipst ick, auto Unknown Analyte Negati ve Not Available [facility] [address] [place] [address], [address], 05/16/2019 07:54:25 05/16/20 19 05/16/2019 urina lysis , dipst ick, auto Unknown Analyte Negati ve Not Available [facility] [address] [place] [address], [address], 05/16/2019 07:54:25 05/16/20 19 05/16/2019 urina lysis , dipst ick, auto Unknown Analyte Clean Catch Not Available [facility] [address] [place], [address], 05/16/2019 07:54:25 05/16/20 19 05/16/2019 urina lysis , dipst ick, auto Unknown Analyte Automa carlos Not Available [facility] [address] [place] [address], [address], 05/16/2019 07:54:25 05/24/1905/24/2019 urina lysis , dipst ick, auto Unknown Analyte Yellow Not Available [facility] [address] [place] [address], [address], 05/24/2019 10:02:15 05/24/19 20 05/24/2019 urina lysis , dipst ick, auto Unknown Analyte Clear Not Available [facility] [address] [place] [address], [address], 05/24/2019 10:02:15 05/24/1905/24/2019 urina lysis , dipst ick, auto Unknown Analyte 1.010 Not Available [facility] [address] [place] [address], [address], 05/24/2019 10:02:15 05/24/1905/24/2019 urina lysis , dipst ick, auto Unknown Analyte 1.003 - 1.035 Not Available [address], [address], 05/24/2019 10:02:15 05/24/19 20 05/24/2019 urina lysis , dipst ick, auto Unknown Analyte 5.0 Not Available [facility] [address], [address], 05/24/2019 10:02:15 05/24/1905/24/2019 urina lysis , dipst ick, auto Unknown Analyte 5.0 - 8.0 Not Available [facility] [address], [address], 05/24/2019 10:02:15 05/24/1905/24/2019 urina lysis , dipst ick, auto Unknown Analyte Negati ve Not Available [facility] [address], [address], 05/24/2019 10:02:15 05/24/19 20 05/24/2019 urina lysis , dipst ick, auto Unknown Analyte Negati ve Not Available [facility] [address] [place] [address], [address], 05/24/2019 10:02:15 05/24/19 20 05/24/2019 urina lysis , dipst ick, auto Unknown Analyte Negati ve Not Available [facility] [address] [place] [address], [address], 05/24/2019 10:02:15 05/24/19 20 05/24/2019 urina lysis , dipst ick, auto Unknown Analyte Negtiv e Not Available [facility] [address], [address], 05/24/2019 10:02:15 05/24/19 20 05/24/2019 urina lysis , dipst ick, auto Unknown Analyte Negati ve - Trace Not Available [facility] [address], [address], 05/24/2019 10:02:15 05/24/19 20 05/24/2019 urina lysis , dipst ick, auto Unknown Analyte Normal Not Available [facility] [address] [place] [address], [address], 05/24/2019 10:02:15 05/24/19 20 05/24/2019 urina lysis , dipst ick, auto Unknown Analyte Normal Not Available [facility] [address] [place] [address], [address], 05/24/2019 10:02:15 05/24/19 20 05/24/2019 urina lysis , dipst ick, auto Unknown Analyte Negati ve Not Available [facility] [address], [address], 05/24/2019 10:02:15 05/24/19 20 05/24/2019 urina lysis , dipst ick, auto Unknown Analyte Negati ve Not Available [facility] [address] [place] [address], [address], 05/24/2019 10:02:15 05/24/19 20 05/24/2019 urina lysis , dipst ick, auto Unknown Analyte Normal Not Available [facility] [address] [place] [address], [address], 05/24/2019 10:02:15 05/24/19 20 05/24/2019 urina lysis , dipst ick, auto Unknown Analyte Normal - 1mg/dl Not Available [facility] [address], [address], 05/24/2019 10:02:15 05/24/19 20 05/24/2019 urina lysis , dipst ick, auto Unknown Analyte Negati ve Not Available [facility] [address], [address], 05/24/2019 10:02:15 05/24/19 20 05/24/2019 urina lysis , dipst ick, auto Unknown Analyte Negati ve Not Available [facility] [address], [address], 05/24/2019 10:02:15 05/24/19 20 05/24/2019 urina lysis , dipst ick, auto Unknown Analyte Negati ve Not Available [facility] [address], [address], 05/24/2019 10:02:15 05/24/19 20 05/24/2019 urina lysis , dipst ick, auto Unknown Analyte Negati ve Not Available [facility] [address], [address], 05/24/2019 10:02:15 05/24/19 20 05/24/2019 urina lysis , dipst ick, auto Unknown Analyte Clean Catch Not Available [facility] [address] [place] [address], [address], 05/24/2019 10:02:15 05/24/19 20 05/24/2019 urina lysis , dipst ick, auto Unknown Analyte Visual Not Available [facility] [address] [place] [address], [address], 05/24/2019 10:02:15 06/06/19 20 06/06/2019 urina lysis , dipst ick, auto Unknown Analyte Yellow Not Available [facility] [address], [address], 06/06/2019 07:36:23 06/06/1906/06/2019 urina lysis , dipst ick, auto Unknown Analyte Clear Not Available [address], [address], 06/06/2019 07:36:23 06/06/19 20 06/06/2019 urina lysis , dipst ick, auto Unknown Analyte 1.005 Not Available [address], [address], 06/06/2019 07:36:23 06/06/19 20 06/06/2019 urina lysis , dipst ick, auto Unknown Analyte 6.0 Not Available [facility] [address], [address], 06/06/2019 07:36:23 06/06/19 20 06/06/2019 urina lysis , dipst ick, auto Unknown Analyte Negati ve Not Available [address], [address], 06/06/2019 07:36:23 06/06/19 20 06/06/2019 urina lysis , dipst ick, auto Unknown Analyte Negati ve Not Available [address], [address], 06/06/2019 07:36:23 06/06/19 20 06/06/2019 urina lysis , dipst ick, auto Unknown Analyte Negtiv e Not Available [facility] [address] [place], [address], 06/06/2019 07:36:23 06/06/1906/06/2019 urina lysis , dipst ick, auto Unknown Analyte 250 mg/dl Not Available [facility] [address] [place], [address], 06/06/2019 07:36:23 06/06/1906/06/2019 urina lysis , dipst ick, auto Unknown Analyte Negati ve Not Available [facility] [address] [place] [address], [address], 06/06/2019 07:36:23 06/06/19 20 06/06/2019 urina lysis , dipst ick, auto Unknown Analyte Normal Not Available [facility] [address] [place], [address], 06/06/2019 07:36:23 06/06/1906/06/2019 urina lysis , dipst ick, auto Unknown Analyte Negati ve Not Available [facility] [address] [place] [address], [address], 06/06/2019 07:36:23 06/06/1906/06/2019 urina lysis , dipst ick, auto Unknown Analyte Negati ve Not Available [facility] [address] [place] [address], [address], 06/06/2019 07:36:23 06/06/1906/06/2019 urina lysis , dipst ick, auto Unknown Analyte Clean Catch Not Available [facility] [address] [place] [address], [address], 06/06/2019 07:36:23 06/06/19 20 06/06/2019 urina lysis , dipst ick, auto Unknown Analyte Automa carlos Not Available [facility] [address], [address], 06/06/2019 07:36:23 06/29/19 20 06/29/2019 urina lysis , dipst ick, auto Unknown Analyte Yellow Not Available [facility] [address], [address], 06/29/2019 10:49:43 06/29/19 20 06/29/2019 urina lysis , dipst ick, auto Unknown Analyte Clear Not Available [facility] [address], [address], 06/29/2019 10:49:43 06/29/19 20 06/29/2019 urina lysis , dipst ick, auto Unknown Analyte 1.015 Not Available [facility] [address], [address], 06/29/2019 10:49:43 06/29/19 20 06/29/2019 urina lysis , dipst ick, auto Unknown Analyte 1.003 - 1.035 Not Available [address], [address], 06/29/2019 10:49:43 06/29/19 20 06/29/2019 urina lysis , dipst ick, auto Unknown Analyte 5.0 Not Available [facility] [address], [address], 06/29/2019 10:49:43 06/29/19 20 06/29/2019 urina lysis , dipst ick, auto Unknown Analyte 5.0 - 8.0 Not Available [address], [address], 06/29/2019 10:49:43 06/29/19 20 06/29/2019 urina lysis , dipst ick, auto Unknown Analyte Negati ve Not Available [facility] [address], [address], 06/29/2019 10:49:43 06/29/19 20 06/29/2019 urina lysis , dipst ick, auto Unknown Analyte Negati ve Not Available [facility] [address], [address], 06/29/2019 10:49:43 06/29/19 20 06/29/2019 urina lysis , dipst ick, auto Unknown Analyte Negati ve Not Available [facility] [address], [address], 06/29/2019 10:49:43 06/29/19 20 06/29/2019 urina lysis , dipst ick, auto Unknown Analyte Negati ve Not Available [facility] [address], [address], 06/29/2019 10:49:43 06/29/19 20 06/29/2019 urina lysis , dipst ick, auto Unknown Analyte Negtiv e Not Available [address], [address], 06/29/2019 10:49:43 06/29/19 20 06/29/2019 urina lysis , dipst ick, auto Unknown Analyte Negati ve - Trace Not Available [facility] [address], [address], 06/29/2019 10:49:43 06/29/19 20 06/29/2019 urina lysis , dipst ick, auto Unknown Analyte Normal Not Available [facility] [address], [address], 06/29/2019 10:49:43 06/29/19 20 06/29/2019 urina lysis , dipst ick, auto Unknown Analyte Normal Not Available [facility] [address] [place], [address], 06/29/2019 10:49:43 06/29/19 20 06/29/2019 urina lysis , dipst ick, auto Unknown Analyte Negati ve Not Available [facility] [address] [place] [address], [address], 06/29/2019 10:49:43 06/29/19 20 06/29/2019 urina lysis , dipst ick, auto Unknown Analyte Negati ve Not Available [facility] [address], [address], 06/29/2019 10:49:43 06/29/19 20 06/29/2019 urina lysis , dipst ick, auto Unknown Analyte Normal Not Available [facility] [address], [address], 06/29/2019 10:49:43 06/29/19 20 06/29/2019 urina lysis , dipst ick, auto Unknown Analyte Normal - 1mg/dl Not Available [facility] [address], [address], 06/29/2019 10:49:43 06/29/19 20 06/29/2019 urina lysis , dipst ick, auto Unknown Analyte Negati ve Not Available [facility] [address], [address], 06/29/2019 10:49:43 06/29/19 20 06/29/2019 urina lysis , dipst ick, auto Unknown Analyte Negati ve Not Available [facility] [address], [address], 06/29/2019 10:49:43 06/29/19 20 06/29/2019 urina lysis , dipst ick, auto Unknown Analyte Negati ve Not Available [facility] [address] [place], [address], 06/29/2019 10:49:43 06/29/19 20 06/29/2019 urina lysis , dipst ick, auto Unknown Analyte Negati ve Not Available [facility] [address] [place], [address], 06/29/2019 10:49:43 06/29/19 20 06/29/2019 urina lysis , dipst ick, auto Unknown Analyte Clean Catch Not Available [facility] [address] [place], [address], 06/29/2019 10:49:43 06/29/19 20 06/29/2019 urina lysis , dipst ick, auto Unknown Analyte Automa carlos Not Available [facility] [address] [place], [address], 06/29/2019 10:49:43 Result Notes None recorded. Problems Name Problem SNOMED Code Status Onset Date Resolution Date Notes Provider Name and Address Organization Details Recorded Time Mixed conductiv e AND sensorine ural hearing loss 46383103 Active 2015 From Automated Load;Prov ider: Dorian Hurd III tatus: Active Not Available [facility] 6 09:39:57 Otitis externa 8588758 Active 2015 Provider: Dorian Hurd III tatus: Active Not Available [facility] 6 09:39:57 Otitis externa of right ear 70687867222 01711 Active 2015 From Automated Load;Prov ider: Dorian Hurd III tatus: Active Not Available [facility] 6 09:39:57 Otorrhea 19630780 Active 2015 From Automated Load;Prov ider: Dorian Hurd III tatus: Active Not Available [facility] 6 09:39:57 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 Procedures Surgical History Date Name Laterality Status Provider Name and Address Organization Details Recorded Time 06/20/19 20 repair of scrotum completed CLAUDY LUQUE MD [address] [place] [address], [address], [facility] 06/20/2019 16:56:31 05/29/19 20 Scrotal surgery completed CLAUDY LUQUE MD [address] [place] [address], [address], [facility] 06/20/2019 16:57:39 Heart Surgery completed Fani Huffmna [facility] 02/08/2019 16:35:08 Hernia Repair completed CLAUDY LUQUE MD [address] [place] [address], [address], [facility] 04/04/2019 14:53:49 Orchiectomy completed CLAUDY LUQUE MD [address] [place] [address], [address], [facility] 04/04/2019 14:54:02 Hydrocele Repair completed CLAUDY ULQUE MD [address] [place] [address], [address], [facility] 04/04/2019 14:54:16 Mastoidectomy completed Janet Stoll [facility] 12/14/2020 11:10:11 Imaging Results None recorded. Procedure Notes None recorded. Medical Equipment None Reported. Allergies Allergen ID Allergen Name Allergen Category Reaction Reaction Severity Criticality Documentation Date Start Date Code Code System Note Provider Name and Address Organization Details Recorded Time 246056 acetamino phen / oxycodone medicatio n nausea Not available Not available 02/08/2019 50138 3 RxNorm He can take 5 mg dose CLAUDY LUQUE MD [address] [place] [address] [place], [address], [facility] 9 15:06:12 230698 Bactrim medicatio n dizziness respirato ry distress Not available Not available Not available 02/11/2019 74084 9 RxNorm CLAUDY LUQUE MD [facility] [place], [address], [facility] 9 07:45:25 Medications Name Sig Start [...] ne propionat e 50 mcg/actua tion nasal spray,[facility] 12/14 completed Not Available Not Available Not Available metformin ER 500 mg tablet,ex tended release 24 hr 12/14 completed Not Available Not Available Not Available ezetimibe 10 mg tablet TAKE 1 TABLET BY MOUTH ONCE DAILY 12/14 completed Not Available Not Available Not Available Ciprodex 0.3 %-0.1 % ear drops,[facility] 02/08 completed Not Available Not Available Not [...] YOU DIDN T RECEIVE INSTRUCT IONS CALL [phone] 12/14 completed Not Available Not Available Not [...] Updated DateTime 05/24/2019 177.8 cm 33.9 kg/m2 740852.8 g 86 /min [facility] 05/24/2019 10:02:36 Date Recorded Body height Body mass index (BMI) Body weight Provider Name and Address Organization Details Last Updated DateTime 06/06/2019 177.8 cm 33.9 kg/m2 861855.8 g Sarah Mora [facility] 06/06/2019 07:36:09 Date Recorded Body height Body mass index (BMI) Body weight Heart rate Provider Name and Address Organization Details Last Updated DateTime 06/13/2019 177.8 cm 33.9 kg/m2 509157.8 g 86 /min [facility] 06/13/2019 07:50:01 Date Recorded Body height Body mass index (BMI) Body weight Provider Name and Address Organization Details Last Updated DateTime 06/29/2019 177.8 cm 33.9 kg/m2 862987.8 g [facility] 06/29/2019 10:49:27 Date Recorded Body weight Body temperature Body mass index (BMI) Body height Heart rate Systolic blood pressure Diastolic blood pressure Provider Name and Address Organization Details Last Updated DateTime 1 19375.3 2 g 97.7 [degF] 31.6 kg/m2 177.8 cm 75 /min 131 mm[Hg] 69 mm[Hg] Janet Stoll [facility] 1 11:09:26 Social History Question Answer Notes LastModified by Organizat ion Details LastModified Time Tobacco Smoking Status Current Every Day Smoker Janet Hewitts [facility] 12/14/2020 11:04:32 Marital Status Informatio n not [...] SNOMED-CT Code Diagnosis ICD10 Code Diagnosis Note [id number] CLAUDY LUQUE MD [facility] [address] [place] [address] 02/08/2019 15:22:29 02/09/2019 07:11:35 Epididymitis 01231484 N45.1 Hydrocele 59652551 N43.3 [id number] CLAUDY LUQUE MD [facility]OLOGY [address] [address] [place] [address] 03/01/2019 07:35:36 03/01/2019 08:32:45 Epididymitis 47235653 N45.1 Hydrocele 50229371 N43.3 [id number] CLAUDY LUQUE MD SURGERY SCHEDULE [address] [place] [address] 1 04/04/2019 11:38:23 04/04/2019 11:39:05 Hydrocele of testis 53988019 N43.3 [id number] CLAUDY LUQUE MD [facility]OLOGY [facility] [address] [place] [address] 1 04/22/2019 07:42:36 04/22/2019 08:20:59 Epididymitis 91987995 N45.1 Hydrocele 65510793 N43.3 Hematoma of scrotum 8996 6002 M79.81 [id number] CLAUDY LUQUE MD [facility]OLOGY [facility] [address] [place] [address] 1 05/16/2019 07:33:42 05/16/2019 08:55:46 Hydrocele 17735465 N43.3 Hematoma of scrotum 8996 6002 M79.81 Orchitis a nd epididymitis 224233657 N45.3 [id number] CLAUDY LUQUE MD [facility]OLOGY [facility] [address] [place] [address] 1 05/24/2019 09:09:43 05/24/2019 10:36:10 Orchitis and epididymitis 721824796 N45.3 Hydrocele 32242629 N43.3 Hematoma of scrotum 8996 6002 M79.81 [id number] CLAUDY LUQUE MD [facility]Y [facility] [address] [place] [address] 1 06/06/2019 07:34:58 06/06/2019 08:50:46 Orchitis and epididymitis 801523958 N45.3 Abscess of scrotum 38142 006 N49.2 [id number] CLAUDY LUQUE MD [facility]OLOGY [facility] [address] [place] [address] 1 06/13/2019 07:45:46 06/13/2019 08:18:58 Orchitis and epididymitis 047102185 N45.3 Abscess of scrotum 91710 006 N49.2 [id number] CLAUDY LUQUE MD SURGERY SCHEDULE [address] [place] [address] 1 06/20/2019 13:07:55 06/20/2019 13:09:42 Disorder of scrotum 73435362 N50.9 Orchitis a nd epididymitis 468143510 N45.3 [id number] CLAUDY LUQUE MD UROLOGY [address] [place] [address] 06/29/2019 10:43:58 06/29/2019 12:20:35 Orchitis and epididymitis 865502220 N45.3 Abscess of scrotum 93675 006 N49.2 Health Concerns Section Related Observation LastModified by Organization Detai ls LastModified Time None Recorded Concern Status LastModified by Organization Details LastModified Time None Recorded Advance Directives Directive None Recorded Payers Insurance Date Sequence Insurance Name Policy Number Policy Burkett Covered Member ID Burkett Member ID Guarantor Name 12/11/2020 1 MEDICARE-[employer] (MEDICARE) Cristobal Vargas [id number] Cristobal Vargas 07/28/2018 1 *SELF PAY* [...] with Augmentin for epididymoorchitis. 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 He denies family history of prostate [...] trouble. He denies fever. CLAUDY LUQUE MD [address] [place] [address] [place], [address], [facility] 05/24/2019 10:21:51 06/06/2019 text/html Diagnoses: Right [...] Augmentin for epididymo-orchitis. He was admitted to [facility] and underwent left scrotal exploration and debridement 05/29/2019. He subsequently had placement of a wound VAC. 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 CLAUDY LUQUE MD [address] [place] [address], [phone], [facility] 06/06/2019 08:34:31 06/13/2019 text/html Diagnoses: Right [...] urgency, dysuria, or decreased flow. He saw va and was prescribed Bactrim DS 02/08/2019, he had dizziness and shortness of breath after a few doses and was switched to Cipro 14 days. He underwent left hydrocelectomy 04/04/2019. This was complicated by scrotal hematoma and which opened spontaneously. They started wound packing 04/22/2019 and he was treated with Augmentin for epididymo-orchitis. He was admitted to [facility] and underwent left scrotal exploration and debridement 05/29/2019. He subsequently had placement of a wound VAC. 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 CLAUDY LUQUE MD [address] [place] [address], [phone], [facility] 06/13/2019 08:15:57 06/29/2019 text/html Diagnoses: Right [...] Augmentin for epididymo-orchitis. He was admitted to [facility] and underwent left scrotal exploration and debridement 05/29/2019. He subsequently had placement of a wound VAC. He underwent closure of the scrotal wound 06/20/2019. 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 HPI: The patient is here with his Angelic for follow-up after closure of the scrotal wound last week. He has been taking Augmentin. He is on chronic narcotics. He went to the emergency room last night for scrotal pain. He denies voiding trouble. CLAUDY LUQUE MD [facility] [place], [phone], [facility] 06/29/2019 11:32:37
--- OUTSIDE RECORDS SUMMARY | 2024-10-31 10:42 | XMS_ITS | Encounter Summary ---
Author Organization [employer] Address [address] [place] [address] Care Team Providers Care Pipe Testing Technician Name Role Phone Unavailable Primary Care Provider Unavailabl e Encounter Details Date Type Department Care Team (Late st Contact Info) Description 05/30/2019 Transcribed Document [facility] [place] Family Medicine [address] [place] [address] ProviderMelanie MD [facility] [place], [place] [address] Social History Tobacco Use Types Packs/Day Years Used Date Smoking Tobacco: Never Assessed Sex and Gender Information Value Date Recorded Sex Assigned at Not on file Legal Sex Male 4:07 PM CDT Gender Identity Not on file Sexual Orientation Not on file documented as of this encounter Miscellaneous Notes * Cerner Conversion Note - Melanie ProviderMD - 05/30/2019 11:16 AM NAVAL GUNFIRE LIAISON OFFICER Initial Discharge Planning Entered On: 05/30/2019 11:18 EST Performed On: 05/30/2019 11:16 EST by LYNDSEY GAY RN-Technical Administrator Initial Assessment I Previously Documented Living Environment : No qualifying data available. LYNDSEY GAY RN-Technical Administrator - 05/30/2019 11:19 EST Living Situation : [...] Is Guardianship Needed : No LYNDSEY GAY RN-Technical Administrator - 05/30/2019 11:16 EST Initial Assessment II Sensory and Motor Deficits : None Current Home Treatments and Equipment : CPAP, Walker (Comment: Rollator [LYNDSEY GAY RN-Technical Administrator - 05/30/2019 11:19 EST] ) Home Equipment Contact Information : [facility]AP provider [phone] Services and Community Resources : Home Health (Comment: Pt states that he was current with [facility] [LYNDSEY GAY RN-Technical Administrator - 05/30/2019 11:19 EST] ) Does the Patient have a Floor to SNF Benefit? : Yes LYNDSEY GAY RN-Technical Administrator - 05/30/2019 11:16 EST Discharge Needs I Anticipated Discharge Date : 05/31/2019 EST Anticipated Discharge To, CM : Home with home health Current Home Treatment/Equipment : Current Home Treatment/Equipment No qualifying data available. Post Acute/Home Treatments : None Documentation Status Complete : Yes LYNDSEY GAY RN-Technical Administrator - 05/30/2019 11:16 EST Discharge Needs II Professional Skilled Services : Professional Skilled Services No qualifying data available. Needs Assistance with Transportation : No LYNDSEY GAY RN-Technical Administrator - 05/30/2019 11:16 EST Narrative Note Narrative [...] @ 40. CM will follow. LYNDSEY GAY RN-Technical Administrator - 05/30/2019 11:19 EST Electronically signed by Nicci Ortiz Conversion Medical Transcription Supervisor [employer]ner at 09/05/2022 2:21 PM CDT documented in this encounter Plan of Treatment Not on file documented as of this encounter Visit Diagnoses Not on filedocumented in this encounter
--- OUTSIDE RECORDS SUMMARY | 2024-10-31 10:42 | XMS_ITS | Encounter Summary ---
Author Organization [employer] Address [address] [place] [address] Care Team Providers Care Network Operations Center Engineer Name Role Phone Unavailable Primary Care Provider Unavailabl e Encounter Details Date Type Department Care Team (Late st Contact Info) Description 05/30/2019 Transcribed Document [facility] [place] [address] [place] [address] ProviderMelanie MD [facility] [place] [address] Social History Tobacco Use Types Packs/Day Years Used Date Smoking Tobacco: Never Assessed Sex and Gender Information Value Date Recorded Sex Assigned at Not on file Legal Sex Male 4:07 PM CDT Gender Identity Not on file Sexual Orientation Not on file documented as of this encounter Miscellaneous Notes * Cerner Conversion Note - Historical ProviderMD - 05/30/2019 11:23 AM CORRECTIONAL OFFICER CHIEF On Going Discharge Planning Entered On: 05/30/2019 11:23 EST Performed On: 05/30/2019 11:23 EST by LYNDSEY GAY RN-Escalation EngineerCrossbow Maker Progress Note Discharge Arrangements : Patient Post-Acute Information Patient Name: TERRI VARGAS Gender: Male : 62 Age: 59 Years No Post-Acute Placement(s) Listed No Post-Acute Service(s) Listed No Curaspan Referral(s) Listed Did you Attend Multidisciplinary Rounds? : Yes LYNDSEY GAY RN-Escalation Engineer - 05/30/2019 11:23 EST documented in this encounter Plan of Treatment Not on file documented as of this encounter Visit Diagnoses Not on filedocumented in this encounter
--- OUTSIDE RECORDS SUMMARY | 2024-10-31 10:42 | XMS_ITS | Clinical Summary ---
Author Organization [facility] Address [address] [place] [address] Care Team Providers Care Legal Compliance Officer Name Role Phone Anita Dumas Primary Care Provider [phone] Allergies Active Allergy Reactions Criticality Noted Date [...] Team Description 08/03/2024 11:30 AM EDT Consult [facility] [address], [address] [place] [address] Jermaine Pringle MD Intracranial vascular stenosis (Primary [...] (2 - Td or Tdap) 05/05/2023 05/05/2013 [id number] Vaccine (1 - season) 2024 UKY-Influenza Vaccine [...] <6.0% Children and Adolescents <7.5% . Source: [place] [employer]. Standards of medical care in diabetes, 2017. Diabetes Care.2017:40 (suppl 1):S1-S135. . HbA1c assay performed by an ion-exchange chromatography method that is certified traceable to the DCCT. 11/14/2018 6:10 PM EDT 11/14/2018 6:24 PM EDT us Mikel Dowell MUSHROOM CULTIVATOR LAB BLOOD ORDERABLES Final Re sult [facility]QUEST from Last 3 Months or Most Recently Relevant to Health Maintenance Insurance MEDICARE Care Teams Legal Compliance Officer Relationship Specialty Start Date End Date Anita Dumas PA [address] [place] [address] PCP - General 08/06/22
--- OUTSIDE RECORDS SUMMARY | 2024-10-31 10:42 | XMS_ITS | Encounter Summary ---
Author Organization [employer] Address [address] [place] [address] Care Team Providers Care Race Relations Professor Name Role Phone Unavailable Primary Care Provider Unavailabl e Encounter Details Date Type Department Care Team (Late st Contact Info) Description 05/29/2019 Transcribed Document [facility] [place] Family Medicine [address] [place] [address] ProviderMelanie MD [address] [place] [address] Social History Tobacco Use Types Packs/Day Years Used Date Smoking Tobacco: Never Assessed Sex and Gender Information Value Date Recorded Sex Assigned at Not on file Legal Sex Male 4:07 PM CDT Gender Identity Not on file Sexual Orientation Not on file documented as of this encounter Miscellaneous Notes * Cerner Conversion Note - Melanie ProviderMD - 05/29/2019 8:05 AM LABORER/GRADE CHECK Patient: TERRI MOREL Age: 59 years Sex: [...] influenza virus vaccine, inactivated: 0.5 mL, IntraMuscular, [id number] insulin regular sliding scale: Scale D, SubCutaneous, Q6H lactobacillus acidophilus: 1 Cap, Oral, BID lisinopril: 10 mg, Oral, Daily vancomycin + Sodium Chloride 0.9% intravenous solution 250 mL: 1,500 mg, 250 mL/Hr, IV Piggyback, [id number] Documented Medications Documented Aspir 81: mg, Oral, [...] Daily influenza vaccine, quadrivalent 0.5 mL, IntraMuscular, [id number] insulin regular 1 unit/0.01 mL inj 3mL Scale D, SubCutaneous, Q6H lactobacillus acidophilus cap 1 Cap, Oral, BID lisinopril 10 mg tab 10 mg 1 Tab, Oral, Daily NIFEdipine ER 90 mg tab 90 mg 1 Tab, Oral, Daily piperacillin-tazobactam + NaCl 0.9% 100 mL 3.375 Gram, IV Piggyback, Q6HInt vancomycin + NaCl 0.9% 250 mL 1,500 mg, IV Piggyback, [id number] Continuous: (1) NaCl 0.45% 1,000 mL 1,000 [...] History of obstructive sleep apnea / IMO [id number] / Confirmed, Active Problems (1) History of [...] tenderness, No swelling, No deformity. Integumentary: Warm, [place], Moist, No rash, scrotal ulcer in the [...] 41.9 \, Radiology Results (Last 48 hours) [id number] -- 05/28/2019 20:28 CR Chest 1 Vw [...] treatment plans TIME SPENT : 35 minutes Electronically signed by Nicci Ortiz Conversion Secretary To Board Of Commissioners Cerner at 09/05/2022 2:13 PM CDT documented in this encounter Plan of Treatment Not on file documented as of this encounter Visit Diagnoses Not on filedocumented in this encounter
--- OUTSIDE RECORDS SUMMARY | 2024-10-31 10:42 | XMS_ITS | Encounter Summary ---
Author Organization [employer] Address [address] [place] [address] Care Team Providers Care Merchandise Complaint Adjuster Name Role Phone Unavailable Primary Care Provider Unavailabl e Encounter Details Date Type Department Care Team (Late st Contact Info) Description 05/31/2019 Transcribed Document [facility] [place] [address] [place] [address] ProviderMelanie MD [address] [place] [address] Social History Tobacco Use Types Packs/Day Years Used Date Smoking Tobacco: Never Assessed Sex and Gender Information Value Date Recorded Sex Assigned at Not on file Legal Sex Male 4:07 PM CDT Gender Identity Not on file Sexual Orientation Not on file documented as of this encounter Miscellaneous Notes * Cerner Conversion Note - Melanie ProviderMD - 05/31/2019 4:40 PM PHOTOGRAPHIC SPOTTER Patient: TERRI MOREL Age: 59 years Sex: [...] the wound and he has been taking [place] Percocet and morphine at home with no [...]
--- OUTSIDE RECORDS SUMMARY | 2024-10-31 10:42 | XMS_ITS | Encounter Summary ---
Author Organization [employer] Address [address] [place] [address] Care Team Providers Care Special Projects Coordinator Name Role Phone Unavailable Primary Care Provider Unavailabl e Encounter Details Date Type Department Care Team (Late st Contact Info) Description 05/28/2019 Transcribed Document [facility] [place] Family [place] [address] [place] [address] ProviderMelanie MD [facility] [place], [place] [address] Social History Tobacco Use Types Packs/Day Years Used Date Smoking Tobacco: Never Assessed Sex and Gender Information Value Date Recorded Sex Assigned at Not on file Legal Sex Male 4:07 PM CDT Gender Identity Not on file Sexual Orientation Not on file documented as of this encounter Miscellaneous Notes * Cerner Conversion Note - Melanie ProviderMD - 05/28/2019 9:02 PM BIOENGINEER Patient: TERRI MOREL Age: 59 years Sex: [...] Pharmacy consulted to dose vancomycin for abscess. TOD=700 kg BMI=38.7 Consulting MD: Harshad Martino ID: [...] for this consultation. Adri Fisher, PharmD PGY-1 Returned Materials Inspector [phone] documented in this encounter Plan of Treatment Not on file documented as of this encounter Visit Diagnoses Not on filedocumented in this encounter
--- OUTSIDE RECORDS SUMMARY | 2024-10-31 10:42 | XMS_ITS | Encounter Summary ---
Author Organization [employer] Address [address] [place] [address] Care Team Providers Care Pluck Trimmer Name Role Phone Unavailable Primary Care Provider Unavailabl e Encounter Details Date Type Department Care Team (Late st Contact Info) Description 05/31/2019 Transcribed Document [facility] [place] [address] [place] [address] ProviderMelanie MD [facility] [place] [address] Social History Tobacco Use Types Packs/Day Years Used Date Smoking Tobacco: Never Assessed Sex and Gender Information Value Date Recorded Sex Assigned at Not on file Legal Sex Male 4:07 PM CDT Gender Identity Not on file Sexual Orientation Not on file documented as of this encounter Miscellaneous Notes * Cerner Conversion Note - Historical ProviderMD - 05/31/2019 5:00 AM LIGHT INDUSTRIAL SUPERVISOR Chart Check - Review Order Profile Entered [...]
--- OUTSIDE RECORDS SUMMARY | 2024-10-31 10:42 | XMS_ITS | Encounter Summary ---
Author Organization [employer] Address [address] [place] [address] Care Team Providers Care Design Eng Name Role Phone Unavailable Primary Care Provider Unavailabl e Encounter Details Date Type Department Care Team (Late st Contact Info) Description 05/28/2019 Transcribed Document [facility] [place] [facility] [place] [address] ProviderMelanie MD [address] [place] [address] Social History Tobacco Use Types Packs/Day Years Used Date Smoking Tobacco: Never Assessed Sex and Gender Information Value Date Recorded Sex Assigned at Not on file Legal Sex Male 4:07 PM CDT Gender Identity Not on file Sexual Orientation Not on file documented as of this encounter Miscellaneous Notes * Cerner Conversion Note - Melanie ProviderMD - 05/28/2019 8:56 PM CLEAN ROOM ASSEMBLER Patient: TERRI MOREL Age: 59 years Sex: [...] Patient reports he has been taking his [place] Percocet and morphine at home with no [...] Oral, BID vancomycin: 1,000 mg, IV Piggyback, [id number], Medications (16) Active Scheduled: (6) famotidine 20 mg tab 20 mg 1 Tab, Oral, BID HYDROmorphone 1 mg/1 mL inj 1 mg 1 mL, IV Push, 1-Time insulin lispro Scale D:, SubCutaneous, AC and at Bedtime lactobacillus acidophilus cap 1 Cap, Oral, BID piperacillin-tazobactam 3.375 Gram, IV Piggyback, Q6HInt vancomycin 1,000 mg, IV Piggyback, [id number] Continuous: (1) NaCl 0.45% 1000 mL 1,000 [...] diabetes mellitus Procedure history: Right total orchiectomy ([id number]). Repair of right inguinal hernia ([id number]). Hydrocele (3624358608). CABG (Coronary artery bypass grafting) planned ([id number]). Social History Social & Psychosocial Habits No [...]
--- OUTSIDE RECORDS SUMMARY | 2024-10-31 10:42 | XMS_ITS | Encounter Summary ---
Author Organization [employer] Address [address] [place] [address] Care Team Providers Care Mock Up Builder Name Role Phone Unavailable Primary Care Provider Unavailabl e Encounter Details Date Type Department Care Team (Late st Contact Info) Description 05/29/2019 Transcribed Document [facility] [place] Family Medicine [address] [place] [address] ProviderMelanie MD [address] [place], [place] [address] Social History Tobacco Use Types Packs/Day Years Used Date Smoking Tobacco: Never Assessed Sex and Gender Information Value Date Recorded Sex Assigned at Not on file Legal Sex Male 4:07 PM CDT Gender Identity Not on file Sexual Orientation Not on file documented as of this encounter Miscellaneous Notes * Cerner Conversion Note - Historical ProviderMD - 05/29/2019 2:00 AM OPEN HEARTH STOCKYARD SUPERVISOR Male Infertility Specialist Details Entered On: 05/29/2019 3:59 EST Performed [...] 3:59 EST Electronically signed by Angel [facility] Conversion Wetland Scientist Cerner at 09/05/2022 2:19 PM CDT documented in this encounter Plan of Treatment Not on file documented as of this encounter Visit Diagnoses Not on filedocumented in this encounter
--- OUTSIDE RECORDS SUMMARY | 2024-10-31 10:42 | XMS_ITS | Encounter Summary ---
Author Organization [employer] Address [address] [place] [address] Care Team Providers Care Clinical Information Systems Director Name Role Phone Unavailable Primary Care Provider Unavailabl e Encounter Details Date Type Department Care Team (Late st Contact Info) Description 05/30/2019 Transcribed Document [facility] [place] [address] [place] [address] ProviderMelanie MD [address] [place] [address] Social History Tobacco Use Types Packs/Day Years Used Date Smoking Tobacco: Never Assessed Sex and Gender Information Value Date Recorded Sex Assigned at Not on file Legal Sex Male 4:07 PM CDT Gender Identity Not on file Sexual Orientation Not on file documented as of this encounter Miscellaneous Notes * Cerner Conversion Note - Melanie ProviderMD - 05/30/2019 12:42 PM ASW SPECIALIST Patient: TERRI MOREL Age: 59 years Sex: [...] the wound and he has been taking [place] Percocet and morphine at home with no [...] process/pending Rad: Radiology Results (Last 48 hours) [id number] -- 05/28/2019 20:28 CR Chest 1 Vw [...]
--- OUTSIDE RECORDS SUMMARY | 2024-10-31 10:43 | XMS_ITS | Encounter Summary ---
Author Organization [employer] Address [address] [place] [address] Care Team Providers Care Almond Pan Finisher Name Role Phone Unavailable Primary Care Provider Unavailabl e Encounter Details Date Type Department Care Team (Late st Contact Info) Description 04/08/2019 Transcribed Document [facility] [place] Family [place] [address] [place] [address] ProviderMleanie MD [facility] [place], [place] [address] Social History Tobacco Use Types Packs/Day Years Used Date Smoking Tobacco: Never Assessed Sex and Gender Information Value Date Recorded Sex Assigned at Not on file Legal Sex Male 4:07 PM CDT Gender Identity Not on file Sexual Orientation Not on file documented as of this encounter Miscellaneous Notes * Cerner Conversion Note - Historical ProviderMD - 04/08/2019 11:03 AM ACIDIZER HELPER Pain Assessment Entered On: 04/08/2019 12:31 EST [...]
--- OUTSIDE RECORDS SUMMARY | 2024-10-31 10:43 | XMS_ITS | Encounter Summary ---
Author Organization [employer] Address [address] [place] [address] Care Team Providers Care Head Boys Golf Coach Name Role Phone Unavailable Primary Care Provider Unavailabl e Encounter Details Date Type Department Care Team (Late st Contact Info) Description 04/08/2019 Transcribed Document [facility] [place] [address] [place] [address] ProviderMelanie MD [facility] [place], [place] [address] Social History Tobacco Use Types Packs/Day Years Used Date Smoking Tobacco: Never Assessed Sex and Gender Information Value Date Recorded Sex Assigned at Not on file Legal Sex Male 4:07 PM CDT Gender Identity Not on file Sexual Orientation Not on file documented as of this encounter Miscellaneous Notes * Cerner Conversion Note - Historical ProviderMD - 04/08/2019 2:47 PM MACHINING SUPERVISOR documented in this encounter Plan of Treatment Not on file documented as of this encounter Visit Diagnoses Not on filedocumented in this encounter
--- OUTSIDE RECORDS SUMMARY | 2024-10-31 10:43 | XMS_ITS | Encounter Summary ---
Author Organization [employer] Address [address] [place] [address] Care Team Providers Care Radiator Repairer Name Role Phone Unavailable Primary Care Provider Unavailabl e Encounter Details Date Type Department Care Team (Late st Contact Info) Description 06/28/2019 Transcribed Document [facility] [place] [address] [place] [address] ProviderMelanie MD [facility] [place], [place] [address] Social History Tobacco Use Types Packs/Day Years Used Date Smoking Tobacco: Never Assessed Sex and Gender Information Value Date Recorded Sex Assigned at Not on file Legal Sex Male 4:07 PM CDT Gender Identity Not on file Sexual Orientation Not on file documented as of this encounter Miscellaneous Notes * Cerner Conversion Note - Mleanie ProviderMD - 06/28/2019 10:50 PM HOME APPLIANCES MECHANIC ED Assessment Entered On: 06/28/2019 23:13 EST Performed On: 06/28/2019 23:09 EST by Layla Vick, MACHINE SETUP OPERATOR Quick Look Assessment Level of Consciousness : [...] Genitourinary Assessment, ED Genitourinary Assessment WDL : [facility] with exceptions (Comment: Pt c/o testicular pain, [...]
--- OUTSIDE RECORDS SUMMARY | 2024-10-31 10:43 | XMS_ITS | Encounter Summary ---
Author Organization [employer] Address [address] [place] [address] Care Team Providers Care Supervisor Litharge Name Role Phone Unavailable Primary Care Provider Unavailabl e Encounter Details Date Type Department Care Team (Late st Contact Info) Description 04/08/2019 Transcribed Document [facility] [place] [address] [place] [address] ProviderMelanie MD [address] [place] [address] Social History Tobacco Use Types Packs/Day Years Used Date Smoking Tobacco: Never Assessed Sex and Gender Information Value Date Recorded Sex Assigned at Not on file Legal Sex Male 4:07 PM CDT Gender Identity Not on file Sexual Orientation Not on file documented as of this encounter Miscellaneous Notes * Cerner Conversion Note - Melanie Grider MD - 04/08/2019 11:[address]DER Patient: TERRI MOREL Age: 59 years Sex: [...] history Cardiovascular. Surgical history: Right total orchiectomy ([id number]). Repair of right inguinal hernia (8377158182). Hydrocele (3864303175). CABG (Coronary artery bypass grafting) planned ([id number]).. Family history: No family history items have [...] Color Yellow Urine Appearance Clear Urine Specific [place] >1.030 HI Urine pH Dipstick 6.0 Urine [...] % 19.5 % Lymph # 2.22 x10(3)/uL [place] % 8.9 % [place] # 1.01 K/uL HI Eos % 4.0 % Eos # 0.46 x10(3)/uL Baso % 0.6 % Baso # 0.07 x10(3)/uL nRBC 0.020 HI Slide Review No IG# 0.08 x10(3)/uL HI IG% 0.70 % HI PT 10.3 Second(s) INR 1.0 PTT 29.6 Second(s) . Radiology results: Radiology Results (Last 48 hours) [id number] -- 04/08/2019 10:42 US Scrotum and Contents [...] EST, Discharge to: Home . Prescriptions: Prescription [facility]: [facility] rectal enema (Prescribe): [...]
--- OUTSIDE RECORDS SUMMARY | 2024-10-31 10:43 | XMS_ITS | Clinical Summary ---
Author Organization [employer] Address [address] [place] [address] Care Team Providers Care Coat Presser Name Role Phone Unavailable Primary Care Provider [...]
--- OUTSIDE RECORDS SUMMARY | 2024-10-31 10:43 | XMS_ITS | Encounter Summary ---
Author Organization [employer] i[employer] Address [address] [place] [address] Care Team Providers Care Certified Ophthalmic Technologist Name Role Phone Unavailable Primary Care Provider Unavailabl e Encounter Details Date Type Department Care Team (Late st Contact Info) Description 09/27/[address] [facility] [place] Family Medicine [address] [place] [address] ProviderMelanie MD [facility] [place], [place] [address] Social History Tobacco Use Types Packs/Day Years [...] 8. Melatonin. 9. Tradjenta. 10. Glimepiride. 11. [place]. 12. Omeprazole. 13. Buprenorphine. 14. Januvia. 15. [...] up in 1 year and as needed. Covi-ym-gnrd time today was 15 minutes with more than half of this in counseling regarding smoking and his use of CPAP. /[id number] MD JANES Jeffrey/LESLEY / JS / MODL /[id number] CC: José Elizabeth MD documented in this encounter Plan of Treatment Not on file documented as of this encounter Visit Diagnoses Not on filedocumented in this encounter
--- OUTSIDE RECORDS SUMMARY | 2024-10-31 10:43 | XMS_ITS | Encounter Summary ---
Author Organization [employer] Address [address] [place] [address] Care Team Providers Care Revenue Stamp Cutter Name Role Phone Unavailable Primary Care Provider Unavailabl e Encounter Details Date Type Department Care Team (Late st Contact Info) Description 06/10/2019 Transcribed Document [facility] [place] [address] [place] [address] ProviderMelanie MD [address] [place] [address] Social History Tobacco Use Types Packs/Day Years Used Date Smoking Tobacco: Never Assessed Sex and Gender Information Value Date Recorded Sex Assigned at Not on file Legal Sex Male 4:07 PM CDT Gender Identity Not on file Sexual Orientation Not on file documented as of this encounter Miscellaneous Notes * Cerner Conversion Note - Historical ProviderMD - 06/10/2019 2:25 PM HEART DOCTOR DATE OF ADMISSION: 06/09/2019 HISTORY: This is a 59-year-old male, resident of [place], [place], we are seeing on referral from [...] with orchitis. He was admitted here at [place] earlier this month for a surgical cleanout and additional debridement. This time, he was treated with a negative pressure wound system, which is still in place. The testicle remains. He has been having difficulty at home with frequent signaling of the device. He has one of the Equals6 products, and unfortunately, we have found this [...] by with just 2 changes per week. /[id number] MD MELI Terry III/LESLEY / MELI / JOVANY CC: MD Chuck Martinez MD Electronically signed by Angel [facility] Conversion Ip Technology Transactions Attorney Cerner at 09/05/2022 2:16 PM CDT documented in this encounter Plan of Treatment Not on file documented as of this encounter Visit Diagnoses Not on filedocumented in this encounter
--- OUTSIDE RECORDS SUMMARY | 2024-10-31 10:43 | XMS_ITS | Encounter Summary ---
Author Organization [employer] Address [address] [place] [address] Care Team Providers Care Despatch Clerk Name Role Phone Unavailable Primary Care Provider Unavailabl e Encounter Details Date Type Department Care Team (Late st Contact Info) Description 06/28/2019 Transcribed Document [facility] [place] [address] [place] [address] ProviderMelanie MD [address] [place] [address] Social History Tobacco Use Types Packs/Day Years Used Date Smoking Tobacco: Never Assessed Sex and Gender Information Value Date Recorded Sex Assigned at Not on file Legal Sex Male 4:07 PM CDT Gender Identity Not on file Sexual Orientation Not on file documented as of this encounter Miscellaneous Notes * Cerner Conversion Note - Historical ProviderMD - 06/28/2019 11:30 AM LEAD WORKER OF HOUSEKEEPING AND LAUNDRY ED Event Note Entered On: 06/29/2019 0:07 EST Performed On: 06/28/2019 11:30 EST by KEN REBOLLEDO ED Event Note ED Event Date/Time : 06/28/2019 11:30 EST ED Description of Event : pt requesting pain medication, refused Ibuprofen. MD Jackson aware. KEN REBOLLEDO - 06/29/2019 0:06 EST Electronically signed by Angel [facility] Conversion Engineer Fishing Vessel Cerner at 09/05/2022 2:30 PM CDT documented in this encounter Plan of Treatment Not on file documented as of this encounter Visit Diagnoses Not on filedocumented in this encounter
--- OUTSIDE RECORDS SUMMARY | 2024-10-31 10:43 | XMS_ITS | Encounter Summary ---
Author Organization [employer] Address [address] [place] [address] Care Team Providers Care Warp Placer Name Role Phone Unavailable Primary Care Provider Unavailabl e Encounter Details Date Type Department Care Team (Late st Contact Info) Description 06/29/2019 Transcribed Document [facility] [place] Family Medicine [address] [place] [address] ProviderMelanie MD [facility] [place] [address] Social History Tobacco Use Types Packs/Day Years Used Date Smoking Tobacco: Never Assessed Sex and Gender Information Value Date Recorded Sex Assigned at Not on file Legal Sex Male 4:07 PM CDT Gender Identity Not on file Sexual Orientation Not on file documented as of this encounter Miscellaneous Notes * Cerner Conversion Note - Historical ProviderMD - 06/29/2019 12:12 AM EXERCISE EQUIPMENT REPAIR TECHNICIAN ED Discharge Entered On: 06/29/2019 0:12 EST Performed On: 06/29/2019 0:12 EST by Layla Vick, ferruler Process Patient Disposition : AMA/Elope/LWBS Personal Belongings [...] 06/29/2019 0:12 EST Electronically signed by Angel [facility] Conversion Police Clerk Cerner at 09/05/2022 2:22 PM CDT documented in this encounter Plan of Treatment Not on file documented as of this encounter Visit Diagnoses Not on filedocumented in this encounter
--- OUTSIDE RECORDS SUMMARY | 2024-10-31 10:43 | XMS_ITS | Encounter Summary ---
Author Organization [employer] Address [address] [place] [address] Care Team Providers Care Melter Helper Name Role Phone Unavailable Primary Care Provider Unavailabl e Encounter Details Date Type Department Care Team (Late st Contact Info) Description 04/08/2019 Transcribed Document [facility] [place] [address] [place] [address] ProviderMelanie MD [facility] [place] [address] Social History Tobacco Use Types Packs/Day Years Used Date Smoking Tobacco: Never Assessed Sex and Gender Information Value Date Recorded Sex Assigned at Not on file Legal Sex Male 4:07 PM CDT Gender Identity Not on file Sexual Orientation Not on file documented as of this encounter Miscellaneous Notes * Cerner Conversion Note - Historical ProviderMD - 04/08/2019 3:10 PM BANKRUPTCY ASSISTANT ED Discharge Entered On: 04/08/2019 15:10 [...]
--- OUTSIDE RECORDS SUMMARY | 2024-10-31 10:43 | XMS_ITS | Encounter Summary ---
Author Organization [employer] Address [address] [place] [address] Care Team Providers Care Marine Service Operator Name Role Phone Unavailable Primary Care Provider Unavailabl e Encounter Details Date Type Department Care Team (Late st Contact Info) Description 06/28/2019 Transcribed Document [facility] [place] [address] [place] [address] ProviderMelanie MD [address] [place] [address] Social History Tobacco Use Types Packs/Day Years Used Date Smoking Tobacco: Never Assessed Sex and Gender Information Value Date Recorded Sex Assigned at Not on file Legal Sex Male 4:07 PM CDT Gender Identity Not on file Sexual Orientation Not on file documented as of this encounter Miscellaneous Notes * Cerner Conversion Note - Historical ProviderMD - 06/28/2019 10:50 PM OFFSET LITHOGRAPHIC PRESS SETTER [place] Suicide Severity Rating Scale (C-SSRS) Entered On: 06/28/2019 23:13 EST Performed On: 06/28/2019 23:09 EST by Layla Vick RN [place] Suicide Severity Rating Scale (C-SSRS) CSSRS Past Month Wish to be : No CSSRS Past Month Suicidal Thoughts : No CSSRS Lifetime Suicide Behavior : No Suicide Severity Rating Score : 0 Suicide Severity Rating : No Additional Care Required at this time Layla Vick RN - 06/28/2019 23:09 EST Electronically signed by Angel [facility] Conversion Poultry Farm Supervisor Cerner at 09/05/2022 2:21 PM CDT documented in this encounter Plan of Treatment Not on file documented as of this encounter Visit Diagnoses Not on filedocumented in this encounter
--- OUTSIDE RECORDS SUMMARY | 2024-10-31 10:43 | XMS_ITS | Encounter Summary ---
Author Organization [employer] Address [address] [place] [address] Care Team Providers Care Certified Forklift Operator Name Role Phone Unavailable Primary Care Provider Unavailabl e Encounter Details Date Type Department Care Team (Late st Contact Info) Description 06/29/2019 Transcribed Document [facility] [place] Family [place] [address] [place] [address] ProviderMelanie MD [address] [place] [address] Social History Tobacco Use Types Packs/Day Years Used Date Smoking Tobacco: Never Assessed Sex and Gender Information Value Date Recorded Sex Assigned at Not on file Legal Sex Male 4:07 PM CDT Gender Identity Not on file Sexual Orientation Not on file documented as of this encounter Miscellaneous Notes * Cerner Conversion Note - Historical ProviderMD - 06/29/2019 12:06 AM BLOW TORCH OPERATOR ED Event Note Entered On: 06/29/2019 0:09 EST Performed On: 06/29/2019 0:06 EST by Layla Vick COMBINATION SAW OPERATOR Event Note ED Event Date/Time : 06/29/2019 [...] for a visit I will get a atm technician I am not kidding. Pt educated on implications r/t AMA, pt proceeds to get dressed and exit ED. Layla Vick RN - 06/29/2019 0:06 EST documented in this encounter Plan of Treatment Not on file documented as of this encounter Visit Diagnoses Not on filedocumented in this encounter
--- OUTSIDE RECORDS SUMMARY | 2024-10-31 10:43 | XMS_ITS | Encounter Summary ---
Author Organization [employer] Address [address] [place] [address] Care Team Providers Care Sludge Mill Operator Name Role Phone Unavailable Primary Care Provider Unavailabl e Encounter Details Date Type Department Care Team (Late st Contact Info) Description 09/06/2018 Transcribed Document [facility] [place] [address] [place] [address] ProviderMelanie MD [facility] [place] [address] Social History Tobacco Use Types Packs/Day Years [...] no sleepiness and scores 4/24 in the [place] Sleepiness Scale. He previously had noted insomnia [...] 6. Melatonin. 7. Tradjenta. 8. Glimepiride. 9. [facility]. 10. Omeprazole. 11. Bupropion. 12. Janumet. 13. [...]
--- OUTSIDE RECORDS SUMMARY | 2024-10-31 10:43 | XMS_ITS | Referral Summary ---
Author Organization [employer] Address [address] [place] [address] Care Team Providers Care Power Ballast Machine Operator Name Role Phone Unavailable Primary [...]
--- OUTSIDE RECORDS SUMMARY | 2024-10-31 10:43 | XMS_ITS | Clinical Summary ---
Author Organization [facility] Address [address] [place] [address] Phone Care Team Providers Care Cylinder Valve Repairer Name Role Phone Darnell Elizabeth MD Primary Care Provider [phone] Allergies Active Allergy Reactions Criticality Noted Date [...] patient's age to complete this topic Insurance [facility] Care Teams Cylinder Valve Repairer Relationship Specialty Start Date End Date Darnell Elizabeth MD [address] [place] [address] PCP - General Internal Medicine 12/31/12
--- OUTSIDE RECORDS SUMMARY | 2024-10-31 10:43 | XMS_ITS | Encounter Summary ---
Author Organization [employer] Address [address] [place] [address] Care Team Providers Care Glass Beveler Name Role Phone Unavailable Primary Care Provider Unavailabl e Encounter Details Date Type Department Care Team (Late st Contact Info) Description 06/28/2019 Transcribed Document [facility] [place] [address] [place] [address] ProviderMelanie MD [address] [place] [address] Social History Tobacco Use Types Packs/Day Years Used Date Smoking Tobacco: Never Assessed Sex and Gender Information Value Date Recorded Sex Assigned at Not on file Legal Sex Male 4:07 PM CDT Gender Identity Not on file Sexual Orientation Not on file documented as of this encounter Miscellaneous Notes * Cerner Conversion Note - Melanie ProviderMD - 06/28/2019 11:16 PM RURAL ROUTE MAIL CARRIER Patient: TERRI VARGAS Age: 59 years Sex: [...] % 33.5 % Lymph # 2.97 x10(3)/uL Lamb % 7.4 % Lamb # 0.66 K/uL Eos % 5.1 % [...]
--- OUTSIDE RECORDS SUMMARY | 2024-10-31 10:43 | XMS_ITS | Encounter Summary ---
Author Organization [employer] Address [address] [place] [address] Care Team Providers Care Manager Combination Name Role Phone Unavailable Primary Care Provider Unavailabl e Encounter Details Date Type Department Care Team (Late st Contact Info) Description 06/16/2019 Transcribed Document [facility] [place] [facility] [place] [address] ProviderMelanie MD [address] [place] [address] Social History Tobacco Use Types Packs/Day Years Used Date Smoking Tobacco: Never Assessed Sex and Gender Information Value Date Recorded Sex Assigned at Not on file Legal Sex Male 4:07 PM CDT Gender Identity Not on file Sexual Orientation Not on file documented as of this encounter Miscellaneous Notes * Cerner Conversion Note - Historical ProviderMD - 06/16/2019 10:36 AM HARNESS BUILDER DATE OF CONSULTATION: 06/16/2019 HISTORY: This is [...] has seen his urologist, Dr. Arguello, at [facility]. The plan now is to do a [...] surgical wound covers such as Prevena NPWT. /[id number] MD MELI Terry III/LESLEY / MELI / JOVANY /[id number] documented in this encounter Plan of Treatment Not on file documented as of this encounter Visit Diagnoses Not on filedocumented in this encounter
--- OUTSIDE RECORDS SUMMARY | 2024-10-31 10:43 | XMS_ITS | Encounter Summary ---
Author Organization [employer] Address [address] [place] [address] Care Team Providers Care Collar Shaper Operator Name Role Phone Unavailable Primary Care Provider Unavailabl e Encounter Details Date Type Department Care Team (Late st Contact Info) Description 04/08/2019 Transcribed Document [facility] [place] Family Medicine [address] [place] [address] ProviderMelanie MD [address] [place] [address] Social History Tobacco Use Types Packs/Day Years Used Date Smoking Tobacco: Never Assessed Sex and Gender Information Value Date Recorded Sex Assigned at Not on file Legal Sex Male 4:07 PM CDT Gender Identity Not on file Sexual Orientation Not on file documented as of this encounter Miscellaneous Notes * Cerner Conversion Note - Melanie Grider MD - 04/08/2019 3:10 PM FLEXBOARD OPERATOR [facility] [place] [address] TERRI MOREL :1960 Visit Time:04/08/2019 [...] 5 days Where: [address] [facility] [place] [address]- Business (1) Follow Up with SUKHJINDER SHRESTHA When Within 2 to 3 days Where: [address] [place] [address]- x8 Business (1) Allergies No Known Allergies [...] range between ( 0.0 and 7.0 ) Worth #: 1.01 K/uL -- Normal range between ( 0.16 and 1.00 ) Eos #: 0.46 x10(3)/uL -- Normal range between ( 0.00 and 0.80 ) Worth %: 8.9 % -- Normal range between [...] ) Urine Bilirubin Dipstick: Negative Urine Specific Hillman: >1.030 -- Normal range between ( 1.005 [...] in fiber, or overly processed, such as ukrainian fries, hamburgers, cookies, candies, and soda. ??? Drink enough fluid to keep your urine clear or pale yellow. General instructions ??? Exercise regularly or as told by your health care provider. ??? Go to the restroom when you have the urge to go. Do not hold it in. ??? Take rpkm-div-nlwbjdq and prescription medicines only as told by [...] 01/30/2005 Document Revised: 11/21/2016 Document Reviewed: 10/22/2016 [employer] Interactive Patient Education ?? 2019 [employer] Scrotal Hematoma Scrotal hematoma is a [...] minutes, 2???3 times a day. ??? Take nkzp-sss-steokpa and prescription medicines only as told by [...] 08/03/2007 Document Revised: 08/11/2017 Document Reviewed: 08/11/2017 [employer] Interactive Patient Education ?? 2019 [employer] Emergency Awareness and Preventative Care STROKE [...] Assistance with quitting is available by contacting 5-209-AMUQNOW. This is a free resource providing counseling, support, and referral. Or you may contact your personal physician. [place] Suicide Prevention Lifeline: The National Suicide Prevention [...] was given the opportunity to ask questions. Patient/Mold Maker Apprentice Name: Patient/Mold Maker Apprentice Signature: Relationship to Patient: Clinician/Hospital Mold Maker Apprentice Signature: Please Provide a Telephone Number Where You Can Be Reached: Is it Permissible To Leave a Message? Date: Electronically signed by Interface, [facility] Conversion Criminalist Olivianer at 09/05/2022 2:15 PM CDT documented in this encounter Plan of Treatment Not on file documented as of this encounter Visit Diagnoses Not on filedocumented in this encounter
--- OUTSIDE RECORDS SUMMARY | 2024-10-31 10:43 | XMS_ITS | Encounter Summary ---
Author Organization [employer] Address [address] [place] [address] Care Team Providers Care Well Point Pumping Supervisor Name Role Phone Unavailable Primary Care Provider Unavailabl e Encounter Details Date Type Department Care Team (Late st Contact Info) Description 06/28/2019 Transcribed Document [facility] [place] [facility] [place] [address] ProviderMelanie MD [address] [place] [address] Social History Tobacco Use Types Packs/Day Years Used Date Smoking Tobacco: Never Assessed Sex and Gender Information Value Date Recorded Sex Assigned at Not on file Legal Sex Male 4:07 PM CDT Gender Identity Not on file Sexual Orientation Not on file documented as of this encounter Miscellaneous Notes * Cerner Conversion Note - Melanie ProviderMD - 06/28/2019 10:50 PM EMERGENCY DEPT TECH ED Triage Entered On: 06/28/2019 23:04 EST [...] Urgent Tracking Group : [facility] ED Montse Mooney RN-Flex Team - 06/28/2019 [...] Onset Date: Unspecified ; Created By: Contributor_system HIST_SaaSAssuranceMIHIR; Reaction Status: Active ; Category: Drug ; Substance: No Known Allergies ; Type: Allergy ; Updated By: Contributor_system HIST_CERMIHIR; Reviewed Date: 06/28/2019 23:01 EST Diagnosis Control ED (As Of: 06/28/2019 23:04:04 EST) Problems(Active) CAD (coronary artery disease) (SNOMED CT :42249390 ) Name of Problem: CAD (coronary artery disease) ; Recorder: Montse Mooney RN-Flex Team; Confirmation: Confirmed ; Classification: Medical ; Code: [id number] ; Contributor System: NightOwl ; Last Updated: 06/28/2019 23:02 EST ; Life Cycle Date: 06/28/2019 ; Life Cycle Status: Active ; Vocabulary: SNOMED CT Diabetes mellitus (SNOMED CT :063761386 ) Name of Problem: Diabetes mellitus ; Recorder: Montse Mooney RN-Flex Team; Confirmation: Confirmed ; Classification: Medical ; Code: [id number] ; Contributor System: PowerChart ; Last Updated: 06/28/2019 23:02 EST ; Life Cycle Date: 06/28/2019 ; Life Cycle Status: Active ; Vocabulary: SNOMED CT History of obstructive sleep apnea (IMO :39944239 ) Name of Problem: History of obstructive sleep apnea ; Recorder: SYSTEM, SYSTEM; Confirmation: Confirmed ; Classification: Medical ; Code: 13962360 ; Last Updated: 05/29/2019 0:07 EST ; Life Cycle Date: 05/29/2019 ; Life Cycle Status: Active ; Vocabulary: IMO HLD (hyperlipidemia) (SNOMED CT :62329831 ) Name of Problem: HLD (hyperlipidemia) ; Recorder: Montse Mooney RN-Flex Team; Confirmation: Confirmed ; Classification: Medical ; Code: 73432018 ; Contributor System: NightOwl ; Last Updated: 06/28/2019 23:02 EST ; Life Cycle Date: 06/28/2019 ; Life Cycle Status: Active ; Vocabulary: SNOMED CT HTN (hypertension) (SNOMED CT :3761254604 ) Name of Problem: HTN (hypertension) ; Recorder: Montse Mooney RN-Flex Team; Confirmation: Confirmed ; Classification: Medical ; Code: [id number] ; Contributor System: PowerChart ; Last Updated: 06/28/2019 23:02 EST ; Life Cycle Date: 06/28/2019 ; Life Cycle Status: Active ; Vocabulary: SNOMED CT Diagnoses(Active) Testicular pain Date: 06/28/2019 ; Diagnosis Type: Reason For Visit ; Confirmation: Complaint of ; Clinical Dx: Testicular pain ; Classification: Medical ; Clinical Service: Non-Specified ; Code: PNED ; Probability: 0 ; Diagnosis Code: [id number] ED Height and Weight Height Source : Stated Height Entry Format : Reynolds Height, Feet : 5 ft(Converted to: 152 cm, 60 Inch) Height, Inches : 11 Inch(Converted to: 0 ft 11 Inch, 27.94 cm) Clinical Height : 180.34 cm Weight Source, ED : Standing scale Weight Entry Format : Reynolds Weight, Pounds : 230.6 lb Clinical Dosing Weight : 104.82 kg Body Surface Area (BSA) : 2.24 m2 Body Mass Index : 32.2 kg/m2 (HI) [place] Body Weight (IBW) : 74.31 kg Montse [...]
--- OUTSIDE RECORDS SUMMARY | 2024-10-31 10:43 | XMS_ITS | Encounter Summary ---
Author Organization [employer] Address [address] [place] [address] Care Team Providers Care Supervisor International Reservations Name Role Phone Unavailable Primary Care Provider Unavailabl e Encounter Details Date Type Department Care Team (Late st Contact Info) Description 04/08/2019 Transcribed Document [facility] [place] [address] [place] [address] ProviderMelanie MD [facility] [place], [place] [address] Social History Tobacco Use Types Packs/Day Years Used Date Smoking Tobacco: Never Assessed Sex and Gender Information Value Date Recorded Sex Assigned at Not on file Legal Sex Male 4:07 PM CDT Gender Identity Not on file Sexual Orientation Not on file documented as of this encounter Miscellaneous Notes * Cerner Conversion Note - Melanie ProviderMD - 04/08/2019 10:42 AM CHEMICAL PATHOLOGIST ED Triage Entered On: 04/08/2019 10:52 EST [...] : 3 - Urgent Tracking Group : [facility] ED KEN REBOLLEDO - 04/08/2019 10:49 [...] Onset Date: Unspecified ; Created By: CONTRIBUTOR_SYSTEM, HIST_Alcanzar SolarMIHIR; Reaction Status: Active ; Category: Drug ; [...] PNED ; Probability: 0 ; Diagnosis Code: [id number] ED Height and Weight Height Source : Stated Height Entry Format : [place] Height, Feet : 5 ft(Converted to: 152 cm, 60 Inch) Height, Inches : 11 Inch(Converted to: 0 ft 11 Inch, 27.94 cm) Clinical Height : 180.34 cm Weight Source, ED : Critical estimated dosing weight Weight Entry Format : [place] Weight, Pounds : 230 lb Clinical Dosing Weight : 104.55 kg Body Surface Area (BSA) : 2.24 m2 Body Mass Index : 32.1 kg/m2 (HI) [place] Body Weight (IBW) : 74.31 kg KEN REBOLLEDO - 04/08/2019 10:49 EST documented in this encounter Plan of Treatment Not on file documented as of this encounter Visit Diagnoses Not on filedocumented in this encounter
--- OUTSIDE RECORDS SUMMARY | 2024-10-31 10:43 | XMS_ITS | Encounter Summary ---
Author Organization [employer] Address [address] [place] [address] Care Team Providers Care Banbury Operator Name Role Phone Unavailable Primary Care Provider Unavailabl e Encounter Details Date Type Department Care Team (Late st Contact Info) Description 06/01/2019 Transcribed Document [facility] [place] Family Medicine [address] [place] [address] ProviderMelanie MD [address] [place] [id number] Social History Tobacco Use Types Packs/Day Years Used Date Smoking Tobacco: Never Assessed Sex and Gender Information Value Date Recorded Sex Assigned at Not on file Legal Sex Male 4:07 PM CDT Gender Identity Not on file Sexual Orientation Not on file documented as of this encounter Miscellaneous Notes * Cerner Conversion Note - Melanie ProviderMD - 06/01/2019 4:08 PM LEASE EXAMINER Patient: TERRI MOREL Age: 59 years Sex: [...] the wound and he has been taking [place] Percocet and morphine at home with no [...] and f/u with me Thursday in clinic documented in this encounter Plan of Treatment Not on file documented as of this encounter Visit Diagnoses Not on filedocumented in this encounter
--- OUTSIDE RECORDS SUMMARY | 2024-10-31 10:43 | XMS_ITS | Encounter Summary ---
Author Organization [employer] Address [address] [place] [address] Care Team Providers Care Advertisement Compositor Name Role Phone Unavailable Primary Care Provider Unavailabl e Encounter Details Date Type Department Care Team (Late st Contact Info) Description 06/05/2019 Transcribed Document [facility] [place] [facility] [place] [address] ProviderMelanie MD [address] [place] [id number] Social History Tobacco Use Types Packs/Day Years Used Date Smoking Tobacco: Never Assessed Sex and Gender Information Value Date Recorded Sex Assigned at Not on file Legal Sex Male 4:07 PM CDT Gender Identity Not on file Sexual Orientation Not on file documented as of this encounter Miscellaneous Notes * Cerner Conversion Note - Melanie ProviderMD - 06/05/2019 1:08 PM DAM WORKER Patient: TERRI MOREL Age: 59 Years Sex: [...] Patient reports he has been taking his [place] Percocet and morphine at home with no [...]
--- OUTSIDE RECORDS SUMMARY | 2024-10-31 10:43 | XMS_ITS | Encounter Summary ---
Author Organization [employer] Address [address] [place] [address] Care Team Providers Care Legal Intern Name Role Phone Unavailable Primary Care Provider Unavailabl e Reason for Referral * Consultation (Routine) - Closed Specialty Diagnoses / Procedures Referred By Contac t Referred To Contact Psychology / Behavioral Health Diagnoses Other chronic pain Rick Jacobo MD [address] [address] [place] [address] Phone: tel: fax: Tresa Herrera, [place] [address] [place] [address] Phone: tel: fax: Referral ID Status Reason Start Date Expiration Date V isits Requested Visits Authorized [id number] Closed Specialty Services Required 04/01/2023 09/28/2023 1 1 Encounter Details Date Type Department Care Team (Late st Contact Info) Description 04/01/2023 Outside Orders [facility] Central Scheduling [address] [place] [address] Rick Jacobo MD [address] [address] [place] [address] Other chronic pain (Primary Dx); Chronic pain [...]
--- OUTSIDE RECORDS SUMMARY | 2024-10-31 10:43 | XMS_ITS | Encounter Summary ---
Author Organization [employer] Address [address] [place] [address] Care Team Providers Care Management Instructor Name Role Phone Unavailable Primary Care Provider Unavailabl e Encounter Details Date Type Department Care Team (Late st Contact Info) Description 04/08/[address] [facility] [place] Family Medicine [address] [place] [address] ProviderMelanie MD [facility] [place], [place] [id number] Social History Tobacco Use Types Packs/Day Years Used Date Smoking Tobacco: Never Assessed Sex and Gender Information Value Date Recorded Sex Assigned at Not on file Legal Sex Male 4:07 PM CDT Gender Identity Not on file Sexual Orientation Not on file documented as of this encounter Miscellaneous Notes * Cerner Conversion Note - Melanie ProviderMD - 04/08/2019 10:42 AM PAPER TESTER ED Assessment Entered On: 04/08/2019 10:57 EST [...] Communication Barrier : None Primary Language : Montenegrin Any Spiritual/Cultural Needs or Requests : No [...]
[2024-10-31] MEDS: KETOROLAC 30MG/ML VIAL 15 MG IV (10:47)
[2024-10-31] MEDS: METHOCARBAMOL 500MG TABLET 500 MG PO (10:47)
[2024-10-31] MEDS: ACETAMINOPHEN 500MG TAB 1000 MG PO (10:47)
[2024-10-31 10:52] LABS: Basophils % 0.6 % (0.1-2.0); Eosinophils # 0.1 Kmm3 (0.0-0.4); Eosinophils % 1.6 % (0.1-12.0); Hematocrit 47.1 % (42.0-52.0); Hemoglobin 15.1 g/dL (14.1-18.0); Immature Granulocytes # 0.04 10^3uL; Immature Granulocytes % 0.6 %; Lymphocytes # 1.5 K/mm3 (0.7-4.5); Lymphocytes % 24.3 % (10-50); Mean Corpuscular HGB Conc 32.1 g/dL (31.8-35.4); Mean Corpuscular Hemoglobin 28.9 pg (27.0-31.2); Mean Corpuscular Volume 90.1 fl (80-94); Mean Platelet Volume 11.9 fl (7.4-10.4); Monocytes # 0.6 K/mm3 (0.1-1.0); Monocytes % 9.2 % (1.7-9.3); Neutrophils # 3.9 K/mm3 (1.8-7.8); Neutrophils % 63.7 % (37.0-80.0); Nucleated Red Blood Cells # 0 10^3/uL; Nucleated Red Blood Cells % 0 %; Platelet Count 163 K/mm3 (142-424); Red Blood Count 5.23 M/mm3 (4.60-6.20); Red Cell Distribution Width 14.9 % (11.5-17.5); Red Cell Distribution Width-SD 49.5 fL; White Blood Count 6.2 K/mm3 (4.8-10.8)
--- NOTE | 2024-10-31 10:52 | CT_ITS ---
FINAL REPORT CLINICAL HISTORY: bilat LE pain, superficial R fem art stenosis COMPARISON: None FINDINGS: Post contrast axial imaging of the aorta and bilateral lower extremity was obtained and reviewed. This study was performed with techniques to keep radiation doses as low as reasonably achievable (ALARA). Individualized dose reduction techniques using automated exposure control or adjustment of mA and/or kV according to the patient's size were employed. There is no evidence of aortic aneurysm. There is no evidence of aortic stenosis. The celiac axis, superior mesenteric artery and inferior mesenteric artery are patent without significant stenosis. There is no evidence of significant renal artery stenosis. The iliac arteries contain moderate vascular calcifications, without significant stenosis. The internal iliac arteries are patent. 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 There is reconstitution of the proximal SFA distal to that occluded segment. There is extensive vascular calcification present throughout the superficial femoral artery, particularly at the level of the adductor canal. There are multifocal stenoses in the distal superficial femoral artery. These continue through the popliteal artery, where dense calcification is present. There is three-vessel runoff to the ankle, particularly in the peroneal and posterior tibial arteries. Left: The left common femoral artery, deep femoral artery and superficial femoral artery are all patent, with extensive vascular calcifications and multifocal stenoses, some greater than 50%, extending to the popliteal artery, where there is greater than 80% stenosis. There is two-vessel runoff to the foot via the posterior tibial and peroneal arteries. There are mild chronic changes in the lung bases. There is streak artifact secondary to pacemaker wires. Mild fatty infiltration of the liver is present. The gallbladder has been resected. There is mild to moderate hepatosplenomegaly, the liver measuring 23 cm in length, the spleen 15 cm in length. The pancreas is unremarkable in appearance. There is bilateral adrenal hyperplasia, as well as a 2.2 cm left adrenal nodule best seen on image #48 of series 5, adenoma is favored. The kidneys are unremarkable. Postoperative changes are noted secondary to right pelvic hernia repair. 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 Extensive vascular calcifications are present throughout particularly in the adductor canal. There is three-vessel runoff in the right leg. There are multifocal stenoses in the left superficial femoral artery, more prominent in the popliteal artery where there is 80% narrowing. Two-vessel runoff is present via the posterior tibial and peroneal arteries. Mild to moderate hepatosplenomegaly is present, with bilateral adrenal nodules as described. Reviewed, Interpreted and Dictated by Khang Franco MD Transcribed by Kelly Vuong Authenticated and . [facility]
[2024-10-31 11:02] LABS: Creatine Kinase 38 U/L (55-170)
[2024-10-31 11:07] LABS: D-Dimer 0.54 ug/mL (0.0-0.5)
[2024-10-31 11:08] LABS: C-Reactive Protein 1.8 mg/L (0-4)
[2024-10-31 11:13] LABS: Acetone, Serum (Rapid) None Detected (None Detect)
[2024-10-31] MEDS: 0.9 % SODIUM CHLORIDE 50 ML VIAL IV ×2 (11:18)
[2024-10-31] MEDS: IOPAMIDOL-370 (76%);100ML BOTTLE 20 ML IV (11:18)
[2024-10-31] MEDS: IOPAMIDOL-370 (76%);100ML BOTTLE 100 ML IV (11:18)
[2024-10-31] MEDS: SODIUM CHLORIDE 0.9% 10ML SYR (RAD ONLY) 10 ML IV (11:18)
[2024-10-31 11:20] LABS: Magnesium 2.1 mg/dl (1.6-2.3)
[2024-10-31 11:28] LABS: Lactic Acid 1.1 mmol/L (0.7-2.1)
[2024-10-31 11:37] LABS: Albumin Level 4.3 g/dl (3.5-5.0); Chloride 104 mmol/L (98-107); Potassium 4.9 mmoL/L (3.5-5.1); Sodium 136 mmol/L (136-145)
[2024-10-31 11:38] LABS: Erythrocyte Sedimentation Rate 26 mm/hr (0-20)
[2024-10-31 11:40] LABS: Alanine Aminotransferase 20 U/L (12-78); Albumin/Globulin Ratio 1.3 (1.1-1.8); Alkaline Phosphatase 132 U/L (38-126); Anion Gap 10.9 mEq/L (5-15); Aspartate Amino Transferase 25 U/L (17-59); Bilirubin,Total 0.4 mg/dl (0.2-1.3); Blood Urea Nitrogen 42 mg/dl (9-20); Carbon Dioxide 26 mmol/L (22.0-30.0); Creatinine Clearance Estimated 76 mL/min (50-200); Estimated Glomerular Filt Rate 51 ml/min (>60); GFR (African American) 62 ML/MIN (>60); Globulin 3.4 g/dL (1.3-3.2); Total Protein,Serum 7.7 g/dl (6.3-8.2)
[2024-10-31 11:41] LABS: Calcium 9.6 mg/dl (8.4-10.2); Glucose 270 mg/dl (74-100)
== END 2024-10-31 13:24 | disposition home or self-care (01) ==
PROVIDERS: Physician Assistant; Emergency Provider Emergency Medicine; PCP Family Medicine
DX: I73.9 Peripheral vascular disease, unspecified (principal); M79.604 Pain in right leg; M79.605 Pain in left leg; F17.210 Nicotine dependence, cigarettes, uncomplicated; I10 Essential (primary) hypertension
CPT/HCPCS: 75635; 80053; 82009; 82550; 83605; 83735; 85025; 85378; 85651; 86140; 96374; 99284; J1885; Q9967

== ENCOUNTER 2024-11-04 19:54 | Emergency (ER) | payer MEDICARE, SELFPAY ==
--- OUTSIDE RECORDS SUMMARY | 2007-03-04 05:58 | XMS_ITS | Continuity of Care Document ---
Author Organization [facility] Address [address] [place] [phone] Phone Care Team Providers Care Web Services Architect Name Role Phone Sourav Tripp MD Unavailable Unavailable Procedures Procedure Date Offic Cons New/estab Mod 40 In 07 Advance Directives Directive Yes / No [...] on Encounter Offic Cons New/estab Mod 40 [facility], [address] [place] [address], [id number], tel:[phone] [facility] ([place]) No Information Qasim Benjamin. [address] [place] [address], [id number], [place]. tel:[phone] Referring Provider: Hakan Pablo, [address] [place] [address] 10, [place], [address]. tel:[phone] Family History Family Member Type Diagnosis Age At Onset Mother Problem (finding) diabetes melli tus in first degree relative Mother Problem (finding) glaucoma Payers Payer name Insurance type Covered constitution party ID Authoriza tion(s) Blue Adv FVM CI [id number] Social History Type Description Quantity Date Captured [...]
[2024-11-04] VITALS (13 sets, daily range): BP systolic 81–124; BP diastolic 47–72; PULSE 64–87; RESP 12–19; TEMP 36.6; O2SAT 94–97; BMI 31.5
--- NOTE | 2024-11-04 19:54 | ECG_ITS ---
APPROVED REPORT Exam: Resting ECG HR:89 bpm ECG Measurements Heart Rate [address] 158 P -30 QRSd 118 QRS -70 QT 364 T 165 QTc 411 Conclusion SINUS RHYTHM LEFT ANTERIOR FASCICULAR BLOCK [QRS AXIS <= -45, QR IN I, RS IN II] POSSIBLE ANTERIOR MYOCARDIAL INFARCTION , OF INDETERMINATE AGE [30 ms Q WAVE IN V3/V4, OR R < 0.2 mV IN V4] No STEMI Electronically signed by : JAYDEN MENDEZ, 11/04/2024 23:51:53
--- OUTSIDE RECORDS SUMMARY | 2024-11-04 19:58 | XMS_ITS | Encounter Summary ---
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 Phone Unavailable Primary Care Provider Unavailabl e Encounter Details Date Type Department Care Team (Late st Contact Info) Description 05/30/2019 Transcribed Document [facility] [place] [address] [place] [address] ProviderMelanie MD [facility] [place], [place] [id number] Social History Tobacco Use Types Packs/Day Years Used Date Smoking Tobacco: Never Assessed Sex and Gender Information Value Date Recorded Sex Assigned at Not on file Legal Sex Male 4:07 PM CDT Gender Identity Not on file Sexual Orientation Not on file documented as of this encounter Miscellaneous Notes * Cerner Conversion Note - Historical ProviderMD - 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
--- OUTSIDE RECORDS SUMMARY | 2024-11-04 19:58 | XMS_ITS | Data Portability ---
Author Organization [facility]OS[facility] Address [address] [facility] [address] [place] [address] Care Team Providers Care Cattyman Name Role Phone FADY WILLIS Primary Care Provider CLAUDY LUQUE Urologist KATARZYNA MULLER Infectious Disease [phone] [facility] Pain Management Assessment Encounter Date [...] Plan: Arrange wound VAC change through the [facility] wound care nurse. Complete course of Augmentin [...] Augmentin 875 mg-125 mg tablet 2019 020 [facility][id number], [address] [place], [id number], 1 11:00:44 Percocet 5 mg-325 mg tablet 2019 020 [facility] #[id number], [address] [place], [id number], 1 11:02:37 Augmentin 875 mg-125 mg tablet 2019 020 [facility] #[id number], [address] [place], [id number], 1 11:00:44 Percocet 5 mg-325 mg tablet 2019 020 [facility] #[id number], [address], [id number], 1 11:02:37 Patient TargetsNo targets recorded. Patient InstructionsNo instructions recorded. Reason for Referral None Reported. Results Created Date Observation Date Name Description Value Unit Range Abnormal Flag Note LastModifiedBy Organization Detail LastModifiedTime 05/16/2005/16/2019 urina lysis , dipst ick, auto Unknown Analyte Yellow Not Available [facility] [place], [address], 05/16/2019 07:54:25 05/16/2005/16/2019 urina lysis , dipst ick, auto Unknown Analyte Clear Not Available [facility] [address] [place], [address], 05/16/2019 07:54:25 05/16/20 19 05/16/2019 urina lysis , dipst ick, auto Unknown Analyte 1.015 Not Available [facility] [address] [place], [address], 05/16/2019 07:54:25 05/16/2005/16/2019 urina lysis , dipst ick, auto Unknown Analyte 1.003 - 1.035 Not Available [facility] [address] [place], [address], 05/16/2019 07:54:25 05/16/20 19 05/16/2019 urina lysis , dipst ick, auto Unknown Analyte 5.0 Not Available [facility] [address] [place], [address], 05/16/2019 07:54:25 05/16/2005/16/2019 urina lysis , dipst ick, auto Unknown Analyte 5.0 - 8.0 Not Available [facility] [address] [place] [address], [address], 05/16/2019 07:54:25 05/16/2005/16/2019 urina lysis , dipst ick, auto Unknown Analyte Negati ve Not Available [facility] [address] [place] [address], [address], 05/16/2019 07:54:25 05/16/2005/16/2019 urina lysis , dipst ick, auto Unknown Analyte Negati ve Not Available [facility] [address] [place] [address], [address], 05/16/2019 07:54:25 05/16/2005/16/2019 urina lysis , dipst ick, auto Unknown Analyte Negati ve Not Available [facility] [address] [place] [address], [address], 05/16/2019 07:54:25 05/16/2005/16/2019 urina lysis , dipst ick, auto Unknown Analyte Negati ve Not Available [facility] [address] [place], [address], 05/16/2019 07:54:25 05/16/2005/16/2019 urina lysis , dipst ick, auto Unknown Analyte Negtiv e Not Available [facility] [address] [place] [address], [address], 05/16/2019 07:54:25 05/16/2005/16/2019 urina lysis , dipst ick, auto Unknown Analyte Negati ve - Trace Not Available [facility] [address] [place] [address], [address], 05/16/2019 07:54:25 05/16/2005/16/2019 urina lysis , dipst ick, auto Unknown Analyte Normal Not Available [facility] [address] [place] [address], [address], 05/16/2019 07:54:25 05/16/2005/16/2019 urina lysis , dipst ick, auto Unknown Analyte Normal Not Available [facility] [address] [place] [address], [address], 05/16/2019 07:54:25 05/16/2005/16/2019 urina lysis , dipst ick, auto Unknown Analyte Negati ve Not Available [facility] [address] [place] [address], [address], 05/16/2019 07:54:25 05/16/2005/16/2019 urina lysis , dipst ick, auto Unknown Analyte Negati ve Not Available [facility] [address] [place] [address], [address], 05/16/2019 07:54:25 05/16/2005/16/2019 urina lysis , dipst ick, auto Unknown Analyte Normal Not Available [facility] [address] [place], [address], 05/16/2019 07:54:25 05/16/20 19 05/16/2019 urina lysis , dipst ick, auto Unknown Analyte Normal - 1mg/dl Not Available [facility] [address] [place] [address], [address], 05/16/2019 07:54:25 05/16/2005/16/2019 urina lysis , dipst ick, auto Unknown Analyte Negati ve Not Available [facility] [address] [place] [address], [address], 05/16/2019 07:54:25 05/16/2005/16/2019 urina lysis , dipst ick, auto Unknown Analyte Negati ve Not Available [facility] [address] [place] [address], [address], 05/16/2019 07:54:25 05/16/2005/16/2019 urina lysis , dipst ick, auto Unknown Analyte Negati ve Not Available [facility] [address] [place] [address], [address], 05/16/2019 07:54:25 05/16/20 19 05/16/2019 urina lysis , dipst ick, auto Unknown Analyte Negati ve Not Available [facility] [address] [place] [address], [address], 05/16/2019 07:54:25 05/16/20 19 05/16/2019 urina lysis , dipst ick, auto Unknown Analyte Clean Catch Not Available [facility] [address] [place], [address], 05/16/2019 07:54:25 05/16/20 19 05/16/2019 urina lysis , dipst ick, auto Unknown Analyte Automa carlos Not Available [facility] [address] [place] [address], [address], 05/16/2019 07:54:25 05/24/1905/24/2019 urina lysis , dipst ick, auto Unknown Analyte Yellow Not Available [facility] [address] [place] [address], [address], 05/24/2019 10:02:15 05/24/19 20 05/24/2019 urina lysis , dipst ick, auto Unknown Analyte Clear Not Available [facility] [address] [place] [address], [address], 05/24/2019 10:02:15 05/24/1905/24/2019 urina lysis , dipst ick, auto Unknown Analyte 1.010 Not Available [facility] [address] [place] [address], [address], 05/24/2019 10:02:15 05/24/1905/24/2019 urina lysis , dipst ick, auto Unknown Analyte 1.003 - 1.035 Not Available [address], [address], 05/24/2019 10:02:15 05/24/19 20 05/24/2019 urina lysis , dipst ick, auto Unknown Analyte 5.0 Not Available [facility] [address], [address], 05/24/2019 10:02:15 05/24/1905/24/2019 urina lysis , dipst ick, auto Unknown Analyte 5.0 - 8.0 Not Available [facility] [address], [address], 05/24/2019 10:02:15 05/24/1905/24/2019 urina lysis , dipst ick, auto Unknown Analyte Negati ve Not Available [facility] [address], [address], 05/24/2019 10:02:15 05/24/19 20 05/24/2019 urina lysis , dipst ick, auto Unknown Analyte Negati ve Not Available [facility] [address] [place] [address], [address], 05/24/2019 10:02:15 05/24/19 20 05/24/2019 urina lysis , dipst ick, auto Unknown Analyte Negati ve Not Available [facility] [address] [place] [address], [address], 05/24/2019 10:02:15 05/24/19 20 05/24/2019 urina lysis , dipst ick, auto Unknown Analyte Negtiv e Not Available [facility] [address], [address], 05/24/2019 10:02:15 05/24/19 20 05/24/2019 urina lysis , dipst ick, auto Unknown Analyte Negati ve - Trace Not Available [facility] [address], [address], 05/24/2019 10:02:15 05/24/19 20 05/24/2019 urina lysis , dipst ick, auto Unknown Analyte Normal Not Available [facility] [address] [place] [address], [address], 05/24/2019 10:02:15 05/24/19 20 05/24/2019 urina lysis , dipst ick, auto Unknown Analyte Normal Not Available [facility] [address] [place] [address], [address], 05/24/2019 10:02:15 05/24/19 20 05/24/2019 urina lysis , dipst ick, auto Unknown Analyte Negati ve Not Available [facility] [address], [address], 05/24/2019 10:02:15 05/24/19 20 05/24/2019 urina lysis , dipst ick, auto Unknown Analyte Negati ve Not Available [facility] [address] [place] [address], [address], 05/24/2019 10:02:15 05/24/19 20 05/24/2019 urina lysis , dipst ick, auto Unknown Analyte Normal Not Available [facility] [address] [place] [address], [address], 05/24/2019 10:02:15 05/24/19 20 05/24/2019 urina lysis , dipst ick, auto Unknown Analyte Normal - 1mg/dl Not Available [facility] [address], [address], 05/24/2019 10:02:15 05/24/19 20 05/24/2019 urina lysis , dipst ick, auto Unknown Analyte Negati ve Not Available [facility] [address], [address], 05/24/2019 10:02:15 05/24/19 20 05/24/2019 urina lysis , dipst ick, auto Unknown Analyte Negati ve Not Available [facility] [address], [address], 05/24/2019 10:02:15 05/24/19 20 05/24/2019 urina lysis , dipst ick, auto Unknown Analyte Negati ve Not Available [facility] [address], [address], 05/24/2019 10:02:15 05/24/19 20 05/24/2019 urina lysis , dipst ick, auto Unknown Analyte Negati ve Not Available [facility] [address], [address], 05/24/2019 10:02:15 05/24/19 20 05/24/2019 urina lysis , dipst ick, auto Unknown Analyte Clean Catch Not Available [facility] [address] [place] [address], [address], 05/24/2019 10:02:15 05/24/19 20 05/24/2019 urina lysis , dipst ick, auto Unknown Analyte Visual Not Available [facility] [address] [place] [address], [address], 05/24/2019 10:02:15 06/06/19 20 06/06/2019 urina lysis , dipst ick, auto Unknown Analyte Yellow Not Available [facility] [address], [address], 06/06/2019 07:36:23 06/06/1906/06/2019 urina lysis , dipst ick, auto Unknown Analyte Clear Not Available [address], [address], 06/06/2019 07:36:23 06/06/19 20 06/06/2019 urina lysis , dipst ick, auto Unknown Analyte 1.005 Not Available [address], [address], 06/06/2019 07:36:23 06/06/19 20 06/06/2019 urina lysis , dipst ick, auto Unknown Analyte 6.0 Not Available [facility] [address], [address], 06/06/2019 07:36:23 06/06/19 20 06/06/2019 urina lysis , dipst ick, auto Unknown Analyte Negati ve Not Available [address], [address], 06/06/2019 07:36:23 06/06/19 20 06/06/2019 urina lysis , dipst ick, auto Unknown Analyte Negati ve Not Available [address], [address], 06/06/2019 07:36:23 06/06/19 20 06/06/2019 urina lysis , dipst ick, auto Unknown Analyte Negtiv e Not Available [facility] [address] [place], [address], 06/06/2019 07:36:23 06/06/1906/06/2019 urina lysis , dipst ick, auto Unknown Analyte 250 mg/dl Not Available [facility] [address] [place], [address], 06/06/2019 07:36:23 06/06/1906/06/2019 urina lysis , dipst ick, auto Unknown Analyte Negati ve Not Available [facility] [address] [place] [address], [address], 06/06/2019 07:36:23 06/06/19 20 06/06/2019 urina lysis , dipst ick, auto Unknown Analyte Normal Not Available [facility] [address] [place], [address], 06/06/2019 07:36:23 06/06/1906/06/2019 urina lysis , dipst ick, auto Unknown Analyte Negati ve Not Available [facility] [address] [place] [address], [address], 06/06/2019 07:36:23 06/06/1906/06/2019 urina lysis , dipst ick, auto Unknown Analyte Negati ve Not Available [facility] [address] [place] [address], [address], 06/06/2019 07:36:23 06/06/1906/06/2019 urina lysis , dipst ick, auto Unknown Analyte Clean Catch Not Available [facility] [address] [place] [address], [address], 06/06/2019 07:36:23 06/06/19 20 06/06/2019 urina lysis , dipst ick, auto Unknown Analyte Automa carlos Not Available [facility] [address], [address], 06/06/2019 07:36:23 06/29/19 20 06/29/2019 urina lysis , dipst ick, auto Unknown Analyte Yellow Not Available [facility] [address], [address], 06/29/2019 10:49:43 06/29/19 20 06/29/2019 urina lysis , dipst ick, auto Unknown Analyte Clear Not Available [facility] [address], [address], 06/29/2019 10:49:43 06/29/19 20 06/29/2019 urina lysis , dipst ick, auto Unknown Analyte 1.015 Not Available [facility] [address], [address], 06/29/2019 10:49:43 06/29/19 20 06/29/2019 urina lysis , dipst ick, auto Unknown Analyte 1.003 - 1.035 Not Available [address], [address], 06/29/2019 10:49:43 06/29/19 20 06/29/2019 urina lysis , dipst ick, auto Unknown Analyte 5.0 Not Available [facility] [address], [address], 06/29/2019 10:49:43 06/29/19 20 06/29/2019 urina lysis , dipst ick, auto Unknown Analyte 5.0 - 8.0 Not Available [address], [address], 06/29/2019 10:49:43 06/29/19 20 06/29/2019 urina lysis , dipst ick, auto Unknown Analyte Negati ve Not Available [facility] [address], [address], 06/29/2019 10:49:43 06/29/19 20 06/29/2019 urina lysis , dipst ick, auto Unknown Analyte Negati ve Not Available [facility] [address], [address], 06/29/2019 10:49:43 06/29/19 20 06/29/2019 urina lysis , dipst ick, auto Unknown Analyte Negati ve Not Available [facility] [address], [address], 06/29/2019 10:49:43 06/29/19 20 06/29/2019 urina lysis , dipst ick, auto Unknown Analyte Negati ve Not Available [facility] [address], [address], 06/29/2019 10:49:43 06/29/19 20 06/29/2019 urina lysis , dipst ick, auto Unknown Analyte Negtiv e Not Available [address], [address], 06/29/2019 10:49:43 06/29/19 20 06/29/2019 urina lysis , dipst ick, auto Unknown Analyte Negati ve - Trace Not Available [facility] [address], [address], 06/29/2019 10:49:43 06/29/19 20 06/29/2019 urina lysis , dipst ick, auto Unknown Analyte Normal Not Available [facility] [address], [address], 06/29/2019 10:49:43 06/29/19 20 06/29/2019 urina lysis , dipst ick, auto Unknown Analyte Normal Not Available [facility] [address] [place], [address], 06/29/2019 10:49:43 06/29/19 20 06/29/2019 urina lysis , dipst ick, auto Unknown Analyte Negati ve Not Available [facility] [address] [place] [address], [address], 06/29/2019 10:49:43 06/29/19 20 06/29/2019 urina lysis , dipst ick, auto Unknown Analyte Negati ve Not Available [facility] [address], [address], 06/29/2019 10:49:43 06/29/19 20 06/29/2019 urina lysis , dipst ick, auto Unknown Analyte Normal Not Available [facility] [address], [address], 06/29/2019 10:49:43 06/29/19 20 06/29/2019 urina lysis , dipst ick, auto Unknown Analyte Normal - 1mg/dl Not Available [facility] [address], [address], 06/29/2019 10:49:43 06/29/19 20 06/29/2019 urina lysis , dipst ick, auto Unknown Analyte Negati ve Not Available [facility] [address], [address], 06/29/2019 10:49:43 06/29/19 20 06/29/2019 urina lysis , dipst ick, auto Unknown Analyte Negati ve Not Available [facility] [address], [address], 06/29/2019 10:49:43 06/29/19 20 06/29/2019 urina lysis , dipst ick, auto Unknown Analyte Negati ve Not Available [facility] [address] [place], [address], 06/29/2019 10:49:43 06/29/19 20 06/29/2019 urina lysis , dipst ick, auto Unknown Analyte Negati ve Not Available [facility] [address] [place], [address], 06/29/2019 10:49:43 06/29/19 20 06/29/2019 urina lysis , dipst ick, auto Unknown Analyte Clean Catch Not Available [facility] [address] [place], [address], 06/29/2019 10:49:43 06/29/19 20 06/29/2019 urina lysis , dipst ick, auto Unknown Analyte Automa carlos Not Available [facility] [address] [place], [address], 06/29/2019 10:49:43 Result Notes None recorded. Problems Name Problem SNOMED Code Status Onset Date Resolution Date Notes Provider Name and Address Organization Details Recorded Time Mixed conductiv e AND sensorine ural hearing loss 53812476 Active 2015 From Automated Load;Prov ider: Dorian Hurd III tatus: Active Not Available [facility] 6 09:39:57 Otitis externa 7833194 Active 2015 Provider: Dorian Hurd III tatus: Active Not Available [facility] 6 09:39:57 Otitis externa of right ear 16910028577 10812 Active 2015 From Automated Load;Prov ider: Dorian Hurd III tatus: Active Not Available [facility] 6 09:39:57 Otorrhea 18023489 Active 2015 From Automated Load;Prov ider: Dorian Hurd III tatus: Active Not Available [facility] 6 09:39:57 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 Procedures Surgical History Date Name Laterality Status Provider Name and Address Organization Details Recorded Time 06/20/19 20 repair of scrotum completed CLAUDY LUQUE MD [address] [place] [address], [address], [facility] 06/20/2019 16:56:31 05/29/19 20 Scrotal surgery completed CLAUDY LUQUE MD [address] [place] [address], [address], [facility] 06/20/2019 16:57:39 Heart Surgery completed Fani Huffman [facility] 02/08/2019 16:35:08 Hernia Repair completed CLAUDY LUQUE MD [address] [place] [address], [address], [facility] 04/04/2019 14:53:49 Orchiectomy completed CLAUDY LUQUE MD [address] [place] [address], [address], [facility] 04/04/2019 14:54:02 Hydrocele Repair completed CLAUDY LUQUE MD [address] [place] [address], [address], [facility] 04/04/2019 14:54:16 Mastoidectomy completed Janet Stoll [facility] 12/14/2020 11:10:11 Imaging Results None recorded. Procedure Notes None recorded. Medical Equipment None Reported. Allergies Allergen ID Allergen Name Allergen Category Reaction Reaction Severity Criticality Documentation Date Start Date Code Code System Note Provider Name and Address Organization Details Recorded Time 608428 acetamino phen / oxycodone medicatio n nausea Not available Not available 02/08/2019 13464 3 RxNorm He can take 5 mg dose CLAUDY LUQUE MD [address] [place] [address] [place], [address], [facility] 9 15:06:12 175982 Bactrim medicatio n dizziness respirato ry distress Not available Not available Not available 02/11/2019 81956 9 RxNorm CLAUDY LUQUE MD [facility] [place], [address], [facility] 9 07:45:25 Medications Name Sig [...] ne propionat e 50 mcg/actua tion nasal spray,[facility] 12/14 completed Not Available Not Available Not Available metformin ER 500 mg tablet,ex tended release 24 hr 12/14 completed Not Available Not Available Not Available ezetimibe 10 mg tablet TAKE 1 TABLET BY MOUTH ONCE DAILY 12/14 completed Not Available Not Available Not Available Ciprodex 0.3 %-0.1 % ear drops,[facility] 02/08 completed Not Available Not [...] YOU DIDN T RECEIVE INSTRUCT IONS CALL [phone] 12/14 completed Not Available Not Available Not [...] Updated DateTime 05/24/2019 177.8 cm 33.9 kg/m2 841996.8 g 86 /min [facility] 05/24/2019 10:02:36 Date Recorded Body height Body mass index (BMI) Body weight Provider Name and Address Organization Details Last Updated DateTime 06/06/2019 177.8 cm 33.9 kg/m2 931691.8 g Sarah Mora [facility] 06/06/2019 07:36:09 Date Recorded Body height Body mass index (BMI) Body weight Heart rate Provider Name and Address Organization Details Last Updated DateTime 06/13/2019 177.8 cm 33.9 kg/m2 857196.8 g 86 /min [facility] 06/13/2019 07:50:01 Date Recorded Body height Body mass index (BMI) Body weight Provider Name and Address Organization Details Last Updated DateTime 06/29/2019 177.8 cm 33.9 kg/m2 952033.8 g [facility] 06/29/2019 10:49:27 Date Recorded Body weight Body temperature Body mass index (BMI) Body height Heart rate Systolic blood pressure Diastolic blood pressure Provider Name and Address Organization Details Last Updated DateTime 1 15140.3 2 g 97.7 [degF] 31.6 kg/m2 177.8 cm 75 /min 131 mm[Hg] 69 mm[Hg] Janet Stoll [facility] 1 11:09:26 Social History Question Answer Notes LastModified by Organizat ion Details LastModified Time Tobacco Smoking Status Current Every Day Smoker Janet Hewitts [facility] 12/14/2020 11:04:32 Marital Status Informatio n [...] SNOMED-CT Code Diagnosis ICD10 Code Diagnosis Note [id number] CLAUDY LUQUE MD [facility]OLOGY [facility] [address] [place] [address] 02/08/2019 15:22:29 02/09/2019 07:11:35 Epididymitis 96080163 N45.1 Hydrocele 24793137 N43.3 [id number] CLAUDY LUQUE MD [facility]OLOGY [facility] [address] [place] [address] 03/01/2019 07:35:36 03/01/2019 08:32:45 Epididymitis 32704329 N45.1 Hydrocele 87171157 N43.3 [id number] CLAUDY LUQUE MD SURGERY SCHEDULE [address] [place] [address] 1 04/04/2019 11:38:23 04/04/2019 11:39:05 Hydrocele of testis 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 N43.3 [id number] CLAUDY LUQUE MD [facility]OLOGY [facility] [address] [place] [address] 1 04/22/2019 07:42:36 04/22/2019 08:20:59 Epididymitis 60363741 N45.1 Hydrocele 28005401 N43.3 Hematoma of scrotum 8996 6002 M79.81 [id number] CLAUDY LUQUE MD [facility]OLOGY [facility] [address] [place] [address] 1 05/16/2019 07:33:42 05/16/2019 08:55:46 Hydrocele 10632464 N43.3 Hematoma of scrotum 8996 6002 M79.81 Orchitis a nd epididymitis 073005849 N45.3 [id number] CLAUDY LUQUE MD [facility]OLOGY [facility] [address] [place] [address] 1 05/24/2019 09:09:43 05/24/2019 10:36:10 Orchitis and epididymitis 332448865 N45.3 Hydrocele 21400087 N43.3 Hematoma of scrotum 8996 6002 M79.81 [id number] CLAUDY LUQUE MD [facility]OLOGY [facility] [address] [place] [address] 1 06/06/2019 07:34:58 06/06/2019 08:50:46 Orchitis and epididymitis 952604118 N45.3 Abscess of scrotum 23927 006 N49.2 [id number] CLAUDY LUQUE MD [facility]OLOGY [facility] [address] [place] [address] 1 06/13/2019 07:45:46 06/13/2019 08:18:58 Orchitis and epididymitis 820203449 N45.3 Abscess of scrotum 81768 006 N49.2 [id number] CLAUDY LUQUE MD SURGERY SCHEDULE [address] [place] [address] 1 06/20/2019 13:07:55 06/20/2019 13:09:42 Disorder of scrotum 68090268 N50.9 Orchitis a nd epididymitis 270356692 N45.3 [id number] CLAUDY LUQUE MD UROLOGY [address] [facility] [address] [place] [address] 06/29/2019 10:43:58 06/29/2019 12:20:35 Orchitis and epididymitis 876388670 N45.3 Abscess of scrotum 46526 006 N49.2 Health Concerns Section Related Observation LastModified by Organization Detai ls LastModified Time None Recorded Concern Status LastModified by Organization Details LastModified Time None Recorded Advance Directives Directive None Recorded Payers Insurance Date Sequence Insurance Name Policy Number Policy Burkett Covered Member ID Burkett Member ID Guarantor Name 12/11/2020 1 MEDICARE-[employer] (MEDICARE) Cristobal Vargas [id number] Cristobal Vargas 07/28/2018 1 *SELF PAY* [...] with Augmentin for epididymoorchitis. 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 He denies family history of prostate or [...] trouble. He denies fever. CLAUDY LUQUE MD [address] [place] [address] [place], [address], [facility] 05/24/2019 10:21:51 06/06/2019 text/html Diagnoses: [...] Augmentin for epididymo-orchitis. He was admitted to [facility] and underwent left scrotal exploration and debridement 05/29/2019. He subsequently had placement of a wound VAC. 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 He denies family history of prostate or [...] He denies voiding trouble. CLAUDY LUQUE MD [address] [place] [address], [phone], [facility] 06/06/2019 08:34:31 06/13/2019 text/html Diagnoses: [...] urgency, dysuria, or decreased flow. He saw nh and was prescribed Bactrim DS 02/08/2019, he had dizziness and shortness of breath after a few doses and was switched to Cipro 14 days. He underwent left hydrocelectomy 04/04/2019. This was complicated by scrotal hematoma and which opened spontaneously. They started wound packing 04/22/2019 and he was treated with Augmentin for epididymo-orchitis. He was admitted to [facility] and underwent left scrotal exploration and debridement 05/29/2019. He subsequently had placement of a wound VAC. 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 He denies family history of prostate or [...] He denies voiding trouble. CLAUDY LUQUE MD [address] [place] [address], [phone], [facility] 06/13/2019 08:15:57 06/29/2019 text/html Diagnoses: [...] Augmentin for epididymo-orchitis. He was admitted to [facility] and underwent left scrotal exploration and debridement 05/29/2019. He subsequently had placement of a wound VAC. He underwent closure of the scrotal wound 06/20/2019. 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 HPI: The patient is here with his Angelic for follow-up after closure of the scrotal wound last week. He has been taking Augmentin. He is on chronic narcotics. He went to the emergency room last night for scrotal pain. He denies voiding trouble. CLAUDY LUQUE MD [facility] [place], [phone], [facility] 06/29/2019 11:32:37
--- OUTSIDE RECORDS SUMMARY | 2024-11-04 19:58 | XMS_ITS | Encounter Summary ---
Author Organization [email or web address] Address [address] [place] [address] Care Team Providers Care Hairspring Staker Name Role Phone Unavailable Primary Care Provider Unavailabl e Encounter Details Date Type Department Care Team (Late st Contact Info) Description 05/31/2019 Transcribed Document [facility] [place] Family Medicine [address] [place] [address] ProviderMelanie MD [address] [place] [place], [place] [id number] Social History Tobacco Use Types Packs/Day Years Used Date Smoking Tobacco: Never Assessed Sex and Gender Information Value Date Recorded Sex Assigned at Not on file Legal Sex Male 4:07 PM CDT Gender Identity Not on file Sexual Orientation Not on file documented as of this encounter Miscellaneous Notes * Cerner Conversion Note - Historical ProviderMD - 05/31/2019 2:00 AM COMPLAINT ANALYST Tassel Maker Details Entered On: 05/31/2019 8:04 EST Performed [...] 05/31/2019 8:04 EST Electronically signed by Angel [facility] Conversion Referral And Information Aide Cerner at 09/05/2022 2:06 PM CDT documented in this encounter Plan of Treatment Not on file documented as of this encounter Visit Diagnoses Not on filedocumented in this encounter
--- OUTSIDE RECORDS SUMMARY | 2024-11-04 19:58 | XMS_ITS | Encounter Summary ---
Author Organization [employer] Address [address] [place] [address] Care Team Providers Care Fuselage Framer Name Role Phone Unavailable Primary Care Provider Unavailabl e Encounter Details Date Type Department Care Team (Late st Contact Info) Description 05/29/2019 Transcribed Document [facility] Family Medicine [address] [place] [address] ProviderMelanie MD [address] [place] [address] Social History Tobacco Use Types Packs/Day Years Used Date Smoking Tobacco: Never Assessed Sex and Gender Information Value Date Recorded Sex Assigned at Not on file Legal Sex Male 4:07 PM CDT Gender Identity Not on file Sexual Orientation Not on file documented as of this encounter Miscellaneous Notes * Cerner Conversion Note - Melanie ProviderMD - 05/29/2019 1:38 PM MINING SUPPORT WORKER DATE OF PROCEDURE: 05/29/2019 SURGEON: Claudy Pro [...] inpatient stay for antibiotics and wound care. /[id number] DICTATED BY: Nicolasa Arguello MD for Claudy Pro MD MD LOUIS Martinez/AQ / LOUIS / ANGELAL /[id number] Electronically signed by [employer], [facility] Conversion Living Skills Advisor Cerner at 09/05/2022 2:31 PM CDT documented in this encounter Plan of Treatment Not on file documented as of this encounter Visit Diagnoses Not on filedocumented in this encounter
--- OUTSIDE RECORDS SUMMARY | 2024-11-04 19:58 | XMS_ITS | Encounter Summary ---
Author Organization [employer] Address [address] [place] [address] Care Team Providers Care Craft Superintendent Name Role Phone Unavailable Primary Care Provider Unavailabl e Encounter Details Date Type Department Care Team (Late st Contact Info) Description 04/08/2019 Transcribed Document [facility] [place] [address] [place] [address] ProviderMelanie MD [address] [place] [address] Social History Tobacco Use Types Packs/Day Years Used Date Smoking Tobacco: Never Assessed Sex and Gender Information Value Date Recorded Sex Assigned at Not on file Legal Sex Male 4:07 PM CDT Gender Identity Not on file Sexual Orientation Not on file documented as of this encounter Miscellaneous Notes * Cerner Conversion Note - Historical ProviderMD - 04/08/2019 10:42 AM SMALL BUSINESS DIRECTOR [place] Suicide Severity Rating Scale (C-SSRS) Entered On: 04/08/2019 11:15 EST Performed On: 04/08/2019 10:45 EST by Renata Dia RN [place] Suicide Severity Rating Scale (C-SSRS) CSSRS Past [...]
--- OUTSIDE RECORDS SUMMARY | 2024-11-04 19:58 | XMS_ITS | Encounter Summary ---
Author Organization [employer] i[employer] Address [address] [place] [address] Care Team Providers Care Hull Builder Name Role Phone Unavailable Primary Care Provider Unavailabl e Encounter Details Date Type Department Care Team (Late st Contact Info) Description 05/31/2019 Transcribed Document [facility] [place] Family Medicine [facility] [place] [address] ProviderMelanie MD [address] [place] [id number] Social History Tobacco Use Types Packs/Day Years Used Date Smoking Tobacco: Never Assessed Sex and Gender Information Value Date Recorded Sex Assigned at Not on file Legal Sex Male 4:07 PM CDT Gender Identity Not on file Sexual Orientation Not on file documented as of this encounter Miscellaneous Notes * Cerner Conversion Note - Melanie ProviderMD - 05/31/2019 3:07 PM PRESIDENT AND CHIEF EXECUTIVE OFFICER WOCN Inpatient Documentation Entered On: 05/31/2019 15:13 [...] NPWT to scrotum s/p exploration and debridement. JOB INTERVIEWER used by jag. Soaked Gauze with saline [...] Ulcer WOCN Wound Pressure Ulcer Documentation : [id number] Abnormality: Scrotum Posterior on 05/31/2019 15:05 by Jenise Ortiz Rn-Enterostomal I/W/A Present on Admission to Hospital: Yes I/W/A Type: Incision, open I/W/A Dressing Status: Intact I/W/A Dressing Activity: Assessed, Dressing changed I/W/A Wound Date of Dressing Change: :0.116443:0:0 I/W/A Wound Bed Description: Full-thickness, Undermining I/W/A [...] Initial set-up application NPWT Inpatient Start Date: [id number]:[id number]:0 NPWT Device Used: Renasys Type of Foam/Gauze [...] 05/31/2019 15:07 EST Electronically signed by Angel, [facility] Conversion Elementary Principal Cerner at 09/05/2022 2:03 PM CDT documented in this encounter Plan of Treatment Not on file documented as of this encounter Visit Diagnoses Not on filedocumented in this encounter
--- OUTSIDE RECORDS SUMMARY | 2024-11-04 19:58 | XMS_ITS | Encounter Summary ---
Author Organization [employer] Address [address] [place] [address] Care Team Providers Care Home Lighting Adviser Name Role Phone Unavailable Primary Care Provider Unavailabl e Encounter Details Date Type Department Care Team (Late st Contact Info) Description 05/28/2019 Transcribed Document [facility] [facility] [place] [address] ProviderMelanie MD [address] [place] [address] Social History Tobacco Use Types Packs/Day Years Used Date Smoking Tobacco: Never Assessed Sex and Gender Information Value Date Recorded Sex Assigned at Not on file Legal Sex Male 4:07 PM CDT Gender Identity Not on file Sexual Orientation Not on file documented as of this encounter Miscellaneous Notes * Cerner Conversion Note - Historical ProviderMD - 05/28/2019 8:25 PM TRUCK TECHNICIAN Patient: TERRI MOREL Age: 59 years Sex: [...] Patient reports he has been taking his [place] Percocet and morphine at home with no [...] in chart. Surgical history: Right total orchiectomy ([id number]). Repair of right inguinal hernia ([id number]). Hydrocele ([id number]). CABG (Coronary artery bypass grafting) planned ([id number])., Reviewed as documented in chart. Family history: [...] EST Height Source Stated Height Entry Format [place] Height/Length, POLISH (ft) 5 ft Height/Length POLISH 4 Inch CLINICALHEIGHT 162.56 cm [place] Body Weight 58.3 kg Weight Source, ED Critical estimated dosing weight Weight Entry Format [place] Weight Portuguese lb 225 lb CLINICALWEIGHT 102.27 kg Body [...] ED Adult Triage: ED Clinical Reconciliation: ED gas station attendant: Lactic Acid Level with Reflex if Indicated: [...] % 35.3 % Lymph # 2.93 x10(3)/uL Kleberg % 6.3 % [place]berg # 0.52 K/uL Eos % 2.3 % Eos # 0.19 x10(3)/uL Baso % 0.6 % Baso # 0.05 x10(3)/uL Slide Review No IG# 0.04 x10(3)/uL IG% 0.50 % Urine Type. U CleanCatch Urine Color Yellow Urine Appearance Clear Urine Specific [place] >1.030 HI Urine pH Dipstick 6.0 Urine [...]
--- OUTSIDE RECORDS SUMMARY | 2024-11-04 19:58 | XMS_ITS | Encounter Summary ---
Author Organization [employer] Address [address] [place] [address] Care Team Providers Care Scalp Specialist Name Role Phone Unavailable Primary Care Provider Unavailabl e Encounter Details Date Type Department Care Team (Late st Contact Info) Description 05/31/2019 Transcribed Document [facility] [place] [address] [place] [address] ProviderMelanie MD [address] [place] [id number] Social History Tobacco Use Types Packs/Day Years Used Date Smoking Tobacco: Never Assessed Sex and Gender Information Value Date Recorded Sex Assigned at Not on file Legal Sex Male 4:07 PM CDT Gender Identity Not on file Sexual Orientation Not on file documented as of this encounter Miscellaneous Notes * Cerner Conversion Note - Historical ProviderMD - 05/31/2019 2:56 PM DEVELOPMENT AND PLANNING ENGINEER On Going Discharge Planning Entered On: 05/31/2019 14:57 EST Performed On: 05/31/2019 14:56 EST by LYNDSEY GAY RN-Car Ferry CaptainJunk Dealer Progress Note Discharge Arrangements : Patient Post-Acute Information Patient Name: TERRI VARGAS Gender: Male : 62 Age: 59 Years No Post-Acute Placement(s) Listed No Post-Acute Service(s) Listed No [place] Referral(s) Listed Barriers to Discharge Identified : Clinical Condition of Patient Barriers to Discharge Unresolved : Clinical Condition of Patient Did you Attend Multidisciplinary Rounds? : Yes LYNDSEY GAY RN-Car Ferry Captain - 05/31/2019 14:56 EST Narrative Progress Note Narrative Progress Note : Met with Pt on MDR rounds. Pain continues to be an issue, Dilaudid DATA ANALYSIS ASSISTANT in use. Plans are to place a wound vac sometime today. CM will follow. LYNDSEY GAY, ANAT-Car Ferry Captain - 05/31/2019 14:56 EST Electronically signed by Angel [facility] Conversion Spinner Frame Cerner at 09/05/2022 2:06 PM CDT documented in this encounter Plan of Treatment Not on file documented as of this encounter Visit Diagnoses Not on filedocumented in this encounter
--- OUTSIDE RECORDS SUMMARY | 2024-11-04 19:58 | XMS_ITS | Encounter Summary ---
Author Organization [employer] Address [address] [place] [address] Care Team Providers Care Junior Sales Assistant Name Role Phone Unavailable Primary Care Provider Unavailabl e Encounter Details Date Type Department Care Team (Late st Contact Info) Description 05/29/[address] [facility] [place] Family Medicine [address] [place] [address] ProviderMelanie MD [address] [place] [address] Social History Tobacco Use Types Packs/Day Years Used Date Smoking Tobacco: Never Assessed Sex and Gender Information Value Date Recorded Sex Assigned at Not on file Legal Sex Male 4:07 PM CDT Gender Identity Not on file Sexual Orientation Not on file documented as of this encounter Miscellaneous Notes * Cerner Conversion Note - Melanie ProviderMD - 05/29/2019 8:05 AM SCALE ATTENDANT Patient: TERRI MOREL Age: 59 years [...] influenza virus vaccine, inactivated: 0.5 mL, IntraMuscular, [id number] insulin regular sliding scale: Scale D, SubCutaneous, Q6H lactobacillus acidophilus: 1 Cap, Oral, BID lisinopril: 10 mg, Oral, Daily vancomycin + Sodium Chloride 0.9% intravenous solution 250 mL: 1,500 mg, 250 mL/Hr, IV Piggyback, [id number] Documented Medications Documented Aspir 81: mg, Oral, [...] Daily influenza vaccine, quadrivalent 0.5 mL, IntraMuscular, [id number] insulin regular 1 unit/0.01 mL inj 3mL Scale D, SubCutaneous, Q6H lactobacillus acidophilus cap 1 Cap, Oral, BID lisinopril 10 mg tab 10 mg 1 Tab, Oral, Daily NIFEdipine ER 90 mg tab 90 mg 1 Tab, Oral, Daily piperacillin-tazobactam + NaCl 0.9% 100 mL 3.375 Gram, IV Piggyback, Q6HInt vancomycin + NaCl 0.9% 250 mL 1,500 mg, IV Piggyback, [id number] Continuous: (1) NaCl 0.45% 1,000 mL 1,000 [...] History of obstructive sleep apnea / IMO [id number] / Confirmed, Active Problems (1) History of [...] tenderness, No swelling, No deformity. Integumentary: Warm, Sammy Martinez, Moist, No rash, scrotal ulcer in the [...] 41.9 \, Radiology Results (Last 48 hours) [id number] -- 05/28/2019 20:28 CR Chest 1 Vw [...]
--- OUTSIDE RECORDS SUMMARY | 2024-11-04 19:58 | XMS_ITS | Encounter Summary ---
Author Organization [employer] Address [address] [place] [address] Care Team Providers Care Surveillance Supervisor Name Role Phone Unavailable Primary Care Provider Unavailabl e Encounter Details Date Type Department Care Team (Late st Contact Info) Description 06/16/2019 Transcribed Document [facility] [place] [facility] [address] ProviderMelanie MD [address] [place] [address]361 Social History Tobacco Use Types Packs/Day Years Used Date Smoking Tobacco: Never Assessed Sex and Gender Information Value Date Recorded Sex Assigned at Not on file Legal Sex Male 4:07 PM CDT Gender Identity Not on file Sexual Orientation Not on file documented as of this encounter Miscellaneous Notes * Cerner Conversion Note - Historical ProviderMD - 06/16/2019 10:36 AM GRINDER AND HONER OPERATOR AUTOMATIC DATE OF CONSULTATION: 06/16/2019 HISTORY: This is [...] seen his urologist, Dr. Arguello, at [facility]. The plan now is to do [...] surgical wound covers such as [employer] NPWT. /[id number] MD MELI Terry III/LESLEY / MELI / JOVANY /[id number] Electronically signed by French Ortiz Conversion Computer Applications Engineer Cerner at 09/05/2022 2:14 PM CDT documented in this encounter Plan of Treatment Not on file documented as of this encounter Visit Diagnoses Not on filedocumented in this encounter
--- OUTSIDE RECORDS SUMMARY | 2024-11-04 19:58 | XMS_ITS | Encounter Summary ---
Author Organization [employer] iatives Address [address] [place] [address] Care Team Providers Care Squash Centre Manager Name Role Phone Unavailable Primary Care Provider Unavailabl e Encounter Details Date Type Department Care Team (Late st Contact Info) Description 05/28/2019 Transcribed Document [facility] [place] Family Medicine [address] [place] [address] ProviderMelanie MD [facility] [place] [address] Social History Tobacco Use Types Packs/Day Years Used Date Smoking Tobacco: Never Assessed Sex and Gender Information Value Date Recorded Sex Assigned at Not on file Legal Sex Male 4:07 PM CDT Gender Identity Not on file Sexual Orientation Not on file documented as of this encounter Miscellaneous Notes * Cerner Conversion Note - Melanie ProviderMD - 05/28/2019 9:02 PM PAINT TINTER Patient: TERRI MOREL Age: 59 years Sex: [...] Pharmacy consulted to dose vancomycin for abscess. WCS=468 kg BMI=38.7 Consulting MD: Harshad Martino ID: [...] for this consultation. Adri Fisher, PharmD PGY-1 Digitizer [phone] documented in this encounter Plan of Treatment Not on file documented as of this encounter Visit Diagnoses Not on filedocumented in this encounter
--- OUTSIDE RECORDS SUMMARY | 2024-11-04 19:58 | XMS_ITS | Encounter Summary ---
Author Organization [employer] Address [address] [place] [address] Care Team Providers Care Punch Operator Name Role Phone Unavailable Primary Care Provider Unavailabl e Encounter Details Date Type Department Care Team (Late st Contact Info) Description 05/29/2019 Transcribed Document [facility] [place] Family Medicine [address] [place] [address] ProviderMelanie [place] [address] Social History Tobacco Use Types Packs/Day Years Used Date Smoking Tobacco: Never Assessed Sex and Gender Information Value Date Recorded Sex Assigned at Not on file Legal Sex Male 4:07 PM CDT Gender Identity Not on file Sexual Orientation Not on file documented as of this encounter Miscellaneous Notes * Cerner Conversion Note - Melanie ProviderMD - 05/29/2019 4:43 AM TRACK OILER Education-Diabetes Topics Entered On: 05/29/2019 6:31 EST [...]
--- OUTSIDE RECORDS SUMMARY | 2024-11-04 19:58 | XMS_ITS | Encounter Summary ---
Author Organization [employer] Address [address] [place] [address] Care Team Providers Care Information Coordinator Name Role Phone Unavailable Primary Care Provider Unavailabl e Encounter Details Date Type Department Care Team (Late st Contact Info) Description 05/29/2019 Transcribed Document [facility] [place] Family Medicine [address] [place] [address] ProviderMelanie MD [address] [place] [address] Social History Tobacco Use Types Packs/Day Years Used Date Smoking Tobacco: Never Assessed Sex and Gender Information Value Date Recorded Sex Assigned at Not on file Legal Sex Male 4:07 PM CDT Gender Identity Not on file Sexual Orientation Not on file documented as of this encounter Miscellaneous Notes * Cerner Conversion Note - Historical ProviderMD - 05/29/2019 2:02 PM AVIATION TECHNICIAN AIRCRAFT Patient: TERRI MOREL Age: 59 years Sex: [...] the wound and he has been taking [place] Percocet and morphine at home with no [...] 250 m - 1,500 mg, IV Piggyback, [id number], infuse over 60 Minute(s), Routine Immunology influenza virus vaccine, inactivated - 0.5 mL, IntraMuscular, Inj, [id number] Cardiovascular carvedilol - 25 mg, Oral, Tab, [...] process/pending Rad: Radiology Results (Last 48 hours) [id number] -- 05/28/2019 20:28 CR Chest 1 Vw [...] Chuck OROPEZA DC Electronically signed by Angel [facility] Conversion Medicare Sales Representative Cerner at 09/05/2022 2:16 PM CDT documented in this encounter Plan of Treatment Not on file documented as of this encounter Visit Diagnoses Not on filedocumented in this encounter
--- OUTSIDE RECORDS SUMMARY | 2024-11-04 19:58 | XMS_ITS | Encounter Summary ---
Author Organization [employer] Address [address] [place] [address] Care Team Providers Care Lunchroom Worker Name Role Phone Unavailable Primary Care Provider Unavailabl e Encounter Details Date Type Department Care Team (Late st Contact Info) Description 05/30/2019 Transcribed Document [facility] [address] [place] [address] Provider marc Navarro MD Social History Tobacco Use Types Packs/Day Years Used Date Smoking Tobacco: Never Assessed Sex and Gender Information Value Date Recorded Sex Assigned at Not on file Legal Sex Male 4:07 PM CDT Gender Identity Not on file Sexual Orientation Not on file documented as of this encounter Miscellaneous Notes * Cerner Conversion Note - [facility] Melanie ProviderMD - 05/30/2019 6:00 AM EST Chart Check - Review Order Profile Entered On: 05/30/2019 5:07 EST Performed On: 05/30/2019 5:00 EST by Jenna Vargas Lpn Chart Check Powerplans Initiated/Discontinued as Appropriate : Yes All Active Orders Reviewed : Yes Jenna Vargas Lpn - 05/30/2019 5:07 EST Electronically signed by Angel [facility] Conversion Verse Writer Cerner at 10/14/2022 2:01 PM CDT documented in this encounter Plan of Treatment Not on file documented as of this encounter Visit Diagnoses Not on filedocumented in this encounter
--- OUTSIDE RECORDS SUMMARY | 2024-11-04 19:58 | XMS_ITS | Encounter Summary ---
Author Organization [facility] Address [address] [place] [address] Care Team Providers Care Jive Developer Name Role Phone Anita Dumas Primary Care Provider [phone] Encounter Details Date Type Department Care Team ([facility] st Contact Info) Description 03/28/2024 Orders Only External Location [address] [place] [address] Provider, External Social History Tobacco Use Types [...] documented as of this encounter Care Teams Jive Developer Relationship Specialty Start Date End Date Anita Dumas PA [address] [place] [address] PCP - General 08/06/22 documented as of this encounter
--- OUTSIDE RECORDS SUMMARY | 2024-11-04 19:58 | XMS_ITS | Encounter Summary ---
Author Organization [employer] Address [address] [place] [address] Care Team Providers Care Clinical Nurse Name Role Phone Unavailable Primary Care Provider Unavailabl e Encounter Details Date Type Department Care Team (Late st Contact Info) Description 05/29/2019 Transcribed Document [facility] [place] [address] [place] [address] ProviderMelanie MD [facility] [place], [place] [address] Social History Tobacco Use Types Packs/Day Years Used Date Smoking Tobacco: Never Assessed Sex and Gender Information Value Date Recorded Sex Assigned at Not on file Legal Sex Male 4:07 PM CDT Gender Identity Not on file Sexual Orientation Not on file documented as of this encounter Miscellaneous Notes * Cerner Conversion Note - Historical ProviderMD - 05/29/2019 11:15 AM LADIES LOCKER ROOM ATTENDANT [facility] OR PACU Summary Primary Physician: JC LUQUE MD-URO Finalized Date/Time: 05/29/19 13:38:14 Pt. Name: MORELTERRI /Sex: 1960 Male Med Rec #: [id number] Physician: FRANCOIS WISE DO Financial #: [id number] Pt. Type: I Room/Bed: [facility]/1 Admit/Disch: 05/28/19 20:28:00 - Institution: [facility] OR PACU I Case Times Entry 1 In PACU I 05/29/19 12:40:00 Ready for PACU 05/29/19 13:30:00 Discharge Discharge from PACU 05/29/19 13:30:00 I Last Modified By: Janel Zelaya RN 05/29/19 13:38:05 Finalized By: Janel Zelaya RN Document Signatures Signed By: Janel Zelaya RN 05/29/19 13:38 Electronically signed by Angel [facility] Conversion Lunch Truck Driver Cerner at 09/05/2022 2:21 PM CDT documented in this encounter Plan of Treatment Not on file documented as of this encounter Visit Diagnoses Not on filedocumented in this encounter
--- OUTSIDE RECORDS SUMMARY | 2024-11-04 19:58 | XMS_ITS | Encounter Summary ---
Author Organization [employer] Address [address] [place] [address] Care Team Providers Care Help Desk Technician Name Role Phone Unavailable Primary Care Provider Unavailabl e Encounter Details Date Type Department Care Team (Late st Contact Info) Description 05/30/2019 Transcribed Document [facility] [place] Family Medicine [address] [place] [address] ProviderMelanie MD [facility] [place], [place] [address] Social History Tobacco Use Types Packs/Day Years Used Date Smoking Tobacco: Never Assessed Sex and Gender Information Value Date Recorded Sex Assigned at Not on file Legal Sex Male 4:07 PM CDT Gender Identity Not on file Sexual Orientation Not on file documented as of this encounter Miscellaneous Notes * Cerner Conversion Note - Historical ProviderMD - 05/30/2019 4:19 PM CHIEF OF HARBOR PATROL Patient: TERRI VARGAS Age: 59 Years Sex: [...] still not adequate - will start dilaudid GUIDE DOMESTIC TOUR. 2. Coronary artery disease status post CABG [...] Oral, At Bedtime Dilaudid 6 mg/30 ml GUIDE DOMESTIC TOUR 6 mg, 6 mg= 30 mL, IntraVENous [...] Lymph # 2.13 x10(3)/uL 05/30/2019 06:33 EST [place] % 8.2 % 05/30/2019 06:33 EST [place] # 0.86 K/uL 05/30/2019 06:33 EST Eos % 3.8 % 05/30/2019 06:33 EST Eos # 0.40 x10(3)/uL 05/30/2019 06:33 EST Baso % 0.6 % 05/30/2019 06:33 EST Baso # 0.06 x10(3)/uL 05/30/2019 06:33 EST Slide Review No 05/30/2019 06:33 EST IG# 0.06 x10(3)/uL (High) 05/30/2019 06:33 EST IG% 0.60 % 05/30/2019 06:33 EST Electronically signed by Angel, French Conversion Crime Scene Evidence Technician Cerner at 09/05/2022 2:23 PM CDT documented in this encounter Plan of Treatment Not on file documented as of this encounter Visit Diagnoses Not on filedocumented in this encounter
--- OUTSIDE RECORDS SUMMARY | 2024-11-04 19:58 | XMS_ITS | Encounter Summary ---
Author Organization [employer] iatives Address [address] [place] [address] Care Team Providers Care Chemical Process Engineer Name Role Phone Unavailable Primary Care Provider Unavailabl e Encounter Details Date Type Department Care Team (Late st Contact Info) Description 05/29/2019 Transcribed Document [facility] [place] [address] [place] [address] ProviderMelanie MD [facility] [place] [address] Social History Tobacco Use Types Packs/Day Years Used Date Smoking Tobacco: Never Assessed Sex and Gender Information Value Date Recorded Sex Assigned at Not on file Legal Sex Male 4:07 PM CDT Gender Identity Not on file Sexual Orientation Not on file documented as of this encounter Miscellaneous Notes * Cerner Conversion Note - Historical ProviderMD - 05/29/2019 3:07 PM STATION WORKER Education-Diabetes Topics Entered On: 05/29/2019 16:57 EST [...] 05/29/2019 16:57 EST Electronically signed by Angel [facility] Conversion Conduit Worker Cerner at 09/05/2022 2:19 PM CDT documented in this encounter Plan of Treatment Not on file documented as of this encounter Visit Diagnoses Not on filedocumented in this encounter
--- OUTSIDE RECORDS SUMMARY | 2024-11-04 19:58 | XMS_ITS | Encounter Summary ---
Author Organization [employer] Address [address] [place] [address] Care Team Providers Care Space Physicist Name Role Phone Unavailable Primary Care Provider Unavailabl e Encounter Details Date Type Department Care Team (Late st Contact Info) Description 05/30/2019 Transcribed Document [facility] [place] Family Medicine [address] [place] [address] ProviderMelanie MD [address] [place], [place] [address] Social History Tobacco Use Types Packs/Day Years Used Date Smoking Tobacco: Never Assessed Sex and Gender Information Value Date Recorded Sex Assigned at Not on file Legal Sex Male 4:07 PM CDT Gender Identity Not on file Sexual Orientation Not on file documented as of this encounter Miscellaneous Notes * Cerner Conversion Note - Historical ProviderMD - 05/30/2019 2:00 AM BEAVER TRAPPER Coach Tour Driver Details Entered On: 05/30/2019 1:06 EST Performed [...] 05/30/2019 1:06 EST Electronically signed by Angel [facility] Conversion Senior Analyst Market Intelligence Cerner at 09/05/2022 2:22 PM CDT documented in this encounter Plan of Treatment Not on file documented as of this encounter Visit Diagnoses Not on filedocumented in this encounter
--- OUTSIDE RECORDS SUMMARY | 2024-11-04 19:58 | XMS_ITS | Encounter Summary ---
Author Organization [employer] Address [address] [place] [address] Care Team Providers Care Internet Sales Manager Name Role Phone Unavailable Primary Care Provider Unavailabl e Encounter Details Date Type Department Care Team (Late st Contact Info) Description 05/29/[address] [facility] [place] Family Medicine [address] [place] [address] ProviderMelanie MD [facility] [place] [address] Social History Tobacco Use Types Packs/Day Years Used Date Smoking Tobacco: Never Assessed Sex and Gender Information Value Date Recorded Sex Assigned at Not on file Legal Sex Male 4:07 PM CDT Gender Identity Not on file Sexual Orientation Not on file documented as of this encounter Miscellaneous Notes * Cerner Conversion Note - Historical ProviderMD - 05/29/2019 11:15 AM FOREIGN STUDENT ADVISER [facility] Main OR IntraOp Summary Primary Physician: JC LUQUE MD-SHANTEL Finalized Date/Time: 05/31/19 10:17:06 Pt. Name: LES MORELUSHA Rutherford /Sex: 1960 Male Med Rec #: [id number] Physician: FRANCOIS WISE DO Financial #: [id number] Pt. Type: I Room/Bed: [facility]/ Admit/Disch: 05/28/19 20:28:00 - Institution: [facility] IntraOp Case Attendance Entry 1 Entry 2 [...] Irvin RN WATTS, DESHAWNIA R. Role Performed Core Microarchitect, First Scrub, First Time In 05/29/19 11:00:00 05/29/19 11:00:00 Time Out 05/29/19 12:38:00 05/29/19 12:38:00 Procedure Scrotal Exploration Scrotal Exploration Other Attendee Superficial Wound Closed By: Last Modified By: Mikel Irvin RN Pantano, Scott, RN 05/29/19 12:40:12 05/29/19 12:40:12 [facility] IntraOp Case Attendance Audit 05/29/19 12:40:12 Instructional Developer: BRENTANONorris Modifier: PANTANOS 1 <+> Time Out 1 <*> Procedure Scrotal Exploration 2 <+> Time Out 2 <*> Procedure Scrotal Exploration 3 <+> Time Out 3 <*> Procedure Scrotal Exploration 4 <+> Time Out 4 <*> Procedure Scrotal Exploration 5 <+> Time Out 5 <*> Procedure Scrotal Exploration 05/29/19 11:31:44 Instructional Developer: BRENTANOS Modifier: PANTANOS <+> 1 Procedure 2 <*> Procedure Scrotal Exploration 3 <*> Procedure Scrotal Exploration 4 <*> Procedure Scrotal Exploration 5 <*> Procedure Scrotal Exploration 05/29/19 11:30:54 Instructional Developer: PANTANOS Modifier: PANTANOS 2 <+> Time In 2 <*> Procedure Scrotal Exploration 3 <+> Time In 3 <*> Procedure Scrotal Exploration 4 <+> Time In 4 <*> Procedure Scrotal Exploration 5 <+> Time In 5 <*> Procedure Scrotal Exploration [facility] IntraOp Case Times Entry 1 Patient In Room Time 05/29/19 11:00:00 Out Room Time 05/29/19 12:38:00 Anesthesia Start Time 05/29/19 11:00:00 Stop Time 05/29/19 12:38:00 Surgery / Procedure Times Start Time 05/29/19 11:15:00 Stop Time 05/29/19 12:38:00 Last Modified By: Mikel Irvin RN 05/29/19 12:39:19 [facility] IntraOp Case Times Audit 05/29/19 12:39:19 Instructional Developer: GISSELLE Modifier: GISSELLE <+> 1 Out Room Time <+> 1 Stop Time <+> 1 Stop Time [facility] IntraOp Cautery Entry 1 ESU Identification Cautery Type Monopolar ESU ID Number [id number] ID Type Hospital Number Cautery Settings Cut Setting 30 Coag Setting 30 ESU Grounding Pad Ground Pad Type Adult Grounding Pad Site Right thigh Grounding Pad Mikel Irvin RN Applied By Grounding Pad Site Dry, Intact, Warm Skin Condition Before Cautery Grounding Pad Site Unchanged Skin Condition After Cautery Last Modified By: Mikel Irvin RN 05/29/19 11:27:43 [facility] IntraOp Communication Entry 1 Communication To Family/Significant other Communication By Mikel Irvin RN Date and Time 05/29/19 11:27:00 Last Modified By: Mikel Irvin RN 05/29/19 11:27:52 [facility] IntraOp Counts Verification Entry 1 Procedure Scrotal Exploration Count Info Count Type Sponge, Sharps, Miscellaneous Counts Verification Baseline/pre-procedure Sequence Count Results Correct, surgeon notified Counts Performed By Count Performed By CT JENKINS (Scrub) Count Performed By Mikel Irvin RN (RN) Last Modified By: Mikel Irvin RN 05/29/19 11:28:08 [facility] IntraOp Counts Final Entry 1 Procedure Scrotal Exploration Final Count Info Count Type Sponge, Sharps, Miscellaneous Counts Verification Skin Closure/end of Sequence procedure Count Results Correct, surgeon notified Counts Performed By Count Performed By CT JENKINS (Scrub) Count Performed By Mikel Irvin RN (RN) Last Modified By: Mikel Irvin RN 05/29/19 11:28:23 [facility] IntraOp Cultures and Spec Summary Entry 1 Cultrures and Specimens Specimen Ordered: Yes Test(s) Blood/Laboratory Requested/Final Disposition Last Modified By: Mikel Irvin RN 05/29/19 11:28:29 [facility] IntraOp Departure from OR Entry 1 Integumentary Assessment Integumentary WDL Assessment WDL Transfer/Handoff Transfer to PACU Phase I Handoff Method Bedside/Face to face, Online nursing summary Post-op Transport Stretcher/Gurney Via Patient Transport MELISSA JIMENEZ MD-ANS, Accompanied by OTHER, ATTENDEE Last Modified By: Mikel Irvin RN 05/29/19 11:28:47 [facility] IntraOp Dressing and Packing Entry 1 Type Packing Wound Dressing Item Kerlix/Leonides Applied By OTHER, ATTENDEE Last Modified By: Mikel Irvin RN 05/29/19 11:29:48 [facility] IntraOp Dressing and Packing Audit 05/29/19 12:38:38 Instructional Developer: GISSELLE Modifier: GISSELLE 1 <*> Wound Dressing Item 4x4's [facility] IntraOp Fire Risk Assessment Entry 1 Fire [...] Modified By: Mikel Irvin RN 05/29/19 11:28:55 [facility] IntraOp General Case Asbestos Cement Sheet Supervisor 1 Case Information OR OR 03 [facility] Case Level 1 Room Verified Yes Wound Class II - Clean-Contaminated Specialty SN Urology Anesthesia Type General ASA Class 3 Diagnosis Preop Diagnosis ABSCESS SCROTUM Postop Same As Preop Yes Postop Diagnosis ABSCESS SCROTUM Last Modified By: Mikel Irvin RN 05/29/19 11:29:56 [facility] IntraOp General Case Data Audit 05/29/19 11:29:56 Instructional Developer: GISSELLE Modifier: GISSELLE <+> 1 ASA Class [facility] IntraOp Intraoperative Assessment Entry 1 Handoff Method [...] Modified By: Mikel Irvin RN 05/29/19 11:30:07 [facility] IntraOp Intraoperative Equipment Entry 1 Type Monitoring Equipment Intraop Monitoring Electrocardiogram Three lead placement (ECG) Electrode Placement Blood Pressure Non-Invasive BP Device Source Blood Pressure Arm, right upper Location Pulse Oximeter Hand, left Probe Site Antiembolic Devices Antiembolic Devices Sequential compression device, knee high Antiembolic Device Bilateral Location Scopes Photo/Video Documentation Last Modified By: Mikel Irvin RN 05/29/19 11:30:33 [facility] IntraOp Medication Admin Entry 1 Entry 2 Medication/Irrigant Marcaine 0.25% 30ml Bacitracin 50,00units vial - [id number] powder vial Combo Med List Time Administered Route of LOCAL IN IRRIGATION Administration Dose Dose 15 Unit of Measure ml ml Volume Administered By OTHER, ATTENDEE OTHER, ATTENDEE Procedure Irrigation Irrigant Volume In Irrigant Volume Out Last Modified By: Mikel Irvin RN Pantano, Scott, RN 05/29/19 11:33:55 05/29/19 11:33:55 [facility] IntraOp Patient Positioning Entry 1 Procedure Scrotal [...] Modified By: Mikel Irvin RN 05/29/19 11:31:42 [facility] IntraOp Sign In Entry 1 Patient, Site, [...] Modified By: Mikel Irvin RN 05/29/19 11:30:51 [facility] IntraOp Sign Out Entry 1 RN Confirmation [...] Modified By: Mikel Irvin RN 05/29/19 12:24:30 [facility] IntraOp Sign Out Audit 05/29/19 12:40:05 Instructional Developer: GISSELLE Modifier: GISSELLE <+> 1 RN Sign Out Signature Date/Time [facility] IntraOp Skin Prep Entry 1 Procedure Scrotal Exploration Prescribed N/A Pre-Surgical Prep Completed Prep Area GENITALIA Intraop Prep Integumentary WDL Assessment WDL Prep Agents Betadine scrub, Betadine solution Prep by Mikel Irvin RN Hair Removal Methods No hair removal performed Last Modified By: Mikel Irvin RN 05/29/19 11:29:33 [facility] IntraOp Surgical Procedures Entry 1 Procedure Scrotal Exploration Primary Procedure Yes Primary Surgeon JC LUQUE MD-URO Start 05/29/19 11:15:00 Stop 05/29/19 12:38:00 Anesthesia Type General Specialty SN Urology Wound Class II - Clean-Contaminated Last Modified By: Mikel Irvin RN 05/29/19 11:31:44 [facility] IntraOp Surgical Procedures Audit 05/29/19 12:39:57 Instructional Developer: GISSELLE Modifier: GISSELLE <+> 1 Stop [facility] IntraOp Temp Regulation Devices Entry 1 Temp Regulation Temperature Warm blankets, Forced Regulation Device Air Warming device Temperature Upper body Regulation Site Temperature MELISSA JIMENEZ MD-ANS Regulation Device Applied by Temperature monitored per Regulation Comment anesthesia, fariha hugger available Last Modified By: Mikel Irvin RN 05/29/19 11:30:40 [facility] IntraOP Time Out Entry 1 Procedure to [...] Modified By: Mikel Irvin RN 05/29/19 11:31:23 [facility] IntraOP Time Out Audit 05/29/19 11:31:23 Instructional Developer: ENIDNorris Modifier: GISSELLE 1 <+> Beta Asad [...]
--- OUTSIDE RECORDS SUMMARY | 2024-11-04 19:58 | XMS_ITS | Encounter Summary ---
Author Organization [employer]atives Address [address] [place] [address] Care Team Providers Care Respiratory Therapy Director Name Role Phone Unavailable Primary Care Provider Unavailabl e Encounter Details Date Type Department Care Team (Late st Contact Info) Description 05/31/2019 Transcribed Document [facility] [place] Family Medicine [address] [place] [address] ProviderMelanie MD [address] [place] [id number] Social History Tobacco Use Types Packs/Day Years Used Date Smoking Tobacco: Never Assessed Sex and Gender Information Value Date Recorded Sex Assigned at Not on file Legal Sex Male 4:07 PM CDT Gender Identity Not on file Sexual Orientation Not on file documented as of this encounter Miscellaneous Notes * Cerner Conversion Note - Melanie ProviderMD - 05/31/2019 4:40 PM WOODWIND INSTRUMENTS INSPECTOR Patient: TERRI MOREL Age: 59 years [...] the wound and he has been taking [place] Percocet and morphine at home with no [...]
--- OUTSIDE RECORDS SUMMARY | 2024-11-04 19:58 | XMS_ITS | Encounter Summary ---
Author Organization [employer] Address [address] [place] [address] Care Team Providers Care Photographic Developer And Printer Name Role Phone Unavailable Primary Care Provider Unavailabl e Encounter Details Date Type Department Care Team (Late st Contact Info) Description 05/28/2019 Transcribed Document [facility] [place] Family Medicine [address] [place] [address] ProviderMelanie MD [address] [place] [address] Social History Tobacco Use Types Packs/Day Years Used Date Smoking Tobacco: Never Assessed Sex and Gender Information Value Date Recorded Sex Assigned at Not on file Legal Sex Male 4:07 PM CDT Gender Identity Not on file Sexual Orientation Not on file documented as of this encounter Miscellaneous Notes * Cerner Conversion Note - Historical ProviderMD - 05/28/2019 8:37 PM WORKDAY DIRECTOR Pain Assessment Entered On: 05/29/2019 23:38 EST Performed On: 05/29/2019 21:55 EST by Jenna Vargas Lpn Intervention Information: HYDROmorphone Performed by Jenan Vargas Lpn on 05/29/2019 21:25:00 EST HYDROmorphone,1mg [...]
--- OUTSIDE RECORDS SUMMARY | 2024-11-04 19:58 | XMS_ITS | Encounter Summary ---
Author Organization [employer] Address [address] [place] [address] Care Team Providers Care Fibre Technologist Name Role Phone Unavailable Primary Care Provider Andrew e Encounter Details Date Type Department Care Team (Late st Contact Info) Description 05/29/2019 Transcribed Document [facility] [place] Family Medicine [address] [place] [address] ProviderMelanie MD [address], [place] [address] Social History Tobacco Use Types Packs/Day Years Used Date Smoking Tobacco: Never Assessed Sex and Gender Information Value Date Recorded Sex Assigned at Not on file Legal Sex Male 4:07 PM CDT Gender Identity Not on file Sexual Orientation Not on file documented as of this encounter Miscellaneous Notes * Cerner Conversion Note - Historical ProviderMD - 05/29/2019 11:21 AM GRILL CHEF Pain Assessment Entered On: 05/29/2019 16:57 EST [...]
--- OUTSIDE RECORDS SUMMARY | 2024-11-04 19:58 | XMS_ITS | Encounter Summary ---
Author Organization [employer] Address [address] [place] [address] Care Team Providers Care Candy Spreader Name Role Phone Unavailable Primary Care Provider Unavailabl e Encounter Details Date Type Department Care Team (Late st Contact Info) Description 05/30/2019 Transcribed Document [facility] [place] Family Medicine [address] [place] [address] ProviderMelanie MD [facility] [place] [address] Social History Tobacco Use Types Packs/Day Years Used Date Smoking Tobacco: Never Assessed Sex and Gender Information Value Date Recorded Sex Assigned at Not on file Legal Sex Male 4:07 PM CDT Gender Identity Not on file Sexual Orientation Not on file documented as of this encounter Miscellaneous Notes * Cerner Conversion Note - Historical ProviderMD - 05/30/2019 11:23 AM DEFENCE INTELLIGENCE ANALYST On Going Discharge Planning Entered On: 05/30/2019 11:23 EST Performed On: 05/30/2019 11:23 EST by LYNDSEY GAY RN-Director Of HousingBridge Mechanic Progress Note Discharge Arrangements : Patient Post-Acute Information Patient Name: TERRI VARGAS Gender: Male : [birth year] Age: 59 Years No Post-Acute Placement(s) Listed No Post-Acute Service(s) Listed No [place] Referral(s) Listed Did you Attend Multidisciplinary Rounds? : Yes LYNDSEY GAY RN-Director Of Housing - 05/30/2019 11:23 EST Electronically signed by Angel [facility] Conversion Roto Mixer Operator Cerner at 09/05/2022 2:03 PM CDT documented in this encounter Plan of Treatment Not on file documented as of this encounter Visit Diagnoses Not on filedocumented in this encounter
--- OUTSIDE RECORDS SUMMARY | 2024-11-04 19:58 | XMS_ITS | Encounter Summary ---
Author Organization [employer] Address [address] [place] [address] Care Team Providers Care Material Requirements Worker Name Role Phone Unavailable Primary Care Provider Unavailabl e Encounter Details Date Type Department Care Team (Late st Contact Info) Description 06/01/2019 Transcribed Document [facility] [place] Family Medicine [address] [place] [address] ProviderMelanie MD [facility] [address] Social History Tobacco Use Types Packs/Day Years Used Date Smoking Tobacco: Never Assessed Sex and Gender Information Value Date Recorded Sex Assigned at Not on file Legal Sex Male 4:07 PM CDT Gender Identity Not on file Sexual Orientation Not on file documented as of this encounter Miscellaneous Notes * Cerner Conversion Note - Melanie ProviderMD - 06/01/2019 5:17 PM FORENSIC MEDICAL EXAMINER [facility] [place] [address] TERRI MOREL :1960 Visit Time:05/28/2019 [...] Care Team STOP the following medications: STOP Steger (hydrocodone - acetaminophen) STOP Percocet 5/325 mg tablets ---- New prescription for Percocet 10 / 325 mg tablets provided. [facility]: [facility] [phone] Medical Equipment for Home Use: [employer] for wound vac [phone] Discharge Follow Up Instructions: PCP 1 week, ID (Dr. Weiss) 1 week, Urology 2 weeks. Home wound VAC. Activity: Discharge Activity: Activity as tolerated Diet: Discharge Diet: Resume usual diet as tolerated Follow-Up Appointments Follow Up with SUKHJINDER SHRESTHA MD-INT When 06/13/2019 03:45 PM EST Comments Appointment has been made Where: [address] [place] [address]- x8 Follow Up with KATARZYNA RIZO MD-INF When 06/03/2019 09:30 AM EST Where: [address] [place] [address]- Follow Up with JC LUQUE When Within 1 to 2 weeks Comments Call for follow up appointment Where: [address] [place] [address] [place] [address]- Business (1) Medications What How [...] to treat your wound at home. ??? [place] hospital stay. ??? Less pain. What are [...] 04/16/2009 Document Revised: 03/31/2017 Document Reviewed: 02/07/2016 ElseScanSocial Interactive Patient Education ?? 2019 [employer] Inc. Negative Pressure Wound Therapy Dressing Care [...] open and ready to use. ? Hand director of enterprise strategy. ? Wound cleanser or saltwater solution (saline) [...] and water are not available, use hand director of enterprise strategy. ??? Put on gloves. ??? Turn off [...] and water are not available, use hand director of enterprise strategy. Cleaning your wound ??? Follow your health care provider's instructions on how to clean your wound. This may include using a saline or recommended wound cleanser. ??? Do not use ekba-pxt-gdtpdqd medicated or antiseptic creams, sprays, liquids, or [...] and water are not available, use hand director of enterprise strategy. Applying the dressing ??? Apply a skin [...] and water are not available, use hand director of enterprise strategy. ??? Attach the suction and turn the [...] 07/26/2012 Document Revised: 05/29/2016 Document Reviewed: 02/07/2016 CyberPatrol Interactive Patient Education ?? 2019 OrderGroove. acetaminophen and oxycodone (a SEET a MIN [...] may report side effects to FDA at 0-423-IWD-0104. What other drugs will affect acetaminophen and [...] affect acetaminophen and oxycodone, including prescription and pvcv-bkz-ygvpkeh medicines, vitamins, and herbal products. Not all [...] to ensure that the information provided by [employer]ovi. ('Multum') is accurate, up-to-date, and complete, but no guarantee is made to that effect. Drug information contained herein may be time sensitive. Within3 information has been compiled for use by healthcare practitioners and consumers in the [place] and therefore Within3 does not warrant that uses outside of the [place] are appropriate, unless specifically indicated otherwise. Within3's drug information does not endorse drugs, diagnose patients or recommend therapy. United [employer] Cares drug information is an informational resource designed [...] effective or appropriate for any given patient. [employer] does not assume any responsibility for any aspect of healthcare administered with the aid of information Within3 provides. The information contained herein is not intended to cover all possible uses, directions, precautions, warnings, drug interactions, allergic reactions, or adverse effects. If you have questions about the drugs you are taking, check with your doctor, nurse or pharmacist. Copyright 8220-8449 Nanovi. Version: 18.02. Revision Date: 04/14/2018. lactobacillus acidophilus [...] may report side effects to FDA at 9-927-UIE-7984. What other drugs will affect lactobacillus acidophilus? Do not take lactobacillus acidophilus without medical advice if you are using any medications that can weaken your immune system, such as: ?? medicine to prevent organ transplant rejection; or ?? steroid medicine (prednisone, dexamethasone, methylprednisolone, and others). This list is not complete. Other drugs may interact with lactobacillus acidophilus, including prescription and ifrk-sto-zenbfrn medicines, vitamins, and herbal products. Not all [...] to ensure that the information provided by Nanovi. ('Multum') is accurate, up-to-date, and complete, but no guarantee is made to that effect. Drug information contained herein may be time sensitive. Within3 information has been compiled for use by healthcare practitioners and consumers in the [place] and therefore Within3 does not warrant that uses outside of the [place] are appropriate, unless specifically indicated otherwise. Within3's drug information does not endorse drugs, diagnose patients or recommend therapy. United [employer] Cares drug information is an informational resource designed [...] effective or appropriate for any given patient. Within[employer] does not assume any responsibility for any aspect of healthcare administered with the aid of information Within3 provides. The information contained herein is not intended to cover all possible uses, directions, precautions, warnings, drug interactions, allergic reactions, or adverse effects. If you have questions about the drugs you are taking, check with your doctor, nurse or pharmacist. Copyright 6558-9814 Nanovi. Version: 3.07. Revision Date: 10/24/2016. amoxicillin and [...] may report side effects to FDA at 4-901-VSN-3476. What other drugs will affect amoxicillin and clavulanate potassium? Tell your doctor about all your current medicines and any you start or stop using, especially: ?? allopurinol; ?? probenecid; or ?? a blood thinner--warfarin, Coumadin, Jantoven. This list is not complete. Other drugs may interact with amoxicillin and clavulanate potassium, including prescription and sftl-zhf-wtszcps medicines, vitamins, and herbal products. Not all [...] to ensure that the information provided by Nanovi. ('Multum') is accurate, up-to-date, and complete, but no guarantee is made to that effect. Drug information contained herein may be time sensitive. Within3 information has been compiled for use by healthcare practitioners and consumers in the [place] and therefore Within3 does not warrant that uses outside of the [place] are appropriate, unless specifically indicated otherwise. United [employer] Cares drug information does not endorse drugs, diagnose patients or recommend therapy. SHERPAND[employer]ITY drug information is an informational resource designed [...] effective or appropriate for any given patient. [employer] does not assume any responsibility for any aspect of healthcare administered with the aid of information Within3 provides. The information contained herein is not intended to cover all possible uses, directions, precautions, warnings, drug interactions, allergic reactions, or adverse effects. If you have questions about the drugs you are taking, check with your doctor, nurse or pharmacist. Copyright 4928-4454 Nanovi. Version: .. Revision Date: 05/19/2017. doxycycline (oral/injection) [...] or life-threatening conditions such as anthrax or [place] spotted fever. The benefit of treating a [...] may report side effects to FDA at 3-960-HCJ-7756. What other drugs will affect doxycycline? Sometimes it is not safe to use certain medications at the same time. Some drugs can affect your blood levels of other drugs you take, which may increase side effects or make the medications less effective. Other drugs may affect doxycycline, including prescription and cheo-lbl-camqcxp medicines, vitamins, and herbal products. Tell your [...] to ensure that the information provided by Nanovi. ('Multum') is accurate, up-to-date, and complete, but no guarantee is made to that effect. Drug information contained herein may be time sensitive. Within3 information has been compiled for use by healthcare practitioners and consumers in the [place] and therefore Within3 does not warrant that uses outside of the [place] are appropriate, unless specifically indicated otherwise. United [employer] Cares drug information does not endorse drugs, diagnose patients or recommend therapy. United [employer] Cares drug information is an informational resource designed [...] effective or appropriate for any given patient. Within3 does not assume any responsibility for any aspect of healthcare administered with the aid of information Within3 provides. The information contained herein is not intended to cover all possible uses, directions, precautions, warnings, drug interactions, allergic reactions, or adverse effects. If you have questions about the drugs you are taking, check with your doctor, nurse or pharmacist. Copyright 5152-5115 Nanovi. Version: 21.02. Revision Date: 10/06/2018. Emergency Awareness [...] Assistance with quitting is available by contacting 9-101-LXIW-NOW. This is a free resource providing counseling, [...] range between ( 0.0 and 7.0 ) [place] #: 0.86 K/uL -- Normal range between ( 0.16 and 1.00 ) Eos #: 0.40 x10(3)/uL -- Normal range between ( 0.00 and 0.80 ) E[place]ka %: 8.2 % -- Normal range between [...] ) Urine Bilirubin Dipstick: Negative Urine Specific [place]: >1.030 -- Normal range between ( 1.005 [...]
--- OUTSIDE RECORDS SUMMARY | 2024-11-04 19:58 | XMS_ITS | Encounter Summary ---
Author Organization [employer] Address [address] [place] [address] Care Team Providers Care Movie Shot Cameraman Name Role Phone Unavailable Primary Care Provider Unavailabl e Encounter Details Date Type Department Care Team (Late st Contact Info) Description 05/28/2019 Transcribed Document [facility] [place] [address] [place] [address] ProviderMelanie MD [facility] [place], [place] [address] Social History Tobacco Use Types Packs/Day Years Used Date Smoking Tobacco: Never Assessed Sex and Gender Information Value Date Recorded Sex Assigned at Not on file Legal Sex Male 4:07 PM CDT Gender Identity Not on file Sexual Orientation Not on file documented as of this encounter Miscellaneous Notes * Cerner Conversion Note - Historical ProviderMD - 05/28/2019 6:12 PM RODDING ANODE WORKER ED Assessment Entered On: 05/28/2019 18:55 EST [...] 18:51 EST Respiratory Respiratory Assessment WDL : [facility] SHAUNNA WEST RN - 05/28/2019 18:51 EST Genitourinary Assessment, ED Genitourinary Assessment WDL : [facility] with exceptions (Comment: pt c/o non-healing [...] Neurologic ASMT, ED Neurologic Assessment WDL : [facility] [place] Coma Scale Link : [facility] SHAUNNA WEST RN - 05/28/2019 18:51 EST [place] Coma Felipa Best Motor Response : Obey commands [place] Best Verbal Response : Oriented [place] Eye Opening Response : Spontaneous Felipa Coma Score : 15 SHAUNNA WEST RN - 05/28/2019 18:51 EST documented in this encounter Plan of Treatment Not on file documented as of this encounter Visit Diagnoses Not on filedocumented in this encounter
--- OUTSIDE RECORDS SUMMARY | 2024-11-04 19:58 | XMS_ITS | Encounter Summary ---
Author Organization [employer] Address [address] [place] [address] Care Team Providers Care Corporate Aircraft Mechanic Name Role Phone Unavailable Primary Care Provider Unavailabl e Encounter Details Date Type Department Care Team (Late st Contact Info) Description 06/10/2019 Transcribed Document [facility] [place] Family Medicine [address] [place] [address] ProviderMelanie MD [address] [place] [id number] Social History Tobacco Use Types Packs/Day Years Used Date Smoking Tobacco: Never Assessed Sex and Gender Information Value Date Recorded Sex Assigned at Not on file Legal Sex Male 4:07 PM CDT Gender Identity Not on file Sexual Orientation Not on file documented as of this encounter Miscellaneous Notes * Cerner Conversion Note - Historical ProviderMD - 06/10/2019 2:25 PM STOCK MANAGER DATE OF ADMISSION: 06/09/2019 HISTORY: This is a 59-year-old male, resident of [place], [place], we are seeing on referral from [...] with orchitis. He was admitted here at [facility] earlier this month for a surgical cleanout and additional debridement. This time, he was treated with a negative pressure wound system, which is still in place. The testicle remains. He has been having difficulty at home with frequent signaling of the device. He has one of the [employer] products, and unfortunately, we have found this [...] by with just 2 changes per week. /[id number] MD MELI Terry III/LESLEY / MELI / JOVANY CC: MD Chuck Martinez MD Electronically signed by Angel [facility] Conversion Sonar Watchstander Cerner at 09/05/2022 2:16 PM CDT documented in this encounter Plan of Treatment Not on file documented as of this encounter Visit Diagnoses Not on filedocumented in this encounter
--- OUTSIDE RECORDS SUMMARY | 2024-11-04 19:58 | XMS_ITS | Encounter Summary ---
Author Organization [employer] Address [address] [place] [address] Care Team Providers Care Wellness Coach Name Role Phone Unavailable Primary Care Provider Unavailabl e Encounter Details Date Type Department Care Team (Late st Contact Info) Description 05/31/2019 Transcribed Document [facility] [place] [address] [place] [address] ProviderMelanie MD [facility] [place], [place] [address] Social History Tobacco Use Types Packs/Day Years Used Date Smoking Tobacco: Never Assessed Sex and Gender Information Value Date Recorded Sex Assigned at Not on file Legal Sex Male 4:07 PM CDT Gender Identity Not on file Sexual Orientation Not on file documented as of this encounter Miscellaneous Notes * Cerner Conversion Note - Historical ProviderMD - 05/31/2019 11:19 PM METAL PATTERNMAKER APPRENTICE Patient: TERRI VARGAS Age: 59 Years Sex: [...] still not adequate - will increase dilaudid AQUATIC HABITAT BIOLOGIST and allow oral oxcodone as needed. 2. [...] Oral, At Bedtime Dilaudid 6 mg/30 ml AQUATIC HABITAT BIOLOGIST 6 mg, 6 mg= 30 mL, IntraVENous [...] 05/31/2019 07:07 EST Electronically signed by Angel [facility] Conversion Magazine Supervisor Cerner at 09/05/2022 2:15 PM CDT documented in this encounter Plan of Treatment Not on file documented as of this encounter Visit Diagnoses Not on filedocumented in this encounter
--- OUTSIDE RECORDS SUMMARY | 2024-11-04 19:58 | XMS_ITS | Encounter Summary ---
Author Organization [employer] Address [address] [place] [address] Care Team Providers Care Allergy Specialist Name Role Phone Unavailable Primary Care Provider Unavailabl e Encounter Details Date Type Department Care Team (Late st Contact Info) Description 06/28/2019 Transcribed Document [facility] [place] [facility] [place] [address] ProviderMelanie MD [address] [place] [id number] Social History Tobacco Use Types Packs/Day Years Used Date Smoking Tobacco: Never Assessed Sex and Gender Information Value Date Recorded Sex Assigned at Not on file Legal Sex Male 4:07 PM CDT Gender Identity Not on file Sexual Orientation Not on file documented as of this encounter Miscellaneous Notes * Cerner Conversion Note - Melanie ProviderMD - 06/28/2019 10:50 PM LINE CLEARANCE FOREMAN ED Triage Entered On: 06/28/2019 23:04 EST [...] : 3 - Urgent Tracking Group : [facility] ED Montse Mooney RN-Flex Team - [...] Onset Date: Unspecified ; Created By: Contributor_system HIST_[employer]HIR; Reaction Status: Active ; Category: Drug ; Substance: No Known Allergies ; Type: Allergy ; Updated By: Contributor_system HIST_CERMIHIR; Reviewed Date: 06/28/2019 23:01 EST Diagnosis Control ED (As Of: 06/28/2019 23:04:04 EST) Problems(Active) CAD (coronary artery disease) (SNOMED CT :78656058 ) Name of Problem: CAD (coronary artery disease) ; Recorder: Montse Mooney RN-Flex Team; Confirmation: Confirmed ; Classification: Medical ; Code: [id number] ; Contributor System: [employer] ; Last Updated: 06/28/2019 23:02 EST ; Life Cycle Date: 06/28/2019 ; Life Cycle Status: Active ; Vocabulary: SNOMED CT Diabetes mellitus (SNOMED CT :283920119 ) Name of Problem: Diabetes mellitus ; Recorder: Montse Mooney RN-Flex Team; Confirmation: Confirmed ; Classification: Medical ; Code: 252221197 ; Contributor System: PowerChart ; Last Updated: 06/28/2019 23:02 EST ; Life Cycle Date: 06/28/2019 ; Life Cycle Status: Active ; Vocabulary: SNOMED CT History of obstructive sleep apnea (IMO :91725937 ) Name of Problem: History of obstructive sleep apnea ; Recorder: SYSTEM, SYSTEM; Confirmation: Confirmed ; Classification: Medical ; Code: 67501113 ; Last Updated: 05/29/2019 0:07 EST ; Life Cycle Date: 05/29/2019 ; Life Cycle Status: Active ; Vocabulary: IMO HLD (hyperlipidemia) (SNOMED CT :55519773 ) Name of Problem: HLD (hyperlipidemia) ; Recorder: Montse Mooney RN-Flex Team; Confirmation: Confirmed ; Classification: Medical ; Code: 80206544 ; Contributor System: [employer] ; Last Updated: 06/28/2019 23:02 EST ; Life Cycle Date: 06/28/2019 ; Life Cycle Status: Active ; Vocabulary: SNOMED CT HTN (hypertension) (SNOMED CT :7723902909 ) Name of Problem: HTN (hypertension) ; Recorder: Montse Mooney RN-Flex Team; Confirmation: Confirmed ; Classification: Medical ; Code: [id number] ; Contributor System: PowerChart ; Last Updated: 06/28/2019 23:02 EST ; Life Cycle Date: 06/28/2019 ; Life Cycle Status: Active ; Vocabulary: SNOMED CT Diagnoses(Active) Testicular pain Date: 06/28/2019 ; Diagnosis Type: Reason For Visit ; Confirmation: Complaint of ; Clinical Dx: Testicular pain ; Classification: Medical ; Clinical Service: Non-Specified ; Code: PNED ; Probability: 0 ; Diagnosis Code: [id number] ED Height and Weight Height Source : Stated Height Entry Format : [place] Height, Feet : 5 ft(Converted to: 152 cm, 60 Inch) Height, Inches : 11 Inch(Converted to: 0 ft 11 Inch, 27.94 cm) Clinical Height : 180.34 cm Weight Source, ED : Standing scale Weight Entry Format : [place] Weight, Pounds : 230.6 lb Clinical Dosing Weight : 104.82 kg Body Surface Area (BSA) : 2.24 m2 Body Mass Index : 32.2 kg/m2 (HI) Jakin Body Weight (IBW) : 74.31 kg Montse [...]
--- OUTSIDE RECORDS SUMMARY | 2024-11-04 19:58 | XMS_ITS | Encounter Summary ---
Author Organization [employer] Address [address] [place] [address] Care Team Providers Care Pulmonology Technician Name Role Phone Unavailable Primary Care Provider Unavailabl e Encounter Details Date Type Department Care Team (Late st Contact Info) Description 06/01/2019 Transcribed Document [facility] [place] [address] [place] [address] ProviderMelanie MD [facility] [place], [place] [address] Social History Tobacco Use Types Packs/Day Years Used Date Smoking Tobacco: Never Assessed Sex and Gender Information Value Date Recorded Sex Assigned at Not on file Legal Sex Male 4:07 PM CDT Gender Identity Not on file Sexual Orientation Not on file documented as of this encounter Miscellaneous Notes * Cerner Conversion Note - Melanie Grider MD - 06/01/2019 4:58 PM WESTERN TACK ASSEMBLY LINE WORKER Patient Education Materials Follows: Negative Pressure Wound [...] to treat your wound at home. ??? [place] hospital stay. ??? Less pain. What are [...] 04/16/2009 Document Revised: 03/31/2017 Document Reviewed: 02/07/2016 Shopliment Interactive Patient Education ? 2019 Sh[employer]iment Inc. Negative Pressure Wound Therapy Dressing Care [...] open and ready to use. ? Hand crusher operator. ? Wound cleanser or saltwater solution (saline) [...] and water are not available, use hand crusher operator. ??? Put on gloves. ??? Turn off [...] and water are not available, use hand crusher operator. Cleaning your wound ??? Follow your health care provider's instructions on how to clean your wound. This may include using a saline or recommended wound cleanser. ??? Do not use oeoa-mdd-okhrtho medicated or antiseptic creams, sprays, liquids, or [...] and water are not available, use hand crusher operator. Applying the dressing ??? Apply a skin [...] and water are not available, use hand crusher operator. ??? Attach the suction and turn the [...] 07/26/2012 Document Revised: 05/29/2016 Document Reviewed: 02/07/2016 ElseTFG Card Solutions Interactive Patient Education ? 2019 Shopliment Inc. Electronically signed by Angel, Nicci Conversion On Site Construction Superintendent Cerner at 09/05/2022 2:24 PM CDT documented in this encounter Plan of Treatment Not on file documented as of this encounter Visit Diagnoses Not on filedocumented in this encounter
--- OUTSIDE RECORDS SUMMARY | 2024-11-04 19:58 | XMS_ITS | Encounter Summary ---
Author Organization [employer] Address [address] [place] [address] Care Team Providers Care Ski Edge Painter Name Role Phone Unavailable Primary Care Provider Unavailabl e Encounter Details Date Type Department Care Team (Late st Contact Info) Description 05/29/2019 Transcribed Document [facility] [place] [address] [place] [address] ProviderMelanie MD [place] [address] Social History Tobacco Use Types Packs/Day Years Used Date Smoking Tobacco: Never Assessed Sex and Gender Information Value Date Recorded Sex Assigned at Not on file Legal Sex Male 4:07 PM CDT Gender Identity Not on file Sexual Orientation Not on file documented as of this encounter Miscellaneous Notes * Cerner Conversion Note - Historical ProviderMD - 05/29/2019 8:00 AM SUSTAINABLE PRODUCTS MARKETING MANAGER Consult Phone Call Documentation Entered On: 05/29/2019 [...]
--- OUTSIDE RECORDS SUMMARY | 2024-11-04 19:58 | XMS_ITS | Encounter Summary ---
Author Organization [facility] Address [address] [place] [address] Care Team Providers Care Dipper Machine Operator Name Role Phone Anita Dumas Primary Care Provider [phone] Encounter Details Date Type Department Care Team ([facility] st Contact Info) Description 05/30/2024 Orders Only External Location [address] [place] [address] Provider, External Social History Tobacco Use Types [...] documented as of this encounter Care Teams Dipper Machine Operator Relationship Specialty Start Date End Date Anita Dumas PA [address] [place] [address] PCP - General 08/06/22 documented as of this encounter
--- OUTSIDE RECORDS SUMMARY | 2024-11-04 19:58 | XMS_ITS | Encounter Summary ---
Author Organization [employer] Address [address] [place] [address] Care Team Providers Care Panel Lay Up Worker Name Role Phone Unavailable Primary Care Provider Unavailabl e Encounter Details Date Type Department Care Team (Late st Contact Info) Description 05/28/2019 Transcribed Document [facility] [place] [address] [place] [address] ProviderMelanie MD [facility] [place], [place] [address] Social History Tobacco Use Types Packs/Day Years Used Date Smoking Tobacco: Never Assessed Sex and Gender Information Value Date Recorded Sex Assigned at Not on file Legal Sex Male 4:07 PM CDT Gender Identity Not on file Sexual Orientation Not on file documented as of this encounter Miscellaneous Notes * Cerner Conversion Note - Historical ProviderMD - 05/28/2019 9:10 PM STONE AND CONCRETE WASHER Admission History, Adult Entered On: 05/29/2019 0:07 [...] From : Patient, Spouse Primary Language : S[place]ome[place] Preferred Communication Mode : Verbal Communication Barrier [...] Scale Risk Level : 25-45 Medium Risk [place] Fall Interventions : Adequate lighting, Assistive devices [...] Source : Stated Height Entry Format : [place] Height, Feet : 5 ft(Converted to: 152 cm, 60 Inch) Height, Inches : 4 Inch(Converted to: 0 ft 4 Inch, 10.16 cm) Clinical Height : 162.56 cm Weight Source : Bed scale Weight Entry Format : [place] Clinical Dosing Weight : 102.27 kg Weight, Pounds : 225 lb Body Surface Area (BSA) : 2.06 m2 Body Mass Index : 38.7 kg/m2 (HI) [place] Body Weight : 58 kg Jenna Vargas [...] risk Jenna Vargas Lpn 05/29/2019 0:02 EST [place] Suicide Severity Rating Scale (C-SSRS) CSSRS Past [...] in Unsafe Situation : No Jenna Vargas Physiotherapy Practice Manager 05/29/2019 0:02 EST Sleep Apnea Risk Assmt BiPAP/CPAP Ordered for Home Use : Yes Hx of Obstructive Sleep Apnea Diagnosis : Yes BiPAP/CPAP Used at Home : Yes Age over 50 Years Old : Yes Gender Male : Yes Jenna Vargas Physiotherapy Practice Manager 05/29/2019 0:02 EST Spiritual/Cultural Needs Significant Loss/Crisis in Past 3 Years : No Any Spiritual/Cultural Needs or Requests : No Jenna Vargas Physiotherapy Practice Manager 05/29/2019 0:02 EST Valuables and Belongings Valuables and Belongings : Clothing, Personal devices, Personal items Clothing : Common streetwear Clothing Disposition : Bedside, With family Personal Device Disposition : Bedside, With family Personal Devices : Glasses Personal Items : Cell phone, Other: CPAP Personal Items Disposition : Bedside Jenna Vargas [facility] - 05/29/2019 0:02 EST Electronically signed by French Ortiz Conversion Wound/Ostomy Clinical Nurse Specialist Cerner at 09/05/2022 2:10 PM CDT documented in this encounter Plan of Treatment Not on file documented as of this encounter Visit Diagnoses Not on filedocumented in this encounter
--- OUTSIDE RECORDS SUMMARY | 2024-11-04 19:58 | XMS_ITS | Encounter Summary ---
Author Organization [employer] Address [address] [place] [address] Care Team Providers Care Flat Lock Machine Operator Name Role Phone Unavailable Primary Care Provider Unavailabl e Encounter Details Date Type Department Care Team (Late st Contact Info) Description 06/01/2019 Transcribed Document [facility] [place] [address] [place] [address] ProviderMelanie MD [address] [place] [address] Social History Tobacco Use Types Packs/Day Years Used Date Smoking Tobacco: Never Assessed Sex and Gender Information Value Date Recorded Sex Assigned at Not on file Legal Sex Male 4:07 PM CDT Gender Identity Not on file Sexual Orientation Not on file documented as of this encounter Miscellaneous Notes * Cerner Conversion Note - Historical ProviderMD - 06/01/2019 4:50 PM FLATWORK IRONER Stroke/Warfarin Instructions Entered On: 06/01/2019 16:50 EST [...]
--- OUTSIDE RECORDS SUMMARY | 2024-11-04 19:58 | XMS_ITS | Clinical Summary ---
Author Organization [facility] Address [address] [place] [address] Care Team Providers Care Corporate Paralegal Name Role Phone Anita Dumas Primary Care Provider [phone] Allergies Active Allergy Reactions Criticality Noted Date [...] abuse counseling 08/03/2024 Intracranial vascular stenosis 08/03/2024 Immunizations Immunization Administration Dates Next Due Influenza, [...] (2 - Td or Tdap) 05/05/2023 05/05/2013 [id number] Vaccine (1 - season) 2024 UKY-Influenza Vaccine [...] <6.0% Children and Adolescents <7.5% . Source: [place] [employer]. Standards of medical care in diabetes, 2017. Diabetes Care.2017:40 (suppl 1):S1-S135. . HbA1c assay performed by an ion-exchange chromatography method that is certified traceable to the DCCT. 11/14/2018 6:10 PM EDT 11/14/2018 6:24 PM EDT us Mikel Dowell APRN LAB BLOOD ORDERABLES Final Re sult [employer] from Last 3 Months or Most Recently Relevant to Health Maintenance Insurance MEDICARE Care Teams Corporate Paralegal Relationship Specialty Start Date End Date Anita Dumas PA [address] [place] [address] PCP - General 08/06/22
--- OUTSIDE RECORDS SUMMARY | 2024-11-04 19:58 | XMS_ITS | Encounter Summary ---
Author Organization [employer] Address [address] [place] [address] Care Team Providers Care Business Process Representative Name Role Phone Unavailable Primary Care Provider Unavailabl e Encounter Details Date Type Department Care Team (Late st Contact Info) Description 05/29/2019 Transcribed Document [facility] [place] [address] [place] [address] ProviderMelanie [place] [address] Social History Tobacco Use Types Packs/Day Years Used Date Smoking Tobacco: Never Assessed Sex and Gender Information Value Date Recorded Sex Assigned at Not on file Legal Sex Male 4:07 PM CDT Gender Identity Not on file Sexual Orientation Not on file documented as of this encounter Miscellaneous Notes * Cerner Conversion Note - Historical ProviderMD - 05/29/2019 5:00 PM ENAMEL SHADER Chart Check - Review Order Profile Entered On: 05/29/2019 16:57 EST Performed On: 05/29/2019 17:00 EST by JANN JOSEPH RN Chart Check Powerplans Initiated/Discontinued as Appropriate : Yes All Active Orders Reviewed : Yes JANN JOSEPH RN - 05/29/2019 16:57 EST Electronically signed by Angel [facility] Conversion Landcare Facilitator [place] at 09/05/2022 2:06 PM CDT documented in this encounter Plan of Treatment Not on file documented as of this encounter Visit Diagnoses Not on filedocumented in this encounter
--- OUTSIDE RECORDS SUMMARY | 2024-11-04 19:58 | XMS_ITS | Encounter Summary ---
Author Organization [employer] Address [address] [place] [address] Care Team Providers Care Credit Reporter Name Role Phone Unavailable Primary Care Provider Unavailabl e Encounter Details Date Type Department Care Team (Late st Contact Info) Description 05/31/2019 Transcribed Document [facility] [place] [address] [place] [address] ProviderMelanie MD [facility] [place], [place] [address] Social History Tobacco Use Types Packs/Day Years Used Date Smoking Tobacco: Never Assessed Sex and Gender Information Value Date Recorded Sex Assigned at Not on file Legal Sex Male 4:07 PM CDT Gender Identity Not on file Sexual Orientation Not on file documented as of this encounter Miscellaneous Notes * Cerner Conversion Note - Historical ProviderMD - 05/31/2019 5:00 PM MOTORS AND CONTROLS TESTER Chart Check - Review Order Profile Entered [...]
--- OUTSIDE RECORDS SUMMARY | 2024-11-04 19:58 | XMS_ITS | Encounter Summary ---
Author Organization [employer] Address [address] [place] [address] Care Team Providers Care Dump Truck Driver Name Role Phone Unavailable Primary Care Provider Unavailabl e Encounter Details Date Type Department Care Team (Late st Contact Info) Description 05/28/2019 Transcribed Document [facility] [place] [facility] [place] [address] ProviderMelanie MD [address] [place] [address] Social History Tobacco Use Types Packs/Day Years Used Date Smoking Tobacco: Never Assessed Sex and Gender Information Value Date Recorded Sex Assigned at Not on file Legal Sex Male 4:07 PM CDT Gender Identity Not on file Sexual Orientation Not on file documented as of this encounter Miscellaneous Notes * Cerner Conversion Note - Melanie ProviderMD - 05/28/2019 8:56 PM TOUR DIRECTOR Patient: TERRI MOREL Age: 59 years Sex: [...] Patient reports he has been taking his [place] Percocet and morphine at home with no [...] Oral, BID vancomycin: 1,000 mg, IV Piggyback, P30FKid, Medications (16) Active Scheduled: (6) famotidine 20 mg tab 20 mg 1 Tab, Oral, BID HYDROmorphone 1 mg/1 mL inj 1 mg 1 mL, IV Push, 1-Time insulin lispro Scale D:, SubCutaneous, AC and at Bedtime lactobacillus acidophilus cap 1 Cap, Oral, BID piperacillin-tazobactam 3.375 Gram, IV Piggyback, Q6HInt vancomycin 1,000 mg, IV Piggyback, D72KLak Continuous: (1) NaCl 0.45% 1000 mL 1,000 [...] diabetes mellitus Procedure history: Right total orchiectomy ([id number]). Repair of right inguinal hernia ([id number]). Hydrocele ([id number]). CABG (Coronary artery bypass grafting) planned ([id number]). Social History Social & Psychosocial Habits No [...]
--- OUTSIDE RECORDS SUMMARY | 2024-11-04 19:58 | XMS_ITS | Encounter Summary ---
Author Organization [employer] Address [address] [place] [address] Care Team Providers Care Master Police Detective Name Role Phone Unavailable Primary Care Provider Unavailabl e Encounter Details Date Type Department Care Team (Late st Contact Info) Description 06/01/2019 Transcribed Document [facility] [place] [address] [place] [address] ProviderMelanie MD [address] [place] [address] Social History Tobacco Use Types Packs/Day Years Used Date Smoking Tobacco: Never Assessed Sex and Gender Information Value Date Recorded Sex Assigned at Not on file Legal Sex Male 4:07 PM CDT Gender Identity Not on file Sexual Orientation Not on file documented as of this encounter Miscellaneous Notes * Cerner Conversion Note - Melanie ProviderMD - 06/01/2019 4:08 PM ENVIRONMENTAL MAINTENANCE WORKER Patient: TERRI MOREL Age: 59 years Sex: [...] the wound and he has been taking [place] Percocet and morphine at home with no [...]
--- OUTSIDE RECORDS SUMMARY | 2024-11-04 19:58 | XMS_ITS | Encounter Summary ---
Author Organization [employer] Address [address] [place] [address] Care Team Providers Care Metal Drilling Machine Operator Name Role Phone Unavailable Primary Care Provider Unavailabl e Encounter Details Date Type Department Care Team (Late st Contact Info) Description 06/28/2019 Transcribed Document [facility] [place] [address] [place] [address] ProviderMelanie MD Replaced by [facility] [place], [place] [address] Social History Tobacco Use Types Packs/Day Years Used Date Smoking Tobacco: Never Assessed Sex and Gender Information Value Date Recorded Sex Assigned at Not on file Legal Sex Male 4:07 PM CDT Gender Identity Not on file Sexual Orientation Not on file documented as of this encounter Miscellaneous Notes * Cerner Conversion Note - Melanie ProviderMD - 06/28/2019 10:50 PM INTERNET DEVELOPER ED Assessment Entered On: 06/28/2019 23:13 EST Performed On: 06/28/2019 23:09 EST by Layla Vick, HEAD MVA REACTOR OPERATOR Quick Look Assessment Level of Consciousness : Alert, Awake Affect/Behavior : Appropriate, Cooperative Orientation : Oriented x 4 Skin Temperature : Warm Skin Description : Normal for ethnicity Layla Vick, RN - 06/28/2019 23:09 EST ED General-Functional Assess Information Obtained From : Patient Preferred Communication Mode : Verbal Communication Barrier : None Primary Language : Sami Any Spiritual/Cultural Needs or Requests : No [...] Genitourinary Assessment, ED Genitourinary Assessment WDL : [facility] with exceptions (Comment: Pt c/o testicular pain, [...]
--- OUTSIDE RECORDS SUMMARY | 2024-11-04 19:58 | XMS_ITS | Encounter Summary ---
Author Organization [employer] Address [address] [place] [address] Care Team Providers Care Men'S Locker Room Attendant Name Role Phone Unavailable Primary Care Provider Unavailabl e Encounter Details Date Type Department Care Team (Late st Contact Info) Description 05/28/2019 Transcribed Document [facility] [place] [facility] [place] [address] ProviderMelanie MD [address] [place] [id number] Social History Tobacco Use Types Packs/Day Years Used Date Smoking Tobacco: Never Assessed Sex and Gender Information Value Date Recorded Sex Assigned at Not on file Legal Sex Male 4:07 PM CDT Gender Identity Not on file Sexual Orientation Not on file documented as of this encounter Miscellaneous Notes * Cerner Conversion Note - Melanie ProviderMD - 05/28/2019 6:12 PM PRINT DESIGNER ED Triage Entered On: 05/28/2019 18:28 EST [...] : 3 - Urgent Tracking Group : [facility] ED KEN GAY RN - 05/28/2019 [...] PNED ; Probability: 0 ; Diagnosis Code: [id number] ED Height and Weight Height Source : Stated Height Entry Format : [place] Height, Feet : 5 ft(Converted to: 152 cm, 60 Inch) Height, Inches : 4 Inch(Converted to: 0 ft 4 Inch, 10.16 cm) Clinical Height : 162.56 cm Weight Source, ED : Critical estimated dosing weight Weight Entry Format : [place] Weight, Pounds : 225 lb Clinical Dosing Weight : 102.27 kg Body Surface Area (BSA) : 2.06 m2 Body Mass Index : 38.7 kg/m2 (HI) [place] Body Weight (IBW) : 58.3 kg KEN GAY RN - 05/28/2019 18:16 EST Electronically signed by Angel [facility] Conversion Looping Inspector Cerner at 09/05/2022 2:17 PM CDT documented in this encounter Plan of Treatment Not on file documented as of this encounter Visit Diagnoses Not on filedocumented in this encounter
--- OUTSIDE RECORDS SUMMARY | 2024-11-04 19:58 | XMS_ITS | Encounter Summary ---
Author Organization [employer] Address [address] [place] [address] Care Team Providers Care Associate Professor Of Medicine Name Role Phone Unavailable Primary Care Provider Unavailabl e Encounter Details Date Type Department Care Team (Late st Contact Info) Description 05/29/2019 Transcribed Document [facility] [place] [address] [place] [address] ProviderMelanie MD [address] [place] [address] Social History Tobacco Use Types Packs/Day Years Used Date Smoking Tobacco: Never Assessed Sex and Gender Information Value Date Recorded Sex Assigned at Not on file Legal Sex Male 4:07 PM CDT Gender Identity Not on file Sexual Orientation Not on file documented as of this encounter Miscellaneous Notes * Cerner Conversion Note - Historical ProviderMD - 05/29/2019 12:00 PM MAKING DEPARTMENT PREPARER UM Authorization Entered On: 05/29/2019 12:00 EST Performed On: 05/29/2019 12:00 EST by ZULY PIERRE Rn-Utilization Review Primary Insurance Authorization Authorization and Policy Numbers : Insurance 1 Health Plan: MEDICARE Policy Number: [id number] Authorization Number: Insurance Primary Name : MEDICARE Policy Number: [id number] Historical Authorization Comments-Primary : No Authorization Comments Found ZULY PIERRE Rn-Utilization Review - 05/29/2019 12:00 EST documented in this encounter Plan of Treatment Not on file documented as of this encounter Visit Diagnoses Not on filedocumented in this encounter
--- OUTSIDE RECORDS SUMMARY | 2024-11-04 19:58 | XMS_ITS | Encounter Summary ---
Author Organization [employer] Address [address] [place] [address] Care Team Providers Care Veneer Supervisor Name Role Phone Unavailable Primary Care Provider Unavailabl e Encounter Details Date Type Department Care Team (Late st Contact Info) Description 05/29/2019 Transcribed Document [facility] [place] [address] [place] [address] ProviderMelanie MD [facility] [place] [address] Social History Tobacco Use Types Packs/Day Years Used Date Smoking Tobacco: Never Assessed Sex and Gender Information Value Date Recorded Sex Assigned at Not on file Legal Sex Male 4:07 PM CDT Gender Identity Not on file Sexual Orientation Not on file documented as of this encounter Miscellaneous Notes * Cerner Conversion Note - Historical ProviderMD - 05/29/2019 8:00 AM HOME CARE AIDE Consult Phone Call Documentation Entered On: 05/29/2019 [...] Visit Diagnoses Not on filedocumented in this encounter"
--- OUTSIDE RECORDS SUMMARY | 2024-11-04 19:58 | XMS_ITS | Encounter Summary ---
Author Organization [employer] Address [address] [place] [address] Care Team Providers Care Line Pilot Name Role Phone Unavailable Primary Care Provider Unavailabl e Encounter Details Date Type Department Care Team (Late st Contact Info) Description 05/30/2019 Transcribed Document [facility] [place] [address] [place] [address] ProviderMelanie MD [address] [place] [address] Social History Tobacco Use Types Packs/Day Years Used Date Smoking Tobacco: Never Assessed Sex and Gender Information Value Date Recorded Sex Assigned at Not on file Legal Sex Male 4:07 PM CDT Gender Identity Not on file Sexual Orientation Not on file documented as of this encounter Miscellaneous Notes * Cerner Conversion Note - Historical ProviderMD - 05/30/2019 12:17 PM ACCESS CONTROL SPECIALIST WO Inpatient Documentation Entered On: 05/30/2019 12:18 [...] - 05/30/2019 12:17 EST Electronically signed by [facility] Sjh Conversion Ice Cream Freezer Cerner at 09/05/2022 2:24 PM CDT documented in this encounter Plan of Treatment Not on file documented as of this encounter Visit Diagnoses Not on filedocumented in this encounter
--- OUTSIDE RECORDS SUMMARY | 2024-11-04 19:58 | XMS_ITS | Encounter Summary ---
Author Organization [employer] Address [address] [place] [address] Care Team Providers Care Ice Guard Tester Name Role Phone Unavailable Primary Care Provider Unavailabl e Encounter Details Date Type Department Care Team (Late st Contact Info) Description 05/28/2019 Transcribed Document [facility] [place] [address] [place] [address] ProviderMelanie MD [facility] [place] [address] Social History Tobacco Use Types Packs/Day Years Used Date Smoking Tobacco: Never Assessed Sex and Gender Information Value Date Recorded Sex Assigned at Not on file Legal Sex Male 4:07 PM CDT Gender Identity Not on file Sexual Orientation Not on file documented as of this encounter Miscellaneous Notes * Cerner Conversion Note - Historical ProviderMD - 05/28/2019 8:36 PM SEXUAL ABUSE COUNSELLOR Pain Assessment Entered On: 05/29/2019 2:09 EST [...]
--- OUTSIDE RECORDS SUMMARY | 2024-11-04 19:58 | XMS_ITS | Encounter Summary ---
Author Organization [employer] Address [address] [place] [address] Care Team Providers Care Hardware Press Operator Name Role Phone Unavailable Primary Care Provider Unavailabl e Encounter Details Date Type Department Care Team (Late st Contact Info) Description 05/31/2019 Transcribed Document [facility] [place] [address] [place] [address] ProviderMelanie MD [place] [address] Social History Tobacco Use Types Packs/Day Years Used Date Smoking Tobacco: Never Assessed Sex and Gender Information Value Date Recorded Sex Assigned at Not on file Legal Sex Male 4:07 PM CDT Gender Identity Not on file Sexual Orientation Not on file documented as of this encounter Miscellaneous Notes * Cerner Conversion Note - Historical ProviderMD - 05/31/2019 5:00 AM CALCULATING MACHINE MECHANIC Chart Check - Review Order [...]
--- OUTSIDE RECORDS SUMMARY | 2024-11-04 19:58 | XMS_ITS | Encounter Summary ---
Author Organization [employer] Address [address] [place] [address] Care Team Providers Care Gum Maker Name Role Phone Unavailable Primary Care Provider Unavailabl e Encounter Details Date Type Department Care Team (Late st Contact Info) Description 05/30/2019 Transcribed Document [facility] [place] [address] [place] [address] ProviderMelanie MD [facility] [place], [place] [address] Social History Tobacco Use Types Packs/Day Years Used Date Smoking Tobacco: Never Assessed Sex and Gender Information Value Date Recorded Sex Assigned at Not on file Legal Sex Male 4:07 PM CDT Gender Identity Not on file Sexual Orientation Not on file documented as of this encounter Miscellaneous Notes * Cerner Conversion Note - Melanie ProviderMD - 05/30/2019 11:16 AM INVENTORY SPECIALIST Initial Discharge Planning Entered On: 05/30/2019 11:18 EST Performed On: 05/30/2019 11:16 EST by LYNDSEY GAY RN-Reaming Machine Tender Initial Assessment I Previously Documented Living Environment : No qualifying data available. LYNDSEY GAY RN-Reaming Machine Tender - 05/30/2019 11:19 EST Living Situation : [...] Is Guardianship Needed : No LYNDSEY GAY RN-Reaming Machine Tender - 05/30/2019 11:16 EST Initial Assessment II Sensory and Motor Deficits : None Current Home Treatments and Equipment : CPAP, Walker (Comment: Rollator [LYNDSEY GAY RN-Reaming Machine Tender - 05/30/2019 11:19 EST] ) Home Equipment Contact Information : Andrea [facility] Medical CPAP provider [phone] Services and Community Resources : Home Health (Comment: Pt states that he was current with [facility] [LYNDSEY GAY RN-Reaming Machine Tender - 05/30/2019 11:19 EST] ) Does the Patient have a Floor to SNF Benefit? : Yes LYNDSEY GAY RN-Reaming Machine Tender - 05/30/2019 11:16 EST Discharge Needs I Anticipated Discharge Date : 05/31/2019 EST Anticipated Discharge To, CM : Home with home health Current Home Treatment/Equipment : Current Home Treatment/Equipment No qualifying data available. Post Acute/Home Treatments : None Documentation Status Complete : Yes LYNDSEY GAY RN-Reaming Machine Tender - 05/30/2019 11:16 EST Discharge Needs II Professional Skilled Services : Professional Skilled Services No qualifying data available. Needs Assistance with Transportation : No LYNDSEY GAY RN-Reaming Machine Tender - 05/30/2019 11:16 EST Narrative Note Narrative [...] @ 39. CM will follow. LYNDSEY GAY RN-Reaming Machine Tender - 05/30/2019 11:19 EST Electronically signed by Nicci Ortiz Conversion Radiotelegraph Operator Servicer Cerner at 09/05/2022 2:21 PM CDT documented in this encounter Plan of Treatment Not on file documented as of this encounter Visit Diagnoses Not on filedocumented in this encounter
--- OUTSIDE RECORDS SUMMARY | 2024-11-04 19:58 | XMS_ITS | Encounter Summary ---
Author Organization [facility] Address [address] [place] [address] Care Team Providers Care Mold Designer Name Role Phone Anita Dumas Primary Care Provider [phone] Encounter Details Date Type Department Care Team ([facility] st Contact Info) Description 03/28/2024 Orders Only External Location [address] [place] [address] Provider, External Social History Tobacco Use Types [...] documented as of this encounter Care Teams Mold Designer Relationship Specialty Start Date End Date Anita Dumas PA [address] [place] [address] PCP - General 08/06/22 documented as of this encounter
--- OUTSIDE RECORDS SUMMARY | 2024-11-04 19:58 | XMS_ITS | Encounter Summary ---
Author Organization [employer] iatives Address [address] [place] [address] Care Team Providers Care Pattern Developer Name Role Phone Unavailable Primary Care Provider Unavailabl e Encounter Details Date Type Department Care Team (Late st Contact Info) Description 06/05/2019 Transcribed Document [facility] [place] [facility] [place] [address] ProviderMelanie MD [address] [place] [id number] Social History Tobacco Use Types Packs/Day Years Used Date Smoking Tobacco: Never Assessed Sex and Gender Information Value Date Recorded Sex Assigned at Not on file Legal Sex Male 4:07 PM CDT Gender Identity Not on file Sexual Orientation Not on file documented as of this encounter Miscellaneous Notes * Cerner Conversion Note - Melanie ProviderMD - 06/05/2019 1:08 PM SPRINKLER HELPER Patient: TERRI OMREL Age: 59 Years Sex: Male : 1960 [...] Patient reports he has been taking his Joice Percocet and morphine at home with no [...]
--- OUTSIDE RECORDS SUMMARY | 2024-11-04 19:58 | XMS_ITS | Encounter Summary ---
Author Organization [employer] i[employer] Address [address] [place] [address] Care Team Providers Care Bank Manager Name Role Phone Unavailable Primary Care Provider Unavailabl e Encounter Details Date Type Department Care Team (Late st Contact Info) Description 05/29/2019 Transcribed Document [facility] [place] Family [place] [address] [place] [address] ProviderMelanie MD [address] [place], [place] [address] Social History Tobacco Use Types Packs/Day Years Used Date Smoking Tobacco: Never Assessed Sex and Gender Information Value Date Recorded Sex Assigned at Not on file Legal Sex Male 4:07 PM CDT Gender Identity Not on file Sexual Orientation Not on file documented as of this encounter Miscellaneous Notes * Cerner Conversion Note - Historical ProviderMD - 05/29/2019 2:00 AM COPIER AND PRINTER FIELD TECHNICIAN Switch Engineer Details Entered On: 05/29/2019 3:59 EST Performed [...] 05/29/2019 3:59 EST Electronically signed by Angel [facility] Conversion Photo Mask Processor Cerner at 09/05/2022 2:19 PM CDT documented in this encounter Plan of Treatment Not on file documented as of this encounter Visit Diagnoses Not on filedocumented in this encounter
--- OUTSIDE RECORDS SUMMARY | 2024-11-04 19:58 | XMS_ITS | Encounter Summary ---
Author Organization [employer] i[employer] Address [address] [place] [address] Care Team Providers Care Longwall Headgate Operator Name Role Phone Unavailable Primary Care Provider Unavailabl e Encounter Details Date Type Department Care Team (Late st Contact Info) Description 05/28/2019 Transcribed Document [facility] [place] [address] [place] [address] ProviderMelanie MD [facility] [address] Social History Tobacco Use Types Packs/Day Years Used Date Smoking Tobacco: Never Assessed Sex and Gender Information Value Date Recorded Sex Assigned at Not on file Legal Sex Male 4:07 PM CDT Gender Identity Not on file Sexual Orientation Not on file documented as of this encounter Miscellaneous Notes * Cerner Conversion Note - Historical ProviderMD - 05/28/2019 11:54 PM ART OBJECTS SUPERVISOR ED Discharge Entered On: 05/28/2019 23:54 EST [...] Montse Shay RN - 05/28/2019 23:54 EST documented in this encounter Plan of Treatment Not on file documented as of this encounter Visit Diagnoses Not on filedocumented in this encounter
--- OUTSIDE RECORDS SUMMARY | 2024-11-04 19:58 | XMS_ITS | Encounter Summary ---
Author Organization [employer] i[employer] Address [address] [place] [address] Care Team Providers Care Dental Specialist Name Role Phone Unavailable Primary Care Provider Unavailabl e Encounter Details Date Type Department Care Team (Late st Contact Info) Description 05/29/2019 Transcribed Document [facility] [place] [address] [place] [address] ProviderMelanie MD [place] [address] Social History Tobacco Use Types Packs/Day Years Used Date Smoking Tobacco: Never Assessed Sex and Gender Information Value Date Recorded Sex Assigned at Not on file Legal Sex Male 4:07 PM CDT Gender Identity Not on file Sexual Orientation Not on file documented as of this encounter Miscellaneous Notes * Cerner Conversion Note - Historical ProviderMD - 05/29/2019 12:07 AM DIABETES NURSE Provider Notification Entered On: 05/29/2019 2:08 EST Performed On: 05/29/2019 0:07 EST by Jenna Vargas Lpn Provider Notification Provider Notified of Concerns/Results : Other: ANNA with home CPAP Provider Notified Name : FRANCOIS WISE DO Provider Notified Time : 05/29/2019 0:00 EST Jenna Vargas Lpn - 05/29/2019 2:08 EST Electronically signed by Angel [facility] Conversion Hvac Commercial Salesperson Cerner at 09/05/2022 2:16 PM CDT documented in this encounter Plan of Treatment Not on file documented as of this encounter Visit Diagnoses Not on filedocumented in this encounter
--- OUTSIDE RECORDS SUMMARY | 2024-11-04 19:58 | XMS_ITS | Encounter Summary ---
Author Organization [employer] Address [address] [place] [address] Care Team Providers Care Auto Rebuilder Name Role Phone Unavailable Primary Care Provider Unavailabl e Encounter Details Date Type Department Care Team (Late st Contact Info) Description 06/01/2019 Transcribed Document [facility] [place] [place] [address] [place] [address] ProviderMelanie MD [facility] [place] [address] Social History Tobacco Use Types Packs/Day Years Used Date Smoking Tobacco: Never Assessed Sex and Gender Information Value Date Recorded Sex Assigned at Not on file Legal Sex Male 4:07 PM CDT Gender Identity Not on file Sexual Orientation Not on file documented as of this encounter Miscellaneous Notes * Cerner Conversion Note - Historical ProviderMD - 06/01/2019 4:51 PM INSTRUCTIONAL TECHNOLOGY DIRECTOR Nursing Discharge Summary Entered On: 06/01/2019 16:51 EST Performed On: 06/01/2019 16:51 EST by SERVANDO BARILLAS woods warden Documentation Discharge Date/Time : 06/01/2019 18:00 EST [...] 06/01/2019 16:51 EST Electronically signed by Angel [facility] Conversion Mechanics Supervisor Cerner at 09/05/2022 2:04 PM CDT documented in this encounter Plan of Treatment Not on file documented as of this encounter Visit Diagnoses Not on filedocumented in this encounter
--- OUTSIDE RECORDS SUMMARY | 2024-11-04 19:58 | XMS_ITS | Encounter Summary ---
Author Organization [employer] Address [address] [place] [address] Care Team Providers Care Tub Wash Operator Name Role Phone Unavailable Primary Care Provider Unavailabl e Encounter Details Date Type Department Care Team (Late st Contact Info) Description 05/29/2019 Transcribed Document [facility] [place] Medicine [address] [place] [address] ProviderMelanie MD [facility] [place] [address] Social History Tobacco Use Types Packs/Day Years Used Date Smoking Tobacco: Never Assessed Sex and Gender Information Value Date Recorded Sex Assigned at Not on file Legal Sex Male 4:07 PM CDT Gender Identity Not on file Sexual Orientation Not on file documented as of this encounter Miscellaneous Notes * Cerner Conversion Note - Historical ProviderMD - 05/29/2019 5:00 AM FRONT ELEVATOR OPERATOR Chart Check - Review Order Profile [...]
--- OUTSIDE RECORDS SUMMARY | 2024-11-04 19:58 | XMS_ITS | Encounter Summary ---
Author Organization [employer] iatives Address [address] [place] [address] Care Team Providers Care Letterpress Printing Machinist Name Role Phone Unavailable Primary Care Provider Unavailabl e Encounter Details Date Type Department Care Team (Late st Contact Info) Description 05/30/2019 Transcribed Document [facility] [place] [address] [place] [address] ProviderMleanie MD [address] [place] [address] Social History Tobacco Use Types Packs/Day Years Used Date Smoking Tobacco: Never Assessed Sex and Gender Information Value Date Recorded Sex Assigned at Not on file Legal Sex Male 4:07 PM CDT Gender Identity Not on file Sexual Orientation Not on file documented as of this encounter Miscellaneous Notes * Cerner Conversion Note - Melanie ProviderMD - 05/30/2019 12:42 PM DESK MANAGER Patient: TERRI MOREL Age: 59 years Sex: Male : 1960 Associated Diagnoses: None Author: CHUCK MULLER MD-INF Referring MD: Dr. Kenneth Frank Evaluating MD: Dr. Chuck Muller Date of admission: 05/28/19 Chief complaint: Scrotal abscess HPI: Mr. Terri Morle is a 59-year-old male being evaluated with [...] the wound and he has been taking Luck Percocet and morphine at home with no [...] process/pending Rad: Radiology Results (Last 48 hours) [id number] -- 05/28/2019 20:28 CR Chest 1 Vw [...]
--- OUTSIDE RECORDS SUMMARY | 2024-11-04 19:58 | XMS_ITS | Encounter Summary ---
Author Organization [employer] Address [address] [place] [address] Care Team Providers Care Consumer Science Teacher Name Role Phone Unavailable Primary Care Provider Unavailabl e Encounter Details Date Type Department Care Team (Late st Contact Info) Description 06/01/2019 Transcribed Document [facility] [place] Family Medicine [address] [place] [address] ProviderMelanie MD [facility] [place], [place] [address] Social History Tobacco Use Types Packs/Day Years Used Date Smoking Tobacco: Never Assessed Sex and Gender Information Value Date Recorded Sex Assigned at Not on file Legal Sex Male 4:07 PM CDT Gender Identity Not on file Sexual Orientation Not on file documented as of this encounter Miscellaneous Notes * Cerner Conversion Note - Melanie ProviderMD - 06/01/2019 4:10 PM PEDIATRIC RN Final Discharge Planning Entered On: 06/01/2019 16:12 EST Performed On: 06/01/2019 16:10 EST by LYNDSEY GAY RN-Supervisor [employer] Final Discharge Planning Discharge Arrangements : Patient Post-Acute Information Patient Name: TERRI VARGAS Gender: Male : [birth year] Age: 59 Years Kasiaspbenson Referral(s): Service: Organization: Business Address: Phone Number: [facility] [address], [address], [place], [address] Patient Offered Choice/Affiliations Explained : [...] Services (Related/SOC within 3 days)-06 LYNDSEY GAY RN-Supervisor [employer] - 06/01/2019 16:10 EST Final Narrative Note Final Narrative Note : Discharged to home, agreeable. Updates with vac order sent to [facility]. Wound vac to be delivered to room at approximately 1730. No other needs verbalized at this time. LYNDSEY GAY, ANAT-Supervisor [employer] - 06/01/2019 16:10 EST Electronically signed by Angel [facility] Conversion Tire Classifier Cerner at 09/05/2022 2:24 PM CDT documented in this encounter Plan of Treatment Not on file documented as of this encounter Visit Diagnoses Not on filedocumented in this encounter
--- OUTSIDE RECORDS SUMMARY | 2024-11-04 19:58 | XMS_ITS | Encounter Summary ---
Author Organization [employer] Address [address] [place] [address] Care Team Providers Care Underbaster Name Role Phone Unavailable Primary Care Provider Unavailabl e Encounter Details Date Type Department Care Team (Late st Contact Info) Description 05/31/2019 Transcribed Document [facility] [place] [address] [place] [address] ProviderMelanie MD [address] [place] [address] Social History Tobacco Use Types Packs/Day Years Used Date Smoking Tobacco: Never Assessed Sex and Gender Information Value Date Recorded Sex Assigned at Not on file Legal Sex Male 4:07 PM CDT Gender Identity Not on file Sexual Orientation Not on file documented as of this encounter Miscellaneous Notes * Cerner Conversion Note - Melanie ProviderMD - 05/31/2019 2:04 AM COMMERCIAL JOURNEYMAN ELECTRICIAN Event Note Entered On: 05/31/2019 2:07 EST Performed On: 05/31/2019 2:04 EST by Kristofer Lau RN Event Note Event Date/Time : 05/30/2019 20:30 EST Event Location : Assigned room Event Details : Other: Description of Event : Patient complains of delay in administering pain medicine When patient's CALLISTHENICS INSTRUCTOR dilaudid was about to finish, a request [...] 05/31/2019 2:04 EST Electronically signed by Angel, [facility] Conversion Faculty Support Coordinator Cerner at 09/05/2022 2:23 PM CDT documented in this encounter Plan of Treatment Not on file documented as of this encounter Visit Diagnoses Not on filedocumented in this encounter
--- OUTSIDE RECORDS SUMMARY | 2024-11-04 19:59 | XMS_ITS | Referral Summary ---
Author Organization [employer] Address [address] [place] [address] Care Team Providers Care Radiological Technician Name [...]
--- OUTSIDE RECORDS SUMMARY | 2024-11-04 19:59 | XMS_ITS | Clinical Summary ---
Author Organization [employer] Address [address] [place] [address] Care Team Providers Care Planer Operator Name Role Phone Unavailable Primary Care [...]
--- OUTSIDE RECORDS SUMMARY | 2024-11-04 19:59 | XMS_ITS | Encounter Summary ---
Author Organization [employer] Address [address] [place] [address] Care Team Providers Care Mortuary Beautician Name Role Phone Unavailable Primary Care Provider Unavailabl e Encounter Details Date Type Department Care Team (Late st Contact Info) Description 09/06/2018 Transcribed Document [facility] [place] [address] [place] [address] ProviderMelanie MD [facility] [place] [address] Social History Tobacco Use Types Packs/Day Years [...] no sleepiness and scores 4/24 in the [place] Sleepiness Scale. He previously had noted insomnia [...] 6. Melatonin. 7. Tradjenta. 8. Glimepiride. 9. [place]. 10. Omeprazole. 11. Bupropion. 12. Janumet. 13. [...]
--- OUTSIDE RECORDS SUMMARY | 2024-11-04 19:59 | XMS_ITS | Encounter Summary ---
Author Organization [employer] Address [address] [place] [address] Care Team Providers Care Cut Off Man Name Role Phone Unavailable Primary Care Provider Unavailabl e Encounter Details Date Type Department Care Team (Late st Contact Info) Description 04/08/2019 Transcribed Document [facility] [place] [address] [place] [address] ProviderMelanie MD [facility] [place] [facility] [place], [place] [address] Social History Tobacco Use Types Packs/Day Years Used Date Smoking Tobacco: Never Assessed Sex and Gender Information Value Date Recorded Sex Assigned at Not on file Legal Sex Male 4:07 PM CDT Gender Identity Not on file Sexual Orientation Not on file documented as of this encounter Miscellaneous Notes * Cerner Conversion Note - Historical ProviderMD - 04/08/2019 2:47 PM MOLDING ROOM SUPERVISOR documented in this encounter Plan of Treatment Not on file documented as of this encounter Visit Diagnoses Not on filedocumented in this encounter
--- OUTSIDE RECORDS SUMMARY | 2024-11-04 19:59 | XMS_ITS | Encounter Summary ---
Author Organization [employer] Address [address] [place] [address] Care Team Providers Care Tanning Wheel Operator Name Role Phone Unavailable Primary Care Provider Unavailabl e Encounter Details Date Type Department Care Team (Late st Contact Info) Description 06/28/2019 Transcribed Document [facility] [place] [address] [place] [address] ProviderMelanie MD [address] [place] [address] Social History Tobacco Use Types Packs/Day Years Used Date Smoking Tobacco: Never Assessed Sex and Gender Information Value Date Recorded Sex Assigned at Not on file Legal Sex Male 4:07 PM CDT Gender Identity Not on file Sexual Orientation Not on file documented as of this encounter Miscellaneous Notes * Cerner Conversion Note - Melanie ProviderMD - 06/28/2019 11:16 PM HYSTER MACHINE OPERATOR Patient: TERRI VARGAS Age: 59 years Sex: [...] % 33.5 % Lymph # 2.97 x10(3)/uL Henry % 7.4 % Henry # 0.66 K/uL Eos % 5.1 % [...]
--- OUTSIDE RECORDS SUMMARY | 2024-11-04 19:59 | XMS_ITS | Encounter Summary ---
Author Organization [employer] Address [address] [place] [address] Care Team Providers Care Gas Leak Tester Name Role Phone Unavailable Primary Care Provider Unavailabl e Encounter Details Date Type Department Care Team (Late st Contact Info) Description 04/08/2019 Transcribed Document [facility] [place] [address] [place] [address] ProviderMelanie MD [address] [place] [address] Social History Tobacco Use Types Packs/Day Years Used Date Smoking Tobacco: Never Assessed Sex and Gender Information Value Date Recorded Sex Assigned at Not on file Legal Sex Male 4:07 PM CDT Gender Identity Not on file Sexual Orientation Not on file documented as of this encounter Miscellaneous Notes * Cerner Conversion Note - Melanie Grider MD - 04/08/2019 11:01 AM HYDRAULIC PRESS TENDER Patient: TERRI MOREL Age: 59 years Sex: [...] history Cardiovascular. Surgical history: Right total orchiectomy ([id number]). Repair of right inguinal hernia ([id number]). Hydrocele ([id number]). CABG (Coronary artery bypass grafting) planned ([id number]).. Family history: No family history items have [...] Color Yellow Urine Appearance Clear Urine Specific [place] >1.030 HI Urine pH Dipstick 6.0 Urine [...] % 19.5 % Lymph # 2.22 x10(3)/uL Alfalfa % 8.9 % Alfalfa # 1.01 K/uL HI Eos % 4.0 % Eos # 0.46 x10(3)/uL Baso % 0.6 % Baso # 0.07 x10(3)/uL nRBC 0.020 HI Slide Review No IG# 0.08 x10(3)/uL HI IG% 0.70 % HI PT 10.3 Second(s) INR 1.0 PTT 29.6 Second(s) . Radiology results: Radiology Results (Last 48 hours) [id number] -- 04/08/2019 10:42 US Scrotum and Contents [...] EST, Discharge to: Home . Prescriptions: Prescription [facility]: [facility] rectal enema (Prescribe): [...]
--- OUTSIDE RECORDS SUMMARY | 2024-11-04 19:59 | XMS_ITS | Encounter Summary ---
Author Organization [employer] Address [address] [place] [address] Care Team Providers Care School Speech Therapist Name Role Phone Unavailable Primary Care Provider Unavailabl e Encounter Details Date Type Department Care Team (Late st Contact Info) Description 06/29/2019 Transcribed Document [facility] [place] Family [place] [address] [place] [address] ProviderMelanie MD [address] [place] [id number] Social History Tobacco Use Types Packs/Day Years Used Date Smoking Tobacco: Never Assessed Sex and Gender Information Value Date Recorded Sex Assigned at Not on file Legal Sex Male 4:07 PM CDT Gender Identity Not on file Sexual Orientation Not on file documented as of this encounter Miscellaneous Notes * Cerner Conversion Note - Historical ProviderMD - 06/29/2019 12:06 AM REGULATORY COMPLIANCE COORDINATOR ED Event Note Entered On: 06/29/2019 0:09 EST Performed On: 06/29/2019 0:06 EST by Layla Vick MIDDLE SCHOOL GUIDANCE COUNSELOR Event Note ED Event Date/Time : 06/29/2019 [...] for a visit I will get a transformer inspector I am not kidding. Pt educated on implications r/t AMA, pt proceeds to get dressed and exit ED. Layla Vick RN - 06/29/2019 0:06 EST Electronically signed by Angel [facility] Conversion Paediatric Physiotherapist Cerner at 09/05/2022 2:03 PM CDT documented in this encounter Plan of Treatment Not on file documented as of this encounter Visit Diagnoses Not on filedocumented in this encounter
--- OUTSIDE RECORDS SUMMARY | 2024-11-04 19:59 | XMS_ITS | Encounter Summary ---
Author Organization [employer] Address [address] [place] [address] Care Team Providers Care Otc Clerk Name Role Phone Unavailable Primary Care Provider Unavailabl e Encounter Details Date Type Department Care Team (Late st Contact Info) Description 06/29/2019 Transcribed Document [facility] [place] Family Medicine [address] [place] [address] ProviderMelanie MD [facility] [place] [address] Social History Tobacco Use Types Packs/Day Years Used Date Smoking Tobacco: Never Assessed Sex and Gender Information Value Date Recorded Sex Assigned at Not on file Legal Sex Male 4:07 PM CDT Gender Identity Not on file Sexual Orientation Not on file documented as of this encounter Miscellaneous Notes * Cerner Conversion Note - Historical ProviderMD - 06/29/2019 12:12 AM MECHANICAL AND AUTO BODY CAR CHECKER ED Discharge Entered On: 06/29/2019 0:12 EST Performed On: 06/29/2019 0:12 EST by Layla Vick, rehab consultant Process Patient Disposition : AMA/Elope/LWBS Personal Belongings [...] Layla Vick RN - 06/29/2019 0:12 EST documented in this encounter Plan of Treatment Not on file documented as of this encounter Visit Diagnoses Not on filedocumented in this encounter
--- OUTSIDE RECORDS SUMMARY | 2024-11-04 19:59 | XMS_ITS | Encounter Summary ---
Author Organization [employer] Address [address] [place] [address] Care Team Providers Care Dermatology Sales Representative Name Role Phone Unavailable Primary Care Provider Unavailabl e Encounter Details Date Type Department Care Team (Late st Contact Info) Description 04/08/2019 Transcribed Document [facility] [place] [address] [place] [address] ProviderMelanie MD [facility] [place], [place] [address] Social History Tobacco Use Types Packs/Day Years Used Date Smoking Tobacco: Never Assessed Sex and Gender Information Value Date Recorded Sex Assigned at Not on file Legal Sex Male 4:07 PM CDT Gender Identity Not on file Sexual Orientation Not on file documented as of this encounter Miscellaneous Notes * Cerner Conversion Note - Historical ProviderMD - 04/08/2019 11:03 AM MAPPER Pain Assessment Entered On: 04/08/2019 12:31 EST [...]
--- OUTSIDE RECORDS SUMMARY | 2024-11-04 19:59 | XMS_ITS | Encounter Summary ---
Author Organization [employer] Address [address] [place] [address] Care Team Providers Care Manager Enterprise Name Role Phone Unavailable Primary Care Provider Unavailabl e Encounter Details Date Type Department Care Team (Late st Contact Info) Description 04/08/2019 Transcribed Document [facility] [place] [address] [place] [address] ProviderMelanie MD [facility] [place], [place] [address] Social History Tobacco Use Types Packs/Day Years Used Date Smoking Tobacco: Never Assessed Sex and Gender Information Value Date Recorded Sex Assigned at Not on file Legal Sex Male 4:07 PM CDT Gender Identity Not on file Sexual Orientation Not on file documented as of this encounter Miscellaneous Notes * Cerner Conversion Note - Melanie ProviderMD - 04/08/2019 10:42 AM SOCIAL MEDIA SPECIALIST ED Assessment Entered On: 04/08/2019 10:57 EST [...] Communication Barrier : None Primary Language : Mexican Any Spiritual/Cultural Needs or Requests : No [...]
--- OUTSIDE RECORDS SUMMARY | 2024-11-04 19:59 | XMS_ITS | Encounter Summary ---
Author Organization [employer] Address [address] [place] [id number] Care Team Providers Care Women'S Lacrosse Coach Name Role Phone Unavailable Primary Care Provider Unavailabl e Encounter Details Date Type Department Care Team (Late st Contact Info) Description 06/28/2019 Transcribed Document [facility] [place] Family Medicine [address] [place] [address] ProviderMelanie MD [address] [place] [address] Social History Tobacco Use Types Packs/Day Years Used Date Smoking Tobacco: Never Assessed Sex and Gender Information Value Date Recorded Sex Assigned at Not on file Legal Sex Male 4:07 PM CDT Gender Identity Not on file Sexual Orientation Not on file documented as of this encounter Miscellaneous Notes * Cerner Conversion Note - Historical ProviderMD - 06/28/2019 10:50 PM SPLICER APPRENTICE [place] Suicide Severity Rating Scale (C-SSRS) Entered On: 06/28/2019 23:13 EST Performed On: 06/28/2019 23:09 EST by Layla Vick RN [place] Suicide Severity Rating Scale (C-SSRS) CSSRS Past Month Wish to be : No CSSRS Past Month Suicidal Thoughts : No CSSRS Lifetime Suicide Behavior : No Suicide Severity Rating Score : 0 Suicide Severity Rating : No Additional Care Required at this time Layla Vick RN - 06/28/2019 23:09 EST Electronically signed by Angel [facility] Conversion Unmanned Aircraft Systems Roboticist Cerner at 09/05/2022 2:21 PM CDT documented in this encounter Plan of Treatment Not on file documented as of this encounter Visit Diagnoses Not on filedocumented in this encounter
--- OUTSIDE RECORDS SUMMARY | 2024-11-04 19:59 | XMS_ITS | Encounter Summary ---
Author Organization [employer] Address [address] [place] [address] Care Team Providers Care Electrical Foreman Name Role Phone Unavailable Primary Care Provider Unavailabl e Encounter Details Date Type Department Care Team (Late st Contact Info) Description 06/28/2019 Transcribed Document [facility] [place] Family Medicine [address] [place] [address] ProviderMelanie MD [address] [place] [address] [id number] Social History Tobacco Use Types Packs/Day Years Used Date Smoking Tobacco: Never Assessed Sex and Gender Information Value Date Recorded Sex Assigned at Not on file Legal Sex Male 4:07 PM CDT Gender Identity Not on file Sexual Orientation Not on file documented as of this encounter Miscellaneous Notes * Cerner Conversion Note - Historical ProviderMD - 06/28/2019 11:30 AM PART TIME FLEXIBLE CLERK ED Event Note Entered On: 06/29/2019 0:07 EST Performed On: 06/28/2019 11:30 EST by KEN REBOLLEDO ED Event Note ED Event Date/Time : 06/28/2019 11:30 EST ED Description of Event : pt requesting pain medication, refused Ibuprofen. MD Jackson aware. KEN REBOLLEDO - 06/29/2019 0:06 EST Electronically signed by Angel [facility] Conversion Assistant Customer Service Manager Cerner at 09/05/2022 2:30 PM CDT documented in this encounter Plan of Treatment Not on file documented as of this encounter Visit Diagnoses Not on filedocumented in this encounter
--- OUTSIDE RECORDS SUMMARY | 2024-11-04 19:59 | XMS_ITS | Encounter Summary ---
Author Organization [employer] Address [address] [place] [address] Care Team Providers Care Alteration Specialist Name Role Phone Unavailable Primary Care Provider Unavailabl e Encounter Details Date Type Department Care Team (Late st Contact Info) Description 04/08/2019 Transcribed Document [facility] [place] Family Medicine [address] [place] [address] ProviderMelanie MD [facility] [place] [address] Social History Tobacco Use Types Packs/Day Years Used Date Smoking Tobacco: Never Assessed Sex and Gender Information Value Date Recorded Sex Assigned at Not on file Legal Sex Male 4:07 PM CDT Gender Identity Not on file Sexual Orientation Not on file documented as of this encounter Miscellaneous Notes * Cerner Conversion Note - Historical ProviderMD - 04/08/2019 3:10 PM L TACKER ED Discharge Entered On: 04/08/2019 15:10 EST [...]
--- OUTSIDE RECORDS SUMMARY | 2024-11-04 19:59 | XMS_ITS | Encounter Summary ---
Author Organization [employer] Address [address] [place] [address] Care Team Providers Care Rib Bender Name Role Phone Unavailable Primary Care Provider Unavailabl e Encounter Details Date Type Department Care Team (Late st Contact Info) Description 04/08/2019 Transcribed Document [facility] [place] Family Medicine [address] [place] [address] ProviderMelanie MD [address] [place] [address] Social History Tobacco Use Types Packs/Day Years Used Date Smoking Tobacco: Never Assessed Sex and Gender Information Value Date Recorded Sex Assigned at Not on file Legal Sex Male 4:07 PM CDT Gender Identity Not on file Sexual Orientation Not on file documented as of this encounter Miscellaneous Notes * Cerner Conversion Note - Melanie Grider MD - 04/08/2019 3:10 PM WEB APPLICATIONS ARCHITECT [facility] [place] [address] TERRI MOREL :1960 Visit Time:04/08/2019 [...] Within 3 to 5 days Where: [address] [facility] [place] [address]- Business (1) Follow Up with SUKHJINDER SHRESTHA When Within 2 to 3 days Where: [address] [place] [address]- x8 Business (1) Allergies No Known Allergies [...] range between ( 0.0 and 7.0 ) [place] #: 1.01 K/uL -- Normal range between ( 0.16 and 1.00 ) Eos #: 0.46 x10(3)/uL -- Normal range between ( 0.00 and 0.80 ) [place] %: 8.9 % -- Normal range between [...] ) Urine Bilirubin Dipstick: Negative Urine Specific [place]: >1.030 -- Normal range between ( 1.005 [...] Do not hold it in. ??? Take ogvr-fcz-rhqbzpa and prescription medicines only as told by [...] 01/30/2005 Document Revised: 11/21/2016 Document Reviewed: 10/22/2016 [employer] Patient Education ?? 2019 [employer] Scrotal Hematoma Scrotal hematoma is a [...] minutes, 2???3 times a day. ??? Take hziz-wqq-bsarxdd and prescription medicines only as told by [...] 08/03/2007 Document Revised: 08/11/2017 Document Reviewed: 08/11/2017 [employer] Patient Education ?? 2019 [employer] Emergency Awareness and Preventative Care STROKE [...] Assistance with quitting is available by contacting 5-804-FBNYNOW. This is a free resource providing counseling, support, and referral. Or you may contact your personal physician. [place] Suicide Prevention Lifeline: The National Suicide Prevention [...] was given the opportunity to ask questions. Patient/Composite Technician Name: Patient/Composite Technician Signature: Relationship to Patient: Clinician/Hospital Composite Technician Signature: Please Provide a Telephone Number Where You Can Be Reached: Is it Permissible To Leave a Message? Date: Electronically signed by Interface, [facility] Conversion Mine Inspector Federal Olivianer at 09/05/2022 2:15 PM CDT documented in this encounter Plan of Treatment Not on file documented as of this encounter Visit Diagnoses Not on filedocumented in this encounter
--- OUTSIDE RECORDS SUMMARY | 2024-11-04 19:59 | XMS_ITS | Encounter Summary ---
Author Organization [employer] Address [address] [place] [address] Care Team Providers Care Department Store Salesperson Name Role Phone Unavailable Primary Care Provider Unavailabl e Encounter Details Date Type Department Care Team (Late st Contact Info) Description 09/27/2019 Transcribed Document [facility] [place] Family Medicine [address] [place] [address] ProviderMelanie MD [facility] [place], [place] [address] Social History Tobacco Use Types Packs/Day Years [...] 8. Melatonin. 9. Tradjenta. 10. Glimepiride. 11. [place]. 12. Omeprazole. 13. Buprenorphine. 14. Januvia. 15. [...] up in 1 year and as needed. Vlpd-ou-xuvj time today was 15 minutes with more than half of this in counseling regarding smoking and his use of CPAP. /[id number] MD JANES Jeffrey/LESLEY / JS / MODL /[id number] CC: José Elizabeth MD documented in this encounter Plan of Treatment Not on file documented as of this encounter Visit Diagnoses Not on filedocumented in this encounter
--- OUTSIDE RECORDS SUMMARY | 2024-11-04 19:59 | XMS_ITS | Encounter Summary ---
Author Organization [employer] Address [address] [place] [address] Care Team Providers Care Full Service Vending Driver Name Role Phone Unavailable Primary Care Provider Unavailabl e Reason for Referral * Consultation (Routine) - Closed Specialty Diagnoses / Procedures Referred By Contac t Referred To Contact Psychology / Behavioral Health Diagnoses Other chronic pain Rick Jacobo MD [address] [address] [place] [address] Phone: tel: fax: Tresa Herrera, [place] [address] [place] [address] Phone: tel: fax: Referral ID Status Reason Start Date Expiration Date V isits Requested Visits Authorized [id number] Closed Specialty Services Required 04/01/2023 09/28/2023 1 1 Encounter Details Date Type Department Care Team (Late st Contact Info) Description 04/01/2023 Outside Orders [facility] Central Scheduling [address] [place] [address] Rick Jacobo MD [address] [address] [place] [address] Other chronic pain (Primary Dx); Chronic pain [...]
--- OUTSIDE RECORDS SUMMARY | 2024-11-04 19:59 | XMS_ITS | Clinical Summary ---
Author Organization [facility] Address [address] [place] [address] Phone Care Team Providers Care Production Line Operator Name Role Phone Darnell Elizabeth MD Primary Care Provider [phone] Allergies Active Allergy Reactions Criticality Noted Date [...] patient's age to complete this topic Insurance [facility] [place] [employer] Care Teams Production Line Operator Relationship Specialty Start Date End Date Darnell Elizabeth MD [address] [place] [address] PCP - General Internal Medicine 12/31/12
--- OUTSIDE RECORDS SUMMARY | 2024-11-04 19:59 | XMS_ITS | Encounter Summary ---
Author Organization [employer] Address [address] [place] [address] Care Team Providers Care Salt Machine Operator Name Role Phone Unavailable Primary Care Provider Unavailabl e Encounter Details Date Type Department Care Team (Late st Contact Info) Description 04/08/2019 Transcribed Document [facility] [place] [address] [place] [address] ProviderMelanie MD [facility] [place], [place] [id number] Social History Tobacco Use Types Packs/Day Years Used Date Smoking Tobacco: Never Assessed Sex and Gender Information Value Date Recorded Sex Assigned at Not on file Legal Sex Male 4:07 PM CDT Gender Identity Not on file Sexual Orientation Not on file documented as of this encounter Miscellaneous Notes * Cerner Conversion Note - Melanie ProviderMD - 04/08/2019 10:42 AM AREA CLEANER ED Triage Entered On: 04/08/2019 10:52 EST [...] - Urgent Tracking Group : [facility] ED KEN REBOLLEDO - 04/08/2019 10:49 EST [...] Onset Date: Unspecified ; Created By: CONTRIBUTOR_SYSTEM, HIST_Mosa RecordsMIHIR; Reaction Status: Active ; Category: Drug ; [...] PNED ; Probability: 0 ; Diagnosis Code: [id number] ED Height and Weight Height Source : Stated Height Entry Format : [place] Height, Feet : 5 ft(Converted to: 152 cm, 60 Inch) Height, Inches : 11 Inch(Converted to: 0 ft 11 Inch, 27.94 cm) Clinical Height : 180.34 cm Weight Source, ED : Critical estimated dosing weight Weight Entry Format : [place] Weight, Pounds : 230 lb Clinical Dosing Weight : 104.55 kg Body Surface Area (BSA) : 2.24 m2 Body Mass Index : 32.1 kg/m2 (HI) [place] Body Weight (IBW) : 74.31 kg KEN REBOLLEDO - 04/08/2019 10:49 EST documented in this encounter Plan of Treatment Not on file documented as of this encounter Visit Diagnoses Not on filedocumented in this encounter
--- NOTE | 2024-11-04 20:02 | XR_ITS ---
PROCEDURE INFORMATION: Exam: XR Chest Exam date and time: 11/04/2024 8:05 PM Age: 64 years old Clinical indication: Pain; Left-sided; Additional info: Cp TECHNIQUE: Imaging protocol: Radiologic exam of the chest. Views: 1 view. COMPARISON: CT ANGIO CHEST 10/25/2024 8:56 PM FINDINGS: Tubes, catheters and devices: Left chest wall cardiac pacing device. Lungs: No consolidation. Pleural spaces: No pleural effusion. No pneumothorax. Heart/Mediastinum: Stable cardiomediastinal contours. Bones/joints: Old rib fractures. IMPRESSION: No acute findings.
--- NOTE | 2024-11-04 20:03 | [facility].EDCP ---
Discharge Plan Disposition Patient Disposition: Home, Self-Care Condition: Good Prescriptions Prescriptions: No Action metformin 500 mg tablet extended release 24 hr 500 mg PO BID atorvastatin 40 mg tablet See Rx Instructions .ROUTE .COMPLEX Qty: 90 3RF Dose Instruction: TAKE 1 TABLET BY MOUTH ONCE DAILY Rx Instructions: TAKE 1 TABLET BY MOUTH ONCE DAILY carvedilol 12.5 mg tablet 12.5 mg PO BID Qty: 180 3RF clopidogrel 75 mg tablet 75 mg PO DAILY Qty: 90 0RF Entresto 97-103 mg tablet See Rx Instructions .ROUTE .COMPLEX Qty: 180 3RF Dose Instruction: TAKE ONE TABLET BY MOUTH TWICE DAILY Rx Instructions: TAKE ONE TABLET BY MOUTH TWICE DAILY spironolactone 50 mg tablet See Rx Instructions .ROUTE .COMPLEX Qty: 90 5RF Dose Instruction: TAKE ONE TABLET BY MOUTH EVERY DAY Rx Instructions: TAKE ONE TABLET BY MOUTH EVERY DAY oxycodone-acetaminophen 10-325 mg tablet 1 tab PO QID insulin glargine 100 unit/mL (3 mL) insulin pen 10 unit SQ HS Qty: 3 2RF (DME) OneTouch Ultra Test Strip See Rx Instructions .Route Qty: 50 8RF Rx Instructions: test sugar qid insulin regular human 100 unit/mL (3 mL) insulin pen 1 sliding scale dose SQ USEASDIRECTD Qty: 15 2RF Rx Instructions: give 10 U subq for before meal up q 4-6 hours if fingerstick glucose reading is above 300 Ozempic 0.25 mg or 0.5 mg (2 mg/3 mL) pen injector 0.25 mg SQ WEEKLY Qty: 3 0RF Rx Instructions: for 4 weeks (DME) OneTouch Ultra Test Strip See Rx Instructions .Route Qty: 50 2RF Rx Instructions: daily testing varenicline tartrate 1 mg tablet See Rx Instructions .ROUTE .COMPLEX Qty: 56 3RF Dose Instruction: TAKE 1 TABLET BY MOUTH TWICE DAILY Rx Instructions: TAKE 1 TABLET BY MOUTH TWICE DAILY omeprazole 40 mg capsule,delayed release(DR/EC) See Rx Instructions .ROUTE .COMPLEX Qty: 180 1RF Dose Instruction: TAKE 1 CAPSULE BY MOUTH TWICE DAILY - SWALLOW WHOLE; DO NOT CRUSH, CHEW, DISSOLVE, CUT, BREAK Rx Instructions: TAKE 1 CAPSULE BY MOUTH TWICE DAILY - SWALLOW WHOLE; DO NOT CRUSH, CHEW, DISSOLVE, CUT, BREAK duloxetine 60 mg capsule,delayed release(DR/EC) See Rx Instructions .ROUTE .COMPLEX Qty: 90 1RF Dose Instruction: TAKE 1 CAPSULE BY MOUTH ONCE DAILY Rx Instructions: TAKE 1 CAPSULE BY MOUTH ONCE DAILY Jardiance 25 mg tablet See Rx Instructions .ROUTE .COMPLEX Qty: 90 3RF Dose Instruction: TAKE 1 TABLET BY MOUTH ONCE DAILY Rx Instructions: TAKE 1 TABLET BY MOUTH ONCE DAILY (DME) pen needle, diabetic [Comfort Touch Pen Needle] 31 gauge x 5/32 needle See Rx Instructions .Route Qty: 100 6RF Rx Instructions: As directed, ONCE DAILY glimepiride 4 mg tablet See Rx Instructions .ROUTE .COMPLEX Qty: 90 0RF Dose Instruction: TAKE 1 TABLET BY MOUTH ONCE DAILY Rx Instructions: TAKE 1 TABLET BY MOUTH ONCE DAILY magnesium 500 mg Tablet 500 mg PO DAILY aspirin 325 mg Tablet 325 mg PO DAILY potassium 99 mg Tablet 99 mg PO BID nitroglycerin 0.4 mg Tablet, Sublingual See Rx Instructions .ROUTE .COMPLEX Rx Instructions: 0.4 mg sublingually gabapentin 600 mg tablet 600 mg PO QID methocarbamol 750 mg tablet 750 mg PO Q6H PRN (Reason: muscle spasm) Qty: 20 0RF Referrals Follow up/Referrals: Provider,Referral, [Referring, Medical] - See instructions Osvaldo Holly MD [Staff Physician, Cardiology] - See instructions Activity Restrictions/Add. Instructions Additional Instructions/Restrictions: You were evaluated in the emergency department today. As we discussed, the symptoms that you are having are very concerning. Please follow-up closely with cardiology as well as with primary care. Return to the emergency department right away for new or worsening symptoms. Clinical Impressions Clinical Impression: Chest pain, Arm pain, right Stand Alone Forms Stand Alone Forms: Work/School Release Instructions Patient Instructions: DI for Atypical Chest Pain, DI for Chest Pain Print Language Print Language: Moroccan Discharge ED Provider: Shari White HPI <Adri Ruiz, MICAH - Last Filed: 11/04/24 22:00> General Chief Complaint: Chest Pain Stated Complaint: chest pain Time Seen by Provider: 11/04/24 19:55 Mode of Arrival: Family Vehicle Source of Information: Patient Description of Symptoms (Recalled from ER Triage Doc. by RN): Central chest pain with radiation to the right arm for the last hour, started while laying in bed. Hx stents. Did not take his nitro History of Present Illness HPI narrative: patient is a 64-year-old male PMHx HFrEF, AICD, COPD, history of NV, CAD, LV dysfunction, obesity, history of tobacco use, HTN, HLD, diabetes, currently taking blood thinners who presents to the ED with complaints of centrally located chest pain that radiates down his right arm, reports has been present for 1 hour prior to arrival. Patient also reports that he has a frontal headache that has been present all day today. Denies taking any thing for symptomatic relief at home. Related Data Home Medications ?Medication ?Instructions ?Recorded ?Confirmed gabapentin 600 mg tablet 600 mg PO QID 09/03/23 11/04/24 aspirin 325 mg tablet 325 mg PO DAILY 02/17/24 11/04/24 magnesium 500 mg tablet 500 mg PO DAILY 02/17/24 11/04/24 nitroglycerin 0.4 mg sublingual See Rx Instructions .Route .COMPLEX 02/17/24 11/04/24 tablet potassium 99 mg tablet 99 mg PO BID 02/17/24 11/04/24 oxycodone-acetaminophen 10 mg-325 1 tab PO QID 02/24/24 11/04/24 mg tablet metformin 500 mg tablet,extended 500 mg PO BID 07/13/24 11/04/24 release 24 hr Previous Rx's ?Medication ?Instructions ?Recorded blood sugar diagnostic (OneTouch #50 ea 11/10/23 Ultra Test strips) atorvastatin 40 mg tablet See Rx Instructions .Route 07/13/24 .COMPLEX #90 ea carvedilol 12.5 mg tablet 12.5 mg PO BID #180 tabs 07/13/24 clopidogrel 75 mg tablet 75 mg PO DAILY #90 tabs 07/13/24 sacubitril 97 mg-valsartan 103 mg See Rx Instructions .Route 07/13/24 tablet (Entresto) .COMPLEX #180 tabs spironolactone 50 mg tablet See Rx Instructions .Route 07/13/24 .COMPLEX #90 tabs varenicline tartrate 1 mg tablet See Rx Instructions .Route 07/25/24 .COMPLEX #56 ea duloxetine 60 mg capsule,delayed See Rx Instructions .Route 08/22/24 release .COMPLEX #90 caps omeprazole 40 mg capsule,delayed See Rx Instructions .Route 08/22/24 release .COMPLEX #180 caps empagliflozin 25 mg tablet See Rx Instructions .Route 08/30/24 (Jardiance) .COMPLEX #90 tabs insulin glargine 100 unit/mL (3 10 unit (0.1 mL) SQ HS #3 mL 09/02/24 mL) subcutaneous pen pen needle, diabetic 31 gauge x #100 ea 09/02/24 (Comfort Touch Pen Needle) glimepiride 4 mg tablet See Rx Instructions .Route 09/19/24 .COMPLEX #90 tabs blood sugar diagnostic (OneTouch #50 ea 10/07/24 Ultra Test strips) insulin regular human 100 unit/mL 1 sliding scale dose SQ 10/07/24 (3 mL) subcutaneous pen USEASDIRECTD #15 mL semaglutide 0.25 mg or 0.5 mg (2 0.25 mg (0.368 mL) SQ WEEKLY #3 mL 10/07/24 mg/3 mL) subcutaneous pen injector (Ozempic) methocarbamol 750 mg tablet 750 mg PO Q6H PRN muscle spasm #20 10/31/24 tabs Allergies Allergy/AdvReac Type Severity Reaction Status Date / Time dobutamine AdvReac Unknown Hypertensio Verified 11/01/24 13:39 n [facility] <Adri Ruiz APRN - Last Filed: 11/04/24 22:00> [facility] Disclaimer: The information contained in this section may have been updated after the patient was seen, as this information can be updated by other users. Medical History Ear drainage right Generalized headaches Ear pain, right Pneumonia Cardiogenic shock On mechanically assisted ventilation Acute respiratory failure with hypoxia Abdominal pain Constipation Deviated nasal septum Hypertrophy of inferior nasal turbinate Sinusitis Mixed restrictive and obstructive lung disease Cardiac pacemaker in situ Pulmonary emphysema Smoking greater than 30 pack years Dyspnea on exertion Lung mass Nodule of right lung Right maxillary sinusitis HFrEF (heart failure with reduced ejection fraction) Impacted cerumen of right ear Dizziness Abnormal electrocardiogram [ECG] [EKG] ANNA (obstructive sleep apnea) Hyperlipidemia Depression Anxiety Gastroesophageal reflux disease Insomnia Coronary artery disease History of TIA (transient ischemic attack) Hypertension Diabetes mellitus Epididymitis Palpitations Opiate withdrawal TIA (transient ischemic attack) Surgical History History of removal of testicle History of hernia surgery History of cholecystectomy History of right mastoidectomy History of coronary artery bypass graft Family History Other Diabetes Social History Smoking Status: Current every day smoker tobacco type: cigarettes packs per day: 1 quit status: considering quitting alcohol intake: never substance use type: denies use current occupational status: disabled Travel in the last 8 weeks?: None household members: spouse and children housing: house Have you lived/traveled outside [place] in past 30 days?: No Contact w/someone who lives/traveled outside US past 30 days?: No Exposure to someone with infectious disease in past 14 days?: No Do you have a fever (greater than 100.4 F or 38 C)?: No Have you tested positive for COVID-19?: No Exposed to someone with COVID-19 in past 14 days?: No Do you have a sore throat?: No Do you have a cough?: No Do you have any weakness?: No Do you have any diarrhea?: No Are you experiencing any unusual bleeding?: No Do you have any muscle aches/pain?: No Do you have any abdominal pain?: No Are you experiencing loss of taste or smell?: No Other Medical History Have you received the Flu Vaccine for this season: No Have you received the Pneumonia Vaccine: Yes <Adri Ruiz APRN - Last Filed: 11/04/24 22:00> ROS Obtained: Yes Systems reviewed as appropriate & no additional complaints except as documented Physical Exam <Adri Ruiz APRN - Last Filed: 11/04/24 22:00> General General appearance: alert and in no apparent distress Comment: obese Head Head exam: atraumatic and normocephalic Eye Eye exam: Present normal appearance and PERRL ENT ENT exam: Present normal exam Neck Neck exam: Present normal inspection Chest Chest inspection: Present normal inspection and symmetric chest wall rise; Absent tenderness Respiratory Respiratory exam: Present normal lung sounds bilaterally Cardiovascular Cardiovascular exam: Present regular rate Abdominal Exam Abdominal exam: Present soft and normal bowel sounds; Absent tenderness Extremities Exam Extremities exam: Present normal inspection and full ROM Back Exam Back exam: Present normal inspection and full ROM Neurological Exam Neurological exam: Present alert and oriented X3 Psychiatric Psychiatric exam: Present normal affect and normal mood Skin Skin exam: Present warm and dry HEART Score <Adri Ruiz APRN - Last Filed: 11/04/24 22:00> HEART Score HEART Score assessment performed?: Yes History (anamnesis): Moderately suspicious ECG: Non-specific disturbance Age: 45-65 years Risk factors: 3 or more risk factors Troponin: </= normal limit HEART Score: 5 <Shari White DO - Last Filed: 11/04/24 23:39> HEART Score HEART Score: 5 Critical Care <Adri Ruiz APRN - Last Filed: 11/04/24 22:00> Critical Care Time Critical Care Time: No Medical Decision Making <Adri Ruiz APRN - Last Filed: 11/04/24 22:00> George Inquiry Pt receiving controlled substance: No Vital Signs Vital Signs: 11/04/24 19:58 11/04/24 20:01 11/04/24 20:02 Temperature 98 F Temperature Source Oral Pulse Rate 86 87 Pulse Rate [Radial] 87 Respiratory Rate 16 15 Blood Pressure 100/68 L Blood Pressure [Right Arm] 109/70 L Blood Pressure Mean 76 Blood Pressure Mean [Right Arm] 83 02 Sat by Pulse Oximetry 97 96 Oxygen Delivery Method Room Air 11/04/24 20:30 11/04/24 20:40 11/04/24 21:00 Temperature Temperature Source Pulse Rate 81 77 80 Pulse Rate [Radial] Respiratory Rate 13 16 14 Blood Pressure 89/48 L 81/47 L 88/49 L Blood Pressure [Right Arm] Blood Pressure Mean 61 60 61 Blood Pressure Mean [Right Arm] 02 Sat by Pulse Oximetry 95 94 L 95 Oxygen Delivery Method 11/04/24 21:02 11/04/24 21:20 11/04/24 21:30 Temperature Temperature Source Pulse Rate 78 77 64 Pulse Rate [Radial] Respiratory Rate 14 12 13 Blood Pressure 86/55 L 109/71 L 104/68 L Blood Pressure [Right Arm] Blood Pressure Mean 67 83 77 Blood Pressure Mean [Right Arm] 02 Sat by Pulse Oximetry 95 95 95 Oxygen Delivery Method 11/04/24 22:00 11/04/24 22:31 11/04/24 23:00 Temperature Temperature Source Pulse Rate 77 75 74 Pulse Rate [Radial] Respiratory Rate 18 14 19 Blood Pressure 117/72 94/51 L 124/72 Blood Pressure [Right Arm] Blood Pressure Mean 83 70 87 Blood Pressure Mean [Right Arm] 02 Sat by Pulse Oximetry 96 96 97 Oxygen Delivery Method 11/04/24 23:31 Temperature 98 F Temperature Source Pulse Rate 74 Pulse Rate [Radial] Respiratory Rate 19 Blood Pressure 124/72 Blood Pressure [Right Arm] Blood Pressure Mean Blood Pressure Mean [Right Arm] 02 Sat by Pulse Oximetry Oxygen Delivery Method Room Air Lab Data Labs: Lab Results 11/04/24 20:00: WBC 7.4, RBC 5.33, Hgb 15.4, Hct 47.8, MCV 89.7, MCH 28.9, MCHC 32.2, RDW 14.6, Plt Count 174, MPV 12.3 H, Neut % (Auto) 70.4, Lymph % (Auto) 17.2, [place] % (Auto) 10.1 H, Eos % (Auto) 1.4, Baso % (Auto) 0.5, Neut # (Auto) 5.2, Lymph # (Auto) 1.3, [place] # (Auto) 0.8, Eos # (Auto) 0.1, Baso # (Auto) 0.0, PT 11.2, INR 1.01, APTT 25.9, Sodium 134 L, Potassium 4.7, Chloride 100, Carbon Dioxide 26, Anion Gap 12.7, BUN 47 H, Creatinine 1.60 H, Estimated Creat Clear 67, Estimated GFR 44 L, Est GFR ( Amer) 53 L, Glucose 421 H*, Calcium 9.6, Total Bilirubin 0.6, AST 25, ALT 23, Alkaline Phosphatase 125, Troponin I 0.01, NT-Pro-B Natriuret Pep 378 H, Total Protein 8.5 H, Albumin 4.6, Globulin 3.9 H, Albumin/Globulin Ratio 1.2, Triglycerides 238 H, Cholesterol 143, LDL Cholesterol Direct 66.11 L, VLDL Cholesterol 48 H, HDL Cholesterol 29 L, Cholesterol/HDL Ratio 4.9 H 11/04/24 21:30: Urine Color Yellow, Urine Appearance Clear, Urine pH 6.0, Ur Specific [place] <= 1.005, Urine Protein Negative, Urine Glucose (UA) 3+, Urine Ketones Negative, Urine Blood Negative, Urine Nitrate Negative, Urine Bilirubin Negative, Urine Urobilinogen 0.2, Ur Leukocyte Esterase Negative, Urine RBC None, Urine WBC None, Ur Squamous Epith Cells None, Urine Bacteria Trace 11/04/24 22:50: Troponin I 0.01 11/04/24 20:00 11/04/24 20:00 Response Orders (Tests/Meds): ED MEDICATIONS Discontinued Medications Generic Name Dose Route Start Last Admin Trade Name Frecesario PRN Reason Stop Dose Admin Acetaminophen 1,000 mg 11/04/24 20:12 11/04/24 20:15 Acetaminophen 1,000mg/100ml Vial IV 11/04/24 20:13 1,000 mg ONCE ONE Administration Diphenhydramine HCl 50 mg 11/04/24 21:41 11/04/24 21:43 Diphenhydramine 50mg/Ml Vial IV 11/04/24 21:42 50 mg ONCE ONE Administration Morphine Sulfate 4 mg 11/04/24 21:26 11/04/24 21:32 Morphine 4mg/Ml Syringe IV 11/04/24 21:27 4 mg ONCE ONE Administration Nitroglycerin 0.4 mg 11/04/24 20:02 11/04/24 20:14 Nitroglycerin 0.4mg Sl Tablet SL 11/05/24 20:02 0.4 mg Q5MINP PRN Administration Chest Pain ORDERS Category Date Time Status XR chest portable Stat Exams 11/04/24 20:02 Completed Activated Partial Thrombo Time Stat Lab 11/04/24 20:00 Completed Complete Blood Count Auto Diff Stat Lab 11/04/24 20:00 Completed Comprehensive Metabolic Panel Stat Lab 11/04/24 20:00 Completed Lipid Panel Stat Lab 11/04/24 20:00 Completed NT Pro Brain Natriuretic Pep. Stat Lab 11/04/24 20:00 Completed Prothrombin Time INR Stat Lab 11/04/24 20:00 Completed Troponin I Q3H Lab 11/04/24 22:50 Completed Troponin I Q3H Lab 11/05/24 02:15 Ordered Troponin I Stat Lab 11/04/24 20:00 Completed Urinalysis and Microscopic Stat Lab 11/04/24 21:30 Completed MDM Narrative Medical Decision Narrative: In summary, patient is a 64-year-old male PMHx HFrEF, AICD, COPD, history of NV, CAD, LV dysfunction, obesity, history of tobacco use, HTN, HLD, diabetes, currently taking blood thinners who presents to the ED with complaints of centrally located chest pain that radiates down his right arm, reports has been present for 1 hour prior to arrival. Patient also reports that he has a frontal headache that has been present all day today. Denies taking any thing for symptomatic relief at home. He also adds that he has blockages in his legs. Has not taken any Viagra or Cialis within the past 48 hours. Upon initial evaluation patient is alert, oriented and cooperative. He is stable, he is obese. Differential diagnosis include ACS, dissection, pneumonia, pneumothorax, infectious process, among others. Discussed with patient we will proceed with EKG, CXR, hematologic labs. Will symptomatically manage with nitro for chest pain. Records reviewed: Patient was evaluated in the ED on 10/31/2024 for inguinal pain at that time he had a CTA of the abdomen with runoff that was remarkable for complete occlusion of the right superficial femoral artery proximally with extensive vascular calcifications. On 10/25/2024 patient had a chest CTA which was unremarkable for any acute findings, advanced three-vessel coronary artery atherosclerotic disease. Today's hematologic labs reviewed, CBC unremarkable for any leukocytosis, stable H&H. Troponin < 0.01. CMP remarkable for sodium 134, BUN 47, creatinine 1.60 which is elevated from baseline of 1.40, GFR 44, glucose 421. BNP 378. Patient chest pain resolved after 1 dose of nitro. Heart score 5. Final read of the chest x-ray unremarkable for any acute findings. Upon another reevaluation, patient states that his chest pain is now a 7 out of 10. Patient given morphine IV, subsequently developed pruritic rash around IV site, patient was then given Benadryl for allergic reaction. Care transferred to Dr. White pending workup completion and dispo decision. <Shari White, DO - Last Filed: 11/04/24 23:39> Vital Signs Vital Signs: 11/04/24 19:58 11/04/24 20:01 11/04/24 20:02 Temperature 98 F Temperature Source Oral Pulse Rate 86 87 Pulse Rate [Radial] 87 Respiratory Rate 16 15 Blood Pressure 100/68 L Blood Pressure [Right Arm] 109/70 L Blood Pressure Mean 76 Blood Pressure Mean [Right Arm] 83 02 Sat by Pulse Oximetry 97 96 Oxygen Delivery Method Room Air 11/04/24 20:30 11/04/24 20:40 11/04/24 21:00 Temperature Temperature Source Pulse Rate 81 77 80 Pulse Rate [Radial] Respiratory Rate 13 16 14 Blood Pressure 89/48 L 81/47 L 88/49 L Blood Pressure [Right Arm] Blood Pressure Mean 61 60 61 Blood Pressure Mean [Right Arm] 02 Sat by Pulse Oximetry 95 94 L 95 Oxygen Delivery Method 11/04/24 21:02 11/04/24 21:20 11/04/24 21:30 Temperature Temperature Source Pulse Rate 78 77 64 Pulse Rate [Radial] Respiratory Rate 14 12 13 Blood Pressure 86/55 L 109/71 L 104/68 L Blood Pressure [Right Arm] Blood Pressure Mean 67 83 77 Blood Pressure Mean [Right Arm] 02 Sat by Pulse Oximetry 95 95 95 Oxygen Delivery Method 11/04/24 22:00 11/04/24 22:31 11/04/24 23:00 Temperature Temperature Source Pulse Rate 77 75 74 Pulse Rate [Radial] Respiratory Rate 18 14 19 Blood Pressure 117/72 94/51 L 124/72 Blood Pressure [Right Arm] Blood Pressure Mean 83 70 87 Blood Pressure Mean [Right Arm] 02 Sat by Pulse Oximetry 96 96 97 Oxygen Delivery Method 11/04/24 23:31 Temperature 98 F Temperature Source Pulse Rate 74 Pulse Rate [Radial] Respiratory Rate 19 Blood Pressure 124/72 Blood Pressure [Right Arm] Blood Pressure Mean Blood Pressure Mean [Right Arm] 02 Sat by Pulse Oximetry Oxygen Delivery Method Room Air Lab Data Labs: Lab Results 11/04/24 20:00: WBC 7.4, RBC 5.33, Hgb 15.4, Hct 47.8, MCV 89.7, MCH 28.9, MCHC 32.2, RDW 14.6, Plt Count 174, MPV 12.3 H, Neut % (Auto) 70.4, Lymph % (Auto) 17.2, [place] % (Auto) 10.1 H, Eos % (Auto) 1.4, Baso % (Auto) 0.5, Neut # (Auto) 5.2, Lymph # (Auto) 1.3, [place] # (Auto) 0.8, Eos # (Auto) 0.1, Baso # (Auto) 0.0, PT 11.2, INR 1.01, APTT 25.9, Sodium 134 L, Potassium 4.7, Chloride 100, Carbon Dioxide 26, Anion Gap 12.7, BUN 47 H, Creatinine 1.60 H, Estimated Creat Clear 67, Estimated GFR 44 L, Est GFR ( Amer) 53 L, Glucose 421 H*, Calcium 9.6, Total Bilirubin 0.6, AST 25, ALT 23, Alkaline Phosphatase 125, Troponin I 0.01, NT-Pro-B Natriuret Pep 378 H, Total Protein 8.5 H, Albumin 4.6, Globulin 3.9 H, Albumin/Globulin Ratio 1.2, Triglycerides 238 H, Cholesterol 143, LDL Cholesterol Direct 66.11 L, VLDL Cholesterol 48 H, HDL Cholesterol 29 L, Cholesterol/HDL Ratio 4.9 H 11/04/24 21:30: Urine Color Yellow, Urine Appearance Clear, Urine pH 6.0, Ur Specific [place] <= 1.005, Urine Protein Negative, Urine Glucose (UA) 3+, Urine Ketones Negative, Urine Blood Negative, Urine Nitrate Negative, Urine Bilirubin Negative, Urine Urobilinogen 0.2, Ur Leukocyte Esterase Negative, Urine RBC None, Urine WBC None, Ur Squamous Epith Cells None, Urine Bacteria Trace 11/04/24 22:50: Troponin I 0.01 Response Orders (Tests/Meds): ED MEDICATIONS Discontinued Medications Generic Name Dose Route Start Last Admin Trade Name Abhinavq PRN Reason Stop Dose Admin Acetaminophen 1,000 mg 11/04/24 20:12 11/04/24 20:15 Acetaminophen 1,000mg/100ml Vial IV 11/04/24 20:13 1,000 mg ONCE ONE Administration Diphenhydramine HCl 50 mg 11/04/24 21:41 11/04/24 21:43 Diphenhydramine 50mg/Ml Vial IV 11/04/24 21:42 50 mg ONCE ONE Administration Morphine Sulfate 4 mg 11/04/24 21:26 11/04/24 21:32 Morphine 4mg/Ml Syringe IV 11/04/24 21:27 4 mg ONCE ONE Administration Nitroglycerin 0.4 mg 11/04/24 20:02 11/04/24 20:14 Nitroglycerin 0.4mg Sl Tablet SL 11/05/24 20:02 0.4 mg Q5MINP PRN Administration Chest Pain ORDERS Category Date Time Status XR chest portable Stat Exams 11/04/24 20:02 Completed Activated Partial Thrombo Time Stat Lab 11/04/24 20:00 Completed Complete Blood Count Auto Diff Stat Lab 11/04/24 20:00 Completed Comprehensive Metabolic Panel Stat Lab 11/04/24 20:00 Completed Lipid Panel Stat Lab 11/04/24 20:00 Completed NT Pro Brain Natriuretic Pep. Stat Lab 11/04/24 20:00 Completed Prothrombin Time INR Stat Lab 11/04/24 20:00 Completed Troponin I Q3H Lab 11/04/24 22:50 Completed Troponin I Q3H Lab 11/05/24 02:15 Ordered Troponin I Stat Lab 11/04/24 20:00 Completed Urinalysis and Microscopic Stat Lab 11/04/24 21:30 Completed ECG Data Tracing #1: Attestation: I reviewed this ECG and interpreted as documented below: ECG Narrative: Normal sinus rhythm with a ventricular of 89 bpm. Left anterior fascicular block. No acute STEMI. Normal intervals otherwise. No significant change from prior EKG. ECG initial impression date: 11/04/24 ECG initial impression time: 19:55 Tracing #2: Attestation: I reviewed this ECG and interpreted as documented below: ECG Narrative: Normal sinus rhythm with a ventricular rate of 79 bpm. Left anterior fascicular block. No acute ST changes concerning for STEMI. No significant change from prior EKG. ECG initial impression date: 11/04/24 ECG initial impression time: 20:50 MDM Narrative Medical Decision Narrative: In summary, patient is a 64-year-old male PMHx HFrEF, AICD, COPD, history of NV, CAD, LV dysfunction, obesity, history of tobacco use, HTN, HLD, diabetes, currently taking blood thinners who presents to the ED with complaints of centrally located chest pain that radiates down his right arm, reports has been present for 1 hour prior to arrival. Patient also reports that he has a frontal headache that has been present all day today. Denies taking any thing for symptomatic relief at home. He also adds that he has blockages in his legs. Has not taken any Viagra or Cialis within the past 48 hours. Upon initial evaluation patient is alert, oriented and cooperative. He is stable, he is obese. Differential diagnosis include ACS, dissection, pneumonia, pneumothorax, infectious process, among others. Discussed with patient we will proceed with EKG, CXR, hematologic labs. Will symptomatically manage with nitro for chest pain. Records reviewed: Patient was evaluated in the ED on 10/31/2024 for inguinal pain at that time he had a CTA of the abdomen with runoff that was remarkable for complete occlusion of the right superficial femoral artery proximally with extensive vascular calcifications. On 10/25/2024 patient had a chest CTA which was unremarkable for any acute findings, advanced three-vessel coronary artery atherosclerotic disease. Today's hematologic labs reviewed, CBC unremarkable for any leukocytosis, stable H&H. Troponin < 0.01. CMP remarkable for sodium 134, BUN 47, creatinine 1.60 which is elevated from baseline of 1.40, GFR 44, glucose 421. BNP 378. Patient chest pain resolved after 1 dose of nitro. Heart score 5. Final read of the chest x-ray unremarkable for any acute findings. Upon another reevaluation, patient states that his arm pain is now a 7 out of 10, chest pain is resolved. Patient given morphine IV, subsequently developed pruritic rash around IV site, patient was then given Benadryl for allergic reaction. Care transferred to Dr. White pending workup completion and dispo decision. DO Christopher: I was consulted by the TANVIR, and we discussed the complexity of the problems being addressed. I approved the treatment and management plan for this patient's care in the emergency department, thus performing a substantive portion of the medical decision making. Second troponin resulted and is negative. Workup overall has been reassuring, but is very concerned that the patient has had chest pain with very high comorbidities. I offered him admission for cardiac monitoring and serial troponins, however he states that he is feeling much better and wants to go home. He states he will follow-up closely with cardiology. Given this, he was discharged via patient directed discharge with instructions for close follow-up outpatient and strict return precautions. Shari White DO
[2024-11-04 20:10] LABS: Basophils % 0.5 % (0.1-2.0); Eosinophils # 0.1 Kmm3 (0.0-0.4); Eosinophils % 1.4 % (0.1-12.0); Hematocrit 47.8 % (42.0-52.0); Hemoglobin 15.4 g/dL (14.1-18.0); Immature Granulocytes # 0.03 10^3uL; Immature Granulocytes % 0.4 %; Lymphocytes # 1.3 K/mm3 (0.7-4.5); Lymphocytes % 17.2 % (10-50); Mean Corpuscular HGB Conc 32.2 g/dL (31.8-35.4); Mean Corpuscular Hemoglobin 28.9 pg (27.0-31.2); Mean Corpuscular Volume 89.7 fl (80-94); Mean Platelet Volume 12.3 fl (7.4-10.4); Monocytes # 0.8 K/mm3 (0.1-1.0); Monocytes % 10.1 % (1.7-9.3); Neutrophils # 5.2 K/mm3 (1.8-7.8); Neutrophils % 70.4 % (37.0-80.0); Nucleated Red Blood Cells # 0 10^3/uL; Nucleated Red Blood Cells % 0 %; Platelet Count 174 K/mm3 (142-424); Red Blood Count 5.33 M/mm3 (4.60-6.20); Red Cell Distribution Width 14.6 % (11.5-17.5); Red Cell Distribution Width-SD 47.3 fL; White Blood Count 7.4 K/mm3 (4.8-10.8)
[2024-11-04] MEDS: NITROGLYCERIN 0.4MG SL TABLET 0.4 MG SL (20:14)
[2024-11-04] MEDS: ACETAMINOPHEN 1,000MG/100ML VIAL 1000 MG IV (20:15)
[2024-11-04 20:22] LABS: Activated Partial Thrombo Time 25.9 seconds (22.8-30.6); INR 1.01 (0.9-1.1); Prothrombin Time 11.2 seconds (10.1-12.5)
[2024-11-04 20:23] LABS: Albumin Level 4.6 g/dl (3.5-5.0); Chloride 100 mmol/L (98-107); Potassium 4.7 mmoL/L (3.5-5.1); Sodium 134 mmol/L (136-145)
[2024-11-04 20:25] LABS: Blood Urea Nitrogen 47 mg/dl (9-20); Creatinine Clearance Estimated 67 mL/min (50-200); Estimated Glomerular Filt Rate 44 ml/min (>60); GFR (African American) 53 ML/MIN (>60)
[2024-11-04 20:26] LABS: Alanine Aminotransferase 23 U/L (12-78); Albumin/Globulin Ratio 1.2 (1.1-1.8); Alkaline Phosphatase 125 U/L (38-126); Anion Gap 12.7 mEq/L (5-15); Aspartate Amino Transferase 25 U/L (17-59); Bilirubin,Total 0.6 mg/dl (0.2-1.3); Calcium 9.6 mg/dl (8.4-10.2); Carbon Dioxide 26 mmol/L (22.0-30.0); Chol/HDL Ratio 4.9 (1-3.5); Cholesterol 143 mg/dl (140-200); Globulin 3.9 g/dL (1.3-3.2); HDL Cholesterol 29 mg/dl (40-60); Total Protein,Serum 8.5 g/dl (6.3-8.2); Triglycerides 238 mg/dl (30-150); VLDL Cholesterol 48 mg/dL (0-40)
[2024-11-04 20:34] LABS: Glucose 421 mg/dl (74-100)
[2024-11-04 20:38] LABS: Direct LDL Cholesterol 66.11 mg/dL (100-129)
[2024-11-04 20:39] LABS: NT Pro Brain Natriuretic Pep. 378 pg/mL (0-125)
--- NOTE | 2024-11-04 20:42 | ECG_ITS ---
APPROVED REPORT Exam: Resting ECG HR:79 bpm ECG Measurements Heart Rate 79 AXES DC 178 P -6 QRSd 117 QRS -73 QT 381 T 137 QTc 416 Conclusion SINUS RHYTHM LEFT ANTERIOR FASCICULAR BLOCK [QRS AXIS <= -45, QR IN I, RS IN II] POSSIBLE ANTEROLATERAL MYOCARDIAL INFARCTION , OF INDETERMINATE AGE [30 ms Q WAVE IN I/aVL/V3-V6] No STEMI Electronically signed by : JAYDEN MENDEZ, 11/04/2024 23:51:24
--- NOTE | 2024-11-04 20:47 | PC.NURSE ---
Lab called at 20:33 over a critical for pt i relayed the info to Nolberto White MD and Reed COPPOLA
[2024-11-04 20:51] LABS: Troponin I 0.01 ng/ml (0.00-0.034)
[2024-11-04] MEDS: MORPHINE 4MG/ML SYRINGE 4 MG IV (21:32)
[2024-11-04 21:38] LABS: Microscopic, Urine URINE MICROSCOPIC (MICROSCOPIC)
[2024-11-04 21:41] LABS: Appearance,Urine CLEAR (Clear); Bilirubin,Urine Negative (Negative); Blood, Urine Negative (Negative); Color,Urine YELLOW (Yellow); Glucose,Urine (UA) 3+ (Negative); Ketones,Urine Negative (Negative); Leukocyte Esterase,Urine Negative (Negative); Nitrate,Urine Negative (Negative); Protein,Urine Negative (Negative); Specific Gravity, Urine <= 1.005 (1.005-1.030); Urobilinogen,Urine 0.2 EU/dl (0.2)
--- NOTE | 2024-11-04 21:41 | PC.NURSE ---
Patient reports severe left arm itching proximal to IV insertion site after IVP morphine. No redness noted. Verbal for 50 mg benadryl IVP once by Dr. White.
[2024-11-04] MEDS: diphenhydrAMINE 50MG/ML VIAL 50 MG IV (21:43)
[2024-11-04 21:53] LABS: Bacteria,Urine Trace /lpf
[2024-11-04 23:26] LABS: Troponin I 0.01 ng/ml (0.00-0.034)
== END 2024-11-04 23:37 | disposition home or self-care (01) ==
PROVIDERS: Nurse Practitioner; Emergency Provider Emergency Medicine; PCP Family Medicine
DX: R07.89 Other chest pain (principal); I44.4 Left anterior fascicular block; M79.601 Pain in right arm; R51.9 Headache, unspecified; E11.65 Type 2 diabetes mellitus with hyperglycemia; F17.210 Nicotine dependence, cigarettes, uncomplicated; J44.9 Chronic obstructive pulmonary disease, unspecified; I11.0 Hypertensive heart disease with heart failure; I50.40 Unspecified combined systolic (congestive) and diastolic (congestive) heart failure; Z79.01 Long term (current) use of anticoagulants
CPT/HCPCS: 71045; 80053; 80061; 81001; 83880; 84484; 85025; 85610; 85730; 93005; 96374; 96375; 99285; J0131; J1200; J2270

== ENCOUNTER 2024-11-14 08:48 | Day surgery (SDC) | payer MEDICARE, SELFPAY ==
[2024-11-14] VITALS (16 sets, daily range): BP systolic 107–137; BP diastolic 71–89; PULSE 70–77; RESP 18–20; TEMP 36.7; O2SAT 90–96; BMI 32.3
[2024-11-14] MEDS: IOHEXOL-240 100ML BOTTLE 110 ML IV (07:05)
--- NOTE | 2024-11-14 07:11 | IR_ITS ---
APPROVED REPORT Patient Location: Outpatient PROCEDURES Pigtail catheter placement in the suprarenal abdominal aorta Suprarenal abdominal aorta gram Repositioning the catheter in the abdominal aorta Infrarenal abdominal aortogram with bilateral iliofemoral angiogram Repositioning the catheter in the abdominal aorta Bilateral iliofemoral runoff INDICATION Peripheral artery disease, [place] claudication class III, Chronic renal failure creatinine 1.5, Suspect renovascular hypertension possible renal artery stenosis and/or fibromuscular dysplasia, Informed consent was obtained prior to the procedure. COMPLICATIONS NONE Estimated Blood Loss: LESS THAN 10 ML TECHNIQUE 1% lidocaine used anesthetize right groin the right femoral was accessed via the central technique and a 5 Estonian sheath is placed in the right femoral artery. A pigtail catheter was advanced to the suprarenal abdominal aorta where abdominal aortography was performed. The catheter was then repositioned and bilateral iliofemoral angiography was performed. Catheter was repositioned again and bilateral iliofemoral angiography with bilateral runoff to the feet was performed. Following this the aortic pressure was measured in the infrarenal abdominal aorta and the catheter was removed followed by measurements at the right femoral artery. The end the procedure the apparatus was removed the patient was transferred to the postop porting in stable condition for sheath pull and post cath care ANGIOGRAPHIC RESULTS Suprarenal abdominal aorta is mildly atheromatous. Bilateral renal arteries are normal Mild infrarenal atherosclerotic plaque Right common iliac artery has 10 to 20% stenosis while the right external iliac artery has a concentric 40% stenosis which produces a 5 to 10 mm Rivera stenotic gradient. The right internal iliac artery is patent. The right external iliac artery has a 40% stenosis followed by an eccentric 30% stenosis. The right common femoral artery is widely patent the right profunda femoris artery is patent. The right superficial femoral artery is occluded 1 cm from its origin and then occluded throughout its entire course. There is recanalization at the popliteal level in Macario's canal. The popliteal artery is moderately atheromatous with mid vessel 30% stenoses. The infrageniculate vessels are patent in the proximal segment but small caliber. The anterior tibialis artery is proximally and distally severely diffusely diseased small caliber as is the peroneal artery. The posterior tibialis artery is not identifiable proximally but does appear to recanalize at mid calf from collaterals from the peroneal Left common iliac artery has ostial 10 to 20% stenosis. The left internal iliac artery has mid vessel 50% calcified concentric stenosis. The left external iliac artery has 30% proximal stenosis but otherwise patent. The left common femoral artery is widely patent. The left profunda femoris artery is patent the left superficial femoral artery has diffuse moderate atheromatous plaque throughout its entire course with extensive calcification inside Macario's canal yet still has patency. The anterior tibialis artery is proximally occluded the peroneal artery is patent as is the posterior tibialis artery. 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 Recommend medical management 2. Tight diabetes control 3. Absolute avoidance of tobacco products 4. Patient would benefit from physical therapy program 5. Xarelto 2.5 twice daily plus aspirin 81 mg daily for peripheral artery and probably vascular disease 6. LDL less than 55 if she is at high intensity statin Electronically signed by : Devan Oconnell MD 11/14/2024 11:40:35
[2024-11-14 09:21] LABS: Basophils # 0.1 K/mm3 (0-0.2); Basophils % 0.7 % (0.1-2.0); Eosinophils # 0.1 Kmm3 (0.0-0.4); Eosinophils % 1.7 % (0.1-12.0); Hematocrit 48.2 % (42.0-52.0); Hemoglobin 15.1 g/dL (14.1-18.0); Immature Granulocytes # 0.04 10^3uL; Immature Granulocytes % 0.5 %; Lymphocytes # 1.6 K/mm3 (0.7-4.5); Mean Corpuscular HGB Conc 31.3 g/dL (31.8-35.4); Mean Corpuscular Hemoglobin 28.3 pg (27.0-31.2); Mean Corpuscular Volume 90.4 fl (80-94); Mean Platelet Volume 12.5 fl (7.4-10.4); Monocytes # 0.7 K/mm3 (0.1-1.0); Monocytes % 9.3 % (1.7-9.3); Neutrophils # 4.9 K/mm3 (1.8-7.8); Neutrophils % 65.8 % (37.0-80.0); Nucleated Red Blood Cells # 0 10^3/uL; Nucleated Red Blood Cells % 0 %; Platelet Count 141 K/mm3 (142-424); Red Blood Count 5.33 M/mm3 (4.60-6.20); Red Cell Distribution Width 14.9 % (11.5-17.5); Red Cell Distribution Width-SD 48.8 fL; White Blood Count 7.4 K/mm3 (4.8-10.8)
[2024-11-14 09:28] LABS: Chloride 96 mmol/L (98-107); Potassium 4.2 mmoL/L (3.5-5.1); Sodium 137 mmol/L (136-145)
[2024-11-14 09:31] LABS: Anion Gap 17.2 mEq/L (5-15); Blood Urea Nitrogen 37 mg/dl (9-20); Calcium 9.7 mg/dl (8.4-10.2); Carbon Dioxide 28 mmol/L (22.0-30.0); Creatinine Clearance Estimated 75 mL/min (50-200); Estimated Glomerular Filt Rate 47 ml/min (>60); GFR (African American) 57 ML/MIN (>60); Glucose 259 mg/dl (74-100)
[2024-11-14] MEDS: HEPARIN 1,000 UNITS/500ML NS (CATH LAB) 3000 UNIT IV (10:51)
[2024-11-14] MEDS: LIDOCAINE 1% 10ML MDV 10 ML IJ (10:51)
[2024-11-14] MEDS: 0.9 % SODIUM CHLORIDE 500 ML 25 ML IV (10:52)
[2024-11-14] MEDS: diphenhydrAMINE 50MG/ML VIAL 50 MG IV (10:52)
[2024-11-14] MEDS: FENTANYL 100MCG/2ML VIAL 50 MCG IV (11:26)
[2024-11-14] MEDS: MIDAZOLAM HCL 1MG/ML 5ML VIAL 1 MG IV (11:27)
== END 2024-11-14 14:45 | disposition home or self-care (01) ==
LOC: CATHLAB 08:49
PROVIDERS: PCP Family Medicine; Visit Provider Internal Medicine
DX: E11.51 Type 2 diabetes mellitus with diabetic peripheral angiopathy without gangrene (principal); I70.213 Atherosclerosis of native arteries of extremities with intermittent claudication, bilateral legs; E11.22 Type 2 diabetes mellitus with diabetic chronic kidney disease; E11.65 Type 2 diabetes mellitus with hyperglycemia; I13.2 Hypertensive heart and chronic kidney disease with heart failure and with stage 5 chronic kidney disease, or end stage renal disease; N18.5 Chronic kidney disease, stage 5; I50.42 Chronic combined systolic (congestive) and diastolic (congestive) heart failure; I11.0 Hypertensive heart disease with heart failure; I25.5 Ischemic cardiomyopathy; J44.9 Chronic obstructive pulmonary disease, unspecified; I72.5 Aneurysm of other precerebral arteries; Z95.1 Presence of aortocoronary bypass graft; E78.5 Hyperlipidemia, unspecified; G47.33 Obstructive sleep apnea (adult) (pediatric); I25.10 Atherosclerotic heart disease of native coronary artery without angina pectoris; R93.5 Abnormal findings on diagnostic imaging of other abdominal regions, including retroperitoneum; Z86.73 Personal history of transient ischemic attack (TIA), and cerebral infarction without residual deficits; F17.210 Nicotine dependence, cigarettes, uncomplicated; Z95.810 Presence of automatic (implantable) cardiac defibrillator; Z79.82 Long term (current) use of aspirin; Z79.84 Long term (current) use of oral hypoglycemic drugs; Z79.85 Long-term (current) use of injectable non-insulin antidiabetic drugs; Z79.4 Long term (current) use of insulin; Z79.01 Long term (current) use of anticoagulants; Z79.02 Long term (current) use of antithrombotics/antiplatelets; Z79.899 Other long term (current) drug therapy
CPT/HCPCS: 36200; 80048; 85025; 99152; 99153; C1725; C1769; C1894; J1200; J1644; J3010; J7040; Q9966

== ENCOUNTER 2025-01-21 08:09 | Emergency (ER) | payer MEDICARE, SELFPAY ==
--- OUTSIDE RECORDS SUMMARY | 2007-03-04 05:58 | XMS_ITS | Continuity of Care Document ---
Author Organization [facility] Address [address] [place] [phone] Phone Care Team Providers Care Plastic Machine Operator Name Role Phone Sourav Tripp MD Unavailable [...] on Encounter Offic Cons New/estab Mod 40 [facility], [address] [place] [address], [id number], tel:[phone] [facility] ([place]) No Information Qasim Benjamin. [address] [place] [address], [id number], [place]. tel:[phone] Referring Provider: Hakan Pablo, [address] [place] [address], [place], [address]. tel:[phone] Family History Family Member Type Diagnosis Age At Onset Mother Problem (finding) diabetes melli tus in first degree relative Mother Problem (finding) glaucoma Payers Payer name Insurance type Covered green party ID Authoriza tion(s) Blue Adv FVM CI [id number] Social History Type Description Quantity Date Captured [...]
[2025-01-21 08:13] VITALS: BP 164/105; PULSE 88; O2SAT 99
[2025-01-21 08:15] VITALS: BP 164/105; PULSE 90; RESP 24; TEMP 36.5; O2SAT 99; BMI 30.7
[2025-01-21 08:20] VITALS: O2SAT 99
[2025-01-21 08:21] VITALS: BP 147/92; PULSE 89; O2SAT 100
[2025-01-21 08:26] LABS: Coronavirus 19, PCR Not Detected (NotDetected); Influenza A, PCR Not Detected (NotDetected); Influenza B, PCR Not Detected (NotDetected)
--- OUTSIDE RECORDS SUMMARY | 2025-01-21 08:32 | XMS_ITS | Referral Summary ---
Author Organization [employer] ([place], [place], [place], [place]) Address [address] [place] [address] Care Team Providers Care Rubber And Plastics Worker Name Role Phone Unavailable Primary Care [...]
--- OUTSIDE RECORDS SUMMARY | 2025-01-21 08:32 | XMS_ITS | Encounter Summary ---
Author Organization [employer] ([place], [place], [place], [place]) Address [address] [place] [address] Care Team Providers Care Family Member Caretaker Name Role Phone Unavailable Primary Care Provider Unavailabl e Encounter Details Date Type Department Care Team (Late st Contact Info) Description 04/08/2019 Transcribed Document [facility] [place] Family Medicine [facility] [place] [address] ProviderMelanie MD [address] [place] [id number] Social History Tobacco Use Types Packs/Day Years Used Date Smoking Tobacco: Never Assessed Sex and Gender Information Value Date Recorded Sex Assigned at Not on file Legal Sex Male 4:07 PM CDT Gender Identity Not on file Sexual Orientation Not on file documented as of this encounter Miscellaneous Notes * [employer]ner Conversion Note - Melanie Grider MD - 04/08/2019 11:01 AM SAP SECURITY ARCHITECT Patient: TERRI MOREL Age: 59 years Sex: [...] history Cardiovascular. Surgical history: Right total orchiectomy ([id number]). Repair of right inguinal hernia ([id number]). Hydrocele ([id number]). CABG (Coronary artery bypass grafting) planned ([id number]).. Family history: No family history items have [...] Color Yellow Urine Appearance Clear Urine Specific Rock >1.030 HI Urine pH Dipstick 6.0 Urine [...] % 19.5 % Lymph # 2.22 x10(3)/uL [place] % 8.9 % [place] # 1.01 K/uL HI Eos % 4.0 % Eos # 0.46 x10(3)/uL Baso % 0.6 % Baso # 0.07 x10(3)/uL nRBC 0.020 HI Slide Review No IG# 0.08 x10(3)/uL HI IG% 0.70 % HI PT 10.3 Second(s) INR 1.0 PTT 29.6 Second(s) . Radiology results: Radiology Results (Last 48 hours) [id number] -- 04/08/2019 10:42 US Scrotum and Contents [...] EST, Discharge to: Home . Prescriptions: Prescription [facility]: [facility] rectal enema (Prescribe): 133 mL, [...]
--- OUTSIDE RECORDS SUMMARY | 2025-01-21 08:32 | XMS_ITS | Clinical Summary ---
Author Organization [facility] Address [address] [place] [address] Care Team Providers Care Environmental Health And Safety Intern Name Role Phone Anita Dumas Primary Care Provider [phone] Allergies Active Allergy Reactions Criticality Noted Date [...] Date Last Done Comments [facility]-Depression Screening 1961 [facility]-Infant/Child/Adol SDOH Screenings 1960 [facility]- SDOH Screenings 1979 [facility]-Adult SDOH Screenings 1979 CT Colonography 2006 Colonoscopy 2006 FIT-DNA 2006 FIT 2006 FOBT 2006 Sigmoidoscopy 2006 [facility]-Colorectal Cancer Screening 2006 [facility]-Zoster Vaccines (1 of 2) 2011 [facility]-Pneumococcal Vaccine: 50+ Years (2 of 2 - PCV) 06/26/2017 06/26/2016, 03/18/2011 [facility]-DTaP,Tdap,and Td Vaccines (2 - Td or Tdap) 05/05/2023 05/05/2013 [facility]-[id number]-11 Vaccine (1 - season) 2024 [facility]-Influenza Vaccine (#1) 01/16/202505/30, 06/26/2016, 06/22/2016, Additional history exists [facility]-RSV Vaccine: [...] <6.0% Children and Adolescents <7.5% . Source: [place] [employer]. Standards of medical care in diabetes, 2017. Diabetes Care.2017:40 (suppl 1):S1-S135. . HbA1c assay performed by an ion-exchange chromatography method that is certified traceable to the DCCT. 11/14/2018 6:10 PM EDT 11/14/2018 6:24 PM EDT us Mikel Dowell APRN LAB BLOOD ORDERABLES Final Re sult [employer] from Last 3 Months or Most Recently Relevant to Health Maintenance Insurance MEDICARE Care Teams Environmental Health And Safety Intern Relationship Specialty Start Date End Date Anita Dumas PA [address] [place] [address] PCP - General 08/06/22
--- OUTSIDE RECORDS SUMMARY | 2025-01-21 08:32 | XMS_ITS | Encounter Summary ---
Author Organization [employer] ([place], [place], [place], [place]) Address [address] [place] [address] Care Team Providers Care Public Health Clinical Nurse Specialist Name Role Phone Unavailable Primary Care Provider Unavailabl e Encounter Details Date Type Department Care Team (Late st Contact Info) Description 04/08/2019 Transcribed Document [facility] [place] [facility] [address] ProviderMelanie [place] [address] Social History Tobacco Use Types Packs/Day Years Used Date Smoking Tobacco: Never Assessed Sex and Gender Information Value Date Recorded Sex Assigned at Not on file Legal Sex Male 4:07 PM CDT Gender Identity Not on file Sexual Orientation Not on file documented as of this encounter Miscellaneous Notes * Cerner Conversion Note - Melanie ProviderMD - 04/08/2019 10:42 AM FRANCHISE DEVELOPMENT MANAGER ED Assessment Entered On: 04/08/2019 10:57 EST [...] Communication Barrier : None Primary Language : Luxembourgish Any Spiritual/Cultural Needs or Requests : No [...]
--- OUTSIDE RECORDS SUMMARY | 2025-01-21 08:32 | XMS_ITS | Encounter Summary ---
Author Organization [employer] ([place], [place], [place], [place]) Address [address] [place] [address] Care Team Providers Care Stone Paver Name Role Phone Unavailable Primary Care Provider Unavailabl e Encounter Details Date Type Department Care Team (Late st Contact Info) Description 09/06/2018 Transcribed Document [facility] [place] [facility] [place] [address] ProviderMelanie MD [facility] [place] [address] Social History Tobacco Use Types Packs/Day Years Used Date Smoking Tobacco: Never Assessed Sex and Gender Information Value Date Recorded Sex Assigned at Not on file Legal Sex Male 4:07 PM CDT Gender Identity Not on file Sexual Orientation Not on file documented as of this encounter Miscellaneous Notes * Cerner Conversion Note - Melanie ProviderMD - 09/06/2018 5:31 PM CDT DATE [...] no sleepiness and scores 4/24 in the [place] Sleepiness Scale. He previously had noted insomnia [...] 6. Melatonin. 7. Tradjenta. 8. Glimepiride. 9. Pavo. 10. Omeprazole. 11. Bupropion. 12. Janumet. 13. [...]
--- OUTSIDE RECORDS SUMMARY | 2025-01-21 08:32 | XMS_ITS | Encounter Summary ---
Author Organization [employer] ([place], [place], [place], [place]) Address [address] [place] [address] Care Team Providers Care Coke Drawer Name Role Phone Unavailable Primary Care Provider Unavailabl e Encounter Details Date Type Department Care Team (Late st Contact Info) Description 04/08/2019 Transcribed Document [facility] [place] [address] [place] [address] ProviderMelanie MD [facility] [place] [address] Social History Tobacco Use Types Packs/Day Years Used Date Smoking Tobacco: Never Assessed Sex and Gender Information Value Date Recorded Sex Assigned at Not on file Legal Sex Male 4:07 PM CDT Gender Identity Not on file Sexual Orientation Not on file documented as of this encounter Miscellaneous Notes * Cerner Conversion Note - Historical ProviderMD - 04/08/2019 11:03 AM MGMT ANALYST Pain Assessment Entered On: 04/08/2019 12:31 EST [...]
--- OUTSIDE RECORDS SUMMARY | 2025-01-21 08:32 | XMS_ITS | Clinical Summary ---
Author Organization [facility] Address [address] [place] [address] Phone Care Team Providers Care Flight Crew Ordnanceman Name Role Phone Darnell Elizabeth MD Primary Care Provider [phone] Allergies Active Allergy Reactions Criticality Noted Date [...] Td or Tdap) 05/05/2023 05/05/2013 COVID-19 Vaccine (1 - 2023-2 5 season) 2025 Influenza Vaccine (#1) 2025 02/05/2012 Hepatitis B Vaccine Aged Out No longe r eligible based on patient's age to complete this topic Meningococcal B Vaccine Aged Out No l onger eligible based on patient's age to complete this topic Insurance [facility] Care Teams Flight Crew Ordnanceman Relationship Specialty Start Date End Date Darnell Elizabeth MD [address] [place] [address] PCP - General Internal Medicine 12/31/12
--- OUTSIDE RECORDS SUMMARY | 2025-01-21 08:32 | XMS_ITS | Encounter Summary ---
Author Organization [employer] ([place], [place], [place], [place]) Address [address] [place] [address] Care Team Providers Care Manager Product Marketing Name Role Phone Unavailable Primary Care Provider Unavailabl e Encounter Details Date Type Department Care Team (Late st Contact Info) Description 04/08/2019 Transcribed Document [facility] [place] Family Medicine [facility] [place] [address] ProviderMelanie MD [facility] [place] [address] Social History Tobacco Use Types Packs/Day Years Used Date Smoking Tobacco: Never Assessed Sex and Gender Information Value Date Recorded Sex Assigned at Not on file Legal Sex Male 4:07 PM CDT Gender Identity Not on file Sexual Orientation Not on file documented as of this encounter Miscellaneous Notes * Cerner Conversion Note - Melanie ProviderMD - 04/08/2019 10:42 AM MONITORING MANAGER ED Triage Entered On: 04/08/2019 10:52 EST [...] : 3 - Urgent Tracking Group : [facility] ED KEN REBOLLEDO - 04/08/2019 10:49 [...] No Tuberculosis Symptoms : None KEN REBOLLEDO Samy - 04/08/2019 10:49 EST Vital Signs ED [...] Oxygen Saturation : 95 % KEN REBOLLEDO Samy - 04/08/2019 10:49 EST Allergy (As Of: 04/08/2019 10:52:11 EST) Allergies (Active) No Known Allergies Estimated Onset Date: Unspecified ; Created By: CONTRIBUTOR_SYSTEM, HIST_CERMIHIR; Reaction Status: Active ; Category: Drug [...] PNED ; Probability: 0 ; Diagnosis Code: [id number] ED Height and Weight Height Source : Stated Height Entry Format : [place] Height, Feet : 5 ft(Converted to: 152 cm, 60 Inch) Height, Inches : 11 Inch(Converted to: 0 ft 11 Inch, 27.94 cm) Clinical Height : 180.34 cm Weight Source, ED : Critical estimated dosing weight Weight Entry Format : [place] Weight, Pounds : 230 lb Clinical Dosing Weight : 104.55 kg Body Surface Area (BSA) : 2.24 m2 Body Mass Index : 32.1 kg/m2 (HI) [place] Body Weight (IBW) : 74.31 kg KEN REBOLLEDO Samy - 04/08/2019 10:49 EST documented in this encounter Plan of Treatment Not on file documented as of this encounter Visit Diagnoses Not on filedocumented in this encounter
--- OUTSIDE RECORDS SUMMARY | 2025-01-21 08:32 | XMS_ITS | Encounter Summary ---
Author Organization [employer] ([place], [place], [place], [place]) Address [address] [place] [address] Care Team Providers Care Ferry Engineer Name Role Phone Unavailable Primary Care Provider Unavailabl e Encounter Details Date Type Department Care Team (Late st Contact Info) Description 04/08/2019 Transcribed Document [facility] [place] Medicine [facility] [address] ProviderMelanie MD [facility] [address] Social History Tobacco Use Types Packs/Day Years Used Date Smoking Tobacco: Never Assessed Sex and Gender Information Value Date Recorded Sex Assigned at Not on file Legal Sex Male 4:07 PM CDT Gender Identity Not on file Sexual Orientation Not on file documented as of this encounter Miscellaneous Notes * Cerner Conversion Note - Historical ProviderMD - 04/08/2019 2:47 PM ATTENDING AMBULATORY CARE documented in this encounter Plan of Treatment Not on file documented as of this encounter Visit Diagnoses Not on filedocumented in this encounter
--- OUTSIDE RECORDS SUMMARY | 2025-01-21 08:32 | XMS_ITS | Encounter Summary ---
Author Organization [employer] ([place], [place], [place], [place]) Address [address] [place] [address] Care Team Providers Care Qa Auditor Name Role Phone Unavailable Primary Care Provider Unavailabl e Encounter Details Date Type Department Care Team (Late st Contact Info) Description 04/08/2019 Transcribed Document [facility] [place] [facility] [place] [address] ProviderMelanie MD [facility] [place] [address] Social History Tobacco Use Types Packs/Day Years Used Date Smoking Tobacco: Never Assessed Sex and Gender Information Value Date Recorded Sex Assigned at Not on file Legal Sex Male 4:07 PM CDT Gender Identity Not on file Sexual Orientation Not on file documented as of this encounter Miscellaneous Notes * Cerner Conversion Note - Melanie Grider MD - 04/08/2019 3:10 PM NITROGLYCERIN DISTRIBUTOR [place] [address] TERRI MOREL :1960 Visit Time:04/08/2019 [...] Within 3 to 5 days Where: [address] [facility] [place] [address]- Business (1) Follow Up with SUKHJINDER SHRESTHA When Within 2 to 3 days Where: [address] [place] [address]- x8 Business (1) Allergies No Known Allergies [...] range between ( 0.0 and 7.0 ) Ross #: 1.01 K/uL -- Normal range between ( 0.16 and 1.00 ) Eos #: 0.46 x10(3)/uL -- Normal range between ( 0.00 and 0.80 ) Ross %: 8.9 % -- Normal range between [...] ) Urine Bilirubin Dipstick: Negative Urine Specific [place]: >1.030 -- Normal range between ( 1.005 [...] in fiber, or overly processed, such as cypriot fries, hamburgers, cookies, candies, and soda. ??? Drink enough fluid to keep your urine clear or pale yellow. General instructions ??? Exercise regularly or as told by your health care provider. ??? Go to the restroom when you have the urge to go. Do not hold it in. ??? Take cplh-[id number] and prescription medicines only as told by [...] 01/30/2005 Document Revised: 11/21/2016 Document Reviewed: 10/22/2016 [employer] Interactive Patient Education ?? 2019 [employer] Scrotal Hematoma Scrotal hematoma is a [...] minutes, 2???3 times a day. ??? Take zevs-wxo-qgjgfei and prescription medicines only as told by [...] 08/03/2007 Document Revised: 08/11/2017 Document Reviewed: 08/11/2017 [employer] Interactive Patient Education ?? 2019 [employer] Emergency Awareness and Preventative Care STROKE [...] Assistance with quitting is available by contacting 2-981-EENVNOW. This is a free resource providing counseling, support, and referral. Or you may contact your personal physician. [facility]: The National Suicide Prevention Lifeline is a [...] was given the opportunity to ask questions. Patient/Marketing Communications Manager Name: Patient/Marketing Communications Manager Signature: Relationship to Patient: Clinician/Hospital Marketing Communications Manager Signature: Please Provide a Telephone Number Where You Can Be Reached: Is it Permissible To Leave a Message? Date: Electronically signed by Interface, [facility] Conversion Physics Instructor Dalton at 09/05/2022 2:15 PM CDT documented in this encounter Plan of Treatment Not on file documented as of this encounter Visit Diagnoses Not on filedocumented in this encounter
--- OUTSIDE RECORDS SUMMARY | 2025-01-21 08:33 | XMS_ITS | Encounter Summary ---
Author Organization [employer] ([place], [place], [place], [place]) Address [address] [place] [address] Care Team Providers Care Electrician Manager Name Role Phone Unavailable Primary Care Provider Unavailabl e Encounter Details Date Type Department Care Team (Late st Contact Info) Description 05/28/2019 Transcribed Document [facility] [place] Family Medicine [address] [place] [address] ProviderMelanie MD [facility] [place] [id number] Social History Tobacco Use Types Packs/Day Years Used Date Smoking Tobacco: Never Assessed Sex and Gender Information Value Date Recorded Sex Assigned at Not on file Legal Sex Male 4:07 PM CDT Gender Identity Not on file Sexual Orientation Not on file documented as of this encounter Miscellaneous Notes * Cerner Conversion Note - Historical ProviderMD - 05/28/2019 11:54 PM VENEER MATCHER ED Discharge Entered On: 05/28/2019 23:54 EST [...] 05/28/2019 23:54 EST Electronically signed by [facility] Conversion Pipelines Superintendent Cerner at 09/05/2022 2:15 PM CDT documented in this encounter Plan of Treatment Not on file documented as of this encounter Visit Diagnoses Not on filedocumented in this encounter
--- OUTSIDE RECORDS SUMMARY | 2025-01-21 08:33 | XMS_ITS | Encounter Summary ---
Author Organization [employer] ([place], [place], [place], [place]) Address [address] [place] [address] Care Team Providers Care Supply Chain Director Name Role Phone Unavailable Primary Care Provider Unavailabl e Encounter Details Date Type Department Care Team (Late st Contact Info) Description 04/08/2019 Transcribed Document [facility] [place] Family Medicine [address] [place] [address] ProviderMelanie MD [address] [place], [place] [id number] Social History Tobacco Use Types Packs/Day Years Used Date Smoking Tobacco: Never Assessed Sex and Gender Information Value Date Recorded Sex Assigned at Not on file Legal Sex Male 4:07 PM CDT Gender Identity Not on file Sexual Orientation Not on file documented as of this encounter Miscellaneous Notes * Cerner Conversion Note - Historical ProviderMD - 04/08/2019 10:42 AM SHOW HOST OR HOSTESS [place] Suicide Severity Rating Scale (C-SSRS) Entered On: 04/08/2019 11:15 EST Performed On: 04/08/2019 10:45 EST by Renata Dia RN [place] Suicide Severity Rating Scale (C-SSRS) CSSRS Past Month Wish to be : No CSSRS Past Month Suicidal Thoughts : No CSSRS Lifetime Suicide Behavior : No Suicide Severity Rating Score : 0 Suicide Severity Rating : No Additional Care Required at this time Thoughts of Harming/Killing Others : No Renata Dia RN - 04/08/2019 11:15 EST Electronically signed by Nicci Ortiz Conversion [employer] Consultant Cerner at 09/05/2022 2:24 PM CDT documented in this encounter Plan of Treatment Not on file documented as of this encounter Visit Diagnoses Not on filedocumented in this encounter
--- OUTSIDE RECORDS SUMMARY | 2025-01-21 08:33 | XMS_ITS | Encounter Summary ---
Author Organization [employer] ([place], [place], [place]) Address [address] [place] [address] Care Team Providers Care Laminating Machine Feeder Name Role Phone Unavailable Primary Care Provider Unavailabl e Encounter Details Date Type Department Care Team (Late st Contact Info) Description 05/28/2019 Transcribed Document [facility] [place] Family Medicine [address] [place] [address] ProviderMelanie MD [address] [place] [address] Social History Tobacco Use Types Packs/Day Years Used Date Smoking Tobacco: Never Assessed Sex and Gender Information Value Date Recorded Sex Assigned at Not on file Legal Sex Male 4:07 PM CDT Gender Identity Not on file Sexual Orientation Not on file documented as of this encounter Miscellaneous Notes * Cerner Conversion Note - Historical ProviderMD - 05/28/2019 8:37 PM LINE PATROLLER Pain Assessment Entered On: 05/29/2019 23:38 EST [...]
--- OUTSIDE RECORDS SUMMARY | 2025-01-21 08:33 | XMS_ITS | Encounter Summary ---
Author Organization [employer] ([place], [place], [place]) Address [address] [place] [address] Care Team Providers Care Product Lead Name Role Phone Unavailable Primary Care Provider Unavailabl e Encounter Details Date Type Department Care Team (Late st Contact Info) Description 05/28/2019 Transcribed Document [facility] [place] [facility] [place] [address] ProviderMelanie MD [facility] [place] [address] Social History Tobacco Use Types Packs/Day Years Used Date Smoking Tobacco: Never Assessed Sex and Gender Information Value Date Recorded Sex Assigned at Not on file Legal Sex Male 4:07 PM CDT Gender Identity Not on file Sexual Orientation Not on file documented as of this encounter Miscellaneous Notes * Cerner Conversion Note - Melanie ProviderMD - 05/28/2019 8:36 PM HEATING ENGINEER Pain Assessment Entered On: 05/29/2019 2:09 EST [...]
--- OUTSIDE RECORDS SUMMARY | 2025-01-21 08:33 | XMS_ITS | Encounter Summary ---
Author Organization [employer] ([place], [place], [place], [place]) Address [address] [place] [address] Care Team Providers Care Distribution Center Manager Name Role Phone Unavailable Primary Care Provider Unavailabl e Encounter Details Date Type Department Care Team (Late st Contact Info) Description 05/29/2019 Transcribed Document [facility] [place] Family Medicine [facility] [place] [address] ProviderMelanie MD [facility] [place] [id number] Social History Tobacco Use Types Packs/Day Years Used Date Smoking Tobacco: Never Assessed Sex and Gender Information Value Date Recorded Sex Assigned at Not on file Legal Sex Male 4:07 PM CDT Gender Identity Not on file Sexual Orientation Not on file documented as of this encounter Miscellaneous Notes * Cerner Conversion Note - Melanie Grider MD - 05/29/2019 8:05 AM EVENTS ADMINISTRATIVE ASSISTANT Patient: TERRI MOREL Age: 59 years [...] influenza virus vaccine, inactivated: 0.5 mL, IntraMuscular, [id number] insulin regular sliding scale: Scale D, SubCutaneous, Q6H lactobacillus acidophilus: 1 Cap, Oral, BID lisinopril: 10 mg, Oral, Daily vancomycin + Sodium Chloride 0.9% intravenous solution 250 mL: 1,500 mg, 250 mL/Hr, IV Piggyback, [id number] Documented Medications Documented Aspir 81: mg, Oral, [...] Daily influenza vaccine, quadrivalent 0.5 mL, IntraMuscular, [id number] insulin regular 1 unit/0.01 mL inj 3mL Scale D, SubCutaneous, Q6H lactobacillus acidophilus cap 1 Cap, Oral, BID lisinopril 10 mg tab 10 mg 1 Tab, Oral, Daily NIFEdipine ER 90 mg tab 90 mg 1 Tab, Oral, Daily piperacillin-tazobactam + NaCl 0.9% 100 mL 3.375 Gram, IV Piggyback, Q6HInt vancomycin + NaCl 0.9% 250 mL 1,500 mg, IV Piggyback, [id number] Continuous: (1) NaCl 0.45% 1,000 mL 1,000 [...] History of obstructive sleep apnea / IMO [id number] / Confirmed, Active Problems (1) History of obstructive sleep apnea OBJECTIVE: Physical Examination VS/Measurements Vitals Signs (last 24 hrs) Last Charted Minimum Maximum Temp 97.7 (MAY 29:00) 97.7 (MAY 29:) 98.6 (MAY 28:16) Mon HR 71 (MAY 29:00) 66 (MAY 29 06:30) 72 (MAY 29 04:00) Periph HR 82 (MAY 29 00:00) 75 (MAY 28 18:16) 82 (MAY 29 00:00) Resp Rate 18 (MAY 29:00) 16 (MAY 29 04:00) 18 (MAY 28:16) SBP H 180 (MAY 29:00) H 143 (MAY 28 23:24) H 180 (MAY 29:00) DBP H 107 (MAY 29:00) 76 (MAY 28 23:24) H 107 (MAY 29 11:00) MAP 132 (MAY 29 11:00) 129 (MAY 29 04:00) 132 (MAY 29 11:00) SpO2 97 (MAY 29:00) 95 (MAY 29 04:00) 100 (MAY 28 [...] tenderness, No swelling, No deformity. Integumentary: Warm, [place], Moist, No rash, scrotal ulcer in the [...] 41.9 \, Radiology Results (Last 48 hours) [id number] -- 05/28/2019 20:28 CR Chest 1 Vw [...]
--- OUTSIDE RECORDS SUMMARY | 2025-01-21 08:33 | XMS_ITS | Encounter Summary ---
Author Organization [employer] ([place], [place], [place], [place]) Address [address] [place] [address] Care Team Providers Care Flat Drier Name Role Phone Unavailable Primary Care Provider Unavailabl e Encounter Details Date Type Department Care Team (Late st Contact Info) Description 05/29/2019 Transcribed Document [facility] [place] Family Medicine [facility] [place] [address] ProviderMelanie MD [address] [place] [id number] Social History Tobacco Use Types Packs/Day Years Used Date Smoking Tobacco: Never Assessed Sex and Gender Information Value Date Recorded Sex Assigned at Not on file Legal Sex Male 4:07 PM CDT Gender Identity Not on file Sexual Orientation Not on file documented as of this encounter Miscellaneous Notes * Cerner Conversion Note - Melanie ProviderMD - 05/29/2019 2:02 PM SOLID WASTE TECHNICIAN Patient: TERRI MOREL Age: 59 years [...] the wound and he has been taking [place] Percocet and morphine at home with no [...] 250 m - 1,500 mg, IV Piggyback, [id number], infuse over 60 Minute(s), Routine Immunology influenza virus vaccine, inactivated - 0.5 mL, IntraMuscular, Inj, [id number] Cardiovascular carvedilol - 25 mg, Oral, Tab, [...] process/pending Rad: Radiology Results (Last 48 hours) [id number] -- 05/28/2019 20:28 CR Chest 1 Vw [...]
--- OUTSIDE RECORDS SUMMARY | 2025-01-21 08:33 | XMS_ITS | Encounter Summary ---
Author Organization [employer] ([place], [place], [place], [place]) Address [address] [place] [address] Care Team Providers Care Operator/Assistant Foreman Name Role Phone Unavailable Primary Care Provider Unavailabl e Encounter Details Date Type Department Care Team (Late st Contact Info) Description 05/28/2019 Transcribed Document [facility] [place] Family Medicine [facility] [address] ProviderMelanie MD [facility] [place] [address] Social History Tobacco Use Types Packs/Day Years Used Date Smoking Tobacco: Never Assessed Sex and Gender Information Value Date Recorded Sex Assigned at Not on file Legal Sex Male 4:07 PM CDT Gender Identity Not on file Sexual Orientation Not on file documented as of this encounter Miscellaneous Notes * Cerner Conversion Note - Melanie Grider MD - 05/28/2019 9:02 PM PRISONER CLASSIFICATION INTERVIEWER Patient: TERRI MOREL Age: 59 years Sex: [...] Pharmacy consulted to dose vancomycin for abscess. LRR=058 kg BMI=38.7 Consulting MD: Harshad Martino ID: [...] for this consultation. Adri Fisher, PharmD PGY-1 Loss Prevention Leader [phone] documented in this encounter Plan of Treatment Not on file documented as of this encounter Visit Diagnoses Not on filedocumented in this encounter
--- OUTSIDE RECORDS SUMMARY | 2025-01-21 08:33 | XMS_ITS | Encounter Summary ---
Author Organization [employer] ([place], [place], [place], [place]) Address [address] [place] [address] Care Team Providers Care Glove Former Name Role Phone Unavailable Primary Care Provider Unavailabl e Encounter Details Date Type Department Care Team (Late st Contact Info) Description 05/29/2019 Transcribed Document [facility] [place] [address] [place] [address] ProviderMelanie MD [facility] [place] [address] Social History Tobacco Use Types Packs/Day Years Used Date Smoking Tobacco: Never Assessed Sex and Gender Information Value Date Recorded Sex Assigned at Not on file Legal Sex Male 4:07 PM CDT Gender Identity Not on file Sexual Orientation Not on file documented as of this encounter Miscellaneous Notes * Cerner Conversion Note - Historical ProviderMD - 05/29/2019 5:00 PM CAREER COACH Chart Check - Review Order Profile Entered [...]
--- OUTSIDE RECORDS SUMMARY | 2025-01-21 08:33 | XMS_ITS | Encounter Summary ---
Author Organization [employer] ([place], [place], [place], [place]) Address [address] [place] [address] Care Team Providers Care Crutching Contractor Name Role Phone Unavailable Primary Care Provider Unavailabl e Encounter Details Date Type Department Care Team (Late st Contact Info) Description 04/08/2019 Transcribed Document [facility] [place] [address] [place] [address] ProviderMelanie MD [facility] [place], [place] [address] Social History Tobacco Use Types Packs/Day Years Used Date Smoking Tobacco: Never Assessed Sex and Gender Information Value Date Recorded Sex Assigned at Not on file Legal Sex Male 4:07 PM CDT Gender Identity Not on file Sexual Orientation Not on file documented as of this encounter Miscellaneous Notes * Cerner Conversion Note - Historical ProviderMD - 04/08/2019 3:10 PM MANAGER PATIENT ED Discharge Entered On: 04/08/2019 15:10 EST [...]
--- OUTSIDE RECORDS SUMMARY | 2025-01-21 08:33 | XMS_ITS | Encounter Summary ---
Author Organization [employer] ([place], [place], [place], [place]) Address [address] [place] [address] Care Team Providers Care Account Management Assistant Name Role Phone Unavailable Primary Care Provider Unavailneno kumar Encounter Details Date Type Department Care Team (Late st Contact Info) Description 05/29/2019 Transcribed Document [facility] [place] [address] [place] [address] ProviderMelanie MD [facility] [place] [address] Social History Tobacco Use Types Packs/Day Years Used Date Smoking Tobacco: Never Assessed Sex and Gender Information Value Date Recorded Sex Assigned at Not on file Legal Sex Male 4:07 PM CDT Gender Identity Not on file Sexual Orientation Not on file documented as of this encounter Miscellaneous Notes * Cerner Conversion Note - Historical ProviderMD - 05/29/2019 11:21 AM MOUNT LOADER Pain Assessment Entered On: 05/29/2019 16:57 EST [...]
--- OUTSIDE RECORDS SUMMARY | 2025-01-21 08:33 | XMS_ITS | Encounter Summary ---
Author Organization [employer] ([place], [place], [place], [place]) Address [address] [place] [address] Care Team Providers Care Supervisor Finishing Room Name Role Phone Unavailable Primary Care Provider Unavailabl e Encounter Details Date Type Department Care Team (Late st Contact Info) Description 05/29/2019 Transcribed Document [facility] [place] Family [place] [address] [place] [address] ProviderMelanie MD [facility] [place] [address] Social History Tobacco Use Types Packs/Day Years Used Date Smoking Tobacco: Never Assessed Sex and Gender Information Value Date Recorded Sex Assigned at Not on file Legal Sex Male 4:07 PM CDT Gender Identity Not on file Sexual Orientation Not on file documented as of this encounter Miscellaneous Notes * Cerner Conversion Note - Historical ProviderMD - 05/29/2019 5:00 AM AUTOMOBILE MECHANIC Chart Check - Review Order Profile [...]
--- OUTSIDE RECORDS SUMMARY | 2025-01-21 08:33 | XMS_ITS | Encounter Summary ---
Author Organization [employer] ([place], [place], [place], [place]) Address [address] [place] [address] Care Team Providers Care Undercutter Name Role Phone Unavailable Primary Care Provider Unavailabl e Encounter Details Date Type Department Care Team (Late st Contact Info) Description 05/28/2019 Transcribed Document [facility] [place] [address] ProviderMelanie MD [address] [place] [id number] Social History Tobacco Use Types Packs/Day Years Used Date Smoking Tobacco: Never Assessed Sex and Gender Information Value Date Recorded Sex Assigned at Not on file Legal Sex Male 4:07 PM CDT Gender Identity Not on file Sexual Orientation Not on file documented as of this encounter Miscellaneous Notes * Cerner Conversion Note - Melanie Grider MD - 05/28/2019 8:56 PM PROFESSOR OF MUSICOLOGY Patient: TERRI MOREL Age: 59 years Sex: [...] Patient reports he has been taking his [place] Percocet and morphine at home with no [...] Oral, BID vancomycin: 1,000 mg, IV Piggyback, [id number], Medications (16) Active Scheduled: (6) famotidine 20 mg tab 20 mg 1 Tab, Oral, BID HYDROmorphone 1 mg/1 mL inj 1 mg 1 mL, IV Push, 1-Time insulin lispro Scale D:, SubCutaneous, AC and at Bedtime lactobacillus acidophilus cap 1 Cap, Oral, BID piperacillin-tazobactam 3.375 Gram, IV Piggyback, Q6HInt vancomycin 1,000 mg, IV Piggyback, [id number] Continuous: (1) NaCl 0.45% 1000 mL 1,000 [...] diabetes mellitus Procedure history: Right total orchiectomy (1880715074). Repair of right inguinal hernia (6033094489). Hydrocele (5526204670). CABG (Coronary artery bypass grafting) planned (5975412630). Social History Social & Psychosocial Habits No Data Available . Physical Examination VS/Measurements Vitals Signs (last 24 hrs) Last Charted Minimum Maximum Temp 98.6 (MAY 28:16) 98.6 (MAY 28:) 98.6 (MAY 28:) Periph HR 75 (MAY 28:16) 75 (MAY 28:16) 75 (MAY 28:16) Resp Rate 18 (MAY 28:16) 18 (MAY 28 18:16) 18 (MAY 28:16) SBP H 148 (MAY 28:16) H 148 (MAY 28:16) H 148 (MAY 28:) DBP 89 (MAY 28:) 89 (MAY 28:16) 89 (MAY 28:16) SpO2 100 (MAY 28:) [...]
--- OUTSIDE RECORDS SUMMARY | 2025-01-21 08:33 | XMS_ITS | Encounter Summary ---
Author Organization [employer] ([place], [place], [place]) Address [address] [place] [address] Care Team Providers Care Layout Inspector Name Role Phone Unavailable Primary Care Provider Unavailabl e Encounter Details Date Type Department Care Team (Late st Contact Info) Description 05/29/2019 Transcribed Document [facility] [place] Family Medicine [address] [place] [address] ProviderMelanie MD [address] [place] [address] Social History Tobacco Use Types Packs/Day Years Used Date Smoking Tobacco: Never Assessed Sex and Gender Information Value Date Recorded Sex Assigned at Not on file Legal Sex Male 4:07 PM CDT Gender Identity Not on file Sexual Orientation Not on file documented as of this encounter Miscellaneous Notes * Cerner Conversion Note - Historical ProviderMD - 05/29/2019 12:00 PM ADVERTISING AGENT UM Authorization Entered On: 05/29/2019 12:00 EST Performed On: 05/29/2019 12:00 EST by ZULY PIERRE Rn-Utilization Review Primary Insurance Authorization Authorization and Policy Numbers : Insurance 1 Health Plan: MEDICARE Policy Number: [id number] Authorization Number: Insurance Primary Name : MEDICARE Policy Number: [id number] Historical Authorization Comments-Primary : No Authorization Comments Found ZULY PIERRE, Rn-Utilization Review - 05/29/2019 12:00 EST documented in this encounter Plan of Treatment Not on file documented as of this encounter Visit Diagnoses Not on filedocumented in this encounter
--- OUTSIDE RECORDS SUMMARY | 2025-01-21 08:33 | XMS_ITS | Encounter Summary ---
Author Organization [employer] ([place], [place], [place], [place]) Address [address] [place] [address] Care Team Providers Care Marine Drafter Name Role Phone Unavailable Primary Care Provider Unavailabl e Encounter Details Date Type Department Care Team (Late st Contact Info) Description 05/29/2019 Transcribed Document [facility] [place] Family Medicine [facility] [place] [address] ProviderMelanie MD [facility] [place] [address] Social History Tobacco Use Types Packs/Day Years Used Date Smoking Tobacco: Never Assessed Sex and Gender Information Value Date Recorded Sex Assigned at Not on file Legal Sex Male 4:07 PM CDT Gender Identity Not on file Sexual Orientation Not on file documented as of this encounter Miscellaneous Notes * Cerner Conversion Note - Historical ProviderMD - 05/29/2019 11:15 AM EDUCATIONAL PROGRAMMING DIRECTOR [facility] Main OR PACU Summary Primary Physician: JC LUQUE MD-URO Finalized Date/Time: 05/29/19 13:38:14 Pt. Name: TERRI MOREL /Sex: 1960 Male Med Rec #: [id number] Physician: FRANCOIS WISE DO Financial #: [id number] Pt. Type: I Room/Bed: [facility]/ Admit/Disch: 05/28/19 20:28:00 - Institution: [facility] Main OR PACU I Case Times Entry 1 In PACU I 05/29/19 12:40:00 Ready for PACU 05/29/19 13:30:00 Discharge Discharge from PACU 05/29/19 13:30:00 I Last Modified By: Janel Zelaya RN 05/29/19 13:38:05 Finalized By: Janel Zelaya RN Document Signatures Signed By: Janel Zelaya RN 05/29/19 13:38 documented in this encounter Plan of Treatment Not on file documented as of this encounter Visit Diagnoses Not on filedocumented in this encounter
--- OUTSIDE RECORDS SUMMARY | 2025-01-21 08:33 | XMS_ITS | Encounter Summary ---
Author Organization [employer] ([place], [place], [place], [place]) Address [address] [place] [address] Care Team Providers Care Technical Report Writer Name Role Phone Unavailable Primary Care Provider Unavailabl e Encounter Details Date Type Department Care Team (Late st Contact Info) Description 05/28/2019 Transcribed Document [facility] [place] [facility] [place] [facility] [place] [address] ProviderMelanie MD [address] [place] [address] Social History Tobacco Use Types Packs/Day Years Used Date Smoking Tobacco: Never Assessed Sex and Gender Information Value Date Recorded Sex Assigned at Not on file Legal Sex Male 4:07 PM CDT Gender Identity Not on file Sexual Orientation Not on file documented as of this encounter Miscellaneous Notes * Cerner Conversion Note - Melanie ProviderMD - 05/28/2019 8:25 PM SUPERVISOR COMPRESSED YEAST Patient: TERRI MOREL Age: 59 years Sex: [...] Patient reports he has been taking his [place] Percocet and morphine at home with no [...] in chart. Surgical history: Right total orchiectomy ([id number]). Repair of right inguinal hernia (6049555792). Hydrocele (0957355553). CABG (Coronary artery bypass grafting) planned ([id number])., Reviewed as documented in chart. Family history: [...] EST Height Source Stated Height Entry Format [place] Height/Length, DANISH (ft) 5 ft Height/Length DANISH 4 Inch CLINICALHEIGHT 162.56 cm [place] Body Weight 58.3 kg Weight Source, ED Critical estimated dosing weight Weight Entry Format [place] Weight [place] lb 225 lb CLINICALWEIGHT 102.27 kg Body [...] ED Adult Triage: ED Clinical Reconciliation: ED lyric writer: Lactic Acid Level with Reflex if Indicated: [...] % 35.3 % Lymph # 2.93 x10(3)/uL [place] % 6.3 % [place] # 0.52 K/uL Eos % 2.3 % Eos # 0.19 x10(3)/uL Baso % 0.6 % Baso # 0.05 x10(3)/uL Slide Review No IG# 0.04 x10(3)/uL IG% 0.50 % Urine Type. U CleanCatch Urine Color Yellow Urine Appearance Clear Urine Specific [place] >1.030 HI Urine pH Dipstick 6.0 Urine [...]
--- OUTSIDE RECORDS SUMMARY | 2025-01-21 08:33 | XMS_ITS | Encounter Summary ---
Author Organization [employer] ([place], [place], [place], [place]) Address [address] [place] [address] Care Team Providers Care Aquatic Scientist Name Role Phone Unavailable Primary Care Provider Unavailabl e Encounter Details Date Type Department Care Team (Late st Contact Info) Description 05/29/2019 Transcribed Document [facility] [place] [address] [place] [address] ProviderMelanie MD [facility] [place] [address] Social History Tobacco Use Types Packs/Day Years Used Date Smoking Tobacco: Never Assessed Sex and Gender Information Value Date Recorded Sex Assigned at Not on file Legal Sex Male 4:07 PM CDT Gender Identity Not on file Sexual Orientation Not on file documented as of this encounter Miscellaneous Notes * [employer]ner Conversion Note - Historical ProviderMD - 05/29/2019 3:07 PM GAS ENGINEER Education-Diabetes Topics Entered On: 05/29/2019 16:57 EST Performed On: 05/29/2019 15:07 EST by JANN JOSEPH RN Teaching/Learning Assessment Barriers To Learning : [...]
--- OUTSIDE RECORDS SUMMARY | 2025-01-21 08:33 | XMS_ITS | Encounter Summary ---
Author Organization [employer] ([place], [place], [place], [place]) Address [address] [place] [address] Care Team Providers Care Section Forest Fire Warden Name Role Phone Unavailable Primary Care Provider Unavailabl e Encounter Details Date Type Department Care Team (Late st Contact Info) Description 05/29/2019 Transcribed Document [facility] [place] Family Medicine [address] [place] [address] ProviderMelanie MD [facility] [place], [place] [address] Social History Tobacco Use Types Packs/Day Years Used Date Smoking Tobacco: Never Assessed Sex and Gender Information Value Date Recorded Sex Assigned at Not on file Legal Sex Male 4:07 PM CDT Gender Identity Not on file Sexual Orientation Not on file documented as of this encounter Miscellaneous Notes * Cerner Conversion Note - Melanie ProviderMD - 05/29/2019 8:00 AM BRANCH ASSISTANT Consult Phone Call Documentation Entered On: 05/29/2019 [...] Physician Returning Call : BLANQUITA SCHERER MD-URO SARAH BARILLAS - 05/29/2019 7:48 EST Electronically signed by Nicci Ortiz Conversion Child Protective Services Social Worker [employer] at 09/05/2022 2:05 PM CDT documented in this encounter Plan of Treatment Not on file documented as of this encounter Visit Diagnoses Not on filedocumented in this encounter
--- OUTSIDE RECORDS SUMMARY | 2025-01-21 08:33 | XMS_ITS | Encounter Summary ---
Author Organization [employer] ([place], [place], [place], [place]) Address [address] [place] [address] Care Team Providers Care Co Founder And Chairman Name Role Phone Unavailable Primary Care Provider Unavailabl e Encounter Details Date Type Department Care Team (Late st Contact Info) Description 05/28/2019 Transcribed Document [facility] [place] [facility] [place] [address] ProviderMelanie MD [facility] [place] [address] Social History Tobacco Use Types Packs/Day Years Used Date Smoking Tobacco: Never Assessed Sex and Gender Information Value Date Recorded Sex Assigned at Not on file Legal Sex Male 4:07 PM CDT Gender Identity Not on file Sexual Orientation Not on file documented as of this encounter Miscellaneous Notes * Cerner Conversion Note - Melanie ProviderMD - 05/28/2019 9:10 PM TRIMMING PRESS OPERATOR Admission History, Adult Entered On: 05/29/2019 0:07 [...] From : Patient, Spouse Primary Language : Yi Preferred Communication Mode : Verbal Communication Barrier [...] Scale Risk Level : 25-45 Medium Risk [place] Fall Interventions : Adequate lighting, Assistive devices within reach, Bed in low position, Call device within reach, Fall prevention handout/education per facility policy, Hourly comfort/safety rounds, Non-slip footwear, Personal items within reach, Reinforced to call for assistance before getting out of bed, Room free of clutter/spills, Upper side-rails up, Wheels locked, Wires/Cords secured Fall Risk Scale Calc Temp : 1 Jnena Vargas Lpn - 05/29/2019 0:02 EST Health Histories Smoking Status : Never (less than 100 in lifetime; none in last 30 days) Smokeless Tobacco Status : Never Jenna Vargas [facility] - 05/29/2019 0:02 EST Social History (As Of: 05/29/2019 00:07:25 EST) Height and Weight, Clinical Dosing Height Source : Stated Height Entry Format : [place] Height, Feet : 5 ft(Converted to: 152 cm, 60 Inch) Height, Inches : 4 Inch(Converted to: 0 ft 4 Inch, 10.16 cm) Clinical Height : 162.56 cm Weight Source : Bed scale Weight Entry Format : [place] Clinical Dosing Weight : 102.27 kg Weight, Pounds : 225 lb Body Surface Area (BSA) : 2.06 m2 Body Mass Index : 38.7 kg/m2 (HI) [place] Body Weight : 58 kg Jenna Vargas Lpn 05/29/2019 0:02 EST Infectious Disease History Infectious Disease History : Chicken pox/Shingles Fever/Chills Last 48 Hours : No Travel To Regions with Travel Advisories : No Travel Outside [place] Within Last 30 Days : No Contact With Traveler to Advisory Region : No Tuberculosis Symptoms : None Jenna Vargas Production Grip - 05/29/2019 0:02 EST Tetanus Immunization Status Previous Tetanus Immunizations : No qualifying data available. Tetanus Immunization : Less than 5 years Jenna Vargas Lpn 05/29/2019 0:02 EST Influenza Vaccine Asmt, Adult Previous Vaccines from Immunization Schedule : No qualifying data available. Influenza Immunization, Current Season : No Inactivated Flu Vaccine Contraindications : No contraindications to inactivated influenza vaccine Transplant Workup/Recent Transplant : No Order for Influenza Vaccine : Order for influenza vaccine sent to pharmacy Jenna Vargas Lpn 05/29/2019 0:02 EST Pneumococcal Vaccine Previous Vaccines from Immunization Schedule : No qualifying data available. Pneumonia Immunization Received : No Pneumococcal Risk Assessment < Age 65 : None Jenna Vargas Lpn 05/29/2019 0:02 EST Order Details Transport Mode Order Detail : Ambulatory Isolation Precautions Order Detail : Standard Precautions Order Detail : N/A IV Order Detail : 1 Oxygen Order Detail : 0 Nurse Collect Order Detail : 0 Lift/Transfer : Independent Central Line Order Detail : No Room Service : Appropriate Arterial Line : No Jenna Vargas Production Grip 05/29/2019 0:02 EST Nutrition History Feeding Ability : Independent Adaptive Feeding Equipment : Regular Eating Poorly Due to Decreased Appetite : No Unplanned Weight Loss in Past 3-6 Months : No Malnutrition Screening Tool Total(mal) : 0 Malnutrition Screening Tool Risk Level : Patient not at risk Jenna Vargas Lpn 05/29/2019 0:02 EST [place]ess Suicide Severity Rating Scale (C-SSRS) CSSRS Past Month Wish to be : No CSSRS Past Month Suicidal Thoughts : No CSSRS Lifetime Suicide Behavior : No Suicide Severity Rating Score : 0 Suicide Severity Rating : No Additional Care Required at this time Jenna Vargas Production Grip 05/29/2019 0:02 EST Psychosocial History Does Someone Depend on You for Care? : No Currently in Unsafe Situation : No Jenna Vargas Lpn 05/29/2019 0:02 EST Sleep Apnea Risk Assmt BiPAP/CPAP Ordered for Home Use : Yes Hx of Obstructive Sleep Apnea Diagnosis : Yes BiPAP/CPAP Used at Home : Yes Age over 50 Years Old : Yes Gender Male : Yes Jenna Vargas Lpn 05/29/2019 0:02 EST Spiritual/Cultural Needs Significant Loss/Crisis in Past 3 Years : No Any Spiritual/Cultural Needs or Requests : No Jenna Vargas Production Grip 05/29/2019 0:02 EST Valuables and Belongings Valuables and Belongings : Clothing, Personal devices, Personal items Clothing : Common streetwear Clothing Disposition : Bedside, With family Personal Device Disposition : Bedside, With family Personal Devices : Glasses Personal Items : Cell phone, Other: CPAP Personal Items Disposition : Bedside Jenna Vargas Production Grip 05/29/2019 0:02 EST documented in this encounter Plan of Treatment Not on file documented as of this encounter Visit Diagnoses Not on filedocumented in this encounter
--- OUTSIDE RECORDS SUMMARY | 2025-01-21 08:33 | XMS_ITS | Encounter Summary ---
Author Organization [employer] ([place], [place], [place], [place]) Address [address] [place] [address] Care Team Providers Care Solidworks Designer Name Role Phone Unavailable Primary Care Provider Unavailabl e Encounter Details Date Type Department Care Team (Late st Contact Info) Description 05/29/2019 Transcribed Document [facility] [place] Family Medicine [address] [place] [address] ProviderMelanie MD [facility] [place] [address] Social History Tobacco Use Types Packs/Day Years Used Date Smoking Tobacco: Never Assessed Sex and Gender Information Value Date Recorded Sex Assigned at Not on file Legal Sex Male 4:07 PM CDT Gender Identity Not on file Sexual Orientation Not on file documented as of this encounter Miscellaneous Notes * Cerner Conversion Note - Melanie ProviderMD - 05/29/2019 12:07 AM IN MOLD COATER Provider Notification Entered On: 05/29/2019 2:08 EST Performed On: 05/29/2019 0:07 EST by Jenna Vargas Lpn Provider Notification Provider Notified of Concerns/Results : Other: ANNA with home CPAP Provider Notified Name : FRANCOIS WISE DO Provider Notified Time : 05/29/2019 0:00 EST Jenna Vargas Lpn - 05/29/2019 2:08 EST Electronically signed by Angel [facility] Conversion Screen Repairer Crusher Cerner at 09/05/2022 2:16 PM CDT documented in this encounter Plan of Treatment Not on file documented as of this encounter Visit Diagnoses Not on filedocumented in this encounter
--- OUTSIDE RECORDS SUMMARY | 2025-01-21 08:33 | XMS_ITS | Encounter Summary ---
Author Organization [employer] ([place], [place], [place], [place]) Address [address] [place] [address] Care Team Providers Care Ball Sorter Name Role Phone Unavailable Primary Care Provider Unavailabl e Encounter Details Date Type Department Care Team (Late st Contact Info) Description 05/29/2019 Transcribed Document [facility] [place] [address] [place] [address] ProviderMelanie MD [address] [place] [address] Social History Tobacco Use Types Packs/Day Years Used Date Smoking Tobacco: Never Assessed Sex and Gender Information Value Date Recorded Sex Assigned at Not on file Legal Sex Male 4:07 PM CDT Gender Identity Not on file Sexual Orientation Not on file documented as of this encounter Miscellaneous Notes * Cerner Conversion Note - Historical ProviderMD - 05/29/2019 2:00 AM QUALITY ASSURANCE MONITOR BODY Needle Board Repairer Details Entered On: 05/29/2019 3:59 EST Performed [...] 05/29/2019 3:59 EST Electronically signed by Angel [facility] Conversion Rag Washer Cerner at 09/05/2022 2:19 PM CDT documented in this encounter Plan of Treatment Not on file documented as of this encounter Visit Diagnoses Not on filedocumented in this encounter
--- OUTSIDE RECORDS SUMMARY | 2025-01-21 08:33 | XMS_ITS | Encounter Summary ---
Author Organization [facility] Address [address] [place] [address] Care Team Providers Care Compensation Administrator Name Role Phone Anita Dumas Primary Care Provider [phone] Encounter Details Date Type Department Care Team ([facility] st Contact Info) Description 03/28/2024 Orders Only External Location [address] [place] [address] Provider, External Social History Tobacco Use Types [...] documented as of this encounter Care Teams Compensation Administrator Relationship Specialty Start Date End Date Anita Dumas PA [address] [place] [address] PCP - General 08/06/22 documented as of this encounter
--- OUTSIDE RECORDS SUMMARY | 2025-01-21 08:33 | XMS_ITS | Encounter Summary ---
Author Organization [employer] ([place], [place], [place], [place]) Address [address] [place] [address] Care Team Providers Care Funeral Workers Name Role Phone Unavailable Primary Care Provider Unavailabl e Encounter Details Date Type Department Care Team (Late st Contact Info) Description 05/29/2019 Transcribed Document [facility] [place] Family Medicine [facility] [place] [address] ProviderMelanie MD [facility] [place] [address] Social History Tobacco Use Types Packs/Day Years Used Date Smoking Tobacco: Never Assessed Sex and Gender Information Value Date Recorded Sex Assigned at Not on file Legal Sex Male 4:07 PM CDT Gender Identity Not on file Sexual Orientation Not on file documented as of this encounter Miscellaneous Notes * Cerner Conversion Note - Historical ProviderMD - 05/29/2019 11:15 AM DIRECTOR OF STRATEGIC PARTNERSHIPS [facility] Main OR IntraOp Summary Primary Physician: JC LUQUE MD-SHANTEL Finalized Date/Time: 05/31/19 10:17:06 Pt. Name: MORELCRISTOBAL /Sex: 1960 Male Med Rec #: [id number] Physician: FRANCOIS WISE DO Financial #: [id number] Pt. Type: I Room/Bed: [facility] Admit/Disch: 05/28/19 20:28:00 - Institution: [facility] IntraOp Case Attendance Entry 1 Entry 2 Entry 3 Case Attendee JC LUQUE BOWEN, JON B, MD-ANS OTHER, ATTENDEE -URO Role Performed Surgeon/Proceduralist, Anesthesiologist Resident First Time In 05/29/19 11:00:00 05/29/19 11:00:00 05/29/19 11:00:00 Time Out 05/29/19 12:38:00 05/29/19 12:38:00 05/29/19 12:38:00 Procedure Scrotal Exploration Scrotal Exploration Scrotal Exploration Other Attendee ADOLFO ARRIETA URO Superficial Wound Closed By: Last Modified By: Mikel Irvin RN Pantano, Scott, Mikel Nicole RN 05/29/19 12:40:12 05/29/19 12:40:12 05/29/19 11:27:29 Entry 4 Entry 5 Case Attendee Mikel Irvin, CT HASSAN Role Performed Doctor Of Nursing Practice, First Scrub, First Time In 05/29/19 11:00:00 05/29/19 11:00:00 Time Out 05/29/19 12:38:00 05/29/19 12:38:00 Procedure Scrotal Exploration Scrotal Exploration Other Attendee Superficial Wound Closed By: Last Modified By: Mikel Irvin RN Pantano, Scott, RN 05/29/19 12:40:12 05/29/19 12:40:12 [facility] IntraOp Case Attendance Audit 05/29/19 12:40:12 Bumper And Painter: GISSELLE Modifier: PANTANOS 1 <+> Time Out 1 <*> Procedure Scrotal Exploration 2 <+> Time Out 2 <*> Procedure Scrotal Exploration 3 <+> Time Out 3 <*> Procedure Scrotal Exploration 4 <+> Time Out 4 <*> Procedure Scrotal Exploration 5 <+> Time Out 5 <*> Procedure Scrotal Exploration 05/29/19 11:31:44 Bumper And Painter: BRENTANOS Modifier: PANTANOS <+> 1 Procedure 2 <*> Procedure Scrotal Exploration 3 <*> Procedure Scrotal Exploration 4 <*> Procedure Scrotal Exploration 5 <*> Procedure Scrotal Exploration 05/29/19 11:30:54 Bumper And Painter: BRENTANOS Modifier: PANTANOS 2 <+> Time In 2 <*> Procedure Scrotal Exploration 3 <+> Time In 3 <*> Procedure Scrotal Exploration 4 <+> Time In 4 <*> Procedure Scrotal Exploration 5 <+> Time In 5 <*> Procedure Scrotal Exploration [facility] IntraOp Case Times Entry 1 Patient In Room Time 05/29/19 11:00:00 Out Room Time 05/29/19 12:38:00 Anesthesia Start Time 05/29/19 11:00:00 Stop Time 05/29/19 12:38:00 Surgery / Procedure Times Start Time 05/29/19 11:15:00 Stop Time 05/29/19 12:38:00 Last Modified By: Mikel Irvin RN 05/29/19 12:39:19 [facility] IntraOp Case Times Audit 05/29/19 12:39:19 Bumper And Painter: GISSELLE Modifier: GISSELLE <+> 1 Out Room Time <+> 1 Stop Time <+> 1 Stop Time [facility] IntraOp Cautery Entry 1 ESU Identification Cautery Type Monopolar ESU ID Number [id number] ID Type Hospital Number Cautery Settings Cut Setting 30 Coag Setting 30 ESU Grounding Pad Ground Pad Type Adult Grounding Pad Site Right thigh Grounding Pad Mikel Irvin RN Applied By Grounding Pad Site Dry, Intact, Warm Skin Condition Before Cautery Grounding Pad Site Unchanged Skin Condition After Cautery Last Modified By: Mikel Irvin RN 05/29/19 11:27:43 [facility] IntraOp Communication Entry 1 Communication To Family/Significant other Communication By Mikel Irvin RN Date and Time 05/29/19 11:27:00 Last Modified By: Mikel Irvin RN 05/29/19 11:27:52 [facility] IntraOp Counts Verification Entry 1 Procedure Scrotal Exploration Count Info Count Type Sponge, Sharps, Miscellaneous Counts Verification Baseline/pre-procedure Sequence Count Results Correct, surgeon notified Counts Performed By Count Performed By CT JENKINS (Scrub) Count Performed By Mikel Irvin RN (RN) Last Modified By: Mikel Irvin RN 05/29/19 11:28:08 [facility] IntraOp Counts Final Entry 1 Procedure Scrotal Exploration Final Count Info Count Type Sponge, Sharps, Miscellaneous Counts Verification Skin Closure/end of Sequence procedure Count Results Correct, surgeon notified Counts Performed By Count Performed By CT JENKINS (Scrub) Count Performed By Mikel Irvin RN (RN) Last Modified By: Mikel Irvin RN 05/29/19 11:28:23 [facility] IntraOp Cultures and Spec Summary Entry 1 Cultrures and Specimens Specimen Ordered: Yes Test(s) Blood/Laboratory Requested/Final Disposition Last Modified By: Mikel Irvin RN 05/29/19 11:28:29 [facility] IntraOp Departure from OR Entry 1 Integumentary Assessment Integumentary WDL Assessment WDL Transfer/Handoff Transfer to PACU Phase I Handoff Method Bedside/Face to face, Online nursing summary Post-op Transport Stretcher/Gurney Via Patient Transport MELISSA JIMENEZ MD-ANS, Accompanied by OTHER, ATTENDEE Last Modified By: Mikel Irvin RN 05/29/19 11:28:47 [facility] IntraOp Dressing and Packing Entry 1 Type Packing Wound Dressing Item Kerlix/Leonides Applied By OTHER, ATTENDEE Last Modified By: Mikel Irvin RN 05/29/19 11:29:48 [facility] IntraOp Dressing and Packing Audit 05/29/19 12:38:38 Bumper And Painter: GISSELLE Modifier: GISSELLE 1 <*> Wound Dressing Item 4x4's [facility] IntraOp Fire Risk Assessment Entry 1 Fire [...] Modified By: Mikel Irvin RN 05/29/19 11:28:55 [facility] IntraOp General Case Admissions Representative 1 Case Information OR OR 03 [facility] Case Level 1 Room Verified Yes Wound Class II - Clean-Contaminated Specialty SN Urology Anesthesia Type General ASA Class 3 Diagnosis Preop Diagnosis ABSCESS SCROTUM Postop Same As Preop Yes Postop Diagnosis ABSCESS SCROTUM Last Modified By: Mikel Irvin RN 05/29/19 11:29:56 [facility] IntraOp General Case Data Audit 05/29/19 11:29:56 Bumper And Painter: GISSELLE Modifier: GISSELLE <+> 1 ASA Class [facility] IntraOp Intraoperative Assessment Entry 1 Handoff Method [...] Modified By: Mikel Irvin RN 05/29/19 11:30:07 [facility] IntraOp Intraoperative Equipment Entry 1 Type Monitoring Equipment Intraop Monitoring Electrocardiogram Three lead placement (ECG) Electrode Placement Blood Pressure Non-Invasive BP Device Source Blood Pressure Arm, right upper Location Pulse Oximeter Hand, left Probe Site Antiembolic Devices Antiembolic Devices Sequential compression device, knee high Antiembolic Device Bilateral Location Scopes Photo/Video Documentation Last Modified By: Mikel Irvin RN 05/29/19 11:30:33 [facility] IntraOp Medication Admin Entry 1 Entry 2 Medication/Irrigant Marcaine 0.25% 30ml Bacitracin 50,00units vial - [id number] powder vial Combo Med List Time Administered Route of LOCAL IN IRRIGATION Administration Dose Dose 15 Unit of Measure ml ml Volume Administered By OTHER, ATTENDEE OTHER, ATTENDEE Procedure Irrigation Irrigant Volume In Irrigant Volume Out Last Modified By: Mikel Irvin RN Pantano, Scott, RN 05/29/19 11:33:55 05/29/19 11:33:55 [facility] IntraOp Patient Positioning Entry 1 Procedure Scrotal [...] Modified By: Mikel Irvin RN 05/29/19 11:31:42 [facility] IntraOp Sign In Entry 1 Patient, Site, [...] Modified By: Mikel Irvin RN 05/29/19 11:30:51 [facility] IntraOp Sign Out Entry 1 RN Confirmation [...] Modified By: Mikel Irvin RN 05/29/19 12:24:30 [facility] IntraOp Sign Out Audit 05/29/19 12:40:05 Bumper And Painter: GISSELLE Modifier: GISSELLE <+> 1 RN Sign Out Signature Date/Time [facility] IntraOp Skin Prep Entry 1 Procedure Scrotal Exploration Prescribed N/A Pre-Surgical Prep Completed Prep Area GENITALIA Intraop Prep Integumentary WDL Assessment WDL Prep Agents Betadine scrub, Betadine solution Prep by Mikel Irvin RN Hair Removal Methods No hair removal performed Last Modified By: Mikel Irvin RN 05/29/19 11:29:33 [facility] IntraOp Surgical Procedures Entry 1 Procedure Scrotal Exploration Primary Procedure Yes Primary Surgeon JC LUQUE MD-URO Start 05/29/19 11:15:00 Stop 05/29/19 12:38:00 Anesthesia Type General Specialty SN Urology Wound Class II - Clean-Contaminated Last Modified By: Mikel Irvin RN 05/29/19 11:31:44 [facility] IntraOp Surgical Procedures Audit 05/29/19 12:39:57 Bumper And Painter: GISSELLE Modifier: GISSELLE <+> 1 Stop [facility] IntraOp Temp Regulation Devices Entry 1 Temp Regulation Temperature Warm blankets, Forced Regulation Device Air Warming device Temperature Upper body Regulation Site Temperature MELISSA JIMENEZ MD-ANS Regulation Device Applied by Temperature monitored per Regulation Comment anesthesia, fariha hugger available Last Modified By: Mikel Irvin RN 05/29/19 11:30:40 [facility] IntraOP Time Out Entry 1 Procedure to [...] Modified By: Mikel Irvin RN 05/29/19 11:31:23 [facility] IntraOP Time Out Audit 05/29/19 11:31:23 Bumper And Painter: ENIDNorris Modifier: GISSELLE 1 <+> Beta Asad [...] Unfinalizing Freetext Reason for Unfinalizing 05/31/19 10:16 NESSA Correct Billing documented in this encounter Plan of Treatment Not on file documented as of this encounter Visit Diagnoses Not on filedocumented in this encounter
--- OUTSIDE RECORDS SUMMARY | 2025-01-21 08:33 | XMS_ITS | Encounter Summary ---
Author Organization [employer] ([place], [place], [place], [place]) Address [address] [place] [address] Care Team Providers Care Order Tracer Name Role Phone Unavailable Primary Care Provider Unavailabl e Encounter Details Date Type Department Care Team (Late st Contact Info) Description 05/28/2019 Transcribed Document [facility] [place] Medicine [facility] [place] [address] ProviderMelanie MD [address] [place] [address] Social History Tobacco Use Types Packs/Day Years Used Date Smoking Tobacco: Never Assessed Sex and Gender Information Value Date Recorded Sex Assigned at Not on file Legal Sex Male 4:07 PM CDT Gender Identity Not on file Sexual Orientation Not on file documented as of this encounter Miscellaneous Notes * Cerner Conversion Note - Melanie ProviderMD - 05/28/2019 6:12 PM NEWS SPECIALIST ED Triage Entered On: 05/28/2019 18:28 EST [...] : 3 - Urgent Tracking Group : [facility] ED KEN GAY RN - 05/28/2019 [...] PNED ; Probability: 0 ; Diagnosis Code: [id number] ED Height and Weight Height Source : Stated Height Entry Format : [place] Height, Feet : 5 ft(Converted to: 152 cm, 60 Inch) Height, Inches : 4 Inch(Converted to: 0 ft 4 Inch, 10.16 cm) Clinical Height : 162.56 cm Weight Source, ED : Critical estimated dosing weight Weight Entry Format : [place] Weight, Pounds : 225 lb Clinical Dosing Weight : 102.27 kg Body Surface Area (BSA) : 2.06 m2 Body Mass Index : 38.7 kg/m2 (HI) [place] Body Weight (IBW) : 58.3 kg KEN GAY RN - 05/28/2019 18:16 EST Electronically signed by Angel [facility] Conversion Machine Molder Cerner at 09/05/2022 2:17 PM CDT documented in this encounter Plan of Treatment Not on file documented as of this encounter Visit Diagnoses Not on filedocumented in this encounter
--- OUTSIDE RECORDS SUMMARY | 2025-01-21 08:33 | XMS_ITS | Encounter Summary ---
Author Organization [employer] ([place], [place], [place], [place]) Address [address] [place] [address] Care Team Providers Care Fire Fighter Name Role Phone Unavailable Primary Care Provider Unavailabl e Encounter Details Date Type Department Care Team (Late st Contact Info) Description 05/28/2019 Transcribed Document [facility] [place] [facility] [place] [address] ProviderMelanie MD [facility] [place] [address] Social History Tobacco Use Types Packs/Day Years Used Date Smoking Tobacco: Never Assessed Sex and Gender Information Value Date Recorded Sex Assigned at Not on file Legal Sex Male 4:07 PM CDT Gender Identity Not on file Sexual Orientation Not on file documented as of this encounter Miscellaneous Notes * Cerner Conversion Note - Melanie ProviderMD - 05/28/2019 6:12 PM SUGAR TRUCKER ED Assessment Entered On: 05/28/2019 18:55 EST [...] Communication Barrier : None Primary Language : Togolese Any Spiritual/Cultural Needs or Requests : No [...] 18:51 EST Respiratory Respiratory Assessment WDL : [facility] SHAUNNA WEST RN - 05/28/2019 18:51 EST Genitourinary Assessment, ED Genitourinary Assessment WDL : [facility] with exceptions (Comment: pt c/o non-healing [...] Neurologic ASMT, ED Neurologic Assessment WDL : [facility] [place] Coma Scale Link : Open [facility] SHAUNNA WEST RN - 05/28/2019 18:51 EST [place] Coma Felipa Best Motor Response : Obey commands [place] Best Verbal Response : Oriented Felipa Eye Opening Response : Spontaneous Felip[place] Coma Score : 15 SHAUNNA WEST RN - 05/28/2019 18:51 EST Electronically signed by Angel [facility] Conversion Back Shoe Operator Cerner at 09/05/2022 2:27 PM CDT documented in this encounter Plan of Treatment Not on file documented as of this encounter Visit Diagnoses Not on filedocumented in this encounter
--- OUTSIDE RECORDS SUMMARY | 2025-01-21 08:33 | XMS_ITS | Encounter Summary ---
Author Organization [facility] Address [address] [place] [address] Care Team Providers Care Assistant Tennis Coach Name Role Phone Anita Dumas Primary Care Provider [phone] Encounter Details Date Type Department Care Team ([facility] st Contact Info) Description 05/30/2024 Orders Only External Location [address] [place] [address] Provider, External Social History Tobacco Use Types [...] documented as of this encounter Care Teams Assistant Tennis Coach Relationship Specialty Start Date End Date Anita Dumas PA [address] [place] [address] PCP - General 08/06/22 documented as of this encounter
--- OUTSIDE RECORDS SUMMARY | 2025-01-21 08:33 | XMS_ITS | Encounter Summary ---
Author Organization [employer] ([place], [place], [place], [place]) Address [address] [place] [address] Care Team Providers Care Wet Inspector Optical Glass Name Role Phone Unavailable Primary Care Provider Unavailabl e Encounter Details Date Type Department Care Team (Late st Contact Info) Description 05/29/2019 Transcribed Document [facility] [place] [facility] [place] [address] ProviderMelanie MD [place] [address] Social History Tobacco Use Types Packs/Day Years Used Date Smoking Tobacco: Never Assessed Sex and Gender Information Value Date Recorded Sex Assigned at Not on file Legal Sex Male 4:07 PM CDT Gender Identity Not on file Sexual Orientation Not on file documented as of this encounter Miscellaneous Notes * Cerner Conversion Note - Melanie ProviderMD - 05/29/2019 4:43 AM REHABILITATION THERAPY TECHNICIAN Education-Diabetes Topics Entered On: 05/29/2019 6:31 [...] Jenna Vargas Lpn - 05/29/2019 6:31 EST Electronically signed by Angel [facility] Conversion Yarn Hauler [place] at 09/05/2022 2:15 PM CDT documented in this encounter Plan of Treatment Not on file documented as of this encounter Visit Diagnoses Not on filedocumented in this encounter
--- OUTSIDE RECORDS SUMMARY | 2025-01-21 08:34 | XMS_ITS | Encounter Summary ---
Author Organization [employer] ([place], [place], [place], [place]) Address [address] [place] [address] Care Team Providers Care Client Care Specialist Name Role Phone Unavailable Primary Care Provider Unavailabl e Encounter Details Date Type Department Care Team (Late st Contact Info) Description 05/29/2019 Transcribed Document [facility] [place] Family Medicine [address] [place] [address] ProviderMelanie MD [facility] [place] [address] Social History Tobacco Use Types Packs/Day Years Used Date Smoking Tobacco: Never Assessed Sex and Gender Information Value Date Recorded Sex Assigned at Not on file Legal Sex Male 4:07 PM CDT Gender Identity Not on file Sexual Orientation Not on file documented as of this encounter Miscellaneous Notes * Cerner Conversion Note - Melanie ProviderMD - 05/29/2019 8:00 AM MANAGER TRUCK Consult Phone Call Documentation Entered On: 05/29/2019 [...]
--- OUTSIDE RECORDS SUMMARY | 2025-01-21 08:34 | XMS_ITS | Encounter Summary ---
Author Organization [employer] ([place], [place], [place]) Address [address] [place] [address] Care Team Providers Care Emergency Medical Dispatcher Name Role Phone Unavailable Primary Care Provider Unavailabl e Encounter Details Date Type Department Care Team (Late st Contact Info) Description 05/31/2019 Transcribed Document [facility] [place] Family Medicine [address] [place] [address] ProviderMelanie MD [facility] [place] [address] Social History Tobacco Use Types Packs/Day Years Used Date Smoking Tobacco: Never Assessed Sex and Gender Information Value Date Recorded Sex Assigned at Not on file Legal Sex Male 4:07 PM CDT Gender Identity Not on file Sexual Orientation Not on file documented as of this encounter Miscellaneous Notes * Cerner Conversion Note - Historical ProviderMD - 05/31/2019 5:00 AM MOTOR POWER CONNECTOR Chart Check - Review Order Profile Entered [...]
--- OUTSIDE RECORDS SUMMARY | 2025-01-21 08:34 | XMS_ITS | Encounter Summary ---
Author Organization [employer] ([place], [place], [place], [place]) Address [address] [place] [address] Care Team Providers Care Quality Associate Name Role Phone Unavailable Primary Care Provider Unavailabl e Encounter Details Date Type Department Care Team (Late st Contact Info) Description 05/31/[address] [facility] [place] [address] ProviderMelanie MD [address] [place] [address] Social History Tobacco Use Types Packs/Day Years Used Date Smoking Tobacco: Never Assessed Sex and Gender Information Value Date Recorded Sex Assigned at Not on file Legal Sex Male 4:07 PM CDT Gender Identity Not on file Sexual Orientation Not on file documented as of this encounter Miscellaneous Notes * Cerner Conversion Note - Melanie Grider MD - 05/31/2019 3:07 PM CURING OVEN ATTENDANT WO Inpatient Documentation Entered On: 05/31/2019 15:13 EST Performed On: 05/31/2019 15:07 EST by Jenise Ortiz Rn-Enterostomal WO Admission Date : Admit Date 05/28/2019 20:[address] : Diagnosis (7) Abscess - complicated Inflammatory disorders of scrotum Pain, unspecified Cellulitis, unspecified Cellulitis, unspecified Abscess of epididymis or testis Abscess of epididymis or testis Reason for WO Visit : Initial consult Admitting Diagnosis ST : Reason for Admission scrotal abscess WOCN Assessment Summary : Urologist request application of NPWT to scrotum s/p exploration and debridement. MACHINE EGG WASHER used by jag. Soaked Gauze with saline [...] Ulcer WOCN Wound Pressure Ulcer Documentation : [id number] Abnormality: Scrotum Posterior on 05/31/2019 15:05 by Jenise Ortiz Rn-Enterostomal I/W/A Present on Admission to Hospital: Yes I/W/A Type: Incision, open I/W/A Dressing Status: Intact I/W/A Dressing Activity: Assessed, Dressing changed I/W/A Wound Date of Dressing Change: :0.255202:0:0 I/W/A Wound Bed Description: Full-thickness, Undermining I/W/A [...] Initial set-up application NPWT Inpatient Start Date: :0.548967:0:0 NPWT Device Used: Renasys Type of Foam/Gauze [...] - 05/31/2019 15:07 EST Electronically signed by [facility] Conversion Mechanical Test Technician Cerner at 09/05/2022 2:03 PM CDT documented in this encounter Plan of Treatment Not on file documented as of this encounter Visit Diagnoses Not on filedocumented in this encounter
--- OUTSIDE RECORDS SUMMARY | 2025-01-21 08:34 | XMS_ITS | Encounter Summary ---
Author Organization [employer] ([place], [place], [place]) Address [address] [place] [address] Care Team Providers Care Women Specialist Name Role Phone Unavailable Primary Care Provider Unavailabl e Encounter Details Date Type Department Care Team (Late st Contact Info) Description 05/31/2019 Transcribed Document [facility] [place] [address] ProviderMelanie MD [place] [address] Social History Tobacco Use Types Packs/Day Years Used Date Smoking Tobacco: Never Assessed Sex and Gender Information Value Date Recorded Sex Assigned at Not on file Legal Sex Male 4:07 PM CDT Gender Identity Not on file Sexual Orientation Not on file documented as of this encounter Miscellaneous Notes * Cerner Conversion Note - Melanie ProviderMD - 05/31/2019 11:19 PM JUDICIAL ADMINISTRATIVE ASSISTANT Patient: TERRI VARGAS Age: 59 Years Sex: [...] still not adequate - will increase dilaudid ORTHOPEDIC RADIOLOGIC TECHNOLOGIST and allow oral oxcodone as needed. 2. [...] Oral, At Bedtime Dilaudid 6 mg/30 ml ORTHOPEDIC RADIOLOGIC TECHNOLOGIST 6 mg, 6 mg= 30 mL, IntraVENous [...] No 05/31/2019 07:07 EST Electronically signed by Angel, [facility] Conversion Multiple Punch Press Operator Cerner at 09/05/2022 2:15 PM CDT documented in this encounter Plan of Treatment Not on file documented as of this encounter Visit Diagnoses Not on filedocumented in this encounter
--- OUTSIDE RECORDS SUMMARY | 2025-01-21 08:34 | XMS_ITS | Encounter Summary ---
Author Organization [employer] ([place], [place], [place], [place]) Address [address] [place] [address] Care Team Providers Care Java Architect Name Role Phone Unavailable Primary Care Provider Unavailabl e Encounter Details Date Type Department Care Team (Late st Contact Info) Description 05/30/2019 Transcribed Document [facility] [place] Family Medicine [address] [place] [address] ProviderMelanie MD [facility] [place] [address] Social History Tobacco Use Types Packs/Day Years Used Date Smoking Tobacco: Never Assessed Sex and Gender Information Value Date Recorded Sex Assigned at Not on file Legal Sex Male 4:07 PM CDT Gender Identity Not on file Sexual Orientation Not on file documented as of this encounter Miscellaneous Notes * Cerner Conversion Note - Historical ProviderMD - 05/30/2019 11:23 AM TRACK MAN On Going Discharge Planning Entered On: 05/30/2019 11:23 EST Performed On: 05/30/2019 11:23 EST by LYNDSEY GAY RN-Supervisor Color Paste MixingSupervisor Wet Pour Progress Note Discharge Arrangements : Patient Post-Acute Information Patient Name: TERRI VARGAS Gender: Male : 62 Age: 59 Years No Post-Acute Placement(s) Listed No Post-Acute Service(s) Listed No Curaspan Referral(s) Listed Did you Attend Multidisciplinary Rounds? : Yes LYNDSEY GAY RN-Supervisor Color Paste Mixing - 05/30/2019 11:23 EST Electronically signed by Angel [facility] Conversion General Expeditor Cerner at 09/05/2022 2:03 PM CDT documented in this encounter Plan of Treatment Not on file documented as of this encounter Visit Diagnoses Not on filedocumented in this encounter
--- OUTSIDE RECORDS SUMMARY | 2025-01-21 08:34 | XMS_ITS | Encounter Summary ---
Author Organization [employer] ([place], [place], [place], [place]) Address [address] [place] [address] Care Team Providers Care Retail Receiving Clerk Name Role Phone Unavailable Primary Care Provider Unavailabl e Encounter Details Date Type Department Care Team (Late st Contact Info) Description 05/31/2019 Transcribed Document [facility] [place] Family Medicine [facility] [place] [address] ProviderMelanie MD [facility] [place] [address] Social History Tobacco Use Types Packs/Day Years Used Date Smoking Tobacco: Never Assessed Sex and Gender Information Value Date Recorded Sex Assigned at Not on file Legal Sex Male 4:07 PM CDT Gender Identity Not on file Sexual Orientation Not on file documented as of this encounter Miscellaneous Notes * Cerner Conversion Note - Melanie ProviderMD - 05/31/2019 2:56 PM DRAG OUT WORKER On Going Discharge Planning Entered On: 05/31/2019 14:57 EST Performed On: 05/31/2019 14:56 EST by LYNDSEY GAY RN-Sack RepairerCan Filling Room Sweeper Progress Note Discharge Arrangements : Patient Post-Acute Information Patient Name: TERRI VARGAS Gender: Male : 62 Age: 59 Years No Post-Acute Placement(s) Listed No Post-Acute Service(s) Listed No Curaspan Referral(s) Listed Barriers to Discharge Identified : Clinical Condition of Patient Barriers to Discharge Unresolved : Clinical Condition of Patient Did you Attend Multidisciplinary Rounds? : Yes LYNDSEY GAY RN-Sack Repairer - 05/31/2019 14:56 EST Narrative Progress Note Narrative Progress Note : Met with Pt on MDR rounds. Pain continues to be an issue, Dilaudid ELECTROPLATING SALES REPRESENTATIVE in use. Plans are to place a wound vac sometime today. CM will follow. LYNDSEY GAY, RN-Sack Repairer - 05/31/2019 14:56 EST documented in this encounter Plan of Treatment Not on file documented as of this encounter Visit Diagnoses Not on filedocumented in this encounter
--- OUTSIDE RECORDS SUMMARY | 2025-01-21 08:34 | XMS_ITS | Encounter Summary ---
Author Organization [employer] ([place], [place], [place], [place]) Address [address] [place] [address] Care Team Providers Care Stable Cleaner Name Role Phone Unavailable Primary Care Provider Unavailabl e Encounter Details Date Type Department Care Team (Late st Contact Info) Description 05/31/2019 Transcribed Document [facility] [place] [facility] [place] [address] ProviderMelanie MD [address] [place] [id number] Social History Tobacco Use Types Packs/Day Years Used Date Smoking Tobacco: Never Assessed Sex and Gender Information Value Date Recorded Sex Assigned at Not on file Legal Sex Male 4:07 PM CDT Gender Identity Not on file Sexual Orientation Not on file documented as of this encounter Miscellaneous Notes * Cerner Conversion Note - Melanie Grider MD - 05/31/2019 4:40 PM ABSTRACT MAKER Patient: TERRI MOREL Age: 59 years Sex: [...] the wound and he has been taking [place] Percocet and morphine at home with no [...] (MAY 30 18:30) Apical HR 72 (MAY 31:) 72 (MAY 31:) 72 (MAY 31:) Mon HR 85 (MAY 31:) 46 (MAY 30 22:31) 92 (MAY 31:) Resp Rate 18 (MAY 31:) 14 (MAY 30:30) 19 (MAY 31 03:00) SBP H 151 (MAY 31:) 126 (MAY 30:) H 169 (MAY 30:31) DBP H 96 (MAY 31:) 75 (MAY 31 12:00) H 106 (MAY 31:) MAP 116 (MAY 31:) 100 (MAY 30 18:30) 134 (MAY 30:31) SpO2 96 (MAY 31:) [...]
--- OUTSIDE RECORDS SUMMARY | 2025-01-21 08:34 | XMS_ITS | Encounter Summary ---
Author Organization [employer] ([place], [place], [place], [place]) Address [address] [place] [address] Care Team Providers Care Stereoplotter Operator Name Role Phone Unavailable Primary Care Provider Unavailabl e Encounter Details Date Type Department Care Team (Late st Contact Info) Description 05/30/2019 Transcribed Document [facility] [place] [facility] [place] [address] ProviderMelanie MD [address] [place] [id number] Social History Tobacco Use Types Packs/Day Years Used Date Smoking Tobacco: Never Assessed Sex and Gender Information Value Date Recorded Sex Assigned at Not on file Legal Sex Male 4:07 PM CDT Gender Identity Not on file Sexual Orientation Not on file documented as of this encounter Miscellaneous Notes * Cerner Conversion Note - Melanie Grider MD - 05/30/2019 12:42 PM TIEDOWN OPERATOR Patient: TERRI MOREL Age: 59 years [...] the wound and he has been taking [place] Percocet and morphine at home with no [...] 30:10) 72 (MAY 29 17:25) 80 (MAY 30 06:10) Mon HR 80 (MAY 30:11) 60 (MAY 29 13:36) 80 (MAY 30 06:11) Resp Rate 19 (MAY 30:) L 12 (MAY 29 12:55) 19 (MAY 29 12:50) SBP H 158 (MAY 30:11) 127 (MAY 29 23:24) H 183 (MAY 29 13:00) DBP H 101 (MAY 30:) 75 (MAY 29 13:05) H 158 (MAY 30:) MAP 132 (MAY 30:) 91 (MAY 29 23:24) 137 (MAY 29 13:00) SpO2 95 (MAY 30:11) 95 (MAY 29 12:50) 100 (MAY 29 [...] process/pending Rad: Radiology Results (Last 48 hours) [id number] -- 05/28/2019 20:28 CR Chest 1 Vw [...]
--- OUTSIDE RECORDS SUMMARY | 2025-01-21 08:34 | XMS_ITS | Encounter Summary ---
Author Organization [employer] ([place], [place], [place], [place]) Address [address] [place] [address] Care Team Providers Care Band Shover Name Role Phone Unavailable Primary Care Provider Unavailabl e Encounter Details Date Type Department Care Team (Late st Contact Info) Description 06/01/2019 Transcribed Document [facility] [place] [address] [place] [address] ProviderMelanie MD [facility] [place], [place] [id number] Social History Tobacco Use Types Packs/Day Years Used Date Smoking Tobacco: Never Assessed Sex and Gender Information Value Date Recorded Sex Assigned at Not on file Legal Sex Male 4:07 PM CDT Gender Identity Not on file Sexual Orientation Not on file documented as of this encounter Miscellaneous Notes * Cerner Conversion Note - Historical ProviderMD - 06/01/2019 4:51 PM CURTAIN CLEANER Nursing Discharge Summary Entered On: 06/01/2019 16:51 EST Performed On: 06/01/2019 16:51 EST by SERVANDO BARILLAS sternman Documentation Discharge Date/Time : 06/01/2019 18:00 EST [...] materials Teaching Evaluation : Verbalizes understanding SERVANDO BARILLAS RN - 06/01/2019 16:51 EST Electronically signed by Angel [facility] Conversion V Belt Coverer Cerner at 09/05/2022 2:04 PM CDT documented in this encounter Plan of Treatment Not on file documented as of this encounter Visit Diagnoses Not on filedocumented in this encounter
--- OUTSIDE RECORDS SUMMARY | 2025-01-21 08:34 | XMS_ITS | Encounter Summary ---
Author Organization [employer] ([place], [place], [place], [place]) Address [address] [place] [address] Care Team Providers Care Process Consultant Name Role Phone Unavailable Primary Care Provider Unavailabl e Encounter Details Date Type Department Care Team (Late st Contact Info) Description 05/29/2019 Transcribed Document [facility] [place] Family Medicine Critical [place] [address] ProviderMelanie MD [address] [place] [address] Social History Tobacco Use Types Packs/Day Years Used Date Smoking Tobacco: Never Assessed Sex and Gender Information Value Date Recorded Sex Assigned at Not on file Legal Sex Male 4:07 PM CDT Gender Identity Not on file Sexual Orientation Not on file documented as of this encounter Miscellaneous Notes * Cerner Conversion Note - Melanie Grider MD - 05/29/2019 1:38 PM CAPACITOR TESTER DATE OF PROCEDURE: 05/29/2019 SURGEON: Claudy Pro [...] inpatient stay for antibiotics and wound care. /[id number] DICTATED BY: Nicolasa Arguello MD for Claudy Pro MD MD LOUIS Martinez/LESLEY / LOUIS / ANGELAL /[id number] Electronically signed by Angel [facility] Conversion Kiln Placer Cerner at 09/05/2022 2:31 PM CDT documented in this encounter Plan of Treatment Not on file documented as of this encounter Visit Diagnoses Not on filedocumented in this encounter
--- OUTSIDE RECORDS SUMMARY | 2025-01-21 08:34 | XMS_ITS | Clinical Summary ---
Author Organization [facility] Address [address] [place] [address] Phone Care Team Providers Care Varnish Dipper Name Role Phone Renzo BEARD, Chuck Schaffer [phone] [ ] Conditions or Problems Problem Name Problem Code Onset Date Status Entry Date Provider Comment Standard Description Annotate Orchitis 851038657 (SNOMED CT) 06/03 Active 06/03 Renata Mello Orchitis Coronary artery disease, S/P CABG 51018789 (SNOMED CT) 06/03 Active 06/03 Renata Mello Coronary arteriosclerosis Skin tissue necrosis 85210040 (SNOMED CT) 06/03 Active 06/03 Renata Mello Skin necrosis DM Type II E11.9 (ICD-10-CM) 06/03 Active 06/03 Renata Mello Type 2 diabetes mellitus without complications Abscess/Cell ulitis, scrotal 62614373 (SNOMED CT) 06/03 Active 06/03 Renata Mello Abscess of scrotum Nicotine dependence, cigarettes 521048570 (SNOMED CT) 06/03 Active 06/03 Renata Mello Tobacco user Medications Medication Instructions Start Date Stop Date Generic Name [facility][NOTE 3] Provider ZOFRAN 4 MG ORAL TABLET 1 tablet every 8 hours as needed ONDANSETRON HCL 64385390972 Huan Shah MS CONTIN 15 MG CR-TABS 1 tablet twice daily MORPHINE SULFATE 61573511537 Huan Shah JANUMET 50-1000 MG TABS 1 tablet twice daily SITAGLIPTIN-METFO RMIN HCL 46230131125 Huan Shah DESIPRAMINE HCL 25 MG TABS 1 tablet nightly DESIPRAMINE HCL 64244574721 [facility] COREG 25 MG TABS 1 tablet twice daily CARVEDILOL 04095842776 [facility] OMEPRAZOLE 40 MG CPDR 1 capsule daily OMEPRAZOLE 48758805360 [facility] ALTOPREV 40 MG XG80P-[id number] 1 tablet daily LOVASTATIN 38852898413 [facility] LISINOPRIL-HYDROCH LOROTHIAZIDE 10-12.5 MG TABS 1 tablet twice daily LISINOPRIL-HYDROC HLOROTHIAZIDE 41678794005 [facility] FARXIGA 10 MG TABS 1 tablet daily DAPAGLIFLOZIN PROPANEDIOL 35590451153 [facility] CYCLOBENZAPRINE HCL 10 MG TABS 1 tablet 3 times daily as needed for spasms CYCLOBENZAPRINE HCL 41842294485 [facility] ADULT ASPIRIN REGIMEN 81 MG ORAL TABLET DELAYED RELEASE 1 tablet daily ASPIRIN 53604681868 [facility] PERCOCET 10-325 MG TABS 1 tablet every 4 hours as needed OXYCODONE-ACETAMI NOPHEN 46654299126 [facility] ADALAT CC 90 MG ORAL TABLET EXTENDED RELEASE 24 HOUR 1 tablet daily NIFEDIPINE 77854684695 [facility] CYMBALTA 60 MG ORAL CAPSULE DELAYED RELEASE PARTICLES 1 capsule daily DULOXETINE HCL 61425378385 [facility] ACIDOPHILUS 100 MG CAPS 1 capsule twice daily LACTOBACILLUS 49294966974 [facility] AVIDOXY 100 MG TABS 1 tablet twice daily DOXYCYCLINE MONOHYDRATE 87668508784 [facility] AMOXICILLIN-POT CLAVULANATE 875-125 MG TABS 1 tablet twice daily AMOXICILLIN-POT CLAVULANATE 98167486439 [facility] Medications Administered No information available. Allergies, Adverse [...]
--- OUTSIDE RECORDS SUMMARY | 2025-01-21 08:34 | XMS_ITS | Encounter Summary ---
Author Organization [employer] ([place], [place], [place], [place]) Address [address] [place] [address] Care Team Providers Care Net Developer Name Role Phone Unavailable Primary Care Provider Unavailabl e Encounter Details Date Type Department Care Team (Late st Contact Info) Description 05/30/2019 Transcribed Document [facility] [place] [facility] [place] [address] ProviderMelanie MD [facility] [place] [address] Social History Tobacco Use Types Packs/Day Years Used Date Smoking Tobacco: Never Assessed Sex and Gender Information Value Date Recorded Sex Assigned at Not on file Legal Sex Male 4:07 PM CDT Gender Identity Not on file Sexual Orientation Not on file documented as of this encounter Miscellaneous Notes * Cerner Conversion Note - Melanie ProviderMD - 05/30/2019 11:16 AM DIRECTOR AGRICULTURAL SERVICES Initial Discharge Planning Entered On: 05/30/2019 11:18 EST Performed On: 05/30/2019 11:16 EST by LYNDSEY GAY RN-Fast Food Crew Member Initial Assessment I Previously Documented Living Environment : No qualifying data available. LYNDSEY GAY RN-Fast Food Crew Member - 05/30/2019 11:19 EST Living Situation : [...] Is Guardianship Needed : No LYNDSEY GAY RN-Fast Food Crew Member - 05/30/2019 11:16 EST Initial Assessment II Sensory and Motor Deficits : None Current Home Treatments and Equipment : CPAP, [place] (Comment: Rollator [LYNDSEY GAY RN-Fast Food Crew Member - 05/30/2019 11:19 EST] ) Home Equipment Contact Information : [facility] provider [phone] Services and Community Resources : Home Health (Comment: Pt states that he was current with [facility] [LYNDSEY GAY RN-Fast Food Crew Member - 05/30/2019 11:19 EST] ) Does the Patient have a Floor to SNF Benefit? : Yes LYNDSEY GAY RN-Fast Food Crew Member - 05/30/2019 11:16 EST Discharge Needs I Anticipated Discharge Date : 05/31/2019 EST Anticipated Discharge To, CM : Home with home health Current Home Treatment/Equipment : Current Home Treatment/Equipment No qualifying data available. Post Acute/Home Treatments : None Documentation Status Complete : Yes LYNDSEY GAY RN-Fast Food Crew Member - 05/30/2019 11:16 EST Discharge Needs II Professional Skilled Services : Professional Skilled Services No qualifying data available. Needs Assistance with Transportation : No LYNDSEY GAY RN-Fast Food Crew Member - 05/30/2019 11:16 EST Narrative Note Narrative [...] @ 40. CM will follow. LYNDSEY GAY RN-Fast Food Crew Member - 05/30/2019 11:19 EST Electronically signed by Nicci Ortiz Conversion Coding And Reimbursement Specialist Cerner at 09/05/2022 2:21 PM CDT documented in this encounter Plan of Treatment Not on file documented as of this encounter Visit Diagnoses Not on filedocumented in this encounter
--- OUTSIDE RECORDS SUMMARY | 2025-01-21 08:34 | XMS_ITS | Encounter Summary ---
Author Organization [employer] ([place], [place], [place], [place]) Address [address] [place] [address] Care Team Providers Care Stacker Name Role Phone Unavailable Primary Care Provider Unavailabl e Encounter Details Date Type Department Care Team (Late st Contact Info) Description 05/30/2019 Transcribed Document [facility] [place] Family Medicine [address] [place] [address] ProviderMelanie MD [address] [place] [address] Social History Tobacco Use Types Packs/Day Years Used Date Smoking Tobacco: Never Assessed Sex and Gender Information Value Date Recorded Sex Assigned at Not on file Legal Sex Male 4:07 PM CDT Gender Identity Not on file Sexual Orientation Not on file documented as of this encounter Miscellaneous Notes * [employer]ner Conversion Note - Historical ProviderMD - 05/30/2019 2:00 AM BASEBALL INSPECTOR Carpet Cutter Details Entered On: 05/30/2019 1:06 EST Performed On: 05/30/2019 2:00 EST by Jenan Vargas Lpn Order Details Transport Mode Order [...] 05/30/2019 1:06 EST Electronically signed by Angel [facility] Conversion Biofuels Processing Technician Cerner at 09/05/2022 2:22 PM CDT documented in this encounter Plan of Treatment Not on file documented as of this encounter Visit Diagnoses Not on filedocumented in this encounter
--- OUTSIDE RECORDS SUMMARY | 2025-01-21 08:34 | XMS_ITS | Encounter Summary ---
Author Organization [employer] ([place], [place], [place], [place]) Address [address] [place] [address] Care Team Providers Care Culinary Arts Teacher Name Role Phone Unavailable Primary Care Provider Unavailabl e Encounter Details Date Type Department Care Team (Late st Contact Info) Description 05/30/2019 Transcribed Document [facility] [place] [facility] [place] [address] ProviderMelanie MD [facility] [place] [address] Social History Tobacco Use Types Packs/Day Years Used Date Smoking Tobacco: Never Assessed Sex and Gender Information Value Date Recorded Sex Assigned at Not on file Legal Sex Male 4:07 PM CDT Gender Identity Not on file Sexual Orientation Not on file documented as of this encounter Miscellaneous Notes * Cerner Conversion Note - Melanie ProviderMD - 05/30/2019 12:17 PM PSYCHIATRIC ARNP [facility] Inpatient Documentation Entered On: 05/30/2019 12:18 EST Performed On: 05/30/2019 12:17 EST by Jenise Ortiz Rn-Enterostommiriam WO Admission Date : Admit Date 05/28/2019 20:[address] : Diagnosis (7) Abscess - complicated Inflammatory disorders of scrotum Pain, unspecified Cellulitis, unspecified Cellulitis, unspecified Abscess of epididymis or testis Abscess of epididymis or testis Reason for WO Visit : Initial consult Admitting Diagnosis ST : Reason for Admission scrotal abscess WO Assessment Summary : Consult received for scrotum, however it is noted since consult placed Dr. Arguello has taken the patient to OR for exploration and debridement. Today Dr. Arguello states - urology to perform dressing changes today for frequent wound evaluations with possible wound vac tomorrow. Will follow as indicated by urology. Jenise Ortiz Rn-Enterostomal - 05/30/2019 12:17 EST Electronically signed by Angel [facility] Conversion Makeup Artistry Instructor Cerner at 09/05/2022 2:24 PM CDT documented in this encounter Plan of Treatment Not on file documented as of this encounter Visit Diagnoses Not on filedocumented in this encounter
--- OUTSIDE RECORDS SUMMARY | 2025-01-21 08:34 | XMS_ITS | Encounter Summary ---
Author Organization [employer] ([place], [place], [place], [place]) Address [address] [place] [address] Care Team Providers Care Electronic Publisher Name Role Phone Unavailable Primary Care Provider Unavailabl e Encounter Details Date Type Department Care Team (Late st Contact Info) Description 05/30/2019 Transcribed Document [facility] Radiology [address] [place] [address] Provider [facility] MD Melanie Social History Tobacco Use Types Packs/Day Years Used Date Smoking Tobacco: Never Assessed Sex and Gender Information Value Date Recorded Sex Assigned at Not on file Legal Sex Male 4:07 PM CDT Gender Identity Not on file Sexual Orientation Not on file documented as of this encounter Miscellaneous Notes * Cerner Conversion Note - [facility] Melanie ProviderMD - 05/30/2019 6:00 AM EST Chart Check - Review Order Profile Entered On: 05/30/2019 5:07 EST Performed On: 05/30/2019 5:00 EST by Jenna Vargas Lpn Chart Check Powerplans Initiated/Discontinued as Appropriate : Yes All Active Orders Reviewed : Yes Jenna Vargas Lpn - 05/30/2019 5:07 EST Electronically signed by Angel [facility] Conversion Tax Specialist Cerner at 10/14/2022 2:01 PM CDT documented in this encounter Plan of Treatment Not on file documented as of this encounter Visit Diagnoses Not on filedocumented in this encounter
--- OUTSIDE RECORDS SUMMARY | 2025-01-21 08:34 | XMS_ITS | Encounter Summary ---
Author Organization [employer] ([place], [place], [place], [place]) Address [address] [place] [address] Care Team Providers Care Retort Engineer Name Role Phone Unavailable Primary Care Provider Unavailabl e Encounter Details Date Type Department Care Team (Late st Contact Info) Description 05/31/2019 Transcribed Document [facility] [place] [address] [place] [address] ProviderMelanie MD [address] [place] [address] Social History Tobacco Use Types Packs/Day Years Used Date Smoking Tobacco: Never Assessed Sex and Gender Information Value Date Recorded Sex Assigned at Not on file Legal Sex Male 4:07 PM CDT Gender Identity Not on file Sexual Orientation Not on file documented as of this encounter Miscellaneous Notes * Cerner Conversion Note - Historical ProviderMD - 05/31/2019 2:00 AM SOLAR ENERGY CONSULTANT AND DESIGNER Community Health Coordinator Details Entered On: 05/31/2019 8:04 EST Performed [...] : Appropriate Arterial Line : No Kristofer Lua, RN - 05/31/2019 8:04 EST documented in this encounter Plan of Treatment Not on file documented as of this encounter Visit Diagnoses Not on filedocumented in this encounter
--- OUTSIDE RECORDS SUMMARY | 2025-01-21 08:34 | XMS_ITS | Encounter Summary ---
Author Organization [employer] ([place], [place], [place], [place]) Address [address] [place] [address] Care Team Providers Care Rest Room Maid Name Role Phone Unavailable Primary Care Provider Unavailabl e Encounter Details Date Type Department Care Team (Late st Contact Info) Description 05/31/2019 Transcribed Document [facility] [place] Medicine [address] [place] [address] ProviderMelanie MD [facility] [place] [address] Social History Tobacco Use Types Packs/Day Years Used Date Smoking Tobacco: Never Assessed Sex and Gender Information Value Date Recorded Sex Assigned at Not on file Legal Sex Male 4:07 PM CDT Gender Identity Not on file Sexual Orientation Not on file documented as of this encounter Miscellaneous Notes * Cerner Conversion Note - Historical ProviderMD - 05/31/2019 5:00 PM CHAIR CAR DRIVER Chart Check - Review Order Profile Entered On: 05/31/2019 18:42 EST Performed On: 05/31/2019 17:00 EST by SERVANDO BARILLAS RN Chart Check Powerplans Initiated/Discontinued as Appropriate : Yes All Active Orders Reviewed : Yes SERVANDO BARILLAS RN - 05/31/2019 18:42 EST documented in this encounter Plan of Treatment Not on file documented as of this encounter Visit Diagnoses Not on filedocumented in this encounter
--- OUTSIDE RECORDS SUMMARY | 2025-01-21 08:34 | XMS_ITS | Encounter Summary ---
Author Organization [facility] Address [address] [place] [address] Care Team Providers Care Program Assistant Name Role Phone Anita Dumas Primary Care Provider [phone] Encounter Details Date Type Department Care Team ([facility] st Contact Info) Description 03/28/2024 Orders Only External Location [address] [place] [address] Provider, External Social History Tobacco Use Types [...] documented as of this encounter Care Teams Program Assistant Relationship Specialty Start Date End Date Anita Dumas PA [address] [place] [address] PCP - General 08/06/22 documented as of this encounter
--- OUTSIDE RECORDS SUMMARY | 2025-01-21 08:34 | XMS_ITS | Encounter Summary ---
Author Organization [employer] ([place], [place], [place], [place]) Address [address] [place] [address] Care Team Providers Care Senior Education Specialist Name Role Phone Unavailable Primary Care Provider Unavailabl e Encounter Details Date Type Department Care Team (Late st Contact Info) Description 05/30/2019 Transcribed Document [facility] [place] Family Medicine [facility] [place] [address] ProviderMelanie MD [facility] [place] [address] Social History Tobacco Use Types Packs/Day Years Used Date Smoking Tobacco: Never Assessed Sex and Gender Information Value Date Recorded Sex Assigned at Not on file Legal Sex Male 4:07 PM CDT Gender Identity Not on file Sexual Orientation Not on file documented as of this encounter Miscellaneous Notes * Cerner Conversion Note - Melanie ProviderMD - 05/30/2019 4:19 PM SLAG MIXER Patient: TERRI VARGAS Age: 59 Years Sex: [...] still not adequate - will start dilaudid MEAT SPECIALIST. 2. Coronary artery disease status post CABG [...] Oral, At Bedtime Dilaudid 6 mg/30 ml MEAT SPECIALIST 6 mg, 6 mg= 30 mL, IntraVENous [...] Lymph # 2.13 x10(3)/uL 05/30/2019 06:33 EST Cannon % 8.2 % 05/30/2019 06:33 EST Cannon # 0.86 K/uL 05/30/2019 06:33 EST Eos [...]
--- OUTSIDE RECORDS SUMMARY | 2025-01-21 08:34 | XMS_ITS | Encounter Summary ---
Author Organization [employer] ([place], [place], [place], [place]) Address [address] [place] [address] Care Team Providers Care Measurement Psychologist Name Role Phone Unavailable Primary Care Provider Unavailabl e Encounter Details Date Type Department Care Team (Late st Contact Info) Description 05/30/2019 Transcribed Document [facility] [place] [facility] [place] [address] ProviderMelanie MD [facility] [address] Social History Tobacco Use Types Packs/Day Years Used Date Smoking Tobacco: Never Assessed Sex and Gender Information Value Date Recorded Sex Assigned at Not on file Legal Sex Male 4:07 PM CDT Gender Identity Not on file Sexual Orientation Not on file documented as of this encounter Miscellaneous Notes * Cerner Conversion Note - Melanie ProviderMD - 05/30/2019 1:59 AM RANGE FEEDER Pain Assessment Entered On: 05/30/2019 5:08 EST [...]
--- OUTSIDE RECORDS SUMMARY | 2025-01-21 08:35 | XMS_ITS | Encounter Summary ---
Author Organization [employer] ([place], [place], [place], [place]) Address [address] [place] [address] Care Team Providers Care Compress Machine Operator Name Role Phone Unavailable Primary Care Provider Unavailabl e Encounter Details Date Type Department Care Team (Late st Contact Info) Description 06/01/2019 Transcribed Document [facility] [place] Medicine [facility] [place] [address] ProviderMelanie MD [place] [address] Social History Tobacco Use Types Packs/Day Years Used Date Smoking Tobacco: Never Assessed Sex and Gender Information Value Date Recorded Sex Assigned at Not on file Legal Sex Male 4:07 PM CDT Gender Identity Not on file Sexual Orientation Not on file documented as of this encounter Miscellaneous Notes * Cerner Conversion Note - Melanie Grider MD - 06/01/2019 5:17 PM DEVOPS [facility] [place], [place] [id number] TERRI MOREL :1960 Visit Time:05/28/2019 Your Visit Summary Your Care Team Admitting Physician - FRANCOIS WISE DO LESLIE, JEREMY CODY, MD-EMR PHY, UNKNOWN Attending Physician - FRANCOIS WISE DO LESLIE, JEREMY CODY, MD-EMR Primary Care Physician - SUKHJINDER SHRESTHA MD-INT Referring Physician - SOCORRO GOULD MD-EMR Your Diagnosis Abscess - complicated Abscess of epididymis or testis, Abscess of epididymis or testis Cellulitis, Cellulitis Scrotal abscess Uncontrolled pain What to do next Instructions From Your Care Team STOP the following medications: STOP Lorena (hydrocodone - acetaminophen) STOP Percocet 5/325 mg tablets ---- New prescription for Percocet 10 / 325 mg tablets provided. [facility] [phone] Medical Equipment for Home Use: [employer] for wound vac [phone] Discharge Follow Up Instructions: PCP 1 week, ID (Dr. Weiss) 1 week, Urology 2 weeks. Home wound VAC. Activity: Discharge Activity: Activity as tolerated Diet: Discharge Diet: Resume usual diet as tolerated Follow-Up Appointments Follow Up with SUKHJINDER SHRESTHA MD-INT When 06/13/2019 03:45 PM EST Comments Appointment has been made Where: [address] [place] [address]- x8 Follow Up with KATARZYNA RIZO MD-INF When 06/03/2019 09:30 AM EST Where: [address] [facility] [address] [place] [address]- Follow Up with JC LUQUE When Within 1 to 2 weeks Comments Call for follow up appointment Where: [address] [place] [address] [place] [address]- Business (1) Medications What How [...] to treat your wound at home. ??? [place] hospital stay. ??? Less pain. What are [...] 04/16/2009 Document Revised: 03/31/2017 Document Reviewed: 02/07/2016 [employer] Patient Education ?? 2019 [employer] Negative Pressure Wound Therapy Dressing Care [...] open and ready to use. ? Hand research program assistant. ? Wound cleanser or saltwater solution (saline) [...] and water are not available, use hand research program assistant. ??? Put on gloves. ??? Turn off [...] and water are not available, use hand research program assistant. Cleaning your wound ??? Follow your health care provider's instructions on how to clean your wound. This may include using a saline or recommended wound cleanser. ??? Do not use mvwd-phn-mllrpfb medicated or antiseptic creams, sprays, liquids, or [...] and water are not available, use hand research program assistant. Applying the dressing ??? Apply a skin [...] and water are not available, use hand research program assistant. ??? Attach the suction and turn the [...] 07/26/2012 Document Revised: 05/29/2016 Document Reviewed: 02/07/2016 [employer] Patient Education ?? 2019 [employer]. acetaminophen and oxycodone (a SEET a MIN [...] may report side effects to FDA at 6-631-KUT-5208. What other drugs will affect acetaminophen and [...] affect acetaminophen and oxycodone, including prescription and akyq-iko-vqrjedj medicines, vitamins, and herbal products. Not all [...] to ensure that the information provided by [employer] ('[employer]') is accurate, up-to-date, and complete, but no guarantee is made to that effect. Drug information contained herein may be time sensitive. [employer] information has been compiled for use by healthcare practitioners and consumers in the [place] and therefore [employer] does not warrant that uses outside of the [place] are appropriate, unless specifically indicated otherwise. [employer] drug information does not endorse drugs, diagnose patients or recommend therapy. [employer] drug information is an informational resource designed [...] effective or appropriate for any given patient. [employer] does not assume any responsibility for any aspect of healthcare administered with the aid of information [employer] provides. The information contained herein is not intended to cover all possible uses, directions, precautions, warnings, drug interactions, allergic reactions, or adverse effects. If you have questions about the drugs you are taking, check with your doctor, nurse or pharmacist. Copyright 0224-6159 [employer] Version: 18.02. Revision Date: 04/14/2018. lactobacillus acidophilus [...] may report side effects to FDA at 4-509-CSC-9492. What other drugs will affect lactobacillus acidophilus? Do not take lactobacillus acidophilus without medical advice if you are using any medications that can weaken your immune system, such as: ?? medicine to prevent organ transplant rejection; or ?? steroid medicine (prednisone, dexamethasone, methylprednisolone, and others). This list is not complete. Other drugs may interact with lactobacillus acidophilus, including prescription and jukc-jss-qwovmvb medicines, vitamins, and herbal products. Not all [...] to ensure that the information provided by [employer] ('[employer]') is accurate, up-to-date, and complete, but no guarantee is made to that effect. Drug information contained herein may be time sensitive. [employer] information has been compiled for use by healthcare practitioners and consumers in the [place] and therefore [employer] does not warrant that uses outside of the [place] are appropriate, unless specifically indicated otherwise. [employer]'s drug information does not endorse drugs, diagnose patients or recommend therapy. [employer] drug information is an informational resource designed [...] effective or appropriate for any given patient. [employer] does not assume any responsibility for any aspect of healthcare administered with the aid of information [employer] provides. The information contained herein is not intended to cover all possible uses, directions, precautions, warnings, drug interactions, allergic reactions, or adverse effects. If you have questions about the drugs you are taking, check with your doctor, nurse or pharmacist. Copyright 6472-4100 [employer] Version: 3.07. Revision Date: 10/24/2016. amoxicillin and [...] may report side effects to FDA at 7-026-MON-0784. What other drugs will affect amoxicillin and clavulanate potassium? Tell your doctor about all your current medicines and any you start or stop using, especially: ?? allopurinol; ?? probenecid; or ?? a blood thinner--warfarin, Coumadin, Jantoven. This list is not complete. Other drugs may interact with amoxicillin and clavulanate potassium, including prescription and hgsg-zxx-ptoqtik medicines, vitamins, and herbal products. Not all [...] to ensure that the information provided by [employer] ('[employer]') is accurate, up-to-date, and complete, but no guarantee is made to that effect. Drug information contained herein may be time sensitive. [employer] information has been compiled for use by healthcare practitioners and consumers in the [place] and therefore [employer] does not warrant that uses outside of the [place] are appropriate, unless specifically indicated otherwise. [employer] drug information does not endorse drugs, diagnose patients or recommend therapy. [employer] drug information is an informational resource designed [...] effective or appropriate for any given patient. [employer] does not assume any responsibility for any aspect of healthcare administered with the aid of information [employer] provides. The information contained herein is not intended to cover all possible uses, directions, precautions, warnings, drug interactions, allergic reactions, or adverse effects. If you have questions about the drugs you are taking, check with your doctor, nurse or pharmacist. Copyright 7689-3745 [employer]. Version: 03.19. Revision Date: 05/19/2017. doxycycline (oral/injection) (DOX i COLE house) Acticlate, Adoxa, Alodox, Avidoxy, Doryx, Mondoxyne [...] or life-threatening conditions such as anthrax or [place] spotted fever. The benefit of treating a [...] may report side effects to FDA at 0-122-UIF-9371. What other drugs will affect doxycycline? Sometimes it is not safe to use certain medications at the same time. Some drugs can affect your blood levels of other drugs you take, which may increase side effects or make the medications less effective. Other drugs may affect doxycycline, including prescription and siit-fcm-mgnzstb medicines, vitamins, and herbal products. Tell your [...] to ensure that the information provided by [employer] ('[employer]') is accurate, up-to-date, and complete, but no guarantee is made to that effect. Drug information contained herein may be time sensitive. [employer] information has been compiled for use by healthcare practitioners and consumers in the [place] and therefore [employer] does not warrant that uses outside of the [place] are appropriate, unless specifically indicated otherwise. [employer] drug information does not endorse drugs, diagnose patients or recommend therapy. [employer] drug information is an informational resource designed [...] effective or appropriate for any given patient. [employer] does not assume any responsibility for any aspect of healthcare administered with the aid of information [employer] provides. The information contained herein is not intended to cover all possible uses, directions, precautions, warnings, drug interactions, allergic reactions, or adverse effects. If you have questions about the drugs you are taking, check with your doctor, nurse or pharmacist. Copyright 5251-6598 [employer] Version: 21.02. Revision Date: 10/06/2018. Emergency Awareness [...] Assistance with quitting is available by contacting 1-777-HIYQ-NOW. This is a free resource providing counseling, [...] range between ( 0.0 and 7.0 ) Meeker #: 0.86 K/uL -- Normal range between ( 0.16 and 1.00 ) Eos #: 0.40 x10(3)/uL -- Normal range between ( 0.00 and 0.80 ) Meeker %: 8.2 % -- Normal range between [...] ) Urine Bilirubin Dipstick: Negative Urine Specific [place]: >1.030 -- Normal range between ( 1.005 [...]
--- OUTSIDE RECORDS SUMMARY | 2025-01-21 08:35 | XMS_ITS | Encounter Summary ---
Author Organization [employer] ([place], [place], [place], [place]) Address [address] [place] [address] Care Team Providers Care Data Management Associate Name Role Phone Unavailable Primary Care Provider Unavailabl e Encounter Details Date Type Department Care Team (Late st Contact Info) Description 06/28/2019 Transcribed Document [facility] [place] [facility] [place] [address] ProviderMelanie MD [facility] [place] [address] Social History Tobacco Use Types Packs/Day Years Used Date Smoking Tobacco: Never Assessed Sex and Gender Information Value Date Recorded Sex Assigned at Not on file Legal Sex Male 4:07 PM CDT Gender Identity Not on file Sexual Orientation Not on file documented as of this encounter Miscellaneous Notes * Cerner Conversion Note - Melanie ProviderMD - 06/28/2019 10:50 PM ELECTROMEDICAL EQUIPMENT TECHNICIAN ED Triage Entered On: 06/28/2019 23:04 EST [...] : 3 - Urgent Tracking Group : [facility] ED Montse Mooney RN-Flex Team - 06/28/2019 23:00 EST Mode of Arrival : Ambulatory Transported to ED by : Private vehicle To Room Via : Ambulate Accompanied By : Spouse ED Vital Signs : Document Height & Weight : Document ED Allergies : Document ED Reason for Visit : Document Tetanus Immunization : Less than 5 years Monste Mooney RN-Flex Team - 06/28/2019 23:00 EST [...] Estimated Onset Date: Unspecified ; Created By: Iliana_systemABELARDO; Reaction Status: Active ; Category: Drug ; Substance: No Known Allergies ; Type: Allergy ; Updated By: Iliana_ABELARDO rashid; Reviewed Date: 06/28/2019 23:01 EST Diagnosis Control ED (As Of: 06/28/2019 23:04:04 EST) Problems(Active) CAD (coronary artery disease) (SNOMED CT :91101436 ) Name of Problem: CAD (coronary artery disease) ; Recorder: Montse Mooney RN-Flex Team; Confirmation: Confirmed ; Classification: Medical ; Code: [id number] ; Contributor System: Relevant Media ; Last Updated: 06/28/2019 23:02 EST ; Life Cycle Date: 06/28/2019 ; Life Cycle Status: Active ; Vocabulary: SNOMED CT Diabetes mellitus (SNOMED CT :637958616 ) Name of Problem: Diabetes mellitus ; Recorder: Montse Mooney RN-Flex Team; Confirmation: Confirmed ; Classification: Medical ; Code: [id number] ; Contributor System: PowerChart ; Last Updated: 06/28/2019 23:02 EST ; Life Cycle Date: 06/28/2019 ; Life Cycle Status: Active ; Vocabulary: SNOMED CT History of obstructive sleep apnea (IMO :77182225 ) Name of Problem: History of obstructive sleep apnea ; Recorder: SYSTEM, SYSTEM; Confirmation: Confirmed ; Classification: Medical ; Code: [id number] ; Last Updated: 05/29/2019 0:07 EST ; Life Cycle Date: 05/29/2019 ; Life Cycle Status: Active ; Vocabulary: IMO HLD (hyperlipidemia) (SNOMED CT :19754332 ) Name of Problem: HLD (hyperlipidemia) ; Recorder: Montse Mooney RN-Flex Team; Confirmation: Confirmed ; Classification: Medical ; Code: 51779027 ; Contributor System: Relevant Media ; Last Updated: 06/28/2019 23:02 EST ; Life Cycle Date: 06/28/2019 ; Life Cycle Status: Active ; Vocabulary: SNOMED CT HTN (hypertension) (SNOMED CT :3255237320 ) Name of Problem: HTN (hypertension) ; Recorder: Montse Mooney RN-Flex Team; Confirmation: Confirmed ; Classification: Medical ; Code: [id number] ; Contributor System: PowerChart ; Last Updated: 06/28/2019 23:02 EST ; Life Cycle Date: 06/28/2019 ; Life Cycle Status: Active ; Vocabulary: SNOMED CT Diagnoses(Active) Testicular pain Date: 06/28/2019 ; Diagnosis Type: Reason For Visit ; Confirmation: Complaint of ; Clinical Dx: Testicular pain ; Classification: Medical ; Clinical Service: Non-Specified ; Code: PNED ; Probability: 0 ; Diagnosis Code: [id number] ED Height and Weight Height Source : Stated Height Entry Format : [place] Height, Feet : 5 ft(Converted to: 152 cm, 60 Inch) Height, Inches : 11 Inch(Converted to: 0 ft 11 Inch, 27.94 cm) Clinical Height : 180.34 cm Weight Source, ED : Standing scale Weight Entry Format : [place] Weight, Pounds : 230.6 lb Clinical Dosing Weight : 104.82 kg Body Surface Area (BSA) : 2.24 m2 Body Mass Index : 32.2 kg/m2 (HI) [place] Body Weight (IBW) : 74.31 kg Montse [...]
--- OUTSIDE RECORDS SUMMARY | 2025-01-21 08:35 | XMS_ITS | Encounter Summary ---
Author Organization [employer] ([place], [place], [place], [place]) Address [address] [place] [address] Care Team Providers Care Manager Planning Name Role Phone Unavailable Primary Care Provider Unavailabl e Encounter Details Date Type Department Care Team (Late st Contact Info) Description 06/16/2019 Transcribed Document [facility] [place] Family Medicine [facility] [place] [address] ProviderMelanie MD [facility] [place] [address] Social History Tobacco Use Types Packs/Day Years Used Date Smoking Tobacco: Never Assessed Sex and Gender Information Value Date Recorded Sex Assigned at Not on file Legal Sex Male 4:07 PM CDT Gender Identity Not on file Sexual Orientation Not on file documented as of this encounter Miscellaneous Notes * Cerner Conversion Note - Melanie Grider MD - 06/16/2019 10:36 AM SUPPLIER QUALITY ENGINEERING MANAGER DATE OF CONSULTATION: 06/16/2019 HISTORY: This is [...] has seen his urologist, Dr. Arguello, at [facility]. The plan now is to do a [...] surgical wound covers such as [employer] NPWT. /[id number] MD MELI Terry III/LESLEY / MELI / ANGELAL /[id number] documented in this encounter Plan of Treatment Not on file documented as of this encounter Visit Diagnoses Not on filedocumented in this encounter
--- OUTSIDE RECORDS SUMMARY | 2025-01-21 08:35 | XMS_ITS | Encounter Summary ---
Author Organization [employer] ([place], [place], [place], [place]) Address [address] [place] [address] Care Team Providers Care Division Superintendent Name Role Phone Unavailable Primary Care Provider Unavailabl e Encounter Details Date Type Department Care Team (Late st Contact Info) Description 06/01/2019 Transcribed Document [facility] [place] Family Medicine [facility] [place] [address] ProviderMelanie MD [address] [place] [phone] Social History Tobacco Use Types Packs/Day Years Used Date Smoking Tobacco: Never Assessed Sex and Gender Information Value Date Recorded Sex Assigned at Not on file Legal Sex Male 4:07 PM CDT Gender Identity Not on file Sexual Orientation Not on file documented as of this encounter Miscellaneous Notes * Cerner Conversion Note - Melanie Grider MD - 06/01/2019 4:08 PM TELECOMMUNICATIONS PROFESSIONAL Patient: TERRI MOREL Age: 59 years Sex: [...] the wound and he has been taking [place] Percocet and morphine at home with no [...] HR 70 (JUN 01 06:00) 70 (JUN 01 06:00) 90 (MAY 31:) Resp Rate 18 (JUN 01:00) 18 (MAY 31 18:00) 18 (MAY 31 18:) SBP H 152 (JUN 01 06:00) 132 (MAY 31:) H 152 (JUN 01 06:) DBP 74 (JUN 01:00) 73 (JUN 01 02:30) H 96 (MAY 31:) MAP 88 (JUN 01:00) 88 (JUN 01:00) 107 (MAY 31:) SpO2 97 (JUN 01 08:00) 96 (MAY 31 18:00) 99 (MAY 31 20:31) Exam: Gen: awake, [...]
--- OUTSIDE RECORDS SUMMARY | 2025-01-21 08:35 | XMS_ITS | Encounter Summary ---
Author Organization [employer] ([place], [place], [place], [place]) Address [address] [place] [address] Care Team Providers Care Ball Worker Name Role Phone Unavailable Primary Care Provider Unavailabl e Encounter Details Date Type Department Care Team (Late st Contact Info) Description 06/01/2019 Transcribed Document [facility] [place] Family Medicine On license of [facility] [place] [address] ProviderMelanie MD [address] [place] [address] Social History Tobacco Use Types Packs/Day Years Used Date Smoking Tobacco: Never Assessed Sex and Gender Information Value Date Recorded Sex Assigned at Not on file Legal Sex Male 4:07 PM CDT Gender Identity Not on file Sexual Orientation Not on file documented as of this encounter Miscellaneous Notes * Cerner Conversion Note - Melanie Grider MD - 06/01/2019 4:58 PM PULP AND PAPER TESTER Patient Education Materials Follows: Negative Pressure Wound [...] to treat your wound at home. ??? [facility] stay. ??? Less pain. What are [...] 04/16/2009 Document Revised: 03/31/2017 Document Reviewed: 02/07/2016 [employer] Interactive Patient Education ? 2019 [employer]. Negative Pressure Wound Therapy Dressing Care Negative [...] open and ready to use. ? Hand biological technician. ? Wound cleanser or saltwater solution (saline) [...] and water are not available, use hand biological technician. ??? Put on gloves. ??? Turn off [...] and water are not available, use hand biological technician. Cleaning your wound ??? Follow your health care provider's instructions on how to clean your wound. This may include using a saline or recommended wound cleanser. ??? Do not use cfmi-dit-mpecbfm medicated or antiseptic creams, sprays, liquids, or [...] and water are not available, use hand biological technician. Applying the dressing ??? Apply a skin [...] and water are not available, use hand biological technician. ??? Attach the suction and turn the [...] 07/26/2012 Document Revised: 05/29/2016 Document Reviewed: 02/07/2016 Elsevier Interactive Patient Education ? 2019 [employer] documented in this encounter Plan of Treatment Not on file documented as of this encounter Visit Diagnoses Not on filedocumented in this encounter
--- OUTSIDE RECORDS SUMMARY | 2025-01-21 08:35 | XMS_ITS | Encounter Summary ---
Author Organization [employer] ([place], [place], [place], [place]) Address [address] [place] [address] Care Team Providers Care Finisher Operator Name Role Phone Unavailable Primary Care Provider Unavailabl e Encounter Details Date Type Department Care Team (Late st Contact Info) Description 06/28/2019 Transcribed Document [facility] [place] [facility] [address] ProviderMelanie MD [facility] [address] Social History Tobacco Use Types Packs/Day Years Used Date Smoking Tobacco: Never Assessed Sex and Gender Information Value Date Recorded Sex Assigned at Not on file Legal Sex Male 4:07 PM CDT Gender Identity Not on file Sexual Orientation Not on file documented as of this encounter Miscellaneous Notes * Cerner Conversion Note - Melanie ProviderMD - 06/28/2019 10:50 PM GEAR MACHINE OPERATOR GENERAL ED Assessment Entered On: 06/28/2019 23:13 EST Performed On: 06/28/2019 23:09 EST by Layla Vick, HOME SERVICE DIRECTOR Quick Look Assessment Level of Consciousness : Alert, Awake Affect/Behavior : Appropriate, Cooperative Orientation : Oriented x 4 Skin Temperature : Warm Skin Description : Normal for ethnicity Layla Vick RN - 06/28/2019 23:09 EST ED General-Functional Assess Information Obtained From : Patient Preferred Communication Mode : Verbal Communication Barrier : None Primary Language : Barbadian Any Spiritual/Cultural Needs or Requests : No [...] EST) EENT Assessment EENT Assessment WDL : [place] Layla Vick, ANAT - 06/28/2019 23:09 EST Cardiovascular ASMT, ED Cardiovascular Assessment WDL : [place] Layla Vick, ANAT - 06/28/2019 23:09 EST Respiratory Respiratory Assessment WDL : [place] Layla Vick, ANAT - 06/28/2019 23:09 EST Gastrointestinal ED Gastrointestinal Assessment WDL : [place] Layla Vick, RN - 06/28/2019 23:09 EST Genitourinary Assessment, ED Genitourinary Assessment WDL : [facility] with exceptions (Comment: Pt c/o testicular pain, [...] EST Integumentary Assessment Integumentary Assessment WDL : [place] Layla Vick, ANAT - 06/28/2019 23:09 EST Neurologic ASMT, ED Neurologic Assessment WDL : [place] Layla Vick RN - 06/28/2019 23:09 EST Pain Assessment [...]
--- OUTSIDE RECORDS SUMMARY | 2025-01-21 08:35 | XMS_ITS | Encounter Summary ---
Author Organization [employer] ([place], [place], [place], [place]) Address [address] [place] [address] Care Team Providers Care Motorized Squad Sergeant Name Role Phone Unavailable Primary Care Provider Unavailabl e Encounter Details Date Type Department Care Team (Late st Contact Info) Description 06/29/2019 Transcribed Document [facility] [place] Family [place] [address] [place] [address] Social History Tobacco Use Types Packs/Day Years Used Date Smoking Tobacco: Never Assessed Sex and Gender Information Value Date Recorded Sex Assigned at Not on file Legal Sex Male 4:07 PM CDT Gender Identity Not on file Sexual Orientation Not on file documented as of this encounter Miscellaneous Notes * Cerner Conversion Note - Historical ProviderMD - 06/29/2019 12:06 AM SASH CLAMP OPERATOR ED Event Note Entered On: 06/29/2019 0:09 EST Performed On: 06/29/2019 0:06 EST by Layla Vick TRACTOR ENGINE MECHANIC Event Note ED Event Date/Time : 06/29/2019 [...] for a visit I will get a managing cognitive engineer I am not kidding. Pt educated on implications r/t AMA, pt proceeds to get dressed and exit ED. Layla Vick RN - 06/29/2019 0:06 EST documented in this encounter Plan of Treatment Not on file documented as of this encounter Visit Diagnoses Not on filedocumented in this encounter
--- OUTSIDE RECORDS SUMMARY | 2025-01-21 08:35 | XMS_ITS | Encounter Summary ---
Author Organization [employer] ([place], [place], [place], [place]) Address [address] [place] [address] Care Team Providers Care Adon Name Role Phone Unavailable Primary Care Provider Unavailabl e Encounter Details Date Type Department Care Team (Late st Contact Info) Description 06/28/[address] [facility] [place] Family Medicine [address] [place] [address] ProviderMelanie MD [facility] [place] [address] Social History Tobacco Use Types Packs/Day Years Used Date Smoking Tobacco: Never Assessed Sex and Gender Information Value Date Recorded Sex Assigned at Not on file Legal Sex Male 4:07 PM CDT Gender Identity Not on file Sexual Orientation Not on file documented as of this encounter Miscellaneous Notes * Cerner Conversion Note - Historical ProviderMD - 06/28/2019 11:30 AM ELECTRICIAN STATION ASSISTANT ED Event Note Entered On: 06/29/2019 0:07 EST Performed On: 06/28/2019 11:30 EST by KEN REBOLLEDO ED Event Note ED Event Date/Time : 06/28/2019 11:30 EST ED Description of Event : pt requesting pain medication, refused Ibuprofen. MD Jackson aware. KEN REBOLLEDO - 06/29/2019 0:06 EST Electronically signed by Angel [facility] Conversion Instructor Kindergarten Cerner at 09/05/2022 2:30 PM CDT documented in this encounter Plan of Treatment Not on file documented as of this encounter Visit Diagnoses Not on filedocumented in this encounter
--- OUTSIDE RECORDS SUMMARY | 2025-01-21 08:35 | XMS_ITS | Encounter Summary ---
Author Organization [employer] ([place], [place], [place], [place]) Address [address] [place] [address] Care Team Providers Care Office Nurse Practitioner Name Role Phone Unavailable Primary Care Provider Unavailabl e Encounter Details Date Type Department Care Team (Late st Contact Info) Description 06/05/2019 Transcribed Document [facility] [place] [facility] [place] [address] ProviderMelanie MD [facility] [place] [place] [address] Social History Tobacco Use Types Packs/Day Years Used Date Smoking Tobacco: Never Assessed Sex and Gender Information Value Date Recorded Sex Assigned at Not on file Legal Sex Male 4:07 PM CDT Gender Identity Not on file Sexual Orientation Not on file documented as of this encounter Miscellaneous Notes * Cerner Conversion Note - Melanie ProviderMD - 06/05/2019 1:08 PM DISPUTE RESOLUTION ANALYST Patient: TERRI MOREL Age: 59 Years Sex: [...] Patient reports he has been taking his [place] Percocet and morphine at home with no [...]
--- OUTSIDE RECORDS SUMMARY | 2025-01-21 08:35 | XMS_ITS | Encounter Summary ---
Author Organization [employer] ([place], [place], [place], [place]) Address [address] [place] [address] Care Team Providers Care Communications Media Professor Name Role Phone Unavailable Primary Care Provider Unavailabl e Encounter Details Date Type Department Care Team (Late st Contact Info) Description 05/31/2019 Transcribed Document [facility] [place] [address] ProviderMelanie MD [place] [address] Social History Tobacco Use Types Packs/Day Years Used Date Smoking Tobacco: Never Assessed Sex and Gender Information Value Date Recorded Sex Assigned at Not on file Legal Sex Male 4:07 PM CDT Gender Identity Not on file Sexual Orientation Not on file documented as of this encounter Miscellaneous Notes * Cerner Conversion Note - Melanie Grider MD - 05/31/2019 2:04 AM FINANCIAL ANALYST ACCOUNTANT Event Note Entered On: 05/31/2019 2:07 EST Performed On: 05/31/2019 2:04 EST by Kristofer Lau RN Event Note Event Date/Time : 05/30/2019 20:30 EST Event Location : Assigned room Event Details : Other: Description of Event : Patient complains of delay in administering pain medicine When patient's VEHICLE BODY SANDER dilaudid was about to finish, a request [...]
--- OUTSIDE RECORDS SUMMARY | 2025-01-21 08:35 | XMS_ITS | Encounter Summary ---
Author Organization [employer] ([place], [place], [place], [place]) Address [address] [place] [address] Care Team Providers Care Psychiatric Specialist Name Role Phone Unavailable Primary Care Provider Unavailabl e Encounter Details Date Type Department Care Team (Late st Contact Info) Description 06/28/2019 Transcribed Document [facility] [place] [address] [place] [address] ProviderMelanie MD [address] [place] [address] Social History Tobacco Use Types Packs/Day Years Used Date Smoking Tobacco: Never Assessed Sex and Gender Information Value Date Recorded Sex Assigned at Not on file Legal Sex Male 4:07 PM CDT Gender Identity Not on file Sexual Orientation Not on file documented as of this encounter Miscellaneous Notes * Cerner Conversion Note - Historical ProviderMD - 06/28/2019 10:50 PM CAKE STRIPPER [place] Suicide Severity Rating Scale (C-SSRS) Entered On: 06/28/2019 23:13 EST Performed On: 06/28/2019 23:09 EST by Layla Vick RN [place] Suicide Severity Rating Scale (C-SSRS) CSSRS Past Month Wish to be : No CSSRS Past Month Suicidal Thoughts : No CSSRS Lifetime Suicide Behavior : No Suicide Severity Rating Score : 0 Suicide Severity Rating : No Additional Care Required at this time Layla Vick RN - 06/28/2019 23:09 EST Electronically signed by Angel [facility] Conversion Operations Associate Cerner at 09/05/2022 2:21 PM CDT documented in this encounter Plan of Treatment Not on file documented as of this encounter Visit Diagnoses Not on filedocumented in this encounter
--- OUTSIDE RECORDS SUMMARY | 2025-01-21 08:35 | XMS_ITS | Encounter Summary ---
Author Organization [employer] ([place], [place], [place], [place]) Address [address] [place] [address] Care Team Providers Care Insulation Inspector Name Role Phone Unavailable Primary Care Provider Unavailabl e Encounter Details Date Type Department Care Team (Late st Contact Info) Description 06/01/[address] [facility] [place] Family Medicine [address] [place] [address] ProviderMelanie MD [facility] [place] [address] Social History Tobacco Use Types Packs/Day Years Used Date Smoking Tobacco: Never Assessed Sex and Gender Information Value Date Recorded Sex Assigned at Not on file Legal Sex Male 4:07 PM CDT Gender Identity Not on file Sexual Orientation Not on file documented as of this encounter Miscellaneous Notes * Cerner Conversion Note - Melanie ProviderMD - 06/01/2019 4:10 PM INTERVENTION MANAGER Final Discharge Planning Entered On: 06/01/2019 16:12 EST Performed On: 06/01/2019 16:10 EST by LYNDSEY GAY RN-Pouncing Machine Operator Final Discharge Planning Discharge Arrangements : Patient Post-Acute Information Patient Name: TERRI VARGAS Gender: Male : 62 Age: 59 Years Brittanie Referral(s): Service: Organization: Business Address: Phone Number: [facility] [address], [address], [place], [address] Patient Offered Choice/Affiliations Explained : [...] Services (Related/SOC within 3 days)-06 LYNDSEY GAY RN-Pouncing Machine Operator - 06/01/2019 16:10 EST Final Narrative Note Final Narrative Note : Discharged to home, agreeable. Updates with vac order sent to [facility]. Wound vac to be delivered to room at approximately 1730. No other needs verbalized at this time. LYNDSEY GAY RN-Pouncing Machine Operator - 06/01/2019 16:10 EST Electronically signed by Angel [facility] Conversion Senior Web Applications Developer Cerner at 09/05/2022 2:24 PM CDT documented in this encounter Plan of Treatment Not on file documented as of this encounter Visit Diagnoses Not on filedocumented in this encounter
--- OUTSIDE RECORDS SUMMARY | 2025-01-21 08:35 | XMS_ITS | Encounter Summary ---
Author Organization [employer] ([place], [place], [place], [place]) Address [address] [place] [address] Care Team Providers Care Clinical Trials Manager Name Role Phone Unavailable Primary Care Provider Unavailabl e Encounter Details Date Type Department Care Team (Late st Contact Info) Description 06/28/2019 Transcribed Document [facility] [place] Medicine [facility] [place] [address] ProviderMelanie MD [address] [place] [phone] Social History Tobacco Use Types Packs/Day Years Used Date Smoking Tobacco: Never Assessed Sex and Gender Information Value Date Recorded Sex Assigned at Not on file Legal Sex Male 4:07 PM CDT Gender Identity Not on file Sexual Orientation Not on file documented as of this encounter Miscellaneous Notes * Cerner Conversion Note - Melanie Grider MD - 06/28/2019 11:16 PM FAN MAIL CLERK Patient: TERRI MOREL Age: 59 years Sex: [...] % 33.5 % Lymph # 2.97 x10(3)/uL [place] % 7.4 % [place] # 0.66 K/uL Eos % 5.1 % [...] treatment plan, Patient indicated understanding of instructions. Electronically signed by Nicci Ortiz Conversion Supervisor Production Department Cerner at 09/05/2022 2:21 PM CDT documented in this encounter Plan of Treatment Not on file documented as of this encounter Visit Diagnoses Not on filedocumented in this encounter
--- OUTSIDE RECORDS SUMMARY | 2025-01-21 08:35 | XMS_ITS | Encounter Summary ---
Author Organization [employer] ([place], [place], [place], [place]) Address [address] [place] [id number] Care Team Providers Care Bilingual Social Worker Name Role Phone Unavailable Primary Care Provider Unavailabl e Encounter Details Date Type Department Care Team (Late st Contact Info) Description 06/01/2019 Transcribed Document [facility] [place] Family Medicine [address] [place] [address] ProviderMelanie MD [address] [place] [address] Social History Tobacco Use Types Packs/Day Years Used Date Smoking Tobacco: Never Assessed Sex and Gender Information Value Date Recorded Sex Assigned at Not on file Legal Sex Male 4:07 PM CDT Gender Identity Not on file Sexual Orientation Not on file documented as of this encounter Miscellaneous Notes * Cerner Conversion Note - Historical ProviderMD - 06/01/2019 4:50 PM DANCE ENTERTAINER Stroke/Warfarin Instructions Entered On: 06/01/2019 16:50 EST Performed On: 06/01/2019 16:50 EST by SERVNADO BARILLAS RN Stroke/Warfarin Instructions Stroke/TIA Discharge Ins : N/A Warfarin Discharge Ins : N/A SERVANDO BARILLAS RN - 06/01/2019 16:50 EST documented in this encounter Plan of Treatment Not on file documented as of this encounter Visit Diagnoses Not on filedocumented in this encounter
--- OUTSIDE RECORDS SUMMARY | 2025-01-21 08:35 | XMS_ITS | Encounter Summary ---
Author Organization [facility] ([place], [place], [place], [place]) Address [address] [place] [address] Care Team Providers Care Electronic Equipment Maint Tech Name Role Phone Unavailable Primary Care Provider Unavailabl e Encounter Details Date Type Department Care Team (Late st Contact Info) Description 06/10/2019 Transcribed Document [facility] [place] Family Medicine [facility] [place] [address] ProviderMelanie MD [facility] [place] [address] Social History Tobacco Use Types Packs/Day Years Used Date Smoking Tobacco: Never Assessed Sex and Gender Information Value Date Recorded Sex Assigned at Not on file Legal Sex Male 4:07 PM CDT Gender Identity Not on file Sexual Orientation Not on file documented as of this encounter Miscellaneous Notes * Cerner Conversion Note - Melanie Grider MD - 06/10/2019 2:25 PM OPERATIONS SYSTEMS SPECIALIST DATE OF ADMISSION: 06/09/2019 HISTORY: This is a 59-year-old male, resident of [place], [place], we are seeing on referral from [...] with orchitis. He was admitted here at [facility] earlier this month for a surgical cleanout and additional debridement. This time, he was treated with a negative pressure wound system, which is still in place. The testicle remains. He has been having difficulty at home with frequent signaling of the device. He has one of the [employer] products, and unfortunately, we have found this [...] by with just 2 changes per week. /[id number] MD MELI Terry III/LESLEY / MELI / JOVANY CC: MD Chuck Martinez MD Electronically signed by Angel, [facility] Conversion Art Psychotherapist Or Therapist Cerner at 09/05/2022 2:16 PM CDT documented in this encounter Plan of Treatment Not on file documented as of this encounter Visit Diagnoses Not on filedocumented in this encounter
--- OUTSIDE RECORDS SUMMARY | 2025-01-21 08:36 | XMS_ITS | Clinical Summary ---
Author Organization [employer] ([place], [place], [place], [place]) Address [address] [place] [address] Care Team Providers Care Special Services Director Name Role Phone Unavailable Primary Care [...]
--- OUTSIDE RECORDS SUMMARY | 2025-01-21 08:36 | XMS_ITS | Encounter Summary ---
Author Organization [employer] ([place], [place], [place], [place]) Address [address] [place] [address] Care Team Providers Care Senior Analyst Programmer Name Role Phone Unavailable Primary Care Provider Unavailabl e Encounter Details Date Type Department Care Team (Late st Contact Info) Description 06/29/2019 Transcribed Document [facility] [place] Family Medicine [address] [place] [address] ProviderMelanie MD [facility] [place] [address] Social History Tobacco Use Types Packs/Day Years Used Date Smoking Tobacco: Never Assessed Sex and Gender Information Value Date Recorded Sex Assigned at Not on file Legal Sex Male 4:07 PM CDT Gender Identity Not on file Sexual Orientation Not on file documented as of this encounter Miscellaneous Notes * Cerner Conversion Note - Historical ProviderMD - 06/29/2019 12:12 AM WATER ATTENDANT ED Discharge Entered On: 06/29/2019 0:12 EST Performed On: 06/29/2019 0:12 EST by Layla Vick, application performance engineer Process Patient Disposition : AMA/[place]/LWBS Personal Belongings [...] 06/29/2019 0:12 EST Electronically signed by Angel [facility] [place] Conversion Shipping Services Sales Representative Cerner at 09/05/2022 2:22 PM CDT documented in this encounter Plan of Treatment Not on file documented as of this encounter Visit Diagnoses Not on filedocumented in this encounter
--- OUTSIDE RECORDS SUMMARY | 2025-01-21 08:36 | XMS_ITS | Clinical Summary ---
Author Organization [facility] Address [address] [place] [address] Care Team Providers Care Mechanical Energy Engineer Name Role Phone Claudy Kim MD Primary Care Provider [phone] Allergies Active Allergy Reactions Criticality Noted Date Comments Dobutamine Other (See Comments) Low 11/08/2015 HTN Medications Cholecalciferol 2000 units tablet Take 2,000 Units by mouth Daily. Active cyclobenzaprine (FLEXERIL) 10 MG tablet Take 10 mg by mouth 2 (Two) Times a Day As Needed for Muscle Spasms. Active Melatonin 10 MG tablet Take 10 mg by mouth Every Night. Active Potassium 99 MG tablet Take 99 mg by mouth Daily. Active desipramine (NORPRAMIN) 25 MG tablet Take 1 tablet by mouth Every Night. 90 tablet 3 05/15/20 20 Active busPIRone (BUSPAR) 10 MG tabletIndications: Situational anxiety Take 1 tablet by mouth 2 (two) times a day. 60 tablet 5 05/23/19 21 Active traZODone (DESYREL) 50 MG tabletIndications: Insomnia, unspecified type TAKE 1 TABLET BY MOUTH ONCE DAILY AT NIGHT 90 tablet 3 06/21/19 21 Active Additional Information Patient taking differently: 50 mg Oral As Needed, Reported on 01/07/2021 clopidogrel (PLAVIX) 75 MG tabletIndications: Basilar artery stenosis/occlusion TAKE 1 TABLET BY MOUTH ONCE DAILY 30 tablet 5 11/21/19 21 Active oxyCODONE-acetamin ophen (Percocet) 5-325 MG per tablet Take 1 tablet by mouth Every 8 (Eight) Hours As Needed for Moderate Pain . 90 tablet 12/29/19 21 Active lisinopril-hydroch lorothiazide (Zestoretic) 10-12.5 MG per tablet Take 1 tablet by mouth Every Morning. 90 tablet 3 03/04/20 Active omeprazole (priLOSEC) 40 MG capsule Take 1 capsule by mouth Daily. 90 capsule 3 03/04/20 21 Active ondansetron ODT (Zofran ODT) [address] 1 tablet on the tongue Every 8 (Eight) Hours As Needed for Nausea or Vomiting. 15 tablet 1 03/14/20 21 Active doxycycline (VIBRAMYCIN) 100 MG capsuleIndications :Bronchitis Take 1 capsule by mouth 2 (Two) Times a Day. 20 capsule 03/22/20 21 Active empagliflozin (Jardiance) 25 MG tablet tabletIndications: Uncontrolled type 2 diabetes mellitus with hyperglycemia Take 1 tablet by mouth Daily. 30 tablet 11 03/25/20 21 Active glimepiride (AMARYL) 1 MG tabletIndications: Uncontrolled type 2 diabetes mellitus with hyperglycemia TAKE 1 TABLET BY MOUTH ONCE DAILY IN THE MORNING BEFORE BREAKFAST 90 tablet 04/09/20 21 Active rosuvastatin (CRESTOR) 20 MG tabletIndications: Other hyperlipidemia TAKE 1 TABLET BY MOUTH EVERY DAY AT BEDTIME. STOP LOVASTATIN AND GET LABS IN 6 TO 8 WEEKS. 90 tablet 05/27/19 22 Active Ozempic, 0.25 or 0.5 MG/DOSE, 2 MG/1.5ML solution pen-injectorIndica tions:Uncontrolled type 2 diabetes mellitus with hyperglycemia START WITH 0.25 MG UNDER THE SKIN FOR 2 WEEKS THEN GO TO THE 0.5 MG PER WEEK 1.5 mL 6 06/07/19 22 Active DULoxetine (CYMBALTA) 60 MG capsule Take 1 capsule by mouth once daily 90 capsule 09/06/19 22 Active ezetimibe (ZETIA) 10 MG tabletIndications: Mixed hyperlipidemia Take 1 tablet by mouth once daily 90 tablet 09/06/19 22 Active cloNIDine (CATAPRES) 0.1 MG tablet TAKE 1 TABLET BY MOUTH THREE TIMES DAILY NEEDED FOR HIGH BLOOD PRESSURE, SYSTOLIC BLOOD PRESSURE OVER 180 60 tablet 5 09/17/19 22 Active carvedilol (COREG) 25 MG tablet TAKE 1 TABLET BY MOUTH TWICE DAILY WITH MEALS 180 tablet 10/31/19 22 Active metFORMIN ER (GLUCOPHAGE-XR) 500 MG 24 hr tabletIndications: Uncontrolled type 2 diabetes mellitus with hyperglycemia Take 2 tablets by mouth 2 (Two) Times a Day. 360 tablet 3 01/03/20 22 Active NIFEdipine CC (ADALAT CC) 90 MG 24 hr tablet Take 1 tablet by mouth once daily 90 tablet 03/27/20 22 Active furosemide (LASIX) 40 MG tablet 02/24/20 23 Active amLODIPine (NORVASC) 10 MG tablet 12/16/19 23 Active gabapentin (NEURONTIN) 600 MG tablet 02/27/20 23 Active SITagliptin (JANUVIA) 100 MG tablet 1 tablet. 02/18/20 23 Active Incruse Ellipta 62.5 MCG/ACT aerosol powder 02/27/20 Active aspirin 325 MG tablet Take 1 tablet by mouth Daily. Active Active Problems Problem Noted Date Diagnosed Date Cerebral aneurysm, nonruptured 03/20/2023 Bronchitis 03/22/2021 Situational anxiety 05/23/2020 Colon cancer screening 05/21/2020 Overview (05/21/2020): Added automatically from request for surgery [id number] Headache, unspecified headache type 05/19/2020 Chronic epididymitis 10/04/2019 Tobacco dependence 09/27/2019 Palpitations 09/27/2019 Paroxysmal atrial fibrillation 12/06/2018 Overview (12/06/2018): Post op 12/03 CVA (cerebral vascular accident) 12/06/2018 Overview (12/06/2018): 12/03 post op CABG Allergic rhinitis 02/07/2016 Tobacco abuse 02/07/2016 Abdominal wall hernia 02/07/2016 Coronary artery disease invo lving yurok coronary artery of yurok heart without angina pectoris 10/30/2015 Overview (12/06/2018): Description: s/p stenting times 3 and CABG 12/03 at [facility] Chronic mycotic otitis externa 10/30/2015 Uncontrolled type 2 diabetes mellitus 10/30/2015 Gastritis 10/30/2015 Overview (10/30/2015): Description: non erosive by EGD 01/30 Genital warts 10/30/2015 Gastroesophageal reflux disease without esophagi tis 10/30/2015 Hyperlipidemia 10/30/2015 Inguinal pain 10/30/2015 Hypertension 10/30/2015 Insomnia 10/30/2015 Diverticulosis of sigmoid colon 10/30/2015 Tubular adenoma 10/30/2015 Overview (10/30/2015): Description: 01/30 ANNA (obstructive sleep apnea) Resolved Problems Problem Noted Date Diagnosed Date Resolved Date Hypertensive urgency 05/18/2020 021 Headache 05/18/2020 05/19/2020 Headache, unspecified headache type 05/18/2020 05/19/2020 Acute nasopharyngitis 07/29/20182018 Community acquired pneumonia of left lower lobe of lung 04/30/2018 07/29/2018 Acute frontal sinusitis 02/15/201608/17 Blood glucose abnormal 10/30/201509/09 Immunizations Immunization Administration Dates Next Due FluMist 2-49yrs 06/22/2016 Influenza, Unspecified 05/30/2019 Pneumococcal Polysaccharide (PPSV23) 06/22/2016 Family History Medical History Relation Name Comments Heart disease Father Diabetes Mother Hypertension Mother Stroke Other Unknown Relation Name Status Comments Father Mother Other Unknown Social History Tobacco Use Types Packs/Day Years Used Date Smoking Tobacco: Every Day Cigarettes 1 40 Smokeless Tobacco: Never Tobacco Cessation:Ready to Q uit: No; Counseling Given: Yes Comments:AT MOST 2PPD Alcohol Use Standard Drinks/Week Comments Not Currently 0 (1 standard drink = 0.6 oz pur e alcohol) PHQ-2 Answer Date Recorded PHQ-2 Score 0 07/15/2019 Abuse Screen Answer Date Recorded Unsafe at Home or Work/School Not on file Feels Threatened by Someone? Not on file 02/2023 Does Anyone Keep You from Co ntacting Others or Doint Things Outside the Home? Not on file 02/24/2023 Physical Sign of Abuse Present Not on file 1 Housing Stability Answer Date Recorded Current Living Arrangements Not on file 02/15 Potentially Unsafe Housing Conditions Not on kay e 02/24/2023 Family and Community Support Answer Campbell e Recorded Help with Day-to-Day Activities Not on file 02/24/2023 Lonely or Isolated Not on file 02/24/2023 Employment Answer Date Recorded Do you want help finding or keeping work or a mk b? Not on file 02/24/2023 Disabilities Answer Date Recorded Concentrating, Remembering, or Making Decisions Difficulty Not on file 02/24/2023 Doing Errands Independently Difficulty Not on fi le 02/24/2023 Education Answer Date Recorded Help with school or training? Not on file Preferred Language Not on file 02/24/2023 Sex and Gender Information Value Date Recorded Sex Assigned at Not on file Legal Sex Male 1:46 PM EDT Gender Identity Not on file Sexual Orientation Not on file Last Filed Vital Signs Vital Sign Reading Time Taken Comments Blood Pressure 132/80 03/22/2021 9:15 AM EDT Pulse 97 03/22/2021 8:49 AM EDT Temperature 36.2 C (97.2 F) 03/20/2023 11:57 AM EDT Respiratory Rate 16 05/30/2020 2:52 PM EST Oxygen Saturation 96% 03/22/2021 8:49 AM EDT Inhaled Oxygen Concentration - - Weight 109 kg (241 lb) 03/20/2023 11:57 AM EDT Height 177.8 cm (5' 10 ) 03/20/2023 11:57 AM EDT Body Mass Index 34.58 03/20/2023 11:57 AM EDT Plan of Treatment Health Maintenance Due Date Last Done Comments DIABETIC FOOT EXAM 1971 URINE MICROALBUMIN-CREATININ E RATIO (uACR) 1971 COLOGUARD 2006 COLON CANCER SCREENING 5 YEA R SIGMOIDOSCOPY 2006 CT COLONOGRAPHY 2006 FECAL OCCULT BLOOD TEST 2006 FIT Testing (1 year) 2006 ZOSTER VACCINE (1 of 2) 2011 ANNUAL WELLNESS VISIT 11/08/2015 HEPATITIS C SCREENING 11/08/2015 Pneumococcal Vaccine 50+ (2 of 2 - PCV) 06/22/2017 06/22/2016, 03/18/2011 DIABETIC EYE EXAM 10/04/2020 10/05/2019, (Patient-Reported (Performed Externally)) HEMOGLOBIN A1C 04/02/2022 09/30/2021, 110 09/2020, 11/20/2020, Additional history exists LIPID PANEL 09/30/2022 09/30/2021, 110 09/2020, 04/17/2020, Additional history exists TDAP/TD VACCINES (2 - Td or Tdap) 05/05/2023 013 COLONOSCOPY 05/30/2023 05/30/2020, 05/18, 01/26/2015 COLORECTAL CANCER SCREENING 05/30/2023 COVID-19 Vaccine (2023-2 5 season) 2025 INFLUENZA VACCINE 02/15/2025 06/01/2019, , 05/30/2019, Additional history exists LUNG CANCER SCREENING Discontinued 06/22/2016 Procedures Procedure Name Priority Date/Time Associated Diagnosis Comments HEMOGLOBIN A1C Routine 03/22/2021 9:25 AM EDT Uncontrolled type 2 diabetes mellitus with hyperglycemia LIPID PANEL Routine 03/22/2021 9:25 AM EDT Other hyperlipidemia SCANNED - COLONOSCOPY 05/30/2020 from Last 3 Months or Most Recently Relevant to Health Maintenance Results * (ABNORMAL) Hemoglobin A1c (03/22/2021 9:25 AM EDT) Hemoglobin A1C 9.80(H) 4.80 - 5.60 % 03/22/2021 7:15 PM EDT [facility] Blood Venipuncture / Unknown 03/22/2021 9:25 AM EDT 03/22/2021 9:25 AM EDT Narrative [facility] - 03/22/2021 7:15 PM EDT Hemoglobin A1C Ranges: Increased Risk for Diabetes 5.7% to 6.4% Diabetes >= 6.5% Diabetic Goal < 7.0% us Darnell Elizabeth MD LAB BLOOD ORDERABLES Final R esult [facility]
[address] [place] [address], * (ABNORMAL) Lipid Panel (03/22/2021 9:25 AM EDT) Total Cholesterol 102 0 - 200 mg/dL 03/22/2021 7:50 PM EDT [facility] Triglycerides 120 0 - 150 mg/dL 03/22/2021 7:50 PM EDT [facility] HDL Cholesterol 29(L) 40 - 60 mg/dL 03/22/2021 7:50 PM EDT [facility] LDL Cholesterol 51 0 - 100 mg/dL 03/22/2021 7:50 PM EDT [facility] VLDL Cholesterol 22 5 - 40 mg/dL 03/22/2021 7:50 PM EDT [facility] LDL/HDL Ratio 1.69 03/22/2021 7:50 PM EDT [facility] Blood Venipuncture / Unknown 03/22/2021 9:25 AM EDT 03/22/2021 9:25 AM EDT [facility] - 03/22/2021 7:50 PM EDT Cholesterol Reference Ranges (U.S. Department of Health and Human Services ATP III Classifications) Desirable <200 mg/dL Borderline High 200-239 mg/dL High Risk >240 mg/dL Triglyceride Reference Ranges (U.S. Department of Health and Human Services ATP III Classifications) Normal <150 mg/dL Borderline High 150-199 mg/dL High 200-499 mg/dL Very High >500 mg/dL HDL Reference Ranges (U.S. Department of Health and Human Services ATP III Classifcations) Low <40 mg/dl (major risk factor for CHD) High >60 mg/dl ('negative' risk factor for CHD) LDL Reference Ranges (U.S. Department of Health and Human Services ATP III Classifcations) Optimal <100 mg/dL Near Optimal 100-129 mg/dL Borderline High 130-159 mg/dL High 160-189 mg/dL Very High >189 mg/dL us Darnell Elizabeth MD LAB BLOOD ORDERABLES Final R esult [facility]
[address] [place] [address], * SCANNED - COLONOSCOPY (05/30/2020) Donnell Howard MD CHART REVIEW TABS Bere stafford Result from Last 3 Months or Most Recently Relevant to Health Maintenance Insurance MEDICARE A & B Advance Directives * CPR (Attempt to Resuscitate) (Latest Code Status on File) Date Activated Date Inactivated Comments 05/18/2020 9:52 AM 05/19/2020 3:18 PM Question Answer Comments Code Status (Patient has no pulse and is not breathing): CPR (Attempt to Resuscitate) Medical Interventions (Patie nt has pulse or is breathing): Full Care Teams Mechanical Energy Engineer Relationship Specialty Start Date End Date Claudy Kim MD [facility] [address] [address] PCP - General Family Medicine 11/23/24
--- OUTSIDE RECORDS SUMMARY | 2025-01-21 08:36 | XMS_ITS | Encounter Summary ---
Author Organization [employer] ([place], [place], [place], [place]) Address [address] [place] [address] Care Team Providers Care Respiratory Care Practitioner Name Role Phone Unavailable Primary Care Provider Unavailabl e Encounter Details Date Type Department Care Team (Late st Contact Info) Description 09/27/2019 Transcribed Document [facility] [place] Family Medicine [facility] [place] [address] ProviderMelanie MD [facility] [place] [address] Social History Tobacco Use Types Packs/Day Years Used Date Smoking Tobacco: Never Assessed Sex and Gender Information Value Date Recorded Sex Assigned at Not on file Legal Sex Male 4:07 PM CDT Gender Identity Not on file Sexual Orientation Not on file documented as of this encounter Miscellaneous Notes * [employer]ner Conversion Note - Melanie Grider MD - 09/27/2019 3:56 PM CDT DATE OF [...] 8. Melatonin. 9. Tradjenta. 10. Glimepiride. 11. [place]. 12. Omeprazole. 13. Buprenorphine. 14. Januvia. 15. [...] up in 1 year and as needed. [id number] time today was 15 minutes with more than half of this in counseling regarding smoking and his use of CPAP. /[id number] MD JANES Jeffrey/AQ / JS / MODL /[id number] CC: José Elizabeth MD documented in this encounter Plan of Treatment Not on file documented as of this encounter Visit Diagnoses Not on filedocumented in this encounter
--- NOTE | 2025-01-21 08:40 | HMH.EDGENADL ---
Discharge Plan Disposition Patient Disposition: Home, Self-Care Condition: Good Prescriptions Prescriptions: No Action metformin 500 mg tablet extended release 24 hr 500 mg PO BID carvedilol 12.5 mg tablet 12.5 mg PO BID Qty: 180 3RF Entresto 97-103 mg tablet See Rx Instructions .ROUTE .COMPLEX Qty: 180 3RF Dose Instruction: TAKE ONE TABLET BY MOUTH TWICE DAILY Rx Instructions: TAKE ONE TABLET BY MOUTH TWICE DAILY spironolactone 50 mg tablet See Rx Instructions .ROUTE .COMPLEX Qty: 90 5RF Dose Instruction: TAKE ONE TABLET BY MOUTH EVERY DAY Rx Instructions: TAKE ONE TABLET BY MOUTH EVERY DAY Ozempic 0.25 mg or 0.5 mg (2 mg/3 mL) pen injector 0.5 mg SQ WEEKLY Qty: 3 0RF (DME) Dexcom G7 Sensor Device See Rx Instructions .Route Qty: 3 12RF Rx Instructions: As directed, change q 10 days (DME) Dexcom G7 General Engineer Misc See Rx Instructions .Route Qty: 1 0RF Rx Instructions: As directed insulin glargine 100 unit/mL (3 mL) insulin pen 30 unit SQ ONCE oxycodone-acetaminophen 10-325 mg tablet 1 tab PO QID (DME) OneTouch Ultra Test Strip See Rx Instructions .Route Qty: 50 8RF Rx Instructions: test sugar qid insulin regular human 100 unit/mL (3 mL) insulin pen 1 sliding scale dose SQ USEASDIRECTD Qty: 15 2RF Rx Instructions: give 10 U subq for before meal up q 4-6 hours if fingerstick glucose reading is above 300 rivaroxaban [Xarelto] 2.5 mg tablet 2.5 mg PO BID Qty: 60 2RF (DME) OneTouch Ultra Test Strip See Rx Instructions .Route Qty: 50 2RF Rx Instructions: daily testing omeprazole 40 mg capsule,delayed release(DR/EC) See Rx Instructions .ROUTE .COMPLEX Qty: 180 1RF Dose Instruction: TAKE 1 CAPSULE BY MOUTH TWICE DAILY - SWALLOW WHOLE; DO NOT CRUSH, CHEW, DISSOLVE, CUT, BREAK Rx Instructions: TAKE 1 CAPSULE BY MOUTH TWICE DAILY - SWALLOW WHOLE; DO NOT CRUSH, CHEW, DISSOLVE, CUT, BREAK duloxetine 60 mg capsule,delayed release(DR/EC) See Rx Instructions .ROUTE .COMPLEX Qty: 90 1RF Dose Instruction: TAKE 1 CAPSULE BY MOUTH ONCE DAILY Rx Instructions: TAKE 1 CAPSULE BY MOUTH ONCE DAILY Jardiance 25 mg tablet See Rx Instructions .ROUTE .COMPLEX Qty: 90 3RF Dose Instruction: TAKE 1 TABLET BY MOUTH ONCE DAILY Rx Instructions: TAKE 1 TABLET BY MOUTH ONCE DAILY (DME) pen needle, diabetic [Comfort Touch Pen Needle] 31 gauge x 5/32 needle See Rx Instructions .Route Qty: 100 6RF Rx Instructions: As directed, ONCE DAILY glimepiride 4 mg tablet See Rx Instructions .ROUTE .COMPLEX Qty: 90 0RF Dose Instruction: TAKE 1 TABLET BY MOUTH ONCE DAILY Rx Instructions: TAKE 1 TABLET BY MOUTH ONCE DAILY clopidogrel 75 mg tablet See Rx Instructions .ROUTE .COMPLEX Qty: 90 3RF Dose Instruction: TAKE 1 TABLET BY MOUTH ONCE DAILY Rx Instructions: TAKE 1 TABLET BY MOUTH ONCE DAILY atorvastatin 40 mg tablet See Rx Instructions .ROUTE .COMPLEX Qty: 90 3RF Dose Instruction: TAKE 1 TABLET BY MOUTH ONCE DAILY Rx Instructions: TAKE 1 TABLET BY MOUTH ONCE DAILY Ozempic 0.25 mg or 0.5 mg (2 mg/3 mL) pen injector 0.25 mg SQ WEEKLY Qty: 3 0RF Rx Instructions: for 4 weeks bumetanide 2 mg tablet See Rx Instructions .ROUTE .COMPLEX Qty: 180 3RF Dose Instruction: TAKE 1 TABLET BY MOUTH TWICE A DAY Rx Instructions: TAKE 1 TABLET BY MOUTH TWICE A DAY varenicline tartrate 1 mg tablet See Rx Instructions .ROUTE .COMPLEX Qty: 56 2RF Dose Instruction: TAKE 1 TABLET BY MOUTH TWICE DAILY Rx Instructions: TAKE 1 TABLET BY MOUTH TWICE DAILY metformin [Glucophage XR] 500 mg tablet extended release 24 hr 500 mg PO BID Qty: 180 3RF magnesium 500 mg Tablet 500 mg PO DAILY aspirin 325 mg Tablet 325 mg PO DAILY potassium 99 mg Tablet 99 mg PO BID nitroglycerin 0.4 mg Tablet, Sublingual See Rx Instructions .ROUTE .COMPLEX Rx Instructions: 0.4 mg sublingually gabapentin 600 mg tablet 600 mg PO QID methocarbamol 750 mg tablet 750 mg PO Q6H PRN (Reason: muscle spasm) Qty: 20 0RF Referrals Follow up/Referrals: Claudy Kim MD [Primary Care Provider, Family Practice] - See instructions Activity Restrictions/Add. Instructions Additional Instructions/Restrictions: You can continue taking the over the counter medications that you have been taking. This is a viral illness. The COVID and Flu swab will result in 1-2 hours. You can look on the online portal OR call the ER for the result. If you develop any new or worsening symptoms please return. Clinical Impressions Clinical Impression: Acute viral syndrome Print Language Print Language: [place] Discharge ED Provider: Milton Estrella General Adult HPI General Chief complaint: Upper Respiratory Infection Stated complaint: flu like symtoms Time Seen by Provider: 01/21/25 08:34 Mode of Arrival: Ambulatory Source of Information: Patient Description of Symptoms (Recalled from ER Triage Doc. by RN): pt is here for flu like s/s that started yesterday and hit him like a brick wall this moring including sore throat, runny nose, fatigue body aches and diarrhea History of Present Illness HPI narrative: This is a 64-year-old male patient, with past medical history of heart failure with reduced ejection fraction, hypertension, hyperlipidemia, diabetes, and prior TIAs, who is presenting to the emergency department today for evaluation of upper respiratory symptoms. Patient states that for the last couple days he has had rhinorrhea and congestion with a mild sore throat. He states that he has had a couple of loose stools but not overt intractable diarrhea. He has had some nausea but no vomiting. He states that he has been taking [id number] Coricidin as well as cold/flu medications. He has not had any chest pain or shortness of breath. No abdominal pain. No fevers. He states that the only reason he presented to the emergency department today is because his wanted to ensure that he was not infected with COVID. Related Data Home Medications ?Medication ?Instructions ?Recorded ?Confirmed gabapentin 600 mg tablet 600 mg PO QID 09/03/23 01/05/25 aspirin 325 mg tablet 325 mg PO DAILY 02/17/24 01/05/25 magnesium 500 mg tablet 500 mg PO DAILY 02/17/24 01/05/25 nitroglycerin 0.4 mg sublingual See Rx Instructions .Route .COMPLEX 02/17/24 01/05/25 tablet potassium 99 mg tablet 99 mg PO BID 02/17/24 01/05/25 oxycodone-acetaminophen 10 mg-325 1 tab PO QID 02/24/24 01/05/25 mg tablet metformin 500 mg tablet,extended 500 mg PO BID 07/13/24 01/05/25 release 24 hr Held on 11/14/24. Instructions: Resume on 11/16/24. insulin glargine 100 unit/mL (3 30 unit SQ ONCE 01/06/25 mL) subcutaneous pen Previous Rx's ?Medication ?Instructions ?Recorded blood sugar diagnostic (OneTouch #50 ea 11/10/23 Ultra Test strips) carvedilol 12.5 mg tablet 12.5 mg PO BID #180 tabs 07/13/24 sacubitril 97 mg-valsartan 103 mg See Rx Instructions .Route 07/13/24 tablet (Entresto) .COMPLEX #180 tabs spironolactone 50 mg tablet See Rx Instructions .Route 07/13/24 .COMPLEX #90 tabs duloxetine 60 mg capsule,delayed See Rx Instructions .Route 08/22/24 release .COMPLEX #90 caps omeprazole 40 mg capsule,delayed See Rx Instructions .Route 08/22/24 release .COMPLEX #180 caps empagliflozin 25 mg tablet See Rx Instructions .Route 08/30/24 (Jardiance) .COMPLEX #90 tabs pen needle, diabetic 31 gauge x #100 ea 09/02/24 (Comfort Touch Pen Needle) glimepiride 4 mg tablet See Rx Instructions .Route 09/19/24 .COMPLEX #90 tabs blood sugar diagnostic (OneTouch #50 ea 10/07/24 Ultra Test strips) insulin regular human 100 unit/mL 1 sliding scale dose SQ 10/07/24 (3 mL) subcutaneous pen USEASDIRECTD #15 mL methocarbamol 750 mg tablet 750 mg PO Q6H PRN muscle spasm #20 10/31/24 tabs atorvastatin 40 mg tablet See Rx Instructions .Route 11/21/24 .COMPLEX #90 ea clopidogrel 75 mg tablet See Rx Instructions .Route 11/21/24 .COMPLEX #90 tabs rivaroxaban 2.5 mg tablet (Xarelto) 2.5 mg PO BID #60 tabs 11/21/24 semaglutide 0.25 mg or 0.5 mg (2 0.25 mg (0.368 mL) SQ WEEKLY #3 mL 12/21/24 mg/3 mL) subcutaneous pen injector ([employer]) blood-glucose sensor (Dexcom G7 #3 ea 01/05/25 Sensor device) blood-glucose,tandem operator,cont #1 ea 01/05/25 (Dexcom G7 General Engineer) semaglutide 0.25 mg or 0.5 mg (2 0.5 mg (0.736 mL) SQ WEEKLY #3 mL 01/05/25 mg/3 mL) subcutaneous pen injector (Ozempic) bumetanide 2 mg tablet See Rx Instructions .Route 01/18/25 .COMPLEX #180 tabs metformin 500 mg tablet,extended 500 mg PO BID #180 tabs 01/18/25 release 24 hr (Glucophage XR) varenicline tartrate 1 mg tablet See Rx Instructions .Route 01/18/25 .COMPLEX #56 ea Allergies Allergy/AdvReac Type Severity Reaction Status Date / Time dobutamine AdvReac Unknown Hypertensio Verified 01/05/25 09:41 [facility] Disclaimer: The information contained in this section may have been updated after the patient was seen, as this information can be updated by other users. Medical History Ear drainage right Generalized headaches Ear pain, right Pneumonia Cardiogenic shock On mechanically assisted ventilation Acute respiratory failure with hypoxia Abdominal pain Constipation Deviated nasal septum Hypertrophy of inferior nasal turbinate Sinusitis Mixed restrictive and obstructive lung disease Cardiac pacemaker in situ Pulmonary emphysema Smoking greater than 30 pack years Dyspnea on exertion Lung mass Nodule of right lung Right maxillary sinusitis HFrEF (heart failure with reduced ejection fraction) Impacted cerumen of right ear Dizziness Abnormal electrocardiogram [ECG] [EKG] ANNA (obstructive sleep apnea) Hyperlipidemia Depression Anxiety Gastroesophageal reflux disease Insomnia Coronary artery disease History of TIA (transient ischemic attack) Hypertension Diabetes mellitus Epididymitis Palpitations Opiate withdrawal TIA (transient ischemic attack) Surgical History History of removal of testicle History of hernia surgery History of cholecystectomy History of right mastoidectomy History of coronary artery bypass graft Family History Other Diabetes Social History Smoking Status: Current every day smoker tobacco type: cigarettes packs per day: 1 quit status: considering quitting alcohol intake: never substance use type: denies use current occupational status: disabled Travel in the last 8 weeks?: None household members: spouse and children housing: house Have you lived/traveled outside US in past 30 days?: No Contact w/someone who lives/traveled outside US past 30 days?: No Exposure to someone with infectious disease in past 14 days?: No Do you have a fever (greater than 100.4 F or 38 C)?: No Have you tested positive for COVID-19?: No Exposed to someone with COVID-19 in past 14 days?: No Do you have a sore throat?: No Do you have a cough?: No Do you have any weakness?: No Do you have any diarrhea?: No Are you experiencing any unusual bleeding?: No Do you have any muscle aches/pain?: No Do you have any abdominal pain?: No Are you experiencing loss of taste or smell?: No Other Medical History Have you received the Flu Vaccine for this season: No Have you received the Pneumonia Vaccine: Yes ROS Obtained: Yes Systems reviewed as appropriate & no additional complaints except as documented Physical Exam General General appearance: other (See MDM) Respiratory Respiratory exam: Present other (See MDM) Cardiovascular Cardiovascular exam: Present other (See MDM) Neurological Exam Neurological exam: Present other (See MDM) Medical Decision Making Medical Records Medical records reviewed: Yes I reviewed the patient's medical records. Screening: Per USPSTF and CDC recommendations, given the prevalence of disease in our region, it is our hospital?s policy to screen for HIV and viral Hepatitis for all patients aged 18 and over and those with ongoing risk factors. George Inquiry Pt receiving controlled substance: No George was queried for this patient: No Vital Signs: 01/21/25 08:15 01/21/25 08:20 Temperature 97.7 F Temperature Source Oral Pulse Rate [Left Radial] 90 Respiratory Rate 24 Blood Pressure [Right Arm] 164/105 H Blood Pressure Mean [Right Arm] 124 02 Sat by Pulse Oximetry 99 99 Oxygen Delivery Method Room Air Room Air Orders (Tests/Meds): ORDERS Category Date Time Status Rapid PCR Covid and Flu A/B Stat Lab 01/21/25 08:12 Received Medical Decision Narrative: In summary, this is a 64-year-old male patient who is presenting to the emergency department today with upper respiratory symptoms including rhinorrhea and congestion with a couple of loose stools send overall feeling of malaise for the last couple of days. The patient has significant comorbidities including hyperlipidemia, hypertension, history of TIAs, history of diabetes, and heart failure with reduced ejection fraction. On initial evaluation of the patient they were resting comfortably in no acute distress and nontoxic in appearance. They are hemodynamically stable, saturating well room air, and are neurologically intact. On physical examination the patient is appropriately alert and interactive with a GCS of 15. He has pharyngeal erythema with no palatal petechiae and no exudates on his tonsils. His heart and lungs are clear to auscultation bilaterally. He has no abdominal tenderness to palpation. Differential diagnosis includes COVID, flu, RSV, among others. The patient does not have any findings of uvular deviation or asymmetric tonsillar bulging to suggest retropharyngeal abscess or peritonsillar abscess. Low concern for streptococcal pharyngitis. We have performed COVID and flu swabs on the patient. Prior to these test resulted patient states that he would like to be discharged home and follow-up these test online versus calling us for the result later today. I do feel that this is reasonable as his presentation is highly consistent with a viral syndrome. At this time all questions were answered and all parties were agreeable with the decision to discharge home. Critical Care Critical Care Time Critical Care Time: No
[2025-01-21 08:46] VITALS: BP 140/80; PULSE 90; RESP 20; TEMP 36.7; O2SAT 100
== END 2025-01-21 08:47 | disposition home or self-care (01) ==
PROVIDERS: Emergency Provider Student in an Organized Health Care Education/Training Program; PCP Family Medicine
DX: B34.9 Viral infection, unspecified (principal)
CPT/HCPCS: 87636; 99283

== ENCOUNTER 2025-02-08 17:07 | Emergency (ER) | payer MEDICARE, SELFPAY ==
--- OUTSIDE RECORDS SUMMARY | 2007-03-04 05:58 | XMS_ITS | Continuity of Care Document ---
Author Organization [facility] Address [address] [place] [phone] Phone Care Team Providers Care Jewel Bearing Maker Name Role Phone Sourav Tripp MD Unavailable [...] on Encounter Offic Cons New/estab Mod 40 [facility], [address] [place] [address], [id number], tel:[phone] [facility] ([place]) No Information Qasim Benjamin. [address] [place] [address], [id number], [place]. tel:[phone] Referring Provider: Hakan Pablo, [address] [place] [address], [place], [address]. tel:[phone] Family History Family Member Type Diagnosis Age At Onset Mother Problem (finding) diabetes melli tus in first degree relative Mother Problem (finding) glaucoma Payers Payer name Insurance type Covered green party ID Authoriza tion(s) Blue Adv FVM CI [id number] Social History Type Description Quantity Date Captured [...]
[2025-02-08 17:20] VITALS: BP 114/68; PULSE 82; RESP 16; TEMP 36.8; O2SAT 100; BMI 33.0
[2025-02-08 17:48] VITALS: BP 114/68; PULSE 82; RESP 16; TEMP 36.8; O2SAT 100
--- OUTSIDE RECORDS SUMMARY | 2025-02-14 08:22 | XMS_ITS | Encounter Summary ---
Author Organization [facility] Address [address] [place] [address] Care Team Providers Care Engineer Remote Control Diesel Name Role Phone Anita Dumas Primary Care Provider [phone] Encounter Details Date Type Department Care Team ([facility] st Contact Info) Description 05/30/2024 Orders Only External Location [address] [place] [address] Provider, External Social History Tobacco Use Types [...] documented as of this encounter Care Teams Engineer Remote Control Diesel Relationship Specialty Start Date End Date Anita Dumas PA [address] [place] [address] PCP - General 08/06/22 documented as of this encounter
--- OUTSIDE RECORDS SUMMARY | 2025-02-14 08:22 | XMS_ITS | Clinical Summary ---
Author Organization [facility] Address [address] [place] [address] Phone Care Team Providers Care Neurology Nurse Name Role Phone Darnell Elizabeth MD Primary Care Provider [phone] Allergies Active Allergy Reactions Criticality Noted Date [...] patient's age to complete this topic Insurance [facility] [employer] Care Teams Neurology Nurse Relationship Specialty Start Date End Date Darnell Elizabeth MD [address] [place] [address] PCP - General Internal Medicine 12/31/12
--- OUTSIDE RECORDS SUMMARY | 2025-02-14 08:22 | XMS_ITS | Clinical Summary ---
Author Organization [facility] Address [address] [place] [address] Phone Care Team Providers Care Chairman And Ceo Name Role Phone Renzo BEARD, Chuck Schaffer [ ] Conditions or Problems Problem Name Problem Code Onset Date Status Entry Date Provider Comment Standard Description Annotate Orchitis 336386830 (SNOMED CT) 06/03 Active 06/03 Renata Mello Orchitis Coronary artery disease, S/P CABG 33529833 (SNOMED CT) 06/03 Active 06/03 Renata Mello Coronary arteriosclerosis Skin tissue necrosis 39569748 (SNOMED CT) 06/03 Active 06/03 Renata Mello Skin necrosis DM Type II E11.9 (ICD-10-CM) 06/03 Active 06/03 Renata Mello Type 2 diabetes mellitus without complications Abscess/Cell ulitis, scrotal 98832602 (SNOMED CT) 06/03 Active 06/03 Renata Mello Abscess of scrotum Nicotine dependence, cigarettes 271026719 (SNOMED CT) 06/03 Active 06/03 Renata Mello Tobacco user Medications Medication Instructions Start Date Stop Date Generic Name [facility] Provider ZOFRAN 4 MG ORAL TABLET 1 tablet every 8 hours as needed ONDANSETRON HCL 91748594596 Huan Shah MS CONTIN 15 MG CR-TABS 1 tablet twice daily MORPHINE SULFATE [id number] Huan Shah JANUMET 50-1000 MG TABS 1 tablet twice daily SITAGLIPTIN-METFO RMIN HCL [id number] Huan Shah DESIPRAMINE HCL 25 MG TABS 1 tablet nightly DESIPRAMINE HCL 82425358860 [facility] COREG 25 MG TABS 1 tablet twice daily CARVEDILOL [id number] [facility] OMEPRAZOLE 40 MG CPDR 1 capsule daily OMEPRAZOLE [id number] [facility] ALTOPREV 40 MG [id number] 1 tablet daily LOVASTATIN [id number] [facility] LISINOPRIL-HYDROCH LOROTHIAZIDE 10-12.5 MG TABS 1 tablet twice daily LISINOPRIL-HYDROC HLOROTHIAZIDE [id number] [facility] FARXIGA 10 MG TABS 1 tablet daily DAPAGLIFLOZIN PROPANEDIOL 73329228109 [facility] CYCLOBENZAPRINE HCL 10 MG TABS 1 tablet 3 times daily as needed for spasms CYCLOBENZAPRINE HCL 06453275529 [facility] ADULT ASPIRIN REGIMEN 81 MG ORAL TABLET DELAYED RELEASE 1 tablet daily ASPIRIN [id number] [facility] PERCOCET 10-325 MG TABS 1 tablet every 4 hours as needed OXYCODONE-ACETAMI NOPHEN 26457901642 [facility] ADALAT CC 90 MG ORAL TABLET EXTENDED RELEASE 24 HOUR 1 tablet daily NIFEDIPINE 91224898666 [facility] CYMBALTA 60 MG ORAL CAPSULE DELAYED RELEASE PARTICLES 1 capsule daily DULOXETINE HCL 54690987764 [facility] ACIDOPHILUS 100 MG CAPS 1 capsule twice daily LACTOBACILLUS 27680360526 [facility] AVIDOXY 100 MG TABS 1 tablet twice daily DOXYCYCLINE MONOHYDRATE [id number] [facility] AMOXICILLIN-POT CLAVULANATE 875-125 MG TABS 1 tablet twice daily AMOXICILLIN-POT CLAVULANATE 12435796360 [facility] Medications Administered No information available. Allergies, [...]
--- OUTSIDE RECORDS SUMMARY | 2025-02-14 08:22 | XMS_ITS | Clinical Summary ---
Author Organization [facility] Address [address] [place] [address] Care Team Providers Care Gastroenterology Teacher Name Role Phone Anita Dumas Primary Care Provider [phone] Allergies Active Allergy Reactions Criticality Noted Date [...] (2 - Td or Tdap) 05/05/2023 05/05/2013 [id number] Vaccine (1 - season) 2025 UKY-Influenza Vaccine (#1) 01/16/202505/30, 06/26/2016, 06/22/2016, Additional [...] <6.0% Children and Adolescents <7.5% . Source: [place] [employer]. Standards of medical care in diabetes, 2017. Diabetes Care.2017:40 (suppl 1):S1-S135. . HbA1c assay performed by an ion-exchange chromatography method that is certified traceable to the DCCT. 11/14/2018 6:10 PM EDT 11/14/2018 6:24 PM EDT us Mikel Dowell APRN LAB BLOOD ORDERABLES Final Re sult [facility] from Last 3 Months or Most Recently Relevant to Health Maintenance Insurance MEDICARE Care Teams Gastroenterology Teacher Relationship Specialty Start Date End Date Anita Dumas PA [address] [place] [address] PCP - General 08/06/22
--- OUTSIDE RECORDS SUMMARY | 2025-02-14 08:22 | XMS_ITS | Encounter Summary ---
Author Organization [facility] Address [address] [place] [address] Care Team Providers Care Retail Cashier Name Role Phone Anita Dumas Primary Care Provider [phone] Encounter Details Date Type Department Care Team ([facility] st Contact Info) Description 03/28/2024 Orders Only External Location [address] [place] [address] Provider, External Social History Tobacco Use Types [...] documented as of this encounter Care Teams Retail Cashier Relationship Specialty Start Date End Date Anita Dumas PA [address] [place] [address] PCP - General 08/06/22 documented as of this encounter
--- OUTSIDE RECORDS SUMMARY | 2025-02-14 08:22 | XMS_ITS | Encounter Summary ---
Author Organization [facility] Address [address] [place] [address] Care Team Providers Care Filler In Name Role Phone Anita Dumas Primary Care Provider [phone] Encounter Details Date Type Department Care Team ([facility] st Contact Info) Description 03/28/2024 Orders Only External Location [address] [place] [address] Provider, External Social History Tobacco Use Types [...] documented as of this encounter Care Teams Filler In Relationship Specialty Start Date End Date Anita Dumas PA [address] [place] [address] PCP - General 08/06/22 documented as of this encounter
--- OUTSIDE RECORDS SUMMARY | 2025-02-14 08:23 | XMS_ITS | Clinical Summary ---
Author Organization [facility] Address [address] [place] [address] Care Team Providers Care Numerical Control Programmer Name Role Phone Claudy Kim MD Primary Care Provider [phone] Allergies Active Allergy Reactions Criticality Noted Date [...] (05/21/2020): Added automatically from request for surgery [id number] Headache, unspecified headache type 05/19/2020 Chronic epididymitis 10/04/2019 Tobacco dependence 09/27/2019 Palpitations 09/27/2019 Paroxysmal atrial fibrillation 12/06/2018 Overview (12/06/2018): Post op 12/03 CVA (cerebral vascular accident) 12/06/2018 Overview (12/06/2018): 12/03 post op CABG Allergic rhinitis 02/07/2016 Tobacco abuse 02/07/2016 Abdominal wall hernia 02/07/2016 Coronary artery disease invo lving [place] coronary artery of [place] heart without angina pectoris 10/30/2015 Overview (12/06/2018): Description: s/p stenting times 3 and CABG 12/03 at [facility] Chronic mycotic otitis externa 10/30/2015 Uncontrolled type [...] 05/30/2020, 05/18, 01/26/2015 COLORECTAL CANCER SCREENING 05/30/2023 INFLUENZA VACCINE 12/16/2024 06/01/2019, , 05/30/2019, Additional history exists LUNG [...] - 5.60 % 03/22/2021 7:15 PM EDT [facility] Blood Venipuncture / Unknown 03/22/2021 9:25 AM EDT 03/22/2021 9:25 AM EDT Narrative [facility] - 03/22/2021 7:15 PM EDT Hemoglobin A1C Ranges: Increased Risk for Diabetes 5.7% to 6.4% Diabetes >= 6.5% Diabetic Goal < 7.0% us Darnell Elizabeth MD LAB BLOOD ORDERABLES Final R esult [facility]
[address] [place] [address], * (ABNORMAL) Lipid Panel (03/22/2021 9:25 AM EDT) Total Cholesterol 102 0 - 200 mg/dL 03/22/2021 7:50 PM EDT [facility] Triglycerides 120 0 - 150 mg/dL 03/22/2021 7:50 PM EDT [facility] HDL Cholesterol 29(L) 40 - 60 mg/dL 03/22/2021 7:50 PM EDT [facility] LDL Cholesterol 51 0 - 100 mg/dL 03/22/2021 7:50 PM EDT [facility] VLDL Cholesterol 22 5 - 40 mg/dL 03/22/2021 7:50 PM EDT [facility] LDL/HDL Ratio 1.69 03/22/2021 7:50 PM EDT [facility] Blood Venipuncture / Unknown 03/22/2021 9:25 AM EDT 03/22/2021 9:25 AM EDT [facility] - 03/22/2021 7:50 PM [...] MD LAB BLOOD ORDERABLES Final R esult [facility]
[address] [place] [address], * SCANNED - COLONOSCOPY (05/30/2020) us Donnell Howard MD CHART REVIEW TABS Bere l Result from Last 3 Months or Most [...] pulse or is breathing): Full Care Teams Numerical Control Programmer Relationship Specialty Start Date End Date Claudy Kim MD [facility] [address] [address] PCP - General Family Medicine 11/23/24
== END 2025-02-08 17:48 | disposition left against medical advice (07) ==
LOC: ER 02-14 08:18
PROVIDERS: Emergency Provider Student in an Organized Health Care Education/Training Program; PCP Family Medicine
DX: R51.9 Headache, unspecified (principal)
CPT/HCPCS: 99282

== ENCOUNTER 2025-03-22 16:03 | Emergency (ER) | payer MEDICARE, SELFPAY ==
--- OUTSIDE RECORDS SUMMARY | 2007-03-04 04:58 | XMS_ITS | Continuity of Care Document ---
Author Organization [facility] Address [address] [place] [phone] Phone Care Team Providers Care Circulation Clerk Name Role Phone Sourav Tripp MD Unavailable Unavailable Procedures Procedure Date Offic Cons New/estab Mod 40 Hi 07 Advance Directives Directive Yes / No Effective Date File Name Resuscitation Not Answered N/A N/A Life Support Not Answered N/A N/A Intubation Not Answered N/A N/A Antibiotics Not Answered N/A N/A IV Fluid Support Not Answered N/A N/A Tube Feed Not Answered N/A N/A Other Directive N/A N/A WARNING:The information contained in this section is historical and is provided for information only and does not constitute a legal document or any assurance that the information is still accurate. Please verify the information with the vázquez of the legal document before using it for clinical purposes. Encounters Encounter Description Practice Location Reason(s) For Visit Diagnoses Date Provider Providers Copied on Encounter Offic Cons New/estab Mod 40 [facility], [address] [place] [address], [id number], tel:[phone] [facility] ([place]) No Information Qasim Benjamin. [address] [place] [address], [id number], [place]. tel:[phone] Referring Provider: Hakan Pablo, [address] [place] [address], [place], [address]. tel:[phone] Family History Family Member Type Diagnosis Age At Onset Mother Problem (finding) diabetes melli tus in first degree relative Mother Problem (finding) glaucoma Payers Payer name Insurance type Covered alliance party ID Authoriza tion(s) Blue Adv FVM CI [id number] Social History Type Description Quantity Date Captured Comments Alcohol Use Details No Caffeine Use Details 1 cup daily per day Tobacco Use Status Smoking Status No Information Sex Male Chief Complaint And Reason For Visit No Information Reason For Referral Reason For Referral No Information History Of Present Illness Encounter Date Complaint History Of Prese nt Illness No Information Functional Status Date Functional Assessmen t No Information Instructions Date Instruction Additional Infor mation Cataract, Cortical, OU Related t o Cataract, Cortical NIDDM, No Retinopathy, OU Relate d to NIDDM, No Retinopathy Assessments Type Assessment Date No Information Patient Care Teams Name Effective Dates (start - stop) Status Members No Information
[2025-03-22 16:25] VITALS: BP 146/96; PULSE 85; RESP 20; TEMP 36.5; O2SAT 96; BMI 31.5
--- NOTE | 2025-03-22 16:28 | ECG_ITS ---
APPROVED REPORT Exam: Resting ECG HR:87 bpm ECG Measurements Heart Rate 87 AXES AZ 145 P -37 QRSd 121 QRS -74 QT 360 T 107 QTc 405 Conclusion SINUS RHYTHM LEFT ANTERIOR FASCICULAR BLOCK [QRS AXIS <= -45, QR IN I, RS IN II] POSSIBLE ANTERIOR MYOCARDIAL INFARCTION , PROBABLY OLD [30 ms Q WAVE IN V3/V4, OR R < 0.2 mV IN V4] ABNORMAL ECG UNCONFIRMED REPORT Normal sinus rhythm. No ST elevation or depression. QTc 405 Electronically signed by : EMMA HYATT, 03/23/2025 21:00:50
--- NOTE | 2025-03-22 16:28 | PC.NURSE ---
at end of triage, pt reports chest pain that started this date. pt states pain is located on right side of chest, denies pain radiating. pt rates pain 10/10 at times. pt states he took a Nitroglycerin and Oxycodone with relief.
--- NOTE | 2025-03-22 16:29 | XR_ITS ---
PROCEDURE INFORMATION: Exam: XR Chest Exam date and time: 03/22/2025 4:48 PM Age: 65 years old Clinical indication: Pain; On breathing; Additional info: Chest pain and SOA TECHNIQUE: Imaging protocol: Radiologic exam of the chest. Views: 2 views. COMPARISON: CR XR CHEST PORTABLE 11/04/2024 8:05 PM FINDINGS: Tubes, catheters and devices: A left subclavian pacemaker device is present, and its leads are in appropriate position. Lungs: Flattening of the hemidiaphragms and increase in the AP diameter of the chest suggest COPD. Minimal linear markings in the lung bases suggest atelectasis or parenchymal scarring. The lungs appear otherwise clear. No focal areas of consolidation. Pleural spaces: No pleural effusions. Negative for pneumothorax. Heart/Mediastinum: Cardiac silhouette and pulmonary vasculature are within range of normal. In atrial appendage clip is noted, as before. Vasculature: The descending thoracic aorta is mildly unfolded. Bones/joints: Sternal suture wires are in place suggesting prior median sternotomy and postoperative changes are present involving the mediastinum. There is no evidence of acute fracture. The thoracic spine demonstrates mild degenerative changes at multiple levels. A few remote left-sided rib fractures are present. IMPRESSION: 1. Flattening of the hemidiaphragms and increase in the AP diameter of the chest suggest COPD. 2. Minimal linear markings in the lung bases suggest atelectasis or parenchymal scarring.
--- NOTE | 2025-03-22 16:31 | PC.NURSE ---
radiology notified of orders.
--- OUTSIDE RECORDS SUMMARY | 2025-03-22 16:39 | XMS_ITS | Clinical Summary ---
Author Organization [facility] Address [address] [place] [address] Phone Care Team Providers Care Supervisor Cell Maintenance Name Role Phone Darnell Elizabeth MD Primary Care Provider [phone] Allergies Active Allergy Reactions Criticality Noted Date [...] Tdap) 05/05/2023 05/05/2013 COVID-19 Vaccine (1 - 2024-2 6 season) 2025 Influenza Vaccine (#1) 2025 02/05/2012 Hepatitis B Vaccine Aged Out No longe r eligible based on patient's age to complete this topic Meningococcal B Vaccine Aged Out No l onger eligible based on patient's age to complete this topic Insurance [facility] Care Teams Supervisor Cell Maintenance Relationship Specialty Start Date End Date Darnell Elizabeth MD [address] [place] [address] PCP - General Internal Medicine 12/31/12
--- OUTSIDE RECORDS SUMMARY | 2025-03-22 16:39 | XMS_ITS | Clinical Summary ---
Author Organization [facility] Address [address] [place] [address] Care Team Providers Care Stage Settings Painter Name Role Phone Anita Dumas Primary Care Provider Allergies Active Allergy Reactions Criticality Noted Date [...] (2 - Td or Tdap) 05/05/2023 05/05/2013 [id number] Vaccine (1 - season) 2025 UKY-Influenza Vaccine [...] <6.0% Children and Adolescents <7.5% . Source: [place] [employer]. Standards of medical care in diabetes, 2017. Diabetes Care.2017:40 (suppl 1):S1-S135. . HbA1c assay performed by an ion-exchange chromatography method that is certified traceable to the DCCT. 11/14/2018 6:10 PM EDT 11/14/2018 6:24 PM EDT us Mikel Dowell APRN LAB BLOOD ORDERABLES Final Re sult [employer] from Last 3 Months or Most Recently Relevant to Health Maintenance Insurance MEDICARE Care Teams Stage Settings Painter Relationship Specialty Start Date End Date Anita Dumas PA [address] [place] [address] PCP - General 08/06/22
--- OUTSIDE RECORDS SUMMARY | 2025-03-22 16:39 | XMS_ITS | Referral Summary ---
Author Organization [employer] ([place], [place], [place], [place], [place]) Address [address] [place] [id number] Care Team Providers Care Carton Catcher Name Role Phone Unavailable Primary Care Provider [...]
--- OUTSIDE RECORDS SUMMARY | 2025-03-22 16:39 | XMS_ITS | Data Portability ---
Author Organization MARIANNE KHANH [facility] Address [address] [facility] [address] [place] [address] Care Team Providers Care Senior Publications Specialist Name Role Phone WILLIS SHRESTHA Primary Care Provider CLAUDY LUQUE Urologist KATARZYNA MULLER Infectious Disease [phone] [facility]EL SEXTON Pain Management Assessment Encounter [...] Schedule scrotal ultrasound. Follow-up in 1-2 weeks. lisa Not available 05/24/2019 10:21:36 06/06/2019 06/06/2019 59 [...] Plan: Arrange wound VAC change through the [facility] wound care nurse. Complete course of [...] Augmentin 875 mg-125 mg tablet 2019 020 [id number], [address] [place], [id number], 1 11:00:44 Percocet 5 mg-325 mg tablet 2019 020 [id number], [address] [place], [id number], 1 11:02:37 Augmentin 875 mg-125 mg tablet 2019 020 [facility][id number], [address] [place], [id number], 1 11:00:44 Percocet 5 mg-325 mg tablet 2019 020 [id number], [address] [place], [id number], 1 11:02:37 Patient TargetsNo targets recorded. Patient InstructionsNo instructions recorded. Reason for Referral None Reported. Results Created Date Observation Date Name Description Value Unit Range Abnormal Flag Note LastModifiedBy Organization Detail LastModifiedTime 05/16/20 19 05/16/2019 urina lysis , dipst ick, auto Unknown Analyte Yellow Not Available [facility] [address] [place], [address], 05/16/2019 07:54:25 05/16/20 19 05/16/2019 urina lysis , dipst ick, auto Unknown Analyte Clear Not Available [facility] [address] [place], [address], 05/16/2019 07:54:25 05/16/20 19 05/16/2019 urina lysis , dipst ick, auto Unknown Analyte 1.015 Not Available [facility] [address] [place], [address], 05/16/2019 07:54:25 05/16/20 19 05/16/2019 urina lysis , dipst ick, auto Unknown Analyte 1.003 - 1.035 Not Available [facility] [address] [place], [address], 05/16/2019 07:54:25 05/16/20 19 05/16/2019 urina lysis , dipst ick, auto Unknown Analyte 5.0 Not Available [facility] [address] [place] [address], [address], 05/16/2019 07:54:25 05/16/2005/16/2019 urina lysis , dipst ick, auto Unknown Analyte 5.0 - 8.0 Not Available [facility] [address] [place] [address], [address], 05/16/2019 07:54:25 05/16/2005/16/2019 urina lysis , dipst ick, auto Unknown Analyte Negati ve Not Available [facility] [address] [place] [address], [address], 05/16/2019 07:54:25 05/16/2005/16/2019 urina lysis , dipst ick, auto Unknown Analyte Negati ve Not Available [facility] [address] [place] [address], [address], 05/16/2019 07:54:25 05/16/2005/16/2019 urina lysis , dipst ick, auto Unknown Analyte Negati ve Not Available [facility] [address] [place] [address], [address], 05/16/2019 07:54:25 12/05/16/2019 urina lysis , dipst ick, auto Unknown Analyte Negati ve Not Available [facility] [address] [place], [address], 05/16/2019 07:54:25 05/16/2005/16/2019 urina lysis , dipst ick, auto Unknown Analyte Negtiv e Not Available [facility] [address] [place] [address], [address], 05/16/2019 07:54:25 05/16/2005/16/2019 urina lysis , dipst ick, auto Unknown Analyte Negati ve - Trace Not Available [facility] [address] [place] [address], [address], 05/16/2019 07:54:25 05/16/2005/16/2019 urina lysis , dipst ick, auto Unknown Analyte Normal Not Available [facility] [address] [place] [address], [address], 05/16/2019 07:54:25 05/16/2005/16/2019 urina lysis , dipst ick, auto Unknown Analyte Normal Not Available [facility] [address] [place] [address], [address], 05/16/2019 07:54:25 05/16/2005/16/2019 urina lysis , dipst ick, auto Unknown Analyte Negati ve Not Available [facility] [address], [address], 05/16/2019 07:54:25 05/16/2005/16/2019 urina lysis , dipst ick, auto Unknown Analyte Negati ve Not Available [facility] [address] [place] [address], [address], 05/16/2019 07:54:25 05/16/2005/16/2019 urina lysis , dipst ick, auto Unknown Analyte Normal Not Available [facility] [address] [place], [address], 05/16/2019 07:54:25 05/16/20 19 05/16/2019 urina lysis , dipst ick, auto Unknown Analyte Normal - 1mg/dl Not Available [facility] [address] [place] [address], [address], 05/16/2019 07:54:25 05/16/20 19 05/16/2019 urina lysis , dipst ick, auto Unknown Analyte Negati ve Not Available [facility] [address] [place] [address], [address], 05/16/2019 07:54:25 05/16/2005/16/2019 urina lysis , dipst ick, auto Unknown Analyte Negati ve Not Available [facility] [address], [address], 05/16/2019 07:54:25 05/16/20 19 05/16/2019 urina lysis , dipst ick, auto Unknown Analyte Negati ve Not Available [facility] [address], [address], 05/16/2019 07:54:25 05/16/20 19 05/16/2019 urina lysis , dipst ick, auto Unknown Analyte Negati ve Not Available [facility] [address], [address], 05/16/2019 07:54:25 05/16/20 19 05/16/2019 urina lysis , dipst ick, auto Unknown Analyte Clean Catch Not Available [facility] [address], [address], 05/16/2019 07:54:25 05/16/20 19 05/16/2019 urina lysis , dipst ick, auto Unknown Analyte Automa carlos Not Available [facility] [address], [address], 05/16/2019 07:54:25 05/24/19 20 05/24/2019 urina lysis , dipst ick, auto Unknown Analyte Yellow Not Available [facility] [address] [place] [address], [address], 05/24/2019 10:02:15 05/24/19 20 05/24/2019 urina lysis , dipst ick, auto Unknown Analyte Clear Not Available [facility] [address] [place] [address], [address], 05/24/2019 10:02:15 05/24/1905/24/2019 urina lysis , dipst ick, auto Unknown Analyte 1.010 Not Available [facility] [address] [place] [address], [address], 05/24/2019 10:02:15 05/24/19 20 05/24/2019 urina lysis , dipst ick, auto Unknown Analyte 1.003 - 1.035 Not Available [facility] [address], [address], 05/24/2019 10:02:15 05/24/19 20 05/24/2019 urina lysis , dipst ick, auto Unknown Analyte 5.0 Not Available [facility] [address], [address], 05/24/2019 10:02:15 05/24/1905/24/2019 urina lysis , dipst ick, auto Unknown Analyte 5.0 - 8.0 Not Available [facility] [address], [address], 05/24/2019 10:02:15 05/24/19 20 05/24/2019 urina lysis , dipst ick, auto Unknown Analyte Negati ve Not Available [facility] [address], [address], 05/24/2019 10:02:15 05/24/19 20 05/24/2019 urina lysis , dipst ick, auto Unknown Analyte Negati ve Not Available [facility] [address], [address], 05/24/2019 10:02:15 05/24/19 20 05/24/2019 urina lysis , dipst ick, auto Unknown Analyte Negati ve Not Available [facility] [address], [address], 05/24/2019 10:02:15 05/24/1905/24/2019 urina lysis , dipst ick, auto Unknown Analyte Negtiv e Not Available [facility] [address], [address], 05/24/2019 10:02:15 05/24/19 20 05/24/2019 urina lysis , dipst ick, auto Unknown Analyte Negati ve - Trace Not Available [facility] [address], [address], 05/24/2019 10:02:15 05/24/1905/24/2019 urina lysis , dipst ick, auto Unknown Analyte Normal Not Available [facility] [address], [address], 05/24/2019 10:02:15 05/24/19 20 05/24/2019 urina lysis , dipst ick, auto Unknown Analyte Normal Not Available [facility] [address], [address], 05/24/2019 10:02:15 05/24/1905/24/2019 urina lysis , dipst ick, auto Unknown Analyte Negati ve Not Available [facility] [address], [address], 05/24/2019 10:02:15 05/24/19 20 05/24/2019 urina lysis , dipst ick, auto Unknown Analyte Negati ve Not Available [facility] [address] [place], [address], 05/24/2019 10:02:15 05/24/19 20 05/24/2019 urina lysis , dipst ick, auto Unknown Analyte Normal Not Available [facility] [address] [place] [address], [address], 05/24/2019 10:02:15 05/24/19 20 05/24/2019 urina lysis , dipst ick, auto Unknown Analyte Normal - 1mg/dl Not Available [facility] [address] [place] [address], [address], 05/24/2019 10:02:15 05/24/19 20 05/24/2019 urina lysis , dipst ick, auto Unknown Analyte Negati ve Not Available [facility] [address] [place] [address], [address], 05/24/2019 10:02:15 05/24/1905/24/2019 urina lysis , dipst ick, auto Unknown Analyte Negati ve Not Available [facility] [address] [place] [address], [address], 05/24/2019 10:02:15 05/24/1905/24/2019 urina lysis , dipst ick, auto Unknown Analyte Negati ve Not Available [facility] [address], [address], 05/24/2019 10:02:15 05/24/1905/24/2019 urina lysis , dipst ick, auto Unknown Analyte Negati ve Not Available [facility] [address] [place] [address], [address], 05/24/2019 10:02:15 05/24/1905/24/2019 urina lysis , dipst ick, auto Unknown Analyte Clean Catch Not Available [facility] [address] [place] [address], [address], 05/24/2019 10:02:15 05/24/19 20 05/24/2019 urina lysis , dipst ick, auto Unknown Analyte Visual Not Available [facility] [address] [place] [address], [address], 05/24/2019 10:02:15 06/06/1906/06/2019 urina lysis , dipst ick, auto Unknown Analyte Yellow Not Available [facility] [address], [address], 06/06/2019 07:36:23 06/06/1906/06/2019 urina lysis , dipst ick, auto Unknown Analyte Clear Not Available [address], [address], 06/06/2019 07:36:23 06/06/1906/06/2019 urina lysis , dipst ick, auto Unknown Analyte 1.005 Not Available [address], [address], 06/06/2019 07:36:23 06/06/1906/06/2019 urina lysis , dipst ick, auto Unknown Analyte 6.0 Not Available [facility] [address], [address], 06/06/2019 07:36:23 06/06/1906/06/2019 urina lysis , dipst ick, auto Unknown Analyte Negati ve Not Available [address], [address], 06/06/2019 07:36:23 06/06/1906/06/2019 urina lysis , dipst ick, auto Unknown Analyte Negati ve Not Available [facility] [address], [place], [address], 06/06/2019 07:36:23 06/06/19 20 06/06/2019 urina lysis , dipst ick, auto Unknown Analyte Negtiv e Not Available [facility] [address] [place] [address], [address], 06/06/2019 07:36:23 06/06/19 20 06/06/2019 urina lysis , dipst ick, auto Unknown Analyte 250 mg/dl Not Available [facility] [address], [address], 06/06/2019 07:36:23 06/06/1906/06/2019 urina lysis , dipst ick, auto Unknown Analyte Negati ve Not Available [facility] [address], [address], 06/06/2019 07:36:23 06/06/1906/06/2019 urina lysis , dipst ick, auto Unknown Analyte Normal Not Available [facility] [address], [address], 06/06/2019 07:36:23 06/06/19 20 06/06/2019 urina lysis , dipst ick, auto Unknown Analyte Negati ve Not Available [facility] [address], [address], 06/06/2019 07:36:23 06/06/19 20 06/06/2019 urina lysis , dipst ick, auto Unknown Analyte Negati ve Not Available [facility] [address], [address], 06/06/2019 07:36:23 06/06/19 20 06/06/2019 urina lysis , dipst ick, auto Unknown Analyte Clean Catch Not Available [facility] [address], [address], 06/06/2019 07:36:23 06/06/19 20 06/06/2019 urina lysis , dipst ick, auto Unknown Analyte Automa carlos Not Available [address], [address], 06/06/2019 07:36:23 06/29/19 20 06/29/2019 urina lysis , dipst ick, auto Unknown Analyte Yellow Not Available [address], [address], 06/29/2019 10:49:43 06/29/1906/29/2019 urina lysis , dipst ick, auto Unknown Analyte Clear Not Available [address], [address], 06/29/2019 10:49:43 06/29/19 20 06/29/2019 urina lysis , dipst ick, auto Unknown Analyte 1.015 Not Available [address], [address], 06/29/2019 10:49:43 06/29/19 20 06/29/2019 urina lysis , dipst ick, auto Unknown Analyte 1.003 - 1.035 Not Available [address], [address], 06/29/2019 10:49:43 06/29/19 20 06/29/2019 urina lysis , dipst ick, auto Unknown Analyte 5.0 Not Available [address], [address], 06/29/2019 10:49:43 06/29/19 20 06/29/2019 urina lysis , dipst ick, auto Unknown Analyte 5.0 - 8.0 Not Available [address], [address], 06/29/2019 10:49:43 06/29/19 20 06/29/2019 urina lysis , dipst ick, auto Unknown Analyte Negati ve Not Available [facility] [address], [address], 06/29/2019 10:49:43 06/29/19 20 06/29/2019 urina lysis , dipst ick, auto Unknown Analyte Negati ve Not Available [facility] [address], [address], 06/29/2019 10:49:43 06/29/19 20 06/29/2019 urina lysis , dipst ick, auto Unknown Analyte Negati ve Not Available [facility] [address], [address], 06/29/2019 10:49:43 06/29/19 20 06/29/2019 urina lysis , dipst ick, auto Unknown Analyte Negati ve Not Available [facility] [address], [address], 06/29/2019 10:49:43 06/29/19 20 06/29/2019 urina lysis , dipst ick, auto Unknown Analyte Negtiv e Not Available [facility] [address], [address], 06/29/2019 10:49:43 06/29/19 20 06/29/2019 urina lysis , dipst ick, auto Unknown Analyte Negati ve - Trace Not Available [facility] [address], [address], 06/29/2019 10:49:43 06/29/19 20 06/29/2019 urina lysis , dipst ick, auto Unknown Analyte Normal Not Available [facility] [address], [address], 06/29/2019 10:49:43 06/29/19 20 06/29/2019 urina lysis , dipst ick, auto Unknown Analyte Normal Not Available [facility] [address] [place], [address], 06/29/2019 10:49:43 06/29/19 20 06/29/2019 urina lysis , dipst ick, auto Unknown Analyte Negati ve Not Available [facility] [address] [place] [address], [address], 06/29/2019 10:49:43 06/29/19 20 06/29/2019 urina lysis , dipst ick, auto Unknown Analyte Negati ve Not Available [facility] [address], [address], 06/29/2019 10:49:43 06/29/19 20 06/29/2019 urina lysis , dipst ick, auto Unknown Analyte Normal Not Available [facility] [address] [place] [address], [address], 06/29/2019 10:49:43 06/29/19 20 06/29/2019 urina lysis , dipst ick, auto Unknown Analyte Normal - 1mg/dl Not Available [facility] [address] [place] [address], [address], 06/29/2019 10:49:43 06/29/19 20 06/29/2019 urina lysis , dipst ick, auto Unknown Analyte Negati ve Not Available [facility] [address], [address], 06/29/2019 10:49:43 06/29/19 20 06/29/2019 urina lysis , dipst ick, auto Unknown Analyte Negati ve Not Available [facility] [address], [address], 06/29/2019 10:49:43 06/29/19 20 06/29/2019 urina lysis , dipst ick, auto Unknown Analyte Negati ve Not Available [facility] [place], [address], 06/29/2019 10:49:43 06/29/19 20 06/29/2019 urina lysis , dipst ick, auto Unknown Analyte Negati ve Not Available [facility] [address] [place], [address], 06/29/2019 10:49:43 06/29/19 20 06/29/2019 urina lysis , dipst ick, auto Unknown Analyte Clean Catch Not Available [facility] [place], [address], 06/29/2019 10:49:43 06/29/19 20 06/29/2019 urina lysis , dipst ick, auto Unknown Analyte Automa carlos Not Available [facility] [address] [place], [address], 06/29/2019 10:49:43 Result Notes None recorded. Problems Name Problem SNOMED Code Status Onset Date Resolution Date Notes Provider Name and Address Organization Details Recorded Time Mixed conductiv e AND sensorine ural hearing loss 74700867 Active 2015 From Automated Load;Prov ider: Dorian Hurd III tatus: Active Not Available [facility] 6 09:39:57 Otitis externa 2629038 Active 2015 Provider: Dorian Hurd III tatus: Active Not Available [facility] 6 09:39:57 Otitis externa of right ear 71287852956 93854 Active 2015 From Automated Load;Prov ider: Dorian Hurd III tatus: Active Not Available [facility] 6 09:39:57 Otorrhea 53928184 Active 2015 From Automated Load;Prov ider: Dorian Hurd III tatus: Active Not Available [facility] 6 09:39:57 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 Procedures Surgical History Date Name Laterality Status Provider Name and Address Organization Details Recorded Time 06/20/19 20 repair of scrotum completed CLAUDY LUQUE MD [address] [place] [address], [address], [facility] 06/20/2019 16:56:31 05/29/19 20 Scrotal surgery completed CLAUDY LUQUE MD [address] [place] [address], [facility] 06/20/2019 16:57:39 Heart Surgery completed Fani Huffman [facility] 02/08/2019 16:35:08 Hernia Repair completed CLAUDY LUQUE MD [address] [place] [address], [address], [facility] 04/04/2019 14:53:49 Orchiectomy completed CLAUDY LUQUE MD [address] [place] [address], [facility] 04/04/2019 14:54:02 Hydrocele Repair completed CLAUDY LUQUE MD [address] [place] [address], [address], [facility] 04/04/2019 14:54:16 Mastoidectomy completed Janet Stoll [facility] 12/14/2020 11:10:11 Imaging Results None recorded. Procedure Notes None recorded. Medical Equipment None Reported. Allergies Allergen ID Allergen Name Allergen Category Reaction Reaction Severity Criticality Documentation Date Start Date Code Code System Note Provider Name and Address Organization Details Recorded Time 035046 acetamino phen / oxycodone medicatio n nausea Not available Not available 02/08/2019 59267 3 RxNorm He can take 5 mg dose CLAUDY LUQUE MD [address] [place] [address], [address] , [facility] 9 15:06:12 377078 Bactrim medicatio n dizziness respirato ry distress Not available Not available Not available 02/11/2019 23660 9 RxNorm CLAUDY LUQUE MD [address] [place], [address] [place] [address] 9 07:45:25 Medications Name Sig Start Date [...] ne propionat e 50 mcg/actua tion nasal spray,[facility] 12/14 completed Not Available Not Available Not Available metformin ER 500 mg tablet,ex tended release 24 hr 12/14 completed Not Available Not Available Not Available ezetimibe 10 mg tablet TAKE 1 TABLET BY MOUTH ONCE DAILY 12/14 completed Not Available Not Available Not Available Ciprodex 0.3 %-0.1 % ear drops,[facility] 02/08 completed Not Available Not Available Not [...] YOU DIDN T RECEIVE INSTRUCT IONS CALL [phone] 12/14 completed Not Available Not Available Not [...] Updated DateTime 05/24/2019 177.8 cm 33.9 kg/m2 012088.8 g 86 /min [facility] 05/24/2019 10:02:36 Date Recorded Body height Body mass index (BMI) Body weight Provider Name and Address Organization Details Last Updated DateTime 06/06/2019 177.8 cm 33.9 kg/m2 623179.8 g Sarah Mora [facility] 06/06/2019 07:36:09 Date Recorded Body height Body mass index (BMI) Body weight Heart rate Provider Name and Address Organization Details Last Updated DateTime 06/13/2019 177.8 cm 33.9 kg/m2 398930.8 g 86 /min [facility] 06/13/2019 07:50:01 Date Recorded Body height Body mass index (BMI) Body weight Provider Name and Address Organization Details Last Updated DateTime 06/29/2019 177.8 cm 33.9 kg/m2 041717.8 g [facility] 06/29/2019 10:49:27 Date Recorded Body weight Body temperature Body mass index (BMI) Body height Heart rate Systolic And Diastolic Provider Name and Address Organization Details Last Updated DateTime 1 27874.3 2 g 97.7 [degF] 31.6 kg/m2 177.8 cm 75 /min 131/69 mm[Hg] Janet Stoll [facility] 11:09:26 Social History Question Answer Notes LastModified by Organizat ion Details LastModified Time Tobacco Smoking Status Current Every Day Smoker Janet Hewitts [facility] 12/14/2020 11:04:32 Marital Status Informatio n not [...] Y Diabetes Y Arthritis Y Stroke Y High Cholesterol Y Sleep Disorder Y Heart Disease Y Hypertension Y Past Encounters Encounter ID Performer Location Encounter Start Date Encounter Closed Date Diagnosis/Indication Diagnosis SNOMED-CT Code Diagnosis ICD10 Code Diagnosis IMO Codes Diagnosis Note [id number] CLAUDY LUQUE MD [facility] [address] [place] [address] 02/08/2019 15:22:29 02/09/2019 07:11:35 Epididymitis 46618542 N45.1 Hydrocele 20434864 N43.3 [id number] CLAUDY LUQUE MD [facility] [address] [place] [address] 03/01/2019 07:35:36 03/01/2019 08:32:45 Epididymitis 95526294 N45.1 Hydrocele 07465497 N43.3 [id number] CLAUDY LUQUE MD SURGERY SCHEDULE [address] [place] [address] 1 04/04/2019 11:38:23 04/04/2019 11:39:05 Hydrocele of testis 70290572 N43.3 [id number] CLAUDY LUQUE MD [facility] [address] [place] [address] 1 04/22/2019 07:42:36 04/22/2019 08:20:59 Epididymitis 63438694 N45.1 Hydrocele 50916337 N43.3 Hematoma of scrotum 8996 6002 M79.81 [id number] CLAUDY LUQUE MD [facility] [address] [place] [address] 1 05/16/2019 07:33:42 05/16/2019 08:55:46 Hydrocele 83456260 N43.3 Hematoma of scrotum 8996 6002 M79.81 Orchitis a nd epididymitis 416465848 N45.3 [id number] CLAUDY LUQUE MD [facility] [address] [place] [address] 1 05/24/2019 09:09:43 05/24/2019 10:36:10 Orchitis and epididymitis 133286975 N45.3 Hydrocele 10516575 N43.3 Hematoma of scrotum 8996 6002 M79.81 [id number] CLAUDY LUQUE MD [facility] [address] [place] [address] 1 06/06/2019 07:34:58 06/06/2019 08:50:46 Orchitis and epididymitis 281986863 N45.3 Abscess of scrotum 02954 006 N49.2 [id number] CLAUDY LUQUE MD [facility] [address] [place] [address] 1 06/13/2019 07:45:46 06/13/2019 08:18:58 Orchitis and epididymitis 533788795 N45.3 Abscess of scrotum 29136 006 N49.2 [id number] CLAUDY LUQUE MD SURGERY SCHEDULE [address] [place] [address] [place] [address] 06/20/2019 13:07:55 06/20/2019 13:09:42 Disorder of scrotum 66526761 N50.9 Orchitis a nd epididymitis 269317538 N45.3 [id number] CLAUDY LUQUE MD [facility]OLOGY [facility] [address] [place] [address] 06/29/2019 10:43:58 06/29/2019 12:20:35 Orchitis and epididymitis 565202706 N45.3 Abscess of scrotum 55391 006 N49.2 Health Concerns Section Related Observation LastModified by Organization Detai ls LastModified Time None Recorded Concern Status LastModified by Organization Details LastModified Time None Recorded Advance Directives Directive None Recorded Payers Insurance Date Sequence Insurance Name Policy Number Policy Burkett Covered Member ID Burkett Member ID Guarantor Name 12/11/2020 1 [place] Cristobal Vargas [id number] Cristobal Vargas 07/28/2018 1 *SELF PAY* [...] with Augmentin for epididymoorchitis. 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 He denies family history of prostate [...] trouble. He denies fever. CLAUDY LUQUE MD [address] [place] [address], [phone], [facility] 05/24/2019 10:21:51 06/06/2019 text/html Diagnoses: Right inguinal [...] Augmentin for epididymo-orchitis. He was admitted to [facility] and underwent left scrotal exploration and debridement 05/29/2019. He subsequently had placement of a wound VAC. 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 CLAUDY LUQUE MD [address] [place] [address], [phone], [facility] 06/06/2019 08:34:31 06/13/2019 text/html Diagnoses: Right inguinal [...] urgency, dysuria, or decreased flow. He saw nc and was prescribed Bactrim DS 02/08/2019, he had dizziness and shortness of breath after a few doses and was switched to Cipro 14 days. He underwent left hydrocelectomy 04/04/2019. This was complicated by scrotal hematoma and which opened spontaneously. They started wound packing 04/22/2019 and he was treated with Augmentin for epididymo-orchitis. He was admitted to [facility] and underwent left scrotal exploration and debridement 05/29/2019. He subsequently had placement of a wound VAC. 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 CLAUDY LUQUE MD [address] [place], [phone], [facility] 06/13/2019 08:15:57 06/29/2019 text/html Diagnoses: Right inguinal [...] Augmentin for epididymo-orchitis. He was admitted to [facility] and underwent left scrotal exploration and debridement 05/29/2019. He subsequently had placement of a wound VAC. He underwent closure of the scrotal wound 06/20/2019. 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 HPI: The patient is here with his Angelic for follow-up after closure of the scrotal wound last week. He has been taking Augmentin. He is on chronic narcotics. He went to the emergency room last night for scrotal pain. He denies voiding trouble. CLAUDY LUQUE MD [address] [facility], [place], [address], [facility] 06/29/2019 11:32:37
--- OUTSIDE RECORDS SUMMARY | 2025-03-22 16:40 | XMS_ITS | Encounter Summary ---
Author Organization [employer] ([place], [place], [place], [place], [place]) Address [address] [place] [address] Care Team Providers Care Finishing Machine Tender Name Role Phone Unavailable Primary Care Provider Unavailabl e Encounter Details Date Type Department Care Team (Late st Contact Info) Description 05/28/2019 Transcribed Document [facility] [place] Family [place] [facility] [place] [address] ProviderMelanie MD [address] [place] [address] Social History Tobacco Use Types Packs/Day Years Used Date Smoking Tobacco: Never Assessed Sex and Gender Information Value Date Recorded Sex Assigned at Not on file Legal Sex Male 4:07 PM CDT Gender Identity Not on file Sexual Orientation Not on file documented as of this encounter Miscellaneous Notes * Cerner Conversion Note - Melanie ProviderMD - 05/28/2019 6:12 PM INSPECTOR FINAL ASSEMBLY MECHANICAL ED Triage Entered On: 05/28/2019 18:28 EST [...] Tracking Group : [facility] ED KEN GAY RN - 05/28/2019 [...] Onset Date: Unspecified ; Created By: Contributor_system, HIST_Glycobia; Reaction Status: Active ; Category: Drug ; Substance: No Known Allergies ; Type: Allergy ; Updated By: Contributor_system, HIST_CERMIHIR; Reviewed Date: 05/28/2019 18:16 EST Diagnosis Control ED (As Of: 05/28/2019 18:28:03 EST) Diagnoses(Active) Abscess - complicated Date: 05/28/2019 ; Diagnosis Type: Reason For Visit ; Confirmation: Complaint of ; Clinical Dx: Abscess - complicated ; Classification: Medical ; Clinical Service: Emergency medicine ; Code: PNED ; Probability: 0 ; Diagnosis Code: [id number] ED Height and Weight Height Source : Stated Height Entry Format : [place] Height, Feet : 5 ft(Converted to: 152 cm, 60 Inch) Height, Inches : 4 Inch(Converted to: 0 ft 4 Inch, 10.16 cm) Clinical Height : 162.56 cm Weight Source, ED : Critical estimated dosing weight Weight Entry Format : [place] Weight, Pounds : 225 lb Clinical Dosing Weight : 102.27 kg Body Surface Area (BSA) : 2.06 m2 Body Mass Index : 38.7 kg/m2 (HI) [place] Body Weight (IBW) : 58.3 kg KEN GAY RN - 05/28/2019 18:16 EST Electronically signed by Angel, [facility] Conversion Brattice Builder Cerner at 09/05/2022 2:17 PM CDT documented in this encounter Plan of Treatment Not on file documented as of this encounter Visit Diagnoses Not on filedocumented in this encounter
--- OUTSIDE RECORDS SUMMARY | 2025-03-22 16:40 | XMS_ITS | Encounter Summary ---
Author Organization [employer] ([place], [place], [place], [place], [place]) Address [address] [place] [address] Care Team Providers Care Logistics Team Lead Name Role Phone Unavailable Primary Care Provider Unavailabl e Encounter Details Date Type Department Care Team (Late st Contact Info) Description 05/31/2019 Transcribed Document [facility] [place] Family Medicine [address] [place] [address] ProviderMelanie MD [address] [place] [address] Social History Tobacco Use Types Packs/Day Years Used Date Smoking Tobacco: Never Assessed Sex and Gender Information Value Date Recorded Sex Assigned at Not on file Legal Sex Male 4:07 PM CDT Gender Identity Not on file Sexual Orientation Not on file documented as of this encounter Miscellaneous Notes * Cerner Conversion Note - Historical ProviderMD - 05/31/2019 5:00 PM CARBON FURNACE OPERATOR Chart Check - Review Order Profile [...]
--- OUTSIDE RECORDS SUMMARY | 2025-03-22 16:40 | XMS_ITS | Encounter Summary ---
Author Organization [employer] ([place], [place], [place], [place], [place]) Address [address] [place] [address] Care Team Providers Care Cardiac Exercise Specialist Name Role Phone Unavailable Primary Care Provider Unavailabl e Encounter Details Date Type Department Care Team (Late st Contact Info) Description 05/28/2019 Transcribed Document [facility] [place] Family Medicine [facility] [place] [address] ProviderMelanie MD [facility] [place], [place] [id number] Social History Tobacco Use Types Packs/Day Years Used Date Smoking Tobacco: Never Assessed Sex and Gender Information Value Date Recorded Sex Assigned at Not on file Legal Sex Male 4:07 PM CDT Gender Identity Not on file Sexual Orientation Not on file documented as of this encounter Miscellaneous Notes * Cerner Conversion Note - Melanie Grider MD - 05/28/2019 8:56 PM FIREBRICK LAYER Patient: TERRI MOREL Age: 59 years Sex: [...] Patient reports he has been taking his Plain Percocet and morphine at home with no [...] Oral, BID vancomycin: 1,000 mg, IV Piggyback, J56XNiv, Medications (16) Active Scheduled: (6) famotidine 20 mg tab 20 mg 1 Tab, Oral, BID HYDROmorphone 1 mg/1 mL inj 1 mg 1 mL, IV Push, 1-Time insulin lispro Scale D:, SubCutaneous, AC and at Bedtime lactobacillus acidophilus cap 1 Cap, Oral, BID piperacillin-tazobactam 3.375 Gram, IV Piggyback, Q6HInt vancomycin 1,000 mg, IV Piggyback, M89MVtm Continuous: (1) NaCl 0.45% 1000 mL 1,000 [...] diabetes mellitus Procedure history: Right total orchiectomy (7248530266). Repair of right inguinal hernia (2223263666). Hydrocele (7655335864). CABG (Coronary artery bypass grafting) planned (7533276179). Social History Social & Psychosocial Habits No Data Available . Physical Examination VS/Measurements Vitals Signs (last 24 hrs) Last Charted Minimum Maximum Temp 98.6 (MAY 28:) 98.6 (MAY 28:) 98.6 (MAY 28:) Periph HR 75 (MAY 28:16) 75 (MAY 28:16) 75 (MAY 28:16) Resp Rate 18 (MAY 28:16) 18 (MAY 28 18:16) 18 (MAY 28:) SBP H 148 (MAY 28:16) H 148 (MAY 28:16) H 148 (MAY 28:) DBP 89 (MAY 28:) 89 (MAY 28:16) 89 (MAY 28:) SpO2 100 (MAY 28:) 100 (MAY 28:) [...]
--- OUTSIDE RECORDS SUMMARY | 2025-03-22 16:40 | XMS_ITS | Encounter Summary ---
Author Organization [employer] ([place], [place], [place], [place], [place]) Address [address] [place] [address] Care Team Providers Care Leather Staker Name Role Phone Unavailable Primary Care Provider Unavailabl e Encounter Details Date Type Department Care Team (Late st Contact Info) Description 05/29/2019 Transcribed Document [facility] [place] [address] [place] [address] ProviderMelanie MD [address] [place] [address] Social History Tobacco Use Types Packs/Day Years Used Date Smoking Tobacco: Never Assessed Sex and Gender Information Value Date Recorded Sex Assigned at Not on file Legal Sex Male 4:07 PM CDT Gender Identity Not on file Sexual Orientation Not on file documented as of this encounter Miscellaneous Notes * Cerner Conversion Note - Historical ProviderMD - 05/29/2019 11:15 AM ESOL INSTRUCTOR [facility] Main OR PACU Summary Primary Physician: JC LUQUE MD-URO Finalized Date/Time: 05/29/19 13:38:14 Pt. Name: TERRI MOREL D.O.B./Sex: 1960 Male Med Rec #: [id number] Physician: FRANCOIS WISE DO Financial #: [id number] Pt. Type: I Room/Bed: [facility]/ Admit/Disch: 05/28/19 20:28:00 - Institution: [facility] Main OR PACU I Case Times [...]
--- OUTSIDE RECORDS SUMMARY | 2025-03-22 16:40 | XMS_ITS | Encounter Summary ---
Author Organization [employer] ([place], [place], [place], [place], [place]) Address [address] [place] [address] Care Team Providers Care Target Aircraft Technician Name Role Phone Unavailable Primary Care Provider Unavailabl e Encounter Details Date Type Department Care Team (Late st Contact Info) Description 05/29/2019 Transcribed Document [facility] [place] [address] [place] [address] ProviderMelanie MD [address] [place] [address] Social History Tobacco Use Types Packs/Day Years Used Date Smoking Tobacco: Never Assessed Sex and Gender Information Value Date Recorded Sex Assigned at Not on file Legal Sex Male 4:07 PM CDT Gender Identity Not on file Sexual Orientation Not on file documented as of this encounter Miscellaneous Notes * Cerner Conversion Note - Melanie ProviderMD - 05/29/2019 12:07 AM TESTER EQUIPMENT Provider Notification Entered On: 05/29/2019 2:08 EST Performed On: 05/29/2019 0:07 EST by Jenna Vargas Lpn Provider Notification Provider Notified of Concerns/Results : Other: ANNA with home CPAP Provider Notified Name : FRANCOIS WISE DO Provider Notified Time : 05/29/2019 0:00 EST Jenna Vargas Lpn - 05/29/2019 2:08 EST Electronically signed by Angel [facility] Conversion Global Expansion Sales Director Cerner at 09/05/2022 2:16 PM CDT documented in this encounter Plan of Treatment Not on file documented as of this encounter Visit Diagnoses Not on filedocumented in this encounter
--- OUTSIDE RECORDS SUMMARY | 2025-03-22 16:40 | XMS_ITS | Encounter Summary ---
Author Organization [employer] ([place], [place], [place], [place], [place]) Address [address] [place] [address] Care Team Providers Care Singing Messenger Name Role Phone Unavailable Primary Care Provider Unavailabl e Encounter Details Date Type Department Care Team (Late st Contact Info) Description 05/28/2019 Transcribed Document [facility] [place] [facility] [place] [address] ProviderMelanie MD [facility] [place] [address] Social History Tobacco Use Types Packs/Day Years Used Date Smoking Tobacco: Never Assessed Sex and Gender Information Value Date Recorded Sex Assigned at Not on file Legal Sex Male 4:07 PM CDT Gender Identity Not on file Sexual Orientation Not on file documented as of this encounter Miscellaneous Notes * Cerner Conversion Note - Melanie ProviderMD - 05/28/2019 8:25 PM GENOMICS SCIENTIST Patient: TERRI MOREL Age: 59 years Sex: [...] Patient reports he has been taking his [place] Percocet and morphine at home with no [...] in chart. Surgical history: Right total orchiectomy (9612530343). Repair of right inguinal hernia (4463120338). Hydrocele (5372969798). CABG (Coronary artery bypass grafting) planned (4092344357)., Reviewed as documented in chart. Family history: [...] EST Height Source Stated Height Entry Format [place] Height/Length, BURKINAN (ft) 5 ft Height/Length BURKINAN 4 Inch CLINICALHEIGHT 162.56 cm [place] Body Weight 58.3 kg Weight Source, ED Critical estimated dosing weight Weight Entry Format [place] Weight Irish lb 225 lb CLINICALWEIGHT 102.27 kg Body [...] ED Adult Triage: ED Clinical Reconciliation: ED clinical office technician: Lactic Acid Level with Reflex if Indicated: [...] % 35.3 % Lymph # 2.93 x10(3)/uL Grant % 6.3 % Grant # 0.52 K/uL Eos % 2.3 % Eos # 0.19 x10(3)/uL Baso % 0.6 % Baso # 0.05 x10(3)/uL Slide Review No IG# 0.04 x10(3)/uL IG% 0.50 % Urine Type. U CleanCatch Urine Color Yellow Urine Appearance Clear Urine Specific [place] >1.030 HI Urine pH Dipstick 6.0 Urine [...]
--- OUTSIDE RECORDS SUMMARY | 2025-03-22 16:40 | XMS_ITS | Clinical Summary ---
Author Organization [facility] Address [address] [place] [address] Phone Care Team Providers Care Professional Caster Name Role Phone Renzo BEARD, Chuck Schaffer [ ] Conditions or Problems Problem Name Problem Code Onset Date Status Entry Date Provider Comment Standard Description Annotate Orchitis 008138377 (SNOMED CT) 06/03 Active 06/03 Renata Mello Orchitis Coronary artery disease, S/P CABG 70938407 (SNOMED CT) 06/03 Active 06/03 Renata Mello Coronary arteriosclerosis Skin tissue necrosis 77316245 (SNOMED CT) 06/03 Active 06/03 Renata Mello Skin necrosis DM Type II E11.9 (ICD-10-CM) 06/03 Active 06/03 Renata Mello Type 2 diabetes mellitus without complications Abscess/Cell ulitis, scrotal 77723230 (SNOMED CT) 06/03 Active 06/03 Renata Mello Abscess of scrotum Nicotine dependence, cigarettes 179393840 (SNOMED CT) 06/03 Active 06/03 Renata Mello Tobacco user Medications Medication Instructions Start Date Stop Date Generic Name [facility] Provider ZOFRAN 4 MG ORAL TABLET 1 tablet every 8 hours as needed ONDANSETRON HCL 92813569651 Huan Shah MS CONTIN 15 MG CR-TABS 1 tablet twice daily MORPHINE SULFATE 58514589019 Huan Shah JANUMET 50-1000 MG TABS 1 tablet twice daily SITAGLIPTIN-METFO RMIN HCL 45533049512 Huan Shah DESIPRAMINE HCL 25 MG TABS 1 tablet nightly DESIPRAMINE HCL 57898358290 [facility] COREG 25 MG TABS 1 tablet twice daily CARVEDILOL 64795367818 [facility] OMEPRAZOLE 40 MG CPDR 1 capsule daily OMEPRAZOLE 34525428715 [facility] ALTOPREV 40 MG KN03I-TTG 1 tablet daily LOVASTATIN 19146939092 [facility] LISINOPRIL-HYDROCH LOROTHIAZIDE 10-12.5 MG TABS 1 tablet twice daily LISINOPRIL-HYDROC HLOROTHIAZIDE 00574662596 [facility] FARXIGA 10 MG TABS 1 tablet daily DAPAGLIFLOZIN PROPANEDIOL 16764164447 [facility] CYCLOBENZAPRINE HCL 10 MG TABS 1 tablet 3 times daily as needed for spasms CYCLOBENZAPRINE HCL 96789322295 [facility] ADULT ASPIRIN REGIMEN 81 MG ORAL TABLET DELAYED RELEASE 1 tablet daily ASPIRIN 14293851896 [facility] PERCOCET 10-325 MG TABS 1 tablet every 4 hours as needed OXYCODONE-ACETAMI NOPHEN 08246523300 [facility] ADALAT CC 90 MG ORAL TABLET EXTENDED RELEASE 24 HOUR 1 tablet daily NIFEDIPINE 82797496613 [facility] CYMBALTA 60 MG ORAL CAPSULE DELAYED RELEASE PARTICLES 1 capsule daily DULOXETINE HCL 99033772512 [facility] ACIDOPHILUS 100 MG CAPS 1 capsule twice daily LACTOBACILLUS 20143243909 [facility] AVIDOXY 100 MG TABS 1 tablet twice daily DOXYCYCLINE MONOHYDRATE 33230485821 [facility] AMOXICILLIN-POT CLAVULANATE 875-125 MG TABS 1 tablet twice daily AMOXICILLIN-POT CLAVULANATE 55523280985 [facility] Medications Administered No information available. Allergies, Adverse [...]
--- OUTSIDE RECORDS SUMMARY | 2025-03-22 16:40 | XMS_ITS | Encounter Summary ---
Author Organization [employer] ([place], [place], [place], [place], [place]) Address [address] [place] [address] Care Team Providers Care China Decorator Name Role Phone Unavailable Primary Care Provider Unavailabl e Encounter Details Date Type Department Care Team (Late st Contact Info) Description 05/28/2019 Transcribed Document [facility] [place] Family Medicine [address] [place] [address] ProviderMelanie MD [address] [place] [address] Social History Tobacco Use Types Packs/Day Years Used Date Smoking Tobacco: Never Assessed Sex and Gender Information Value Date Recorded Sex Assigned at Not on file Legal Sex Male 4:07 PM CDT Gender Identity Not on file Sexual Orientation Not on file documented as of this encounter Miscellaneous Notes * Cerner Conversion Note - Melanie ProviderMD - 05/28/2019 6:12 PM CHURCH WARDEN ED Assessment Entered On: 05/28/2019 18:55 EST [...] Communication Barrier : None Primary Language : Emirati Any Spiritual/Cultural Needs or Requests : No [...] Cardiovascular ASMT, ED Cardiovascular Assessment WDL : [facility] SHAUNNA WEST RN - 05/28/2019 18:51 EST Respiratory Respiratory Assessment WDL : [facility] SHAUNNA WEST RN - 05/28/2019 18:51 EST Genitourinary Assessment, ED Genitourinary Assessment WDL : [facility] with exceptions (Comment: pt c/o non-healing wound to scrotum, redness, swelling and discharge. Packing removed. Pain 8/10. Denies difficulty urinating. [SHAUNNA WEST RN - 05/28/2019 18:51 EST] ) SHAUNNA WEST RN - 05/28/2019 18:51 EST Genital Anatomy Power Grid Genital Anatomy : Scrotum (Comment: open wound to scrotum. Packing removed per pt request, draining blood and white-yellow discharge. [SHAUNNA WEST RN - 05/28/2019 18:51 EST] ) SHAUNNA WEST RN - 05/28/2019 18:51 EST Neurologic ASMT, ED Neurologic Assessment WDL : [facility] [place] Coma Scale Link : Open [facility] SHAUNNA WEST RN - 05/28/2019 18:51 EST Felipa Coma [place] Best Motor Response : Obey commands [place] Best Verbal Response : Oriented [place] Eye Opening Response : Spontaneous [place] Coma Score : 15 SHAUNNA WEST RN - 05/28/2019 18:51 EST documented in this encounter Plan of Treatment Not on file documented as of this encounter Visit Diagnoses Not on filedocumented in this encounter
--- OUTSIDE RECORDS SUMMARY | 2025-03-22 16:40 | XMS_ITS | Encounter Summary ---
Author Organization [facility] Address [address] [place] [address] Care Team Providers Care Inside Outside Sales Representative Name Role Phone Anita Dumas Primary Care Provider [phone] Encounter Details Date Type Department Care Team ([facility] st Contact Info) Description 03/28/2024 Orders Only External Location [address] [place] [address] Provider, External Social History Tobacco Use Types [...] documented as of this encounter Care Teams Inside Outside Sales Representative Relationship Specialty Start Date End Date Anita Dumas PA [address] [place] [address] PCP - General 08/06/22 documented as of this encounter
--- OUTSIDE RECORDS SUMMARY | 2025-03-22 16:40 | XMS_ITS | Encounter Summary ---
Author Organization [employer] ([place], [place], [place], [place], [place]) Address [address] [place] [address] Care Team Providers Care Epic Professional Name Role Phone Unavailable Primary Care Provider Unavailabl e Encounter Details Date Type Department Care Team (Late st Contact Info) Description 04/08/2019 Transcribed Document [facility] [facility] [place] [address] [place] [address] ProviderMelanie MD [address] [place] [address] Social History Tobacco Use Types Packs/Day Years Used Date Smoking Tobacco: Never Assessed Sex and Gender Information Value Date Recorded Sex Assigned at Not on file Legal Sex Male 4:07 PM CDT Gender Identity Not on file Sexual Orientation Not on file documented as of this encounter Miscellaneous Notes * Cerner Conversion Note - Historical ProviderMD - 04/08/2019 2:47 PM ICE GRINDER documented in this encounter Plan of Treatment Not on file documented as of this encounter Visit Diagnoses Not on filedocumented in this encounter
--- OUTSIDE RECORDS SUMMARY | 2025-03-22 16:40 | XMS_ITS | Encounter Summary ---
Author Organization [employer] ([place], [place], [place], [place], [place]) Address [address] [place] [address] Care Team Providers Care Truck Body Repairer Name Role Phone Unavailable Primary Care Provider Unavailabl e Encounter Details Date Type Department Care Team (Late st Contact Info) Description 05/29/2019 Transcribed Document [facility] [place] [address] [place] [address] ProviderMelanie MD [address] [place] [address] Social History Tobacco Use Types Packs/Day Years Used Date Smoking Tobacco: Never Assessed Sex and Gender Information Value Date Recorded Sex Assigned at Not on file Legal Sex Male 4:07 PM CDT Gender Identity Not on file Sexual Orientation Not on file documented as of this encounter Miscellaneous Notes * Cerner Conversion Note - Historical ProviderMD - 05/29/2019 5:00 PM INDUSTRIAL TECHNOLOGY EDUCATION TEACHER Chart Check - Review Order Profile Entered On: 05/29/2019 16:57 EST Performed On: 05/29/2019 17:00 EST by JANN JOSEPH RN Chart Check Powerplans Initiated/Discontinued as Appropriate : Yes All Active Orders Reviewed : Yes JANN JOSEPH RN - 05/29/2019 16:57 EST Electronically signed by Angel [facility] Conversion Bridge Repair Crew Person Cerner at 09/05/2022 2:06 PM CDT documented in this encounter Plan of Treatment Not on file documented as of this encounter Visit Diagnoses Not on filedocumented in this encounter
--- OUTSIDE RECORDS SUMMARY | 2025-03-22 16:40 | XMS_ITS | Encounter Summary ---
Author Organization [employer] ([place], [place], [place], [place], [place]) Address [address] [place] [address] Care Team Providers Care Emergency Medical Service Manager Name Role Phone Unavailable Primary Care Provider Unavailabl e Encounter Details Date Type Department Care Team (Late st Contact Info) Description 05/29/2019 Transcribed Document [facility] [place] [address] [place] [address] ProviderMelanie MD [address] [place] [address] Social History Tobacco Use Types Packs/Day Years Used Date Smoking Tobacco: Never Assessed Sex and Gender Information Value Date Recorded Sex Assigned at Not on file Legal Sex Male 4:07 PM CDT Gender Identity Not on file Sexual Orientation Not on file documented as of this encounter Miscellaneous Notes * Cerner Conversion Note - Historical ProviderMD - 05/29/2019 12:00 PM BICYCLE SUBASSEMBLER UM Authorization Entered On: 05/29/2019 12:00 EST Performed On: 05/29/2019 12:00 EST by ZULY PIERRE Rn-Utilization Review Primary Insurance Authorization Authorization and Policy Numbers : Insurance 1 Health Plan: MEDICARE Policy Number: [id number] Authorization Number: Insurance Primary Name : MEDICARE Policy Number: [id number] Historical Authorization Comments-Primary : No Authorization Comments Found ZULY PIERRE Rn-Utilization Review - 05/29/2019 12:00 EST documented in this encounter Plan of Treatment Not on file documented as of this encounter Visit Diagnoses Not on filedocumented in this encounter
--- OUTSIDE RECORDS SUMMARY | 2025-03-22 16:40 | XMS_ITS | Encounter Summary ---
Author Organization [employer] ([place], [place], [place], [place], [place]) Address [address] [place] [address] Care Team Providers Care Rn Clinical Name Role Phone Unavailable Primary Care Provider Unavailabl e Encounter Details Date Type Department Care Team (Late st Contact Info) Description 05/28/2019 Transcribed Document [facility] [place] Family Medicine [address] [place] [address] ProviderMelanie MD [address] [place] [address] Social History Tobacco Use Types Packs/Day Years Used Date Smoking Tobacco: Never Assessed Sex and Gender Information Value Date Recorded Sex Assigned at Not on file Legal Sex Male 4:07 PM CDT Gender Identity Not on file Sexual Orientation Not on file documented as of this encounter Miscellaneous Notes * Cerner Conversion Note - Historical ProviderMD - 05/28/2019 8:37 PM URGENT CARE PHYSICIAN Pain Assessment Entered On: 05/29/2019 23:38 EST [...]
--- OUTSIDE RECORDS SUMMARY | 2025-03-22 16:40 | XMS_ITS | Encounter Summary ---
Author Organization [employer] ([place], [place], [place], [place], [place]) Address [address] [place] [address] Care Team Providers Care Grocery Checker Name Role Phone Unavailable Primary Care Provider Unavailabl e Encounter Details Date Type Department Care Team (Late st Contact Info) Description 05/31/2019 Transcribed Document [facility] [place] Family Medicine [address] [place] [address] ProviderMelanie MD [address] [place] [address] Social History Tobacco Use Types Packs/Day Years Used Date Smoking Tobacco: Never Assessed Sex and Gender Information Value Date Recorded Sex Assigned at Not on file Legal Sex Male 4:07 PM CDT Gender Identity Not on file Sexual Orientation Not on file documented as of this encounter Miscellaneous Notes * Cerner Conversion Note - Historical ProviderMD - 05/31/2019 2:00 AM MOTEL MANAGER Interlocking And Signal Mechanic Details Entered On: 05/31/2019 8:04 EST Performed [...] 05/31/2019 8:04 EST Electronically signed by [facility] Conversion Motorboat Mechanic Cerner at 09/05/2022 2:06 PM CDT documented in this encounter Plan of Treatment Not on file documented as of this encounter Visit Diagnoses Not on filedocumented in this encounter
--- OUTSIDE RECORDS SUMMARY | 2025-03-22 16:40 | XMS_ITS | Encounter Summary ---
Author Organization [employer] ([place], [place], [place], [place], [place]) Address [address] [place] [address] Care Team Providers Care Sales Development Consultant Name Role Phone Unavailable Primary Care Provider Unavailabl e Encounter Details Date Type Department Care Team (Late st Contact Info) Description 05/29/2019 Transcribed Document [facility] [place] [address] [place] [address] ProviderMelanie MD [address] [place] [address] Social History Tobacco Use Types Packs/Day Years Used Date Smoking Tobacco: Never Assessed Sex and Gender Information Value Date Recorded Sex Assigned at Not on file Legal Sex Male 4:07 PM CDT Gender Identity Not on file Sexual Orientation Not on file documented as of this encounter Miscellaneous Notes * Cerner Conversion Note - Historical ProviderMD - 05/29/2019 11:15 AM OUTBOARD MOTOR TESTER [facility] Main OR IntraOp Summary Primary Physician: JC LUQUE MD-SHANTEL Finalized Date/Time: 05/31/19 10:17:06 Pt. Name: CRISTOBAL MORELO.B./Sex: 1960 Male Med Rec #: [id number] Physician: FRANCOIS WISE DO Financial #: [id number] Pt. Type: I Room/Bed: [facility]/ Admit/Disch: 05/28/19 20:28:00 - Institution: [facility] IntraOp Case Attendance Entry 1 Entry 2 Entry 3 Case Attendee JC LUQUE BOWEN, JON B, MD-ANS OTHER, ATTENDEE -URO Role Performed Surgeon/Proceduralist, Anesthesiologist Resident First Time In 05/29/19 11:00:00 05/29/19 11:00:00 05/29/19 11:00:00 Time Out 05/29/19 12:38:00 05/29/19 12:38:00 05/29/19 12:38:00 Procedure Scrotal Exploration Scrotal Exploration Scrotal Exploration Other Attendee ADOLFO ARRIETA URO Superficial Wound Closed By: David Modified By: Mikel Irvin RN Pantano, Scott, RN Pantano, Scott, RN 05/29/19 12:40:12 05/29/19 12:40:12 05/29/19 11:27:29 Entry 4 Entry 5 Case Attendee Mikel Irvin, CT HASSAN Role Performed Advertising Director, First Scrub, First Time In 05/29/19 11:00:00 05/29/19 11:00:00 Time Out 05/29/19 12:38:00 05/29/19 12:38:00 Procedure Scrotal Exploration Scrotal Exploration Other Attendee Superficial Wound Closed By: Last Modified By: Mikel Irvin RN Pantano, Scott, RN 05/29/19 12:40:12 05/29/19 12:40:12 [facility] IntraOp Case Attendance Audit 05/29/19 12:40:12 Spool Cleaner Hand: GISSELLE Modifier: PANTANOS 1 <+> Time Out 1 <*> Procedure Scrotal Exploration 2 <+> Time Out 2 <*> Procedure Scrotal Exploration 3 <+> Time Out 3 <*> Procedure Scrotal Exploration 4 <+> Time Out 4 <*> Procedure Scrotal Exploration 5 <+> Time Out 5 <*> Procedure Scrotal Exploration 05/29/19 11:31:44 Spool Cleaner Hand: BRENTANOS Modifier: PANTANOS <+> 1 Procedure 2 <*> Procedure Scrotal Exploration 3 <*> Procedure Scrotal Exploration 4 <*> Procedure Scrotal Exploration 5 <*> Procedure Scrotal Exploration 05/29/19 11:30:54 Spool Cleaner Hand: BRENTANOS Modifier: PANTANOS 2 <+> Time In 2 <*> Procedure Scrotal Exploration 3 <+> Time In 3 <*> Procedure Scrotal Exploration 4 <+> Time In 4 <*> Procedure Scrotal Exploration 5 <+> Time In 5 <*> Procedure Scrotal Exploration [facility] IntraOp Case Times Entry 1 Patient In Room Time 05/29/19 11:00:00 Out Room Time 05/29/19 12:38:00 Anesthesia Start Time 05/29/19 11:00:00 Stop Time 05/29/19 12:38:00 Surgery / Procedure Times Start Time 05/29/19 11:15:00 Stop Time 05/29/19 12:38:00 Last Modified By: Mikel Irvin RN 05/29/19 12:39:19 [facility] IntraOp Case Times Audit 05/29/19 12:39:19 Spool Cleaner Hand: BRENTARNULFO Modifier: ENIDNorris <+> 1 Out Room Time <+> 1 Stop Time <+> 1 Stop Time [facility] IntraOp Cautery Entry 1 ESU Identification Cautery Type Monopolar ESU ID Number [id number] ID Type Hospital Number Cautery Settings Cut Setting 30 Coag Setting 30 ESU Grounding Pad Ground Pad Type Adult Grounding Pad Site Right thigh Grounding Pad Mikel Irvin RN Applied By Grounding Pad Site Dry, Intact, Warm Skin Condition Before Cautery Grounding Pad Site Unchanged Skin Condition After Cautery Last Modified By: Mikel Irvin RN 05/29/19 11:27:43 [facility] IntraOp Communication Entry 1 Communication To Family/Significant other Communication By Mikel Irvin RN Date and Time 05/29/19 11:27:00 Last Modified By: Mikel Irvin RN 05/29/19 11:27:52 [facility] IntraOp Counts Verification Entry 1 Procedure Scrotal Exploration Count Info Count Type Sponge, Sharps, Miscellaneous Counts Verification Baseline/pre-procedure Sequence Count Results Correct, surgeon notified Counts Performed By Count Performed By CT JENKINS (Scrub) Count Performed By Mikel Irvin RN (RN) Last Modified By: Mikel Irvin RN 05/29/19 11:28:08 [facility] IntraOp Counts Final Entry 1 Procedure Scrotal Exploration Final Count Info Count Type Sponge, Sharps, Miscellaneous Counts Verification Skin Closure/end of Sequence procedure Count Results Correct, surgeon notified Counts Performed By Count Performed By CT JENKINS (Scrub) Count Performed By Mikel Irvin RN (RN) Last Modified By: Mikel Irvin RN 05/29/19 11:28:23 [facility] IntraOp Cultures and Spec Summary Entry 1 Cultrures and Specimens Specimen Ordered: Yes Test(s) Blood/Laboratory Requested/Final Disposition Last Modified By: Mikel Irvin RN 05/29/19 11:28:29 [facility] IntraOp Departure from OR Entry 1 Integumentary Assessment Integumentary WDL Assessment WDL Transfer/Handoff Transfer to PACU Phase I Handoff Method Bedside/Face to face, Online nursing summary Post-op Transport Stretcher/Gurney Via Patient Transport MELISSA JIMENEZ MD-ANS, Accompanied by OTHER, ATTENDEE Last Modified By: Mikel Irvin RN 05/29/19 11:28:47 [facility] IntraOp Dressing and Packing Entry 1 Type Packing Wound Dressing Item Kerlix/Leonides Applied By OTHER, ATTENDEE Last Modified By: Mikel Irvin RN 05/29/19 11:29:48 [facility] IntraOp Dressing and Packing Audit 05/29/19 12:38:38 Spool Cleaner Hand: GISSELLE Modifier: GISSELLE 1 <*> Wound Dressing Item 4x4's [facility] IntraOp Fire Risk Assessment Entry 1 [...] By: Mikel Irvin RN 05/29/19 11:28:55 [facility] IntraOp General Case Steam Drier Tender 1 Case Information OR OR 03 [facility] Case Level 1 Room Verified Yes Wound Class II - Clean-Contaminated Specialty SN Urology Anesthesia Type General ASA Class 3 Diagnosis Preop Diagnosis ABSCESS SCROTUM Postop Same As Preop Yes Postop Diagnosis ABSCESS SCROTUM Last Modified By: Mikel Irvin RN 05/29/19 11:29:56 [facility] IntraOp General Case Data Audit 05/29/19 11:29:56 Spool Cleaner Hand: GISSELLE Modifier: GISSELLE <+> 1 ASA Class [facility] IntraOp Intraoperative Assessment Entry 1 Handoff [...] By: Mikel Irvin RN 05/29/19 11:30:07 [facility] IntraOp Intraoperative Equipment Entry 1 Type Monitoring Equipment Intraop Monitoring Electrocardiogram Three lead placement (ECG) Electrode Placement Blood Pressure Non-Invasive BP Device Source Blood Pressure Arm, right upper Location Pulse Oximeter Hand, left Probe Site Antiembolic Devices Antiembolic Devices Sequential compression device, knee high Antiembolic Device Bilateral Location Scopes Photo/Video Documentation Last Modified By: Mikel Irvin RN 05/29/19 11:30:33 [facility] IntraOp Medication Admin Entry 1 Entry 2 Medication/Irrigant Marcaine 0.25% 30ml Bacitracin 50,00units vial - [id number] powder vial Combo Med List Time Administered Route of LOCAL IN IRRIGATION Administration Dose Dose 15 Unit of Measure ml ml Volume Administered By OTHER, ATTENDEE OTHER, ATTENDEE Procedure Irrigation Irrigant Volume In Irrigant Volume Out Last Modified By: Mikel Irvin RN Pantano, Scott, RN 05/29/19 11:33:55 05/29/19 11:33:55 [facility] IntraOp Patient Positioning Entry 1 Procedure [...] By: Mikel Irvin RN 05/29/19 11:31:42 [facility] IntraOp Sign In Entry 1 Patient, [...] By: Mikel Irvin RN 05/29/19 11:30:51 [facility] IntraOp Sign Out Entry 1 RN [...] By: Mikel Irvin RN 05/29/19 12:24:30 [facility] IntraOp Sign Out Audit 05/29/19 12:40:05 Spool Cleaner Hand: GISSELLE Modifier: ENIDS <+> 1 RN Sign Out Signature Date/Time [facility] IntraOp Skin Prep Entry 1 Procedure Scrotal Exploration Prescribed N/A Pre-Surgical Prep Completed Prep Area GENITALIA Intraop Prep Integumentary WDL Assessment WDL Prep Agents Betadine scrub, Betadine solution Prep by Mikel Irvin RN Hair Removal Methods No hair removal performed Last Modified By: Mikel Irvin RN 05/29/19 11:29:33 [facility] IntraOp Surgical Procedures Entry 1 Procedure Scrotal Exploration Primary Procedure Yes Primary Surgeon JC LUQUE MD-URO Start 05/29/19 11:15:00 Stop 05/29/19 12:38:00 Anesthesia Type General Specialty SN Urology Wound Class II - Clean-Contaminated Last Modified By: Mikel Irvin RN 05/29/19 11:31:44 [facility] IntraOp Surgical Procedures Audit 05/29/19 12:39:57 Spool Cleaner Hand: GISSELLE Modifier: GISSELLE <+> 1 Stop [facility] IntraOp Temp Regulation Devices Entry 1 Temp Regulation Temperature Warm blankets, Forced Regulation Device Air Warming device Temperature Upper body Regulation Site Temperature MELISSA JIMENEZ MD-ANS Regulation Device Applied by Temperature monitored per Regulation Comment anesthesia, fariha hugger available Last Modified By: Mikel Irvin RN 05/29/19 11:30:40 [facility] IntraOP Time Out Entry 1 Procedure [...] By: Mikel Irvin RN 05/29/19 11:31:23 [facility] IntraOP Time Out Audit 05/29/19 11:31:23 Spool Cleaner Hand: BRENTARNULFO Modifier: GISSELLE 1 <+> Beta Asad Administered [...]
--- OUTSIDE RECORDS SUMMARY | 2025-03-22 16:40 | XMS_ITS | Encounter Summary ---
Author Organization [facility] Address [address] [place] [address] Care Team Providers Care Java Technical Manager Name Role Phone Anita Dumas Primary Care Provider [phone] Encounter Details Date Type Department Care Team ([facility] st Contact Info) Description 05/30/2024 Orders Only External Location [address] [place] [address] Provider, External Social History Tobacco Use Types [...] documented as of this encounter Care Teams Java Technical Manager Relationship Specialty Start Date End Date Anita Dumas PA [address] [place] [address] PCP - General 08/06/22 documented as of this encounter
--- OUTSIDE RECORDS SUMMARY | 2025-03-22 16:40 | XMS_ITS | Encounter Summary ---
Author Organization [employer] ([place], [place], [place], [place], [place]) Address [address] [place] [address] Care Team Providers Care Computer Systems Auditor Name Role Phone Unavailable Primary Care Provider Unavailabl e Encounter Details Date Type Department Care Team (Late st Contact Info) Description 04/08/2019 Transcribed Document [facility] [place] Family Medicine [address] [place] [address] ProviderMelanie MD [address] [place] [address] Social History Tobacco Use Types Packs/Day Years Used Date Smoking Tobacco: Never Assessed Sex and Gender Information Value Date Recorded Sex Assigned at Not on file Legal Sex Male 4:07 PM CDT Gender Identity Not on file Sexual Orientation Not on file documented as of this encounter Miscellaneous Notes * Cerner Conversion Note - Melanie ProviderMD - 04/08/2019 10:42 AM BLUE LEATHER SORTER ED Triage Entered On: 04/08/2019 10:52 EST [...] : 3 - Urgent Tracking Group : [facility] ED KEN REBOLLEDO - [...] Onset Date: Unspecified ; Created By: CONTRIBUTOR_SYSTEM, HIST_HelloNature; Reaction Status: Active ; Category: Drug ; Substance: No Known Allergies ; Type: Allergy ; Updated By: CONTRIBUTOR_SYSTEM, HIST_CERNER; Reviewed Date: 04/08/2019 10:51 EST Diagnosis Control ED (As Of: 04/08/2019 10:52:11 EST) Diagnoses(Active) Post surgery problem Date: 04/08/2019 ; Diagnosis Type: Reason For Visit ; Confirmation: Complaint of ; Clinical Dx: Post surgery problem ; Classification: Medical ; Clinical Service: Emergency medicine ; Code: PNED ; Probability: 0 ; Diagnosis Code: [id number] ED Height and Weight Height Source : Stated Height Entry Format : Perkins Height, Feet : 5 ft(Converted to: 152 cm, 60 Inch) Height, Inches : 11 Inch(Converted to: 0 ft 11 Inch, 27.94 cm) Clinical Height : 180.34 cm Weight Source, ED : Critical estimated dosing weight Weight Entry Format : [place] Weight, Pounds : 230 lb Clinical Dosing Weight : 104.55 kg Body Surface Area (BSA) : 2.24 m2 Body Mass Index : 32.1 kg/m2 (HI) [place] Body Weight (IBW) : 74.31 kg KEN REBOLLEDO Samy - 04/08/2019 10:49 EST documented in this encounter Plan of Treatment Not on file documented as of this encounter Visit Diagnoses Not on filedocumented in this encounter
--- OUTSIDE RECORDS SUMMARY | 2025-03-22 16:40 | XMS_ITS | Encounter Summary ---
Author Organization [employer] ([place], [place], [place], [place], [place]) Address [address] [place] [address] Care Team Providers Care Press Tender Short Goods Name Role Phone Unavailable Primary Care Provider Unavailabl e Encounter Details Date Type Department Care Team (Late st Contact Info) Description 05/31/2019 Transcribed Document [facility] [place] Family Medicine [address] [place] [address] ProviderMelanie MD [address] [place] [address] Social History Tobacco Use Types Packs/Day Years Used Date Smoking Tobacco: Never Assessed Sex and Gender Information Value Date Recorded Sex Assigned at Not on file Legal Sex Male 4:07 PM CDT Gender Identity Not on file Sexual Orientation Not on file documented as of this encounter Miscellaneous Notes * Cerner Conversion Note - Melanie ProviderMD - 05/31/2019 11:19 PM SEARCH CONSULTANT Patient: TERRI VARGAS Age: 59 Years Sex: [...] still not adequate - will increase dilaudid BATTERY TESTER AND REPAIRER and allow oral oxcodone as needed. 2. [...] Oral, At Bedtime Dilaudid 6 mg/30 ml BATTERY TESTER AND REPAIRER 6 mg, 6 mg= 30 mL, IntraVENous [...] No 05/31/2019 07:07 EST Electronically signed by [facility], [facility] Conversion Seed Sorter Cerner at 09/05/2022 2:15 PM CDT documented in this encounter Plan of Treatment Not on file documented as of this encounter Visit Diagnoses Not on filedocumented in this encounter
--- OUTSIDE RECORDS SUMMARY | 2025-03-22 16:40 | XMS_ITS | Encounter Summary ---
Author Organization [employer] ([place], [place], [place], [place], [place]) Address [address] [place] [address] Care Team Providers Care Roller Painter Name Role Phone Unavailable Primary Care Provider Unavailabl e Encounter Details Date Type Department Care Team (Late st Contact Info) Description 05/29/2019 Transcribed Document [facility] [place] [address] [place] [address] ProviderMelanie MD [address] [place], [place] [id number] Social History Tobacco Use Types Packs/Day Years Used Date Smoking Tobacco: Never Assessed Sex and Gender Information Value Date Recorded Sex Assigned at Not on file Legal Sex Male 4:07 PM CDT Gender Identity Not on file Sexual Orientation Not on file documented as of this encounter Miscellaneous Notes * Cerner Conversion Note - Melanie ProviderMD - 05/29/2019 8:00 AM MOLDER VACUUM Consult Phone Call Documentation Entered On: 05/29/2019 [...] MD-URO SARAH BARILLAS - 05/29/2019 7:48 EST documented in this encounter Plan of Treatment Not on file documented as of this encounter Visit Diagnoses Not on filedocumented in this encounter
--- OUTSIDE RECORDS SUMMARY | 2025-03-22 16:40 | XMS_ITS | Encounter Summary ---
Author Organization [email or web address] ([place], [place], [place], [place], [place]) Address [address] [place] [address] Care Team Providers Care Net Wpf Developer Name Role Phone Unavailable Primary Care Provider Unavailabl e Encounter Details Date Type Department Care Team (Late st Contact Info) Description 05/30/2019 Transcribed Document [facility] [place] Family Medicine [address] [place] [address] ProviderMelanie MD [address] [place] [address] Social History Tobacco Use Types Packs/Day Years Used Date Smoking Tobacco: Never Assessed Sex and Gender Information Value Date Recorded Sex Assigned at Not on file Legal Sex Male 4:07 PM CDT Gender Identity Not on file Sexual Orientation Not on file documented as of this encounter Miscellaneous Notes * Cerner Conversion Note - Melanie ProviderMD - 05/30/2019 1:59 AM SENIOR ONLINE MARKETING MANAGER Pain Assessment Entered On: 05/30/2019 5:08 EST [...]
--- OUTSIDE RECORDS SUMMARY | 2025-03-22 16:40 | XMS_ITS | Encounter Summary ---
Author Organization [employer] ([place], [place], [place], [place], [place]) Address [address] [place] [address] Care Team Providers Care Anode Worker Name Role Phone Unavailable Primary Care Provider Unavailabl e Encounter Details Date Type Department Care Team (Late st Contact Info) Description 05/29/[address] [facility] [place] Family Medicine [address] [place] [address] ProviderMelanie MD [address], [place] [id number] Social History Tobacco Use Types Packs/Day Years Used Date Smoking Tobacco: Never Assessed Sex and Gender Information Value Date Recorded Sex Assigned at Not on file Legal Sex Male 4:07 PM CDT Gender Identity Not on file Sexual Orientation Not on file documented as of this encounter Miscellaneous Notes * Cerner Conversion Note - Melanie Grider MD - 05/29/2019 2:02 PM CORE DRILLER Patient: TERRI MOREL Age: 59 years Sex: [...] the wound and he has been taking [place] Percocet and morphine at home with no [...] 250 m - 1,500 mg, IV Piggyback, [id number], infuse over 60 Minute(s), Routine Immunology influenza virus vaccine, inactivated - 0.5 mL, IntraMuscular, Inj, [id number] Cardiovascular carvedilol - 25 mg, Oral, Tab, [...] sliding scale) - Scale D, SubCutaneous, Inj, Q6, Routine Past Medical History: Active Problems (1) [...] process/pending Rad: Radiology Results (Last 48 hours) [id number] -- 05/28/2019 20:28 CR Chest 1 Vw [...] Dr. Chuck OROPEZA DC Electronically signed by [facility], [facility] Conversion Electric Installer Cerner at 09/05/2022 2:16 PM CDT documented in this encounter Plan of Treatment Not on file documented as of this encounter Visit Diagnoses Not on filedocumented in this encounter
--- OUTSIDE RECORDS SUMMARY | 2025-03-22 16:40 | XMS_ITS | Encounter Summary ---
Author Organization [employer] ([place], [place], [place], [place], [place]) Address [address] [place] [address] Care Team Providers Care Regional Director Of Admissions Name Role Phone Unavailable Primary Care Provider Unavailabl e Encounter Details Date Type Department Care Team (Late st Contact Info) Description 05/31/2019 Transcribed Document [facility] [place] [address] [place] [address] ProviderMelanie MD [address], [place] [id number] Social History Tobacco Use Types Packs/Day Years Used Date Smoking Tobacco: Never Assessed Sex and Gender Information Value Date Recorded Sex Assigned at Not on file Legal Sex Male 4:07 PM CDT Gender Identity Not on file Sexual Orientation Not on file documented as of this encounter Miscellaneous Notes * Cerner Conversion Note - Melanie Grider MD - 05/31/2019 4:40 PM BRAND SALES MANAGER Patient: TERRI MOREL Age: 59 years [...] the wound and he has been taking [place] Percocet and morphine at home with no [...] Last Charted Minimum Maximum Temp 97.5 (MAY 31:38) 97.5 (MAY 31:) 98.1 (MAY 30 18:) Apical HR 72 (MAY 31:22) 72 (MAY 31:22) 72 (MAY 31:) Mon HR 85 (MAY [...] and other serious sequela Electronically signed by [facility] Conversion Field Return Repairer Cerner at 09/05/2022 2:22 PM CDT documented in this encounter Plan of Treatment Not on file documented as of this encounter Visit Diagnoses Not on filedocumented in this encounter
--- OUTSIDE RECORDS SUMMARY | 2025-03-22 16:40 | XMS_ITS | Encounter Summary ---
Author Organization [employer] ([place], [place], [place], [place], [place]) Address [address] [place] [address] Care Team Providers Care Health Services Administrator Name Role Phone Unavailable Primary Care Provider Unavailabl e Encounter Details Date Type Department Care Team (Late st Contact Info) Description 05/29/[address] [facility] [place] Family Medicine [address] [place] [address] ProviderMelanie MD [address] [place] [address] Social History Tobacco Use Types Packs/Day Years Used Date Smoking Tobacco: Never Assessed Sex and Gender Information Value Date Recorded Sex Assigned at Not on file Legal Sex Male 4:07 PM CDT Gender Identity Not on file Sexual Orientation Not on file documented as of this encounter Miscellaneous Notes * Cerner Conversion Note - Historical ProviderMD - 05/29/2019 11:21 AM COMMUNITY INTEGRATION SPECIALIST Pain Assessment Entered On: 05/29/2019 16:57 EST [...]
--- OUTSIDE RECORDS SUMMARY | 2025-03-22 16:40 | XMS_ITS | Encounter Summary ---
Author Organization [employer] ([place], [place], [place], [place], [place]) Address [address] [place] [address] Care Team Providers Care Insurance Counsel Name Role Phone Unavailable Primary Care Provider Unavailabl e Encounter Details Date Type Department Care Team (Late st Contact Info) Description 05/30/2019 Transcribed Document [facility] [place] Family Medicine [address] [place] [address] ProviderMelanie MD [address], [place] [id number] Social History Tobacco Use Types Packs/Day Years Used Date Smoking Tobacco: Never Assessed Sex and Gender Information Value Date Recorded Sex Assigned at Not on file Legal Sex Male 4:07 PM CDT Gender Identity Not on file Sexual Orientation Not on file documented as of this encounter Miscellaneous Notes * Cerner Conversion Note - Melanie Grider MD - 05/30/2019 12:42 PM ASSISTANT CUSTOMER SERVICE MANAGER Patient: TERRI MOREL Age: 59 years [...] the wound and he has been taking [place] Percocet and morphine at home with no [...] (MAY 30 03:15) Apical HR 80 (MAY 30 06:10) 72 (MAY 29 17:25) 80 (MAY 30 06:10) Mon HR 80 (MAY 30:11) 60 (MAY 29 13:36) 80 (MAY 30 06:11) Resp Rate 19 (MAY 30:) L 12 (MAY 29 12:55) 19 (MAY 29 12:50) SBP H 158 (MAY 30 06:11) 127 (MAY 29 23:24) H 183 (MAY 29 13:00) DBP H 101 (MAY 30:) 75 (MAY 29 13:05) H 158 (MAY 30:10) MAP 132 (MAY 30:) 91 (MAY 29 [...] process/pending Rad: Radiology Results (Last 48 hours) [id number] -- 05/28/2019 20:28 CR Chest 1 Vw [...]
--- OUTSIDE RECORDS SUMMARY | 2025-03-22 16:40 | XMS_ITS | Encounter Summary ---
Author Organization [employer] ([place], [place], [place], [place], [place]) Address [address] [place] [address] Care Team Providers Care Agricultural Sales Representative Name Role Phone Unavailable Primary Care Provider Unavailabl e Encounter Details Date Type Department Care Team (Late st Contact Info) Description 05/29/2019 Transcribed Document [facility] [place] [address] [place] [address] ProviderMelanie MD [address], [place] [id number] Social History Tobacco Use Types Packs/Day Years Used Date Smoking Tobacco: Never Assessed Sex and Gender Information Value Date Recorded Sex Assigned at Not on file Legal Sex Male 4:07 PM CDT Gender Identity Not on file Sexual Orientation Not on file documented as of this encounter Miscellaneous Notes * Cerner Conversion Note - Melanie Grider MD - 05/29/2019 1:38 PM CLINICAL DATA SPECIALIST DATE OF PROCEDURE: 05/29/2019 SURGEON: Claudy Pro [...] inpatient stay for antibiotics and wound care. /[id number] DICTATED BY: Nicolasa Arguello MD for Claudy Pro MD MD LOUIS Martinez/ / LOUIS / JOVANY /[id number] documented in this encounter Plan of Treatment Not on file documented as of this encounter Visit Diagnoses Not on filedocumented in this encounter
--- OUTSIDE RECORDS SUMMARY | 2025-03-22 16:40 | XMS_ITS | Encounter Summary ---
Author Organization [employer] ([place], [place], [place], [place], [place]) Address [address] [place] [address] Care Team Providers Care Manager Study Name Role Phone Unavailable Primary Care Provider Unavailabl e Encounter Details Date Type Department Care Team (Late st Contact Info) Description 05/31/2019 Transcribed Document [facility] [place] [address] [place] [address] ProviderMelanie MD [address] [place] [address] Social History Tobacco Use Types Packs/Day Years Used Date Smoking Tobacco: Never Assessed Sex and Gender Information Value Date Recorded Sex Assigned at Not on file Legal Sex Male 4:07 PM CDT Gender Identity Not on file Sexual Orientation Not on file documented as of this encounter Miscellaneous Notes * Cerner Conversion Note - Historical ProviderMD - 05/31/2019 5:00 AM PRESS BREAKER Chart Check - Review Order Profile Entered [...]
--- OUTSIDE RECORDS SUMMARY | 2025-03-22 16:40 | XMS_ITS | Encounter Summary ---
Author Organization [employer] ([place], [place], [place], [place], [place]) Address [address] [place] [address] Care Team Providers Care Deputy Fire Marshal Name Role Phone Unavailable Primary Care Provider Unavailabl e Encounter Details Date Type Department Care Team (Late st Contact Info) Description 06/01/2019 Transcribed Document [facility] [place] [address] [place] [address] ProviderMelanie MD [address] [place], [place] [id number] Social History Tobacco Use Types Packs/Day Years Used Date Smoking Tobacco: Never Assessed Sex and Gender Information Value Date Recorded Sex Assigned at Not on file Legal Sex Male 4:07 PM CDT Gender Identity Not on file Sexual Orientation Not on file documented as of this encounter Miscellaneous Notes * Cerner Conversion Note - Historical ProviderMD - 06/01/2019 4:51 PM BRAID FOLDER Nursing Discharge Summary Entered On: 06/01/2019 16:51 EST Performed On: 06/01/2019 16:51 EST by SERVANDO BARILLAS forming roll operator heavy duty Documentation Discharge Date/Time : 06/01/2019 18:00 EST [...] - 06/01/2019 16:51 EST Electronically signed by [facility] Conversion Assistant Banquet Manager Cerner at 09/05/2022 2:04 PM CDT documented in this encounter Plan of Treatment Not on file documented as of this encounter Visit Diagnoses Not on filedocumented in this encounter
--- OUTSIDE RECORDS SUMMARY | 2025-03-22 16:40 | XMS_ITS | Encounter Summary ---
Author Organization [employer] ([place], [place], [place], [place], [place]) Address [address] [place] [address] Care Team Providers Care Staff Pharmacist Hospital Name Role Phone Unavailable Primary Care Provider Unavailabl e Encounter Details Date Type Department Care Team (Late st Contact Info) Description 04/08/2019 Transcribed Document [facility] [place] [facility] [address] ProviderMelanie MD [facility] [place], [place] [id number] Social History Tobacco Use Types Packs/Day Years Used Date Smoking Tobacco: Never Assessed Sex and Gender Information Value Date Recorded Sex Assigned at Not on file Legal Sex Male 4:07 PM CDT Gender Identity Not on file Sexual Orientation Not on file documented as of this encounter Miscellaneous Notes * Cerner Conversion Note - Melanie Grider MD - 04/08/2019 11:01 AM MANAGER EXPRESS Patient: TERRI MOREL Age: 59 years Sex: [...] history Cardiovascular. Surgical history: Right total orchiectomy ([id number]). Repair of right inguinal hernia ([id number]). Hydrocele ([id number]). CABG (Coronary artery bypass grafting) planned ([id number]).. Family history: No family history items have [...] Color Yellow Urine Appearance Clear Urine Specific [place] >1.030 HI Urine pH Dipstick 6.0 Urine [...] % 19.5 % Lymph # 2.22 x10(3)/uL [place] % 8.9 % [place] # 1.01 K/uL HI Eos % 4.0 % Eos # 0.46 x10(3)/uL Baso % 0.6 % Baso # 0.07 x10(3)/uL nRBC 0.020 HI Slide Review No IG# 0.08 x10(3)/uL HI IG% 0.70 % HI PT 10.3 Second(s) INR 1.0 PTT 29.6 Second(s) . Radiology results: Radiology Results (Last 48 hours) [id number] -- 04/08/2019 10:42 US Scrotum and Contents [...] EST, Discharge to: Home . Prescriptions: Prescription Product Introduction Manager Pharmacy: [facility] rectal enema (Prescribe): 133 mL, [...]
--- OUTSIDE RECORDS SUMMARY | 2025-03-22 16:40 | XMS_ITS | Encounter Summary ---
Author Organization [employer] ([place], [place], [place], [place], [place]) Address [address] [place] [address] Care Team Providers Care Medical Affairs Specialist Name Role Phone Unavailable Primary Care Provider Unavailabl e Encounter Details Date Type Department Care Team (Late st Contact Info) Description 05/30/2019 Transcribed Document [facility] Radiology [address] [place] [address] Provider [facility] MD Melanie Social History Tobacco Use Types Packs/Day Years Used Date Smoking Tobacco: Never Assessed Sex and Gender Information Value Date Recorded Sex Assigned at Not on file Legal Sex Male 4:07 PM CDT Gender Identity Not on file Sexual Orientation Not on file documented as of this encounter Miscellaneous Notes * Cerner Conversion Note - [facility] Melanie ProviderMD - 05/30/2019 6:00 AM EST Chart Check - Review Order Profile Entered On: 05/30/2019 5:07 EST Performed On: 05/30/2019 5:00 EST by Jenna Vargas Lpn Chart Check Powerplans Initiated/Discontinued as Appropriate : Yes All Active Orders Reviewed : Yes Jenna Vargas Lpn - 05/30/2019 5:07 EST Electronically signed by Angel [facility] Conversion Grain Wafer Machine Operator Cerner at 10/14/2022 2:01 PM CDT documented in this encounter Plan of Treatment Not on file documented as of this encounter Visit Diagnoses Not on filedocumented in this encounter
--- OUTSIDE RECORDS SUMMARY | 2025-03-22 16:40 | XMS_ITS | Encounter Summary ---
Author Organization [employer] ([place], [place], [place], [place], [place]) Address [address] [place] [address] Care Team Providers Care Amusement Ride Operator Name Role Phone Unavailable Primary Care Provider Unavailabl e Encounter Details Date Type Department Care Team (Late st Contact Info) Description 05/30/2019 Transcribed Document [facility] [place] Family Medicine [address] [place] [address] ProviderMelanie MD [address] [place] [address] Social History Tobacco Use Types Packs/Day Years Used Date Smoking Tobacco: Never Assessed Sex and Gender Information Value Date Recorded Sex Assigned at Not on file Legal Sex Male 4:07 PM CDT Gender Identity Not on file Sexual Orientation Not on file documented as of this encounter Miscellaneous Notes * Cerner Conversion Note - Melanie ProviderMD - 05/30/2019 12:17 PM CARTON MAKER WO Inpatient Documentation Entered On: 05/30/2019 12:18 [...] 05/30/2019 12:17 EST Electronically signed by [facility] Conversion Garment Turner Cerner at 09/05/2022 2:24 PM CDT documented in this encounter Plan of Treatment Not on file documented as of this encounter Visit Diagnoses Not on filedocumented in this encounter
--- OUTSIDE RECORDS SUMMARY | 2025-03-22 16:40 | XMS_ITS | Encounter Summary ---
Author Organization [employer] ([place], [place], [place], [place], [place]) Address [address] [place] [address] Care Team Providers Care Prosthetic Assistant Name Role Phone Unavailable Primary Care Provider Unavailabl e Encounter Details Date Type Department Care Team (Late st Contact Info) Description 05/28/2019 Transcribed Document [facility] [place] [address] [place] [address] ProviderMelanie MD [address] [place], [place] [id number] Social History Tobacco Use Types Packs/Day Years Used Date Smoking Tobacco: Never Assessed Sex and Gender Information Value Date Recorded Sex Assigned at Not on file Legal Sex Male 4:07 PM CDT Gender Identity Not on file Sexual Orientation Not on file documented as of this encounter Miscellaneous Notes * Cerner Conversion Note - Historical ProviderMD - 05/28/2019 11:54 PM YARN EXAMINER [facility] ED Discharge Entered On: 05/28/2019 23:54 EST [...] 05/28/2019 23:54 EST Electronically signed by Angel [facility] Conversion Hardware Press Operator Cerner at 09/05/2022 2:15 PM CDT documented in this encounter Plan of Treatment Not on file documented as of this encounter Visit Diagnoses Not on filedocumented in this encounter
--- OUTSIDE RECORDS SUMMARY | 2025-03-22 16:40 | XMS_ITS | Encounter Summary ---
Author Organization [facility] Address [address] [place] [address] Care Team Providers Care Residential Leasing Manager Name Role Phone Anita Dumas Primary Care Provider [phone] Encounter Details Date Type Department Care Team ([facility] st Contact Info) Description 03/28/2024 Orders Only External Location [address] [place] [address] Provider, External Social History Tobacco Use Types [...] documented as of this encounter Care Teams Residential Leasing Manager Relationship Specialty Start Date End Date Anita Dumas PA [address] [place] [address] PCP - General 08/06/22 documented as of this encounter
--- OUTSIDE RECORDS SUMMARY | 2025-03-22 16:40 | XMS_ITS | Encounter Summary ---
Author Organization [employer] ([place], [place], [place], [place], [place]) Address [address] [place] [address] Care Team Providers Care Program Development Specialist Name Role Phone Unavailable Primary Care Provider Unavailabl e Encounter Details Date Type Department Care Team (Late st Contact Info) Description 05/31/2019 Transcribed Document [facility] [place] Family Medicine [address] [place] [address] ProviderMelanie MD [address] [place] [address] Social History Tobacco Use Types Packs/Day Years Used Date Smoking Tobacco: Never Assessed Sex and Gender Information Value Date Recorded Sex Assigned at Not on file Legal Sex Male 4:07 PM CDT Gender Identity Not on file Sexual Orientation Not on file documented as of this encounter Miscellaneous Notes * Cerner Conversion Note - Melanie Grider MD - 05/31/2019 2:04 AM SPACE PLANNER Event Note Entered On: 05/31/2019 2:07 EST Performed On: 05/31/2019 2:04 EST by Kristofer Lau RN Event Note Event Date/Time : 05/30/2019 20:30 EST Event Location : Assigned room Event Details : Other: Description of Event : Patient complains of delay in administering pain medicine When patient's FLAG DECORATOR dilaudid was about to finish, a request [...] - 05/31/2019 2:04 EST Electronically signed by Angel [facility] Conversion Hands Parter Cerner at 09/05/2022 2:23 PM CDT documented in this encounter Plan of Treatment Not on file documented as of this encounter Visit Diagnoses Not on filedocumented in this encounter
--- OUTSIDE RECORDS SUMMARY | 2025-03-22 16:40 | XMS_ITS | Encounter Summary ---
Author Organization [employer] ([place], [place], [place], [place], [place]) Address [address] [place] [address] Care Team Providers Care Steward/Stewardess Lounge Name Role Phone Unavailable Primary Care Provider Unavailabl e Encounter Details Date Type Department Care Team (Late st Contact Info) Description 05/30/2019 Transcribed Document [facility] [place] [address] [place] [address] ProviderMelanie MD [address] [place] [address] Social History Tobacco Use Types Packs/Day Years Used Date Smoking Tobacco: Never Assessed Sex and Gender Information Value Date Recorded Sex Assigned at Not on file Legal Sex Male 4:07 PM CDT Gender Identity Not on file Sexual Orientation Not on file documented as of this encounter Miscellaneous Notes * Cerner Conversion Note - Historical ProviderMD - 05/30/2019 11:23 AM MANAGER TRANSPORT On Going Discharge Planning Entered On: 05/30/2019 11:23 EST Performed On: 05/30/2019 11:23 EST by LYNDSEY GAY RN-Brake Repairer BusWeld Inspector Progress Note Discharge Arrangements : Patient Post-Acute Information Patient Name: TERRI MOREL Gender: Male : 62 Age: 59 Years No Post-Acute Placement(s) Listed No Post-Acute Service(s) Listed No Curaspan Referral(s) Listed Did you Attend Multidisciplinary Rounds? : Yes LYNDSEY GAY RN-Brake Repairer Bus - 05/30/2019 11:23 EST documented in this encounter Plan of Treatment Not on file documented as of this encounter Visit Diagnoses Not on filedocumented in this encounter
--- OUTSIDE RECORDS SUMMARY | 2025-03-22 16:40 | XMS_ITS | Encounter Summary ---
Author Organization [employer] ([place], [place], [place], [place], [place]) Address [address] [place] [address] Care Team Providers Care Page Technician Name Role Phone Unavailable Primary Care Provider Unavailabl e Encounter Details Date Type Department Care Team (Late st Contact Info) Description 06/01/2019 Transcribed Document [facility] [place] Family [place] [address] [place] [address] ProviderMelanie MD [address] [place] [address] Social History Tobacco Use Types Packs/Day Years Used Date Smoking Tobacco: Never Assessed Sex and Gender Information Value Date Recorded Sex Assigned at Not on file Legal Sex Male 4:07 PM CDT Gender Identity Not on file Sexual Orientation Not on file documented as of this encounter Miscellaneous Notes * Cerner Conversion Note - Melanie Grider MD - 06/01/2019 4:58 PM SLIVER CHOPPER Patient Education Materials Follows: Negative Pressure Wound [...] to treat your wound at home. ??? [place] hospital stay. ??? Less pain. What are [...] 04/16/2009 Document Revised: 03/31/2017 Document Reviewed: 02/07/2016 [employer] Interactive Patient Education ? 2019 [employer] Negative Pressure Wound Therapy Dressing Care [...] open and ready to use. ? Hand financial services education consultant. ? Wound cleanser or saltwater solution (saline) [...] and water are not available, use hand financial services education consultant. ??? Put on gloves. ??? Turn off [...] and water are not available, use hand financial services education consultant. Cleaning your wound ??? Follow your health care provider's instructions on how to clean your wound. This may include using a saline or recommended wound cleanser. ??? Do not use wwei-saw-mwjalvi medicated or antiseptic creams, sprays, liquids, or [...] and water are not available, use hand financial services education consultant. Applying the dressing ??? Apply a skin [...] and water are not available, use hand financial services education consultant. ??? Attach the suction and turn the [...] 02/07/2016 [employer] Interactive Patient Education ? 2019 [employer] documented in this encounter Plan of Treatment Not on file documented as of this encounter Visit Diagnoses Not on filedocumented in this encounter
--- OUTSIDE RECORDS SUMMARY | 2025-03-22 16:40 | XMS_ITS | Encounter Summary ---
Author Organization [employer] ([place], [place], [place], [place], [place]) Address [address] [place] [address] Care Team Providers Care Circuitry Negative Inspector Name Role Phone Unavailable Primary Care Provider Unavailabl e Encounter Details Date Type Department Care Team (Late st Contact Info) Description 05/28/[address] [facility] [place] [address] [place] [address] ProviderMelanie MD [address] [place] [address] Social History Tobacco Use Types Packs/Day Years Used Date Smoking Tobacco: Never Assessed Sex and Gender Information Value Date Recorded Sex Assigned at Not on file Legal Sex Male 4:07 PM CDT Gender Identity Not on file Sexual Orientation Not on file documented as of this encounter Miscellaneous Notes * Cerner Conversion Note - Melanie Grider MD - 05/28/2019 9:02 PM MECHANICAL ENGINEERING TECHNOLOGIST Patient: TERRI MOREL Age: 59 years Sex: [...] Pharmacy consulted to dose vancomycin for abscess. OIO=465 kg BMI=38.7 Consulting MD: Harshad Martino ID: [id number] Goal Trough: -18 Current Abx: Zosyn (start 05/28) Vancomycin, PTD MAY 28 19:06 140 108 12 / H 200 3.7 27 0.80 \ SWAPNA 11 19:06 \ 14.8 / 8.3 226 / [...] results. Thank you for this consultation. Adri Fsiher, PharmD PGY-1 Grocery Team Member [phone] documented in this encounter Plan of Treatment Not on file documented as of this encounter Visit Diagnoses Not on filedocumented in this encounter
--- OUTSIDE RECORDS SUMMARY | 2025-03-22 16:40 | XMS_ITS | Encounter Summary ---
Author Organization [employer] ([place], [place], [place], [place], [place]) Address [address] [place] [address] Care Team Providers Care Administrative Receptionist Name Role Phone Unavailable Primary Care Provider Unavailabl e Encounter Details Date Type Department Care Team (Late st Contact Info) Description 05/29/2019 Transcribed Document [facility] [place] Family Medicine [address] [place] [address] ProviderMelanie MD [address] [place] [address] Social History Tobacco Use Types Packs/Day Years Used Date Smoking Tobacco: Never Assessed Sex and Gender Information Value Date Recorded Sex Assigned at Not on file Legal Sex Male 4:07 PM CDT Gender Identity Not on file Sexual Orientation Not on file documented as of this encounter Miscellaneous Notes * Cerner Conversion Note - Melanie ProviderMD - 05/29/2019 4:43 AM FIRE PREVENTION ENGINEER Education-Diabetes Topics Entered On: 05/29/2019 6:31 EST [...] 05/29/2019 6:31 EST Electronically signed by [facility] Conversion Divider Operator Cerner at 09/05/2022 2:15 PM CDT documented in this encounter Plan of Treatment Not on file documented as of this encounter Visit Diagnoses Not on filedocumented in this encounter
--- OUTSIDE RECORDS SUMMARY | 2025-03-22 16:40 | XMS_ITS | Encounter Summary ---
Author Organization [employer] ([place], [place], [place], [place], [place]) Address [address] [place] [address] Care Team Providers Care Preschool Education Director Name Role Phone Unavailable Primary Care Provider Unavailabl e Encounter Details Date Type Department Care Team (Late st Contact Info) Description 05/30/2019 Transcribed Document [facility] [place] Family Medicine [address] [place] [address] ProviderMelanie MD [address] [place] [address] Social History Tobacco Use Types Packs/Day Years Used Date Smoking Tobacco: Never Assessed Sex and Gender Information Value Date Recorded Sex Assigned at Not on file Legal Sex Male 4:07 PM CDT Gender Identity Not on file Sexual Orientation Not on file documented as of this encounter Miscellaneous Notes * Cerner Conversion Note - Melanie ProviderMD - 05/30/2019 11:16 AM STAVE BOLT EQUALIZER Initial Discharge Planning Entered On: 05/30/2019 11:18 EST Performed On: 05/30/2019 11:16 EST by LYNDSEY GAY RN-Baby Stroller Rental Clerk Initial Assessment I Previously Documented Living Environment : No qualifying data available. LYNDSEY GAY RN-Baby Stroller Rental Clerk - 05/30/2019 11:19 EST Living Situation : [...] Is Guardianship Needed : No LYNDSEY GAY RN-Baby Stroller Rental Clerk - 05/30/2019 11:16 EST Initial Assessment II Sensory and Motor Deficits : None Current Home Treatments and Equipment : CPAP, Walker (Comment: Rollator [LYNDSEY GAY RN-Baby Stroller Rental Clerk - 05/30/2019 11:19 EST] ) Home Equipment Contact Information : [facility] provider [phone] Services and Community Resources : Home Health (Comment: Pt states that he was current with [facility] [LYNDSEY GAY RN-Baby Stroller Rental Clerk - 05/30/2019 11:19 EST] ) Does the Patient have a Floor to SNF Benefit? : Yes LYNDSEY GAY RN-Baby Stroller Rental Clerk - 05/30/2019 11:16 EST Discharge Needs I Anticipated Discharge Date : 05/31/2019 EST Anticipated Discharge To, CM : Home with home health Current Home Treatment/Equipment : Current Home Treatment/Equipment No qualifying data available. Post Acute/Home Treatments : None Documentation Status Complete : Yes LYNDSEY GAY RN-Baby Stroller Rental Clerk - 05/30/2019 11:16 EST Discharge Needs II Professional Skilled Services : Professional Skilled Services No qualifying data available. Needs Assistance with Transportation : No LYNDSEY GAY RN-Baby Stroller Rental Clerk - 05/30/2019 11:16 EST Narrative Note Narrative [...] @ 40. CM will follow. LYNDSEY GAY RN-Baby Stroller Rental Clerk - 05/30/2019 11:19 EST documented in this encounter Plan of Treatment Not on file documented as of this encounter Visit Diagnoses Not on filedocumented in this encounter
--- OUTSIDE RECORDS SUMMARY | 2025-03-22 16:40 | XMS_ITS | Encounter Summary ---
Author Organization [employer] ([place], [place], [place], [place], [place]) Address [address] [place] [address] Care Team Providers Care Electron Gun Inspector Name Role Phone Unavailable Primary Care Provider Unavailabl e Encounter Details Date Type Department Care Team (Late st Contact Info) Description 04/08/2019 Transcribed Document [facility] [place] [address] [place] [address] ProviderMelanie MD [address] [place] [address] Social History Tobacco Use Types Packs/Day Years Used Date Smoking Tobacco: Never Assessed Sex and Gender Information Value Date Recorded Sex Assigned at Not on file Legal Sex Male 4:07 PM CDT Gender Identity Not on file Sexual Orientation Not on file documented as of this encounter Miscellaneous Notes * Cerner Conversion Note - Melanie Grider MD - 04/08/2019 3:10 PM HOSE TURNER [facility] [place] [address] TERRI MOREL :1960 Visit Time:04/08/2019 [...] next Follow-Up Appointments Follow Up with JC MONNIG Md When Within 3 to 5 days Where: [address] [facility] [place] [address]- Business (1) Follow Up with SUKHJINDER SHRESTHA When Within 2 to 3 days Where: [address] [place] [address]- x8 Business (1) Allergies No [...] range between ( 0.0 and 7.0 ) [place] #: 1.01 K/uL -- Normal range between ( 0.16 and 1.00 ) Eos #: 0.46 x10(3)/uL -- Normal range between ( 0.00 and 0.80 ) [place] %: 8.9 % -- Normal range between [...] ) Urine Bilirubin Dipstick: Negative Urine Specific [place]: >1.030 -- Normal range between ( 1.005 [...] in fiber, or overly processed, such as lithuanian fries, hamburgers, cookies, candies, and soda. ??? Drink enough fluid to keep your urine clear or pale yellow. General instructions ??? Exercise regularly or as told by your health care provider. ??? Go to the restroom when you have the urge to go. Do not hold it in. ??? Take etod-izc-uosoivv and prescription medicines only as told by [...] 01/30/2005 Document Revised: 11/21/2016 Document Reviewed: 10/22/2016 BoomTown Interactive Patient Education ?? 2019 [employer]. Scrotal Hematoma Scrotal hematoma is a [...] minutes, 2???3 times a day. ??? Take hgok-qmn-xyvrmck and prescription medicines only as told by [...] 08/03/2007 Document Revised: 08/11/2017 Document Reviewed: 08/11/2017 ElseDónde Interactive Patient Education ?? 2019 [employer]Town [employer]. Emergency Awareness and Preventative Care STROKE [...] Assistance with quitting is available by contacting 8-260-KRLDNOW. This is a free resource providing counseling, support, and referral. Or you may contact your personal physician. [place] Suicide Prevention Lifeline: The National Suicide Prevention [...] radiology, or pathology physicians. Patient Name:TERRI MOREL Sangeeta I have received this information and was given the opportunity to ask questions. Patient/Childcare Provider Name: Patient/Childcare Provider Signature: Relationship to Patient: Clinician/Hospital Childcare Provider Signature: Please Provide a Telephone Number Where You Can Be Reached: Is it Permissible To Leave a Message? Date: Electronically signed by [facility] Conversion Cement Mixer Dalton at 09/05/2022 2:15 PM CDT documented in this encounter Plan of Treatment Not on file documented as of this encounter Visit Diagnoses Not on filedocumented in this encounter
--- OUTSIDE RECORDS SUMMARY | 2025-03-22 16:40 | XMS_ITS | Encounter Summary ---
Author Organization [employer] ([place], [place], [place], [place], [place]) Address [address] [place] [address] Care Team Providers Care Policy Value Calculator Name Role Phone Unavailable Primary Care Provider Unavailabl e Encounter Details Date Type Department Care Team (Late st Contact Info) Description 05/30/2019 Transcribed Document [facility] [place] Family Medicine [address] [place] [address] ProviderMelanie MD [address] [place] [address] Social History Tobacco Use Types Packs/Day Years Used Date Smoking Tobacco: Never Assessed Sex and Gender Information Value Date Recorded Sex Assigned at Not on file Legal Sex Male 4:07 PM CDT Gender Identity Not on file Sexual Orientation Not on file documented as of this encounter Miscellaneous Notes * Cerner Conversion Note - Historical ProviderMD - 05/30/2019 2:00 AM AOC PLANS INTELLIGENCE OFFICER CHIEF Director Global Market Research Details Entered On: 05/30/2019 1:06 EST Performed [...] 05/30/2019 1:06 EST Electronically signed by Angel [facility] Conversion Design Engineering Technician Dalton at 09/05/2022 2:22 PM CDT documented in this encounter Plan of Treatment Not on file documented as of this encounter Visit Diagnoses Not on filedocumented in this encounter
--- OUTSIDE RECORDS SUMMARY | 2025-03-22 16:40 | XMS_ITS | Encounter Summary ---
Author Organization [employer] ([place], [place], [place], [place], [place]) Address [address] [place] [address] Care Team Providers Care Informatica Architect Name Role Phone Unavailable Primary Care Provider Unavailabl e Encounter Details Date Type Department Care Team (Late st Contact Info) Description 06/01/2019 Transcribed Document [facility] [place] [address] [place] [address] ProviderMelanie MD [address] [place] [address] Social History Tobacco Use Types Packs/Day Years Used Date Smoking Tobacco: Never Assessed Sex and Gender Information Value Date Recorded Sex Assigned at Not on file Legal Sex Male 4:07 PM CDT Gender Identity Not on file Sexual Orientation Not on file documented as of this encounter Miscellaneous Notes * Cerner Conversion Note - Melanie Grider MD - 06/01/2019 5:17 PM WINTER SPORTS MANAGER [facility] [place] [address] CRISTOBAL MOREL :1960 Visit Time:05/28/2019 Your Visit Summary [...] Care Team STOP the following medications: STOP Anderson (hydrocodone - acetaminophen) STOP Percocet 5/325 mg tablets ---- New prescription for Percocet 10 / 325 mg tablets provided. Home Health Services: [facility] [phone] Medical Equipment for Home Use: [employer] for wound vac [phone] Discharge Follow Up Instructions: PCP 1 week, ID (Dr. Weiss) 1 week, Urology 2 weeks. Home wound VAC. Activity: Discharge Activity: Activity as tolerated Diet: Discharge Diet: Resume usual diet as tolerated Follow-Up Appointments Follow Up with SUKHJINDER SHRESTHA MD-INT When 06/13/2019 03:45 PM EST Comments Appointment has been made Where: [address] [place] [address]- x8 Follow Up with KATARZYNA RIZO MD-INF When 06/03/2019 09:30 AM EST Where: [address] [facility] [address] [place] [address]- Follow Up with JC LUQUE When Within 1 to 2 weeks Comments Call for follow up appointment Where: [address] [place] [address] [place] [address]- Business (1) Medications What How [...] to treat your wound at home. ??? Tr[place]ble hospital stay. ??? Less pain. What are [...] 04/16/2009 Document Revised: 03/31/2017 Document Reviewed: 02/07/2016 ElseGreekdrop Interactive Patient Education ?? 2019 [employer] Inc. Negative Pressure Wound Therapy Dressing Care [...] open and ready to use. ? Hand licensed journeyman electrician. ? Wound cleanser or saltwater solution (saline) [...] and water are not available, use hand licensed journeyman electrician. ??? Put on gloves. ??? Turn off [...] and water are not available, use hand licensed journeyman electrician. Cleaning your wound ??? Follow your health care provider's instructions on how to clean your wound. This may include using a saline or recommended wound cleanser. ??? Do not use uczt-geo-ggmodyn medicated or antiseptic creams, sprays, liquids, or [...] and water are not available, use hand licensed journeyman electrician. Applying the dressing ??? Apply a skin [...] and water are not available, use hand licensed journeyman electrician. ??? Attach the suction and turn the [...] 07/26/2012 Document Revised: 05/29/2016 Document Reviewed: 02/07/2016 6Waves Interactive Patient Education ?? 2019 [employer]elate. acetaminophen and oxycodone (a SEET a MIN [...] may report side effects to FDA at 3-296-MIX-9138. What other drugs will affect acetaminophen and [...] affect acetaminophen and oxycodone, including prescription and pirn-yfg-muaabht medicines, vitamins, and herbal products. Not all [...] to ensure that the information provided by [employer]. ('Multum') is accurate, up-to-date, and complete, but no guarantee is made to that effect. Drug information contained herein may be time sensitive. CrowdSource information has been compiled for use by healthcare practitioners and consumers in the [place] and therefore CrowdSource does not warrant that uses outside of the [place] are appropriate, unless specifically indicated otherwise. InG[employer]Its drug information does not endorse drugs, diagnose patients or recommend therapy. InG[employer]Its drug information is an informational resource designed [...] effective or appropriate for any given patient. [employer] does not assume any responsibility for any aspect of healthcare administered with the aid of information CrowdSource provides. The information contained herein is not intended to cover all possible uses, directions, precautions, warnings, drug interactions, allergic reactions, or adverse effects. If you have questions about the drugs you are taking, check with your doctor, nurse or pharmacist. Copyright 8876-9763 [employer]. Version: 18.02. Revision Date: 04/14/2018. lactobacillus acidophilus [...] may report side effects to FDA at 7-210-JYK-3994. What other drugs will affect lactobacillus acidophilus? Do not take lactobacillus acidophilus without medical advice if you are using any medications that can weaken your immune system, such as: ?? medicine to prevent organ transplant rejection; or ?? steroid medicine (prednisone, dexamethasone, methylprednisolone, and others). This list is not complete. Other drugs may interact with lactobacillus acidophilus, including prescription and iaix-emj-mtydbcz medicines, vitamins, and herbal products. Not all [...] to ensure that the information provided by [employer]. ('Multum') is accurate, up-to-date, and complete, but no guarantee is made to that effect. Drug information contained herein may be time sensitive. CrowdSource information has been compiled for use by healthcare practitioners and consumers in the [place] and therefore CrowdSource does not warrant that uses outside of the [place] are appropriate, unless specifically indicated otherwise. InG[employer]Its drug information does not endorse drugs, diagnose patients or recommend therapy. InG[employer]Its drug information is an informational resource designed [...] effective or appropriate for any given patient. Crowd[employer] does not assume any responsibility for any aspect of healthcare administered with the aid of information CrowdSource provides. The information contained herein is not intended to cover all possible uses, directions, precautions, warnings, drug interactions, allergic reactions, or adverse effects. If you have questions about the drugs you are taking, check with your doctor, nurse or pharmacist. Copyright 5401-6121 [employer]. Version: 3.07. Revision Date: 10/24/2016. amoxicillin and [...] may report side effects to FDA at 1-345-KWV-1496. What other drugs will affect amoxicillin and clavulanate potassium? Tell your doctor about all your current medicines and any you start or stop using, especially: ?? allopurinol; ?? probenecid; or ?? a blood thinner--warfarin, Coumadin, Jantoven. This list is not complete. Other drugs may interact with amoxicillin and clavulanate potassium, including prescription and uipy-ikm-zsuljow medicines, vitamins, and herbal products. Not all [...] to ensure that the information provided by [employer]. ('Multum') is accurate, up-to-date, and complete, but no guarantee is made to that effect. Drug information contained herein may be time sensitive. CrowdSource information has been compiled for use by healthcare practitioners and consumers in the [place] and therefore Multum does not warrant that uses outside of the [place] are appropriate, unless specifically indicated otherwise. [facility] [employer] drug information does not endorse drugs, diagnose patients or recommend therapy. Un[employer]con [employer]s drug information is an informational resource designed [...] effective or appropriate for any given patient. [facility] does not assume any responsibility for any aspect of healthcare administered with the aid of information [facility] provides. The information contained herein is not intended to cover all possible uses, directions, precautions, warnings, drug interactions, allergic reactions, or adverse effects. If you have questions about the drugs you are taking, check with your doctor, nurse or pharmacist. Copyright 6455-5827 [employer]. Version: 03.19. Revision Date: 05/19/2017. doxycycline (oral/injection) [...] or life-threatening conditions such as anthrax or [place] spotted fever. The benefit of treating a [...] may report side effects to FDA at 9-100-FBV-0556. What other drugs will affect doxycycline? Sometimes it is not safe to use certain medications at the same time. Some drugs can affect your blood levels of other drugs you take, which may increase side effects or make the medications less effective. Other drugs may affect doxycycline, including prescription and bzec-dqv-lqboyrp medicines, vitamins, and herbal products. Tell your [...] to ensure that the information provided by [employer]. ('Multum') is accurate, up-to-date, and complete, but no guarantee is made to that effect. Drug information contained herein may be time sensitive. CrowdSource information has been compiled for use by healthcare practitioners and consumers in the [place] and therefore CrowdSource does not warrant that uses outside of the [place] are appropriate, unless specifically indicated otherwise. InGaugeIts drug information does not endorse drugs, diagnose patients or recommend therapy. Popular Pays drug information is an informational resource designed [...] effective or appropriate for any given patient. CrowdSource does not assume any responsibility for any aspect of healthcare administered with the aid of information CrowdSource provides. The information contained herein is not intended to cover all possible uses, directions, precautions, warnings, drug interactions, allergic reactions, or adverse effects. If you have questions about the drugs you are taking, check with your doctor, nurse or pharmacist. Copyright 1749-9043 [employer]. Version: 21.. Revision Date: 10/06/2018. Emergency Awareness and Preventative [...] Assistance with quitting is available by contacting 0-149-HBOH-NOW. This is a free resource providing counseling, [...] range between ( 0.0 and 7.0 ) [place] #: 0.86 K/uL -- Normal range between ( 0.16 and 1.00 ) Eos #: 0.40 x10(3)/uL -- Normal range between ( 0.00 and 0.80 ) [place] %: 8.2 % -- Normal range between [...] ) Urine Bilirubin Dipstick: Negative Urine Specific [place]: >1.030 -- Normal range between ( 1.005 [...]
--- OUTSIDE RECORDS SUMMARY | 2025-03-22 16:40 | XMS_ITS | Encounter Summary ---
Author Organization [employer] ([place], [place], [place], [place], [place]) Address [address] [place] [address] Care Team Providers Care Shadowgraph Scale Operator Name Role Phone Unavailable Primary Care Provider Unavailabl e Encounter Details Date Type Department Care Team (Late st Contact Info) Description 05/30/2019 Transcribed Document [facility] [place] Family Medicine [address] [place] [address] ProviderMelanie MD [address] [place] [address] Social History Tobacco Use Types Packs/Day Years Used Date Smoking Tobacco: Never Assessed Sex and Gender Information Value Date Recorded Sex Assigned at Not on file Legal Sex Male 4:07 PM CDT Gender Identity Not on file Sexual Orientation Not on file documented as of this encounter Miscellaneous Notes * Cerner Conversion Note - Melanie ProviderMD - 05/30/2019 4:19 PM IN HOME AIDE Patient: TERRI VARGAS Age: 59 Years Sex: [...] still not adequate - will start dilaudid TURNER SPLITTER MACHINE OPERATOR. 2. Coronary artery disease status post CABG [...] Oral, At Bedtime Dilaudid 6 mg/30 ml TURNER SPLITTER MACHINE OPERATOR 6 mg, 6 mg= 30 mL, IntraVENous [...] Lymph # 2.13 x10(3)/uL 05/30/2019 06:33 EST [place] % 8.2 % 05/30/2019 06:33 EST [place] # 0.86 K/uL 05/30/2019 06:33 EST Eos [...]
--- OUTSIDE RECORDS SUMMARY | 2025-03-22 16:40 | XMS_ITS | Encounter Summary ---
Author Organization [employer] ([place], [place], [place], [place], [place]) Address [address] [place] [address] Care Team Providers Care Home Restoration Service Supervisor Name Role Phone Unavailable Primary Care Provider Unavailabl e Encounter Details Date Type Department Care Team (Late st Contact Info) Description 09/06/2018 Transcribed Document [facility] [place] [address] [place] [address] ProviderMelanie MD [address] [place] [address] Social History Tobacco Use Types Packs/Day Years Used Date Smoking Tobacco: Never Assessed Sex and Gender Information Value Date Recorded Sex Assigned at Not on file Legal Sex Male 4:07 PM CDT Gender Identity Not on file Sexual Orientation Not on file documented as of this encounter Miscellaneous Notes * Cerner Conversion Note - Melanie Grider MD - 09/06/2018 5:31 PM CDT DATE OF [...] no sleepiness and scores 4/24 in the [place] Sleepiness Scale. He previously had noted insomnia [...] 6. Melatonin. 7. Tradjenta. 8. Glimepiride. 9. Iron Belt. 10. Omeprazole. 11. Bupropion. 12. Janumet. 13. [...]
--- OUTSIDE RECORDS SUMMARY | 2025-03-22 16:40 | XMS_ITS | Encounter Summary ---
Author Organization [employer] ([place], [place], [place], [place], [place]) Address [address] [place] [address] Care Team Providers Care Market Research Assistant Name Role Phone Unavailable Primary Care Provider Unavailabl e Encounter Details Date Type Department Care Team (Late st Contact Info) Description 05/29/2019 Transcribed Document [facility] [place] Family Medicine [address] [place] [address] ProviderMelanie MD [address], [place] [id number] Social History Tobacco Use Types Packs/Day Years Used Date Smoking Tobacco: Never Assessed Sex and Gender Information Value Date Recorded Sex Assigned at Not on file Legal Sex Male 4:07 PM CDT Gender Identity Not on file Sexual Orientation Not on file documented as of this encounter Miscellaneous Notes * Cerner Conversion Note - Melanie Grider MD - 05/29/2019 8:05 AM SEED MILL SUPERINTENDENT Patient: TERRI MOREL Age: 59 years Sex: [...] influenza virus vaccine, inactivated: 0.5 mL, IntraMuscular, [id number] insulin regular sliding scale: Scale D, SubCutaneous, Q6H lactobacillus acidophilus: 1 Cap, Oral, BID lisinopril: 10 mg, Oral, Daily vancomycin + Sodium Chloride 0.9% intravenous solution 250 mL: 1,500 mg, 250 mL/Hr, IV Piggyback, [id number] Documented Medications Documented Aspir 81: mg, Oral, [...] Daily influenza vaccine, quadrivalent 0.5 mL, IntraMuscular, [id number] insulin regular 1 unit/0.01 mL inj 3mL Scale D, SubCutaneous, Q6H lactobacillus acidophilus cap 1 Cap, Oral, BID lisinopril 10 mg tab 10 mg 1 Tab, Oral, Daily NIFEdipine ER 90 mg tab 90 mg 1 Tab, Oral, Daily piperacillin-tazobactam + NaCl 0.9% 100 mL 3.375 Gram, IV Piggyback, Q6HInt vancomycin + NaCl 0.9% 250 mL 1,500 mg, IV Piggyback, [id number] Continuous: (1) NaCl 0.45% 1,000 mL 1,000 [...] History of obstructive sleep apnea / IMO [id number] / Confirmed, Active Problems (1) History of [...] 143 (MAY 28 23:24) H 180 (MAY 29 11:00) DBP H 107 (MAY 29:00) 76 (MAY [...] tenderness, No swelling, No deformity. Integumentary: Warm, [place], Moist, No rash, scrotal ulcer in the [...] 41.9 \, Radiology Results (Last 48 hours) [id number] -- 05/28/2019 20:28 CR Chest 1 Vw [...]
--- OUTSIDE RECORDS SUMMARY | 2025-03-22 16:40 | XMS_ITS | Encounter Summary ---
Author Organization [employer] ([place], [place], [place], [place], [place]) Address [address] [place] [address] Care Team Providers Care Shoveler Name Role Phone Unavailable Primary Care Provider Unavailabl e Encounter Details Date Type Department Care Team (Late st Contact Info) Description 05/29/2019 Transcribed Document [facility] [place] [address] [place] [address] ProviderMelanie MD [address] [place] [address] Social History Tobacco Use Types Packs/Day Years Used Date Smoking Tobacco: Never Assessed Sex and Gender Information Value Date Recorded Sex Assigned at Not on file Legal Sex Male 4:07 PM CDT Gender Identity Not on file Sexual Orientation Not on file documented as of this encounter Miscellaneous Notes * Cerner Conversion Note - Historical ProviderMD - 05/29/2019 5:00 AM MANAGER MULTIMEDIA Chart Check - Review Order Profile Entered On: 05/29/2019 4:42 EST Performed On: 05/29/2019 5:00 EST by Jenna Vargas Lpn Chart Check Powerplans Initiated/Discontinued as Appropriate : Yes All Active Orders Reviewed : Yes Jenna Vargas Lpn - 05/29/2019 4:42 EST Electronically signed by Angel [facility] Conversion Grocery Manager Cerner at 09/05/2022 2:13 PM CDT documented in this encounter Plan of Treatment Not on file documented as of this encounter Visit Diagnoses Not on filedocumented in this encounter
--- OUTSIDE RECORDS SUMMARY | 2025-03-22 16:40 | XMS_ITS | Encounter Summary ---
Author Organization [employer] ([place], [place], [place], [place], [place]) Address [address] [place] [address] Care Team Providers Care Unionmelt Operator Name Role Phone Unavailable Primary Care Provider Unavailabl e Encounter Details Date Type Department Care Team (Late st Contact Info) Description 05/31/2019 Transcribed Document [facility] [place] [address] [place] [address] ProviderMelanie MD [address] [place] [address] Social History Tobacco Use Types Packs/Day Years Used Date Smoking Tobacco: Never Assessed Sex and Gender Information Value Date Recorded Sex Assigned at Not on file Legal Sex Male 4:07 PM CDT Gender Identity Not on file Sexual Orientation Not on file documented as of this encounter Miscellaneous Notes * Cerner Conversion Note - Melanie Grider MD - 05/31/2019 3:07 PM BUTTON SEWER WOCN Inpatient Documentation Entered On: 05/31/2019 15:13 [...] NPWT to scrotum s/p exploration and debridement. CIVIL DRAFTING TECHNICIAN used by jag. Soaked Gauze with saline [...] Ulcer WOCN Wound Pressure Ulcer Documentation : Reddzbbbi-Azdgyt-Eyej Abnormality: Scrotum Posterior on 05/31/2019 15:05 by Jenise Ortiz Rn-Enterostomal I/W/A Present on Admission to Hospital: Yes I/W/A Type: Incision, open I/W/A Dressing Status: Intact I/W/A Dressing Activity: Assessed, Dressing changed I/W/A Wound Date of Dressing Change: :0.520956:0:0 I/W/A Wound Bed Description: Full-thickness, Undermining I/W/A [...] Initial set-up application NPWT Inpatient Start Date: :0.974174:0:0 NPWT Device Used: Renasys Type of Foam/Gauze Applied: Black Foam, Contact layer Number of Black Foam Gauze Applied: 2 Number of Contact Layer Pieces Applied: 1 Number of TRAC Pads Applied: 1 NPWT Pressure: Continuous NPWT Pressure Settin NPWT Canister Changed: Yes I/W/A Incision/Wound Healing: Initial WOCN Ostomy Documentation : No ostomy assessments reported. Jenise Ortiz Rn-Enterostomal - 05/31/2019 15:07 EST documented in this encounter Plan of Treatment Not on file documented as of this encounter Visit Diagnoses Not on filedocumented in this encounter
--- OUTSIDE RECORDS SUMMARY | 2025-03-22 16:40 | XMS_ITS | Encounter Summary ---
Author Organization [employer] ([place], [place], [place], [place], [place]) Address [address] [place] [address] Care Team Providers Care Cafe Server Name Role Phone Unavailable Primary Care Provider Unavailabl e Encounter Details Date Type Department Care Team (Late st Contact Info) Description 05/28/2019 Transcribed Document [facility] [place] Family Medicine [address] [place] [address] ProviderMelanie MD [address] [place] [address] Social History Tobacco Use Types Packs/Day Years Used Date Smoking Tobacco: Never Assessed Sex and Gender Information Value Date Recorded Sex Assigned at Not on file Legal Sex Male 4:07 PM CDT Gender Identity Not on file Sexual Orientation Not on file documented as of this encounter Miscellaneous Notes * Cerner Conversion Note - Melanie ProviderMD - 05/28/2019 8:36 PM CARPENTER'S HELPER Pain Assessment Entered On: 05/29/2019 2:09 EST [...]
--- OUTSIDE RECORDS SUMMARY | 2025-03-22 16:40 | XMS_ITS | Encounter Summary ---
Author Organization [employer] ([place], [place], [place], [place], [place]) Address [address] [place] [address] Care Team Providers Care Pole Shaver Helper Name Role Phone Unavailable Primary Care Provider Unavailabl e Encounter Details Date Type Department Care Team (Late st Contact Info) Description 05/31/2019 Transcribed Document [facility] [place] Family Medicine [address] [place] [address] ProviderMelanie MD [address] [place] [address] Social History Tobacco Use Types Packs/Day Years Used Date Smoking Tobacco: Never Assessed Sex and Gender Information Value Date Recorded Sex Assigned at Not on file Legal Sex Male 4:07 PM CDT Gender Identity Not on file Sexual Orientation Not on file documented as of this encounter Miscellaneous Notes * Cerner Conversion Note - Melanie ProviderMD - 05/31/2019 2:56 PM PLATE ROLLER On Going Discharge Planning Entered On: 05/31/2019 14:57 EST Performed On: 05/31/2019 14:56 EST by LYNDSEY GAY RN-Accounts OfficerPump Tester Progress Note Discharge Arrangements : Patient Post-Acute Information Patient Name: TERRI VARGAS Gender: Male : 62 Age: 59 Years No Post-Acute Placement(s) Listed No Post-Acute Service(s) Listed No [place] Referral(s) Listed Barriers to Discharge Identified : Clinical Condition of Patient Barriers to Discharge Unresolved : Clinical Condition of Patient Did you Attend Multidisciplinary Rounds? : Yes LYNDSEY GAY RN-Accounts Officer - 05/31/2019 14:56 EST Narrative Progress Note Narrative Progress Note : Met with Pt on MDR rounds. Pain continues to be an issue, Dilaudid CLIENT INTEGRATION MANAGER in use. Plans are to place a wound vac sometime today. CM will follow. LYNDSEY GAY, ANAT-Accounts Officer - 05/31/2019 14:56 EST documented in this encounter Plan of Treatment Not on file documented as of this encounter Visit Diagnoses Not on filedocumented in this encounter
--- OUTSIDE RECORDS SUMMARY | 2025-03-22 16:40 | XMS_ITS | Encounter Summary ---
Author Organization [employer] ([place], [place], [place], [place], [place]) Address [address] [place] [address] Care Team Providers Care Retail Advertising Sales Manager Name Role Phone Unavailable Primary Care Provider Unavailabl e Encounter Details Date Type Department Care Team (Late st Contact Info) Description 05/29/[address] [facility] [place] [address] [place] [address] ProviderMelanie MD [address] [place] [address] Social History Tobacco Use Types Packs/Day Years Used Date Smoking Tobacco: Never Assessed Sex and Gender Information Value Date Recorded Sex Assigned at Not on file Legal Sex Male 4:07 PM CDT Gender Identity Not on file Sexual Orientation Not on file documented as of this encounter Miscellaneous Notes * Cerner Conversion Note - Melanie ProviderMD - 05/29/2019 8:00 AM ARCHITECTURAL DRAFTSMAN Consult Phone Call Documentation Entered On: 05/29/2019 [...]
--- OUTSIDE RECORDS SUMMARY | 2025-03-22 16:40 | XMS_ITS | Encounter Summary ---
Author Organization [employer] ([place], [place], [place], [place], [place]) Address [address] [place] [address] Care Team Providers Care Credit And Collections Analyst Name Role Phone Unavailable Primary Care Provider Unavailabl e Encounter Details Date Type Department Care Team (Late st Contact Info) Description 05/29/2019 Transcribed Document [facility] [place] [address] [place] [address] ProviderMelanie MD [address] [place] [address] Social History Tobacco Use Types Packs/Day Years Used Date Smoking Tobacco: Never Assessed Sex and Gender Information Value Date Recorded Sex Assigned at Not on file Legal Sex Male 4:07 PM CDT Gender Identity Not on file Sexual Orientation Not on file documented as of this encounter Miscellaneous Notes * Cerner Conversion Note - Historical ProviderMD - 05/29/2019 3:07 PM LEATHER COLORER Education-Diabetes Topics Entered On: 05/29/2019 16:57 EST [...] signed by Angel [facility] Conversion Bar Host/Hostess Cerner at 09/05/2022 2:19 PM CDT documented in this encounter Plan of Treatment Not on file documented as of this encounter Visit Diagnoses Not on filedocumented in this encounter
--- OUTSIDE RECORDS SUMMARY | 2025-03-22 16:40 | XMS_ITS | Encounter Summary ---
Author Organization [employer] ([place], [place], [place], [place], [place]) Address [address] [place] [address] Care Team Providers Care Handle Bender Name Role Phone Unavailable Primary Care Provider Unavailabl e Encounter Details Date Type Department Care Team (Late st Contact Info) Description 05/29/2019 Transcribed Document [facility] [place] [facility] [place] [address] [place] [address] ProviderMelanie MD [address] [place] [address] Social History Tobacco Use Types Packs/Day Years Used Date Smoking Tobacco: Never Assessed Sex and Gender Information Value Date Recorded Sex Assigned at Not on file Legal Sex Male 4:07 PM CDT Gender Identity Not on file Sexual Orientation Not on file documented as of this encounter Miscellaneous Notes * Cerner Conversion Note - Historical ProviderMD - 05/29/2019 2:00 AM INDUSTRIAL WELDER Photocopier Technician Details Entered On: 05/29/2019 3:59 EST Performed [...] 05/29/2019 3:59 EST Electronically signed by Angel [facility] Conversion Application Developer Manager Cerner at 09/05/2022 2:19 PM CDT documented in this encounter Plan of Treatment Not on file documented as of this encounter Visit Diagnoses Not on filedocumented in this encounter
--- OUTSIDE RECORDS SUMMARY | 2025-03-22 16:40 | XMS_ITS | Encounter Summary ---
Author Organization [employer] ([place], [place], [place], [place], [place]) Address [address] [place] [address] Care Team Providers Care Trauma Program Manager Name Role Phone Unavailable Primary Care Provider Unavailabl e Encounter Details Date Type Department Care Team (Late st Contact Info) Description 05/28/2019 Transcribed Document [facility] [place] Family Medicine [address] [place] [address] ProviderMelanie MD [address] [place] [address] Social History Tobacco Use Types Packs/Day Years Used Date Smoking Tobacco: Never Assessed Sex and Gender Information Value Date Recorded Sex Assigned at Not on file Legal Sex Male 4:07 PM CDT Gender Identity Not on file Sexual Orientation Not on file documented as of this encounter Miscellaneous Notes * Cerner Conversion Note - Melanie ProviderMD - 05/28/2019 9:10 PM CAD PROGRAMMER Admission History, Adult Entered On: 05/29/2019 0:07 [...] From : Patient, Spouse Primary Language : Uruguayan Preferred Communication Mode : Verbal Communication Barrier [...] Scale Risk Level : 25-45 Medium Risk Mcgraw Fall Interventions : Adequate lighting, Assistive devices [...] Source : Stated Height Entry Format : [place] Height, Feet : 5 ft(Converted to: 152 cm, 60 Inch) Height, Inches : 4 Inch(Converted to: 0 ft 4 Inch, 10.16 cm) Clinical Height : 162.56 cm Weight Source : Bed scale Weight Entry Format : [place] Clinical Dosing Weight : 102.27 kg Weight, Pounds : 225 lb Body Surface Area (BSA) : 2.06 m2 Body Mass Index : 38.7 kg/m2 (HI) [place] Body Weight : 58 kg Jenna Vargas [...] Arterial Line : No Jenna Vargas Lpn 05/29/2019 0:02 EST Nutrition History Feeding Ability : Independent Adaptive Feeding Equipment : Regular Eating Poorly Due to Decreased Appetite : No Unplanned Weight Loss in Past 3-6 Months : No Malnutrition Screening Tool Total(mal) : 0 Malnutrition Screening Tool Risk Level : Patient not at risk Jenna Vargas Lpn 05/29/2019 0:02 EST [place] Suicide Severity Rating Scale (C-SSRS) CSSRS Past [...] Needs or Requests : No Jenna Vargas Lpn 05/29/2019 0:02 EST Valuables and Belongings Valuables and Belongings : Clothing, Personal devices, Personal items Clothing : Common streetwear Clothing Disposition : Bedside, With family Personal Device Disposition : Bedside, With family Personal Devices : Glasses Personal Items : Cell phone, Other: CPAP Personal Items Disposition : Bedside Jenna Vargas Lpn - 05/29/2019 0:02 EST documented in this encounter Plan of Treatment Not on file documented as of this encounter Visit Diagnoses Not on filedocumented in this encounter
--- OUTSIDE RECORDS SUMMARY | 2025-03-22 16:40 | XMS_ITS | Encounter Summary ---
Author Organization [employer] ([place], [place], [place], [place], [place]) Address [address] [place] [address] Care Team Providers Care Service Coordinator Name Role Phone Unavailable Primary Care Provider Unavailabl e Encounter Details Date Type Department Care Team (Late st Contact Info) Description 04/08/2019 Transcribed Document [facility] [place] [address] [place] [address] ProviderMelanie MD [address] [place], [place] [id number] Social History Tobacco Use Types Packs/Day Years Used Date Smoking Tobacco: Never Assessed Sex and Gender Information Value Date Recorded Sex Assigned at Not on file Legal Sex Male 4:07 PM CDT Gender Identity Not on file Sexual Orientation Not on file documented as of this encounter Miscellaneous Notes * Cerner Conversion Note - Historical ProviderMD - 04/08/2019 3:10 PM STAKEHOLDER MANAGER ED Discharge Entered On: 04/08/2019 15:10 EST [...]
--- OUTSIDE RECORDS SUMMARY | 2025-03-22 16:40 | XMS_ITS | Encounter Summary ---
Author Organization [employer] ([place], [place], [place], [place], [place]) Address [address] [place] [address] Care Team Providers Care Woodworking Machine Setter Name Role Phone Unavailable Primary Care Provider Unavailabl e Encounter Details Date Type Department Care Team (Late st Contact Info) Description 04/08/2019 Transcribed Document [facility] [place] [address] [place] [address] ProviderMelanie MD [address] [place] [address] Social History Tobacco Use Types Packs/Day Years Used Date Smoking Tobacco: Never Assessed Sex and Gender Information Value Date Recorded Sex Assigned at Not on file Legal Sex Male 4:07 PM CDT Gender Identity Not on file Sexual Orientation Not on file documented as of this encounter Miscellaneous Notes * Cerner Conversion Note - Melanie ProviderMD - 04/08/2019 11:03 AM GRAPHITE DISK ASSEMBLER Pain Assessment Entered On: 04/08/2019 12:31 EST [...]
--- OUTSIDE RECORDS SUMMARY | 2025-03-22 16:40 | XMS_ITS | Encounter Summary ---
Author Organization [employer] ([place], [place], [place], [place], [place]) Address [address] [place] [address] Care Team Providers Care Strike On Machine Operator Name Role Phone Unavailable Primary Care Provider Unavailabl e Encounter Details Date Type Department Care Team (Late st Contact Info) Description 04/08/2019 Transcribed Document [facility] [place] [address] [place] [address] ProviderMelanie MD [address] [place] [address] Social History Tobacco Use Types Packs/Day Years Used Date Smoking Tobacco: Never Assessed Sex and Gender Information Value Date Recorded Sex Assigned at Not on file Legal Sex Male 4:07 PM CDT Gender Identity Not on file Sexual Orientation Not on file documented as of this encounter Miscellaneous Notes * Cerner Conversion Note - Melanie ProviderMD - 04/08/2019 10:42 AM MANAGER CODING ED Assessment Entered On: 04/08/2019 10:57 EST [...] Communication Barrier : None Primary Language : Serbian Any Spiritual/Cultural Needs or Requests : No [...] Genitourinary Assessment, ED Genitourinary Assessment WDL : WDSangeeta with exceptions (Comment: c/o pain randall testicles, [...]
--- OUTSIDE RECORDS SUMMARY | 2025-03-22 16:40 | XMS_ITS | Encounter Summary ---
Author Organization [employer] ([place], [place], [place], [place], [place]) Address [address] [place] [address] Care Team Providers Care Sack Filler Name Role Phone Unavailable Primary Care Provider Unavailabl e Encounter Details Date Type Department Care Team (Late st Contact Info) Description 04/08/2019 Transcribed Document [facility] [place] [address] [place] [address] ProviderMelanie MD [address] [place] [address] Social History Tobacco Use Types Packs/Day Years Used Date Smoking Tobacco: Never Assessed Sex and Gender Information Value Date Recorded Sex Assigned at Not on file Legal Sex Male 4:07 PM CDT Gender Identity Not on file Sexual Orientation Not on file documented as of this encounter Miscellaneous Notes * Cerner Conversion Note - Historical ProviderMD - 04/08/2019 10:42 AM YARD TRUCK DRIVER [place] Suicide Severity Rating Scale (C-SSRS) Entered On: 04/08/2019 11:15 EST Performed On: 04/08/2019 10:45 EST by Renata Dia RN [place] Suicide Severity Rating Scale (C-SSRS) CSSRS [...]
--- OUTSIDE RECORDS SUMMARY | 2025-03-22 16:40 | XMS_ITS | Encounter Summary ---
Author Organization [employer] ([place], [place], [place], [place], [place]) Address [address] [place] [address] Care Team Providers Care Lift Operator Name Role Phone Unavailable Primary Care Provider Unavailabl e Encounter Details Date Type Department Care Team (Late st Contact Info) Description 06/01/2019 Transcribed Document [facility] [place] [address] [place] [address] ProviderMelanie MD [address] [place] [address] Social History Tobacco Use Types Packs/Day Years Used Date Smoking Tobacco: Never Assessed Sex and Gender Information Value Date Recorded Sex Assigned at Not on file Legal Sex Male 4:07 PM CDT Gender Identity Not on file Sexual Orientation Not on file documented as of this encounter Miscellaneous Notes * Cerner Conversion Note - Melanie ProviderMD - 06/01/2019 4:10 PM FLIGHT DIRECTOR Final Discharge Planning Entered On: 06/01/2019 16:12 EST Performed On: 06/01/2019 16:10 EST by LYNDSEY GAY RN-Hat And Cap Opener Final Discharge Planning Discharge Arrangements : Patient Post-Acute Information Patient Name: TERRI VARGAS Gender: Male : 62 Age: 59 Years Curaspan Referral(s): Service: Organization: Business Address: Phone Number: [facility] [address], [address], [place], [address] Patient Offered Choice/Affiliations Explained : [...] Services (Related/SOC within 3 days)-06 LYNDSEY GAY RN-Hat And Cap Opener - 06/01/2019 16:10 EST Final Narrative Note Final Narrative Note : Discharged to home, agreeable. Updates with vac order sent to [facility]. Wound vac to be delivered to room at approximately 1730. No other needs verbalized at this time. LYNDSEY GAY RN-Hat And Cap Opener - 06/01/2019 16:10 EST documented in this encounter Plan of Treatment Not on file documented as of this encounter Visit Diagnoses Not on filedocumented in this encounter
--- OUTSIDE RECORDS SUMMARY | 2025-03-22 16:40 | XMS_ITS | Encounter Summary ---
Author Organization [employer] ([place], [place], [place], [place], [place]) Address [address] [place] [address] Care Team Providers Care Director Of Convention Services Name Role Phone Unavailable Primary Care Provider Unavailabl e Encounter Details Date Type Department Care Team (Late st Contact Info) Description 06/01/2019 Transcribed Document [facility] [place] [address] [place] [address] ProviderMelanie MD [address] [place] [address] Social History Tobacco Use Types Packs/Day Years Used Date Smoking Tobacco: Never Assessed Sex and Gender Information Value Date Recorded Sex Assigned at Not on file Legal Sex Male 4:07 PM CDT Gender Identity Not on file Sexual Orientation Not on file documented as of this encounter Miscellaneous Notes * [employer]ner Conversion Note - Historical ProviderMD - 06/01/2019 4:50 PM SENIOR UI DEVELOPER Stroke/Warfarin Instructions Entered On: 06/01/2019 16:50 EST [...]
--- OUTSIDE RECORDS SUMMARY | 2025-03-22 16:41 | XMS_ITS | Encounter Summary ---
Author Organization [employer] ([place], [place], [place], [place], [place]) Address [address] [place] [address] Care Team Providers Care Manager Division Name Role Phone Unavailable Primary Care Provider Unavailabl e Encounter Details Date Type Department Care Team (Late st Contact Info) Description 06/28/2019 Transcribed Document [facility] [facility] [place] [facility] [place] [address] ProviderMelanie MD [facility] [place] [address] Social History Tobacco Use Types Packs/Day Years Used Date Smoking Tobacco: Never Assessed Sex and Gender Information Value Date Recorded Sex Assigned at Not on file Legal Sex Male 4:07 PM CDT Gender Identity Not on file Sexual Orientation Not on file documented as of this encounter Miscellaneous Notes * Cerner Conversion Note - Melanie ProviderMD - 06/28/2019 10:50 PM LOCOMOTIVE LUBRICATING SYSTEMS CLERK ED Triage Entered On: 06/28/2019 23:04 EST [...] : 3 - Urgent Tracking Group : [facility] ED Montse Mooney RN-Flex Team - [...] Problems(Active) CAD (coronary artery disease) (SNOMED CT :24320928 ) Name of Problem: CAD (coronary artery disease) ; Recorder: Montse Mooney RN-Flex Team; Confirmation: Confirmed ; Classification: Medical ; Code: [id number] ; Contributor System: GENERAL MEDICAL MERATE ; Last Updated: 06/28/2019 23:02 EST ; Life Cycle Date: 06/28/2019 ; Life Cycle Status: Active ; Vocabulary: SNOMED CT Diabetes mellitus (SNOMED CT :158010519 ) Name of Problem: Diabetes mellitus ; Recorder: Montse Mooney RN-Flex Team; Confirmation: Confirmed ; Classification: Medical ; Code: [id number] ; Contributor System: PowerChart ; Last Updated: 06/28/2019 23:02 EST ; Life Cycle Date: 06/28/2019 ; Life Cycle Status: Active ; Vocabulary: SNOMED CT History of obstructive sleep apnea (IMO :99531313 ) Name of Problem: History of obstructive sleep apnea ; Recorder: SYSTEM, SYSTEM; Confirmation: Confirmed ; Classification: Medical ; Code: [id number] ; Last Updated: 05/29/2019 0:07 EST ; Life Cycle Date: 05/29/2019 ; Life Cycle Status: Active ; Vocabulary: IMO HLD (hyperlipidemia) (SNOMED CT :93123555 ) Name of Problem: HLD (hyperlipidemia) ; Recorder: Montse Mooney RN-Flex Team; Confirmation: Confirmed ; Classification: Medical ; Code: [id number] ; Contributor System: GENERAL MEDICAL MERATE ; Last Updated: 06/28/2019 23:02 EST ; Life Cycle Date: 06/28/2019 ; Life Cycle Status: Active ; Vocabulary: SNOMED CT HTN (hypertension) (SNOMED CT :7980392627 ) Name of Problem: HTN (hypertension) ; Recorder: Montse Mooney RN-Flex Team; Confirmation: Confirmed ; Classification: Medical ; Code: [id number] ; Contributor System: PowerChart ; Last Updated: 06/28/2019 23:02 EST ; Life Cycle Date: 06/28/2019 ; Life Cycle Status: Active ; Vocabulary: SNOMED CT Diagnoses(Active) Testicular pain Date: 06/28/2019 ; Diagnosis Type: Reason For Visit ; Confirmation: Complaint of ; Clinical Dx: Testicular pain ; Classification: Medical ; Clinical Service: Non-Specified ; Code: PNED ; Probability: 0 ; Diagnosis Code: [id number] ED Height and Weight Height Source : Stated Height Entry Format : [place] Height, Feet : 5 ft(Converted to: 152 cm, 60 Inch) Height, Inches : 11 Inch(Converted to: 0 ft 11 Inch, 27.94 cm) Clinical Height : 180.34 cm Weight Source, ED : Standing scale Weight Entry Format : [place] Weight, Pounds : 230.6 lb Clinical Dosing Weight : 104.82 kg Body Surface Area (BSA) : 2.24 m2 Body Mass Index : 32.2 kg/m2 (HI) [place] Body Weight (IBW) : 74.31 kg Montse [...]
--- OUTSIDE RECORDS SUMMARY | 2025-03-22 16:41 | XMS_ITS | Encounter Summary ---
Author Organization [employer] ([place], [place], [place], [place], [place]) Address [address] [place] [address] Care Team Providers Care Field Staff Manager Name Role Phone Unavailable Primary Care Provider Unavailabl e Encounter Details Date Type Department Care Team (Late st Contact Info) Description 06/01/2019 Transcribed Document [facility] [place] Family Medicine [address] [place] [address] ProviderMelanie MD [address] [place], [place] [id number] Social History Tobacco Use Types Packs/Day Years Used Date Smoking Tobacco: Never Assessed Sex and Gender Information Value Date Recorded Sex Assigned at Not on file Legal Sex Male 4:07 PM CDT Gender Identity Not on file Sexual Orientation Not on file documented as of this encounter Miscellaneous Notes * Cerner Conversion Note - Melanie Grider MD - 06/01/2019 4:08 PM GORE SEAMER Patient: TERRI MOREL Age: 59 years Sex: [...] the wound and he has been taking [place] Percocet and morphine at home with no [...] Temp 98.4 (JUN 01 06:00) 97.9 (MAY 31:15) 98.1 (MAY 31 18:) Mon HR 70 (JUN 01 06:00) 70 (JUN 01 06:00) 90 (MAY 31:) Resp Rate 18 (JUN 01:00) 18 (MAY 31 18:00) 18 (MAY 31 18:) SBP H 152 (JUN 01:) 132 (MAY 31:) H 152 (JUN 01:) DBP 74 (JUN 01:) 73 (JUN 01 02:30) H 96 (MAY [...]
--- OUTSIDE RECORDS SUMMARY | 2025-03-22 16:41 | XMS_ITS | Encounter Summary ---
Author Organization [employer] ([place], [place], [place], [place], [place]) Address [address] [place] [address] Care Team Providers Care Steel Pickler Name Role Phone Unavailable Primary Care Provider Unavailabl e Encounter Details Date Type Department Care Team (Late st Contact Info) Description 06/05/2019 Transcribed Document [facility] [place] Family Medicine [address] [place] [address] ProviderMelanie MD [facility] [place] [address] Social History Tobacco Use Types Packs/Day Years Used Date Smoking Tobacco: Never Assessed Sex and Gender Information Value Date Recorded Sex Assigned at Not on file Legal Sex Male 4:07 PM CDT Gender Identity Not on file Sexual Orientation Not on file documented as of this encounter Miscellaneous Notes * Cerner Conversion Note - Melanie ProviderMD - 06/05/2019 1:08 PM SUPERVISOR MAPPING Patient: TERRI MOREL Age: 59 Years Sex: [...] Patient reports he has been taking his [place] Percocet and morphine at home with no [...]
--- OUTSIDE RECORDS SUMMARY | 2025-03-22 16:41 | XMS_ITS | Encounter Summary ---
Author Organization [employer] ([place], [place], [place], [place], [place]) Address [address] [place] [address] Care Team Providers Care Dehydrogenation Converter Operator Name Role Phone Unavailable Primary Care Provider Unavailabl e Encounter Details Date Type Department Care Team (Late st Contact Info) Description 09/27/2019 Transcribed Document [facility] [place] [address] [place] [address] ProviderMelanie MD [address] [place] [address] Social History Tobacco Use Types [...] 8. Melatonin. 9. Tradjenta. 10. Glimepiride. 11. Sophia. 12. Omeprazole. 13. Buprenorphine. 14. Januvia. 15. [...] up in 1 year and as needed. [id number] time today was 15 minutes with more than half of this in counseling regarding smoking and his use of CPAP. /[id number] MD JANES Jeffrey/AQ / JS / MODL /[id number] CC: José Elizabeth MD Electronically signed by Angel, [facility] Conversion Die Designer Cerner at 09/05/2022 2:15 PM CDT documented in this encounter Plan of Treatment Not on file documented as of this encounter Visit Diagnoses Not on filedocumented in this encounter
--- OUTSIDE RECORDS SUMMARY | 2025-03-22 16:41 | XMS_ITS | Clinical Summary ---
Author Organization [employer] ([place], [place], [place], [place], [place]) Address [address] [place] [address] Care Team Providers Care Quick Service Technician Name Role Phone Unavailable Primary [...]
--- OUTSIDE RECORDS SUMMARY | 2025-03-22 16:41 | XMS_ITS | Clinical Summary ---
Author Organization [facility] Address [address] [place] [address] Care Team Providers Care Heat Treat Technician Name Role Phone Claudy Kim MD Primary Care Provider [phone] Allergies Active Allergy Reactions Criticality Noted Date [...] (05/21/2020): Added automatically from request for surgery [id number] Headache, unspecified headache type 05/19/2020 Chronic epididymitis 10/04/2019 Tobacco dependence 09/27/2019 Palpitations 09/27/2019 Paroxysmal atrial fibrillation 12/06/2018 Overview (12/06/2018): Post op 12/03 CVA (cerebral vascular accident) 12/06/2018 Overview (12/06/2018): 12/03 post op CABG Allergic rhinitis 02/07/2016 Tobacco abuse 02/07/2016 Abdominal wall hernia 02/07/2016 Coronary artery disease invo lving [place] coronary artery of [place] heart without angina pectoris 10/30/2015 Overview (12/06/2018): Description: s/p stenting times 3 and CABG 12/03 at [facility] Chronic mycotic otitis externa 10/30/2015 [...] - 5.60 % 03/22/2021 7:15 PM EDT [facility] Blood Venipuncture / Unknown 03/22/2021 9:25 AM EDT 03/22/2021 9:25 AM EDT Narrative [facility] - 03/22/2021 7:15 PM EDT Hemoglobin A1C Ranges: Increased Risk for Diabetes 5.7% to 6.4% Diabetes >= 6.5% Diabetic Goal < 7.0% us Darnell Elizabeth MD LAB BLOOD ORDERABLES Final R esult [facility]
[address] [place] [address], * (ABNORMAL) Lipid Panel (03/22/2021 9:25 AM EDT) Total Cholesterol 102 0 - 200 mg/dL 03/22/2021 7:50 PM EDT [facility] Triglycerides 120 0 - 150 mg/dL 03/22/2021 7:50 PM EDT [facility] HDL Cholesterol 29(L) 40 - 60 mg/dL 03/22/2021 7:50 PM EDT [facility] LDL Cholesterol 51 0 - 100 mg/dL 03/22/2021 7:50 PM EDT [facility] VLDL Cholesterol 22 5 - 40 mg/dL 03/22/2021 7:50 PM EDT [facility] LDL/HDL Ratio 1.69 03/22/2021 7:50 PM EDT [facility] Blood Venipuncture / Unknown 03/22/2021 9:25 AM EDT 03/22/2021 9:25 AM EDT [facility] - 03/22/2021 7:50 PM EDT Cholesterol [...] MD LAB BLOOD ORDERABLES Final R esult [facility]
[address] [place] [address], * SCANNED - COLONOSCOPY (05/30/2020) us Donnell [...] pulse or is breathing): Full Care Teams Heat Treat Technician Relationship Specialty Start Date End Date Claudy Kim MD Replaced by [facility] [address] [address] PCP - General Family Medicine 11/23/24
--- OUTSIDE RECORDS SUMMARY | 2025-03-22 16:41 | XMS_ITS | Encounter Summary ---
Author Organization [employer] ([place], [place], [place], [place], [place]) Address [address] [place] [address] Care Team Providers Care Boiler/Chiller Operator Name Role Phone Unavailable Primary Care Provider Unavailabl e Encounter Details Date Type Department Care Team (Late st Contact Info) Description 06/28/2019 Transcribed Document [facility] [place] Family Medicine [address] [place] [address] ProviderMelanie MD [address], [place] [id number] Social History Tobacco Use Types Packs/Day Years Used Date Smoking Tobacco: Never Assessed Sex and Gender Information Value Date Recorded Sex Assigned at Not on file Legal Sex Male 4:07 PM CDT Gender Identity Not on file Sexual Orientation Not on file documented as of this encounter Miscellaneous Notes * [employer]ner Conversion Note - Melanie Grider MD - 06/28/2019 11:16 PM CAR REFINISHER Patient: TERRI MOREL Age: 59 years Sex: [...] % 33.5 % Lymph # 2.97 x10(3)/uL [place] % 7.4 % [place] # 0.66 K/uL Eos % 5.1 % [...]
--- OUTSIDE RECORDS SUMMARY | 2025-03-22 16:41 | XMS_ITS | Encounter Summary ---
Author Organization [employer] ([place], [place], [place], [place], [place]) Address [address] [place] [address] Care Team Providers Care Fur Grader Name Role Phone Unavailable Primary Care Provider Unavailabl e Encounter Details Date Type Department Care Team (Late st Contact Info) Description 06/10/2019 Transcribed Document [facility] Family Medicine [address] [place] [address] ProviderMelanie MD [address] [place] [address] Social History Tobacco Use Types Packs/Day Years Used Date Smoking Tobacco: Never Assessed Sex and Gender Information Value Date Recorded Sex Assigned at Not on file Legal Sex Male 4:07 PM CDT Gender Identity Not on file Sexual Orientation Not on file documented as of this encounter Miscellaneous Notes * Cerner Conversion Note - Melanie Grider MD - 06/10/2019 2:25 PM BRAZER ELECTRONIC DATE OF ADMISSION: 06/09/2019 HISTORY: This is a 59-year-old male, resident of [place], [place], we are seeing on referral from [...] with orchitis. He was admitted here at [facility] earlier this month for a surgical cleanout and additional debridement. This time, he was treated with a negative pressure wound system, which is still in place. The testicle remains. He has been having difficulty at home with frequent signaling of the device. He has one of the Echo it products, and unfortunately, we have found this [...] by with just 2 changes per week. /[id number] MD MELI Terry III/LESLEY / MELI / ANGELAL CC: MD Chuck Martinez MD Electronically signed by Angel, [facility] Conversion Associate Buyer Cerner at 09/05/2022 2:16 PM CDT documented in this encounter Plan of Treatment Not on file documented as of this encounter Visit Diagnoses Not on filedocumented in this encounter
--- OUTSIDE RECORDS SUMMARY | 2025-03-22 16:41 | XMS_ITS | Encounter Summary ---
Author Organization [employer] ([place], [place], [place], [place], [place]) Address [address] [place] [address] Care Team Providers Care Retail Performance Coach Name Role Phone Unavailable Primary Care Provider Unavailabl e Encounter Details Date Type Department Care Team (Late st Contact Info) Description 06/28/2019 Transcribed Document [facility] Family Medicine [address] [place] [address] ProviderMelanie MD [facility] [place] [address] Social History Tobacco Use Types Packs/Day Years Used Date Smoking Tobacco: Never Assessed Sex and Gender Information Value Date Recorded Sex Assigned at Not on file Legal Sex Male 4:07 PM CDT Gender Identity Not on file Sexual Orientation Not on file documented as of this encounter Miscellaneous Notes * Cerner Conversion Note - Historical ProviderMD - 06/28/2019 11:30 AM TOOLING MECHANIC ED Event Note Entered On: 06/29/2019 0:07 EST Performed On: 06/28/2019 11:30 EST by KEN REOBLLEDO ED Event Note ED Event Date/Time : 06/28/2019 11:30 EST ED Description of Event : pt requesting pain medication, refused Ibuprofen. MD Jackson aware. KEN REBOLLEDO - 06/29/2019 0:06 EST Electronically signed by Angel [facility] Conversion Senior Mechanical Development Engineer Cerner at 09/05/2022 2:30 PM CDT documented in this encounter Plan of Treatment Not on file documented as of this encounter Visit Diagnoses Not on filedocumented in this encounter
--- OUTSIDE RECORDS SUMMARY | 2025-03-22 16:41 | XMS_ITS | Encounter Summary ---
Author Organization [employer] ([place], [place], [place], [place], [place]) Address [address] [place] [address] Care Team Providers Care Friction Saw Operator Name Role Phone Unavailable Primary Care Provider Unavailabl e Encounter Details Date Type Department Care Team (Late st Contact Info) Description 06/29/2019 Transcribed Document [facility] [address] [place] [address] ProviderMelanie MD [address] [place] [address] Social History Tobacco Use Types Packs/Day Years Used Date Smoking Tobacco: Never Assessed Sex and Gender Information Value Date Recorded Sex Assigned at Not on file Legal Sex Male 4:07 PM CDT Gender Identity Not on file Sexual Orientation Not on file documented as of this encounter Miscellaneous Notes * Cerner Conversion Note - Melanie ProviderMD - 06/29/2019 12:06 AM WHITE KID BUFFER ED Event Note Entered On: 06/29/2019 0:09 EST Performed On: 06/29/2019 0:06 EST by Layla Vick NAIL EXPERT Event Note ED Event Date/Time : 06/29/2019 [...] for a visit I will get a property caretaker I am not kidding. Pt educated on implications r/t AMA, pt proceeds to get dressed and exit ED. Layla Vick RN - 06/29/2019 0:06 EST Electronically signed by Angel [facility] Conversion Scrap Materials Buyer Cerner at 09/05/2022 2:03 PM CDT documented in this encounter Plan of Treatment Not on file documented as of this encounter Visit Diagnoses Not on filedocumented in this encounter
--- OUTSIDE RECORDS SUMMARY | 2025-03-22 16:41 | XMS_ITS | Encounter Summary ---
Author Organization [employer] ([place], [place], [place], [place], [place]) Address [address] [place] [address] Care Team Providers Care Cleaning And Washing Equipment Operator Name Role Phone Unavailable Primary Care Provider Unavailabl e Encounter Details Date Type Department Care Team (Late st Contact Info) Description 06/16/2019 Transcribed Document [facility] Family Medicine [address] [place] [address] ProviderMelanie MD [address] [place] [address] Social History Tobacco Use Types Packs/Day Years Used Date Smoking Tobacco: Never Assessed Sex and Gender Information Value Date Recorded Sex Assigned at Not on file Legal Sex Male 4:07 PM CDT Gender Identity Not on file Sexual Orientation Not on file documented as of this encounter Miscellaneous Notes * Cerner Conversion Note - Melanie Grider MD - 06/16/2019 10:36 AM DISCOTHEQUE DANCER DATE OF CONSULTATION: 06/16/2019 HISTORY: This is [...] seen his urologist, Dr. Arguello, at [facility]. The plan now is to [...] surgical wound covers such as Prevena NPWT. /[id number] MD MELI Terry III/LESLEY / MELI / JOVANY /[id number] documented in this encounter Plan of Treatment Not on file documented as of this encounter Visit Diagnoses Not on filedocumented in this encounter
--- OUTSIDE RECORDS SUMMARY | 2025-03-22 16:41 | XMS_ITS | Encounter Summary ---
Author Organization [employer] ([place], [place], [place], [place], [place]) Address [address] [place] [address] Care Team Providers Care Entertainment Lawyer Name Role Phone Unavailable Primary Care Provider Unavailabl e Encounter Details Date Type Department Care Team (Late st Contact Info) Description 06/28/2019 Transcribed Document [facility] [place] Family Medicine [address] [place] [address] ProviderMelanie MD [address] [place] [address] Social History Tobacco Use Types Packs/Day Years Used Date Smoking Tobacco: Never Assessed Sex and Gender Information Value Date Recorded Sex Assigned at Not on file Legal Sex Male 4:07 PM CDT Gender Identity Not on file Sexual Orientation Not on file documented as of this encounter Miscellaneous Notes * Cerner Conversion Note - Melanie ProviderMD - 06/28/2019 10:50 PM ASSEMBLED WOOD PRODUCTS REPAIRER ED Assessment Entered On: 06/28/2019 23:13 EST Performed On: 06/28/2019 23:09 EST by Layla Vick, HOSEMAN Quick Look Assessment Level of Consciousness : Alert, Awake Affect/Behavior : Appropriate, Cooperative Orientation : Oriented x 4 Skin Temperature : Warm Skin Description : Normal for ethnicity Layla Vick RN - 06/28/2019 23:09 EST ED General-Functional Assess Information Obtained From : Patient Preferred Communication Mode : Verbal Communication Barrier : None Primary Language : Italian Any Spiritual/Cultural Needs or Requests : No [...] EST) EENT Assessment EENT Assessment WDL : [facility] Layla Vick, RN - 06/28/2019 23:09 EST Cardiovascular ASMT, ED Cardiovascular Assessment WDL : [place] Layla Vick, ANAT - 06/28/2019 23:09 EST Respiratory Respiratory Assessment WDL : [facility] Layla Vick, RN - 06/28/2019 23:09 EST Gastrointestinal ED Gastrointestinal Assessment WDL : [place] Layla Vick, RN - 06/28/2019 23:09 EST Genitourinary Assessment, ED Genitourinary Assessment WDL : [facility] with exceptions (Comment: Pt c/o testicular [...] EST Integumentary Assessment Integumentary Assessment WDL : [facility] Layla Vick, ANAT - 06/28/2019 23:09 EST Neurologic ASMT, ED Neurologic Assessment WDL : [facility] Layla Vick, ANAT - 06/28/2019 23:09 EST Pain Assessment Pain [...] signed by Nicci Ortiz Conversion Director Of Food And Nutrition Services Cerner at 09/05/2022 2:11 PM CDT documented in this encounter Plan of Treatment Not on file documented as of this encounter Visit Diagnoses Not on filedocumented in this encounter
--- OUTSIDE RECORDS SUMMARY | 2025-03-22 16:41 | XMS_ITS | Encounter Summary ---
Author Organization [employer] ([place], [place], [place], [place], [place]) Address [address] [place] [address] Care Team Providers Care Extruding Press Adjuster Name Role Phone Unavailable Primary Care Provider Unavailabl e Encounter Details Date Type Department Care Team (Late st Contact Info) Description 06/28/2019 Transcribed Document [facility] Family Medicine [address] [place] [address] ProviderMelanie MD [address] [place] [address] Social History Tobacco Use Types Packs/Day Years Used Date Smoking Tobacco: Never Assessed Sex and Gender Information Value Date Recorded Sex Assigned at Not on file Legal Sex Male 4:07 PM CDT Gender Identity Not on file Sexual Orientation Not on file documented as of this encounter Miscellaneous Notes * [employer]ner Conversion Note - Historical ProviderMD - 06/28/2019 10:50 PM POWERTRAIN ENGINEER [place] Suicide Severity Rating Scale (C-SSRS) Entered On: 06/28/2019 23:13 EST Performed On: 06/28/2019 23:09 EST by Layla Vick RN [place] Suicide Severity Rating Scale (C-SSRS) CSSRS Past Month Wish to be : No CSSRS Past Month Suicidal Thoughts : No CSSRS Lifetime Suicide Behavior : No Suicide Severity Rating Score : 0 Suicide Severity Rating : No Additional Care Required at this time Layla Vick RN - 06/28/2019 23:09 EST Electronically signed by Angel [facility] Conversion Vine Fruit Farming Supervisor Cerner at 09/05/2022 2:21 PM CDT documented in this encounter Plan of Treatment Not on file documented as of this encounter Visit Diagnoses Not on filedocumented in this encounter
--- OUTSIDE RECORDS SUMMARY | 2025-03-22 16:41 | XMS_ITS | Encounter Summary ---
Author Organization [employer] ([place], [place], [place], [place], [place]) Address [address] [place] [address] Care Team Providers Care Milieu Therapist Name Role Phone Unavailable Primary Care Provider Unavailabl e Encounter Details Date Type Department Care Team (Late st Contact Info) Description 06/29/2019 Transcribed Document [facility] [place] [address] [place] [address] ProviderMelanie MD [address] [place] [address] Social History Tobacco Use Types Packs/Day Years Used Date Smoking Tobacco: Never Assessed Sex and Gender Information Value Date Recorded Sex Assigned at Not on file Legal Sex Male 4:07 PM CDT Gender Identity Not on file Sexual Orientation Not on file documented as of this encounter Miscellaneous Notes * [employer]ner Conversion Note - Melanie ProviderMD - 06/29/2019 12:12 AM ENDO TECH ED Discharge Entered On: 06/29/2019 0:12 EST Performed On: 06/29/2019 0:12 EST by Layla Vick, laboratory monitor Process Patient Disposition : AMA/[place]/LWBS Personal Belongings [...] 06/29/2019 0:12 EST Electronically signed by Angel [facility] Conversion Hot Saw Operator Cerner at 09/05/2022 2:22 PM CDT documented in this encounter Plan of Treatment Not on file documented as of this encounter Visit Diagnoses Not on filedocumented in this encounter
[2025-03-22 16:49] LABS: Hematocrit 43.4 % (42.0-52.0); Hemoglobin 14.1 g/dL (14.1-18.0); Immature Granulocytes % 0.8 %; Mean Corpuscular HGB Conc 32.5 g/dL (31.8-35.4); Mean Corpuscular Hemoglobin 29.2 pg (27.0-31.2); Mean Corpuscular Volume 89.9 fl (80-94); Nucleated Red Blood Cells % 0 %; Platelet Count 171 K/mm3 (142-424); Red Blood Count 4.83 M/mm3 (4.60-6.20); Red Cell Distribution Width-SD 51.9 fL; White Blood Count 14.1 K/mm3 (4.8-10.8)
[2025-03-22 17:05] LABS: Strep Scrn Group A (Rapid) Negative (Negative)
[2025-03-22 17:06] LABS: Alanine Aminotransferase 17 U/L (12-78); Albumin Level 4.6 g/dl (3.5-5.0); Albumin/Globulin Ratio 1.2 (1.1-1.8); Alkaline Phosphatase 128 U/L (38-126); Anion Gap 15.8 mEq/L (5-15); Aspartate Amino Transferase 23 U/L (17-59); Bilirubin,Total 0.6 mg/dl (0.2-1.3); Blood Urea Nitrogen 61 mg/dl (9-20); Calcium 9.6 mg/dl (8.4-10.2); Carbon Dioxide 29 mmol/L (22.0-30.0); Chloride 90 mmol/L (98-107); Creatinine Clearance Estimated 50 mL/min (50-200); Creatinine,Serum 2.10 mg/dl (0.66-1.25); Estimated Glomerular Filt Rate 32 ml/min (>60); GFR (African American) 39 ML/MIN (>60); Globulin 3.7 g/dL (1.3-3.2); Glucose 264 mg/dl (74-100); Potassium 4.8 mmoL/L (3.5-5.1); Sodium 130 mmol/L (136-145); Total Protein,Serum 8.3 g/dl (6.3-8.2)
[2025-03-22 17:19] LABS: Troponin I 0.03 ng/ml (0.00-0.034)
[2025-03-22 17:39] LABS: Coronavirus 19, PCR Not Detected (NotDetected); Influenza A, PCR Not Detected (NotDetected); Influenza B, PCR Not Detected (NotDetected)
--- NOTE | 2025-03-22 17:44 | HMH.EDGENADL ---
Discharge Plan Disposition Patient Disposition: Home, Self-Care Prescriptions Prescriptions: New azithromycin 250 mg tablet See Rx Instructions .ROUTE .COMPLEX Qty: 6 0RF Rx Instructions: For 250 mg dose pack: take 500 mg today (day 1), then 250 mg for 4 days (days 2-5) No Action carvedilol 12.5 mg tablet 12.5 mg PO BID Qty: 180 3RF spironolactone 50 mg tablet See Rx Instructions .ROUTE .COMPLEX Qty: 90 5RF Dose Instruction: TAKE ONE TABLET BY MOUTH EVERY DAY Rx Instructions: TAKE ONE TABLET BY MOUTH EVERY DAY (DME) Dexcom G7 Drafter Chief Design Misc See Rx Instructions .Route Qty: 1 0RF Rx Instructions: As directed insulin glargine 100 unit/mL (3 mL) insulin pen 20 unit SQ QPM oxycodone-acetaminophen 10-325 mg tablet 1 tab PO QID (DME) OneTouch Ultra Test Strip See Rx Instructions .Route Qty: 50 8RF Rx Instructions: test sugar qid insulin regular human 100 unit/mL (3 mL) insulin pen 1 sliding scale dose SQ USEASDIRECTD Qty: 15 2RF Rx Instructions: give 10 U subq for before meal up q 4-6 hours if fingerstick glucose reading is above 300 (DME) Dexcom G7 Sensor Device See Rx Instructions .Route Qty: 3 12RF Rx Instructions: As directed, change q 10 days Ozempic 1 mg/dose (4 mg/3 mL) pen injector 1 mg SQ WEEKLY Qty: 3 0RF levofloxacin 750 mg tablet 750 mg PO DAILY 7 Days Qty: 7 0RF (DME) OneTouch Ultra Test Strip See Rx Instructions .Route Qty: 50 2RF Rx Instructions: daily testing omeprazole 40 mg capsule,delayed release(DR/EC) See Rx Instructions .ROUTE .COMPLEX Qty: 180 1RF Dose Instruction: TAKE 1 CAPSULE BY MOUTH TWICE DAILY - SWALLOW WHOLE; DO NOT CRUSH, CHEW, DISSOLVE, CUT, BREAK Rx Instructions: TAKE 1 CAPSULE BY MOUTH TWICE DAILY - SWALLOW WHOLE; DO NOT CRUSH, CHEW, DISSOLVE, CUT, BREAK Jardiance 25 mg tablet See Rx Instructions .ROUTE .COMPLEX Qty: 90 3RF Dose Instruction: TAKE 1 TABLET BY MOUTH ONCE DAILY Rx Instructions: TAKE 1 TABLET BY MOUTH ONCE DAILY (DME) pen needle, diabetic [Comfort Touch Pen Needle] 31 gauge x 5/32 needle See Rx Instructions .Route Qty: 100 6RF Rx Instructions: As directed, ONCE DAILY clopidogrel 75 mg tablet See Rx Instructions .ROUTE .COMPLEX Qty: 90 3RF Dose Instruction: TAKE 1 TABLET BY MOUTH ONCE DAILY Rx Instructions: TAKE 1 TABLET BY MOUTH ONCE DAILY atorvastatin 40 mg tablet See Rx Instructions .ROUTE .COMPLEX Qty: 90 3RF Dose Instruction: TAKE 1 TABLET BY MOUTH ONCE DAILY Rx Instructions: TAKE 1 TABLET BY MOUTH ONCE DAILY bumetanide 2 mg tablet See Rx Instructions .ROUTE .COMPLEX Qty: 180 3RF Dose Instruction: TAKE 1 TABLET BY MOUTH TWICE A DAY Rx Instructions: TAKE 1 TABLET BY MOUTH TWICE A DAY varenicline tartrate 1 mg tablet See Rx Instructions .ROUTE .COMPLEX Qty: 56 2RF Dose Instruction: TAKE 1 TABLET BY MOUTH TWICE DAILY Rx Instructions: TAKE 1 TABLET BY MOUTH TWICE DAILY metformin [Glucophage XR] 500 mg tablet extended release 24 hr 500 mg PO BID Qty: 180 3RF rivaroxaban [Xarelto] 2.5 mg tablet See Rx Instructions .ROUTE .COMPLEX Qty: 60 11RF Dose Instruction: TAKE 1 TABLET BY MOUTH TWICE A DAY Rx Instructions: TAKE 1 TABLET BY MOUTH TWICE A DAY duloxetine 60 mg capsule,delayed release(DR/EC) See Rx Instructions .ROUTE .COMPLEX Qty: 90 1RF Dose Instruction: TAKE ONE (1) CAPSULE BY MOUTH ONCE DAILY Rx Instructions: TAKE ONE (1) CAPSULE BY MOUTH ONCE DAILY Entresto 97-103 mg tablet See Rx Instructions .ROUTE .COMPLEX Qty: 180 3RF Dose Instruction: TAKE ONE TABLET BY MOUTH TWICE DAILY Rx Instructions: TAKE ONE TABLET BY MOUTH TWICE DAILY magnesium 500 mg Tablet 500 mg PO DAILY aspirin 325 mg Tablet 325 mg PO DAILY potassium 99 mg Tablet 99 mg PO BID nitroglycerin 0.4 mg Tablet, Sublingual See Rx Instructions .ROUTE .COMPLEX Rx Instructions: 0.4 mg sublingually gabapentin 600 mg tablet 600 mg PO QID methocarbamol 750 mg tablet 750 mg PO Q6H PRN (Reason: muscle spasm) Qty: 20 0RF Referrals Follow up/Referrals: Claudy Kim MD [Primary Care Provider, Family Practice] - See instructions Activity Restrictions/Add. Instructions Additional Instructions/Restrictions: Your workup showed a kidney injury that could be from dehydration or acute illness. I encourage you to follow-up with your primary care provider this week for recheck of your labs. I am also prescribing a Z-Mohan for your cough. I encourage you to use the inhaler as prescribed to help with your breathing. If you develop any new or worsening symptoms, or if you become concerned for your health for any reason, return to the emergency department for evaluation. Clinical Impressions Clinical Impression: Cough, GITA (acute kidney injury) Print Language Print Language: Kazakh Discharge ED Provider: Hermes Christie General Adult HPI General Chief complaint: PAIN Stated complaint: SOA,cough,congestion Time Seen by Provider: 03/22/25 17:29 Mode of Arrival: Ambulatory Source of Information: Patient Description of Symptoms (Recalled from ER Triage Doc. by RN): pt presents to ED c/o vomiting, sore throat, ear pain and cough that started today. pt reports SOA that started a couple days ago. History of Present Illness HPI narrative: Cristobal Vargas is a 65y male with a past medical history of hypertension, TIA, diabetes, CHF, ANNA, tobacco use who presents to the emergency department for complaints of productive cough of clear sputum as well as shortness of breath and right-sided chest pain. Patient states that starting today he developed the symptoms. He also states that he has had some posttussis emesis. He describes his chest pain is constant and on the right side of his chest. He denies any fevers. He does report a sore throat and states that a family member has similar symptoms. Related Data Home Medications ?Medication ?Instructions ?Recorded ?Confirmed gabapentin 600 mg tablet 600 mg PO QID 09/03/23 02/03/25 aspirin 325 mg tablet 325 mg PO DAILY 02/17/24 02/03/25 magnesium 500 mg tablet 500 mg PO DAILY 02/17/24 02/03/25 nitroglycerin 0.4 mg sublingual See Rx Instructions .Route .COMPLEX 02/17/24 02/03/25 tablet potassium 99 mg tablet 99 mg PO BID 02/17/24 02/03/25 oxycodone-acetaminophen 10 mg-325 1 tab PO QID 02/24/24 02/03/25 mg tablet insulin glargine 100 unit/mL (3 20 unit SQ QPM 02/03/25 02/03/25 mL) subcutaneous pen Previous Rx's ?Medication ?Instructions ?Recorded blood sugar diagnostic ([employer] #50 ea 11/10/23 Ultra Test strips) carvedilol 12.5 mg tablet 12.5 mg PO BID #180 tabs 07/13/24 spironolactone 50 mg tablet See Rx Instructions .Route 07/13/24 .COMPLEX #90 tabs omeprazole 40 mg capsule,delayed See Rx Instructions .Route 08/22/24 release .COMPLEX #180 caps empagliflozin 25 mg tablet See Rx Instructions .Route 08/30/24 (Jardiance) .COMPLEX #90 tabs pen needle, diabetic 31 gauge x #100 ea 09/02/24 (Comfort Touch Pen Needle) blood sugar diagnostic (OneTouch #50 ea 10/07/24 Ultra Test strips) insulin regular human 100 unit/mL 1 sliding scale dose SQ 10/07/24 (3 mL) subcutaneous pen USEASDIRECTD #15 mL methocarbamol 750 mg tablet 750 mg PO Q6H PRN muscle spasm #20 10/31/24 tabs atorvastatin 40 mg tablet See Rx Instructions .Route 11/21/24 .COMPLEX #90 ea clopidogrel 75 mg tablet See Rx Instructions .Route 11/21/24 .COMPLEX #90 tabs blood-glucose,candle cutter,cont #1 ea 01/05/25 (Dexcom G7 Drafter Chief Design) bumetanide 2 mg tablet See Rx Instructions .Route 01/18/25 .COMPLEX #180 tabs metformin 500 mg tablet,extended 500 mg PO BID #180 tabs 01/18/25 release 24 hr (Glucophage XR) varenicline tartrate 1 mg tablet See Rx Instructions .Route 01/18/25 .COMPLEX #56 ea blood-glucose sensor (Dexcom G7 #3 ea 02/03/25 Sensor device) levofloxacin 750 mg tablet 750 mg PO DAILY 7 days #7 tabs 02/03/25 semaglutide 1 mg/dose (4 mg/3 mL) 1 mg (0.75 mL) SQ WEEKLY #3 mL 02/03/25 subcutaneous pen injector (Ozempic) rivaroxaban 2.5 mg tablet (Xarelto) See Rx Instructions .Route 02/07/25 .COMPLEX #60 tabs azithromycin 250 mg tablet See Rx Instructions PO .COMPLEX #6 03/22/25 tabs duloxetine 60 mg capsule,delayed See Rx Instructions .Route 03/22/25 release .COMPLEX #90 caps sacubitril 97 mg-valsartan 103 mg See Rx Instructions .Route 03/23/25 tablet (Entresto) .COMPLEX #180 tabs Allergies Allergy/AdvReac Type Severity Reaction Status Date / Time dobutamine AdvReac Unknown Hypertensio Verified 02/03/25 09:16 n [facility] Disclaimer: The information contained in this section may have been updated after the patient was seen, as this information can be updated by other users. Medical History Ear drainage right Generalized headaches Ear pain, right Pneumonia Cardiogenic shock On mechanically assisted ventilation Acute respiratory failure with hypoxia Abdominal pain Constipation Deviated nasal septum Hypertrophy of inferior nasal turbinate Sinusitis Mixed restrictive and obstructive lung disease Cardiac pacemaker in situ Pulmonary emphysema Smoking greater than 30 pack years Dyspnea on exertion Lung mass Nodule of right lung Right maxillary sinusitis HFrEF (heart failure with reduced ejection fraction) Impacted cerumen of right ear Dizziness Abnormal electrocardiogram [ECG] [EKG] ANNA (obstructive sleep apnea) Hyperlipidemia Depression Anxiety Gastroesophageal reflux disease Insomnia Coronary artery disease History of TIA (transient ischemic attack) Hypertension Diabetes mellitus Epididymitis Palpitations Opiate withdrawal TIA (transient ischemic attack) Surgical History History of removal of testicle History of hernia surgery History of cholecystectomy History of right mastoidectomy History of coronary artery bypass graft Family History Other Diabetes Social History Smoking Status: Never smoker quit status: considering quitting alcohol intake: never substance use type: denies use current occupational status: disabled Travel in the last 8 weeks?: None household members: spouse and children housing: house Have you lived/traveled outside US in past 30 days?: No Contact w/someone who lives/traveled outside US past 30 days?: No Exposure to someone with infectious disease in past 14 days?: No Do you have a fever (greater than 100.4 F or 38 C)?: No Have you tested positive for COVID-19?: No Exposed to someone with COVID-19 in past 14 days?: No Do you have a sore throat?: No Do you have a cough?: No Do you have any weakness?: No Do you have any diarrhea?: No Are you experiencing any unusual bleeding?: No Do you have any muscle aches/pain?: No Do you have any abdominal pain?: No Are you experiencing loss of taste or smell?: No Other Medical History Have you received the Flu Vaccine for this season: No Have you received the Pneumonia Vaccine: Yes ROS Obtained: Yes Systems reviewed as appropriate & no additional complaints except as documented Physical Exam General General appearance: alert and in no apparent distress Head Head exam: atraumatic Eye Eye exam: Present normal appearance ENT ENT exam: Present normal external ear exam Neck Neck exam: Present full ROM Chest Chest inspection: Present symmetric chest wall rise Respiratory Respiratory exam: Present normal lung sounds bilaterally; Absent respiratory distress, wheezes or stridor Cardiovascular Cardiovascular exam: Present regular rate and normal rhythm Abdominal Exam Abdominal exam: Present soft; Absent tenderness or guarding exam: Present deferred Extremities Exam Extremities exam: Present normal inspection Back Exam Back exam: Present normal inspection Neurological Exam Neurological exam: Present alert and oriented X3 Psychiatric Psychiatric exam: Present normal affect Skin Skin exam: Present warm and dry Medical Decision Making Medical Records Screening: Per USPSTF and CDC recommendations, given the prevalence of disease in our region, it is our hospital?s policy to screen for HIV and viral Hepatitis for all patients aged 18 and over and those with ongoing risk factors. George Inquiry Pt receiving controlled substance: No Vital Signs: 03/22/25 16:25 03/22/25 20:51 Temperature 97.7 F 98.2 F Temperature Source Oral Pulse Rate 77 Pulse Rate [Right Radial] 85 Respiratory Rate 20 20 Blood Pressure 127/74 Blood Pressure [Right Arm] 146/96 H Blood Pressure Mean [Right Arm] 112 Blood Pressure Source [Right Arm] Automatic Cuff Blood Pressure Position [Right Arm] Sitting 02 Sat by Pulse Oximetry 96 Oxygen Delivery Method Room Air Room Air Lab Data Lab Results 03/22/25 16:33: WBC 14.1 H, RBC 4.83, Hgb 14.1, Hct 43.4, MCV 89.9, MCH 29.2, MCHC 32.5, RDW 15.8, Plt Count 171, MPV 11.6 H, Neut % (Auto) 78.3, Lymph % (Auto) 11.6, [place] % (Auto) 8.3, Eos % (Auto) 0.6, Baso % (Auto) 0.4, Neut # (Auto) 11.0 H, Lymph # (Auto) 1.6, [place] # (Auto) 1.2 H, Eos # (Auto) 0.1, Baso # (Auto) 0.1, Sodium 130 L, Potassium 4.8, Chloride 90 L, Carbon Dioxide 29, Anion Gap 15.8 H, BUN 61 H, Creatinine 2.10 H, Estimated Creat Clear 50, Estimated GFR 32 L, Est GFR ( Amer) 39 L, Glucose 264 H, Calcium 9.6, Total Bilirubin 0.6, AST 23, ALT 17, Alkaline Phosphatase 128 H, Troponin I 0.03, Total Protein 8.3 H, Albumin 4.6, Globulin 3.7 H, Albumin/Globulin Ratio 1.2 03/22/25 16:39: SARS-CoV-2 (PCR) Not detected, Influenza A Untype (PCR) Not detected, Influenza Type B (PCR) Not detected, Group A Strep Rapid Negative 03/22/25 19:33: Sodium 131 L, Potassium 4.3, Chloride 91 L, Carbon Dioxide 31 H, Anion Gap 13.3, BUN 60 H, Creatinine 2.00 H, Estimated Creat Clear 53, Estimated GFR 34 L, Est GFR ( Amer) 41 L, Glucose 140 H D, Calcium 9.2, Troponin I 0.02 03/22/25 16:33 03/22/25 19:33 Orders (Tests/Meds): ED MEDICATIONS Discontinued Medications Generic Name Dose Route Start Last Admin Trade Name Freq PRN Reason Stop Dose Admin Albuterol Sulfate 2 puff 03/22/25 19:29 03/22/25 20:41 Albuterol-Hfa 90mcg/Puff Inhaler 8gm IH 04/21/25 19:28 2 puff Q4HP PRN Administration Shortness Of Breath Lactated Ringer's 500 mls @ 999 mls/hr 03/22/25 17:39 03/22/25 19:17 Lactated Ringer's 500ml IV 03/22/25 18:09 Infused .Q31M ONE Infusion Miscellaneous 1 unit 03/22/25 19:29 03/22/25 19:54 Aerochamber/Optihaler MC 03/22/25 19:30 1 unit ONCE ONE Administration ORDERS Category Date Time Status XR chest 2V Stat Exams 03/22/25 16:29 Completed BMP [Basic Metabolic Panel] Stat Lab 03/22/25 19:33 Completed Complete Blood Count Auto Diff Stat Lab 03/22/25 16:33 Completed Comprehensive Metabolic Panel Stat Lab 03/22/25 16:33 Completed Rapid PCR Covid and Flu A/B Stat Lab 03/22/25 16:39 Completed Strep Scrn Group A (Rapid) Stat Lab 03/22/25 16:39 Completed Troponin I Q3H Lab 03/22/25 19:33 Completed Troponin I Stat Lab 03/22/25 16:33 Completed Strep Screen Confirmation Stat Micro 03/22/25 16:39 Received Medical Decision Narrative: Cristobal Vargas is a 65y male with a past medical history of hypertension, TIA, diabetes, CHF, ANNA, tobacco use who presents to the emergency department for complaints of productive cough of clear sputum as well as shortness of breath and right-sided chest pain. Patient states that starting today he developed the symptoms. He also states that he has had some posttussis emesis. He describes his chest pain is constant and on the right side of his chest. He denies any fevers. He does report a sore throat and states that a family member has similar symptoms. On arrival, patient is mildly hypertensive, heart rate within normal limits, breathing comfortably on room air with appropriate oxygen saturation. No fever. Physical exam, as stated above, given overall well and nontoxic appearing male in no distress. He has no wheezing, rales or rhonchi. No murmurs or rubs. He appears well-hydrated. Differential diagnosis includes, but is not limited to: Viral respiratory illness, bronchitis, pneumonia, ACS, pericarditis, myocarditis, strep pharyngitis, among others. The most morbid conditions were considered and workup was based on these. Workup in the Emergency Department included: Chest x-ray, EKG, troponin, CBC, CMP, rapid COVID and flu testing, strep screen. Patient was given an albuterol inhaler treatment as well. EKG interpreted by me personally. Without evidence of ischemia. Normal sinus rhythm. QTc normal at 405 Chest x-ray was interpreted by me personally. There is flattening of the hemidiaphragms and increase in the AP diameter of the chest to suggest COPD, Likely atelectasis versus parenchymal scarring. No focal consolidation to suggest pneumonia. See radiology report for details. Laboratory studies showed leukocytosis without neutrophilia. No anemia. Initial CMP with sodium mildly low at 130, creatinine elevated at 2.1 (baseline appears to been around 1.5-1.6), BUN chronically elevated metabolic baseline at 60. Will give small IV fluid bolus of 500 L lactated ringer as this could be prerenal in the setting of his acute illness. Liver function testing within normal limits. Initial troponin 0.03. Will obtain repeat 3-hour troponin and repeat proBNP after fluids. COVID and flu testing is negative. Repeat troponin is negative at 0.02. Patient has improving renal function with creatinine now at 2.0. Patient is eager to leave emergency department if you feel that he is appropriate at this time. I did discuss with him his GITA recommended continuing to hydrate well over the next days and has follow-up with PCP to have him and his renal function is continuing to improve. Will also prescribe a Z-Mohan. Increase productive cough in the setting of possible COPD. Return precautions were given. All questions were answered. They demonstrated understanding and were in agreement with this plan. He was then discharged from the emergency department in stable condition. Critical Care Critical Care Time Critical Care Time: No
[2025-03-22] MEDS: RINGERS SOLUTION,LACTATED 500 ML 999 ML IV (18:10)
--- NOTE | 2025-03-22 18:46 | PC.NURSE ---
Per Pratik BEARD BMP order can be drawn with 2nd troponin
--- NOTE | 2025-03-22 18:58 | PC.NURSE ---
care handoff report given to Sydney Sosa RN
[2025-03-22 19:53] LABS: Anion Gap 13.3 mEq/L (5-15); Blood Urea Nitrogen 60 mg/dl (9-20); Calcium 9.2 mg/dl (8.4-10.2); Carbon Dioxide 31 mmol/L (22.0-30.0); Chloride 91 mmol/L (98-107); Creatinine Clearance Estimated 53 mL/min (50-200); Creatinine,Serum 2.00 mg/dl (0.66-1.25); Estimated Glomerular Filt Rate 34 ml/min (>60); GFR (African American) 41 ML/MIN (>60); Glucose 140 mg/dl (74-100); Potassium 4.3 mmoL/L (3.5-5.1); Sodium 131 mmol/L (136-145)
[2025-03-22] MEDS: AEROCHAMBER/OPTIHALER 1 UNIT MC (19:54)
[2025-03-22 20:05] LABS: Troponin I 0.02 ng/ml (0.00-0.034)
[2025-03-22] MEDS: ALBUTEROL-HFA 90MCG/PUFF INHALER 8GM 2 PUFF IH (20:41)
[2025-03-22 20:51] VITALS: BP 127/74; PULSE 77; RESP 20; TEMP 36.8; O2SAT 97
== END 2025-03-22 20:52 | disposition home or self-care (01) ==
PROVIDERS: Emergency Provider Student in an Organized Health Care Education/Training Program; PCP Family Medicine
DX: R07.9 Chest pain, unspecified (principal); R06.02 Shortness of breath; R11.2 Nausea with vomiting, unspecified; E87.1 Hypo-osmolality and hyponatremia; N17.9 Acute kidney failure, unspecified; R07.0 Pain in throat; R05.1 Acute cough
CPT/HCPCS: 71046; 80048; 80053; 84484; 85025; 87430; 87636; 93005; 99284; J7120

== ENCOUNTER 2025-04-06 09:59 | Outpatient (CLI) | payer MEDICARE, SELFPAY ==
--- NOTE | 2025-04-06 10:03 | XR_ITS ---
FINAL REPORT CLINICAL HISTORY: right foot pain x 1 day. no known injury. COMPARISON: None FINDINGS: RIGHT FOOT Three views demonstrate no acute fracture or dislocation. There are moderate hypertrophic changes at the first MTP joint. Subchondral sclerosis is noted. There is a moderate osteophyte at the insertion of the plantar fascia. No acute soft tissue abnormality is seen. IMPRESSION: Degenerative changes without acute bony abnormality. Reviewed, Interpreted and Dictated by Khang Franco MD Transcribed by Rosalina Martinez Authenticated and [facility]
--- OUTSIDE RECORDS SUMMARY | 2025-04-06 10:53 | XMS_ITS | Clinical Summary ---
Author Organization [facility] Address [address] [place] [address] Phone Care Team Providers Care Buyer Name Role Phone Renzo BEARD, Chuck Schaffer [ ] Conditions or Problems Problem Name Problem Code Onset Date Status Entry Date Provider Comment Standard Description Annotate Orchitis 288126072 (SNOMED CT) 06/03 Active 06/03 Renata Mello Orchitis Coronary artery disease, S/P CABG 05724972 (SNOMED CT) 06/03 Active 06/03 Renata Mello Coronary arteriosclerosis Skin tissue necrosis 36345986 (SNOMED CT) 06/03 Active 06/03 Renata Mello Skin necrosis DM Type II E11.9 (ICD-10-CM) 06/03 Active 06/03 Renata Mello Type 2 diabetes mellitus without complications Abscess/Cell ulitis, scrotal 13491154 (SNOMED CT) 06/03 Active 06/03 Renata Mello Abscess of scrotum Nicotine dependence, cigarettes 006635964 (SNOMED CT) 06/03 Active 06/03 Renata Mello Tobacco user Medications Medication Instructions Start Date Stop Date Generic Name [facility] Provider ZOFRAN 4 MG ORAL TABLET 1 tablet every 8 hours as needed ONDANSETRON HCL 04241748819 Huan Shah MS CONTIN 15 MG CR-TABS 1 tablet twice daily MORPHINE SULFATE [id number] Huan Shah JANUMET 50-1000 MG TABS 1 tablet twice daily SITAGLIPTIN-METFO RMIN HCL [id number] Huan Shah DESIPRAMINE HCL 25 MG TABS 1 tablet nightly DESIPRAMINE HCL [id number] [facility] COREG 25 MG TABS 1 tablet twice daily CARVEDILOL 13664128319 [facility] OMEPRAZOLE 40 MG CPDR 1 capsule daily OMEPRAZOLE [id number] [facility] ALTOPREV 40 MG [id number] 1 tablet daily LOVASTATIN [id number] [facility] LISINOPRIL-HYDROCH LOROTHIAZIDE 10-12.5 MG TABS 1 tablet twice daily LISINOPRIL-HYDROC HLOROTHIAZIDE 10012261360 [facility] FARXIGA 10 MG TABS 1 tablet daily DAPAGLIFLOZIN PROPANEDIOL [id number] [facility] CYCLOBENZAPRINE HCL 10 MG TABS 1 tablet 3 times daily as needed for spasms CYCLOBENZAPRINE HCL 51947532131 [facility] ADULT ASPIRIN REGIMEN 81 MG ORAL TABLET DELAYED RELEASE 1 tablet daily ASPIRIN [id number] [facility] PERCOCET 10-325 MG TABS 1 tablet every 4 hours as needed OXYCODONE-ACETAMI NOPHEN 79580321456 [facility] ADALAT CC 90 MG ORAL TABLET EXTENDED RELEASE 24 HOUR 1 tablet daily NIFEDIPINE 88003995589 [facility] CYMBALTA 60 MG ORAL CAPSULE DELAYED RELEASE PARTICLES 1 capsule daily DULOXETINE HCL [id number] [facility] ACIDOPHILUS 100 MG CAPS 1 capsule twice daily LACTOBACILLUS 00123062469 [facility] AVIDOXY 100 MG TABS 1 tablet twice daily DOXYCYCLINE MONOHYDRATE 49138068162 [facility] AMOXICILLIN-POT CLAVULANATE 875-125 MG TABS 1 tablet twice daily AMOXICILLIN-POT CLAVULANATE 34508042337 [facility] Medications Administered No information available. Allergies, [...]
--- OUTSIDE RECORDS SUMMARY | 2025-04-06 10:54 | XMS_ITS | Data Portability ---
Author Organization MARIANNE KHANH [facility] [place] [facility] Address [address] [place] [address] Care Team Providers Care Gold Plater Name Role Phone WILLIS SHRESTHA Primary Care [...] Plan: Arrange wound VAC change through the [facility] wound care nurse. Complete course of [...] Augmentin 875 mg-125 mg tablet 2019 020 [facility][id number], [address] [place], [phone], 1 11:00:44 Percocet 5 mg-325 mg tablet 2019 020 [facility][id number], [address] [place], [phone], 1 11:02:37 Augmentin 875 mg-125 mg tablet 2019 020 [facility][id number], [address] [place], [phone], 1 11:00:44 Percocet 5 mg-325 mg tablet 2019 020 [facility][id number], [address] [place], [phone], 1 11:02:37 Patient TargetsNo targets recorded. Patient InstructionsNo instructions recorded. Reason for Referral None Reported. Results Created Date Observation Date Name Description Value Unit Range Abnormal Flag Note LastModifiedBy Organization Detail LastModifiedTime 05/16/20 19 05/16/2019 urina lysis , dipst ick, auto Unknown Analyte Yellow Not Available [facility] [address] [place], [address], 05/16/2019 07:54:25 05/16/20 19 05/16/2019 urina lysis , dipst ick, auto Unknown Analyte Clear Not Available [facility] S[address] [place], [address], 05/16/2019 07:54:25 05/16/20 19 05/16/2019 urina lysis , dipst ick, auto Unknown Analyte 1.015 Not Available [facility] [address] [place], [address], 05/16/2019 07:54:25 05/16/20 19 05/16/2019 urina lysis , dipst ick, auto Unknown Analyte 1.003 - 1.035 Not Available [facility] [address] [place], [address], 05/16/2019 07:54:25 05/16/20 19 05/16/2019 urina lysis , dipst ick, auto Unknown Analyte 5.0 Not Available [facility] [address] [place] [address], [address], 05/16/2019 07:54:25 05/16/2005/16/2019 urina lysis , dipst ick, auto Unknown Analyte 5.0 - 8.0 Not Available [facility] [address] [place] [address], [address], 05/16/2019 07:54:25 05/16/2005/16/2019 urina lysis , dipst ick, auto Unknown Analyte Negati ve Not Available [facility] [address] [place] [address], [address], 05/16/2019 07:54:25 05/16/2005/16/2019 urina lysis , dipst ick, auto Unknown Analyte Negati ve Not Available [facility] [address] [place] [address], [address], 05/16/2019 07:54:25 05/16/2005/16/2019 urina lysis , dipst ick, auto Unknown Analyte Negati ve Not Available [facility] [address] [place] [address], [address], 05/16/2019 07:54:25 12/05/16/2019 urina lysis , dipst ick, auto Unknown Analyte Negati ve Not Available [facility] [address] [place], [address], 05/16/2019 07:54:25 05/16/2005/16/2019 urina lysis , dipst ick, auto Unknown Analyte Negtiv e Not Available [facility] [address] [place] [address], [address], 05/16/2019 07:54:25 05/16/2005/16/2019 urina lysis , dipst ick, auto Unknown Analyte Negati ve - Trace Not Available [facility] [address] [place] [address], [address], 05/16/2019 07:54:25 05/16/2005/16/2019 urina lysis , dipst ick, auto Unknown Analyte Normal Not Available [facility] [address] [place] [address], [address], 05/16/2019 07:54:25 05/16/2005/16/2019 urina lysis , dipst ick, auto Unknown Analyte Normal Not Available [facility] [address] [place] [address], [address], 05/16/2019 07:54:25 05/16/2005/16/2019 urina lysis , dipst ick, auto Unknown Analyte Negati ve Not Available [facility] [address], [address], 05/16/2019 07:54:25 05/16/2005/16/2019 urina lysis , dipst ick, auto Unknown Analyte Negati ve Not Available [facility] [address] [place] [address], [address], 05/16/2019 07:54:25 05/16/2005/16/2019 urina lysis , dipst ick, auto Unknown Analyte Normal Not Available [facility] [address] [place], [address], 05/16/2019 07:54:25 05/16/20 19 05/16/2019 urina lysis , dipst ick, auto Unknown Analyte Normal - 1mg/dl Not Available [facility] [place] [address] [place] [address], [address], 05/16/2019 07:54:25 05/16/20 19 05/16/2019 urina lysis , dipst ick, auto Unknown Analyte Negati ve Not Available [facility] [address] [place] [address], [address], 05/16/2019 07:54:25 05/16/2005/16/2019 urina lysis , dipst ick, auto Unknown Analyte Negati ve Not Available [facility] [address], [address], 05/16/2019 07:54:25 05/16/20 19 05/16/2019 urina lysis , dipst ick, auto Unknown Analyte Negati ve Not Available [facility] [address], [address], 05/16/2019 07:54:25 05/16/20 19 05/16/2019 urina lysis , dipst ick, auto Unknown Analyte Negati ve Not Available [facility] [address], [address], 05/16/2019 07:54:25 05/16/20 19 05/16/2019 urina lysis , dipst ick, auto Unknown Analyte Clean Catch Not Available [facility] [address], [address], 05/16/2019 07:54:25 05/16/20 19 05/16/2019 urina lysis , dipst ick, auto Unknown Analyte Automa carlos Not Available [facility] [address], [address], 05/16/2019 07:54:25 05/24/19 20 05/24/2019 urina lysis , dipst ick, auto Unknown Analyte Yellow Not Available [facility] [address] [place] [address], [address], 05/24/2019 10:02:15 05/24/19 20 05/24/2019 urina lysis , dipst ick, auto Unknown Analyte Clear Not Available [facility] [address] [place] [address], [address], 05/24/2019 10:02:15 05/24/1905/24/2019 urina lysis , dipst ick, auto Unknown Analyte 1.010 Not Available [facility] [address] [place] [address], [address], 05/24/2019 10:02:15 05/24/19 20 05/24/2019 urina lysis , dipst ick, auto Unknown Analyte 1.003 - 1.035 Not Available [facility] [address], [address], 05/24/2019 10:02:15 05/24/19 20 05/24/2019 urina lysis , dipst ick, auto Unknown Analyte 5.0 Not Available [facility] [address], [address], 05/24/2019 10:02:15 05/24/1905/24/2019 urina lysis , dipst ick, auto Unknown Analyte 5.0 - 8.0 Not Available [facility] [address], [address], 05/24/2019 10:02:15 05/24/19 20 05/24/2019 urina lysis , dipst ick, auto Unknown Analyte Negati ve Not Available [facility] [address], [address], 05/24/2019 10:02:15 05/24/19 20 05/24/2019 urina lysis , dipst ick, auto Unknown Analyte Negati ve Not Available [facility] [address], [address], 05/24/2019 10:02:15 05/24/19 20 05/24/2019 urina lysis , dipst ick, auto Unknown Analyte Negati ve Not Available [facility] [address], [address], 05/24/2019 10:02:15 05/24/1905/24/2019 urina lysis , dipst ick, auto Unknown Analyte Negtiv e Not Available [facility] [address], [address], 05/24/2019 10:02:15 05/24/19 20 05/24/2019 urina lysis , dipst ick, auto Unknown Analyte Negati ve - Trace Not Available [facility] [address], [address], 05/24/2019 10:02:15 05/24/1905/24/2019 urina lysis , dipst ick, auto Unknown Analyte Normal Not Available [facility] [address], [address], 05/24/2019 10:02:15 05/24/19 20 05/24/2019 urina lysis , dipst ick, auto Unknown Analyte Normal Not Available [facility] [address], [address], 05/24/2019 10:02:15 05/24/1905/24/2019 urina lysis , dipst ick, auto Unknown Analyte Negati ve Not Available [facility] [address], [address], 05/24/2019 10:02:15 05/24/19 20 05/24/2019 urina lysis , dipst ick, auto Unknown Analyte Negati ve Not Available [facility] [address] [place], [address], 05/24/2019 10:02:15 05/24/19 20 05/24/2019 urina lysis , dipst ick, auto Unknown Analyte Normal Not Available [facility] [address] [place] [address], [address], 05/24/2019 10:02:15 05/24/19 20 05/24/2019 urina lysis , dipst ick, auto Unknown Analyte Normal - 1mg/dl Not Available [facility] [address] [place] [address], [address], 05/24/2019 10:02:15 05/24/19 20 05/24/2019 urina lysis , dipst ick, auto Unknown Analyte Negati ve Not Available [facility] [address] [place] [address], [address], 05/24/2019 10:02:15 05/24/1905/24/2019 urina lysis , dipst ick, auto Unknown Analyte Negati ve Not Available [facility] [address] [place] [address], [address], 05/24/2019 10:02:15 05/24/1905/24/2019 urina lysis , dipst ick, auto Unknown Analyte Negati ve Not Available [facility] [address], [address], 05/24/2019 10:02:15 05/24/1905/24/2019 urina lysis , dipst ick, auto Unknown Analyte Negati ve Not Available [facility] [address] [place] [address], [address], 05/24/2019 10:02:15 05/24/1905/24/2019 urina lysis , dipst ick, auto Unknown Analyte Clean Catch Not Available [facility] [address] [place] [address], [address], 05/24/2019 10:02:15 05/24/19 20 05/24/2019 urina lysis , dipst ick, auto Unknown Analyte Visual Not Available [facility] [address] [place] [address], [address], 05/24/2019 10:02:15 06/06/1906/06/2019 urina lysis , dipst ick, auto Unknown Analyte Yellow Not Available [facility] [address], [address], 06/06/2019 07:36:23 06/06/1906/06/2019 urina lysis , dipst ick, auto Unknown Analyte Clear Not Available [address], [address], 06/06/2019 07:36:23 06/06/1906/06/2019 urina lysis , dipst ick, auto Unknown Analyte 1.005 Not Available [address], [address], 06/06/2019 07:36:23 06/06/1906/06/2019 urina lysis , dipst ick, auto Unknown Analyte 6.0 Not Available [facility] [address], [address], 06/06/2019 07:36:23 06/06/1906/06/2019 urina lysis , dipst ick, auto Unknown Analyte Negati ve Not Available [address], [address], 06/06/2019 07:36:23 06/06/1906/06/2019 urina lysis , dipst ick, auto Unknown Analyte Negati ve Not Available [facility] [address] [place], [place], [address], 06/06/2019 07:36:23 06/06/19 20 06/06/2019 urina lysis , dipst ick, auto Unknown Analyte Negtiv e Not Available [facility] [address] [place] [address], [address], 06/06/2019 07:36:23 06/06/19 20 06/06/2019 urina lysis , dipst ick, auto Unknown Analyte 250 mg/dl Not Available [facility] [address], [address], 06/06/2019 07:36:23 06/06/1906/06/2019 urina lysis , dipst ick, auto Unknown Analyte Negati ve Not Available [facility] [address], [address], 06/06/2019 07:36:23 06/06/1906/06/2019 urina lysis , dipst ick, auto Unknown Analyte Normal Not Available [facility] [address], [address], 06/06/2019 07:36:23 06/06/19 20 06/06/2019 urina lysis , dipst ick, auto Unknown Analyte Negati ve Not Available [facility] [address], [address], 06/06/2019 07:36:23 06/06/19 20 06/06/2019 urina lysis , dipst ick, auto Unknown Analyte Negati ve Not Available [facility] [address], [address], 06/06/2019 07:36:23 06/06/19 20 06/06/2019 urina lysis , dipst ick, auto Unknown Analyte Clean Catch Not Available [facility] [address], [address], 06/06/2019 07:36:23 06/06/19 20 06/06/2019 urina lysis , dipst ick, auto Unknown Analyte Automa carlos Not Available [address], [address], 06/06/2019 07:36:23 06/29/19 20 06/29/2019 urina lysis , dipst ick, auto Unknown Analyte Yellow Not Available [address], [address], 06/29/2019 10:49:43 06/29/1906/29/2019 urina lysis , dipst ick, auto Unknown Analyte Clear Not Available [address], [address], 06/29/2019 10:49:43 06/29/19 20 06/29/2019 urina lysis , dipst ick, auto Unknown Analyte 1.015 Not Available [address], [address], 06/29/2019 10:49:43 06/29/19 20 06/29/2019 urina lysis , dipst ick, auto Unknown Analyte 1.003 - 1.035 Not Available [address], [address], 06/29/2019 10:49:43 06/29/19 20 06/29/2019 urina lysis , dipst ick, auto Unknown Analyte 5.0 Not Available [address], [address], 06/29/2019 10:49:43 06/29/19 20 06/29/2019 urina lysis , dipst ick, auto Unknown Analyte 5.0 - 8.0 Not Available [address], [address], 06/29/2019 10:49:43 06/29/19 20 06/29/2019 urina lysis , dipst ick, auto Unknown Analyte Negati ve Not Available [facility] [address], [address], 06/29/2019 10:49:43 06/29/19 20 06/29/2019 urina lysis , dipst ick, auto Unknown Analyte Negati ve Not Available [facility] [address], [address], 06/29/2019 10:49:43 06/29/19 20 06/29/2019 urina lysis , dipst ick, auto Unknown Analyte Negati ve Not Available [facility] [address], [address], 06/29/2019 10:49:43 06/29/19 20 06/29/2019 urina lysis , dipst ick, auto Unknown Analyte Negati ve Not Available [facility] [address], [address], 06/29/2019 10:49:43 06/29/19 20 06/29/2019 urina lysis , dipst ick, auto Unknown Analyte Negtiv e Not Available [facility] [address], [address], 06/29/2019 10:49:43 06/29/19 20 06/29/2019 urina lysis , dipst ick, auto Unknown Analyte Negati ve - Trace Not Available [facility] [address], [address], 06/29/2019 10:49:43 06/29/19 20 06/29/2019 urina lysis , dipst ick, auto Unknown Analyte Normal Not Available [facility] [address], [address], 06/29/2019 10:49:43 06/29/19 20 06/29/2019 urina lysis , dipst ick, auto Unknown Analyte Normal Not Available [facility] [address] [place], [address], 06/29/2019 10:49:43 06/29/19 20 06/29/2019 urina lysis , dipst ick, auto Unknown Analyte Negati ve Not Available [facility] [address] [place] [address], [address], 06/29/2019 10:49:43 06/29/19 20 06/29/2019 urina lysis , dipst ick, auto Unknown Analyte Negati ve Not Available [facility] [address], [address], 06/29/2019 10:49:43 06/29/19 20 06/29/2019 urina lysis , dipst ick, auto Unknown Analyte Normal Not Available [facility] [address] [place] [address], [address], 06/29/2019 10:49:43 06/29/19 20 06/29/2019 urina lysis , dipst ick, auto Unknown Analyte Normal - 1mg/dl Not Available [facility] [address] [place] [address], [address], 06/29/2019 10:49:43 06/29/19 20 06/29/2019 urina lysis , dipst ick, auto Unknown Analyte Negati ve Not Available [facility] [address], [address], 06/29/2019 10:49:43 06/29/19 20 06/29/2019 urina lysis , dipst ick, auto Unknown Analyte Negati ve Not Available [facility] [address], [address], 06/29/2019 10:49:43 06/29/19 20 06/29/2019 urina lysis , dipst ick, auto Unknown Analyte Negati ve Not Available [facility] [address] [place], [address], 06/29/2019 10:49:43 06/29/19 20 06/29/2019 urina lysis , dipst ick, auto Unknown Analyte Negati ve Not Available [facility] [address] [place], [address], 06/29/2019 10:49:43 06/29/19 20 06/29/2019 urina lysis , dipst ick, auto Unknown Analyte Clean Catch Not Available [facility] [address] [place], [address], 06/29/2019 10:49:43 06/29/19 20 06/29/2019 urina lysis , dipst ick, auto Unknown Analyte Automa carlos Not Available [facility] [address] [place], [address], 06/29/2019 10:49:43 Result Notes None recorded. 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 Active 2015 From Automated Load;Prov ider: Dorian Hurd III tatus: Active Not Available [facility] 6 09:39:57 Otitis externa 1174714 Active 2015 Provider: Dorian Hurd III tatus: Active Not Available [facility] 6 09:39:57 Otitis externa of right ear 56343508295 15081 Active 2015 From Automated Load;Prov ider: Dorian Hurd III tatus: Active Not Available [facility] 6 09:39:57 Otorrhea 24963854 Active 2015 From Automated Load;Prov ider: Dorian Hurd III tatus: Active Not Available [facility] 6 09:39:57 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 Procedures Surgical History Date Name Laterality Status Provider Name and Address Organization Details Recorded Time 06/20/19 20 repair of scrotum completed CLAUDY LUQUE MD [address] [place] [address], [address], [facility] 06/20/2019 16:56:31 05/29/19 20 Scrotal surgery completed CLAUDY LUQUE MD [address] [place] [address], [facility] 06/20/2019 16:57:39 Heart Surgery completed Fani Huffman [facility] 02/08/2019 16:35:08 Hernia Repair completed CLAUDY LUQUE MD [address] [place] [address], [address], [facility] 04/04/2019 14:53:49 Orchiectomy completed CLAUDY LUQUE MD [address] [place] [address], [facility] 04/04/2019 14:54:02 Hydrocele Repair completed CLAUDY LUQUE MD [address] [place] [address], [address], [facility] 04/04/2019 14:54:16 Mastoidectomy completed Janet Stoll [facility] 12/14/2020 11:10:11 Imaging Results None recorded. Procedure Notes None recorded. Medical Equipment None Reported. Allergies Allergen ID Allergen Name Allergen Category Reaction Reaction Severity Criticality Documentation Date Start Date Code Code System Note Provider Name and Address Organization Details Recorded Time 845500 acetamino phen / oxycodone medicatio n nausea Not available Not available 02/08/2019 03719 3 RxNorm He can take 5 mg dose CLAUDY LUQUE MD [address] [place] [address], [address] , [facility] 9 15:06:12 721229 Bactrim medicatio n dizziness respirato ry distress Not available Not available Not available 02/11/2019 56214 9 RxNorm CLAUDY LUQUE MD [address] [place], [address] [place] [address] 9 07:45:25 Medications Name Sig Start Date [...] ne propionat e 50 mcg/actua tion nasal spray,[facility] 12/14 completed Not Available Not Available Not Available metformin ER 500 mg tablet,ex tended release 24 hr 12/14 completed Not Available Not Available Not Available ezetimibe 10 mg tablet TAKE 1 TABLET BY MOUTH ONCE DAILY 12/14 completed Not Available Not Available Not Available Ciprodex 0.3 %-0.1 % ear drops,[facility] 02/08 completed Not Available Not Available Not [...] YOU DIDN T RECEIVE INSTRUCT IONS CALL [phone] 12/14 completed Not Available Not Available Not [...] Updated DateTime 05/24/2019 177.8 cm 33.9 kg/m2 666006.8 g 86 /min [facility] 05/24/2019 10:02:36 Date Recorded Body height Body mass index (BMI) Body weight Provider Name and Address Organization Details Last Updated DateTime 06/06/2019 177.8 cm 33.9 kg/m2 283523.8 g Sarah Mora [facility] 06/06/2019 07:36:09 Date Recorded Body height Body mass index (BMI) Body weight Heart rate Provider Name and Address Organization Details Last Updated DateTime 06/13/2019 177.8 cm 33.9 kg/m2 975735.8 g 86 /min [facility] 06/13/2019 07:50:01 Date Recorded Body height Body mass index (BMI) Body weight Provider Name and Address Organization Details Last Updated DateTime 06/29/2019 177.8 cm 33.9 kg/m2 836439.8 g [facility] 06/29/2019 10:49:27 Date Recorded Body weight Body temperature Body mass index (BMI) Body height Heart rate Systolic And Diastolic Provider Name and Address Organization Details Last Updated DateTime 1 81960.3 2 g 97.7 [degF] 31.6 kg/m2 177.8 cm 75 /min 131/69 mm[Hg] Janet Stoll [facility] 11:09:26 Social History Question Answer Notes LastModified by Organizat ion Details LastModified Time Tobacco Smoking Status Current Every Day Smoker Janet Hewitts [facility] 12/14/2020 11:04:32 Marital Status Informatio n [...] ICD10 Code Diagnosis IMO Codes Diagnosis Note [id number] CLAUDY LUQUE MD UROLOGY [facility] [address] [place] [address] 02/08/2019 15:22:29 02/09/2019 07:11:35 Epididymitis 00497991 N45.1 Hydrocele 60257344 N43.3 [id number] CLAUDY LUQUE MD UROLOGY [address] [place] [address] 03/01/2019 07:35:36 03/01/2019 08:32:45 Epididymitis 68452138 N45.1 Hydrocele 65040067 N43.3 [id number] CLAUDY LUQUE MD SURGERY SCHEDULE [address] [place] [address] 1 04/04/2019 11:38:23 04/04/2019 11:39:05 Hydrocele of testis 79002143 N43.3 [id number] CLAUDY LUQUE MD UROLOGY [facility] [address] [place] [address] 1 04/22/2019 07:42:36 04/22/2019 08:20:59 Epididymitis 27480556 N45.1 Hydrocele 70612555 N43.3 Hematoma of scrotum 8996 6002 M79.81 [id number] CLAUDY LUQUE MD UROLOGY [facility] [address] [place] [address] 1 05/16/2019 07:33:42 05/16/2019 08:55:46 Hydrocele 36812717 N43.3 Hematoma of scrotum 8996 6002 M79.81 Orchitis a nd epididymitis 889054361 N45.3 [id number] CLAUDY LUQUE MD UROLOGY [facility] [address] [place] [address] 1 05/24/2019 09:09:43 05/24/2019 10:36:10 Orchitis and epididymitis 562030097 N45.3 Hydrocele 74609575 N43.3 Hematoma of scrotum 8996 6002 M79.81 [id number] CLAUDY LUQUE MD UROLOGY [facility] [address] [place] [address] 1 06/06/2019 07:34:58 06/06/2019 08:50:46 Orchitis and epididymitis 121188077 N45.3 Abscess of scrotum 30894 006 N49.2 [id number] CLAUDY LUQUE MD UROLOGY [facility] [address] [place] [address] 1 06/13/2019 07:45:46 06/13/2019 08:18:58 Orchitis and epididymitis 818498048 N45.3 Abscess of scrotum 94858 006 N49.2 [id number] CLAUDY LUQUE MD SURGERY SCHEDULE [address] [place] [address] [place] [address] 06/20/2019 13:07:55 06/20/2019 13:09:42 Disorder of scrotum 42745040 N50.9 Orchitis a nd epididymitis 112518926 N45.3 [id number] CLAUDY LUQUE MD UROLOGY [address] [place] [address] 06/29/2019 10:43:58 06/29/2019 12:20:35 Orchitis and epididymitis 883585147 N45.3 Abscess of scrotum 37265 006 N49.2 Health Concerns Section Related Observation LastModified by Organization Detai ls LastModified Time None Recorded Concern Status LastModified by Organization Details LastModified Time None Recorded Advance Directives Directive None Recorded Payers Insurance Date Sequence Insurance Name Policy Number Policy Burkett Covered Member ID Burkett Member ID Guarantor Name 12/11/2020 1 [place] Cristobal Vargas [id number] Cristobal Vargas 07/28/2018 1 *SELF PAY* [...] with Augmentin for epididymoorchitis. 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 CLAUDY LUQUE MD [address] [place], [place] [address], [phone], [facility] 05/24/2019 10:21:51 06/06/2019 text/html Diagnoses: [...] of a wound VAC. 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 CLAUDY LUQUE MD [address] [place] [address], [phone], [facility] 06/06/2019 08:34:31 06/13/2019 text/html Diagnoses: [...] urgency, dysuria, or decreased flow. He saw wi and was prescribed Bactrim DS 02/08/2019, he [...] of a wound VAC. 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 CLAUDY LUQUE MD [address] [place], [phone], [facility] 06/13/2019 08:15:57 06/29/2019 text/html Diagnoses: [...] the scrotal wound 06/20/2019. 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 HPI: The patient is here with his Angelic for follow-up after closure of the scrotal wound last week. He has been taking Augmentin. He is on chronic narcotics. He went to the emergency room last night for scrotal pain. He denies voiding trouble. CLAUDY LUQUE MD [address] [facility] [place], [phone], [facility] 06/29/2019 11:32:37
[2025-04-06 15:23] LABS: Hemoglobin A1C 9.1 % (4.0-6.0)
[2025-04-06 15:28] LABS: Hematocrit 44.0 % (42.0-52.0); Hemoglobin 14.0 g/dL (14.1-18.0); Immature Granulocytes % 0.6 %; Mean Corpuscular HGB Conc 31.8 g/dL (31.8-35.4); Mean Corpuscular Hemoglobin 29.2 pg (27.0-31.2); Mean Corpuscular Volume 91.9 fl (80-94); Nucleated Red Blood Cells % 0 %; Platelet Count 184 K/mm3 (142-424); Red Blood Count 4.79 M/mm3 (4.60-6.20); Red Cell Distribution Width-SD 55.1 fL; White Blood Count 14.6 K/mm3 (4.8-10.8)
[2025-04-06 15:53] LABS: Alanine Aminotransferase 17 U/L (12-78); Albumin Level 4.5 g/dl (3.5-5.0); Albumin/Globulin Ratio 1.6 (1.1-1.8); Alkaline Phosphatase 126 U/L (38-126); Anion Gap 15.8 mEq/L (5-15); Aspartate Amino Transferase 19 U/L (17-59); Bilirubin,Total 0.5 mg/dl (0.2-1.3); Blood Urea Nitrogen 42 mg/dl (9-20); Calcium 9.7 mg/dl (8.4-10.2); Carbon Dioxide 22 mmol/L (22.0-30.0); Chloride 100 mmol/L (98-107); Creatinine,Serum 1.40 mg/dl (0.66-1.25); Estimated Glomerular Filt Rate 51 ml/min (>60); GFR (African American) 62 ML/MIN (>60); Globulin 2.9 g/dL (1.3-3.2); Glucose 276 mg/dl (74-100); Potassium 4.8 mmoL/L (3.5-5.1); Sodium 133 mmol/L (136-145); Total Protein,Serum 7.4 g/dl (6.3-8.2); Uric Acid 8.9 mg/dl (3.5-8.5)
== END 2025-04-06 23:59 | disposition home or self-care (01) ==
LOC: RAD 10:00
PROVIDERS: PCP Family Medicine; Visit Provider Family Medicine
DX: M19.071 Primary osteoarthritis, right ankle and foot (principal); M85.871 Other specified disorders of bone density and structure, right ankle and foot; M10.9 Gout, unspecified; E11.22 Type 2 diabetes mellitus with diabetic chronic kidney disease; N18.9 Chronic kidney disease, unspecified
CPT/HCPCS: 73630; 80053; 83036; 84550; 85025